=== PATIENT | female | born 2000 | race Caucasian/White ===

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

== ENCOUNTER 2023-07-11 01:42 | Emergency (ER) | payer MEDICAID, SELFPAY ==
[2023-07-11 01:46] VITALS: BP 152/112; PULSE 113; RESP 22; TEMP 36.4; O2SAT 100; BMI 49.0
--- NOTE | 2023-07-11 01:59 | EDS_ITS ---
HPI HPI - Psych History of Present Illness Chief Complaint: Mental Health Detail of Chief Complaint: Anxiety and panic attack. Informant: patient Onset/Context/Timing Onset: Today and Hours Context: Gradual Onset Timing: Continuous Current Severity: Mild Maximum Severity: Moderate Narrative Narrative: 22-year-old female past medical history of panic attacks and anxiety. States that she is currently staying in a women's correction. Tonight while cooking she started getting anxious. Started having numbness and tingling of both her upper and lower extremities and hyperventilating. She says she started to calm down now. She has had prior episodes like this before. Prior similar symptoms: Yes Recent Illness/Hospitalization: No PFSH PFSH Medical History PTSD (post-traumatic stress disorder) Depression Anxiety Home Medications ?Medication ?Instructions ?Recorded ?Last Taken ?Type albuterol sulfate 90 mcg/actuation 1 - 2 puff inhalation Q4H PRN Sob 12/04/17 Unknown History aerosol inhaler (Ventolin HFA) &/Or Wheezing albuterol sulfate 2.5 mg/3 mL 2.5 mg (3 mL) inhalation Q4H PRN 07/01/18 Unknown Rx (0.083 %) solution for nebulization #25 vials albuterol sulfate 90 mcg/actuation 6.7 gm IH Q2H PRN PRN Wheezing ##1 07/01/18 Unknown Rx aerosol inhaler prednisone 20 mg tablet 60 mg (3 x 20 mg) PO DAILY #15 tabs 12/10/18 Unknown Rx Allergy/AdvReac Type Severity Reaction Status Date / Time Penicillins (PCN) Allergy Hives Verified 07/11/23 01:46 Social History Smoking Status: Current every day smoker tobacco type: cigarettes ROS ROS ED ROS Narrative Denies recent illness. Review of Systems ROS Unobtainable: Denies due to encephalopathy Constitutional Constitutional ED: Denies chills or fever(s) Eyes Eyes: Denies blurry vision ENT ENT ED: Denies ear pain Cardiovascular Cardiovascular: Denies chest pain Respiratory/Chest Respiratory/Chest: Denies cough or dyspnea Gastrointestinal Gastrointestinal: Denies abdominal pain Genitourinary Genitourinary ED: Denies dysuria or hematuria Musculoskeletal Musculoskeletal: Denies arthralgias Integumentary Denies abscess Neurologic Neurologic: Denies headache(s) Psychiatric Psychiatric: Reports anxiety Endocrine Endocrinology: Denies polydipsia Hematologic/Lymphatic Hematologic/Lymphatic: Denies easy bleeding Allergic/Immunologic Allergic/Immunologic ED: Denies mouth swelling, tongue swelling or urticaria EXAM Physical Exam Narrative Exam Narrative: Well-appearing 22-year-old female. Vital signs stable afebrile. Initial blood pressure elevated 152/112. I suspect secondary anxiety. H EENT exam unremarkable. Pupils round reactive light. No trauma. Moist weeks membranes. Neck nontender. No lymphadenopathy. Lungs clear to auscultation bilaterally. Heart tachycardic rate of 110 no murmur. Chest wall and ribs nontender. Abdomen soft nontender. Moving all 4 extremities. 5 out of 5 commercial lines sales executive strength bilaterally. Dorsi plantarflexion intact. Nontender. No edema. Back nontender. Neurologically she is awake and alert with no focal motor deficits. Answering questions following commands. She is anxious. Const Vital Signs: 07/11/23 01:46 Temperature 97.5 F L Temperature Source Temporal Pulse Rate 113 H Respiratory Rate 22 H Blood Pressure 152/112 H Blood Pressure Mean 125 Pulse Ox 100 Oxygen Delivery Method Room Air Positive well nourished and well developed; Negative for cachectic, contractures or unkempt General Appearance ED: well developed and NAD; Negative for unkempt, cachectic, contractures or pallor Nutritional Appearance: Negative for cachectic HEENT Reports moist mucous membranes normocephalic and atraumatic; Negative for trauma or tenderness Eyes EOMs intact bilaterally Neck no lymphadenopathy, supple and no JVD General: Negative for tenderness Resp normal respiratory effort and clear to auscultation bilaterally Effort and Inspection: Negative for retractions Auscultation: Negative for rales, rhonchi, wheezes or diminished lung sounds Cardio S1 normal heart sound, S2 normal heart sound and no murmurs Rate: tachycardic; Negative for regular rate or bradycardia Rhythm: regular rhythm; Negative for abnormal rhythm GI non-tender, non-distended and no masses Inspection: Negative for abdominal distention Auscultation: normoactive bowel sounds Palpation: soft; Negative for tender, guarding, hepatomegaly, splenomegaly or mass Bladder / Kidney Exam: No other Back/Spine no CVA tenderness General Back: Negative for CVA tenderness Cervical Spine: Negative for cervical spine tenderness Thoracic Spine / Upper Back: Negative for thoracic spinal tenderness Lumbar Spine / Lower Back: Negative for lumbar spinal tenderness Coccyx: Negative for other Extremity normal to inspection General Extremety ED: Negative for edema or tenderness General Extremity: Negative for edema Neuro oriented x3 and CN's II-XII intact bilaterally Sensorium / Orientation: alert, oriented to person, oriented to place and oriented to time; Negative for orientation impaired, confused, lethargic or stuporous Motor Exam: strength 5/5 throughout Psych mental status grossly normal, thought process normal, cooperative, affect normal and speech normal Appearance: grossly normal; Negative for unkempt Attitude: engaged and No paranoid Activity / Motor Behavior: appropriate eye contact Speech: normal speech Mood & Affect: anxious Thought Process: normal thought process Thought Content: normal thought content Attention / Concentration: attention grossly intact Memory / Cognition: memory grossly intact Insight: insight good Judgement: judgement good Skin General Skin Exam: Negative for jaundice or pallor Lesions: no lesions Rashes: no rashes Trauma: Negative for abrasion Wounds: Negative for amputation MDM MDM MDM Narrative Medical decision making narrative: 22-year-old female history of PTSD anxiety. Having panic attack. She is calming down. Exam is benign. She will be given 1 dose of p.o. Ativan and reassess. I do not think she needs any labs, other workup or imaging. Repeat exam at 2:40 AM patient's anxiety is improving. She is resting comfortable. She is having mild nausea I offered her some Zofran she preferred Protonix to start she was having reflux she will be given that discharged home. Currently there is young male at bedside speaking with her. She is comfortable being discharged home. History & Record Review Discussion w/independent historian: Patient Additional record(s) reviewed:: Prior inpatient record, Prior outpatient record, Prior ED visit and Prior labs Discharge Plan Triage Chief Complaint: Mental Health ED Provider: Tree Crowe Dx/Rx/DC Orders Clinical Impression: Anxiety, Panic attack Instructions: ED Panic Attack Prescriptions: No Action albuterol sulfate [Ventolin HFA] 90 MCG HFA aerosol inhaler 1 - 2 puff inhalation Q4H MDD S PRN (Reason: Sob &/Or Wheezing) albuterol sulfate 6.7 GM HFA aerosol inhaler 6.7 gm IH Q2H PRN PRN (Reason: Wheezing) Qty: 1 1RF albuterol sulfate 2.5 MG/3 ML solution for nebulization 2.5 mg inhalation Q4H PRN Qty: 25 0RF Rx Instructions: Use q4 hours and PRN for wheezing prednisone 20 MG tablet 60 mg PO DAILY Qty: 15 0RF Rx Instructions: With food Primary Care Provider: Tiffany Montana NP Referrals: Counseling,Center [Group of Physicians] - As Needed Tiffany Montana NP, APPLICATION SYSTEMS ARCHITECT-C [Primary Care Provider] - As Needed Activity Restrictions/Additional Instructions: Follow-up with either your primary care provider or the counseling center for evaluation for anxiety. Print Language: Cameroonian Disposition Disposition: Home, Self Care
[2023-07-11] MEDS: LORazepam 1 MG Tablet PO (02:02)
[2023-07-11 02:44] VITALS: BP 135/78; PULSE 93; RESP 18; TEMP 36.6; O2SAT 100
[2023-07-11] MEDS: Pantoprazole Sodium 40 MG Tablet PO (02:48)
== END 2023-07-11 02:50 | disposition home or self-care (01) ==
PROVIDERS: Emergency Provider Emergency Medicine; PCP Nurse Practitioner Primary Care; Visit Provider Emergency Medicine
DX: F41.0 Panic disorder [episodic paroxysmal anxiety] (principal); R06.4 Hyperventilation; F32.A Depression, unspecified; F17.210 Nicotine dependence, cigarettes, uncomplicated; Z79.899 Other long term (current) drug therapy
CPT/HCPCS: 99283; 99285

== ENCOUNTER 2023-07-12 06:24 | Emergency (ER) | payer MEDICAID, SELFPAY ==
[2023-07-12 06:24] VITALS: BP 162/121; PULSE 120; RESP 15; TEMP 35.9; O2SAT 98; BMI 48.8
[2023-07-12] MEDS: chlordiazePOXIDE 25 MG Capsule PO (07:19)
--- NOTE | 2023-07-12 08:28 | EDS_ITS ---
HPI History of Present Illness Chief Complaint: Anxiety Informant: patient Narrative Narrative: Patient is a 22-year-old female with past medical history of anxiety and depression as well as PTSD. She was seen yesterday for similar complaint and at that time was given Ativan which helped improve her symptoms and she was discharged. Patient states that since returning back to the [facility] where she is staying she is had recurrence of symptoms such as a sensation that something bad is going to happen as well as acid reflux and she has had bouts of nausea and feels she is dehydrated. She is concerned about potential alcohol withdrawal as well but will not offer how much she drinks or how long it has been since her last alcohol ingestion PFSH PFS Medical History PTSD (post-traumatic stress disorder) Depression Anxiety Home Medications ?Medication ?Instructions ?Recorded ?Last Taken ?Type albuterol sulfate 90 mcg/actuation 1 - 2 puff inhalation Q4H PRN Sob 12/04/17 Unknown History aerosol inhaler (Ventolin HFA) &/Or Wheezing albuterol sulfate 2.5 mg/3 mL 2.5 mg (3 mL) inhalation Q4H PRN 07/01/18 Unknown Rx (0.083 %) solution for nebulization #25 vials albuterol sulfate 90 mcg/actuation 6.7 gm IH Q2H PRN PRN Wheezing ##1 07/01/18 Unknown Rx aerosol inhaler hydroxyzine HCl 25 mg tablet 25 mg PO 4X/DAY PRN anxiety #40 07/12/23 Unknown Rx tabs Allergy/AdvReac Type Severity Reaction Status Date / Time Penicillins (PCN) Allergy Hives Verified 07/12/23 06:24 Social History Smoking Status: Current every day smoker tobacco type: cigarettes ROS ROS ED Constitutional Constitutional ED: Denies chills or fever(s) ENT ENT ED: Reports sore throat Cardiovascular Cardiovascular: Reports racing heartbeat; Denies chest pain Respiratory/Chest Respiratory/Chest: Denies cough or dyspnea Gastrointestinal Gastrointestinal: Reports nausea; Denies abdominal pain, diarrhea or vomiting Genitourinary Genitourinary ED: Denies dysuria Musculoskeletal Musculoskeletal: Reports myalgias Integumentary Denies rash Neurologic Neurologic: Denies headache(s) Psychiatric Psychiatric: Reports anxiety and depression; Denies suicidal ideation or suicidal thoughts Hematologic/Lymphatic Hematologic/Lymphatic: Denies easy bleeding or easy bruising EXAM Physical Exam Const Vital Signs: 07/12/23 06:24 Temperature 96.7 F L Temperature Source Temporal Pulse Rate 120 H Respiratory Rate 15 Blood Pressure 162/121 H Blood Pressure Mean 134 Pulse Ox 98 Oxygen Delivery Method Room Air Positive well nourished, well developed and obese General Appearance ED: well developed; Negative for pallor Nutritional Appearance: obese HEENT Reports dry mucous membranes HEENT Narrative: Mucous membranes are dry and tacky with out tongue or lip swelling oral lesions airway edema or compromise No secondary findings in the posterior pharynx to suggest infection Mouth ED: Yes dry mucous membranes Mouth: dry mucous membranes Eyes PERRL and EOMs intact bilaterally General Eye ED: Negative for scleral icterus Neck supple Neck Narrative: No nuchal rigidity or meningeal signs noted Resp normal respiratory effort and clear to auscultation bilaterally Cardio regular rhythm Rate: tachycardic and other Other Details: Tachycardic rate with regular rhythm No murmurs rubs or gallops Radial and carotid pulses are equal and symmetric GI normal to inspection, nondistended, normoactive bowel sounds, non-tender and non-distended GI Narrative: No voluntary guarding or rigidity or pulsatile mass or fluid wave Auscultation: normoactive bowel sounds Palpation: soft Back/Spine no CVA tenderness Extremity normal to inspection Extremity Narrative: No asymmetric edema no pitting edema negative Homans' sign bilaterally Neuro oriented x3, CN's II-XII intact bilaterally and no sensory deficits noted Sensorium / Orientation: alert Motor Exam: strength 5/5 throughout Psych Psych Narrative: Patient has a nervous/anxious affect without homicidal or suicidal ideation Skin no rashes or lesions noted and skin turgor normal General Skin Exam: Negative for jaundice or pallor MDM MDM MDM Narrative Medical decision making narrative: Patient arrived to the ER hypertensive and tachycardic but was visibly anxious. She had been seen approximately 24 hours ago for similar complaint and had improvement with Ativan. However as she states the symptoms have returned and she is hypertensive and tachycardic there is possibility for acute blood loss anemia versus electrolyte abnormality or acute kidney injury as the cause of her symptoms. She has not had chest pain she does not have pleuritic chest pain and therefore I do not feel there is a need for a D-dimer she does not have any sign s of respiratory distress and her pulse ox is 90% on room air so I feel no need for chest x-ray. Oral Librium was ordered based on report of potential alcohol withdrawal and Ativan was ordered as well for her anxiety. Patient was also ordered a liter of fluid based on her history and exam. Despite multiple IV attempts 1 could not be established and therefore she was given IM Ativan to help with her anxiety status and laboratory was consulted to draw blood to check for the above changes. At this time she is not homicidal or suicidal she has a CIWA score 5 going against moderate to severe alcohol withdrawal. Her physical exam suggest just mild dehydration. Therefore if her labs do not show signs of severe electro abnormality or acute kidney injury I do not feel there is need for evaluation by psychiatry as she denies homicidal or suicidal ideation and she can be discharged home with symptomatic medications At this time the laboratory studies are still pending so the patient will be signed out to the day physician Dr. Heard Discharge Plan Triage Chief Complaint: Anxiety ED Provider: Daniel Herrera Dx/Rx/DC Orders Clinical Impression: Anxiety, Post traumatic stress disorder Instructions: ED Anxiety Reaction Prescriptions: New hydroxyzine HCl 25 mg tablet 25 mg PO 4X/DAY PRN (Reason: anxiety) Qty: 40 0RF No Action albuterol sulfate [Ventolin HFA] 90 MCG HFA aerosol inhaler 1 - 2 puff inhalation Q4H MDD S PRN (Reason: Sob &/Or Wheezing) albuterol sulfate 6.7 GM HFA aerosol inhaler 6.7 gm IH Q2H PRN PRN (Reason: Wheezing) Qty: 1 1RF albuterol sulfate 2.5 MG/3 ML solution for nebulization 2.5 mg inhalation Q4H PRN Qty: 25 0RF Rx Instructions: Use q4 hours and PRN for wheezing Primary Care Provider: Tiffany Montana NP Referrals: Tiffany Montana NP, [employer] [Primary Care Provider] - Print Language: Upper Sorbian Disposition Disposition: Home, Self Care
[2023-07-12] MEDS: LORazepam 2 MG/ML Syringe IM (08:30)
[2023-07-12 08:37] LABS: Absolute Lymphocyte Count 1.78 X10^3/uL (0.83-4.51); Basophil# 0.04 X10^3/uL; Basophil% 0.5 % (0-1); Eosinophil# 0.07 X10^3/uL; Eosinophils% 0.9 % (0-5); Hematocrit 50.7 % (37-47); Hemoglobin 16.7 g/dL (12.0-15.0); Lymphocyte # 1.78 X10^3/ul (0.83-4.51); Lymphocyte % 23.5 % (19-41); Mean Corp Hgb Conc 32.9 g/dL (32-36); Mean Corpuscular Hgb 31.3 pg (27.0-32.0); Mean Corpuscular Volume 94.9 fL (81-99); Mean Platelet Vol. 10.4 fl (6.2-12.0); Monocyte# 0.68 X10^3/uL; NRBC Flagged by Analyzer 0 % (0-5); Neutrophil # 4.97 X10^3/uL (2.7-7.7); Neutrophil % 65.8 % (47-70); Platelet Count 301 K/mm3 (150-450); RBC Distribution Width CV 13.2 % (11.6-14.6); RBC Distribution Width SD 45.8 fl (35.1-43.9); Red Blood Count 5.34 M/mm3 (4.2-5.4); White Blood Count 7.6 K/mm3 (4.4-11.0)
[2023-07-12 08:50] LABS: Internal QC Validated? YES +Cl - CLEAR BKGD; Pregnancy, Serum, hCG Quali. NEGATIVE Negative
[2023-07-12 09:00] LABS: Anion Gap 13 (5-15); BUN 3 mg/dL (7-18); BUN/Creat Ratio 5.4 RATIO (10-20); Calcium,Total 9.3 mg/dL (8.5-10.1); Chloride 105 mmol/L (98-107); Creatinine, Serum 0.56 mg/dL (0.55-1.02); EST Glomerular Filtration Rate 143 mL/min (>60); Est Glom Filt Rate - Afr Amer 173 mL/min (>60); Estimated Creatinine Clearance 186.37 ml/min; Glucose 96 mg/dL (74-106); Magnesium 1.6 mg/dL (1.6-2.6); Potassium 2.6 mmol/L (3.5-5.1); Sodium Level 138 mmol/L (136-145)
[2023-07-12] MEDS: Pantoprazole Sodium 40 MG Tablet PO (09:19)
[2023-07-12] MEDS: Potassium Chloride Oral Soln 20 MEQ/15 ML UDC 40 MEQ PO (09:38)
[2023-07-12 10:11] VITALS: BP 129/77; PULSE 87; RESP 15; TEMP 36.2; O2SAT 98
== END 2023-07-12 10:14 | disposition home or self-care (01) ==
PROVIDERS: Emergency Provider Emergency Medicine; PCP Nurse Practitioner Primary Care; Visit Provider Emergency Medicine
DX: F41.9 Anxiety disorder, unspecified (principal); F32.A Depression, unspecified; F43.10 Post-traumatic stress disorder, unspecified; E87.6 Hypokalemia; E86.0 Dehydration; R11.0 Nausea; I10 Essential (primary) hypertension; R00.0 Tachycardia, unspecified; F17.210 Nicotine dependence, cigarettes, uncomplicated
CPT/HCPCS: 36415; 80048; 80320; 83735; 84703; 85025; 96372; 99282; J7030; A4216; G0480

== ENCOUNTER 2023-07-19 00:59 | Emergency (ER) | payer MEDICAID, SELFPAY ==
[2023-07-19 01:00] VITALS: BP 149/102; PULSE 118; RESP 24; TEMP 35.8; O2SAT 100
--- NOTE | 2023-07-19 02:04 | RAD_ITS ---
EXAM: XR CHEST, 1 VIEW CLINICAL INDICATION: sob TECHNIQUE: Frontal view of the chest. COMPARISON: Previous chest radiographs of 12/10/2018. FINDINGS: LUNGS AND PLEURAL SPACES: Unremarkable. No consolidation or edema. No pneumothorax. No effusion. Lungs are not hyperinflated. HEART: Upper normal heart size with normal pulmonary vasculature. MEDIASTINUM: Central airways and mediastinal contour are unremarkable. No opaque foreign body is identified. BONES/JOINTS: Unremarkable. No acute fracture. SOFT TISSUES: Unremarkable. RAD/Chest 1 View (Portable) IMPRESSION: No significant interval change. No radiographic evidence of acute cardiopulmonary disease. Electronically Signed: Julian Torres MD at 3:29 EDT ,
--- NOTE | 2023-07-19 02:06 | EDS_ITS ---
HPI History of Present Illness Chief Complaint: Foreign Body Informant: patient and EMS Narrative Narrative: Patient states she is homeless she presents from a retirement saying she started having reflux symptoms in the back of her throat, refluxing water that she had recently drank up into her nose as well as her throat, she feels dehydrated, she states she is having a panic attack now and feeling short of breath she thinks because of that, she denies aspirating water, she swallowed without any difficulty and started having this afterwards. The last thing she ate was a pulled pork sandwich but that was like 8 hours ago. She states she is not eating a lot or drinking a lot of fluids, and she feels like I am dehydrated and the dryness in my mouth is making the reflux worse and preventing me from being able to drink any fluids. [facility] Medical History PTSD (post-traumatic stress disorder) Depression Anxiety Home Medications ?Medication ?Instructions ?Recorded ?Last Taken ?Type albuterol sulfate 90 mcg/actuation 1 - 2 puff inhalation Q4H PRN Sob 12/04/17 Unknown History aerosol inhaler (Ventolin HFA) &/Or Wheezing albuterol sulfate 2.5 mg/3 mL 2.5 mg (3 mL) inhalation Q4H PRN 07/01/18 Unknown Rx (0.083 %) solution for nebulization #25 vials albuterol sulfate 90 mcg/actuation 6.7 gm IH Q2H PRN PRN Wheezing ##1 07/01/18 Unknown Rx aerosol inhaler hydroxyzine HCl 25 mg tablet 25 mg PO 4X/DAY PRN anxiety #40 07/12/23 Unknown Rx tabs potassium chloride 10 mEq 10 meq PO DAILY #7 caps 07/12/23 Unknown Rx capsule,extended release Allergy/AdvReac Type Severity Reaction Status Date / Time Penicillins (PCN) Allergy Hives Verified 07/19/23 01:06 Social History Smoking Status: Current every day smoker tobacco type: cigarettes ROS ROS ED Constitutional Constitutional ED: Denies chills or fever(s) Eyes Eyes: Denies change in vision or diplopia ENT ENT ED: Reports rhinorrhea and sore throat Cardiovascular Cardiovascular: Denies chest pain or palpitations Respiratory/Chest Respiratory/Chest: Reports dyspnea; Denies cough Gastrointestinal Gastrointestinal: Denies abdominal pain, diarrhea, nausea or vomiting Genitourinary Genitourinary ED: Denies dysuria or hematuria Musculoskeletal Musculoskeletal: Denies back pain or neck pain Integumentary Denies abscess or rash Neurologic Neurologic: Denies headache(s), paresthesias or weakness Psychiatric Psychiatric: Reports anxiety; Denies suicidal thoughts EXAM Physical Exam Const Vital Signs: 07/19/23 01:00 07/19/23 01:05 07/19/23 03:00 Temperature 96.4 F L Temperature Source Temporal Pulse Rate 118 H 87 Respiratory Rate 24 H 16 Respiratory Effort Labored Respiratory Pattern Tachypnea Blood Pressure 149/102 H 143/98 H Blood Pressure Mean 117 113 Pulse Ox 100 95 Oxygen Delivery Method Room Air Room Air 07/19/23 04:30 Temperature 97.2 F L Temperature Source Pulse Rate 113 H Respiratory Rate 18 Respiratory Effort Respiratory Pattern Blood Pressure 143/98 H Blood Pressure Mean 113 Pulse Ox 99 Oxygen Delivery Method Positive well nourished, well developed, obese and unkempt General Appearance ED: unkempt, well developed and NAD Nutritional Appearance: obese HEENT Reports moist mucous membranes HEENT Narrative: Posterior oropharynx clear. normocephalic and atraumatic Eyes PERRL and EOMs intact bilaterally Neck full ROM and supple Resp clear to auscultation bilaterally Resp Narrative: Tachypneic. No distress. Cardio regular rate, regular rhythm and no murmurs GI non-tender and non-distended Auscultation: normoactive bowel sounds Palpation: soft Back/Spine no CVA tenderness General Back: other FROM Extremity normal to inspection General Extremety ED: Negative for edema, pulses abnormal or tenderness General Extremity: Negative for edema or pulses abnormal Neuro oriented x3, CN's II-XII intact bilaterally and no sensory deficits noted Sensorium / Orientation: awake and alert Motor Exam: strength 5/5 throughout Psych Appearance: unkempt Mood & Affect: anxious Skin no rashes or lesions noted and no wounds MDM MDM MDM Narrative Medical decision making narrative: Given the patient's dyspnea obtained a 1 view chest x-ray, it is normal in my interpretation. In the meantime I did try to make it easier on the patient by having nurses place an IV and give her some IV fluids, milligram of Ativan, and IV Zofran. She appeared much better after this, her heart rate came down to the 80s. She was able to swallow a GI cocktail which helped, and after that she was able to drink fluids without any difficulty. Patient stated that she was still very anxious although she does not appear to be so. She was adamant that we check her blood pressure again which was 143/98. She then started hyperventilating and the nurses asked her what she was doing. She said that she was trying to get her heart rate to speed up because 80s is abnormal for me. Recent prior visits were cursory reviewed, and it seems alcohol withdrawal was considered. She states she has not had any alcohol in at least a week, and none since her last visit. At this time I do not think she needs any other emergent care, and is stable for discharge back to the retirement. She is ambulatory back and forth to the bathroom without any apparent difficulty or distress. Radiography Diagnostic Testing: Clinical Impression(s) from Imaging Studies Chest X-Ray 07/19/23 02:04 IMPRESSION: No significant interval change. No radiographic evidence of acute cardiopulmonary disease. Electronically Signed: Julian Torres MD at 3:29 EDT , Discharge Plan Triage Chief Complaint: Foreign Body ED Provider: Bry Bravo Dx/Rx/DC Orders Clinical Impression: Anxiety attack, Acid reflux Instructions: ED Panic Attack Prescriptions: No Action albuterol sulfate [Ventolin HFA] 90 MCG HFA aerosol inhaler 1 - 2 puff inhalation Q4H MDD S PRN (Reason: Sob &/Or Wheezing) albuterol sulfate 6.7 GM HFA aerosol inhaler 6.7 gm IH Q2H PRN PRN (Reason: Wheezing) Qty: 1 1RF albuterol sulfate 2.5 MG/3 ML solution for nebulization 2.5 mg inhalation Q4H PRN Qty: 25 0RF Rx Instructions: Use q4 hours and PRN for wheezing hydroxyzine HCl 25 mg tablet 25 mg PO 4X/DAY PRN (Reason: anxiety) Qty: 40 0RF potassium chloride 10 mEq capsule, extended release 10 meq PO DAILY Qty: 7 0RF Primary Care Provider: Tiffany Montana NP Referrals: Tiffany Montana NP, [employer] [Primary Care Provider] - As soon as possible Print Language: Kyrgyz Disposition Disposition: Home, Self Care Discharge Date/Time: 07/19/23 05:24
[2023-07-19] MEDS: 0.9% Normal Saline (1000mL) 1,000 ML 999 ML IV (02:23)
[2023-07-19] MEDS: Ondansetron 4 MG/2 ML Vial IV (02:23)
[2023-07-19] MEDS: LORazepam 2 MG/ML Syringe 1 MG IV (02:24)
[2023-07-19] MEDS: Mag Hydrox/Al Hydrox/Simeth 30 ML UDC PO (02:24)
[2023-07-19] MEDS: Lidocaine 2% Viscous15 ML UDC 15 ML PO (02:24)
[2023-07-19 03:00] VITALS: BP 143/98; PULSE 87; RESP 16; O2SAT 95
[2023-07-19 04:30] VITALS: BP 143/98; PULSE 113; RESP 18; TEMP 36.2; O2SAT 99
== END 2023-07-19 05:24 | disposition left against medical advice (07) ==
PROVIDERS: Emergency Provider Emergency Medicine; PCP Nurse Practitioner Primary Care; Visit Provider Emergency Medicine
DX: F41.9 Anxiety disorder, unspecified (principal); K21.9 Gastro-esophageal reflux disease without esophagitis; F17.210 Nicotine dependence, cigarettes, uncomplicated; Z79.899 Other long term (current) drug therapy; Z59.01 Sheltered homelessness
CPT/HCPCS: 71045; 96361; 96374; 96375; 99282; J7030; A4216; J2405

== ENCOUNTER 2023-07-20 12:56 | Emergency (ER) | payer MEDICAID, SELFPAY ==
[2023-07-20 12:56] VITALS: BP 109/88; PULSE 131; RESP 14; O2SAT 100
[2023-07-20 12:57] VITALS: BP 111/98; PULSE 141; RESP 16; TEMP 37.2; O2SAT 99
--- NOTE | 2023-07-20 13:48 | NURSING ---
NO OLD EKGS
--- NOTE | 2023-07-20 13:53 | EX.ED.SAOD ---
HPI History of Present Illness Chief Complaint: Substance Abuse Informant: patient Narrative Narrative: 22-year-old female presenting to the emergency room wishing detox from alcohol. Patient has tried detox several times. She states the last time was about a year ago and she was doing well to her father kicked her out of the home and she was homeless for several months. She states that while on the streets she turned alcohol. States that she last had heavy use about 2 to 3 days ago. She states she drank some alcohol last evening but only a few ounces of a tall boy. She states she is having nausea and feels dehydrated. Patient is quick to blame the medical system for numerous things in the past. She states that she wants to be sober because it is not healthy for her to keep drinking. She states she is having some visual hallucinations including people and animals. PFSH [facility] Medical History PTSD (post-traumatic stress disorder) Depression Anxiety Home Medications ?Medication ?Instructions ?Recorded ?Last Taken ?Type albuterol sulfate 90 mcg/actuation 1 - 2 puff inhalation Q4H PRN Sob 12/04/17 Unknown History aerosol inhaler (Ventolin HFA) &/Or Wheezing albuterol sulfate 2.5 mg/3 mL 2.5 mg (3 mL) inhalation Q4H PRN 07/01/18 Unknown Rx (0.083 %) solution for nebulization #25 vials albuterol sulfate 90 mcg/actuation 6.7 gm IH Q2H PRN PRN Wheezing ##1 07/01/18 Unknown Rx aerosol inhaler hydroxyzine HCl 25 mg tablet 25 mg PO 4X/DAY PRN anxiety #40 07/12/23 Unknown Rx tabs potassium chloride 10 mEq 10 meq PO DAILY #7 caps 07/12/23 Unknown Rx capsule,extended release hydroxyzine pamoate 25 mg capsule 25 mg PO BID PRN anxiety #10 caps 07/20/23 Unknown Rx (Vistaril) Allergy/AdvReac Type Severity Reaction Status Date / Time Penicillins (PCN) Allergy Hives Verified 07/20/23 12:56 Social History Smoking Status: Current some day smoker tobacco type: cigarettes ROS ROS ED Constitutional Constitutional ED: Reports sweats; Denies chills or weight loss Eyes Eyes: Denies change in vision or diplopia ENT ENT ED: Denies ear pain, rhinorrhea or sore throat Cardiovascular Cardiovascular: Denies chest pain, orthopnea, palpitations or racing heartbeat Respiratory/Chest Respiratory/Chest: Denies cough, dyspnea or orthopnea Gastrointestinal Gastrointestinal: Reports nausea and vomiting; Denies abdominal pain or diarrhea Genitourinary Genitourinary ED: Denies dysuria, hematuria or urinary frequency Musculoskeletal Musculoskeletal: Denies arthralgias, back pain or myalgias Integumentary Denies abscess or rash Neurologic Neurologic: Denies headache(s) or weakness Psychiatric Psychiatric: Reports other Details: Hallucinations ; Denies anxiety, depression, suicidal ideation or suicidal thoughts Endocrine Endocrinology: Denies polydipsia, polyphagia or polyuria Allergic/Immunologic Allergic/Immunologic ED: Denies mouth swelling, tongue swelling or urticaria EXAM Physical Exam Const Vital Signs: 07/20/23 12:56 07/20/23 12:57 07/20/23 14:31 Temperature 99 F 98.9 F Temperature Source Temporal Temporal Pulse Rate 131 H 141 H 122 H Respiratory Rate 14 16 25 H Blood Pressure 109/88 H 111/98 H 127/78 H Blood Pressure Mean 95 102 94 Blood Pressure Source Monitor Pulse Ox 100 99 97 Oxygen Delivery Method Room Air Room Air Room Air 07/20/23 14:56 07/20/23 16:00 Temperature Temperature Source Pulse Rate 112 H 115 H Respiratory Rate 20 H 18 Blood Pressure 126/86 H 112/77 Blood Pressure Mean 99 88 Blood Pressure Source Pulse Ox 100 98 Oxygen Delivery Method Room Air Room Air Positive well nourished, well developed and obese General Appearance ED: well developed and NAD Nutritional Appearance: obese HEENT Reports normocephalic, head/scalp atraumatic and moist mucous membranes Eyes PERRL and EOMs intact bilaterally Neck no lymphadenopathy, supple and no JVD Resp normal respiratory effort and clear to auscultation bilaterally Cardio regular rate, regular rhythm and no murmurs Rate: tachycardic GI normal to inspection, nondistended, normoactive bowel sounds and non-tender Palpation: soft Back/Spine no CVA tenderness and normal ROM Extremity normal to inspection General Extremety ED: Negative for edema General Extremity: Negative for edema Neuro oriented x3 and CN's II-XII intact bilaterally Sensorium / Orientation: alert Motor Exam: strength 5/5 throughout Psych mental status grossly normal Psych Narrative: Patient is hyperalert pressured speech manic in mannerisms Mood & Affect: Negative for depressed or tearful Skin no rashes or lesions noted and no wounds MDM MDM MDM Narrative Medical decision making narrative: Differential diagnosis includes but not limited to alcohol withdrawal dehydration primary dysrhythmia acute psychosis vitamin deficiency White count 11 hemoglobin 16.3. BMP shows a potassium of 3.4 patient. Total bilirubin 1.6. Slight elevation of the AST. INR is normal. test is negative. Urine drug screen is pending sample. Patient received a liter of IV fluids Zofran and Ativan. Plan is admission to hospitalist. Patient requested to speak to the physician. I went and spoke with her again. She is not sure that she can tolerate not being visited by her family or having access to her phone for 3 days. She does not wish to sign the contract for admission for detox. I can refer the patient to 180 but she states that she already has the number and knows the process. She is asked for something for anxiety I will write for some Vistaril. Patient will sign out AGAINST MEDICAL ADVICE. History & Record Review Discussion w/independent historian: Patient Lab Data Attestation: I reviewed the patient's lab results. Labs: Laboratory Results - last 24 hr 07/20/23 07/20/23 07/20/23 13:30 13:30 13:30 WBC 11.0 RBC 5.15 Hgb 16.3 H Hct 49.3 H MCV 95.7 MCH 31.7 MCHC 33.1 RDW Std Deviation 47.8 H RDW Coeff of Jaden 13.4 Plt Count 296 MPV 11.8 Immature Gran % (Auto) 0.400 Neut % (Auto) 72.1 H Lymph % (Auto) 16.7 L Chester % (Auto) 9.8 Eos % (Auto) 0.7 Baso % (Auto) 0.3 Absolute Neuts (auto) 7.9 H Absolute Lymphs (auto) 1.83 Nucleated RBC % 0 PT INR Sodium Cancelled 139 Potassium Cancelled 3.4 L Chloride Cancelled Carbon Dioxide Anion Gap BUN Creatinine Estim Creat Clear Calc Est GFR (MDRD) Af Amer Est GFR (MDRD) Non-Af BUN/Creatinine Ratio Glucose Calcium Magnesium Total Bilirubin AST ALT Alkaline Phosphatase Total Protein Albumin Globulin Albumin/Globulin Ratio Serum , Qual Ethyl Alcohol 07/20/23 07/20/23 07/20/23 13:30 13:30 13:30 WBC RBC Hgb Hct MCV MCH MCHC RDW Std Deviation RDW Coeff of Jaden Plt Count MPV Immature Gran % (Auto) Neut % (Auto) Lymph % (Auto) Chester % (Auto) Eos % (Auto) Baso % (Auto) Absolute Neuts (auto) Absolute Lymphs (auto) Nucleated RBC % PT INR Sodium Potassium Chloride 107 Carbon Dioxide Cancelled 21.0 Anion Gap Cancelled 11 BUN Cancelled Creatinine Estim Creat Clear Calc Est GFR (MDRD) Af Amer Est GFR (MDRD) Non-Af BUN/Creatinine Ratio Glucose Calcium Magnesium Total Bilirubin AST ALT Alkaline Phosphatase Total Protein Albumin Globulin Albumin/Globulin Ratio Serum , Qual Ethyl Alcohol 07/20/23 07/20/23 07/20/23 13:30 13:30 13:30 WBC RBC Hgb Hct MCV MCH MCHC RDW Std Deviation RDW Coeff of Jaden Plt Count MPV Immature Gran % (Auto) Neut % (Auto) Lymph % (Auto) Chester % (Auto) Eos % (Auto) Baso % (Auto) Absolute Neuts (auto) Absolute Lymphs (auto) Nucleated RBC % PT INR Sodium Potassium Chloride Carbon Dioxide Anion Gap BUN 9 Creatinine Cancelled 0.70 Estim Creat Clear Calc Cancelled Est GFR (MDRD) Af Amer Cancelled 133 Est GFR (MDRD) Non-Af Cancelled BUN/Creatinine Ratio Glucose Calcium Magnesium Total Bilirubin AST ALT Alkaline Phosphatase Total Protein Albumin Globulin Albumin/Globulin Ratio Serum , Qual Ethyl Alcohol 07/20/23 07/20/23 07/20/23 13:30 13:30 13:30 WBC RBC Hgb Hct MCV MCH MCHC RDW Std Deviation RDW Coeff of Jaden Plt Count MPV Immature Gran % (Auto) Neut % (Auto) Lymph % (Auto) Chester % (Auto) Eos % (Auto) Baso % (Auto) Absolute Neuts (auto) Absolute Lymphs (auto) Nucleated RBC % PT INR Sodium Potassium Chloride Carbon Dioxide Anion Gap BUN Creatinine Estim Creat Clear Calc Est GFR (MDRD) Af Amer Est GFR (MDRD) Non-Af 110 BUN/Creatinine Ratio Cancelled 12.9 Glucose Cancelled 80 Calcium Cancelled Magnesium Total Bilirubin AST ALT Alkaline Phosphatase Total Protein Albumin Globulin Albumin/Globulin Ratio Serum , Qual Ethyl Alcohol 07/20/23 07/20/23 07/20/23 13:30 13:30 13:30 WBC RBC Hgb Hct MCV MCH MCHC RDW Std Deviation RDW Coeff of Jaden Plt Count MPV Immature Gran % (Auto) Neut % (Auto) Lymph % (Auto) Chester % (Auto) Eos % (Auto) Baso % (Auto) Absolute Neuts (auto) Absolute Lymphs (auto) Nucleated RBC % PT INR Sodium Potassium Chloride Carbon Dioxide Anion Gap BUN Creatinine Estim Creat Clear Calc Est GFR (MDRD) Af Amer Est GFR (MDRD) Non-Af BUN/Creatinine Ratio Glucose Calcium 9.3 Magnesium Cancelled 1.8 Total Bilirubin Cancelled 1.60 H AST Cancelled ALT Alkaline Phosphatase Total Protein Albumin Globulin Albumin/Globulin Ratio Serum , Qual Ethyl Alcohol 07/20/23 07/20/23 07/20/23 13:30 13:30 13:30 WBC RBC Hgb Hct MCV MCH MCHC RDW Std Deviation RDW Coeff of Jaden Plt Count MPV Immature Gran % (Auto) Neut % (Auto) Lymph % (Auto) Chester % (Auto) Eos % (Auto) Baso % (Auto) Absolute Neuts (auto) Absolute Lymphs (auto) Nucleated RBC % PT INR Sodium Potassium Chloride Carbon Dioxide Anion Gap BUN Creatinine Estim Creat Clear Calc Est GFR (MDRD) Af Amer Est GFR (MDRD) Non-Af BUN/Creatinine Ratio Glucose Calcium Magnesium Total Bilirubin AST 51 H ALT Cancelled 42 Alkaline Phosphatase Cancelled 86 Total Protein Cancelled Albumin Globulin Albumin/Globulin Ratio Serum , Qual Ethyl Alcohol 07/20/23 07/20/23 07/20/23 13:30 13:30 13:30 WBC RBC Hgb Hct MCV MCH MCHC RDW Std Deviation RDW Coeff of Jaden Plt Count MPV Immature Gran % (Auto) Neut % (Auto) Lymph % (Auto) Chester % (Auto) Eos % (Auto) Baso % (Auto) Absolute Neuts (auto) Absolute Lymphs (auto) Nucleated RBC % PT INR Sodium Potassium Chloride Carbon Dioxide Anion Gap BUN Creatinine Estim Creat Clear Calc Est GFR (MDRD) Af Amer Est GFR (MDRD) Non-Af BUN/Creatinine Ratio Glucose Calcium Magnesium Total Bilirubin AST ALT Alkaline Phosphatase Total Protein 7.4 Albumin Cancelled 3.3 Globulin Cancelled 4.1 Albumin/Globulin Ratio Cancelled Serum , Qual Ethyl Alcohol 07/20/23 07/20/23 07/20/23 13:30 14:19 15:22 WBC RBC Hgb Hct MCV MCH MCHC RDW Std Deviation RDW Coeff of Jaden Plt Count MPV Immature Gran % (Auto) Neut % (Auto) Lymph % (Auto) Chester % (Auto) Eos % (Auto) Baso % (Auto) Absolute Neuts (auto) Absolute Lymphs (auto) Nucleated RBC % PT Cancelled 14.7 INR Cancelled 1.1 Sodium Potassium Chloride Carbon Dioxide Anion Gap BUN Creatinine Estim Creat Clear Calc Est GFR (MDRD) Af Amer Est GFR (MDRD) Non-Af BUN/Creatinine Ratio Glucose Calcium Magnesium Total Bilirubin AST ALT Alkaline Phosphatase Total Protein Albumin Globulin Albumin/Globulin Ratio 0.8 L Serum , Qual NEGATIVE Ethyl Alcohol < 3.0 EKG Initial EKG: Attestation: I personally reviewed and interpreted this EKG as follows: Comments: Sinus tachycardia ventricular rate of 129 bpm Management Discussion w/another healthcare provider: Hospitalist (Dr. Coreas) Discharge Plan Triage Chief Complaint: Substance Abuse ED Provider: Amari Nicholas Dx/Rx/DC Orders Clinical Impression: Alcohol withdrawal, Vomiting, Dehydration, Tobacco abuse, Anxiety Instructions: ED Withdrawal Alcohol, ED Alcohol Abuse Prescriptions: New hydroxyzine pamoate [Vistaril] 25 mg capsule 25 mg PO BID PRN (Reason: anxiety) Qty: 10 0RF No Action albuterol sulfate [Ventolin HFA] 90 MCG HFA aerosol inhaler 1 - 2 puff inhalation Q4H MDD S PRN (Reason: Sob &/Or Wheezing) albuterol sulfate 6.7 GM HFA aerosol inhaler 6.7 gm IH Q2H PRN PRN (Reason: Wheezing) Qty: 1 1RF albuterol sulfate 2.5 MG/3 ML solution for nebulization 2.5 mg inhalation Q4H PRN Qty: 25 0RF Rx Instructions: Use q4 hours and PRN for wheezing hydroxyzine HCl 25 mg tablet 25 mg PO 4X/DAY PRN (Reason: anxiety) Qty: 40 0RF potassium chloride 10 mEq capsule, extended release 10 meq PO DAILY Qty: 7 0RF Primary Care Provider: Tiffany oMntana PROJECT ENGINEERING MANAGER Referrals: Tiffany Montana PROJECT ENGINEERING MANAGER, PROJECT ENGINEERING MANAGER-C [Primary Care Provider] - Print Language: Bengali Disposition Disposition: Against Medical Advice
[2023-07-20] MEDS: Ondansetron 4 MG/2 ML Vial IV (14:17)
[2023-07-20] MEDS: LORazepam 2 MG/ML Syringe 1 MG IV (14:17)
[2023-07-20] MEDS: 0.9% Normal Saline (1000mL) 1,000 ML 999 ML IV (14:17)
[2023-07-20 14:22] LABS: Absolute Lymphocyte Count 1.83 X10^3/uL (0.83-4.51); Absolute Neutrophil Count 7.9 X10^3/uL (2.0-7.7); Basophil# 0.03 X10^3/uL; Basophil% 0.3 % (0-1); Eosinophil# 0.08 X10^3/uL; Eosinophils% 0.7 % (0-5); Hematocrit 49.3 % (37-47); Hemoglobin 16.3 g/dL (12.0-15.0); Lymphocyte # 1.83 X10^3/ul (0.83-4.51); Lymphocyte % 16.7 % (19-41); Mean Corp Hgb Conc 33.1 g/dL (32-36); Mean Corpuscular Hgb 31.7 pg (27.0-32.0); Mean Corpuscular Volume 95.7 fL (81-99); Mean Platelet Vol. 11.8 fl (6.2-12.0); Monocyte# 1.08 X10^3/uL; Monocyte% 9.8 % (0-10); NRBC Flagged by Analyzer 0 % (0-5); Neutrophil # 7.91 X10^3/uL (2.7-7.7); Neutrophil % 72.1 % (47-70); Platelet Count 296 K/mm3 (150-450); RBC Distribution Width CV 13.4 % (11.6-14.6); RBC Distribution Width SD 47.8 fl (35.1-43.9); Red Blood Count 5.15 M/mm3 (4.2-5.4)
[2023-07-20 14:27] LABS: Internal QC Validated? YES +Cl - CLEAR BKGD; Pregnancy, Serum, hCG Quali. NEGATIVE Negative; Record Kit Lot#, Serum Preg. 735774
[2023-07-20 14:31] VITALS: BP 127/78; PULSE 122; RESP 25; TEMP 37.2; O2SAT 97
[2023-07-20 14:33] LABS: Alcohol, Blood (Medical)-Serum < 3.0 mg/dL
[2023-07-20 14:56] VITALS: BP 126/86; PULSE 112; RESP 20; O2SAT 100
[2023-07-20 15:21] LABS: ALB/GLOB Ratio 0.8 RATIO (0.9-2.4); AST(SGOT) 51 U/L (15-37); Alanine Aminotransfer ALT/SGPT 42 U/L (13-56); Albumin, Serum 3.3 g/dL (3.2-5.0); Alkaline Phosphatase 86 U/L (45-117); Anion Gap 11 (5-15); BUN 9 mg/dL (7-18); BUN/Creat Ratio 12.9 RATIO (10-20); Calcium,Total 9.3 mg/dL (8.5-10.1); Chloride 107 mmol/L (98-107); EST Glomerular Filtration Rate 110 mL/min (>60); Est Glom Filt Rate - Afr Amer 133 mL/min (>60); Globulin 4.1 g/dL (2.2-4.2); Glucose 80 mg/dL (74-106); Magnesium 1.8 mg/dL (1.6-2.6); Potassium 3.4 mmol/L (3.5-5.1); Protein, Total 7.4 g/dL (6.4-8.2); Sodium Level 139 mmol/L (136-145)
[2023-07-20 15:55] LABS: International Normalized Ratio 1.1; Prothrombin Time (Protime)PT. 14.7 SECONDS (11.7-14.9)
[2023-07-20 16:00] VITALS: BP 112/77; PULSE 115; RESP 18; O2SAT 98
[2023-07-20 16:32] VITALS: BP 115/78; PULSE 112; RESP 18; TEMP 36.3; O2SAT 97
== END 2023-07-20 16:33 | disposition left against medical advice (07) ==
PROVIDERS: Emergency Provider Emergency Medicine; PCP Nurse Practitioner Primary Care; Visit Provider Emergency Medicine
DX: F10.239 Alcohol dependence with withdrawal, unspecified (principal); R11.10 Vomiting, unspecified; F17.210 Nicotine dependence, cigarettes, uncomplicated; F41.9 Anxiety disorder, unspecified; E86.0 Dehydration; Z59.00 Homelessness unspecified
CPT/HCPCS: 36415; 80053; 80320; 83735; 84703; 85025; 85610; 93005; 96361; 96374; 96375; 99283; J7030; A4216; G0480; J2405

== ENCOUNTER 2023-07-22 00:19 | Emergency (ER) | payer MEDICAID, SELFPAY ==
[2023-07-22 00:20] VITALS: BP 140/86; PULSE 67; PULSE 68; RESP 16; RESP 17; TEMP 36.3; O2SAT 97; O2SAT 98; BMI 48.2
--- NOTE | 2023-07-22 00:36 | ED.RN ---
This nurse trying to triage pt. Pt stating numerous times that she was not sure if she wanted to sign the contract for the ramp program. stating she was here yesterday and could not do it. This nurse and charge nurse explaining that it is part of the program. Pt changing her story numerous time about when her last drink was, changing story about last time she went through detox and last time she slept. Pt declining to sign contract. This nurse explained that she could not be admitted to program then. Pt then stating she was leaving. Dr. Nicholas updated.
== END 2023-07-22 00:45 | disposition left against medical advice (07) ==
LOC: ED 00:48
PROVIDERS: PCP Nurse Practitioner Primary Care
DX: Z53.21 Procedure and treatment not carried out due to patient leaving prior to being seen by health care provider (principal)
CPT/HCPCS: 99282

== ENCOUNTER 2023-09-16 13:52 | Emergency (ER) | payer MEDICAID, SELFPAY ==
[2023-09-16 13:53] VITALS: BP 137/105; PULSE 99; RESP 16; TEMP 35.3; O2SAT 95; BMI 44.8
--- NOTE | 2023-09-16 15:46 | ED.RN ---
PT. NAME WAS CALLED AT 1541 WITH NO RESPONSE, PT. WAS NOT IN BATHROOM. PT. CAME BACK INSIDE 5 MINUTES LATER AFTER GOING OUTSIDE.
--- NOTE | 2023-09-16 16:52 | EDS_ITS ---
HPI History of Present Illness Chief Complaint: Rash Detail of Chief Complaint: Rash Informant: patient Narrative Narrative: Patient presents to the emergency department complaint of a rash that started 4 days ago. Rash is pruritic. Initially started off with some small patches that now seems to have spread. Patient states that she [place] and [place] couple days ago she was not sure if she came in contact with something. She denies any new soaps or detergents or other allergens. Denies any new medications. Denies recent illness. Denies sore throat. [facility] Medical History PTSD (post-traumatic stress disorder) Depression Anxiety Home Medications ?Medication ?Instructions ?Recorded ?Last Taken ?Type albuterol sulfate 90 mcg/actuation 1 - 2 puff inhalation Q4H PRN Sob 12/04/17 Unknown History aerosol inhaler (Ventolin HFA) &/Or Wheezing albuterol sulfate 2.5 mg/3 mL 2.5 mg (3 mL) inhalation Q4H PRN 07/01/18 Unknown Rx (0.083 %) solution for nebulization #25 vials albuterol sulfate 90 mcg/actuation 6.7 gm IH Q2H PRN PRN Wheezing ##1 07/01/18 Unknown Rx aerosol inhaler hydroxyzine HCl 25 mg tablet 25 mg PO 4X/DAY PRN anxiety #40 07/12/23 Unknown Rx tabs potassium chloride 10 mEq 10 meq PO DAILY #7 caps 07/12/23 Unknown Rx capsule,extended release hydroxyzine pamoate 25 mg capsule 25 mg PO BID PRN anxiety #10 caps 07/20/23 Unknown Rx (Vistaril) folic acid 1 mg tablet 1 mg PO DAILY 07/22/23 Unknown History losartan 50 mg tablet 50 mg PO DAILY 07/22/23 Unknown History metoprolol tartrate 25 mg tablet 25 mg PO BID 07/22/23 Unknown History pregabalin 100 mg capsule 100 mg PO TID 07/22/23 Unknown History hydroxyzine HCl 25 mg tablet 25 mg PO TID PRN itching #10 tabs 09/16/23 Unknown Rx prednisone 20 mg tablet 20 mg PO BID #10 tabs 09/16/23 Unknown Rx Allergy/AdvReac Type Severity Reaction Status Date / Time Penicillins (PCN) Allergy Hives Verified 09/16/23 13:53 Social History Smoking Status: Current some day smoker tobacco type: cigarettes ROS ROS ED Review of Systems ROS Unobtainable: other Constitutional Constitutional ED: Reports lethargy; Denies chills, fever(s), sweats or weight loss Eyes Eyes: Denies blurry vision, change in vision or diplopia ENT ENT ED: Denies rhinorrhea or sore throat Cardiovascular Cardiovascular: Denies chest pain, orthopnea or racing heartbeat Respiratory/Chest Respiratory/Chest: Denies cough, dyspnea, dyspnea on exertion, orthopnea or sputum Gastrointestinal Gastrointestinal: Denies abdominal pain, diarrhea, nausea or vomiting Genitourinary Genitourinary ED: Denies dysuria, hematuria or urinary frequency Musculoskeletal Musculoskeletal: Denies arthralgias, back pain, myalgias or neck pain Integumentary Reports rash; Denies abscess or Abrasions Neurologic Neurologic: Denies headache(s) or weakness Psychiatric Psychiatric: Denies anxiety, depression or suicidal thoughts Endocrine Endocrinology: Denies polydipsia, polyphagia or polyuria Hematologic/Lymphatic Hematologic/Lymphatic: Denies easy bleeding, easy bruising or lymphadenopathy Allergic/Immunologic Allergic/Immunologic ED: Denies mouth swelling, tongue swelling or urticaria EXAM Physical Exam Narrative Exam Narrative: Well-appearing and nontoxic. Const Vital Signs: 09/16/23 13:53 Temperature 95.6 F L Temperature Source Temporal Pulse Rate 99 Respiratory Rate 16 Blood Pressure 137/105 H Blood Pressure Mean 115 Pulse Ox 95 Oxygen Delivery Method Room Air Positive well nourished and well developed General Appearance ED: well developed and NAD HEENT Reports TM's clear and moist mucous membranes normocephalic and atraumatic; Negative for trauma or tenderness Tympanic Membrane ED: Yes TM's clear Eyes PERRL and EOMs intact bilaterally General Eye ED: Negative for pale conjunctiva or scleral icterus Neck no lymphadenopathy, supple and no JVD General: Negative for tenderness Chest Wall inspection of chest normal and palpation of chest normal Chest: Negative for tenderness Resp normal respiratory effort and clear to auscultation bilaterally Effort and Inspection: Negative for respiratory distress or pain with movement Auscultation: Negative for rhonchi, wheezes or diminished lung sounds Cardio regular rate, regular rhythm, S1 normal heart sound, S2 normal heart sound and no murmurs Peripheral Pulses: pulses 2+ throughout GI normal to inspection, nondistended, normoactive bowel sounds, soft to palpation, non-tender, non-distended and no masses Back/Spine no CVA tenderness and no thoracic nor lumbar tenderness Extremity normal to inspection General Extremety ED: Negative for edema General Extremity: Negative for edema Neuro oriented x3, CN's II-XII intact bilaterally, no sensory deficits noted and gait normal Sensorium / Orientation: awake, alert, oriented to person, oriented to place and oriented to time Motor Exam: strength 5/5 throughout and strength abnormal Psych mental status grossly normal Skin no wounds Skin Narrative: Patient with a fine erythematous confluent rash involving the upper and lower extremities as well as the chest and low back. Erythematous slightly raised. Pruritic. No vesicles or petechiae noted. MDM MDM MDM Narrative Medical decision making narrative: Patient presents with a diffuse itchy rash that is erythematous. Etiology uncertain. Suspect possible contact dermatitis. Will start on prednisone and Atarax for itching. Will refer to dermatology for follow-up if symptoms not resolved. Discharge Plan Triage Chief Complaint: Rash ED Provider: Nas Schilling Dx/Rx/DC Orders Clinical Impression: Rash Instructions: Nonspecific Skin Rash, ED Erythema Prescriptions: New prednisone 20 mg tablet 20 mg PO BID Qty: 10 0RF hydroxyzine HCl 25 mg tablet 25 mg PO TID PRN (Reason: itching) Qty: 10 0RF No Action albuterol sulfate [Ventolin HFA] 90 MCG HFA aerosol inhaler 1 - 2 puff inhalation Q4H MDD S PRN (Reason: Sob &/Or Wheezing) albuterol sulfate 6.7 GM HFA aerosol inhaler 6.7 gm IH Q2H PRN PRN (Reason: Wheezing) Qty: 1 1RF albuterol sulfate 2.5 MG/3 ML solution for nebulization 2.5 mg inhalation Q4H PRN Qty: 25 0RF Rx Instructions: Use q4 hours and PRN for wheezing hydroxyzine HCl 25 mg tablet 25 mg PO 4X/DAY PRN (Reason: anxiety) Qty: 40 0RF potassium chloride 10 mEq capsule, extended release 10 meq PO DAILY Qty: 7 0RF hydroxyzine pamoate [Vistaril] 25 mg capsule 25 mg PO BID PRN (Reason: anxiety) Qty: 10 0RF losartan 50 mg tablet 50 mg PO DAILY folic acid 1 mg tablet 1 mg PO DAILY metoprolol tartrate 25 mg tablet 25 mg PO BID pregabalin 100 mg capsule 100 mg PO TID Primary Care Provider: Tiffany Montana NP Referrals: Ronny Quinn MD [Med Staff - Sql Report Writer] - 5-7 Days Tiffany Montana NP, CHAIR MECHANIC-C [Primary Care Provider] - Print Language: Georgian Disposition Disposition: Home, Self Care
[2023-09-16] MEDS: predniSONE 20 MG Tablet 40 MG PO (17:08)
[2023-09-16 17:13] VITALS: BP 155/109; PULSE 88; RESP 16; TEMP 36.8; O2SAT 99
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
[2023-09-16] MEDS: hydrOXYzine 10 MG Tablet PO (17:37)
== END 2023-09-16 17:40 | disposition home or self-care (01) ==
LOC: ED 17:30
PROVIDERS: Emergency Provider Emergency Medicine; PCP Nurse Practitioner Primary Care; Visit Provider Emergency Medicine
DX: R21 Rash and other nonspecific skin eruption (principal); F17.210 Nicotine dependence, cigarettes, uncomplicated; Z79.899 Other long term (current) drug therapy
CPT/HCPCS: 99282

== ENCOUNTER 2023-11-05 02:27 | Emergency (ER) | payer MEDICAID, SELFPAY ==
[2023-11-05 02:29] VITALS: BP 151/97; PULSE 87; RESP 16; TEMP 36.9; O2SAT 94; BMI 40.7
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
--- NOTE | 2023-11-05 03:03 | ED.RN ---
I WAS INFORMED BY THE PATIENT THAT SHE IS HOMELESS AND DOES NOT HAVE A PLACE TO STAY AT TIME. PATIENT PROVIDED W/ RESOURCES IN [facility] SHEET FOUND IN [employer].
[2023-11-05 03:36] LABS: Absolute Lymphocyte Count 3.21 X10^3/uL (0.83-4.51); Absolute Neutrophil Count 2.3 X10^3/uL (2.0-7.7); Basophil# 0.06 X10^3/uL; Basophil% 0.9 % (0-1); Eosinophil# 0.21 X10^3/uL; Eosinophils% 3.2 % (0-5); Hematocrit 46.7 % (37-47); Hemoglobin 15.1 g/dL (12.0-15.0); Lymphocyte # 3.21 X10^3/ul (0.83-4.51); Lymphocyte % 49.2 % (19-41); Mean Corp Hgb Conc 32.3 g/dL (32-36); Mean Corpuscular Hgb 32.1 pg (27.0-32.0); Mean Corpuscular Volume 99.2 fL (81-99); Mean Platelet Vol. 10.3 fl (6.2-12.0); Monocyte% 10.7 % (0-10); NRBC Flagged by Analyzer 0 % (0-5); Neutrophil # 2.33 X10^3/uL (2.7-7.7); Neutrophil % 35.8 % (47-70); Platelet Count 238 K/mm3 (150-450); RBC Distribution Width CV 15.3 % (11.6-14.6); RBC Distribution Width SD 56.4 fl (35.1-43.9); Red Blood Count 4.71 M/mm3 (4.2-5.4); White Blood Count 6.5 K/mm3 (4.4-11.0)
[2023-11-05 03:50] LABS: Alcohol, Blood (Medical)-Serum < 3.0 mg/dL
[2023-11-05 03:52] LABS: Anion Gap 5 (5-15); BUN 10 mg/dL (7-18); BUN/Creat Ratio 17.7 RATIO (10-20); Calcium,Total 8.9 mg/dL (8.5-10.1); Chloride 104 mmol/L (98-107); Creatinine, Serum 0.56 mg/dL (0.55-1.02); EST Glomerular Filtration Rate 140 mL/min (>60); Est Glom Filt Rate - Afr Amer 169 mL/min (>60); Glucose 101 mg/dL (74-106); Potassium 3.2 mmol/L (3.5-5.1); Sodium Level 140 mmol/L (136-145)
[2023-11-05 04:19] LABS: Color, Urine Amber (Yellow); Glucose, Dipstick Normal (Normal); Ketone-Dipstick Negative (Negative); Leukocyte Esterase-Dipstick 500 /ul (Negative); Nitrite-Dipstick Negative (Negative); Occult Blood-Urine 150 /ul (Negative); Protein-Dipstick 30 mg/dl (Negative); Specific Gravity, Urine 1.025 (1.002-1.030); Urine Clarity Sl. Cloudy (Clear); Urine Urobilinogen 4 mg/dl (Normal)
[2023-11-05 04:29] VITALS: BP 143/60; PULSE 79; RESP 16
[2023-11-05 04:43] LABS: Internal QC Validated? YES +Cl - CLEAR BKGD; Pregnancy, Urine Negative Negative
[2023-11-05 04:44] LABS: Amphetamine Urine VISTA POSITIVE (<1000 ng/mL); Barbiturate Urine VISTA NEGATIVE (< 200 ng/mL); Benzodiazepine Urine VISTA NEGATIVE (< 200 ng/mL); Cocaine Urine VISTA NEGATIVE (< 300 ng/mL); Ecstacy Urine VISTA NEGATIVE (< 500 ng/mL); Methadone Urine VISTA NEGATIVE (< 300 ng/mL); PCP Urine VISTA NEGATIVE (< 25 ng/mL); Record Kit Lot#,Urine Preg 772476; THC Urine VISTA NEGATIVE (< 50 ng/mL); Urine Bilirubin Dipstick 1 mg/dL (Negative); Vista UDS pH Range 6; White Blood Cells 10-25 SEEN /hpf (0-5)
[2023-11-05 04:45] LABS: Bacteria 3+ /hpf (None Seen); Mucous, Urine 3+ /hpf (<or=2+); Red Blood Cells-Urine 10-25 SEEN /hpf (0-5); Squamous Epithelial Cells - UA 10-25 SEEN /hpf (5-10)
[2023-11-05] MEDS: Doxycycline 100 MG CAPSULE PO (04:58)
[2023-11-05] MEDS: metroNIDAZOLE 500 MG Tablet PO (04:58)
[2023-11-05] MEDS: Ceftriaxone 500 MG Vial IM (05:11)
[2023-11-05 05:20] VITALS: BP 145/60; PULSE 75; RESP 16; TEMP 36.6; O2SAT 98
--- NOTE | 2023-11-05 05:56 | ED.RN ---
After being discharged, pt was instructed to dress and directed to waiting room. Approximately 15 minutes later, nurses noticed lights were off in room. This nurse to room and pt sleeping in bed still in gown. This nurse instructed pt she needed to depart ED. Pt begins screaming I am fucking exhausted, I need a place to fucking sleep. Informed pt of resources given, and that she would not be permitted to sleep in ED bed as she is discharged. Privacy given for pt to dress. Pt refuses to leave. Security to bedside and escorts pt out of facility and off of property.
== END 2023-11-05 05:33 | disposition home or self-care (01) ==
PROVIDERS: Emergency Provider Emergency Medicine; PCP Family Medicine; Visit Provider Emergency Medicine
DX: N30.01 Acute cystitis with hematuria (principal); F15.10 Other stimulant abuse, uncomplicated; N76.0 Acute vaginitis; F17.210 Nicotine dependence, cigarettes, uncomplicated; F10.10 Alcohol abuse, uncomplicated; Y90.0 Blood alcohol level of less than 20 mg/100 ml; Z59.00 Homelessness unspecified
CPT/HCPCS: 80048; 80307; 81001; 81025; 82077; 85025; 87086; 87491; 87591

== ENCOUNTER 2023-11-05 15:29 | Observation (INO) | payer MEDICAID, SELFPAY ==
[2023-11-05 15:31] VITALS: BP 128/81; PULSE 97; RESP 16; TEMP 36.2; O2SAT 97; BMI 41.2
[2023-11-05 16:30] VITALS: BP 140/85; PULSE 95; RESP 18; O2SAT 98
[2023-11-05 17:00] VITALS: BP 117/67; PULSE 89; RESP 16; O2SAT 98
--- NOTE | 2023-11-05 17:05 | ED.RN ---
Per Dr Crowe no sitter needed. Patient told him that the alcohol is going to kill her. Patient to be admitted to detox unit.
--- NOTE | 2023-11-05 17:07 | EX.ED.SAOD ---
HPI History of Present Illness Chief Complaint: Substance Abuse Informant: patient and parent Onset/Context/Timing Onset: Month(s) Context: Gradual Onset Timing: Intermittent Current Severity: Mild Maximum Severity: Mild Narrative Narrative: 23-year-old female history of schizophrenia, bipolar, PTSD, homeless and polysubstance abuse including alcohol and methamphetamines. Denies any IV drug abuse. Requesting detox. Prior similar symptoms: Yes Recent Illness/Hospitalization: No PFSH [facility] Medical History Schizo affective schizophrenia Bipolar 1 disorder Alcohol abuse PTSD (post-traumatic stress disorder) Depression Anxiety Home Medications ?Medication ?Instructions ?Recorded ?Last Taken ?Type albuterol sulfate 90 mcg/actuation 1 - 2 puff inhalation Q4H PRN Sob 12/04/17 Unknown History aerosol inhaler (Ventolin HFA) &/Or Wheezing albuterol sulfate 2.5 mg/3 mL 2.5 mg (3 mL) inhalation Q4H PRN 07/01/18 Unknown Rx (0.083 %) solution for nebulization #25 vials albuterol sulfate 90 mcg/actuation 6.7 gm IH Q2H PRN PRN Wheezing ##1 07/01/18 Unknown Rx aerosol inhaler hydroxyzine HCl 25 mg tablet 25 mg PO 4X/DAY PRN anxiety #40 07/12/23 Unknown Rx tabs potassium chloride 10 mEq 10 meq PO DAILY #7 caps 07/12/23 Unknown Rx capsule,extended release hydroxyzine pamoate 25 mg capsule 25 mg PO BID PRN anxiety #10 caps 07/20/23 Unknown Rx (Vistaril) folic acid 1 mg tablet 1 mg PO DAILY 07/22/23 Unknown History losartan 50 mg tablet 50 mg PO DAILY 07/22/23 Unknown History metoprolol tartrate 25 mg tablet 25 mg PO BID 07/22/23 Unknown History pregabalin 100 mg capsule 100 mg PO TID 07/22/23 Unknown History hydroxyzine HCl 25 mg tablet 25 mg PO TID PRN itching #10 tabs 09/16/23 Unknown Rx prednisone 20 mg tablet 20 mg PO BID #10 tabs 09/16/23 Unknown Rx albuterol sulfate 90 mcg/actuation 1 - 2 puff inhalation Q4H PRN PRN 11/05/23 Unknown Rx aerosol inhaler (Ventolin HFA) Wheezing ##1 doxycycline monohydrate 100 mg 100 mg PO BID #14 CAPSULES 11/05/23 Unknown Rx capsule metronidazole 500 mg tablet 500 mg PO BID #14 tabs 11/05/23 Unknown Rx Allergy/AdvReac Type Severity Reaction Status Date / Time Penicillins (PCN) Allergy Hives Verified 11/05/23 02:38 Social History Smoking Status: Current some day smoker tobacco type: cigarettes and e-cigarettes ROS ROS ED ROS Narrative Denies recent illness. Constitutional Constitutional ED: Denies fever(s) Eyes Eyes: Denies blurry vision ENT ENT ED: Denies ear pain Cardiovascular Cardiovascular: Denies chest pain Respiratory/Chest Respiratory/Chest: Denies cough Gastrointestinal Gastrointestinal: Denies abdominal pain Genitourinary Genitourinary ED: Denies dysuria Musculoskeletal Musculoskeletal: Denies arthralgias Integumentary Denies abscess Neurologic Neurologic: Denies headache(s) Psychiatric Psychiatric: Reports anxiety Endocrine Endocrinology: Denies cold intolerance Hematologic/Lymphatic Hematologic/Lymphatic: Denies easy bleeding Allergic/Immunologic Allergic/Immunologic ED: Denies mouth swelling EXAM Physical Exam Narrative Exam Narrative: 22-year-old female no acute distress. Sitting upright in bed. Vital signs are stable afebrile. Mom at bedside. H EENT exam unremarkable atraumatic. Neck nontender. Lungs clear to auscultation. Heart regular rate and rhythm no murmur. Rate about 90. Chest wall ribs nontender. Abdomen soft nontender. Moving all 4 extremities. Nontender no edema. No track hinds or abscesses. Back nontender. She is awake and alert no focal motor deficits. Answer questions following commands. No smell of alcohol no signs of acute toxidrome. Const Vital Signs: 11/05/23 15:31 11/05/23 16:30 Temperature 97.2 F L Temperature Source Temporal Pulse Rate 97 95 Respiratory Rate 16 18 Blood Pressure 128/81 H 140/85 H Blood Pressure Mean 96 103 Pulse Ox 97 98 Oxygen Delivery Method Room Air Room Air Positive well nourished, well developed and obese; Negative for cachectic, contractures or unkempt General Appearance ED: well developed and NAD; Negative for unkempt, cachectic, contractures or pallor Nutritional Appearance: obese; Negative for cachectic HEENT Reports moist mucous membranes atraumatic; Negative for trauma or tenderness Eyes PERRL and EOMs intact bilaterally General Eye ED: Negative for pale conjunctiva or scleral icterus Neck no lymphadenopathy, supple and no JVD Thyroid: Negative for tender Lymph Lymphatic: no lymphadenopathy noted Chest Wall inspection of chest normal and palpation of chest normal Resp normal respiratory effort and clear to auscultation bilaterally Cardio regular rate, regular rhythm, S1 normal heart sound, S2 normal heart sound and no murmurs Rate: Negative for bradycardia or tachycardic Rhythm: Negative for abnormal rhythm Bruits: Negative for other GI soft to palpation, non-tender, non-distended and no masses Palpation: Negative for tender, guarding or mass Back/Spine no CVA tenderness General Back: Negative for CVA tenderness Cervical Spine: Negative for cervical spine tenderness Thoracic Spine / Upper Back: Negative for thoracic spinal tenderness Lumbar Spine / Lower Back: Negative for lumbar spinal tenderness Coccyx: Negative for swelling Extremity General Extremety ED: Negative for edema or tenderness General Extremity: Negative for edema Neuro oriented x3 and CN's II-XII intact bilaterally Sensorium / Orientation: alert, oriented to person, oriented to place and oriented to time; Negative for confused, lethargic or stuporous Speech: speech normal Motor Exam: strength 5/5 throughout Psych mental status grossly normal and thought process normal Appearance: Negative for unkempt Attitude: No belligerent, No agitated, No aggressive and No hostile Mood & Affect: Negative for depressed, anxious or tearful Skin General Skin Exam: Negative for jaundice or pallor Lesions: no lesions Rashes: no rashes Trauma: Negative for abrasion MDM MDM MDM Narrative Medical decision making narrative: 23-year-old female with underlying psychiatric illness and polysubstance abuse requesting admission for detox for alcohol abuse. Exam benign. Medically cleared. Hospitalist on page. Labs were done within the last 24 hours so I will not repeat those. History & Record Review Discussion w/independent historian: Patient and Family Additional record(s) reviewed:: Prior inpatient record, Prior outpatient record, Prior ED visit and Prior labs Lab Data Attestation: I reviewed the patient's lab results. Discharge Plan Dx/Rx/DC Orders Clinical Impression: Admitted to alcohol detoxification center, Alcohol abuse, Methamphetamine abuse, History of schizophrenia, History of bipolar disorder Disposition Disposition: Acute Care [facility]
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
[2023-11-05 18:00] VITALS: BP 134/76; PULSE 89; RESP 18; O2SAT 98
[2023-11-05 19:00] VITALS: BP 140/76; PULSE 90; RESP 16; O2SAT 99
[2023-11-05 19:28] VITALS: BMI 41.0
[2023-11-05 20:00] VITALS: BP 126/94; PULSE 92; RESP 18; TEMP 36.8; O2SAT 98
[2023-11-05] MEDS: 0.9% Normal Saline (1000mL) 1,000 ML 50 ML IV (20:47)
[2023-11-05] MEDS: Potassium Chloride Oral Tablet 20 MEQ PO (20:47)
[2023-11-05] MEDS: Doxycycline 100 MG CAPSULE PO (22:06)
[2023-11-05] MEDS: OLANZapine 2.5 MG Tablet 5 MG PO (22:06)
[2023-11-05] MEDS: Famotidine 20 MG Tablet PO (22:06)
[2023-11-05] MEDS: Ondansetron 8 MG Tablet PO (22:06)
[2023-11-05] MEDS: metroNIDAZOLE 500 MG Tablet PO (22:06)
[2023-11-06 03:44] VITALS: BP 121/86; PULSE 82; RESP 18; TEMP 37; O2SAT 97
[2023-11-06 08:01] LABS: Anion Gap 7 (5-15); BUN 5 mg/dL (7-18); BUN/Creat Ratio 13.6 RATIO (10-20); Calcium,Total 8.4 mg/dL (8.5-10.1); Chloride 108 mmol/L (98-107); Creatinine, Serum 0.37 mg/dL (0.55-1.02); EST Glomerular Filtration Rate 230 mL/min (>60); Est Glom Filt Rate - Afr Amer 278 mL/min (>60); Estimated Creatinine Clearance 251.83 ml/min; Glucose 94 mg/dL (74-106); Magnesium 1.8 mg/dL (1.6-2.6); Potassium 3.9 mmol/L (3.5-5.1); Sodium Level 138 mmol/L (136-145)
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
[2023-11-06 08:55] VITALS: BP 131/84; PULSE 90; RESP 16; TEMP 35.9; O2SAT 98
[2023-11-06 08:56] VITALS: BP 131/84; PULSE 90; RESP 16; TEMP 35.9; O2SAT 98
[2023-11-06] MEDS: Doxycycline 100 MG CAPSULE PO ×2 (09:09→21:42)
[2023-11-06] MEDS: Folic Acid 1 MG Tablet PO (09:09)
[2023-11-06] MEDS: Thiamine Hydrochloride 100 MG Tablet PO (09:09)
[2023-11-06] MEDS: Famotidine 20 MG Tablet PO ×2 (09:09→21:42)
--- NOTE | 2023-11-06 11:36 | ADDICTION ---
This show card writer met with PT to conduct ASAM, MSE, AUDIT, DUDIT assessments and to plan for d/c. PT A+Ox4 and participated actively. All assessments completed. PT plans to f/u with [facility] in [place] for follow-up in patient treatment services on Monday if approved. There may be some concerns about her MH dx. They will call to do a screen. [facility] will transport to treatment if approved.
[2023-11-06] MEDS: Ondansetron 8 MG Tablet PO (14:44)
[2023-11-06 14:56] VITALS: BP 134/103; PULSE 77; RESP 16; TEMP 36.8; O2SAT 98
[2023-11-06 16:45] VITALS: BP 141/102; PULSE 75; RESP 16; TEMP 36.8; O2SAT 99
[2023-11-06 21:39] VITALS: BP 136/102; PULSE 79; RESP 18; TEMP 36.9; O2SAT 99
[2023-11-06] MEDS: OLANZapine 2.5 MG Tablet 5 MG PO (21:42)
[2023-11-06] MEDS: traZODone 100 MG Tablet PO (21:46)
[2023-11-06] MEDS: Dicyclomine 10 MG Capsule 20 MG PO (21:46)
[2023-11-07 04:36] VITALS: BP 117/69; PULSE 89; RESP 16; TEMP 36.7; O2SAT 94
[2023-11-07] MEDS: Folic Acid 1 MG Tablet PO (08:39)
[2023-11-07] MEDS: Famotidine 20 MG Tablet PO (08:39)
[2023-11-07] MEDS: Doxycycline 100 MG CAPSULE PO (08:39)
[2023-11-07] MEDS: Thiamine Hydrochloride 100 MG Tablet PO (08:39)
--- NOTE | 2023-11-07 10:29 | CASEMGMT ---
Per manufacture specialist Gauri, patient will be going to [facility] inpatient alcohol and drug treatment today. [facility] will pick patient up today. Staff should not take patient to the main entrance for scrap picker until [facility] calls and says there are at [facility]. CHRISTY will pass this along to patient's RN. SW received a call from patient's grandma stating patient has court today at 1p. She called the courthouse and was told the hospital needs to send a letter verifying patient is in the hospital. CHRISTY let her know CHRISTY will work on this. CHRISTY went to patient's room to confirm she is okay with CHRISTY letting the courts know she is going to inpatient alcohol and drug treatment. Hallie Morales CARD STRIPPER AISHA
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
--- NOTE | 2023-11-07 11:35 | CASEMGMT ---
This CHRISTY and CHRISTY Machado met with patient. Introduced selves and role at [facility]. CHRISTY informed patient that her grandma called in and said she has court today at 1. CHRISTY needs to send a letter to court letting them know patient will not be there and why. CHRISTY asked patient if it is okay for SW to notify the courts that she will not be there for court as she is going to an inpatient alcohol and drug rehab program. Patient said as long as she doesn't get arrested. CHRISTY is not able to promise this. Patient was okay with CHRISTY notifying the courts of her plan. CHRISTY then typed a letter and sent it to [facility] ([phone]) notifying them when patient was admitted and that she is being discharged to an inpatient alcohol and drug rehab program. CHRISTY then faxed the letter. Hallie LEONARD
[2023-11-07 11:48] VITALS: BP 125/92; PULSE 84; RESP 16; TEMP 36.2; O2SAT 97
== END 2023-11-07 12:29 | DRG 775 ==
LOC: ED 18:01 → PCU 11-06 07:07
PROVIDERS: Admitting Provider Internal Medicine; Emergency Provider Emergency Medicine; PCP Family Medicine; Visit Provider Internal Medicine
DX: F10.230 Alcohol dependence with withdrawal, uncomplicated (principal); F15.10 Other stimulant abuse, uncomplicated; F31.9 Bipolar disorder, unspecified; E66.01 Morbid (severe) obesity due to excess calories; Z68.41 Body mass index [BMI] 40.0-44.9, adult; G62.1 Alcoholic polyneuropathy; I10 Essential (primary) hypertension; F17.210 Nicotine dependence, cigarettes, uncomplicated; K21.9 Gastro-esophageal reflux disease without esophagitis; E87.6 Hypokalemia; F17.290 Nicotine dependence, other tobacco product, uncomplicated; A56.8 Sexually transmitted chlamydial infection of other sites; Y90.9 Presence of alcohol in blood, level not specified; Z59.00 Homelessness unspecified; Z79.899 Other long term (current) drug therapy; N30.01 Acute cystitis with hematuria; N76.0 Acute vaginitis
CPT/HCPCS: 80048; 80307; 81001; 81025; 82077; 83735; 84443; 85025; 87086; 87088; 87491; 87591; 99221; 99282; 99285; J7030; A4216; G0378

== ENCOUNTER 2023-11-27 16:53 | Emergency (ER) | payer MEDICAID, SELFPAY ==
[2023-11-27] VITALS (8 sets, daily range): BP systolic 111–136; BP diastolic 63–79; PULSE 109–118; RESP 16–23; TEMP 37; O2SAT 96–98; BMI 43.5
--- NOTE | 2023-11-27 17:20 | EDS_ITS ---
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 Patient apparently was in peoples yards acting bizarrely. Patient was screaming and yelling at people. Brought in for psychologic evaluation. Patient refusing to answer questions and not cooperative. She does have known history of bipolar disorder and schizophrenia. [facility] Medical History Schizo affective schizophrenia Bipolar 1 disorder Alcohol abuse PTSD (post-traumatic stress disorder) Depression Anxiety Home Medications ?Medication ?Instructions ?Recorded ?Last Taken ?Type albuterol sulfate 90 mcg/actuation 1 - 2 puff inhalation Q4H PRN Sob 12/04/17 Unknown History aerosol inhaler (Ventolin HFA) &/Or Wheezing albuterol sulfate 90 mcg/actuation 6.7 gm IH Q2H PRN PRN Wheezing ##1 07/01/18 Unknown Rx aerosol inhaler folic acid 1 mg tablet 1 mg PO DAILY 07/22/23 Unknown History losartan 50 mg tablet 50 mg PO DAILY 07/22/23 Unknown History pregabalin 100 mg capsule 100 mg PO TID 07/22/23 Unknown History albuterol sulfate 90 mcg/actuation 1 - 2 puff inhalation Q4H PRN PRN 11/05/23 Unknown Rx aerosol inhaler (Ventolin HFA) Wheezing ##1 famotidine 20 mg tablet 20 mg PO BID #60 tabs 11/07/23 Unknown Rx olanzapine 2.5 mg tablet 5 mg (2 x 2.5 mg) PO QHS #30 tabs 11/07/23 Unknown Rx ondansetron HCl 8 mg tablet 8 mg PO Q8H PRN PRN Nausea #42 tabs 11/07/23 Unknown Rx hydroxyzine HCl 50 mg tablet 50 mg PO Q8H PRN PRN anxiety 11/27/23 Unknown History metoprolol succinate 25 mg 25 mg PO BID 11/27/23 Unknown History tablet,extended release 24 hr omeprazole 40 mg capsule,delayed 40 mg PO DAILY 11/27/23 Unknown History release Allergy/AdvReac Type Severity Reaction Status Date / Time Penicillins (PCN) Allergy Hives Verified 11/27/23 16:59 Social History Smoking Status: Current some day smoker tobacco type: cigarettes and e-cigarettes ROS ROS ED Review of Systems ROS Unobtainable: other Constitutional Constitutional ED: Reports lethargy; Denies chills, fever(s), sweats or weight loss Eyes Eyes: Denies blurry vision, change in vision or diplopia ENT ENT ED: Denies rhinorrhea or sore throat Cardiovascular Cardiovascular: Reports chest pain and racing heartbeat; Denies orthopnea Respiratory/Chest Respiratory/Chest: Denies cough, dyspnea, dyspnea on exertion, orthopnea or sputum Gastrointestinal Gastrointestinal: Denies abdominal pain, diarrhea, nausea or vomiting Genitourinary Genitourinary ED: Denies dysuria, hematuria or urinary frequency Musculoskeletal Musculoskeletal: Denies arthralgias, back pain, myalgias or neck pain Integumentary Denies abscess, Abrasions or rash Neurologic Neurologic: Denies headache(s) or weakness Psychiatric Psychiatric: Reports other Details: Abnormal behavior, agitation ; Denies anxiety, depression or suicidal thoughts Endocrine Endocrinology: Denies polydipsia, polyphagia or polyuria Hematologic/Lymphatic Hematologic/Lymphatic: Denies easy bleeding, easy bruising or lymphadenopathy Allergic/Immunologic Allergic/Immunologic ED: Denies mouth swelling, tongue swelling or urticaria EXAM Physical Exam Const Vital Signs: 11/27/23 16:53 11/27/23 17:16 11/27/23 17:49 Temperature 98.6 F Temperature Source Temporal Pulse Rate 109 H 110 H Respiratory Rate 18 23 H Blood Pressure Blood Pressure Mean Pulse Ox 97 Oxygen Delivery Method Room Air Room Air 11/27/23 18:00 11/27/23 18:15 11/27/23 19:00 Temperature Temperature Source Pulse Rate 112 H 112 H Respiratory Rate 20 H 18 Blood Pressure 136/79 H 111/63 112/67 Blood Pressure Mean 95 78 82 Pulse Ox 96 98 Oxygen Delivery Method Room Air Room Air 11/27/23 20:00 11/27/23 20:26 Temperature Temperature Source Pulse Rate 118 H Respiratory Rate 18 16 Blood Pressure 132/67 H Blood Pressure Mean 88 Pulse Ox 98 Oxygen Delivery Method Room Air Positive well nourished and well developed General Appearance ED: well developed, irritable and NAD HEENT Reports TM's clear and moist mucous membranes normocephalic and atraumatic; Negative for trauma or tenderness Tympanic Membrane ED: Yes TM's clear Eyes PERRL and EOMs intact bilaterally General Eye ED: Negative for pale conjunctiva or scleral icterus Neck no lymphadenopathy, supple and no JVD General: Negative for tenderness Chest Wall inspection of chest normal and palpation of chest normal Chest: Negative for tenderness Resp normal respiratory effort and clear to auscultation bilaterally Effort and Inspection: Negative for respiratory distress or pain with movement Auscultation: Negative for rhonchi, wheezes or diminished lung sounds Cardio regular rate, regular rhythm, S1 normal heart sound, S2 normal heart sound and no murmurs Peripheral Pulses: pulses 2+ throughout GI normal to inspection, nondistended, normoactive bowel sounds, soft to palpation, non-tender, non-distended and no masses Back/Spine no CVA tenderness and no thoracic nor lumbar tenderness Extremity normal to inspection General Extremety ED: Negative for edema General Extremity: Negative for edema Neuro oriented x3, CN's II-XII intact bilaterally, no sensory deficits noted and gait normal Sensorium / Orientation: awake, alert, oriented to person, oriented to place and oriented to time Motor Exam: strength 5/5 throughout and strength abnormal Psych Negative for mental status grossly normal Appearance: grossly normal Attitude: paranoid, bizarre, uncooperative and agitated Activity / Motor Behavior: psychomotor agitation Speech: pressured Mood & Affect: irritable and labile affect Thought Process: confabulating, flight of ideas, illogical, loose associations, perseverating, tangential and racing thoughts Skin no rashes or lesions noted and no wounds MDM MDM MDM Narrative Medical decision making narrative: Patient presents to the emergency department belligerent via police escort. Has history of schizophrenia and illicit drug use with amphetamines. Patient was uncooperative and had to be placed in 4 point restraints. Patient was belligerent and aggressive. She was then sedated with Haldol and Ativan. Basic labs obtained CBC with differential showed a white count of 6.9 with hemoglobin 13.3 and platelet count of 226. Chemistries unremarkable. Talk screen positive for amphetamines as well as MDMA. Alcohol was negative. Patient was evaluated by crisis and she was familiar to them. Patient will be placed to psychiatric facility for definitive care. She admitted to using amphetamines to [employer] worker and admitted to not taking her Zyprexa like she is supposed to Lab Data Attestation: I reviewed the patient's lab results. Labs: Laboratory Results - last 24 hr 11/27/23 11/27/23 18:25 19:56 WBC 6.9 RBC 4.07 L Hgb 13.3 Hct 40.4 MCV 99.3 H MCH 32.7 H MCHC 32.9 RDW Std Deviation 49.9 H RDW Coeff of Jaden 13.5 Plt Count 226 MPV 10.9 Immature Gran % (Auto) 0.400 Neut % (Auto) 60.6 Lymph % (Auto) 27.9 Edgar % (Auto) 8.6 Eos % (Auto) 2.2 Baso % (Auto) 0.3 Absolute Neuts (auto) 4.2 Absolute Lymphs (auto) 1.92 Nucleated RBC % 0 Platelet Estimate ADEQUATE RBC Morphology N CHROM Anisocytosis RARE Macrocytosis RARE Sodium 138 Potassium 2.8 L Chloride 106 Carbon Dioxide 25.0 Anion Gap 6 BUN 9 Creatinine 0.41 L Estim Creat Clear Calc 235.41 Est GFR (MDRD) Af Amer 246 Est GFR (MDRD) Non-Af 204 BUN/Creatinine Ratio 22.1 H Glucose 96 Calcium 9.3 Serum , Qual NEGATIVE Urine Opiates Screen NEGATIVE Urine Methadone Screen NEGATIVE Ur Barbiturates Screen NEGATIVE Ur Phencyclidine Scrn NEGATIVE Ur Amphetamines Screen POSITIVE H MDMA (Ecstasy) Screen POSITIVE H U Benzodiazepines Scrn NEGATIVE Urine Cocaine Screen NEGATIVE U Cannabinoids Screen NEGATIVE Ur Drug Screen Comment Ethyl Alcohol < 3.0 Discharge Plan Triage Chief Complaint: Mental Health ED Provider: Nas Schilling Dx/Rx/DC Orders Clinical Impression: Schizophrenia, Methamphetamine use Prescriptions: No Action albuterol sulfate [Ventolin HFA] 90 MCG HFA aerosol inhaler 1 - 2 puff inhalation Q4H MDD S PRN (Reason: Sob &/Or Wheezing) albuterol sulfate 6.7 GM HFA aerosol inhaler 6.7 gm IH Q2H PRN PRN (Reason: Wheezing) Qty: 1 1RF losartan 50 mg tablet 50 mg PO DAILY folic acid 1 mg tablet 1 mg PO DAILY pregabalin 100 mg capsule 100 mg PO TID famotidine 20 mg Tablet 20 mg PO BID Qty: 60 0RF olanzapine 2.5 mg Tablet 5 mg PO QHS Qty: 30 0RF ondansetron HCl 8 mg Tablet 8 mg PO Q8H PRN PRN (Reason: Nausea) Qty: 42 0RF albuterol sulfate [Ventolin HFA] 90 mcg/actuation HFA aerosol inhaler 1 - 2 puff inhalation Q4H PRN PRN (Reason: Wheezing) Qty: 1 0RF hydroxyzine HCl 50 mg tablet 50 mg PO Q8H PRN PRN (Reason: anxiety) omeprazole 40 mg capsule,delayed release(DR/EC) 40 mg PO DAILY metoprolol succinate 25 mg tablet extended release 24 hr 25 mg PO BID Primary Care Provider: Anthony Shepard Referrals: Anthony Shepard MD [Primary Care Provider] - Print Language: Slovenian Disposition Disposition: Psychiatric Hospital or Unit
[2023-11-27] MEDS: LORazepam 2 MG/ML Syringe 1 MG IM (17:26)
[2023-11-27] MEDS: Haloperidol Lactate 5 MG/ML Vial 10 MG IM (17:26)
--- NOTE | 2023-11-27 17:39 | ED.RN ---
1710: PT. WAS ENCOURAGED AND OFFERED ASSISTANCE INTO HOSPITAL GOWN BY THIS NURSE, Jaren VALDES, BUT REFUSED MULTIPLE TIMES. PT. CONTINUED TO RAMBLE AND INCREASE IN AGITATION. OFFICER MAREN AT BEDSIDE AND ED SECURITY. Jaren COLE ATTEMPTED VITAL SIGNS AGAIN W/ NO COOPERATION BY THE PATIENT. 1712: PROVIDER AT BEDSIDE TO ASSESS PT. AND SITUATION. 1715: ANOTHER ATTEMPT WAS MADE BY STAFF MEMBERS TO ASSIST PT. INTO GOWN AND OBTAIN VITAL SIGNS, BUT PATIENT REFUSED. AT THIS TIME STAFF MEMBERS LEFT THE ROOM WAITING FOR ORDERS FOR THE PROVIDER. PT. BEGAN TO REMOVE CLOTHING W/ THE DOOR OPEN. PRIVACY PROVIDED AND PT. CHANGED INTO HOSPITAL GOWN AND NON-SLIP SOCKS. 1718: CONTINUED YELLING AND AGITATION BY THE PT. REFUSED TO RETURN TO THE BED WHILE WALKING TOWARDS THE DOORWAY. AT THIS TIME SHE BEGAN TO YELL I AM LEAVING. OFFICER AND SECURITY AT BEDSIDE 1729: RESTRAINTS APPLIED FOR STAFF AND PT. SAFETY.
[2023-11-27 18:44] LABS: Absolute Lymphocyte Count 1.92 X10^3/uL (0.83-4.51); Absolute Neutrophil Count 4.2 X10^3/uL (2.0-7.7); Basophil# 0.02 X10^3/uL; Basophil% 0.3 % (0-1); Eosinophil# 0.15 X10^3/uL; Eosinophils% 2.2 % (0-5); Hematocrit 40.4 % (37-47); Hemoglobin 13.3 g/dL (12.0-15.0); Lymphocyte # 1.92 X10^3/ul (0.83-4.51); Lymphocyte % 27.9 % (19-41); Mean Corp Hgb Conc 32.9 g/dL (32-36); Mean Corpuscular Hgb 32.7 pg (27.0-32.0); Mean Corpuscular Volume 99.3 fL (81-99); Mean Platelet Vol. 10.9 fl (6.2-12.0); Monocyte# 0.59 X10^3/uL; Monocyte% 8.6 % (0-10); NRBC Flagged by Analyzer 0 % (0-5); Neutrophil # 4.17 X10^3/uL (2.7-7.7); Neutrophil % 60.6 % (47-70); POSITIVE COUNT YES; Platelet Count 226 K/mm3 (150-450); RBC Distribution Width CV 13.5 % (11.6-14.6); RBC Distribution Width SD 49.9 fl (35.1-43.9); Red Blood Count 4.07 M/mm3 (4.2-5.4); White Blood Count 6.9 K/mm3 (4.4-11.0)
[2023-11-27 18:47] LABS: Differential Indicated SCAN CRITERIA MET
[2023-11-27 18:48] LABS: Internal QC Validated? YES +Cl - CLEAR BKGD; Pregnancy, Serum, hCG Quali. NEGATIVE Negative
[2023-11-27 18:51] LABS: Alcohol, Blood (Medical)-Serum < 3.0 mg/dL
[2023-11-27 18:52] LABS: Anion Gap 6 (5-15); BUN 9 mg/dL (7-18); BUN/Creat Ratio 22.1 RATIO (10-20); Calcium,Total 9.3 mg/dL (8.5-10.1); Chloride 106 mmol/L (98-107); Creatinine, Serum 0.41 mg/dL (0.55-1.02); EST Glomerular Filtration Rate 204 mL/min (>60); Est Glom Filt Rate - Afr Amer 246 mL/min (>60); Estimated Creatinine Clearance 235.41 ml/min; Glucose 96 mg/dL (74-106); Potassium 2.8 mmol/L (3.5-5.1); Sodium Level 138 mmol/L (136-145)
[2023-11-27 19:26] LABS: Anisocytosis RARE; Platelet Estimate ADEQUATE (ADEQ); Red Cell Morphology N CHROM NORMAL (NORM C&C)
[2023-11-27 19:27] LABS: Macrocytosis RARE
[2023-11-27 20:34] LABS: Amphetamine Urine VISTA POSITIVE (<1000 ng/mL); Barbiturate Urine VISTA NEGATIVE (< 200 ng/mL); Benzodiazepine Urine VISTA NEGATIVE (< 200 ng/mL); Cocaine Urine VISTA NEGATIVE (< 300 ng/mL); Ecstacy Urine VISTA POSITIVE (< 500 ng/mL); Methadone Urine VISTA NEGATIVE (< 300 ng/mL); PCP Urine VISTA NEGATIVE (< 25 ng/mL); THC Urine VISTA NEGATIVE (< 50 ng/mL); Vista UDS pH Range 5
--- NOTE | 2023-11-27 20:55 | ED.RN ---
[facility] CALLED AND CHART FAXED
--- NOTE | 2023-11-27 22:30 | ED.RN ---
2156: Provider asked about behavioral health holding order set. Provider response Nothing seems emergent at this time. Hold off
--- NOTE | 2023-11-27 22:55 | ED.RN ---
[facility] CALL[facility] W/ UPDATE. PT. REFERRED TO [facility].
--- NOTE | 2023-11-27 23:48 | ED.RN ---
JOVITA FROM [facility] CALLED TO CHECK ON PT. STATUS FOR ACCEPTANCE. THEY ARE REQUESTING A CK LEVEL AND EKG. PROVIDER NOTIFIED
--- NOTE | 2023-11-27 23:53 | ED.RN ---
I SPOKE ARCHIE FROM [facility]. PT ACCEPTED BY DOCTOR JAYESH, UNIT 2.
[2023-11-28] MEDS: Potassium Chloride Oral Tablet 20 MEQ 60 MEQ PO (00:13)
[2023-11-28 05:44] VITALS: BP 110/64; PULSE 100; RESP 18; O2SAT 95
[2023-11-28 05:45] VITALS: BP 110/64; PULSE 100; RESP 16; TEMP 36.6; O2SAT 95
== END 2023-11-28 09:08 ==
LOC: ED 23:50
PROVIDERS: Emergency Provider Emergency Medicine; PCP Family Medicine; Visit Provider Emergency Medicine
DX: F25.0 Schizoaffective disorder, bipolar type (principal); F15.90 Other stimulant use, unspecified, uncomplicated; F17.210 Nicotine dependence, cigarettes, uncomplicated; F17.290 Nicotine dependence, other tobacco product, uncomplicated; Z79.899 Other long term (current) drug therapy
CPT/HCPCS: 82550; 36415; 80048; 80307; 82077; 84703; 85025; 93005; 96372; 99285

== ENCOUNTER 2023-12-06 00:51 | Emergency (ER) | payer MEDICAID, SELFPAY ==
[2023-12-06 00:52] VITALS: BP 164/103; PULSE 91; RESP 16; TEMP 36.6; O2SAT 100; BMI 96.5
--- NOTE | 2023-12-06 01:20 | ED.RN ---
PT TIRED OF WAITING. AMBULATES OUT OF DEPARTMENT.
--- OUTSIDE RECORDS SUMMARY | 2023-12-06 01:23 | XMS RPT_ITS | CCD ---
Author Organization [facility] Care Team Providers Care Sports Physician Name Role Phone Leobardo AZAR, Anthony Lan Primary Care Provider O[facility], [facility] [place] [facility] Primary Car e Provider MD Geovany [place] Emergency Provider [phone] Doctor, ED Emergency Provider Unavailable AA NO PCP, NO PCP Primary Care Unavailable HELLER DO~[id number], RAYO COATS J Admit ting Unavailable HELLER DO~[id number], RAYO COATS J Atten ding Unavailable JAS TAO Primary Care Unavailable POLLOCK DO~[id number], POLLOCK LATOSHA A Admitting Unavailable GONZALEZ DO~[id number], GONZALEZ MADIHA A Attendin g Unavailable HENRI TAO Primary Care Unavailable GODMAN DO~[id number], GODMAN TODD A Admitting Unavailable GODMAN DO~[id number], ROSELYN SILVERIODNEY A Attending Unavailable ADRIENNE AZAR~[id number], ADRIENNE Walters Admitting Unavailable ADRIENNE AZAR~[id number], ADRIENNE Walters Attending Unavailable AA NO PCP, NO PCP Primary Care Unavailable JAS TAO Primary Care Unavailable GODMAN DO~[id number], GODMAN TODD A Admitting Unavailable GODMAN DO~[id number], GODMAN TODD A Attending Unavailable AA NO PCP, NO PCP Primary Care Unavailable ADRIENNE AZAR~[id number], ADRIENNE Walters Admitting Unavailable ADRIENNE AZAR~[id number], ADRIENNE Walters Attending Unavailable Doctor, ED Attending Unavailable O[facility]rimary Care, [facility] [place] [facility] Primary Car e Unavailable Zachary Armenta Attending Unavailable OCPrimary Care, [facility] [place] [facility] Primary Car e Unavailable Anthony Booth Primary Care Provider [phone] LEOBARDOANTHONY ESCALANTE Primary Care Unavailabl DANNY Landry Attending Unavailable LEOBARDO, ANTHONY PIPER Primary Care Unavailabl EASTON Calles Admitting Unavailable LUKAS YOO Attending Unavailable DELILAH RAI Unavailable LEOBARDOANTHONY ESCALANTE Primary Care Unavailabl e LEOBARDO, ANTHONY PIPER Primary Care Unavailabl e CHARLY IRVING JR Attending Reagan CALDERON MD, DR MARIXA Nelson Primary Care Physician Briana CALDERON MD, DR MARIXA Nelson Primary Care Unavailable ANAMARIA AZAR, DR WEINER Attending Unavailtorito MCGEE MD, SKIP Attending Unavailable KVNG AZAR, DR MARIXA Nelson Primary Care Unavailable ANTHONY BOOTH Primary Care Unavailable ANTHONY BOOTH Attending Unavailable ANTHONY BOOTH Primary Care Unavailable ANTHONY BOOTH Attending Unavailable LEOBARDO, ANTHONY Primary Care Unavailable ANTHONY BOOTH Attending Unavailable BILLIE SPEARS Attending Unavailable LEOBARDO, ANTHONY Primary Care Unavailable Allergies Allergy Classification Reported Allergen(s) Allergy Type Date of Onset Reaction(s) Facility (16 sources) Penicillins; Translations: [PENICILLINS] Drug Allergy 3 [facility] (1 source) Penicillin Drug Allergy [facility] Repository (1 source) Penicillins Drug allergy (disorder) 4 [facility] ([place] Repository (1 source) Penicillins Propensity to adverse reactions 3 [facility] (2 sources) Penicillin; Translations: [penicillins] Drug Allergy Hives, Rash [facility] Medications Current Medications Medication Drug Class(es) Dates Sig (Normalized) Sig (Original) [id number] 200 actuat albuterol 0.09 mg/actuat metered dose inhaler (20 sources) beta2-Adrenergic Agonist Start: 08-28-2023 take 2 puff(s) by inhalation every six hours as needed for wheezing albuterol 108 (90 Base) MCG/ACT inhaler Inhale 2 puffs every 6 hours as needed for wheezing. 18 g 2 08/28/2023 Active Start: 04-25-2023 albuterol (2.5 MG/3ML) 0.083% nebulizer solution Take 3 mL (2.5 mg) by nebulization every 6 hours as needed for wheezing. 360 mL 04/25/2023 Active Start: 04-07-2023 Albuterol Acti ve 90 MCG IH As Needed April 07, 2023 12:00am Start: 03-21-2023 End: 06-19-2023 take 2 puff(s) by inhalation every six hours as needed for wheezing albuterol 108 (90 Base) MCG/ACT inhaler Inhale 2 puffs every 6 hours as needed for wheezing. 1 each 1 06/19/2023 Active Start: 01-17-2019 albuterol (PRO VENTIL) 2.5 mg /3 mL (0.083 %) nebulizer solution Indications: LRTI (lower respiratory tract infection) , Moderate persistent asthma with (acute) exacerbation Use 3 mL via nebulizer every 4 hours as needed for Wheezing/Shortness of Breath. 30 Vial 0 01/17/2019 Active Start: 12-12-2018 take 2 puff(s) by in halation every six hours as needed for wheezing PROAIR RESPICLICK 90 mcg/actuation aepb Inhale 2 Puffs as instructed every 6 hours as needed for Wheezing/Shortness of Breath. 0 12/12/2018 Active Start: 03-17-2015 albuterol Inha lation Soln 2.5 mg/0.5 mL Start Date: 03/17/15 Status: Ordered albuterol MDI (90 mcg/inh) CFC free inhalation aerosol (2 sources) Start: 03-17-2015 take 1 puff(s) by inhalation every four hours as needed for wheezing albuterol MDI (90 mcg/inh) CFC free inhalation aerosol 1 puff(s), Inhalation, q4h, PRN as needed for wheezing Start Date: 03/17/15 Status: Ordered 24 hr amphetamine aspartate 5 mg / amphetamine sulfate 5 mg / dextroamphetamine saccharate 5 mg / dextroamphetamine sulfate 5 mg extended release oral capsule (1 source) Central Nervous System Stimulant Start: 12-12-2018 take 1 capsule by mouth once daily amphetamine-dext roamphetamine XR (ADDERALL XR) 20 mg 24 hr capsule Take 1 capsule by mouth once daily. 0 12/12/2018 Active 12 hr dextromethorphan hydrobromide 30 mg / guaiFENesin 600 mg extended release oral tablet (1 source) Uncompetitive Z-gdtneo-J-aspartat e Receptor Antagonist, Sigma-1 Agonist Start: 01-17-2019 take 1 tablet by mouth twice daily dextromethorphan -guaiFENesin (MUCINEX DM) 30-600 mg per tablet Indications: LRTI (lower respiratory tract infection) Take 1 tablet by mouth twice daily. 30 tablet 0 01/17/2019 Active escitalopram 10 mg oral tablet (1 source) Serotonin Reuptake Inhibitor Start: 12-12-2018 take 1 tablet by mouth once daily escitalopram oxalate (LEXAPRO) 10 mg tablet Take 1 tablet by mouth once daily. 0 12/12/2018 Active 120 actuat fluticasone propionate 0.11 mg/actuat metered dose inhaler (1 source) Corticosteroid Start: 12-12-2018 take 2 puff(s) by inhalation twice daily fluticasone (FLOVENT) 110 mcg/actuation inhaler Inhale 2 Puffs as instructed twice daily. 0 12/12/2018 Active folic acid 1 mg oral tablet (17 sources) Start: 03-21-2023 End: 07-10-2023 take 1 tablet by mouth once daily folic acid (Folvite) 1 MG tablet Take 1 tablet (1 mg) by mouth daily. 30 tablet 2 03/21/2023 Active lactulose 667 mg/ml oral solution (1 source) Osmotic Laxative Start: 03-22-2004 LACTULOSE 10 GM/15 ML SYRUP Indications: Constipation 1 oz a day 1 month 5 03/22/2004 Active losartan potassium 50 mg oral tablet (17 sources) Angiotensin 2 Receptor Arpit Start: 08-28-2023 take 1 tablet by mouth once daily losartan (Cozaar) 50 MG tablet Take 1 tablet (50 mg) by mouth daily. 90 tablet 1 08/28/2023 Active Start: 03-21-2023 End: 07-11-2023 take 1 tablet by mouth once daily losartan (Cozaar) 50 MG tablet Take 1 tablet (50 mg) by mouth daily. 30 tablet 2 03/21/2023 Active 24 hr metoprolol succinate 25 mg extended release oral tablet (17 sources) beta-Adrenergic Arpit Start: 08-28-2023 take 1 tablet by mouth twice daily metoprolol succinate XL (Toprol-XL) 25 MG 24 hr tablet Take 1 tablet (25 mg) by mouth 2 times daily. Do not crush or chew. 180 tablet 1 08/28/2023 Active Start: 06-10-2023 End: 07-10-2023 take 1 tablet by mouth every twelve hours metoprolol tartrate, short acting, (LOPRESSOR) 25 mg tablet Take 1 tablet by mouth every 12 hours. 60 tablet 0 06/10/2023 07/10/2023 Active Start: 03-21-2023 take 1 tablet by sonia th twice daily metoprolol succinate XL (Toprol-XL) 25 MG 24 hr tablet Take 1 tablet (25 mg) by mouth 2 times daily. Do not crush or chew. 60 tablet 2 03/21/2023 Active End: 03-21-2023 take 1 tablet by mouth every twenty-four hours in the morning metoprolol succinate XL (Toprol-XL) 25 MG 24 hr tablet Take 25 mg by mouth in the morning and 25 mg in the evening. Do not crush or chew.. 0 03/21/2023 Discontinued (Reorder) midazolam 2 mg/ml oral solution (1 source) Benzodiazepine Start: 04-21-2004 VERSED 10MG/5M L SYRUP Indications: Unspecified constipation 8mg po x's one now 0 04/21/2004 Active polyethylene glycol 3350 62370 mg powder for oral solution (2 sources) Osmotic Laxative Start: 05-12-2005 take 17 g by mouth once daily MIRALAX 100 % ORAL POWDER 17 grams in fluid a day 1 month 6 05/12/2005 Active Start: 10-14-2003 MIRALAX POWDER take one capful daily 527gm bottle 3 10/14/2003 Active potassium bicarbonate 25 meq effervescent oral tablet (10 sources) Start: 04-11-2023 take 1 tablet by mouth in the morning potassium bicarbonate (K-Lyte) 25 MEQ effervescent tablet Take 25 mEq by mouth in the morning and 25 mEq in the evening. 04/11/2023 Active pregabalin 100 mg oral capsule (12 sources) Start: 08-28-2023 End: 09-27-2023 take 1 capsule by mouth three times daily pregabalin (Lyrica) 100 MG capsule Indications: Alcohol-induced polyneuropathy (HCC) , Multiple open wounds of foot Take 1 capsule (100 mg) by mouth 3 times daily. 90 capsule 08/28/2023 09/27/2023 Active Start: 04-25-2023 End: 07-19-2023 take 1 capsule by mouth three times daily pregabalin (Lyrica) 100 MG capsule Indications: Alcohol-induced polyneuropathy (HCC) , Multiple open wounds of foot Take 1 capsule (100 mg) by mouth 3 times daily. 90 capsule 0 06/19/2023 07/19/2023 Active sertraline 100 mg oral tablet (18 sources) Serotonin Reuptake Inhibitor Start: 04-25-2023 End: 06-20-2023 take 1 tablet by mouth once daily sertraline (Zoloft) 100 MG tablet Take 1 tablet (100 mg) by mouth daily. 30 tablet 2 06/20/2023 Active Start: 03-21-2023 End: 04-25-2023 take 1 tablet by mouth once daily sertraline (Zoloft) 50 MG tablet take 1 tablet by mouth once daily 30 tablet 0 04/25/2023 04/25/2023 Discontinued (Reorder) sulfamethoxazole 800 mg / trimethoprim 160 mg oral tablet (1 source) Dihydrofolate Reductase Inhibitor Antibacterial, Sulfonamide Antimicrobial Start: 08-18-2023 End: 08-25-2023 take 1 tablet by mouth twice daily Bactrim DS 800 mg-160 mg oral tablet Dose = 1 tab(s), Oral, BID, X 7 day(s), # 14 tab(s), 0 Refill(s), 111.4 Start Date: 08/18/23 Stop Date: 08/25/23 Status: Ordered thiamine 100 mg oral tablet (15 sources) Start: 06-12-2023 End: 07-12-2023 take 1 tablet by mouth three times daily thiamine (VITAMIN B1) 100 mg tablet Take 1 tablet by mouth three times a day. Patient should start on June 12, 2023. 90 tablet 0 06/12/2023 07/12/2023 Active Start: 04-07-2023 take 50 mg by mouth once daily Thiamine Mononitrate (Vit B1) Active 50 MG PO Every Day April 07, 2023 12:00am unsure of dose Start: 03-21-2023 take 1 tablet by sonia once daily thiamine (Vitamin B-1) 100 MG tablet Take 1 tablet (100 mg) by mouth daily. 30 tablet 2 03/21/2023 Active vitamin b12 0.5 mg oral tablet (11 sources) Vitamin B12 Start: 04-25-2023 End: 06-28-2023 take 2 tablets by mouth once daily cyanocobalamin (Vitamin B-12) 500 MCG tablet Take 2 tablets (1,000 mcg) by mouth daily. 60 tablet 2 06/28/2023 Active Completed/Discontinued Medications Medication Drug Class(es) Dates Sig (Normalized) Sig (Original) cefdinir 300 mg oral capsule (2 sources) Cephalosporin Antibacterial Start: 04-11-2023 End: 04-25-2023 take 1 capsule by mouth twice daily cefdinir (Omnicef) 300 MG capsule Take 300 mg by mouth 2 times daily. 0 04/11/2023 04/25/2023 doxycycline hyclate 100 mg oral capsule (2 sources) Tetracycline-class Drug Start: 04-11-2023 End: 04-25-2023 take 1 capsule by mouth twice daily doxycycline (Vibramycin) 100 MG capsule Take 100 mg by mouth 2 times daily. 0 04/11/2023 04/25/2023 gabapentin 300 mg oral capsule (8 sources) Anti-epileptic Agent Start: 04-17-2023 End: 04-25-2023 take 1 capsule by mouth three times daily gabapentin (Neurontin) 300 MG capsule Take 1 capsule (300 mg) by mouth 3 times daily. 90 capsule 0 04/17/2023 04/25/2023 Discontinued (Alternate therapy) Start: 04-07-2023 take 300 mg by mouth three times daily Gabapentin Active 300 MG PO 3 Times a Day April 07, 2023 12:00am Start: 03-21-2023 take 1 capsule by mo [facility] three times daily gabapentin (Neurontin) 300 MG capsule Take 1 capsule (300 mg) by mouth 3 times daily. 90 capsule 0 03/21/2023 Active End: 03-21-2023 take 1 capsule by mouth three times daily gabapentin (Neurontin) 100 MG capsule Take 100 mg by mouth 3 times daily. 0 03/21/2023 Discontinued (Reorder) 1 ml haloperidol 5 mg/ml prefilled syringe (2 sources) Typical Antipsychotic Start: 09-02-2023 End: 09-02-2023 5 mg, IntraMUSCular, Once PRN, agitation, Starting on 09/02/23 at 0224, For 1 dose, IM route of administration preferred. Because of the risk of TdP and QT prolongation, ECG monitoring is recommended if haloperidol is given IV 1 ml LORazepam 2 mg/ml injection (2 sources) Benzodiazepine Start: 09-02-2023 End: 09-02-2023 2 mg, IntraMUSCular, Once PRN, agitation, Starting on 09/02/23 at 0224, For 1 dose, For IV doses dilute dose with 1ml NS. microencapsulated potassium chloride 10 meq extended release oral tablet (2 sources) Start: 09-02-2023 End: 09-02-2023 40 mEq, Oral, Once, On 09/02/23 at 0430, For 1 dose, Best given with food and plenty of water to minimize gastric irritation. Do not crush or chew. Problems Active Problems Problem Classification Problem Date Documented Date Episodic/Chronic Abdominal pain (1 source) Pelvic and perineal pain; Translations: [PELVIC AND PERINEAL PAIN] Onset: 03-16-2023 Episodic Alcohol-related disorders (20 sources) Alcohol abuse; Translations: [Alcohol abuse, uncomplicated] Onset: 11-08-2022 03-21-2023 Chronic Alcohol-related disorders (1 source) Alcohol use, unspecified with intoxication, uncomplicated; Translations: [Alcoholic intoxication without complication (HCC)] Onset: 06-17-2023 Episodic Allergic reactions (1 source) Allergy status to penicillin; Translations: [ALLERGY STATUS TO PENICILLIN] Onset: 04-12-2023 Episodic Anxiety disorders (20 sources) Anxiety; Translations: [Anxiety disorder, unspecified] Onset: 04-20-2016 11-28-2021 Chronic Asthma (20 sources) Exacerbation of moderate persistent asthma; Translations: [Moderate persistent asthma with (acute) exacerbation] Onset: 01-23-2019 11-28-2021 Chronic Blindness and vision defects (1 source) Other visual disturbances; Translations: [OTHER VISUAL DISTURBANCES] Onset: 03-16-2023 Episodic Cardiac dysrhythmias (1 source) Tachycardia, unspecified; Translations: [TACHYCARDIA UNSPECIFIED] Onset: 03-16-2023 Episodic Diseases of white blood cells (1 source) Other elevated white blood cell count; Translations: [OTH ELEVATED WHITE BLOOD CELL COUNT] Onset: 03-16-2023 Chronic Disorders usually diagnosed in infancy, childhood, or adolescence (15 sources) Attention deficit hyperactivity disorder, predominantly inattentive type; Translations: [Other specified behavioral and emotional disorders with onset usually occurring in childhood and adolescence] Onset: 05-12-2015 11-28-2021 Chronic E Codes: Unspecified (1 source) Blood alcohol level of less than 20 mg/100 ml; Translations: [BLOOD ALCOHOL LEVEL < 20 MG/100 ML] Onset: 03-16-2023 Episodic Endometriosis (1 source) Endometriosis, unspecified; Translations: [ENDOMETRIOSIS UNSPECIFIED] Onset: 03-16-2023 Chronic Esophageal disorders (1 source) Gastro-esophageal reflux disease without esophagitis; Translations: [GERD WITHOUT ESOPHAGITIS] Onset: 11-08-2022 Chronic Essential hypertension (2 sources) Essential (primary) hypertension; Translations: [Hypertensive disorder] Onset: 03-16-2023 06-08-2023 Chronic Fluid and electrolyte disorders (11 sources) Hypokalemia; Translations: [Dehydration] Onset: 11-08-2022 06-08-2023 Episodic Genitourinary symptoms and ill-defined conditions (1 source) Genitourinary tract problem; Translations: [Unspecified symptoms and signs involving the genitourinary system] Onset: 08-18-2023 Episodic Hypertension with complications and secondary hypertension (1 source) Hypertensive urgency; Translations: [HYPERTENSIVE URGENCY] Onset: 03-16-2023 Chronic Mood disorders (16 sources) Bipolar disorder, unspecified; Translations: [Recurrent major depressive episodes, moderate ] Onset: 03-16-2023 04-26-2023 Chronic Nutritional deficiencies (1 source) Undernutrition; Translations: [Mild protein-calorie malnutrition] Onset: 06-09-2023 06-09-2023 Chronic Nutritional deficiencies (1 source) Nutritional deficiency, unspecified; Translations: [NUTRITIONAL DEFICIENCY UNSPECIFIED] Onset: 03-24-2023 Episodic Other aftercare (1 source) Other longterm (current) drug therapy; Translations: [OTH FCI CURRENT DRUG THERAPY] Onset: 04-12-2023 Episodic Other connective tissue disease (7 sources) Paraparesis; Translations: [Other symptoms and signs involving the musculoskeletal system] Onset: 03-21-2023 03-21-2023 Episodic Other connective tissue disease (1 source) Pain in unspecified limb; Translations: [PAIN IN UNSPECIFIED LIMB] Onset: 04-12-2023 Episodic Other diseases of veins and lymphatics (1 source) Other specified disorders of veins; Translations: [OTHER SPECIFIED DISORDERS OF VEINS] Onset: 04-12-2023 Episodic Other diseases of veins and lymphatics (1 source) Venous insufficiency (chronic) (peripheral); Translations: [VENOUS INSUFF CHRONIC PERIPHERAL] Onset: 04-12-2023 Episodic Other hematologic conditions (1 source) Other specified diseases of blood and blood-forming organs; Translations: [OTH SPEC DZ BLOOD AND BLOOD-FORM ORG] Onset: 03-16-2023 Chronic Other injuries and conditions due to external causes (2 sources) Frostbite of foot; Translations: [Superficial frostbite of right foot, initial encounter] 04-02-2023 Episodic Other liver diseases (1 source) Fatty (change of) liver, not elsewhere classified; Translations: [FATTY CHANGE LIVER NEC] Onset: 03-16-2023 Chronic Other liver diseases (4 sources) Enzyme level - finding; Translations: [Elevated transaminase level] Onset: 06-28-2023 06-28-2023 Episodic Other nervous system disorders (2 sources) Peripheral nerve disease ; Translations: [Polyneuropathy, unspecified] 04-02-2023 Chronic Other nervous system disorders (1 source) Paresthesia of skin; Translations: [PARESTHESIA OF SKIN] Onset: 04-12-2023 Episodic Other nervous system disorders (1 source) Other disturbances of skin sensation; Translations: [OTHER DISTURBANCES SKIN SENSATION] Onset: 03-16-2023 Episodic Other nutritional; endocrine; and metabolic disorders (20 sources) Body mass index 40+ - severely obese; Translations: [Morbid (severe) obesity due to excess calories] Onset: 01-23-2019 Resolved: 03-21-2023 11-28-2021 Chronic Other nutritional; endocrine; and metabolic disorders (1 source) Body mass index (BMI) 50.0-59.9, adult; Translations: [BODY MASS INDEX BMI 50.0-59.9 ADULT] Onset: 03-16-2023 Chronic Other nutritional; endocrine; and metabolic disorders (3 sources) Morbid (severe) obesity due to excess calories; Translations: [MORBID SEVERE OBES D/T EXCESS BRISEIDA] Onset: 11-28-2021 Chronic Other nutritional; endocrine; and metabolic disorders (1 source) Severe obesity; Translations: [Morbid (severe) obesity due to excess calories] Onset: 06-08-2023 06-08-2023 Chronic Other nutritional; endocrine; and metabolic disorders (1 source) Hypomagnesemia; Translations: [Hypomagnesemia] Onset: 06-08-2023 Chronic Other nutritional; endocrine; and metabolic disorders (2 sources) Body mass index (BMI) 60.0-69.9, adult; Translations: [Body mass index (BMI) 60.0-69.9, adult (HCC)] Onset: 11-28-2021 Chronic Residual codes; unclassified (1 source) Localized edema; Translations: [LOCALIZED EDEMA] Onset: 04-12-2023 Episodic Residual codes; unclassified (1 source) Pain Onset: 04-21-2023 Episodic Residual codes; unclassified (1 source) Hallucinations; Translations: [Hallucinations, unspecified] Onset: 08-18-2023 Episodic Schizophrenia and other psychotic disorders (4 sources) Paranoid disorder; Translations: [Delusional disorders] Onset: 09-02-2023 09-02-2023 Chronic Skin and subcutaneous tissue infections (2 sources) Cellulitis of right lower limb; Translations: [Cellulitis of left lower limb] Onset: 04-11-2023 Episodic Substance-related disorders (7 sources) Nicotine dependence, cigarettes, uncomplicated; Translations: [Nicotine dependence, unspecified, uncomplicated] Onset: 10-10-2022 06-08-2023 Chronic Substance-related disorders (5 sources) Misuses drugs; Translations: [Other stimulant use, unspecified, uncomplicated] Onset: 08-18-2023 Episodic Thyroid disorders (17 sources) Acquired hypothyroidism; Translations: [Hypothyroidism, unspecified] Onset: 03-21-2023 03-21-2023 Chronic Unclassified (1 source) ALCOHOL ABUSE WITHDRAWAL UNSPCIFIED; Translations: [ALCOHOL ABUSE WITHDRAWAL UNSPCIFIED] Onset: 03-16-2023 Unclassified (1 source) NONSUICIDAL SELF-HARM; Translations: [NONSUICIDAL SELF-HARM] Onset: 03-16-2023 Unclassified (1 source) ELEV LVLS LIVER TRANSAMINASE LVLS; Translations: [ELEV LVLS LIVER TRANSAMINASE LVLS] Onset: 03-16-2023 Unclassified (1 source) PT OTH NONCOMPLIANCE MED OTH REASON; Translations: [PT OTH NONCOMPLIANCE MED OTH REASON] Onset: 03-16-2023 Unclassified (1 source) Alcohol withdrawal syndrome without complication (HCC); Translations: [Alcohol withdrawal syndrome without complication (HCC)] Onset: 06-08-2023 Unclassified (1 source) Elevation of levels of liver transaminase levels; Translations: [Elevation of levels of liver transaminase levels] Onset: 06-28-2023 Urinary tract infections (1 source) Urinary tract infection, site not specified; Translations: [UTI SITE NOT SPECIFIED] Onset: 03-16-2023 Episodic Past or Other Problems Problem Classification Problem Date Documented Date Episodic/Chronic Mood disorders (13 sources) Mood disorders Onset: 03-21-2023 Resolved: 06-28-2023 03-21-2023 Open wounds of extremities (17 sources) Multiple open wounds of foot; Translations: [Unspecified open wound, unspecified foot, initial encounter] Onset: 04-25-2023 04-25-2023 Episodic Other circulatory disease (1 source) Elevated blood-pressure reading, without diagnosis of hypertension; Translations: [ELEVATED BP READING W/O DX HTN] Onset: 11-08-2022 Episodic Other connective tissue disease (1 source) Pain in left foot; Translations: [PAIN IN LEFT FOOT] Onset: 10-10-2022 Episodic Other connective tissue disease (1 source) Residual foreign body in soft tissue; Translations: [RESIDUAL FOREIGN BODY SOFT TISSUE] Onset: 10-10-2022 Episodic Other connective tissue disease (10 sources) Other symptoms and signs involving the musculoskeletal system; Translations: [Other musculoskeletal symptoms referable to limbs] Onset: 03-21-2023 03-21-2023 Episodic Other hematologic conditions (15 sources) Erythrocytosis; Translations: [Secondary polycythemia] Onset: 03-21-2023 03-21-2023 Episodic Other hematologic conditions (2 sources) Secondary polycythemia; Translations: [Secondary polycythemia] Onset: 03-21-2023 Episodic Other screening for suspected conditions (not mental disorders or infectious disease) (9 sources) Abnormal results of thyroid function studies; Translations: [Prolonged QT interval] Onset: 03-16-2023 06-08-2023 Episodic Other upper respiratory disease (1 source) Pain in throat; Translations: [PAIN IN THROAT] Onset: 11-17-2022 Episodic Residual codes; unclassified (1 source) Tobacco use; Translations: [TOBACCO USE] Onset: 11-17-2022 Episodic Residual codes; unclassified (1 source) Family history of ischemic heart disease and other diseases of the circulatory system; Translations: [FAM HX ISCHEMIC HRT DZ OTH DZ CIRC] Onset: 11-08-2022 Episodic Unclassified (1 source) Elevation of levels of liver transaminase levels; Translations: [Elevation of levels of liver transaminase levels] Onset: 06-28-2023 Results Test Name Value Interpretation Reference Range Facility 36 11-28-2023 36 No patient response. Closed [address] 11-03-2023 36 My Chart message [address] 10-24-2023 36 Tri Silva APRN - BAM 10/24/23 1:00 PM Note Rx sent for everything except the Zyprexa. This is not a medication I manage or prescribe. Needs to get this from the physician managing this for her. Left a message to return call. [place] [id number] Rx sent for everything except the Zyprexa. This is not a medication I manage or prescribe. Needs to get this from the physician managing this for her. [place] [phone] CSA Lyrica 06/28/23 Hydroxyzine and Zyprexa are not on med list. [place] [phone] Ordering provider: Anthony Booth MD Date of last office visit: 06/28/23 Date of next office visit: 10/25/23 Updated/Validated preferred pharmacy: Yes [facility] - [place], [place] - [address] [facility] [phone] Patient instructed to contact the pharmacy prior to picking up the medication: Yes (1) Medication name: pregabalin (Lyrica) Medication dosage: 100 mg (Miligrams Monthly quantity needed: 90 How many day supply requestin days Medication route: oral (PO) Medication administration time(s): 3 times a day (TID) If taking medication PRN, reason for taking medication: If this is a controlled substance do you receive this or any other controlled medication from any other doctor or facility: No Date of last refill (see medication tab): 08/28/23 (2) Medication name: metoprolol succinate XL (Toprol-XL) Medication dosage: 25 mg (Miligrams Monthly quantity needed: 180 How many day supply requestin days Medication route: oral (PO) Medication administration time(s): 2 times a day (BID) If taking medication PRN, reason for taking medication: If this is a controlled substance do you receive this or any other controlled medication from any other doctor or facility: No Date of last refill (see medication tab): 08/28/23 (3) Medication name: losartan (Cozaar) Medication dosage: 50 mg (Miligrams Monthly quantity needed: 90 How many day supply requestin days Medication route: oral (PO) Medication administration time(s): daily If taking medication PRN, reason for taking medication: If this is a controlled substance do you receive this or any other controlled medication from any other doctor or facility: No Date of last refill (see medication tab): 08/28/23 (4) Medication name: albuterol 108 (90 Base) Medication dosage: 108 (90 Base) MCG/ACT Monthly quantity needed: 18g How many day supply requestin days Medication route: inhalation (inhaler) Medication administration time(s): every 6 hours PRN If taking medication PRN, reason for taking medication: Wheezing If this is a controlled substance do you receive this or any other controlled medication from any other doctor or facility: No Date of last refill (see medication tab): 08/28/23 (5) Medication name: albuterol (2.5 MG/3ML) 0.083% nebulizer solution Medication dosage: 2.5 MG/3ML Monthly quantity needed: 360 mL How many day supply requestin days Medication route: Solution Medication administration time(s): every 6 hours PRN If taking medication PRN, reason for taking medication: wheezing If this is a controlled substance do you receive this or any other controlled medication from any other doctor or facility: No Date of last refill (see medication tab): 04/25/23 [facility] 36on 09-05-2023 Luz Puentes missed the appointment scheduled at [facility] today. This appointment will need to be rescheduled. Left a message to return call. [facility] CBC W Auto Differential pane l (Bld)on 09-02-2023 Basophils (Bld) [#/Vol] 0.0 10*3/uL 0.0 - 0.2 10*3/uL [facility] Basophils/100 WBC (Bld) 0.4 % 0.0 - 2.0 % [facility] Eosinophils (Bld) [#/Vol] 0.1 10*3/uL 0.0 - 0.5 10*3/uL [facility] Eosinophils/100 WBC (Bld) 1.4 % 0.0 - 6.0 % [facility] Erythrocyte distribution width (RBC) [Ratio] 14.2 % 11.5 - 15.0 % [facility] Hematocrit (Bld) [Volume fraction] 45.1 % 35.0 - 47.0 % [facility] Hemoglobin (Bld) [Mass/Vol] 15.4 g/dL 11.7 - 16.0 g/dL [facility] Immature granulocytes (Bld) [#/Vol] 0.0 10*3/uL NINF - 0.1 10*3/uL [facility] Immature granulocytes/100 WBC (Bld) 0.3 % 0.0 - 2.0 % [facility] Interpretation and review of laboratory results Normal [facility] Lymphocytes (Bld) [#/Vol] 2.3 10*3/uL 1.0 - 4.3 10*3/uL [facility] Lymphocytes/100 WBC (Bld) 33.0 % 15.0 - 45.0 % [facility] MCH (RBC) [Entitic mass] 31.9 pg 26. 0 - 34.[address] [facility] MCHC (RBC) [Mass/Vol] 34.1 % 30.5 - 36.0 % [facility] MCV (RBC) [Entitic vol] 93.4 fL 77.0 - 99.0 fL [facility] Monocytes (Bld) [#/Vol] 0.6 10*3/uL 0.0 - 0.9 10*3/uL [facility] Monocytes/100 WBC (Bld) 9.2 % 5.0 - 13.0 % [facility] Neutrophils (Bld) [#/Vol] 3.9 10*3/uL 1.8 - 7.5 10*3/uL [facility] Neutrophils/100 WBC (Bld) 55.7 % 38.0 - 82.0 % [facility] Nucleated RBC/100 WBC (Bld) [Ratio] 0.0 % [facility] Platelet mean volume (Bld) [Entitic vol] 10.7 fL 9.0 - 12.[address] [facility] Comment on above: MPV is a calculated measurement using platelet volume ratio Platelets (Bld) [#/Vol] 369 10*3/uL 140 - 440 10*3/uL [facility] RBC (Bld) [#/Vol] 4.83 10*6/uL 3.80 - 5.2 0 10*6/uL [facility] WBC (Bld) [#/Vol] 7.0 10*3/uL 3.6 - 10.7 10*3/uL [facility] CBC WITH AUTO DIFFERENTIALon 09-02-2023 Basophils (Bld) [#/Vol] 0.0 10*3/uL Normal 0.0-0.2 [facility] Comment on above: Performed By: #### L [id number] ####Corporate Pilot: MARIXA HOLLAND ([phone])[facility] [place] [address] [place] Basophils/100 WBC (Bld) 0.4 % Normal 0.0-2.0 [facility] Comment on above: Performed By: #### L [id number] ####Corporate Pilot: MARIXA HOLLAND ([phone])[facility] [place] [address] [place] Eosinophils (Bld) [#/Vol] 0.1 10*3/uL Normal 0.0-0.5 [facility] Comment on above: Performed By: #### L [id number] ####Corporate Pilot: MARIXA HOLLAND ([phone])[facility] [place] [address] [place] Eosinophils/100 WBC (Bld) 1.4 % Normal 0.0-6.0 [facility] Comment on above: Performed By: #### L [id number] ####Corporate Pilot: MARIXA [id number])[facility] ([facility]RL[facility])[address] [place] [address] Erythrocyte distribution width (RBC) [Ratio] 14.2 % Normal 11.5-15.0 [facility] Comment on above: Performed By: #### L [id number] ####Corporate Pilot: MARIXA HOLLAND ([phone])[facility] ([facility])[address] [place] [address] Hematocrit (Bld) [Volume fraction] 45.1 % Normal 35.0-47.0 [facility] Comment on above: Performed By: #### L [id number] ####Corporate Pilot: MARIXA HOLLAND ([phone])[facility] ([facility])[address] [place] [address] Hemoglobin (Bld) [Mass/Vol] 15.4 g/dL Normal 11.7-16.0 [facility] Comment on above: Performed By: #### L [id number] ####Corporate Pilot: MARIXA HOLLAND ([phone])[facility] ([facility])[address] [place] [address] IMMATURE GRANS % 0.3 % Normal 0.0-2.0 [facility] Comment on above: Performed By: #### L [id number] ####Corporate Pilot: MARIXA HOLLAND ([phone])[facility] ([facility])[address] [place] [address] IMMATURE GRANS ABSOLUTE 0.0 10*3/uL Normal <0.1 [facility] Comment on above: Performed By: #### L [id number] ####Corporate Pilot: MARIXA HOLLAND ([phone])[facility] ([facility])[address] [place] [address] Lymphocytes (Bld) [#/Vol] 2.3 10*3/uL Normal 1.0-4.3 [facility] Comment on above: Performed By: #### L [id number] ####Corporate Pilot: MARIXA HOLLAND ([phone])[facility] ([facility])[address] [place] [address] [place] Lymphocytes/100 WBC (Bld) 33.0 % Normal 15.0-45.0 [facility] Comment on above: Performed By: #### L [id number] ####Corporate Pilot: MARIXA HOLLAND ([phone])[facility] ([facility])[address] [place] [address] MCH (RBC) [Entitic mass] 31.9 pg Normal 26.0-34.0 [facility] Comment on above: Performed By: #### L [id number] ####Corporate Pilot: MARIXA HOLLAND ([phone])[facility] ([facility])[address] [place] [address] MCHC 34.1 % Normal 30.5-36.0 [facility] Comment on above: Performed By: #### L [id number] ####Corporate Pilot: MARIXA HOLLAND ([phone])[facility] ([facility])[address] [place] [address] [place] MCV (RBC) [Entitic vol] 93.4 fL Normal 77.0-99.0 [facility] Comment on above: Performed By: #### L [id number] ####Corporate Pilot: MARIXA HOLLAND ([phone])[facility] ([facility])[address] [place] [address] [place] Monocytes (Bld) [#/Vol] 0.6 10*3/uL Normal 0.0-0.9 [facility] Comment on above: Performed By: #### L [id number] ####Corporate Pilot: MARIXA HOLLAND ([phone])[facility] ([facility])[address] [place] [address] [place] Monocytes/100 WBC (Bld) 9.2 % Normal 5.0-13.0 [facility] Comment on above: Performed By: #### L [id number] ####Corporate Pilot: MARIXA HOLLAND ([phone])[facility] ([facility])[address] [place] [address] NEUTROPHILS ABSOLUTE 3.9 10*3/uL Normal 1.8-7.5 [facility] Comment on above: Performed By: #### L [id number] ####Corporate Pilot: MARIXA HOLLAND ([phone])[facility] ([facility])[address] [place] [address] Neutrophils/100 WBC (Bld) 55.7 % Normal 38.0-82.0 [facility] Comment on above: Performed By: #### L [id number] ####Corporate Pilot: MARIXA HOLLAND ([phone])[facility] ([facility])[address] [place] [address] NRBC 0.0 /100 WBCs Normal 0.0-2.0 [facility] Comment on above: Performed By: #### L [id number] ####Corporate Pilot: MARIXA HOLLAND ([phone])[facility] ([facility])[address] [place] [address] Platelet mean volume (Bld) [Entitic vol] 10.7 fL Normal 9.0-12.7 [facility] Comment on above: Result Comment: MPV is a calculated measurement using platelet volume ratio Performed By: #### L [id number] ####Corporate Pilot: MARIXA HOLLAND ([phone])[facility] ([facility])[address] [place] [address] Platelets (Bld) [#/Vol] 369 10*3/uL Normal 140-440 [facility] Comment on above: Performed By: #### L [id number] ####Corporate Pilot: MARIXA HOLLAND ([phone])[facility] ([facility])[address] [place] [address] RBC (Bld) [#/Vol] 4.83 10*6/uL Normal 3.80-5.20 [facility] Comment on above: Performed By: #### L [id number] ####Corporate Pilot: MARIXA HOLLAND ([phone])[facility] ([facility])[address] [place] [address] WBC (Bld) [#/Vol] 7.0 10*3/uL Normal 3.6-10.7 [facility] Comment on above: Performed By: #### L [id number] ####Corporate Pilot: MARIXA HOLLAND ([phone])[facility] ([facility])[address] [place] [address] CKon 09-02-2023 CK [Catalytic activity/Vol] 63 U/L Normal 30-170 [facility] Comment on above: Performed By: #### L AB62, LAB17, LAB46, [id number] ####Corporate Pilot: MARIXA HOLLAND ([phone])[facility] ([facility])[address] [place] [address] COMPLETE URINALYSISon 2023 BACTERIA (#/HPF) IN URINE Few Abnormal Negative [facility] Comment on above: Performed By: #### L [id number] ####Corporate Pilot: MARIXA HOLLAND ([phone])[facility] ([facility])[address] [place] [address] BILIRUBIN, TOTAL PRESENCE IN URINE Negative Normal Negative [facility] Comment on above: Performed By: #### L [id number] ####Corporate Pilot: MARIXA HOLLAND ([phone])[facility] ([facility])[address] [place] [address] Clarity (U) Turbid Abnormal Clear [facility] Comment on above: Performed By: #### L [id number] ####Corporate Pilot: MARIXA HOLLAND ([phone])[facility] ([facility])[address] [place] [address] [place] Color (U) Light Yellow Normal Lt. Yellow [facility] Comment on above: Performed By: #### L [id number] ####Corporate Pilot: MARIXA HOLLAND ([phone])[facility] ([facility])[address] [place] [address] [place] GLUCOSE (MG/DL) IN URINE Normal Normal Normal (<70 ) [facility] Comment on above: Performed By: #### L [id number] ####Corporate Pilot: MARIXA HOLLAND ([phone])[facility] ([facility])[address] HEMOGLOBIN PRESENCE IN URINE Negative Normal Negative [facility] Comment on above: Performed By: #### L [id number] ####Corporate Pilot: MARIXA HOLLAND ([phone])[facility] ([facility])[address] [place] [address] [place] Ketones Ql (U) Negative Normal Negative [facility] Comment on above: Performed By: #### L [id number] ####Corporate Pilot: MARIXA HOLLAND ([phone])[facility] ([facility])[address] [place] [address] [place] LEUKOCYTE ESTERASE PRESENCE IN URINE BY TEST STRIP 25 Lolita/uL Abnormal Negative [facility] Comment on above: Performed By: #### L [id number] ####Corporate Pilot: MARIXA HOLLAND ([phone])[facility] ([facility])[address] [place] [address] [place] MUCUS (#/LPF) IN URINE SEDIMENT Negative Normal Negative [facility] Comment on above: Performed By: #### L [id number] ####Corporate Pilot: MARIXA HOLLAND ([phone])[facility] ([facility])[address] [place] [address] [place] NITRITE PRESENCE IN URINE Negative Normal Negative [facility] Comment on above: Performed By: #### L [id number] ####Corporate Pilot: MARIXA HOLLAND ([phone])[facility] ([facility])[address] [place] [address] pH (U) 5.5 [pH] Normal 5.0-8.0 [facility] Comment on above: Performed By: #### L [id number] ####Corporate Pilot: MARIXA HOLLAND ([phone])[facility] ([facility])[address] [place] [address] Protein (U) [Mass/Vol] Negative Normal Negative [facility] Comment on above: Performed By: #### L [id number] ####Corporate Pilot: MARIXA HOLLAND ([phone])[facility] ([facility])[address] [place] [address] RBC (#/HPF) IN URINE SEDIMENT 0-2 Normal 0-2 [facility] Comment on above: Performed By: #### L [id number] ####Corporate Pilot: MARIXA HOLLAND ([phone])[facility] ([facility])[address] [place] [address] Specific gravity (U) [Rel density] 1.005 Normal 1.005-1.030 [facility] Comment on above: Performed By: #### L [id number] ####Corporate Pilot: MARIXA HOLLAND ([phone])[facility] ([facility])[address] [place] [address] Specimen volume (U) 12 mL Normal [facility] Comment on above: Performed By: #### L [id number] ####Corporate Pilot: MARIXA HOLLAND ([phone])[facility] ([facility])[address] [place] [address] SQUAMOUS EPITHELIAL CELLS (#/HPF) IN URINE SEDIMENT 6-10 Abnormal 3-5 [facility] Comment on above: Result Comment: Few Epithelial cell clumps present Performed By: #### L [id number] ####Corporate Pilot: MARIXA HOLLAND ([phone])[facility] ([facility])[address] UROBILINOGEN (MG/DL) IN URINE Normal Normal Normal (0-1) [facility] Comment on above: Performed By: #### L [id number] ####Corporate Pilot: MARIXA HOLLAND ([phone])[facility] ([facility])[address] WBC (LEUKOCYTE) (#/HPF) IN URINE SEDIMENT 3-5 Normal 0-5 [facility] Comment on above: Performed By: #### Tres [id number] ####Corporate Pilot: MARIXA HOLLAND ([phone])[facility] ([facility])[address] COMPREHENSIVE METABOLIC PANE Atul 09-02-2023 Albumin [Mass/Vol] 4.0 g/dL Normal 3.5-5.0 [facility] Comment on above: Performed By: #### L AB62, LAB17, LAB46, [id number] ####Corporate Pilot: MARIXA HOLLAND ([phone])[facility] ([facility])[address] [place] [address] [place] ALP [Catalytic activity/Vol] 97 U/L Normal 38-126 [facility] Comment on above: Performed By: #### L AB62, LAB17, LAB46, [id number] ####Corporate Pilot: MARIXA HOLLAND ([phone])[facility] ([facility])[address] ALT [Catalytic activity/Vol] 26 U/L Normal 0-34 [facility] Comment on above: Performed By: #### L AB62, LAB17, LAB46, COP329 ####Corporate Pilot: MARIXA HOLLAND ([phone])[facility] ([facility])[address] Anion gap [Moles/Vol] 10 mmol/L Normal 3-13 [facility] Comment on above: Performed By: #### L AB62, LAB17, LAB46, [id number] ####Corporate Pilot: MARIXA HOLLAND ([phone])[facility] ([facility])[address] AST [Catalytic activity/Vol] 34 U/L Normal 15-46 [facility] Comment on above: Performed By: #### Tres AB[place], LAB17, LAB46, JIU322 ####Corporate Pilot: MARIXA HOLLAND ([phone])[facility] ([facility])[address] Bilirubin [Mass/Vol] 1.7 mg/dL High 0.2-1.3 [facility] Comment on above: Performed By: #### Tres DO62, LAB17, LAB46, [id number] ####Corporate Pilot: MARIXA HOLLAND ([phone])[facility] (SWRL[facility])[address] [place] [address] [place] Calcium [Mass/Vol] 9.3 mg/dL Normal 8.4-10.4 [facility] Comment on above: Performed By: #### Tres MAY, LAB17, LAB46, IWC850 ####Corporate Pilot: MARIXA HOLLAND ([phone])[facility] ([facility])[address] [place] [address] [place] Chloride [Moles/Vol] 104 mmol/L Normal 98-107 [facility] Comment on above: Performed By: #### L AB62, LAB17, LAB46, [id number] ####Corporate Pilot: MARIXA HOLLAND ([phone])[facility] ([facility]RL[facility])[address] [place] [address] [place] CO2 [Moles/Vol] 25 mmol/L Normal 22-30 [facility] Comment on above: Performed By: #### Tres AB62, LAB17, LAB46, [id number] ####Corporate Pilot: MARIXA HOLLAND ([phone])[facility] ([facility])[address] [place] [address] [place] Creatinine [Mass/Vol] 0.52 mg/dL Normal 0.52-1.04 [facility] Comment on above: Performed By: #### L AB62, LAB17, LAB46, JEC202 ####Corporate Pilot: MARIXA HOLLAND ([phone])[facility] ([facility])[address] [place] [address] GLOMERULAR FILTRATION RATE ML/MIN/1.73 SQ M.PREDICTED >90.0 Normal >60.0 [facility] Comment on above: Result Comment: Calc ulation based on the Chronic Kidney Disease Epidemiology Collaboration (CKD-EPI) equation refit without adjustment for race Performed By: #### L AB62, LAB17, LAB46, FYQ711 ####Corporate Pilot: MARIXA HOLLAND ([phone])[facility] ([facility])[address] [place] [address] [place] Glucose [Mass/Vol] 88 mg/dL Normal 70-100 [facility] Comment on above: Performed By: #### Tres MAY, LAB17, LAB46, MBC382 ####Corporate Pilot: MARIXA HOLLAND ([phone])[facility] ([facility])[address] [place] [address] [place] Potassium [Moles/Vol] 3.0 mmol/L Low 3.5-5.1 [facility] Comment on above: Performed By: #### L AB62, LAB17, LAB46, AMG760 ####Corporate Pilot: MARIXA HOLLAND ([id number])[facility] ([facility])[address] [place] [address] [place] Protein [Mass/Vol] 7.7 g/dL Normal 6.3-8.2 [facility] Comment on above: Performed By: #### L AB62, LAB17, LAB46, LPR619 ####Corporate Pilot: MARIXA HOLLAND ([phone])[facility] ([facility])[address] Sodium [Moles/Vol] 138 mmol/L Normal 135-145 [facility] Comment on above: Performed By: #### L AB62, LAB17, LAB46, JFH281 ####Corporate Pilot: MARIXA HOLLAND ([id number])[facility] ([facility])[address] Urea nitrogen [Mass/Vol] 10 mg/dL Normal 7-17 [facility] Comment on above: Performed By: #### L AB62, LAB17, LAB46, YNO194 ####Corporate Pilot: MARIXA HOLLAND ([phone])[facility] ([facility])[address] Comprehensive metabolic 1998 panelon 09-02-2023 Albumin [Mass/Vol] 4.0 g/dL 3.5 - 5.0 g/dL [facility] ALP [Catalytic activity/Vol] 97 U/L 38 - 126 U/L [facility] ALT [Catalytic activity/Vol] 26 U/L 0 - 34 U/L [facility] Anion gap [Moles/Vol] 10 mmol/L 3 - 13 mmol/L [facility] AST [Catalytic activity/Vol] 34 U/L 15 - 46 U/L [facility] Bilirubin [Mass/Vol] 1.7 mg/dL High 0.2 - 1 .3 mg/dL [facility] Calcium [Mass/Vol] 9.3 mg/dL 8.4 - 10. 4 mg/dL [facility] Chloride [Moles/Vol] 104 mmol/L 98 - 10 7 mmol/L [facility] CO2 [Moles/Vol] 25 mmol/L 22 - 30 mmol/L [facility] Creatinine [Mass/Vol] 0.52 mg/dL 0.52 - 1.04 mg/dL [facility] GFR/1.73 sq M.predicted MDRD (S/P/Bld) [Vol rate/Area] - PINF [facility] Comment on above: Calculation based on the Chronic Kidney Disease Epidemiology Collaboration (CKD-EPI) equation refit without adjustment for race Glucose [Mass/Vol] 88 mg/dL 70 - 100 mg/dL [facility] Interpretation and review of laboratory results Abnormal [facility] Potassium [Moles/Vol] 3.0 mmol/L Low 3.5 - 5.1 mmol/L [facility] Protein [Mass/Vol] 7.7 g/dL 6.3 - 8.2 g/dL [facility] Sodium [Moles/Vol] 138 mmol/L 135 - 145 mmol/L [facility] Urea nitrogen [Mass/Vol] 10 mg/dL 7 - 17 mg/d L [facility] DRUGS OF ABUSEon 09-02-2023 AMPHETAMINE SCREEN Positive Normal [facility] Comment on above: Performed By: #### L [id number] ####Corporate Pilot: MARIXA HOLLAND ([id number])[facility] ([facility])[address] [place] [address] BARBITURATES SCREEN Negative Normal [facility] Comment on above: Performed By: #### L [id number] ####Corporate Pilot: MARIXA HOLLAND ([phone])[facility] ([facility])[address] [place] [address] BENZODIAZEPINE SCREEN Negative Normal [facility] Comment on above: Performed By: #### L [id number] ####Corporate Pilot: MARIXA HOLLAND ([phone])[facility] ([facility])[address] [place] [address] COCAINE METAB. SCREEN Negative Normal [facility] Comment on above: Performed By: #### L [id number] ####Corporate Pilot: MARIXA HOLLAND ([phone])[facility] ([facility])[address] [place] [address] METHADONE SCREEN Negative Normal [facility] Comment on above: Performed By: #### L [id number] ####Corporate Pilot: MARIXA HOLLAND ([phone])[facility] ([facility])[address] [place] [address] OPIATES SCREEN Negative Normal [facility] Comment on above: Performed By: #### L [id number] ####Corporate Pilot: MARIXA HOLLAND ([phone])[facility] (SW[facility])[address] OXYCODONE SCREEN Negative Normal [facility] Comment on above: Performed By: #### L [id number] ####Corporate Pilot: MARIXA HOLLAND ([phone])[facility]ITAL[facility]AYEST[facility] (SWRLAB)[address] PHENCYCLIDINE SCREEN Negative Normal [facility] Comment on above: Result Comment: ORDE R COMMENTS: The expected value for all of the drugs listed above is Negative. The following drugs or drug groups have been screened for by Immunoassay at the following thresholds: Amphetamine class (1000 ng/mL) Barbiturates (200 ng/mL) Benzodiazepines (200 ng/mL) Cocaine (300 ng/mL) Methadone (300 ng/mL) Opiates (300 ng/mL) Oxycodone (100 ng/mL) PCP (25 ng/mL) NOTE: These results are for medical treatment only. Analysis performed using non-forensic procedures. POSITIVE results are NOT confirmed by a more specific alternative method unless requested. If confirmation is needed, request confirmation under separate order. Performed By: #### L [id number] ####Corporate Pilot: MARIXA HOLLAND ([phone])[facility] (SWRLAB)[address] [place] [address] ED Nursing Noteon 09-02-2023 ED Nursing Note Discharge instructions, follow up care, and pain management discussed with patient. All questions answered, there are no further questions at this time. Patient provided with HOPE bag including halfway information and street cards. Patient [facility]. Adelita Perry RN 09/02/23 1034 Normal [facility] ED Nursing Note Patient to be discharged, patient provided with her cell phone to get a ride home. Adelita Perry RN 09/02/23 0859 Normal [facility] ED Nursing Note Patient awake and alert. Patient provided with snacks and orange juice. Patient requesting to call mother, RN provided patient with phone. Patient states that she does not understanding why she is being admitted, she states Im not suicidal, I'm not homicidal. I came in last night for anxiety. 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 RN asked patient is she could explain again why she came in, Patient states that she came in last night because she was anxious and there was a man that made her feel uncomfortable when she was walking around. Patient asked to speak with physician regarding plan of care because she does not understand why she is being admitted. RN spoke to , per physician, patient is able to be discharged if she has sobered up, if she has a ride, and if she is not suicidal or homicidal. RN reviewed the above discussion with patient with including direct quotes from the patient. Patient currently on the phone with her mother, then RN will update her on plan of care. Adelita Perry RN 09/02/23 0814 [facility] ED Nursing Note Pt initially uncooperative initially. Pt refusing to change in a gown or have labs drawn. Pt finally will allow this nurse to draw labs. Pts personal belongings removed from pt and pt put on a gown. Pt wanded by officer robert. Pt refuses anxiety meds ordered [facility] ED Nursing Note Pt presents to the ED w c/o anxiety. Per pt, pt has been having anxiety all day. Pt denies suicidal thoughts. Pt feels safe at home [facility] ED Provider Noteon ED Provider Note Emergency Department Encounter Location: [facility] ED Patient: Dhaval Moon : 2000 Date of evaluation: 09/02/2023 ED Provider: Glenn Guerrero MD Time received sign-out: 0700 Dhaval Moon was checked out to me by Dr. Chan. Please see his/her initial documentation for details of the patient's initial ED presentation, physical exam and completed studies. In brief, Dhaval Moon is a 22 y.o. adult that presented to the emergency department for evaluation of anxiety, paranoia. Patient states she has been slipped methamphetamines recently causing psychosis. Patient was reexamined approximately 9 AM after waking from sleeping. She is awake and fully alert and answering questions appropriately. She is not suicidal or homicidal. She states her anxiety is resolved. States she was concerned that people were after her but she feels safe going home. She appears to have clear sensorium at this time. I have reviewed and interpreted all of the currently available lab results and diagnostics from this visit: Results for orders placed or performed during the hospital encounter of 09/02/23 SARS-CoV-2 Antigen Specimen: Nasal; Swab Result Value Ref Range SARS-CoV-2 Antigen Negative Negative CBC auto differential Result Value Ref Range Auto WBC 7.0 3.6 - 10.7 10*3/uL RBC 4.83 3.80 - 5.20 10*6/uL Hemoglobin 15.4 11.7 - 16.0 g/dL Hematocrit 45.1 35.0 - 47.0 % MCV 93.4 77.0 - 99.0 fL MCH 31.9 26.0 - 34.0 pg MCHC 34.1 30.5 - 36.0 % RDW 14.2 11.5 - 15.0 % Platelets 369 140 - 440 10*3/uL MPV 10.7 9.0 - 12.7 fL nRBC 0.0 0.0 - 2.0 /100 WBCs Neutrophils Relative 55.7 38.0 - 82.0 % Lymphocytes Relative 33.0 15.0 - 45.0 % Monocytes Relative 9.2 5.0 - 13.0 % Eosinophils Relative 1.4 0.0 - 6.0 % Basophils Relative 0.4 0.0 - 2.0 % Immature Grans % 0.3 0.0 - 2.0 % Neutrophils Absolute 3.9 1.8 - 7.5 10*3/uL Lymphocytes Absolute 2.3 1.0 - 4.3 10*3/uL Monocytes Absolute 0.6 0.0 - 0.9 10*3/uL Eosinophils Absolute 0.1 0.0 - 0.5 10*3/uL Basophils Absolute 0.0 0.0 - 0.2 10*3/uL Immature Grans Absolute 0.0 <0.1 10*3/uL Comprehensive metabolic panel Result Value Ref Range SODIUM 138 135 - 145 mmol/L POTASSIUM 3.0 (L) 3.5 - 5.1 mmol/L CHLORIDE 104 98 - 107 mmol/L CARBON DIOXIDE 25 22 - 30 mmol/L ANION GAP 10 3 - 13 mmol/L UREA NITROGEN 10 7 - 17 mg/dL CREATININE 0.52 0.52 - 1.04 mg/dL GLUCOSE 88 70 - 100 mg/dL CALCIUM 9.3 8.4 - 10.4 mg/dL AST (SGOT) 34 15 - 46 U/L ALT 26 0 - 34 U/L ALKALINE PHOSPHATASE 97 38 - 126 U/L ALBUMIN 4.0 3.5 - 5.0 g/dL BILIRUBIN, TOTAL 1.7 (H) 0.2 - 1.3 mg/dL TOTAL PROTEIN 7.7 6.3 - 8.2 g/dL eGFR >90.0 >60.0 mL/min/1.73m*2 Drug screen panel, emergency Result Value Ref Range AMPHETAMINE SCREEN Positive BARBITURATES SCREEN Negative BENZODIAZEPINE SCREEN Negative COCAINE METAB. SCREEN Negative METHADONE SCREEN Negative OPIATES SCREEN Negative OXYCODONE SCREEN Negative PHENCYCLIDINE SCREEN Negative Ethanol Result Value Ref Range ETHANOL IN SER/PLAS <0.010 0.000 - 0.010 g/dL CPK Result Value Ref Range CK 63 30 - 170 U/L hCG, quantitative, Result Value Ref Range HCG QUANTITATIVE <2 Females <=5 mIU/mL Urinalysis with reflex microscopic Result Value Ref Range Color, Urine Light Yellow Lt. Yellow Clarity, Urine Turbid (A) Clear pH, Urine 5.5 5.0 - 8.0 pH Leukocytes, Urine 25 (A) Negative Lolita/uL Nitrite, Urine Negative Negative Protein, Urine Negative Negative mg/dL Glucose, Urine Normal Normal (<70) mg/dL Bilirubin, Urine Negative Negative mg/dL Ketones, Urine Negative Negative mg/dL Urobilinogen, Urine Normal Normal (0-1) mg/dL Blood, Urine Negative Negative mg/dL Volume, Urine 12 mL RBC, Urine 0-2 0 - 2 /HPF WBC, Urine 3-5 0 - 5 /HPF Squamous Epithelial, Urine 6-10 (A) 3 - 5 /HPF Bacteria, Urine Few (A) Negative /HPF Mucus, Urine Negative Negative /LPF SPECIFIC GRAVITY OF URINE (NUMERIC) 1.005 1.005 - 1.030 No orders to display Final ED Course and MDM: In brief, Dhaval Moon is a 22 y.o. whose care was signed out to me by the outgoing provider. 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 She is not suicidal homicidal and understands her situation and surroundings. I do feel she can go home and follow-up as an outpatient. Medications LORazepam (Ativan) injection 2 mg (has no administration in time range) haloperidol lactate (Haldol) injection 5 mg (has no administration in time range) potassium chloride CR (Klor-Con M10) ER tablet 40 mEq (40 mEq Oral Given 09/02/23 0510) I Glenn Guerrero MD am the associate music professor of record. Final Impression 1. Paranoia (psychosis) (HCC) 2. Hypokalemia 3. Methamphetamine-ind uced psychotic disorder (HCC) DISPOSITION (Please note that portions of this note may have been completed with a voice recognition program. Efforts were made to edit the dictations but occasionally (more content not included)... [facility] ED Provider Note EMERGENCY DEPARTMENT ENCOUNTER Pt Name: Dhaval Moon Birthdate 2000 Date of evaluation: 09/02/2023 ED Provider: Billie Spears DO CHIEF COMPLAINT Chief Complaint Patient presents with Anxiety HISTORY OF PRESENT ILLNESS (Location/Symptom, Timing/Onset, Context/Setting, Quality, Duration, Modifying Factors, Severity) Note limiting factors. I wore appropriate PPE for the entirety of this encounter. 22-year-old female presents emergency department today with paranoia that she is being followed by people from [place] and that she feels not safe here or other hospitals. Denies any suicidal ideations. Denies any recent drug use but states that 2 weeks ago she was in a methamphetamine induced psychosis stating that someone slipped methamphetamines into her marijuana. Nursing Notes were reviewed. Limitations to history: None Outside historians: None REVIEW OF SYSTEMS Review of Systems Psychiatric/Behavio ral: Negative for suicidal ideas. The patient is nervous/anxious. Pertinent positives and negatives as per HPI. PAST MEDICAL HISTORY Past Medical History: Diagnosis Date ADHD (attention deficit hyperactivity disorder) Anxiety Asthma Bipolar disorder (HCC) Depression SURGICAL HISTORY Past Surgical History: Procedure Laterality Date MYRINGOTOMY (HISTORICAL) CURRENT MEDICATIONS Previous Medications ALBUTEROL (2.5 MG/3ML) 0.083% NEBULIZER SOLUTION Take 3 mL (2.5 mg) by nebulization every 6 hours as needed for wheezing. ALBUTEROL 108 (90 BASE) MCG/ACT INHALER Inhale 2 puffs every 6 hours as needed for wheezing. CYANOCOBALAMIN (VITAMIN B-12) 500 MCG TABLET Take 2 tablets (1,000 mcg) by mouth daily. FOLIC ACID (FOLVITE) 1 MG TABLET Take 1 tablet (1 mg) by mouth daily. LOSARTAN (COZAAR) 50 MG TABLET Take 1 tablet (50 mg) by mouth daily. METOPROLOL SUCCINATE XL (TOPROL-XL) 25 MG 24 HR TABLET Take 1 tablet (25 mg) by mouth 2 times daily. Do not crush or chew. POTASSIUM BICARBONATE (K-LYTE) 25 MEQ EFFERVESCENT TABLET Take 25 mEq by mouth in the morning and 25 mEq in the evening. PREGABALIN (LYRICA) 100 MG CAPSULE Take 1 capsule (100 mg) by mouth 3 times daily. SERTRALINE (ZOLOFT) 100 MG TABLET Take 1 tablet (100 mg) by mouth daily. THIAMINE (VITAMIN B-1) 100 MG TABLET Take 1 tablet (100 mg) by mouth daily. ALLERGIES Penicillins FAMILY HISTORY Family History Problem Relation Name Age of Onset High Blood Pressure Father No Known Problems Mother SOCIAL HISTORY Social History Socioeconomic History Marital status: Life Partner Tobacco Use Smoking status: Every Day Current packs/day: 0.25 Average packs/day: 0.3 packs/day for 0.4 years (0.1 ttl pk-yrs) Types: Cigarettes Start date: 04/17/2023 Smokeless tobacco: Never Vaping Use Vaping status: Never Used Substance and Sexual Activity Alcohol use: Yes Alcohol/week: 2.0 standard drinks of alcohol Types: 2 Cans of beer per week Drug use: Yes Types: Marijuana Sexual activity: Yes Partners: Male Social Determinants of Health Financial Resource Strain: Medium Risk (05/22/2020) Received from [facility] Overall Financial Resource Strain (CARDIA) Difficulty of Paying Living Expenses: Somewhat hard Food Insecurity: Food Insecurity Present (06/09/2023) Received from [facility] Hunger Vital Sign Worried About Running Out of Food in the Last Year: Sometimes true Ran Out of Food in the Last Year: Sometimes true Transportation Needs: No Transportation Needs (06/09/2023) Received from [facility] PRAPARE - Transportation Lack of Transportation (Medical): No Lack of Transportation (Non-Medical): No Physical Activity: Inactive (01/23/2019) Received from [facility] Exercise Vital Sign Days of Exercise per Week: 0 days Minutes of Exercise per Session: 0 min Housing Stability: Unknown (06/09/2023) Received from [facility], [facility] Housing Stability Vital Sign Unable to Pay for Housing in the Last Year: No In the last 12 months, was there a time when you did not have a steady place to sleep or slept in a halfway (including now)?: No SCREENINGS PHYSICAL EXAM ED Triage Vitals Temp Pulse Resp BP -- -- -- -- SpO2 Temp src Heart Rate Source Patient Position -- -- -- -- BP Location FiO2 (%) -- -- Physical Exam Vitals and nursing note reviewed. Constitutional: Appearance: Normal appearance. HENT: Head: Normocephalic and atraumatic. Cardiovascular: Rate and Rhythm: Normal rate. Pulmonary: Effort: Pulmonary effort is normal. Skin: General: Skin is warm and dry. Neurological: Mental Status: She is alert. Psychiatric: Thought Content: Thought content is paranoid. Thought content does not include suicidal ideation. DIAGNOSTIC RESULTS Procedures/E (more content not included)... Normal [facility] ETHANOLon 09-02-2023 ETHANOL IN SER/PLAS <0.010 Normal 0.000-0.010 [facility] Comment on above: Result Comment: JEAN Juarez COMMENTS: NOTE: This result is for medical treatment only. Analysis performed using non-forensic procedures. Performed By: #### L [id number], LAB17, LAB46, [id number] ####Corporate Pilot: MARIXA HOLLAND ([phone])[facility] ([facility])[address] [place] [address] Ethanol (Bld) [Mass/Vol]on 0 09-02-2023 Ethanol [Mass/Vol] g/dL 0.000 - 0.010 g/dL [facility] HCG QUANTITATIVE BLOODon HCG QUANTITATIVE <2 Normal Females <=5 [facility] Comment on above: Result Comment: JEAN Juarez COMMENTS: Values in should double every 2 to 3 days for the first 6 weeks. Elevated concentrations of human chorionic gonadotropin (hCG) measured in the first trimester of are observed in normal , but may serve as an indication of chorionic carcinoma, hydatiform mole, or multiple . Decreasing hCG concentrations indicate threatened or missed , recent termination of , ectopic , gestosis or intrauterine . Michell- and postmenopausal females may have detectable hCG concentrations (< or = to 14 mIU/mL) due to pituitary production of hCG. Serum follicle-stimulating hormone measurement may aid in ruling-out in this population. Cutoffs of greater than 20 to 45 mIU/mL have been suggested and are method dependent. False-elevations (called phantom human chorionic gonadotropin: hCG) may occur with patients who have human antianimal or heterophilic antibodies. Some specimens may not dilute linearly due to abnormal forms of hCG. Elevated hCG concentrations not associated with are found in patients with other diseases such as tumors of the germ cells, ovaries, bladder, pancreas, stomach, lungs, and liver. This test is not intended to detect or monitor tumors or gestational trophoblastic disease. Performed By: #### L AB62, LAB17, LAB46, [id number] ####Corporate Pilot: MARIXA HOLLAND ([id number])[facility])[address] [place] [address] Laboratory - Chemistry and C hemistry - challengeon 09-02-2023 HCG.beta subunit Qn Females <=5 mIU/mL [facility] CK [Catalytic activity/Vol] 63 U/L 30 - 170 U/L [facility] Laboratory - Drug toxicology on 09-02-2023 Amphetamines Screen method >1000 ng/mL Ql (U) Positive [facility] Barbiturates Screen method >200 ng/mL Ql (U) Negative [facility] Benzodiazepines Ql (U) Negative [facility] Methadone Screen Ql (U) Negative [facility] Opiates Screen Ql (U) Negative [facility] oxyCODONE Ql (U) Negative [facility] Phencyclidine Ql (U) Negative [facility] Laboratory - Microbiology an d Antimicrobial susceptibilityOrdered By: Amari Daily on 09-02-2023 SARS-CoV-2 (COVID-19) Ag IA.rapid Ql (Resp) Negative Negative [facility] Comment on above: A negative result do es not rule out the possibility of SARS-CoV-2 infection. NAAT-based methods should be considered for symptomatic patients presenting greater than seven days after onset of symptoms. Method: Lateral flow immunoassay. Fact sheets for healthcare providers and patients can be found at the following sites: https://www.Cheggin.gov/media/933095/download https://www.Cheggin.gov/Bioscale/379225/download No Panel Informationon 09-01 COCAINE METAB. SCREEN Negative [facility] The expected value for all of the drugs listed above is Negative. The following drugs or drug groups have been screened for by Immunoassay at the following thresholds: Amphetamine class (1000 ng/mL) Barbiturates (200 ng/mL) Benzodiazepines (200 ng/mL) Cocaine (300 ng/mL) Methadone (300 ng/mL) Opiates (300 ng/mL) Oxycodone (100 ng/mL) PCP (25 ng/mL) NOTE: These results are for medical treatment only. Analysis performed using non-forensic procedures. POSITIVE results are NOT confirmed by a more specific alternative method unless requested. If confirmation is needed, request confirmation under separate order. [facility] Values in should double every 2 to 3 days for the first 6 weeks. Elevated concentrations of human chorionic gonadotropin (hCG) measured in the first trimester of are observed in normal , but may serve as an indication of chorionic carcinoma, hydatiform mole, or multiple . Decreasing hCG concentrations indicate threatened or missed , recent termination of , ectopic , gestosis or intrauterine . Michell- and postmenopausal females may have detectable hCG concentrations (< or = to 14 mIU/mL) due to pituitary production of hCG. Serum follicle-stimulatin g hormone measurement may aid in ruling-out in this population. Cutoffs of greater than 20 to 45 mIU/mL have been suggested and are method dependent. False-elevations (called phantom human chorionic gonadotropin: hCG) may occur with patients who have human antianimal or heterophilic antibodies. Some specimens may not dilute linearly due to abnormal forms of hCG. Elevated hCG concentrations not associated with are found in patients with other diseases such as tumors of the germ cells, ovaries, bladder, pancreas, stomach, lungs, and liver. This test is not intended to detect or monitor tumors or gestational trophoblastic disease. [facility] Interpretation and review of laboratory results Normal [facility] SARS-COV-2 ANTIGENon 024 SARS-COV-2 ANTIGEN SARS-COV-2 ANTIGEN -BINAX Reference Negative Negative A negative result does not rule out the possibility of SARS-CoV-2 infection. NAAT-based methods should be considered for symptomatic patients presenting greater than seven days after onset of symptoms. Method: Lateral flow immunoassay. Fact sheets for healthcare providers and patients can be found at the following sites: https://www.Cheggin.gov /media/661379/downl oad https://www.Cheggin.gov /media/198349/downl oad Normal [facility] Comment on above: Performed By: #### L [id number] #### Corporate Pilot: MARIXA HOLLAND ([id number]) [facility] ([facility] [address] [place] [address] SARS-CoV-2 (COVID-19) Ag IA. rapid Ql (Resp)Ordered By: Amari Daily on 09-02-2023 Interpretation and review of laboratory results Normal [facility] Urinalysis complete panel (U )on 09-02-2023 Bacteria LM.HPF (Urine sed) [#/Area] Few Abnormal Negative /HPF [facility] Bilirubin Ql (U) Negative Negative mg/dL [facility] Clarity (U) Turbid Abnormal Clear [facility] Color (U) Light Yellow Lt. Yellow [facility] Epithelial cells.squamous LM.HPF (Urine sed) [#/Area] 6-10 Abnormal [facility] Comment on above: Few Epithelial cell clumps present Glucose Ql (U) Normal Normal (<70) mg/dL [facility] Hemoglobin Ql (U) Negative Negative mg/dL [facility] Interpretation and review of laboratory results Abnormal [facility] Ketones (U) [Mass/Vol] Negative Negat kimberly mg/dL [facility] Leukocyte esterase Test strip Ql (U) 25 Abnormal Negative Lolita/uL [facility] Mucus LM.HPF (Urine sed) [#/Area] Negative Negative /LPF [facility] Nitrite Ql (U) Negative Negative [facility] pH (U) 5.5 [pH] 5.0 - 8.[address] [facility] Protein (U) [Mass/Vol] Negative Negat kimberly mg/dL [facility] RBC LM.HPF (Urine sed) [#/Area] 0-2 [facility] Specific gravity (U) [Rel density] 1.005 1.005 - 1.030 [facility] Urobilinogen (U) [Mass/Vol] Normal Normal (0-1) mg/dL [facility] Volume, Urine 12 [facility] LM.HPF (Urine sed) [#/Area] 3-5 [facility] 36on 08-31-2023 36 Left a message to return call to [facility] for appointment with Dr. Booth on 09/04/23. If the patient calls back during business hours, please transfer to our backline. Otherwise, Please arrive 15 minutes early with your insurance card and photo ID. Thank you! [facility] 36on 08-28-2023 36 Rx sent. OARRS report reviewed with no discrepancies. CSA signed in June 2023. Follow up as scheduled. [facility] 36 Looks like she is already scheduled for 09/04/23. [facility] 36on 08-25-2023 36 Ordering provider: Dr Booth Date of last office visit: 06/28/23 Date of next office visit: 09/04/23 Updated/Validated preferred pharmacy: Yes Patient instructed to contact the pharmacy prior to picking up the medication: Yes (1) Medication name: albuterol Medication dosage: 108 (90 Base) MCG/ACT inhaler Monthly quantity needed: 1 How many day supply requestin days Medication route: inhalation (inhaler) Medication administration time(s): Inhale 2 puffs every 6 hours as needed for wheezing. If taking medication PRN, reason for taking medication: N/A If this is a controlled substance do you receive this or any other controlled medication from any other doctor or facility: N/A Date of last refill (see medication tab): 06/19/23 (2) Medication name: pregabalin (Lyrica) Medication dosage: 100mg Monthly quantity needed: 90 How many day supply requestin days Medication route: oral (PO) Medication administration time(s): Take 1 capsule (100 mg) by mouth 3 times daily. If taking medication PRN, reason for taking medication: N/A If this is a controlled substance do you receive this or any other controlled medication from any other doctor or facility: N/A Date of last refill (see medication tab): 06/19/23 (3) Medication name: losartan (Cozaar) Medication dosage: 50mg Monthly quantity needed: 30 How many day supply requestin days Medication route: oral (PO) Medication administration time(s): daily If taking medication PRN, reason for taking medication: N/A If this is a controlled substance do you receive this or any other controlled medication from any other doctor or facility: N/A Date of last refill (see medication tab): 03/21/23 (4) Medication name: metoprolol succinate XL (Toprol-XL) Medication dosage: 25mg Monthly quantity needed: 60 How many day supply requestin days Medication route: oral Medication administration time(s): 2 times a day (BID) If taking medication PRN, reason for taking medication: N/A If this is a controlled substance do you receive this or any other controlled medication from any other doctor or facility: N/A Date of last refill (see medication tab): 03/21/23 [facility] 08-24-2023 36 LM for nursing dept at [facility] - we need to know when pt will be discharged and get her and appt with Dr Booth I did give them the back line number to call the office [facility] 08-22-2023 36 thank you, keep follow-up appointment [facility] 08-21-2023 36 Patient with illicit drug use. Lyrica prescription will need to be re-evaluated. Please make sure patient has follow up scheduled with Dr. Booth after her discharge from [place]. [facility] 08-19-2023 36 Name of caller: Dhaval Moon Contact phone number: [phone] ([place]) Relationship to Patient: patient Provider: Dr. Booth Practice: [facility] Chief Complaint/Reason for Call: Patient reports she was laced with methamphetamine which caused drug induced psychosis. She was taken to [facility] and pink slipped. There were no local facilities taking patients, so she was sent to [facility] in [place]. While there, she has been struggling with pain and hasn't been receiving her medications. She is hoping Dr. Booth might be available to review her medications with [place] or possibly help her get reevaluated so she can leave sooner rather than later. Best time of day caller can be reached: Any Patient advised that office/PCP has 24-48 business hours to return their call: Yes Normal [facility] .Urinalysis Microscopic (AO) on 08-18-2023 UA Bacteria 1+ /hpf Abnormal [facility] ([place]) Comment on above: Performed By: #### U FENTS, UOXYS ####[place] [id number]#### PREGU, UDRUG, UAMICAO, UA ####[place] [id number] [place], [place] [address] UA RBC 0-5 Abnormal None Seen [facility] ([place] Comment on above: Performed By: #### U FENTS, UOXYS ####[place] [address]#### PREGU, UDRUG, UAMICAO, UA ####[place] [address] [place], [place] [address] UA Squam Epithelial 5-10 Abnormal None Seen [facility] ([place] Comment on above: Performed By: #### U FENTS, UOXYS ####[place] [address]#### PREGU, UDRUG, UAMICAO, UA ####[place] [address] [place], [place] [address] UA WBC 5-10 Abnormal None Seen [facility] [place] Comment on above: Performed By: #### U FENTS, UOXYS ####[place] [address]#### PREGU, UDRUG, UAMICAO, UA ####[place] [address] [place], [place] [address] LABORATORYOrdered By: Lazara Ca on 08-18-2023 Amphetamines Screen Ql (U) Positive *ABN* (08/18/23 1:06 AM) Invalid Interpretation Code Negative AO ADM SS Appearance (U) Clear (08/18/23 1:06 AM) Normal Clear AO Auto Urine SS Bacteria LM.HPF (Urine sed) [#/Area] 1 /[HPF] Invalid Interpretation Code AO Auto Urine SS Barbiturates Screen Ql (U) Negative *NA* (08/18/23 1:06 AM) Invalid Interpretation Code Negative AO ADM SS Benzodiazepines Ql (U) Negative *NA* (08/18/23 1:06 AM) Invalid Interpretation Code Negative AO ADM SS Benzoylecgonine Screen Ql (U) Negative *NA* (08/18/23 1:06 AM) Invalid Interpretation Code Negative AO ADM SS Bilirubin Ql (U) Large *ABN* (08/18/23 1:06 AM) Invalid Interpretation Code Negative AO Auto Urine SS Cannabinoids Screen Ql (U) Negative *NA* (08/18/23 1:06 AM) Invalid Interpretation Code Negative AO ADM SS Color (U) Dark yellow Invalid Interpretation Code AO Auto Urine SS Glucose Test strip (U) [Mass/Vol] Negative Normal Negative AO Auto Urine SS HCG ( test) Ql Negative (08/18/23 1:06 AM) Normal AO Manual Urine SS Hemoglobin Auto test strip (U) [Mass/Vol] Large *ABN* (08/18/23 1:06 AM) Invalid Interpretation Code Negative AO Auto Urine SS Ketones Ql (U) >=160 mg/dL Invalid Interpretation Code Negative AO Auto Urine SS Methadone Screen Ql (U) Negative *NA* (08/18/23 1:06 AM) Invalid Interpretation Code Negative AO ADM SS Opiates Screen Ql (U) Negative *NA* (08/18/23 1:06 AM) Invalid Interpretation Code Negative AO ADM SS Phencyclidine Ql (U) Negative *NA* (08/18/23 1:06 AM) Invalid Interpretation Code Negative AO ADM SS test (u) int Not detected Invalid Interpretation Code AO Manual Urine SS UA Leuk Est Negative (08/18/23 1:06 AM) Normal Negative AO Auto Urine SS UA Nitrite Positive *ABN* (08/18/23 1:06 AM) Invalid Interpretation Code Negative AO Auto Urine SS UA pH 6.0 (08/18/23 1:06 AM) Normal 5.0 - 8.0 AO Auto Urine SS UA Protein 30 mg/dL Normal Negative AO Auto Urine SS UA RBC 0-5 /HPF Invalid Interpretation Code None Seen AO Auto Urine SS UA Spec Grav >=1.030 *ABN* (08/18/23 1:06 AM) Invalid Interpretation Code 1.015-1.025 AO Auto Urine SS UA Specimen Type Clean Catch (08/18/23 1:06 AM) Normal AO Auto Urine SS UA Squam Epithelial 5-10 /HPF Invalid Interpretation Code None Seen AO Auto Urine SS UA Urobilinogen 1.0 E.U./dL Normal 0.2-1.0 AO Auto Urine SS Urine Drugs screened: See Below 6 (08/18/23 1:06 AM) Normal AO Chemistry S Comment on above: Interpretive Data: T his drug screen is a presumptive screening only. No confirmation will be performed unless requested. Drugs screened include: Threshold Amphetamines/Methamphetamines 1,000 ng/mL Barbiturates 200 ng/mL Benzodiazepine metabolites 200 ng/mL Cannabinoids (THC metabolites) 50 ng/mL Cocaine 300 ng/mL Opiates 300 ng/mL Methadone 300 ng/mL Phencyclidine (PCP) 25 ng/mL Testing has been performed FOR MEDICAL PURPOSES ONLY. WBC LM.HPF (Urine sed) [#/Area] 5-10 /HPF Invalid Interpretation Code None Seen AO Auto Urine SS LABORATORYOrdered By: Asya Rosenthal on 08-18-2023 fentaNYL Screen Ql (U) Negative 2 *NA* (08/18/23 1:06 AM) Invalid Interpretation Code Negative ADM SS Comment on above: Interpretive Data: T esting has been performed FOR MEDICAL PURPOSES ONLY. oxyCODONE Ql (U) Negative 3 *NA* (08/18/23 1:06 AM) Invalid Interpretation Code Negative ADM SS Comment on above: Interpretive Data: T esting has been performed FOR MEDICAL PURPOSES ONLY. PREGUon 08-18-2023 HCG ( test) Ql (U) Negative Normal [facility] ([place] Comment on above: Performed By: #### U FENTS UOXYS ####[address] [address]#### PREGU, UDRUG, UAMICAO, UA ####[facility] [place], [place] [address] test (u) int Not detected Invalid Interpretation Code [facility] ([place]) Comment on above: Performed By: #### U FENTS, UOXYS ####[place] [address]#### PREGU, UDRUG, UAMICAO, UA ####[place] [address] [place], [place] [address] UAon 08-18-2023 Color (U) Dark yellow Normal [facility] ([place]) Comment on above: Performed By: #### U FENTS, UOXYS ####[place] [address]#### PREGU, UDRUG, UAMICAO, UA ####[place] [id number] [place] [address] Glucose (U) [Mass/Vol] Negative Normal Negative [facility] ([place]) Comment on above: Performed By: #### U FENTS, UOXYS ####[place] [address]#### PREGU, UDRUG, UAMICAO, UA ####[place] [address] [place] [address] Ketones Ql (U) >=160 Abnormal Negative [facility] [place] Comment on above: Performed By: #### U FENTS, UOXYS ####[place] [address]#### PREGU, UDRUG, UAMICAO, UA ####[place] [address] [place] [address] UA Appear Clear Normal Clear [facility] ([place]) Comment on above: Performed By: #### U FENTS, UOXYS ####[place] [address]#### PREGU, UDRUG, UAMICAO, UA ####[place] [address] [place] [address] UA Bili Large Abnormal Negative [facility] ([place]) Comment on above: Performed By: #### U FENTS, UOXYS ####[place] [address]#### PREGU, UDRUG, UAMICAO, UA ####[place] [address] [place], [place] [address] UA Blood Large Abnormal Negative [facility] [place] Comment on above: Performed By: #### U FENTS UOXYS ####[place] [address]#### PREGU, UDRUG, UAMICAO, UA ####[place] [place] [address] UA Leuk Est Negative Normal Negative [facility] ([place] Comment on above: Performed By: #### U VÍCTOR UOXYS ####[place] [address]#### PREGU, UDRUG, UAMICAO, UA ####[place] [address] [place] [address] UA Nitrite Positive Abnormal Negative [facility] [place] Comment on above: Performed By: #### U VÍCTOR UOXYS ####[place] [address]#### PREGU, UDRUG, UAMICAO, UA ####[place] [address] [place] [address] UA pH 6.0 Normal 5.0 - 8.0 [facility] ([place] Comment on above: Performed By: #### U VÍCTOR UOXYS ####[place] [address]#### PREGU, UDRUG, UAMICAO, UA ####[place] [address] [place] [address] UA Protein 30 mg/dL Normal Negative [facility] ([place] Comment on above: Performed By: #### U VÍCTOR UOXYS ####[place] [address]#### PREGU, UDRUG, UAMICAO, UA ####[place] [address] [place] [address] UA Spec Grav >=1.030 Abnormal 1.015-1.025 [facility] ([place] Comment on above: Performed By: #### U FENTS, UOXYS ####[place] [address]#### PREGU, UDRUG, UAMICAO, UA ####[place] [address] [place] [address] UA Specimen Type Clean Catch Normal [facility] [place] Comment on above: Performed By: #### U FENTS, UOXYS ####[place] [address]#### PREGU, UDRUG, UAMICAO, UA ####[place] [address] [place] [address] UA Urobilinogen 1.0 E.U./dL Normal 0.2-1.0 [facility] ([place] Comment on above: Performed By: #### U FENTS, UOXYS ####[place] [address]#### PREGU, UDRUG, UAMICAO, UA ####[place] [address] [place] [address] UDRUGon 08-18-2023 Amphetamine (u) Positive Abnormal Negative [facility] [place] Comment on above: Performed By: #### U FENTS, UOXYS ####[place] [address]#### PREGU, UDRUG, UAMICAO, UA ####[place] [address] [place] [address] Barbiturate (u) Negative Normal Negative [facility] [place] Comment on above: Performed By: #### U FENTS, UOXYS ####[place] [address]#### PREGU, UDRUG, UAMICAO, UA ####[place] [address] [place] [address] Benzodiazepine (u) Negative Normal Negative [facility] ([place] Comment on above: Performed By: #### U FENTS, UOXYS ####[place] [address]#### PREGU, UDRUG, UAMICAO, UA ####[place] [address] [place] [address] Cannabinoid (u) Negative Normal Negative [facility] ([place]) Comment on above: Performed By: #### U FENTS, UOXYS ####[place] [address]#### PREGU, UDRUG, UAMICAO, UA ####[place] [place] [address] Cocaine Ql (U) Negative Normal Negative [facility] ([place]) Comment on above: Performed By: #### U FENTS, UOXYS ####[place] [address]#### PREGU, UDRUG, UAMICAO, UA ####[place] [address] [place] [address] Methadone Ql (U) Negative Normal Negative [facility] ([place]) Comment on above: Performed By: #### U FENTS, UOXYS ####[place] [address]#### PREGU, UDRUG, UAMICAO, UA ####[place] [place] [address] Opiate (u) Negative Normal Negative [facility] ([place]) Comment on above: Performed By: #### U FENTS, UOXYS ####[place] [address]#### PREGU, UDRUG, UAMICAO, UA ####[place] [address] [place] [address] PCP (u) Negative Normal Negative [facility] ([place]) Comment on above: Performed By: #### U FENTS, UOXYS ####[place] [address]#### PREGU, UDRUG, UAMICAO, UA ####[place] [address] [place] [address] Urine Drugs screened: See Below Normal [facility] ([place]) Comment on above: Result Comment: This drug screen is a presumptive screening only. No confirmation will be performed unless requested. Drugs screened include: Threshold Amphetamines/Methamphetamines 1,000 ng/mL Barbiturates 200 ng/mL Benzodiazepine metabolites 200 ng/mL Cannabinoids (THC metabolites) 50 ng/mL Cocaine 300 ng/mL Opiates 300 ng/mL Methadone 300 ng/mL Phencyclidine (PCP) 25 ng/mL Testing has been performed FOR MEDICAL PURPOSES ONLY. Performed By: #### U KRISTOPHERS UOXYS ####[place] [address]#### PREGU, UDRUG, UAMICAO, UA ####[place] [id number] [place] [id number] UFENTSon 08-18-2023 Fentanyl (u) Negative Normal Negative [facility] ([place] Comment on above: Result Comment: Test ing has been performed FOR MEDICAL PURPOSES ONLY. Performed By: #### U KRISTOPHERS UOXYS ####[place] [address]#### PREGU, UDRUG, UAMICAO, UA ####[place] [id number] UOXYSon 08-18-2023 Oxycodone (u) Negative Normal Negative [facility] [place] Comment on above: Result Comment: Test ing has been performed FOR MEDICAL PURPOSES ONLY. Performed By: #### U KRISTOPHERS UOXYS ####[place] [address]#### PREGU, UDRUG, UAMICAO, UA ####[place] [id number] .Auto Diffon 08-17-2023 Basophil, Absolute 0.0 10 3/mcL Normal 0.0-0.2 [facility] ([place]) Comment on above: Performed By: #### G FR, TROPHS, ANEU, CMP, CBC, CK, ACETA, ALC, RYANN, ADIFF, MDW #### [place] [id number] [place], [place] [address] Basophils/100 WBC (Bld) 0.5 % Normal 0.0-2.5 A [facility] ([place] Comment on above: Performed By: #### G FR, TROPHS, ANEU, CMP, CBC, CK, ACETA, ALC, RYANN, ADIFF, YESSI #### [address] [address] Eosinophil, Absolute 0.2 10 3/mcL Normal 0.0-0.4 [facility] ([place] Comment on above: Performed By: #### G FR, TROPHS, ANEU, CMP, CBC, CK, ACETA, ALC, RYANN, ADIFF, MDRosie #### [address] [address] Eosinophils/100 WBC (Bld) 2.8 % Normal 0.0-7.0 [facility] ([place] Comment on above: Performed By: #### G FR, TROPHS, ANEU, CMP, CBC, CK, ACETA, ALC, RYANN, ADIFF, YESSI #### [address] [address] Lymphocyte, Absolute 1.7 10 3/mcL Normal 0.8-3.9 [facility] ([place] Comment on above: Performed By: #### G FR, TROPHS, ANEU, CMP, CBC, CK, ACETA, ALC, RYANN, ADIFF, YESSI #### [address] [address] Lymphocytes/100 WBC (Bld) 21.3 % Normal 10.0-50.0 [facility] ([place] Comment on above: Performed By: #### G FR, TROPHS, ANEU, CMP, CBC, CK, ACETA, ALC, RYANN, ADIFF, YESSI #### [address] [address] Monocyte, Absolute 0.8 10 3/mcL Normal 0.2-1.0 [facility] ([place] Comment on above: Performed By: #### G FR, TROPHS, ANEU, CMP, CBC, CK, ACETA, ALC, RYANN, ADIFF, YESSI #### [address] [address] Monocytes/100 WBC (Bld) 9.4 % Normal 1.7-13.0 A [facility] ([place] Comment on above: Performed By: #### G FR, TROPHS, ANEU, CMP, CBC, CK, ACETA, ALC, RYANN, ADIFF, YESSI #### [place] [address] [address] Neutrophils/100 WBC (Bld) 66.0 % Normal 37.0-80.0 [facility] ([place] Comment on above: Performed By: #### G FR, TROPHS, ANEU, CMP, CBC, CK, ACETA, ALC, RYANN, ADJOSS, YESSI #### [address] [address] .GFRon 08-17-2023 GFR 156 ml/min/1.73sqm Normal [facility] ([place] Comment on above: Result Comment: GFR Population mean for , Non- Americans Ages 20-29 = 116 mL/min/1.73 sq.m. Ages 30-39 = 107 mL/min/1.73 sq.m. Ages 40-49 = 99 mL/min/1.73 sq.m. Ages 50-59 = 93 mL/min/1.73 sq.m. Ages 60-69 = 85 mL/min/1.73 sq.m. Ages 70+ = 75 mL/min/1.73 sq.m. Chronic Kidney Disease: Less than 60 mL/min/1.73 square meters End Stage Renal Disease: Less than 15 mL/min/1.73 square meters Performed By: #### G FR, TROPHS, ANEU, CMP, CBC, CK, ACETA, ALC, RYANN, ADIFF, YESSI ####[address] [address] GFR Non- 129 ml/min/1.73sqm Normal [facility] ([place] Comment on above: Result Comment: GFR Population mean for , Non- Americans Ages 20-29 = 116 mL/min/1.73 sq.m. Ages 30-39 = 107 mL/min/1.73 sq.m. Ages 40-49 = 99 mL/min/1.73 sq.m. Ages 50-59 = 93 mL/min/1.73 sq.m. Ages 60-69 = 85 mL/min/1.73 sq.m. Ages 70+ = 75 mL/min/1.73 sq.m. Chronic Kidney Disease: Less than 60 mL/min/1.73 square meters End Stage Renal Disease: Less than 15 mL/min/1.73 square meters Performed By: #### G FR, TROPHS, ANEU, CMP, CBC, CK, ACETA, ALC, RYANN, ADIFFYESSI ####[address] [address] .MDWon 08-17-2023 Monocyte Distribution Width 19.16 Normal 0.00-20.00 [facility] ([place]) Comment on above: Result Comment: For ED adult patients suspected of sepsis, MDW<=20.0 does not rule out sepsis or risk of sepsis Performed By: #### G FR, TROPHS, ANEU, CMP, CBC, CK, ACETA, ALC, RYANN, ADYESSI COREAS #### [address] [address] .NEUABSon 08-17-2023 Neutrophil, Absolute 5.3 10 3/mcL Normal 2.9-6.2 [facility] ([place] Comment on above: Performed By: #### G FR, TROPHS, ANEU, CMP, CBC, CK, ACETA, ALC, RYANN, ADIFFYESSI #### [address] [address] ACETAon 08-17-2023 Acetaminophen [Mass/Vol] 0.0 ug/mL Low 10.0-30.0 [facility] ([place] Comment on above: Performed By: #### G FR, TROPHS, ANEU, CMP, CBC, CK, ACETA, ALC, RYANN, ADIFFYESSI ####[address] [address] Ger 08-17-2023 Ethanol Level <3 Normal 0-3 [facility] ([place] Comment on above: Performed By: #### G FR, TROPHS, ANEU, CMP, CBC, CK, ACETA, ALC, RYANN, ADIFF, YESSI #### [address] [address] CBCon 08-17-2023 Erythrocyte distribution width (RBC) [Ratio] 15.1 % High 11.5-14.5 [facility] ([place] Comment on above: Performed By: #### G FR, TROPHS, ANEU, CMP, CBC, CK, ACETA, ALC, RYANN, ADIFF, YESSI #### [place] [phone] Hematocrit (Bld) [Volume fraction] 48.9 % High 37.0-47.0 [facility] [place] Comment on above: Performed By: #### G FR, TROPHS, ANEU, CMP, CBC, CK, ACETA, ALC, RYANN, ADJOSS, YESSI #### [place] [address] Hgb 16.3 G/dL High 12.0-16.0 [facility] [place] Comment on above: Performed By: #### G FR, TROPHS, ANEU, CMP, CBC, CK, ACETA, ALC, RYANN, ADJOSS, YESSI #### [address] [address] MCH (RBC) [Entitic mass] 32.1 pg High 27.0-31.2 [facility] ([place] Comment on above: Performed By: #### G FR, TROPHS, ANEU, CMP, CBC, CK, ACETA, ALC, RYANN, ADIFF, YESSI #### [address] [address] MCHC 33.3 G/dL Normal 33.0-37.0 [facility] ([place] Comment on above: Performed By: #### G FR, TROPHS, ANEU, CMP, CBC, CK, ACETA, ALC, RYANN, ADIFF, YESSI #### [address] [address] MCV (RBC) [Entitic vol] 96.4 fL High 80.0-94.0 A [facility] [place] Comment on above: Performed By: #### G FR, TROPHS, ANEU, CMP, CBC, CK, ACETA, ALC, RYANN, ADIFF, YESSI #### [address] [address] Platelet 208 10 3/mcL Normal 130-400 [facility] ([place] Comment on above: Performed By: #### G FR, TROPHS, ANEU, CMP, CBC, CK, ACETA, ALC, RYANN, ADIFF, YESSI #### [address] [address] Platelet mean volume (Bld) [Entitic vol] 9.0 fL Normal 7.4-10.4 [facility] ([place] Comment on above: Performed By: #### G FR, TROPHS, ANEU, CMP, CBC, CK, ACETA, ALC, RYANN, ADIFF, YESSI #### [address] [address] RBC 5.07 10 6/mcL Normal 4.20-5.40 [facility] [place] Comment on above: Performed By: #### G FR, TROPHS, ANEU, CMP, CBC, CK, ACETA, ALC, RYANN, ADIFF, YESSI #### [address] [address] WBC 8.1 10 3/mcL Normal 4.6-10.8 [facility] [place] Comment on above: Performed By: #### G FR, TROPHS, ANEU, CMP, CBC, CK, ACETA, ALC, RYANN, ADIFFYESSI #### [address] [address] CKon 08-17-2023 CK [Catalytic activity/Vol] 96 U/L Normal 26-192 [facility] ([place] Comment on above: Performed By: #### G FR, TROPHS, ANEU, CMP, CBC, CK, ACETA, ALC, RYANN, ADIFF, YESSI #### [address] [address] CMPon 08-17-2023 Albumin Level 3.6 G/dL Normal 3.5-5.0 [facility] [place] Comment on above: Performed By: #### G FR, TROPHS, ANEU, CMP, CBC, CK, ACETA, ALC, RYANN, ADYESSI COREAS #### [address] [address] Albumin/Globulin [Mass ratio] 0.8 {ratio} Low 1.1-2.5 [facility] ([place] Comment on above: Performed By: #### G FR, TROPHS, ANEU, CMP, CBC, CK, ACETA, ALC, RYANN, ADIFF, YESSI #### [address] [address] ALP [Catalytic activity/Vol] 101 U/L Normal 40-135 [facility] ([place] Comment on above: Performed By: #### G FR, TROPHS, ANEU, CMP, CBC, CK, ACETA, ALC, RYANN, ADIFFYESSI #### [place] [address] ALT [Catalytic activity/Vol] 36 U/L Normal 14-59 [facility] ([place] Comment on above: Performed By: #### G FR, TROPHS, ANEU, CMP, CBC, CK, ACETA, ALC, RYANN, ADYESSI COREAS #### [address] [address] AST [Catalytic activity/Vol] 50 U/L High 10-40 [facility] [place] Comment on above: Performed By: #### G FR, TROPHS, ANEU, CMP, CBC, CK, ACETA, ALC, RYANN, ADIFFYESSI #### [address] [address] Bili Total 3.1 mg/dL High 0.2-1.0 [facility] [place] Comment on above: Result Comment: Use of this assay is not recommended for patients undergoing treatment with eltrombopag due to the potential for falsely elevated results. Performed By: #### G FR, TROPHS, ANEU, CMP, CBC, CK, ACETA, ALC, RYANN, ADIFF, YESSI #### [place] [phone] BUN/Creatinine Ratio 26 ratio Normal 7-27 [facility] [place] Comment on above: Performed By: #### G FR, TROPHS, ANEU, CMP, CBC, CK, ACETA, ALC, RYANN, ADIFF, YESSI #### [address] [address] Calcium [Mass/Vol] 9.6 mg/dL Normal 8.4-10.2 [facility] [place] Comment on above: Performed By: #### G FR, TROPHS, ANEU, CMP, CBC, CK, ACETA, ALC, RYANN, ADIFF, YESSI #### [place] [address] Chloride [Moles/Vol] 99 mmol/L Normal 98-107 [facility] [place] Comment on above: Performed By: #### G FR, TROPHS, ANEU, CMP, CBC, CK, ACETA, ALC, RYANN, ADIFF, YESSI #### [address] [address] CO2 [Moles/Vol] 20 mmol/L Low 22-29 [facility] [place] Comment on above: Performed By: #### G FR, TROPHS, ANEU, CMP, CBC, CK, ACETA, ALC, RYANN, ADIFF, YESSI #### [place] [address] Creatinine [Mass/Vol] 0.58 mg/dL Normal 0.55-1.02 [facility] [place] Comment on above: Performed By: #### G FR, TROPHS, ANEU, CMP, CBC, CK, ACETA, ALC, RYANN, ADIFF, YESSI #### [address] [address] Electrolyte Balance 18.0 mEq/L High 4.0-15.0 [facility] ([place] Comment on above: Performed By: #### G FR, TROPHS, ANEU, CMP, CBC, CK, ACETA, ALC, RYANN, ADIFF, YESSI #### [place] [address] Globulin 4.6 G/dL Normal [facility] ([place] Comment on above: Performed By: #### G FR, TROPHS, ANEU, CMP, CBC, CK, ACETA, ALC, RYANN, YESSI TOBIAS #### [address] [address] Glucose [Mass/Vol] 79 mg/dL Normal 70-105 [facility] [place] Comment on above: Performed By: #### G FR, TROPHS, ANEU, CMP, CBC, CK, ACETA, ALC, RYANN, ADJOSS, YESSI #### [address] [address] Potassium [Moles/Vol] 3.1 mmol/L Low 3.5-5.1 [facility] ([place] Comment on above: Performed By: #### G FR, TROPHS, ANEU, CMP, CBC, CK, ACETA, ALC, RYANN, ADYESSI COREAS #### [address] [address] Sodium [Moles/Vol] 137 mmol/L Normal 136-145 [facility] [place] Comment on above: Performed By: #### G FR, TROPHS, ANEU, CMP, CBC, CK, ACETA, ALC, RYANN, ADYESSI COREAS #### [address] [address] Total Protein 8.2 G/dL Normal 6.4-8.2 [facility] [place] Comment on above: Performed By: #### G FR, TROPHS, ANEU, CMP, CBC, CK, ACETA, ALC, RYANN, YESSI TOBIAS #### [address] [address] Urea nitrogen [Mass/Vol] 15 mg/dL Normal 7-18 [facility] [place] Comment on above: Performed By: #### G FR, TROPHS, ANEU, CMP, CBC, CK, ACETA, ALC, RYANN, ADJOSS, YESSI #### [address] [address] CVFLURVon 08-17-2023 FLU A PCR Negative Normal Negative [facility] [place] Comment on above: Performed By: #### C VFLURV #### [address] [address] FLU B PCR Negative Normal Negative [facility] ([place] Comment on above: Performed By: #### C VFLURV #### [address] [address] RSV PCR Negative Normal Negative [facility] [place] Comment on above: Performed By: #### C VFLURV #### [address] [address] SARS-CoV-2 (COVID-19) RNA AZALEA+probe Ql (Unsp spec) Negative Normal Negative [facility] ([place] Comment on above: Result Comment: Resu lts from the Xpert Xpress CoV-2/Flu/RSV plus test should be correlated with the clinical history, epidemiological data, and other data available to the clinical evaluating the patient. Performance of the Xpert Xpress CoV-2/Flu/RSV plus test has only been established in nasopharyngeal swab specimen. Erroneous test results might occur from improper specimen collection, failure to follow the recommended sample collection, handling and storage procedures, technical error, or sample mix-up. False negative results may occur if a virus is present at a level below the analytical limit of detection. Viral nucleic acid may persist in vivo, independent of virus viability. Detection of analyte target(s) does not imply that the corresponding virus(es) are infectious or are the causative agents for clinical symptoms. Recent patient exposure to FluMist or other live attenuated influenza vaccines may cause inaccurate positive results. Performed By: #### C VFLURV #### [address] [address] LABORATORYOrdered By: Norberto Rhoades on 08-17-2023 Acetaminophen [Mass/Vol] 0.0 ug/mL Low 10. 0 - 30.0 mcg/mL AO Chemistry S FLUAV RNA AZALEA+probe Ql (Resp) Negative (08/17/23 9:37 PM) Normal Negative AO Auto Urine SS FLUBV RNA AZALEA+probe Ql (Resp) Negative (08/17/23 9:37 PM) Normal Negative AO Auto Urine SS RSV RNA AZALEA+probe Ql (Resp) Negative (08/17/23 9:37 PM) Normal Negative AO Auto Urine SS Salicylates [Mass/Vol] mg/dL Low 2.8 - 20.0 mg/dL AO Chemistry S SARS-CoV-2 (COVID-19) RNA AZALEA+probe Ql (Resp) Negative 7 (08/17/23 9:37 PM) Normal Negative AO Auto Urine SS Comment on above: Interpretive Data: R esults from the Xpert Xpress CoV-2/Flu/RSV plus test should be correlated with the clinical history, epidemiological data, and other data available to the clinical evaluating the patient. Performance of the Xpert Xpress CoV-2/Flu/RSV plus test has only been established in nasopharyngeal swab specimen. Erroneous test results might occur from improper specimen collection, failure to follow the recommended sample collection, handling and storage procedures, technical error, or sample mix-up. False negative results may occur if a virus is present at a level below the analytical limit of detection. Viral nucleic acid may persist in vivo, independent of virus viability. Detection of analyte target(s) does not imply that the corresponding virus(es) are infectious or are the causative agents for clinical symptoms. Recent patient exposure to FluMist or other live attenuated influenza vaccines may cause inaccurate positive results. LABORATORYOrdered By: SYSTEM SYSTEM on 08-17-2023 Albumin BCP dye [Mass/Vol] 3.6 G/dL Normal 3.5 - 5.0 G/dL AO ADM SS Albumin/Globulin [Mass ratio] 0.8 {ratio} Low 1.1 - 2.5 ratio AO ADM SS ALP [Catalytic activity/Vol] 101 U/L Normal 40 - 135 U/L AO ADM SS ALT With P-5'-P [Catalytic activity/Vol] 36 U/L Normal 14 - 59 U/L AO ADM SS AST With P-5'-P [Catalytic activity/Vol] 50 U/L High 10 - 40 U/L AO ADM SS Basophil, Absolute 0.0 103/mcL Normal 0.0 - 0.2 10^3/mcL AO Workflow SS Basophils/100 WBC (Bld) 0.5 % Normal 0.0 - 2.5 % AO Workflow SS Bilirubin [Mass/Vol] 3.1 mg/dL High 0.2 - 1 .0 mg/dL AO ADM SS Comment on above: Interpretive Data: U se of this assay is not recommended for patients undergoing treatment with eltrombopag due to the potential for falsely elevated results. Calcium [Mass/Vol] 9.6 mg/dL Normal 8.4 - 10. 2 mg/dL AO ADM SS Chloride [Moles/Vol] 99 mmol/L Normal 98 - 10 7 mmol/L AO ADM SS CK [Catalytic activity/Vol] 96 U/L Normal 26 - 192 U/L AO ADM SS CO2 [Moles/Vol] 20 mmol/L Low 22 - 29 mmol/L AO ADM SS Creatinine [Mass/Vol] 0.58 mg/dL Normal 0.55 - 1.02 mg/dL AO ADM SS Electrolyte Balance 18.0 mEq/L High 4.0 - 15 .0 mEq/L AO ADM SS Eosinophil, Absolute 0.2 103/mcL Normal 0.0 - 0 .4 10^3/mcL AO Workflow SS Eosinophils/100 WBC (Bld) 2.8 % Normal 0.0 - 7.0 % AO Workflow SS Erythrocyte distribution width (RBC) [Ratio] 15.1 % High 11.5 - 14.5 % AO Workflow SS Ethanol [Mass/Vol] mg/dL Normal 0 - 3 mg/dL AO AD M SS GFR/1.73 sq M.predicted among blacks MDRD (S/P/Bld) [Vol rate/Area] 156 ml/min/1.73sqm Invalid Interpretation Code AO Chemistry S Comment on above: Interpretive Data: GFR Population mean for , Non- Americans Ages 20-29 = 116 mL/min/1.73 sq.m. Ages 30-39 = 107 mL/min/1.73 sq.m. Ages 40-49 = 99 mL/min/1.73 sq.m. Ages 50-59 = 93 mL/min/1.73 sq.m. Ages 60-69 = 85 mL/min/1.73 sq.m. Ages 70+ = 75 mL/min/1.73 sq.m. Chronic Kidney Disease: Less than 60 mL/min/1.73 square meters End Stage Renal Disease: Less than 15 mL/min/1.73 square meters GFR/1.73 sq M.predicted among non-blacks MDRD (S/P/Bld) [Vol rate/Area] 129 ml/min/1.73sqm Invalid Interpretation Code AO Chemistry S Comment on above: Interpretive Data: GFR Population mean for , Non- Americans Ages 20-29 = 116 mL/min/1.73 sq.m. Ages 30-39 = 107 mL/min/1.73 sq.m. Ages 40-49 = 99 mL/min/1.73 sq.m. Ages 50-59 = 93 mL/min/1.73 sq.m. Ages 60-69 = 85 mL/min/1.73 sq.m. Ages 70+ = 75 mL/min/1.73 sq.m. Chronic Kidney Disease: Less than 60 mL/min/1.73 square meters End Stage Renal Disease: Less than 15 mL/min/1.73 square meters Globulin 4.6 G/dL Invalid Interpretation Code AO ADM SS Glucose [Mass/Vol] 79 mg/dL Normal 70 - 105 mg/dL AO ADM SS Hematocrit (Bld) [Volume fraction] 48.9 % High 37.0 - 47.0 % AO Workflow SS Hemoglobin (Bld) [Mass/Vol] 16.3 G/dL High 12.0 - 16.0 G/dL AO Workflow SS Lymphocyte, Absolute 1.7 103/mcL Normal 0.8 - 3 .9 10^3/mcL AO Workflow SS Lymphocytes/100 WBC (Bld) 21.3 % Normal 10.0 - 50.0 % AO Workflow SS MCH (RBC) [Entitic mass] 32.1 pg High 27. 0 - 31.2 pg AO Workflow SS MCHC 33.3 G/dL Normal 33.0 - 37.0 G/dL AO Workflow SS MCV (RBC) [Entitic vol] 96.4 fL High 80.0 - 94.0 fL AO Workflow SS Monocyte distribution width Auto (Bld) [Entitic vol] 19.16 1 Normal 0.00 - 20.00 AO Workflow SS Comment on above: Result Comment: For ED adult patients suspected of sepsis, MDW<=20.0 does not rule out sepsis or risk of sepsis Monocyte, Absolute 0.8 103/mcL Normal 0.2 - 1.0 10^3/mcL AO Workflow SS Monocytes/100 WBC (Bld) 9.4 % Normal 1.7 - 13.0 % AO Workflow SS Neutrophil, Absolute 5.3 103/mcL Normal 2.9 - 6 .2 10^3/mcL AO Workflow SS Neutrophils/100 WBC (Bld) 66.0 % Normal 37.0 - 80.0 % AO Workflow SS Platelet mean volume (Bld) [Entitic vol] 9.0 fL Normal 7.4 - 10.4 fL AO Workflow SS Platelets (Bld) [#/Vol] 208 103/mcL Normal 130 - 400 10^3/mcL AO Workflow SS Potassium [Moles/Vol] 3.1 mmol/L Low 3.5 - 5.1 mmol/L AO ADM SS Protein [Mass/Vol] 8.2 G/dL Normal 6.4 - 8.2 G/dL AO ADM SS RBC (Bld) [#/Vol] 5.07 106/mcL Normal 4.20 - 5.4 0 10^6/mcL AO Workflow SS Sodium [Moles/Vol] 137 mmol/L Normal 136 - 145 mmol/L AO ADM SS Troponin I.cardiac DL <= 0.01 ng/mL [Mass/Vol] 13 ng/L Normal 0 - 51 ng/L AO ADM SS Comment on above: Interpretive Data: H igh Sensitive Troponin I Reference Ranges: Female: 0-51 ng/L Male: 0-76 ng/L Testing performed on [employer] EXL using a homogeneous sandwich chemiluminescent immunoassay based on IntuiLab technology. Urea nitrogen [Mass/Vol] 15 mg/dL Normal 7 - 18 mg/d L AO ADM SS Urea nitrogen/Creatinine [Mass ratio] 26 ratio Normal 7 - 27 ratio AO ADM SS WBC (Bld) [#/Vol] 8.1 103/mcL Normal 4.6 - 10.8 10^3/mcL AO Workflow SS SALon 08-17-2023 Salicylate Level <0.2 Low 2.8-20.0 [facility] [place]) Comment on above: Performed By: #### G FR, TROPHS, ANEU, CMP, CBC, CK, ACETA, ALC, RYANN, ADIFF, MDW ####[id number] [place], [place] [address] [facility] 08-17-2023 High Sensitivity Troponin I 13 ng/L Normal 0-51 [facility] ([place]) Comment on above: Result Comment: High Sensitive Troponin I Reference Ranges: Female: 0-51 ng/L Male: 0-76 ng/L Testing performed on PayStand EXL using a homogeneous sandwich chemiluminescent immunoassay based on IntuiLab technology. Performed By: #### G FR, TROPHS, ANEU, CMP, CBC, CK, ACETA, ALC, RYANN, MD JATINDERW #### Alhaji [address] [address] 36on 07-03-2023 36 Message released to patient as written. Patient's further questions if applicable: Blood sugar and chemistry are essentially normal, liver tests are almost back to completely normal. Cholesterol is excellent. Left a message to return call. Mailed letter to contact the office. Were all questions from office addressed or relayed to the patient from encounter: Yes [facility] 36 ----- Message from Anthony Booth MD sent at 06/29/2023 6:25 AM EDT ----- Blood sugar and chemistry are essentially normal, liver tests are almost back to completely normal. Cholesterol is excellent. Left a message to return call. Mailed letter to contact the office. Normal [facility] 36on 06-30-2023 36 Left a message to return call. Normal [facility] 36on 06-29-2023 36 LM to return call Normal [facility] 36 ----- Message from Anthony Booth MD sent at 06/29/2023 6:25 AM EDT ----- Blood sugar and chemistry are essentially normal, liver tests are almost back to completely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 Packs/day: 0.50 Years: 5.00 Additional pack years: 0.00 Total pack years: 2.50 Types: Cigarettes Smokeless tobacco: Never Vaping Use Vaping Use: Never used Substance and Sexual Activity Alcohol use: Yes Comment: relapsed, was drinking past few days Drug use: Yes Frequency: 1.0 times per week Types: Marijuana, Crack Cocaine Comment: used coke with friend yesterday Sexual activity: Not Currently ALLERGIES Allergen Reactions Penicillins Review of Systems Constitutional: Negative for chills, fatigue, fever and unexpected weight change. HENT: Negative for hearing loss, rhinorrhea and sore throat. Eyes: Negative for photophobia. Respiratory: Negative for cough, chest tightness and shortness of breath. Cardiovascular: Negative for chest pain, palpitations and leg swelling. Gastrointestinal: Negative for abdominal pain, blood in stool and vomiting. Endocrine: Negative for polydipsia and polyuria. Genitourinary: Negative for dysuria and hematuria. Musculoskeletal: Negative for joint swelling and myalgias. Skin: Negative for rash and wound. Neurological: Negative for dizziness, syncope, weakness and light-headedness. Slurring words with intoxication All other systems reviewed and are negative. Physical Exam Vitals [06/17/231922] BP Pulse Temp Temp src Resp SpO2 Weight Height 117/72 (!) 109 36.6 ?C (97.8 ?F) Oral 18 95 % 118.4 kg (261 lb) 1.549 m (5' 1 ) Physical Exam Vitals and nursing note reviewed. Constitutional: General: She is not in acute distress. Appearance: Normal appearance. HENT: Head: Normocephalic and atraumatic. Right Ear: External ear normal. Left Ear: External ear normal. Nose: Nose normal. No congestion. Mouth/Throat: Mouth: Mucous membranes are moist. Pharynx: Oropharynx is clear. No oropharyngeal exudate. Eyes: General: No scleral icterus. Extraocular Movements: Extraocular movements intact. Conjunctiva/sclera: Conjunctivae normal. Pupils: Pupils are equal, round, and reactive to light. Cardiovascular: Rate and Rhythm: Normal rate and regular rhythm. Pulses: Normal pulses. Heart sounds: Normal heart sounds. No murmur heard. No friction rub. No gallop. Pulmonary: Effort: Pulmonary effort is normal. No respiratory distress. Breath sounds: Normal breath sounds. No stridor. No wheezing, rhonchi or rales. Abdominal: General: Abdomen is flat. Bowel sounds are normal. There is no distension. Palpations: Abdomen is soft. Tenderness: There is no abdominal tenderness. There is no right CVA tenderness, left CVA tenderness, guarding or rebound. Musculoskeletal: General: Normal range of motion. Cervical back: Normal range of motion. No muscular tenderness. Right lower leg: No edema. Left lower leg: No edema. Lymphadenopathy: Cervical: No cervical adenopathy. Skin: General: Skin is warm and dry. Capillary Refill: Capillary refill takes less than 2 seconds. Findings: No lesion or rash. Neurological: General: No focal deficit present. Mental Status: She is alert and oriented to person, place, and time. Cranial Nerves: No cranial nerve deficit. Sensory: No sensory deficit. Motor: No weakness. Coordination: Coordination normal. Comments: Patient slurring words and smelling of alcohol Diagnostic Testing ED Labs Ordered and Reviewed - No data to display Procedures ED Course / Clinical Impression MDM / Disposition / Plan 32-year- (more content not included)... Normal [facility] Ethanol SerPl-mCncon 024 Ethanol [Mass/Vol] 0.249 gm/dL High <0.010 [facility] Comment on above: Order Comment: Speci men Type: BLOOD SPECIMEN Ordering Facility: [facility] Address: [address] [place] [address] Performed By: #### 3 4528-0, 81715-7 #### [facility] CLIA [id number] [address] [place] [address] [place] HCG Preg Ur Qlon 06-17-2023 HCG ( test) Ql (U) Negative Normal Negative [facility] Comment on above: Order Comment: Specshane merlos Type: BLOOD SPECIMEN Ordering Facility: [facility] Address: [address] [place] [address] Result Comment: This test is intended to aid in the early detection of . Very dilute urine samples, as indicated by a low specific gravity, may not contain international sales representative levels of hCG. This test detects intact hCG only. This test does not reliably detect hCG degradation products, including free-beta subunit and beta-core fragment. Therefore, this test may show reduced reactivity in urine after 8 weeks gestation. A number of conditions other than , including trophoblastic disease and certain non-trophoblastic neoplasms cause elevated levels of hCG. As with any assay employing mouse antibodies, the possibility exists for interference by human anti-mouse antibodies (HAMA) in the specimen. The test provides a presumptive diagnosis for . Performed By: #### 3 4528-0, 48577-6 #### [facility] CLIA [id number] [address] [place] [address] [place] SARS-CoV-2 RNA Resp Ql AZALEA+p robeon 06-17-2023 SARS-CoV-2 (COVID-19) RNA AZALEA+probe Ql (Resp) COVID 19 RESULT: Not detected The method used is RT-PCR or an equivalent NAAT method. Reference Range(the expected result in uninfected individuals): Not detected Normal [facility] Comment on above: Performed By: #### 3 4528-0, 87805-0 #### [facility] CLIA [id number] [address] [place] [address] [place] Salicylates SerPl-mCncon Salicylates [Mass/Vol] mg/dL Normal 2.8-20.0 [facility] Comment on above: Order Comment: Speci men Type: BLOOD SPECIMEN Ordering Facility: [facility] Address: [address] [place] [address] Result Comment: Refe rence ranges and high/low indicator flags are provided as general guidelines only. The treating physician must determine appropriate target levels/dosing based on the specific clinical situation. Performed By: #### 3 4528-0, 25695-1 #### [facility] CLIA [id number] [address] [place] [address] [place] TOXICOLOGY SCREEN, ROUTINE U RINEon 06-17-2023 Amphetamines Confirm (U) [Mass/Vol] Negative Normal Negative [facility] Comment on above: Order Comment: Speci men Type: BLOOD SPECIMEN Ordering Facility: [facility] Address: [address] [place] [address] Result Comment: Cuto ff threshold at 1000 ng/mL. Performed By: #### 3 4528-0, 38113-8 #### [facility] CLIA [id number] [address] [place] [address] [place] BARBITURATES, URINE Positive Abnormal Negative [facility] Comment on above: Order Comment: Speci men Type: BLOOD SPECIMEN Ordering Facility: [facility] Address: [address] [place] [address] Result Comment: Cuto ff threshold at 200 ng/mL. Performed By: #### 3 4528-0, 56276-1 #### [facility] CLIA [id number] [address] [place] [address] [place] BENZODIAZEPINES, UR Negative Normal Negative [facility] Comment on above: Order Comment: Speci men Type: BLOOD SPECIMEN Ordering Facility: [facility] Address: [address] [place] [address] Result Comment: Cuto ff threshold at 200 ng/mL. Performed By: #### 3 4528-0, 61703-2 #### [facility] CLIA [id number] [address] [place] [address] [place] Cannabinoids Screen Ql (U) Negative Normal Negative [facility] Comment on above: Order Comment: Speci men Type: BLOOD SPECIMEN Ordering Facility: [facility] Address: [address] [place] [address] Result Comment: Cuto ff threshold at 50 ng/mL. Performed By: #### 3 4528-0, 13725-1 #### [facility] CLIA [id number] [address] [place] [address] [place] Cocaine Ql (U) Negative Normal Negative [facility] Comment on above: Order Comment: Speci men Type: BLOOD SPECIMEN Ordering Facility: [facility] Address: [address] [place] [address] Result Comment: Cuto ff threshold at 300 ng/mL. Performed By: #### 3 4528-0, 58935-4 #### [facility] CLIA [id number] [address] [place] [address] [place] Opiates Screen Ql (U) Negative Normal Negative [facility] Comment on above: Order Comment: Speci men Type: BLOOD SPECIMEN Ordering Facility: [facility] Address: [address] [place] [address] Result Comment: Cuto ff threshold at 300 ng/mL. Performed By: #### 3 4528-0, 42478-5 #### [facility] CLIA [id number] [address] [place] [address] [place] Phencyclidine Ql (U) Negative Normal Negative [facility] Comment on above: Order Comment: Speci men Type: BLOOD SPECIMEN Ordering Facility: [facility] Address: [address] [place] [address] Result Comment: Cuto ff threshold at 25 ng/mL. Performed By: #### 3 4528-0, 59010-2 #### [facility] CLIA [id number] [address] [place] [address] Urinalysis complete panel (U )on 06-17-2023 Bacteria LM.HPF (Urine sed) [#/Area] None Seen Normal None Seen [facility] Comment on above: Order Comment: Speci men Type: BLOOD SPECIMEN Ordering Facility: [facility] Address: [address] [place] [address] Performed By: #### 3 4528-0, 50954-4 #### [facility] CLIA [id number] [address] [place] [address] Bilirubin Ql (U) Negative Normal Negative [facility] Comment on above: Order Comment: Speci men Type: BLOOD SPECIMEN Ordering Facility: [facility] Address: [address] [place] [address] Performed By: #### 3 4528-0, 66157-5 #### [facility] CLIA [id number] [address] [place] [address] [place] Clarity (Unsp spec) Clear Normal Clear [facility] Comment on above: Order Comment: Speci men Type: BLOOD SPECIMEN Ordering Facility: [facility] Address: [address] [place] [address] Performed By: #### 3 4528-0, 45307-6 #### [facility] CLIA [id number] [address] [place] [address] STATES [facility] Color (U) Straw Normal Yellow [facility] Comment on above: Order Comment: Speci men Type: BLOOD SPECIMEN Ordering Facility: [facility] Address: [address] [place] [address] Performed By: #### 3 4528-0, 38379-4 #### [facility] CLIA [id number] [address] [place] [address] [place] Epithelial cells LM.HPF (Urine sed) [#/Area] Few Normal [facility] Comment on above: Order Comment: Speci men Type: BLOOD SPECIMEN Ordering Facility: [facility] Address: [address] [place] [address] Performed By: #### 3 4528-0, 41587-6 #### [facility] CLIA [id number] [address] [place] [address] [place] Glucose Test strip (U) [Mass/Vol] Negative Normal Negative [facility] Comment on above: Order Comment: Speci men Type: BLOOD SPECIMEN Ordering Facility: [facility] Address: [address] [place] [address] Performed By: #### 3 4528-0, 18050-6 #### [facility] CLIA [id number] [address] [place] [address] [place] Hemoglobin Ql (U) Negative Normal Negative [facility] Comment on above: Order Comment: Speci men Type: BLOOD SPECIMEN Ordering Facility: [facility] Address: [address] [place] [address] Performed By: #### 3 4528-0, 24869-0 #### [facility] CLIA [id number] [address] [place] [address] [place] Ketones Ql (U) Negative Normal Negative [facility] Comment on above: Order Comment: Speci men Type: BLOOD SPECIMEN Ordering Facility: [facility] Address: [address] [place] [address] Performed By: #### 3 4528-0, 84314-3 #### [facility] CLIA [id number] [address] [place] [address] OF [place] Leukocyte esterase Test strip Ql (U) Negative Normal Negative [facility] Comment on above: Order Comment: Speci men Type: BLOOD SPECIMEN Ordering Facility: [facility] Address: [address] [place] [address] Performed By: #### 3 4528-0, 76735-4 #### [facility] CLIA [id number] [address] [place] [address] [place] Nitrite Ql (U) Negative Normal Negative [facility] Comment on above: Order Comment: Speci men Type: BLOOD SPECIMEN Ordering Facility: [facility] Address: [address] [place] [address] Performed By: #### 3 4528-0, 24631-0 #### [facility] CLIA [id number] [address] [place] [address] [place] pH (U) 6.0 [pH] Normal 5.0-8.0 [facility] Comment on above: Order Comment: Speci men Type: BLOOD SPECIMEN Ordering Facility: [facility] Address: [address] [place] [address] Performed By: #### 3 4528-0, 07753-7 #### [facility] CLIA [id number] [address] [place] [address] [place] Protein (U) [Mass/Vol] Negative Normal Negative [facility] Comment on above: Order Comment: Speci men Type: BLOOD SPECIMEN Ordering Facility: [facility] Address: [address] [place] [address] Performed By: #### 3 4528-0, 83290-8 #### [facility] CLIA [id number] [address] [place] [address] [place] RBC LM.HPF (Urine sed) [#/Area] 0-3 /HPF Normal 0-3 /HPF [facility] Comment on above: Order Comment: Speci men Type: BLOOD SPECIMEN Ordering Facility: [facility] Address: [address] [place] [address] Performed By: #### 3 4528-0, 10193-2 #### [facility] CLIA [id number] [address] [place] [address] [place] Specific gravity (U) [Rel density] <1.005 Low 1.005-1.030 [facility] Comment on above: Order Comment: Speci men Type: BLOOD SPECIMEN Ordering Facility: [facility] Address: [address] [place] [address] Performed By: #### 3 4528-0, 05866-8 #### [facility] CLIA [id number] [address] [place] [address] Urobilinogen Ql (U) Negative Normal Negative [facility] Comment on above: Order Comment: Speci men Type: BLOOD SPECIMEN Ordering Facility: [facility] Address: [address] [place] [address] Performed By: #### 3 4528-0, 29828-6 #### [facility] CLIA [id number] [address] [place] [address] [place] WBC LM.HPF (Urine sed) [#/Area] 0-5 /HPF Normal 0-5 /HPF [facility] Comment on above: Order Comment: Speci men Type: BLOOD SPECIMEN Ordering Facility: [facility] Address: [address] [place] [address] Performed By: #### 3 4528-0, 74202-6 #### [facility] CLIA [id number] [address] [place] [address] CBC W Auto Differential pane l (Bld)on 06-10-2023 Basophils (Bld) [#/Vol] 10*3/uL Normal <0.11 [facility] Comment on above: Order Comment: Speci men Type: BLOOD SPECIMEN Ordering Facility: [facility] Address: [address] [place] [address] Performed By: #### 5 7021-8, 4537-7 #### [facility] CLIA [id number] [address] [place] [address] [place] Basophils/100 WBC (Bld) 0.3 % Normal [facility] Comment on above: Order Comment: Speci men Type: BLOOD SPECIMEN Ordering Facility: [facility] Address: [address] [place] [address] Performed By: #### 5 7021-8, 4537-7 #### [facility] CLIA [id number] [address] [place] [address] [place] Differential cell count method Nom (Bld) Auto Normal [facility] Comment on above: Order Comment: Speci men Type: BLOOD SPECIMEN Ordering Facility: [facility] Address: [address] [place] [address] Performed By: #### 5 7021-8, 4537-7 #### [facility] CLIA [id number] [address] [place] [address] [place] Eosinophils (Bld) [#/Vol] 0.19 10*3/uL Normal <0.46 [facility] Comment on above: Order Comment: Speci men Type: BLOOD SPECIMEN Ordering Facility: [facility] Address: [address] [place] [address] Performed By: #### 5 7021-8, 4536-7 #### [facility] CLIA [id number] [address] [place] [address] [place] Eosinophils/100 WBC (Bld) 2.6 % Normal [facility] Comment on above: Order Comment: Speci men Type: BLOOD SPECIMEN Ordering Facility: [facility] Address: [address] [place] [address] Performed By: #### 5 7021-8, 4536-7 #### [facility] CLIA [id number] [address] [place] [address] [place] Erythrocyte distribution width (RBC) [Ratio] 13.1 % Normal 11.5-15.0 [facility] Comment on above: Order Comment: Speci men Type: BLOOD SPECIMEN Ordering Facility: [facility] Address: [address] [place] [address] Performed By: #### 5 7021-8, 7-7 #### [facility] CLIA [id number] [address] [place] [address] [place] Hematocrit (Bld) [Volume fraction] 46.2 % High 36.0-46.0 [facility] Comment on above: Order Comment: Speci men Type: BLOOD SPECIMEN Ordering Facility: [facility] Address: [address] [place] [address] Performed By: #### 5 7021-8, 4536-7 #### [facility] CLIA [id number] [address] [place] [address] [place] Hemoglobin (Bld) [Mass/Vol] 15.5 g/dL Normal 11.5-15.5 [facility] Comment on above: Order Comment: Speci men Type: BLOOD SPECIMEN Ordering Facility: [facility] Address: [address] [place] [address] Performed By: #### 5 7021-8, 4536-7 #### [facility] CLIA [id number] [address] [place] [address] [place] Immature granulocytes (Bld) [#/Vol] 10*3/uL Normal <0.10 [facility] Comment on above: Order Comment: Speci men Type: BLOOD SPECIMEN Ordering Facility: [facility] Address: [address] [place] [address] Performed By: #### 5 7021-8, 7 #### [facility] CLIA [id number] [address] [place] [address] [place] Immature granulocytes/100 WBC (Bld) 0.3 % Normal [facility] Comment on above: Order Comment: Speci men Type: BLOOD SPECIMEN Ordering Facility: [facility] Address: [address] [place] [address] Performed By: #### 5 7021-8, 4536-7 #### [facility] CLIA [id number] [address] [place] [address] [place] Lymphocytes (Bld) [#/Vol] 1.42 10*3/uL Normal 1.00-4.00 [facility] Comment on above: Order Comment: Speci men Type: BLOOD SPECIMEN Ordering Facility: [facility] Address: [address] [place] [address] Performed By: #### 5 7021-8, 7-7 #### [facility] CLIA [id number] [address] [place] [address] [place] Lymphocytes/100 WBC (Bld) 19.2 % Normal [facility] Comment on above: Order Comment: Speci men Type: BLOOD SPECIMEN Ordering Facility: [facility] Address: [address] [place] [address] Performed By: #### 5 7021-8, 4537-7 #### [facility] CLIA [id number] [address] [place] [address] [place] MCH (RBC) [Entitic mass] 33.3 pg Normal 26.0-34.0 [facility] Comment on above: Order Comment: Speci men Type: BLOOD SPECIMEN Ordering Facility: [facility] Address: [address] [place] [address] Performed By: #### 5 7021-8, 4537-7 #### [facility] CLIA [id number] [address] [place] [address] [place] MCHC (RBC) [Mass/Vol] 33.5 g/dL Normal 30.5-36.0 [facility] Comment on above: Order Comment: Speci men Type: BLOOD SPECIMEN Ordering Facility: [facility] Address: [address] [place] [address] Performed By: #### 5 7021-8, 4537-7 #### [facility] CLIA [id number] [address] [place] [address] [place] MCV (RBC) [Entitic vol] 99.4 fL Normal 80.0-100.[address] [facility] Comment on above: Order Comment: Speci men Type: BLOOD SPECIMEN Ordering Facility: [facility] Address: [address] [place] [address] Performed By: #### 5 7021-8, 4537-7 #### [facility] CLIA [id number] [address] [place] [address] [place] Monocytes (Bld) [#/Vol] 0.59 10*3/uL Normal <0.87 [facility] Comment on above: Order Comment: Speci men Type: BLOOD SPECIMEN Ordering Facility: [facility] Address: [address] [place] [address] Performed By: #### 5 7021-8, 7-7 #### [facility] CLIA [id number] [address] [place] [address] [place] Monocytes/100 WBC (Bld) 8.0 % Normal [facility] Comment on above: Order Comment: Speci men Type: BLOOD SPECIMEN Ordering Facility: [facility] Address: [address] [place] [address] Performed By: #### 5 7021-8, 4536-7 #### [facility] CLIA [id number] [address] [place] [address] [place] Neutrophils (Bld) [#/Vol] 5.15 10*3/uL Normal 1.45-7.50 [facility] Comment on above: Order Comment: Speci men Type: BLOOD SPECIMEN Ordering Facility: [facility] Address: [address] [place] [address] Performed By: #### 5 7021-8, 7 #### [facility] CLIA [id number] [address] [place] [address] [place] Neutrophils/100 WBC (Bld) 69.6 % Normal [facility] Comment on above: Order Comment: Speci men Type: BLOOD SPECIMEN Ordering Facility: [facility] Address: [address] [place] [address] Performed By: #### 5 7021-8, 4536-7 #### [facility] CLIA [id number] [address] [place] [address] [place] Nucleated RBC (Bld) [#/Vol] 10*3/uL Normal <0.01 [facility] Comment on above: Order Comment: Speci men Type: BLOOD SPECIMEN Ordering Facility: [facility] Address: [address] [place] [address] Performed By: #### 5 7021-8, 4537-7 #### [facility] CLIA [id number] [address] [place] [address] [place] Nucleated RBC/100 WBC (Bld) [Ratio] 0.0 /100 WBC Normal [facility] Comment on above: Order Comment: Speci men Type: BLOOD SPECIMEN Ordering Facility: [facility] Address: [address] [place] [address] Performed By: #### 5 7021-8, 4537-7 #### [facility] CLIA [id number] [address] [place] [address] [place] Platelet mean volume (Bld) [Entitic vol] 10.8 fL Normal 9.0-12.7 [facility] Comment on above: Order Comment: Speci men Type: BLOOD SPECIMEN Ordering Facility: [facility] Address: [address] [place] [address] Performed By: #### 5 7021-8, 4537-7 #### [facility] CLIA [id number] [address] [place] [address] [place] Platelets (Bld) [#/Vol] 278 10*3/uL Normal 150-400 [facility] Comment on above: Order Comment: Speci men Type: BLOOD SPECIMEN Ordering Facility: [facility] Address: [address] [place] [address] Performed By: #### 5 7021-8, 4537-7 #### [facility] CLIA [id number] [address] [place] [address] [place] RBC (Bld) [#/Vol] 4.65 10*6/uL Normal 3.90-5.20 [facility] Comment on above: Order Comment: Speci men Type: BLOOD SPECIMEN Ordering Facility: [facility] Address: [address] [place] [address] Performed By: #### 5 7021-8, 4537-7 #### [facility] CLIA [id number] [address] [place] [address] [place] WBC (Bld) [#/Vol] 7.39 10*3/uL Normal 3.70-11.00 [facility] Comment on above: Order Comment: Speci men Type: BLOOD SPECIMEN Ordering Facility: [facility] Address: [address] [place], [place] [address] [address] Performed By: #### 5 7021-8, 4537-7 #### [facility] CLIA [id number] [address] [place] [address] [address] [facility] CNDSon 06-10-2023 CNDS HNO ID: [id number] Author: LUKAS YOO MD Service: Hospital Medicine Author Type: Physician Type: Discharge Summary Filed: 06/10/2023 10:44 Note Text: DISCHARGE SUMMARY PATIENT NAME: Dhaval Moon ADMISSION DATE: 06/08/2023 DISCHARGE DATE: 06/10/2023 ATTENDING PHYSICIAN: Lukas Yoo MD Code Status: Full Code Highest Readmission Risk Score: 19 The 30 day readmissions risk score is derived from an internally validated risk model which evaluates patient level characteristics, utilization history, medication orders and lab results up until the day of discharge. Patients with a score of 40 or above are considered highest risk for readmission. Specific patient level drivers will be listed at the bottom of the summary. CONSULTING TEAMS DURING HOSPITALIZATION: Psychology Treatment Team: Attending Provider: Lukas Yoo MD Consulting: Albert Sierra, PhD Attending: MR BERNARDA HARDING Consulting: Delilah Rai MD REASON FOR HOSPITALIZATION: Alcohol use disorder DIAGNOSIS: Alcohol withdrawal HOSPITAL COURSE: 22 years old with past medical history of alcohol use disorder, alcohol induced neuropathy hypertension, liver disease, extensive psychiatric history borderline personality and bipolar who presented to the ER on 06/07 complaining of hyperventilation with heaviness in the chest spasm in hands and feet likely from alcohol use disorder. 06/08, patient was having tachycardia with elevated blood pressure and was hallucinating intermittently she was started on IV phenobarbital with doses increased as well as folic acid and thiamine was psychology consulted and patient at the time of psychology evaluation was doing fine with no hallucinations. Patient improved gradually with her heart rate trended down and the blood pressure improved after starting her on blood pressure medications. 06/09, CIWA protocol less than 4 heart rate improved blood pressure is stable. BP 137/95 Pulse 96 Temp 36.4 ?C (97.6 ?F) (Oral) Resp 18 Ht 154.9 cm (5' 1 ) Wt 119.1 kg (262 lb 8 oz) LMP 04/09/2023 SpO2 97% BMI 49.60 kg/m? . Patient wants to be discharged today as she has an appointment with a new job and she feels comfortable and she feels she is able to take care of herself and she has enough psychiatric medication at home and she is not interested in alcohol anymore and she understands the risk of continued drinking alcohol. At the time of my interview patient was doing fine no more hallucinations stable vital signs no suicidal ideation she has a full capacity and able to make her decisions and she wants to go home. She will be discharged home she advised to follow-up with closely with her primary care to review her medications. Malnutrition Diagnosis supported by Registered Dietitian:Mild Protein-Calorie Malnutrition Based on: Unintentional Weight Loss Assessment: I have reviewed the result of the malnutrition assessment and plan and agree Plan: Diet, Supplements PATIENT CONDITION AT DISCHARGE: Stable DISCHARGE DISPOSITION: Home with Self Care General: Patient is alert and oriented x3 and is in no acute respiratory distress HEENT: Normal cephalic, atraumatic, PERRLA, TM's normal, Nose clear, Mouth normal Neck: Negative hepatojugular reflux or jugular venous distention, negative carotid bruit. Lungs: Clear to auscultation, no wheezing, rales, or rhonchi. Cardiac: tachy Regular rhythm and rate, S1-S2 within normal limits, no murmurs, gallops were appreciated, no rubs. Abdomen: Soft, nontender, nondistended, no HSM detected, bowel sounds are active. Extremities: [No edema, cyanosis, or clubbing. Skin: No rashes or breakdown. Musculoskeletal: normal MS exam, moves all extremities, DTR's normal Lymphatic: Negative cervical, supra-clavicular, groin lymphadenopathy. Neurologic: Cranial nerves from II-XII intact grossly, no focal deficits. Psychiatry: Normal affect. INFORMATION PROVIDED TO PATIENT: Up with your primary care. Stop alcohol WOUND/SURGICAL SITE CARE: None DIET: Resume pre-hospital diet ACTIVITY: Resume pre-hospital activity ALLERGIES Allergen Reactions Penicillins DISCHARGE MEDICATION: Medication List START taking these medications folic acid 1 mg tablet Take 1 tablet by mouth once daily. losartan 50 mg tablet Commonly known as: COZAAR Take 1 tablet by mouth once daily. Start taking on: June 11, 2023 metoprolol tartrate (short acting) 25 mg tablet Commonly known as: LOPRESSOR Take 1 tablet by mouth every 12 hours. thiamine 100 mg tablet Commonly known as: VITAMIN B1 1 tablet by ORAL/FEEDING TUBE route three times a day. Patient should start on June 12, 2023. Start taking on: June 12, 2023 CONTINUE taking these medications Potassium Bicarb-Citric Acid 25 mEq disintegrating tablet Commonly known as: EFFER-K Take 1 tablet by mouth two times a day for 3 days. * PROAIR RESPICLICK 90 mcg/actuat (more content not included)... Normal [facility] Comprehensive metabolic 2000 panelon 06-10-2023 Albumin [Mass/Vol] 3.4 g/dL Normal 3.2-5.0 [facility] Comment on above: Order Comment: Janes merlos Type: BLOOD SPECIMEN Ordering Facility: [facility] Address: [address] [place] [address] Performed By: #### 5 7021-8, 4537-7 #### [facility] CLIA [id number] [address] [place] [address] [place] ALP [Catalytic activity/Vol] 87 U/L Normal 45-117 [facility] Comment on above: Order Comment: Janes merlos Type: BLOOD SPECIMEN Ordering Facility: [facility] Address: [address] [place] [address] Performed By: #### 5 7021-8, 4537-7 #### [facility] CLIA [id number] [address] [place] [address] [place] ALT [Catalytic activity/Vol] 24 U/L Normal 13-61 [facility] Comment on above: Order Comment: Janes merlos Type: BLOOD SPECIMEN Ordering Facility: [facility] Address: [address] [place] [address] Result Comment: Resu lts may be falsely depressed after the administration of Sulfasalazine and/or Sulfapyridine. Performed By: #### 5 7021-8, 4537-7 #### [facility] CLIA [id number] [address] [place] [address] [place] Anion gap [Moles/Vol] 4 mmol/L Low 5-16 [facility] Comment on above: Order Comment: Speci men Type: BLOOD SPECIMEN Ordering Facility: [facility] Address: [address] [place] [address] Performed By: #### 5 7021-8, 4537-7 #### [facility] CLIA [id number] [address] [place] [address] [place] AST [Catalytic activity/Vol] 31 U/L Normal 8-34 [facility] Comment on above: Order Comment: Speci men Type: BLOOD SPECIMEN Ordering Facility: [facility] Address: [address] [place] [address] Result Comment: Resu lts may be falsely depressed after the administration of Sulfasalazine and/or Sulfapyridine. Performed By: #### 5 7021-8, 4537-7 #### [facility] CLIA [id number] [address] [place] [address] [place] Bilirubin [Mass/Vol] 1.6 mg/dL High 0.2-1.0 [facility] Comment on above: Order Comment: Speci men Type: BLOOD SPECIMEN Ordering Facility: [facility] Address: [address] [place] [address] Performed By: #### 5 7021-8, 4537-7 #### [facility] CLIA [id number] [address] [place] [address] [place] Calcium [Mass/Vol] 9.9 mg/dL Normal 8.5-10.5 [facility] Comment on above: Order Comment: Speci men Type: BLOOD SPECIMEN Ordering Facility: [facility] Address: [address] [place] [address] Performed By: #### 5 7021-8, 4537-7 #### [facility] CLIA [id number] [address] [place] [address] [place] Chloride [Moles/Vol] 107 mmol/L Normal 98-107 [facility] Comment on above: Order Comment: Speci men Type: BLOOD SPECIMEN Ordering Facility: [facility] Address: [address] [place] [address] Performed By: #### 5 7021-8, 4537-7 #### [facility] CLIA [id number] [address] [place] [address] [place] CO2 [Moles/Vol] 29 mmol/L Normal 21-32 [facility] Comment on above: Order Comment: Speci men Type: BLOOD SPECIMEN Ordering Facility: [facility] Address: [address] [place] [address] Performed By: #### 5 7021-8, 4537-7 #### [facility] CLIA [id number] [address] [place] [address] [place] Creatinine [Mass/Vol] 0.42 mg/dL Low 0.51-0.95 [facility] Comment on above: Order Comment: Speci men Type: BLOOD SPECIMEN Ordering Facility: [facility] Address: [address] [place] [address] Result Comment: Jannie ents receiving either N-Acetylcysteine (NAC) or Metamizole prior to venipuncture, may have falsely depressed results. Performed By: #### 5 7021-8, 4537-7 #### [facility] CLIA [id number] [address] [place] [address] Creatinine and Glomerular filtration rate.predicted panel (S/P/Bld) 141 mL/min/1.73m??? Normal >=60 [facility] Comment on above: Order Comment: Janes merlos Type: BLOOD SPECIMEN Ordering Facility: [facility] Address: [address] [place] [address] Result Comment: Mulu mated Glomerular Filtration Rate (eGFR) is calculated using the 2020 CKD-EPI creatinine equation. This equation utilizes serum creatinine, sex, and age as parameters. The creatinine assay has traceable calibration to isotope dilution-mass spectrometry. Refer to KDIGO guidelines for clinical interpretation. In patients with unstable renal function, e.g. those with acute kidney injury, the eGFR may not accurately reflect actual GFR. Performed By: #### 5 7021-8, 4537-7 #### [facility] CLIA [id number] [address] [place] [address] [place] Glucose [Mass/Vol] 97 mg/dL Normal 70-100 [facility] Comment on above: Order Comment: Janes merlos Type: BLOOD SPECIMEN Ordering Facility: [facility] Address: [address] [place], [place] [id number] Result Comment: The [place] [employer] (ADA) provides guidance for cutoff values for fasting glucose and random glucose. The ADA defines fasting as no caloric intake for at least 8 hours. Fasting plasma glucose results between 100 to 125 mg/dL indicate increased risk for diabetes (prediabetes). Fasting plasma glucose results greater than or equal to 126 mg/dL meet the criteria for diagnosis of diabetes. In the absence of unequivocal hyperglycemia, results should be confirmed by repeat testing. In a patient with classic symptoms of hyperglycemia or hyperglycemic crisis, random plasma glucose results greater than or equal to 200 mg/dL meet the criteria for diagnosis of diabetes. Reference: Standards of Medical Care in Diabetes 2016, [place] [employer]. Diabetes Care. 2016.39(Suppl 1). Results may be falsely elevated after the administration of Sulfapyridine. Results may be falsely depressed after the administration of Sulfasalazine. Performed By: #### 5 7021-8, 4537-7 #### [facility] CLIA [id number] [address] [place] [address] [place] Potassium [Moles/Vol] 3.7 mmol/L Normal 3.5-5.1 [facility] Comment on above: Order Comment: Janes merlos Type: BLOOD SPECIMEN [facility] [facility] Address: [address] [place], [place] [id number] Performed By: #### 5 7021-8, 4537-7 #### [facility] CLIA [id number] [address] [place] [address] [place] Protein [Mass/Vol] 7.4 g/dL Normal 6.0-8.5 [facility] Comment on above: Order Comment: Janes merlos Type: BLOOD SPECIMEN Ordering Facility: [facility] Address: [address] [place], [place] [id number] Performed By: #### 5 7021-8, 4537-7 #### [facility] CLIA [id number] [address] [place] [address] [place] Sodium [Moles/Vol] 140 mmol/L Normal 136-145 [facility] Comment on above: Order Comment: Speci men Type: BLOOD SPECIMEN Ordering Facility: [facility] Address: [address] [place] [address] Performed By: #### 5 7021-8, 4537-7 #### [facility] CLIA [id number] [address] [place] [address] [place] Urea nitrogen [Mass/Vol] mg/dL Low 7- [facility] Comment on above: Order Comment: Speci men Type: BLOOD SPECIMEN Ordering Facility: [facility] Address: [address] [place] [address] Performed By: #### 5 7021-8, 4537-7 #### [facility] CLIA [id number] [address] [place] [address] [place] Magnesium SerPl-mCncon 06-09 Magnesium [Mass/Vol] 1.9 mg/dL Normal 1.6-2.6 [facility] Comment on above: Order Comment: Speci men Type: BLOOD SPECIMEN Ordering Facility: [facility] Address: [address] [place] [address] Performed By: #### 5 7021-8, 4537-7 #### [facility] CLIA [id number] [address] [place] [address] [place] Phosphate SerPl-mCncon 06-09 Phosphate [Mass/Vol] 4.5 mg/dL Normal 2.5-4.9 [facility] Comment on above: Order Comment: Speci men Type: BLOOD SPECIMEN Ordering Facility: [facility] Address: [address] [place] [address] Result Comment: Elev ated m-protein (paraprotein) levels in the serum may be exhibited in patients with monoclonal gammopathies, causing falsely elevated inorganic phosphorus results. Performed By: #### 5 7021-8, 4537-7 #### [facility] CLIA [id number] [address] [place] [address] [place] CBC panel Auto (Bld)on 06-08 Erythrocyte distribution width (RBC) [Ratio] 13.2 % Normal 11.5-15.0 [facility] Comment on above: Order Comment: Speci men Type: BLOOD SPECIMEN Ordering Facility: [facility] Address: [address] [place] [address] Performed By: #### 5 7021-8, 4537-7 #### [facility] CLIA [id number] [address] [place] [address] Hematocrit (Bld) [Volume fraction] 49.3 % High 36.0-46.0 [facility] Comment on above: Order Comment: Speci men Type: BLOOD SPECIMEN Ordering Facility: [facility] Address: [address] [place] [address] Performed By: #### 5 7021-8, 4537-7 #### [facility] CLIA [id number] [address] [place] [address] Hemoglobin (Bld) [Mass/Vol] 16.4 g/dL High 11.5-15.5 [facility] Comment on above: Order Comment: Speci men Type: BLOOD SPECIMEN Ordering Facility: [facility] Address: [address] [place] [address] Performed By: #### 5 7021-8, 4537-7 #### [facility] CLIA [id number] [address] [place] [address] [place] MCH (RBC) [Entitic mass] 33.1 pg Normal 26.0-34.0 [facility] Comment on above: Order Comment: Speci men Type: BLOOD SPECIMEN Ordering Facility: [facility] Address: [address] [place] [address] Performed By: #### 5 7021-8, 4537-7 #### [facility] CLIA [id number] [address] [place] [address] [place] MCHC (RBC) [Mass/Vol] 33.3 g/dL Normal 30.5-36.0 [facility] Comment on above: Order Comment: Speci men Type: BLOOD SPECIMEN Ordering Facility: [facility] Address: [address] [place] [address] Performed By: #### 5 7021-8, 4537-7 #### [facility] CLIA [id number] [address] [place] [address] [place] MCV (RBC) [Entitic vol] 99.4 fL Normal 80.0-100.0 [facility] Comment on above: Order Comment: Speci men Type: BLOOD SPECIMEN Ordering Facility: [facility] Address: [address] [place] [address] Performed By: #### 5 7021-8, 4537-7 #### [facility] CLIA [id number] [address] [place] [address] [place] Nucleated RBC (Bld) [#/Vol] 10*3/uL Normal <0.01 [facility] Comment on above: Order Comment: Speci men Type: BLOOD SPECIMEN Ordering Facility: [facility] Address: [address] [place], [place] [address] Performed By: #### 5 7021-8, 4537-7 #### [facility] CLIA [id number] [address] [place], [place] [address] [place] Platelet mean volume (Bld) [Entitic vol] 10.5 fL Normal 9.0-12.7 [facility] Comment on above: Order Comment: Speci men Type: BLOOD SPECIMEN Ordering Facility: [facility] Address: [address] [place] [address] Performed By: #### 5 7021-8, 4537-7 #### [facility] CLIA [id number] [address] [place] [address] [place] Platelets (Bld) [#/Vol] 279 10*3/uL Normal 150-400 [facility] Comment on above: Order Comment: Speci men Type: BLOOD SPECIMEN Ordering Facility: [facility] Address: [address] [place] [address] Performed By: #### 5 7021-8, 4537-7 #### [facility] CLIA [id number] [address] [place], [place] [address] [facility] [place] RBC (Bld) [#/Vol] 4.96 10*6/uL Normal 3.90-5.20 [facility] Comment on above: Order Comment: Speci men Type: BLOOD SPECIMEN Ordering Facility: [facility] Address: [address] [place], [place] [address] Performed By: #### 5 7021-8, 4537-7 #### [facility] CLIA [id number] [address] [place] [address] WBC (Bld) [#/Vol] 8.02 10*3/uL Normal 3.70-11.00 [facility] Comment on above: Order Comment: Speci men Type: BLOOD SPECIMEN Ordering Facility: [facility] Address: [address] [place], [place] [address] Performed By: #### 5 7021-8, 4537-7 #### [facility] CLIA [id number] [address] [place] [address] [place] Comprehensive metabolic 2000 panelon 06-09-2023 Albumin [Mass/Vol] 3.3 g/dL Normal 3.2-5.0 [facility] Comment on above: Order Comment: Speci men Type: BLOOD SPECIMEN Ordering Facility: [facility] Address: [address] [place] [address] Performed By: #### 5 7021-8, 4537-7 #### [facility] CLIA [id number] [address] [place], [place] [address] [place] ALP [Catalytic activity/Vol] 94 U/L Normal 45-117 [facility] Comment on above: Order Comment: Speci men Type: BLOOD SPECIMEN Ordering Facility: [facility] Address: [address] [place] [address] Performed By: #### 5 7021-8, 4537-7 #### [facility] CLIA [id number] [address] [place] [address] [place] ALT [Catalytic activity/Vol] 32 U/L Normal 13-61 [facility] Comment on above: Order Comment: Janes merlos Type: BLOOD SPECIMEN Ordering Facility: [facility] Address: [address] [place] [address] Result Comment: Resu lts may be falsely depressed after the administration of Sulfasalazine and/or Sulfapyridine. Performed By: #### 5 7021-8, 4537-7 #### [facility] CLIA [id number] [address] [place] [address] [place] Anion gap [Moles/Vol] 8 mmol/L Normal 5-16 [facility] Comment on above: Order Comment: Janes merlos Type: BLOOD SPECIMEN Ordering Facility: [facility] Address: [address] [place] [address] Performed By: #### 5 7021-8, 4537-7 #### [facility] CLIA [id number] [address] [place] [address] [place] AST [Catalytic activity/Vol] 34 U/L Normal 8-34 [facility] Comment on above: Order Comment: Janes merlos Type: BLOOD SPECIMEN Ordering Facility: [facility] Address: [address] [place] [address] Result Comment: Resu lts may be falsely depressed after the administration of Sulfasalazine and/or Sulfapyridine. Performed By: #### 5 7021-8, 4537-7 #### [facility] CLIA [id number] [address] [place], [place] [address] [place] Bilirubin [Mass/Vol] 1.3 mg/dL High 0.2-1.0 [facility] Comment on above: Order Comment: Janes merlos Type: BLOOD SPECIMEN Ordering Facility: [facility] Address: [address] [place] [address] Performed By: #### 5 7021-8, 4537-7 #### [facility] CLIA [id number] [address] [place], [place] [address] [place] Calcium [Mass/Vol] 9.4 mg/dL Normal 8.5-10.5 [facility] Comment on above: Order Comment: Speci men Type: BLOOD SPECIMEN Ordering Facility: [facility] Address: [address] [place] [address] Performed By: #### 5 7021-8, 4537-7 #### [facility] CLIA [id number] [address] [place] [address] [place] Chloride [Moles/Vol] 110 mmol/L High 98-107 [facility] Comment on above: Order Comment: Speci men Type: BLOOD SPECIMEN Ordering Facility: [facility] Address: [address] [place] [address] Performed By: #### 5 7021-8, 453-7 #### [facility] CLIA [id number] [address] [place] [address] [place] CO2 [Moles/Vol] 27 mmol/L Normal 21-32 [facility] Comment on above: Order Comment: Speci men Type: BLOOD SPECIMEN Ordering Facility: [facility] Address: [address] [place] [address] Performed By: #### 5 7021-8, 4536-7 #### [facility] CLIA [id number] [address] [place] [address] [place] Creatinine [Mass/Vol] 0.51 mg/dL Normal 0.51-0.95 [facility] Comment on above: Order Comment: Speci men Type: BLOOD SPECIMEN Ordering Facility: [facility] Address: [address] [place] [address] Result Comment: Jannie ents receiving either N-Acetylcysteine (NAC) or Metamizole prior to venipuncture, may have falsely depressed results. Performed By: #### 5 7021-8, 4537-7 #### [facility] CLIA [id number] [address] [place] [address] [place] Creatinine and Glomerular filtration rate.predicted panel (S/P/Bld) 135 mL/min/1.73m??? Normal >=60 [facility] Comment on above: Order Comment: Janes merlos Type: BLOOD SPECIMEN Ordering Facility: [facility] Address: [address] [place] [address] Result Comment: Mulu mated Glomerular Filtration Rate (eGFR) is calculated using the 2020 CKD-EPI creatinine equation. This equation utilizes serum creatinine, sex, and age as parameters. The creatinine assay has traceable calibration to isotope dilution-mass spectrometry. Refer to KDIGO guidelines for clinical interpretation. In patients with unstable renal function, e.g. those with acute kidney injury, the eGFR may not accurately reflect actual GFR. Performed By: #### 5 7021-8, 4537-7 #### [facility] CLIA [id number] [address] [place] [address] [place] Glucose [Mass/Vol] 95 mg/dL Normal 70-100 [facility] Comment on above: Order Comment: Janes merlos Type: BLOOD SPECIMEN Ordering Facility: [facility] Address: [address] [place] [address] Result Comment: The [place] [employer] (ADA) provides guidance for cutoff values for fasting glucose and random glucose. The ADA defines fasting as no caloric intake for at least 8 hours. Fasting plasma glucose results between 100 to 125 mg/dL indicate increased risk for diabetes (prediabetes). Fasting plasma glucose results greater than or equal to 126 mg/dL meet the criteria for diagnosis of diabetes. In the absence of unequivocal hyperglycemia, results should be confirmed by repeat testing. In a patient with classic symptoms of hyperglycemia or hyperglycemic crisis, random plasma glucose results greater than or equal to 200 mg/dL meet the criteria for diagnosis of diabetes. Reference: Standards of Medical Care in Diabetes 2016, [place] [employer]. Diabetes Care. 2016.39(Suppl 1). Results may be falsely elevated after the administration of Sulfapyridine. Results may be falsely depressed after the administration of Sulfasalazine. Performed By: #### 5 7021-8, 4537-7 #### [facility] CLIA [id number] [address] [place] [address] [place] Potassium [Moles/Vol] 3.6 mmol/L Normal 3.5-5.1 [facility] Comment on above: Order Comment: Speci men Type: BLOOD SPECIMEN Ordering Facility: [facility] Address: [address] [place] [id number] Performed By: #### 5 7021-8, 4537-7 #### [facility] CLIA [id number] [address] [place] [address] [place] Protein [Mass/Vol] 7.3 g/dL Normal 6.0-8.5 [facility] Comment on above: Order Comment: Speci men Type: BLOOD SPECIMEN Ordering Facility: [facility] Address: [address] [place] [id number] Performed By: #### 5 7021-8, 4537-7 #### [facility] CLIA [id number] [address] [place] [address] [place] Sodium [Moles/Vol] 145 mmol/L Normal 136-145 [facility] Comment on above: Order Comment: Speci men Type: BLOOD SPECIMEN Ordering Facility: [facility] Address: [address] [place] [address] Performed By: #### 5 7021-8, 4537-7 #### [facility] CLIA [id number] [address] [place] [address] [place] Urea nitrogen [Mass/Vol] 5 mg/dL Low 09-07 [facility] Comment on above: Order Comment: Speci men Type: BLOOD SPECIMEN Ordering Facility: [facility] Address: [address] [place] [address] Performed By: #### 5 7021-8, 4537-7 #### [facility] CLIA [id number] [address] [place] [address] [place] ECG COMPLETEon 06-09-2023 ECG COMPLETE Ventricular Rate : 125 BPM Atrial Rate : 125 BPM P-R Interval : 156 ms QRS Duration : 86 ms Q-T Interval : 326 ms QTC Calculation(Bazett) : 470 ms Calculated P Elk : 44 degrees Calculated R Elk : 26 degrees Calculated T Elk : 10 degrees Sinus tachycardia Nonspecific T wave abnormality Inferior and Septal leads Otherwise normal ECG When compared with ECG of 08-Jun-2023 17:54, No significant change was found Confirmed by KEYANA LENNON MD ([id number]) on 06/11/2023 7:04:02 PM NAME : DHAVAL MOON PID : [id number] : 2000 Gender : Female Race : Other ORD : [id number] Procedure Date : Jun 09 2023 06:29:25 Edit Date : Jun 11 2023 19:04:03 Diagnosis: Sinus tachycardia Nonspecific T wave abnormality Inferior and Septal leads Otherwise normal ECG When compared with ECG of 08-Jun-2023 17:54, No significant change was found Confirmed by KEYANA LENNON MD ([id number]) on 06/11/2023 7:04:02 PM Test Reason : RT Location : 19 : [address] [place] [address] Overread By : KEYANA LENNON MD Edited By : KEYANA LENNON MD Referred By : , Acquired by : JAMES HOLMAN [facility] HIGH SENSITIVITY TROPONIN Io n 06-09-2023 Tropinin I.cardiac panel High sensitivity method 3.0 pg/mL Normal 0.0-34.0 [facility] Comment on above: Order Comment: Specshane merlos Type: BLOOD SPECIMEN Ordering Facility: [facility] Address: [address] [place] [address] Result Comment: This assay uses different antibodies than our current assay, and assays, even by the same manager food beverage may recognize different regions of the antibody and cannot be used interchangeably. Expect results of this assay to run higher than the previous assay. Performed By: #### 5 7021-8, 4537-7 #### [facility] CLIA [id number] [address] [place] [address] [place] [facility] Tropinin I.cardiac panel High sensitivity method <2.5 Normal 0.0-34.0 [facility] Comment on above: Order Comment: Speci chelita Type: BLOOD SPECIMEN Ordering Facility: [facility] Address: [address] [place] [address] Result Comment: This assay uses different antibodies than our current assay, and assays, even by the same manager food beverage may recognize different regions of the antibody and cannot be used interchangeably. Expect results of this assay to run higher than the previous assay. Performed By: #### 5 7021-8, 4537-7 #### [facility] CLIA [id number] [address] [place], [place] [id number] [facility] MEDICAL EMERon 06-09-2023 MEDICAL CHRIS HNO ID: [id number] Author: SUKH CLINTON APRN.BAM Service: Hospital Medicine Author Type: Nurse Practitioner Type: Chg in Clinical Condition Filed: 06/09/2023 01:32 Note Text: Patient had reported to the nursing staff that she wishes that she was . She continues to have visual hallucinations and currently attempting to leave AMA. Capacity hold placed due to delirium and depression. Consult placed to psychiatry. [facility] Magnesium SerPl-mCncon 06-08 Magnesium [Mass/Vol] 2.2 mg/dL Normal 1.6-2.6 [facility] Comment on above: Order Comment: Speci men Type: BLOOD SPECIMEN Ordering Facility: [facility] Address: [address] [place] [address] Performed By: #### 5 7021-8, 4537-7 #### [facility] IA [id number] [address] [place], [place] [id number] [facility] NURSING PROGon 06-09-2023 NURSING PROG HNO ID: [id number] Author: ELIZABETH PRESCOTT RN Service: Nursing Author Type: Registered Nurse Type: Nursing Progress Note Filed: 06/09/2023 18:04 Note Text: Patient continues to experience auditory and visual hallucinations. Pt stated that there is a man behind her hospital curtain and in her patient bathroom. This nurse showed the patient that there was not anyone in there. Patient redirected. This nurse and patient metal machinist offered patient to turn on her TV or listen to music. Patient refused. Patient continues to listen for noises in the hallway and state that people are talking about her and that there is a Mr. Walters that is coming to see her from the hallway. Patient redirected. [facility] NUTRITIONon 06-09-2023 NUTRITION HNO ID: [id number] Author: YVETTE CHAWLA RD Service: ? Author Type: Registered Dietitian Type: Nutrition Filed: 06/09/2023 12:35 Note Text: NUTRITION THERAPY INITIAL ASSESSMENT SERVICE DATE: 06/09/2023 SERVICE TIME: 11:00AM Nutrition Assessment: Recommended Malnutrition Diagnosis: Mild Protein-Calorie Malnutrition In the context of: Social/Environmenta l Circumstance Based on: Unintentional Weight Loss Nutrition Diagnosis: Problem: Unintended weight loss Related to: Lack of ability to participate in self care (reports increased stress in life leading to decrease PO, alcohol abuse) As evidenced by: Medical condition, Patient/family self-report, Food/nutrition related history Estimated kilocalorie needs: 6263-1110 Calorie Calculation Method: Clarke-St. Jeor (with activity factor) (1.1-1.3) Estimated protein needs (grams): 120-140 Grams protein determined by: Nada body weight (2.5-3.0) Care Plan: Continue current diet Supplements: Ensure Plus High Protein (TID) Monitor and Evaluation: Meet greater than 75% of estimated needs, Monitor fluid/electrolyte balance, Monitor labs, I/Os, vital signs, weight, Monitor bowel function Discharge Recommendations: Diet Diet: Aim for 3 adequate meals a day HPI: Patient admitted for alcohol withdrawal. PMH: liver disease, HTN Intake History: Nutrition Intake Prior to Admission: Less than 50% estimated energy needs (reports eating 1 meal a day, drinking kcals instead) greater than or equal to 1 month Current Nutrition Intake: Less than 50% estimated energy needs (per pt recall) Current Intake Over time: (x1 day LOS) Diet Orders (From admission, onward) Start Ordered 06/08/232129 DIET REGULAR START NOW 06/08/232122 Anthropometrics: Height: 154.9 cm (5' 1 ) Weight: 118.9 kg (262 lb 1.6 oz) Dosing Weight: 118.9 kg (262 lb 2 oz) (CBW) Usual Weight: 135.6 kg (299 lb) 04/11/2023 Usual Weight Obtained From: Chart Review Body mass index is 49.52 kg/m?. Weight change percentage over time: 12.3% wt loss x 2mo Weight Change: Clinically signficant weight loss Physical Exam: Subcutaneous fat loss: No fat loss Muscle loss: No muscle loss Potential micronutrient deficiency: No deficiency identified Edema/Ascites: Generalized (nonpitting) GI Symptoms: None Functional Status: No Change Potential Signs of Inflammation: Chronic condition, Tachycardia alcohol abuse, liver disease, HTN MNT Billing: $ Initial Assessment: minutes SIGNATURE: Yvette Chawla RD PATIENT NAME: Dhaval Moon DATE: June 09, 2023 TIME: 11:00 AM Normal [facility] TOXICOLOGY SCREEN, ROUTINE U RINEon 06-09-2023 Amphetamines Confirm (U) [Mass/Vol] Positive Abnormal Negative [facility] Comment on above: Order Comment: Speci men Type: BLOOD SPECIMEN Ordering Facility: [facility] Address: [address] [place] [address] Result Comment: Cuto ff threshold at 1000 ng/mL. Performed By: #### 5 7021-8, 4537-7 #### [facility] CLIA [id number] [address] [place] [address] [place] BARBITURATES, URINE Positive Abnormal Negative [facility] Comment on above: Order Comment: Speci men Type: BLOOD SPECIMEN Ordering Facility: [facility] Address: [address] [place] [address] Result Comment: Cuto ff threshold at 200 ng/mL. Performed By: #### 5 7021-8, 4537-7 #### [facility] CLIA [id number] [address] [place] [address] [place] BENZODIAZEPINES, UR Negative Normal Negative [facility] Comment on above: Order Comment: Speci men Type: BLOOD SPECIMEN Ordering Facility: [facility] Address: [address] [place] [address] Result Comment: Cuto ff threshold at 200 ng/mL. Performed By: #### 5 7021-8, 4537-7 #### [facility] CLIA [id number] [address] [place] [address] [place] Cannabinoids Screen Ql (U) Negative Normal Negative [facility] Comment on above: Order Comment: Speci men Type: BLOOD SPECIMEN Ordering Facility: [facility] Address: [address] [place] [address] Result Comment: Cuto ff threshold at 50 ng/mL. Performed By: #### 5 7021-8, 4537-7 #### [facility] CLIA [id number] [address] [place] [address] [place] Cocaine Ql (U) Positive Abnormal Negative [facility] Comment on above: Order Comment: Speci men Type: BLOOD SPECIMEN Ordering Facility: [facility] Address: [address] [place] [address] Result Comment: Cuto ff threshold at 300 ng/mL. Performed By: #### 5 7021-8, 4537-7 #### [facility] CLIA [id number] [address] [place] [address] STATES OF [facility] Opiates Screen Ql (U) Negative Normal Negative [facility] Comment on above: Order Comment: Speci men Type: BLOOD SPECIMEN Ordering Facility: [facility] Address: [address] [place] [address] Result Comment: Cuto ff threshold at 300 ng/mL. Performed By: #### 5 7021-8, 4537-7 #### [facility] CLIA [id number] [address] [place] [address] [place] Phencyclidine Ql (U) Negative Normal Negative [facility] Comment on above: Order Comment: Speci men Type: BLOOD SPECIMEN Ordering Facility: [facility] Address: [address] [place] [address] Result Comment: Cuto ff threshold at 25 ng/mL. Performed By: #### 5 7021-8, 4537-7 #### [facility] CLIA [id number] [address] [place] [address] [place] Basic metabolic 2000 panelon 06-08-2023 Anion gap [Moles/Vol] 10 mmol/L Normal 5-16 [facility] Comment on above: Order Comment: Speci men Type: BLOOD SPECIMENOrdering Facility: [facility] Address: [address] [place] [address] Performed By: #### H CG, 90660-9, 5643-2 ####[facility]ATORYCLIA [id number] [place] [address] [place] Calcium [Mass/Vol] 10.2 mg/dL Normal 8.5-10.5 [facility] Comment on above: Order Comment: Speci men Type: BLOOD SPECIMENOrdering Facility: [facility] Address: [address] [place] [address] Performed By: #### Rishi ESPINOZA, 27609-7, 5643-2 ####[facility]ATORYCLIA [id number] [place] [id number] [place] Chloride [Moles/Vol] 108 mmol/L High 98-107 [facility] Comment on above: Order Comment: Speci men Type: BLOOD SPECIMENOrdering Facility: [facility] Address: [address] [place] [address] Performed By: #### Rishi ESPINOZA, 58890-2, 5643-2 ####[facility]ORYCLIA [id number] [place] [address] [place] CO2 [Moles/Vol] 25 mmol/L Normal 21-32 [facility] Comment on above: Order Comment: Speci men Type: BLOOD SPECIMENOrdering Facility: [facility] Address: [address] [place] [address] Performed By: #### Rishi ESPINOZA, 57226-4, 5643-2 ####[facility]ORYCLIA [id number] [address] [place] Creatinine [Mass/Vol] 0.50 mg/dL Low 0.51-0.95 [facility] Comment on above: Order Comment: Speci men Type: BLOOD SPECIMENOrdering Facility: [facility] Address: [address] [place] [address] Result Comment: Jannie ents receiving either N-Acetylcysteine (NAC) or Metamizole prior to venipuncture, may have falsely depressed results. Performed By: #### Rishi ESPINOZA, 68207-8, 5643-2 ####[facility]ATORYCLIA [id number] [place] [address] [place] Creatinine and Glomerular filtration rate.predicted panel (S/P/Bld) 135 mL/min/1.73m??? Normal >=60 [facility] Comment on above: Order Comment: Speci men Type: BLOOD SPECIMENOrdering Facility: [facility] Address: [address] [place] [place] [id number] Result Comment: Mulu mated Glomerular Filtration Rate (eGFR) is calculated using the 2020 CKD-EPI creatinine equation. This equation utilizes serum creatinine, sex, and age as parameters. The creatinine assay has traceable calibration to isotope dilution-mass spectrometry. Refer to KDIGO guidelines for clinical interpretation. In patients with unstable renal function, e.g. those with acute kidney injury, the eGFR may not accurately reflect actual GFR. Performed By: #### H CG, 71644-5, 5643-2 ####[facility]ATORYCLIA [id number] [place] [id number] [place] Glucose [Mass/Vol] 101 mg/dL High 70-100 [facility] Comment on above: Order Comment: Janes merlos Type: BLOOD SPECIMENOrdering Facility: [facility] Address: [address] [place] [address] Result Comment: The [place] [employer] (ADA) provides guidance for cutoff values for fasting glucose and random glucose. The ADA defines fasting as no caloric intake for at least 8 hours. Fasting plasma glucose results between 100 to 125 mg/dL indicate increased risk for diabetes (prediabetes). Fasting plasma glucose results greater than or equal to 126 mg/dL meet the criteria for diagnosis of diabetes. In the absence of unequivocal hyperglycemia, results should be confirmed by repeat testing. In a patient with classic symptoms of hyperglycemia or hyperglycemic crisis, random plasma glucose results greater than or equal to 200 mg/dL meet the criteria for diagnosis of diabetes. Reference: Standards of Medical Care in Diabetes 2016, [place] [employer]. Diabetes Care. 2016.39(Suppl 1). Results may be falsely elevated after the administration of Sulfapyridine. Results may be falsely depressed after the administration of Sulfasalazine. Performed By: #### H CG, 23830-5, 5643-2 ####[facility]ORYCLIA [id number] [place] [id number] [place] Potassium [Moles/Vol] 3.2 mmol/L Low 3.5-5.1 [facility] Comment on above: Order Comment: Janes merlos Type: BLOOD SPECIMENOrdering Facility: [facility] Address: [address] [place] [address] Performed By: #### Rishi ALEXIS, 57811-5, 5643-2 ####[facility]ORYCLIA [id number] [place] [id number] [place] Sodium [Moles/Vol] 143 mmol/L Normal 136-145 [facility] Comment on above: Order Comment: Speci men Type: BLOOD SPECIMENOrdering Facility: [facility] Address: [address] [place] [address] Performed By: #### Rishi ALEXIS, 36188-0, 5643-2 ####[facility]ORYCLIA [id number] [place] [address] [place] Urea nitrogen [Mass/Vol] mg/dL Low - [facility] Comment on above: Order Comment: Speci men Type: BLOOD SPECIMENOrdering Facility: [facility] Address: [address] [place] [address] Performed By: #### Rishi ALEXIS, 88877-0, 5643-2 ####[facility]ORYCLIA [id number] [place] [address] [place] CBC W Auto Differential pane l (Bld)on 06-08-2023 Basophils (Bld) [#/Vol] 0.04 10*3/uL Normal <0.11 [facility] Comment on above: Order Comment: Speci men Type: BLOOD SPECIMENOrdering Facility: [facility] Address: [address] [place] [address] Performed By: #### 5 7021-8 ####[facility]ORYCLIA [id number] [address] [place] Basophils/100 WBC (Bld) 0.4 % Normal [facility] Comment on above: Order Comment: Speci men Type: BLOOD SPECIMENOrdering Facility: [facility] Address: [address] [place] [address] Performed By: #### 5 7021-8 ####[facility]ATORYCLIA [id number] [address] [place] Differential cell count method Nom (Bld) Auto Normal [facility] Comment on above: Order Comment: Speci men Type: BLOOD SPECIMENOrdering Facility: [facility] Address: [address] [place] [address] Performed By: #### 5 7021-8 ####[facility]ORYCLIA [id number] [place] [address] [place] Eosinophils (Bld) [#/Vol] 0.15 10*3/uL Normal <0.46 [facility] Comment on above: Order Comment: Speci men Type: BLOOD SPECIMENOrdering Facility: [facility] Address: [address] [place] [address] Performed By: #### 5 7021-8 ####[facility]ORYCLIA [id number] [address] Eosinophils/100 WBC (Bld) 1.6 % Normal [facility] Comment on above: Order Comment: Speci men Type: BLOOD SPECIMENOrdering Facility: [facility] Address: [address] [place] [address] Performed By: #### 5 7021-8 ####[facility]ORYCLIA [id number] [address] [place] Erythrocyte distribution width (RBC) [Ratio] 13.2 % Normal 11.5-15.0 [facility] Comment on above: Order Comment: Speci men Type: BLOOD SPECIMENOrdering Facility: [facility] Address: [address] [place] [address] Performed By: #### 5 7021-8 ####[facility]ORYCLIA [id number] [address] [place] Hematocrit (Bld) [Volume fraction] 47.6 % High 36.0-46.0 [facility] Comment on above: Order Comment: Speci men Type: BLOOD SPECIMENOrdering Facility: [facility] Address: [address] [place] [address] Performed By: #### 5 7021-8 ####[facility]ORYCLIA [id number] [place] [address] [place] Hemoglobin (Bld) [Mass/Vol] 16.3 g/dL High 11.5-15.5 [facility] Comment on above: Order Comment: Speci men Type: BLOOD SPECIMENOrdering Facility: [facility] Address: [address] [place] [address] Performed By: #### 5 7021-8 ####[facility]ORYCLIA [id number] [place] [address] [place] Immature granulocytes (Bld) [#/Vol] 10*3/uL Normal <0.10 [facility] Comment on above: Order Comment: Speci men Type: BLOOD SPECIMENOrdering Facility: [facility] Address: [address] [place] [address] Performed By: #### 5 7021-8 ####[facility]ORYCLIA [id number] [place] [address] [place] Immature granulocytes/100 WBC (Bld) 0.1 % Normal [facility] Comment on above: Order Comment: Speci men Type: BLOOD SPECIMENOrdering Facility: [facility] Address: [address] [place] [address] Performed By: #### 5 7021-8 ####[facility]ORYCLIA [id number] [place] [address] [place] Lymphocytes (Bld) [#/Vol] 2.22 10*3/uL Normal 1.00-4.00 [facility] Comment on above: Order Comment: Speci men Type: BLOOD SPECIMENOrdering Facility: [facility] Address: [address] [place] [address] Performed By: #### 5 7021-8 ####[facility]ORYCLIA [id number] [place] [address] [place] Lymphocytes/100 WBC (Bld) 23.8 % Normal [facility] Comment on above: Order Comment: Speci men Type: BLOOD SPECIMENOrdering Facility: [facility] Address: [address] [place] [address] Performed By: #### 5 7021-8 ####[facility]ORYCLIA [id number] [address] [place] MCH (RBC) [Entitic mass] 32.8 pg Normal 26.0-34.0 [facility] Comment on above: Order Comment: Speci men Type: BLOOD SPECIMENOrdering Facility: [facility] Address: [address] [place] [address] Performed By: #### 5 7021-8 ####[facility]ORYCLIA [id number] [address] [place] MCHC (RBC) [Mass/Vol] 34.2 g/dL Normal 30.5-36.0 [facility] Comment on above: Order Comment: Speci men Type: BLOOD SPECIMENOrdering Facility: [facility] Address: [address] [place] [address] Performed By: #### 5 7021-8 ####[facility]ORYCLIA [id number] [address] [place] MCV (RBC) [Entitic vol] 95.8 fL Normal 80.0-100.[address] [facility] Comment on above: Order Comment: Speci men Type: BLOOD SPECIMENOrdering Facility: [facility] Address: [address] [place] [address] Performed By: #### 5 7021-8 ####[facility]ORYCLIA [id number] [address] [place] Monocytes (Bld) [#/Vol] 0.63 10*3/uL Normal <0.87 [facility] Comment on above: Order Comment: Speci men Type: BLOOD SPECIMENOrdering Facility: [facility] Address: [address] [place] [address] Performed By: #### 5 7021-8 ####[facility]ORYCLIA [id number] [address] [place] Monocytes/100 WBC (Bld) 6.7 % Normal [facility] Comment on above: Order Comment: Speci men Type: BLOOD SPECIMENOrdering Facility: [facility] Address: [address] [place] [address] Performed By: #### 5 7021-8 ####[facility]ORYCLIA [id number] [place] [address] [place] Neutrophils (Bld) [#/Vol] 6.29 10*3/uL Normal 1.45-7.50 [facility] Comment on above: Order Comment: Speci men Type: BLOOD SPECIMENOrdering Facility: [facility] Address: [address] [place] [address] Performed By: #### 5 7021-8 ####[facility]ORYCLIA [id number] [place] [address] [place] Neutrophils/100 WBC (Bld) 67.4 % Normal [facility] Comment on above: Order Comment: Speci men Type: BLOOD SPECIMENOrdering Facility: [facility] Address: [address] [place] [address] Performed By: #### 5 7021-8 ####[facility]ORYCLIA [id number] [place] [address] [place] Nucleated RBC (Bld) [#/Vol] 10*3/uL Normal <0.01 [facility] Comment on above: Order Comment: Speci men Type: BLOOD SPECIMENOrdering Facility: [facility] Address: [address] [place] [address] Performed By: #### 5 7021-8 ####[facility]ATORYCLIA [id number] [place] [id number] [place] Nucleated RBC/100 WBC (Bld) [Ratio] 0.0 /100 WBC Normal [facility] Comment on above: Order Comment: Speci men Type: BLOOD SPECIMENOrdering Facility: [facility] Address: [address] [place] [address] Performed By: #### 5 7021-8 ####[facility]ORYCLIA [id number] [address] [place] Platelet mean volume (Bld) [Entitic vol] 10.5 fL Normal 9.0-12.7 [facility] Comment on above: Order Comment: Speci men Type: BLOOD SPECIMENOrdering Facility: [facility] Address: [address] [place] [address] Performed By: #### 5 7021-8 ####[facility]ATORYCLIA [id number] [place] [address] [place] Platelets (Bld) [#/Vol] 322 10*3/uL Normal 150-400 [facility] Comment on above: Order Comment: Speci men Type: BLOOD SPECIMENOrdering Facility: [facility] Address: [address] [place] [address] Performed By: #### 5 7021-8 ####[facility]ITALIA [id number] [address] [place] RBC (Bld) [#/Vol] 4.97 10*6/uL Normal 3.90-5.20 [facility] Comment on above: Order Comment: Speci men Type: BLOOD SPECIMENOrdering Facility: [facility] Address: [address] [place] [address] Performed By: #### 5 7021-8 ####[facility]ORYCLIA [id number] [place] [id number] [place] WBC (Bld) [#/Vol] 9.34 10*3/uL Normal 3.70-11.00 [facility] Comment on above: Order Comment: Speci men Type: BLOOD SPECIMENOrdering Facility: [facility] Address: [address] [place] [address] Performed By: #### 5 7021-8 ####[facility]ATORYCLIA [id number] [place] [id number] [facility] ECG COMPLETEon 06-08-2023 ECG COMPLETE Ventricular Rate : 129 BPM Atrial Rate : 129 BPM P-R Interval : 88 ms QRS Duration : 80 ms Q-T Interval : 370 ms QTC Calculation(Bazett) : 543 ms Calculated P [place] : 50 degrees Calculated R [place] : 56 degrees Calculated T [place] : 44 degrees Sinus tachycardia with short WA Otherwise normal ECG No previous ECGs available Confirmed by JAYESH OVALLE MD ([id number]) on 06/10/2023 10:19:29 AM NAME : DHAVAL MOON PID : [id number] : 2000 Gender : Female Race : Other ORD : [id number] Procedure Date : Jun 08 2023 17:54:26 Edit Date : Jun 10 2023 10:19:30 Diagnosis: Sinus tachycardia with short WA Otherwise normal ECG No previous ECGs available Confirmed by JAYESH OVALLE MD ([id number]) on 06/10/2023 10:19:29 AM Test Reason : STAT Location : 0 : ED D Overread By : JAYESH OVALLE MD Edited By : JAYESH OVALLE MD Referred By : , Acquired by : [facility] ED NOTEon 06-08-2023 ED NOTE HNO ID: [id number] Author: EDIE DAVE RN Service: ? Author Type: Registered Nurse Type: ED Notes Filed: 06/08/2023 21:25 Note Text: Ready to go up [facility] ED PROV NOTEon 06-08-2023 ED PROV NOTE HNO ID: [id number] Author: RICO VALENTE DO Service: ? Author Type: Physician Type: ED Provider Notes Filed: 06/08/2023 20:58 Note Text: ED Provider Note Patient Name: Dhaval Moon : 2000 SERVICE DATE: 06/08/23 History Patient presents with: Anxiety: Called EMS today for chest heaviness, upon arrival pt was hyperventilating, spasms in hands and feet. Hx of anxiety, has been off medications for a few months. Denies SI/HI. States has been drinking this week, could be dehydrated. Patient is a 22-year-old female presenting to the emergency department secondary to severe anxiety issues. Patient states she started developing an overwhelming sense of anxiety today, she was becoming tremulous and therefore came into the emergency department. She has a history of very severe alcohol use, she states over the past weeks she started drinking again and has been drinking about a half bottle of liquor daily. She stopped drinking yesterday and today developed the above symptoms. Patient denies any chest pains, no fevers, no other reported complaints. Denies any prior history of seizures with alcohol withdrawal. History provided by: Patient PAST MEDICAL HISTORY Diagnosis Date Alcoholism (HCC) Liver disease History reviewed. No pertinent surgical history. History reviewed. No pertinent family history. Social History Tobacco Use Smoking status: Every Day Packs/day: 0.50 Years: 5.00 Additional pack years: 0.00 Total pack years: 2.50 Types: Cigarettes Smokeless tobacco: Never Vaping Use Vaping Use: Never used Substance and Sexual Activity Alcohol use: Yes Comment: relapsed, was drinking past few days Drug use: Yes Frequency: 1.0 times per week Types: Marijuana, Crack Cocaine Comment: used coke with friend yesterday Sexual activity: Not Currently ALLERGIES Allergen Reactions Penicillins Review of Systems All other systems reviewed and are negative. Physical Exam Vitals [06/08/23 1745] BP Pulse Temp Temp src Resp SpO2 Weight Height 161/75 (!) 133 37.1 ?C (98.7 ?F) Oral 18 100 % 120.2 kg (265 lb) 1.549 m (5' 1 ) Physical Exam Vitals and nursing note reviewed. Constitutional: General: She is not in acute distress. Appearance: She is diaphoretic. Comments: Diffuse tremulousness HENT: Mouth/Throat: Mouth: Mucous membranes are dry. Pharynx: Oropharynx is clear. Eyes: Pupils: Pupils are equal, round, and reactive to light. Cardiovascular: Rate and Rhythm: Regular rhythm. Tachycardia present. Pulses: Normal pulses. Heart sounds: Normal heart sounds. No murmur heard. Pulmonary: Effort: Pulmonary effort is normal. No respiratory distress. Breath sounds: Normal breath sounds. Abdominal: Palpations: Abdomen is soft. Tenderness: There is no abdominal tenderness. Musculoskeletal: Right lower leg: No edema. Left lower leg: No edema. Skin: General: Skin is warm. Capillary Refill: Capillary refill takes less than 2 seconds. Findings: No rash. Neurological: General: No focal deficit present. Mental Status: She is alert and oriented to person, place, and time. Cranial Nerves: No cranial nerve deficit. Diagnostic Testing ED Labs Ordered and Reviewed COMPLETE BLOOD COUNT AND DIFFERENTIAL - Abnormal; Notable for the following components: Result Value Ref Range Hemoglobin 16.3 (*) 11.5 - 15.5 g/dL Hematocrit 47.6 (*) 36.0 - 46.0 % All other components within normal limits MAGNESIUM - Abnormal; Notable for the following components: Magnesium 1.5 (*) 1.6 - 2.6 mg/dL All other components within normal limits HEPATIC FUNCTION PNL - Abnormal; Notable for the following components: Bilirubin, Total 1.1 (*) 0.2 - 1.0 mg/dL Bilirubin, Conjugated 0.5 (*) 0.0 - 0.4 mg/dL AST 41 (*) 8 - 34 U/L All other components within normal limits BASIC METABOLIC PANEL - Abnormal; Notable for the following components: Glucose 101 (*) 70 - 100 mg/dL BUN <5 (*) 7 - 26 mg/dL Creatinine 0.50 (*) 0.51 - 0.95 mg/dL Potassium 3.2 (*) 3.5 - 5.1 mmol/L Chloride 108 (*) 98 - 107 mmol/L All other components within normal limits HIGH SENSITIVITY TROPONIN I - Normal HCG QUALITATIVE - Normal LIPASE - Normal ETHANOL/ALCOHOL - Normal TOXICOLOGY SCREEN, ROUTINE URINE TOXICOLOGY SCREEN, ROUTINE URINE Procedures ED Course / Clinical Impression ED Course as of 06/08/232055 Rico Valente's Documentation Crystal Jun 08, [id number] Case discussed with Dr. Olivares from the hospitalist service, he agrees with current evaluation and treatment and will be admitting the patient to a telemetry unit. Clinical Impressions as of 06/08/232055 Alcohol withdrawal syndrome without complication (HCC) Hypomagnesemia Hypokalemia Dehydration Alcohol abuse Prolonged Q-T interval on ECG MDM / Disposition / Plan Patient is a 22-year-old female presenting to the emergency department secondary to severe anxiety iss (more content not included)... Normal [facility] ED Triage Noteon 06-08-2023 ED Triage Note HNO ID: [id number] Author: EASTON LEAL PA-C Service: Emergency Medicine Author Type: Physician Order Filler Type: ED Triage Notes Filed: 06/08/2023 18:05 Note Text: ED TRIAGE PROVIDER NOTE Patient Name: Dhaval Moon Service Date: 06/08/23 BRIEF HPI: This is a 22 year old female who presents to the ED with: Patient presents feeling chest heaviness shortness of breath fast heart rate and anxiousness with tingling in her fingertips. She is a little tremulous. History of alcohol abuse states she relapsed this week but no alcohol today. No homicidal or suicidal ideations. BRIEF EXAM: Tremulous, tachycardic, otherwise well-appearing, soft abdomen, obese INITIAL WORKUP AND DECISION MAKING: Orders Placed This Encounter CBC W/ DIFF TROPONIN PREG SERUM MAG LEVEL LIPASE LIVER PANEL BMP URINE DRUG NaCl 0.9% 1,000 mL iv bolus folic acid 1 mg in NaCl 0.9% 50 mL thiamine 100 mg in NaCl 0.9% 50 mL (VITAMIN B1) LORazepam 1 mg injection (ATIVAN) NaCl 0.9% iv flush bag SIGNATURE: Easton Leal PA-C Normal [facility] Ethanol SerPl-mCncon 024 Ethanol [Mass/Vol] mg/dL Normal <0.010 [facility] Comment on above: Order Comment: Speci men Type: BLOOD SPECIMENOrdering Facility: [facility] Address: [address] [place] [address] Performed By: #### H , 53085-7, 5643-2 ####[facility] LABORATORYCLIA [id number] [place] [address] [place] HCG QUALITATIVEon 06-08-2023 HCG, QUALITATIVE Negative Normal Negative [facility] Comment on above: Order Comment: Speci men Type: BLOOD SPECIMENOrdering Facility: [facility] Address: [address] [place] [address] Performed By: #### H , 92326-9, 5643-2 ####[facility] LABORATORYCLIA [id number] [place] [address] [place] HIGH SENSITIVITY TROPONIN Io n 06-08-2023 Tropinin I.cardiac panel High sensitivity method <2.5 Normal 0.0-34.0 [facility] Comment on above: Order Comment: Speci men Type: BLOOD SPECIMENOrdering Facility: [facility] Address: [address] [place] [address] Result Comment: This assay uses different antibodies than our current assay, and assays, even by the same manager food beverage may recognize different regions of the antibody and cannot be used interchangeably. Expect results of this assay to run higher than the previous assay. Performed By: #### H STROQuincy ####[facility] LABORATORYCLIA [id number] [place] [id number] [place] HISTORY PHYSICALon HISTORY PHYSICAL HNO ID: [id number] Author: EASTON OLIVARES DO Service: Hospital Medicine Author Type: Nurse Practitioner Type: H&P Filed: 06/08/2023 23:20 Note Text: ---- Attestation signed by Easton Olivares DO at 06/08/2023 11:20 PM Attending Note I have personally performed a face to face assessment of the patient and have reviewed the CRISTY note. I performed a substantive portion of the visit. Patient presents with alcohol withdrawal symptoms. Continue following CIWA protocol and use scheduled phenobarbital to control symptoms. Signature: Easton Olivares DO Date: 06/08/2023 Time: 11:20 PM ---- HISTORY AND PHYSICAL EXAMINATION SERVICE DATE: 06/08/2023 SERVICE TIME: 9:28 PM PRIMARY CARE PHYSICIAN: Anthony Booth MD SUBJECTIVE: CHIEF COMPLAINT: Anxiety HPI: This is a 22 year old female with past medical history significant for alcoholism, hypertension, and liver disease who presents with complaint of anxiety. Patient presented to the ER with complaints of chest heaviness, hyperventilating, and spasms in the hands and feet secondary to anxiety. Patient has history of severe alcoholism and reports that she did quit drinking for about 3 months however resumed this week due to increased stress. She is nonspecific and what type of alcohol and amount she drinks. She reports that she has been drinking about half a bottle of liquor per day. She further reports marijuana and cocaine use. She denies, chills, shortness of breath palpitations, abdominal pain, or dysuria. She denies any history of seizures secondary to alcohol withdrawal. She does report difficulty controlling her extremities, anxiety, visual and auditory hallucinations. In the ER, lab work significant for potassium 3.2, magnesium 1.5, total bilirubin 1.5 AST 41. Ethanol level negative. Troponin negative. Heart rate elevated in the 140s and systolic blood pressure into the 170s. She was given 1 mg IV folic acid, 1 mg IV Ativan x 2, 1 L IV fluid bolus, 4 g IV magnesium, 40 mEq oral potassium, and 100 mg IV thiamine. She will be admitted to the medical unit for further evaluation and treatment of alcohol withdrawal with continued IV fluid hydration, electrolyte optimization, and phenobarbital. FUNCTIONAL STATUS: Independent PAST MEDICAL HISTORY Diagnosis Date Alcoholism (HCC) HTN (hypertension) Liver disease History reviewed. No pertinent surgical history. History reviewed. No pertinent family history. Social History Tobacco Use Smoking status: Every Day Packs/day: 0.50 Years: 5.00 Additional pack years: 0.00 Total pack years: 2.50 Types: Cigarettes Smokeless tobacco: Never Vaping Use Vaping Use: Never used Substance Use Topics Alcohol use: Yes Comment: relapsed, was drinking past few days Drug use: Yes Frequency: 1.0 times per week Types: Marijuana, Crack Cocaine Comment: used coke with friend yesterday (Not in a hospital admission) ALLERGIES Allergen Reactions Penicillins Review of Systems Review of Systems Constitutional: Positive for chills. Negative for fever. HENT: Negative for congestion and sore throat. Eyes: Negative for pain. Respiratory: Positive for shortness of breath. Negative for cough. Cardiovascular: Positive for chest pain and hypertension . Negative for palpitations. Gastrointestinal: Negative for abdominal pain and nausea. Genitourinary: Negative for dysuria and frequency. Musculoskeletal: Negative for back pain and myalgias. Skin: Negative for rash and wound. Neurological: Positive for tremors. Negative for dizziness and headaches. Hematological: Negative for bleeding / clotting disorders . Does not bruise/bleed easily. Psychiatric/Behavio ral: Positive for confusion and hallucinations. The patient is nervous/anxious. OBJECTIVE: PHYSICAL EXAM: Physical Exam Performed: Physical Exam Vitals and nursing note reviewed. Constitutional: General: She is not in acute distress. HENT: Head: Normocephalic and atraumatic. Right Ear: External ear normal. Left Ear: External ear normal. Nose: Nose normal. Mouth/Throat: Mouth: Mucous membranes are dry. Pharynx: Oropharynx is clear. Eyes: General: Right eye: No discharge. Left eye: No discharge. Cardiovascular: Rate and Rhythm: Regular rhythm. Tachycardia present. Pulses: Normal pulses. Heart sounds: Normal heart sounds. Pulmonary: Effort: Pulmonary effort is normal. Breath sounds: Normal breath sounds. Abdominal: General: Bowel sounds are normal. Palpations: Abdomen is soft. Musculoskeletal: Cervical back: Normal range of motion and neck supple. Right lower leg: No edema. Left lower leg: No edema. Skin: General: Skin is warm and dry. Capillary Refill: Capillary refill takes less than 2 seconds. Neurological: Men (more content not included)... Normal [facility] Hepatic function 2000 panelo n 06-08-2023 Albumin [Mass/Vol] 3.7 g/dL Normal 3.2-5.0 [facility] Comment on above: Order Comment: Speci men Type: BLOOD SPECIMENOrdering Facility: [facility] Address: [address] [place] [address] Performed By: #### 2 4325-3, 3039-3, ####[facility] LABORATORYCLIA [id number] [place] [address] [place] ALP [Catalytic activity/Vol] 98 U/L Normal 45-117 [facility] Comment on above: Order Comment: Speci men Type: BLOOD SPECIMENOrdering Facility: [facility] Address: [address] [place] [address] Performed By: #### 2 4325-3, 3040-3, ####[facility] LABORATORYCLIA [id number] [place] [address] [place] ALT [Catalytic activity/Vol] 35 U/L Normal 13-61 [facility] Comment on above: Order Comment: Speci men Type: BLOOD SPECIMENOrdering Facility: [facility] Address: [address] [place] [address] Result Comment: Resu lts may be falsely depressed after the administration of Sulfasalazine and/or Sulfapyridine. Performed By: #### 2 4325-3, 3040-3, ####[facility] LABORATORYCLIA [id number] [place] [id number] [place] AST [Catalytic activity/Vol] 41 U/L High 8-34 [facility] Comment on above: Order Comment: Speci men Type: BLOOD SPECIMENOrdering Facility: [facility] Address: [address] [place] [address] Result Comment: Resu lts may be falsely depressed after the administration of Sulfasalazine and/or Sulfapyridine. Performed By: #### 2 4325-3, 3040-3, ####[facility] LABORATORYCLIA [id number] [place] [id number] [place] Bilirubin [Mass/Vol] 1.1 mg/dL High 0.2-1.0 [facility] Comment on above: Order Comment: Speci men Type: BLOOD SPECIMENOrdering Facility: [facility] Address: [address] [place] [address] Performed By: #### 2 4325-3, 3040-3, ####[facility]ORATORYCLIA [id number] [place] [id number] [place] Bilirubin.conjugated [Mass/Vol] 0.5 mg/dL High 0.0-0.4 [facility] Comment on above: Order Comment: Speci men Type: BLOOD SPECIMENOrdering Facility: [facility] Address: [address] [place] [address] Performed By: #### 2 4325-3, 3040-3, ####[facility] LABORATORYCLIA [id number] [place] [address] [place] Protein [Mass/Vol] 8.0 g/dL Normal 6.0-8.5 [facility] Comment on above: Order Comment: Speci men Type: BLOOD SPECIMENOrdering Facility: [facility] Address: [facility] [place] [address] Performed By: #### 2 4325-3, 3040-3, ####[facility] LABORATORYCLIA [id number] [place] [id number] [place] Lipase SerPl-cCncon 06-08-19 Lipase [Catalytic activity/Vol] 22 U/L Normal 12-60 [facility] Comment on above: Order Comment: Speci men Type: BLOOD SPECIMENOrdering Facility: [facility] Address: [facility] [place] [id number] Performed By: #### 2 4325-3, 3040-3, ####[facility] LABORATORYCLIA [id number] [place] [id number] [place] Magnesium SerPl-mCncon 06-07 Magnesium [Mass/Vol] 1.5 mg/dL Low 1.6-2.6 [facility] Comment on above: Order Comment: Speci men Type: BLOOD SPECIMENOrdering Facility: [facility] Address: [facility] [place] [id number] Performed By: #### 2 4325-3, 3040-3, ####[facility] LABORATORYCLIA [id number] [place] [id number] [place] 36on 05-05-2023 36 Called the phone number in chart---not a working number--patient had a NCNS for a BP check today. Normal [facility] Progress Noteon 04-26-2023 Progress Note We will increase her Zoloft to 100 mg daily and have her follow-up in 3 to 4 weeks. Normal [facility] 36on 04-25-2023 36 Prescription Request: Last medication check: 03/21/23(hosp follow up) Last physical exam: none Next scheduled appointment: 04/25/23 Last date of refill on this medication 03/21/23 30 day no refill Normal [facility] Office Visiton 04-25-2023 Follow-up visit [id number] Dhaval Moon 2000 F Date Provider Department Center 04/25/2023 10640-WQMEXRANTHONY BOOTH ЕКАТЕРИНА [facility] Family History Problem Relation Age of Onset High Blood Pressure Father No Known Problems Mother Family Status - Relation Status Age at Father Alive Mother Alive Level of Service:42095 [place] OFFICE/OUTPATIENT ESTABLISHED MOD MDM 30 MIN Reason for Visit and Comments: Follow-up [430448] - 4 week Anxiety [9] ER Follow-up [831] - Several times - feet cellulitis and on atb feet are scabby and drainage very painful get spasms in feet Spasms [206212] - Whole body will be shake Letter for School/Work [554363] Blood Work [969481] - Wonders if need potassium checked Weight Loss [611915] - Pt concerned about 20lb weight loss in the last month Normal [facility] Progress Noteon 04-25-2023 Progress Note Stable, refill albuterol MDI and albuterol solution. Normal [facility] Progress Note Stable, she says she has not been drinking and she also thinks that the gabapentin is not working well for the neuropathy so we will switch her to Lyrica. OARRS report done, no inconsistencies, Rx sent Normal [facility] Progress Note Patient verified by last name and date of . Normal [facility] Progress Note 04/25/2023 Dhaval Moon (: 2000) is a 22 y.o. female , Established patient, here for evaluation of the following chief complaint(s): Follow-up (4 week), Anxiety, ER Follow-up (Several times - feet cellulitis and on atb feet are scabby and drainage very painful get spasms in feet ), Spasms (Whole body will be shake ), Letter for School/Work, Blood Work (Wonders if need potassium checked ), and Weight Loss (Pt concerned about 20lb weight loss in the last month) ASSESSMENT/PLAN: 1. Alcohol-induced polyneuropathy (HCC) Assessment & Plan: Stable, she says she has not been drinking and she also thinks that the gabapentin is not working well for the neuropathy so we will switch her to Lyrica. OARRS report done, no inconsistencies, Rx sent Orders: - pregabalin (Lyrica) 100 MG capsule; Take 1 capsule (100 mg) by mouth 3 times daily., Starting Mon04/25/2023, Until Crystal 05/25/2023, Normal - [facility] 2. Moderate persistent asthma with exacerbation Assessment & Plan: Stable, refill albuterol MDI and albuterol solution. 3. Multiple open wounds of foot Assessment & Plan: Referral to wound center in [place] Orders: - pregabalin (Lyrica) 100 MG capsule; Take 1 capsule (100 mg) by mouth 3 times daily., Starting Mon04/25/2023, Until Mon05/25/2023, [facility] 4. Moderate episode of recurrent major depressive disorder (HCC) Assessment & Plan: We will increase her Zoloft to 100 mg daily and have her follow-up in 3 to 4 weeks. Follow up in about 4 weeks (around 05/23/2023). SUBJECTIVE/OBJECTIV E: HELEN Bryan comes in today for follow-up on her alcohol induced polyneuropathy or asthma and her wounds on her feet she is also having muscle spasms in her feet most likely from her neuropathy. We also discussed her depression and she felt that she could probably benefit from going up on her Zoloft. Blood pressure is elevated today we will recheck that prior to discharge Review of Systems Constitutional: Negative for chills and fever. HENT: Negative for ear pain, rhinorrhea and sinus pressure. Respiratory: Negative for shortness of breath. Cardiovascular: Negative for chest pain and palpitations. Musculoskeletal: Positive for myalgias. Psychiatric/Behavio ral: Positive for dysphoric mood and sleep disturbance. Negative for self-injury and suicidal ideas. The patient is nervous/anxious. Vitals: 04/25/23 1437 04/25/23 1510 BP: (!) 151/105 (!) 153/98 Pulse: (!) 125 (!) 125 SpO2: 91% Weight: 274 lb 9.6 oz (125 kg) Height: 5' 2 (1.575 m) Physical Exam Vitals and nursing note reviewed. Constitutional: General: She is not in acute distress. Appearance: Normal appearance. HENT: Head: Normocephalic and atraumatic. Mouth/Throat: Mouth: Mucous membranes are moist. Pharynx: Oropharynx is clear. Eyes: Extraocular Movements: Extraocular movements intact. Pupils: Pupils are equal, round, and reactive to light. Cardiovascular: Rate and Rhythm: Normal rate and regular rhythm. Heart sounds: Normal heart sounds. No murmur heard. Pulmonary: Effort: Pulmonary effort is normal. Breath sounds: Normal breath sounds. Abdominal: Comments: Morbidly obese Musculoskeletal: Cervical back: Neck supple. Lymphadenopathy: Cervical: No cervical adenopathy. Skin: Comments: Feet with scaly erythematous skin with multiple small wounds, neuropathy that is very painful Neurological: Mental Status: She is alert. Psychiatric: Mood and Affect: Mood is anxious and depressed. Affect is flat. An electronic signature was used to authenticate this note. Anthony Booth MD 04/26/2023 8:15 AM [facility] 36on 04-21-2023 36 Called to [facility] for appointment with Dr. Booth on 04/24/23. Phone is not accepting calls at this time. If the patient calls back during business hours, please transfer to our backline. Otherwise, Please arrive 15 minutes early with your insurance card and photo ID. Thank you! [facility] ED NOTEon 04-21-2023 ED NOTE HNO ID: [id number] Author: MARISOL GRIFFITH LPN Service: ? Author Type: LICENSED NURSE Type: ED Notes Filed: 04/21/2023 19:21 Note Text: Pt called x2, no answer, LWBS after triage. [facility] 3604-18-2023 36 Called and was unable to LM--phone was not accepting phone calls at this time. She missed appt for a [address] Booth today. [place] [address] 04-17-2023 36 Rx sent, needs to come in and sign a CS agreement OARRS report done, no inconsistencies [facility] 36 CSA not found. [facility] 36 Medication name: gabapentin (Neurontin) capsule Medication dosage: 300 mg (Miligrams Monthly quantity needed: 90 How many day supply requestin days Medication route: oral (PO) Medication administration time(s): 3 times a day (TID) If taking medication PRN, reason for taking medication: N/A If this is a controlled substance do you receive this or any other controlled medication from any other doctor or facility: N/A Ordering provider: Leobardo Date of last office visit: 03.21.2023 Date of next office visit: 04.18.2023 Date of last refill: (see medication tab): 03.21.2023 Updated/Validated preferred pharmacy: Yes Patient instructed to contact the pharmacy prior to picking up the medication: Yes Normal [facility] CBC W Auto Differential pane l (Bld)on 04-11-2023 Basophils (Bld) [#/Vol] 0.04 10*3/uL Normal <0.11 [facility] Comment on above: Order Comment: Janes merlos Type: BLOOD SPECIMEN Ordering Facility: [facility] Address: [address] [place] [address] Performed By: #### 5 7021-8, 4537-7 #### [facility] CLIA [id number] [address] [place] [address] [place] Basophils/100 WBC (Bld) 0.3 % Normal [facility] Comment on above: Order Comment: Janes merlos Type: BLOOD SPECIMEN Ordering Facility: [facility] Address: [address] [place] [address] Performed By: #### 5 7021-8, 4537-7 #### [facility] CLIA [id number] [address] [place] [address] [place] Differential cell count method Nom (Bld) Auto Normal [facility] Comment on above: Order Comment: Janes merlos Type: BLOOD SPECIMEN Ordering Facility: [facility] Address: [address] [place] [address] Performed By: #### 5 7021-8, 4537-7 #### [facility] CLIA [id number] [address] [place] [address] [place] Eosinophils (Bld) [#/Vol] 0.19 10*3/uL Normal <0.46 [facility] Comment on above: Order Comment: Speci men Type: BLOOD SPECIMEN Ordering Facility: [facility] Address: [address] [place] [address] Performed By: #### 5 7021-8, 4537-7 #### [facility] CLIA [id number] [address] [place] [address] [place] Eosinophils/100 WBC (Bld) 1.5 % Normal [facility] Comment on above: Order Comment: Speci men Type: BLOOD SPECIMEN Ordering Facility: [facility] Address: [address] [place] [address] Performed By: #### 5 7021-8, 4536-7 #### [facility] CLIA [id number] [address] [place] [address] [place] Erythrocyte distribution width (RBC) [Ratio] 13.1 % Normal 11.5-15.0 [facility] Comment on above: Order Comment: Speci men Type: BLOOD SPECIMEN Ordering Facility: [facility] Address: [address] [place] [address] Performed By: #### 5 7021-8, 453-7 #### [facility] CLIA [id number] [address] [place] [address] [place] Hematocrit (Bld) [Volume fraction] 43.1 % Normal 36.0-46.0 [facility] Comment on above: Order Comment: Speci men Type: BLOOD SPECIMEN Ordering Facility: [facility] Address: [address] [place] [address] Performed By: #### 5 7021-8, 4537-7 #### [facility] CLIA [id number] [address] [place] [address] [place] Hemoglobin (Bld) [Mass/Vol] 14.9 g/dL Normal 11.5-15.5 [facility] Comment on above: Order Comment: Speci men Type: BLOOD SPECIMEN Ordering Facility: [facility] Address: [address] [place] [address] Performed By: #### 5 7021-8, 4537-7 #### [facility] CLIA [id number] [address] [place] [address] [place] Immature granulocytes (Bld) [#/Vol] 0.06 10*3/uL Normal <0.10 [facility] Comment on above: Order Comment: Speci men Type: BLOOD SPECIMEN Ordering Facility: [facility] Address: [address] [place] [address] Performed By: #### 5 7021-8, 4537-7 #### [facility] CLIA [id number] [address] [place] [address] [place] Immature granulocytes/100 WBC (Bld) 0.5 % Normal [facility] Comment on above: Order Comment: Speci men Type: BLOOD SPECIMEN Ordering Facility: [facility] Address: [address] [place] [address] Performed By: #### 5 7021-8, 4537-7 #### [facility] CLIA [id number] [address] [place] [address] [place] Lymphocytes (Bld) [#/Vol] 1.66 10*3/uL Normal 1.00-4.00 [facility] Comment on above: Order Comment: Speci men Type: BLOOD SPECIMEN Ordering Facility: [facility] Address: [address] [place] [address] Performed By: #### 5 7021-8, 4537-7 #### [facility] CLIA [id number] [address] [place] [address] [place] Lymphocytes/100 WBC (Bld) 13.1 % Normal [facility] Comment on above: Order Comment: Speci men Type: BLOOD SPECIMEN Ordering Facility: [facility] Address: [address] [place] [address] Performed By: #### 5 7021-8, 4537-7 #### [facility] CLIA [id number] [address] [place] [address] [place] MCH (RBC) [Entitic mass] 34.4 pg High 26.0-34.0 [facility] Comment on above: Order Comment: Speci men Type: BLOOD SPECIMEN Ordering Facility: [facility] Address: [address] [place] [address] Performed By: #### 5 7021-8, 4537-7 #### [facility] CLIA [id number] [address] [place] [address] [place] MCHC (RBC) [Mass/Vol] 34.6 g/dL Normal 30.5-36.0 [facility] Comment on above: Order Comment: Speci men Type: BLOOD SPECIMEN Ordering Facility: [facility] Address: [address] [place] [address] Performed By: #### 5 7021-8, 453-7 #### [facility] CLIA [id number] [address] [place] [address] [place] MCV (RBC) [Entitic vol] 99.5 fL Normal 80.0-100.0 [facility] Comment on above: Order Comment: Speci men Type: BLOOD SPECIMEN Ordering Facility: [facility] Address: [address] [place] [address] Performed By: #### 5 7021-8, 4536-7 #### [facility] CLIA [id number] [address] [place] [address] [place] Monocytes (Bld) [#/Vol] 1.03 10*3/uL High <0.87 [facility] Comment on above: Order Comment: Speci men Type: BLOOD SPECIMEN Ordering Facility: [facility] Address: [address] [place] [address] Performed By: #### 5 7021-8, 4537-7 #### [facility] CLIA [id number] [address] [place] [address] [place] Monocytes/100 WBC (Bld) 8.1 % Normal [facility] Comment on above: Order Comment: Speci men Type: BLOOD SPECIMEN Ordering Facility: [facility] Address: [address] [place] [address] Performed By: #### 5 7021-8, 4537-7 #### [facility] CLIA [id number] [address] [place] [address] [place] Neutrophils (Bld) [#/Vol] 9.68 10*3/uL High 1.45-7.50 [facility] Comment on above: Order Comment: Speci men Type: BLOOD SPECIMEN Ordering Facility: [facility] Address: [address] [place] [address] Performed By: #### 5 7021-8, 4537-7 #### [facility] CLIA [id number] [address] [place] [address] [place] Neutrophils/100 WBC (Bld) 76.5 % Normal [facility] Comment on above: Order Comment: Speci men Type: BLOOD SPECIMEN Ordering Facility: [facility] Address: [address] [place] [address] Performed By: #### 5 7021-8, 4537-7 #### [facility] CLIA [id number] [address] [place] [address] [place] Nucleated RBC (Bld) [#/Vol] 10*3/uL Normal <0.01 [facility] Comment on above: Order Comment: Speci men Type: BLOOD SPECIMEN Ordering Facility: [facility] Address: [address] [place] [address] Performed By: #### 5 7021-8, 7-7 #### [facility] CLIA [id number] [address] [place] [address] [place] Nucleated RBC/100 WBC (Bld) [Ratio] 0.0 /100 WBC Normal [facility] Comment on above: Order Comment: Speci men Type: BLOOD SPECIMEN Ordering Facility: [facility] Address: [address] [place] [address] Performed By: #### 5 7021-8, 4537-7 #### [facility] CLIA [id number] [address] [place] [address] [place] Platelet mean volume (Bld) [Entitic vol] 11.4 fL Normal 9.0-12.7 [facility] Comment on above: Order Comment: Speci men Type: BLOOD SPECIMEN Ordering Facility: [facility] Address: [address] [place], [place] [address] Performed By: #### 5 7021-8, 4537-7 #### [facility] CLIA [id number] [address] [place], [place] [id number] [place] Platelets (Bld) [#/Vol] 353 10*3/uL Normal 150-400 [facility] Comment on above: Order Comment: Speci men Type: BLOOD SPECIMEN Ordering Facility: [facility] Address: [address] [place] [address] Performed By: #### 5 7021-8, 4537-7 #### [facility] CLIA [id number] [address] [place] [address] [place] RBC (Bld) [#/Vol] 4.33 10*6/uL Normal 3.90-5.20 [facility] Comment on above: Order Comment: Speci men Type: BLOOD SPECIMEN Ordering Facility: [facility] Address: [address] [place], [place] [address] Performed By: #### 5 7021-8, 4537-7 #### [facility] CLIA [id number] [address] [place] [address] [place] WBC (Bld) [#/Vol] 12.66 10*3/uL High 3.70-11.00 [facility] Comment on above: Order Comment: Speci men Type: BLOOD SPECIMEN Ordering Facility: [facility] Address: [address] [place], [place] [address] Performed By: #### 5 7021-8, 4537-7 #### [facility] CLIA [id number] [address] [place] [address] [facility] [place] CRP SerPl-mCncon 04-11-2023 CRP [Mass/Vol] 3.5 mg/dL High <1.0 [facility] Comment on above: Order Comment: Speci men Type: BLOOD SPECIMENOrdering Facility: [facility] Address: [address] [place] [address] Performed By: #### 2 4323-8, 5643-2, HCG, 1987-06 ####[facility] [id number] [place] [id number] [place] Comprehensive metabolic 2000 panelon 04-11-2023 Albumin [Mass/Vol] 3.6 g/dL Normal 3.2-5.0 [facility] Comment on above: Order Comment: Speci men Type: BLOOD SPECIMEN Ordering Facility: [facility] Address: [address] [place] [address] Performed By: #### 2 432-8, 5643-2, HCG, 1987-06 #### [facility] CLIA [id number] [address] [place], [place] [address] [place] ALP [Catalytic activity/Vol] 100 U/L Normal 45-117 [facility] Comment on above: Order Comment: Speci men Type: BLOOD SPECIMEN Ordering Facility: [facility] Address: [address] [place] [address] Performed By: #### 2 432-8, 5643-2, HCG, 1987-06 #### [facility] CLIA [id number] [address] [place], [place] [address] [place] ALT [Catalytic activity/Vol] 37 U/L Normal 13-61 [facility] Comment on above: Order Comment: Speci men Type: BLOOD SPECIMEN Ordering Facility: [facility] Address: [address] [place] [address] Result Comment: Resu lts may be falsely depressed after the administration of Sulfasalazine and/or Sulfapyridine. Performed By: #### 2 4323-8, 5643-2, HCG, 1987-06 #### [facility] CLIA [id number] [address] [place], [place] [address] [place] Anion gap [Moles/Vol] 14 mmol/L Normal 5-16 [facility] Comment on above: Order Comment: Speci men Type: BLOOD SPECIMEN Ordering Facility: [facility] Address: [address] [place] [address] Performed By: #### 2 4322-8, 5643-2, HCG, 1987-06 #### [facility] CLIA [id number] [address] [place], [place] [id number] [place] AST [Catalytic activity/Vol] 59 U/L High 8-34 [facility] Comment on above: Order Comment: Speci men Type: BLOOD SPECIMEN Ordering Facility: [facility] Address: [address] [place] [address] Result Comment: Resu lts may be falsely depressed after the administration of Sulfasalazine and/or Sulfapyridine. Performed By: #### 2 432-8, 5643-2, HCG, 1987-06 #### [facility] CLIA [id number] [address] [place], [place] [address] [place] Bilirubin [Mass/Vol] 2.2 mg/dL High 0.2-1.0 [facility] Comment on above: Order Comment: Speci men Type: BLOOD SPECIMEN Ordering Facility: [facility] Address: [address] [place] [address] Performed By: #### 2 432-8, 43-2, HCG, 1987-06 #### [facility] CLIA [id number] [address] [place] [address] [place] Calcium [Mass/Vol] 10.1 mg/dL Normal 8.5-10.5 [facility] Comment on above: Order Comment: Speci men Type: BLOOD SPECIMEN Ordering Facility: [facility] Address: [address] [place] [address] Performed By: #### 2 4322-8, 5642-2, HCG, 1987-06 #### [facility] CLIA [id number] [address] [place], [place] [address] [place] Chloride [Moles/Vol] 102 mmol/L Normal 98-107 [facility]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 [place] Specific gravity (U) [Rel density] 1.020 Normal 1.005-1.030 [facility] Comment on above: Order Comment: Speci men Type: URINE SPECIMENOrdering Facility: [facility] Address: [address] [place] [address] Performed By: #### 2 4356-8 ####[facility]ORYCLIA [id number] [address] [place] Urobilinogen Ql (U) 1+ Abnormal Negative [facility] Comment on above: Order Comment: Speci men Type: URINE SPECIMENOrdering Facility: [facility] Address: [address] [place] [address] Performed By: #### 2 4356-8 ####[facility]ATORYCLIA [id number] [place] [id number] [facility] WBC LM.HPF (Urine sed) [#/Area] 0-5 /HPF Normal 0-5 /HPF [facility] Comment on above: Order Comment: Speci men Type: URINE SPECIMENOrdering Facility: [facility] Address: [address] [place], [place] [address] Performed By: #### 2 4356-8 ####[facility]ATORYCLIA [id number] [place] [id number] [facility] XR FOOT 3V AP/LAT/OBL BILon 04-11-2023 XR FOOT 3V AP/LAT/OBL HELADIO * * *Final Report* * * DATE OF EXAM: Apr 11 2023 4:57PM RHX 5555 - XR FOOT 3V AP/LAT/OBL HELADIO / PROCEDURE REASON: Foot trauma, no prior imaging * * * * Physician Interpretation * * * * EXAM: XR FOOT 3V AP/LAT/OBL HELADIO HISTORY: Foot trauma, no prior imaging COMPARISON: None available FINDINGS: Right foot: Circumferential soft tissue swelling is present. No underlying osteolysis, fracture or dislocation. No significant degenerative change. No radiopaque foreign body. Left foot: Circumferential soft tissue swelling is present. No fracture or dislocation. No osteolysis. No radiopaque foreign body. No significant degenerative change. IMPRESSION: Bilateral foot soft tissue swelling without underlying acute osseous abnormality. Fusion Operator: PSCB Transcribe Date/Time: Apr 11 2023 5:36P Dictated by : MARY COLE MD This examination was interpreted and the report reviewed and electronically signed by: MARY COLE MD on Apr 11 2023 5:39PM EST [id number] Normal [facility] aPTT PPPon 04-11-2023 aPTT Coag (PPP) [Time] 27.9 s Normal 23.0-32.4 [facility] Comment on above: Order Comment: Speci men Type: BLOOD SPECIMEN Ordering Facility: [facility] Address: [address] [place] [address] [place] [address] Performed By: #### 3 4528-0, 24550-7 #### [facility] CLIA [id number] [address] [place] [address] [address] [facility] [place] Office Visiton 03-21-2023 Follow-up visit [id number] Dhaval Moon 2000 F Date Provider Department Center 03/21/2023 [id number]-BVYCRZANTHONY BOOTH [facility] Family History Problem Relation Age of Onset High Blood Pressure Father No Known Problems Mother Family Status - Relation Status Age at Father Alive Mother Alive Level of Service:03441 [place] OFFICE/OUTPATIENT ESTABLISHED MOD MDM 30 MIN Reason for Visit and Comments: Hospital Follow-up [832] - [facility] 04/08/22- Was told have thyroid issue but they did not treat due to medications she was on Alcohol Problem [3] - Need to get into treatment Hypertension [594053] neuropathy [Other] Anemia [636098] Anxiety [9] Depression [32] - Bipolar Normal [facility] Progress Noteon 03-21-2023 Progress Note Uncontrolled, Zoloft 50 mg daily follow-up in 3 to 4 weeks Normal [facility] Progress Note Encourage patient to go online and get the number for Alcoholics Anonymous to be put in touch with a sponsor IBRAHIMA to keep her from going back on the alcohol. Normal [facility] Progress Note Repeat CBC today Normal [facility] Progress Note Repeat lab work today for confirmation. Normal [facility] Progress Note Encourage patient to continue weight loss with diet and exercise. Normal [facility] Progress Note Stable, we will refill her albuterol inhaler Normal [facility] Progress Note Gabapentin will increase that to 300 mg 3 times a day OARRS report done, no inconsistencies, CS agreement will need to sign and also get her into some physical therapy. Normal [facility] Progress Note Will refer patient to physical therapy for strengthening and weightbearing and balance Normal [facility] Progress Note 03/21/2023 Dhaval Moon (: 2000) is a 22 y.o. female , Established patient, here for evaluation of the following chief complaint(s): Hospital Follow-up ([facility] 04/08/22-//Wa s told have thyroid issue but they did not treat due to medications she was on), Alcohol Problem (Need to get into treatment ), Hypertension, neuropathy, Anemia, Anxiety, and Depression (Bipolar ) ASSESSMENT/PLAN: 1. ETOH abuse Assessment & Plan: Encourage patient to go online and get the number for Alcoholics Anonymous to be put in touch with a sponsor IBRAHIMA to keep her from going back on the alcohol. Orders: - Comprehensive metabolic panel 2. Anxiety Assessment & Plan: Uncontrolled, Zoloft 50 mg daily follow-up in 3 to 4 weeks 3. Moderate persistent asthma with exacerbation Assessment & Plan: Stable, we will refill her albuterol inhaler 4. Alcohol-induced polyneuropathy (HCC) Assessment & Plan: Gabapentin will increase that to 300 mg 3 times a day OARRS report done, no inconsistencies, CS agreement will need to sign and also get her into some physical therapy. Orders: - [facility] 5. Weakness of both lower extremities Assessment & Plan: Will refer patient to physical therapy for strengthening and weightbearing and balance Orders: - [facility] 6. Acquired hypothyroidism Assessment & Plan: Repeat lab work today for confirmation. Orders: - TSH - T4, free - T3, free 7. Polycythemia Assessment & Plan: Repeat CBC today Orders: - CBC auto differential 8. Morbid obesity with body mass index (BMI) of 50.0 to 59.9 in adult (HCC) Assessment & Plan: Encourage patient to continue weight loss with diet and exercise. Follow up in about 4 weeks (around 04/18/2023). SUBJECTIVE/OBJECTIV E: HELEN Bryan comes in today for follow-up on a hospital admission for detox for alcohol abuse she also was noted at that time to have an elevated TSH so we need to follow-up on not she had polycythemia but she also was dehydrated so that possibly could have been contributing she had a urinary tract infection that seems to have been resolved. 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 She also would like to get into some physical therapy. We also discussed her alcohol abuse and that she needs to contact AA today and get set up to be attending meetings. Review of Systems Constitutional: Negative for chills and fever. Respiratory: Negative for shortness of breath. Cardiovascular: Negative for chest pain and palpitations. Gastrointestinal: Negative for abdominal pain, blood in stool, constipation and diarrhea. Genitourinary: Negative for dyspareunia, dysuria, frequency, hematuria and urgency. Neurological: Negative for weakness and numbness. Psychiatric/Behavio ral: Negative for dysphoric mood. The patient is not nervous/anxious. Vitals: 03/21/23 1021 03/21/23 1049 BP: (!) 132/90 (!) 132/92 Pulse: (!) 120 (!) 112 SpO2: 96% Weight: (!) 301 lb 9.6 oz (137 kg) Height: 5' 2 (1.575 m) Physical Exam Vitals and nursing note reviewed. Constitutional: General: She is not in acute distress. Appearance: Normal appearance. She is obese. HENT: Head: Normocephalic. Mouth/Throat: Mouth: Mucous membranes are moist. Pharynx: Oropharynx is clear. Eyes: Extraocular Movements: Extraocular movements intact. Pupils: Pupils are equal, round, and reactive to light. Cardiovascular: Rate and Rhythm: Normal rate and regular rhythm. Heart sounds: Normal heart sounds. No murmur heard. Pulmonary: Effort: Pulmonary effort is normal. Breath sounds: Normal breath sounds. Abdominal: Comments: Obese Musculoskeletal: General: Normal range of motion. Cervical back: Normal range of motion. Lymphadenopathy: Cervical: No cervical adenopathy. Skin: General: Skin is warm and dry. Neurological: General: No focal deficit present. Mental Status: She is alert and oriented to person, place, and time. Psychiatric: Mood and Affect: Mood normal. An electronic signature was used to authenticate this note. Anthony Booth MD 03/21/2023 11:52 AM Normal [facility] Progress Note Patient verified by last name and date of . Normal [facility] CT Brain wo contraston 03-08 CT Brain wo contrast CT HEAD: CLINICAL INDICATION: [id number]: Dizziness TECHNIQUE: Transaxial CT sequence performed through the head with 3 mm reconstruction. Sagittal and Coronal reconstruction images included. Dose reduction was employed with automated exposure control. COMPARISON: None FINDINGS: Cerebral and cerebellar parenchyma: No acute intraparenchymal hemorrhage. No midline shift. Incidental prominent perivascular space in the inferior right basal ganglia. Ventricles and Extra-axial spaces: Normal in size and morphology for the patient's age. No abnormal extracerebral collection identified. Visualized Paranasal sinuses: Normal. Mastoid air cells: Normal. Visualized Orbits: Normal Calvarium and skull base: Normal IMPRESSION: No acute intracranial abnormality. Report Dictated on Authenticated by: Yeni Riddle On: 03/08/2023 07:35 Read by: YENI RIDDLE MD, MD Date: 03/08/2023 07:35 [facility] CTA Chest w/wo contraston CTA Chest w/wo contrast CT ANGIOGRAPHY CHEST: CLINICAL INDICATION: R07.9: CHEST PAIN, UNSPECIFIED. Elevated d-dimer. TECHNIQUE: Transaxial sequence from apices through the bases during dynamic intravenous infusion of 75 mL of contrast media, injected at a high flow rate. Multiplanar and 3D MIP reconstruction was performed concurrently on an independent viewing workstation. Dose reduction was employed with automated exposure control. COMPARISON: Two-view chest from 09/28/2019 FINDINGS: Lungs: No consolidation or atelectasis. No parenchymal or pleural-based mass. Exam quality: Good contrast enhancement of the vasculature. Pulmonary Arteries: No filling defects identified throughout the main pulmonary arteries along with the lobar, segmental and visualized subsegmental branches. Aorta: Normal caliber. Heart: No abnormality . Coronary Arteries: No significant coronary artery calcification. Mediastinum/Ida: No mediastinal or hilar mass. Pleural fluid: None. Upper abdomen: Diffuse hepatic steatosis. Osseous structures: No abnormality. Soft tissues chest wall/Neck base: No abnormality identified. IMPRESSION: 1. No pulmonary embolus identified. 2. Diffuse hepatic steatosis. Report Dictated on Authenticated by: Yeni Riddle On: 03/08/2023 07:45 Read by: YENI RIDDLE MD, MD Date: 03/08/2023 07:45 [facility] Comment on above: Order Comment: For P E No Panel InformationOrdered By: Oh Vaz on 10-27-2022 P [place] 59 degrees [facility] Work Phone: WA Interval 152 ms [facility] Work Phone: QRS [place] 16 degrees [facility] Work Phone: QRSD Interval 88 ms [facility] Work Phone: QT Interval 342 ms [facility] Work Phone: QTC Interval 494 ms [facility] Work Phone: T Wave [place] -27 degrees [facility] Work Phone: [facility] Work Phone: No Panel Informationon 10-27 Sinus tachycardia Borderline prolonged QT interval Electronically Signed On 10-27-2022 3:40:42 EDT by Oh Vaz Oh Brothers MD - 10/27/2022 IMPRESSION: Sinus tachycardia Borderline prolonged QT interval Electronically Signed On 10-27-2022 3:40:42 EDT by Oh Vaz [employer] Vital signsOrdered By: Oh Vaz on 10-27-2022 Heart rate 125 /min bpm [employer] Phone: CT Abdomen/Pelvis w/ Contras ton 02-18-2021 CT Abdomen/Pelvis w/ Contrast Patient Name: DHAVAL MOON Computed Tomography ACCESSION EXAM DATE/TIME PROCEDURE ORDERING PROVIDER [id number] 02/18/2021 20:[address] Abdomen/Pelvis w/ IV [id number] DEDRA ESQUIVEL Contrast (IV Onl CPT code 24314 Q9967 Reason For Exam (CT Abdomen/Pelvis w/ IV Contrast (IV Onl) RUQ abd pain Report CT ABDOMEN AND PELVIS WITH CONTRAST CLINICAL INDICATION: RUQ abd pain TECHNIQUE: CT scan of the abdomen and pelvis, with IV contrast. Multiplanar reformations. COMPARISON: None. FINDINGS: Abdomen: Visualized lung bases grossly unremarkable. No radiopaque gallstones. Liver shows diffusely decreased attenuation without focal abnormality. Spleen without significant abnormality. Pancreas without significant abnormality. Kidneys without significant abnormality. Adrenal glands without significant abnormality. Pelvis: Bowel grossly unremarkable. Appendix within normal limits. No significant, free peritoneal fluid or apparent adenopathy. Abdominal aorta is nonaneurysmal. Axial skeleton grossly intact. IMPRESSION: 1. . Findings compatible with hepatic steatosis. Computed Tomography Report 2. No other acute findings. Report Dictated on Workstation: CODY Final Dictated: 02/18/2021 8:58 pm Dictating Physician: MD MELÉNDEZ WENDELL Signed Date and Time: 02/18/2021 9:01 pm Signed by: MD MELÉNDEZ WENDELL Transcribed Date and Time: 02/18/2021 8:58 Normal [facility] Comp Metabolic Panelon 02-18 ALT [Catalytic activity/Vol] 59 U/L High 0-34 [facility] Comment on above: Result Comment: The ALT test is performed by an updated assay method. Please note that the reference intervals have been changed and are now sex specific. Performed By: #### H EMDF, CMP3, QWAL2, LIPA4 #### [facility] [address] [place] [address] Calcium [Mass/Vol] 9.7 mg/dL Normal 8.4-10.4 [facility] Comment on above: Performed By: #### H EMDF, CMP3, QWAL2, LIPA4 #### [facility] [address] [place] [address] Glucose [Mass/Vol] 107 mg/dL High 70-100 [facility] Comment on above: Performed By: #### H EMDF, CMP3, QWAL2, LIPA4 #### [facility] [address] [place] [address] Urea nitrogen [Mass/Vol] 7 mg/dL Low 9-20 [facility] Comment on above: Performed By: #### H EMDF, CMP3, QWAL2, LIPA4 #### [facility] [address] [place] [address] ALP [Catalytic activity/Vol] 81 U/L Normal 38-126 [facility] Comment on above: Result Comment: Slig htly hemolysed, interpret with caution. Performed By: #### H EMDF, CMP3, QWAL2, LIPA4 #### [facility] [address] [place], [place] Anion gap [Moles/Vol] 9 mmol/L Normal 3-13 [facility] Comment on above: Performed By: #### H EMDF, CMP3, QWAL2, LIPA4 #### [place] [address] [address], [place] AST [Catalytic activity/Vol] 67 U/L High 15-46 [facility] Comment on above: Result Comment: Slig htly hemolysed, interpret with caution. Performed By: #### H EMDF, CMP3, QWAL2, LIPA4 #### [address] [address] [place], [place] Bilirubin [Mass/Vol] 1.0 mg/dL Normal 0.2-1.3 [facility] Comment on above: Performed By: #### H EMDF, CMP3, QWAL2, LIPA4 #### [address] [address] [place], [place] CO2 [Moles/Vol] 24 mmol/L Normal 22-30 [facility] Comment on above: Performed By: #### H EMDF, CMP3, QWAL2, LIPA4 #### [address] [place], [place] Creatinine [Mass/Vol] 0.59 mg/dL Normal 0.52-1.25 [facility] Comment on above: Performed By: #### H EMDF, CMP3, QWAL2, LIPA4 #### [address] [address] [place], [place] eGFR OTHER > 90.0 Normal >60 [facility] Comment on above: Result Comment: KDIG O guidelines provide the following GFR categories: Stage GFR(ml/min/1.73 m2) Terms G1 >=90 Normal or high G2 60-89 Mildly decreased* G3a 45-59 Mildly to moderately decreased G3b 30-44 Moderately to severely decreased G4 15-29 Severely decreased G5 <15 Kidney failure *Relative to young adult level. In the absence of evidence of kidney damage, neither GFR category G1 nor G2 fulfill the criteria for CKD. The CKD-EPI equation is validated in individuals 18 years of age and older. Currently the best equation for estimating glomerular filtration rate (GFR) from serum creatinine in children is the Bedside Enamorado equation. It is less accurate in patients with extremes of muscle mass, restriction of dietary protein, ingestion of creatine, extra-renal metabolism of creatinine, or treatment with medications that affect renal tubular creatinine secretion. Performed By: #### H EMDF, CMP3, QWAL2, LIPA4 #### [address] [id number] GFR/1.73 sq M.predicted among blacks MDRD (S/P/Bld) [Vol rate/Area] mL/min/{1.73_m2} Normal >60 [facility] Comment on above: Performed By: #### H EMDF, CMP3, QWAL2, LIPA4 #### [address] [address] [place], [place] Protein [Mass/Vol] 9.1 g/dL High 6.3-8.2 [facility] Comment on above: Performed By: #### H EMDF, CMP3, QWAL2, LIPA4 #### [address] Chloride [Moles/Vol] 102 mmol/L Normal 98-107 [facility] Comment on above: Performed By: #### H EMDF, CMP3, QWAL2, LIPA4 #### [address] Potassium [Moles/Vol] 4.8 mmol/L Normal 3.5-5.1 [facility] Comment on above: Result Comment: Slig htly hemolysed, interpret with caution. Performed By: #### H EMDF, CMP3, QWAL2, LIPA4 #### [address] Sodium [Moles/Vol] 136 mmol/L Normal 135-145 [facility] Comment on above: Performed By: #### H EMDF, CMP3, QWAL2, LIPA4 #### [address] Albumin [Mass/Vol] 4.7 g/dL Normal 3.5-5.0 [facility] Comment on above: Performed By: #### H EMDF, CMP3, QWAL2, LIPA4 #### [address] [address] [place], [place] Complete Urinalysison 2021 Appearance (U) Clear Normal Clear [facility] Comment on above: Result Comment: . Performed By: #### C UA2 #### [address] [place], [place] Bilirubin,Urine Negative Normal Negative [facility] Comment on above: Result Comment: . Performed By: #### C UA2 #### [address] [place], [place] Color (U) Light-Yellow Normal Lt. Yellow [facility] Comment on above: Result Comment: . Performed By: #### C UA2 #### [address] [place], [place] Glucose Ql (U) Normal Normal Normal (<70) [facility] Comment on above: Result Comment: . Performed By: #### C UA2 #### [address] [address] [place], [place] Ketone,Urine Negative Normal Negative [facility] Comment on above: Result Comment: . Performed By: #### C UA2 #### [address] [place], [place] Leukocytes,Urine Negative Normal Negative [facility] Comment on above: Result Comment: . Performed By: #### C UA2 #### [address] [place], [place] Nitrites,Urine Negative Normal Negative [facility] Comment on above: Result Comment: . Performed By: #### C UA2 #### [address] [place], [place] Occult Blood,Urine Negative Normal Negative [facility] Comment on above: Result Comment: . Performed By: #### C UA2 #### [address] [place], [place] pH,Urine 7.0 Normal 5.0-8.0 [facility] Comment on above: Result Comment: . Performed By: #### C UA2 #### [facility] [address] [place], [place] Specific [place],Urine 1.014 Normal 1.005 - 1.030 [facility] Comment on above: Result Comment: . Performed By: #### C UA2 #### [facility] [address] [place], [place] Total Protein,Urine Negative Normal Negative [facility] Comment on above: Result Comment: . Performed By: #### C UA2 #### [facility] [address] [place], [place] Urobilinogen,Urine Normal Normal Normal (0-1) [facility] Comment on above: Result Comment: . Performed By: #### C UA2 #### [facility] [address] [place], [place] ED Provider Noteon ED Provider Note [facility] EMERGENCY DEPARTMENT ENCOUNTER Pt Name: Dhaval Moon Birthdate 2000 Date of evaluation: 02/18/2021 Provider: BRENDA Eric CNP I have evaluated this patient on my own, per my scope of practice with attending physician available for consultation Due to concern for COVID-19 in the healthcare setting I wore protective eyewear, N95 respirator and surgical mask for the entirety of the encounter. CHIEF COMPLAINT Chief Complaint Patient presents with ? Abdominal Pain RUQ pain, with diarrhea. denies fever or chills. HISTORY OF PRESENT ILLNESS (Location/Symptom, Timing/Onset,Contex t/Setting, Quality, Duration, Modifying Factors, Severity) Note limiting factors. HPI Dhaval Moon is a 20 y.o. female who presents to the emergency department with complaints of right upper quadrant abdominal discomfort. Tells me she feels like something is going underneath her skin. Also notes diarrhea. Is loose and watery with yellow color. She denies any fevers or chills. Denies any real pain. No nausea or vomiting. No changes. Nursing Notes were reviewed. REVIEW OFSYSTEMS (2+ for level 4; 10+ level 5) Review of Systems All other systems reviewed and are negative except as noted in history of present illness PAST MEDICAL HISTORY Past Medical History: Diagnosis Date ? ADHD (attention deficit hyperactivity disorder) ? Anxiety ? Asthma ? Depression SURGICAL HISTORY Past Surgical History: Procedure Laterality Date ? MYRINGOTOMY CURRENT MEDICATIONS Previous Medications ALBUTEROL (PROVENTIL) (2.5 MG/3ML) 0.083% NEBULIZER SOLUTION Take 3 mLs by nebulization every 6 hours as needed for Wheezing or Shortness of Breath ALBUTEROL SULFATE HFA 108 (90 BASE) MCG/ACT INHALER Inhale 2 puffs into the lungs every 6 hours as needed for Wheezing or Shortness of Breath FLUTICASONE (FLOVENT HFA) 110 MCG/ACT INHALER Inhale 2 puffs into the lungs 2 times daily HYDROXYZINE (ATARAX) 50 MG TABLET take 1 tablet by mouth three times a day if needed FOR ANXIETY or SLEEP SERTRALINE (ZOLOFT) 50 MG TABLET Take 1 tablet by mouth daily ALLERGIES Penicillins FAMILY HISTORY Family History Problem Relation Age of Onset ? No Known Problems Mother ? High Blood Pressure Father SOCIAL HISTORY Social History Socioeconomic History ? Marital status: Life Partner Spouse name: None ? Number of children: None ? Years of education: None ? Highest education level: None Occupational History ? None Tobacco Use ? Smoking status: Current Some Day Smoker Packs/day: 0.25 Types: Cigarettes ? Smokeless tobacco: Never Used Vaping Use ? Vaping Use: Never used Substance and Sexual Activity ? Alcohol use: Yes ? Drug use: None ? Sexual activity: None Other Topics Concern ? None Social History Narrative ? None Social Determinants of Health Financial Resource Strain: Medium Risk ? Difficulty of Paying Living Expenses: Somewhat hard Food Insecurity: No Food Insecurity ? Worried About Running Out of Food in the Last Year: Never true ? Ran Out of Food in the Last Year: Never true Transportation Needs: No Transportation Needs ? Lack of Transportation (Medical): No ? Lack of Transportation (Non-Medical): No Physical Activity: ? Days of Exercise per Week: Not on file ? Minutes of Exercise per Session: Not on file Stress: ? Feeling of Stress : Not on file Social Connections: ? Frequency of Communication with Friends and Family: Not on file ? Frequency of Social Gatherings with Friends and Family: Not on file ? Attends Christianity Services: Not on file ? Active Member of Clubs or Organizations: Not on file ? Attends Club or Organization Meetings: Not on file ? Marital Status: Not on file Intimate Partner Violence: ? Fear of Current or Ex-Partner: Not on file ? Emotionally Abused: Not on file ? Physically Abused: Not on file ? Sexually Abused: Not on file Housing Stability: ? Unable to Pay for Housing in the Last Year: Not on file ? Number of Places Lived in the Last Year: Not on file ? Unstable Housing in the Last Year: Not on file SCREENINGS PHYSICAL EXAM (up to 7 for level 4, 8 or more for level 5) ED Triage Vitals BP Temp Temp Source Pulse Resp SpO2 Height Weight 02/18/21 1520 02/18/21 1520 02/18/21 1520 02/18/21 1520 02/18/21 1520 02/18/21 1520 02/18/21 1523 02/18/21 1523 (!) 165/109 98.3 ?F (36.8 ?C) Temporal 94 16 97 % 5' 2 (1.575 m) (!) 363 lb (164.7 kg) Physical Exam Vitals and nursing note reviewed. Constitutional: General: She is not in acute distress. Appearance: She is well-developed. She is obese. She is not toxic-appearing or diaphoretic. HENT: Head: Normocephalic and atraumatic. Eyes: General: Right eye: No discharge. Left eye: No discharge. Conjunctiva/sclera: Conjunctivae normal. Cardiovascular: Rate and Rhythm: Normal rate. Pulses: Normal pulses. Heart sounds: No (more content not included)... Normal [facility] ED Provider Note Emergency Department Encounter [facility] EMERGENCY DEPT Patient: Dhaval Moon : 2000 Date of Evaluation: 02/18/2021 ED Provider: ROMI Diamond As the [id number] , I performed a medical screening history and physical exam on this patient. HISTORY OF PRESENT ILLNESS In brief, Dhaval Moon is a 20 y.o. female that presents for right upper quadrant abdominal. Patient states her symptoms have been going on for approximately 2 months. States that they have gotten worse the last 2 to 3 days and has not been able to keep food down because of this. States that she is concerned that it may be her gallbladder PHYSICAL EXAM ED Triage Vitals Enc Vitals Group BP 02/18/21 1520 (!) 165/109 Pulse 02/18/21 1520 94 Resp 02/18/21 1520 16 Temp 02/18/21 1520 98.3 ?F (36.8 ?C) Temp Source 02/18/21 1520 Temporal SpO2 02/18/21 1520 97 % Weight 02/18/21 1523 (!) 363 lb (164.7 kg) Height 02/18/21 1523 5' 2 (1.575 m) Head Circumference -- Peak Flow -- Pain Score -- Pain Loc -- Pain Edu? -- Excl. in GC? -- On brief exam, no CVA tenderness noted. Right upper quadrant abdominal tenderness noted. No wheezes no rhonchi no rales We will initiate diagnostics/treatme nts as indicated and place in main ED as soon as available. ROMI Diamond [employer] ROMI Diamond 02/18/21 1712 Normal [facility] Hemogram w/ Autodiffon 02-18 Abs Baso Cnt 0.0 10*3/uL Normal 0.0-0.2 [facility] Comment on above: Performed By: #### H EMDF, CMP3, QWAL2, LIPA4 #### [facility] [address] [place] [address] Abs Neutrophile Cnt 8.0 10*3/uL High 1.8-7.0 [facility] Comment on above: Performed By: #### H EMDF, CMP3, QWAL2, LIPA4 #### [facility] [address] [place] [address] Basophils/100 WBC (Bld) 0.3 % Normal 0.0-2.0 [facility] Comment on above: Performed By: #### H EMDF, CMP3, QWAL2, LIPA4 #### [facility] [address] [place] [address] Eosinophils (Bld) [#/Vol] 0.2 10*3/uL Normal 0.0-0.5 [facility] Comment on above: Performed By: #### H EMDF, CMP3, QWAL2, LIPA4 #### [address] [address] [place], [place] Eosinophils/100 WBC (Bld) 1.6 % Normal 1.0-6.0 [facility] Comment on above: Performed By: #### H EMDF, CMP3, QWAL2, LIPA4 #### [address] [place], [place] Erythrocyte distribution width (RBC) [Ratio] 14.2 % Normal 11.5-14.5 [facility] Comment on above: Performed By: #### H EMDF, CMP3, QWAL2, LIPA4 #### [address] [address] [place], [place] Granulocytes/100 WBC (Bld) 72.8 % Normal 40.0-80.0 [facility] Comment on above: Performed By: #### H EMDF, CMP3, QWAL2, LIPA4 #### [address] [address] [place], [place] Hematocrit (Bld) [Volume fraction] 45.9 % Normal 35.0-47.0 [facility] Comment on above: Performed By: #### H EMDF, CMP3, QWAL2, LIPA4 #### [address] [place], [place] Hemoglobin (Bld) [Mass/Vol] 14.9 g/dL Normal 11.7-16.0 [facility] Comment on above: Performed By: #### H EMDF, CMP3, QWAL2, LIPA4 #### [address] [place], [place] Lymphocytes (Bld) [#/Vol] 1.7 10*3/uL Normal 1.0-4.3 [facility] Comment on above: Performed By: #### H EMDF, CMP3, QWAL2, LIPA4 #### [address] [address] [place], [place] Lymphocytes/100 WBC (Bld) 15.7 % Low 20.0-40.0 [facility] Comment on above: Performed By: #### H EMDF, CMP3, QWAL2, LIPA4 #### [address] [place], [place] MCH (RBC) [Entitic mass] 30.0 pg Normal 26.0-34.0 [facility] Comment on above: Performed By: #### H EMDF, CMP3, QWAL2, LIPA4 #### [address] [address] [place], [place] MCHC 32.4 % Normal 32.0-36.0 [facility] Comment on above: Performed By: #### H EMDF, CMP3, QWAL2, LIPA4 #### [address] MCV (RBC) [Entitic vol] 92.6 fL Normal 79.0-98.0 [facility] Comment on above: Performed By: #### H EMDF, CMP3, QWAL2, LIPA4 #### [address] Monocytes (Bld) [#/Vol] 1.1 10*3/uL High 0.0-0.8 [facility] Comment on above: Performed By: #### H EMDF, CMP3, QWAL2, LIPA4 #### [address] Monocytes/100 WBC (Bld) 9.6 % Normal 2.0-10.0 [facility] Comment on above: Performed By: #### H EMDF, CMP3, QWAL2, LIPA4 #### [address] [address] [place], [place] Platelet mean volume (Bld) [Entitic vol] 9.4 fL Normal 7.4-10.4 [facility] Comment on above: Performed By: #### H EMDF, CMP3, QWAL2, LIPA4 #### [address] Platelets (Bld) [#/Vol] 324 10*3/uL Normal 140-440 [facility] Comment on above: Performed By: #### H EMDF, CMP3, QWAL2, LIPA4 #### [address] [place] [address] RBC (Bld) [#/Vol] 4.96 10*6/uL Normal 3.80-5.20 [facility] Comment on above: Performed By: #### H EMDF, CMP3, QWAL2, LIPA4 #### [facility] [address] [place] [address] WBC (Bld) [#/Vol] 11.0 10*3/uL High 3.6-10.7 [facility] Comment on above: Performed By: #### H EMDF, CMP3, QWAL2, LIPA4 #### [address] [place], [place] Lipaseon 02-18-2021 Lipase [Catalytic activity/Vol] 40 U/L Normal 23-300 [facility] Comment on above: Performed By: #### H EMDF, CMP3, QWAL2, LIPA4 #### [address] [address] [place], [place] US Abdomen Limitedon 022 US Abdomen Limited Patient Name: DHAVAL MOON Ultrasound ACCESSION EXAM DATE/TIME PROCEDURE ORDERING PROVIDER [id number] 02/18/2021 16:08 EST US Abdomen Limited [id number] DEDRA ESQUIVEL CPT code 31824 Reason For Exam (US Abdomen Limited) RUQ abd pain Report RIGHT UPPER QUADRANT ULTRASOUND CLINICAL INDICATION: Right upper quadrant pain Multiple sonographic images of the gallbladder and right upper quadrant of the abdomen were obtained. COMPARISON: None FINDINGS: The gallbladder is unremarkable in appearance. No gallstones, gallbladder wall thickening, or pericholecystic fluid is identified. Sonographic Jj's sign is negative. The liver is normal in size. Parenchymal echotexture is increased. No focal hepatic lesions are seen. There is no intrahepatic biliary dilatation. The common bile duct is normal, measuring 3 mm. The pancreas is largely obscured by overlying bowel gas. Survey views of the right kidney are unremarkable. There is no hydronephrosis. IMPRESSION: Increased echogenicity of the liver parenchyma, consistent with fatty infiltration. Suboptimal visualization of the pancreas due to overlying bowel gas. Report Dictated on Final Dictated: 02/18/2021 4:21 pm Dictating Physician: MD PATEL JONATHAN R Signed Date and Time: 02/18/2021 4:25 pm Signed by: MD PATEL JONATHAN R Transcribed Date and Time: 02/18/2021 4:21 Normal [facility] hCG Qual [place]regon 02-18-2021 hCG Qual Preg Negative Normal [facility] Comment on above: Result Comment: Refe rence Range: NEGATIVE Effective 04/26/2019, the reference interval for the qualitative test has been updated. This test detects hCG at concentrations of 10 mIU/L or greater in serum. Performed By: #### H EMDF, CMP3, QWAL2, LIPA4 #### [facility] [address] [place] [id number] CNOVon 01-17-2019 CNOV Office Visit ([facility]) ---- DHAVAL MOON ([id number]) 89 F Date Time Provider Department 01/17/19 5:00 PM ROSANNE PENA) [facility] During your visit today, we recorded the following information about you: Temperature Pulse Respiration Blood pressure 98.5 degrees 100/minute 16/minute 118/86 Weight 162.8 kg Rosanne Pena PA-C 01/17/2019 7:14 PM Signed Subjective HPI HPI Dhaval Moon is a 18 year old female who presents today for CC of persistent cough- productive with yellow-green mucus x 10 days. Has been coughing up blood. Feels somewhat short of breath/wheezy - moreso than her normal asthma exacerbations This feels completely different from my normal asthma flares. Pt has tried Robitussin and daytime cold prep- with minimal relief in symptoms. States that she felt achey on her L side, and also had some lightheadedness - occasionally has with her anxiety. Has been waking up short of breath several times within the past few nights- has no hx of REX to her knowledge. This has happened intermittently previously, but not typically this many days in a row. BP 118/86 Pulse 100 Temp 36.9 ?C (98.5 ?F) (Left Tympanic) Resp 16 Wt (!) 162.8 kg (359 lb) SpO2 96% ALLERGIES Allergen Reactions - Penicillins There is no problem list on file for this patient. No family history on file. Social History Tobacco Use - Smoking status: Current Every Day Smoker - Smokeless tobacco: Never Used Substance Use Topics - Alcohol use: Not on file - Drug use: Not on file Review of Systems Constitutional: Negative for chills, fever and malaise/fatigue. HENT: Negative for congestion, ear pain, sinus pain and sore throat. Respiratory: Negative for cough, sputum production, shortness of breath and wheezing. Cardiovascular: Negative for chest pain. Neurological: Negative for headaches. Objective Physical Exam Constitutional: She is oriented to person, place, and time and well-developed, well-nourished, and in no distress. Vital signs are normal. She appears not dehydrated. Non-toxic appearance. She does not have a sickly appearance. Obese HENT: Head: Normocephalic. Right Ear: Tympanic membrane, external ear and ear canal normal. No drainage. Tympanic membrane is not perforated, not erythematous, not retracted and not bulging. No middle ear effusion. Left Ear: Ear canal normal. No drainage. Tympanic membrane is not perforated, not erythematous, not retracted and not bulging. No middle ear effusion. Nose: Mucosal edema and rhinorrhea (Mucoid drainage) present. Right sinus exhibits no maxillary sinus tenderness and no frontal sinus tenderness. Left sinus exhibits no maxillary sinus tenderness and no frontal sinus tenderness. Mouth/Throat: Uvula is midline, oropharynx is clear and moist and mucous membranes are normal. No oropharyngeal exudate, posterior oropharyngeal edema, posterior oropharyngeal erythema or tonsillar abscesses. Eyes: Conjunctivae and lids are normal. Cardiovascular: Normal rate, regular rhythm, S1 normal and S2 normal. Exam reveals no friction rub. Pulmonary/Chest: Effort normal. No accessory muscle usage. No respiratory distress. She has decreased breath sounds (Mildly diminished breath sounds bilaterally). She has no wheezes. She has no rhonchi. She has no rales. Lymphadenopathy: Head (right side): No submental, no submandibular, no tonsillar, no preauricular, no posterior auricular and no occipital adenopathy present. Head (left side): No submental, no submandibular, no tonsillar, no preauricular, no posterior auricular and no occipital adenopathy present. Right cervical: No superficial cervical and no posterior cervical adenopathy present. Left cervical: No superficial cervical and no posterior cervical adenopathy present. Neurological: She is oriented to person, place, and time. ASSESSMENT/PLAN: 1. LRTI (lower respiratory tract infection) - ICD9: 519.8, ICD10: J22 (primary diagnosis) XR negative for acute process. Will start with mucinex and scheduled dosing of albuterol inhaler or nebulized albuterol treatments; Will tx for suspected viral bronchitis and INB or breathing worsens, can fill rx for prednisone (will try not to as she was just on a course about 1 month ago for flared asthma). Discussed medication indications, proper use, and potential adverse effects. All questions and concerns addressed to patient satisfaction. - XR CHEST 2V FRONTAL/LAT 2. Hemoptysis - ICD9: 786.30, ICD10: R04.2 Likely related to inflamed bronchioles- see above - XR CHEST 2V FRONTAL/LAT 3. Moderate persistent asthma with (acute) exacerbation - ICD9: 493.92, ICD10: J45.41 Moderate persistent Asthma acute excacerbation no respiratory distress - Continue current meds - Avoidance of triggers recommended; See above - PREDNISONE 20 MG TABLET - ALBUTEROL SULFATE 2.5 MG/3 ML (0.083 %) SOLUTION FOR NEBULIZATION - CONSULT TO SLEEP MEDICINE - ADULT 4. Apnea spell - ICD9: 786.03, ICD10: R06.81 Referral to sleep medicine placed d/t apnea spells, and hx of asthma- likely needs sleep study - CONSULT TO SLEEP MEDICINE - ADULT Pt advised to see PCP if symptoms persist or progress. Reviewed red flags with patient and when to seek care sooner. The patient indicates understanding of these issues and agrees with the plan. BUBBA Fang PA-C 01/17/2019 6:34 PM Signed PROTOCOL: Primary Care - Adult Triage Recommendations (URI) SYMPTOMS: Sudden onset of congestion, cough (productive or non-productive), fever, generalized body aches and joint pain. GUIDELINE: 1. Increase liquids. Double normal fluid intake (tacho john, 7-Up, tea, broth, juice, water) 2. Tylenol - two every four hours for temperature elevation greater than 100 degrees. May use Advil if tolerated. 3. Rest. Vitamin C. Coolmist humidifier. 4. If temperature elevation persisits for three days or if not able to tolerate liquids or if short of breath - call back for further directions or appointment. 5. Sudafed OTC (okay in patients with Hypertension as long as their BPs are in control). 6. Robitussin DM prn 7. Afrin Nasal Spary OTC x three days only if no hx of hypertension. Referring Provider: SELF [[id number]] Allergies As of Date: 01/17/2019 Noted Allergy Reaction PENICILLINS 11/11/2002 Date Reviewed: 01/17/2019 Reviewed by: Marge Narayanan Ma - Fully Assessed Reason for Visit: URI [115] Cmt: x 10 days Reason For Visit History Recorded Primary Visit Diagnosis:LRTI (lower respiratory tract infection) [J22] Other Visit Diagnoses:Hemoptysi s [R04.2] Moderate persistent asthma with (acute) exacerbation [J45.41] Apnea spell [R06.81] Order(s):XR CHEST 2V FRONTAL/LAT [[id number]] Order #: [id number] #:[id number] dextromethorphan-gu aiFENesin (MUCINEX DM) 30-600 mg per tabletTake 1 tablet by mouth twice daily.Disp: 30 tabletRfl: 0 predniSONE (DELTASONE) 20 mg tabletTake 2 tablets by mouth once daily for 5 days.Disp: 10 tabletRfl: 0 albuterol (PROVENTIL) 2.5 mg /3 mL (0.083 %) nebulizer solutionUse 3 mL via nebulizer every 4 hours as needed for Wheezing/Shortness of Breath.Disp: 30 VialRfl: 0 CONSULT TO SLEEP MEDICINE - ADULT [[id number]] Order #: [id number] Prescriptions as of 01/17/2019 Sig: PROAIR RESPICLICK 90 MCG/ACTU* Inhale 2 Puffs as instructed * DEXTROAMPHETAMINE-A MPHETAMINE* Take 1 capsule by mouth once * ESCITALOPRAM 10 MG TABLET Take 1 tablet by mouth once d* FLUTICASONE PROPIONATE 110 MC* Inhale 2 Puffs as instructed * DEXTROMETHORPHAN- AIFENESIN * Take 1 tablet by mouth twice * PREDNISONE 20 MG TABLET Take 2 tablets by mouth once * ALBUTEROL SULFATE 2.5 MG/3 ML* Use 3 mL via nebulizer every * MIRALAX 17 GRAM/DOSE ORAL POW* 17 grams in fluid a day Patient not taking: VERSED 2 MG/ML ORAL SYRUP 8mg po x's one now Patient not taking: LACTULOSE 10 GRAM/15 ML ORAL * 1 oz a day Patient not taking: MIRALAX 17 GRAM/DOSE ORAL POW* take one capful daily Patient not taking: Reported on 01/17/2019 Medication notes this encounter PROAIR RESPICLICK 90 MCG/ACTUATION BREATH ACTIVATED >> Marge Narayanan Ma 01/17/2019 5:06 PM >> MARGE NARAYANAN MA Jan 17, 2019 5:06 PM PRN Problem List As Of Date: 01/17/2019 (None) Other instructions from your clinician: PROTOCOL: Primary Care - Adult Triage Recommendations (URI) SYMPTOMS: Sudden onset of congestion, cough (productive or non-productive), fever, generalized body aches and joint pain. GUIDELINE: 1. Increase liquids. Double normal fluid intake (tacho john, 7-Up, tea, broth, juice, water) 2. Tylenol - two every four hours for temperature elevation greater than 100 degrees. May use Advil if tolerated. 3. Rest. Vitamin C. Coolmist humidifier. 4. If temperature elevation persisits for three days or if not able to tolerate liquids or if short of breath - call back for further directions or appointment. 5. Sudafed OTC (okay in patients with Hypertension as long as their BPs are in control). 6. Robitussin DM prn 7. Afrin Nasal Spary OTC x three days only if no hx of hypertension. Prescriptions ordered this encounter Disp Refills Start End DEXTROMETHORPHAN- AIFENESIN 30 MG-6* 30 t* 0 01/17/2019 Route: ORAL Sig: Take 1 tablet by mouth twice daily. PREDNISONE 20 MG TABLET 10 t* 0 01/17/2019 01/22/2019 Class: Print RX Route: ORAL Sig: Take 2 tablets by mouth once daily for 5 days. ALBUTEROL SULFATE 2.5 MG/3 ML (0.083* 30 V* 0 01/17/2019 Route: NEBULIZATION Sig: Use 3 mL via nebulizer every 4 hours as needed for Wheezing/Shortness of Breath. Letter Text Encounter Status:Closed by ROSANNE PENA on 01/17/19 [facility] PROGRESSon 01-17-2019 PROGRESS HNO ID: [id number] Author: Vadim Oliva (Tech) Service: ? Author Type: Molding Machine Tender Type: Progress Notes Filed: 01/17/2019 6:05 PM Note Text: Radiology Service Progress Note PATIENT NAME: Dhaval Moon DATE OF SERVICE: January 17, 2019 TIME: 5:50 PM PATIENT IDENTITY VERIFICATION COMPLETED USING TWO (2) IDENTIFIERS: Name and Date of confirmed by patient verbally. PATIENT GENDER DATA: Female. status: : No status: NO. PATIENT RELEVANT IMPLANT DATA REVIEWED: Not Applicable RADIOLOGY DEPARTMENT: General X-ray: Exam(s) Completed: Chest X-Ray PERIPHERAL IV DATA: Not applicable SIGNED BY: Vadim Oliva January 17, 2019 5:50 PM [facility] PROGRESS HNO ID: [id number] Author: Rosanne Pena (Pa) Service: ? Author Type: Physician Order Filler Type: Progress Notes Filed: 01/17/2019 7:14 PM Note Text: Subjective HPI HPI Dhaval Moon is a 18 year old female who presents today for CC of persistent cough- productive with yellow-green mucus x 10 days. Has been coughing up blood. Feels somewhat short of breath/wheezy - moreso than her normal asthma exacerbations This feels completely different from my normal asthma flares. Pt has tried Robitussin and daytime cold prep- with minimal relief in symptoms. States that she felt achey on her L side, and also had some lightheadedness - occasionally has with her anxiety. Has been waking up short of breath several times within the past few nights- has no hx of REX to her knowledge. This has happened intermittently previously, but not typically this many days in a row. BP 118/86 Pulse 100 Temp 36.9 ?C (98.5 ?F) (Left Tympanic) Resp 16 Wt (!) 162.8 kg (359 lb) SpO2 96% ALLERGIES Allergen Reactions - Penicillins There is no problem list on file for this patient. No family history on file. Social History Tobacco Use - Smoking status: Current Every Day Smoker - Smokeless tobacco: Never Used Substance Use Topics - Alcohol use: Not on file - Drug use: Not on file Review of Systems Constitutional: Negative for chills, fever and malaise/fatigue. HENT: Negative for congestion, ear pain, sinus pain and sore throat. Respiratory: Negative for cough, sputum production, shortness of breath and wheezing. Cardiovascular: Negative for chest pain. Neurological: Negative for headaches. Objective Physical Exam Constitutional: She is oriented to person, place, and time and well-developed, well-nourished, and in no distress. Vital signs are normal. She appears not dehydrated. Non-toxic appearance. She does not have a sickly appearance. Obese HENT: Head: Normocephalic. Right Ear: Tympanic membrane, external ear and ear canal normal. No drainage. Tympanic membrane is not perforated, not erythematous, not retracted and not bulging. No middle ear effusion. Left Ear: Ear canal normal. No drainage. Tympanic membrane is not perforated, not erythematous, not retracted and not bulging. No middle ear effusion. Nose: Mucosal edema and rhinorrhea (Mucoid drainage) present. Right sinus exhibits no maxillary sinus tenderness and no frontal sinus tenderness. Left sinus exhibits no maxillary sinus tenderness and no frontal sinus tenderness. Mouth/Throat: Uvula is midline, oropharynx is clear and moist and mucous membranes are normal. No oropharyngeal exudate, posterior oropharyngeal edema, posterior oropharyngeal erythema or tonsillar abscesses. Eyes: Conjunctivae and lids are normal. Cardiovascular: Normal rate, regular rhythm, S1 normal and S2 normal. Exam reveals no friction rub. Pulmonary/Chest: Effort normal. No accessory muscle usage. No respiratory distress. She has decreased breath sounds (Mildly diminished breath sounds bilaterally). She has no wheezes. She has no rhonchi. She has no rales. Lymphadenopathy: Head (right side): No submental, no submandibular, no tonsillar, no preauricular, no posterior auricular and no occipital adenopathy present. Head (left side): No submental, no submandibular, no tonsillar, no preauricular, no posterior auricular and no occipital adenopathy present. Right cervical: No superficial cervical and no posterior cervical adenopathy present. Left cervical: No superficial cervical and no posterior cervical adenopathy present. Neurological: She is oriented to person, place, and time. ASSESSMENT/PLAN: 1. LRTI (lower respiratory tract infection) - ICD9: 519.8, ICD10: J22 (primary diagnosis) XR negative for acute process. Will start with mucinex and scheduled dosing of albuterol inhaler or nebulized albuterol treatments; Will tx for suspected viral bronchitis and INB or breathing worsens, can fill rx for prednisone (will try not to as she was just on a course about 1 month ago for flared asthma). Discussed medication indications, proper use, and potential adverse effects. All questions and concerns addressed to patient satisfaction. - XR CHEST 2V FRONTAL/LAT 2. Hemoptysis - ICD9: 786.30, ICD10: R04.2 Likely related to inflamed bronchioles- see above - XR CHEST 2V FRONTAL/LAT 3. Moderate persistent asthma with (acute) exacerbation - ICD9: 493.92, ICD10: J45.41 Moderate persistent Asthma acute excacerbation no respiratory distress - Continue current meds - Avoidance of triggers recommended; See above - PREDNISONE 20 MG TABLET - ALBUTEROL SULFATE 2.5 MG/3 ML (0.083 %) SOLUTION FOR NEBULIZATION - CONSULT TO SLEEP MEDICINE - ADULT 4. Apnea spell - ICD9: 786.03, ICD10: R06.81 Referral to sleep medicine placed d/t apnea spells, and hx of asthma- likely needs sleep study - CONSULT TO SLEEP MEDICINE - ADULT Pt advised to see PCP if symptoms persist or progress. Reviewed red flags with patient and when to seek care sooner. The patient indicates understanding of these issues and agrees with the plan. Rosanne Pena PA-C [facility] XR CHEST 2V FRONTAL/LATon XR CHEST 2V FRONTAL/LAT * * *Final Repor t* * * DATE OF EXAM: Jan 17 2019 6:06PM WOX [id number] - XR CHEST 2V FRONTAL/LAT / PROCEDURE REASON: multiple diagnoses * * * * Physician Interpretation * * * * XR CHEST 2V FRONTAL/LAT Exam Date/Time: 01/17/2019 6:06 PM Clinical History: LRTI (lower respiratory tract infection) Hemoptysis M: XC2_5 Comparison: none RESULT: LINES, TUBES, AND DEVICES: None. CARDIOMEDIASTINAL SILHOUETTE: The cardiac and mediastinal silhouettes appear unremarkable. LUNGS AND PLEURA: No consolidation. No pleural effusion. No pulmonary vascular congestion. OTHER: N/A IMPRESSION: No acute cardiopulmonary process. Fusion Operator: PSCB Transcribe Date/Time: Jan 17 2019 6:17P Dictated by : REGINE BRANTLEY MD This examination was interpreted and the report reviewed and electronically signed by: REGINE BRANTLEY MD on Jan 17 2019 6:19PM EST [id number] [facility] Vital Signs Date Time Vital Sign Value Performing Clinician Kayi carlita 09-02-2023 08:34-0400 Diastolic blood pressure 70 mm[Hg] Billie [employer] DO Work Phone: [facility] 09-02-2023 08:34-0400 Heart rate 95 /min Vestorly DO Work Phone: [facility] 09-02-2023 08:34-0400 Respiratory rate 18 /min Billie [employer] DO Work Phone: [facility] 09-02-2023 08:34-0400 SaO2% (BldA) [Mass fraction] 97 % Vestorly DO Work Phone: [facility] 09-02-2023 08:34-0400 Systolic blood pressure 107 mm[Hg] Billie [employer] DO Work Phone: [facility] 09-02-2023 02:07-0400 Body temperature 98.49 [degF] Billie [employer] DO Work Phone: [facility] 08-18-2023 09:55-0400 Diastolic Blood Pressure Non-Invasive 86 mm[Hg] DR REGINE CONRAD MD [facility] 08-18-2023 09:55-0400 Heart rate 98 /min DR REGINE CONRAD MD [facility] 08-18-2023 09:55-0400 Respiratory rate 18 /min DR REGINE CONRAD MD [facility] 08-18-2023 09:55-0400 Systolic Blood Pressure Non-Invasive 137 mm[Hg] DR REGINE CONRAD MD [facility] 08-18-2023 06:05-0400 Diastolic Blood Pressure Non-Invasive 77 mm[Hg] DR REGINE CONRAD MD [facility] 08-18-2023 06:05-0400 Heart rate 98 /min DR REGINE CONRAD MD [facility] 08-18-2023 06:05-0400 Respiratory rate 18 /min DR REGINE CONRAD MD [facility] 08-18-2023 06:05-0400 Systolic Blood Pressure Non-Invasive 129 mm[Hg] DR REGINE CONRAD MD [facility] 08-17-2023 23:01-0400 Heart rate 98 /min DR REGINE CONRAD MD [facility] 08-17-2023 23:01-0400 Respiratory rate 18 /min DR REGINE CONRAD MD [facility] 08-17-2023 20:02-0400 Body height [address] REGINE CONRAD MD [facility] 08-17-2023 20:02-0400 Body temperature 98.78 [degF] DR REGINE CONRAD MD [facility] 08-17-2023 20:02-0400 Body weight 111.[address] REGINE CONRAD MD [facility] 08-17-2023 20:02-0400 Diastolic Blood Pressure Non-Invasive 87 mm[Hg] DR REGINE CONRAD MD [facility] 08-17-2023 20:02-0400 Systolic Blood Pressure Non-Invasive 142 mm[Hg] DR REGINE CONRAD MD [facility] 06-28-2023 10:35-0400 Diastolic blood pressure 90 mm[Hg] Anthony Booth MD Work Phone: [facility] 06-28-2023 10:35-0400 Heart rate 105 /min Anthony Booth MD Work Phone: [facility] 06-28-2023 10:35-0400 Systolic blood pressure 136 mm[Hg] Anthony Booth MD Work Phone: [facility] 06-28-2023 09:49-0400 Body height 157.5 cm Antohny Booth MD Work Phone: [facility] 06-28-2023 09:49-0400 Body mass index (BMI) [Ratio] 47.55 kg/m2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 MYRINGOTOMY (HISTORICAL) CURRENT MEDICATIONS Previous Medications ALBUTEROL (2.5 MG/3ML) 0.083% NEBULIZER SOLUTION Take 3 mL (2.5 mg) by nebulization every 6 hours as needed for wheezing. ALBUTEROL 108 (90 BASE) MCG/ACT INHALER Inhale 2 puffs every 6 hours as needed for wheezing. CYANOCOBALAMIN (VITAMIN B-12) 500 MCG TABLET Take 2 tablets (1,000 mcg) by mouth daily. FOLIC ACID (FOLVITE) 1 MG TABLET Take 1 tablet (1 mg) by mouth daily. LOSARTAN (COZAAR) 50 MG TABLET Take 1 tablet (50 mg) by mouth daily. METOPROLOL SUCCINATE XL (TOPROL-XL) 25 MG 24 HR TABLET Take 1 tablet (25 mg) by mouth 2 times daily. Do not crush or chew. POTASSIUM BICARBONATE (K-LYTE) 25 MEQ EFFERVESCENT TABLET Take 25 mEq by mouth in the morning and 25 mEq in the evening. PREGABALIN (LYRICA) 100 MG CAPSULE Take 1 capsule (100 mg) by mouth 3 times daily. SERTRALINE (ZOLOFT) 100 MG TABLET Take 1 tablet (100 mg) by mouth daily. THIAMINE (VITAMIN B-1) 100 MG TABLET Take 1 tablet (100 mg) by mouth daily. ALLERGIES Penicillins FAMILY HISTORY Family History Problem Relation Name Age of Onset High Blood Pressure Father No Known Problems Mother SOCIAL HISTORY Social History Socioeconomic History Marital status: Life Partner Tobacco Use Smoking status: Every Day Current packs/day: 0.25 Average packs/day: 0.3 packs/day for 0.4 years (0.1 ttl pk-yrs) Types: Cigarettes Start date: 04/17/2023 Smokeless tobacco: Never Vaping Use Vaping status: Never Used Substance and Sexual Activity Alcohol use: Yes Alcohol/week: 2.0 standard drinks of alcohol Types: 2 Cans of beer per week Drug use: Yes Types: Marijuana Sexual activity: Yes Partners: Male Social Determinants of Health Financial Resource Strain: Medium Risk (05/22/2020) [facility] Overall Financial Resource Strain (CARDIA) Difficulty of Paying Living Expenses: Somewhat hard Food Insecurity: Food Insecurity Present (06/09/2023) Received from [facility] Hunger Vital Sign Worried About Running Out of Food in the Last Year: Sometimes true Ran Out of Food in the Last Year: Sometimes true Transportation Needs: No Transportation Needs (06/09/2023) Received from [facility] PRAPARE - Transportation Lack of Transportation (Medical): No Lack of Transportation (Non-Medical): No Physical Activity: Inactive (01/23/2019) Received from [facility] Exercise Vital Sign Days of Exercise per Week: 0 days Minutes of Exercise per Session: 0 min Housing Stability: Unknown (06/09/2023) Received from [facility] Housing Stability Vital Sign Unable to Pay for Housing in the Last Year: No In the last 12 months, was there a time when you did not have a steady place to sleep or slept in a halfway (including now)?: No SCREENINGS PHYSICAL EXAM ED Triage Vitals Temp Pulse Resp BP -- -- -- -- SpO2 Temp src Heart Rate Source Patient Position -- -- -- -- BP Location FiO2 (%) -- -- Physical Exam Vitals and nursing note reviewed. Constitutional: Appearance: Normal appearance. HENT: Head: Normocephalic and atraumatic. Cardiovascular: Rate and Rhythm: Normal rate. Pulmonary: Effort: Pulmonary effort is normal. Skin: General: Skin is warm and dry. Neurological: Mental Status: She is alert. Psychiatric: Thought Content: Thought content is paranoid. Thought content does not include suicidal ideation. DIAGNOSTIC RESULTS Procedures/EKG: RADIOLOGY (Per Emergency Physician): Interpretation per the Radiologist below, if available at the time of this note: No orders to display ED BEDSIDE ULTRASOUND: Performed by ED Physician - none LABS: Labs Reviewed COMPREHENSIVE METABOLIC PANEL - Abnormal Result Value SODIUM 138 POTASSIUM 3.0 (*) CHLORIDE 104 CARBON DIOXIDE 25 ANION GAP 10 UREA NITROGEN 10 CREATININE 0.52 GLUCOSE 88 CALCIUM 9.3 AST (SGOT) 34 ALT 26 ALKALINE PHOSPHATASE 97 ALBUMIN 4.0 BILIRUBIN, TOTAL 1.7 (*) TOTAL PROTEIN 7.7 eGFR >90.0 SARS-COV-2 ANTIGEN - Normal SARS-CoV-2 Antigen Negative CBC WITH AUTO DIFFERENTIAL - Normal Auto WBC 7.0 RBC 4.83 Hemoglobin 15.4 Hematocrit 45.1 MCV 93.4 MCH 31.9 MCHC 34.1 RDW 14.2 Platelets 369 MPV 10.7 nRBC 0.0 Neutrophils Relative 55.7 Lymphocytes Relative 33.0 Monocytes Relative 9.2 Eosinophils Relative 1.4 Basophils Relative 0.4 Immature Grans % 0.3 Neutrophils Absolute 3.9 Lymphocytes Absolute 2.3 Monocytes Absolute 0.6 Eosinophils Absolute 0.1 Basophils Absolute 0.0 Immature Grans Absolute 0.0 ETHANOL - Normal ETHANOL IN SER/PLAS <0.010 Narrative: NOTE: This result is for medical treatment only. Analysis performed using non-forensic procedures. CK - Normal CK 63 DRUGS OF ABUSE AMPHETAMINE SCREEN Positive BARBITURATES SCREEN Negative BENZODIAZEPINE SCREEN Negative COCAINE METAB. SCREEN Negative METHADONE SCREEN Negative OPIATES SCREEN Negative OXYCODONE SCREEN Negative PHENCYCLIDINE SCREEN Negative Narrative: The expected value for all of the drugs listed above is Negative. The following drugs or drug groups have been screened for by Immunoassay at the following thresholds: Amphetamine class (1000 ng/mL) Barbiturates (200 ng/mL) Benzodiazepines (200 ng/mL) Cocaine (300 ng/mL) Methadone (300 ng/mL) Opiates (300 ng/mL) Oxycodone (100 ng/mL) PCP (25 ng/mL) NOTE: These results are for medical treatment only. Analysis performed using non-forensic procedures. POSITIVE results are NOT confirmed by a more specific alternative method unless requested. If confirmation is needed, request confirmation under separate order. HCG QUANTITATIVE BLOOD HCG QUANTITATIVE <2 Narrative: Values in should double every 2 to 3 days for the first 6 weeks. Elevated concentrations of human chorionic gonadotropin (hCG) measured in the first trimester of are observed in normal , but may serve as an indication of chorionic carcinoma, hydatiform mole, or multiple . Decreasing hCG concentrations indicate threatened or missed , recent termination of , ectopic , gestosis or intrauterine . Michell- and postmenopausal females may have detectable hCG concentrations (< or = to 14 mIU/mL) due to pituitary production of hCG. Serum follicle-stimulating hormone measurement may aid in ruling-out in this population. Cutoffs of greater than 20 to 45 mIU/mL have been suggested and are method dependent. False-elevations (called phantom human chorionic gonadotropin: hCG) may occur with patients who have human antianimal or heterophilic antibodies. Some specimens may not dilute linearly due to abnormal forms of hCG. Elevated hCG concentrations not associated with are found in patients with other diseases such as tumors of the germ cells, ovaries, bladder, pancreas, stomach, lungs, and liver. This test is not intended to detect or monitor tumors or gestational trophoblastic disease. COMPLETE URINALYSIS All other labs were within normal range or not returned as of this dictation. EMERGENCY DEPARTMENT COURSE and DIFFERENTIAL DIAGNOSIS/MDM: Vitals: Vitals: 09/02/23 0207 BP: (!) 133/98 Pulse: (!) 113 Resp: 20 Temp: 36.9 C (98.5 F) SpO2: 98% ED Course as of 09/02/23 0543 Sat Sep 02, 2023 021 22-year-old female presents emergency department today with paranoia that she is being followed by people from [place] and that she feels not safe here or other hospitals. Denies any suicidal ideations. Denies any recent drug use but states that 2 weeks ago she was in a methamphetamine induced psychosis stating that someone slipped methamphetamines into her marijuana. On exam very paranoid and states this is affecting her life. She states she does not think she can go on like this. Will give her her home dose of Vistaril and obtain psychiatric screening labs will complete pink slip as patient needs further evaluation by psychiatry. [BM] 0419 CBC unremarkable, COVID-negative. [BM] 0429 Alcohol undetectable, CK, within normal meds. CMP only showing a mild hypokalemia of 3 as well as slightly elevated bilirubin of 1.7. Given oral replacement for potassium. [BM] 0452 test negative. [BM] 0525 Urine drug screen positive for amphetamines. [BM] 0542 Patient is medically cleared for admission to [facility]. [BM] ED Course User Index [BM] Billie Spears DO Diagnoses as of 09/02/23 0543 Paranoia (psychosis) (HCC) Hypokalemia Methamphetamine-induced psychotic disorder (HCC) Medications LORazepam (Ativan) injection 2 mg (has no administration in time range) haloperidol lactate (Haldol) injection 5 mg (has no administration in time range) potassium chloride CR (Klor-Con M10) ER tablet 40 mEq (40 mEq Oral Given 09/02/23 0510) REVAL: CRITICAL CARE TIME FINAL IMPRESSION 1. Paranoia (psychosis) (HCC) 2. Hypokalemia 3. Methamphetamine-induced psychotic disorder (HCC) DISPOSITION PATIENT REFERRED TO: No follow-up provider specified. DISCHARGE MEDICATIONS: New Prescriptions No medications on file (Comment: Please note this report has been produced using speech recognition software and may contain errors related to that system including errors in grammar, punctuation, and spelling, as well as words and phrases that may be inappropriate. If there are any questions or concerns please feel free to contact the dictating provider for clarification.) Billie Spears DO (electronically signed) Emergency Medicine Provider Billie Spears DO 09/02/23 0543 Emergency Department Encounter Location: [facility] ED Patient: Dhaval Moon : 2000 Date of evaluation: 09/02/2023 ED Provider: Glenn Guerrero MD Time received sign-out: 0700 Dhaval Moon was checked out to me by Dr. Chan. Please see his/her initial documentation for details of the patient's initial ED presentation, physical exam and completed studies. In brief, Dhaval Moon is a 22 y.o. adult that presented to the emergency department for evaluation of anxiety, paranoia. Patient states she has been slipped methamphetamines recently causing psychosis. Patient was reexamined approximately 9 AM after waking from sleeping. She is awake and fully alert and answering questions appropriately. She is not suicidal or homicidal. She states her anxiety is resolved. States she was concerned that people were after her but she feels safe going home. She appears to have clear sensorium at this time. I have reviewed and interpreted all of the currently available lab results and diagnostics from this visit: Results for orders placed or performed during the hospital encounter of 09/02/23 SARS-CoV-2 Antigen Specimen: Nasal; Swab Result Value Ref Range SARS-CoV-2 Antigen Negative Negative CBC auto differential Result Value Ref Range Auto WBC 7.0 3.6 - 10.7 10*3/uL RBC 4.83 3.80 - 5.20 10*6/uL Hemoglobin 15.4 11.7 - 16.0 g/dL Hematocrit 45.1 35.0 - 47.0 % MCV 93.4 77.0 - 99.0 fL MCH 31.9 26.0 - 34.0 pg MCHC 34.1 30.5 - 36.0 % RDW 14.2 11.5 - 15.0 % Platelets 369 140 - 440 10*3/uL MPV 10.7 9.0 - 12.7 fL nRBC 0.0 0.0 - 2.0 /100 WBCs Neutrophils Relative 55.7 38.0 - 82.0 % Lymphocytes Relative 33.0 15.0 - 45.0 % Monocytes Relative 9.2 5.0 - 13.0 % Eosinophils Relative 1.4 0.0 - 6.0 % Basophils Relative 0.4 0.0 - 2.0 % Immature Grans % 0.3 0.0 - 2.0 % Neutrophils Absolute 3.9 1.8 - 7.5 10*3/uL Lymphocytes Absolute 2.3 1.0 - 4.3 10*3/uL Monocytes Absolute 0.6 0.0 - 0.9 10*3/uL Eosinophils Absolute 0.1 0.0 - 0.5 10*3/uL Basophils Absolute 0.0 0.0 - 0.2 10*3/uL Immature Grans Absolute 0.0 <0.1 10*3/uL Comprehensive metabolic panel Result Value Ref Range SODIUM 138 135 - 145 mmol/L POTASSIUM 3.0 (L) 3.5 - 5.1 mmol/L CHLORIDE 104 98 - 107 mmol/L CARBON DIOXIDE 25 22 - 30 mmol/L ANION GAP 10 3 - 13 mmol/L UREA NITROGEN 10 7 - 17 mg/dL CREATININE 0.52 0.52 - 1.04 mg/dL GLUCOSE 88 70 - 100 mg/dL CALCIUM 9.3 8.4 - 10.4 mg/dL AST (SGOT) 34 15 - 46 U/L ALT 26 0 - 34 U/L ALKALINE PHOSPHATASE 97 38 - 126 U/L ALBUMIN 4.0 3.5 - 5.0 g/dL BILIRUBIN, TOTAL 1.7 (H) 0.2 - 1.3 mg/dL TOTAL PROTEIN 7.7 6.3 - 8.2 g/dL eGFR >90.0 >60.0 mL/min/1.73m*2 Drug screen panel, emergency Result Value Ref Range AMPHETAMINE SCREEN Positive BARBITURATES SCREEN Negative BENZODIAZEPINE SCREEN Negative COCAINE METAB. SCREEN Negative METHADONE SCREEN Negative OPIATES SCREEN Negative OXYCODONE SCREEN Negative PHENCYCLIDINE SCREEN Negative Ethanol Result Value Ref Range ETHANOL IN SER/PLAS <0.010 0.000 - 0.010 g/dL CPK Result Value Ref Range CK 63 30 - 170 U/L hCG, quantitative, Result Value Ref Range HCG QUANTITATIVE <2 Females <=5 mIU/mL Urinalysis with reflex microscopic Result Value Ref Range Color, Urine Light Yellow Lt. Yellow Clarity, Urine Turbid (A) Clear pH, Urine 5.5 5.0 - 8.0 pH Leukocytes, Urine 25 (A) Negative Lolita/uL Nitrite, Urine Negative Negative Protein, Urine Negative Negative mg/dL Glucose, Urine Normal Normal (<70) mg/dL Bilirubin, Urine Negative Negative mg/dL Ketones, Urine Negative Negative mg/dL Urobilinogen, Urine Normal Normal (0-1) mg/dL Blood, Urine Negative Negative mg/dL Volume, Urine 12 mL RBC, Urine 0-2 0 - 2 /HPF WBC, Urine 3-5 0 - 5 /HPF Squamous Epithelial, Urine 6-10 (A) 3 - 5 /HPF Bacteria, Urine Few (A) Negative /HPF Mucus, Urine Negative Negative /LPF SPECIFIC GRAVITY OF URINE (NUMERIC) 1.005 1.005 - 1.030 No orders to display Final ED Course and MDM: In brief, Dhaval Moon is a 22 y.o. whose care was signed out to me by the outgoing provider. 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 She is not suicidal homicidal and understands her situation and surroundings. I do feel she can go home and follow-up as an outpatient. Medications LORazepam (Ativan) injection 2 mg (has no administration in time range) haloperidol lactate (Haldol) injection 5 mg (has no administration in time range) potassium chloride CR (Klor-Con M10) ER tablet 40 mEq (40 mEq Oral Given 09/02/23 0510) I Glenn Guerrero MD am the associate music professor of record. Final Impression 1. Paranoia (psychosis) (HCC) 2. Hypokalemia 3. Methamphetamine-induced psychotic disorder (HCC) DISPOSITION (Please note that portions of this note may have been completed with a voice recognition program. Efforts were made to edit the dictations but occasionally words are mis-transcribed.) Glenn Guerrero MD [employer] Glenn Guerrero MD 09/02/23 09 Pt presents to the ED w c/o anxiety. Per pt, pt has been having anxiety all day. Pt denies suicidal thoughts. Pt feels safe at home Pt initially uncooperative initially. Pt refusing to change in a gown or have labs drawn. Pt finally will allow this nurse to draw labs. Pts personal belongings removed from pt and pt put on a gown. Pt wanded by officer robert. Pt refuses anxiety meds ordered Referral made to [facility] for transfer, ashley Gao. Facility will call back documented in this encounter [facility] 09-02-2023 Hospital Discharg e instructions Glenn Guerrero MD - 09/02/2023 9:02 AM EDT Images from the original note were not included. You have been evaluated in the Emergency Department today for a behavioral health problem. This evaluation did not result in a recommendation for hospitalization, but your symptoms may guide changer time, which is why it is important to follow-up. I recommend you contact the following mental health provider(s) to schedule an appointment as soon as possible: [] [facility]; [facility] (Psychiatry, Counseling,Addiction Services); [address], [address], [place] [address]; [] [facility]; (Psychiatry, Counseling, Addiction Services); [address], [address], [facility] [address]; [] [facility]; (Psychiatry, Counseling); [address] [place] [address]; [] [facility]; (Psychiatry, Counseling); [address], [address], [place] [address]; [] [facility]; (Psychiatry, Counseling); [address] [place] [address]; [] [facility]; (Psychiatry, Counseling); [address], [address], [place] [address]; [] [facility]; (Psychiatry, Counseling); [address], [address], [place] [address]; [] [facility] (Counseling, Group); [address] [place] [address]; [] [facility] (Psychiatry, Counseling, Case Management); [address], [address], [place] [address]; ; for initial assessments you may call or walk-in on Mondays and Tuesdays at 8:00 AM [] [facility] (Psychiatry, Counseling, Case Management); [address] [place] [address]; ; for initial assessments you may call or walk-in on at noon [] [facility] (Psychiatry, Counseling, Case Management); [address] [place] [address]; [] [facility] (Counseling, Group - has evening hours); [address] [place] [address]; [x] [facility] (Psychiatry, Counseling, Case Management, Addiction Services); [address] [place] [address]; [x] [facility] (Psychiatry, Counseling, Case Management, Addiction Services); [address], [place] [address]; [] [facility] (Psychiatry, Counseling, Case Management, Addiction Services); [address], [address], [place] [address]; [] [facility] (Counseling); [address] [place] [address]; [] [facility] (Psychiatry, Counseling, Case Management - has evening and weekend hours); [address] [place] [address]; If you or someone you know is struggling or in crisis, help is available. Call or text 198 or chat [email or web address]. -OR- Call the [facility] Crisis Hotline at 732-551-8808 -OR- Visit [facility] Services, in person, at [address] [place] [address]; You should return to the Emergency Department or call 911 immediately if your symptoms worsen, new symptoms develop, or if you can no longer keep yourself or others safe. The following attachments cannot be sent through Care Everywhere.Drug Abuse and Drug Addiction Discharge Instructions (Lithuanian)Hypokalemia Discharge Instructions (Lithuanian)documented in this encounter [facility] 09-02-2023 Emergency department Note RN contacted [facility], cancelled referral due to patient being discharged. Adelita Perry RN 09/02/[address] [facility] 09-02-2023 Note RN contacted [facility], ca ncelled referral due to patient being discharged. Adelita Perry RN 09/02/23 0901 [facility] 09-02-2023 Emergency department Note Patient to be discharged, patient provided with her cell phone to get a ride home. Adelita Perry RN 09/02/[address] [facility] 09-02-2023 Emergency department Note Patient awake and alert. Patient provided with snacks and orange juice. Patient requesting to call mother, RN provided patient with phone. Patient states that she does not understanding why she is being admitted, she states Im not suicidal, I'm not homicidal. I came in last night for anxiety. 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 RN asked patient is she could explain again why she came in, Patient states that she came in last night because she was anxious and there was a man that made her feel uncomfortable when she was walking around. Patient asked to speak with physician regarding plan of care because she does not understand why she is being admitted. RN spoke to , per physician, patient is able to be discharged if she has sobered up, if she has a ride, and if she is not suicidal or homicidal. RN reviewed the above discussion with patient with including direct quotes from the patient. Patient currently on the phone with her mother, then RN will update her on plan of care. Adelita Perry RN 09/02/[address] [facility] 09-02-2023 Note NOTE: This result is for medical treatment only. Analysis performed using non-forensic procedures. [facility] 09-02-2023 Emergency department Triage note Pt presents to the ED w c/o anxiety. Per pt, pt has been having anxiety all day. Pt denies suicidal thoughts. Pt feels safe at home [facility] 09-02-2023 Emergency department Triage note Pt initially uncooperative initially. Pt refusing to change in a gown or have labs drawn. Pt finally will allow this nurse to draw labs. Pts personal belongings removed from pt and pt put on a gown. Pt wanded by officer robert. Pt refuses anxiety meds ordered [facility] 09-02-2023 Emergency department Triage note Referral made to [facility] for transfer, spoke rosie Gao. Facility will call back [facility] 09-02-2023 Note Referral made to [facility] for transfer, spoke rosie Gao. Facility will call back [facility] 09-02-2023 Physician Emergency department Note EMERGENCY DEPARTMENT ENCOUNTER Pt Name: Dhaval Moon Birthdate 2000 Date of evaluation: 09/02/2023 ED Provider: Billie Spears DO CHIEF COMPLAINT Chief Complaint Patient presents with Anxiety HISTORY OF PRESENT ILLNESS (Location/Symptom, Timing/Onset, Context/Setting, Quality, Duration, Modifying Factors, Severity) Note limiting factors. I wore appropriate PPE for the entirety of this encounter. 22-year-old female presents emergency department today with paranoia that she is being followed by people from [place] and that she feels not safe here or other hospitals. Denies any suicidal ideations. Denies any recent drug use but states that 2 weeks ago she was in a methamphetamine induced psychosis stating that someone slipped methamphetamines into her marijuana. Nursing Notes were reviewed. Limitations to history: None Outside historians: None REVIEW OF SYSTEMS Review of Systems Psychiatric/Behavioral: Negative for suicidal ideas. The patient is nervous/anxious. Pertinent positives and negatives as per HPI. PAST MEDICAL HISTORY Past Medical History: Diagnosis Date ADHD (attention deficit hyperactivity disorder) Anxiety Asthma Bipolar disorder (HCC) Depression SURGICAL HISTORY Past Surgical History: Procedure Laterality Date MYRINGOTOMY (HISTORICAL) CURRENT MEDICATIONS Previous Medications ALBUTEROL (2.5 MG/3ML) 0.083% NEBULIZER SOLUTION Take 3 mL (2.5 mg) by nebulization every 6 hours as needed for wheezing. ALBUTEROL 108 (90 BASE) MCG/ACT INHALER Inhale 2 puffs every 6 hours as needed for wheezing. CYANOCOBALAMIN (VITAMIN B-12) 500 MCG TABLET Take 2 tablets (1,000 mcg) by mouth daily. FOLIC ACID (FOLVITE) 1 MG TABLET Take 1 tablet (1 mg) by mouth daily. LOSARTAN (COZAAR) 50 MG TABLET Take 1 tablet (50 mg) by mouth daily. METOPROLOL SUCCINATE XL (TOPROL-XL) 25 MG 24 HR TABLET Take 1 tablet (25 mg) by mouth 2 times daily. Do not crush or chew. POTASSIUM BICARBONATE (K-LYTE) 25 MEQ EFFERVESCENT TABLET Take 25 mEq by mouth in the morning and 25 mEq in the evening. PREGABALIN (LYRICA) 100 MG CAPSULE Take 1 capsule (100 mg) by mouth 3 times daily. SERTRALINE (ZOLOFT) 100 MG TABLET Take 1 tablet (100 mg) by mouth daily. THIAMINE (VITAMIN B-1) 100 MG TABLET Take 1 tablet (100 mg) by mouth daily. ALLERGIES Penicillins FAMILY HISTORY Family History Problem Relation Name Age of Onset High Blood Pressure Father No Known Problems Mother SOCIAL HISTORY Social History Socioeconomic History Marital status: Life Partner Tobacco Use Smoking status: Every Day Current packs/day: 0.25 Average packs/day: 0.3 packs/day for 0.4 years (0.1 ttl pk-yrs) Types: Cigarettes Start date: 04/17/2023 Smokeless tobacco: Never Vaping Use Vaping status: Never Used Substance and Sexual Activity Alcohol use: Yes Alcohol/week: 2.0 standard drinks of alcohol Types: 2 Cans of beer per week Drug use: Yes Types: Marijuana Sexual activity: Yes Partners: Male Social Determinants of Health Financial Resource Strain: Medium Risk (05/22/2020) Received from [facility] Overall Financial Resource Strain (CARDIA) Difficulty of Paying Living Expenses: Somewhat hard Food Insecurity: Food Insecurity Present (06/09/2023) Received from [facility] Hunger Vital Sign Worried About Running Out of Food in the Last Year: Sometimes true Ran Out of Food in the Last Year: Sometimes true Transportation Needs: No Transportation Needs (06/09/2023) Received from [facility] PRAPARE - Transportation Lack of Transportation (Medical): No Lack of Transportation (Non-Medical): No Physical Activity: Inactive (01/23/2019) Received from [facility] Exercise Vital Sign Days of Exercise per Week: 0 days Minutes of Exercise per Session: 0 min Housing Stability: Unknown (06/09/2023) Received from [facility] Housing Stability Vital Sign Unable to Pay for Housing in the Last Year: No In the last 12 months, was there a time when you did not have a steady place to sleep or slept in a halfway (including now)?: No SCREENINGS PHYSICAL EXAM ED Triage Vitals Temp Pulse Resp BP -- -- -- -- SpO2 Temp src Heart Rate Source Patient Position -- -- -- -- BP Location FiO2 (%) -- -- Physical Exam Vitals and nursing note reviewed. Constitutional: Appearance: Normal appearance. HENT: Head: Normocephalic and atraumatic. Cardiovascular: Rate and Rhythm: Normal rate. Pulmonary: Effort: Pulmonary effort is normal. Skin: General: Skin is warm and dry. Neurological: Mental Status: She is alert. Psychiatric: Thought Content: Thought content is paranoid. Thought content does not include suicidal ideation. DIAGNOSTIC RESULTS Procedures/EKG: RADIOLOGY (Per Emergency Physician): Interpretation per the Radiologist below, if available at the time of this note: No orders to display ED BEDSIDE ULTRASOUND: Performed by ED Physician - none LABS: Labs Reviewed COMPREHENSIVE METABOLIC PANEL - Abnormal Result Value SODIUM 138 POTASSIUM 3.0 (*) CHLORIDE 104 CARBON DIOXIDE 25 ANION GAP 10 UREA NITROGEN 10 CREATININE 0.52 GLUCOSE 88 CALCIUM 9.3 AST (SGOT) 34 ALT 26 ALKALINE PHOSPHATASE 97 ALBUMIN 4.0 BILIRUBIN, TOTAL 1.7 (*) TOTAL PROTEIN 7.7 eGFR >90.0 SARS-COV-2 ANTIGEN - Normal SARS-CoV-2 Antigen Negative CBC WITH AUTO DIFFERENTIAL - Normal Auto WBC 7.0 RBC 4.83 Hemoglobin 15.4 Hematocrit 45.1 MCV 93.4 MCH 31.9 MCHC 34.1 RDW 14.2 Platelets 369 MPV 10.7 nRBC 0.0 Neutrophils Relative 55.7 Lymphocytes Relative 33.0 Monocytes Relative 9.2 Eosinophils Relative 1.4 Basophils Relative 0.4 Immature Grans % 0.3 Neutrophils Absolute 3.9 Lymphocytes Absolute 2.3 Monocytes Absolute 0.6 Eosinophils Absolute 0.1 Basophils Absolute 0.0 Immature Grans Absolute 0.0 ETHANOL - Normal ETHANOL IN SER/PLAS <0.010 Narrative: NOTE: This result is for medical treatment only. Analysis performed using non-forensic procedures. CK - Normal CK 63 DRUGS OF ABUSE AMPHETAMINE SCREEN Positive BARBITURATES SCREEN Negative BENZODIAZEPINE SCREEN Negative COCAINE METAB. SCREEN Negative METHADONE SCREEN Negative OPIATES SCREEN Negative OXYCODONE SCREEN Negative PHENCYCLIDINE SCREEN Negative Narrative: The expected value for all of the drugs listed above is Negative. The following drugs or drug groups have been screened for by Immunoassay at the following thresholds: Amphetamine class (1000 ng/mL) Barbiturates (200 ng/mL) Benzodiazepines (200 ng/mL) Cocaine (300 ng/mL) Methadone (300 ng/mL) Opiates (300 ng/mL) Oxycodone (100 ng/mL) PCP (25 ng/mL) NOTE: These results are for medical treatment only. Analysis performed using non-forensic procedures. POSITIVE results are NOT confirmed by a more specific alternative method unless requested. If confirmation is needed, request confirmation under separate order. HCG QUANTITATIVE BLOOD HCG QUANTITATIVE <2 Narrative: Values in should double every 2 to 3 days for the first 6 weeks. Elevated concentrations of human chorionic gonadotropin (hCG) measured in the first trimester of are observed in normal , but may serve as an indication of chorionic carcinoma, hydatiform mole, or multiple . Decreasing hCG concentrations indicate threatened or missed , recent termination of , ectopic , gestosis or intrauterine . Michell- and postmenopausal females may have detectable hCG concentrations (< or = to 14 mIU/mL) due to pituitary production of hCG. Serum follicle-stimulating hormone measurement may aid in ruling-out in this population. Cutoffs of greater than 20 to 45 mIU/mL have been suggested and are method dependent. False-elevations (called phantom human chorionic gonadotropin: hCG) may occur with patients who have human antianimal or heterophilic antibodies. Some specimens may not dilute linearly due to abnormal forms of hCG. Elevated hCG concentrations not associated with are found in patients with other diseases such as tumors of the germ cells, ovaries, bladder, pancreas, stomach, lungs, and liver. This test is not intended to detect or monitor tumors or gestational trophoblastic disease. COMPLETE URINALYSIS All other labs were within normal range or not returned as of this dictation. EMERGENCY DEPARTMENT COURSE and DIFFERENTIAL DIAGNOSIS/MDM: Vitals: Vitals: 09/02/23 0207 BP: (!) 133/98 Pulse: (!) 113 Resp: 20 Temp: 36.9 C (98.5 F) SpO2: 98% ED Course as of 09/02/23 0543 Sat Sep 02, [id number] 22-year-old female presents emergency department today with paranoia that she is being followed by people from [place] and that she feels not safe here or other hospitals. Denies any suicidal ideations. Denies any recent drug use but states that 2 weeks ago she was in a methamphetamine induced psychosis stating that someone slipped methamphetamines into her marijuana. On exam very paranoid and states this is affecting her life. She states she does not think she can go on like this. Will give her her home dose of Vistaril and obtain psychiatric screening labs will complete pink slip as patient needs further evaluation by psychiatry. [BM] 0419 CBC unremarkable, COVID-negative. [BM] 0429 Alcohol undetectable, CK, within normal meds. CMP only showing a mild hypokalemia of 3 as well as slightly elevated bilirubin of 1.7. Given oral replacement for potassium. [BM] 0452 test negative. [BM] 0525 Urine drug screen positive for amphetamines. [BM] 0542 Patient is medically cleared for admission to [facility]. [BM] ED Course User Index [BM] Billie Spears DO Diagnoses as of 09/02/23 0543 Paranoia (psychosis) (HCC) Hypokalemia Methamphetamine-induced psychotic disorder (HCC) Medications LORazepam (Ativan) injection 2 mg (has no administration in time range) haloperidol lactate (Haldol) injection 5 mg (has no administration in time range) potassium chloride CR (Klor-Con M10) ER tablet 40 mEq (40 mEq Oral Given 09/02/23 0510) REVAL: CRITICAL CARE TIME FINAL IMPRESSION 1. Paranoia (psychosis) (HCC) 2. Hypokalemia 3. Methamphetamine-induced psychotic disorder (HCC) DISPOSITION PATIENT REFERRED TO: No follow-up provider specified. DISCHARGE MEDICATIONS: New Prescriptions No medications on file (Comment: Please note this report has been produced using speech recognition software and may contain errors related to that system including errors in grammar, punctuation, and spelling, as well as words and phrases that may be inappropriate. If there are any questions or concerns please feel free to contact the dictating provider for clarification.) Billie Spears DO (electronically signed) Emergency Medicine Provider Billie Spears DO 09/02/[address] [facility] 09-02-2023 Physician Emergency department Note Emergency Department Encounter Location: [facility] ED Patient: Dhaval Moon : 2000 Date of evaluation: 09/02/2023 ED Provider: Glenn Guerrero MD Time received sign-out: 0700 Dhaval Moon was checked out to me by Dr. Chan. Please see his/her initial documentation for details of the patient's initial ED presentation, physical exam and completed studies. In brief, Dhaval Moon is a 22 y.o. adult that presented to the emergency department for evaluation of anxiety, paranoia. Patient states she has been slipped methamphetamines recently causing psychosis. Patient was reexamined approximately 9 AM after waking from sleeping. She is awake and fully alert and answering questions appropriately. She is not suicidal or homicidal. She states her anxiety is resolved. States she was concerned that people were after her but she feels safe going home. She appears to have clear sensorium at this time. I have reviewed and interpreted all of the currently available lab results and diagnostics from this visit: Results for orders placed or performed during the hospital encounter of 09/02/23 SARS-CoV-2 Antigen Specimen: Nasal; Swab Result Value Ref Range SARS-CoV-2 Antigen Negative Negative CBC auto differential Result Value Ref Range Auto WBC 7.0 3.6 - 10.7 10*3/uL RBC 4.83 3.80 - 5.20 10*6/uL Hemoglobin 15.4 11.7 - 16.0 g/dL Hematocrit 45.1 35.0 - 47.0 % MCV 93.4 77.0 - 99.0 fL MCH 31.9 26.0 - 34.0 pg MCHC 34.1 30.5 - 36.0 % RDW 14.2 11.5 - 15.0 % Platelets 369 140 - 440 10*3/uL MPV 10.7 9.0 - 12.7 fL nRBC 0.0 0.0 - 2.0 /100 WBCs Neutrophils Relative 55.7 38.0 - 82.0 % Lymphocytes Relative 33.0 15.0 - 45.0 % Monocytes Relative 9.2 5.0 - 13.0 % Eosinophils Relative 1.4 0.0 - 6.0 % Basophils Relative 0.4 0.0 - 2.0 % Immature Grans % 0.3 0.0 - 2.0 % Neutrophils Absolute 3.9 1.8 - 7.5 10*3/uL Lymphocytes Absolute 2.3 1.0 - 4.3 10*3/uL Monocytes Absolute 0.6 0.0 - 0.9 10*3/uL Eosinophils Absolute 0.1 0.0 - 0.5 10*3/uL Basophils Absolute 0.0 0.0 - 0.2 10*3/uL Immature Grans Absolute 0.0 <0.1 10*3/uL Comprehensive metabolic panel Result Value Ref Range SODIUM 138 135 - 145 mmol/L POTASSIUM 3.0 (L) 3.5 - 5.1 mmol/L CHLORIDE 104 98 - 107 mmol/L CARBON DIOXIDE 25 22 - 30 mmol/L ANION GAP 10 3 - 13 mmol/L UREA NITROGEN 10 7 - 17 mg/dL CREATININE 0.52 0.52 - 1.04 mg/dL GLUCOSE 88 70 - 100 mg/dL CALCIUM 9.3 8.4 - 10.4 mg/dL AST (SGOT) 34 15 - 46 U/L ALT 26 0 - 34 U/L ALKALINE PHOSPHATASE 97 38 - 126 U/L ALBUMIN 4.0 3.5 - 5.0 g/dL BILIRUBIN, TOTAL 1.7 (H) 0.2 - 1.3 mg/dL TOTAL PROTEIN 7.7 6.3 - 8.2 g/dL eGFR >90.0 >60.0 mL/min/1.73m*2 Drug screen panel, emergency Result Value Ref Range AMPHETAMINE SCREEN Positive BARBITURATES SCREEN Negative BENZODIAZEPINE SCREEN Negative COCAINE METAB. SCREEN Negative METHADONE SCREEN Negative OPIATES SCREEN Negative OXYCODONE SCREEN Negative PHENCYCLIDINE SCREEN Negative Ethanol Result Value Ref Range ETHANOL IN SER/PLAS <0.010 0.000 - 0.010 g/dL CPK Result Value Ref Range CK 63 30 - 170 U/L hCG, quantitative, Result Value Ref Range HCG QUANTITATIVE <2 Females <=5 mIU/mL Urinalysis with reflex microscopic Result Value Ref Range Color, Urine Light Yellow Lt. Yellow Clarity, Urine Turbid (A) Clear pH, Urine 5.5 5.0 - 8.0 pH Leukocytes, Urine 25 (A) Negative Lolita/uL Nitrite, Urine Negative Negative Protein, Urine Negative Negative mg/dL Glucose, Urine Normal Normal (<70) mg/dL Bilirubin, Urine Negative Negative mg/dL Ketones, Urine Negative Negative mg/dL Urobilinogen, Urine Normal Normal (0-1) mg/dL Blood, Urine Negative Negative mg/dL Volume, Urine 12 mL RBC, Urine 0-2 0 - 2 /HPF WBC, Urine 3-5 0 - 5 /HPF Squamous Epithelial, Urine 6-10 (A) 3 - 5 /HPF Bacteria, Urine Few (A) Negative /HPF Mucus, Urine Negative Negative /LPF SPECIFIC GRAVITY OF URINE (NUMERIC) 1.005 1.005 - 1.030 No orders to display Final ED Course and MDM: In brief, Dhaval Moon is a 22 y.o. whose care was signed out to me by the outgoing provider. 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 She is not suicidal homicidal and understands her situation and surroundings. I do feel she can go home and follow-up as an outpatient. Medications LORazepam (Ativan) injection 2 mg (has no administration in time range) haloperidol lactate (Haldol) injection 5 mg (has no administration in time range) potassium chloride CR (Klor-Con M10) ER tablet 40 mEq (40 mEq Oral Given 09/02/23 0510) I Glenn Guerrero MD am the associate music professor of record. Final Impression 1. Paranoia (psychosis) (HCC) 2. Hypokalemia 3. Methamphetamine-induced psychotic disorder (HCC) DISPOSITION (Please note that portions of this note may have been completed with a voice recognition program. Efforts were made to edit the dictations but occasionally words are mis-transcribed.) Glenn Guerrero MD [employer] Glenn Guerrero MD 09/02/23 0903 [employer] Work Phone: 08-19-2023 Note . MICRO - Microbiology PROCEDURE: Urine Culture [*1] SOURCE: Urine, Clean Catch BODY SITE: COLLECTED DATE/TIME: 08/18/2023 05:26 EDT RECEIVED DATE/TIME: 08/18/2023 14:25 EDT START DATE/TIME: 08/18/2023 14:25 EDT FREE TEXT SOURCE: FINAL REPORTS Final Report [] Verified Date/Time/Personnel: 08/19/2023 14:52 EDT 50,000 - 100,000 cfu/ml Multiple bacterial morphotypes present. Probable Contamination. Suggest recollection if clinically indicated. Performing Locations *1: This test was performed at: [address], [facility] , [facility] 08-18-2023 Evaluation + Plan note Diagnostic Tests PendingUrine Culture 08/18/23 [facility] 08-17-2023 Note Sinus tachycardia Prolonged QT interval Electronic Signature: REGINE CONRAD MD 08/17/2023 21:35:30 [facility] 06-28-2023 Evaluation + Plan note Associated Problem(s): Moderate episode of recurrent major depressive disorder (HCC) Partial remission, continue Zoloft 100 mg daily [employer] [facility] 06-28-2023 Evaluation + Plan note Associated Problem(s): Elevated transaminase level Stable, will recheck labs today. [facility] 06-28-2023 Miscellaneous Notes Associated Problem(s): Moderate episode of recurrent major depressive disorder (HCC) Partial remission, continue Zoloft 100 mg daily Associated Problem(s): Elevated transaminase level Stable, will recheck labs today. Associated Problem(s): Anxiety Partial remission, continue Zoloft 100 mg daily Associated Problem(s): Moderate persistent asthma with exacerbation Stable, continue albuterol as needed. documented in this encounter [facility] 06-28-2023 Evaluation + Plan note Associated Problem(s): Anxiety Partial remission, continue Zoloft [address] [facility] 06-28-2023 Evaluation + Plan note Associated Problem(s): Moderate persistent asthma with exacerbation Stable, continue albuterol as needed. [facility] 06-28-2023 History of Presen t illness Narrative Patient verified by last name and date of . Images from the original note were not included. 06/28/2023 Dhaval Mendosa Moon (: 2000) is a 22 y.o. female , Established patient, here for evaluation of the following chief complaint(s): ER Follow-up ([facility] ED- 06/17/23/Intoxication/hallucinati ons), Hospital Follow-up ([facility] 06/07-06/10/23/Alcohol withdrawal syndrome), Health Maintenance (Pcv 20 vaccine- refuse/Varicella vaccine- had chicken pox /Hpv vaccine- refuse/Hep c screening- refuse/Covid vaccine- not done/Pap- not done and not ready for one), Med Refill, and Fatigue ASSESSMENT/PLAN: 1. Moderate persistent asthma with exacerbation Assessment & Plan: Stable, continue albuterol as needed. 2. Anxiety Assessment & Plan: Partial remission, continue Zoloft 100 mg daily 3. Moderate episode of recurrent major depressive disorder (HCC) Assessment & Plan: Partial remission, continue Zoloft 100 mg daily 4. Elevated transaminase level Assessment & Plan: Stable, will recheck labs today. 5. Screening for diabetes mellitus - Comprehensive metabolic panel 6. Screening for lipid disorders - Lipid panel 7. Controlled drug dependence (HCC) - [facility] [place] [facility] ([facility]) Follow up in about 3 months (around 09/28/2023). SUBJECTIVE/OBJECTIVE: HELEN Bryan comes in today for follow-up on her asthma, hypothyroidism, anxiety and depression, she has elevated transaminase levels that she needs rechecked. And she is on a controlled medication and needs a drug screen. She seems to be doing better she is living in a women halfway and she has lost another 14 pounds. Review of Systems Constitutional: Negative for chills and fever. Respiratory: Negative for shortness of breath. Cardiovascular: Negative for chest pain and palpitations. Gastrointestinal: Negative for abdominal pain, blood in stool, constipation and diarrhea. Genitourinary: Negative for dyspareunia, dysuria, frequency, hematuria and urgency. Neurological: Negative for weakness and numbness. Psychiatric/Behavioral: Negative for dysphoric mood. The patient is not nervous/anxious. Vitals: 06/28/23 0949 06/28/23 1035 BP: (!) 132/91 (!) 136/90 Pulse: 95 105 SpO2: 97% Weight: 260 lb (118 kg) Height: 5' 2 (1.575 m) Physical Exam Vitals and nursing note reviewed. Constitutional: General: She is not in acute distress. Appearance: Normal appearance. She is obese. HENT: Head: Normocephalic. Right Ear: Tympanic membrane, ear canal and external ear normal. Left Ear: Tympanic membrane, ear canal and external ear normal. Mouth/Throat: Mouth: Mucous membranes are moist. Pharynx: Oropharynx is clear. Eyes: Extraocular Movements: Extraocular movements intact. Pupils: Pupils are equal, round, and reactive to light. Cardiovascular: Rate and Rhythm: Normal rate and regular rhythm. Heart sounds: Normal heart sounds. No murmur heard. Pulmonary: Effort: Pulmonary effort is normal. Breath sounds: Normal breath sounds. Abdominal: General: Bowel sounds are normal. Palpations: Abdomen is soft. Musculoskeletal: General: Normal range of motion. Cervical back: Normal range of motion. Lymphadenopathy: Cervical: No cervical adenopathy. Skin: General: Skin is warm and dry. Neurological: General: No focal deficit present. Mental Status: She is alert and oriented to person, place, and time. Psychiatric: Mood and Affect: Mood normal. An electronic signature was used to authenticate this note. Anthony Booth MD 06/28/2023 3:24 PM documented in this encounter [facility] 06-21-2023 Telephone encounter Note Okay, thank you [facility] 06-21-2023 Miscellaneous Notes Okay, thank you Pt is scheduled to come into the office on 06/28/23 Will attempt to call this afternoon and/or tomorrow, since attempt was made this morning. We have been unable to reach your patient to schedule their testing. Test Name: Therapy 1st Attempt: 04-13-23 2nd Attempt: 06-21-23 documented in this encounter [facility] 06-21-2023 Telephone encounter Note Pt is scheduled to come into the office on 06/28/23 [facility] 06-21-2023 Telephone encounter Note Will attempt to call this afternoon and/or tomorrow, since attempt was made this morning. [facility] 06-21-2023 Telephone encounter Note We have been unable to reach your patient to schedule their testing. Test Name: Therapy 1st Attempt: 04-13-23 2nd Attempt: 06-21-23 [facility] 06-20-2023 Note Addended by: TONI GONZALES on: 06/20/2023 12:54 PM Modules accepted: Orders [facility] 06-20-2023 Note Addended by: TONI GONZALES on: 06/20/2023 12:54 PM Modules accepted: Orders [facility] 06-20-2023 Note Addended by: TONI GONZALES on: 06/20/2023 12:54 PM Modules accepted: Orders [facility] 06-20-2023 Miscellaneous Notes Addended by: TONI GONZALES on: 06/20/2023 12:54 PM Modules accepted: Orders Medication name: sertraline (Zoloft) 100 MG tablet Medication dosage: 100 mg (Miligrams Monthly quantity needed: 30 How many day supply requestin days Medication route: oral (PO) Medication administration time(s): daily If taking medication PRN, reason for taking medication: N/A If this is a controlled substance do you receive this or any other controlled medication from any other doctor or facility: N/A Ordering provider: Dr. Booth Date of last office visit: 04/25/23 Date of next office visit: 06/28/23 Date of last refill: (see medication tab): 04/1223 Updated/Validated preferred pharmacy: Yes [id number] - [address] Patient instructed to contact the pharmacy prior to picking up the medication: Yes documented in this encounter [facility] 06-20-2023 Telephone encounter Note Medication name: sertraline (Zoloft) 100 MG tablet Medication dosage: 100 mg (Miligrams Monthly quantity needed: 30 How many day supply requestin days Medication route: oral (PO) Medication administration time(s): daily If taking medication PRN, reason for taking medication: N/A If this is a controlled substance do you receive this or any other controlled medication from any other doctor or facility: N/A Ordering provider: Dr. Booth Date of last office visit: 04/25/23 Date of next office visit: 06/28/23 Date of last refill: (see medication tab): 04/1223 Updated/Validated preferred pharmacy: Yes [id number] [place] [id number] [facility] Patient instructed to contact the pharmacy prior to picking up the medication: Yes [facility] 06-20-2023 Telephone encounter Note Patient also needs to schedule a follow up visit in office. [facility] 06-20-2023 Miscellaneous Notes Patient also needs to schedule a follow up visit in office. MCM sent to patient. Awaiting response. Rx sent, OARRS report done, no inconsistencies, needs to sign a CS agreement Pended. Lyrica-NO ANKIT on file. Last filled 04/25/23 S: Patient spoke with CAC nurse regarding Medication Question (PAL Note) B: Onset of symptoms/concern now A: Patient calling re: need for refill on her Albuterol inhaler and Lyrica. Reports that her asthma is acting up and her inhaler is completely empty. Reports an occasional cough and is wheezy. She is speaking in full and complete sentences. No audible wheeze noted. Reports that she was recently released from the hospital for hallucinations and alcohol withdrawal. Reports that he Mom is going to try to get her into a rehab facility today. There is a lot of shouting in the background. Reports that she is safe but at times sounds tearful. I just don't feel good and my allergies are bad. I am around dogs and cats and that makes it worse. Reports that she wants the Lyrica refilled because her feet hurt. R: Upon review of [facility] med list she does have a refill left on the Albuterol Inhaler. This was verified for the patient. Spoke with Policyholder Information Clerk at [facility] and they will fill this for the patient now. To Pharmacy is closed between 1:30 pm and 2:00 pm for lunch. Patient advised of this and that if her breathing becomes worse or if she feels SOB and this does not resolve to go to ER. To increase fluids, try steamy shower. Re: the Lyrica refill request that will be sent to the PCP for review on Monday. Patient understands care advice. No further needs at this time. Patient instructed to call back with new or worsening symptoms. Reason for Disposition Patient has refills remaining on their prescription Protocols used: Medication Refill and Renewal [id number] documented in this encounter [facility] 06-20-2023 Telephone encounter Note MCM sent to patient. Awaiting response. [facility] 06-19-2023 Telephone encounter Note Rx sent, OARRS report done, no inconsistencies, needs to sign a CS agreement [facility] 06-19-2023 Telephone encounter Note Pended. Lyrica-NO ANKIT on file. Last filled 04/25/23 [facility] 06-18-2023 Note Formatting of this n ote is different from the original. BEHAVIORAL HEALTH BRIEF INTAKE NOTE SERVICE DATE: 06/18/2023 SERVICE TIME: 6:44 AM Dhaval Moon is a 22 year old female brought in to [facility] ED from Home by friend for an evaluation due to hallucinations and intoxication. Per the ED notes She has been observed until clinically sober. Repeat level is 0.06. I reevaluated the patient. She is not homicidal or suicidal. She is not psychotic. She is not hallucinating. She is clinically sober. I feel she can be safely discharged. We discussed resources for alcohol abuse. She states she will consider it as an outpatient. She is also encouraged to follow with her providers. Return with any new concerns. She is comfortable with this plan. FULL CASE NOT PROCESSED DUE TO: Referral canceled DISPOSITION & PLAN: Admit patient: No Discharge Disposition: Referral Cancelled, Discharge Home Disposition Date: 06/18/23 Disposition Time: 22 Pt discharged home SIGNATURE: AISHA Munoz PATIENT NAME: Dhaval Moon DATE: June 18, 2023 TIME: 6:44 AM [facility] 06-18-2023 Miscellaneous Notes BEHAVIORAL HEALTH BRIEF INTAKE NOTE SERVICE DATE: 06/18/2023 SERVICE TIME: 6:44 AM Dhaval Moon is a 22 year old female brought in to [facility] ED from Home by friend for an evaluation due to hallucinations and intoxication. Per the ED notes She has been observed until clinically sober. Repeat level is 0.06. I reevaluated the patient. She is not homicidal or suicidal. She is not psychotic. She is not hallucinating. She is clinically sober. I feel she can be safely discharged. We discussed resources for alcohol abuse. She states she will consider it as an outpatient. She is also encouraged to follow with her providers. Return with any new concerns. She is comfortable with this plan. FULL CASE NOT PROCESSED DUE TO: Referral canceled DISPOSITION & PLAN: Admit patient: No Discharge Disposition: Referral Cancelled, Discharge Home Disposition Date: 06/18/23 Disposition Time: 22 Pt discharged home SIGNATURE: AISHA Munoz PATIENT NAME: Dhaval Moon DATE: June 18, 2023 TIME: 6:44 AM documented in this encounter [facility] 06-17-2023 Telephone encounter Note S: Patient spoke with CAC nurse regarding Medication Question (PAL Note) B: Onset of symptoms/concern now A: Patient calling re: need for refill on her Albuterol inhaler and Lyrica. Reports that her asthma is acting up and her inhaler is completely empty. Reports an occasional cough and is wheezy. She is speaking in full and complete sentences. No audible wheeze noted. Reports that she was recently released from the hospital for hallucinations and alcohol withdrawal. Reports that he Mom is going to try to get her into a rehab facility today. There is a lot of shouting in the background. Reports that she is safe but at times sounds tearful. I just don't feel good and my allergies are bad. I am around dogs and cats and that makes it worse. Reports that she wants the Lyrica refilled because her feet hurt. R: Upon review of epic med list she does have a refill left on the Albuterol Inhaler. This was verified for the patient. Spoke with Policyholder Information Clerk at [facility] and they will fill this for the patient now. To Pharmacy is closed between 1:30 pm and 2:00 pm for lunch. Patient advised of this and that if her breathing becomes worse or if she feels SOB and this does not resolve to go to ER. To increase fluids, try steamy shower. Re: the Lyrica refill request that will be sent to the PCP for review on Monday. Patient understands care advice. No further needs at this time. Patient instructed to call back with new or worsening symptoms. Reason for Disposition Patient has refills remaining on their prescription Protocols used: Medication Refill and Renewal [id number] [facility] 06-09-2023 Note HNO ID: [id number] Author: MAYRA SCOTT LSW Service: Care Management Author Type: Crinkling Machine Operator Type: Care Mgt Initial Assessment Filed: 06/09/2023 13:21 Note Text: CARE MANAGEMENT: ASSESSMENT AND DISCHARGE PLAN SERVICE DATE: June 09, 2023 SERVICE TIME: 1:12 PM PCP: Anthony Booth MD Primary Contact: Extended Emergency Contact Information Primary Emergency Contact: Kassie Moon Address: [address] [place] [address] Mobile Relation: Mother Admission Status: Inpatient Insurance Provider: [facility] [employer] MEDICAID OF [place] Discharge Planning requested by: Per Department Practice Potential Transition Plans Home Advance Directives Current Living Arrangements and Support Lives with: Family members, Parent Type of Residence: Private Residence (Apartment or Condo) Does the patient have to climb stairs at home?: No Support: Family members How do you manage to accomplish the following: Independent: Ambulation;Bathe/Shower;Dress;M eals/Meal Prep;Going to the bathroom;Medication Management;Transportation to appointments/community Current Services/Equipment Current Post-Acute Service(s): None Discharge Planning Patient Goal(s): Be able to go home Chaplin of Choice Explained: Are you interested in bedside delivery of your medications? No Discharge Planning Participant(s): Patient Patient/Family Comments: Caregiver Assessment: and ALCOHOL USE/ABUSE CAGE ASSESSMENT Two or More Affirmative Responses Suggest a Client is a Problem Drinker. - Have you felt the need to cut down on your drinking? Yes - Do you feel annoyed by people complaining about your drinking? Yes - Do you ever feel guilty about your drinking? Yes - Do you ever drink an eye-silviculturist in the morning to relieve shakes? Yes Transport at Discharge: -Family/friend Needs Prior to Discharge: Post-Acute Discharge Plan: Chart reviewed. Pt admitted from home for alcohol withdrawal. She is on CIWA precautions. She was positive for cocaine and amphetamines upon admission. Dr. Garcia is seeing her for depression. He also plans on seeing her tomorrow to assess her mental status. She is hypertensive. CHRISTY met with pt, she is AANDO x4. She has a 1:1 sitter. She is calm and cooperative throughout interview. She reports that she lives with her father but it is not stable. She admits to drug and alcohol use, states that she realizes that drugs/alcohol are not good for her health and that she needs to quit. SW provided pt with packet of community resource information: [facility], homeless hotline, homeless resource guide, outpatient drug programs. She said she probably won't utilize the drug rehab programs, she feels that if she talks about her drug use she will want to use even more. CHRISTY encouraged pt to look at the packet and consider the programs to help her with her drug use. Pt reports she will return home with her father. Denies any other needs at this time. SIGNATURE: SANDRA Menendez PATIENT NAME: Dhaval Moon DATE: June 09, 2023 TIME: 1:12 PM CONTACT #: [facility] 06-09-2023 Note HNO ID: [id number] Author: ALBERT SIERRA, PhD Service: Psychology Author Type: Psychologist Type: Progress Notes Filed: 06/09/2023 12:03 Note Text: Reason for referral: Depression. I reviewed the patient's records. I was informed that the patient was experiencing hallucinations and delusions during her stay here. She tested positive to cocaine, amphetamines and barbiturates upon admission. During the meeting the patient was cooperative. She expressed herself in a coherent manner. She told me that she was seeing things in her room including a mouse which was having babies. She was feeling paranoid and felt people were after her. She said that all these psychotic manifestations had already remitted. During my meeting with the patient there were no significant signs or symptoms of psychological distress. There were no signs of psychotic disorder. She had been treated in the past with an antidepressant and antianxiety. Currently she is on Lexapro. She is also on phenobarbital as needed. We discussed the patient's circumstances in the community and she basically does not have her own place. Currently she is not employed. She said she had neuropathy and could not stand on her feet and could not get a job. However she felt improvement when put on Lyrica. I will meet with the patient tomorrow and assess her mental status. The patient was given phenobarbital earlier but was alert during the interview and participated actively in the conversation. [facility] 06-09-2023 Note HNO ID: [id number] Author: LUKAS YOO MD Service: Hospital Medicine Author Type: Physician Type: Progress Notes Filed: 06/09/2023 11:02 Note Text: INPATIENT PROGRESS NOTE SERVICE DATE: 06/09/2023 HOSPITAL COURSE: Subjective INTERVAL HPI: Seen and examined with her mother at bedside along with nurse and case discussed at bedside. Patient earlier this morning was hallucinating however now she is improving but she still tachycardic and hypertensive likely delirium tremens but giving improvement we will keep her on the floor and will continue same management giving improvement. No nausea or vomiting or abdominal pain. Current Outpatient Medications Medication Instructions albuterol (PROVENTIL) 2.5 mg, NEBULIZATION -UNSPEC, EVERY 4 HOURS NEEDED amphetamine-dextroamphetamine XR (ADDERALL XR) 20 mg 24 hr capsule 1 capsule, DAILY dextromethorphan-guaiFENesin (MUCINEX DM) 30-600 mg per tablet 1 tablet, ORAL, 2 TIMES DAILY escitalopram oxalate (LEXAPRO) 10 mg tablet 1 tablet, DAILY fluticasone (FLOVENT) 110 mcg/actuation inhaler 2 Puffs, 2 TIMES DAILY LACTULOSE 10 GM/15 ML SYRUP 1 oz a day MIRALAX 100 % ORAL POWDER 17 grams in fluid a day MIRALAX POWDER take one capful daily Potassium Bicarb-Citric Acid (EFFER-K) 25 mEq disintegrating tablet 25 mEq, ORAL, 2 TIMES DAILY PROAIR RESPICLICK 90 mcg/actuation aepb 2 Puffs, INHALATION, EVERY 6 HOURS NEEDED VERSED 10MG/5ML SYRUP 8mg po x's one now Current Facility-Administered Medications Medication Dose Route Frequency folic acid 1 mg in NaCl 0.9% 50 mL 1 mg INTRAVENOUS DAILY NaCl 0.9% iv flush bag 20 mL INTRAVENOUS PRN NaCl 0.9% iv infusion 150 mL/hr INTRAVENOUS CONTINUOUS ondansetron 4 mg tab(s) (ZOFRAN) 4 mg ORAL q 6 H PRN Or ondansetron (PF) 4 mg injection (ZOFRAN) 4 mg INTRAVENOUS q 6 H PRN aluminum-magnesium hydroxide-simethicone 200-200-20 mg/5 mL 30 mL 30 mL ORAL DAILY PRN polyethylene glycol 3350 17 g packet 17 g ORAL DAILY PRN melatonin 3 mg tab(s) 3 mg ORAL AT BEDTIME PRN hydrALAZINE 10 mg injection (APRESOLINE) 10 mg INTRAVENOUS q 6 H PRN nicotine 14 mg/24 hr 1 Patch (NICODERM) 1 Patch TRANSDERMAL DAILY And nicotine -- REMOVE patch OTHER DAILY And nicotine - verify patch OTHER q 8 H PHENobarbital 65 mg injection 65 mg INTRAVENOUS q 8 H thiamine 200 mg in NaCl 0.9% 50 mL (VITAMIN B1) 200 mg INTRAVENOUS q 8 H Followed by [START ON 06/12/2023] thiamine 100 mg tab(s) (VITAMIN B1) 100 mg ORAL/FEEDING TUBE TID PHENobarbital 65 mg injection 65 mg INTRAVENOUS BID PRN Objective PHYSICAL EXAM: General: Patient is alert and oriented x3 and is in no acute respiratory distress HEENT: Normal cephalic, atraumatic, PERRLA, TM's normal, Nose clear, Mouth normal Neck: Negative hepatojugular reflux or jugular venous distention, negative carotid bruit. Lungs: Clear to auscultation, no wheezing, rales, or rhonchi. Cardiac: tachy Regular rhythm and rate, S1-S2 within normal limits, no murmurs, gallops were appreciated, no rubs. Abdomen: Soft, nontender, nondistended, no HSM detected, bowel sounds are active. Extremities: [No edema, cyanosis, or clubbing. Skin: No rashes or breakdown. Musculoskeletal: normal MS exam, moves all extremities, DTR's normal Lymphatic: Negative cervical, supra-clavicular, groin lymphadenopathy. Neurologic: Cranial nerves from II-XII intact grossly, no focal deficits. Psychiatry: Normal affect. Glucose (mg/dL) Date Value 06/09/2023 95 Potassium (mmol/L) Date Value 06/09/2023 3.6 Sodium (mmol/L) Date Value 06/09/2023 145 Chloride (mmol/L) Date Value 06/09/2023 110 CO2 (mmol/L) Date Value 06/09/2023 27 Creatinine (mg/dL) Date Value 06/09/2023 0.51 BUN (mg/dL) Date Value 06/09/2023 5 Anion Gap (mmol/L) Date Value 06/09/2023 8 Calcium, Total (mg/dL) Date Value 06/09/2023 9.4 Estimated Creatinine Clearance: 206.4 mL/min (based on SCr of 0.51 mg/dL). CBC with diff: WBC 8.02 06/09/2023 RBC 4.96 06/09/2023 Hemoglobin 16.4 06/09/2023 Hematocrit 49.3 06/09/2023 MCV 99.4 06/09/2023 MCH 33.1 06/09/2023 MCHC 33.3 06/09/2023 RDW-CV 13.2 06/09/2023 Platelet Count 279 06/09/2023 MPV 10.5 06/09/2023 Neutrophils % 67.4 06/08/2023 Lymphocytes % 23.8 06/08/2023 Monocytes % 6.7 06/08/2023 Eosinophils % 1.6 06/08/2023 Basophils % 0.4 06/08/2023 Abs Neut 6.29 06/08/2023 Abs [place] 0.63 06/08/2023 Abs Eosin 0.15 06/08/2023 Abs Baso 0.04 06/08/2023 BP 174/108 Pulse 113 Temp (Src) 98 (Oral) Resp 16 Ht 5' 1 (1.55m) Wt 262 lb 1.6 oz (118.9kg) SpO2 97% LMP 04/09/2023 BMI 49.55 kg/(m2). O2 Therapy: Room Air DATA: Diagnostic tests reviewed for today's visit: Most recent labs and imaging results. Assessment/Plan Principal Problem: 22 years old with past medical history of alcohol use disorder, hypertension, liver disease, extensive psychiatric history borderline personality and bipolar who presented to the ER on 06/07 co (more content not included)... [facility] 04-26-2023 Evaluation + Plan note Associated Problem(s): Moderate episode of recurrent major depressive disorder (HCC) We will increase her Zoloft to 100 mg daily and have her follow-up in [address] [facility] 04-26-2023 Miscellaneous Notes Associated Problem(s): Moderate episode of recurrent major depressive disorder (HCC) We will increase her Zoloft to 100 mg daily and have her follow-up in 3 to 4 weeks. Associated Problem(s): Multiple open wounds of foot Referral to wound center in [place] Associated Problem(s): Moderate persistent asthma with exacerbation Stable, refill albuterol MDI and albuterol solution. Associated Problem(s): Alcohol-induced polyneuropathy (HCC) Stable, she says she has not been drinking and she also thinks that the gabapentin is not working well for the neuropathy so we will switch her to Lyrica. OARRS report done, no inconsistencies, Rx sent documented in this encounter [facility] 04-25-2023 Evaluation + Plan note Associated Problem(s): Multiple open wounds of foot Referral to wound center in [place] [facility] 04-25-2023 Note Referral to wound ce nter in [facility] 04-25-2023 Evaluation + Plan note Associated Problem(s): Moderate persistent asthma with exacerbation Stable, refill albuterol MDI and albuterol solution. [facility] 04-25-2023 Miscellaneous Notes Associated Problem(s): Multiple open wounds of foot Referral to wound center in [place] Associated Problem(s): Moderate persistent asthma with exacerbation Stable, refill albuterol MDI and albuterol solution. Associated Problem(s): Alcohol-induced polyneuropathy (HCC) Stable, she says she has not been drinking and she also thinks that the gabapentin is not working well for the neuropathy so we will switch her to Lyrica. OARRS report done, no inconsistencies, Rx sent documented in this encounter [facility] 04-25-2023 Evaluation + Plan note Associated Problem(s): Alcohol-induced polyneuropathy (HCC) Stable, she says she has not been drinking and she also thinks that the gabapentin is not working well for the neuropathy so we will switch her to Lyrica. OARRS report done, no inconsistencies, Rx sent [facility] 04-25-2023 History of Presen t illness Narrative Patient verified by last name and date of . Images from the original note were not included. 04/25/2023 Dhaval Moon (: 2000) is a 22 y.o. female , Established patient, here for evaluation of the following chief complaint(s): Follow-up (4 week), Anxiety, ER Follow-up (Several times - feet cellulitis and on atb feet are scabby and drainage very painful get spasms in feet ), Spasms (Whole body will be shake ), Letter for School/Work, Blood Work (Wonders if need potassium checked ), and Weight Loss (Pt concerned about 20lb weight loss in the last month) ASSESSMENT/PLAN: 1. Alcohol-induced polyneuropathy (HCC) Assessment & Plan: Stable, she says she has not been drinking and she also thinks that the gabapentin is not working well for the neuropathy so we will switch her to Lyrica. OARRS report done, no inconsistencies, Rx sent Orders: - pregabalin (Lyrica) 100 MG capsule; Take 1 capsule (100 mg) by mouth 3 times daily., Starting Mon04/25/2023, Until Crystal 05/25/2023, [facility] 2. Moderate persistent asthma with exacerbation Assessment & Plan: Stable, refill albuterol MDI and albuterol solution. 3. Multiple open wounds of foot Assessment & Plan: Referral to wound center in [place] Orders: - pregabalin (Lyrica) 100 MG capsule; Take 1 capsule (100 mg) by mouth 3 times daily., Starting Mon04/25/2023, Until Crystal 05/25/2023, [facility] Follow up in about 4 weeks (around 05/23/2023). SUBJECTIVE/OBJECTIVE: HPI -Dhaval comes in today for follow-up on her alcohol induced polyneuropathy or asthma and her wounds on her feet she is also having muscle spasms in her feet most likely from her neuropathy. We also discussed her depression and she felt that she could probably benefit from going up on her Zoloft. Blood pressure is elevated today we will recheck that prior to discharge Review of Systems Constitutional: Negative for chills and fever. HENT: Negative for ear pain, rhinorrhea and sinus pressure. Respiratory: Negative for shortness of breath. Cardiovascular: Negative for chest pain and palpitations. Musculoskeletal: Positive for myalgias. Psychiatric/Behavioral: Positive for dysphoric mood and sleep disturbance. Negative for self-injury and suicidal ideas. The patient is nervous/anxious. Vitals: 04/25/23 1437 04/25/23 1510 BP: (!) 151/105 (!) 153/98 Pulse: (!) 125 (!) 125 SpO2: 91% Weight: 274 lb 9.6 oz (125 kg) Height: 5' 2 (1.575 m) Physical Exam Vitals and nursing note reviewed. Constitutional: General: She is not in acute distress. Appearance: Normal appearance. HENT: Head: Normocephalic and atraumatic. Mouth/Throat: Mouth: Mucous membranes are moist. Pharynx: Oropharynx is clear. Eyes: Extraocular Movements: Extraocular movements intact. Pupils: Pupils are equal, round, and reactive to light. Cardiovascular: Rate and Rhythm: Normal rate and regular rhythm. Heart sounds: Normal heart sounds. No murmur heard. Pulmonary: Effort: Pulmonary effort is normal. Breath sounds: Normal breath sounds. Abdominal: Comments: Morbidly obese Musculoskeletal: Cervical back: Neck supple. Lymphadenopathy: Cervical: No cervical adenopathy. Skin: Comments: Feet with scaly erythematous skin with multiple small wounds, neuropathy that is very painful Neurological: Mental Status: She is alert. Psychiatric: Mood and Affect: Mood is anxious and depressed. Affect is flat. An electronic signature was used to authenticate this note. Anthony Booth MD 04/25/2023 3:45 PM documented in this encounter [facility] 04-25-2023 History of Presen t illness Narrative Patient verified by last name and date of . Images from the original note were not included. 04/25/2023 Dhaval Moon (: 2000) is a 22 y.o. female , Established patient, here for evaluation of the following chief complaint(s): Follow-up (4 week), Anxiety, ER Follow-up (Several times - feet cellulitis and on atb feet are scabby and drainage very painful get spasms in feet ), Spasms (Whole body will be shake ), Letter for School/Work, Blood Work (Wonders if need potassium checked ), and Weight Loss (Pt concerned about 20lb weight loss in the last month) ASSESSMENT/PLAN: 1. Alcohol-induced polyneuropathy (HCC) Assessment & Plan: Stable, she says she has not been drinking and she also thinks that the gabapentin is not working well for the neuropathy so we will switch her to Lyrica. OARRS report done, no inconsistencies, Rx sent Orders: - pregabalin (Lyrica) 100 MG capsule; Take 1 capsule (100 mg) by mouth 3 times daily., Starting Mon04/25/2023, Until Crystal 05/25/2023, Normal - [facility] 2. Moderate persistent asthma with exacerbation Assessment & Plan: Stable, refill albuterol MDI and albuterol solution. 3. Multiple open wounds of foot Assessment & Plan: Referral to wound center in [place] Orders: - pregabalin (Lyrica) 100 MG capsule; Take 1 capsule (100 mg) by mouth 3 times daily., Starting Mon04/25/2023, Until Crystal 05/25/2023, Normal - [facility] 4. Moderate episode of recurrent major depressive disorder (HCC) Assessment & Plan: We will increase her Zoloft to 100 mg daily and have her follow-up in 3 to 4 weeks. Follow up in about 4 weeks (around 05/23/2023). SUBJECTIVE/OBJECTIVE: HPI -Dhaval comes in today for follow-up on her alcohol induced polyneuropathy or asthma and her wounds on her feet she is also having muscle spasms in her feet most likely from her neuropathy. We also discussed her depression and she felt that she could probably benefit from going up on her Zoloft. Blood pressure is elevated today we will recheck that prior to discharge Review of Systems Constitutional: Negative for chills and fever. HENT: Negative for ear pain, rhinorrhea and sinus pressure. Respiratory: Negative for shortness of breath. Cardiovascular: Negative for chest pain and palpitations. Musculoskeletal: Positive for myalgias. Psychiatric/Behavioral: Positive for dysphoric mood and sleep disturbance. Negative for self-injury and suicidal ideas. The patient is nervous/anxious. Vitals: 04/25/23 1437 04/25/23 1510 BP: (!) 151/105 (!) 153/98 Pulse: (!) 125 (!) 125 SpO2: 91% Weight: 274 lb 9.6 oz (125 kg) Height: 5' 2 (1.575 m) Physical Exam Vitals and nursing note reviewed. Constitutional: General: She is not in acute distress. Appearance: Normal appearance. HENT: Head: Normocephalic and atraumatic. Mouth/Throat: Mouth: Mucous membranes are moist. Pharynx: Oropharynx is clear. Eyes: Extraocular Movements: Extraocular movements intact. Pupils: Pupils are equal, round, and reactive to light. Cardiovascular: Rate and Rhythm: Normal rate and regular rhythm. Heart sounds: Normal heart sounds. No murmur heard. Pulmonary: Effort: Pulmonary effort is normal. Breath sounds: Normal breath sounds. Abdominal: Comments: Morbidly obese Musculoskeletal: Cervical back: Neck supple. Lymphadenopathy: Cervical: No cervical adenopathy. Skin: Comments: Feet with scaly erythematous skin with multiple small wounds, neuropathy that is very painful Neurological: Mental Status: She is alert. Psychiatric: Mood and Affect: Mood is anxious and depressed. Affect is flat. An electronic signature was used to authenticate this note. Anthony Booth MD 04/26/2023 8:15 AM documented in this encounter [facility] 04-25-2023 Telephone encounter Note Prescription Request: Last medication check: 03/21/23(hosp follow up) Last physical exam: none Next scheduled appointment: 04/25/23 Last date of refill on this medication 03/21/[address] [facility] 04-25-2023 Miscellaneous Notes Prescription Request: Last medication check: 03/21/23(hosp follow up) Last physical exam: none Next scheduled appointment: 04/25/23 Last date of refill on this medication 03/21/23 30 day no refill documented in this encounter [facility] 03-21-2023 Evaluation + Plan note Associated Problem(s): Anxiety Uncontrolled, Zoloft 50 mg daily follow-up in [address] [facility] 03-21-2023 Evaluation + Plan note Associated Problem(s): ETOH abuse Encourage patient to go online and get the number for Alcoholics Anonymous to be put in touch with a sponsor IBRAHIMA to keep her from going back on the alcohol. [facility] 03-21-2023 Evaluation + Plan note Associated Problem(s): Polycythemia Repeat CBC today [facility] 03-21-2023 Miscellaneous Notes Associated Problem(s): Anxiety Uncontrolled, Zoloft 50 mg daily follow-up in 3 to 4 weeks Associated Problem(s): ETOH abuse Encourage patient to go online and get the number for Alcoholics Anonymous to be put in touch with a sponsor IBRAHIMA to keep her from going back on the alcohol. Associated Problem(s): Polycythemia Repeat CBC today Associated Problem(s): Acquired hypothyroidism Repeat lab work today for confirmation. Associated Problem(s): Morbid obesity with body mass index (BMI) of 50.0 to 59.9 in adult (HCC) Encourage patient to continue weight loss with diet and exercise. Associated Problem(s): Moderate persistent asthma with exacerbation Stable, we will refill her albuterol inhaler Associated Problem(s): Alcohol-induced polyneuropathy (HCC) Gabapentin will increase that to 300 mg 3 times a day OARRS report done, no inconsistencies, CS agreement will need to sign and also get her into some physical therapy. Associated Problem(s): Weakness of both lower extremities Will refer patient to physical therapy for strengthening and weightbearing and balance documented in this encounter [facility] 03-21-2023 Evaluation + Plan note Associated Problem(s): Acquired hypothyroidism Repeat lab work today for confirmation. [facility] 03-21-2023 Evaluation + Plan note Associated Problem(s): Morbid obesity with body mass index (BMI) of 50.0 to 59.9 in adult (HCC) Encourage patient to continue weight loss with diet and exercise. [facility] 03-21-2023 Evaluation + Plan note Associated Problem(s): Moderate persistent asthma with exacerbation Stable, we will refill her albuterol inhaler [facility] 03-21-2023 Evaluation + Plan note Associated Problem(s): Alcohol-induced polyneuropathy (HCC) Gabapentin will increase that to 300 mg 3 times a day OARRS report done, no inconsistencies, CS agreement will need to sign and also get her into some physical therapy. [facility] 03-21-2023 Evaluation + Plan note Associated Problem(s): Weakness of both lower extremities Will refer patient to physical therapy for strengthening and weightbearing and balance [facility] 03-21-2023 History of Presen t illness Narrative Patient verified by last name and date of . Images from the original note were not included. 03/21/2023 Dhaval Moon (: 2000) is a 22 y.o. female , Established patient, here for evaluation of the following chief complaint(s): Hospital Follow-up ([facility] 04/08/22-//Was told have thyroid issue but they did not treat due to medications she was on), Alcohol Problem (Need to get into treatment ), Hypertension, neuropathy, Anemia, Anxiety, and Depression (Bipolar ) ASSESSMENT/PLAN: 1. ETOH abuse Assessment & Plan: Encourage patient to go online and get the number for Alcoholics Anonymous to be put in touch with a sponsor IBRAHIMA to keep her from going back on the alcohol. Orders: - Comprehensive metabolic panel 2. Anxiety Assessment & Plan: Uncontrolled, Zoloft 50 mg daily follow-up in 3 to 4 weeks 3. Moderate persistent asthma with exacerbation Assessment & Plan: Stable, we will refill her albuterol inhaler 4. Alcohol-induced polyneuropathy (HCC) Assessment & Plan: Gabapentin will increase that to 300 mg 3 times a day OARRS report done, no inconsistencies, CS agreement will need to sign and also get her into some physical therapy. Orders: - [facility] 5. Weakness of both lower extremities Assessment & Plan: Will refer patient to physical therapy for strengthening and weightbearing and balance Orders: - [facility] 6. Acquired hypothyroidism Assessment & Plan: Repeat lab work today for confirmation. Orders: - TSH - T4, free - T3, free 7. Polycythemia Assessment & Plan: Repeat CBC today Orders: - CBC auto differential 8. Morbid obesity with body mass index (BMI) of 50.0 to 59.9 in adult (HCC) Assessment & Plan: Encourage patient to continue weight loss with diet and exercise. Follow up in about 4 weeks (around 04/18/2023). SUBJECTIVE/OBJECTIVE: HELEN Bryan comes in today for follow-up on a hospital admission for detox for alcohol abuse she also was noted at that time to have an elevated TSH so we need to follow-up on not she had polycythemia but she also was dehydrated so that possibly could have been contributing she had a urinary tract infection that seems to have been resolved. 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 She also would like to get into some physical therapy. We also discussed her alcohol abuse and that she needs to contact AA today and get set up to be attending meetings. Review of Systems Constitutional: Negative for chills and fever. Respiratory: Negative for shortness of breath. Cardiovascular: Negative for chest pain and palpitations. Gastrointestinal: Negative for abdominal pain, blood in stool, constipation and diarrhea. Genitourinary: Negative for dyspareunia, dysuria, frequency, hematuria and urgency. Neurological: Negative for weakness and numbness. Psychiatric/Behavioral: Negative for dysphoric mood. The patient is not nervous/anxious. Vitals: 03/21/23 1021 03/21/23 1049 BP: (!) 132/90 (!) 132/92 Pulse: (!) 120 (!) 112 SpO2: 96% Weight: (!) 301 lb 9.6 oz (137 kg) Height: 5' 2 (1.575 m) Physical Exam Vitals and nursing note reviewed. Constitutional: General: She is not in acute distress. Appearance: Normal appearance. She is obese. HENT: Head: Normocephalic. Mouth/Throat: Mouth: Mucous membranes are moist. Pharynx: Oropharynx is clear. Eyes: Extraocular Movements: Extraocular movements intact. Pupils: Pupils are equal, round, and reactive to light. Cardiovascular: Rate and Rhythm: Normal rate and regular rhythm. Heart sounds: Normal heart sounds. No murmur heard. Pulmonary: Effort: Pulmonary effort is normal. Breath sounds: Normal breath sounds. Abdominal: Comments: Obese Musculoskeletal: General: Normal range of motion. Cervical back: Normal range of motion. Lymphadenopathy: Cervical: No cervical adenopathy. Skin: General: Skin is warm and dry. Neurological: General: No focal deficit present. Mental Status: She is alert and oriented to person, place, and time. Psychiatric: Mood and Affect: Mood normal. An electronic signature was used to authenticate this note. 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 Multiple open wounds of foot [facility] Diagnosis Moderate persistent asthma with exacerbation- Primary Unspecified asthma, with exacerbation Anxiety Anxiety state, unspecified Moderate episode of recurrent major depressive disorder (HCC) Elevated transaminase level Screening for diabetes mellitus Screening for lipid disorders Controlled drug dependence (HCC) documented in this encounter [facility] note* Diagnosis Paranoia (psychosis) (HCC)- Primary Delusional disorder Hypokalemia Hypopotassemia Methamphetamine-induced psychotic disorder (HCC) [facility] Narrative No data available for this section [facility] Discharge instructions No data available for this section [facility] Progress note No data available for this section [facility] Reason for referral (narrative)* Consultation (Routine) - Pending Review Specialty Diagnoses / Procedures Referred By Contkarlene t Referred To Contact Wound Care Diagnoses Alcohol-induced polyneuropathy (HCC) Multiple open wounds of foot Procedures [place] OFFICE/OUTPATIENT NEW HIGH MDM 60 MINUTES Anthony Booth MD [address], [place] [address] Sb Op Wnd Ostomy [facility] [address] [place] [address] Referral ID Status Reason Start Date Expiration Date Visits Requested Visits Authorized [id number] Pending Review Specialty Services Required 04/25/2023 04/24/2024 1 1 [facility] note* RAIMUNDO Garcia: PERFORM Event Display: Patient Summary Documents Authored Date: [id number] [facility] Summary Purpose Family History No Family History Records FoundNo Family History Records FoundNo Family History Records FoundNo Family History Records FoundNo Family History Records Found No data available for this section No data available for this section No Family History Records FoundNo Family History Records Found Advance Directives No Advanced Directives Records Found Advance Directive Response Recorded Date/ Time Advance Directives Yes March 2:15am Organ Donor No April 02, 2 024 2:15am Tissue Donor No April 02 024 2:15am Advance Directive Response Recorded Date/ Time Advance Directives Yes March 2:15am Organ Donor No April 07, 2 024 4:57pm Tissue Donor No April 07, 2 024 4:57pm Date Activated Date Inactivated Comments 06/08/2023 9:23 PM 06/10/2023 5:53 PM Question Answer Comments Full Code Order Discussed With: Patient Reason for Referral Specialty Diagnoses / Procedures Referred By Contkarlene t Referred To Contact Physical Therapy Diagnoses Alcohol-induced polyneuropathy (HCC) Weakness of both lower extremities Procedures WA OFFICE/OUTPATIENT NEW HIGH MDM 60 MINUTES Anthony Booth MD [address] [place] [address], [place] [address] [facility] [address] [place] [address] Referral ID Status Reason Start Date Expiration Date Visits Requested Visits Authorized [id number] Pending Review Eval and Treat 03/21/2023 03/15/2024 99 99 Additional Source Comments INFORMATION SOURCE (unrecogn ized section and content) DATE CREATED AUTHOR 01/18/2019 [facility] DATE CREATED AUTHOR AUTHOR'S ORGANIZ ATION 03/16/2021 [facility] DATE CREATED AUTHOR AUTHOR'S ORGANIZ ATION 04/17/2023 [facility] DATE CREATED AUTHOR AUTHOR'S ORGANIZ ATION 04/22/2023 [place] ([place]) DATE CREATED AUTHOR AUTHOR'S ORGANIZ ATION 06/18/2023 [facility] DATE CREATED AUTHOR AUTHOR'S ORGANIZ ATION 09/05/2023 [facility] ([place]) DATE CREATED AUTHOR AUTHOR'S ORGANIZ ATION 11/30/2023 [facility] Care Teams (unrecognized sec tion and content) Sports Physician Relationship Specialty Start Date End Date Anthony Booth MD [address] [place] [id number] PCP - General 05/12/15 Sports Physician Relationship Specialty Start Date End Date Anthony Booth MD [address] [place] [id number] PCP - General 05/12/15 Team Status: Active Member Role Status Dates [facility] Primary Care Provi shawn Active Team Status: Inactive Member Role Status Dates [facility] Primary Care Provider Active Start: April [id number] End: April 02, 2023 Zachary Armenta MD Emergency Provider Active Sta rt: April 02, 2023 End: April 02, 2023 Team Status: Inactive Member Role Status Dates [facility] Primary Care Provider Active Start: April [id number] End: April 07, 2023 ED Doctor Emergency Provider Active Start: Yajaira coello 2023 End: April 07, 2023 Sports Physician Relationship Specialty Start Date End Date Anthony Booth MD [address] [place], [place] [id number] PCP - General 05/12/15 Sports Physician Relationship Specialty Start Date End Date Anthony Booth MD [address] [facility] [place] [address] PCP - General 05/12/15 Sports Physician Relationship Specialty Start Date End Date Anthony Booth MD [address] [facility] [place] [address] PCP - General 05/12/15 Sports Physician Relationship Specialty Start Date End Date Anthony Booth [address] [facility] [place] [address] PCP - General Family Medicine 01/17/19 Sports Physician Relationship Specialty Start Date End Date Anthony Booth MD [address] [facility] [place] [address] PCP - General 05/12/15 Sports Physician Relationship Specialty Start Date End Date Anthony Booth MD [address] [facility] [place] [address] PCP - General 05/12/15 Sports Physician Relationship Specialty Start Date End Date Anthony Booth MD [address] [facility] [place] [address] PCP - General 05/12/15 Sports Physician Relationship Specialty Start Date End Date Anthony Booth MD [address] [facility] [place] [address] PCP - General 05/12/15 Sports Physician Relationship Specialty Start Date End Date Anthony Booth MD [address] [facility] [place] [address] PCP - General 05/12/15 Reason for Visit (unrecogniz ed section and content) Reason Comments Hospital Follow-up [facility] 04/08-Was told have thyroid issue but they did not treat due to medications she was on Alcohol Problem Need to get into carly atment Hypertension neuropathy Anemia Anxiety Depression Bipolar Reason Comments Med Refill Reason Comments Follow-up 4 week Anxiety ER Follow-up Several times - feet cellulitis and on atb feet are scabby and drainage very painful get spasms in feet Spasms Whole body will be s héctor Letter for School/Work Blood Work Wonders if need pota ssium checked Weight Loss Pt concerned about 2 0lb weight loss in the last month Reason Onset Date Comments Hallucinations 06/17/2023 Reason Onset Date Comments Med Refill 06/17/2023 Reason Onset Date Comments Med Refill 06/20/2023 Reason Onset Date Comments Scheduling 06/21/2023 Reason Comments ER Follow-up [facility] ED- 06/17/23 Intoxicationhallucinations Hospital Follow-up [facility] 06/07-Alcohol withdrawal syndrome Health Maintenance Pcv 20 vaccine- refu seVaricella vaccine- had chicken pox Hpv vaccine- refuseHep c screening- refuseCovid vaccine- not donePap- not done and not ready for one Med Refill Fatigue Reason Comments Anxiety Goals (unrecognized section and content) Goals may be documented in a n alternate sectionGoals may be documented in an alternate section No data available for this section No data available for this section Source Comments (unrecognize d section and content) In the event this informatio n is protected by the Federal Confidentiality of Alcohol and Drug Abuse Patient Records regulations: The Federal rules restrict any use of the information to criminally investigate or prosecute any alcohol or drug abuse patient.[facility] Scheduled Active and Recently Administ ered Medications (unrecognized section and content) Medication Order 08/31/2023 09/01/2023 09/02/2023 potassium chloride CR (Klor-Con M10) ER tablet 40 mEq (COMPLETED) 40 mEq, Oral, Once, On 09/02/23 at 0430, For 1 dose, Best given with food and plenty of water to minimize gastric irritation. Do not crush or chew. 0510 (Given - Provid er: Natty Landeros RN) PRN Medication Order 08/31/2023 09/01/2023 09/02/2023 haloperidol lactate (Haldol) injection 5 mg 5 mg, IntraMUSCular, Once PRN, agitation, Starting on 09/02/23 at 0224, For 1 dose, IM route of administration preferred. Because of the risk of TdP and QT prolongation, ECG monitoring is recommended if haloperidol is given IV LORazepam (Ativan) injection 2 mg 2 mg, IntraMUSCular, Once PRN, agitation, Starting on 09/02/23 at 0224, For 1 dose, For IV doses dilute dose with 1ml NS. FOR RECORDS PERTAINING TO PATIENTS WHO ARE OR HAVE BEEN ENROLLED IN A CHEMICAL DEPENDENCY/SUBSTANCEABUSE PROGRAM, SOME INFORMATION MAY BE OMITTED. This clinical summary was aggregated from multiple sources. Caution should be exercised in using it in the provision of clinical care. This summary normalizes information from multiple sources, and as a consequence, information in this document may materially change the coding, format and clinical context of patient data. In addition, data may be omitted in some cases. CLINICAL DECISIONS SHOULD BE BASED ON THE PRIMARY CLINICAL RECORDS. [employer] provides no warranty or guarantee of the accuracy or completeness of information in this document.
== END 2023-12-06 01:15 | disposition left against medical advice (07) ==
LOC: ED 01:20
PROVIDERS: PCP Family Medicine
DX: Z53.21 Procedure and treatment not carried out due to patient leaving prior to being seen by health care provider (principal)
CPT/HCPCS: 99284

== ENCOUNTER 2023-12-06 01:56 | Emergency (ER) | payer MEDICAID, SELFPAY ==
[2023-12-06 01:56] VITALS: BP 173/106; PULSE 107; RESP 20; TEMP 36.3; O2SAT 100; BMI 43.4
--- NOTE | 2023-12-06 02:36 | RAD_ITS ---
INDICATION: ? Melissa-Tom tear EXAMINATION/TECHNIQUE: X-RAY - XR Neck Soft Tissue COMPARISON: None. FINDINGS: No prevertebral soft tissue thickening. No evidence of pneumomediastinum. No tracheal membranes. No subcutaneous emphysema. Lateral view is obliqued. Epiglottis is within normal limits for projection. Lung apices are clear. No acute osseous finding. RAD/Neck for Soft Tissue IMPRESSION: No evidence of pneumomediastinum.. Electronically Signed: Dylan Parish MD at 3:52 EDT ,
--- NOTE | 2023-12-06 02:36 | RAD_ITS ---
INDICATION: abd pain EXAMINATION/TECHNIQUE: X-RAY - XR Abdomen Series W/ Chest 1 View: PA chest with AP abdomen COMPARISON: Neck radiograph on same day FINDINGS: LINES/DEVICES: None. --Chest: LUNGS: No consolidation, florid edema, or effusion. No pneumothorax. MEDIASTINUM AND CARDIOVASCULAR STRUCTURES: Cardiac silhouette not enlarged. No evidence of pneumomediastinum. BONES AND SOFT TISSUES: No acute findings. --Abdomen: BOWEL GAS PATTERN: Non-obstructive. No fotcal stomach or bowel distention. FREE AIR: None visualized. ORGANOMEGALY: Not seen. CALCIFICATIONS: No concerning calcifications. BONES AND SOFT TISSUES: No acute findings. RAD/Acute Abdomen Inc Chest IMPRESSION: No evidence of acute cardiopulmonary process. Nonobstructive bowel gas pattern. Electronically Signed: Dylan Parish MD at 3:56 EDT ,
--- OUTSIDE RECORDS SUMMARY | 2023-12-06 03:04 | XMS RPT_ITS | CCD ---
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 Name Role Phone Leobardo AZAR, Anthony Lan Primary Care Provider OCPrimary Care, [facility] [place] Primary Car e Provider MD Geovany [place] Emergency Provider Doctor, ED Emergency Provider Unavailable AA NO PCP, NO PCP Primary Care Unavailable HELLER DO~[id number], RAYO COATS J Admit ting Unavailable HELLER DO~[id number], RAYO COATS J Atten ding Unavailable JAS TAO Primary Care Unavailable POLLOCK DO~[id number], POLLOCK LATOSHA A Admitting Unavailable GONZALEZ DO~[id number], GONZALEZ MADIHA A Attendin g Unavailable HENRI TAO Primary Care Unavailable GODMAN DO~[id number], GODMAN TODD A Admitting Unavailable GODMAN DO~[id number], ROSELYN SILVERIODNEY A Attending Unavailable ADRIENNE AZAR~[id number], ADRIENNE Walters Admitting Unavailable ADRIENNE AZAR~[id number], ADRIENNE Walters Attending Unavailable AA NO PCP, NO PCP Primary Care Unavailable JAS TAO Primary Care Unavailable GODMAN DO~[id number], GODMAN TODD A Admitting Unavailable GODMAN DO~[id number], GODMAN TODD A Attending Unavailable AA NO PCP, NO PCP Primary Care Unavailable ADRIENNE AZAR~[id number], ADRIENNE Walters Admitting Unavailable ADRIENNE AZAR~[id number], ADRIENNE Walters Attending Unavailable Doctor, ED Attending Unavailable OCPrimary Care, [facility] [place] Primary Car e Unavailable Zachary Armenta Attending Unavailable OCPrimary Care, [facility] [place] Primary Car e Unavailable Anthony Booth Primary Care Provider LEOBARDOANTHONY ESCALANTE Primary Care Unavailabl DANNY Landry [...] sources) Penicillins; Translations: [PENICILLINS] Drug Allergy 3 [facility] (1 source) Penicillin Drug Allergy [facility] Repository (1 source) Penicillins Drug allergy (disorder) 4 [facility] Repository (1 source) Penicillins Propensity to adverse reactions 3 [facility] (2 sources) Penicillin; Translations: [penicillins] Drug Allergy Hives, Rash [facility] Medications Current Medications Medication Drug Class(es) Dates Sig (Normalized) Sig (Original) [id number] 200 actuat albuterol 0.09 mg/actuat metered dose [...] extended release oral tablet (1 source) Uncompetitive S-aptavu-W-aspartat e Receptor Antagonist, Sigma-1 Agonist Start: 01-17-2019 [...] now 0 04/21/2004 Active polyethylene glycol 3350 19054 mg powder for oral solution (2 sources) [...] Start: 03-21-2023 take 1 capsule by mo [facility] three times daily gabapentin (Neurontin) 300 MG [...] 03-24-2023 Episodic Other aftercare (1 source) Other residential (current) drug therapy; Translations: [[facility]ISON CURRENT DRUG THERAPY] Onset: 04-12-2023 Episodic Other [...] 36 11-28-2023 36 No patient response. Closed [address] 11-03-2023 36 My Chart message [address] 10-24-2023 36 Tri Silva APRN - BAM 10/24/23 1:00 PM Note Rx sent for everything except the Zyprexa. This is not a medication I manage or prescribe. Needs to get this from the physician managing this for her. Left a message to return call. [place] [id number] Rx sent for everything except the Zyprexa. This is not a medication I manage or prescribe. Needs to get this from the physician managing this for her. [place] [id number] CSA Lyrica 06/28/23 Hydroxyzine and Zyprexa are not on med list. [place] [address] Ordering provider: Anthony Booth MD Date of last office visit: 06/28/23 Date of next office visit: 10/25/23 Updated/Validated preferred pharmacy: [facility] - [place], [place] - [address] [facility] [phone] Patient instructed to contact the pharmacy prior [...] of last refill (see medication tab): 04/25/23 [facility] 36on 09-05-2023 Luz Puentes missed the appointment scheduled at [facility] today. This appointment will need to be rescheduled. Left a message to return call. [facility] CBC W Auto Differential pane l (Bld)on 09-02-2023 Basophils (Bld) [#/Vol] 0.0 10*3/uL 0.0 - 0.2 10*3/uL [facility] Basophils/100 WBC (Bld) 0.4 % 0.0 - 2.0 % [facility] Eosinophils (Bld) [#/Vol] 0.1 10*3/uL 0.0 - 0.5 10*3/uL [facility] Eosinophils/100 WBC (Bld) 1.4 % 0.0 - 6.0 % [facility] Erythrocyte distribution width (RBC) [Ratio] 14.2 % 11.5 - 15.0 % [facility] Hematocrit (Bld) [Volume fraction] 45.1 % 35.0 - 47.0 % [facility] Hemoglobin (Bld) [Mass/Vol] 15.4 g/dL 11.7 - 16.0 g/dL [facility] Immature granulocytes (Bld) [#/Vol] 0.0 10*3/uL NINF - 0.1 10*3/uL [facility] Immature granulocytes/100 WBC (Bld) 0.3 % 0.0 - 2.0 % [facility] Interpretation and review of laboratory results Normal [facility] Lymphocytes (Bld) [#/Vol] 2.3 10*3/uL 1.0 - 4.3 10*3/uL [facility] Lymphocytes/100 WBC (Bld) 33.0 % 15.0 - 45.0 % [facility] MCH (RBC) [Entitic mass] 31.9 pg 26. 0 - 34.0 pg [facility] MCHC (RBC) [Mass/Vol] 34.1 % 30.5 - 36.0 % [facility] MCV (RBC) [Entitic vol] 93.4 fL 77.0 - 99.0 fL [facility] Monocytes (Bld) [#/Vol] 0.6 10*3/uL 0.0 - 0.9 10*3/uL [facility] Monocytes/100 WBC (Bld) 9.2 % 5.0 - 13.0 % [facility] Neutrophils (Bld) [#/Vol] 3.9 10*3/uL 1.8 - 7.5 10*3/uL [facility] Neutrophils/100 WBC (Bld) 55.7 % 38.0 - 82.0 % [facility] Nucleated RBC/100 WBC (Bld) [Ratio] 0.0 % [facility] Platelet mean volume (Bld) [Entitic vol] 10.7 fL 9.0 - 12.7 fL [facility] Comment on above: MPV is a calculated measurement using platelet volume ratio Platelets (Bld) [#/Vol] 369 10*3/uL 140 - 440 10*3/uL [facility] RBC (Bld) [#/Vol] 4.83 10*6/uL 3.80 - 5.2 0 10*6/uL [facility] WBC (Bld) [#/Vol] 7.0 10*3/uL 3.6 - 10.7 10*3/uL [facility] CBC WITH AUTO DIFFERENTIALon 09-02-2023 Basophils (Bld) [#/Vol] 0.0 10*3/uL Normal 0.0-0.2 [facility] Comment on above: Performed By: #### L [id number] ####Claims Coordinator: MARIXA HOLLAND ([phone])[facility] JE RITTMAN (SWRLAB)[address] [place] [address] [place] Basophils/100 WBC (Bld) 0.4 % Normal 0.0-2.0 [facility] Comment on above: Performed By: #### L [id number] ####Claims Coordinator: MARIXA HOLLAND ([phone])[facility] JE RITTMAN (SWRLAB)[address] [place] [address] [place] Eosinophils (Bld) [#/Vol] 0.1 10*3/uL Normal 0.0-0.5 [facility] Comment on above: Performed By: #### L [id number] ####Claims Coordinator: MARIXA HOLLAND ([phone])[facility] JE RITTMAN (SWRLAB)[address] [place] [address] [place] Eosinophils/100 WBC (Bld) 1.4 % Normal 0.0-6.0 [facility] Comment on above: Performed By: #### L [id number] ####Claims Coordinator: MARIXA [phone])MALIA WOOTEN RITTMAN (SWRLAB)[address] [place] [address] Erythrocyte distribution width (RBC) [Ratio] 14.2 % Normal 11.5-15.0 [facility] Comment on above: Performed By: #### L [id number] ####Claims Coordinator: MARIXA HOLLAND ([phone])[facility] HOSPITALFernie WOOTEN RITTMAN (SWRLAB)[address] [place] [address] Hematocrit (Bld) [Volume fraction] 45.1 % Normal 35.0-47.0 [facility] Comment on above: Performed By: #### L [id number] ####Claims Coordinator: MARIXA HOLLAND ([phone])[facility]ITALFernie WOOTEN RITTMAN (SWRLAB)[address] [place] [address] Hemoglobin (Bld) [Mass/Vol] 15.4 g/dL Normal 11.7-16.0 [facility] Comment on above: Performed By: #### L [id number] ####Claims Coordinator: MARIXA HOLLAND ([phone])[facility]ITALFernie WOOTEN RITTMAN (SWRLAB)[address] [place] [address] IMMATURE GRANS % 0.3 % Normal 0.0-2.0 [facility] Comment on above: Performed By: #### L [id number] ####Claims Coordinator: MARIXA HOLLAND ([phone])[facility]ITALFernie WOOTEN RITTMAN (SWRLAB)[address] [place] [address] IMMATURE GRANS ABSOLUTE 0.0 10*3/uL Normal <0.1 [facility] Comment on above: Performed By: #### L [id number] ####Claims Coordinator: MARIXA HOLLAND ([phone])[facility]ITALFernie WOOTEN RITTMAN (SWRLAB)[address] [place] [address] Lymphocytes (Bld) [#/Vol] 2.3 10*3/uL Normal 1.0-4.3 [facility] Comment on above: Performed By: #### L [id number] ####Claims Coordinator: MARIXA HOLLAND ([phone])MALIA WOOTEN R[place]TMAN (SWRLAB)[address] [place] [address] [place] Lymphocytes/100 WBC (Bld) 33.0 % Normal 15.0-45.0 [facility] Comment on above: Performed By: #### L [id number] ####Claims Coordinator: MARIXA HOLLAND ([phone])[facility]ITALFernie WOOTEN RITTMAN (SWRLAB)[address] [place] [address] MCH (RBC) [Entitic mass] 31.9 pg Normal 26.0-34.0 [facility] Comment on above: Performed By: #### L [id number] ####Claims Coordinator: MARIXA HOLLAND ([phone])[facility]ITALFernie WOOTEN RITTMAN (SWRLAB)[address] [place] [address] MCHC 34.1 % Normal 30.5-36.0 [facility] Comment on above: Performed By: #### L [id number] ####Claims Coordinator: MARIXA HOLLAND ([phone])MALIA WOOTEN R[place]AN (SWRLAB)[address] [place] [address] [place] MCV (RBC) [Entitic vol] 93.4 fL Normal 77.0-99.0 [facility] Comment on above: Performed By: #### L [id number] ####Claims Coordinator: MARIXA HOLLAND ([id number])[facility]ITALFernie WOOTEN RITTMAN (SWRLAB)[address] [place] [address] [place] Monocytes (Bld) [#/Vol] 0.6 10*3/uL Normal 0.0-0.9 [facility] Comment on above: Performed By: #### L [id number] ####Claims Coordinator: MARIXA HOLLAND ([phone])MALIA WOOTEN RITTMAN (SWRLAB)[address] [place] [address] [place] Monocytes/100 WBC (Bld) 9.2 % Normal 5.0-13.0 [facility] Comment on above: Performed By: #### L [id number] ####Claims Coordinator: MARIXA HOLLAND ([phone])MALIA WOOTEN RITTMAN (SWRLAB)[address] [place] [address] NEUTROPHILS ABSOLUTE 3.9 10*3/uL Normal 1.8-7.5 [facility] Comment on above: Performed By: #### L [id number] ####Claims Coordinator: MARIXA HOLLAND ([phone])[facility]ITALFernie WOOTEN RITTMAN (SWRLAB)[address] [place] [address] Neutrophils/100 WBC (Bld) 55.7 % Normal 38.0-82.0 [facility] Comment on above: Performed By: #### L [id number] ####Claims Coordinator: MARIXA HOLLAND ([phone])[facility]ITALFernie WOOTEN RITTMAN (SWRLAB)[address] [place] [address] NRBC 0.0 /100 WBCs Normal 0.0-2.0 [facility] Comment on above: Performed By: #### L [id number] ####Claims Coordinator: MARIXA HOLLAND ([phone])[facility]ITALFernie WOOTEN RITTMAN (SWRLAB)[address] [place] [address] Platelet mean volume (Bld) [Entitic vol] 10.7 fL Normal 9.0-12.7 [facility] Comment on above: Result Comment: MPV is a calculated measurement using platelet volume ratio Performed By: #### L [id number] ####Claims Coordinator: MARIXA HOLLAND ([id number])[facility]ITALFernie WOOTEN RITTMAN (SWRLAB)[address] [place] [address] Platelets (Bld) [#/Vol] 369 10*3/uL Normal 140-440 [facility] Comment on above: Performed By: #### L [id number] ####Claims Coordinator: MARIXA HOLLAND ([phone])[facility]ITALFernie WOOTEN RITTMAN (SWRLAB)[address] [place] [address] RBC (Bld) [#/Vol] 4.83 10*6/uL Normal 3.80-5.20 [facility] Comment on above: Performed By: #### L [id number] ####Claims Coordinator: MARIXA HOLLAND ([id number])[facility]ITALFernie WOOTEN RITTMAN (SWRLAB)[address] [place] [address] WBC (Bld) [#/Vol] 7.0 10*3/uL Normal 3.6-10.7 [facility] Comment on above: Performed By: #### L [id number] ####Claims Coordinator: MARIXA HOLLAND ([phone])[facility]ITALFernie WOOTEN RITTMAN (SWRLAB)[address] [place] [address] CKon 09-02-2023 CK [Catalytic activity/Vol] 63 U/L Normal 30-170 [facility] Comment on above: Performed By: #### L AB62, LAB17, LAB46, ULN013 ####Claims Coordinator: MARIXA HOLLAND ([phone])[facility]ITALFernie WOOTEN RITTMAN (SWRLAB)[address] [place] [address] COMPLETE URINALYSISon 2023 BACTERIA (#/HPF) IN URINE Few Abnormal Negative [facility] Comment on above: Performed By: #### L [id number] ####Claims Coordinator: MARIXA HOLLAND ([id number])[facility]ITALFernie WOOTEN RITTMAN (SWRLAB)[address] [place] [address] BILIRUBIN, TOTAL PRESENCE IN URINE Negative Normal Negative [facility] Comment on above: Performed By: #### L [id number] ####Claims Coordinator: MARIXA HOLLAND ([phone])[facility]ITALFernie WOOTEN RITTMAN (SWRLAB)[address] [place] [address] Clarity (U) Turbid Abnormal Clear [facility] Comment on above: Performed By: #### L [id number] ####Claims Coordinator: MARIXA HOLLAND ([phone])[facility]ITALFernie WOOTEN RITTMAN (SWRLAB)[address] [place] [address] [place] Color (U) Light Yellow Normal Lt. Yellow [facility] Comment on above: Performed By: #### L [id number] ####Claims Coordinator: MARIXA HOLLAND ([phone])[facility]ITALFernie WOOTEN R[place]TMAN (SWRLAB)[address] [place] [address] [place] GLUCOSE (MG/DL) IN URINE Normal Normal Normal (<70 ) [facility] Comment on above: Performed By: #### L [id number] ####Claims Coordinator: MARIXA HOLLAND ([phone])[facility]ITALFernie WOOTEN RITTMAN (SWRLAB)[address] HEMOGLOBIN PRESENCE IN URINE Negative Normal Negative [facility] Comment on above: Performed By: #### L [id number] ####Claims Coordinator: MARIXA HOLLAND ([id number])[facility]ITALFernie WOOTEN RITTMAN (SWRLAB)[address] [place] [address] [place] Ketones Ql (U) Negative Normal Negative [facility] Comment on above: Performed By: #### L [id number] ####Claims Coordinator: MARIXA HOLLAND ([phone])[facility]ITALFernie WOOTEN RITTMAN (SWRLAB)[address] [place] [address] [place] LEUKOCYTE ESTERASE PRESENCE IN URINE BY TEST STRIP 25 Lolita/uL Abnormal Negative [facility] Comment on above: Performed By: #### L [id number] ####Claims Coordinator: MARIXA HOLLAND ([phone])[facility]ITALFernie WOOTEN RITTMAN (SWRLAB)[address] [place] [address] [place] MUCUS (#/LPF) IN URINE SEDIMENT Negative Normal Negative [facility] Comment on above: Performed By: #### L [id number] ####Claims Coordinator: MARIXA HOLLAND ([phone])[facility]ITALFernie WOOTEN RITTMAN (SWRLAB)[address] [place] [address] [place] NITRITE PRESENCE IN URINE Negative Normal Negative [facility] Comment on above: Performed By: #### L [id number] ####Claims Coordinator: MARIXA HOLLAND ([phone])[facility]ITALFernie WOOTEN RITTMAN (SWRLAB)[address] [place] [address] pH (U) 5.5 [pH] Normal 5.0-8.0 [facility] Comment on above: Performed By: #### L [id number] ####Claims Coordinator: MARIXA HOLLAND ([id number])[facility]ITALFernie WOOTEN RITTMAN (SWRLAB)[address] [place] [address] Protein (U) [Mass/Vol] Negative Normal Negative [facility] Comment on above: Performed By: #### L [id number] ####Claims Coordinator: MARIXA HOLLAND ([id number])[facility]ITALFernie HAYESTMAN (SWRLAB)[address] [place] [address] RBC (#/HPF) IN URINE SEDIMENT 0-2 Normal 0-2 [facility] Comment on above: Performed By: #### L [id number] ####Claims Coordinator: MARIXA HOLLAND ([phone])[facility]ITALFernie WOOTEN RITTMAN (SWRLAB)[address] [place] [address] Specific gravity (U) [Rel density] 1.005 Normal 1.005-1.030 [facility] Comment on above: Performed By: #### L [id number] ####Claims Coordinator: MARIXA HOLLAND ([phone])[facility]ITALFernie WOOTEN RITTMAN (SWRLAB)[address] [place] [address] Specimen volume (U) 12 mL Normal [facility] Comment on above: Performed By: #### L [id number] ####Claims Coordinator: MARIXA HOLLAND ([id number])[facility]ITALFernie WOOTEN RITTMAN (SWRLAB)[address] [place] [address] SQUAMOUS EPITHELIAL CELLS (#/HPF) IN URINE SEDIMENT 6-10 Abnormal 3-5 [facility] Comment on above: Result Comment: Few Epithelial cell clumps present Performed By: #### L [id number] ####Claims Coordinator: MARIXA HOLLAND ([id number])[facility]ITALFernie HAYESTMAN (SWRLAB)[address] UROBILINOGEN (MG/DL) IN URINE Normal Normal Normal (0-1) [facility] Comment on above: Performed By: #### L AB347 ####Claims Coordinator: MARIXA HOLLAND ([phone])[facility]ITALFernie HAYESTMAN (SWRLAB)[address] WBC (LEUKOCYTE) (#/HPF) IN URINE SEDIMENT 3-5 Normal 0-5 [facility] Comment on above: Performed By: #### Tres AB347 ####Claims Coordinator: MARIXA HOLLAND ([phone])[facility]ITALFernie HAYESTMAN (SWRLAB)[address] COMPREHENSIVE METABOLIC PANE Atul 09-02-2023 Albumin [Mass/Vol] 4.0 g/dL Normal 3.5-5.0 [facility] Comment on above: Performed By: #### L AB62, LAB17, LAB46, OHG575 ####Claims Coordinator: MARIXA HOLLAND ([phone])[facility]ITALFernie HAYESTMAN (SWRLAB)[address] [place] [address] [place] ALP [Catalytic activity/Vol] 97 U/L Normal 38-126 [facility] Comment on above: Performed By: #### L AB62, LAB17, LAB46, STQ592 ####Claims Coordinator: MARIXA HOLLAND ([phone])[facility]ITALFernie WOOTEN RITTMAN (SWRLAB)[address] ALT [Catalytic activity/Vol] 26 U/L Normal 0-34 [facility] Comment on above: Performed By: #### L AB62, LAB17, LAB46, QPB945 ####Claims Coordinator: MARIXA HOLLAND ([phone])[facility]ITALFernie WOOTEN RITTMAN (SWRLAB)[address] Anion gap [Moles/Vol] 10 mmol/L Normal 3-13 [facility] Comment on above: Performed By: #### L AB62, LAB17, LAB46, OAI720 ####Claims Coordinator: MARIXA HOLLAND ([phone])[facility]ITALFernie WOOTEN RITTMAN (SWRLAB)[address] AST [Catalytic activity/Vol] 34 U/L Normal 15-46 [facility] Comment on above: Performed By: #### Tres ABAlbania, LAB17, LAB46, [id number] ####Claims Coordinator: MARIXA HOLLAND ([phone])[facility]ITALFernie WOOTEN RITTMAN (SWRLAB)[address] Bilirubin [Mass/Vol] 1.7 mg/dL High 0.2-1.3 [facility] Comment on above: Performed By: #### Tres DO62, LAB17, LAB46, KQS898 ####Claims Coordinator: MARIXA HOLLAND ([id number])[facility]ITALFernie SCHULZJE RITTMAN (SWRLAB)[address] [place] [address] [place] Calcium [Mass/Vol] 9.3 mg/dL Normal 8.4-10.4 [facility] Comment on above: Performed By: #### Tres MAY, LAB17, LAB46, PBW153 ####Claims Coordinator: MARIXA HOLLAND ([id number])[facility]ITALFernie WOOTEN RITTMAN (SWRLAB)[address] [place] [address] [place] Chloride [Moles/Vol] 104 mmol/L Normal 98-107 [facility] Comment on above: Performed By: #### L AB62, LAB17, LAB46, JCX756 ####Claims Coordinator: MARIXA HOLLAND ([phone])[facility]ITALFernie SCHULZJE RITTMAN (SWRLAB)[address] [place] [address] [place] CO2 [Moles/Vol] 25 mmol/L Normal 22-30 [facility] Comment on above: Performed By: #### Tres AB62, LAB17, LAB46, DBP129 ####Claims Coordinator: MARIXA HOLLAND ([phone])[facility]ITALFernie WOOTEN RITTMAN (SWRLAB)[address] [place] [address] [place] Creatinine [Mass/Vol] 0.52 mg/dL Normal 0.52-1.04 [facility] Comment on above: Performed By: #### L AB62, LAB17, LAB46, ZDC804 ####Claims Coordinator: MARIXA HOLLAND ([id number])[facility]ITALFernie WOOTEN RITTMAN (SWRLAB)[address] [place] [address] GLOMERULAR FILTRATION RATE ML/MIN/1.73 SQ M.PREDICTED >90.0 Normal >60.0 [facility] Comment on above: Result Comment: Calc ulation based on the Chronic Kidney Disease Epidemiology Collaboration (CKD-EPI) equation refit without adjustment for race Performed By: #### L AB62, LAB17, LAB46, SCB810 ####Claims Coordinator: MARIXA HOLLAND ([phone])[facility]ITALFernie WOOTEN RITTMAN (SWRLAB)[address] [place] [address] [place] Glucose [Mass/Vol] 88 mg/dL Normal 70-100 [facility] Comment on above: Performed By: #### Tres MAY, LAB17, LAB46, BZO196 ####Claims Coordinator: MARIXA HOLLAND ([phone])[facility]ITALFernie WOOTEN RITTMAN (SWRLAB)[address] [place] [address] [place] Potassium [Moles/Vol] 3.0 mmol/L Low 3.5-5.1 [facility] Comment on above: Performed By: #### L AB62, LAB17, LAB46, DVC481 ####Claims Coordinator: MARIXA HOLLAND ([id number])[facility]ITALFernie WOOTEN RITTMAN (SWRLAB)[address] [place] [address] [place] Protein [Mass/Vol] 7.7 g/dL Normal 6.3-8.2 [facility] Comment on above: Performed By: #### L AB62, LAB17, LAB46, XZA520 ####Claims Coordinator: MARIXA HOLLAND ([phone])[facility]ITALFernie WOOTEN RITTMAN (SWRLAB)[address] Sodium [Moles/Vol] 138 mmol/L Normal 135-145 [facility] Comment on above: Performed By: #### L AB62, LAB17, LAB46, XKY242 ####Claims Coordinator: MARIXA HOLLAND ([id number])[facility]ITALF[facility]ie HAYESTMAN (SWRLAB)[address] Urea nitrogen [Mass/Vol] 10 mg/dL Normal 7-17 [facility] Comment on above: Performed By: #### L AB62, LAB17, LAB46, LKX671 ####Claims Coordinator: MARIXA HOLLAND ([phone])[facility] HOSPITALeFrnie HAYESTMAN (SWRLAB)[address] Comprehensive metabolic 1998 panelon 09-02-2023 Albumin [Mass/Vol] 4.0 g/dL 3.5 - 5.0 g/dL [facility] ALP [Catalytic activity/Vol] 97 U/L 38 - 126 U/L [facility] ALT [Catalytic activity/Vol] 26 U/L 0 - 34 U/L [facility] Anion gap [Moles/Vol] 10 mmol/L 3 - 13 mmol/L [facility] AST [Catalytic activity/Vol] 34 U/L 15 - 46 U/L [facility] Bilirubin [Mass/Vol] 1.7 mg/dL High 0.2 - 1 .3 mg/dL [facility] Calcium [Mass/Vol] 9.3 mg/dL 8.4 - 10. 4 mg/dL [facility] Chloride [Moles/Vol] 104 mmol/L 98 - 10 7 mmol/L [facility] CO2 [Moles/Vol] 25 mmol/L 22 - 30 mmol/L [facility] Creatinine [Mass/Vol] 0.52 mg/dL 0.52 - 1.04 mg/dL [facility] GFR/1.73 sq M.predicted MDRD (S/P/Bld) [Vol rate/Area] - PINF [facility] Comment on above: Calculation based on the Chronic Kidney Disease Epidemiology Collaboration (CKD-EPI) equation refit without adjustment for race Glucose [Mass/Vol] 88 mg/dL 70 - 100 mg/dL [facility] Interpretation and review of laboratory results Abnormal [facility] Potassium [Moles/Vol] 3.0 mmol/L Low 3.5 - 5.1 mmol/L [facility] Protein [Mass/Vol] 7.7 g/dL 6.3 - 8.2 g/dL [facility] Sodium [Moles/Vol] 138 mmol/L 135 - 145 mmol/L [facility] Urea nitrogen [Mass/Vol] 10 mg/dL 7 - 17 mg/d L [facility] DRUGS OF ABUSEon 09-02-2023 AMPHETAMINE SCREEN Positive Normal [facility] Comment on above: Performed By: #### L [id number] ####Claims Coordinator: MARIXA HOLLAND ([phone])[facility] EJ RITTMAN (SWRLAB)[address] [place] [address] BARBITURATES SCREEN Negative Normal [facility] Comment on above: Performed By: #### L [id number] ####Claims Coordinator: MARIXA HOLLAND ([phone])[facility] JE RITTMAN (SWRLAB)[address] [place] [address] BENZODIAZEPINE SCREEN Negative Normal [facility] Comment on above: Performed By: #### L [id number] ####Claims Coordinator: MARIXA HOLLAND ([phone])[facility] JE RITTMAN (SWRLAB)[address] [place] [address] COCAINE METAB. SCREEN Negative Normal [facility] Comment on above: Performed By: #### L [id number] ####Claims Coordinator: MARIXA HOLLAND ([phone])[facility] JE RITTMAN (SWRLAB)[address] [place] [address] METHADONE SCREEN Negative Normal [facility] Comment on above: Performed By: #### L [id number] ####Claims Coordinator: MARIXA HOLLAND ([phone])[facility] JE RITTMAN (SWRLAB)[address] [place] [address] OPIATES SCREEN Negative Normal [facility] Comment on above: Performed By: #### L [id number] ####Claims Coordinator: MARIXA HOLLAND ([phone])[facility] ABIGAILTMAN (SWRLAB)[address] OXYCODONE SCREEN Negative Normal [facility] Comment on above: Performed By: #### L [id number] ####Claims Coordinator: MARIXA HOLLAND ([phone])[facility]OSPITALJEFRED HAYESTMAN (SWRLAB)[address] PHENCYCLIDINE SCREEN Negative Normal [facility] Comment on above: Result Comment: ORDE R [...] under separate order. Performed By: #### L [id number] ####Claims Coordinator: MARIXA HOLLAND ([phone])[facility]ITALFernie BURK (SWRLAB)[address] [place] [address] ED Nursing Noteon 09-02-2023 ED Nursing Note Discharge instructions, follow up care, and pain management discussed with patient. All questions answered, there are no further questions at this time. Patient provided with HOPE bag including detention information and street cards. Patient ambulated off the [facility] independently [facility] to await ride. Adelita Perry RN 09/02/23 1034 Normal [facility] ED Nursing Note Patient to be discharged, patient provided with her cell phone to get a ride home. Adelita Perry RN 09/02/23 0859 Normal [facility] ED Nursing Note Patient awake and alert. [...] plan of care. Adelita Perry RN 09/02/23 0822 [facility] ED Nursing Note Pt initially uncooperative initially. Pt refusing to change in a gown or have labs drawn. Pt finally will allow this nurse to draw labs. Pts personal belongings removed from pt and pt put on a gown. Pt wanded by officer robert. Pt refuses anxiety meds ordered [facility] ED Nursing Note Pt presents to the ED w c/o anxiety. Per pt, pt has been having anxiety all day. Pt denies suicidal thoughts. Pt feels safe at home [facility] ED Provider Noteon ED Provider Note Emergency Department Encounter Location: [facility] ED Patient: Dhaval Moon : 2000 [...] 0510) I Glenn Guerrero MD am the diagnostic imaging manager of record. Final Impression 1. Paranoia (psychosis) (HCC) 2. Hypokalemia 3. Methamphetamine-ind uced psychotic disorder (HCC) DISPOSITION (Please note that portions of this note may have been completed with a voice recognition program. Efforts were made to edit the dictations but occasionally (more content not included)... [facility] ED Provider Note EMERGENCY DEPARTMENT ENCOUNTER Pt [...] she is being followed by people from [place] and that she feels not safe here [...] Resource Strain: Medium Risk (05/22/2020) Received from [facility] Overall Financial Resource Strain (CARDIA) Difficulty of Paying Living Expenses: Somewhat hard Food Insecurity: Food Insecurity Present (06/09/2023) Received from [facility] Hunger Vital Sign Worried About Running Out of Food in the Last Year: Sometimes true Ran Out of Food in the Last Year: Sometimes true Transportation Needs: No Transportation Needs (06/09/2023) Received from [facility] PRAPARE - Transportation Lack of Transportation (Medical): No Lack of Transportation (Non-Medical): No Physical Activity: Inactive (01/23/2019) Received from [facility] Exercise Vital Sign Days of Exercise per Week: 0 days Minutes of Exercise per Session: 0 min Housing Stability: Unknown (06/09/2023) Received from [facility], [facility] Housing Stability Vital Sign Unable to Pay for Housing in the Last Year: No In the last 12 months, was there a time when you did not have a steady place to sleep or slept in a detention (including now)?: No SCREENINGS PHYSICAL EXAM ED [...] RESULTS Procedures/E (more content not included)... Normal [facility] ETHANOLon 09-02-2023 ETHANOL IN SER/PLAS <0.010 Normal 0.000-0.010 [facility] Comment on above: Result Comment: JEAN Juarez COMMENTS: NOTE: This result is for medical treatment only. Analysis performed using non-forensic procedures. Performed By: #### L AB62, LAB17, LAB46, [id number] ####Claims Coordinator: MARIXA HOLLAND ([phone])[facility] (SWRLAB)[address] [place] [address] Ethanol (Bld) [Mass/Vol]on 0 09-02-2023 Ethanol [Mass/Vol] g/dL 0.000 - 0.010 g/dL [facility] HCG QUANTITATIVE BLOODon HCG QUANTITATIVE <2 Normal Females <=5 [facility] Comment on above: Result Comment: JEAN Juarez [...] Performed By: #### L AB62, LAB17, LAB46, [id number] ####Claims Coordinator: MARIXA HOLLAND ([phone])[facility] [place] [address] Laboratory - Chemistry and C hemistry - challengeon 09-02-2023 HCG.beta subunit Qn Females <=5 mIU/mL [facility] CK [Catalytic activity/Vol] 63 U/L 30 - 170 U/L [facility] Laboratory - Drug toxicology on 09-02-2023 Amphetamines Screen method >1000 ng/mL Ql (U) Positive [facility] Barbiturates Screen method >200 ng/mL Ql (U) Negative [facility] Benzodiazepines Ql (U) Negative [facility] Methadone Screen Ql (U) Negative [facility] Opiates Screen Ql (U) Negative [facility] oxyCODONE Ql (U) Negative [facility] Phencyclidine Ql (U) Negative [facility] Laboratory - Microbiology an d Antimicrobial susceptibilityOrdered By: Amari Daily on 09-02-2023 SARS-CoV-2 (COVID-19) Ag IA.rapid Ql (Resp) Negative Negative [facility] [employer] Comment on above: A negative result do es not rule out the possibility of SARS-CoV-2 infection. NAAT-based methods should be considered for symptomatic patients presenting greater than seven days after onset of symptoms. Method: Lateral flow immunoassay. Fact sheets for healthcare providers and patients can be found at the following sites: https://www.[employer].gov/media/171716/download https://www.[employer].gov/ENT Surgical/619670/download No Panel Informationon 09-01 COCAINE METAB. SCREEN Negative [facility] [employer] The expected value for all of the [...] is needed, request confirmation under separate order. [facility] [employer] Values in should double every 2 to [...] or monitor tumors or gestational trophoblastic disease. [facility] Interpretation and review of laboratory results Normal [facility] SARS-COV-2 ANTIGENon 024 SARS-COV-2 ANTIGEN SARS-COV-2 ANTIGEN -BINAX Reference Negative Negative A negative result does not rule out the possibility of SARS-CoV-2 infection. NAAT-based methods should be considered for symptomatic patients presenting greater than seven days after onset of symptoms. Method: Lateral flow immunoassay. Fact sheets for healthcare providers and patients can be found at the following sites: https://www.[employer].gov /media/099243/downl oad https://www.[employer].gov /media/236110/downl oad Normal [facility] Comment on above: Performed By: #### L [id number] #### Claims Coordinator: MARIXA HOLLAND ([id number]) [facility] ([facility]) [address] [place] [address] SARS-CoV-2 (COVID-19) Ag IA. rapid Ql (Resp)Ordered By: Amari Daily on 09-02-2023 Interpretation and review of laboratory results Normal [facility] Urinalysis complete panel (U )on 09-02-2023 Bacteria LM.HPF (Urine sed) [#/Area] Few Abnormal Negative /HPF [facility] Bilirubin Ql (U) Negative Negative mg/dL [facility] Clarity (U) Turbid Abnormal Clear [facility] Color (U) Light Yellow Lt. Yellow [facility] Epithelial cells.squamous LM.HPF (Urine sed) [#/Area] 6-10 [facility]normal [facility] Comment on above: Few Epithelial cell clumps present Glucose Ql (U) Normal Normal (<70) mg/dL [facility] Hemoglobin Ql (U) Negative Negative mg/dL [facility] Interpretation and review of laboratory results Abnormal [facility] Ketones (U) [Mass/Vol] Negative Negat kimberly mg/dL [facility] Leukocyte esterase Test strip Ql (U) 25 Abnormal Negative Lolita/uL [facility] Mucus LM.HPF (Urine sed) [#/Area] Negative Negative /LPF [facility] Nitrite Ql (U) Negative Negative [facility] pH (U) 5.5 [pH] 5.0 - 8.0 pH [facility] Protein (U) [Mass/Vol] Negative Negat kimberly mg/dL [facility] RBC LM.HPF (Urine sed) [#/Area] 0-2 [facility] Specific gravity (U) [Rel density] 1.005 1.005 - 1.030 [facility] Urobilinogen (U) [Mass/Vol] Normal Normal (0-1) mg/dL [facility] Volume, Urine [facility] LM.HPF (Urine sed) [#/Area] 3-5 [facility] 36on 08-31-2023 36 Left a message to return call to [facility] for appointment with Dr. Booth on 09/04/23. If the patient calls back during business hours, please transfer to our backline. Otherwise, Please arrive 15 minutes early with your insurance card and photo ID. Thank you! [facility] 36on 08-28-2023 36 Rx sent. OARRS report reviewed with no discrepancies. CSA signed in June 2023. Follow up as scheduled. [facility] 36 Looks like she is already scheduled for 09/04/23. [facility] 36on 08-25-2023 36 Ordering provider: Dr Booth [...] of last refill (see medication tab): 03/21/23 [facility] 08-24-2023 36 LM for nursing dept at [facility] - we need to know when pt will be discharged and get her and appt with Dr Booth I did give them the back line number to call the office [facility] 08-22-2023 36 thank you, keep follow-up appointment [facility] 08-21-2023 36 Patient with illicit drug use. Lyrica prescription will need to be re-evaluated. Please make sure patient has follow up scheduled with Dr. Booth after her discharge from [place]. [facility] 08-19-2023 36 Name of caller: Dhaval Moon Contact phone number: [phone] ([place]) Relationship to Patient: patient Provider: Dr. 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 She was taken to [facility] and pink slipped. There were no local facilities taking patients, so she was sent to [facility] in [place]. While there, she has been struggling with pain and hasn't been receiving her medications. She is hoping Dr. Booth might be available to review her medications with [facility] or possibly help her get reevaluated so she can leave sooner rather than later. Best time of day caller can be reached: Any Patient advised that office/PCP has 24-48 business hours to return their call: Yes Normal [facility] .Urinalysis Microscopic (AO) on 08-18-2023 UA Bacteria 1+ /hpf Abnormal [facility] ([place] Comment on above: Performed By: #### U FENTS, UOXYS ####[place] [address]#### PREGU, UDRUG, UAMICAO, UA ####[address] [place], [place] [address] UA RBC 0-5 Abnormal None Seen [facility] ([place] Comment on above: Performed By: #### U FENTS, UOXYS ####[place] [address]#### PREGU, UDRUG, UAMICAO, UA ####[address] [place], [place] [address] UA Squam Epithelial 5-10 Abnormal None Seen [facility] ([place]) Comment on above: Performed By: #### U FENTS, UOXYS ####[place] [address]#### PREGU, UDRUG, UAMICAO, UA ####[address] [place], [place] [address] UA WBC 5-10 Abnormal None Seen [facility] ([place] Comment on above: Performed By: #### U FENTS, UOXYS ####[place] [address]#### PREGU, UDRUG, UAMICAO, UA ####[address] [place], [place] [address] LABORATORYOrdered By: Lazara Ca on 08-18-2023 Amphetamines [...] HCG ( test) Ql (U) Negative Normal [facility] ([place] Comment on above: Performed By: #### U FENTS UOXYS ####[address] [address]#### PREGU, UDRUG, UAMICAO, UA ####[facility] [place], [place] [address] test (u) int Not detected Invalid Interpretation Code [facility] ([place]) Comment on above: Performed By: #### U FENTS, UOXYS ####[place] [address]#### PREGU, UDRUG, UAMICAO, UA ####Al[place] [address] [place], [place] [address] UAon 08-18-2023 Color (U) Dark yellow Normal [facility] ([place]) Comment on above: Performed By: #### U FENTS, UOXYS ####[place] [address]#### PREGU, UDRUG, UAMICAO, UA ####[place] [id number] [place] [address] Glucose (U) [Mass/Vol] Negative Normal Negative [facility] ([place]) Comment on above: Performed By: #### U FENTS, UOXYS ####[place] [address]#### PREGU, UDRUG, UAMICAO, UA ####[address] [place] [address] Ketones Ql (U) >=160 Abnormal Negative [facility] ([place] Comment on above: Performed By: #### U FENTS, UOXYS ####[place] [address]#### PREGU, UDRUG, UAMICAO, UA ####[address] [place] [address] UA Appear Clear Normal Clear [facility] ([place]) Comment on above: Performed By: #### U FENTS, UOXYS ####[place] [address]#### PREGU, UDRUG, UAMICAO, UA ####[address] [place] [address] UA Bili Large Abnormal Negative [facility] ([place]) Comment on above: Performed By: #### U FENTS, UOXYS ####[place] [address]#### PREGU, UDRUG, UAMICAO, UA ####[facility] [address] [place], [place] [address] UA Blood Large Abnormal Negative [facility] ([place] Comment on above: Performed By: #### U FENTS UOXYS ####[place] [address]#### PREGU, UDRUG, UAMICAO, UA ####[place] [address] [place] [address] UA Leuk Est Negative Normal Negative [facility] ([place] Comment on above: Performed By: #### U VÍCTOR UOXYS ####[place] [address]#### PREGU, UDRUG, UAMICAO, UA ####[place]aji [address] [place] [address] UA Nitrite Positive Abnormal Negative [facility] ([place] Comment on above: Performed By: #### U VÍCTOR UOXYS ####[place] [address]#### PREGU, UDRUG, UAMICAO, UA ####Alhaji [address] [place] [address] UA pH 6.0 Normal 5.0 - 8.0 [facility] ([place] Comment on above: Performed By: #### U VÍCTOR UOXYS ####[place] [address]#### PREGU, UDRUG, UAMICAO, UA ####Alhaji [address] [place] [address] UA Protein 30 mg/dL Normal Negative [facility] ([place] Comment on above: Performed By: #### U VÍCTOR UOXYS ####[place] [address]#### PREGU, UDRUG, UAMICAO, UA ####Al[place]aji [address] [place] [address] UA Spec Grav >=1.030 Abnormal 1.015-1.025 [facility] ([place] Comment on above: Performed By: #### U FENTS, UOXYS ####[place] [address]#### PREGU, UDRUG, UAMICAO, UA ####Alhaji [address] [place] [address] UA Specimen Type Clean Catch Normal [facility] ([place] Comment on above: Performed By: #### U FENTS, UOXYS ####[place] [address]#### PREGU, UDRUG, UAMICAO, UA ####[address] [place] [address] UA Urobilinogen 1.0 E.U./dL Normal 0.2-1.0 [facility] ([place] Comment on above: Performed By: #### U FENTS, UOXYS ####[place] [address]#### PREGU, UDRUG, UAMICAO, UA ####Alhaji [address] [place] [address] UDRUGon 08-18-2023 Amphetamine (u) Positive Abnormal Negative [facility] ([place] Comment on above: Performed By: #### U FENTS, UOXYS ####[place] [address]#### PREGU, UDRUG, UAMICAO, UA ####Alhaji [address] [place] [address] Barbiturate (u) Negative Normal Negative [facility] ([place] Comment on above: Performed By: #### U FENTS, UOXYS ####[place] [address]#### PREGU, UDRUG, UAMICAO, UA ####[facility]aji [address] [place] [address] Benzodiazepine (u) Negative Normal Negative [facility] ([place] Comment on above: Performed By: #### U FENTS, UOXYS ####[place] [address]#### PREGU, UDRUG, UAMICAO, UA ####Alhaji [address] [place] [address] Cannabinoid (u) Negative Normal Negative [facility] ([place]) Comment on above: Performed By: #### U FENTS, UOXYS ####[place] [address]#### PREGU, UDRUG, UAMICAO, UA ####[place] [address] [place] [address] Cocaine Ql (U) Negative Normal Negative [facility] ([place]) Comment on above: Performed By: #### U FENTS, UOXYS ####[place] [address]#### PREGU, UDRUG, UAMICAO, UA ####Alhajichun [address] [place] [address] Methadone Ql (U) Negative Normal Negative [facility] ([place]) Comment on above: Performed By: #### U FENTS, UOXYS ####[place] [address]#### PREGU, UDRUG, UAMICAO, UA ####[place] [address] [place] [address] Opiate (u) Negative Normal Negative [facility] ([place]) Comment on above: Performed By: #### U FENTS, UOXYS ####[place] [address]#### PREGU, UDRUG, UAMICAO, UA ####Alhajichun [address] [place] [address] PCP (u) Negative Normal Negative [facility] ([place]) Comment on above: Performed By: #### U FENTS, UOXYS ####[place] [address]#### PREGU, UDRUG, UAMICAO, UA ####Alhajichun [address] [place] [address] Urine Drugs screened: See Below Normal [facility] ([place]) Comment on above: Result Comment: This [...] ONLY. Performed By: #### U KRISTOPHERS UOXYS ####[place] [address]#### PREGU, UDRUG, UAMICAO, UA ####[place] [id number] [place] [id number] UFENTSon 08-18-2023 Fentanyl (u) Negative Normal Negative [facility] ([place] Comment on above: Result Comment: Test ing has been performed FOR MEDICAL PURPOSES ONLY. Performed By: #### U KRISTOPHERS UOXYS ####[place] [address]#### PREGU, UDRUG, UAMICAO, UA ####[place] [id number] UOXYSon 08-18-2023 Oxycodone (u) Negative Normal Negative [facility] ([place] Comment on above: Result Comment: Test ing has been performed FOR MEDICAL PURPOSES ONLY. Performed By: #### U KRISTOPHERS UOXYS ####[place] [address]#### PREGU, UDRUG, UAMICAO, UA ####[place] [id number] .Auto Diffon 08-17-2023 Basophil, Absolute 0.0 10 3/mcL Normal 0.0-0.2 [facility] ([place]) Comment on above: Performed By: #### G FR, TROPHS, ANEU, CMP, CBC, CK, ACETA, ALC, RYANN, ADIFF, MDW #### [place] [address] [place], [place] [address] Basophils/100 WBC (Bld) 0.5 % Normal 0.0-2.5 [facility] ([place] Comment on above: Performed By: #### G FR, TROPHS, ANEU, CMP, CBC, CK, ACETA, ALC, RYANN, ADIFF, YESSI #### [address] [address] Eosinophil, Absolute 0.2 10 3/mcL Normal 0.0-0.4 [facility] ([place] Comment on above: Performed By: #### G FR, TROPHS, ANEU, CMP, CBC, CK, ACETA, ALC, RYANN, ADIFF, MDRosie #### [address] [address] Eosinophils/100 WBC (Bld) 2.8 % Normal 0.0-7.0 [facility] ([place] Comment on above: Performed By: #### G FR, TROPHS, ANEU, CMP, CBC, CK, ACETA, ALC, RYANN, ADIFF, YESSI #### [address] [address] Lymphocyte, Absolute 1.7 10 3/mcL Normal 0.8-3.9 [facility] ([place] Comment on above: Performed By: #### G FR, TROPHS, ANEU, CMP, CBC, CK, ACETA, ALC, RYANN, ADIFF, YESSI #### [address] [address] Lymphocytes/100 WBC (Bld) 21.3 % Normal 10.0-50.0 [facility] ([place] Comment on above: Performed By: #### G FR, TROPHS, ANEU, CMP, CBC, CK, ACETA, ALC, RYANN, ADIFF, YESSI #### [address] [address] Monocyte, Absolute 0.8 10 3/mcL Normal 0.2-1.0 [facility] ([place] Comment on above: Performed By: #### G FR, TROPHS, ANEU, CMP, CBC, CK, ACETA, ALC, RYANN, ADIFF, YESSI #### [address] [address] Monocytes/100 WBC (Bld) 9.4 % Normal 1.7-13.0 [facility] ([place] Comment on above: Performed By: #### G FR, TROPHS, ANEU, CMP, CBC, CK, ACETA, ALC, RYANN, ADIFF, YESSI #### Alh[place] [address] [address] Neutrophils/100 WBC (Bld) 66.0 % Normal 37.0-80.0 [facility] ([place] Comment on above: Performed By: #### G FR, TROPHS, ANEU, CMP, CBC, CK, ACETA, ALC, RYANN, ADJOSS, YESSI #### [address] [address] .GFRon 08-17-2023 GFR 156 ml/min/1.73sqm Normal [facility] ([place] Comment on above: Result Comment: GFR Population [...] CBC, CK, ACETA, ALC, RYANN, ADIFF, YESSI ####[address] [address] GFR Non- 129 ml/min/1.73sqm Normal [facility] ([place] Comment on above: Result Comment: GFR Population [...] CMP, CBC, CK, ACETA, ALC, RYANN, ADIFFYESSI ####[address] [address] .MDWon 08-17-2023 Monocyte Distribution Width 19.16 Normal 0.00-20.00 [facility] ([place] Comment on above: Result Comment: For ED adult patients suspected of sepsis, MDW<=20.0 does not rule out sepsis or risk of sepsis Performed By: #### G FR, TROPHS, ANEU, CMP, CBC, CK, ACETA, ALC, RYANN, ADYESSI COREAS #### [address] [address] .NEUABSon 08-17-2023 Neutrophil, Absolute 5.3 10 3/mcL Normal 2.9-6.2 [facility] ([place] Comment on above: Performed By: #### G FR, TROPHS, ANEU, CMP, CBC, CK, ACETA, ALC, RYANN, ADIFFYESSI #### [address] [address] ACETAon 08-17-2023 Acetaminophen [Mass/Vol] 0.0 ug/mL Low 10.0-30.0 [facility] ([place] Comment on above: Performed By: #### G FR, TROPHS, ANEU, CMP, CBC, CK, ACETA, ALC, RYANN, ADIFFYESSI ####[address] [address] Ger 08-17-2023 Ethanol Level <3 Normal 0-3 [facility] ([place] Comment on above: Performed By: #### G FR, TROPHS, ANEU, CMP, CBC, CK, ACETA, ALC, RYANN, ADIFF, YESSI #### [address] [address] CBCon 08-17-2023 Erythrocyte distribution width (RBC) [Ratio] 15.1 % High 11.5-14.5 [facility] ([place] Comment on above: Performed By: #### G FR, TROPHS, ANEU, CMP, CBC, CK, ACETA, ALC, RYANN, ADIFF, YESSI #### [place] [id number] Hematocrit (Bld) [Volume fraction] 48.9 % High 37.0-47.0 [facility] ([place] Comment on above: Performed By: #### G FR, TROPHS, ANEU, CMP, CBC, CK, ACETA, ALC, RYANN, ADJOSS, YESSI #### [place] [address] Hgb 16.3 G/dL High 12.0-16.0 [facility] ([place] Comment on above: Performed By: #### G FR, TROPHS, ANEU, CMP, CBC, CK, ACETA, ALC, RYANN, ADJOSS, YESSI #### [address] [address] [facility] (RBC) [Entitic mass] 32.1 pg High 27.0-31.2 [facility] ([place] Comment on above: Performed By: #### G FR, TROPHS, ANEU, CMP, CBC, CK, ACETA, ALC, RYANN, ADIFF, YESSI #### [address] [address] MCHC 33.3 G/dL Normal 33.0-37.0 [facility] ([place] Comment on above: Performed By: #### G FR, TROPHS, ANEU, CMP, CBC, CK, ACETA, ALC, RYANN, ADIFF, YESSI #### [address] [address] MCV (RBC) [Entitic vol] 96.4 fL High 80.0-94.0 [facility] ([place] Comment on above: Performed By: #### G FR, TROPHS, ANEU, CMP, CBC, CK, ACETA, ALC, RYANN, ADIFF, YESSI #### [address] [address] Platelet 208 10 3/mcL Normal 130-400 [facility] ([place] Comment on above: Performed By: #### G FR, TROPHS, ANEU, CMP, CBC, CK, ACETA, ALC, RYANN, ADIFF, YESSI #### [address] [address] Platelet mean volume (Bld) [Entitic vol] 9.0 fL Normal 7.4-10.4 [facility] ([place] Comment on above: Performed By: #### G FR, TROPHS, ANEU, CMP, CBC, CK, ACETA, ALC, RYANN, ADIFF, YESSI #### [address] [address] RBC 5.07 10 6/mcL Normal 4.20-5.40 [facility] ([place] Comment on above: Performed By: #### G FR, TROPHS, ANEU, CMP, CBC, CK, ACETA, ALC, RYANN, ADIFF, YESSI #### [address] [address] WBC 8.1 10 3/mcL Normal 4.6-10.8 [facility] ([place] Comment on above: Performed By: #### G FR, TROPHS, ANEU, CMP, CBC, CK, ACETA, ALC, RYANN, ADIFFYESSI #### [address] [address] CKon 08-17-2023 CK [Catalytic activity/Vol] 96 U/L Normal 26-192 [facility] ([place] Comment on above: Performed By: #### G FR, TROPHS, ANEU, CMP, CBC, CK, ACETA, ALC, RYANN, ADIFF, YESSI #### [address] [address] CMPon 08-17-2023 Albumin Level 3.6 G/dL Normal 3.5-5.0 [facility] ([place] Comment on above: Performed By: #### G FR, TROPHS, ANEU, CMP, CBC, CK, ACETA, ALC, RYANN, ADYESSI COREAS #### [address] [address] Albumin/Globulin [Mass ratio] 0.8 {ratio} Low 1.1-2.5 [facility] ([place] Comment on above: Performed By: #### G FR, TROPHS, ANEU, CMP, CBC, CK, ACETA, ALC, RYANN, ADIFF, YESSI #### [address] [address] ALP [Catalytic activity/Vol] 101 U/L Normal 40-135 [facility] ([place] Comment on above: Performed By: #### G FR, TROPHS, ANEU, CMP, CBC, CK, ACETA, ALC, RYANN, ADIFFYESSI #### [place] [address] ALT [Catalytic activity/Vol] 36 U/L Normal 14-59 [facility] ([place] Comment on above: Performed By: #### G FR, TROPHS, ANEU, CMP, CBC, CK, ACETA, ALC, RYANN, ADYESSI COREAS #### [address] [address] AST [Catalytic activity/Vol] 50 U/L High 10-40 [facility] ([place] Comment on above: Performed By: #### G FR, TROPHS, ANEU, CMP, CBC, CK, ACETA, ALC, RYANN, ADIFFYESSI #### [address] [address] Bili Total 3.1 mg/dL High 0.2-1.0 [facility] ([place] Comment on above: Result Comment: Use of this assay is not recommended for patients undergoing treatment with eltrombopag due to the potential for falsely elevated results. Performed By: #### G FR, TROPHS, ANEU, CMP, CBC, CK, ACETA, ALC, RYANN, ADIFF, YESSI #### [place] [id number] BUN/Creatinine Ratio 26 ratio Normal 7-27 [facility] ([place] Comment on above: Performed By: #### G FR, TROPHS, ANEU, CMP, CBC, CK, ACETA, ALC, RYANN, ADIFF, YESSI #### [address] [address] Calcium [Mass/Vol] 9.6 mg/dL Normal 8.4-10.2 [facility] ([place] Comment on above: Performed By: #### G FR, TROPHS, ANEU, CMP, CBC, CK, ACETA, ALC, RYANN, ADIFF, YESSI #### [place] [address] Chloride [Moles/Vol] 99 mmol/L Normal 98-107 [facility] ([place] Comment on above: Performed By: #### G FR, TROPHS, ANEU, CMP, CBC, CK, ACETA, ALC, RYANN, ADIFF, YESSI #### [address] [address] CO2 [Moles/Vol] 20 mmol/L Low 22-29 [facility] ([place] Comment on above: Performed By: #### G FR, TROPHS, ANEU, CMP, CBC, CK, ACETA, ALC, RYANN, ADIFF, YESSI #### [place] [address] Creatinine [Mass/Vol] 0.58 mg/dL Normal 0.55-1.02 [facility] ([place] Comment on above: Performed By: #### G FR, TROPHS, ANEU, CMP, CBC, CK, ACETA, ALC, RYANN, ADIFF, YESSI #### [address] [address] Electrolyte Balance 18.0 mEq/L High 4.0-15.0 [facility] ([place] Comment on above: Performed By: #### G FR, TROPHS, ANEU, CMP, CBC, CK, ACETA, ALC, RYANN, ADIFF, YESSI #### [place] [address] Globulin 4.6 G/dL Normal [facility] ([place] Comment on above: Performed By: #### G FR, TROPHS, ANEU, CMP, CBC, CK, ACETA, ALC, RYANN, YESSI TOBIAS #### [address] [address] Glucose [Mass/Vol] 79 mg/dL Normal 70-105 [facility] ([place] Comment on above: Performed By: #### G FR, TROPHS, ANEU, CMP, CBC, CK, ACETA, ALC, RYANN, ADJOSS, YESSI #### [address] [address] Potassium [Moles/Vol] 3.1 mmol/L Low 3.5-5.1 [facility] ([place] Comment on above: Performed By: #### G FR, TROPHS, ANEU, CMP, CBC, CK, ACETA, ALC, RYANN, ADYESSI COREAS #### [address] [address] Sodium [Moles/Vol] 137 mmol/L Normal 136-145 [facility] ([place] Comment on above: Performed By: #### G FR, TROPHS, ANEU, CMP, CBC, CK, ACETA, ALC, RYANN, ADYESSI COREAS #### [address] [address] Total Protein 8.2 G/dL Normal 6.4-8.2 [facility] ([place] Comment on above: Performed By: #### G FR, TROPHS, ANEU, CMP, CBC, CK, ACETA, ALC, RYANN, YESSI TOBIAS #### [address] [address] Urea nitrogen [Mass/Vol] 15 mg/dL Normal 7-18 [facility] ([place] Comment on above: Performed By: #### G FR, TROPHS, ANEU, CMP, CBC, CK, ACETA, ALC, RYANN, ADJOSS, YESSI #### [address] [address] CVFLURVon 08-17-2023 FLU A PCR Negative Normal Negative [facility] ([place] Comment on above: Performed By: #### C VFLURV #### [address] [address] FLU B PCR Negative Normal Negative [facility] ([place] Comment on above: Performed By: #### C VFLURV #### [address] [address] RSV PCR Negative Normal Negative [facility] ([place] Comment on above: Performed By: #### C VFLURV #### [address] [address] SARS-CoV-2 (COVID-19) RNA AZALEA+probe Ql (Unsp spec) Negative Normal Negative [facility] ([place] Comment on above: Result Comment: Resu lts [...] results. Performed By: #### C VFLURV #### [address] [address] LABORATORYOrdered By: Norberto Rhoades on 08-17-2023 Acetaminophen [...] ng/L Male: 0-76 ng/L Testing performed on Kontest EXL using a homogeneous sandwich chemiluminescent immunoassay based on Mixbook technology. Urea nitrogen [Mass/Vol] 15 mg/dL Normal 7 - 18 mg/d L AO ADM SS Urea nitrogen/Creatinine [Mass ratio] 26 ratio Normal 7 - 27 ratio AO ADM SS WBC (Bld) [#/Vol] 8.1 103/mcL Normal 4.6 - 10.8 10^3/mcL AO Workflow SS SALon 08-17-2023 Salicylate Level <0.2 Low 2.8-20.0 [facility] ([place] Comment on above: Performed By: #### G FR, TROPHS, ANEU, CMP, CBC, CK, ACETA, ALC, RYANN, ADIFF, MDW ####[address] [place], [place] [address] [facility] 08-17-2023 High Sensitivity Troponin I 13 ng/L Normal 0-51 [facility] ([place] Comment on above: Result Comment: High Sensitive Troponin I Reference Ranges: Female: 0-51 ng/L Male: 0-76 ng/L Testing performed on Kontest EXL using a homogeneous sandwich chemiluminescent immunoassay based on Mixbook technology. Performed By: #### G FR, TROPHS, ANEU, CMP, CBC, CK, ACETA, ALC, RYANN, MD JATINDERW #### [address] [address] 36on 07-03-2023 36 Message released to patient as written. Patient's further questions if applicable: Blood sugar and chemistry are essentially normal, liver tests are almost back to completely normal. Cholesterol is excellent. Left a message to return call. Mailed letter to contact the office. Were all questions from office addressed or relayed to the patient from encounter: Yes [facility] 36 ----- Message from Anthony Booth MD sent at 06/29/2023 6:25 AM EDT ----- Blood sugar and chemistry are essentially normal, liver tests are almost back to completely normal. Cholesterol is excellent. Left a message to return call. Mailed letter to contact the office. Normal [facility] 36on 06-30-2023 36 Left a message to return call. Normal [facility] 36on 06-29-2023 36 LM to return call Normal [facility] 36 ----- Message from Anthony Booth MD sent at 06/29/2023 6:25 AM EDT ----- Blood sugar and chemistry are essentially normal, liver tests are almost back to completely normal. Cholesterol is excellent. Normal [facility] Office Visiton 06-28-2023 Follow-up visit [id number] Dhaval Moon 2000 F Date Provider Department Center 06/28/2023 [id number][facility]Y [facility] Family History Problem Relation Age of Onset High Blood Pressure Father No Known Problems Mother Family Status - Relation Status Age at Father Alive Mother Alive Level of Service:14898 MA OFFICE/OUTPATIENT ESTABLISHED MOD MDM 30 MIN Reason for Visit and Comments: ER Follow-up [831] - [facility] ED- 06/17/23 Intoxication hallucinations Hospital Follow-up [832] - [facility] 06/07-06/10/23 Alcohol withdrawal syndrome Health Maintenance [872] - Pcv 20 vaccine- refuse Varicella vaccine- had chicken pox Hpv vaccine- refuse Hep c screening- refuse Covid vaccine- not done Pap- not done and not ready for one Med Refill [425052] Fatigue [46] Normal [facility] Progress Noteon 06-28-2023 Progress Note Partial remission, continue Zoloft 100 mg daily Normal [facility] Progress Note Stable, will recheck labs today. Normal [facility] Progress Note Partial remission, continue Zoloft 100 mg daily Normal [facility] Progress Note Stable, continue albuterol as needed. Normal [facility] Progress Note Patient verified by last name and date of . Normal [facility] Progress Note 06/28/2023 Dhaval Moon (: 2000) is a 22 y.o. female , Established patient, here for evaluation of the following chief complaint(s): ER Follow-up ([facility] ED- 06/17/23/Intoxication /hallucinations), Hospital Follow-up ([facility] 06/07-06/10/23/Alcoho l withdrawal syndrome), Health [...] panel 7. Controlled drug dependence (HCC) - [facility] ([facility]) Follow up in about 3 months (around 09/28/2023). SUBJECTIVE/OBJECTIV E: HELEN Bryan comes in today for follow-up on her asthma, hypothyroidism, anxiety and depression, she has elevated transaminase levels that she needs rechecked. And she is on a controlled medication and needs a drug screen. She seems to be doing better she is living in a women detention and she has lost another 14 pounds. [...] note. Anthony Booth MD 06/28/2023 3:24 PM [facility] 36on 06-27-2023 36 Left a message to return call to [facility] for appointment with Dr. Booth on 06/28/23. If the patient calls back during business hours, please transfer to our backline. Otherwise, Please arrive 15 minutes early with your insurance card and photo ID. Thank you! [facility] [id number] 06-21-2023 [id number] Pt scheduled on 06/28/23 [facility] 36on 06-21-2023 36 Okay, thank you [facility] 36 Pt is scheduled to come into the office on 06/28/23 [place] [address] Will attempt to call this afternoon and/or tomorrow, since attempt was made this morning. [place] [address] We have been unable to reach your patient to schedule their testing. Test Name: Therapy 1st Attempt: 04-13-23 2nd Attempt: 06-21-23 [facility] 36 Pt scheduled 06/28/23 [place] [address]on 06-20-2023 36 Medication name: sertraline (Zoloft) 100 [...] 04/1223 Updated/Validated preferred pharmacy: Yes [id number] Patient instructed to contact the pharmacy prior to picking up the medication: Yes [place] [address] Patient also needs to schedule a follow up visit in office. [place] [address] MCM sent to patient. Awaiting response. [facility] 36on 06-19-2023 36 Rx sent, OARRS report done, no inconsistencies, needs to sign a CS agreement [place] [address] Pended. Lyrica-NO ANKIT on file. Last filled 04/25/23 [facility] ED NOTEon 06-18-2023 ED NOTE HNO ID: [id number] Author: KATHRINE DENNEY, RN Service: Emergency Medicine Author Type: Registered Nurse Type: ED Notes Filed: 06/18/2023 06:15 Note Text: Bus pass given [facility] ED PROV NOTEon 06-18-2023 ED PROV NOTE HNO ID: [id number] Author: DANNY TRAN MD Service: ? Author [...] PAGER/CONTACT #: DANNY TRAN 06/18/23 0558 Normal [facility] Ethanol [Mass/Vol] 0.061 gm/dL High <0.010 [facility] Comment on above: Order Comment: Speci men Type: BLOOD SPECIMEN Ordering Facility: [facility] Address: [address] [place] [address] Performed By: #### 3 4528-0, 70578-3 #### [facility] CLIA [id number] [facility] [place] [address] [place] Ethanol [Mass/Vol] 0.193 gm/dL High <0.010 [facility] Comment on above: Order Comment: Speci men Type: BLOOD SPECIMEN Ordering Facility: [facility] Address: [address] [place] [address] Performed By: #### 3 4528-0, 53748-8 #### [facility] CLIA [id number] [facility] [place] [place] [address] [place] 3606-17-2023 36 S: Patient spoke with [facility] nurse regarding Medication Question (PAL Note) [...] her feet hurt. R: Upon review of [employer] med list she does have a refill left on the Albuterol Inhaler. This was verified for the patient. Spoke with Electric Motor Repairer at [facility] and they will fill this for [...] prescription Protocols used: Medication Refill and Renewal [id number] Acetaminophen [Mass/Vol] ug/mL Low 10-30 [facility] Comment on above: Order Comment: Speci men Type: BLOOD SPECIMEN Ordering Facility: [facility] Address: [address] [place] [address] Result Comment: Toxi c > 50 ug/mL 4 hours post ingestion The Kassandra Richardson nomogram can be used to estimate the probability of hepatotoxicity via the relationship of plasma acetaminophen concentration to the post ingestion interval. (Rukhsana. Pediatrics. 1975. 55:871 to 876 and Rumack et al. Arch Glass Blowing Lathe Operator Med. 1981. 141:380 to 385). Reference ranges and high/low indicator flags are provided as general guidelines only. The treating physician must determine appropriate target levels/dosing based on the specific clinical situation. Performed By: #### 3 4528-0, 79708-2 #### [facility] CLIA [id number] [address] [place] [address] [place] CBC panel Auto (Bld)on 06-16 Erythrocyte distribution width (RBC) [Ratio] 13.1 % Normal 11.5-15.0 [facility] Comment on above: Order Comment: Speci men Type: BLOOD SPECIMEN Ordering Facility: [facility] Address: [address] [place] [address] Performed By: #### 3 4528-0, 86355-3 #### [facility] CLIA [id number] [address] [place] [address] [place] Hematocrit (Bld) [Volume fraction] 52.2 % High 36.0-46.0 [facility] Comment on above: Order Comment: Speci men Type: BLOOD SPECIMEN Ordering Facility: [facility] Address: [address] [place] [address] Performed By: #### 3 4528-0, 12261-5 #### [facility] CLIA [id number] [address] [place] [address] [place] Hemoglobin (Bld) [Mass/Vol] 17.1 g/dL High 11.5-15.5 [facility] Comment on above: Order Comment: Speci men Type: BLOOD SPECIMEN Ordering Facility: [facility] Address: [address] [place] [address] Performed By: #### 3 4528-0, 75564-7 #### [facility] CLIA [id number] [address] [place] [address] [place] MCH (RBC) [Entitic mass] 32.3 pg Normal 26.0-34.0 [facility] Comment on above: Order Comment: Speci men Type: BLOOD SPECIMEN Ordering Facility: [facility] Address: [address] [place] [address] Performed By: #### 3 4528-0, 68464-1 #### [facility] CLIA [id number] [address] [place] [address] [place] MCHC (RBC) [Mass/Vol] 32.8 g/dL Normal 30.5-36.0 [facility] Comment on above: Order Comment: Speci men Type: BLOOD SPECIMEN Ordering Facility: [facility] Address: [address] [place] [address] Performed By: #### 3 4528-0, 12271-3 #### [facility] CLIA [id number] [address] [place] [address] [place] MCV (RBC) [Entitic vol] 98.5 fL Normal 80.0-100.0 [facility] Comment on above: Order Comment: Speci men Type: BLOOD SPECIMEN Ordering Facility: [facility] Address: [address] [place] [address] Performed By: #### 3 4528-0, 55279-8 #### [facility] CLIA [id number] [address] [place] [address] [place] Nucleated RBC (Bld) [#/Vol] 10*3/uL Normal <0.01 [facility] Comment on above: Order Comment: Speci men Type: BLOOD SPECIMEN Ordering Facility: [facility] Address: [address] [place] [address] Performed By: #### 3 4528-0, 99697-8 #### [facility] CLIA [id number] [address] [place] [address] [place] Platelet mean volume (Bld) [Entitic vol] 10.7 fL Normal 9.0-12.7 [facility] Comment on above: Order Comment: Speci men Type: BLOOD SPECIMEN Ordering Facility: [facility] Address: [address] [place] [address] Performed By: #### 3 4528-0, 26231-3 #### [facility] CLIA [id number] [address] [place] [address] [place] Platelets (Bld) [#/Vol] 373 10*3/uL Normal 150-400 [facility] Comment on above: Order Comment: Speci men Type: BLOOD SPECIMEN Ordering Facility: [facility] Address: [address] [place] [address] Performed By: #### 3 4528-0, 92696-0 #### [facility] CLIA [id number] [address] [place] [address] [facility] [place] RBC (Bld) [#/Vol] 5.30 10*6/uL High 3.90-5.20 [facility] Comment on above: Order Comment: Speci men Type: BLOOD SPECIMEN Ordering Facility: [facility] Address: [address] [place] [address] Performed By: #### 3 4528-0, 55718-3 #### [facility] [place] [id number] [address] [place] [address] OF [facility] WBC (Bld) [#/Vol] 7.73 10*3/uL Normal 3.70-11.00 [facility] Comment on above: Order Comment: Speci men Type: BLOOD SPECIMEN Ordering Facility: [facility] Address: [address] [place] [address] Performed By: #### 3 4528-0, 13689-1 #### [facility] [place] [id number] [address] [place] [address] [facility] Comprehensive metabolic 2000 panelon 06-17-2023 Albumin [Mass/Vol] 3.9 g/dL Normal 3.2-5.0 [facility] Comment on above: Order Comment: Speci men Type: BLOOD SPECIMEN Ordering Facility: [facility] Address: [address] [place] [address] Performed By: #### 3 4528-0, 02163-1 #### [facility] [place] [id number] [address] [place], [place] [address] [place] ALP [Catalytic activity/Vol] 123 U/L High 45-117 [facility] Comment on above: Order Comment: Speci men Type: BLOOD SPECIMEN Ordering Facility: [facility] Address: [address] [place] [address] Performed By: #### 3 4528-0, 41008-0 #### [facility] CLIA [id number] [address] [place], [place] [address] [place] ALT [Catalytic activity/Vol] 24 U/L Normal 13-61 [facility] Comment on above: Order Comment: Speci men Type: BLOOD SPECIMEN Ordering Facility: [facility] Address: [address] [place] [address] Result Comment: Resu lts may be falsely depressed after the administration of Sulfasalazine and/or Sulfapyridine. Performed By: #### 3 4528-0, 44984-3 #### [facility] CLIA [id number] [address] [place] [address] STATES OF [facility] Anion gap [Moles/Vol] 11 mmol/L Normal 5-16 [facility] Comment on above: Order Comment: Speci men Type: BLOOD SPECIMEN Ordering Facility: [facility] Address: [address] [place] [address] Performed By: #### 3 4528-0, 60823-3 #### [facility] CLIA [id number] [address] [place] [address] [place] AST [Catalytic activity/Vol] 30 U/L Normal 8-34 [facility] Comment on above: Order Comment: Speci men Type: BLOOD SPECIMEN Ordering Facility: [facility] Address: [address] [place] [address] Result Comment: Resu lts may be falsely depressed after the administration of Sulfasalazine and/or Sulfapyridine. Performed By: #### 3 4528-0, 14164-8 #### [facility] CLIA [id number] [address] [place] [address] [place] Bilirubin [Mass/Vol] 0.6 mg/dL Normal 0.2-1.0 [facility] Comment on above: Order Comment: Speci men Type: BLOOD SPECIMEN Ordering Facility: [facility] Address: [address] [place] [address] Performed By: #### 3 4528-0, 69035-7 #### [facility] CLIA [id number] [address] [place] [address] [place] Calcium [Mass/Vol] 9.8 mg/dL Normal 8.5-10.5 [facility] Comment on above: Order Comment: Speci men Type: BLOOD SPECIMEN Ordering Facility: [facility] Address: [address] [place] [address] Performed By: #### 3 4528-0, 92639-8 #### [facility] CLIA [id number] [address] [place] [address] [place] Chloride [Moles/Vol] 100 mmol/L Normal 98-107 [facility] Comment on above: Order Comment: Speci men Type: BLOOD SPECIMEN Ordering Facility: [facility] Address: [address] [place] [address] Performed By: #### 3 4528-0, 56078-0 #### [facility] CLIA [id number] [address] [place] [address] [place] CO2 [Moles/Vol] 31 mmol/L Normal 21-32 [facility] Comment on above: Order Comment: Speci men Type: BLOOD SPECIMEN Ordering Facility: [facility] Address: [address] [place] [address] Performed By: #### 3 4528-0, 25864-3 #### [facility] CLIA [id number] [address] [place] [address] [place] Creatinine [Mass/Vol] 0.44 mg/dL Low 0.51-0.95 [facility] Comment on above: Order Comment: Speci men Type: BLOOD SPECIMEN Ordering Facility: [facility] Address: [address] [place] [address] Result Comment: Jannie ents receiving either N-Acetylcysteine (NAC) or Metamizole prior to venipuncture, may have falsely depressed results. Performed By: #### 3 4528-0, 73876-4 #### [facility] CLIA [id number] [address] [place] [address] [place] Creatinine and Glomerular filtration rate.predicted panel (S/P/Bld) 140 mL/min/1.73m??? Normal >=60 [facility] Comment on above: Order Comment: Janes merlos Type: BLOOD SPECIMEN Ordering Facility: [facility] Address: [address] [place] [address] Result Comment: Mulu mated Glomerular Filtration Rate [...] actual GFR. Performed By: #### 3 4528-0, 68376-1 #### [facility] CLIA [id number] [address] [place] [address] [place] Glucose [Mass/Vol] 103 mg/dL High 70-100 [facility] Comment on above: Order Comment: Janes merlos Type: BLOOD SPECIMEN Ordering Facility: [facility] Address: [address] [place] [address] Result Comment: The [place] [employer] (ADA) provides guidance for cutoff [...] Standards of Medical Care in Diabetes 2016, [place] [employer]. Diabetes Care. 2016.39(Suppl 1). Results may be falsely elevated after the administration of Sulfapyridine. Results may be falsely depressed after the administration of Sulfasalazine. Performed By: #### 3 4528-0, 49823-3 #### [facility] CLIA [id number] [address] [place] [address] [place] Potassium [Moles/Vol] 3.3 mmol/L Low 3.5-5.1 [facility] Comment on above: Order Comment: Speci men Type: BLOOD SPECIMEN Ordering Facility: [facility] Address: [address] [place] [address] Performed By: #### 3 4528-0, 07882-2 #### [facility] CLIA [id number] [address] [place] [address] [place] Protein [Mass/Vol] 8.7 g/dL High 6.0-8.5 [facility] Comment on above: Order Comment: Speci men Type: BLOOD SPECIMEN Ordering Facility: [facility] Address: [address] [place] [address] Performed By: #### 3 4528-0, 13794-8 #### [facility] CLIA [id number] [address] [place] [address] [place] Sodium [Moles/Vol] 142 mmol/L Normal 136-145 [facility] Comment on above: Order Comment: Speci men Type: BLOOD SPECIMEN Ordering Facility: [facility] Address: [address] [place] [address] Performed By: #### 3 4528-0, 86646-9 #### [facility] CLIA [id number] [address] [place] [address] [place] Urea nitrogen [Mass/Vol] mg/dL Low 7-26 [facility] Comment on above: Order Comment: Speci men Type: BLOOD SPECIMEN Ordering Facility: [facility] Address: [address] [place] [address] Performed By: #### 3 4528-0, 80061-4 #### [facility] CLIA [id number] [address] [place] [address] [place] ECG COMPLETEon 06-17-2023 ECG COMPLETE Ventricular Rate : 99 BPM Atrial Rate : 99 BPM P-R Interval : 164 ms QRS Duration : 84 ms Q-T Interval : 366 ms QTC Calculation(Bazett) : 469 ms Calculated P [place] : 51 degrees Calculated R [place] : 10 degrees Calculated T [place] : 5 degrees Normal sinus rhythm Nonspecific T wave abnormality Abnormal ECG When compared with ECG of 09-Jun-2023 06:29, No significant change was found Confirmed by JAYESH OVALLE MD ([id number]) on 06/18/2023 11:48:58 AM NAME : DHAVAL MOON PID : [id number] : 2000 Gender : Female Race : Other ORD : [id number] Procedure Date : Jun 17 2023 20:05:39 Edit Date : Jun 18 2023 11:49:02 Diagnosis: Normal sinus rhythm Nonspecific T wave abnormality Abnormal ECG When compared with ECG of 09-Jun-2023 06:29, No significant change was found Confirmed by JAYESH OVALLE MD ([id number]) on 06/18/2023 11:48:58 AM Test Reason : STAT Location : 0 : ED 4 Overread By : JAYESH OVALLE MD Edited By : JAYESH OVALLE MD Referred By : , Acquired by : SIMÓN, [facility] ED NOTEon 06-17-2023 ED NOTE HNO ID: [id number] Author: LUIS SILVER RN Service: Emergency Medicine Author Type: Registered Nurse Type: ED Notes Filed: 06/17/2023 20:27 Note Text: Pt's last drink approx 2 hours ago. [facility] ED NOTE HNO ID: [id number] Author: HIGINIO HOUSTON Medic Service: ? Author Type: Manager [employer] Deli Manager Type: ED Notes Filed: 06/17/2023 20:00 Note Text: Room cleared out. Belongings removed from pt. Pt placed on tele leads. Pt going back and forth between emotions quickly but is remaining calm and cooperative. Sitter at bedside. [facility] ED NOTE HNO ID: [id number] Author: MARISOL GRIFFITH LPN Service: ? Author Type: LICENSED NURSE Type: ED Notes Filed: 06/17/2023 19:47 Note Text: Bed: 04-ED Expected date: Expected time: Means of arrival: Comments: [facility] ED PROV NOTEon 06-17-2023 ED PROV NOTE HNO ID: [id number] Author: KEMI LIU MD Service: Emergency Medicine [...] Plan 33-year- (more content not included)... Normal [facility] Ethanol SerPl-mCncon 024 Ethanol [Mass/Vol] 0.249 gm/dL High <0.010 [facility] Comment on above: Order Comment: Speci men Type: BLOOD SPECIMEN Ordering Facility: [facility] Address: [address] [place] [address] Performed By: #### 3 4528-0, 41699-8 #### [facility] CLIA [id number] [address] [place] [address] [place] HCG Preg Ur Qlon 06-17-2023 HCG ( test) Ql (U) Negative Normal Negative [facility] Comment on above: Order Comment: Specshane merlos Type: BLOOD SPECIMEN Ordering Facility: [facility] Address: [address] [place] [address] Result Comment: This test is intended to aid in the early detection of . Very dilute urine samples, as indicated by a low specific gravity, may not contain sales representative trainee levels of hCG. This test detects intact [...] for . Performed By: #### 3 4528-0, 90172-8 #### [facility] CLIA [id number] [address] [place] [address] [place] SARS-CoV-2 RNA Resp Ql AZALEA+p robeon 06-17-2023 SARS-CoV-2 (COVID-19) RNA AZALEA+probe Ql (Resp) COVID 19 RESULT: Not detected The method used is RT-PCR or an equivalent NAAT method. Reference Range(the expected result in uninfected individuals): Not detected Normal [facility] Comment on above: Performed By: #### 3 4528-0, 87610-1 #### [facility] CLIA [id number] [address] [place] [address] [place] Salicylates SerPl-mCncon Salicylates [Mass/Vol] mg/dL Normal 2.8-20.0 [facility] Comment on above: Order Comment: Speci men Type: BLOOD SPECIMEN Ordering Facility: [facility] Address: [address] [place] [address] Result Comment: Refe rence ranges and high/low indicator flags are provided as general guidelines only. The treating physician must determine appropriate target levels/dosing based on the specific clinical situation. Performed By: #### 3 4528-0, 91068-1 #### [facility] CLIA [id number] [address] [place] [address] [place] TOXICOLOGY SCREEN, ROUTINE U RINEon 06-17-2023 Amphetamines Confirm (U) [Mass/Vol] Negative Normal Negative [facility] Comment on above: Order Comment: Speci men Type: BLOOD SPECIMEN Ordering Facility: [facility] Address: [address] [place] [address] Result Comment: Cuto ff threshold at 1000 ng/mL. Performed By: #### 3 4528-0, 06481-5 #### [facility] CLIA [id number] [address] [place] [address] [place] BARBITURATES, URINE Positive Abnormal Negative [facility] Comment on above: Order Comment: Speci men Type: BLOOD SPECIMEN Ordering Facility: [facility] Address: [address] [place] [address] Result Comment: Cuto ff threshold at 200 ng/mL. Performed By: #### 3 4528-0, 52573-7 #### [facility] CLIA [id number] [address] [place] [address] [place] BENZODIAZEPINES, UR Negative Normal Negative [facility] Comment on above: Order Comment: Speci men Type: BLOOD SPECIMEN Ordering Facility: [facility] Address: [address] [place] [address] Result Comment: Cuto ff threshold at 200 ng/mL. Performed By: #### 3 4528-0, 20125-0 #### [facility] CLIA [id number] [address] [place] [address] [place] Cannabinoids Screen Ql (U) Negative Normal Negative [facility] Comment on above: Order Comment: Speci men Type: BLOOD SPECIMEN Ordering Facility: [facility] Address: [address] [place] [address] Result Comment: Cuto ff threshold at 50 ng/mL. Performed By: #### 3 4528-0, 99816-5 #### [facility] CLIA [id number] [address] [place] [address] [place] Cocaine Ql (U) Negative Normal Negative [facility] Comment on above: Order Comment: Speci men Type: BLOOD SPECIMEN Ordering Facility: [facility] Address: [address] [place] [address] Result Comment: Cuto ff threshold at 300 ng/mL. Performed By: #### 3 4528-0, 94444-8 #### [facility] CLIA [id number] [address] [place] [address] [place] Opiates Screen Ql (U) Negative Normal Negative [facility] Comment on above: Order Comment: Speci men Type: BLOOD SPECIMEN Ordering Facility: [facility] Address: [address] [place] [address] Result Comment: Cuto ff threshold at 300 ng/mL. Performed By: #### 3 4528-0, 68537-1 #### [facility] CLIA [id number] [address] [place] [address] [place] Phencyclidine Ql (U) Negative Normal Negative [facility] Comment on above: Order Comment: Speci men Type: BLOOD SPECIMEN Ordering Facility: [facility] Address: [address] [place] [address] Result Comment: Cuto ff threshold at 25 ng/mL. Performed By: #### 3 4528-0, 70339-8 #### [facility] CLIA [id number] [address] [place] [address] Urinalysis complete panel (U )on 06-17-2023 Bacteria LM.HPF (Urine sed) [#/Area] None Seen Normal None Seen [facility] Comment on above: Order Comment: Speci men Type: BLOOD SPECIMEN Ordering Facility: [facility] Address: [address] [place] [address] Performed By: #### 3 4528-0, 46267-0 #### [facility] CLIA [id number] [address] [place] [address] Bilirubin Ql (U) Negative Normal Negative [facility] Comment on above: Order Comment: Speci men Type: BLOOD SPECIMEN Ordering Facility: [facility] Address: [address] [place] [address] Performed By: #### 3 4528-0, 00761-9 #### [facility] CLIA [id number] [address] [place] [address] [place] Clarity (Unsp spec) Clear Normal Clear [facility] Comment on above: Order Comment: Speci men Type: BLOOD SPECIMEN Ordering Facility: [facility] Address: [address] [place] [address] Performed By: #### 3 4528-0, 32918-1 #### [facility] CLIA [id number] [address] [place] [address] [facility] Color (U) Straw Normal Yellow [facility] Comment on above: Order Comment: Speci men Type: BLOOD SPECIMEN Ordering Facility: [facility] Address: [address] [place] [address] Performed By: #### 3 4528-0, 16805-7 #### [facility] CLIA [id number] [address] [place] [address] [place] Epithelial cells LM.HPF (Urine sed) [#/Area] Few Normal [facility] Comment on above: Order Comment: Speci men Type: BLOOD SPECIMEN Ordering Facility: [facility] Address: [address] [place] [address] Performed By: #### 3 4528-0, 35251-6 #### [facility] CLIA [id number] [address] [place] [address] [place] Glucose Test strip (U) [Mass/Vol] Negative Normal Negative [facility] Comment on above: Order Comment: Speci men Type: BLOOD SPECIMEN Ordering Facility: [facility] Address: [address] [place] [address] Performed By: #### 3 4528-0, 31716-5 #### [facility] CLIA [id number] [address] [place] [address] [place] Hemoglobin Ql (U) Negative Normal Negative [facility] Comment on above: Order Comment: Speci men Type: BLOOD SPECIMEN Ordering Facility: [facility] Address: [address] [place] [address] Performed By: #### 3 4528-0, 70438-6 #### [facility] CLIA [id number] [address] [place] [address] [place] Ketones Ql (U) Negative Normal Negative [facility] Comment on above: Order Comment: Speci men Type: BLOOD SPECIMEN Ordering Facility: [facility] Address: [address] [place] [address] Performed By: #### 3 4528-0, 46084-0 #### [facility] CLIA [id number] [address] [place] [address] [place] Leukocyte esterase Test strip Ql (U) Negative Normal Negative [facility] Comment on above: Order Comment: Speci men Type: BLOOD SPECIMEN Ordering Facility: [facility] Address: [address] [place] [address] Performed By: #### 3 4528-0, 13005-5 #### [facility] CLIA [id number] [address] [place] [address] [place] Nitrite Ql (U) Negative Normal Negative [facility] Comment on above: Order Comment: Speci men Type: BLOOD SPECIMEN Ordering Facility: [facility] Address: [address] [place] [address] Performed By: #### 3 4528-0, 91911-4 #### [facility] CLIA [id number] [address] [place] [address] [place] pH (U) 6.0 [pH] Normal 5.0-8.0 [facility] Comment on above: Order Comment: Speci men Type: BLOOD SPECIMEN Ordering Facility: [facility] Address: [address] [place] [address] Performed By: #### 3 4528-0, 22913-3 #### [facility] CLIA [id number] [address] [place] [address] [place] Protein (U) [Mass/Vol] Negative Normal Negative [facility] Comment on above: Order Comment: Speci men Type: BLOOD SPECIMEN Ordering Facility: [facility] Address: [address] [place] [address] Performed By: #### 3 4528-0, 03871-3 #### [facility] CLIA [id number] [address] [place] [address] [place] RBC LM.HPF (Urine sed) [#/Area] 0-3 /HPF Normal 0-3 /HPF [facility] Comment on above: Order Comment: Speci men Type: BLOOD SPECIMEN Ordering Facility: [facility] Address: [address] [place] [address] Performed By: #### 3 4528-0, 08380-6 #### [facility] CLIA [id number] [address] [place] [address] [place] Specific gravity (U) [Rel density] <1.005 Low 1.005-1.030 [facility] Comment on above: Order Comment: Speci men Type: BLOOD SPECIMEN Ordering Facility: [facility] Address: [address] [place] [address] Performed By: #### 3 4528-0, 77301-9 #### [facility] CLIA [id number] [address] [place] [address] Urobilinogen Ql (U) Negative Normal Negative [facility] Comment on above: Order Comment: Speci men Type: BLOOD SPECIMEN Ordering Facility: [facility] Address: [address] [place] [address] Performed By: #### 3 4528-0, 57455-6 #### [facility] CLIA [id number] [address] [place] [address] OF [place] WBC LM.HPF (Urine sed) [#/Area] 0-5 /HPF Normal 0-5 /HPF [facility] Comment on above: Order Comment: Speci men Type: BLOOD SPECIMEN Ordering Facility: [facility] Address: [address] [place] [address] Performed By: #### 3 4528-0, 42514-5 #### [facility] CLIA [id number] [address] [place] [address] CBC W Auto Differential pane l (Bld)on 06-10-2023 Basophils (Bld) [#/Vol] 10*3/uL Normal <0.11 [facility] Comment on above: Order Comment: Speci men Type: BLOOD SPECIMEN Ordering Facility: [facility] Address: [address] [place] [address] Performed By: #### 5 7021-8, 4537-7 #### [facility] CLIA [id number] [address] [place] [address] [place] Basophils/100 WBC (Bld) 0.3 % Normal [facility] Comment on above: Order Comment: Speci men Type: BLOOD SPECIMEN Ordering Facility: [facility] Address: [address] [place] [address] Performed By: #### 5 7021-8, 4537-7 #### [facility] CLIA [id number] [address] [place] [address] [place] Differential cell count method Nom (Bld) Auto Normal [facility] Comment on above: Order Comment: Speci men Type: BLOOD SPECIMEN Ordering Facility: [facility] Address: [address] [place] [address] Performed By: #### 5 7021-8, 4537-7 #### [facility] CLIA [id number] [address] [place] [address] [place] Eosinophils (Bld) [#/Vol] 0.19 10*3/uL Normal <0.46 [facility] Comment on above: Order Comment: Speci men Type: BLOOD SPECIMEN Ordering Facility: [facility] Address: [address] [place] [address] Performed By: #### 5 7021-8, 4536-7 #### [facility] CLIA [id number] [address] [place] [address] [place] Eosinophils/100 WBC (Bld) 2.6 % Normal [facility] Comment on above: Order Comment: Speci men Type: BLOOD SPECIMEN Ordering Facility: [facility] Address: [address] [place] [address] Performed By: #### 5 7021-8, 4536-7 #### [facility] CLIA [id number] [address] [place] [address] [place] Erythrocyte distribution width (RBC) [Ratio] 13.1 % Normal 11.5-15.0 [facility] Comment on above: Order Comment: Speci men Type: BLOOD SPECIMEN Ordering Facility: [facility] Address: [address] [place] [address] Performed By: #### 5 7021-8, 7-7 #### [facility] CLIA [id number] [address] [place] [address] [place] Hematocrit (Bld) [Volume fraction] 46.2 % High 36.0-46.0 [facility] Comment on above: Order Comment: Speci men Type: BLOOD SPECIMEN Ordering Facility: [facility] Address: [address] [place] [address] Performed By: #### 5 7021-8, 4536-7 #### [facility] CLIA [id number] [address] [place] [address] [place] Hemoglobin (Bld) [Mass/Vol] 15.5 g/dL Normal 11.5-15.5 [facility] Comment on above: Order Comment: Speci men Type: BLOOD SPECIMEN Ordering Facility: [facility] Address: [address] [place] [address] Performed By: #### 5 7021-8, 4536-7 #### [facility] CLIA [id number] [address] [place] [address] [place] Immature granulocytes (Bld) [#/Vol] 10*3/uL Normal <0.10 [facility] Comment on above: Order Comment: Speci men Type: BLOOD SPECIMEN Ordering Facility: [facility] Address: [address] [place] [address] Performed By: #### 5 7021-8, 7 #### [facility] CLIA [id number] [address] [place] [address] [place] Immature granulocytes/100 WBC (Bld) 0.3 % Normal [facility] Comment on above: Order Comment: Speci men Type: BLOOD SPECIMEN Ordering Facility: [facility] Address: [address] [place] [address] Performed By: #### 5 7021-8, 4536-7 #### [facility] CLIA [id number] [address] [place] [address] [place] Lymphocytes (Bld) [#/Vol] 1.42 10*3/uL Normal 1.00-4.00 [facility] Comment on above: Order Comment: Speci men Type: BLOOD SPECIMEN Ordering Facility: [facility] Address: [address] [place] [address] Performed By: #### 5 7021-8, 7-7 #### [facility] CLIA [id number] [address] [place] [address] [place] Lymphocytes/100 WBC (Bld) 19.2 % Normal [facility] Comment on above: Order Comment: Speci men Type: BLOOD SPECIMEN Ordering Facility: [facility] Address: [address] [place] [address] Performed By: #### 5 7021-8, 4537-7 #### [facility] CLIA [id number] [address] [place] [address] [place] MCH (RBC) [Entitic mass] 33.3 pg Normal 26.0-34.0 [facility] Comment on above: Order Comment: Speci men Type: BLOOD SPECIMEN Ordering Facility: [facility] Address: [address] [place] [address] Performed By: #### 5 7021-8, 4537-7 #### [facility] CLIA [id number] [address] [place] [address] [place] MCHC (RBC) [Mass/Vol] 33.5 g/dL Normal 30.5-36.0 [facility] Comment on above: Order Comment: Speci men Type: BLOOD SPECIMEN Ordering Facility: [facility] Address: [address] [place] [address] Performed By: #### 5 7021-8, 4537-7 #### [facility] CLIA [id number] [address] [place] [address] [place] MCV (RBC) [Entitic vol] 99.4 fL Normal 80.0-100.[address] [facility] Comment on above: Order Comment: Speci men Type: BLOOD SPECIMEN Ordering Facility: [facility] Address: [address] [place] [address] Performed By: #### 5 7021-8, 4537-7 #### [facility] CLIA [id number] [address] [place] [address] [place] Monocytes (Bld) [#/Vol] 0.59 10*3/uL Normal <0.87 [facility] Comment on above: Order Comment: Speci men Type: BLOOD SPECIMEN Ordering Facility: [facility] Address: [address] [place] [address] Performed By: #### 5 7021-8, 7-7 #### [facility] CLIA [id number] [address] [place] [address] [place] Monocytes/100 WBC (Bld) 8.0 % Normal [facility] Comment on above: Order Comment: Speci men Type: BLOOD SPECIMEN Ordering Facility: [facility] Address: [address] [place] [address] Performed By: #### 5 7021-8, 4536-7 #### [facility] CLIA [id number] [address] [place] [address] [place] Neutrophils (Bld) [#/Vol] 5.15 10*3/uL Normal 1.45-7.50 [facility] Comment on above: Order Comment: Speci men Type: BLOOD SPECIMEN Ordering Facility: [facility] Address: [address] [place] [address] Performed By: #### 5 7021-8, 7 #### [facility] CLIA [id number] [address] [place] [address] [place] Neutrophils/100 WBC (Bld) 69.6 % Normal [facility] Comment on above: Order Comment: Speci men Type: BLOOD SPECIMEN Ordering Facility: [facility] Address: [address] [place] [address] Performed By: #### 5 7021-8, 4536-7 #### [facility] CLIA [id number] [address] [place] [address] [place] Nucleated RBC (Bld) [#/Vol] 10*3/uL Normal <0.01 [facility] Comment on above: Order Comment: Speci men Type: BLOOD SPECIMEN Ordering Facility: [facility] Address: [address] [place] [address] Performed By: #### 5 7021-8, 4537-7 #### [facility] CLIA [id number] [address] [place] [address] [place] Nucleated RBC/100 WBC (Bld) [Ratio] 0.0 /100 WBC Normal [facility] Comment on above: Order Comment: Speci men Type: BLOOD SPECIMEN Ordering Facility: [facility] Address: [address] [place] [address] Performed By: #### 5 7021-8, 4537-7 #### [facility] CLIA [id number] [address] [place] [address] [place] Platelet mean volume (Bld) [Entitic vol] 10.8 fL Normal 9.0-12.7 [facility] Comment on above: Order Comment: Speci men Type: BLOOD SPECIMEN Ordering Facility: [facility] Address: [address] [place] [address] Performed By: #### 5 7021-8, 4537-7 #### [facility] CLIA [id number] [address] [place] [address] [place] Platelets (Bld) [#/Vol] 278 10*3/uL Normal 150-400 [facility] Comment on above: Order Comment: Speci men Type: BLOOD SPECIMEN Ordering Facility: [facility] Address: [address] [place] [address] Performed By: #### 5 7021-8, 4537-7 #### [facility] CLIA [id number] [address] [place] [address] [place] RBC (Bld) [#/Vol] 4.65 10*6/uL Normal 3.90-5.20 [facility] Comment on above: Order Comment: Speci men Type: BLOOD SPECIMEN Ordering Facility: [facility] Address: [address] [place] [address] Performed By: #### 5 7021-8, 4537-7 #### [facility] CLIA [id number] [address] [place] [address] [place] WBC (Bld) [#/Vol] 7.39 10*3/uL Normal 3.70-11.00 [facility] Comment on above: Order Comment: Speci men Type: BLOOD SPECIMEN Ordering Facility: [facility] Address: [address] [place], [place] [address] [address] Performed By: #### 5 7021-8, 4537-7 #### [facility] CLIA [id number] [address] [place] [address] [facility] CNDSon 06-10-2023 CNDS HNO ID: [id number] Author: LUKAS YOO MD Service: Hospital Medicine [...] 90 mcg/actuat (more content not included)... Normal [facility] Comprehensive metabolic 2000 panelon 06-10-2023 Albumin [Mass/Vol] 3.4 g/dL Normal 3.2-5.0 [facility] Comment on above: Order Comment: Janes merlos Type: BLOOD SPECIMEN Ordering Facility: [facility] Address: [address] [place] [address] Performed By: #### 5 7021-8, 4537-7 #### [facility] CLIA [id number] [address] [place] [address] [place] ALP [Catalytic activity/Vol] 87 U/L Normal 45-117 [facility] Comment on above: Order Comment: Janes merlos Type: BLOOD SPECIMEN Ordering Facility: [facility] Address: [address] [place] [address] Performed By: #### 5 7021-8, 4537-7 #### [facility] CLIA [id number] [address] [place] [address] [place] ALT [Catalytic activity/Vol] 24 U/L Normal 13-61 [facility] Comment on above: Order Comment: Janes merlos Type: BLOOD SPECIMEN Ordering Facility: [facility] Address: [address] [place] [address] Result Comment: Resu lts may be falsely depressed after the administration of Sulfasalazine and/or Sulfapyridine. Performed By: #### 5 7021-8, 4537-7 #### [facility] CLIA [id number] [address] [place] [address] [place] Anion gap [Moles/Vol] 4 mmol/L Low 5-16 [facility] Comment on above: Order Comment: Speci men Type: BLOOD SPECIMEN Ordering Facility: [facility] Address: [address] [place] [address] Performed By: #### 5 7021-8, 4537-7 #### [facility] CLIA [id number] [address] [place] [address] [place] AST [Catalytic activity/Vol] 31 U/L Normal 8-34 [facility] Comment on above: Order Comment: Speci men Type: BLOOD SPECIMEN Ordering Facility: [facility] Address: [address] [place] [address] Result Comment: Resu lts may be falsely depressed after the administration of Sulfasalazine and/or Sulfapyridine. Performed By: #### 5 7021-8, 4537-7 #### [facility] CLIA [id number] [address] [place] [address] [place] Bilirubin [Mass/Vol] 1.6 mg/dL High 0.2-1.0 [facility] Comment on above: Order Comment: Speci men Type: BLOOD SPECIMEN Ordering Facility: [facility] Address: [address] [place] [address] Performed By: #### 5 7021-8, 4537-7 #### [facility] CLIA [id number] [address] [place] [address] [place] Calcium [Mass/Vol] 9.9 mg/dL Normal 8.5-10.5 [facility] Comment on above: Order Comment: Speci men Type: BLOOD SPECIMEN Ordering Facility: [facility] Address: [address] [place] [address] Performed By: #### 5 7021-8, 4537-7 #### [facility] CLIA [id number] [address] [place] [address] [place] Chloride [Moles/Vol] 107 mmol/L Normal 98-107 [facility] Comment on above: Order Comment: Speci men Type: BLOOD SPECIMEN Ordering Facility: [facility] Address: [address] [place] [address] Performed By: #### 5 7021-8, 4537-7 #### [facility] CLIA [id number] [address] [place] [address] [place] CO2 [Moles/Vol] 29 mmol/L Normal 21-32 [facility] Comment on above: Order Comment: Speci men Type: BLOOD SPECIMEN Ordering Facility: [facility] Address: [address] [place] [address] Performed By: #### 5 7021-8, 4537-7 #### [facility] CLIA [id number] [address] [place] [address] [place] Creatinine [Mass/Vol] 0.42 mg/dL Low 0.51-0.95 [facility] Comment on above: Order Comment: Speci men Type: BLOOD SPECIMEN Ordering Facility: [facility] Address: [address] [place] [address] Result Comment: Jannie ents receiving either N-Acetylcysteine (NAC) or Metamizole prior to venipuncture, may have falsely depressed results. Performed By: #### 5 7021-8, 4537-7 #### [facility] CLIA [id number] [address] [place] [address] Creatinine and Glomerular filtration rate.predicted panel (S/P/Bld) 141 mL/min/1.73m??? Normal >=60 [facility] Comment on above: Order Comment: Janes merlos Type: BLOOD SPECIMEN Ordering Facility: [facility] Address: [address] [place] [address] Result Comment: Mulu mated Glomerular Filtration Rate [...] Performed By: #### 5 7021-8, 4537-7 #### [facility] CLIA [id number] [address] [place] [address] [place] Glucose [Mass/Vol] 97 mg/dL Normal 70-100 [facility] Comment on above: Order Comment: Janes merlos Type: BLOOD SPECIMEN Ordering Facility: [facility] Address: [address] [place], [place] [address] Result Comment: The [place] [employer] (ADA) provides guidance for cutoff [...] Standards of Medical Care in Diabetes 2016, [place] [employer]. Diabetes Care. 2016.39(Suppl 1). Results may be falsely elevated after the administration of Sulfapyridine. Results may be falsely depressed after the administration of Sulfasalazine. Performed By: #### 5 7021-8, 4537-7 #### [facility] CLIA [id number] [address] [place] [address] [place] Potassium [Moles/Vol] 3.7 mmol/L Normal 3.5-5.1 [facility] Comment on above: Order Comment: Janes merlos Type: BLOOD SPECIMEN Ordering Facility: [facility] Address: [address] [place], [place] [address] Performed By: #### 5 7021-8, 4537-7 #### [facility] CLIA [id number] [address] [place] [address] [place] Protein [Mass/Vol] 7.4 g/dL Normal 6.0-8.5 [facility] Comment on above: Order Comment: Janes merlos Type: BLOOD SPECIMEN Ordering Facility: [facility] Address: [address] [place], [place] [address] Performed By: #### 5 7021-8, 4537-7 #### [facility] CLIA [id number] [address] [place] [address] [place] Sodium [Moles/Vol] 140 mmol/L Normal 136-145 [facility] Comment on above: Order Comment: Speci men Type: BLOOD SPECIMEN Ordering Facility: [facility] Address: [address] [place] [address] Performed By: #### 5 7021-8, 4537-7 #### [facility] CLIA [id number] [address] [place] [address] [place] Urea nitrogen [Mass/Vol] mg/dL Low 7- [facility] Comment on above: Order Comment: Speci men Type: BLOOD SPECIMEN Ordering Facility: [facility] Address: [address] [place] [address] Performed By: #### 5 7021-8, 4537-7 #### [facility] CLIA [id number] [address] [place] [address] [place] Magnesium SerPl-mCncon 06-09 Magnesium [Mass/Vol] 1.9 mg/dL Normal 1.6-2.6 [facility] Comment on above: Order Comment: Speci men Type: BLOOD SPECIMEN Ordering Facility: [facility] Address: [address] [place] [address] Performed By: #### 5 7021-8, 4537-7 #### [facility] CLIA [id number] [address] [place] [address] [place] Phosphate SerPl-mCncon 06-09 Phosphate [Mass/Vol] 4.5 mg/dL Normal 2.5-4.9 [facility] Comment on above: Order Comment: Speci men Type: BLOOD SPECIMEN Ordering Facility: [facility] Address: [address] [place] [address] Result Comment: Elev ated m-protein (paraprotein) levels in the serum may be exhibited in patients with monoclonal gammopathies, causing falsely elevated inorganic phosphorus results. Performed By: #### 5 7021-8, 4537-7 #### [facility] CLIA [id number] [address] [place] [address] [place] CBC panel Auto (Bld)on 06-08 Erythrocyte distribution width (RBC) [Ratio] 13.2 % Normal 11.5-15.0 [facility] Comment on above: Order Comment: Speci men Type: BLOOD SPECIMEN Ordering Facility: [facility] Address: [address] [place] [address] Performed By: #### 5 7021-8, 4537-7 #### [facility] CLIA [id number] [address] [place] [address] Hematocrit (Bld) [Volume fraction] 49.3 % High 36.0-46.0 [facility] Comment on above: Order Comment: Speci men Type: BLOOD SPECIMEN Ordering Facility: [facility] Address: [address] [place] [address] Performed By: #### 5 7021-8, 4537-7 #### [facility] CLIA [id number] [address] [place] [address] Hemoglobin (Bld) [Mass/Vol] 16.4 g/dL High 11.5-15.5 [facility] Comment on above: Order Comment: Speci men Type: BLOOD SPECIMEN Ordering Facility: [facility] Address: [address] [place] [address] Performed By: #### 5 7021-8, 4537-7 #### [facility] CLIA [id number] [address] [place] [address] [place] MCH (RBC) [Entitic mass] 33.1 pg Normal 26.0-34.0 [facility] Comment on above: Order Comment: Speci men Type: BLOOD SPECIMEN Ordering Facility: [facility] Address: [address] [place] [address] Performed By: #### 5 7021-8, 4537-7 #### [facility] CLIA [id number] [address] [place] [address] [place] MCHC (RBC) [Mass/Vol] 33.3 g/dL Normal 30.5-36.0 [facility] Comment on above: Order Comment: Speci men Type: BLOOD SPECIMEN Ordering Facility: [facility] Address: [address] [place] [address] Performed By: #### 5 7021-8, 4537-7 #### [facility] CLIA [id number] [address] [place] [address] [place] MCV (RBC) [Entitic vol] 99.4 fL Normal 80.0-100.0 [facility] Comment on above: Order Comment: Speci men Type: BLOOD SPECIMEN Ordering Facility: [facility] Address: [address] [place] [address] Performed By: #### 5 7021-8, 4537-7 #### [facility] CLIA [id number] [address] [place] [address] [place] Nucleated RBC (Bld) [#/Vol] 10*3/uL Normal <0.01 [facility] Comment on above: Order Comment: Speci men Type: BLOOD SPECIMEN Ordering Facility: [facility] Address: [address] [place], [place] [address] Performed By: #### 5 7021-8, 4537-7 #### [facility] CLIA [id number] [address] [place], [place] [address] [place] Platelet mean volume (Bld) [Entitic vol] 10.5 fL Normal 9.0-12.7 [facility] Comment on above: Order Comment: Speci men Type: BLOOD SPECIMEN Ordering Facility: [facility] Address: [address] [place] [address] Performed By: #### 5 7021-8, 4537-7 #### [facility] CLIA [id number] [address] [place] [address] [place] Platelets (Bld) [#/Vol] 279 10*3/uL Normal 150-400 [facility] Comment on above: Order Comment: Speci men Type: BLOOD SPECIMEN Ordering Facility: [facility] Address: [address] [place] [address] Performed By: #### 5 7021-8, 4537-7 #### [facility] CLIA [id number] [address] [place], [place] [address] [facility] [place] RBC (Bld) [#/Vol] 4.96 10*6/uL Normal 3.90-5.20 [facility] Comment on above: Order Comment: Speci men Type: BLOOD SPECIMEN Ordering Facility: [facility] Address: [address] [place], [place] [address] Performed By: #### 5 7021-8, 4537-7 #### [facility] CLIA [id number] [address] [place] [address] WBC (Bld) [#/Vol] 8.02 10*3/uL Normal 3.70-11.00 [facility] Comment on above: Order Comment: Speci men Type: BLOOD SPECIMEN Ordering Facility: [facility] Address: [address] [place], [place] [address] Performed By: #### 5 7021-8, 4537-7 #### [facility] CLIA [id number] [address] [place] [address] [place] Comprehensive metabolic 2000 panelon 06-09-2023 Albumin [Mass/Vol] 3.3 g/dL Normal 3.2-5.0 [facility] Comment on above: Order Comment: Speci men Type: BLOOD SPECIMEN Ordering Facility: [facility] Address: [address] [place] [address] Performed By: #### 5 7021-8, 4537-7 #### [facility] CLIA [id number] [address] [place], [place] [address] [place] ALP [Catalytic activity/Vol] 94 U/L Normal 45-117 [facility] Comment on above: Order Comment: Speci men Type: BLOOD SPECIMEN Ordering Facility: [facility] Address: [address] [place] [address] Performed By: #### 5 7021-8, 4537-7 #### [facility] CLIA [id number] [address] [place] [address] [place] ALT [Catalytic activity/Vol] 32 U/L Normal 13-61 [facility] Comment on above: Order Comment: Janes merlos Type: BLOOD SPECIMEN Ordering Facility: [facility] Address: [address] [place] [address] Result Comment: Resu lts may be falsely depressed after the administration of Sulfasalazine and/or Sulfapyridine. Performed By: #### 5 7021-8, 4537-7 #### [facility] CLIA [id number] [address] [place] [address] [place] Anion gap [Moles/Vol] 8 mmol/L Normal 5-16 [facility] Comment on above: Order Comment: Janes merlos Type: BLOOD SPECIMEN Ordering Facility: [facility] Address: [address] [place] [address] Performed By: #### 5 7021-8, 4537-7 #### [facility] CLIA [id number] [address] [place] [address] [place] AST [Catalytic activity/Vol] 34 U/L Normal 8-34 [facility] Comment on above: Order Comment: Janes merlos Type: BLOOD SPECIMEN Ordering Facility: [facility] Address: [address] [place] [address] Result Comment: Resu lts may be falsely depressed after the administration of Sulfasalazine and/or Sulfapyridine. Performed By: #### 5 7021-8, 4537-7 #### [facility] CLIA [id number] [address] [place], [place] [address] [place] Bilirubin [Mass/Vol] 1.3 mg/dL High 0.2-1.0 [facility] Comment on above: Order Comment: Janes merlos Type: BLOOD SPECIMEN Ordering Facility: [facility] Address: [address] [place] [address] Performed By: #### 5 7021-8, 4537-7 #### [facility] CLIA [id number] [address] [place], [place] [address] [place] Calcium [Mass/Vol] 9.4 mg/dL Normal 8.5-10.5 [facility] Comment on above: Order Comment: Speci men Type: BLOOD SPECIMEN Ordering Facility: [facility] Address: [address] [place] [address] Performed By: #### 5 7021-8, 4537-7 #### [facility] CLIA [id number] [address] [place] [address] [place] Chloride [Moles/Vol] 110 mmol/L High 98-107 [facility] Comment on above: Order Comment: Speci men Type: BLOOD SPECIMEN Ordering Facility: [facility] Address: [address] [place] [address] Performed By: #### 5 7021-8, 453-7 #### [facility] CLIA [id number] [address] [place] [address] [place] CO2 [Moles/Vol] 27 mmol/L Normal 21-32 [facility] Comment on above: Order Comment: Speci men Type: BLOOD SPECIMEN Ordering Facility: [facility] Address: [address] [place] [address] Performed By: #### 5 7021-8, 4536-7 #### [facility] CLIA [id number] [address] [place] [address] [place] Creatinine [Mass/Vol] 0.51 mg/dL Normal 0.51-0.95 [facility] Comment on above: Order Comment: Speci men Type: BLOOD SPECIMEN Ordering Facility: [facility] Address: [address] [place] [address] Result Comment: Jannie ents receiving either N-Acetylcysteine (NAC) or Metamizole prior to venipuncture, may have falsely depressed results. Performed By: #### 5 7021-8, 4537-7 #### [facility] CLIA [id number] [address] [place] [address] [place] Creatinine and Glomerular filtration rate.predicted panel (S/P/Bld) 135 mL/min/1.73m??? Normal >=60 [facility] Comment on above: Order Comment: Janes merlos Type: BLOOD SPECIMEN Ordering Facility: [facility] Address: [address] [place] [address] Result Comment: Mulu mated Glomerular Filtration Rate [...] Performed By: #### 5 7021-8, 4537-7 #### [facility] CLIA [id number] [address] [place] [address] [place] Glucose [Mass/Vol] 95 mg/dL Normal 70-100 [facility] Comment on above: Order Comment: Janes merlos Type: BLOOD SPECIMEN Ordering Facility: [facility] Address: [address] [place] [address] Result Comment: The [place] [employer] (ADA) provides guidance for cutoff [...] Standards of Medical Care in Diabetes 2016, [place] [employer]. Diabetes Care. 2016.39(Suppl 1). Results may be falsely elevated after the administration of Sulfapyridine. Results may be falsely depressed after the administration of Sulfasalazine. Performed By: #### 5 7021-8, 4537-7 #### [facility] CLIA [id number] [address] [place] [address] [place] Potassium [Moles/Vol] 3.6 mmol/L Normal 3.5-5.1 [facility] Comment on above: Order Comment: Speci men Type: BLOOD SPECIMEN Ordering Facility: [facility] Address: [address] [place] [id number] Performed By: #### 5 7021-8, 4537-7 #### [facility] CLIA [id number] [address] [place] [address] [place] Protein [Mass/Vol] 7.3 g/dL Normal 6.0-8.5 [facility] Comment on above: Order Comment: Speci men Type: BLOOD SPECIMEN Ordering Facility: [facility] Address: [address] [place] [place] [id number] Performed By: #### 5 7021-8, 4537-7 #### [facility] CLIA [id number] [address] [place] [address] [place] Sodium [Moles/Vol] 145 mmol/L Normal 136-145 [facility] Comment on above: Order Comment: Speci men Type: BLOOD SPECIMEN Ordering Facility: [facility] Address: [address] [place] [address] Performed By: #### 5 7021-8, 4537-7 #### [facility] CLIA [id number] [address] [place] [address] [place] Urea nitrogen [Mass/Vol] 5 mg/dL Low 09-07 [facility] Comment on above: Order Comment: Speci men Type: BLOOD SPECIMEN Ordering Facility: [facility] Address: [address] [place] [address] Performed By: #### 5 7021-8, 4537-7 #### [facility] CLIA [id number] [address] [place] [address] [place] ECG COMPLETEon 06-09-2023 ECG COMPLETE Ventricular Rate : 125 BPM Atrial Rate : 125 BPM P-R Interval : 156 ms QRS Duration : 86 ms Q-T Interval : 326 ms QTC Calculation(Bazett) : 470 ms Calculated P [place] : 44 degrees Calculated R [place] : 26 degrees Calculated T [place] : 10 degrees Sinus tachycardia Nonspecific T wave abnormality Inferior and Septal leads Otherwise normal ECG When compared with ECG of 08-Jun-2023 17:54, No significant change was found Confirmed by KEYANA LENNON MD ([id number]) on 06/11/2023 7:04:02 PM NAME : DHAVAL MOON PID : [id number] : 2000 Gender : Female Race : Other ORD : [id number] Procedure Date : Jun 09 2023 06:29:25 Edit Date : Jun 11 2023 19:04:03 Diagnosis: Sinus tachycardia Nonspecific T wave abnormality Inferior and Septal leads Otherwise normal ECG When compared with ECG of 08-Jun-2023 17:54, No significant change was found Confirmed by KEYANA LENNON MD ([id number]) on 06/11/2023 7:04:02 PM Test Reason : RT Location : 19 : [address] [place] [address] Overread By : KEYANA LENNON MD Edited By : KEYANA LENNON MD Referred By : , Acquired by : JAMES HOLMAN [facility] HIGH SENSITIVITY TROPONIN Io n 06-09-2023 Tropinin I.cardiac panel High sensitivity method 3.0 pg/mL Normal 0.0-34.0 [facility] Comment on above: Order Comment: Specshane merlos Type: BLOOD SPECIMEN Ordering Facility: [facility] Address: [address] [place] [address] Result Comment: This assay uses different antibodies than our current assay, and assays, even by the same recreation activities coordinator may recognize different regions of the antibody and cannot be used interchangeably. Expect results of this assay to run higher than the previous assay. Performed By: #### 5 7021-8, 4537-7 #### [facility] CLIA [id number] [address] [place] [address] [place] [facility] Tropinin I.cardiac panel High sensitivity method <2.5 Normal 0.0-34.0 [facility] Comment on above: Order Comment: Speci chelita Type: BLOOD SPECIMEN Ordering Facility: [facility] Address: [address] [place] [address] Result Comment: This assay uses different antibodies than our current assay, and assays, even by the same recreation activities coordinator may recognize different regions of the antibody and cannot be used interchangeably. Expect results of this assay to run higher than the previous assay. Performed By: #### 5 7021-8, 4537-7 #### [facility] CLIA [id number] [address] [place], [place] [id number] [facility] MEDICAL EMERon 06-09-2023 MEDICAL CHRIS HNO ID: [id number] Author: SUKH CLINTON APRN.BAM Service: Hospital Medicine Author Type: Nurse Practitioner Type: Chg in Clinical Condition Filed: 06/09/2023 01:32 Note Text: Patient had reported to the nursing staff that she wishes that she was . She continues to have visual hallucinations and currently attempting to leave AMA. Capacity hold placed due to delirium and depression. Consult placed to psychiatry. [facility] Magnesium SerPl-mCncon 06-08 Magnesium [Mass/Vol] 2.2 mg/dL Normal 1.6-2.6 [facility] Comment on above: Order Comment: Speci men Type: BLOOD SPECIMEN Ordering Facility: [facility] Address: [address] [place] [address] Performed By: #### 5 7021-8, 4537-7 #### [facility] IA [id number] [address] [place], [place] [id number] [facility] NURSING PROGon 06-09-2023 NURSING PROG HNO ID: [id number] Author: ELIZABETH PRESCOTT RN Service: Nursing Author Type: Registered Nurse Type: Nursing Progress Note Filed: 06/09/2023 18:04 Note Text: Patient continues to experience auditory and visual hallucinations. Pt stated that there is a man behind her hospital curtain and in her patient bathroom. This nurse showed the patient that there was not anyone in there. Patient redirected. This nurse and patient bark skinner offered patient to turn on her TV or listen to music. Patient refused. Patient continues to listen for noises in the hallway and state that people are talking about her and that there is a Mr. Walters that is coming to see her from the hallway. Patient redirected. [facility] NUTRITIONon 06-09-2023 NUTRITION HNO ID: [id number] Author: YVETTE CHAWLA RD Service: ? Author [...] self-report, Food/nutrition related history Estimated kilocalorie needs: 9169-1549 Calorie Calculation Method: Bell-St. Jeor (with activity factor) (1.1-1.3) Estimated protein needs (grams): 120-140 Grams protein determined by: [place] body weight (2.5-3.0) Care Plan: Continue current [...] June 09, 2023 TIME: 11:00 AM Normal [facility] TOXICOLOGY SCREEN, ROUTINE U RINEon 06-09-2023 Amphetamines Confirm (U) [Mass/Vol] Positive Abnormal Negative [facility] Comment on above: Order Comment: Speci men Type: BLOOD SPECIMEN Ordering Facility: [facility] Address: [address] [place] [address] Result Comment: Cuto ff threshold at 1000 ng/mL. Performed By: #### 5 7021-8, 4537-7 #### [facility] CLIA [id number] [address] [place] [address] [place] BARBITURATES, URINE Positive Abnormal Negative [facility] Comment on above: Order Comment: Speci men Type: BLOOD SPECIMEN Ordering Facility: [facility] Address: [address] [place] [address] Result Comment: Cuto ff threshold at 200 ng/mL. Performed By: #### 5 7021-8, 4537-7 #### [facility] CLIA [id number] [address] [place] [address] [place] BENZODIAZEPINES, UR Negative Normal Negative [facility] Comment on above: Order Comment: Speci men Type: BLOOD SPECIMEN Ordering Facility: [facility] Address: [address] [place] [address] Result Comment: Cuto ff threshold at 200 ng/mL. Performed By: #### 5 7021-8, 4537-7 #### [facility] CLIA [id number] [address] [place] [address] [place] Cannabinoids Screen Ql (U) Negative Normal Negative [facility] Comment on above: Order Comment: Speci men Type: BLOOD SPECIMEN Ordering Facility: [facility] Address: [address] [place] [address] Result Comment: Cuto ff threshold at 50 ng/mL. Performed By: #### 5 7021-8, 4537-7 #### [facility] CLIA [id number] [address] [place] [address] [place] Cocaine Ql (U) Positive Abnormal Negative [facility] Comment on above: Order Comment: Speci men Type: BLOOD SPECIMEN Ordering Facility: [facility] Address: [address] [place] [address] Result Comment: Cuto ff threshold at 300 ng/mL. Performed By: #### 5 7021-8, 4537-7 #### [facility] CLIA [id number] [address] [place] [address] [place] [facility] Opiates Screen Ql (U) Negative Normal Negative [facility] Comment on above: Order Comment: Speci men Type: BLOOD SPECIMEN Ordering Facility: [facility] Address: [address] [place] [address] Result Comment: Cuto ff threshold at 300 ng/mL. Performed By: #### 5 7021-8, 4537-7 #### [facility] CLIA [id number] [address] [place] [address] [place] Phencyclidine Ql (U) Negative Normal Negative [facility] Comment on above: Order Comment: Speci men Type: BLOOD SPECIMEN Ordering Facility: [facility] Address: [address] [place] [address] Result Comment: Cuto ff threshold at 25 ng/mL. Performed By: #### 5 7021-8, 4537-7 #### [facility] CLIA [id number] [address] [place] [address] [place] Basic metabolic 2000 panelon 06-08-2023 Anion gap [Moles/Vol] 10 mmol/L Normal 5-16 [facility] Comment on above: Order Comment: Speci men Type: BLOOD SPECIMENOrdering Facility: [facility] Address: [address] [place] [address] Performed By: #### [place], 68345-0, 5643-2 ####[facility] LABORATORYCLIA [id number] [place] [address] [place] Calcium [Mass/Vol] 10.2 mg/dL Normal 8.5-10.5 [facility] Comment on above: Order Comment: Speci men Type: BLOOD SPECIMENOrdering Facility: [facility] Address: [address] [place] [address] Performed By: #### Rishi ESPINOZA, 83062-4, 5643-2 ####[facility] LABORATORYCLIA [id number] [place] [id number] [place] Chloride [Moles/Vol] 108 mmol/L High 98-107 [facility] Comment on above: Order Comment: Speci men Type: BLOOD SPECIMENOrdering Facility: [facility] Address: [address] [place] [address] Performed By: #### Rishi ESPINOZA, 95641-8, 5643-2 ####[facility] LABORATORYCLIA [id number] [place] [address] [place] CO2 [Moles/Vol] 25 mmol/L Normal 21-32 [facility] Comment on above: Order Comment: Speci men Type: BLOOD SPECIMENOrdering Facility: [facility] Address: [address] [place] [address] Performed By: #### Rishi ESPINOZA, 75332-0, 5643-2 ####[facility] LABORATORYCLIA [id number] [address] [place] Creatinine [Mass/Vol] 0.50 mg/dL Low 0.51-0.95 [facility] Comment on above: Order Comment: Speci men Type: BLOOD SPECIMENOrdering Facility: [facility] Address: [address] [place] [address] Result Comment: Jannie ents receiving either N-Acetylcysteine (NAC) or Metamizole prior to venipuncture, may have falsely depressed results. Performed By: #### Rishi ESPINOZA, 36851-6, 5643-2 ####[facility]ATORYCLIA [id number] [place] [address] [place] Creatinine and Glomerular filtration rate.predicted panel (S/P/Bld) 135 mL/min/1.73m??? Normal >=60 [facility] Comment on above: Order Comment: Speci men Type: BLOOD SPECIMENOrdering Facility: [facility] Address: [address] [id number] Result Comment: Mulu mated Glomerular Filtration Rate [...] actual GFR. Performed By: #### H CG, 14296-3, 5643-2 ####[facility] LABORATORYCLIA [id number] [place] [id number] [place] Glucose [Mass/Vol] 101 mg/dL High 70-100 [facility] Comment on above: Order Comment: Janes merlos Type: BLOOD SPECIMENOrdering Facility: [facility] Address: [address] [place] [address] Result Comment: The [place] Diabetes Association (ADA) provides guidance for cutoff [...] Standards of Medical Care in Diabetes 2016, [place] [employer]. Diabetes Care. 2016.39(Suppl 1). Results may be falsely elevated after the administration of Sulfapyridine. Results may be falsely depressed after the administration of Sulfasalazine. Performed By: #### H CG, 19784-3, 5643-2 ####[facility] LABORATORYCLIA [id number] [place] [id number] [place] Potassium [Moles/Vol] 3.2 mmol/L Low 3.5-5.1 [facility] Comment on above: Order Comment: Janes merlos Type: BLOOD SPECIMENOrdering Facility: [facility] Address: [address] [place] [address] Performed By: #### Rishi ALEXIS, 22263-2, 5643-2 ####[facility] LABORATORYCLIA [id number] [place] [id number] [place] Sodium [Moles/Vol] 143 mmol/L Normal 136-145 [facility] Comment on above: Order Comment: Speci men Type: BLOOD SPECIMENOrdering Facility: [facility] Address: [address] [place] [address] Performed By: #### Rishi ALEXIS, 70810-2, 5643-2 ####[facility] LABORATORYCLIA [id number] [place] [address] [place] Urea nitrogen [Mass/Vol] mg/dL Low - [facility] Comment on above: Order Comment: Speci men Type: BLOOD SPECIMENOrdering Facility: [facility] Address: [address] [place] [address] Performed By: #### Rishi ALEXIS, 71933-7, 5643-2 ####[facility] LABORATORYCLIA [id number] [place] [address] [place] CBC W Auto Differential pane l (Bld)on 06-08-2023 Basophils (Bld) [#/Vol] 0.04 10*3/uL Normal <0.11 [facility] Comment on above: Order Comment: Speci men Type: BLOOD SPECIMENOrdering Facility: [facility] Address: [address] [place] [address] Performed By: #### 5 7021-8 ####[facility] LABORATORYCLIA [id number] [address] [place] Basophils/100 WBC (Bld) 0.4 % Normal [facility] Comment on above: Order Comment: Speci men Type: BLOOD SPECIMENOrdering Facility: [facility] Address: [address] [place] [address] Performed By: #### 5 7021-8 ####[facility] LABORATORYCLIA [id number] [address] [place] Differential cell count method Nom (Bld) Auto Normal [facility] Comment on above: Order Comment: Speci men Type: BLOOD SPECIMENOrdering Facility: [facility] Address: [address] [place] [address] Performed By: #### 5 7021-8 ####[facility] LABORATORYCLIA [id number] [place] [address] [place] Eosinophils (Bld) [#/Vol] 0.15 10*3/uL Normal <0.46 [facility] Comment on above: Order Comment: Speci men Type: BLOOD SPECIMENOrdering Facility: [facility] Address: [address] [place] [address] Performed By: #### 5 7021-8 ####[facility] LABORATORYCLIA [id number] [address] Eosinophils/100 WBC (Bld) 1.6 % Normal [facility] Comment on above: Order Comment: Speci men Type: BLOOD SPECIMENOrdering Facility: [facility] Address: [address] [place] [address] Performed By: #### 5 7021-8 ####[facility] LABORATORYCLIA [id number] [address] [place] Erythrocyte distribution width (RBC) [Ratio] 13.2 % Normal 11.5-15.0 [facility] Comment on above: Order Comment: Speci men Type: BLOOD SPECIMENOrdering Facility: [facility] Address: [address] [place] [address] Performed By: #### 5 7021-8 ####[facility] LABORATORYCLIA [id number] [address] [place] Hematocrit (Bld) [Volume fraction] 47.6 % High 36.0-46.0 [facility] Comment on above: Order Comment: Speci men Type: BLOOD SPECIMENOrdering Facility: [facility] Address: [address] [place] [address] Performed By: #### 5 7021-8 ####[facility] LABORATORYCLIA [id number] [place] [address] [place] Hemoglobin (Bld) [Mass/Vol] 16.3 g/dL High 11.5-15.5 [facility] Comment on above: Order Comment: Speci men Type: BLOOD SPECIMENOrdering Facility: [facility] Address: [address] [place] [address] Performed By: #### 5 7021-8 ####[facility] LABORATORYCLIA [id number] [place] [address] [place] Immature granulocytes (Bld) [#/Vol] 10*3/uL Normal <0.10 [facility] Comment on above: Order Comment: Speci men Type: BLOOD SPECIMENOrdering Facility: [facility] Address: [address] [place] [address] Performed By: #### 5 7021-8 ####[facility] LABORATORYCLIA [id number] [place] [address] [place] Immature granulocytes/100 WBC (Bld) 0.1 % Normal [facility] Comment on above: Order Comment: Speci men Type: BLOOD SPECIMENOrdering Facility: [facility] Address: [address] [place] [address] Performed By: #### 5 7021-8 ####[facility] LABORATORYCLIA [id number] [place] [address] [place] Lymphocytes (Bld) [#/Vol] 2.22 10*3/uL Normal 1.00-4.00 [facility] Comment on above: Order Comment: Speci men Type: BLOOD SPECIMENOrdering Facility: [facility] Address: [address] [place] [address] Performed By: #### 5 7021-8 ####[facility] LABORATORYCLIA [id number] [place] [address] [place] Lymphocytes/100 WBC (Bld) 23.8 % Normal [facility] Comment on above: Order Comment: Speci men Type: BLOOD SPECIMENOrdering Facility: [facility] Address: [address] [place] [address] Performed By: #### 5 7021-8 ####[facility] LABORATORYCLIA [id number] [address] [place] MCH (RBC) [Entitic mass] 32.8 pg Normal 26.0-34.0 [facility] Comment on above: Order Comment: Speci men Type: BLOOD SPECIMENOrdering Facility: [facility] Address: [address] [place] [address] Performed By: #### 5 7021-8 ####[facility] LABORATORYCLIA [id number] [address] [place] MCHC (RBC) [Mass/Vol] 34.2 g/dL Normal 30.5-36.0 [facility] Comment on above: Order Comment: Speci men Type: BLOOD SPECIMENOrdering Facility: [facility] Address: [address] [place] [address] Performed By: #### 5 7021-8 ####[facility] LABORATORYCLIA [id number] [address] [place] MCV (RBC) [Entitic vol] 95.8 fL Normal 80.0-100.[address] [facility] Comment on above: Order Comment: Speci men Type: BLOOD SPECIMENOrdering Facility: [facility] Address: [address] [place] [address] Performed By: #### 5 7021-8 ####[facility] LABORATORYCLIA [id number] [address] [place] Monocytes (Bld) [#/Vol] 0.63 10*3/uL Normal <0.87 [facility] Comment on above: Order Comment: Speci men Type: BLOOD SPECIMENOrdering Facility: [facility] Address: [address] [place] [address] Performed By: #### 5 7021-8 ####[facility] LABORATORYCLIA [id number] [address] [place] Monocytes/100 WBC (Bld) 6.7 % Normal [facility] Comment on above: Order Comment: Speci men Type: BLOOD SPECIMENOrdering Facility: [facility] Address: [address] [place] [address] Performed By: #### 5 7021-8 ####[facility] LABORATORYCLIA [id number] [place] [address] [place] Neutrophils (Bld) [#/Vol] 6.29 10*3/uL Normal 1.45-7.50 [facility] Comment on above: Order Comment: Speci men Type: BLOOD SPECIMENOrdering Facility: [facility] Address: [address] [place] [address] Performed By: #### 5 7021-8 ####[facility] LABORATORYCLIA [id number] [place] [address] [place] Neutrophils/100 WBC (Bld) 67.4 % Normal [facility] Comment on above: Order Comment: Speci men Type: BLOOD SPECIMENOrdering Facility: [facility] Address: [address] [place] [address] Performed By: #### 5 7021-8 ####[facility] LABORATORYCLIA [id number] [place] [address] [place] Nucleated RBC (Bld) [#/Vol] 10*3/uL Normal <0.01 [facility] Comment on above: Order Comment: Speci men Type: BLOOD SPECIMENOrdering Facility: [facility] Address: [address] [place] [address] Performed By: #### 5 7021-8 ####[facility] LABORATORYCLIA [id number] [place] [id number] [place] Nucleated RBC/100 WBC (Bld) [Ratio] 0.0 /100 WBC Normal [facility] Comment on above: Order Comment: Speci men Type: BLOOD SPECIMENOrdering Facility: [facility] Address: [address] [place] [address] Performed By: #### 5 7021-8 ####[facility] LABORATORYCLIA [id number] [address] [place] Platelet mean volume (Bld) [Entitic vol] 10.5 fL Normal 9.0-12.7 [facility] Comment on above: Order Comment: Speci men Type: BLOOD SPECIMENOrdering Facility: [facility] Address: [address] [place] [address] Performed By: #### 5 7021-8 ####[facility] LABORATORYCLIA [id number] [place] [address] [place] Platelets (Bld) [#/Vol] 322 10*3/uL Normal 150-400 [facility] Comment on above: Order Comment: Speci men Type: BLOOD SPECIMENOrdering Facility: [facility] Address: [address] [place] [address] Performed By: #### 5 7021-8 ####[facility] CENTERIA [id number] [address] [place] RBC (Bld) [#/Vol] 4.97 10*6/uL Normal 3.90-5.20 [facility] Comment on above: Order Comment: Speci men Type: BLOOD SPECIMENOrdering Facility: [facility] Address: [address] [place] [address] Performed By: #### 5 7021-8 ####[facility] LABORATORYCLIA [id number] [place] [id number] [place] WBC (Bld) [#/Vol] 9.34 10*3/uL Normal 3.70-11.00 [facility] Comment on above: Order Comment: Speci men Type: BLOOD SPECIMENOrdering Facility: [facility] Address: [address] [place] [address] Performed By: #### 5 7021-8 ####[facility] LABORATORYCLIA [id number] [place] [id number] [facility] ECG COMPLETEon 06-08-2023 ECG COMPLETE Ventricular Rate : 129 BPM Atrial Rate : 129 BPM P-R Interval : 88 ms QRS Duration : 80 ms Q-T Interval : 370 ms QTC Calculation(Bazett) : 543 ms Calculated P [place] : 50 degrees Calculated R [place] : 56 degrees Calculated T [place] : 44 degrees Sinus tachycardia with short MA Otherwise normal ECG No previous ECGs available Confirmed by JAYESH OVALLE MD ([id number]) on 06/10/2023 10:19:29 AM NAME : DHAVAL MOON PID : [id number] : 2000 Gender : Female Race : Other ORD : [id number] Procedure Date : Jun 08 2023 17:54:26 Edit Date : Jun 10 2023 10:19:30 Diagnosis: Sinus tachycardia with short MA Otherwise normal ECG No previous ECGs available Confirmed by JAYESH OVALLE MD ([id number]) on 06/10/2023 10:19:29 AM Test Reason : STAT Location : 0 : ED D Overread By : JAYESH OVALLE MD Edited By : JAYESH OVALLE MD Referred By : , Acquired by : [facility] ED NOTEon 06-08-2023 ED NOTE HNO ID: [id number] Author: EDIE DAVE RN Service: ? Author Type: Registered Nurse Type: ED Notes Filed: 06/08/2023 21:25 Note Text: Ready to go up [facility] ED PROV NOTEon 06-08-2023 ED PROV NOTE HNO ID: [id number] Author: RICO VALENTE DO Service: ? Author [...] anxiety iss (more content not included)... Normal [facility] ED Triage Noteon 06-08-2023 ED Triage Note HNO ID: [id number] Author: EASTON LEAL PA-C Service: Emergency Medicine Author Type: Physician Instructor Physical Type: ED Triage Notes Filed: 06/08/2023 18:05 [...] flush bag SIGNATURE: Easton Leal PA-C Normal [facility] Ethanol SerPl-mCncon 024 Ethanol [Mass/Vol] mg/dL Normal <0.010 [facility] Comment on above: Order Comment: Speci men Type: BLOOD SPECIMENOrdering Facility: [facility] Address: [address] [place] [address] Performed By: #### H , 93180-5, 5643-2 ####[facility] LABORATORYCLIA [id number] [place] [address] [place] HCG QUALITATIVEon 06-08-2023 HCG, QUALITATIVE Negative Normal Negative [facility] Comment on above: Order Comment: Speci men Type: BLOOD SPECIMENOrdering Facility: [facility] Address: [address] [place] [address] Performed By: #### H , 98715-9, 5643-2 ####[facility] LABORATORYCLIA [id number] [place] [address] [place] HIGH SENSITIVITY TROPONIN Io n 06-08-2023 Tropinin I.cardiac panel High sensitivity method <2.5 Normal 0.0-34.0 [facility] Comment on above: Order Comment: Speci men Type: BLOOD SPECIMENOrdering Facility: [facility] Address: [address] [place] [address] Result Comment: This assay uses different antibodies than our current assay, and assays, even by the same recreation activities coordinator may recognize different regions of the antibody and cannot be used interchangeably. Expect results of this assay to run higher than the previous assay. Performed By: #### H STROQuincy ####[facility] LABORATORYCLIA [id number] [place] [id number] [place] HISTORY PHYSICALon HISTORY PHYSICAL HNO ID: [id number] Author: EASTON OLIVARES DO Service: Hospital Medicine [...] Neurological: Men (more content not included)... Normal [facility] Hepatic function 2000 panelo n 06-08-2023 Albumin [Mass/Vol] 3.7 g/dL Normal 3.2-5.0 [facility] Comment on above: Order Comment: Speci men Type: BLOOD SPECIMENOrdering Facility: [facility] Address: [address] [place] [address] Performed By: #### 2 4325-3, 3039-3, ####[facility] LABORATORYCLIA [id number] [place] [address] [place] ALP [Catalytic activity/Vol] 98 U/L Normal 45-117 [facility] Comment on above: Order Comment: Speci men Type: BLOOD SPECIMENOrdering Facility: [facility] Address: [address] [place] [address] Performed By: #### 2 4325-3, 3040-3, ####[facility] LABORATORYCLIA [id number] [place] [address] [place] ALT [Catalytic activity/Vol] 35 U/L Normal 13-61 [facility] Comment on above: Order Comment: Speci men Type: BLOOD SPECIMENOrdering Facility: [facility] Address: [address] [place] [address] Result Comment: Resu lts may be falsely depressed after the administration of Sulfasalazine and/or Sulfapyridine. Performed By: #### 2 4325-3, 3040-3, ####[facility] LABORATORYCLIA [id number] [place] [id number] [place] AST [Catalytic activity/Vol] 41 U/L High 8-34 [facility] Comment on above: Order Comment: Speci men Type: BLOOD SPECIMENOrdering Facility: [facility] Address: [address] [place] [address] Result Comment: Resu lts may be falsely depressed after the administration of Sulfasalazine and/or Sulfapyridine. Performed By: #### 2 4325-3, 3040-3, ####[facility] LABORATORYCLIA [id number] [place] [id number] [place] Bilirubin [Mass/Vol] 1.1 mg/dL High 0.2-1.0 [facility] Comment on above: Order Comment: Speci men Type: BLOOD SPECIMENOrdering Facility: [facility] Address: [address] [place] [address] Performed By: #### 2 4325-3, 3040-3, ####[facility] LABORATORYCLIA [id number] [place] [id number] [place] Bilirubin.conjugated [Mass/Vol] 0.5 mg/dL High 0.0-0.4 [facility] Comment on above: Order Comment: Speci men Type: BLOOD SPECIMENOrdering Facility: [facility] Address: [address] [place] [address] Performed By: #### 2 4325-3, 3040-3, ####[facility] LABORATORYCLIA [id number] [place] [address] [place] Protein [Mass/Vol] 8.0 g/dL Normal 6.0-8.5 [facility] Comment on above: Order Comment: Speci men Type: BLOOD SPECIMENOrdering Facility: [facility] Address: [facility] [place] [address] Performed By: #### 2 4325-3, 3040-3, ####[facility] LABORATORYCLIA [id number] [place] [id number] [place] Lipase SerPl-cCncon 06-08-19 Lipase [Catalytic activity/Vol] 22 U/L Normal 12-60 [facility] Comment on above: Order Comment: Speci men Type: BLOOD SPECIMENOrdering Facility: [facility] Address: [facility] [place] [id number] Performed By: #### 2 4325-3, 3040-3, ####[facility] LABORATORYCLIA [id number] [place] [id number] [place] Magnesium SerPl-mCncon 06-07 Magnesium [Mass/Vol] 1.5 mg/dL Low 1.6-2.6 [facility] Comment on above: Order Comment: Speci men Type: BLOOD SPECIMENOrdering Facility: [facility] Address: [facility] [place] [id number] Performed By: #### 2 4325-3, 3040-3, ####[facility] LABORATORYCLIA [id number] [place] [id number] [place] 36on 05-05-2023 36 Called the phone number in chart---not a working number--patient had a NCNS for a BP check today. Normal [facility] Progress Noteon 04-26-2023 Progress Note We will increase her Zoloft to 100 mg daily and have her follow-up in 3 to 4 weeks. Normal [facility] 36on 04-25-2023 36 Prescription Request: Last medication check: 03/21/23(hosp follow up) Last physical exam: none Next scheduled appointment: 04/25/23 Last date of refill on this medication 03/21/23 30 day no refill Normal [facility] Office Visiton 04-25-2023 Follow-up visit [id number] Dhaval Moon 2000 F Date Provider Department Center 04/25/2023 03555-SVENFQANTHONY BOOTH [facility] Family History Problem Relation Age of Onset High Blood Pressure Father No Known Problems Mother Family Status - Relation Status Age at Father Alive Mother Alive Level of Service:94574 MA OFFICE/OUTPATIENT ESTABLISHED MOD MDM 30 MIN Reason for Visit and Comments: Follow-up [369370] - 4 week Anxiety [9] ER Follow-up [831] - Several times - feet cellulitis and on atb feet are scabby and drainage very painful get spasms in feet Spasms [090896] - Whole body will be shake Letter for School/Work [202381] Blood Work [724050] - Wonders if need potassium checked Weight Loss [030618] - Pt concerned about 20lb weight loss in the last month Normal [facility] Progress Noteon 04-25-2023 Progress Note Stable, refill albuterol MDI and albuterol solution. Normal [facility] Progress Note Stable, she says she has not been drinking and she also thinks that the gabapentin is not working well for the neuropathy so we will switch her to Lyrica. OARRS report done, no inconsistencies, Rx sent Normal [facility] Progress Note Patient verified by last name and date of . Normal [facility] Progress Note 04/25/2023 Dhaval Moon (: 2000) [...] & Plan: Referral to wound center in [place] Orders: - pregabalin (Lyrica) 100 MG capsule; Take 1 capsule (100 mg) by mouth 3 times daily., Starting Mon04/25/2023, Until Mon05/25/2023, [facility]. Moderate [...] note. Anthony Booth MD 04/26/2023 8:15 AM [facility] 36on 04-21-2023 36 Called to [facility] for appointment with Dr. Booth on 04/24/23. Phone is not accepting calls at this time. If the patient calls back during business hours, please transfer to our backline. Otherwise, Please arrive 15 minutes early with your insurance card and photo ID. Thank you! [facility] ED NOTEon 04-21-2023 ED NOTE HNO ID: [id number] Author: MARISOL GRIFFITH LPN Service: ? Author Type: LICENSED NURSE Type: ED Notes Filed: 04/21/2023 19:21 Note Text: Pt called x2, no answer, LWBS after triage. [facility] 3604-18-2023 36 Called and was unable to LM--phone was not accepting phone calls at this time. She missed appt for a [address] Booth today. [place] [address]on 04-17-2023 36 Rx sent, needs to come in and sign a CS agreement OARRS report done, no inconsistencies [facility] 36 CSA not found. [facility] 36 Medication name: gabapentin (Neurontin) capsule [...] to picking up the medication: Yes Normal [facility] CBC W Auto Differential pane l (Bld)on 04-11-2023 Basophils (Bld) [#/Vol] 0.04 10*3/uL Normal <0.11 [facility] Comment on above: Order Comment: Janes merlos Type: BLOOD SPECIMEN [facility] Address: [address] [place] [address] Performed By: #### 5 7021-8, 4537-7 #### [facility] CLIA [id number] [address] [place] [address] [place] Basophils/100 WBC (Bld) 0.3 % Normal [facility] Comment on above: Order Comment: Janes merlos Type: BLOOD SPECIMEN [facility] Address: [address] [place] [address] Performed By: #### 5 7021-8, 4537-7 #### [facility] CLIA [id number] [address] [place] [address] [place] Differential cell count method Nom (Bld) Auto Normal [facility] Comment on above: Order Comment: Janes merlos Type: BLOOD SPECIMEN [facility] Address: [address] [place] [address] Performed By: #### 5 7021-8, 4537-7 #### [facility] CLIA [id number] [address] [place] [address] [place] Eosinophils (Bld) [#/Vol] 0.19 10*3/uL Normal <0.46 [facility] Comment on above: Order Comment: Speci men Type: BLOOD SPECIMEN [facility] Address: [address] [place] [address] Performed By: #### 5 7021-8, 4537-7 #### [facility] CLIA [id number] [address] [place] [address] [place] Eosinophils/100 WBC (Bld) 1.5 % Normal [facility] Comment on above: Order Comment: Speci men Type: BLOOD SPECIMEN [facility] Address: [address] [place] [address] Performed By: #### 5 7021-8, 4536-7 #### [facility] CLIA [id number] [address] [place] [address] [place] Erythrocyte distribution width (RBC) [Ratio] 13.1 % Normal 11.5-15.0 [facility] Comment on above: Order Comment: Speci men Type: BLOOD SPECIMEN [facility] Address: [address] [place] [address] Performed By: #### 5 7021-8, 453-7 #### [facility] CLIA [id number] [address] [place] [address] [place] Hematocrit (Bld) [Volume fraction] 43.1 % Normal 36.0-46.0 [facility] Comment on above: Order Comment: Speci men Type: BLOOD SPECIMEN [facility] Address: [address] [place] [address] Performed By: #### 5 7021-8, 4537-7 #### [facility] CLIA [id number] [address] [place] [address] [place] Hemoglobin (Bld) [Mass/Vol] 14.9 g/dL Normal 11.5-15.5 [facility] Comment on above: Order Comment: Speci men Type: BLOOD SPECIMEN [facility] Address: [address] [place] [address] Performed By: #### 5 7021-8, 4537-7 #### [facility] CLIA [id number] [address] [place] [address] [place] Immature granulocytes (Bld) [#/Vol] 0.06 10*3/uL Normal <0.10 [facility] Comment on above: Order Comment: Speci men Type: BLOOD SPECIMEN [facility] Address: [address] [place] [address] Performed By: #### 5 7021-8, 4537-7 #### [facility] CLIA [id number] [address] [place] [address] [place] Immature granulocytes/100 WBC (Bld) 0.5 % Normal [facility] Comment on above: Order Comment: Speci men Type: BLOOD SPECIMEN [facility] Address: [address] [place] [address] Performed By: #### 5 7021-8, 4537-7 #### [facility] CLIA [id number] [address] [place] [address] [place] Lymphocytes (Bld) [#/Vol] 1.66 10*3/uL Normal 1.00-4.00 [facility] Comment on above: Order Comment: Speci men Type: BLOOD SPECIMEN [facility] Address: [address] [place] [address] Performed By: #### 5 7021-8, 4537-7 #### [facility] CLIA [id number] [address] [place] [address] [place] Lymphocytes/100 WBC (Bld) 13.1 % Normal [facility] Comment on above: Order Comment: Speci men Type: BLOOD SPECIMEN [facility] Address: [address] [place] [address] Performed By: #### 5 7021-8, 4537-7 #### [facility] CLIA [id number] [address] [place] [address] [place] MCH (RBC) [Entitic mass] 34.4 pg High 26.0-34.0 [facility] Comment on above: Order Comment: Speci men Type: BLOOD SPECIMEN [facility] Address: [address] [place] [address] Performed By: #### 5 7021-8, 4537-7 #### [facility] CLIA [id number] [address] [place] [address] [place] MCHC (RBC) [Mass/Vol] 34.6 g/dL Normal 30.5-36.0 [facility] Comment on above: Order Comment: Speci men Type: BLOOD SPECIMEN [facility]: [facility] Address: [address] [place] [address] Performed By: #### 5 7021-8, 453-7 #### [facility] CLIA [id number] [address] [place] [address] [place] MCV (RBC) [Entitic vol] 99.5 fL Normal 80.0-100.0 [facility] Comment on above: Order Comment: Speci men Type: BLOOD SPECIMEN [facility] Address: [address] [place] [address] Performed By: #### 5 7021-8, 4536-7 #### [facility] CLIA [id number] [address] [place] [address] [place] Monocytes (Bld) [#/Vol] 1.03 10*3/uL High <0.87 [facility] Comment on above: Order Comment: Speci men Type: BLOOD SPECIMEN [facility]: [facility] Address: [address] [place] [address] Performed By: #### 5 7021-8, 4537-7 #### [facility] CLIA [id number] [address] [place] [address] [place] Monocytes/100 WBC (Bld) 8.1 % Normal [facility] Comment on above: Order Comment: Speci men Type: BLOOD SPECIMEN [facility] Address: [address] [place] [address] Performed By: #### 5 7021-8, 4537-7 #### [facility] CLIA [id number] [address] [place] [address] [place] Neutrophils (Bld) [#/Vol] 9.68 10*3/uL High 1.45-7.50 [facility] Comment on above: Order Comment: Speci men Type: BLOOD SPECIMEN [facility] Facility: [facility] Address: [address] [place] [address] Performed By: #### 5 7021-8, 4537-7 #### [facility] CLIA [id number] [address] [place] [address] [place] Neutrophils/100 WBC (Bld) 76.5 % Normal [facility] Comment on above: Order Comment: Speci men Type: BLOOD SPECIMEN [facility]ing [facility]: [facility] Address: [address] [place] [address] Performed By: #### 5 7021-8, 4537-7 #### [facility] CLIA [id number] [address] [place] [address] [place] Nucleated RBC (Bld) [#/Vol] 10*3/uL Normal <0.01 [facility] Comment on above: Order Comment: Speci men Type: BLOOD SPECIMEN [facility] Facility: [facility] Address: [address] [place] [address] Performed By: #### 5 7021-8, 7-7 #### [facility] CLIA [id number] [address] [place] [address] [place] Nucleated RBC/100 WBC (Bld) [Ratio] 0.0 /100 WBC Normal [facility] Comment on above: Order Comment: Speci men Type: BLOOD SPECIMEN [facility]: [facility] Address: [address] [place] [address] Performed By: #### 5 7021-8, 4537-7 #### [facility] CLIA [id number] [address] [place] [address] [place] Platelet mean volume (Bld) [Entitic vol] 11.4 fL Normal 9.0-12.7 [facility] Comment on above: Order Comment: Speci men Type: BLOOD SPECIMEN Ordering Facility: [facility] Address: [address] [place], [place] [address] Performed By: #### 5 7021-8, 4537-7 #### [facility] CLIA [id number] [address] [place], [place] [address] [place] Platelets (Bld) [#/Vol] 353 10*3/uL Normal 150-400 [facility] Comment on above: Order Comment: Speci men Type: BLOOD SPECIMEN [facility]ing Facility: [facility] Address: [address] [place] [address] Performed By: #### 5 7021-8, 4537-7 #### [facility] CLIA [id number] [address] [place] [address] [place] RBC (Bld) [#/Vol] 4.33 10*6/uL Normal 3.90-5.20 [facility] Comment on above: Order Comment: Speci men Type: BLOOD SPECIMEN [facility] [facility] Address: [address] [place], [place] [address] Performed By: #### 5 7021-8, 4537-7 #### [facility] CLIA [id number] [address] [place] [address] [place] WBC (Bld) [#/Vol] 12.66 10*3/uL High 3.70-11.00 [facility] Comment on above: Order Comment: Speci men Type: BLOOD SPECIMEN Ordering Facility: [facility] Address: [address] [place], [place] [address] Performed By: #### 5 7021-8, 4537-7 #### [facility] CLIA [id number] [address] [place] [address] [place] [facility] [place] CRP SerPl-mCncon 04-11-2023 CRP [Mass/Vol] 3.5 mg/dL High <1.0 [facility] Comment on above: Order Comment: Speci men Type: BLOOD SPECIMENOrdering Facility: [facility] Address: [address] [place] [address] Performed By: #### 2 4323-8, 5643-2, HCG, 1987-06 ####[facility] LABORATORYCLIA [id number] [place] [id number] [place] Comprehensive metabolic 2000 panelon 04-11-2023 Albumin [Mass/Vol] 3.6 g/dL Normal 3.2-5.0 [facility] Comment on above: Order Comment: Speci men Type: BLOOD SPECIMEN Ordering Facility: [facility] Address: [address] [place] [address] Performed By: #### 2 432-8, 5643-2, HCG, 1987-06 #### [facility] CLIA [id number] [address] [place], [place] [address] [place] ALP [Catalytic activity/Vol] 100 U/L Normal 45-117 [facility] Comment on above: Order Comment: Speci men Type: BLOOD SPECIMEN Ordering Facility: [facility] Address: [address] [place] [address] Performed By: #### 2 432-8, 5643-2, HCG, 1987-06 #### [facility] CLIA [id number] [address] [place], [place] [address] [place] ALT [Catalytic activity/Vol] 37 U/L Normal 13-61 [facility] Comment on above: Order Comment: Speci men Type: BLOOD SPECIMEN Ordering Facility: [facility] Address: [address] [place] [address] Result Comment: Resu lts may be falsely depressed after the administration of Sulfasalazine and/or Sulfapyridine. Performed By: #### 2 4323-8, 5643-2, HCG, 1987-06 #### [facility] CLIA [id number] [address] [place], [place] [address] [place] Anion gap [Moles/Vol] 14 mmol/L Normal 5-16 [facility] Comment on above: Order Comment: Speci men Type: BLOOD SPECIMEN Ordering Facility: [facility] Address: [address] [place] [address] Performed By: #### 2 4322-8, 5643-2, HCG, 1987-06 #### [facility] CLIA [id number] [address] [place], [place] [address] [place] AST [Catalytic activity/Vol] 59 U/L High 8-34 [facility] Comment on above: Order Comment: Speci men Type: BLOOD SPECIMEN Ordering Facility: [facility] Address: [address] [place] [address] Result Comment: Resu lts may be falsely depressed after the administration of Sulfasalazine and/or Sulfapyridine. Performed By: #### 2 432-8, 5643-2, HCG, 1987-06 #### [facility] CLIA [id number] [address] [place], [place] [address] [place] Bilirubin [Mass/Vol] 2.2 mg/dL High 0.2-1.0 [facility] Comment on above: Order Comment: Speci men Type: BLOOD SPECIMEN Ordering Facility: [facility] Address: [address] [place] [address] Performed By: #### 2 432-8, 43-2, HCG, 1987-06 #### [facility] CLIA [id number] [address] [place] [address] [place] Calcium [Mass/Vol] 10.1 mg/dL Normal 8.5-10.5 [facility] Comment on above: Order Comment: Speci men Type: BLOOD SPECIMEN Ordering Facility: [facility] Address: [address] [place] [address] Performed By: #### 2 4322-8, 5642-2, HCG, 1987-06 #### [facility] CLIA [id number] [address] [place], [place] [address] [place] Chloride [Moles/Vol] 102 mmol/L Normal 98-107 [facility] Comment on above: Order Comment: Speci men Type: BLOOD SPECIMEN Ordering Facility: [facility] Address: [address] [place] [address] Performed By: #### 2 432-8, 43-2, HCG, 1987-06 #### [facility] CLIA [id number] [address] [place] [address] [place] CO2 [Moles/Vol] 23 mmol/L Normal 21-32 [facility] Comment on above: Order Comment: Speci men Type: BLOOD SPECIMEN Ordering Facility: [facility] Address: [address] [place] [address] Performed By: #### 2 4323-8, 5643-2, [facility] [place], 1987-06 #### [facility] CLIA [id number] [address] [place] [address] [place] Creatinine [Mass/Vol] 0.38 mg/dL Low 0.51-0.95 [facility] Comment on above: Order Comment: Speci men Type: BLOOD SPECIMEN Ordering Facility: [facility] Address: [address] [place] [address] Result Comment: Jannie ents receiving either N-Acetylcysteine (NAC) or Metamizole prior to venipuncture, may have falsely depressed results. Performed By: #### 2 4323-8, 5643-2, HCG, 1987-06 #### [facility] CLIA [id number] [address] [place] [address] [place] Creatinine and Glomerular filtration rate.predicted panel (S/P/Bld) 145 mL/min/1.73m??? Normal >=60 [facility] Comment on above: Order Comment: Speci chelita Type: BLOOD SPECIMEN Ordering Facility: [facility] Address: [address] [place] [address] Result Comment: Mulu mated Glomerular Filtration Rate [...] #### 2 4323-8, 5643-2, HCG, 1987-06 #### [facility] CLIA [id number] [address] [place] [address] [place] Glucose [Mass/Vol] 81 mg/dL Normal 70-100 [facility] Comment on above: Order Comment: Janes merlos Type: BLOOD SPECIMEN Ordering Facility: [facility] Address: [address] [place] [address] Result Comment: The [place] [employer] (ADA) provides guidance for cutoff [...] Standards of Medical Care in Diabetes 2016, [place] [employer]. Diabetes Care. 2016.39(Suppl 1). Results may be falsely elevated after the administration of Sulfapyridine. Results may be falsely depressed after the administration of Sulfasalazine. Performed By: #### 2 4323-8, 5643-2, HCG, 1987-06 #### [facility] CLIA [id number] [address] [place] [address] [place] Potassium [Moles/Vol] 3.0 mmol/L Low 3.5-5.1 [facility] Comment on above: Order Comment: Janes merlos Type: BLOOD SPECIMEN Ordering Facility: [facility] Address: [address] [place] [address] Performed By: #### 2 4323-8, 5643-2, HCG, 1987-06 #### [facility] CLIA [id number] [address] [place] [address] [place] Protein [Mass/Vol] 8.5 g/dL Normal 6.0-8.5 [facility] Comment on above: Order Comment: Janes merlos Type: BLOOD SPECIMEN Ordering Facility: [facility] Address: [address] [place] [address] Performed By: #### 2 4323-8, 5643-2, HCG, 1987-06 #### [facility] CLIA [id number] [address] [place], [place] [address] [place] Sodium [Moles/Vol] 139 mmol/L Normal 136-145 [facility] Comment on above: Order Comment: Speci men Type: BLOOD SPECIMEN Ordering Facility: [facility] Address: [address] [place] [address] Performed By: #### 2 4323-8, 5643-2, HCG, 1987-06 #### [facility] CLIA [id number] [address] [place], [place] [address] [place] Urea nitrogen [Mass/Vol] mg/dL Low 7- [facility] Comment on above: Order Comment: Speci men Type: BLOOD SPECIMEN Ordering Facility: [facility] Address: [address] [place] [address] Performed By: #### 2 4323-8, 5643-2, HCG, 1987-06 #### [facility] CLIA [id number] [address] [place], [place] [address] [place] ED NOTEon 04-11-2023 ED NOTE HNO ID: [id number] Author: MARCUS ZAYAS RN Service: ASSESSMENT Author Type: Registered Nurse Type: ED Notes Filed: 04/11/2023 19:56 Note Text: Pt understands d/c instructions, all questions answeered. Ride on the way. [facility] ED NOTE HNO ID: [id number] Author: YECENIA LUJAN RN Service: ? Author Type: Registered Nurse Type: ED Notes Filed: 04/11/2023 14:45 Note Text: Noted redness and edema of a cellultitc nature to ble [facility] ED PROV NOTEon 04-11-2023 ED PROV NOTE HNO ID: [id number] Author: CHARLY IRVING JR, MD Service: ? Author Type: Physician Type: ED Provider Notes Filed: 04/11/2023 19:42 Note Text: ED Provider Note Patient Name: Dhaval Moon : 2000 SERVICE DATE: 04/11/23 History Patient presents with: Edema: Cellulitis starting 2 weeks ago, was in [facility] 4 times for same HPI PAST [...] 9.68 (*) 1.45 - 7.50 k/uL Abs [place] 1.03 (*) <0.87 k/uL All other components [...] laboratory APTT reagent in use throughout the [facility]. 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 Multiple imaging [...] this as a (more content not included)... [facility] ED PROV NOTE HNO ID: [id number] Author: WENDY HAINES PA-C Service: ? Author Type: Physician Instructor Physical Type: ED Provider Notes Filed: 04/11/2023 19:46 Note Text: ED Provider Note Patient Name: Dhaval Moon : 2000 SERVICE DATE: 04/11/23 History Patient presents with: Edema: Cellulitis starting 2 weeks ago, was in [facility] 4 times for same 22-year-old female [...] temperature at home. Patient was seen at [facility] emergency department last week reportedly and [...] 9.68 (*) 1.45 - 7.50 k/uL Abs [place] 1.03 (*) <0.87 k/uL All other components [...] laboratory APTT reagent in use throughout the [facility]. ALCOHOL/ETHANOL BLD - Normal HCG QUAL BLD - Normal XR FOOT GENERAL 3V AP/LAT/OBL BILATERAL Final Result IMPRESSION: Bilateral foot soft tissue sw (more content not included)... Normal [facility] ED Triage Noteon 04-11-2023 ED Triage Note HNO ID: [id number] Author: JAYNE SANTO PA-C Service: ? Author Type: Physician Instructor Physical Type: ED Triage Notes Filed: 04/11/2023 15:05 [...] diagnosis found. SIGNATURE: Jayne Santo PA-C Normal [facility] ESR Westergren method (Bld) [Velocity]on 04-11-2023 ESR (Bld) [Velocity] 36 mm/h High 0-20 [facility] Comment on above: Order Comment: Speci men Type: BLOOD SPECIMEN Ordering Facility: [facility] Address: [address] [place] [address] Performed By: #### 5 7021-8, 4537-7 #### [facility] CLIA [id number] [address] [place] [address] [place] Ethanol SerPl-mCncon 024 Ethanol [Mass/Vol] mg/dL Normal <0.010 [facility] Comment on above: Order Comment: Speci men Type: BLOOD SPECIMEN Ordering Facility: [facility] Address: [address] [place] [address] Performed By: #### 2 4323-8, 5643-2, HCG, 1987-06 #### [facility] CLIA [id number] [address] [place], [place] [address] [place] HCG QUAL BLDon 04-11-2023 HCG, QUALITATIVE Negative Normal Negative [facility] Comment on above: Order Comment: Speci men Type: BLOOD SPECIMEN Ordering Facility: [facility] Address: [address] [place] [address] Performed By: #### 2 4323-8, 5643-2, HCG, 1987-06 #### [facility] CLIA [id number] [address] [place], [place] [address] [place] PT panel Coag (PPP)on 2023 INR Coag (PPP) [Relative time] 1.0 {INR} Normal 0.9-1.3 [facility] Comment on above: Order Comment: Speci men Type: BLOOD SPECIMEN Ordering Facility: [facility] Address: [address] [place] [address] Result Comment: Carline min K Antagonist (VKA) Therapeutic Range: INR 2 to 3 (Target INR of 2.5) Note: For patients treated with VKA drugs, such as warfarin, the [place] [employer] 2012 Guideline recommends [...] Chest 2012, 141:7S-47S Barry RA, et al. [facility] 2017, 70: 252-289 Performed By: #### 3 4528-0, 71663-3 #### [facility] CLIA [id number] [address] [place] [address] [place] PT Coag (PPP) [Time] 11.3 s Normal 9.7-13.0 [facility] Comment on above: Order Comment: Speci men Type: BLOOD SPECIMEN Ordering Facility: [facility] Address: [address] [place] [address] Performed By: #### 3 4528-0, 11287-8 #### [facility] CLIA [id number] [address] [place] [address] [place] US LEG VEIN DVT HELADIO VAS LABo n 04-11-2023 LEG VEIN DVT [facility] LAB Non-Invasive Vascular Laboratory [facility] Lower Extremity Venous Duplex Bilateral/Complete Date of [...] and small saphenous vein. Technologist: Darcy Eid [facility] Ordering physician: JAYNE SANTO Interpreting physician: Mary Gonzalez MD Final CC [facility] Image : [id number] goDynamicsSISUID See Link below for Image Normal [facility] Urinalysis complete panel (U )on 04-11-2023 Bacteria LM.HPF (Urine sed) [#/Area] Rare Abnormal None Seen [facility] Comment on above: Order Comment: Speci men Type: URINE SPECIMENOrdering Facility: [facility] Address: [address] [place] [address] Performed By: #### 2 4356-8 ####[facility] LABORATORYCLIA [id number] [address] [place] Bilirubin Ql (U) Negative Normal Negative [facility] Comment on above: Order Comment: Speci men Type: URINE SPECIMENOrdering Facility: [facility] Address: [address] [place] [address] Performed By: #### 2 4356-8 ####[facility] LABORATORYCLIA [id number] [address] Clarity (Unsp spec) Clear Normal Clear [facility] Comment on above: Order Comment: Speci men Type: URINE SPECIMENOrdering Facility: [facility] Address: [address] [place] [address] Performed By: #### 2 4356-8 ####[facility] LABORATORYIA [id number] [address] [place] Color (U) Yellow Normal Yellow [facility] Comment on above: Order Comment: Speci men Type: URINE SPECIMENOrdering Facility: [facility] Address: [address] [place] [address] Performed By: #### 2 4356-8 ####[facility] [id number] [address] [place] Epithelial cells LM.HPF (Urine sed) [#/Area] Few Normal [facility] Comment on above: Order Comment: Speci men Type: URINE SPECIMENOrdering Facility: [facility] Address: [address] [place] [address] Performed By: #### 2 4356-8 ####[facility] LABORATORYIA [id number] [address] [place] Glucose Test strip (U) [Mass/Vol] Negative Normal Negative [facility] Comment on above: Order Comment: Speci men Type: URINE SPECIMENOrdering Facility: [facility] Address: [address] [place] [address] Performed By: #### 2 4356-8 ####[facility] LABORATORYCLIA [id number] [address] [place] Hemoglobin Ql (U) Negative Normal Negative [facility] Comment on above: Order Comment: Speci men Type: URINE SPECIMENOrdering Facility: [facility] Address: [address] [place] [address] Performed By: #### 2 4356-8 ####[facility] LABORATORYCLIA [id number] [place] [address] [place] Hyaline casts (Urine sed) [#/Area] /[LPF] Abnormal 0 /LPF [facility] Comment on above: Order Comment: Speci men Type: URINE SPECIMENOrdering Facility: [facility] Address: [address] [place] [address] Performed By: #### 2 4356-8 ####[facility] LABORATORYCLIA [id number] [address] [place] Ketones Ql (U) 2+ Abnormal Negative [facility] Comment on above: Order Comment: Speci men Type: URINE SPECIMENOrdering Facility: [facility] Address: [address] [place] [address] Performed By: #### 2 4356-8 ####[facility] LABORATORYCLIA [id number] [address] Leukocyte esterase Test strip Ql (U) Negative Normal Negative [facility] Comment on above: Order Comment: Speci men Type: URINE SPECIMENOrdering Facility: [facility] Address: [address] [place] [address] Performed By: #### 2 4356-8 ####[facility] LABORATORYCLIA [id number] [address] [place] Nitrite Ql (U) Negative Normal Negative [facility] Comment on above: Order Comment: Speci men Type: URINE SPECIMENOrdering Facility: [facility] Address: [address] [place] [address] Performed By: #### 2 4356-8 ####[facility] LABORATORYCLIA [id number] [place] [id number] [place] pH (U) 6.0 [pH] Normal 5.0-8.0 [facility] Comment on above: Order Comment: Speci men Type: URINE SPECIMENOrdering Facility: [facility] Address: [address] [place] [address] Performed By: #### 2 4356-8 ####[facility] LABORATORYCLIA [id number] [place] [address] [place] Protein (U) [Mass/Vol] 1+ Abnormal Negative [facility] Comment on above: Order Comment: Speci men Type: URINE SPECIMENOrdering Facility: [facility] Address: [address] [place] [address] Performed By: #### 2 4356-8 ####[facility] LABORATORYCLIA [id number] [place] [address] [place] RBC LM.HPF (Urine sed) [#/Area] 0-3 /HPF Normal 0-3 /HPF [facility] Comment on above: Order Comment: Speci men Type: URINE SPECIMENOrdering Facility: [facility] Address: [address] [place] [address] Performed By: #### 2 4356-8 ####[facility] LABORATORYCLIA [id number] [place] [address] [place] Specific gravity (U) [Rel density] 1.020 Normal 1.005-1.030 [facility] Comment on above: Order Comment: Speci men Type: URINE SPECIMENOrdering Facility: [facility] Address: [address] [place] [address] Performed By: #### 2 4356-8 ####[facility] LABORATORYCLIA [id number] [address] [place] Urobilinogen Ql (U) 1+ Abnormal Negative [facility] Comment on above: Order Comment: Speci men Type: URINE SPECIMENOrdering Facility: [facility] Address: [address] [place] [address] Performed By: #### 2 4356-8 ####[facility] LABORATORYCLIA [id number] [place] [id number] [facility] WBC LM.HPF (Urine sed) [#/Area] 0-5 /HPF Normal 0-5 /HPF [facility] Comment on above: Order Comment: Speci men Type: URINE SPECIMENOrdering Facility: [facility] Address: [address] [place], [place] [address] Performed By: #### 2 4356-8 ####[facility] LABORATORYCLIA [id number] [place] [id number] [facility] XR FOOT 3V AP/LAT/OBL BILon 04-11-2023 [...] tissue swelling without underlying acute osseous abnormality. Inside Sales Consultant: PSCB Transcribe Date/Time: Apr 11 2023 5:36P Dictated by : MARY COLE MD This examination was interpreted and the report reviewed and electronically signed by: MARY COLE MD on Apr 11 2023 5:39PM EST [id number] Normal [facility] aPTT PPPon 04-11-2023 aPTT Coag (PPP) [Time] 27.9 s Normal 23.0-32.4 [facility] Comment on above: Order Comment: Speci men Type: BLOOD SPECIMEN Ordering Facility: [facility] Address: [address] [place] [address] [place] [address] Performed By: #### 3 4528-0, 56533-8 #### [facility] CLIA [id number] [address] [place] [address] [facility] [place] Office Visiton 03-21-2023 Follow-up visit [id number] Dhaval Moon 2000 F Date Provider Department Center 03/21/2023 [id number]-ABYWMDANTHONY BOOTH [facility] Family History Problem Relation Age of Onset High Blood Pressure Father No Known Problems Mother Family Status - Relation Status Age at Father Alive Mother Alive Level of Service:28567 MA OFFICE/OUTPATIENT ESTABLISHED MOD MDM 30 MIN Reason for Visit and Comments: Hospital Follow-up [832] - [facility] 04/08/22- Was told have thyroid issue but they did not treat due to medications she was on Alcohol Problem [3] - Need to get into treatment Hypertension [783564] neuropathy [Other] Anemia [952611] Anxiety [9] Depression [32] - Bipolar Normal [facility] Progress Noteon 03-21-2023 Progress Note Uncontrolled, Zoloft 50 mg daily follow-up in 3 to 4 weeks Normal [facility] Progress Note Encourage patient to go online and get the number for Alcoholics Anonymous to be put in touch with a sponsor IBRAHIMA to keep her from going back on the alcohol. Normal [facility] Center Progress Note Repeat CBC today Normal [facility] Progress Note Repeat lab work today for confirmation. Normal [facility] Progress Note Encourage patient to continue weight loss with diet and exercise. Normal [facility] Progress Note Stable, we will refill her albuterol inhaler Normal [facility] Progress Note Gabapentin will increase that to 300 mg 3 times a day OARRS report done, no inconsistencies, CS agreement will need to sign and also get her into some physical therapy. Normal [facility] Progress Note Will refer patient to physical therapy for strengthening and weightbearing and balance Normal [facility] Progress Note 03/21/2023 Dhaval Moon (: 2000) is a 22 y.o. female , Established patient, here for evaluation of the following chief complaint(s): Hospital Follow-up ([facility] 04/08/22-//Wa s told have thyroid issue [...] her into some physical therapy. Orders: - [facility] 5. Weakness of both lower extremities Assessment & Plan: Will refer patient to physical therapy for strengthening and weightbearing and balance Orders: - [facility] 6. Acquired hypothyroidism Assessment & [...] Anthony Booth MD 03/21/2023 11:52 AM Normal [facility] Progress Note Patient verified by last name and date of . Normal [facility] CT Brain wo contraston 03-08 CT Brain wo contrast CT HEAD: CLINICAL INDICATION: [id number]: Dizziness TECHNIQUE: Transaxial CT sequence performed through [...] YENI RIDDLE MD, MD Date: 03/08/2023 07:35 [facility] CTA Chest w/wo contraston CTA Chest [...] YENI RIDDLE MD, MD Date: 03/08/2023 07:45 [facility] Comment on above: Order Comment: For P E No Panel InformationOrdered By: Oh Vaz on 10-27-2022 P [place] 59 degrees [facility] Work Phone: MA Interval 152 ms [facility] Work Phone: QRS [place] 16 degrees [employer] Work Phone: QRSD Interval 88 ms [employer] Work Phone: QT Interval 342 ms [employer] Work Phone: QTC Interval 494 ms [facility] Work Phone: T Wave [place] -27 degrees [facility] Work Phone: [employer] Work Phone: No Panel Informationon 10-27 Sinus tachycardia Borderline prolonged QT interval Electronically Signed On 10-27-2022 3:40:42 EDT by Oh Vaz [employer] MD - 10/27/2022 IMPRESSION: Sinus tachycardia Borderline prolonged QT interval Electronically Signed On 10-27-2022 3:40:42 EDT by Oh Vaz [facility] Vital signsOrdered By: Oh Vaz on 10-27-2022 Heart rate 125 /min bpm Pull Phone: CT Abdomen/Pelvis w/ Contras ton 02-18-2021 CT Abdomen/Pelvis w/ Contrast Patient Name: DHAVAL MOON Computed Tomography ACCESSION EXAM DATE/TIME PROCEDURE ORDERING PROVIDER [id number] 02/18/2021 20:[address] Abdomen/Pelvis w/ IV [id number] DEDRA ESQUIVEL Contrast (IV Onl CPT code 56069 Q9967 Reason For Exam (CT Abdomen/Pelvis w/ [...] Transcribed Date and Time: 02/18/2021 8:58 Normal [facility] Comp Metabolic Panelon 02-18 ALT [Catalytic activity/Vol] 59 U/L High 0-34 [facility] Comment on above: Result Comment: The ALT test is performed by an updated assay method. Please note that the reference intervals have been changed and are now sex specific. Performed By: #### H EMDF, CMP3, QWAL2, LIPA4 #### [facility] [address] [place] [address] Calcium [Mass/Vol] 9.7 mg/dL Normal 8.4-10.4 [facility] Comment on above: Performed By: #### H EMDF, CMP3, QWAL2, LIPA4 #### [facility] [address] [place] [address] Glucose [Mass/Vol] 107 mg/dL High 70-100 [facility] Comment on above: Performed By: #### H EMDF, CMP3, QWAL2, LIPA4 #### [facility] [address] [place] [address] Urea nitrogen [Mass/Vol] 7 mg/dL Low 9-20 [facility] Comment on above: Performed By: #### H EMDF, CMP3, QWAL2, LIPA4 #### [facility] [address] [place] [address] ALP [Catalytic activity/Vol] 81 U/L Normal 38-126 [facility] Comment on above: Result Comment: Slig htly hemolysed, interpret with caution. Performed By: #### H EMDF, CMP3, QWAL2, LIPA4 #### [facility] [address], [place] Anion gap [Moles/Vol] 9 mmol/L Normal 3-13 [facility] Comment on above: Performed By: #### H EMDF, CMP3, QWAL2, LIPA4 #### [place] [address] [address], [place] AST [Catalytic activity/Vol] 67 U/L High 15-46 [facility] Comment on above: Result Comment: Slig htly hemolysed, interpret with caution. Performed By: #### H EMDF, CMP3, QWAL2, LIPA4 #### [place] [address] [address], [place] Bilirubin [Mass/Vol] 1.0 mg/dL Normal 0.2-1.3 [facility] Comment on above: Performed By: #### H EMDF, CMP3, QWAL2, LIPA4 #### [place] [address] [address] [place], [place] CO2 [Moles/Vol] 24 mmol/L Normal 22-30 [facility] Comment on above: Performed By: #### H EMDF, CMP3, QWAL2, LIPA4 #### [place] [address] [address] [place], [place] Creatinine [Mass/Vol] 0.59 mg/dL Normal 0.52-1.25 [facility] Comment on above: Performed By: #### H EMDF, CMP3, QWAL2, LIPA4 #### [place] [address] [address], [place] eGFR OTHER > 90.0 Normal >60 [facility] Comment on above: Result Comment: KDIG O [...] #### H EMDF, CMP3, QWAL2, LIPA4 #### [address] [address] GFR/1.73 sq M.predicted among blacks MDRD (S/P/Bld) [Vol rate/Area] mL/min/{1.73_m2} Normal >60 [facility] Comment on above: Performed By: #### H EMDF, CMP3, QWAL2, LIPA4 #### [place] [address] [place], [place] Protein [Mass/Vol] 9.1 g/dL High 6.3-8.2 [facility] Comment on above: Performed By: #### H EMDF, CMP3, QWAL2, LIPA4 #### [address] Chloride [Moles/Vol] 102 mmol/L Normal 98-107 [facility] Comment on above: Performed By: #### H EMDF, CMP3, QWAL2, LIPA4 #### [address] Potassium [Moles/Vol] 4.8 mmol/L Normal 3.5-5.1 [facility] Comment on above: Result Comment: Slig htly hemolysed, interpret with caution. Performed By: #### H EMDF, CMP3, QWAL2, LIPA4 #### [address] Sodium [Moles/Vol] 136 mmol/L Normal 135-145 [facility] Comment on above: Performed By: #### H EMDF, CMP3, QWAL2, LIPA4 #### [address] Albumin [Mass/Vol] 4.7 g/dL Normal 3.5-5.0 [facility] Comment on above: Performed By: #### H EMDF, CMP3, QWAL2, LIPA4 #### [place] [address] [address] [place], [place] Complete Urinalysison 2021 Appearance (U) Clear Normal Clear [facility] Comment on above: Result Comment: . Performed By: #### C UA2 #### [place] [address] [address] [place], [place] Bilirubin,Urine Negative Normal Negative [facility] Comment on above: Result Comment: . Performed By: #### C UA2 #### [place] [address] [address] [place], [place] Color (U) Light-Yellow Normal Lt. Yellow [facility] Comment on above: Result Comment: . Performed By: #### C UA2 #### [place] [address] [address] [place], [place] Glucose Ql (U) Normal Normal Normal (<70) [facility] Comment on above: Result Comment: . Performed By: #### C UA2 #### [place] [address] [address] [place], [place] Ketone,Urine Negative Normal Negative [facility] Comment on above: Result Comment: . Performed By: #### C UA2 #### [place] [address] [address] [place], [place] Leukocytes,Urine Negative Normal Negative [facility] Comment on above: Result Comment: . Performed By: #### C UA2 #### [place] [address] [address] [place], [place] Nitrites,Urine Negative Normal Negative [facility] Comment on above: Result Comment: . Performed By: #### C UA2 #### [place] [address] [address] [place], [place] Occult Blood,Urine Negative Normal Negative [facility] Comment on above: Result Comment: . Performed By: #### C UA2 #### [place] [address] [address] [place], [place] pH,Urine 7.0 Normal 5.0-8.0 [facility] Comment on above: Result Comment: . Performed By: #### C UA2 #### [facility] [address], [place] Specific [place],Urine 1.014 Normal 1.005 - 1.030 [facility] Comment on above: Result Comment: . Performed By: #### C UA2 #### [facility] [address], [place] Total Protein,Urine Negative Normal Negative [facility] Comment on above: Result Comment: . Performed By: #### C UA2 #### [facility] [address], [place] Urobilinogen,Urine Normal Normal Normal (0-1) [facility] Comment on above: Result Comment: . Performed By: #### C UA2 #### [facility] [address], [place] ED Provider Noteon ED Provider Note [...] and Family: Not on file ? Attends Worship Services: Not on file ? Active Member [...] sounds: No (more content not included)... Normal [facility] ED Provider Note Emergency Department Encounter [facility] EMERGENCY DEPT Patient: Dhaval Moon : 2000 Date of Evaluation: 02/18/2021 ED Provider: ROMI Diamond As the [id number] , I performed a medical screening history [...] [employer] ROMI Diamond 02/18/21 1712 Normal [facility] Hemogram w/ Autodiffon 02-18 Abs Baso Cnt 0.0 10*3/uL Normal 0.0-0.2 [facility] Comment on above: Performed By: #### H EMDF, CMP3, QWAL2, LIPA4 #### [facility] [address] [place] [address] Abs Neutrophile Cnt 8.0 10*3/uL High 1.8-7.0 [facility] Comment on above: Performed By: #### H EMDF, CMP3, QWAL2, LIPA4 #### [facility] [address] [place] [address] Basophils/100 WBC (Bld) 0.3 % Normal 0.0-2.0 [facility] Comment on above: Performed By: #### H EMDF, CMP3, QWAL2, LIPA4 #### [facility] [address] [place] [address] Eosinophils (Bld) [#/Vol] 0.2 10*3/uL Normal 0.0-0.5 [facility] Comment on above: Performed By: #### H EMDF, CMP3, QWAL2, LIPA4 #### [place] [address] [address] [place], [place] Eosinophils/100 WBC (Bld) 1.6 % Normal 1.0-6.0 [facility] Comment on above: Performed By: #### H EMDF, CMP3, QWAL2, LIPA4 #### [place] [address] [address] [place], [place] Erythrocyte distribution width (RBC) [Ratio] 14.2 % Normal 11.5-14.5 [facility] Comment on above: Performed By: #### H EMDF, CMP3, QWAL2, LIPA4 #### [place] [address] [place], [place] Granulocytes/100 WBC (Bld) 72.8 % Normal 40.0-80.0 [facility] Comment on above: Performed By: #### H EMDF, CMP3, QWAL2, LIPA4 #### [place] [address] [place], [place] Hematocrit (Bld) [Volume fraction] 45.9 % Normal 35.0-47.0 [facility] Comment on above: Performed By: #### H EMDF, CMP3, QWAL2, LIPA4 #### [place] [address] [address] [place], [place] Hemoglobin (Bld) [Mass/Vol] 14.9 g/dL Normal 11.7-16.0 [facility] Comment on above: Performed By: #### H EMDF, CMP3, QWAL2, LIPA4 #### [place] [address] [address] [place], [place] Lymphocytes (Bld) [#/Vol] 1.7 10*3/uL Normal 1.0-4.3 [facility] Comment on above: Performed By: #### H EMDF, CMP3, QWAL2, LIPA4 #### [place] [address] [place], [place] Lymphocytes/100 WBC (Bld) 15.7 % Low 20.0-40.0 [facility] Comment on above: Performed By: #### H EMDF, CMP3, QWAL2, LIPA4 #### [place] [address] [address] [place], [place] MCH (RBC) [Entitic mass] 30.0 pg Normal 26.0-34.0 [facility] Comment on above: Performed By: #### H EMDF, CMP3, QWAL2, LIPA4 #### [place] [address] [place], [place] MCHC 32.4 % Normal 32.0-36.0 [facility] Comment on above: Performed By: #### H EMDF, CMP3, QWAL2, LIPA4 #### [address] MCV (RBC) [Entitic vol] 92.6 fL Normal 79.0-98.0 [facility] Comment on above: Performed By: #### H EMDF, CMP3, QWAL2, LIPA4 #### [address] Monocytes (Bld) [#/Vol] 1.1 10*3/uL High 0.0-0.8 [facility] Comment on above: Performed By: #### H EMDF, CMP3, QWAL2, LIPA4 #### [address] Monocytes/100 WBC (Bld) 9.6 % Normal 2.0-10.0 [facility] Comment on above: Performed By: #### H EMDF, CMP3, QWAL2, LIPA4 #### [place] [address] [place], [place] Platelet mean volume (Bld) [Entitic vol] 9.4 fL Normal 7.4-10.4 [facility] Comment on above: Performed By: #### H EMDF, CMP3, QWAL2, LIPA4 #### [address] Platelets (Bld) [#/Vol] 324 10*3/uL Normal 140-440 [facility] Comment on above: Performed By: #### H EMDF, CMP3, QWAL2, LIPA4 #### [place] [address] [place] [address] RBC (Bld) [#/Vol] 4.96 10*6/uL Normal 3.80-5.20 [facility] Comment on above: Performed By: #### H EMDF, CMP3, QWAL2, LIPA4 #### [facility] [address] [place] [address] WBC (Bld) [#/Vol] 11.0 10*3/uL High 3.6-10.7 [facility] Comment on above: Performed By: #### H EMDF, CMP3, QWAL2, LIPA4 #### [place] [address] [address] [place], [place] Lipaseon 02-18-2021 Lipase [Catalytic activity/Vol] 40 U/L Normal 23-300 [facility] Comment on above: Performed By: #### H EMDF, CMP3, QWAL2, LIPA4 #### [place] [address] [address] [place], [place] US Abdomen Limitedon 022 US Abdomen Limited Patient Name: DHAVAL MOON Ultrasound ACCESSION EXAM DATE/TIME PROCEDURE ORDERING PROVIDER [id number] 02/18/2021 16:08 EST US Abdomen Limited [id number] DEDRA ESQUIVEL CPT code 93782 Reason For Exam (US Abdomen Limited) RUQ [...] Transcribed Date and Time: 02/18/2021 4:21 Normal [facility] hCG Qual [place] 02-18-2021 hCG Qual Preg Negative Normal [facility] Comment on above: Result Comment: Refe rence Range: NEGATIVE Effective 04/26/2019, the reference interval for the qualitative test has been updated. This test detects hCG at concentrations of 10 mIU/L or greater in serum. Performed By: #### H EMDF, CMP3, QWAL2, LIPA4 #### [facility] [address] [place] [id number] CNOVon 01-17-2019 CNOV Office Visit (UCWSTR) ---- DHAVAL MOON ([id number]) 89 F Date Time Provider Department 01/17/19 [...] Apnea spell [R06.81] Order(s):XR CHEST 2V FRONTAL/LAT [[id number]] Order #: [id number] #:[id number] dextromethorphan-gu aiFENesin (MUCINEX DM) 30-600 mg per [...] 0 CONSULT TO SLEEP MEDICINE - ADULT [[id number]] Order #: [id number]: [id number] Prescriptions as of 01/17/2019 Sig: PROAIR [...] Status:Closed by ROSANNE PENA on 01/17/19 Normal [facility] PROGRESSon 01-17-2019 PROGRESS HNO ID: [id number] Author: Vadim Oliva (Tech) Service: ? Author Type: Store Deli Manager Type: Progress Notes Filed: 01/17/2019 6:05 PM [...] Oliva January 17, 2019 5:50 PM Normal [facility] PROGRESS HNO ID: [id number] Author: Rosanne Pena (Pa) Service: ? Author Type: Physician Instructor Physical Type: Progress Notes Filed: 01/17/2019 7:14 PM [...] with the plan. Rosanne Pena PA-C Normal [facility] XR CHEST 2V FRONTAL/LATon XR CHEST 2V [...] OTHER: N/A IMPRESSION: No acute cardiopulmonary process. Inside Sales Consultant: PSCB Transcribe Date/Time: Jan 17 2019 6:17P Dictated by : REGINE BRANTLEY MD This examination was interpreted and the report reviewed and electronically signed by: REGINE BRANTLEY MD on Jan 17 2019 6:19PM EST [id number] Normal [facility] Vital Signs Date Time Vital Sign Value Performing Clinician Kayi carlita 09-02-2023 08:34-0400 Diastolic blood pressure 70 mm[Hg] Billie [employer] DO Work Phone: [facility] 09-02-2023 08:34-0400 Heart rate 95 /min [employer] DO Work Phone: [employer] 09-02-2023 08:34-0400 Respiratory rate 18 /min Billie [employer] DO Work Phone: [employer] 09-02-2023 08:34-0400 SaO2% (BldA) [Mass fraction] 97 % [employer] DO Work Phone: [facility] 09-02-2023 08:34-0400 Systolic blood pressure 107 mm[Hg] Billie [employer] DO Work Phone: [employer] [facility] 09-02-2023 02:07-0400 Body temperature 98.49 [degF] Billie [employer] DO Work Phone: [employer] 08-18-2023 09:55-0400 Diastolic Blood Pressure Non-Invasive 86 mm[Hg] DR REGINE CONRAD MD [facility] 08-18-2023 09:55-0400 Heart rate 98 /min DR REGINE CONRAD MD [facility] 08-18-2023 09:55-0400 Respiratory rate 18 /min DR REGINE CONRAD MD [facility] 08-18-2023 09:55-0400 Systolic Blood Pressure Non-Invasive 137 mm[Hg] DR REGINE CONRAD MD [facility] 08-18-2023 06:05-0400 Diastolic Blood Pressure Non-Invasive 77 mm[Hg] DR REGINE CONRAD MD [facility] 08-18-2023 06:05-0400 Heart rate 98 /min DR REGINE CONRAD MD [facility] 08-18-2023 06:05-0400 Respiratory rate 18 /min DR REGINE CONRAD MD [facility] 08-18-2023 06:05-0400 Systolic Blood Pressure Non-Invasive 129 mm[Hg] DR REGINE CONRAD MD [facility] 08-17-2023 23:01-0400 Heart rate 98 /min DR REGINE CONRAD MD [facility] 08-17-2023 23:01-0400 Respiratory rate 18 /min DR REGINE CONRAD MD [facility] 08-17-2023 20:02-0400 Body height [address] REGINE CONRAD MD [facility] 08-17-2023 20:02-0400 Body temperature 98.78 [degF] DR REGINE CONRAD MD [facility] 08-17-2023 20:02-0400 Body weight 111.[address] REGINE CONRAD MD [facility] 08-17-2023 20:02-0400 Diastolic Blood Pressure Non-Invasive 87 mm[Hg] DR REGINE CONRAD MD [facility] 08-17-2023 20:02-0400 Systolic Blood Pressure Non-Invasive 142 mm[Hg] DR REGINE CONRAD MD [facility] 06-28-2023 10:35-0400 Diastolic blood pressure 90 mm[Hg] Anthony Booth MD Work Phone: [facility] [employer] 06-28-2023 10:35-0400 Heart rate 105 /min Anthony Booth MD Work Phone: [facility] 06-28-2023 10:35-0400 Systolic blood pressure 136 mm[Hg] Anthony Booth MD Work Phone: [facility] 06-28-2023 09:49-0400 Body height 157.5 cm Anthony Booth MD Work Phone: [employer] 06-28-2023 09:49-0400 Body mass index (BMI) [Ratio] 47.55 kg/m2 Anthony Booth MD Work Phone: [facility] 06-28-2023 09:49-0400 Body weight 117.94 kg Anthony Booth MD Work Phone: [facility] 06-28-2023 09:49-0400 SaO2% (BldA) [Mass fraction] 97 % Anthony Booth MD Work Phone: [employer] 04-25-2023 15:10-0400 Diastolic blood pressure 98 mm[Hg] Anthony Booth MD Work Phone: [employer] 04-25-2023 15:10-0400 Heart rate 125 /min Anthony Booth MD Work Phone: [employer] [facility] 04-25-2023 15:10-0400 Systolic blood pressure 153 mm[Hg] Anthony Booth MD Work Phone: [facility] 04-25-2023 14:37-0400 Body height 157.5 cm Anthony Booth MD Work Phone: [facility] 04-25-2023 14:37-0400 Body mass index (BMI) [Ratio] 50.22 kg/m2 Anthoyn Booth MD Work Phone: [facility] 04-25-2023 14:37-0400 Body weight 124.56 kg Anthony Booth MD Work Phone: [facility] 04-25-2023 14:37-0400 SaO2% (BldA) [Mass fraction] 91 % Anthony Booth MD Work Phone: [facility] 04-07-2023 16:51-0500 Body height 157.48 cm [facility] Work Phone: [facility] 04-07-2023 16:51-0500 Body temperature 99.4 [degF] [facility] [place] [facility] Work Phone: [facility] 04-07-2023 16:51-0500 Body weight 135.63 kg [facility] [place] [facility] Work Phone: [facility] 04-07-2023 16:51-0500 Diastolic blood pressure 52 mm[Hg] [facility] Work Phone: [facility] 04-07-2023 16:51-0500 Heart rate 119 /min [facility] [place] [facility] Work Phone: [facility] 04-07-2023 16:51-0500 Respiratory rate 20 /min [facility] Work Phone: [facility] 04-07-2023 16:51-0500 SaO2% (BldA) [Mass fraction] 98 % [facility] Work Phone: [facility] 04-07-2023 16:51-0500 Systolic blood pressure 102 mm[Hg] [facility] Work Phone: [facility] 04-02-2023 04:34-0500 Diastolic blood pressure 97 mm[Hg] [facility] Work Phone: [facility] 04-02-2023 04:34-0500 Heart rate 120 /min [facility] Work Phone: [facility] 04-02-2023 04:34-0500 Respiratory rate 20 /min [facility] Work Phone: [facility] 04-02-2023 04:34-0500 SaO2% (BldA) [Mass fraction] 97 % [facility] Work Phone: [facility] 04-02-2023 04:34-0500 Systolic blood pressure 140 mm[Hg] [facility] Work Phone: [facility] 04-02-2023 02:15-0500 Body height 154.94 cm [facility] Work Phone: [facility] 04-02-2023 02:15-0500 Body temperature 97.9 [degF] [facility] Work Phone: [facility] 04-02-2023 02:15-0500 Body weight 136.08 kg [facility] Work Phone: [facility] 03-21-2023 10:49-0500 Diastolic blood pressure 92 mm[Hg] Anthony Booth MD Work Phone: [facility] 03-21-2023 10:49-0500 Heart rate 112 /min Anthony Booth MD Work Phone: [facility] 03-21-2023 10:49-0500 Systolic blood pressure 132 mm[Hg] Anthony Booth MD Work Phone: [facility] 03-21-2023 10:21-0500 Body height 157.5 cm nAthony Booth MD Work Phone: [facility] 03-21-2023 10:21-0500 Body mass index (BMI) [Ratio] 55.16 kg/m2 Anthony Booth MD Work Phone: [facility] 03-21-2023 10:21-0500 Body weight 136.81 kg Anthony Booth MD Work Phone: [facility] 03-21-2023 10:21-0500 SaO2% (BldA) [Mass fraction] 96 % Anthony Booth MD Work Phone: [facility] Encounters Encounter Date Encounter Type Care Provider Facility Start: 09-02-2023 End: 09-02-2023 Emergency department patient visit Billie Spears Work Phone: [facility] Comment on above: Paranoia (psychosis) (HCC) (Primary Dx); Hypokalemia; Methamphetamine-induced psychotic disorder (HCC) Start: 09-02-2023 End: 09-02-2023 Emergency department patient visit SKIP MCGEE MD [facility] Start: 08-17-2023 End: 08-18-2023 Emergency department patient visit DR REGINE CONRAD MD [facility] Start: 06-28-2023 End: 06-28-2023 ambulatory ANTHONY LEOBARDO [facility] Start: 06-28-2023 End: 06-28-2023 Office outpatient visit 25 minutes Anthony Booth MD Work Phone: [facility] Comment on above: Moderate persistent asthma with exacerbation (Primary Dx); Anxiety; Moderate episode of recurrent major depressive disorder (HCC); Elevated transaminase level; Screening for diabetes mellitus; Screening for lipid disorders; Controlled drug dependence (HCC) Start: 06-21-2023 Telephone encounter Anthony Devine MD Work Phone: [facility] Comment on above: Scheduling Start: 06-20-2023 Refill Anthony Booth MD Work Phone: [facility] Start: 06-17-2023 End: 06-18-2023 Emergency department patient visit ANTHONY BOOTH Facility:[id number] Start: 06-17-2023 Admission to establishment [facility] Work Phone: [facility] Start: 06-17-2023 ambulatory Nita Verma [facility] Work Phone: [facility] Comment on above: Hallucinations Start: 06-17-2023 Patient encounter procedure Noemí Valera RN [facility] Clinical Communication Comment on above: Alcohol-induced poly neuropathy (HCC); Multiple open wounds of foot Start: 06-08-2023 End: 06-10-2023 Evaluation and management of inpatient ANTHONY BOOTH Facility:[id number] Start: 04-25-2023 End: 04-25-2023 ambulatory ANTHONY BOOTH [facility] Start: 04-25-2023 End: 04-25-2023 Office outpatient visit 25 minutes Anthony Booth MD Work Phone: [facility] Comment on above: Alcohol-induced poly neuropathy (HCC) (Primary Dx); Moderate persistent asthma with exacerbation; Multiple open wounds of foot Alcohol-induced poly neuropathy (HCC) (Primary Dx); Moderate persistent asthma with exacerbation; Multiple open wounds of foot; Moderate episode of recurrent major depressive disorder (HCC) Start: 04-25-2023 Refill Anthony Booth MD Work Phone: [facility] Start: 04-21-2023 End: 04-21-2023 Emergency department patient visit ANTHONY BOOTH Facility:[id number] Start: 04-11-2023 End: 04-11-2023 Emergency department patient visit ANTHONY BOOTH Facility:[id number] Start: 04-08-2023 End: 04-08-2023 Emergency department patient visit ADRIENNE DELEON MD~[id number] [facility] Start: 04-07-2023 End: 04-07-2023 Emergency department patient visit ED Doctor Facility:[facility] Start: 04-07-2023 End: 04-07-2023 Emergency department patient visit [facility] [place] [facility] Work Phone: [facility]-Emergency Department Start: 04-02-2023 End: 04-02-2023 Emergency department patient visit Zachary Armenta Facility:[facility] Start: 04-02-2023 End: 04-02-2023 Emergency department patient visit [facility] Work Phone: [facility]-Emergency Department Start: 03-21-2023 End: 03-21-2023 ambulatory ANTHONY [facility] Start: 03-21-2023 End: 03-21-2023 Office outpatient visit 25 minutes Anthony Booth MD Work Phone: [facility] Comment on above: ETOH abuse (Primary Dx); Anxiety; Moderate persistent asthma with exacerbation; Alcohol-induced polyneuropathy (HCC); Weakness of both lower extremities; Acquired hypothyroidism; Polycythemia; Morbid obesity with body mass index (BMI) of 50.0 to 59.9 in adult (HCC) Start: 03-18-2023 End: 03-18-2023 Emergency department patient visit NO PCP AA NO PCP [facility] Start: 03-08-2023 End: 03-13-2023 Evaluation and management of inpatient [facility] Start: 11-02-2022 End: 11-03-2022 ambulatory NO PCP AA NO PCP [facility] Start: 10-26-2022 End: 10-27-2022 Emergency department patient visit HENRI [facility] Start: 10-26-2022 End: 10-26-2022 Subsequent hospital visit by physician Padmaja Ecg [facility] Comment on above: Arrived Start: 10-04-2022 End: 10-04-2022 Emergency department patient visit [facility] Procedures Date Procedure Procedure Detail Performing Clinician Start: 09-02-2023 Urnls dip stick/tabl et reagent auto microscopy Billiestephania Spears DO Work Phone: Start: 09-02-2023 SARS-CoV-2 (COVID-19 ) Ag [Presence] in Respiratory specimen by Rapid immunoassay Billie Spears DO Work Phone: Start: 09-02-2023 Comprehensive metabo lic panel Billiestephania Spears DO Work Phone: Start: 09-02-2023 End: 09-02-2023 Drug test def 1-7 classes [facility] Work Phone: Start: 06-28-2023 Lipid 1996 [...] or older (1 - 1-dose 60+ series) [facility] Start: 10-05-2049 Zoster Vaccines (1 of 2) Zoster Vacc cherie (1 of 2) [facility] Start: 09-30-2031 DTaP/Tdap/Td Vaccine s (7 - Td or Tdap) DTaP/Tdap/Td Vaccines (7 - Td or Tdap) [facility] Start: 09-30-2031 Urine microalbumin profile DTa P,Tdap,Td Vaccine (7 - Td or Tdap) [facility] Start: 06-27-2028 Lipid panel Lipid Panel [facility] Start: 06-27-2024 COVID-19 Vaccine ( season) COVID-19 Vaccine ( season) [facility] Comment on above: Postponed from 10/14 (Patient Refused) Start: 06-27-2024 Hepatitis C screening Hepatitis C Sc reeyelitza [facility] Comment on above: Postponed from 10/05 (Patient Refused) Start: 06-27-2024 HPV Vaccines (1 - 3- dose series) HPV Vaccines (1 - 3-dose series) [facility] Comment on above: Postponed from 10/05 (Patient Refused) Start: 06-27-2024 Pneumococcal Vaccine : Pediatrics (0 to 5 Years) and At-Risk Patients (6 to 64 Years) (1 of 2 - PCV) Pneumococcal Vaccine: Pediatrics (0 to 5 Years) and At-Risk Patients (6 to 64 Years) (1 of 2 - PCV) [facility] Comment on above: Postponed from 10/05 (Patient Refused) Start: 04-08-2024 BP Controlled (<130/80) BP Controlle d (<130/80) [facility] Start: 03-21-2024 Thyroid stimulating hormone measurement TSH Level [facility] Start: 01-24-2024 Lipid panel Lipid Panel [facility] Start: 12-29-2023 Depression Monitoring Depression [facility] Start: 10-15-2023 Influenza vaccination [facility] Start: 09-19-2023 Depression Monitoring Depression [facility] Start: 09-19-2023 Depresssion Monitoring Depresssion M onitoring [facility] Start: 09-04-2023 End: 09-04-2023 Patient encounter procedure 09/04/2023 10:00 AM EDT Office Visit [facility] [place] [address] Anthony Booth MD [address] [place] [address] [facility] Start: 06-28-2023 End: 06-27-2024 Comprehensive metabolic 1998 panel - Serum or Plasma Comprehensive metabolic panel Lab Routine Screening for diabetes mellitus Expected: 06/28/2023 (Approximate), Expires: 06/27/2024 [facility] Work Phone: Comment on above: Expected: 06/28/2023 (Approximate), Expires: 06/27/2024 Start: 06-28-2023 End: 06-27-2024 Lipid 1996 panel - Serum or Plasma Lipid panel Lab Routine Screening for lipid disorders Expected: 06/28/2023 (Approximate), Expires: 06/27/2024 [facility] Comment on above: Expected: 06/28/2023 (Approximate), Expires: 06/27/2024 Start: 06-28-2023 End: 06-27-2024 Misc STAT ([facility]) Misc STAT ([facility]) Lab Routine Controlled drug dependence (HCC) Expected: 06/28/2023 (Approximate), Expires: 06/27/2024 [facility] Comment on above: Expected: 06/28/2023 (Approximate), Expires: 06/27/2024 Start: 06-28-2023 End: 06-28-2023 Patient encounter procedure 06/28/2023 9:45 AM EDT Office Visit [address] [place] [address] Anthony Booth MD [address] [place], [place] [id number] [address] [facility] Start: 05-23-2023 End: 05-23-2023 Patient encounter procedure 05/23/2023 2:00 PM EDT Office Visit [address] [place] [address] Anthony Booth MD [address] [place], [place] [id number], [place] [address] [facility] Start: 05-05-2023 End: 05-05-2023 Clinical Support 05/05/2023 10:30 AM EDT Clinical Support [address] [place] [address] [facility] Start: 04-18-2023 End: 04-18-2023 Patient encounter procedure 04/18/2023 2:00 PM EST Office Visit [facility] [address] [place] [address] Anthony Booth MD [address] [place] [address] [facility] Start: 03-28-2023 End: 03-28-2023 Clinical Support 03/28/2023 11:00 AM EST Clinical Support [facility] [address] [place] [address] [place] [address] [facility] Start: 03-21-2023 End: 03-21-2024 CBC W Auto Differential panel - Blood CBC auto differential Lab Routine Polycythemia Expected: 03/21/2023 (Approximate), Expires: 03/21/2024 [facility] Work Phone: Comment on above: Expected: 03/21/2023 (Approximate), Expires: 03/21/2024 Start: 03-21-2023 End: 03-21-2024 Comprehensive metabolic 1998 panel - Serum or Plasma Comprehensive metabolic panel Lab Routine ETOH abuse Expected: 03/21/2023 (Approximate), Expires: 03/21/2024 [facility] Comment on above: Expected: 03/21/2023 (Approximate), Expires: 03/21/2024 Start: 03-21-2023 End: 03-21-2024 Thyrotropin [Units/volume] in Serum or Plasma TSH Lab Routine Acquired hypothyroidism Expected: 03/21/2023 (Approximate), Expires: 03/21/2024 [facility] Comment on above: Expected: 03/21/2023 (Approximate), Expires: 03/21/2024 Start: 03-21-2023 End: 03-21-2024 Thyroxine (T4) free [Mass/volume] in Serum or Plasma T4, free Lab Routine Acquired hypothyroidism Expected: 03/21/2023 (Approximate), Expires: 03/21/2024 [facility] Comment on above: Expected: 03/21/2023 (Approximate), Expires: 03/21/2024 Start: 03-21-2023 End: 03-21-2024 Triiodothyronine (T3) Free [Mass/volume] in Serum or Plasma T3, free Lab Routine Acquired hypothyroidism Expected: 03/21/2023 (Approximate), Expires: 03/21/2024 [facility] Comment on above: Expected: 03/21/2023 (Approximate), Expires: 03/21/2024 Start: 02-13-2023 Behavioral Health Screening Behavioral Health Screening [facility] Start: 10-14-2022 Covid-19 Vaccine ( season) Covid-19 Vaccine () [facility] Start: 10-14-2022 Influenza vaccination Influenza Vacc ine (#1) [facility] Start: 10-05-2020 Screening for malign ant neoplasm of cervix [facility] Start: 10-05-2018 Hepatitis A Vaccines (1 of 2 - Risk 2-dose series) Hepatitis A Vaccines (1 of 2 - Risk 2-dose series) [facility] Start: 10-05-2017 Annual PCP Team 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 Operator yolande Disease Visit Annual PCP Team Chronic Disease Visit [facility] Start: 10-05-2017 GC (Gonorrhea) Scree yelitza () GC (Gonorrhea) Screening () [facility] Start: 10-05-2017 Hepatitis C screening Hepatitis C Sc reening [facility] Start: 10-05-2017 HIV screening HIV Screening [facility] Start: 10-05-2017 Screening for Chlamy yary trachomatis Chlamydia Screening () [facility] Start: 2015 Meningococcal B Vacc ine: Consider Based On Risk (1 of 2 - Patient Seeks Protection) Meningococcal B Vaccine: Consider Based On Risk (1 of 2 - Patient Seeks Protection) [facility] Start: 10-05-2014 HPV Vaccine (1 - 3-d ose series) HPV Vaccine (1 - 3-dose series) [facility] Start: 10-05-2014 HPV Vaccines (1 - 3- dose series) HPV Vaccines (1 - 3-dose series) [facility] Start: 10-05-2013 Peds To Adult Transi tion Annual Assessment Peds To Adult Transition Annual Assessment [facility] Start: 10-05-2012 Varicella vaccination Varicell a Vaccines (1 of 2 - 13+ 2-dose series) [facility] Start: 2011 Depression Screening Depression Scre ening [facility] Start: 2011 Peds To Adult Transi tion Initial Discussion Peds To Adult Transition Initial Discussion [facility] Start: 10-05-2010 HPV Vaccines (1 - 2- dose series) HPV Vaccines (1 - 2-dose series) [facility] Start: 10-05-2005 Pneumococcal vaccination Pneum ococcal Vaccine (1 of 2 - PCV) [facility] Start: 10-05-2005 Pneumococcal Vaccine : Pediatrics (0 to 5 Years) and At-Risk Patients (6 to 64 Years) (1 - PCV) Pneumococcal Vaccine: Pediatrics (0 to 5 Years) and At-Risk Patients (6 to 64 Years) (1 - PCV) [facility] Start: 10-05-2005 Pneumococcal Vaccine : Pediatrics (0 to 5 Years) and At-Risk Patients (6 to 64 Years) (1 of 2 - PCV) Pneumococcal Vaccine: Pediatrics (0 to 5 Years) and At-Risk Patients (6 to 64 Years) (1 of 2 - PCV) [facility] Start: 11-08-2004 Varicella vaccination Varicell a Vaccines (1 of 2 - 2-dose childhood series) [facility] Start: 2003 IPV Vaccines (4 of 4 - 4-dose series) IPV Vaccines (4 of 4 - 4-dose series) [facility] Start: 04-07-2000 COVID-19 Vaccine (#1) COVID-19 Vacci ne (#1) [facility] Start: 1999 Screening for Chlamy yary trachomatis Chlamydia and Gonorrhea Screening [facility] Start: 1999 Thyroid stimulating hormone measurement TSH Level [facility] Patient Education Peripheral Marissa ropathy [facility] Work Phone: Patient referral [facility] Work Phone: Immunizations Immunization Date Immunization Notes Care Provider Shailesh garcia 09-29-2021 tetanus toxoid, redu lalito diphtheria toxoid, and acellular pertussis vaccine, adsorbed Ach Ecg [facility] 09-12-2012 tetanus toxoid, redu lalito diphtheria toxoid, and acellular pertussis vaccine, adsorbed Ach Ecg [facility] 10-11-2004 measles, mumps and r ubella virus vaccine [facility] 06-22-2001 diphtheria, tetanus toxoids and acellular pertussis vaccine, unspecified formulation Anthony Booth MD Work Phone: [facility] 01-20-2001 measles, mumps and r ubella virus vaccine [facility] 01-20-2001 pneumococcal conjuga te vaccine, 7 valent Anthony Booth MD Work Phone: [facility] 10-11-2000 hepatitis B vaccine, adult dosage [facility] 10-11-2000 zoster vaccine recombinant [facility] 07-20-2000 pneumococcal conjuga te vaccine, 7 valent Anthony Booth MD Work Phone: [facility] 07-20-2000 poliovirus vaccine, inactivated Anthony Booth MD Work Phone: [facility] 07-20-2000 poliovirus vaccine, unspecified formulation Anthony Booth MD Work Phone: [facility] 04-21-2000 diphtheria, tetanus toxoids and acellular pertussis vaccine, unspecified formulation Anthony Booth MD Work Phone: [facility] 04-21-2000 hepatitis B vaccine, adult dosage [facility] 02-25-2000 diphtheria, tetanus toxoids and acellular pertussis vaccine, unspecified formulation Anthony Booth MD Work Phone: [facility] 02-25-2000 poliovirus vaccine, inactivated Anthony Booth MD Work Phone: [facility] 1999 diphtheria, tetanus toxoids and acellular pertussis vaccine, unspecified formulation Anthony Booth MD Work Phone: [facility] 1999 poliovirus vaccine, inactivated Anthony Booth MD Work Phone: [facility] 1999 hepatitis B vaccine, adult dosage [facility] Payers Date Payer Category Payer Self-pay 2022 Medicaid [id number] 1999 Unknown [id number] [id number] 1999 Unknown [id number] 2.16.8 [id number] 1999 Unknown [id number] 2.16.8 [id number] 1999 Unknown [id number] 2.16.8 [id number] 1999 Unknown [id number] 2.16.8 [id number] 1999 Unknown [id number] 2.16.8 [id number] 1999 Unknown [id number] 2.16.8 [id number] 1999 Unknown [id number] 2.16.8 [id number] 1960 Medicaid [id number] Unknown [id number] 2.16.8 [id number] Unknown [id number] 2.16.8 [id number] Social History Date Type Detail Facility Tobacco smoking stat [facility] Occasional tobacco smoker [facility] Start: 04-17-2023 End: 11-13-2022 History of tobacco use Cigarette Smoker [facility] Start: 02-01-2022 End: 09-02-2023 Alcohol intake Current drinker of alcohol (finding) [facility] Start: 10-26-2022 End: 06-28-2023 History of Social function [facility] Start: 10-26-2022 End: 06-28-2023 Alcohol Use Disorder Identification Test - Consumption [AUDIT-C] [facility] How often to you hav e a drink containing alcohol? Monthly or less [facility] How many standard dr inks containing alcohol do you have on a typical day? 3 or 4 [facility] How often do you hav e 6 or more drinks on 1 occasion? Less than monthly [facility] Start: 1999 Sex Assigned At Female S [facility] Start: 12-02-2021 Gender identity Identifies as female gender (finding) [facility] Start: 12-02-2021 Sexual orientation Bisexual (finding ) [facility] Start: 10-16-2022 End: 10-26-2022 Exposure to SARS-CoV-2 (event) Not sure [facility] Start: 03-14-2023 Tobacco smoking stat us VTIS Ex-smoker [facility] End: 11-13-2022 History of tobacco use Current smoker [facility] Start: 03-14-2023 End: 09-02-2023 Tobacco use and exposure Smokeless tobacco non-user [facility] Start: 03-21-2023 End: 04-25-2023 Alcohol intake Ex-drinker (finding) [facility] Adolescent depressio n screening assessment 17 [facility] Start: 04-02-2023 Tobacco smoking stat us VTIS Never smoked tobacco (finding) [facility] Start: 04-02-2023 Yes [facility] Start: 04-07-2023 End: 09-02-2023 Tobacco smoking status NHIS Smokes tobacco daily (finding) [facility] (I/We) worried wheth er (my/our) food would run out before (I/we) got money to buy more. Sometimes true [facility] In the past 12 month s, was there a time when you were not able to pay the mortgage or rent on time? No [facility] Start: 06-08-2023 Alcohol Comment relapsed, was drinking past few days [facility] Start: 1999 Sex Assigned At Not on file [facility] Sex Assigned At Sex [facility] NEGATED: Highlighted row [facility] Functional Status Date Assessment Result Facility 08-18-2023 Functional Status Identified as high risk, Room located near nursing station, Room check performed, Crime Scene Technician at bedside [facility] 08-17-2023 Functional Status Independent [facility] 04-07-2023 Functional status Friend [facility] Work Phone: 04-02-2023 Functional status Appropriate [facility] Work Phone: Mental Status Date Assessment Result Facility 08-18-2023 [facility] [place] 04-02-2023 Cognitive function Patient Behavior [facility] Work Phone: Clinical Notes 03-21-2023 to 09-02-2023 Adelita Perry RN - 09/02/2023 10:33 AM Mer [...] time. Patient provided with HOPE bag including detention information and street cards. Patient [facility]. Adelita Perry RN 09/02/23 1034 [facility] 09-02-2023 Emergency department Note Discharge instructions, follow up care, and pain management discussed with patient. All questions answered, there are no further questions at this time. Patient provided with HOPE bag including detention information and street cards. Patient ambulated off [...] she is being followed by people from [place] and that she feels not safe here [...] Resource Strain: Medium Risk (05/22/2020) [facility] Overall Financial Resource Strain (CARDIA) Difficulty of Paying Living Expenses: Somewhat hard Food Insecurity: Food Insecurity Present (06/09/2023) Received from [facility] Hunger Vital Sign Worried About Running Out of Food in the Last Year: Sometimes true Ran Out of Food in the Last Year: Sometimes true Transportation Needs: No Transportation Needs (06/09/2023) Received from [facility] PRAPARE - Transportation Lack of Transportation (Medical): No Lack of Transportation (Non-Medical): No Physical Activity: Inactive (01/23/2019) Re[facility] from [facility] Exercise Vital Sign Days of Exercise per Week: 0 days Minutes of Exercise per Session: 0 min Housing Stability: Unknown (06/09/2023) Received from [facility] Housing Stability Vital Sign Unable to Pay for Housing in the Last Year: No In the last 12 months, was there a time when you did not have a steady place to sleep or slept in a detention (including now)?: No SCREENINGS PHYSICAL EXAM ED [...] she is being followed by people from [place] and that she feels not safe here [...] Patient is medically cleared for admission to [facility]. [BM] ED Course User Index [BM] Billie [...] DO 09/02/23 0543 Emergency Department Encounter Location: [facility] ED Patient: Dhaval Moon : 2000 [...] 0510) I Glenn Guerrero MD am the diagnostic imaging manager of record. Final Impression 1. Paranoia (psychosis) [...] refuses anxiety meds ordered Referral made to [facility] for transfer, ashley [facility]. Facility will call back documented in this encounter [facility] 09-02-2023 Hospital Discharg e instructions Glenn Guerrero MD - 09/02/2023 9:02 AM EDT Images from the original note were not included. You have been evaluated in the Emergency Department today for a behavioral health problem. 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 I recommend you contact the following mental health provider(s) to schedule an appointment as soon as possible: [] [facility]; [facility] (Psychiatry, Counseling,Addiction Services); [address], [address], [place] [address]; [] [facility]; (Psychiatry, Counseling, Addiction Services); [address], [facility] [address]; [] [facility]; (Psychiatry, Counseling); [address] [place] [address]; [] [facility]; (Psychiatry, Counseling); [address], [address], [place] [address]; [] [facility]; (Psychiatry, Counseling); [address] [place] [address]; [] [facility]; (Psychiatry, Counseling); [address], [address], [place] [address]; [] [facility]; (Psychiatry, Counseling); [address], [address] [address]; [] [facility] (Counseling, Group); [address] [place] [address]; [] [facility] (Psychiatry, Counseling, Case Management); [address], [address], [place] [address]; ; for initial assessments you may call or walk-in on Mondays and Tuesdays at 8:00 AM [] [facility] (Psychiatry, Counseling, Case Management); [address] [place] [address]; ; for initial assessments you may call or walk-in on at noon [] [facility] (Psychiatry, Counseling, Case Management); [address] [place] [address]; [] [facility] (Counseling, Group - has evening hours); [address] [place] [address]; [x] [facility] (Psychiatry, Counseling, Case Management, Addiction Services); [address] [place] [address]; [x] [facility] (Psychiatry, Counseling, Case Management, Addiction Services); [address] [facility], [place] [address] [address]; [] [facility] (Psychiatry, Counseling, Case Management, Addiction Services); [address] [facility] [address], [place] [address]; [] [facility] (Counseling); [address] [place] [address]; [] [facility] (Psychiatry, Counseling, Case Management - has evening and weekend hours); [address] [place] [address]; If you or someone you know is struggling or in crisis, help is available. Call or text 528 or chat [email or web address]. -OR- Call the [facility] Crisis Hotline at 253-574-2946 -OR- Visit [facility], in person, at [address] [place] [address]; You should return to the Emergency Department or call 911 immediately if your symptoms worsen, new symptoms develop, or if you can no longer keep yourself or others safe. The following attachments cannot be sent through Care Everywhere.Drug Abuse and Drug Addiction Discharge Instructions (Libyan)Hypokalemia Discharge Instructions (Libyan)documented in this encounter [facility] 09-02-2023 Emergency department Note RN contacted PES, cancelled referral due to patient being discharged. Adelita Perry RN 09/02/23 0901 [facility] 09-02-2023 Note RN contacted PES, ca ncelled referral due to patient being discharged. Adelita Perry RN 09/02/23 0901 [facility] 09-02-2023 Emergency department Note Patient to be discharged, patient provided with her cell phone to get a ride home. Adelita Perry RN 09/02/23 0859 [facility] 09-02-2023 Emergency department Note Patient awake and [...] of care. Adelita Perry RN 09/02/23 0847 [facility] 09-02-2023 Note NOTE: This result is for medical treatment only. Analysis performed using non-forensic procedures. [facility] 09-02-2023 Emergency department Triage note Pt presents to the ED w c/o anxiety. Per pt, pt has been having anxiety all day. Pt denies suicidal thoughts. Pt feels safe at home [facility] 09-02-2023 Emergency department Triage note Pt initially uncooperative initially. Pt refusing to change in a gown or have labs drawn. Pt finally will allow this nurse to draw labs. Pts personal belongings removed from pt and pt put on a gown. Pt wanded by officer robert. Pt refuses anxiety meds ordered [facility] 09-02-2023 Emergency department Triage note Referral made to [facility] for transfer, spoke rosie Gao. Facility will call back [facility] 09-02-2023 Note Referral made to [facility] for transfer, spoke rosie Gao. Facility will call back [facility] 09-02-2023 Physician Emergency department Note EMERGENCY DEPARTMENT [...] she is being followed by people from [place] and that she feels not safe here [...] Resource Strain: Medium Risk (05/22/2020) Received from [facility] Overall Financial Resource Strain (CARDIA) Difficulty of Paying Living Expenses: Somewhat hard Food Insecurity: Food Insecurity Present (06/09/2023) Received from [facility] Hunger Vital Sign Worried About Running Out of Food in the Last Year: Sometimes true Ran Out of Food in the Last Year: Sometimes true Transportation Needs: No Transportation Needs (06/09/2023) Received from [facility] PRAPARE - Transportation Lack of Transportation (Medical): No Lack of Transportation (Non-Medical): No Physical Activity: Inactive (01/23/2019) Received from [facility] Exercise Vital Sign Days of Exercise per Week: 0 days Minutes of Exercise per Session: 0 min Housing Stability: Unknown (06/09/2023) Received from [facility] Housing Stability Vital Sign Unable to Pay for Housing in the Last Year: No In the last 12 months, was there a time when you did not have a steady place to sleep or slept in a detention (including now)?: No SCREENINGS PHYSICAL EXAM ED [...] she is being followed by people from [place] and that she feels not safe here [...] Patient is medically cleared for admission to [facility]. [BM] ED Course User Index [BM] Billie [...] Medicine Provider Billie Spears DO 09/02/23 0543 [facility] 09-02-2023 Physician Emergency department Note Emergency Department Encounter Location: [facility] ED Patient: Dhaval Moon : 2000 [...] 0510) I Glenn Guerrero MD am the diagnostic imaging manager of record. Final Impression 1. Paranoia (psychosis) (HCC) 2. Hypokalemia 3. Methamphetamine-induced psychotic disorder (HCC) DISPOSITION (Please note that portions of this note may have been completed with a voice recognition program. Efforts were made to edit the dictations but occasionally words are mis-transcribed.) Glenn Guerrero MD [employer] Glenn Guerrero MD 09/02/23 0903 [facility] Work Phone: 08-19-2023 Note . MICRO - [...] Locations *1: This test was performed at: [address], [facility] ([place]) 08-18-2023 Evaluation + Plan note Diagnostic Tests PendingUrine Culture 08/18/23 [facility] 08-17-2023 Note Sinus tachycardia Prolonged QT interval Electronic Signature: REGINE CONRAD MD 08/17/2023 21:35:30 [facility] 06-28-2023 Evaluation + Plan note Associated Problem(s): Moderate episode of recurrent major depressive disorder (HCC) Partial remission, continue Zoloft 100 mg daily [facility] 06-28-2023 Evaluation + Plan note Associated Problem(s): Elevated transaminase level Stable, will recheck labs today. [facility] 06-28-2023 Miscellaneous Notes Associated Problem(s): Moderate episode of recurrent major depressive disorder (HCC) Partial remission, continue Zoloft 100 mg daily Associated Problem(s): Elevated transaminase level Stable, will recheck labs today. Associated Problem(s): Anxiety Partial remission, continue Zoloft 100 mg daily Associated Problem(s): Moderate persistent asthma with exacerbation Stable, continue albuterol as needed. documented in this encounter [facility] 06-28-2023 Evaluation + Plan note Associated Problem(s): Anxiety Partial remission, continue Zoloft 100 mg daily [facility] 06-28-2023 Evaluation + Plan note Associated Problem(s): Moderate persistent asthma with exacerbation Stable, continue albuterol as needed. [facility] 06-28-2023 History of Presen t illness Narrative Patient verified by last name and date of . Images from the original note were not included. 06/28/2023 Dhaval Mendosa Moon (: 2000) is a 22 y.o. female , Established patient, here for evaluation of the following chief complaint(s): ER Follow-up ([facility] ED- 06/17/23/Intoxication/hallucinati ons), Hospital Follow-up ([facility] 06/07-06/10/23/Alcohol withdrawal syndrome), Health Maintenance [...] panel 7. Controlled drug dependence (HCC) - [facility] ([facility]) Follow up in about 3 months (around 09/28/2023). SUBJECTIVE/OBJECTIVE: HELEN Bryan comes in today for follow-up on her asthma, hypothyroidism, anxiety and depression, she has elevated transaminase levels that she needs rechecked. And she is on a controlled medication and needs a drug screen. She seems to be doing better she is living in a women detention and she has lost another 14 pounds. [...] 06/28/2023 3:24 PM documented in this encounter [facility] 06-21-2023 Telephone encounter Note Okay, thank you [facility] 06-21-2023 Miscellaneous Notes Okay, thank you Pt is scheduled to come into the office on 06/28/23 Will attempt to call this afternoon and/or tomorrow, since attempt was made this morning. We have been unable to reach your patient to schedule their testing. Test Name: Therapy 1st Attempt: 04-13-23 2nd Attempt: 06-21-23 documented in this encounter [facility] 06-21-2023 Telephone encounter Note Pt is scheduled to come into the office on 06/28/23 [facility] 06-21-2023 Telephone encounter Note Will attempt to call this afternoon and/or tomorrow, since attempt was made this morning. [facility] 06-21-2023 Telephone encounter Note We have been unable to reach your patient to schedule their testing. Test Name: Therapy 1st Attempt: 04-13-23 2nd Attempt: 06-21-23 [facility] 06-20-2023 Note Addended by: TONI GONZALES on: 06/20/2023 12:54 PM Modules accepted: Orders [facility] 06-20-2023 Note Addended by: TONI GONZALES on: 06/20/2023 12:54 PM Modules accepted: Orders [facility] 06-20-2023 Note Addended by: TONI GONZALES on: 06/20/2023 12:54 PM Modules accepted: Orders [facility] 06-20-2023 Miscellaneous Notes Addended by: TONI GONZALES [...] 04/1223 Updated/Validated preferred pharmacy: Yes [id number] - [address] Patient instructed to contact the pharmacy prior to picking up the medication: Yes documented in this encounter [facility] 06-20-2023 Telephone encounter Note Medication name: sertraline [...] 04/1223 Updated/Validated preferred pharmacy: Yes [id number] [place] [id number] [facility] Patient instructed to contact the pharmacy prior to picking up the medication: Yes [facility] 06-20-2023 Telephone encounter Note Patient also needs to schedule a follow up visit in office. [facility] 06-20-2023 Miscellaneous Notes Patient also needs to [...] her feet hurt. R: Upon review of [employer] med list she does have a refill left on the Albuterol Inhaler. This was verified for the patient. Spoke with Electric Motor Repairer at [facility] and they will fill this for [...] prescription Protocols used: Medication Refill and Renewal [id number] documented in this encounter [facility] 06-20-2023 Telephone encounter Note MCM sent to patient. Awaiting response. [facility] 06-19-2023 Telephone encounter Note Rx sent, OARRS report done, no inconsistencies, needs to sign a CS agreement [facility] 06-19-2023 Telephone encounter Note Pended. Lyrica-NO ANKIT on file. Last filled 04/25/23 [facility] 06-18-2023 Note Formatting of this n ote is different from the original. BEHAVIORAL HEALTH BRIEF INTAKE NOTE SERVICE DATE: 06/18/2023 SERVICE TIME: 6:44 AM Dhaval Moon is a 22 year old female brought in to [facility] ED from Home by friend for an [...] DATE: June 18, 2023 TIME: 6:44 AM [facility] 06-18-2023 Miscellaneous Notes BEHAVIORAL HEALTH BRIEF INTAKE NOTE SERVICE DATE: 06/18/2023 SERVICE TIME: 6:44 AM Dhaval Moon is a 22 year old female brought in to [facility] ED from Home by friend for an [...] TIME: 6:44 AM documented in this encounter [facility] 06-17-2023 Telephone encounter Note S: [...] was verified for the patient. Spoke with Electric Motor Repairer at [facility] and they will fill this for [...] prescription Protocols used: Medication Refill and Renewal [id number] [facility] 06-09-2023 Note HNO ID: [id number] Author: MAYRA SCOTT LSW Service: Care Management Author Type: Car Detailer Type: Care Mgt Initial Assessment Filed: 06/09/2023 13:21 Note Text: CARE MANAGEMENT: ASSESSMENT AND DISCHARGE PLAN SERVICE DATE: June 09, 2023 SERVICE TIME: 1:12 PM PCP: Anthony Booth MD Primary Contact: Extended Emergency Contact Information Primary Emergency Contact: Kassie Moon Address: [address] [place] [address] Mobile Relation: Mother Admission Status: Inpatient Insurance Provider: [facility] [place]ICA[place] Discharge [...] Patient Goal(s): Be able to go home [place] Explained: Are you interested in [...] Yes - Do you ever drink an eye-short story writer in the morning to relieve shakes? Yes [...] pt with packet of community resource information: [facility], homeless hotline, homeless resource guide, outpatient drug [...] 09, 2023 TIME: 1:12 PM CONTACT #: [facility] 06-09-2023 Note HNO ID: [id number] Author: ALBERT SIERRA, PhD Service: Psychology Author [...] interview and participated actively in the conversation. [facility] 06-09-2023 Note HNO ID: [id number] Author: LUKAS YOO MD Service: Hospital Medicine [...] 0.4 06/08/2023 Abs Neut 6.29 06/08/2023 Abs [place] 0.63 06/08/2023 Abs Eosin 0.15 06/08/2023 Abs [...] on 06/07 co (more content not included)... [facility] 04-26-2023 Evaluation + Plan note Associated Problem(s): Moderate episode of recurrent major depressive disorder (HCC) We will increase her Zoloft to 100 mg daily and have her follow-up in 3 to 4 weeks. [facility] 04-26-2023 Miscellaneous Notes Associated Problem(s): Moderate episode of recurrent major depressive disorder (HCC) We will increase her Zoloft to 100 mg daily and have her follow-up in 3 to 4 weeks. Associated Problem(s): Multiple open wounds of foot Referral to wound center in [place] Associated Problem(s): Moderate persistent asthma with exacerbation Stable, refill albuterol MDI and albuterol solution. Associated Problem(s): Alcohol-induced polyneuropathy (HCC) Stable, she says she has not been drinking and she also thinks that the gabapentin is not working well for the neuropathy so we will switch her to Lyrica. OARRS report done, no inconsistencies, Rx sent documented in this encounter [facility] 04-25-2023 Evaluation + Plan note Associated Problem(s): Multiple open wounds of foot Referral to wound center in [place] [facility] 04-25-2023 Note Referral to wound ce nter in [facility] 04-25-2023 Evaluation + Plan note Associated Problem(s): Moderate persistent asthma with exacerbation Stable, refill albuterol MDI and albuterol solution. [facility] 04-25-2023 Miscellaneous Notes Associated Problem(s): Multiple open wounds of foot Referral to wound center in [place] Associated Problem(s): Moderate persistent asthma with exacerbation Stable, refill albuterol MDI and albuterol solution. Associated Problem(s): Alcohol-induced polyneuropathy (HCC) Stable, she says she has not been drinking and she also thinks that the gabapentin is not working well for the neuropathy so we will switch her to Lyrica. OARRS report done, no inconsistencies, Rx sent documented in this encounter [facility] 04-25-2023 Evaluation + Plan note Associated Problem(s): Alcohol-induced polyneuropathy (HCC) Stable, she says she has not been drinking and she also thinks that the gabapentin is not working well for the neuropathy so we will switch her to Lyrica. OARRS report done, no inconsistencies, Rx sent [facility] 04-25-2023 History of Presen t illness Narrative [...] Starting Mon04/25/2023, Until [place] 05/25/2023, [facility] 2. Moderate persistent asthma with exacerbation Assessment & Plan: Stable, refill albuterol MDI and albuterol solution. 3. Multiple open wounds of foot Assessment & Plan: Referral to wound center in [place] Orders: - pregabalin (Lyrica) 100 MG capsule; Take 1 capsule (100 mg) by mouth 3 times daily., Starting Mon04/25/2023, Until Crystal 05/25/2023, [facility] Follow up [...] 04/25/2023 3:45 PM documented in this encounter [facility] 04-25-2023 History of Presen t illness Narrative [...] Starting Mon04/25/2023, Until [place] 05/25/2023, [facility] 2. Moderate persistent asthma with exacerbation Assessment & Plan: Stable, refill albuterol MDI and albuterol solution. 3. Multiple open wounds of foot Assessment & Plan: Referral to wound center in [place] Orders: - pregabalin (Lyrica) 100 MG capsule; Take 1 capsule (100 mg) by mouth 3 times daily., Starting Mon04/25/2023, Until Crystal 05/25/2023, [facility] 4. Moderate [...] 04/26/2023 8:15 AM documented in this encounter [facility] 04-25-2023 Telephone encounter Note Prescription Request: Last medication check: 03/21/23(hosp follow up) Last physical exam: none Next scheduled appointment: 04/25/23 Last date of refill on this medication 03/21/23 30 day no refill [facility] 04-25-2023 Miscellaneous Notes Prescription Request: Last medication check: 03/21/23(hosp follow up) Last physical exam: none Next scheduled appointment: 04/25/23 Last date of refill on this medication 03/21/23 30 day no refill documented in this encounter [facility] 03-21-2023 Evaluation + Plan note Associated Problem(s): Anxiety Uncontrolled, Zoloft 50 mg daily follow-up in 3 to 4 weeks [facility] 03-21-2023 Evaluation + Plan note Associated Problem(s): ETOH abuse Encourage patient to go online and get the number for Alcoholics Anonymous to be put in touch with a sponsor IBRAHIMA to keep her from going back on the alcohol. [facility] 03-21-2023 Evaluation + Plan note Associated Problem(s): Polycythemia Repeat CBC today [facility] 03-21-2023 Miscellaneous Notes Associated Problem(s): Anxiety Uncontrolled, [...] weightbearing and balance documented in this encounter [facility] 03-21-2023 Evaluation + Plan note Associated Problem(s): Acquired hypothyroidism Repeat lab work today for confirmation. [facility] 03-21-2023 Evaluation + Plan note Associated Problem(s): Morbid obesity with body mass index (BMI) of 50.0 to 59.9 in adult (HCC) Encourage patient to continue weight loss with diet and exercise. [facility] 03-21-2023 Evaluation + Plan note Associated Problem(s): Moderate persistent asthma with exacerbation Stable, we will refill her albuterol inhaler [facility] 03-21-2023 Evaluation + Plan note Associated Problem(s): Alcohol-induced polyneuropathy (HCC) Gabapentin will increase that to 300 mg 3 times a day OARRS report done, no inconsistencies, CS agreement will need to sign and also get her into some physical therapy. [facility] 03-21-2023 Evaluation + Plan note Associated Problem(s): Weakness of both lower extremities Will refer patient to physical therapy for strengthening and weightbearing and balance [facility] 03-21-2023 History of Presen t illness Narrative Patient verified by last name and date of . Images from the original note were not included. 03/21/2023 Dhaval Moon (: 2000) is a 22 y.o. female , Established patient, here for evaluation of the following chief complaint(s): Hospital Follow-up ([facility] 04/08/22-//Was told have thyroid issue but [...] her into some physical therapy. Orders: - [facility] 5. Weakness of both lower extremities Assessment & Plan: Will refer patient to physical therapy for strengthening and weightbearing and balance Orders: - [facility] 6. 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 Moderate persistent asthma with exacerbation Unspecified asthma, with exacerbation Multiple open wounds of foot Moderate episode of recurrent major depressive disorder (HCC) [facility]* Diagnosis Alcohol abuse- Primary Alcohol abuse, unspecified [facility] Diagnosis 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 Multiple open wounds of foot [facility]* Diagnosis Moderate persistent asthma with exacerbation- Primary Unspecified asthma, with exacerbation Anxiety Anxiety state, unspecified Moderate episode of recurrent major depressive disorder (HCC) Elevated transaminase level Screening for diabetes mellitus Screening for lipid disorders Controlled drug dependence (HCC) documented in this encounter [facility] note* Diagnosis Paranoia (psychosis) (HCC)- Primary Delusional disorder Hypokalemia Hypopotassemia Methamphetamine-induced psychotic disorder (HCC) [facility] Narrative No data available for this section [facility] Discharge instructions No data available for this section [facility] Progress note No data available for this section [facility] Reason for referral (narrative)* Consultation (Routine) - Pending Review Specialty Diagnoses / Procedures Referred By Contkarlene t Referred To Contact Wound Care Diagnoses Alcohol-induced polyneuropathy (HCC) Multiple open wounds of foot Procedures MA OFFICE/OUTPATIENT NEW HIGH MDM 60 MINUTES Anthony Booth MD [address] [facility], [place] [address] Sb Op Wnd Ostomy Hbo [address] [place] [address] Referral ID Status Reason Start Date Expiration Date Visits Requested Visits Authorized [id number] Pending Review Specialty Services Required 04/25/2023 04/24/2024 1 1 [facility] note* RAIMUNDO Garcia: PERFORM Event Display: Patient Summary Documents Authored Date: [id number] [facility] Summary Purpose Family History No Family History [...] (HCC) Weakness of both lower extremities Procedures MA OFFICE/OUTPATIENT NEW HIGH MDM 60 MINUTES Anthony Booth MD [address] [place] [address], [place] [address] [facility] [address] [place] [address] Referral ID Status Reason Start Date Expiration Date Visits Requested Visits Authorized [id number] Pending Review Eval and Treat 03/21/2023 03/15/2024 99 99 Additional Source Comments INFORMATION SOURCE (unrecogn ized section and content) DATE CREATED AUTHOR 01/18/2019 [facility] DATE CREATED AUTHOR AUTHOR'S ORGANIZ ATION 03/16/2021 [facility] DATE CREATED AUTHOR AUTHOR'S ORGANIZ ATION 04/17/2023 [facility] DATE CREATED AUTHOR AUTHOR'S ORGANIZ ATION 04/22/2023 [facility] ([place]) DATE CREATED AUTHOR AUTHOR'S ORGANIZ ATION 06/18/2023 [facility] nter DATE CREATED AUTHOR AUTHOR'S ORGANIZ ATION 09/05/2023 [facility] ([place]) DATE CREATED AUTHOR AUTHOR'S ORGANIZ ATION 11/30/2023 [facility] Care Teams (unrecognized sec tion and content) Data Warehousing Architect Relationship Specialty Start Date End Date Anthony Booth MD [address] [place] [id number] PCP - General 05/12/15 [employer] Architect Relationship Specialty Start Date End Date Anthony Booth MD [address] [place] [id number] PCP - General 05/12/15 Team Status: Active Member Role Status Dates [facility] [place] [facility] Primary Care Provi shawn Active Team Status: Inactive Member Role Status Dates [facility] [place] [facility] Primary Care Provider Active Start: April [id number] End: April 02, 2023 Zachary Armenta MD Emergency Provider Active Sta rt: April 02, 2023 End: April 02, 2023 Team Status: Inactive Member Role Status Dates [facility] [place] [facility] Primary Care Provider Active Start: April [id number] End: April 07, 2023 ED Doctor Emergency Provider Active Start: Yajaira coello 2023 End: April 07, 2023 Data Warehousing Architect Relationship Specialty Start Date End Date Anthony Booth MD [address] [place], [place] [id number] PCP - General 05/12/15 Data Warehousing Architect Relationship Specialty Start Date End Date Anthony Booth MD [address] [facility] [place] [address] PCP - General 05/12/15 Data Warehousing Architect Relationship Specialty Start Date End Date Anthony Booth MD [address] [facility] [place] [address] PCP - General 05/12/15 Data Warehousing Architect Relationship Specialty Start Date End Date Anthony Booth [address] [facility] [place] [place] [address] PCP - General Family Medicine 01/17/19 Data Warehousing Architect Relationship Specialty Start Date End Date Anthony Booth MD [address] [facility] [place] [address] PCP - General 05/12/15 Data Warehousing Architect Relationship Specialty Start Date End Date Anthony Booth MD [address] [facility] [place] [address] PCP - General 05/12/15 Data Warehousing Architect Relationship Specialty Start Date End Date Anthony Booth MD [address] [facility] [place] [address] PCP - General 05/12/15 Data Warehousing Architect Relationship Specialty Start Date End Date Anthony Booth MD [address] [facility] [place] [address] PCP - General 05/12/15 Data Warehousing Architect Relationship Specialty Start Date End Date Anthony Booth MD [address] [place] [address] PCP - General 05/12/15 Reason for Visit (unrecogniz ed section and content) Reason Comments Hospital Follow-up [facility] 04/08-Was told have thyroid issue but [...] Comments Scheduling 06/21/2023 Reason Comments ER Follow-up [facility] ED- 06/17/23 Intoxicationhallucinations Hospital Follow-up [facility] 06/07-Alcohol withdrawal syndrome Health Maintenance [...] or prosecute any alcohol or drug abuse patient.[facility] Scheduled Active and Recently Administ [...] BE BASED ON THE PRIMARY CLINICAL RECORDS. [email or web address] provides no warranty or guarantee of the accuracy or completeness of information in this document.
--- NOTE | 2023-12-06 03:05 | EDS_ITS ---
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 She states she was just recently discharged from a psychiatric center yesterday. She reports that this evening she has been drinking alcohol and states after doing so she has had upper abdominal discomfort with bouts of vomiting. She states she has not been able to get a hold of any friends or family and this is contributed to her anxiety and she feels like no one loves her . She denies any homicidal or greer icidal ideation but has she had no one to be with and has had bouts of vomiting she called 911 and asked be brought to the hospital for evaluation [facility] Medical History Schizo affective schizophrenia Bipolar 1 disorder Alcohol abuse PTSD (post-traumatic stress disorder) Depression Anxiety Home Medications ?Medication ?Instructions ?Recorded ?Last Taken ?Type albuterol sulfate 90 mcg/actuation 1 - 2 puff inhalation Q4H PRN Sob 12/04/17 Unknown History aerosol inhaler (Ventolin HFA) &/Or Wheezing albuterol sulfate 90 mcg/actuation 6.7 gm IH Q2H PRN PRN Wheezing ##1 07/01/18 Unknown Rx aerosol inhaler folic acid 1 mg tablet 1 mg PO DAILY 07/22/23 Unknown History losartan 50 mg tablet 50 mg PO DAILY 07/22/23 Unknown History pregabalin 100 mg capsule 100 mg PO TID 07/22/23 Unknown History albuterol sulfate 90 mcg/actuation 1 - 2 puff inhalation Q4H PRN PRN 11/05/23 Unknown Rx aerosol inhaler (Ventolin HFA) Wheezing ##1 famotidine 20 mg tablet 20 mg PO BID #60 tabs 11/07/23 Unknown Rx olanzapine 2.5 mg tablet 5 mg (2 x 2.5 mg) PO QHS #30 tabs 11/07/23 Unknown Rx ondansetron HCl 8 mg tablet 8 mg PO Q8H PRN PRN Nausea #42 tabs 11/07/23 Unknown Rx hydroxyzine HCl 50 mg tablet 50 mg PO Q8H PRN PRN anxiety 11/27/23 Unknown History metoprolol succinate 25 mg 25 mg PO BID 11/27/23 Unknown History tablet,extended release 24 hr omeprazole 40 mg capsule,delayed 40 mg PO DAILY 11/27/23 Unknown History release Allergy/AdvReac Type Severity Reaction Status Date / Time Penicillins (PCN) Allergy Hives Verified 12/06/23 00:52 Social History Smoking Status: Current some day smoker tobacco type: cigarettes and e- cigarettes ROS ROS ED Constitutional Constitutional ED: Denies chills or fever(s) Eyes Eyes: Denies change in vision ENT ENT ED: Reports sore throat Cardiovascular Cardiovascular: Denies chest pain Respiratory/Chest Respiratory/Chest: Denies cough or dyspnea Gastrointestinal Gastrointestinal: Reports nausea and vomiting; Denies abdominal pain or diarrhea Genitourinary Genitourinary ED: Denies dysuria Integumentary Denies rash Neurologic Neurologic: Denies headache(s) Psychiatric Psychiatric: Reports anxiety and depression; Denies suicidal ideation or suicidal thoughts Hematologic/Lymphatic Hematologic/Lymphatic: Denies easy bleeding or easy bruising Allergic/Immunologic Allergic/Immunologic ED: Denies mouth swelling or tongue swelling EXAM Physical Exam Const Vital Signs: 12/06/23 01:56 Temperature 97.4 F L Temperature Source Oral Pulse Rate 107 H Respiratory Rate 20 H Blood Pressure 173/106 H Blood Pressure Mean 128 Pulse Ox 100 Positive well nourished, well developed and obese General Appearance ED: well developed; Negative for pallor Nutritional Appearance: obese HEENT Reports moist mucous membranes HEENT Narrative: No tongue or lip swelling no oral lesions no airway edema or compromise No signs of infection noted in the posterior pharynx No dried blood or active bleeding noted Eyes EOMs intact bilaterally Eyes Narrative: Pupils are dilated and sluggish to respond to light consistent with alcohol use. There is also scleral injection consistent with this. Extraocular muscles are intact. Neck supple Neck Narrative: No nuchal rigidity or meningeal signs No crepitance or free air palpated Chest Wall palpation of chest normal Resp normal respiratory effort and clear to auscultation bilaterally Resp Narrative: No nasal flaring retractions tachypnea or accessory muscle use Cardio regular rhythm Rate: tachycardic and other Other Details: Tachycardic rate with regular rhythm Radial and carotid pulses are equal and symmetric No carotid bruit noted GI non-tender, non-distended and no masses GI Narrative: Abdomen is soft nontender nondistended with hyperactive bowel sounds. No voluntary guarding or rigidity or pulsatile mass Auscultation: hyperactive bowel sounds Palpation: soft Extremity normal to inspection Neuro oriented x3, CN's II-XII intact bilaterally and no sensory deficits noted Sensorium / Orientation: alert Motor Exam: strength 5/5 throughout Psych Psych Narrative: Patient has a anxious affect but denies homicidal or suicidal ideation Skin no rashes or lesions noted and no wounds General Skin Exam: Negative for jaundice or pallor MDM MDM MDM Narrative Medical decision making narrative: Patient presented to the ER hypertensive but was also extremely anxious. She has a history of anxiety. She reported drinking alcohol followed by bouts of nausea and vomiting. In order to ensure she did not have a Melissa-Tom tear I elected to perform an x-ray of her abdomen as well as soft tissue neck. This revealed no signs of obstruction perforation or free air. However the patient did refuse certain images of the x-ray and also refused to take the prescribed medication to help with her symptoms. When confronted about this she began to state that the x-ray cardiac catheterization technician and the nurses were lying and she did not refuse any type of medication. As this is a blatant lie and the patient is refusing treatment and she is not homicidal or suicidal I do not feel there is a need to hold her in the hospital any longer. She was informed that we will no longer treat or work her up at this time based on her refusal to undergo with the care plan and that as she is not homicidal or suicidal we do not have the need to keep her in the hospital for psychiatric evaluation especially as she was just discharged from a psychiatric center yesterday. Therefore patient will be discharged and can follow-up as an outpatient. History & Record Review Discussion w/independent historian: EMS personnel and Patient Radiography Diagnostic Testing: Clinical Impression(s) from Imaging Studies Acute Abdomen Series 12/06/23 02:36 IMPRESSION: No evidence of acute cardiopulmonary process. Nonobstructive bowel gas pattern. Electronically Signed: Dylan Parish MD at 3:56 EDT , Soft Tissue Neck X-Ray 12/06/23 02:36 IMPRESSION: No evidence of pneumomediastinum.. Electronically Signed: Dylan Parish MD at 3:52 EDT , Acute abdominal series with 1 view chest as interpreted by the emergency medicine physician reveals a nonspecific nonobstructive bowel gas pattern and chest x-ray reveals no pneumothorax or infiltrate Soft tissue neck x-ray as interpreted by the emergency medicine physician reveals no free air/pneumomediastinum Discharge Plan Triage Chief Complaint: Anxiety ED Provider: Daniel Herrera Dx/Rx/DC Orders Clinical Impression: Alcohol abuse, Anxiety, Gastritis Instructions: ED Gastritis (Adult), ED Alcohol Abuse Prescriptions: No Action albuterol sulfate [Ventolin HFA] 90 MCG HFA aerosol inhaler 1 - 2 puff inhalation Q4H MDD S PRN (Reason: Sob &/Or Wheezing) albuterol sulfate 6.7 GM HFA aerosol inhaler 6.7 gm IH Q2H PRN PRN (Reason: Wheezing) Qty: 1 1RF losartan 50 mg tablet 50 mg PO DAILY folic acid 1 mg tablet 1 mg PO DAILY pregabalin 100 mg capsule 100 mg PO TID famotidine 20 mg Tablet 20 mg PO BID Qty: 60 0RF olanzapine 2.5 mg Tablet 5 mg PO QHS Qty: 30 0RF ondansetron HCl 8 mg Tablet 8 mg PO Q8H PRN PRN (Reason: Nausea) Qty: 42 0RF albuterol sulfate [Ventolin HFA] 90 mcg/actuation HFA aerosol inhaler 1 - 2 puff inhalation Q4H PRN PRN (Reason: Wheezing) Qty: 1 0RF hydroxyzine HCl 50 mg tablet 50 mg PO Q8H PRN PRN (Reason: anxiety) omeprazole 40 mg capsule,delayed release(DR/EC) 40 mg PO DAILY metoprolol succinate 25 mg tablet extended release 24 hr 25 mg PO BID Primary Care Provider: Anthony Shepard Referrals: Anthony Shepard MD [Primary Care Provider] - Print Language: Irish Disposition Disposition: Home, Self Care Discharge Date/Time: 12/06/23 03:18
--- NOTE | 2023-12-06 03:09 | ED.RN ---
PT NEEDED REDIRECTION MULTIPLE TIMES BACK TO ROOM. MULTIPLE TIMES TRIED TO EXPLAIN TO PT AND PT REFUSES TO LISTEN. PD AT BEDSIDE. PT REQUESTING WATER WITH MEDICATION, TRIED TO EXPLAIN THAT SHE CANNOT DRINK WATER WITH VISCOUS LIDOCAINE. PT REFUSES TO TAKE MEDICATION WITHOUT WATER. PT ALSO STATES SHE IS NOT NAUSEATED, REFUSED ZOFRAN.
== END 2023-12-06 03:18 | disposition home or self-care (01) ==
PROVIDERS: Emergency Provider Emergency Medicine; PCP Family Medicine; Visit Provider Emergency Medicine
DX: F41.9 Anxiety disorder, unspecified (principal); K29.70 Gastritis, unspecified, without bleeding; F10.10 Alcohol abuse, uncomplicated; F17.210 Nicotine dependence, cigarettes, uncomplicated; F17.290 Nicotine dependence, other tobacco product, uncomplicated; Y90.9 Presence of alcohol in blood, level not specified; Z79.899 Other long term (current) drug therapy
CPT/HCPCS: 70360; 74022; 99282; 99284

== ENCOUNTER 2023-12-20 16:08 | Emergency (ER) | payer MEDICAID, SELFPAY ==
[2023-12-20 16:08] VITALS: BP 148/86; PULSE 125; RESP 16; TEMP 36.8; O2SAT 100
[2023-12-20 16:14] VITALS: BMI 36.4
[2023-12-20] MEDS: Ziprasidone IM 20 MG/ML VIAL IM (16:55)
[2023-12-20 17:08] VITALS: BP 138/98; PULSE 105; RESP 18; O2SAT 99
[2023-12-20 17:27] LABS: Absolute Lymphocyte Count 2.91 X10^3/uL (0.83-4.51); Absolute Neutrophil Count 5.2 X10^3/uL (2.0-7.7); Basophil# 0.03 X10^3/uL; Basophil% 0.3 % (0-1); Eosinophil# 0.22 X10^3/uL; Eosinophils% 2.4 % (0-5); Hematocrit 40.6 % (37-47); Lymphocyte # 2.91 X10^3/ul (0.83-4.51); Lymphocyte % 32.1 % (19-41); Mean Corp Hgb Conc 34.5 g/dL (32-36); Mean Corpuscular Hgb 32.3 pg (27.0-32.0); Mean Corpuscular Volume 93.8 fL (81-99); Mean Platelet Vol. 10.8 fl (6.2-12.0); Monocyte# 0.73 X10^3/uL; NRBC Flagged by Analyzer 0 % (0-5); Neutrophil # 5.16 X10^3/uL (2.7-7.7); Platelet Count 282 K/mm3 (150-450); RBC Distribution Width CV 12.6 % (11.6-14.6); RBC Distribution Width SD 42.9 fl (35.1-43.9); Red Blood Count 4.33 M/mm3 (4.2-5.4); White Blood Count 9.1 K/mm3 (4.4-11.0)
[2023-12-20 17:32] LABS: Internal QC Validated? YES +Cl - CLEAR BKGD; Pregnancy, Serum, hCG Quali. NEGATIVE Negative
[2023-12-20 17:34] LABS: Alcohol, Blood (Medical)-Serum < 3.0 mg/dL
[2023-12-20 17:36] LABS: Anion Gap 11 (5-15); BUN 9 mg/dL (7-18); BUN/Creat Ratio 17.4 RATIO (10-20); Calcium,Total 9.8 mg/dL (8.5-10.1); Chloride 105 mmol/L (98-107); Creatinine, Serum 0.52 mg/dL (0.55-1.02); EST Glomerular Filtration Rate 154 mL/min (>60); Est Glom Filt Rate - Afr Amer 187 mL/min (>60); Glucose 100 mg/dL (74-106); Potassium 2.9 mmol/L (3.5-5.1); Sodium Level 138 mmol/L (136-145)
[2023-12-20 18:00] VITALS: BP 128/84; PULSE 94; RESP 18; O2SAT 99
[2023-12-20 22:33] VITALS: BP 109/64; PULSE 100; RESP 17; TEMP 36.7; O2SAT 98
[2023-12-21] MEDS: Potassium Chloride Oral Tablet 20 MEQ 40 MEQ PO (00:07)
[2023-12-21 06:00] VITALS: BP 110/78; PULSE 100; RESP 19; O2SAT 98
== END 2023-12-21 10:00 ==
PROVIDERS: Emergency Provider Emergency Medicine; PCP Family Medicine; Visit Provider Emergency Medicine
DX: F23 Brief psychotic disorder (principal); F25.0 Schizoaffective disorder, bipolar type; E87.6 Hypokalemia; F17.210 Nicotine dependence, cigarettes, uncomplicated; F17.290 Nicotine dependence, other tobacco product, uncomplicated; Z79.899 Other long term (current) drug therapy
CPT/HCPCS: 80048; 82077; 84703; 85025; 99283

== ENCOUNTER 2024-01-08 09:52 | Inpatient (IN) | payer MEDICAID, SELFPAY ==
[2024-01-08] VITALS (13 sets, daily range): BP systolic 104–168; BP diastolic 51–103; PULSE 67–105; RESP 14–20; TEMP 36.4–37.1; O2SAT 96–100; BMI 43.3; BMI 38.2
[2024-01-08] MEDS: DiphenhydrAMINE 50 MG/ML Syringe IM (10:12)
[2024-01-08] MEDS: Ziprasidone IM 20 MG/ML VIAL IM (10:19)
[2024-01-08] MEDS: LORazepam 2 MG/ML Syringe IM (10:21)
[2024-01-08 11:19] LABS: Absolute Lymphocyte Count 2.49 X10^3/uL (0.83-4.51); Basophil# 0.03 X10^3/uL; Basophil% 0.4 % (0-1); Eosinophil# 0.14 X10^3/uL; Hematocrit 40.3 % (37-47); Hemoglobin 13.7 g/dL (12.0-15.0); Lymphocyte # 2.49 X10^3/ul (0.83-4.51); Mean Corpuscular Hgb 32.4 pg (27.0-32.0); Mean Corpuscular Volume 95.3 fL (81-99); Mean Platelet Vol. 11.3 fl (6.2-12.0); Monocyte# 0.49 X10^3/uL; Monocyte% 6.9 % (0-10); NRBC Flagged by Analyzer 0 % (0-5); Neutrophil # 3.95 X10^3/uL (2.7-7.7); Neutrophil % 55.4 % (47-70); Platelet Count 274 K/mm3 (150-450); RBC Distribution Width CV 12.2 % (11.6-14.6); RBC Distribution Width SD 42.7 fl (35.1-43.9); Red Blood Count 4.23 M/mm3 (4.2-5.4); White Blood Count 7.1 K/mm3 (4.4-11.0)
[2024-01-08 11:32] LABS: Alcohol, Blood (Medical)-Serum < 3.0 mg/dL
[2024-01-08 11:35] LABS: Internal QC Validated? YES +Cl - CLEAR BKGD; Pregnancy, Serum, hCG Quali. NEGATIVE Negative
[2024-01-08 11:36] LABS: Record Kit Lot#, Serum Preg. 869294
[2024-01-08 12:00] LABS: Anion Gap 9 (5-15); BUN 9 mg/dL (7-18); BUN/Creat Ratio 17.6 RATIO (10-20); Calcium,Total 9.7 mg/dL (8.5-10.1); Chloride 106 mmol/L (98-107); Creatinine, Serum 0.51 mg/dL (0.55-1.02); EST Glomerular Filtration Rate 157 mL/min (>60); Est Glom Filt Rate - Afr Amer 190 mL/min (>60); Estimated Creatinine Clearance 188.71 ml/min; Glucose 90 mg/dL (74-106); Potassium 2.9 mmol/L (3.5-5.1); Sodium Level 140 mmol/L (136-145)
[2024-01-08 12:49] LABS: Amphetamine Urine VISTA POSITIVE (<1000 ng/mL); Barbiturate Urine VISTA NEGATIVE (< 200 ng/mL); Benzodiazepine Urine VISTA NEGATIVE (< 200 ng/mL); Cocaine Urine VISTA NEGATIVE (< 300 ng/mL); Ecstacy Urine VISTA POSITIVE (< 500 ng/mL); Methadone Urine VISTA NEGATIVE (< 300 ng/mL); PCP Urine VISTA NEGATIVE (< 25 ng/mL); THC Urine VISTA NEGATIVE (< 50 ng/mL); Vista UDS pH Range 4
[2024-01-08 20:10] LABS: Magnesium 1.7 mg/dL (1.6-2.6); Phosphorus 4.2 mg/dL (2.5-4.9)
[2024-01-08] MEDS: Pregabalin 50 MG Capsule 100 MG PO (22:25)
[2024-01-08] MEDS: Potassium Chloride Oral Tablet 20 MEQ 40 MEQ PO (22:25)
[2024-01-08] MEDS: OLANZapine 5 MG/TAB TAB.RAPDIS PO (22:26)
[2024-01-09] VITALS (7 sets, daily range): BP systolic 108–136; BP diastolic 57–79; PULSE 76–95; RESP 15–16; TEMP 36.7–37.2; O2SAT 96–100
[2024-01-09 07:49] LABS: Anion Gap 5 (5-15); BUN 12 mg/dL (7-18); BUN/Creat Ratio 23.1 RATIO (10-20); Calcium,Total 8.7 mg/dL (8.5-10.1); Chloride 106 mmol/L (98-107); Creatinine, Serum 0.52 mg/dL (0.55-1.02); EST Glomerular Filtration Rate 154 mL/min (>60); Est Glom Filt Rate - Afr Amer 186 mL/min (>60); Estimated Creatinine Clearance 165.33 ml/min; Glucose 102 mg/dL (74-106); Potassium 3.4 mmol/L (3.5-5.1); Sodium Level 139 mmol/L (136-145)
[2024-01-09] MEDS: Famotidine 20 MG Tablet PO (09:02)
[2024-01-09] MEDS: Pregabalin 50 MG Capsule 100 MG PO ×2 (14:13→23:50)
[2024-01-09] MEDS: OLANZapine 5 MG/TAB TAB.RAPDIS PO (23:50)
[2024-01-10] MEDS: Pregabalin 50 MG Capsule 100 MG PO ×2 (07:05→14:37)
[2024-01-10 08:04] VITALS: O2SAT 96
[2024-01-10] MEDS: Famotidine 20 MG Tablet PO (08:25)
[2024-01-10 08:27] VITALS: BP 120/82; PULSE 84; RESP 16; TEMP 36.6; O2SAT 97
[2024-01-10 08:32] VITALS: BP 120/82; PULSE 84; RESP 16; TEMP 36.6; O2SAT 97
[2024-01-10] MEDS: Azithromycin 250 MG Tablet 1000 MG PO (10:16)
[2024-01-10] MEDS: Ceftriaxone 500 MG Vial IM (10:17)
[2024-01-10 14:31] VITALS: BP 119/72; PULSE 107; RESP 18; TEMP 37.1; O2SAT 98
== END 2024-01-10 14:55 | DRG 773 ==
LOC: ED 19:14 → MS3 20:24
PROVIDERS: Admitting Provider Hospitalist; Emergency Provider Emergency Medicine; PCP Family Medicine; Visit Provider Family Medicine
DX: F11.13 Opioid abuse with withdrawal (principal); F25.0 Schizoaffective disorder, bipolar type; F10.10 Alcohol abuse, uncomplicated; F15.10 Other stimulant abuse, uncomplicated; I10 Essential (primary) hypertension; E66.9 Obesity, unspecified; E87.6 Hypokalemia; G62.9 Polyneuropathy, unspecified; F17.210 Nicotine dependence, cigarettes, uncomplicated; K21.9 Gastro-esophageal reflux disease without esophagitis; F17.290 Nicotine dependence, other tobacco product, uncomplicated; F31.10 Bipolar disorder, current episode manic without psychotic features, unspecified; N89.8 Other specified noninflammatory disorders of vagina; Z59.02 Unsheltered homelessness; Y90.0 Blood alcohol level of less than 20 mg/100 ml; Z68.38 Body mass index [BMI] 38.0-38.9, adult; Z65.8 Other specified problems related to psychosocial circumstances; Z79.899 Other long term (current) drug therapy; Z86.19 Personal history of other infectious and parasitic diseases
CPT/HCPCS: 36415; 80048; 80307; 82077; 83735; 84100; 84703; 85025; 87491; 87591; 93005; 97802; 99283; 99406; J3486

== ENCOUNTER 2024-03-23 10:31 | Emergency (ER) | payer MEDICAID, SELFPAY ==
[2024-03-23 10:32] VITALS: BP 93/51; PULSE 124; RESP 18; TEMP 35.5; O2SAT 99
--- NOTE | 2024-03-23 10:45 | ED.RN ---
room cleared. patient placed in gown, all belongings labeled and placed in secure bins outside of patients room
--- NOTE | 2024-03-23 11:13 | EX.ED.SAOD ---
HPI <ROMI Carter - Last Filed: 03/23/24 21:03> History of Present Illness Chief Complaint: Mental Health Narrative Narrative: Patient presenting today due to intoxication. She was found outside of [email or web address] acting bizarrely, she admits to alcohol and methamphetamine use. She denies IV drug use. She reports that she last used this morning but is unable to tell me how much. She denies HI, SI. She reports concerns for being given the wrong drug and states that she feels, really warm. PFSH <ROMI Carter - Last Filed: 03/23/24 21:03> [facility] Medical History Hypertension Substance abuse History of bipolar disorder History of schizophrenia Schizo affective schizophrenia Bipolar 1 disorder Alcohol abuse PTSD (post-traumatic stress disorder) Depression Anxiety Home Medications ?Medication ?Instructions ?Recorded ?Last Taken ?Type albuterol sulfate 90 mcg/actuation 1 - 2 puff inhalation Q4H PRN Sob 12/04/17 Unknown History aerosol inhaler (Ventolin HFA) &/Or Wheezing albuterol sulfate 90 mcg/actuation 6.7 gm IH Q2H PRN PRN Wheezing ##1 07/01/18 Unknown Rx aerosol inhaler folic acid 1 mg tablet 1 mg PO DAILY 07/22/23 Unknown History losartan 50 mg tablet 50 mg PO DAILY 07/22/23 Unknown History pregabalin 100 mg capsule 100 mg PO TID 07/22/23 Unknown History albuterol sulfate 90 mcg/actuation 1 - 2 puff inhalation Q4H PRN PRN 11/05/23 Unknown Rx aerosol inhaler (Ventolin HFA) Wheezing ##1 famotidine 20 mg tablet 20 mg PO BID #60 tabs 11/07/23 Unknown Rx olanzapine 2.5 mg tablet 5 mg (2 x 2.5 mg) PO QHS #30 tabs 11/07/23 Unknown Rx ondansetron HCl 8 mg tablet 8 mg PO Q8H PRN PRN Nausea #42 tabs 11/07/23 Unknown Rx hydroxyzine HCl 50 mg tablet 50 mg PO Q8H PRN PRN anxiety 11/27/23 Unknown History metoprolol succinate 25 mg 25 mg PO BID 11/27/23 Unknown History tablet,extended release 24 hr omeprazole 40 mg capsule,delayed 40 mg PO DAILY 11/27/23 Unknown History release Allergy/AdvReac Type Severity Reaction Status Date / Time Penicillins (PCN) Allergy Hives Verified 03/23/24 10:31 pine nut Allergy Hives Verified 03/23/24 10:31 Social History Smoking Status: Current some day smoker tobacco type: cigarettes and e-cigarettes substance use type: methamphetamine ROS <ROMI Carter - Last Filed: 03/23/24 21:03> ROS ED Constitutional Constitutional ED: Denies chills or fever(s) Cardiovascular Cardiovascular: Denies chest pain Respiratory/Chest Respiratory/Chest: Denies dyspnea Gastrointestinal Gastrointestinal: Denies abdominal pain, nausea or vomiting Musculoskeletal Musculoskeletal: Denies arthralgias or myalgias Integumentary Denies rash Neurologic Neurologic: Denies weakness Psychiatric Psychiatric: Denies anxiety, depression, suicidal ideation or suicidal thoughts EXAM <ROMI Carter - Last Filed: 03/23/24 21:03> Physical Exam Const Vital Signs: 03/23/24 10:32 03/23/24 12:15 03/23/24 16:50 Temperature 96 F L Temperature Source Temporal Pulse Rate 124 H 85 75 Respiratory Rate 18 16 18 Blood Pressure 93/51 L 142/74 H Blood Pressure Mean 65 96 Pulse Ox 99 99 98 Oxygen Delivery Method Room Air Room Air Room Air 03/23/24 18:34 Temperature Temperature Source Pulse Rate Respiratory Rate Blood Pressure 135/89 H Blood Pressure Mean 104 Pulse Ox Oxygen Delivery Method Positive well nourished, well developed and no apparent distress General Appearance ED: well developed HEENT Reports normocephalic and head/scalp atraumatic Mouth ED: Yes moist mucous membranes normal Eyes PERRL and EOMs intact bilaterally Neck full ROM and supple Chest Wall inspection of chest normal Resp normal respiratory effort and clear to auscultation bilaterally Cardio regular rate and regular rhythm GI soft to palpation, non-tender, non-distended and no masses Back/Spine normal ROM and normal to inspection Extremity normal to inspection and full ROM Neuro oriented x3, CN's II-XII intact bilaterally, moves all extremities, no focal motor deficits and no sensory deficits noted Sensorium / Orientation: awake and alert Psych Psych Narrative: Patient is intoxicated, belligerent, denying HI and SI, Skin no rashes or lesions noted and no wounds <Rickie Rayo MD - Last Filed: 03/23/24 21:06> Physical Exam Const Vital Signs: 03/23/24 10:32 03/23/24 12:15 03/23/24 16:50 Temperature 96 F L Temperature Source Temporal Pulse Rate 124 H 85 75 Respiratory Rate 18 16 18 Blood Pressure 93/51 L 142/74 H Blood Pressure Mean 65 96 Pulse Ox 99 99 98 Oxygen Delivery Method Room Air Room Air Room Air 03/23/24 18:34 Temperature Temperature Source Pulse Rate Respiratory Rate Blood Pressure 135/89 H Blood Pressure Mean 104 Pulse Ox Oxygen Delivery Method MDM <ROMI Carter - Last Filed: 03/23/24 21:03> [facility] Narrative Medical decision making narrative: Patient presenting today after being found wandering around in [facility] with concern for intoxication. She was behaving bizarrely. She does admit to methamphetamine and alcohol use. She has been seen here in the past for drug abuse. She is intoxicated during my exam, she was able to tell me that she did meth this morning. She otherwise has no acute complaints, she denies HI and SI. She initially was cooperative but did quickly become uncooperative with the nurse when trying to get a urine sample and started yelling. She was not easily redirectable and had to be given Geodon to help calm her down. She then was given Ativan after still feeling anxious and being uncooperative. Labs were obtained, she has a slight leukocytosis at 15, a potassium of 3, urine drug screen is positive for amphetamines, MDMA, cocaine, and THC. Alcohol is 0. Serum is 0. Patient given p.o. potassium. She was evaluate by the criminal justice social worker who recommends placement in psychiatric facility to help stabilize her as she has been out of her medication she takes for her schizoaffective disorder. She has been self-medicating with illicit substances. Patient is agreeable with this plan. She was pink slipped. Placement is pending. She has been medically cleared. Lab Data Attestation: I reviewed the patient's lab results. Labs: Laboratory Results - last 24 hr 03/23/24 03/23/24 11:32 15:56 WBC 15.1 H RBC 4.53 Hgb 14.2 Hct 42.1 MCV 92.9 MCH 31.3 MCHC 33.7 RDW Std Deviation 43.1 RDW Coeff of Jaden 12.6 Plt Count 322 MPV 10.0 Immature Gran % (Auto) 0.300 Neut % (Auto) 86.5 H Lymph % (Auto) 7.3 L [place] % (Auto) 5.6 Eos % (Auto) 0.0 Baso % (Auto) 0.3 Absolute Neuts (auto) 13.1 H Absolute Lymphs (auto) 1.11 Nucleated RBC % 0 Sodium 138 Potassium 3.0 L Chloride 104 Carbon Dioxide 21.0 Anion Gap 13 BUN 8 Creatinine 0.82 Est GFR (MDRD) Af Amer 110 Est GFR (MDRD) Non-Af 91 BUN/Creatinine Ratio 9.8 L Glucose 106 Calcium 9.6 Serum , Qual NEGATIVE Urine Opiates Screen NEGATIVE Urine Methadone Screen NEGATIVE Ur Barbiturates Screen NEGATIVE Ur Phencyclidine Scrn NEGATIVE Ur Amphetamines Screen POSITIVE H MDMA (Ecstasy) Screen POSITIVE H U Benzodiazepines Scrn NEGATIVE Urine Cocaine Screen POSITIVE H U Cannabinoids Screen POSITIVE H Ur Drug Screen Comment Ethyl Alcohol < 3.0 <Rickie Rayo MD - Last Filed: 03/23/24 21:06> [facility] Lab Data Labs: Laboratory Results - last 24 hr 03/23/24 03/23/24 11:32 15:56 WBC 15.1 H RBC 4.53 Hgb 14.2 Hct 42.1 MCV 92.9 MCH 31.3 MCHC 33.7 RDW Std Deviation 43.1 RDW Coeff of Jaden 12.6 Plt Count 322 MPV 10.0 Immature Gran % (Auto) 0.300 Neut % (Auto) 86.5 H Lymph % (Auto) 7.3 L Bethel % (Auto) 5.6 Eos % (Auto) 0.0 Baso % (Auto) 0.3 Absolute Neuts (auto) 13.1 H Absolute Lymphs (auto) 1.11 Nucleated RBC % 0 Sodium 138 Potassium 3.0 L Chloride 104 Carbon Dioxide 21.0 Anion Gap 13 BUN 8 Creatinine 0.82 Est GFR (MDRD) Af Amer 110 Est GFR (MDRD) Non-Af 91 BUN/Creatinine Ratio 9.8 L Glucose 106 Calcium 9.6 Serum , Qual NEGATIVE Urine Opiates Screen NEGATIVE Urine Methadone Screen NEGATIVE Ur Barbiturates Screen NEGATIVE Ur Phencyclidine Scrn NEGATIVE Ur Amphetamines Screen POSITIVE H MDMA (Ecstasy) Screen POSITIVE H U Benzodiazepines Scrn NEGATIVE Urine Cocaine Screen POSITIVE H U Cannabinoids Screen POSITIVE H Ur Drug Screen Comment Ethyl Alcohol < 3.0 Management Discussion w/another healthcare provider: Behavioral health Treatment and Re-Evaluation Narrative: Dr. Rayo: I have personally performed a face to face assessment of the patient and have reviewed the CRISTY Note. I performed a substantive portion of the visit including all aspects of the following. My bustos findings include: History is psychosis. History of schizoaffective disorder. History of drug use. Exam is afebrile. Vital signs noted. Positive agitation, ambulatory in ED. For safety of patient and staff, intramuscular injection of Geodon. Medical Decision Making: Medical clearance labs. Check urine for drugs of abuse. Medically cleared for evaluation by crisis. They recommend placement because of the psychosis and her not being on medications for her schizoaffective disorder. Patient currently awaiting placement. She will be signed out to the overnight physician. Disposition is transferred pending placement in a psychiatric facility. Other additions or changes: [None] Discharge Plan Triage Chief Complaint: Mental Health ED Midlevel Provider: Patti Antunez ED Provider: Rickie Rayo Dx/Rx/DC Orders Clinical Impression: Polysubstance abuse, Schizoaffective disorder, Hypokalemia Prescriptions: No Action albuterol sulfate [Ventolin HFA] 90 MCG HFA aerosol inhaler 1 - 2 puff inhalation Q4H MDD S PRN (Reason: Sob &/Or Wheezing) albuterol sulfate 6.7 GM HFA aerosol inhaler 6.7 gm IH Q2H PRN PRN (Reason: Wheezing) Qty: 1 1RF losartan 50 mg tablet 50 mg PO DAILY folic acid 1 mg tablet 1 mg PO DAILY pregabalin 100 mg capsule 100 mg PO TID famotidine 20 mg Tablet 20 mg PO BID Qty: 60 0RF olanzapine 2.5 mg Tablet 5 mg PO QHS Qty: 30 0RF ondansetron HCl 8 mg Tablet 8 mg PO Q8H PRN PRN (Reason: Nausea) Qty: 42 0RF albuterol sulfate [Ventolin HFA] 90 mcg/actuation HFA aerosol inhaler 1 - 2 puff inhalation Q4H PRN PRN (Reason: Wheezing) Qty: 1 0RF hydroxyzine HCl 50 mg tablet 50 mg PO Q8H PRN PRN (Reason: anxiety) omeprazole 40 mg capsule,delayed release(DR/EC) 40 mg PO DAILY metoprolol succinate 25 mg tablet extended release 24 hr 25 mg PO BID Primary Care Provider: Anthony Shepard Referrals: Anthony Shepard MD [Primary Care Provider] - Print Language: Turkish
[2024-03-23 11:47] LABS: Absolute Lymphocyte Count 1.11 X10^3/uL (0.83-4.51); Absolute Neutrophil Count 13.1 X10^3/uL (2.0-7.7); Basophil# 0.04 X10^3/uL; Basophil% 0.3 % (0-1); Hematocrit 42.1 % (37-47); Hemoglobin 14.2 g/dL (12.0-15.0); Lymphocyte # 1.11 X10^3/ul (0.83-4.51); Lymphocyte % 7.3 % (19-41); Mean Corp Hgb Conc 33.7 g/dL (32-36); Mean Corpuscular Hgb 31.3 pg (27.0-32.0); Mean Corpuscular Volume 92.9 fL (81-99); Monocyte# 0.84 X10^3/uL; Monocyte% 5.6 % (0-10); NRBC Flagged by Analyzer 0 % (0-5); Neutrophil # 13.09 X10^3/uL (2.7-7.7); Neutrophil % 86.5 % (47-70); Platelet Count 322 K/mm3 (150-450); RBC Distribution Width CV 12.6 % (11.6-14.6); RBC Distribution Width SD 43.1 fl (35.1-43.9); Red Blood Count 4.53 M/mm3 (4.2-5.4); White Blood Count 15.1 K/mm3 (4.4-11.0)
[2024-03-23 12:08] LABS: Alcohol, Blood (Medical)-Serum < 3.0 mg/dL
[2024-03-23 12:15] VITALS: BP 142/74; PULSE 85; RESP 16; O2SAT 99
[2024-03-23 12:24] LABS: Anion Gap 13 (5-15); BUN 8 mg/dL (7-18); BUN/Creat Ratio 9.8 RATIO (10-20); Calcium,Total 9.6 mg/dL (8.5-10.1); Chloride 104 mmol/L (98-107); Creatinine, Serum 0.82 mg/dL (0.55-1.02); EST Glomerular Filtration Rate 91 mL/min (>60); Est Glom Filt Rate - Afr Amer 110 mL/min (>60); Glucose 106 mg/dL (74-106); Sodium Level 138 mmol/L (136-145)
[2024-03-23 12:26] LABS: Internal QC Validated? YES +Cl - CLEAR BKGD; Pregnancy, Serum, hCG Quali. NEGATIVE Negative
[2024-03-23] MEDS: Ziprasidone IM 20 MG/ML VIAL IM (13:58)
[2024-03-23] MEDS: LORazepam 2 MG/ML Syringe 1 MG IM ×2 (14:36→22:32)
[2024-03-23 16:25] LABS: Amphetamine Urine POSITIVE (<1000 ng/mL); Barbiturate Urine VISTA NEGATIVE (< 200 ng/mL); Benzodiazepine Urine VISTA NEGATIVE (< 200 ng/mL); Cocaine Urine VISTA POSITIVE (< 300 ng/mL); Ecstacy Urine VISTA POSITIVE (< 500 ng/mL); Methadone Urine VISTA NEGATIVE (< 300 ng/mL); Opiates Urine NEGATIVE (< 300 ng/mL); PCP Urine NEGATIVE (< 25 ng/mL); THC Urine VISTA POSITIVE (< 50 ng/mL); Vista UDS pH Range 5
[2024-03-23 16:50] VITALS: PULSE 75; RESP 18; O2SAT 98
[2024-03-23 18:34] VITALS: BP 135/89
[2024-03-23] MEDS: Potassium Chloride Oral Tablet 20 MEQ 40 MEQ PO (22:07)
[2024-03-23 22:59] VITALS: BP 143/96; PULSE 83; RESP 22; TEMP 36.6; O2SAT 99
== END 2024-03-23 23:03 ==
PROVIDERS: Physician Assistant; Emergency Provider Emergency Medicine; PCP Family Medicine; Visit Provider Emergency Medicine
DX: F15.129 Other stimulant abuse with intoxication, unspecified (principal); F25.0 Schizoaffective disorder, bipolar type; F14.10 Cocaine abuse, uncomplicated; F16.10 Hallucinogen abuse, uncomplicated; F12.10 Cannabis abuse, uncomplicated; F17.210 Nicotine dependence, cigarettes, uncomplicated; F17.290 Nicotine dependence, other tobacco product, uncomplicated; E87.6 Hypokalemia; I10 Essential (primary) hypertension; Z79.899 Other long term (current) drug therapy
CPT/HCPCS: 51701; 80048; 80307; 82077; 84703; 85025; 96372; 99285; P9612; J3486

== ENCOUNTER 2024-04-25 14:11 | Emergency (ER) | payer MEDICAID, SELFPAY ==
[2024-04-25 14:12] VITALS: BP 169/94; PULSE 134; RESP 22; TEMP 36.4; O2SAT 100; BMI 47.8
[2024-04-25] MEDS: Lorazepam 2 MG/ML WCH Syringe IV (14:41)
--- NOTE | 2024-04-25 15:00 | EX.ED.DYSGE1 ---
HPI History of Present Illness Chief Complaint: Anxiety Detail of Chief Complaint: Patient feels anxious after doing a bad batch of methamphetamine . Informant: patient Onset/Context/Timing Onset: Hours Context: Sudden Onset Timing: Continuous Quality: Anxious, palpitations, dyspnea Location: Generalized Current Severity: Moderate Maximum Severity: Severe Worsened by: The more she thinks about it Relieved by: Nothing Associated Symptoms Associated Symptoms: No other symptoms Narrative Narrative: Patient is a 23-year-old woman. She states she smoked methamphetamine 1 to 2 hours prior to presentation. She feels anxious, palpitations, nausea, sweaty and believes she got a bad batch of methamphetamine . She states this happened a while ago. Denies headache, visual, ocular auditory symptoms. Denies ringing ears decreased hearing. Denies trouble speech or swallowing. Does report [place]. She denies chest pressure or tightness. She denies abdominal pain, vomit or diarrhea. She does report mild nausea. She denies dysuria, frequency, urgency or hematuria. She denies any skin lesions. Prior similar symptoms: Yes Recent Illness/Hospitalization: No [facility] Medical History Hypertension Substance abuse History of bipolar disorder History of schizophrenia Schizo affective schizophrenia Bipolar 1 disorder Alcohol abuse PTSD (post-traumatic stress disorder) Depression Anxiety Home Medications ?Medication ?Instructions ?Recorded ?Last Taken ?Type albuterol sulfate 90 mcg/actuation 1 - 2 puff inhalation Q4H PRN Sob 12/04/17 Unknown History aerosol inhaler (Ventolin HFA) &/Or Wheezing albuterol sulfate 90 mcg/actuation 6.7 gm IH Q2H PRN PRN Wheezing ##1 07/01/18 Unknown Rx aerosol inhaler folic acid 1 mg tablet 1 mg PO DAILY 07/22/23 Unknown History losartan 50 mg tablet 50 mg PO DAILY 07/22/23 Unknown History pregabalin 100 mg capsule 100 mg PO TID 07/22/23 Unknown History albuterol sulfate 90 mcg/actuation 1 - 2 puff inhalation Q4H PRN PRN 11/05/23 Unknown Rx aerosol inhaler (Ventolin HFA) Wheezing ##1 famotidine 20 mg tablet 20 mg PO BID #60 tabs 11/07/23 Unknown Rx olanzapine 2.5 mg tablet 5 mg (2 x 2.5 mg) PO QHS #30 tabs 11/07/23 Unknown Rx ondansetron HCl 8 mg tablet 8 mg PO Q8H PRN PRN Nausea #42 tabs 11/07/23 Unknown Rx hydroxyzine HCl 50 mg tablet 50 mg PO Q8H PRN PRN anxiety 11/27/23 Unknown History metoprolol succinate 25 mg 25 mg PO BID 11/27/23 Unknown History tablet,extended release 24 hr omeprazole 40 mg capsule,delayed 40 mg PO DAILY 11/27/23 Unknown History release Allergy/AdvReac Type Severity Reaction Status Date / Time Penicillins (PCN) Allergy Hives Verified 04/25/24 14:15 pine nut Allergy Hives Verified 04/25/24 14:15 Family History no significant family his Social History Smoking Status: Current some day smoker tobacco type: cigarettes and e-cigarettes substance use type: methamphetamine ROS ROS ED Constitutional Constitutional ED: Reports sweats; Denies chills, fever(s), subjective or weight loss Eyes Eyes: Denies blurry vision or change in vision ENT ENT ED: Denies ear pain, rhinorrhea or sore throat Cardiovascular Cardiovascular: Reports palpitations and racing heartbeat; Denies chest pain or orthopnea Respiratory/Chest Respiratory/Chest: Reports dyspnea; Denies cough, dyspnea on exertion or orthopnea Gastrointestinal Gastrointestinal: Reports nausea; Denies abdominal pain, constipation, diarrhea or vomiting Musculoskeletal Musculoskeletal: Denies arthralgias, back pain, myalgias or neck pain Integumentary Denies rash Neurologic Neurologic: Reports paresthesias; Denies headache(s) Psychiatric Psychiatric: Reports anxiety Endocrine Endocrinology: Denies cold intolerance or heat intolerance Hematologic/Lymphatic Hematologic/Lymphatic: Reports systems reviewed and no addt'l complaints, except as documented EXAM Physical Exam Const Vital Signs: 04/25/24 14:12 Temperature 97.6 F L Temperature Source Temporal Pulse Rate 134 H Respiratory Rate 22 H Blood Pressure 169/94 H Blood Pressure Mean 119 Pulse Ox 100 Oxygen Delivery Method Room Air Positive well nourished and well developed Constitutional Narrative: Patient appears anxious. She is jittery. She is slightly diaphoretic. General Appearance ED: well developed and diaphoretic; Negative for cyanotic, NAD or pallor HEENT Reports dry mucous membranes HEENT Narrative: Head is atraumatic normocephalic. Ears normal. Nares patent. Posterior pharynx is normal. Mouth ED: Yes dry mucous membranes Mouth: dry mucous membranes Eyes PERRL and EOMs intact bilaterally General Eye ED: Negative for pale conjunctiva or scleral icterus Neck no lymphadenopathy, supple and no JVD Chest Wall inspection of chest normal and palpation of chest normal Resp normal respiratory effort and clear to auscultation bilaterally Cardio regular rhythm, S1 normal heart sound, S2 normal heart sound and no murmurs Rate: tachycardic GI normal to inspection, nondistended, normoactive bowel sounds, non-tender, non-distended and no masses; Negative for hepatosplenomegaly Extremity normal to inspection General Extremety ED: Negative for edema or tenderness General Extremity: Negative for edema Neuro oriented x3, CN's II-XII intact bilaterally and no sensory deficits noted Sensorium / Orientation: alert Motor Exam: strength 5/5 throughout Psych mental status grossly normal Attitude: agitated Mood & Affect: anxious Skin no rashes or lesions noted, no wounds and skin turgor normal General Skin Exam: elasticity normal; Negative for jaundice or pallor MDM MDM MDM Narrative Medical decision making narrative: Patient's constellation consistent with the methamphetamine use. Patient was placed on a monitor to assess for any active the PE. She was treated with IV Ativan since we do not have IV Valium. Will observe and monitor pressure, heart rate. Treatment and Re-Evaluation :: Patient was reassessed at 1528. Patient now complaining of heartburn/reflux. Will treat with GI cocktail. She states her anxiety palpitations have improved. Discharge Plan Triage Chief Complaint: Anxiety ED Provider: Filippo Fuentes Dx/Rx/DC Orders Clinical Impression: Methamphetamine abuse, Elevated blood-pressure reading without diagnosis of hypertension, Sinus tachycardia seen on purchasing administrator, Anxiety reaction, Heartburn Instructions: Meth Abuse Addiction, ED Hypertension, To Be Confirmed Prescriptions: No Action albuterol sulfate [Ventolin HFA] 90 MCG HFA aerosol inhaler 1 - 2 puff inhalation Q4H MDD S PRN (Reason: Sob &/Or Wheezing) albuterol sulfate 6.7 GM HFA aerosol inhaler 6.7 gm IH Q2H PRN PRN (Reason: Wheezing) Qty: 1 1RF losartan 50 mg tablet 50 mg PO DAILY folic acid 1 mg tablet 1 mg PO DAILY pregabalin 100 mg capsule 100 mg PO TID famotidine 20 mg Tablet 20 mg PO BID Qty: 60 0RF olanzapine 2.5 mg Tablet 5 mg PO QHS Qty: 30 0RF ondansetron HCl 8 mg Tablet 8 mg PO Q8H PRN PRN (Reason: Nausea) Qty: 42 0RF albuterol sulfate [Ventolin HFA] 90 mcg/actuation HFA aerosol inhaler 1 - 2 puff inhalation Q4H PRN PRN (Reason: Wheezing) Qty: 1 0RF hydroxyzine HCl 50 mg tablet 50 mg PO Q8H PRN PRN (Reason: anxiety) omeprazole 40 mg capsule,delayed release(DR/EC) 40 mg PO DAILY metoprolol succinate 25 mg tablet extended release 24 hr 25 mg PO BID Primary Care Provider: Anthony Shepard Referrals: Anthony Shepard MD [Primary Care Provider] - 1-2 Weeks Activity Restrictions/Additional Instructions: Your blood pressure is elevated. You should have this reassessed in 1 to 2 weeks by your doctor, Dr. Anthony Shepard Print Language: Occitan Disposition Disposition: Home, Self Care
[2024-04-25] MEDS: Lidocaine 2% Viscous15 ML UDC 15 ML PO (15:40)
[2024-04-25] MEDS: Mag Hydrox/Al Hydrox/Simeth 30 ML UDC PO (15:40)
== END 2024-04-25 15:42 | disposition home or self-care (01) ==
PROVIDERS: Emergency Provider Emergency Medicine; PCP Family Medicine; Visit Provider Emergency Medicine
DX: F41.1 Generalized anxiety disorder (principal); F15.10 Other stimulant abuse, uncomplicated; R03.0 Elevated blood-pressure reading, without diagnosis of hypertension; R12 Heartburn; F17.210 Nicotine dependence, cigarettes, uncomplicated; F17.290 Nicotine dependence, other tobacco product, uncomplicated
CPT/HCPCS: 96374; 99284

== ENCOUNTER 2024-04-28 02:46 | Emergency (ER) | payer MEDICAID, SELFPAY ==
[2024-04-28 02:49] VITALS: BP 164/98; PULSE 127; RESP 18; TEMP 37.2; O2SAT 98; BMI 46.9
[2024-04-28 02:53] VITALS: O2SAT 98
--- NOTE | 2024-04-28 02:57 | ED.RN ---
This RN unable to complete medication list at this time. Patient is poor historian and reports I have not taken my medications because they are at someone else's house and I don't have them
--- NOTE | 2024-04-28 02:59 | EX.ED.DYSGE1 ---
HPI History of Present Illness Chief Complaint: Anxiety Informant: patient and EMS Narrative Narrative: 23-year-old female presenting to the emergency room chief complaint of anxiety and sore throat. Patient states that about 1 to 2 hours prior to arrival she smoked methamphetamines. This is caused irritation to her throat and she states she does not feel like she is getting enough oxygen to breathe. She was just seen here not even 72 hours ago for anxiety after ingestions of amphetamines. She states that she is not taking any of her prescription medications. [facility] Medical History Hypertension Substance abuse History of bipolar disorder History of schizophrenia Schizo affective schizophrenia Bipolar 1 disorder Alcohol abuse PTSD (post-traumatic stress disorder) Depression Anxiety Home Medications ?Medication ?Instructions ?Recorded ?Last Taken ?Type albuterol sulfate 90 mcg/actuation 1 - 2 puff inhalation Q4H PRN Sob 12/04/17 Unknown History aerosol inhaler (Ventolin HFA) &/Or Wheezing albuterol sulfate 90 mcg/actuation 6.7 gm IH Q2H PRN PRN Wheezing ##1 07/01/18 Unknown Rx aerosol inhaler folic acid 1 mg tablet 1 mg PO DAILY 07/22/23 Unknown History losartan 50 mg tablet 50 mg PO DAILY 07/22/23 Unknown History pregabalin 100 mg capsule 100 mg PO TID 07/22/23 Unknown History albuterol sulfate 90 mcg/actuation 1 - 2 puff inhalation Q4H PRN PRN 11/05/23 Unknown Rx aerosol inhaler (Ventolin HFA) Wheezing ##1 famotidine 20 mg tablet 20 mg PO BID #60 tabs 11/07/23 Unknown Rx olanzapine 2.5 mg tablet 5 mg (2 x 2.5 mg) PO QHS #30 tabs 11/07/23 Unknown Rx ondansetron HCl 8 mg tablet 8 mg PO Q8H PRN PRN Nausea #42 tabs 11/07/23 Unknown Rx hydroxyzine HCl 50 mg tablet 50 mg PO Q8H PRN PRN anxiety 11/27/23 Unknown History metoprolol succinate 25 mg 25 mg PO BID 11/27/23 Unknown History tablet,extended release 24 hr omeprazole 40 mg capsule,delayed 40 mg PO DAILY 11/27/23 Unknown History release Allergy/AdvReac Type Severity Reaction Status Date / Time Penicillins (PCN) Allergy Hives Verified 04/28/24 02:48 pine nut Allergy Hives Verified 04/28/24 02:48 Social History Smoking Status: Current every day smoker tobacco type: cigarettes and e-cigarettes substance use type: methamphetamine ROS ROS ED Constitutional Constitutional ED: Denies chills, fever(s) or weight loss Eyes Eyes: Denies change in vision or diplopia ENT ENT ED: Reports other Details: Choking on phlegm ; Denies ear pain, rhinorrhea or sore throat Cardiovascular Cardiovascular: Denies chest pain, orthopnea, palpitations or racing heartbeat Respiratory/Chest Respiratory/Chest: Reports dyspnea; Denies cough or orthopnea Gastrointestinal Gastrointestinal: Denies abdominal pain, diarrhea, nausea or vomiting Genitourinary Genitourinary ED: Denies dysuria, hematuria or urinary frequency Musculoskeletal Musculoskeletal: Denies arthralgias or myalgias Integumentary Denies abscess or rash Neurologic Neurologic: Denies headache(s) or weakness Psychiatric Psychiatric: Reports anxiety; Denies depression, suicidal ideation or suicidal thoughts Endocrine Endocrinology: Denies polydipsia, polyphagia or polyuria Allergic/Immunologic Allergic/Immunologic ED: Denies mouth swelling, tongue swelling or urticaria EXAM Physical Exam Narrative Exam Narrative: Patient yelling throughout the department whenever she is left alone that she is going to . She is in no acute distress. Const Vital Signs: 04/28/24 02:49 04/28/24 02:53 04/28/24 03:47 Temperature 99.0 F Temperature Source Oral Pulse Rate 127 H 125 H Respiratory Rate 18 18 Respiratory Depth Shallow Respiratory Pattern Normal Blood Pressure 164/98 H 160/99 H Blood Pressure Mean 120 119 Pulse Ox 98 100 Oxygen Delivery Method Room Air Room Air Room Air 04/28/24 05:00 Temperature Temperature Source Pulse Rate 120 H Respiratory Rate 18 Respiratory Depth Respiratory Pattern Blood Pressure 164/92 H Blood Pressure Mean 116 Pulse Ox 100 Oxygen Delivery Method Room Air Positive well nourished and well developed General Appearance ED: well developed and NAD HEENT Reports normocephalic, head/scalp atraumatic and moist mucous membranes HEENT Narrative: I do not appreciate any stridor or oropharyngeal erythema or obvious tonsillar peritonsillar retropharyngeal abscess. She is handling her secretions. She is constantly clearing her throat but no phlegm is coming up. Eyes PERRL and EOMs intact bilaterally Neck no lymphadenopathy, supple and no JVD Resp normal respiratory effort and clear to auscultation bilaterally Resp Narrative: She is speaking in full sentences Cardio regular rate, regular rhythm and no murmurs Rate: tachycardic GI normal to inspection, nondistended, normoactive bowel sounds and non-tender Palpation: soft Back/Spine no CVA tenderness and normal ROM Extremity normal to inspection General Extremety ED: Negative for edema General Extremity: Negative for edema Neuro oriented x3 and CN's II-XII intact bilaterally Sensorium / Orientation: alert Motor Exam: strength 5/5 throughout Psych Mood & Affect: anxious; Negative for depressed or tearful Skin no rashes or lesions noted and no wounds MDM MDM MDM Narrative Medical decision making narrative: Differential diagnosis includes but not limited to anxiety reaction methamphetamine abuse chemical irritation of the pharynx retropharyngeal peritonsillar or tonsillar abscess GERD pneumothorax Patient has clear and equal breath sounds bilaterally. test is negative. Because of the methamphetamine ingestion Ativan was given. I strongly redirected her away from the belief that something was stuck in her throat and the patient started to calm down. She states now she believes that it is her GERD. She received a Protonix as she did not want anything thick. She also received a dose of Maalox. She states that the thick medicine that she was given last time (GI cocktail) did not set well with her. Patient states that she needs something more for anxiety but is not like to be strong. A dose of IV Benadryl was given. Patient is satting normally on the monitor. I do not believe that she has a pneumothorax. I see no evidence of infection. I believe this is all related to her smoking methamphetamines tonight and her underlying mental health. Patient will be for to 180. History & Record Review Discussion w/independent historian: Patient Lab Data Attestation: I reviewed the patient's lab results. Labs: Laboratory Results - last 24 hr 04/28/24 03:08 Serum , Qual NEGATIVE Discharge Plan Triage Chief Complaint: Anxiety ED Provider: Amari Nicholas Dx/Rx/DC Orders Clinical Impression: Methamphetamine abuse, Anxiety reaction, Pharyngeal irritation Instructions: Meth Abuse Addiction, ED Anxiety Reaction Prescriptions: No Action albuterol sulfate [Ventolin HFA] 90 MCG HFA aerosol inhaler 1 - 2 puff inhalation Q4H MDD S PRN (Reason: Sob &/Or Wheezing) albuterol sulfate 6.7 GM HFA aerosol inhaler 6.7 gm IH Q2H PRN PRN (Reason: Wheezing) Qty: 1 1RF losartan 50 mg tablet 50 mg PO DAILY folic acid 1 mg tablet 1 mg PO DAILY pregabalin 100 mg capsule 100 mg PO TID famotidine 20 mg Tablet 20 mg PO BID Qty: 60 0RF olanzapine 2.5 mg Tablet 5 mg PO QHS Qty: 30 0RF ondansetron HCl 8 mg Tablet 8 mg PO Q8H PRN PRN (Reason: Nausea) Qty: 42 0RF albuterol sulfate [Ventolin HFA] 90 mcg/actuation HFA aerosol inhaler 1 - 2 puff inhalation Q4H PRN PRN (Reason: Wheezing) Qty: 1 0RF hydroxyzine HCl 50 mg tablet 50 mg PO Q8H PRN PRN (Reason: anxiety) omeprazole 40 mg capsule,delayed release(DR/EC) 40 mg PO DAILY metoprolol succinate 25 mg tablet extended release 24 hr 25 mg PO BID Primary Care Provider: Anthony Shepard Referrals: Anthony Shepard MD [Primary Care Provider] - As Needed [facility] [Non-Staff] - As soon as possible (for drug abuse treatment) Print Language: Welsh Disposition Disposition: Home, Self Care
[2024-04-28] MEDS: Lorazepam 2 MG/ML WCH Syringe 1 MG IV (03:10)
[2024-04-28 03:27] LABS: Internal QC Validated? YES +Cl - CLEAR BKGD; Pregnancy, Serum, hCG Quali. NEGATIVE Negative
[2024-04-28 03:47] VITALS: BP 160/99; PULSE 125; RESP 18; O2SAT 100
--- NOTE | 2024-04-28 04:30 | ED.RN ---
At this time, the patient is yelling and screaming that she needs help and that she cannot breathe. Patient states my airway is closing. The patient has been reassessed by this RN and the physician multiple times to reassure the patient that her vital signs are WNL and that her airway was patent. The patient continues to yell out for help and leaving her room in order to yell for help and tell us that she cannot breathe. The patient is able to walk and talk clearly.
[2024-04-28 05:00] VITALS: BP 164/92; PULSE 120; RESP 18; O2SAT 100
--- NOTE | 2024-04-28 05:00 | ED.RN ---
This RN was called to the bedside d/t the patient yelling for help. This RN assessed the patient. The patient explained to this RN that my GERD is really acting up and I just feel like there is so much acid in my throat and my stomach and that is why I am so anxious and why I cannot breathe. This RN educated the patient and notified the MD.
[2024-04-28] MEDS: Pantoprazole Sodium 40 MG Tablet PO (05:22)
[2024-04-28] MEDS: Magnesium Hydroxide 30 ML UDC PO (05:22)
[2024-04-28] MEDS: DiphenhydrAMINE 50 MG/ML Syringe IV (05:42)
[2024-04-28 05:47] VITALS: BP 150/92; PULSE 98; RESP 18; TEMP 36.7; O2SAT 99
== END 2024-04-28 05:55 | disposition home or self-care (01) ==
PROVIDERS: Emergency Provider Emergency Medicine; PCP Family Medicine; Visit Provider Emergency Medicine
DX: F15.180 Other stimulant abuse with stimulant-induced anxiety disorder (principal); F15.188 Other stimulant abuse with other stimulant-induced disorder; I10 Essential (primary) hypertension; F17.290 Nicotine dependence, other tobacco product, uncomplicated; F17.210 Nicotine dependence, cigarettes, uncomplicated; K21.9 Gastro-esophageal reflux disease without esophagitis
CPT/HCPCS: 84703; 96374; 96375; 99285; A4216

== ENCOUNTER 2024-05-05 01:05 | Emergency (ER) | payer MEDICAID, SELFPAY ==
[2024-05-05 01:06] VITALS: PULSE 126; RESP 20; TEMP 36.8; O2SAT 99; BMI 43.0
--- NOTE | 2024-05-05 01:20 | EX.ED.DYSGE1 ---
HPI History of Present Illness Chief Complaint: Mental Health Informant: patient and EMS Narrative Narrative: Patient is a 23-year-old female with past medical history of anxiety bipolar disorder schizophrenia and methamphetamine abuse. She states that she last used methamphetamine 1 to 2 days ago. She reports she has been seeing bugs underneath her skin. She reports that if she squeezes the skin near her nails there will be a black dot that appears which she believes is a bug. She also states that if she squeezes her lips or tongue there will be white discoloration which she feels is an insect as well. She states that because she feels they are constant presents this is increasing her anxiety and with potential for treatment to resolve her infestation she called EMS to be brought in for evaluation [facility] Medical History Hypertension Substance abuse History of bipolar disorder History of schizophrenia Schizo affective schizophrenia Bipolar 1 disorder Alcohol abuse PTSD (post-traumatic stress disorder) Depression Anxiety Home Medications ?Medication ?Instructions ?Recorded ?Last Taken ?Type albuterol sulfate 90 mcg/actuation 1 - 2 puff inhalation Q4H PRN Sob 12/04/17 Unknown History aerosol inhaler (Ventolin HFA) &/Or Wheezing albuterol sulfate 90 mcg/actuation 6.7 gm IH Q2H PRN PRN Wheezing ##1 07/01/18 Unknown Rx aerosol inhaler folic acid 1 mg tablet 1 mg PO DAILY 07/22/23 Unknown History losartan 50 mg tablet 50 mg PO DAILY 07/22/23 Unknown History pregabalin 100 mg capsule 100 mg PO TID 07/22/23 Unknown History albuterol sulfate 90 mcg/actuation 1 - 2 puff inhalation Q4H PRN PRN 11/05/23 Unknown Rx aerosol inhaler (Ventolin HFA) Wheezing ##1 famotidine 20 mg tablet 20 mg PO BID #60 tabs 11/07/23 Unknown Rx olanzapine 2.5 mg tablet 5 mg (2 x 2.5 mg) PO QHS #30 tabs 11/07/23 Unknown Rx ondansetron HCl 8 mg tablet 8 mg PO Q8H PRN PRN Nausea #42 tabs 11/07/23 Unknown Rx hydroxyzine HCl 50 mg tablet 50 mg PO Q8H PRN PRN anxiety 11/27/23 Unknown History metoprolol succinate 25 mg 25 mg PO BID 11/27/23 Unknown History tablet,extended release 24 hr omeprazole 40 mg capsule,delayed 40 mg PO DAILY 11/27/23 Unknown History release permethrin 5 % topical cream 1 applic topical Q14D 2 doses #60 05/05/24 Unknown Rx (Elimite) grams Allergy/AdvReac Type Severity Reaction Status Date / Time Penicillins (PCN) Allergy Hives Verified 04/28/24 02:48 pine nut Allergy Hives Verified 04/28/24 02:48 Social History Smoking Status: Current every day smoker tobacco type: cigarettes and e-cigarettes substance use type: methamphetamine ROS ROS ED Constitutional Constitutional ED: Denies chills or fever(s) Eyes Eyes: Denies change in vision ENT ENT ED: Denies sore throat Cardiovascular Cardiovascular: Reports racing heartbeat; Denies chest pain Respiratory/Chest Respiratory/Chest: Denies cough or dyspnea Gastrointestinal Gastrointestinal: Denies abdominal pain, diarrhea, nausea or vomiting Genitourinary Genitourinary ED: Denies dysuria Musculoskeletal Musculoskeletal: Denies myalgias Integumentary Reports rash Neurologic Neurologic: Denies headache(s) Psychiatric Psychiatric: Reports anxiety; Denies suicidal ideation or suicidal thoughts Hematologic/Lymphatic Hematologic/Lymphatic: Denies easy bleeding or easy bruising Allergic/Immunologic Allergic/Immunologic ED: Denies mouth swelling or tongue swelling EXAM Physical Exam Const Vital Signs: 05/05/24 01:06 Temperature 98.3 F Temperature Source Oral Pulse Rate 126 H Respiratory Rate 20 H Pulse Ox 99 Positive well nourished, well developed and obese General Appearance ED: well developed Nutritional Appearance: obese HEENT Reports TM's clear HEENT Narrative: Patient has dry lips with skin breakdown diffusely but no lip swelling. No secondary findings to suggest infection such as abscess or cellulitis. No foreign object or insect is noted Mucous membranes are also dry and tacky. No tongue swelling. No internal/oral lesions. No findings of infestation Tympanic Membrane ED: Yes TM's clear bilateral Eyes PERRL and EOMs intact bilaterally Neck supple Neck Narrative: No nuchal rigidity or meningeal signs Resp normal respiratory effort and clear to auscultation bilaterally Resp Narrative: No nasal flaring retractions or accessory muscle use Cardio regular rhythm Rate: tachycardic and other Other Details: Tachycardic rate with regular rhythm Radial and carotid pulses are equal and symmetric Extremity normal to inspection Extremity Narrative: No asymmetric edema no pitting edema negative Homans' sign bilaterally Neuro oriented x3 and CN's II-XII intact bilaterally Sensorium / Orientation: alert Psych Psych Narrative: Patient has an agitated and anxious affect. However she denies any homicidal or suicidal ideation Attitude: agitated Mood & Affect: anxious Skin no rashes or lesions noted Skin Narrative: There are no obvious rashes or lesions noted across the patient's arms legs chest abdomen or back. No obvious marisol lesions in the web spacing of the hands or feet to suggest scabies. No lesions across the palms or soles. No insects such as bedbugs noted. MDM MDM MDM Narrative Medical decision making narrative: Patient presented to the ER tachycardic but otherwise with stable vitals. She did admit to recent methamphetamine use. She is anxious and agitated over her apparent perception of skin bug/insect but she denies any homicidal or suicidal ideation. On my physical exam I do not notice infestation such as bedbugs or obvious scabies or lice. She does not have reported homicidal or suicidal ideation and therefore there is no need for emergent psychiatric evaluation. The patient appears to have these delusions based on her methamphetamine use. However she does report that she believes they are small black dots underneath her skin which in theory could be findings of scabies. Therefore at this time as she is not homicidal or suicidal and there is no need for psychiatric evaluation I do not feel the need for a pink slip for blood work. She does not have signs of airway compromise or secondary infection such as cellulitis or abscess and therefore there is no need for laboratory studies either. I do not appreciate any infestation and this is most likely secondary to her methamphetamine abuse but as she reports small black dots this could be scabies so I will provide her with permethrin cream. However there is no need for further observation or testing in the ER and she is otherwise safe for discharge History & Record Review Discussion w/independent historian: EMS personnel and Patient Discharge Plan Triage Chief Complaint: Mental Health ED Provider: Daniel Herrera Dx/Rx/DC Orders Clinical Impression: Skin abnormality, Methamphetamine abuse, Anxiety reaction, Bipolar disorder, Schizophrenia Instructions: Meth Abuse Addiction, ED Scabies Prescriptions: New permethrin [Elimite] 5 % cream 1 applic topical Q14D Qty: 60 0RF Rx Instructions: Apply topically from head to feet. Leave on for 8 to 12 hours then wash off. If symptoms persist after 14 days repeat the application. No Action albuterol sulfate [Ventolin HFA] 90 MCG HFA aerosol inhaler 1 - 2 puff inhalation Q4H MDD S PRN (Reason: Sob &/Or Wheezing) albuterol sulfate 6.7 GM HFA aerosol inhaler 6.7 gm IH Q2H PRN PRN (Reason: Wheezing) Qty: 1 1RF losartan 50 mg tablet 50 mg PO DAILY folic acid 1 mg tablet 1 mg PO DAILY pregabalin 100 mg capsule 100 mg PO TID famotidine 20 mg Tablet 20 mg PO BID Qty: 60 0RF olanzapine 2.5 mg Tablet 5 mg PO QHS Qty: 30 0RF ondansetron HCl 8 mg Tablet 8 mg PO Q8H PRN PRN (Reason: Nausea) Qty: 42 0RF albuterol sulfate [Ventolin HFA] 90 mcg/actuation HFA aerosol inhaler 1 - 2 puff inhalation Q4H PRN PRN (Reason: Wheezing) Qty: 1 0RF hydroxyzine HCl 50 mg tablet 50 mg PO Q8H PRN PRN (Reason: anxiety) omeprazole 40 mg capsule,delayed release(DR/EC) 40 mg PO DAILY metoprolol succinate 25 mg tablet extended release 24 hr 25 mg PO BID Primary Care Provider: Anthony Shepard Referrals: Anthony Shepard MD [Primary Care Provider] - Activity Restrictions/Additional Instructions: In order to have further skin testing performed you will need to have your family doctor refer you to a annual giving officer. Please refrain from methamphetamine use as this can make your symptoms worse. Print Language: Bulgarian Disposition Disposition: Home, Self Care Discharge Date/Time: 05/05/24 01:36
--- NOTE | 2024-05-05 01:30 | ED.RN ---
Discharge papers given to patient. Pt tearful. Informed she has been discharged and if she did not leave willingly [place] [employer] would be called.
== END 2024-05-05 01:36 | disposition home or self-care (01) ==
LOC: ED 01:31
PROVIDERS: Emergency Provider Emergency Medicine; PCP Family Medicine; Visit Provider Emergency Medicine
DX: F15.10 Other stimulant abuse, uncomplicated (principal); F20.9 Schizophrenia, unspecified; F31.9 Bipolar disorder, unspecified; F17.210 Nicotine dependence, cigarettes, uncomplicated; F41.1 Generalized anxiety disorder; F17.290 Nicotine dependence, other tobacco product, uncomplicated
CPT/HCPCS: 99284

== ENCOUNTER 2024-05-30 21:40 | Emergency (ER) | payer MEDICAID, SELFPAY ==
[2024-05-30 21:40] VITALS: BP 116/103; PULSE 135; RESP 22; TEMP 36.5; O2SAT 100; BMI 43.6
--- NOTE | 2024-05-30 21:47 | ED.RN ---
PT TOLD THIS RN THAT SHE DOES NOT TRUST ANYONE AT THIS HOSPITAL AND DOES NOT WANT ANYONE CARING FOR HER UNLESS THERE IS A CAMERA IN THE ROOM. RN TOLD PT THAT THERE ARE NO CAMERAS IN THE ROOMS FOR PATIENT PRIVACY. PT STATED SHE DID NOT CARE AND WANTED A CAMERA IN THE ROOM WITH HER.
--- NOTE | 2024-05-30 22:08 | ED.RN ---
pt to be escorted to room to see ED doc. pt states she needed to go outside to smoke. informed pt that she is no allowed to smoke on the hospital property and if pt left department she would be deemed LWBS. Pt stated, whatever. and left department.
== END 2024-05-30 22:09 | disposition left against medical advice (07) ==
LOC: ED 22:10
PROVIDERS: PCP Family Medicine
DX: Z53.21 Procedure and treatment not carried out due to patient leaving prior to being seen by health care provider (principal)

== ENCOUNTER 2024-06-02 12:57 | Emergency (ER) | payer MEDICAID, SELFPAY ==
[2024-06-02 12:58] VITALS: BP 148/108; PULSE 125; RESP 16; TEMP 36.9; O2SAT 99; BMI 42.0
--- NOTE | 2024-06-02 13:13 | EX.ED.DYSGE1 ---
HPI History of Present Illness Chief Complaint: General Illness Detail of Chief Complaint: Patient with unusual symptoms. Patient was seen May 05 for mental health Informant: patient Onset/Context/Timing Onset: Today Context: - (Unable to determine) Timing: Intermittent Quality: Formication Location: Upper extremities Current Severity: Mild Maximum Severity: Severe Worsened by: Per patient parasites crawling under her skin Relieved by: Nothing Associated Symptoms Associated Symptoms: Nothing that patient admits to Narrative Narrative: Patient is a 23-year-old woman. She was seen on May 05, 2024 for mental health evaluation. She has history of anxiety disorder, bipolar affective disorder, schizophrenia and methamphetamine abuse. When asked if she smokes she acknowledged yes. When asked if she consumed alcoholic products she stated yes. And asked if she uses drugs her response was I am a recovering addict . When asked when was the last time she used she responded last night, but not much . Patient does not use any form of control. She is sexually active. She has no signs or symptoms of . Her biggest concern is that something is wrong inside her. She had complaints of seeing parasites in the past. She does have history of scabies. Patient denies headache, visual, ocular auditory symptoms. Patient denies cardiac or respiratory symptoms. Patient denies nausea, vomiting or diarrhea. Patient denies dysuria, frequency, urgency or hematuria. She does not recall when her last menses was. Prior similar symptoms: Yes Recent Illness/Hospitalization: Yes [facility] Medical History Hypertension Substance abuse History of bipolar disorder History of schizophrenia Schizo affective schizophrenia Bipolar 1 disorder Alcohol abuse PTSD (post-traumatic stress disorder) Depression Anxiety Home Medications ?Medication ?Instructions ?Recorded ?Last Taken ?Type albuterol sulfate 90 mcg/actuation 1 - 2 puff inhalation Q4H PRN Sob 12/04/17 Unknown History aerosol inhaler (Ventolin HFA) &/Or Wheezing albuterol sulfate 90 mcg/actuation 6.7 gm IH Q2H PRN PRN Wheezing ##1 07/01/18 Unknown Rx aerosol inhaler folic acid 1 mg tablet 1 mg PO DAILY 07/22/23 Unknown History losartan 50 mg tablet 50 mg PO DAILY 07/22/23 Unknown History pregabalin 100 mg capsule 100 mg PO TID 07/22/23 Unknown History albuterol sulfate 90 mcg/actuation 1 - 2 puff inhalation Q4H PRN PRN 11/05/23 Unknown Rx aerosol inhaler (Ventolin HFA) Wheezing ##1 famotidine 20 mg tablet 20 mg PO BID #60 tabs 11/07/23 Unknown Rx olanzapine 2.5 mg tablet 5 mg (2 x 2.5 mg) PO QHS #30 tabs 11/07/23 Unknown Rx ondansetron HCl 8 mg tablet 8 mg PO Q8H PRN PRN Nausea #42 tabs 11/07/23 Unknown Rx hydroxyzine HCl 50 mg tablet 50 mg PO Q8H PRN PRN anxiety 11/27/23 Unknown History metoprolol succinate 25 mg 25 mg PO BID 11/27/23 Unknown History tablet,extended release 24 hr omeprazole 40 mg capsule,delayed 40 mg PO DAILY 11/27/23 Unknown History release permethrin 5 % topical cream 1 applic topical Q14D 2 doses #60 05/05/24 Unknown Rx (Elimite) grams Allergy/AdvReac Type Severity Reaction Status Date / Time Penicillins (PCN) Allergy Hives Verified 06/02/24 12:58 pine nut Allergy Hives Verified 06/02/24 12:58 Social History Smoking Status: Current every day smoker tobacco type: cigarettes and e-cigarettes substance use type: methamphetamine ROS ROS ED Constitutional Constitutional ED: Denies chills, fever(s), subjective or sweats Eyes Eyes: Denies blurry vision or change in vision ENT ENT ED: Denies ear pain, rhinorrhea or sore throat Cardiovascular Cardiovascular: Denies chest pain, orthopnea, palpitations or paroxysmal nocturnal dyspnea Respiratory/Chest Respiratory/Chest: Denies cough, dyspnea, dyspnea on exertion, orthopnea or paroxysmal nocturnal dyspnea Gastrointestinal Gastrointestinal: Denies abdominal pain, diarrhea, nausea or vomiting Genitourinary Genitourinary ED: Denies dysuria, hematuria or urinary frequency Musculoskeletal Musculoskeletal: Denies arthralgias or myalgias Integumentary Denies rash Neurologic Neurologic: Denies paresthesias Psychiatric Psychiatric: Reports anxiety; Denies suicidal ideation Hematologic/Lymphatic Hematologic/Lymphatic: Reports systems reviewed and no addt'l complaints, except as documented EXAM Physical Exam Const Vital Signs: 06/02/24 12:58 06/02/24 13:31 Temperature 98.4 F Temperature Source Oral Pulse Rate 125 H Respiratory Rate 16 Respiratory Effort Normal Respiratory Pattern Normal Blood Pressure 148/108 H Blood Pressure Mean 121 Pulse Ox 99 Oxygen Delivery Method Room Air Positive well nourished Constitutional Narrative: Blood pressure is elevated 148/108. Heart rate is elevated 125. Patient is somewhat fidgety. BMI is 42. General Appearance ED: Negative for pallor HEENT Reports moist mucous membranes HEENT Narrative: Head is atraumatic normocephalic. There is no evidence of head lice. Ears are normal. Nares patent. Posterior pharynx is normal. Eyes PERRL and EOMs intact bilaterally General Eye ED: Negative for pale conjunctiva or scleral icterus Neck no lymphadenopathy, supple and no JVD Chest Wall inspection of chest normal and palpation of chest normal Resp normal respiratory effort and clear to auscultation bilaterally Cardio regular rhythm, S1 normal heart sound, S2 normal heart sound and no murmurs Rate: tachycardic GI normal to inspection, nondistended, normoactive bowel sounds, non-tender, non-distended and no masses; Negative for hepatosplenomegaly Back/Spine no CVA tenderness Back/Spine Narrative: Inspection of her back is normal. Extremity normal to inspection General Extremety ED: Negative for edema or tenderness General Extremity: Negative for edema Neuro oriented x3 and CN's II-XII intact bilaterally Sensorium / Orientation: alert Psych Psych Narrative: Patient reporting bugs crawling under her skin. Patient had very little eye contact. Speech is not pressured. She has no suicidal homicidal thoughts. Patient is concerned there is something seriously wrong inside of her. Skin no rashes or lesions noted, no wounds and skin turgor normal General Skin Exam: Negative for jaundice or pallor MDM MDM MDM Narrative Medical decision making narrative: This may represent exacerbation of her bipolar disorder and or schizophrenia. Also need to consider reaction to the methamphetamine which she has history of using and admits to using drugs last evening. Appropriate workup was undertaken to assess for metabolic or infectious causes of her symptoms. History & Record Review Additional record(s) reviewed:: Prior ED visit (Patient was seen in the ER on May 05. She was here for mental health reasons. She was discharged home to follow-up with her primary care physician Dr. Darrel Shepard.) and Prior labs Lab Data Attestation: I reviewed the patient's lab results. Lab results narrative: CBC is unremarkable. Urinalysis is unremarkable. Tox screen is presumptively positive for amphetamines and cannabis. Labs: Laboratory Results - last 24 hr 06/02/24 06/02/24 13:29 14:27 WBC 9.4 RBC 4.95 Hgb 15.8 H Hct 47.4 H MCV 95.8 MCH 31.9 MCHC 33.3 RDW Std Deviation 47.1 H RDW Coeff of Jaden 13.5 Plt Count 319 MPV 9.5 Immature Gran % (Auto) 0.100 Neut % (Auto) 63.0 Lymph % (Auto) 29.6 Bent % (Auto) 6.9 Eos % (Auto) 0.1 Baso % (Auto) 0.3 Absolute Neuts (auto) 5.9 Absolute Lymphs (auto) 2.78 Nucleated RBC % 0 Sodium Cancelled Potassium Cancelled Chloride Cancelled Carbon Dioxide Cancelled Anion Gap Cancelled BUN Cancelled Creatinine Cancelled Estim Creat Clear Calc Cancelled Est GFR (MDRD) Non-Af Cancelled BUN/Creatinine Ratio Cancelled Glucose Cancelled Calcium Cancelled Total Bilirubin Cancelled AST Cancelled ALT Cancelled Alkaline Phosphatase Cancelled Total Protein Cancelled Albumin Cancelled Globulin Cancelled Albumin/Globulin Ratio Cancelled Urine Color Yellow Urine Clarity Clear Urine pH 6.5 Ur Specific [place] 1.020 Urine Protein 30 H Urine Glucose (UA) Normal Urine Ketones 15 H Urine Occult Blood Negative Urine Nitrite Negative Urine Bilirubin 1 H Urine Urobilinogen 1 H Ur Leukocyte Esterase 25 H Urine RBC 0 SEEN Urine WBC 0-5 SEEN Ur Squamous Epith Cells 0-5 SEEN Urine Bacteria 0 SEEN Urine Mucus 1+ Urine Test Negative Urine Opiates Screen NEGATIVE U Buprenorphine Qual NEGATIVE Ur Oxycodone Screen NEGATIVE Urine Methadone Screen NEGATIVE Urine Fentanyl Screen NEGATIVE Ur Barbiturates Screen NEGATIVE Ur Phencyclidine Scrn NEGATIVE Ur Amphetamines Screen PRESUMPTIVE POSITIVE U Benzodiazepines Scrn NEGATIVE Urine Cocaine Screen NEGATIVE U Cannabinoids Screen PRESUMPTIVE POSITIVE Treatment and Re-Evaluation :: Suspect patient's increased activity, sense of formication and paranoia is due to the amphetamine use. Discharge Plan Triage Chief Complaint: General Illness ED Provider: Filippo Fuentes Dx/Rx/DC Orders Clinical Impression: Hallucinations of tactile sensation, Sinus tachycardia seen on court recording monitor, Cannabis use disorder, Amphetamine use, Drug-induced paranoia or hallucinations, Elevated blood-pressure reading without diagnosis of hypertension Instructions: Meth Abuse Addiction, ED Formication Prescriptions: No Action albuterol sulfate [Ventolin HFA] 90 MCG HFA aerosol inhaler 1 - 2 puff inhalation Q4H MDD S PRN (Reason: Sob &/Or Wheezing) albuterol sulfate 6.7 GM HFA aerosol inhaler 6.7 gm IH Q2H PRN PRN (Reason: Wheezing) Qty: 1 1RF losartan 50 mg tablet 50 mg PO DAILY folic acid 1 mg tablet 1 mg PO DAILY pregabalin 100 mg capsule 100 mg PO TID famotidine 20 mg Tablet 20 mg PO BID Qty: 60 0RF olanzapine 2.5 mg Tablet 5 mg PO QHS Qty: 30 0RF ondansetron HCl 8 mg Tablet 8 mg PO Q8H PRN PRN (Reason: Nausea) Qty: 42 0RF albuterol sulfate [Ventolin HFA] 90 mcg/actuation HFA aerosol inhaler 1 - 2 puff inhalation Q4H PRN PRN (Reason: Wheezing) Qty: 1 0RF hydroxyzine HCl 50 mg tablet 50 mg PO Q8H PRN PRN (Reason: anxiety) omeprazole 40 mg capsule,delayed release(DR/EC) 40 mg PO DAILY metoprolol succinate 25 mg tablet extended release 24 hr 25 mg PO BID permethrin [Elimite] 5 % cream 1 applic topical Q14D Qty: 60 0RF Rx Instructions: Apply topically from head to feet. Leave on for 8 to 12 hours then wash off. If symptoms persist after 14 days repeat the application. Primary Care Provider: Anthony Shepard Referrals: Anthony Shepard MD [Primary Care Provider] - As Needed [facility] [Non-Staff] - As soon as possible Print Language: Albanian Disposition Disposition: Home, Self Care
[2024-06-02 13:36] LABS: Absolute Lymphocyte Count 2.78 X10^3/uL (0.83-4.51); Absolute Neutrophil Count 5.9 X10^3/uL (2.0-7.7); Basophil# 0.03 X10^3/uL; Basophil% 0.3 % (0-1); Eosinophil# 0.01 X10^3/uL; Eosinophils% 0.1 % (0-5); Hematocrit 47.4 % (37-47); Hemoglobin 15.8 g/dL (12.0-15.0); Lymphocyte # 2.78 X10^3/ul (0.83-4.51); Lymphocyte % 29.6 % (19-41); Mean Corp Hgb Conc 33.3 g/dL (32-36); Mean Corpuscular Hgb 31.9 pg (27.0-32.0); Mean Corpuscular Volume 95.8 fL (81-99); Mean Platelet Vol. 9.5 fl (6.2-12.0); Monocyte# 0.65 X10^3/uL; Monocyte% 6.9 % (0-10); NRBC Flagged by Analyzer 0 % (0-5); Neutrophil # 5.92 X10^3/uL (2.7-7.7); Platelet Count 319 K/mm3 (150-450); RBC Distribution Width CV 13.5 % (11.6-14.6); RBC Distribution Width SD 47.1 fl (35.1-43.9); Red Blood Count 4.95 M/mm3 (4.2-5.4); White Blood Count 9.4 K/mm3 (4.4-11.0)
[2024-06-02 14:37] LABS: Bacteria 0 SEEN /hpf (None Seen); Red Blood Cells-Urine 0 SEEN /hpf (0-5)
[2024-06-02 14:40] LABS: Color, Urine Yellow (Yellow); Glucose, Dipstick Normal (Normal); Ketone-Dipstick 15 mg/dl (Negative); Leukocyte Esterase-Dipstick 25 /ul (Negative); Nitrite-Dipstick Negative (Negative); Occult Blood-Urine Negative /ul (Negative); Protein-Dipstick 30 mg/dl (Negative); Urine Clarity Clear (Clear); Urine Urobilinogen 1 mg/dl (Normal); Urine pH 6.5 (5.0 - 8.0)
[2024-06-02 14:43] LABS: Urine Bilirubin Dipstick 1 mg/dL (Negative)
[2024-06-02 14:46] LABS: Internal QC Validated? YES +Cl - CLEAR BKGD; Mucous, Urine 1+ /hpf (<or=2+); Pregnancy, Urine Negative Negative; Squamous Epithelial Cells - UA 0-5 SEEN /hpf (5-10); White Blood Cells 0-5 SEEN /hpf (0-5)
[2024-06-02 15:07] LABS: Amphetamine Urine PRESUMPTIVE POSITIVE (<1000 ng/mL); Barbiturate Urine NEGATIVE (< 200 ng/mL); Benzodiazepine Urine NEGATIVE (< 200 ng/mL); Buprenorphine Urine NEGATIVE (< 200 ng/mL); Cocaine Urine NEGATIVE (< 300 ng/mL); Fentanyl, Urine NEGATIVE; Methadone Urine NEGATIVE (< 300 ng/mL); Opiates Urine NEGATIVE (< 300 ng/mL); Oxycodone, Urine NEGATIVE (< 100 ng/mL); PCP Urine NEGATIVE (< 25 ng/mL); THC Urine PRESUMPTIVE POSITIVE (< 50 ng/mL)
== END 2024-06-02 15:30 | disposition home or self-care (01) ==
PROVIDERS: Emergency Provider Emergency Medicine; PCP Family Medicine; Visit Provider Emergency Medicine
DX: F22 Delusional disorders (principal); F25.9 Schizoaffective disorder, unspecified; F15.99 Other stimulant use, unspecified with unspecified stimulant-induced disorder; F31.9 Bipolar disorder, unspecified; F41.9 Anxiety disorder, unspecified; F17.210 Nicotine dependence, cigarettes, uncomplicated; I10 Essential (primary) hypertension; Z79.899 Other long term (current) drug therapy; F17.290 Nicotine dependence, other tobacco product, uncomplicated; R00.0 Tachycardia, unspecified; F12.99 Cannabis use, unspecified with unspecified cannabis-induced disorder; R03.0 Elevated blood-pressure reading, without diagnosis of hypertension
CPT/HCPCS: 84703; 80307; 81001; 81025; 85025; 99282

== ENCOUNTER 2024-06-13 04:57 | Emergency (ER) | payer MEDICAID, SELFPAY ==
[2024-06-13 04:58] VITALS: BP 146/89; PULSE 103; RESP 18; TEMP 36.8; O2SAT 98; BMI 42.0
--- NOTE | 2024-06-13 05:24 | ED.RN ---
Physician in room, repeatedly asking questions and patient is not cooperating. Patient refusing to answer questions appropriately, states it doesn't matter what I drink or how much just admit me. Pt uncooperative with RN Britnay attempting IV and completing assessment. This nurse heard conversations through door and went in to room to assist after pt states to Dr. Herrera that he is not a real medical doctor. This nurse to room and informs pt that she needs to be cooperative with assessment and answer his questions appropriately or she would need to leave. Patient refuses to cooperate. Patient states she is going to wait and refuse to leave until day shift doctor arrives. Informed patient that was not an option. Security and HRO to bedside and removed patient from hospital property.
--- NOTE | 2024-06-13 05:25 | EX.ED.DYSGE1 ---
HPI History of Present Illness Chief Complaint: Substance Abuse Informant: patient Narrative Narrative: Patient is a 23-year-old female with past medical history of bipolar disorder as well as methamphetamine abuse. She was seen on June 02 for similar complaint and at that time worked up and discharged home. she presents today discussing potential admission for detox from methamphetamines. However despite her report of methamphetamine and alcohol abuse she refuses to answer questions regarding last use or how much of the alcohol or illicit drugs she does daily PFSH PFSH Medical History Hypertension Substance abuse History of bipolar disorder History of schizophrenia Schizo affective schizophrenia Bipolar 1 disorder Alcohol abuse PTSD (post-traumatic stress disorder) Depression Anxiety Home Medications ?Medication ?Instructions ?Recorded ?Last Taken ?Type albuterol sulfate 90 mcg/actuation 1 - 2 puff inhalation Q4H PRN Sob 12/04/17 Unknown History aerosol inhaler (Ventolin HFA) &/Or Wheezing albuterol sulfate 90 mcg/actuation 6.7 gm IH Q2H PRN PRN Wheezing ##1 07/01/18 Unknown Rx aerosol inhaler folic acid 1 mg tablet 1 mg PO DAILY 07/22/23 Unknown History losartan 50 mg tablet 50 mg PO DAILY 07/22/23 Unknown History pregabalin 100 mg capsule 100 mg PO TID 07/22/23 Unknown History albuterol sulfate 90 mcg/actuation 1 - 2 puff inhalation Q4H PRN PRN 11/05/23 Unknown Rx aerosol inhaler (Ventolin HFA) Wheezing ##1 famotidine 20 mg tablet 20 mg PO BID #60 tabs 11/07/23 Unknown Rx olanzapine 2.5 mg tablet 5 mg (2 x 2.5 mg) PO QHS #30 tabs 11/07/23 Unknown Rx ondansetron HCl 8 mg tablet 8 mg PO Q8H PRN PRN Nausea #42 tabs 11/07/23 Unknown Rx hydroxyzine HCl 50 mg tablet 50 mg PO Q8H PRN PRN anxiety 11/27/23 Unknown History metoprolol succinate 25 mg 25 mg PO BID 11/27/23 Unknown History tablet,extended release 24 hr omeprazole 40 mg capsule,delayed 40 mg PO DAILY 11/27/23 Unknown History release permethrin 5 % topical cream 1 applic topical Q14D 2 doses #60 05/05/24 Unknown Rx (Elimite) grams Allergy/AdvReac Type Severity Reaction Status Date / Time Penicillins (PCN) Allergy Hives Verified 06/02/24 12:58 pine nut Allergy Hives Verified 06/02/24 12:58 Social History Smoking Status: Current every day smoker tobacco type: cigarettes and e-cigarettes substance use type: methamphetamine ROS ROS ED Constitutional Constitutional ED: Denies chills or fever(s) Eyes Eyes: Denies change in vision ENT ENT ED: Denies sore throat Cardiovascular Cardiovascular: Denies chest pain Respiratory/Chest Respiratory/Chest: Denies cough or dyspnea Gastrointestinal Gastrointestinal: Denies abdominal pain, diarrhea, nausea or vomiting Genitourinary Genitourinary ED: Denies dysuria Musculoskeletal Musculoskeletal: Denies myalgias Integumentary Denies rash Neurologic Neurologic: Denies headache(s) Psychiatric Psychiatric: Denies suicidal ideation or suicidal thoughts Hematologic/Lymphatic Hematologic/Lymphatic: Denies easy bleeding or easy bruising EXAM Physical Exam Const Vital Signs: 06/13/24 04:58 Temperature 98.3 F Temperature Source Oral Pulse Rate 103 H Respiratory Rate 18 Blood Pressure 146/89 H Blood Pressure Mean 108 Pulse Ox 98 Oxygen Delivery Method Room Air Positive well nourished, well developed and obese General Appearance ED: well developed; Negative for pallor Nutritional Appearance: obese HEENT HEENT Narrative: Normocephalic atraumatic Eyes PERRL and EOMs intact bilaterally General Eye ED: Negative for scleral icterus Neck supple Resp normal respiratory effort and clear to auscultation bilaterally Cardio regular rhythm Rate: tachycardic and other Other Details: Slightly tachycardic rate with regular rhythm Extremity normal to inspection Neuro oriented x3, CN's II-XII intact bilaterally and no sensory deficits noted Sensorium / Orientation: alert Motor Exam: strength 5/5 throughout Psych Psych Narrative: No homicidal or suicidal ideation Skin no rashes or lesions noted General Skin Exam: Negative for jaundice or pallor MDM MDM MDM Narrative Medical decision making narrative: Patient arrived to the ER mildly hypertensive but overall stable vitals. She was requesting detox from methamphetamines. When she was informed that we do not detox from methamphetamines she states that she also uses alcohol. I began asking questions regarding her last alcohol use as well as how much alcohol she drinks on a daily basis. The patient is refusing to answer these questions. She states that why does not matter when I last drank or how much I drink. I informed her that I am trying to assess her risks for withdrawal symptoms and progression to delirium tremens which can be a life-threatening side effect of alcohol withdrawal. The patient continued to refuse to answer my questions and was constantly trying to change the narrative of the conversation. I also informed her that in order to fully assess her risk for alcohol withdrawal and life-threatening symptoms that blood work needs to be obtained. She did consent to blood work but 2 IV attempts failed and she would not allow any further blood work to be obtained. I informed the patient that without her answering my questions regarding last alcohol use and how much she drinks on a daily basis and the fact that she is now refusing further workup that she does not qualify for admission as we cannot treat her appropriately if we cannot assess her intake or confirm this with laboratory studies. The patient states that she does not want the inspector publications to take care of her. We informed her that she cannot stay in the ER simply waiting for shift change and as she is not able to answer my questions regarding her alcohol use/intake and we know from previous evaluations that she prefers methamphetamine that I feel she is malingering. The patient was informed that we will have no choice but to discharge her from the hospital if she cannot comply with questions and workup. She refused to continue to answer and therefore as patient is demonstrating malingering behavior and unwilling to comply with questioning or exam she will be discharged Discharge Plan Triage Chief Complaint: Substance Abuse ED Provider: Daniel Herrera Dx/Rx/DC Orders Clinical Impression: Methamphetamine abuse, Malingering, Bipolar disorder Instructions: Meth Abuse Addiction Prescriptions: No Action albuterol sulfate [Ventolin HFA] 90 MCG HFA aerosol inhaler 1 - 2 puff inhalation Q4H MDD S PRN (Reason: Sob &/Or Wheezing) albuterol sulfate 6.7 GM HFA aerosol inhaler 6.7 gm IH Q2H PRN PRN (Reason: Wheezing) Qty: 1 1RF losartan 50 mg tablet 50 mg PO DAILY folic acid 1 mg tablet 1 mg PO DAILY pregabalin 100 mg capsule 100 mg PO TID famotidine 20 mg Tablet 20 mg PO BID Qty: 60 0RF olanzapine 2.5 mg Tablet 5 mg PO QHS Qty: 30 0RF ondansetron HCl 8 mg Tablet 8 mg PO Q8H PRN PRN (Reason: Nausea) Qty: 42 0RF albuterol sulfate [Ventolin HFA] 90 mcg/actuation HFA aerosol inhaler 1 - 2 puff inhalation Q4H PRN PRN (Reason: Wheezing) Qty: 1 0RF hydroxyzine HCl 50 mg tablet 50 mg PO Q8H PRN PRN (Reason: anxiety) omeprazole 40 mg capsule,delayed release(DR/EC) 40 mg PO DAILY metoprolol succinate 25 mg tablet extended release 24 hr 25 mg PO BID permethrin [Elimite] 5 % cream 1 applic topical Q14D Qty: 60 0RF Rx Instructions: Apply topically from head to feet. Leave on for 8 to 12 hours then wash off. If symptoms persist after 14 days repeat the application. Primary Care Provider: Anthony Shepard Referrals: Anthony Shepard MD [Primary Care Provider] - Print Language: Lithuanian Disposition Disposition: Home, Self Care Discharge Date/Time: 06/13/24 05:34
--- NOTE | 2024-06-13 05:25 | NURSING ---
pt very evasive with questions,will not cooperate or answer this nurse or the doctor. When asking how much she drinks,pt was very evasive and then said she hasn't drank in two days. Pt states she hasn't been taken her meds,but I ought to. Pt argutive about which ones she should be taken and won't clarify. Pt states she doesn't want to go anywhere, but here for detox. Pt states she is abusing speed and then next sentence it is methanphetamines. Pt keeps moving when attempting to start IV.
--- NOTE | 2024-06-13 05:27 | ED.RN ---
Pt yelling at nurse and doctor in room. Security called by bilingual secretary. This nurse went and got HRO from desk. Pt not being cooperative with doctor or answering questions. Pt stating to doctor You do not even have a medical degree to be asking me these questions. Pt arguing with charge nurse, security and doctor. Complaing about answering questions and getting blood work. Pt refusing all care. Escorted out of department by security.
== END 2024-06-13 05:34 | disposition home or self-care (01) ==
LOC: ED 05:25
PROVIDERS: Emergency Provider Emergency Medicine; PCP Family Medicine; Visit Provider Emergency Medicine
DX: F15.10 Other stimulant abuse, uncomplicated (principal); F25.0 Schizoaffective disorder, bipolar type; Z68.41 Body mass index [BMI] 40.0-44.9, adult; F12.10 Cannabis abuse, uncomplicated; F17.210 Nicotine dependence, cigarettes, uncomplicated; F17.290 Nicotine dependence, other tobacco product, uncomplicated; F10.10 Alcohol abuse, uncomplicated; I10 Essential (primary) hypertension; Y90.0 Blood alcohol level of less than 20 mg/100 ml; E66.9 Obesity, unspecified; Z76.5 Malingerer [conscious simulation]; Z79.899 Other long term (current) drug therapy
CPT/HCPCS: A4216

== ENCOUNTER 2024-06-13 09:12 | Emergency (ER) | payer MEDICAID, SELFPAY ==
[2024-06-13 09:13] VITALS: BP 143/97; PULSE 105; RESP 16; TEMP 37; O2SAT 99; BMI 40.7
--- NOTE | 2024-06-13 09:28 | EX.ED.SAOD ---
HPI History of Present Illness Chief Complaint: Substance Abuse Detail of Chief Complaint: Requesting detox for alcohol abuse. Informant: patient Onset/Context/Timing Onset: Weeks Current Severity: Moderate Maximum Severity: Moderate Narrative Narrative: 23-year-old female history of alcohol abuse states she drinks excessively when she drinks she has not drank for a day and a half. Also does methamphetamines and smokes marijuana. Denies any IV drug abuse. Denies any recent hospitalization. She also has a history of bipolar, schizophrenia, PTSD depression and anxiety. She denies any recent illness. Prior similar symptoms: Yes Recent Illness/Hospitalization: No PFSH PFS Medical History Hypertension Substance abuse History of bipolar disorder History of schizophrenia Schizo affective schizophrenia Bipolar 1 disorder Alcohol abuse PTSD (post-traumatic stress disorder) Depression Anxiety Home Medications ?Medication ?Instructions ?Recorded ?Last Taken ?Type NK 06/13/24 Unknown History Allergy/AdvReac Type Severity Reaction Status Date / Time Penicillins (PCN) Allergy Hives Verified 06/02/24 12:58 pine nut Allergy Hives Verified 06/02/24 12:58 Social History Smoking Status: Current every day smoker tobacco type: cigarettes and e-cigarettes substance use type: methamphetamine ROS ROS ED ROS Narrative Recent diarrhea. Otherwise no vomiting or fever. Constitutional Constitutional ED: Denies chills or fever(s) Eyes Eyes: Denies blurry vision ENT ENT ED: Denies ear pain Cardiovascular Cardiovascular: Denies chest pain Respiratory/Chest Respiratory/Chest: Denies cough or dyspnea Gastrointestinal Gastrointestinal: Reports diarrhea; Denies abdominal pain, constipation, melena, nausea or vomiting Genitourinary Genitourinary ED: Denies dysuria Musculoskeletal Musculoskeletal: Denies arthralgias or back pain Integumentary Denies abscess Neurologic Neurologic: Denies headache(s) Psychiatric Psychiatric: Denies anxiety or depression Endocrine Endocrinology: Denies cold intolerance Hematologic/Lymphatic Hematologic/Lymphatic: Denies easy bleeding, easy bruising or lymphadenopathy Allergic/Immunologic Allergic/Immunologic ED: Denies mouth swelling, tongue swelling or urticaria EXAM Physical Exam Narrative Exam Narrative: 23-year-old female no acute distress. Sitting upright in bed. Vital signs are stable afebrile. No family with her. H EENT exam pupils round reactive light. Moist mucous membranes. Neck nontender no lymphadenopathy. Lungs clear to auscultation bilaterally. Heart regular rhythm no murmur. Rate about 100. Chest wall ribs nontender. Abdomen soft nontender. Moving all 4 extremities. Nontender no edema. Back nontender. Neurologically she is awake alert. Answering questions following commands. Const Vital Signs: 06/13/24 09:13 06/13/24 10:36 06/13/24 11:00 Temperature 98.6 F Temperature Source Oral Pulse Rate 105 H 81 85 Respiratory Rate 16 16 16 Blood Pressure 143/97 H 162/118 H 134/112 H Blood Pressure Mean 112 132 119 Pulse Ox 99 100 100 Oxygen Delivery Method Room Air Room Air Room Air Positive well nourished and well developed; Negative for cachectic, contractures or unkempt General Appearance ED: well developed and NAD; Negative for unkempt, cachectic, contractures or pallor Nutritional Appearance: Negative for cachectic HEENT Reports moist mucous membranes atraumatic; Negative for trauma or tenderness Eyes PERRL and EOMs intact bilaterally Neck no lymphadenopathy, supple and no JVD Lymph Lymphatic: no lymphadenopathy noted and lymphadenopathy Chest Wall inspection of chest normal and palpation of chest normal Resp normal respiratory effort and clear to auscultation bilaterally Effort and Inspection: Negative for retractions Auscultation: Negative for rales, rhonchi, wheezes or diminished lung sounds Cardio regular rate, regular rhythm, S1 normal heart sound, S2 normal heart sound and no murmurs GI soft to palpation, non-tender, non-distended and no masses Inspection: Negative for abdominal distention Palpation: Negative for tender or guarding Back/Spine no CVA tenderness General Back: Negative for CVA tenderness Cervical Spine: Negative for cervical spine tenderness Thoracic Spine / Upper Back: Negative for thoracic spinal tenderness Lumbar Spine / Lower Back: Negative for lumbar spinal tenderness Extremity General Extremety ED: Negative for edema or tenderness General Extremity: Negative for edema Neuro oriented x3 and CN's II-XII intact bilaterally Sensorium / Orientation: alert, oriented to person, oriented to place and oriented to time Motor Exam: strength 5/5 throughout Psych mental status grossly normal and thought process normal Appearance: Negative for unkempt Attitude: No belligerent, No agitated, No aggressive and No hostile Mood & Affect: Negative for depressed, anxious or tearful Skin General Skin Exam: Negative for jaundice or pallor Lesions: no lesions Rashes: no rashes Trauma: Negative for abrasion or laceration MDM MDM MDM Narrative Medical decision making narrative: 23-year-old female history of polysubstance abuse and mental health concerns. Wants to be admitted for detox. Exam is benign. Screening labs for detox. Once labs return I will speak to the hospitalist about admission. She has a benign exam. Patient's labs returned were unremarkable I was going into talk to her and she decided she did not want to stay for detox. And left without being discharged. Her labs are unremarkable. History & Record Review Discussion w/independent historian: Patient Additional record(s) reviewed:: Prior inpatient record, Prior outpatient record, Prior ED visit and Prior labs Lab Data Attestation: I reviewed the patient's lab results. Lab results narrative: CBC unremarkable. White count of 7. H&H 15 and 47. Platelets 312. Chemistry shows sodium 138. Gap 11. BUN 10 and creatinine 0.6. Glucose 103 Liver enzymes normal. Serum test negative. Alcohol negative. Labs: Laboratory Results - last 24 hr 06/13/24 09:50 WBC 7.4 RBC 4.90 Hgb 15.7 H Hct 47.4 H MCV 96.7 MCH 32.0 MCHC 33.1 RDW Std Deviation 47.9 H RDW Coeff of Jaden 13.5 Plt Count 312 MPV 10.6 Immature Gran % (Auto) 0.300 Neut % (Auto) 51.4 Lymph % (Auto) 38.9 Pettis % (Auto) 6.9 Eos % (Auto) 2.0 Baso % (Auto) 0.5 Absolute Neuts (auto) 3.8 Absolute Lymphs (auto) 2.86 Nucleated RBC % 0 Sodium 138 Potassium 4.7 Chloride 105 Carbon Dioxide 21.2 Anion Gap 11 BUN 10 Creatinine 0.62 L Estim Creat Clear Calc 149.75 Est GFR (MDRD) Non-Af 128 BUN/Creatinine Ratio 16.4 Glucose 103 H Calcium 9.0 Total Bilirubin 0.77 AST 22 ALT 9 Alkaline Phosphatase 92 Total Protein 7.6 Albumin 3.9 Globulin 3.7 Albumin/Globulin Ratio 1.0 Serum , Qual NEGATIVE Ethyl Alcohol < 10.1 Discharge Plan Triage Chief Complaint: Substance Abuse ED Provider: Tree Crowe Dx/Rx/DC Orders Prescriptions: No Action NK Primary Care Provider: Anthony Shepard Referrals: Anthony Shepard MD [Primary Care Provider] - Print Language: Belarusian
[2024-06-13 09:59] LABS: Absolute Lymphocyte Count 2.86 X10^3/uL (0.83-4.51); Absolute Neutrophil Count 3.8 X10^3/uL (2.0-7.7); Basophil# 0.04 X10^3/uL; Basophil% 0.5 % (0-1); Eosinophil# 0.15 X10^3/uL; Hematocrit 47.4 % (37-47); Hemoglobin 15.7 g/dL (12.0-15.0); Lymphocyte # 2.86 X10^3/ul (0.83-4.51); Lymphocyte % 38.9 % (19-41); Mean Corp Hgb Conc 33.1 g/dL (32-36); Mean Corpuscular Volume 96.7 fL (81-99); Mean Platelet Vol. 10.6 fl (6.2-12.0); Monocyte# 0.51 X10^3/uL; Monocyte% 6.9 % (0-10); NRBC Flagged by Analyzer 0 % (0-5); Neutrophil # 3.78 X10^3/uL (2.7-7.7); Neutrophil % 51.4 % (47-70); Platelet Count 312 K/mm3 (150-450); RBC Distribution Width CV 13.5 % (11.6-14.6); RBC Distribution Width SD 47.9 fl (35.1-43.9); White Blood Count 7.4 K/mm3 (4.4-11.0)
[2024-06-13 10:29] LABS: AST(SGOT) 22 U/L (<=31); Alanine Aminotransfer ALT/SGPT 9 U/L (<=34); Albumin, Serum 3.9 g/dL (3.5-5.0); Alcohol, Blood (Medical)-Serum < 10.1 mg/dL (<=10.0); Alkaline Phosphatase 92 U/L (35-104); Anion Gap 11 (5-15); BUN 10 mg/dL (4-19); BUN/Creat Ratio 16.4 RATIO (10-20); Carbon Dioxide 21.2 mmol/L (21.0-32.0); Chloride 105 mmol/L (98-108); Creatinine, Serum 0.62 mg/dL (0.70-1.20); EST Glomerular Filtration Rate 128 (>60); Estimated Creatinine Clearance 149.75 ml/min (50-250); Globulin 3.7 g/dL (2.2-4.2); Glucose 103 mg/dL (70-99); Potassium 4.7 mmol/L (3.3-5.1); Protein, Total 7.6 g/dL (5.9-8.4); Sodium Level 138 mmol/L (133-145); Total Bilirubin 0.77 mg/dL (0.00-1.30)
[2024-06-13 10:36] VITALS: BP 162/118; PULSE 81; RESP 16; O2SAT 100
[2024-06-13 10:39] LABS: Internal QC Validated? YES +Cl - CLEAR BKGD; Pregnancy, Serum, hCG Quali. NEGATIVE Negative
[2024-06-13 11:00] VITALS: BP 134/112; PULSE 85; RESP 16; O2SAT 100
--- NOTE | 2024-06-13 12:19 | CM.ED ---
Social work SW advised by rural mail contractor Pepper upon start of SW shift that patient had arrived back in [facility] ED after being discharged earlier in the morning. SW entered patient's room, introducing self and role at [facility]. Patient accepted SW visit and patient stated patient was struggling with repetitive thoughts. When SW tried to gather more information on these thoughts, patient began to giggle and laugh loudly. Patient stated being overstimulated and needing some space. Patient stated coming back to the [facility] ED later in the morning (patient had also presented about 0500 today and been discharged home) due to still requesting detox. Patient stated patient's apartment was locked and patient decided to come to [facility] ED instead, reporting alcohol use. Patient stated living with friends, though patient declined sharing the names with this SW. Patient was observed with tangential thinking and paranoia. Patient was still waiting for results of labwork, so SW left patient's room to gather resources for patient. While SW was gathering resources, patient reportedly eloped from [facility] ED. Due to mental health concerns but inability to complete full assessment yet, SW called Crisis (ph: [phone]) and spoke with Jay Jay. SW expressed concern for patient due to patient's initial desire for detox and some mental health concerns due to patient's statements of not taking medication for the last 2 months, racing thoughts, paranoia observed, etc. Jay Jay stated being grateful for the call and ability to pass this on to the rest of the Crisis team. CHRISTY also provided update to SW circuit breaker supervisor, ARNAUD Arrington. Yeni Lara, EQUIPMENT PLANNER, [employer]
== END 2024-06-13 11:41 | disposition left against medical advice (07) ==
PROVIDERS: Emergency Provider Emergency Medicine; PCP Family Medicine; Visit Provider Emergency Medicine
DX: F15.10 Other stimulant abuse, uncomplicated (principal); F25.0 Schizoaffective disorder, bipolar type; Z68.41 Body mass index [BMI] 40.0-44.9, adult; F12.10 Cannabis abuse, uncomplicated; F17.210 Nicotine dependence, cigarettes, uncomplicated; F17.290 Nicotine dependence, other tobacco product, uncomplicated; F10.10 Alcohol abuse, uncomplicated; I10 Essential (primary) hypertension; E66.9 Obesity, unspecified; Y90.0 Blood alcohol level of less than 20 mg/100 ml; Z76.5 Malingerer [conscious simulation]; Z79.899 Other long term (current) drug therapy
CPT/HCPCS: 80307; 80053; 82077; 84703; 85025; 99282; A4216

== ENCOUNTER 2024-07-14 02:02 | Emergency (ER) | payer MEDICAID, SELFPAY ==
[2024-07-14 02:02] VITALS: BP 139/91; PULSE 94; RESP 18; TEMP 37.2; O2SAT 95; BMI 43.8
[2024-07-14 04:02] VITALS: BP 137/80; PULSE 88; RESP 22; O2SAT 97
[2024-07-14 04:10] LABS: Absolute Lymphocyte Count 2.64 X10^3/uL (0.83-4.51); Absolute Neutrophil Count 7.4 X10^3/uL (2.0-7.7); Basophil# 0.04 X10^3/uL; Basophil% 0.4 % (0-1); Eosinophil# 0.31 X10^3/uL; Eosinophils% 2.8 % (0-5); Hematocrit 40.2 % (37-47); Hemoglobin 13.5 g/dL (12.0-15.0); Lymphocyte # 2.64 X10^3/ul (0.83-4.51); Mean Corp Hgb Conc 33.6 g/dL (32-36); Mean Corpuscular Hgb 31.8 pg (27.0-32.0); Mean Corpuscular Volume 94.6 fL (81-99); Monocyte# 0.65 X10^3/uL; Monocyte% 5.9 % (0-10); NRBC Flagged by Analyzer 0 % (0-5); Neutrophil # 7.35 X10^3/uL (2.7-7.7); Neutrophil % 66.7 % (47-70); Platelet Count 266 K/mm3 (150-450); RBC Distribution Width CV 13.3 % (11.6-14.6); RBC Distribution Width SD 46.4 fl (35.1-43.9); Red Blood Count 4.25 M/mm3 (4.2-5.4)
--- NOTE | 2024-07-14 04:15 | RAD_ITS ---
PROCEDURE: CHEST PA AND LATERAL 07/14/2024 REASON FOR EXAM: COUGH TECHNIQUE: Frontal and lateral views of the chest. COMPARISON: 12/06/2023, 07/19/2023 and 12/10/2018 FINDINGS: The lungs are clear. No pleural effusion. The cardiac and mediastinal contours appear unchanged. The visualized osseous structures appear within limits. RAD/Chest PA and Lateral IMPRESSION: No evidence of acute disease. Reading Location: [id number]
[2024-07-14 04:30] LABS: Internal QC Validated? YES +Cl - CLEAR BKGD; Pregnancy, Serum, hCG Quali. NEGATIVE Negative
[2024-07-14 04:41] LABS: Anion Gap 13 (5-15); BUN 11 mg/dL (4-19); BUN/Creat Ratio 17.9 RATIO (10-20); Calcium,Total 9.3 mg/dL (7.6-11.0); Carbon Dioxide 23.1 mmol/L (21.0-32.0); Chloride 108 mmol/L (98-108); Creatinine, Serum 0.59 mg/dL (0.70-1.20); EST Glomerular Filtration Rate 129 (>60); Estimated Creatinine Clearance 164.24 ml/min (50-250); Glucose 84 mg/dL (70-99); Potassium 3.8 mmol/L (3.3-5.1); Sodium Level 144 mmol/L (133-145)
[2024-07-14 05:34] LABS: Alcohol, Blood (Medical)-Serum 21.7 mg/dL (<=10.0)
[2024-07-14 06:27] LABS: Bacteria 0 SEEN /hpf (None Seen); Mucous, Urine 0 SEEN /hpf (<or=2+)
[2024-07-14 06:52] LABS: Color, Urine Yellow (Yellow); Glucose, Dipstick Normal (Normal); Ketone-Dipstick Negative (Negative); Leukocyte Esterase-Dipstick Negative /ul (Negative); Nitrite-Dipstick Negative (Negative); Occult Blood-Urine 150 /ul (Negative); Protein-Dipstick 30 mg/dl (Negative); Urine Bilirubin Dipstick Negative (Negative); Urine Clarity Clear (Clear); Urine Urobilinogen Normal (Normal)
[2024-07-14 07:04] LABS: Amphetamine Urine PRESUMPTIVE POSITIVE (<1000 ng/mL); Barbiturate Urine NEGATIVE (< 200 ng/mL); Benzodiazepine Urine NEGATIVE (< 200 ng/mL); Buprenorphine Urine NEGATIVE (< 200 ng/mL); Cocaine Urine NEGATIVE (< 300 ng/mL); Fentanyl, Urine NEGATIVE; Methadone Urine NEGATIVE (< 300 ng/mL); Opiates Urine NEGATIVE (< 300 ng/mL); Oxycodone, Urine NEGATIVE (< 100 ng/mL); PCP Urine NEGATIVE (< 25 ng/mL); THC Urine PRESUMPTIVE POSITIVE (< 50 ng/mL)
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
[2024-07-14 07:37] LABS: Red Blood Cells-Urine 25-50 SEEN /hpf (0-5); Squamous Epithelial Cells - UA 0-5 SEEN /hpf (5-10); White Blood Cells 0-5 SEEN /hpf (0-5)
== END 2024-07-14 08:21 | disposition left against medical advice (07) ==
PROVIDERS: Emergency Provider Emergency Medicine; Visit Provider Emergency Medicine
DX: F10.10 Alcohol abuse, uncomplicated (principal); F15.10 Other stimulant abuse, uncomplicated; F31.9 Bipolar disorder, unspecified; Z68.41 Body mass index [BMI] 40.0-44.9, adult; I10 Essential (primary) hypertension; Y90.1 Blood alcohol level of 20-39 mg/100 ml; J06.9 Acute upper respiratory infection, unspecified; E66.9 Obesity, unspecified; Z79.899 Other long term (current) drug therapy; Z87.891 Personal history of nicotine dependence
CPT/HCPCS: 71046; 80048; 80307; 81001; 82077; 84703; 85025; 99282; 99284

== ENCOUNTER 2024-07-14 22:58 | Emergency (ER) | payer MEDICAID, SELFPAY ==
[2024-07-14 23:00] VITALS: BP 140/103; PULSE 117; RESP 20; TEMP 36.8; O2SAT 97; BMI 43.9
--- NOTE | 2024-07-14 23:27 | EX.ED.DYSGE1 ---
HPI History of Present Illness Chief Complaint: Shortness of Breath Informant: patient Narrative Narrative: Patient is a 23-year-old female with past medical history of methamphetamine abuse and tobacco use. She was seen this morning secondary to multiple days of nasal congestion cough and shortness of breath feeling. At that time a chest x-ray was obtained which revealed no acute infiltrate or lung pathology. The patient states that her cough and congestion have persisted and she is unsure of how to treat it and secondary to this presents for evaluation [facility] Medical History Hypertension Substance abuse History of bipolar disorder History of schizophrenia Schizo affective schizophrenia Bipolar 1 disorder Alcohol abuse PTSD (post-traumatic stress disorder) Depression Anxiety Home Medications ?Medication ?Instructions ?Recorded ?Last Taken ?Type albuterol sulfate 90 mcg/actuation 2 puff inhalation Q6H PRN PRN 07/14/24 Unknown History aerosol inhaler wheezing cyclobenzaprine 5 mg tablet 5 mg PO Q8H 07/14/24 Unknown History famotidine 40 mg tablet 40 mg PO DAILY 07/14/24 Unknown History fluticasone propionate 45 2 inh inhalation Q12H 07/14/24 Unknown History mcg-salmeterol 21 mcg/actuation HFA inhaler (Advair HFA) folic acid 1 mg tablet 1 mg PO DAILY 07/14/24 Unknown History hydroxyzine pamoate 25 mg capsule 50 mg PO Q8H PRN PRN anxiety 07/14/24 Unknown History losartan 50 mg tablet 50 mg PO DAILY 07/14/24 Unknown History magnesium citrate 296 ml PO X1 07/14/24 Unknown History methocarbamol 750 mg tablet 750 mg PO Q6H PRN 07/14/24 Unknown History metoprolol succinate 25 mg 25 mg PO BID 07/14/24 Unknown History tablet,extended release 24 hr multivitamin 1 tab PO DAILY 07/14/24 Unknown History nicotine 7 mg/24 hr daily 1 patch transdermal DAILY 07/14/24 Unknown History transdermal patch olanzapine 5 mg tablet 5 mg PO QHS 07/14/24 Unknown History omeprazole 20 mg capsule,delayed 20 mg PO DAILY 07/14/24 Unknown History release thiamine HCl (vitamin B1) 100 mg 100 mg PO DAILY 07/14/24 Unknown History tablet (Vitamin B-1) vitamin B complex-folic acid 0.4 1 tab PO DAILY 07/14/24 Unknown History mg tablet (B Complex 1 (with folic acid)) Allergy/AdvReac Type Severity Reaction Status Date / Time Penicillins (PCN) Allergy Hives Verified 07/14/24 23:03 pine nut Allergy Hives Verified 07/14/24 23:03 Social History Smoking Status: Former smoker substance use type: methamphetamine ROS ROS ED Constitutional Constitutional ED: Denies chills or fever(s) ENT ENT ED: Reports rhinorrhea and sore throat Cardiovascular Cardiovascular: Denies chest pain Respiratory/Chest Respiratory/Chest: Reports cough and dyspnea Gastrointestinal Gastrointestinal: Denies abdominal pain, diarrhea, nausea or vomiting Genitourinary Genitourinary ED: Denies dysuria Musculoskeletal Musculoskeletal: Reports myalgias Integumentary Denies rash Neurologic Neurologic: Denies headache(s) Hematologic/Lymphatic Hematologic/Lymphatic: Denies easy bleeding or easy bruising Allergic/Immunologic Allergic/Immunologic ED: Denies mouth swelling or tongue swelling EXAM Physical Exam Const Vital Signs: 07/14/24 23:00 07/14/24 23:09 07/14/24 23:36 Temperature 98.2 F 97.8 F Temperature Source Oral Pulse Rate 117 H 96 Respiratory Rate 20 H 16 Respiratory Effort Normal Blood Pressure 140/103 H 128/76 H Blood Pressure Mean 115 93 Pulse Ox 97 99 Oxygen Delivery Method Room Air Positive well nourished, well developed and obese General Appearance ED: well developed; Negative for pallor Nutritional Appearance: obese HEENT HEENT Narrative: Bilateral TMs are retracted but show no secondary findings to suggest infection Nasal mucosa is hyperemic and boggy with enlarged inferior nasal turbinate There is cobblestoning in the posterior pharynx consistent with sinus drainage without airway edema or compromise No secondary findings in the posterior pharynx to suggest infection Eyes PERRL and EOMs intact bilaterally General Eye ED: Negative for scleral icterus Neck supple and no JVD Resp normal respiratory effort Resp Narrative: Breath sounds are diminished throughout with faint diffuse expiratory wheeze No nasal flaring retractions tachypnea or accessory muscle use No dyspnea with speech Cardio regular rate and regular rhythm Extremity normal to inspection Extremity Narrative: No asymmetric edema no pitting edema negative Homans' sign bilaterally Neuro oriented x3, CN's II-XII intact bilaterally and no sensory deficits noted Sensorium / Orientation: alert Motor Exam: strength 5/5 throughout Psych mental status grossly normal Skin no rashes or lesions noted and no wounds General Skin Exam: Negative for jaundice or pallor MDM MDM MDM Narrative Medical decision making narrative: Patient arrived to the ER in no acute respiratory distress. She was seen earlier this morning and had a chest x-ray which revealed no acute lung pathology. Her history and exam is consistent with a viral upper respiratory tract infection. This could be secondary to COVID influenza or RSV. However as she is not hypoxic or in respiratory distress the specific virus causing infection would not change therapy so I do not feel the need to check a viral swab. Also without respiratory distress or hypoxia or derangement to vital such as high fever concern for missed pneumonia from earlier this morning is low and I do not feel the need for repeat x-ray. Therefore patient will be given symptomatic medications and is otherwise safe for discharge Of note the patient does have an outstanding warrant and therefore the police were notified and they did come to the hospital and will take her to care home History & Record Review Discussion w/independent historian: Patient Discharge Plan Triage Chief Complaint: Shortness of Breath ED Provider: Daniel Herrera Dx/Rx/DC Orders Clinical Impression: Viral upper respiratory tract infection with cough, Methamphetamine abuse, Bipolar disorder Instructions: ED URI, Viral W/ Wheezing (Adult) Prescriptions: No Action losartan 50 mg tablet 50 mg PO DAILY famotidine 40 mg tablet 40 mg PO DAILY methocarbamol 750 mg tablet 750 mg PO Q6H PRN metoprolol succinate 25 mg tablet extended release 24 hr 25 mg PO BID albuterol sulfate 90 mcg/actuation HFA aerosol inhaler 2 puff inhalation Q6H PRN PRN (Reason: wheezing) cyclobenzaprine 5 mg tablet 5 mg PO Q8H fluticasone propion-salmeterol [Advair HFA] 45-21 mcg/actuation HFA aerosol inhaler 2 inh inhalation Q12H multivitamin Tablet 1 tab PO DAILY olanzapine 5 mg tablet 5 mg PO QHS omeprazole 20 mg capsule,delayed release(DR/EC) 20 mg PO DAILY magnesium citrate Solution 296 ml PO X1 folic acid 1 mg tablet 1 mg PO DAILY nicotine 7 mg/24 hr patch 24 hour 1 patch transdermal DAILY hydroxyzine pamoate 25 mg capsule 50 mg PO Q8H PRN PRN (Reason: anxiety) thiamine HCl (vitamin B1) [Vitamin B-1] 100 mg tablet 100 mg PO DAILY vitamin B complex-folic acid [B Complex 1 (with folic acid)] 0.4 mg tablet 1 tab PO DAILY Primary Care Provider: Care Physician,No Primary Referrals: Care Physician,No Primary [Primary Care Provider] - Activity Restrictions/Additional Instructions: Your x-ray from earlier today confirmed you do not have pneumonia. Your exam and symptoms are consistent with a viral upper respiratory tract infection which will take on average 18 to 21 days to resolve. Use your inhaler to help with shortness of breath/wheeze. Use medications such as Delsym or Robitussin to help with cough and Sudafed for decongestion. Return to the ER should you have any further concerns Patient however is not in respiratory distress or requiring oxygen or showing signs of sepsis and is medically cleared for placement in police custody/care home Print Language: Mohawk Disposition Disposition: Home, Self Care Discharge Date/Time: 07/14/24 23:37
[2024-07-14] MEDS: guaiFENesin/Codeine 5 ML UDC 10 ML PO (23:33)
[2024-07-14] MEDS: Albuterol Sulfate 8 gm Inhaler (60 puffs) 2 PUFF INHALATION (23:33)
[2024-07-14] MEDS: dexAMETHasone 10 MG/ML Vial PO.IVFORM (23:33)
[2024-07-14 23:36] VITALS: BP 128/76; PULSE 96; RESP 16; TEMP 36.6; O2SAT 99
== END 2024-07-14 23:37 ==
PROVIDERS: Emergency Provider Emergency Medicine; Visit Provider Emergency Medicine
DX: J06.9 Acute upper respiratory infection, unspecified (principal); F15.10 Other stimulant abuse, uncomplicated; F31.9 Bipolar disorder, unspecified; Z68.41 Body mass index [BMI] 40.0-44.9, adult; E66.9 Obesity, unspecified; Z87.891 Personal history of nicotine dependence

== ENCOUNTER 2024-08-03 19:35 | Emergency (ER) | payer MEDICAID, SELFPAY ==
[2024-08-03 19:36] VITALS: BP 138/94; PULSE 104; RESP 18; TEMP 36.9; O2SAT 100; BMI 42.9
--- NOTE | 2024-08-03 20:56 | EKG12_ITS ---
Test Reason : Blood Pressure : */* mmHG Vent. Rate : 80 BPM Atrial Rate : 80 BPM P-R Int : 150 ms QRS Dur : 84 ms QT Int : 372 ms P-R-T Axes : -6 25 9 degrees QTcB Int : 429 ms Normal sinus rhythm Normal ECG Confirmed by Christian Tucker ([id number]), sound editor DEB CAMPOS ([id number]) on 08/06/2024 11:37:08 AM Referred By: Confirmed By: Christian Tucker
--- OUTSIDE RECORDS SUMMARY | 2024-08-03 21:14 | XMS RPT_ITS | CCD ---
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, [facility] Primary Car e Provider MD Geovany Stanton Emergency Provider [phone] Doctor, ED Emergency Provider Unavailable AA NO PCP, NO PCP Primary Care Unavailable HELLER DO~[id number], RAYO Walters Admit ting Unavailable HELLER DO~[id number], RAYO Walters Atten ding Unavailable JAS MONTANA Primary Care Unavailable POLLOCK DO~[id number], POLLOCK LATOSHA A Admitting Unavailable GONZALEZ DO~[id number], GONZALEZ MADIHA A Attendin g Unavailable TIFFANY MONTANA Primary Care Unavailable GODMAN DO~[id number], GODMAN TODD A Admitting Unavailable GODMAN DO~[id number], GODMAN TODD A Attending Unavailable ADRIENNE AZAR~[id number], ADRIENNE Walters Admitting Unavailable ADRIENNE AZAR~[id number], ADRIENNE Walters Attending Unavailable AA NO PCP, NO PCP Primary Care Unavailable JAS MONTANA Primary Care Unavailable GODMAN DO~[id number], GODMAN TODD A Admitting Unavailable GODMAN DO~[id number], GODMAN TODD A Attending Unavailable AA NO PCP, NO PCP Primary Care Unavailable ADRIENNE AZAR~[id number], ADRIENNE Walters Admitting Unavailable ADRIENNE AZAR~[id number], ADRIENNE Walters Attending Unavailable Doctor, ED Attending Unavailable [facility] Primary Car e Unavailable Zachary Armenta Attending Unavailable [facility], [facility] Primary Car e Unavailable Anthony Booth Primary Care Provider LEOBARDOANTHONYOY Primary Care Unavailabl e DANNY TRAN Attending Unavailable LEOBARDO, ANTHONY LAN Primary Care Unavailabl EASTON Calles Admitting Unavailable LUKAS YOO Attending Unavailable DELILAH RAI Consulting Unavailable LEOBARDO, ANTHONY LAN Primary Care Unavailabl e LEOBARDO, ANTHONYRAULITO LAN Primary Care Unavailabl e SONNY SCHULER, CHRALY BREEN Attending Reagan CALDERON MD, DR MARIXA Nelson Primary Care Physician Briana CALDERON MD, DR MARIXA Nelson Primary Care Unavailable ANAMARIA AZAR, DR WEINER Attending Unavailtorito MCGEE MD, SKIP Attending Unavailable KVNG AZAR, DR MARIXA Nelson Primary Care Unavailable Leobardo AZAR, Dr. Cruz Primary Care Provider Dr. Maxx Lopez DO Emergency Provider Chris MARCUM, Dr. Roy Admit Provider Dr. Kirill Perez DO Other Provider Dr. Easton Pugh MD Attending Provider Dr. Easton Pugh MD Other Provider Rickie Rayo MD Attending Provider Rickie Rayo MD Emergency Provider Dr. Filippo Fuentes MD Emergency Provider Dr. Amari Nicholas DO Emergency Provider Dr. Daniel Herrera DO Emergency Provider Dr. Anthony Booth MD Primary Care Provider Dr. Filippo Fuentes MD Attending Provider Dr. Amari Nicholas DO Attending Provider Dr. Daniel Herrera DO Attending Provider Provider, Ed Physician Emergency Provider Nancie carrington Provider, Ed Physician Attending Provider Nancie Crowe MD, Dr. Leavitt Attending Provider Sebastien AZAR, Dr. Leavitt Emergency Provider Dr. Bharat Pinedo DO Emergency Provider [phone] Care Physician, No Primary Primary Care Provider Unavailable LUIS KATHLEEN Attending Unavailable LEOBARDO, ANTHONY Primary Care Unavailable BILLIE SPEARS Attending Unavailable LEOBARDO, ANTHONY Primary Care Unavailable Leobardo, Anthony Primary Care Unavailable Rickie Rayo Attending Unavailable MostKirill andrews Admitting Unavailable Easton Pugh Attending Unavailable Mosteller, Kirill Consulting Unavailable Leobardo, Anthony Primary Care Unavailable Care Physician, No Primary Primary Care Unava ilable Bharat Pinedo Attending Unavailable Leobardo, Anthony Primary Care Unavailable Amari Nicholas Attending Unavailable Leobardo, Anthony Primary Care Unavailable Daphnie Aparicio Consulting Unavailable Daphnie Aparicio Admitting Unavailable Drea Verma Attending Unavailable [place] ENGINE MANAGER, Tiffany Primary Care Unavailable Ungur, Remus Attending Unavailable Deep Villatoro Attending Unavailable Leobardo, Anthony Primary Care Unavailable Leobardo, Anthony Primary Care Unavailable Ungur, Remus Attending Unavailable Care Physician, No Primary Primary Care Unava ilable Daniel Herrera Attending Unavailable Leobardo, Anthony Primary Care Unavailable Provider, Ed Physician Attending Unavailab le Provider, Ed Physician Attending Unavailab le Leobardo, Anthony Primary Care Unavailable Provider, Ed Physician Attending Unavailab jackson [place] ENGINE MANAGER, Tiffany Primary Care Unavailable Leobardo, Anthony Primary Care Unavailable Tree Crowe Attending Unavailable Leobardo, Anthony Primary Care Unavailable Bry Bravo Attending Unavailable Leobardo, Anthony Primary Care Unavailable Filippo Fuentes Attending Unavailable Mostdarryl Kirill Consulting Unavailable Easton Pugh Attending Unavailable Mostdarryl, Kirill Admitting Unavailable Leobardo, Anthony Primary Care Unavailable Bess Pughs F Consulting Unavailable Daphnie Aparicio Attending Unavailable Leobardo, Anthony Primary Care Unavailable Leobardo, Anthony Primary Care Unavailable Daniel Herrera Attending Unavailable Leobardo, Anthony Primary Care Unavailable Daniel Herrera Attending Unavailable Leobardo, Anthony Primary Care Unavailable Miek Fuenteso Attending Unavailable Aparicio, Daphnie Consulting Unavailable Aparicio, Daphnie Admitting Unavailable Drea Verma Attending Unavailable Drea Verma Consulting Unavailable Kirill Perez Attending Unavailable Anthony Booth Primary Care Unavailable Daniel Herrera Attending Unavailable Allergies Allergy Classification Reported Allergen(s) Allergy Type Date of Onset Reaction(s) Facility (20 sources) Penicillins; Translations: [PENICILLINS] Drug Allergy 3 [facility] (1 source) Penicillin Drug Allergy [facility] Repository (2 sources) Penicillins Drug allergy (disorder) 4 [facility] ([place]) Repository (1 source) Penicillins Propensity to adverse reactions 3 [facility] (2 sources) Penicillin; Translations: [penicillins] Drug Allergy [facility] (7 sources) Penicillins Allergy to substance 5 [facility] (7 sources) Lugoff nut Allergy to substance 5 [facility] (2 sources) Penicillin G Drug Allergy 4 [facility] (2 sources) pine bark extract Drug Allergy 4 [facility] Work Phone: (1 source) Lugoff nut Drug allergy (disorder) 5 [facility] Repository Medications Current Medications Medication Drug Class(es) Dates Sig (Normalized) Sig (Original) [id number] 200 actuat albuterol 0.09 mg/actuat metered dose inhaler (20 sources) beta2-Adrenergic Agonist Start: 07-14-2024 Albuterol Sulfate 90 mcg/actuation HFA aerosol inhaler Active 2 NMA INHALATION EVERY 6 HOURS NEEDED as needed for wheezing July 14, 2024 12:00am Start: 11-05-2023 End: 06-13-2024 Albuterol Sulfate (Ventolin Hfa) 90 mcg/actuation HFA aerosol inhaler Discontinued 1 - 2 NMA INHALATION EVERY 4 HOURS NEEDED as needed for Wheezing November 05, 2023 12:00am June 13, 2024 10:07am Start: 10-24-2023 End: 12-12-2023 albuterol (2.5 MG/3ML) 0.083 % nebulizer solution Take 3 mL (2.5 mg) by nebulization every 6 hours as needed for wheezing. 120 mL 12/13/2023 Active Start: 10-24-2023 End: 07-09-2024 take 2 puff(s) by inhalation every six hours as needed for wheezing albuterol 108 (90 Base) MCG/ACT inhaler Inhale 2 puffs every 6 hours as needed for wheezing. 18 g 12/13/2023 07/09/2024 Discontinued (Reorder) Start: 08-28-2023 take 2 puff(s) by in halation every [...] Wheezing/Shortness of Breath. 0 12/12/2018 Active Start: 07-01-2018 End: 06-13-2024 Albuterol Sulfate 6.7 GM HFA aerosol inhaler Discontinued 6.7 g IH EVERY 2 HOURS NEEDED as needed for Wheezing July 01, 2018 11:39pm June 13, 2024 10:07am Start: 07-01-2018 Albuterol Sulf ate 6.7 GM HFA aerosol inhaler Active 6.7 g IH EVERY 2 HOURS NEEDED as needed for Wheezing July 01, 2018 11:39pm Start: 12-04-2017 End: 06-13-2024 Albuterol Sulfate (Ventolin Hfa) 90 MCG HFA aerosol inhaler Discontinued 1 - 2 NMA INHALATION Q4H as needed for Sob &/Or Wheezing December 04, 2017 12:00am June 13, 2024 10:07am Start: 12-04-2017 Albuterol Sulf ate (Ventolin Hfa) 90 MCG HFA aerosol inhaler Active 1 - 2 NMA INHALATION Q4H as needed for Sob &/Or Wheezing December 04, 2017 12:00am Start: 03-17-2015 albuterol Inha lation Soln 2.5 [...] take 1 capsule by mouth once daily amphetamine-dextro amphetamine XR (ADDERALL XR) 20 mg 24 hr capsule Take 1 capsule by mouth once daily. 0 12/12/2018 Active cyclobenzaprine hydrochloride 5 mg oral tablet (2 sources) Muscle Relaxant Start: 07-14-2024 take 1 tablet by mouth every eight hours Cyclobenzaprine 5 mg tablet Active 5 mg PO Q8H July 14, 2024 12:00am 12 hr dextromethorphan hydrobromide 30 mg / guaiFENesin 600 mg extended release oral tablet (1 source) Uncompetitive T-uxgwxk-S-aspartat e Receptor Antagonist, Sigma-1 Agonist Start: 01-17-2019 take 1 tablet by mouth twice daily dextromethorphan-g uaiFENesin (MUCINEX DM) 30-600 mg per tablet Indications: LRTI (lower respiratory tract infection) Take 1 tablet by mouth twice daily. 30 tablet 0 01/17/2019 Active dicyclomine hydrochloride 20 mg oral tablet (1 source) Anticholinergic Start: 06-15-2024 dicyclomine (Bentyl) 20 MG tablet 06/15/2024 Active docusate sodium 100 mg oral capsule (1 source) Start: 06-22-2024 docusate sodium (Colace) 100 MG capsule 06/22/2024 Active escitalopram 10 mg oral tablet (1 source) Serotonin Reuptake Inhibitor Start: 12-12-2018 take 1 tablet by mouth once daily escitalopram oxalate (LEXAPRO) 10 mg tablet Take 1 tablet by mouth once daily. 0 12/12/2018 Active famotidine 40 mg oral tablet (13 sources) Histamine-2 Receptor Antagonist Start: 07-14-2024 take 1 tablet by mouth once daily Famotidine 40 mg tablet Active 40 mg PO DAILY July 14, 2024 12:00am Start: 06-22-2024 famotidine (Pe pcid) 40 MG tablet 06/22/2024 Active Start: 11-07-2023 End: 06-13-2024 take 1 tablet by mouth twice daily Famotidine 20 mg Tablet Discontinued 20 mg PO TWICE A DAY 60 November 07, 2023 12:00am June 13, 2024 10:08am fexofenadine hydrochloride 180 mg oral tablet (1 source) Histamine-1 Receptor Antagonist Start: 07-09-2024 End: 07-09-2025 take 1 tablet by mouth once daily as needed fexofenadine (Ann-Marie) 180 MG tablet Indications: Seasonal allergies Take 1 tablet (180 mg) by mouth Daily as needed (allergies). 30 tablet 5 07/09/2024 07/09/2025 Active 120 actuat fluticasone propionate 0.11 mg/actuat metered dose inhaler (1 source) Corticosteroid Start: 12-12-2018 take 2 puff(s) by inhalation twice daily fluticasone (FLOVENT) 110 mcg/actuation inhaler Inhale 2 Puffs as instructed twice daily. 0 12/12/2018 Active Fluticasone Propion-Salmeterol (3 sources) Corticosteroid, beta2-Adrenergic Agonist Start: 07-14-2024 Fluticasone Propion-Salmetero l (Advair Hfa) 45-21 mcg/actuation HFA aerosol inhaler Active 2 NMA INHALATION Q12H July 14, 2024 12:00am Start: 06-22-2024 Advair HFA 45- 21 MCG/ACT inhaler 06/22/2024 Active folic acid 1 mg oral tablet (20 sources) Start: 07-14-2024 take 1 tablet by mouth once daily Folic Acid 1 mg tablet Active 1 mg PO DAILY July 14, 2024 12:00am Start: 07-22-2023 End: 06-13-2024 take 1 tablet by mouth once daily Folic Acid 1 mg tablet Discontinued 1 mg PO DAILY July 22, 2023 12:00am June 13, 2024 10:08am Start: 03-21-2023 End: 07-10-2023 take 1 tablet by mouth once daily folic acid (Folvite) 1 MG tablet Take 1 tablet (1 mg) by mouth daily. 30 tablet 2 03/21/2023 Active hydrOXYzine pamoate 25 mg oral capsule (20 sources) Antihistamine Start: 07-14-2024 Hydroxyzine Pa moate 25 mg capsule Active 50 mg PO EVERY 8 HOURS NEEDED as needed for anxiety July 14, 2024 12:00am Start: 07-09-2024 take 2 capsules by m outh every eight hours as needed for anxiety and anxiety and anxiety hydrOXYzine pamoate (Vistaril) 25 MG capsule Indications: Anxiety Take 2 capsules (50 mg) by mouth every 8 hours as needed for anxiety. 90 capsule 07/09/2024 Active Start: 06-26-2024 End: 07-09-2024 hydrOXYzine pamoate (Vistari l) 25 MG capsule 06/26/2024 07/09/2024 Discontinued (Reorder) Start: 10-24-2023 End: 07-09-2024 take 1 tablet by mouth every eight hours as needed for anxiety Hydroxyzine Hcl 50 mg tablet Discontinued 50 mg PO EVERY 8 HOURS NEEDED as needed for anxiety November 27, 2023 12:00am June 13, 2024 10:08am Start: 09-16-2023 End: 11-05-2023 take 1 tablet by mouth three times daily as needed Hydroxyzine Hcl 25 mg tablet Discontinued 25 mg PO THREE TIMES A DAY as needed for itching September 16, 2023 12:00am November 05, 2023 5:59pm Start: 07-20-2023 End: 11-05-2023 take 1 capsule by mouth twice daily as needed for anxiety Hydroxyzine Pamoate (Vistaril) 25 mg capsule Discontinued 25 mg PO TWICE A DAY as needed for anxiety July 20, 2023 12:00am November 05, 2023 5:59pm lactulose 667 mg/ml oral solution (1 source) Osmotic Laxative Start: 03-22-2004 LACTULOSE 10 GM/15 ML SYRUP Indications: Constipation 1 oz a day 1 month 5 03/22/2004 Active losartan potassium 50 mg oral tablet (20 sources) Angiotensin 2 Receptor Arpit Start: 07-14-2024 take 1 tablet by mouth once daily Losartan 50 mg tablet Active 50 mg PO DAILY July 14, 2024 12:00am Start: 07-22-2023 End: 07-09-2024 take 1 tablet by mouth once daily Losartan 50 mg tablet Discontinued 50 mg PO DAILY July 22, 2023 12:00am June 13, 2024 10:08am Start: 03-21-2023 End: 07-11-2023 take 1 tablet by mouth once daily losartan (Cozaar) 50 MG tablet Take 1 tablet (50 mg) by mouth daily. 30 tablet 2 03/21/2023 Active magnesium citrate 58.2 mg/ml oral solution (3 sources) Start: 07-14-2024 take 1 mL by mouth once Magnesium Citrate solution Active 296 mL PO ONE TIME July 14, 2024 12:00am Start: 06-29-2024 GoodSense Magn esium Citrate oral solution 06/29/2024 Active melatonin 10 mg oral capsule (1 source) Start: 01-30-2024 Melatonin 10 M G capsule 01/30/2024 Active methocarbamol 750 mg oral tablet (3 sources) Muscle Relaxant Start: 07-14-2024 take 1 tablet by mouth every six hours as needed Methocarbamol 750 mg tablet Active 750 mg PO EVERY 6 HOURS NEEDED July 14, 2024 12:00am Start: 04-17-2024 End: 07-09-2024 methocarbamol (Robaxin) 750 MG tablet 04/17/2024 07/09/2024 Discontinued 24 hr metoprolol succinate 25 mg extended release oral tablet (20 sources) beta-Adrenergic Arpit Start: 07-14-2024 take 1 tablet by mouth twice daily Metoprolol Succinate 25 mg tablet extended release 24 hr Active 25 mg PO TWICE A DAY July 14, 2024 12:00am Start: 10-24-2023 End: 06-13-2024 take 1 tablet by mouth twice daily Metoprolol Succinate 25 mg tablet extended release 24 hr Discontinued 25 mg PO TWICE A DAY November 27, 2023 12:00am June 13, 2024 10:08am Start: 08-28-2023 take 1 tablet by sonia th twice [...] po x's one now 0 04/21/2004 Active Multiple Vitamin (Multivitamin) tablet (1 source) Start: 06-22-2024 Multiple Vitam in (Multivitamin) tablet 06/22/2024 Active Multivitamin tablet (2 sources) Start: 07-14-2024 Multivitamin t ablet Active 1 {tbl} PO DAILY July 14, 2024 12:00am 24 hr nicotine 0.292 mg/hr transdermal system (3 sources) Cholinergic Nicotinic Agonist Start: 07-14-2024 Nicotine 7 mg/24 hr patch 24 hour Active 1 NMA TD DAILY July 14, 2024 12:00am Start: 06-22-2024 End: 07-09-2024 nicotine (Nicoderm, Step 3) 7 MG/24HR patch 06/22/2024 07/09/2024 Discontinued OLANZapine 5 mg oral tablet (12 sources) Atypical Antipsychotic Start: 07-14-2024 take 1 tablet by mouth at bedtime Olanzapine 5 mg tablet Active 5 mg PO AT BEDTIME July 14, 2024 12:00am Start: 02-02-2024 take 1 tablet by sonia th once daily at bedtime OLANZapine (ZyPREXA) 20 MG tablet TAKE 1 TABLET BY MOUTH ONCE DAILY AT NIGHT AT BEDTIME 02/02/2024 Active Start: 11-07-2023 End: 06-13-2024 take 2 tablets by mouth at bedtime Olanzapine 2.5 mg Tablet Discontinued 5 mg PO AT BEDTIME November 07, 2023 12:00am June 13, 2024 10:08am omeprazole 20 mg delayed release oral capsule (10 sources) Proton Pump Inhibitor Start: 07-14-2024 take 1 capsule by mouth once daily Omeprazole 20 mg capsule,delayed release(DR/EC) Active 20 mg PO DAILY July 14, 2024 12:00am Start: 06-15-2024 omeprazole (Pr iLOSEC) [address] capsule 06/15/2024 Active Start: 11-27-2023 End: 06-13-2024 take 1 capsule by mouth once daily Omeprazole 40 mg capsule,delayed release(DR/EC) Discontinued 40 mg PO DAILY November 27, 2023 12:00am June 13, 2024 10:08am ondansetron 4 mg oral tablet (9 sources) Serotonin-3 Receptor Antagonist Start: 06-24-2024 End: 07-09-2024 take 1 tablet by mouth every eight hours as needed for nausea ondansetron (Zofran) 4 MG tablet Indications: Nausea and vomiting, unspecified vomiting type Take 1 tablet (4 mg) by mouth every 8 hours as needed for nausea or vomiting. 20 tablet 07/09/2024 Active Start: 11-07-2023 End: 06-13-2024 take 1 tablet by mouth every eight hours as needed for nausea Ondansetron Hcl 8 mg Tablet Discontinued 8 mg PO EVERY 8 HOURS NEEDED as needed for Nausea 42 November 07, 2023 12:00am June 13, 2024 10:08am polyethylene glycol [id number] [id number] mg powder for oral solution (2 sources) Osmotic Laxative Start: 05-12-2005 take 17 g by mouth once daily MIRALAX 100 % ORAL POWDER 17 grams in fluid a day 1 month 6 05/12/2005 Active Start: 10-14-2003 MIRALAX POWDER take one capful daily 527gm bottle 3 10/14/2003 Active potassium bicarbonate 25 meq effervescent oral tablet (15 sources) Start: 04-11-2023 take 1 tablet by mouth in the morning potassium bicarbonate (K-Lyte) 25 MEQ effervescent tablet Take 25 mEq by mouth in the morning and 25 mEq in the evening. 04/11/2023 Active sertraline 100 mg oral tablet (20 sources) Serotonin Reuptake Inhibitor Start: 04-25-2023 End: [...] Status: Ordered thiamine 100 mg oral tablet (20 sources) Start: 06-12-2023 End: 07-12-2023 take 1 [...] 03-21-2023 take 1 tablet by sonia th once daily thiamine (Vitamin B-1) 100 MG tablet Take 1 tablet (100 mg) by mouth daily. 30 tablet 2 03/21/2023 Active Thiamine Hcl (Vitamin B1) (Thiamine Hcl (Vitamin B1) 100 Mg Tablet) 100 mg tablet (2 sources) Start: 07-14-2024 take 1 tablet by mouth once daily Thiamine Hcl (Vitamin B1) (Thiamine Hcl (Vitamin B1) 100 Mg Tablet) 100 mg tablet Active 100 mg PO DAILY July 14, 2024 12:00am traZODone hydrochloride 50 mg oral tablet (1 source) Serotonin Reuptake Inhibitor Start: 06-20-2024 traZODone (Desyrel) 50 MG tablet 06/20/2024 Active Vitamin B Complex-Folic Acid (Vitamin B Complex-Folic Acid 0.4 Mg Tablet) 0.4 mg tablet (2 sources) Start: 07-14-2024 Vitamin B Complex-Folic Acid (Vitamin B Complex-Folic Acid 0.4 Mg Tablet) 0.4 mg tablet Active 1 {tbl} PO DAILY July 14, 2024 12:00am vitamin b12 0.5 mg oral tablet (16 sources) Vitamin B12 Start: 04-25-2023 End: 06-28-2023 take 2 tablets by mouth once daily cyanocobalamin (Vitamin B-12) 500 MCG tablet Take 2 tablets (1,000 mcg) by mouth daily. 60 tablet 2 06/28/2023 Active Vitamins-Lipotropics (B Complex Formula 1, Lipotrop,) tablet (1 source) Start: 06-22-2024 Vitamins-Lipotropics (B Complex Formula 1, Lipotrop,) tablet 06/22/2024 Active Completed/Discontinued Medications Medication Drug Class(es) Dates Sig (Normalized) Sig (Original) cefdinir 300 mg oral capsule (2 sources) Cephalosporin Antibacterial Start: 04-11-2023 End: 04-25-2023 take 1 capsule by mouth twice daily cefdinir (Omnicef) 300 MG capsule Take 300 mg by mouth 2 times daily. 0 04/11/2023 04/25/2023 cetirizine hydrochloride 10 mg oral tablet (1 source) Histamine-1 Receptor Antagonist Start: 06-15-2024 End: 07-09-2024 cetirizine (ZyrTEC) 10 MG tablet 06/15/2024 07/09/2024 Discontinued doxycycline monohydrate 100 mg oral capsule (16 sources) Tetracycline-class Drug Start: 11-05-2023 End: 11-27-2023 take 1 capsule by mouth twice daily Doxycycline Monohydrate 100 mg Capsule Discontinued 100 mg PO TWICE A DAY November 07, 2023 12:00am November 27, 2023 6:30pm Start: 04-11-2023 End: 04-25-2023 take 1 capsule by mouth twice daily doxycycline (Vibramycin) 100 MG capsule Take 100 mg by mouth 2 times daily. 0 04/11/2023 04/25/2023 gabapentin 400 mg oral capsule (9 sources) Anti-epileptic Agent Start: 03-29-2024 End: 07-09-2024 gabapentin (Neurontin) 400 MG capsule 03/29/2024 07/09/2024 Discontinued Start: 04-17-2023 End: 04-25-2023 take 1 capsule [...] 12:00am Start: 03-21-2023 take 1 capsule by [facility] three times daily gabapentin (Neurontin) 300 MG [...] is recommended if haloperidol is given IV ibuprofen 800 mg oral tablet (1 source) Nonsteroidal Anti-inflammatory Drug Start: 06-26-2024 End: 07-09-2024 ibuprofen 800 MG tablet 06/26/2024 07/09/2024 Discontinued 1 ml LORazepam 2 mg/ml injection (2 sources) Benzodiazepine Start: 09-02-2023 End: 09-02-2023 2 mg, IntraMUSCular, Once PRN, agitation, Starting on 09/02/23 at 0224, For 1 dose, For IV doses dilute dose with 1ml NS. metroNIDAZOLE 500 mg oral tablet (7 sources) Nitroimidazole Antimicrobial Start: 11-05-2023 End: 11-05-2023 take 1 tablet by mouth twice daily Metronidazole 500 mg tablet Discontinued 500 mg PO TWICE A DAY November 05, 2023 12:00am November 05, 2023 6:36pm permethrin 50 mg/ml topical cream (5 sources) Pyrethroid Start: 05-05-2024 End: 06-13-2024 Permethrin (Elimite) 5 % cream Discontinued 1 NMA TOPICAL Q14D 60 May 05, 2024 12:00am June 13, 2024 10:08am Apply topically from head to feet. Leave on for 8 to 12 hours then wash off. If symptoms persist after 14 days repeat the application. microencapsulated potassium chloride 10 meq extended release oral tablet (9 sources) Start: 09-02-2023 End: 09-02-2023 40 mEq, Oral, Once, On 09/02/23 at 0430, For 1 dose, Best given with food and plenty of water to minimize gastric irritation. Do not crush or chew. Start: 07-12-2023 End: 11-27-2023 take 1 capsule by mouth once daily Potassium Chloride 10 mEq capsule, extended release Discontinued 10 meq PO DAILY July 12, 2023 12:00am November 27, 2023 6:30pm predniSONE 20 mg oral tablet (20 sources) Start: 09-16-2023 End: 11-05-2023 take 1 tablet by mouth twice daily Prednisone 20 mg tablet Discontinued 20 mg PO TWICE A DAY September 16, 2023 12:00am November 05, 2023 6:36pm Start: 12-10-2018 End: 07-12-2023 take 3 tablets by mouth once daily at mealtime Prednisone 20 MG tablet Discontinued 60 mg PO DAILY December 10, 2018 12:00am July 12, 2023 6:30am With food Start: 07-01-2018 End: 07-08-2018 take 2 tablets by mouth once daily at mealtime Prednisone 20 MG tablet Discontinued 40 mg PO DAILY July 01, 2018 12:00am July 07, 2018 12:00am July 08, 2018 12:07am With food pregabalin 100 mg oral capsule (20 sources) Start: 07-22-2023 End: 07-09-2024 take 1 capsule by mouth three times daily Pregabalin 100 mg capsule Discontinued 100 mg PO THREE TIMES A DAY July 22, 2023 12:00am June 13, 2024 10:08am Start: 04-25-2023 End: 07-19-2023 take 1 capsule by mouth three times daily pregabalin (Lyrica) 100 MG capsule Indications: Alcohol-induced polyneuropathy (HCC) , Multiple open wounds of foot Take 1 capsule (100 mg) by mouth 3 times daily. 90 capsule 0 06/19/2023 07/19/2023 Active sennosides, fci 8.6 mg oral capsule (7 sources) Start: 11-07-2023 End: 11-27-2023 take 1 capsule by mouth twice daily Sennosides (Senna) 8.6 mg capsule Discontinued 8.6 mg PO TWICE A DAY November 07, 2023 12:00am November 27, 2023 6:30pm Problems Active Problems Problem Classification Problem Date Documented Da te Episodic/Chronic Abdominal pain (1 source) Pelvic and perineal pain; Translations: [PELVIC AND PERINEAL PAIN] Onset: 03-16-2023 Episodic Administrative/social admission (2 sources) Feigning of symptoms; Translations: [Malingerer [conscious simulation]] 06-21-2024 Episodic Alcohol-related disorders (20 sources) Alcohol abuse; [...] VISUAL DISTURBANCES] Onset: 03-16-2023 Episodic Cardiac dysrhythmias (11 sources) Tachycardia, unspecified; Translations: [ECG: sinus tachycardia] Onset: 03-16-2023 04-25-2024 Episodic Diseases of white blood cells (1 source) Other elevated white blood cell count; Translations: [OTH ELEVATED WHITE BLOOD CELL COUNT] Onset: 03-16-2023 Chronic Disorders usually diagnosed in infancy, childhood, or adolescence (20 sources) Attention deficit hyperactivity disorder, predominantly inattentive [...] [ENDOMETRIOSIS UNSPECIFIED] Onset: 03-16-2023 Chronic Esophageal disorders (8 sources) Gastro-esophageal reflux disease without esophagitis; Translations: [Gastroesophageal reflux disease] Onset: 11-08-2022 07-27-2023 Chronic Essential hypertension (7 sources) Essential (primary) hypertension; Translations: [Hypertensive disorder] Onset: 03-16-2023 06-08-2023 Chronic Gastritis and duodenitis (7 sources) Gastritis; Translations: [Gastritis, unspecified, without bleeding] 12-14-2023 Episodic Genitourinary symptoms and ill-defined conditions (1 source) Genitourinary tract problem; Translations: [Unspecified symptoms and signs involving the genitourinary system] Onset: 08-18-2023 Episodic Hypertension with complications and secondary hypertension (1 source) Hypertensive urgency; Translations: [HYPERTENSIVE URGENCY] Onset: 03-16-2023 Chronic Inflammatory diseases of female pelvic organs (7 sources) Bacterial vaginosis; Translations: [Acute vaginitis] 11-13-2023 Episodic Menstrual disorders (3 sources) Missed period; Translations: [Irregular menstruation, unspecified] Onset: 07-09-2024 07-09-2024 Chronic Mood disorders (20 sources) Bipolar disorder, unspecified; Translations: [Recurrent major depressive episodes, moderate ] Onset: 03-16-2023 04-26-2023 Chronic Nausea and vomiting (12 sources) Vomiting; Translations: [Vomiting, unspecified] Onset: 07-09-2024 07-28-2023 Episodic Nutritional deficiencies (1 source) Undernutrition; Translations: [Mild protein-calorie malnutrition] Onset: 06-09-2023 06-09-2023 Chronic Nutritional deficiencies (1 source) Nutritional deficiency, unspecified; Translations: [NUTRITIONAL DEFICIENCY UNSPECIFIED] Onset: 03-24-2023 Episodic Other aftercare (1 source) Other correction (current) drug therapy; Translations: [OTH ASSISTANT PROFESSOR OF THEATER CURRENT DRUG THERAPY] Onset: 04-12-2023 Episodic Other circulatory disease (10 sources) Elevated blood-pressure reading without diagnosis of hypertension; Translations: [Elevated blood-pressure reading, without diagnosis of hypertension] 04-25-2024 Episodic Other connective tissue disease (7 sources) [...] INSUFF CHRONIC PERIPHERAL] Onset: 04-12-2023 Episodic Other gastrointestinal disorders (7 sources) Heartburn; Translations: [Heartburn] 04-25-2024 Episodic Other hematologic conditions (1 source) Other [...] CHANGE LIVER NEC] Onset: 03-16-2023 Chronic Other lower respiratory disease (1 source) Shortness of breath; Translations: [Shortness of breath] Onset: 07-18-2024 Episodic Other nervous system disorders (2 sources) [...] nutritional; endocrine; and metabolic disorders (1 source) Morbid (severe) obesity due to excess calories; Translations: [MORBID SEVERE OBES D/T EXCESS BRISEIDA] Onset: 03-16-2023 Chronic Other nutritional; endocrine; and metabolic disorders (1 source) Severe obesity; Translations: [Morbid (severe) obesity due to excess calories] Onset: 06-08-2023 06-08-2023 Chronic Other nutritional; endocrine; and metabolic disorders (1 source) Hypomagnesemia; Translations: [Hypomagnesemia] Onset: 06-08-2023 Chronic Other screening for suspected conditions (not mental disorders or infectious disease) (5 sources) Abnormal results of thyroid function studies; Translations: [Prolonged QT interval] Onset: 03-16-2023 06-08-2023 Episodic Other skin disorders (7 sources) Eruption; Translations: [Rash and other nonspecific skin eruption] 09-24-2023 Episodic Other skin disorders (5 sources) Disorder of skin; Translations: [Disorder of the skin and subcutaneous tissue, unspecified] 05-05-2024 Episodic Other upper respiratory disease (3 sources) Seasonal allergy; Translations: [Other seasonal allergic rhinitis] Onset: 07-09-2024 07-09-2024 Chronic Other upper respiratory disease (2 sources) Other seasonal allergic rhinitis; Translations: [Other seasonal allergic rhinitis] Onset: 07-09-2024 Chronic Other upper respiratory disease (6 sources) Throat irritation; Translations: [Other diseases of pharynx] 04-28-2024 Episodic Other upper respiratory infections (1 source) Viral upper respiratory tract infection; Translations: [Acute upper respiratory infection, unspecified] 07-14-2024 Episodic Residual codes; unclassified (1 source) Restlessness and agitation; Translations: [Restlessness and agitation] Onset: 12-20-2023 Chronic Residual codes; unclassified (1 source) Localized edema; Translations: [LOCALIZED EDEMA] Onset: 04-12-2023 Episodic Residual codes; unclassified (1 source) Pain Onset: 04-21-2023 Episodic Residual codes; unclassified (1 source) Hallucinations; Translations: [Hallucinations, unspecified] Onset: 08-18-2023 Episodic Residual codes; unclassified (7 sources) Tobacco user; Translations: [Tobacco use] 07-28-2023 Episodic Residual codes; unclassified (3 sources) Tactile hallucinations; Translations: [Other hallucinations] 06-02-2024 Episodic Residual codes; unclassified (2 sources) Patient encounter status; Translations: [Procedure and treatment not carried out due to patient leaving prior to being seen by health care provider] 06-21-2024 Episodic Residual codes; unclassified (1 source) Procedure and treatment not carried out due to patient leaving prior to being seen by health care provider; Translations: [Procedure and treatment not carried out due to patient leaving prior to being seen by health care provider] Onset: 06-04-2024 Episodic Schizophrenia and other psychotic disorders (20 sources) Paranoid disorder; Translations: [Delusional disorders] Onset: 09-02-2023 09-02-2023 Chronic Schizophrenia and other psychotic disorders (7 sources) Brief psychotic disorder; Translations: [Acute psychosis] 12-29-2023 Episodic Screening and history of mental health and substance abuse codes (14 sources) H/O: manic depressive disorder; Translations: [Personal history of other mental and behavioral disorders] 11-13-2023 Episodic Skin and subcutaneous tissue infections (2 sources) Cellulitis of right lower limb; Translations: [Cellulitis of left lower limb] Onset: 04-11-2023 Episodic Substance-related disorders (20 sources) Nicotine dependence, cigarettes, uncomplicated; Translations: [Nicotine dependence, unspecified, uncomplicated] Onset: 10-10-2022 Resolved: 06-05-2024 06-08-2023 Chronic Thyroid disorders (20 sources) Acquired hypothyroidism; Translations: [Hypothyroidism, unspecified] Onset: [...] syndrome without complication (HCC)] Onset: 06-08-2023 Unclassified (6 sources) for drug abuse treatment Unclassified (1 source) Opioid abuse with withdrawal; Translations: [Opioid abuse with withdrawal] Onset: 01-17-2024 Urinary tract infections (8 sources) Urinary tract infection, site not specified; Translations: [Acute cystitis] Onset: 03-16-2023 11-13-2023 Episodic Past or Other Problems Problem Classification Problem Date Documented Date Episodic/Chronic Attention-deficit, conduct, and disruptive behavior disorders (1 source) Strange and inexplicable behavior; Translations: [Strange and inexplicable behavior] Onset: 04-09-2024 Episodic Bacterial infection; unspecified site (8 sources) Chlamydial infection; Translations: [Chlamydial infection, unspecified] Onset: 11-07-2023 11-06-2023 Episodic Fluid and electrolyte disorders (20 sources) Hypokalemia; Translations: [Dehydration] Onset: 11-08-2022 06-08-2023 Episodic Mood disorders (18 sources) Mood disorders Onset: 03-21-2023 Resolved: 06-28-2023 03-21-2023 Open wounds of extremities (20 sources) Multiple open wounds of foot; Translations: [Unspecified open wound, unspecified foot, initial encounter] Onset: 04-25-2023 Resolved: 06-05-2024 04-25-2023 Episodic Other circulatory disease (1 source) [...] Onset: 10-10-2022 Episodic Other connective tissue disease (13 sources) Other symptoms and signs involving the musculoskeletal system; Translations: [Other musculoskeletal symptoms referable to limbs] Onset: 03-21-2023 Resolved: 06-05-2024 03-21-2023 Episodic Other hematologic conditions (20 sources) Erythrocytosis; Translations: [Secondary polycythemia] Onset: 03-21-2023 Resolved: 06-05-2024 03-21-2023 Episodic Other liver diseases (9 sources) Enzyme level - finding; Translations: [Elevated transaminase level] Onset: 06-28-2023 06-28-2023 Episodic Other skin disorders (1 source) Rash and other nonspecific skin eruption; Translations: [Rash and other nonspecific skin eruption] Onset: 10-04-2023 Episodic Other upper respiratory disease (1 source) Pain in throat; Translations: [PAIN IN THROAT] Onset: 11-17-2022 Episodic Residual codes; unclassified (1 source) Tobacco use; Translations: [TOBACCO USE] Onset: 11-17-2022 Episodic Residual codes; unclassified (1 source) Family history of ischemic heart disease and other diseases of the circulatory system; Translations: [FAM HX ISCHEMIC HRT DZ OTH DZ CIRC] Onset: 11-08-2022 Episodic Substance-related disorders (20 sources) Misuses drugs; Translations: [Other stimulant use, unspecified, uncomplicated] Onset: 08-18-2023 Episodic Unclassified (7 sources) Admitted to alcohol detoxification center 11-13-2023 Results Test Name Value Interpretation Reference Range Facility 36on 07-18-2024 36 Also sent her a MUBI message---has not read or answer her phone. If patient calls back please make sure she is aware she needs to call to schedule with Psych. MUBI message sent to patient: Farideh wanted me want to reach out to let you know that she would like you to follow up with the psychiatric provider that you had seen that last filled your prescription of olanzapine. His name is Gary Hernandez. Please call there office to get scheduled at your earliest convenience. I attached there offices information below. [facility] [employer] [address] [id number] [facility] Absolute lymphocyte countOrd ered By: Bharat Pinedo on 07-14-2024 Lymphocytes Auto (Unsp spec) [#/Vol] 2.64 10*3/uL 0.83-4.51 [facility] Absolute neutrophil countOrd ered By: Bharat Pinedo on 07-14-2024 Neutrophils (Bld) [#/Vol] 7.4 10*3/uL 2.0-7.7 [facility] Alcohol, Blood (Medical)-Ser umon 07-14-2024 SERUM ETOH 21.7 mg/dL High <=10.0 [facility] Comment on above: Result Comment: This test is for medical purposes only. The legaldefinition of intoxication varies according to local law. Performed By: #### L 700.6800, L505.5000, L501.9100, L500.2500, L100.0100 ####[facility] [address] [place], [address] Amphetamine detection with 1 000 ng/mL as cutoffOrdered By: Bharat Pinedo on 07-14-2024 Amphetamines Screen method >1000 ng/mL Ql (U) Positive <1000 ng/mL [facility] Comment on above: If confirmation test ing is needed, a separate order will be required to send out testing to the reference laboratory. Amphetamines Screen method >1000 ng/mL Ql (U) Negative < 200 ng/mL [facility] Anion gap in Serum or Plasma Ordered By: Bharat Pinedo on 07-14-2024 Anion gap [Moles/Vol] 13 mmol/L 5-15 [facility] Automated lymphocyte count a s percentage of total leukocytesOrdered By: Bharat Pinedo on 07-14-2024 Lymphocytes/100 WBC Auto (Unsp spec) 24.0 % [facility] BUN/creatinine ratioOrdered By: Bharat Pinedo on 07-14-2024 Urea nitrogen/Creatinine [Mass ratio] 17.9 mg/mg - [facility] Basic Metabolic Profile (BMP )on 07-14-2024 BUN/CRE 17.9 RATIO Normal - [facility] Comment on above: Performed By: #### L 700.6800, L505.5000, L501.9100, L500.2500, L100.0100 ####[facility] [address] [place], [address] Calcium [Mass/Vol] 9.3 mg/dL Normal 7.6-11.0 [facility] Comment on above: Performed By: #### L 700.6800, L505.5000, L501.9100, L500.2500, L100.0100 ####[facility] [address] [place], [address] Chloride [Moles/Vol] 108 mmol/L Normal 98-108 [facility] Comment on above: Performed By: #### L 700.6800, L505.5000, L501.9100, L500.2500, L100.0100 ####[facility] [address] [place], [address] CO2 [Moles/Vol] 23.1 mmol/L Normal 21.0-32.0 [facility] Comment on above: Performed By: #### L 700.6800, L505.5000, L501.9100, L500.2500, L100.0100 ####[facility] [address] [place], [address] Creatinine [Mass/Vol] 0.59 mg/dL Low 0.70-1.20 [facility] Comment on above: Performed By: #### L 700.6800, L505.5000, L501.9100, L500.2500, L100.0100 ####[facility] [address] [place], [address] ECRCL 164.24 ml/min Normal 50-250 [facility] Comment on above: Performed By: #### L 700.6800, L505.5000, L501.9100, L500.2500, L100.0100 ####[facility] [address] [place], [address] GAP 13 Normal 5-15 [facility] Comment on above: Performed By: #### L 700.6800, L505.5000, L501.9100, L500.2500, L100.0100 ####[facility] [address] [place], [address] GFR/1.73 sq M.predicted among non-blacks MDRD (S/P/Bld) [Vol rate/Area] 129 mL/min/{1.73_m2} Normal >60 [facility] Comment on above: Result Comment: mL/m in/1.73m2 CKD-EPI Creatinine Equation (2020) Performed By: #### L 700.6800, L505.5000, L501.9100, L500.2500, L100.0100 ####[facility] [address] [place], [address] Glucose [Mass/Vol] 84 mg/dL Normal 70-99 [facility] Comment on above: Performed By: #### L 700.6800, L505.5000, L501.9100, L500.2500, L100.0100 ####[facility] [address] [place], [address] Potassium [Moles/Vol] 3.8 mmol/L Normal 3.3-5.1 [facility] Comment on above: Performed By: #### L 700.6800, L505.5000, L501.9100, L500.2500, L100.0100 ####[facility] [address] [place], [address] Sodium [Moles/Vol] 144 mmol/L Normal 133-145 [facility] Comment on above: Performed By: #### L 700.6800, L505.5000, L501.9100, L500.2500, L100.0100 ####[facility] [address] [place], [address] Urea nitrogen [Mass/Vol] 11 mg/dL Normal 4-19 [facility] Comment on above: Performed By: #### L 700.6800, L505.5000, L501.9100, L500.2500, L100.0100 ####[facility] [address] [place], [address] Basophil percentageOrdered B y: Bharat Pinedo on 07-14-2024 Basophils/100 WBC (Bld) 0.4 % 0-1 [facility] Bilirubin Test strip Ql (U)O rdered By: Bharat Pinedo on 07-14-2024 Bilirubin Ql (U) Negative Negative [facility] CBC W/Diff, Automatedon - Absolute Lymph 2.64 X10 3/uL Normal 0.83-4.51 [facility] Comment on above: Performed By: #### L 700.6800, L505.5000, L501.9100, L500.2500, L100.0100 ####[facility] [address] [place], [address] Absolute Neut 7.4 X10 3/uL Normal 2.0-7.7 [facility] Comment on above: Performed By: #### L 700.6800, L505.5000, L501.9100, L500.2500, L100.0100 ####[facility] [address] [place], [address] Basophils/100 WBC (Bld) 0.4 % Normal 0-1 [facility] Comment on above: Performed By: #### L 700.6800, L505.5000, L501.9100, L500.2500, L100.0100 ####[facility] [address] [place], [address] Eosinophils/100 WBC (Bld) 2.8 % Normal 0-5 [facility] Comment on above: Performed By: #### L 700.6800, L505.5000, L501.9100, L500.2500, L100.0100 ####[facility] [address] [place], [address] Erythrocyte distribution width (RBC) [Ratio] 13.3 % Normal 11.6-14.6 [facility] Comment on above: Performed By: #### L 700.6800, L505.5000, L501.9100, L500.2500, L100.0100 ####[facility] [address] [place], [address] Hematocrit (Bld) [Volume fraction] 40.2 % Normal 37-47 [facility] Comment on above: Performed By: #### L 700.6800, L505.5000, L501.9100, L500.2500, L100.0100 ####[facility] [address] [place], [address] Hemoglobin (Bld) [Mass/Vol] 13.5 g/dL Normal 12.0-15. 0 [facility] Comment on above: Performed By: #### L 700.6800, L505.5000, L501.9100, L500.2500, L100.0100 ####[facility] [address] [place], [address] IG% 0.200 Normal 0.0-0.9 [facility] Comment on above: Result Comment: IG% - Immature Granulocytes (promyelocytes, myelocytes andmetamyelocytes) > 1% indicates that a LEFT SHIFT is Present. Performed By: #### L 700.6800, L505.5000, L501.9100, L500.2500, L100.0100 ####[facility] [address] [place], [address] Lymphocytes/100 WBC (Bld) 24.0 % Normal 19-41 [facility] Comment on above: Performed By: #### L 700.6800, L505.5000, L501.9100, L500.2500, L100.0100 ####[facility] [address] [place], [address] MCH (RBC) [Entitic mass] 31.8 pg Normal 27.0-32.0 [facility] Comment on above: Performed By: #### L 700.6800, L505.5000, L501.9100, L500.2500, L100.0100 ####[facility] [address] [place], [address] MCHC (RBC) [Mass/Vol] 33.6 g/dL Normal 32-36 [facility] Comment on above: Performed By: #### L 700.6800, L505.5000, L501.9100, L500.2500, L100.0100 ####[facility] [address] [place], [address] MCV (RBC) [Entitic vol] 94.6 fL Normal 81-99 [facility] Comment on above: Performed By: #### L 700.6800, L505.5000, L501.9100, L500.2500, L100.0100 ####[facility] [address] [place], [address] Monocytes/100 WBC (Bld) 5.9 % Normal 0-10 [facility] Comment on above: Performed By: #### L 700.6800, L505.5000, L501.9100, L500.2500, L100.0100 ####[facility] [address] [place], [address] Neutrophils/100 WBC (Bld) 66.7 % Normal 47-70 [facility] Comment on above: Performed By: #### L 700.6800, L505.5000, L501.9100, L500.2500, L100.0100 ####[facility] [address] [place], [address] Nucleated RBC (Bld) [#/Vol] 0 10*3/uL Normal 0-5 [facility] Comment on above: Performed By: #### L 700.6800, L505.5000, L501.9100, L500.2500, L100.0100 ####[facility] [address] [place], [address] Platelet mean volume (Bld) [Entitic vol] 10.0 fL Normal 6.2-12.0 [facility] Comment on above: Performed By: #### L 700.6800, L505.5000, L501.9100, L500.2500, L100.0100 ####[facility] [address] [place], [address] Platelets (Bld) [#/Vol] 266 10*3/uL Normal 150-450 [facility] Comment on above: Performed By: #### L 700.6800, L505.5000, L501.9100, L500.2500, L100.0100 ####[facility] [address] [place], [address] RBC (Bld) [#/Vol] 4.25 10*6/uL Normal 4.2-5.4 [facility] Comment on above: Performed By: #### L 700.6800, L505.5000, L501.9100, L500.2500, L100.0100 ####[facility] [address] [place], [address] RDW SD 46.4 fl High 35.1-43.9 [facility] Comment on above: Performed By: #### L 700.6800, L505.5000, L501.9100, L500.2500, L100.0100 ####[facility] [address] [place], [address] WBC (Bld) [#/Vol] 11.0 10*3/uL Normal 4.4-11.0 [facility] Comment on above: Performed By: #### L 700.6800, L505.5000, L501.9100, L500.2500, L100.0100 ####[facility] [address] [place], [address] Carbon dioxide, total [Moles /volume] in Central venous bloodOrdered By: Bharat Pinedo on 07-14-2024 CO2 [Moles/Vol] 23.1 mmol/L 21.0-32.0 [facility] Chest PA and Lateralon 07-14 Chest PA and Lateral Normal [facility] Chloride assayOrdered By: Francisco Pinedo on 07-14-2024 Chloride [Moles/Vol] 108 mmol/L 98-108 [facility] Emergency Department Summary on 07-14-2024 Emergency Department Summary Normal [facility] Emergency Department Summary Normal [facility] Eosinophil percentageOrdered By: Bharat Pinedo on 07-14-2024 Eosinophils/100 WBC (Bld) 2.8 % 0-5 [facility] Erythrocyte distribution wid th ratioOrdered By: Bharat Pinedo on 07-14-2024 Erythrocyte distribution width (RBC) [Ratio] 13.3 % 11.6-14.6 [facility] Erythrocyte distribution wid th standard deviationOrdered By: Bharat Pinedo on 07-14-2024 Erythrocyte distribution width (RBC) [Ratio] 46.4 fl High 35.1-43.9 [facility] Glomerular filtration rate ( GFR) estimation/1.73 sq m using serum, plasma, or whole bOrdered By: Bharat Pinedo on 07-14-2024 GFR/1.73 sq M.predicted among non-blacks MDRD (S/P/Bld) [Vol rate/Area] 129 mL/min/{1.73_m2} >60 [facility] Comment on above: mL/min/1.73m2 CKD-EP I Creatinine Equation (2020) Hematocrit Auto (Bld) [Volum e fraction]Ordered By: Bharat Pinedo on 07-14-2024 Hematocrit (Bld) [Volume fraction] 40.2 % 37-47 [facility] Hemoglobin measurementOrdere d By: Bharat Pinedo on 07-14-2024 Hemoglobin (Bld) [Mass/Vol] 13.5 g/dL 12.0-15. 0 [facility] Immature granulocytes/100 WB C Auto (Bld)Ordered By: Bharat Pinedo on 07-14-2024 Immature granulocytes/100 WBC (Bld) 0.200 % 0.0-0.9 [facility] Comment on above: IG% - Immature Granu locytes (promyelocytes, myelocytes and metamyelocytes) > 1% indicates that a LEFT SHIFT is Present. Ketones Test strip Ql (U)Ord ered By: Bharat Pinedo on 07-14-2024 Ketones Ql (U) Negative Negative [facility] MCV (mean corpuscular volume ) determinationOrdered By: Bharat Pinedo on 07-14-2024 MCV (RBC) [Entitic vol] 94.6 fL 81-99 [facility] Mean corpuscular hemoglobin (MCH) determinationOrdered By: Bharat Pinedo on 07-14-2024 MCH (RBC) [Entitic mass] 31.8 pg 27.0-32.0 [facility] Mean corpuscular hemoglobin concentration (MCHC) determinationOrdered By: Bharat Pinedo on 07-14-2024 MCHC (RBC) [Mass/Vol] 33.6 g/dL 32-36 [facility] Mean platelet volume determi nationOrdered By: Bharat Pinedo on 07-14-2024 Platelet mean volume (Bld) [Entitic vol] 10.0 fL 6.2-12.0 [facility] Microscopic analysis of urin e for red blood cells (RBC)Ordered By: Bharat Pinedo on 07-14-2024 Microscopic analysis of urine for red blood cells (RBC) 25-50 SEEN /hpf 0-5 [facility] Monocyte percentageOrdered B y: Bharat Pinedo on 07-14-2024 Monocytes/100 WBC (Bld) 5.9 % 0-10 [facility] Mucus LM Ql (Urine sed)Order ed By: Bharat Pinedo on 07-14-2024 Mucus Ql (Urine sed) 0 SEEN /hpf [facility] Neutrophil percentageOrdered By: Bharat Pinedo on 07-14-2024 Neutrophils/100 WBC (Bld) 66.7 % 47-70 [facility] Nitrite Test strip Ql (U)Ord ered By: Bharat Pinedo on 07-14-2024 Nitrite Ql (U) Negative Negative [facility] No Panel InformationOrdered By: Bharat Pinedo on 07-14-2024 Urine Buprenorphine Qualitative Negative < 200 ng/mL [facility] Urine Oxycodone Screen Negative < 100 ng/mL [facility] Nucleated red blood cell per centageOrdered By: Bharat Pinedo on 07-14-2024 Nucleated RBC/100 WBC (Bld) [Ratio] 0 % 0-5 [facility] Hospital Platelet countOrdered By: Francisco Pinedo on 07-14-2024 Platelets (Bld) [#/Vol] 266 10*3/uL 150-450 [facility] Potassium measurement (mass/ volume)Ordered By: Bharat Pinedo on 07-14-2024 Potassium (Unsp spec) [Mass/Vol] 3.8 mmol/L 3.3-5.1 [facility] ,Serum,hCG Quali.on 07-14-2024 HCG, SERUM QUAL Negative Normal [facility] Comment on above: Performed By: #### L 700.6800, L505.5000, L501.9100, L500.2500, L100.0100 ####[facility] [address] [place], [address] Protein Test strip Ql (U)Ord ered By: Bharat Pinedo on 07-14-2024 Protein Ql (U) 30 mg/dl High Negative [facility] Quantitative urine opiates m easurementOrdered By: Bharat Pinedo on 07-14-2024 Opiates Ql (U) Negative < 300 ng/mL [facility] RBC Auto (Bld) [#/Vol]Ordere d By: Bharat Pinedo on 07-14-2024 RBC (Bld) [#/Vol] 4.25 10*6/uL 4.2-5.4 [facility] Screening urine fentanyl suzette surementOrdered By: Bharat Pinedo on 07-14-2024 fentaNYL Screen Ql (U) Negative [facility] Serum beta-hCG test, qualita tiveOrdered By: Bharat Pinedo on 07-14-2024 Beta HCG ( test) Ql Negative [facility] Serum creatinine measurement (mass/volume)Ordered By: Bharat Pinedo on 07-14-2024 Creatinine [Mass/Vol] 0.59 mg/dL Low 0.70-1.20 [facility] Serum glucose measurement (m ass/volume)Ordered By: Bharat Pinedo on 07-14-2024 Glucose [Mass/Vol] 84 mg/dL 70-99 [facility] Serum or plasma calcium riddhi urement (mass/volume)Ordered By: Bharat Pinedo on 07-14-2024 Calcium [Mass/Vol] 9.3 mg/dL 7.6-11.0 [facility] Serum or plasma ethanol riddhi urement (mass/volume)Ordered By: Bharat Pinedo on 07-14-2024 Ethanol [Mass/Vol] 21.7 mg/dL High <10.1 [facility] Comment on above: This test is for med ical purposes only. The legal definition of intoxication varies according to local law. Serum or plasma urea nitroge n measurement (mass/volume)Ordered By: Bharat Pinedo on 07-14-2024 Urea nitrogen [Mass/Vol] 11 mg/dL 4-19 [facility] Sodium levelOrdered By: Sameer Pinedo on 07-14-2024 Sodium [Moles/Vol] 144 mmol/L 133-145 [facility] Squamous epithelial cells de tection in urine sediment by light microscopyOrdered By: Bharat Pinedo on 07-14-2024 Epithelial cells.squamous LM Ql (Urine sed) 0-5 SEEN /hpf 5-10 [facility] Urinalysis, Completeon 07-14 EPI,SQUAMOUS 0-5 SEEN Normal 5-10 [facility] Comment on above: Order Comment: ON @A NALYZER BATCH AT 0707/14/24 KCCLEAN CATCH Performed By: #### L 400.0001 ####[facility] [address] [place], [address] RBC 25-50 SEEN Normal 0-5 [facility] Comment on above: Order Comment: [place] @[place] [address]/14/24 KCCLEAN CATCH Performed By: #### L 400.0001 ####[facility] [address] [place], [address] WBC 0-5 SEEN Normal 0-5 [facility] Comment on above: Order Comment: [place] @[place] [address]/14/24 KCCLEAN CATCH Performed By: #### L 400.0001 ####[facility] [address] [place], [address] BACTERIA 0 SEEN Normal None Seen [facility] Comment on above: Order Comment: [place] @[place] [address]/14/24 KCCLEAN CATCH Performed By: #### L 400.0001 ####[facility] [address] [place], [address] Mucus Ql (Urine sed) 0 SEEN Normal [facility] Comment on above: Order Comment: [place] [address]/14/24 KCCLEAN CATCH Performed By: #### L 400.0001 ####[facility] [address] [place], [address] Urine Drug Screen (VISTA)on 07-14-2024 AMPHETAMINES Positive Normal <1000 ng/mL [facility] Comment on above: Result Comment: If c onfirmation testing is needed, a separate order will berequired to send out testing to the reference laboratory. Performed By: #### L 700.6800, L505.5000, L501.9100, L500.2500, L100.0100 ####[facility] [address] [place], [address] BARBITIURATES Negative Normal < 200 ng/mL [facility] Comment on above: Performed By: #### L 700.6800, L505.5000, L501.9100, L500.2500, L100.0100 ####[facility] [address] [place] [address] BENZODIAZIPINE Negative Normal < 200 ng/mL [facility] Comment on above: Performed By: #### L 700.6800, L505.5000, L501.9100, L500.2500, L100.0100 ####[facility] [address] [place], [place], [phone] BUP Ur Drug Scr Negative Normal < 200 ng/mL [facility] Comment on above: Performed By: #### L 700.6800, L505.5000, L501.9100, L500.2500, L100.0100 ####[facility] [address] [place], [place], [phone] COCAINE Negative Normal < 300 ng/mL [facility] Comment on above: Performed By: #### L 700.6800, L505.5000, L501.9100, L500.2500, L100.0100 ####[facility] [address] [place], [address] Fentanyl Negative Normal [facility] Comment on above: Performed By: #### L 700.6800, L505.5000, L501.9100, L500.2500, L100.0100 ####[facility] [address] [place] [address] METHADONE Negative Normal < 300 ng/mL [facility] Comment on above: Performed By: #### L 700.6800, L505.5000, L501.9100, L500.2500, L100.0100 ####[facility] [address] [place], [address] OPIATES Negative Normal < 300 ng/mL [facility] Comment on above: Performed By: #### L 700.6800, L505.5000, L501.9100, L500.2500, L100.0100 ####[facility] [address] [place], [address] OXYCODONE Negative Normal < 100 ng/mL [facility] Comment on above: Performed By: #### L 700.6800, L505.5000, L501.9100, L500.2500, L100.0100 ####[facility] [address] [place], [address] PCP Negative Normal < 25 ng/mL [facility] Comment on above: Performed By: #### L 700.6800, L505.5000, L501.9100, L500.2500, L100.0100 ####[facility] [address] [place], [address] THC Positive Normal < 50 ng/mL [facility] Comment on above: Result Comment: If c onfirmation testing is needed, a separate order will berequired to send out testing to the reference laboratory. Performed By: #### L 700.6800, L505.5000, L501.9100, L500.2500, L100.0100 ####[facility] [address] [place], [address] Urine benzodiazepine levelOr dered By: Bharat Pinedo on 07-14-2024 Benzodiazepines Ql (U) Negative < 200 ng/mL [facility] Urine clarityOrdered By: Juan Carlos Pinedo on 07-14-2024 Clarity (U) Clear Clear [facility] Urine cocaine levelOrdered B y: Bharat Pinedo on 07-14-2024 Cocaine Ql (U) Negative < 300 ng/mL [facility] Urine color determinationOrd ered By: Bharat Pinedo on 07-14-2024 Color (U) Yellow Yellow [facility] Urine acpif-4-givcmwupdjyunk abinol (THC) measurementOrdered By: Bharat Pinedo on 07-14-2024 Cannabinoids Screen Ql (U) Positive < 50 ng/m L [facility] Comment on above: If confirmation test ing is needed, a separate order will be required to send out testing to the reference laboratory. Urine glucose detectionOrder ed By: Bharat Pinedo on 07-14-2024 Glucose Ql (U) Normal mg/dl Normal [facility] Urine leukocyte esterase det ection by dipstickOrdered By: Bharat Pinedo on 07-14-2024 Leukocyte esterase Test strip Ql (U) Negative Negative [facility] Urine pHOrdered By: Bharat bell on 07-14-2024 pH (U) 7.0 [pH] 5.0 - 8.0 [facility] Urine phencyclidine (PCP) de tectionOrdered By: Bharat Pinedo on 07-14-2024 Phencyclidine Ql (U) Negative < 25 ng/mL [facility] Urine sediment bacteria coun t by microscopy (number/high power field)Ordered By: Bharat Pinedo on 07-14-2024 Bacteria LM.HPF (Urine sed) [#/Area] 0 /[HPF] None Seen [facility] Urine specific gravity measu rementOrdered By: Bharat Pinedo on 07-14-2024 Specific gravity (U) [Rel density] 1.010 1.002-1.03 0 [facility] Urine urobilinogen measureme ntOrdered By: Bharat Pinedo on 07-14-2024 Urobilinogen Ql (U) Normal mg/dl Normal [facility] White blood cell (WBC) count Ordered By: Bharat Pinedo on 07-14-2024 WBC (Bld) [#/Vol] 11.0 10*3/uL 4.4-11.0 [facility] White blood cell countOrdere d By: Bharat Pinedo on 07-14-2024 White blood cell count 0-5 SEEN /hpf 0-5 [facility] 07-12-2024 36 Left a message to return call. [facility] 3607-11-2024 36 I sent her allergy medication, blood pressure medications to the pharmacy yesterday. I did refill hydroxyzine which she can use for anxiety as needed. I am not going to be filling the antipsychotic medication which she really needs to get from a psychiatric provider. Please see other encounter-it looks like a provider from the [facility] last prescribed it. I did not prescribe an antibiotic- there is no indication that she needs one. [facility] 36 Name of caller: Malka meier Contact phone number: [phone] Relationship to Patient: Patient Provider: Dr. Booth Practice: [facility] Chief Complaint/Reason for Call: Pt states that her pharmacy did not receive rx for antibiotics and a mental health medication that she spoke with Luis at her last OV 07/09/24. Pharmacy confirmed: [facility] [address] [place], [place] - [facility] [address] Best time of day caller can be reached: Any Patient advised that office/PCP has 24-48 business hours to return their call: No [facility] 36 Please advise patien t that it looks like Gary Hernandez, psychiatric provider was the last provider to prescribe the olanzapine. I recommend that she reach out to them to get scheduled for follow up. I believe that he is at the [facility]. [facility] [address] [place] [address] [facility] 36 Fax received placed on your desk. [facility] 07-10-2024 36 Called and spoke wit h pharmacist at [facility] in [place]-advised to please send over medication list with past refills and providers. Fax number given. [facility] 07-09-2024 36 Please reach out to patient's pharmacy in [place] and see if they have a list of prescriptions most recently prescribed for psychiatric medications along with most recent prescriber [facility] 36 Patient was seen in office today by Farideh [facility] HCG ( test) Ql (U)o n 07-09-2024 Beta HCG ( test) Ql [place] [id number] [facility] Comment on above: [id number] Interpretation and review of laboratory results Normal [facility] NEGATIVE QC Pass [facility] POSITIVE QC Pass [facility] Preg Test, Ur Negative Negative [facility] Office Visiton 07-09-2024 Follow-up visit [id number] Dhaval Moon 2000 F Date Provider Department Center 07/09/2024 LUIS DOYLE [facility] Family History Problem Relation Age of Onset High Blood Pressure Father No Known Problems Mother Family Status - Relation Status Age at Father Alive Mother Alive Level of Service:34602 DE OFFICE/OUTPATIENT ESTABLISHED MOD MDM 30 MIN Reason for Visit and Comments: Follow-up [681559] Possible [906681] Medication Check [7379978318] Med Refill [232635] Normal [facility] Progress Noteon 07-09-2024 Progress Note Denies any suicidal or homicidal ideation. Reports currently being without psychiatric provider. Will reach out to her pharmacy to see what most recent prescriptions are for her psychiatric medications which she is not sure of the dosing on. Normal [facility] Progress Note Stable, continue current inhalers Normal [facility] Progress Note Partial remission. Current psychiatric medications unknown. Will reach out to pharmacy to see what most recent prescriptions are. Patient denies having current psychiatric provider [facility] Progress Note Continue Zofran as needed. Currently asymptomatic Normal [facility] Progress Note Controlled. Blood pressure 117/81. Continue current medications losartan 50 mg daily, metoprolol XL 25 mg twice daily Normal [facility] Progress Note Patient was identifi ed by name and Date of . Patient identified by name and date of . Urine specimen cup labeled with patient name and date of . Urine cup given to patient, urine collected from patient. POCT HCG Urine ordered and signed by provider. POCT HCG urine results entered and were sent to provider. Charged Results Entered [facility] Progress Note 07/09/2024 Dhaval Moon (: 2000) is a 23 y.o. female , Established patient, here for evaluation of the following chief complaint(s): Follow-up, Possible , Medication Check, and Med Refill ASSESSMENT/PLAN: 1. Moderate persistent asthma without complication Assessment & Plan: Stable, continue current inhalers Orders: - albuterol 108 (90 Base) MCG/ACT inhaler; Inhale 2 puffs every 6 hours as needed for wheezing., Starting Mon07/09/2024, Normal 2. Anxiety Assessment & Plan: Partial remission. Current psychiatric medications unknown. Will reach out to pharmacy to see what most recent prescriptions are. Patient denies having current psychiatric provider Orders: - hydrOXYzine pamoate (Vistaril) 25 MG capsule; Take 2 capsules (50 mg) by mouth every 8 hours as needed for anxiety., Starting Mon07/09/2024, Normal 3. Seasonal allergies - fexofenadine (Ann-Marie) 180 MG tablet; Take 1 tablet (180 mg) by mouth Daily as needed (allergies)., Starting Mon07/09/2024, Until Mon07/09/2025 at 2359, Normal 4. Nausea and vomiting, unspecified vomiting type Assessment & Plan: Continue Zofran as needed. Currently asymptomatic Orders: - ondansetron (Zofran) 4 MG tablet; Take 1 tablet (4 mg) by mouth every 8 hours as needed for nausea or vomiting., Starting Mon07/09/2024, Normal 5. Primary hypertension Assessment & Plan: Controlled. Blood pressure 117/81. Continue current medications losartan 50 mg daily, metoprolol XL 25 mg twice daily Orders: - losartan (Cozaar) 50 MG tablet; Take 1 tablet (50 mg) by mouth daily., Starting Mon07/09/2024, Normal 6. Missed period - POCT , urine manually resulted 7. Moderate episode of recurrent major depressive disorder (HCC) Assessment & Plan: Denies any suicidal or homicidal ideation. Reports currently being without psychiatric provider. Will reach out to her pharmacy to see what most recent prescriptions are for her psychiatric medications which she is not sure of the dosing on. Follow up for 3 month [facility]. SUBJECTIVE/OBJECTIVE: HELEN Moon (: 2000) is a 23 y.o. female , Established patient, here for the evaluation of the following chief complaint(s): Follow-up, Possible , Medication Check, and Med Refill Patient presents for follow-up and med check. She reports that she was briefly in and out of rehab for street drug use and most recently left [facility] after 2.5 weeks in a treatment center. History of using EtOH and meth, last had meth about 1 month ago. States having some alcohol within the past couple of days. Denies any suicidal or homicidal ideation. Reports that she has had some hallucinations but these are not new. She was on an antipsychotic but does not have a current prescription for 1. She states she is not currently established with a psychiatric provider but reports that she has been seen by 180 in the past. States she thinks she might be but is unable to tell me when her last menstrual was. She is currently living with a friend in [place] and reports that she has limited contact with her immediate family. She does see her grandma quite often and reports a good relationship with her. Asthma-reports good symptom control does need a refill of her albuterol Hypertension-reports that she still is taking her blood pressure medications Reports they did blood work when she was in the rehab center but she does not know the results. Review of Systems Constitutional: Negative. HENT: Some nasal congestion with seasonal allergies Respiratory: Negative. Gastrointestinal: Positive for nausea and vomiting. Negative for abdominal pain, blood in stool, constipation and rectal pain. Genitourinary: Negative. Neurological: Negative. Psychiatric/Behavioral : Positive for agitation, decreased concentration and hallucinations. Negative for dysphoric mood, self-injury, sleep disturbance and suicidal ideas. The patient is nervous/anxious. Vitals: 07/09/24 1420 BP: 117/81 Pulse: 73 Resp: 20 Temp: 36.8 ?C (98.3 ?F) TempSrc: Infrared SpO2: 95% Weight: 236 lb 12.8 oz (107 kg) Physical Exam Constitutional: General: He is not in acute distress. Appearance: Normal appearance. He is obese. He is not ill-appearing. HENT: Head: Normocephalic and atraumatic. Right Ear: Tympanic membrane, ear canal and external ear normal. There is no impacted cerumen. Left Ear: Tympanic membrane, ear canal and external ear normal. There is no impacted cerumen. Nose: Nose normal. No congestion or rhinorrhea. Mouth/Throat: Mouth: Mucous membranes are moist. Pharynx: Oropharynx is clear. Uvula midline. No oropharyngeal exudate or posterior oropharyngeal erythema. Eyes: Conjunctiva/sclera: Conjunctivae normal. Pupils: Pupils are equal, round, and reactive to light. Neck: Vascular: No carotid bruit. Cardiovascular: Rate and Rhythm: Normal rate and regular rhythm. Pu (more content not included)... Normal [facility] 36on 07-05-2024 36 Left a message to return call. Luis Kathleen, BRENDA - BAM to Me (Selected Message) 07/03/24 4:29 PM Note This is a psychiatric medication that should be prescribed by a psychiatrist or psychiatric provider. Recommend that she reach out to her last psychiatric provider to get reestablished. Normal [facility] 36on 07-03-2024 36 This is a psychiatri c medication that should be prescribed by a psychiatrist or psychiatric provider. Recommend that she reach out to her last psychiatric provider to get reestablished. Normal [facility] 36 S: Patient spoke [facility] nurse regarding medication refill B: Onset of symptoms/concern 07/03/24 A: States they need refill of Olanzapine. States they are also having an increase in racing thoughts and is out of medication since leaving rehab. Feels depression. States they left rehab 2 days ago AMA. States they have concerns they may be and would like blood test to confirm or deny. Denies thoughts of harming others, denies abdominal pain, denies vaginal bleeding. R: Appt 07/09/24 @ 1420 with Ford Kathleen. Negative responses to COVID screening. Advised patient should arrive 15 minutes early, bring photo ID, ins cards, and medications. Patient understands care advice of community resources such as 98. Patient advised medications are ordered at provider discretion and provider may require office visit before prescribing. Allergies and pharmacy verified. No further needs at this time. Patient instructed to call back with new or worsening symptoms. Medication name: Olanzapine Medication dosage: 20 mg (Miligrams Monthly quantity needed: 30 How many day supply requestin days Medication route: oral (PO) Medication administration time(s): bedtime (HS) If taking medication PRN, reason for taking medication: N/A If this is a controlled substance do you receive this or any other controlled medication from any other doctor or facility: N/A Ordering provider: Historical provider Date of last office visit: 03/21/23 Date of next office visit: 07/09/24 Date of last refill: (see medication tab): unknown Updated/Validated preferred pharmacy: Yes Patient instructed to contact the pharmacy prior to picking up the medication: Yes Reason for Disposition Prescription refill request for ESSENTIAL medicine (i.e., likelihood of harm to patient if not taken) and triager unable to refill per department policy Protocols used: Medication Refill and [facility]al [facility] Absolute lymphocyte countOrd ered By: Tree Crowe on 06-13-2024 Lymphocytes Auto (Unsp spec) [#/Vol] 2.86 10*3/uL 0.83-4.51 [facility] Absolute neutrophil countOrd ered By: Tree Crowe on 06-13-2024 Neutrophils (Bld) [#/Vol] 3.8 10*3/uL 2.0-7.7 [facility] Alcohol, Blood (Medical)-Ser umon 06-13-2024 SERUM ETOH < 10.1 Normal <=10.0 [facility] Comment on above: Result Comment: Hemo lysis Present, Results may be affected.This test is for medical purposes only. The legaldefinition of intoxication varies according to local law. Performed By: #### L 700.6800, L500.4050, L501.9100, L100.0100, L505.5000 ####[facility] [address] [place], [address] Anion gap in Serum or Plasma Ordered By: Tree Crowe on 06-13-2024 Anion gap [Moles/Vol] 11 mmol/L 5-15 [facility] Automated lymphocyte count a s percentage of total leukocytesOrdered By: Tree Crowe on 06-13-2024 Lymphocytes/100 WBC Auto (Unsp spec) 38.9 % -41 [facility] BUN/creatinine ratioOrdered By: Tree Crowe on 06-13-2024 Urea nitrogen/Creatinine [Mass ratio] 16.4 mg/mg 10-20 [facility] Basophil percentageOrdered B y: Tree Crowe on 06-13-2024 Basophils/100 WBC (Bld) 0.5 % 0-1 [facility] Bilirubin, totalOrdered By: Tree Crowe on 06-13-2024 Bilirubin [Mass/Vol] 0.77 mg/dL 0.00-1.30 [facility] CBC W/Diff, Automatedon 05-0 Absolute Lymph 2.86 X10 3/uL Normal 0.83-4.51 [facility] Comment on above: Performed By: #### L 700.6800, L500.4050, L501.9100, L100.0100, L505.5000 ####[facility] [address] [place], [address] Absolute Neut 3.8 X10 3/uL Normal 2.0-7.7 [facility] Comment on above: Performed By: #### L 700.6800, L500.4050, L501.9100, L100.0100, L505.5000 ####[facility] [address] [place], [address] Basophils/100 WBC (Bld) 0.5 % Normal 0-1 [facility] Comment on above: Performed By: #### L 700.6800, L500.4050, L501.9100, L100.0100, L505.5000 ####[facility] [address] [place], [address] Eosinophils/100 WBC (Bld) 2.0 % Normal 0-5 [facility] Comment on above: Performed By: #### L 700.6800, L500.4050, L501.9100, L100.0100, L505.5000 ####[facility] [address] [place], [address] Erythrocyte distribution width (RBC) [Ratio] 13.5 % Normal 11.6-14.6 [facility] Comment on above: Performed By: #### L 700.6800, L500.4050, L501.9100, L100.0100, L505.5000 ####[facility] [address] [place], [address] Hematocrit (Bld) [Volume fraction] 47.4 % High 37-47 [facility] Comment on above: Performed By: #### L 700.6800, L500.4050, L501.9100, L100.0100, L505.5000 ####[facility] [address] [place], [address] Hemoglobin (Bld) [Mass/Vol] 15.7 g/dL High 12.0-15. 0 [facility] Comment on above: Performed By: #### L 700.6800, L500.4050, L501.9100, L100.0100, L505.5000 ####[facility] [address] [place], [address] IG% 0.300 Normal 0.0-0.9 [facility] Comment on above: Result Comment: IG% - Immature Granulocytes (promyelocytes, myelocytes andmetamyelocytes) > 1% indicates that a LEFT SHIFT is Present. Performed By: #### L 700.6800, L500.4050, L501.9100, L100.0100, L505.5000 ####[facility] [address] [place], [address] Lymphocytes/100 WBC (Bld) 38.9 % Normal 19-41 [facility] Comment on above: Performed By: #### L 700.6800, L500.4050, L501.9100, L100.0100, L505.5000 ####[facility] [address] [place], [address] MCH (RBC) [Entitic mass] 32.0 pg Normal 27.0-32.0 [facility] Comment on above: Performed By: #### L 700.6800, L500.4050, L501.9100, L100.0100, L505.5000 ####[facility] [address] [place], [address] MCHC (RBC) [Mass/Vol] 33.1 g/dL Normal 32-36 [facility] Comment on above: Performed By: #### L 700.6800, L500.4050, L501.9100, L100.0100, L505.5000 ####[facility] [address] [place], [address] MCV (RBC) [Entitic vol] 96.7 fL Normal 81-99 [facility] Comment on above: Performed By: #### L 700.6800, L500.4050, L501.9100, L100.0100, L505.5000 ####[facility] [address] [place], [address] Monocytes/100 WBC (Bld) 6.9 % Normal 0-10 [facility] Comment on above: Performed By: #### L 700.6800, L500.4050, L501.9100, L100.0100, L505.5000 ####[facility] [address] [place], [address] Neutrophils/100 WBC (Bld) 51.4 % Normal 47-70 [facility] Comment on above: Performed By: #### L 700.6800, L500.4050, L501.9100, L100.0100, L505.5000 ####[facility] [address] [place], [address] Nucleated RBC (Bld) [#/Vol] 0 10*3/uL Normal 0-5 [facility] Comment on above: Performed By: #### L 700.6800, L500.4050, L501.9100, L100.0100, L505.5000 ####[facility] [address] [place], [address] Platelet mean volume (Bld) [Entitic vol] 10.6 fL Normal 6.2-12.0 [facility] Comment on above: Performed By: #### L 700.6800, L500.4050, L501.9100, L100.0100, L505.5000 ####[facility] [address] [place], [address] Platelets (Bld) [#/Vol] 312 10*3/uL Normal 150-450 [facility] Comment on above: Performed By: #### L 700.6800, L500.4050, L501.9100, L100.0100, L505.5000 ####[facility] [address] [place], [address] RBC (Bld) [#/Vol] 4.90 10*6/uL Normal 4.2-5.4 [facility] Comment on above: Performed By: #### L 700.6800, L500.4050, L501.9100, L100.0100, L505.5000 ####[facility] [address] [place], [address] RDW SD 47.9 fl High 35.1-43.9 [facility] Comment on above: Performed By: #### L 700.6800, L500.4050, L501.9100, L100.0100, L505.5000 ####[facility] [address] [place], [address] WBC (Bld) [#/Vol] 7.4 10*3/uL Normal 4.4-11.0 [facility] Comment on above: Performed By: #### L 700.6800, L500.4050, L501.9100, L100.0100, L505.5000 ####[facility] [address] [place], [address] Carbon dioxide, total [Moles /volume] in Central venous bloodOrdered By: Tree Crowe on 06-13-2024 CO2 [Moles/Vol] 21.2 mmol/L 21.0-32.0 [facility] Chloride assayOrdered By: Perez Crowe on 06-13-2024 Chloride [Moles/Vol] 105 mmol/L 98-108 [facility] Comprehensive Metabolic Prof ilon 06-13-2024 Albumin [Mass/Vol] 3.9 g/dL Normal 3.5-5.0 [facility] Comment on above: Performed By: #### L 700.6800, L500.4050, L501.9100, L100.0100, L505.5000 ####[facility] [address] [place], [address] Albumin/Globulin [Mass ratio] 1.0 {ratio} Normal 0.9-2.4 [facility] Comment on above: Performed By: #### L 700.6800, L500.4050, L501.9100, L100.0100, L505.5000 ####[facility] [address] [place], [address] ALK PHOS 92 U/L Normal 35-104 [facility] Comment on above: Performed By: #### L 700.6800, L500.4050, L501.9100, L100.0100, L505.5000 ####[facility] [address] [place], [address] ALT [Catalytic activity/Vol] 9 U/L Normal <=34 [facility] Comment on above: Performed By: #### L 700.6800, L500.4050, L501.9100, L100.0100, L505.5000 ####[facility] [address] [place], [address] AST [Catalytic activity/Vol] 22 U/L Normal <=31 [facility] Comment on above: Result Comment: Hemo lysis present, Results??could be affected.?? Performed By: #### L 700.6800, L500.4050, L501.9100, L100.0100, L505.5000 ####[facility] [address] [place], [address] Bilirubin [Mass/Vol] 0.77 mg/dL Normal 0.00-1.30 [facility] Comment on above: Performed By: #### L 700.6800, L500.4050, L501.9100, L100.0100, L505.5000 ####[facility] [address] [place], [address] BUN/CRE 16.4 RATIO Normal 10-20 [facility] Comment on above: Performed By: #### L 700.6800, L500.4050, L501.9100, L100.0100, L505.5000 ####[facility] [address] [place], [address] Calcium [Mass/Vol] 9.0 mg/dL Normal 7.6-11.0 [facility] Comment on above: Performed By: #### L 700.6800, L500.4050, L501.9100, L100.0100, L505.5000 ####[facility] [address] [place], [address] Chloride [Moles/Vol] 105 mmol/L Normal 98-108 [facility] Comment on above: Performed By: #### L 700.6800, L500.4050, L501.9100, L100.0100, L505.5000 ####[facility] [address] [place], [address] CO2 [Moles/Vol] 21.2 mmol/L Normal 21.0-32.0 [facility] Comment on above: Performed By: #### L 700.6800, L500.4050, L501.9100, L100.0100, L505.5000 ####[facility] [address] [place], [address] Creatinine [Mass/Vol] 0.62 mg/dL Low 0.70-1.20 [facility] Comment on above: Performed By: #### L 700.6800, L500.4050, L501.9100, L100.0100, L505.5000 ####[facility] [address] [place], [address] ECRCL 149.75 ml/min Normal 50-250 [facility] Comment on above: Performed By: #### L 700.6800, L500.4050, L501.9100, L100.0100, L505.5000 ####[facility] [address] [place], [address] GAP 11 Normal 5-15 [facility] Comment on above: Performed By: #### L 700.6800, L500.4050, L501.9100, L100.0100, L505.5000 ####[facility] [address] [place], [address] GFR/1.73 sq M.predicted among non-blacks MDRD (S/P/Bld) [Vol rate/Area] 128 mL/min/{1.73_m2} Normal >60 [facility] Comment on above: Result Comment: mL/m in/1.73m2 CKD-EPI Creatinine Equation (2020) Performed By: #### L 700.6800, L500.4050, L501.9100, L100.0100, L505.5000 ####[facility] [address] [place], [address] Globulin (S) [Mass/Vol] 3.7 g/dL Normal 2.2-4.2 [facility] Comment on above: Performed By: #### L 700.6800, L500.4050, L501.9100, L100.0100, L505.5000 ####[facility] [address] [place], [address] Glucose [Mass/Vol] 103 mg/dL High 70-99 [facility] Comment on above: Performed By: #### L 700.6800, L500.4050, L501.9100, L100.0100, L505.5000 ####[facility] [address] [place], [address] Potassium [Moles/Vol] 4.7 mmol/L Normal 3.3-5.1 [facility] Comment on above: Result Comment: Hemo lysis present, Results??could be affected.?? Performed By: #### L 700.6800, L500.4050, L501.9100, L100.0100, L505.5000 ####[facility] [address] [place], [address] Sodium [Moles/Vol] 138 mmol/L Normal 133-145 [facility] Comment on above: Performed By: #### L 700.6800, L500.4050, L501.9100, L100.0100, L505.5000 ####[facility] [address] [place], [address] T PROT 7.6 g/dL Normal 5.9-8.4 [facility] Comment on above: Performed By: #### L 700.6800, L500.4050, L501.9100, L100.0100, L505.5000 ####[facility] [address] [place], [address] Urea nitrogen [Mass/Vol] 10 mg/dL Normal 4-19 [facility] Comment on above: Performed By: #### L 700.6800, L500.4050, L501.9100, L100.0100, L505.5000 ####[facility] [address] [place], [address] Emergency Department Summary on 06-13-2024 Emergency Department Summary Normal [facility] Emergency Department Summary Normal [facility] Eosinophil percentageOrdered By: Tree Crowe on 06-13-2024 Eosinophils/100 WBC (Bld) 2.0 % 0-5 [facility] Erythrocyte distribution wid th ratioOrdered By: Tree Crowe on 06-13-2024 Erythrocyte distribution width (RBC) [Ratio] 13.5 % 11.6-14.6 [facility] Erythrocyte distribution wid th standard deviationOrdered By: Tree Crowe on 06-13-2024 Erythrocyte distribution width (RBC) [Ratio] 47.9 fl High 35.1-43.9 [facility] Glomerular filtration rate ( GFR) estimation/1.73 sq m using serum, plasma, or whole bOrdered By: Tree Crowe on 06-13-2024 GFR/1.73 sq M.predicted among non-blacks MDRD (S/P/Bld) [Vol rate/Area] 128 mL/min/{1.73_m2} >60 [facility] Comment on above: mL/min/1.73m2 CKD-EP I Creatinine Equation (2020) Hematocrit Auto (Bld) [Volum e fraction]Ordered By: Tree Crowe on 06-13-2024 Hematocrit (Bld) [Volume fraction] 47.4 % High 37-47 [facility] Hemoglobin measurementOrdere d By: Tree Crowe on 06-13-2024 Hemoglobin (Bld) [Mass/Vol] 15.7 g/dL High 12.0-15. 0 [facility] Immature granulocytes/100 WB C Auto (Bld)Ordered By: Tree Crowe on 06-13-2024 Immature granulocytes/100 WBC (Bld) 0.300 % 0.0-0.9 [facility] Comment on above: IG% - Immature Granu locytes (promyelocytes, myelocytes and metamyelocytes) > 1% indicates that a LEFT SHIFT is Present. Laboratory - Chemistry and C hemistry - challengeOrdered By: Tree Crowe on 06-13-2024 AST [Catalytic activity/Vol] 22 U/L <32 [facility] Comment on above: Hemolysis present, R esults could be affected. MCV (mean corpuscular volume ) determinationOrdered By: Tree Crowe on 06-13-2024 MCV (RBC) [Entitic vol] 96.7 fL 81-99 [facility] Mean corpuscular hemoglobin (MCH) determinationOrdered By: Tree Crowe on 06-13-2024 MCH (RBC) [Entitic mass] 32.0 pg 27.0-32.0 [facility] Mean corpuscular hemoglobin concentration (MCHC) determinationOrdered By: Tree Crowe on 06-13-2024 MCHC (RBC) [Mass/Vol] 33.1 g/dL 32-36 [facility] Mean platelet volume determi nationOrdered By: Tree Crowe on 06-13-2024 Platelet mean volume (Bld) [Entitic vol] 10.6 fL 6.2-12.0 [facility] Monocyte percentageOrdered B y: Tree Crowe on 06-13-2024 Monocytes/100 WBC (Bld) 6.9 % 0-10 [facility] Neutrophil percentageOrdered By: Tree Crowe on 06-13-2024 Neutrophils/100 WBC (Bld) 51.4 % 47-70 [facility] Nucleated red blood cell per centageOrdered By: Tree Crowe on 06-13-2024 Nucleated RBC/100 WBC (Bld) [Ratio] 0 % 0-5 [facility] Platelet countOrdered By: Perez Crowe on 06-13-2024 Platelets (Bld) [#/Vol] 312 10*3/uL 150-450 [facility] Potassium measurement (mass/ volume)Ordered By: Tree Crowe on 06-13-2024 Potassium (Unsp spec) [Mass/Vol] 4.7 mmol/L 3.3-5.1 [facility] Comment on above: Hemolysis present, R esults could be affected. ,Serum,hCG Quali.on 06-13-2024 HCG, SERUM QUAL Negative Normal [facility] Comment on above: Performed By: #### L 700.6800, L500.4050, L501.9100, L100.0100, L505.5000 ####[facility] [address] [place], [address] RBC Auto (Bld) [#/Vol]Ordere d By: Tree Crowe on 06-13-2024 RBC (Bld) [#/Vol] 4.90 10*6/uL 4.2-5.4 [facility] Serum beta-hCG test, qualita tiveOrdered By: Tree Crowe on 06-13-2024 Beta HCG ( test) Ql Negative [facility] Serum creatinine measurement (mass/volume)Ordered By: Tree Crowe on 06-13-2024 Creatinine [Mass/Vol] 0.62 mg/dL Low 0.70-1.20 [facility] Serum globulin measurementOr dered By: Tree Crowe on 06-13-2024 Globulin (S) [Mass/Vol] 3.7 g/dL 2.2-4.2 [facility] Serum glucose measurement (m ass/volume)Ordered By: Tree Crowe on 06-13-2024 Glucose [Mass/Vol] 103 mg/dL High 70-99 [facility] Serum or plasma alanine sheffield otransferase (ALT) measurementOrdered By: Tree Crowe on 06-13-2024 ALT [Catalytic activity/Vol] 9 U/L <35 [facility] Serum or plasma albumin riddhi urement (mass/volume)Ordered By: Tree Crowe on 06-13-2024 Albumin [Mass/Vol] 3.9 g/dL 3.5-5.0 [facility] Serum or plasma albumin/glob ulin mass ratioOrdered By: Tree Crowe on 06-13-2024 Albumin/Globulin [Mass ratio] 1.0 {ratio} 0.9-2.4 [facility] Serum or plasma alkaline sandra sphatase measurementOrdered By: Tree Crowe on 06-13-2024 ALP [Catalytic activity/Vol] 92 U/L 35-104 [facility] Serum or plasma calcium riddhi urement (mass/volume)Ordered By: Tree Crowe on 06-13-2024 Calcium [Mass/Vol] 9.0 mg/dL 7.6-11.0 [facility] Serum or plasma ethanol riddhi urement (mass/volume)Ordered By: Tree Crowe on 06-13-2024 Ethanol [Mass/Vol] mg/dL <10.1 [facility] Comment on above: Hemolysis Present, R esults may be affected.This test is for medical purposes only. The legal definition of intoxication varies according to local law. Serum or plasma urea nitroge n measurement (mass/volume)Ordered By: Tree Crowe on 06-13-2024 Urea nitrogen [Mass/Vol] 10 mg/dL 4-19 [facility] Sodium levelOrdered By: Tree Crowe on 06-13-2024 Sodium [Moles/Vol] 138 mmol/L 133-145 [facility] Total proteinOrdered By: Jason toledo Crowe on 06-13-2024 Protein [Mass/Vol] 7.6 g/dL 5.9-8.4 [facility] Urine Drug Screen (VISTA)on 06-13-2024 AMPHETAMINES Normal <1000 ng/mL [facility] Comment on above: Result Comment: [facility] DEPARTED [facility]. Performed By: #### L 700.6800, L500.4050, L501.9100, L100.0100, L505.5000 ####[facility] [address] [facility] [address] BARBITIURATES Normal < 200 ng/mL [facility] Comment on above: Result Comment: [facility] DEPARTED ER. Performed By: #### L 700.6800, L500.4050, L501.9100, L100.0100, L505.5000 ####[facility] [address] [place] [address] BENZODIAZIPINE Normal < 200 ng/mL [facility] Comment on above: Result Comment: [facility] DEPARTED ER. Performed By: #### L 700.6800, L500.4050, L501.9100, L100.0100, L505.5000 ####[facility] [address] [place] [address] BUP Ur Drug Scr Normal < 200 ng/mL [facility] Comment on above: Result Comment: [facility] DEPARTED ER. Performed By: #### L 700.6800, L500.4050, L501.9100, L100.0100, L505.5000 ####[facility] [address] [place] [address] COCAINE Normal < 300 ng/mL [facility] Comment on above: Result Comment: [facility] DEPARTED ER. Performed By: #### L 700.6800, L500.4050, L501.9100, L100.0100, L505.5000 ####[facility] [address] [place] [address] Fentanyl Normal [facility] Comment on above: Result Comment: [facility] DEPARTED ER. Performed By: #### L 700.6800, L500.4050, L501.9100, L100.0100, L505.5000 ####[facility] [address] [place], [address] METHADONE Normal < 300 ng/mL [facility] Comment on above: Result Comment: [facility] DEPARTED ER. Performed By: #### L 700.6800, L500.4050, L501.9100, L100.0100, L505.5000 ####[facility] [address] [place], [place], [phone] OPIATES Normal < 300 ng/mL [facility] Comment on above: Result Comment: OSAVLDO ENT DEPARTED ER. Performed By: #### L 700.6800, L500.4050, L501.9100, L100.0100, L505.5000 ####[facility] [address] [place] [address] OXYCODONE Normal < 100 ng/mL [facility] Comment on above: Result Comment: [facility] DEPARTED ER. Performed By: #### L 700.6800, L500.4050, L501.9100, L100.0100, L505.5000 ####[facility] [address] [place] [address] PCP Normal < 25 ng/mL [facility] Comment on above: Result Comment: [facility] DEPARTED ER. Performed By: #### L 700.6800, L500.4050, L501.9100, L100.0100, L505.5000 ####[facility] [address] [place], [address] THC Normal < 50 ng/mL [facility] Comment on above: Result Comment: [facility] DEPARTED ER. Performed By: #### L 700.6800, L500.4050, L501.9100, L100.0100, L505.5000 ####[facility] [address] [place], [address] White blood cell (WBC) count Ordered By: Tree Crowe on 06-13-2024 WBC (Bld) [#/Vol] 7.4 10*3/uL 4.4-11.0 [facility] Absolute lymphocyte countOrd ered By: Filippo Fuentes on 06-02-2024 Lymphocytes Auto (Unsp spec) [#/Vol] 2.78 10*3/uL 0.83-4.51 [facility] Absolute neutrophil countOrd ered By: Filippo Fuentes on 06-02-2024 Neutrophils (Bld) [#/Vol] 5.9 10*3/uL 2.0-7.7 [facility] Amphetamine detection with 1 000 ng/mL as cutoffOrdered By: Filippo Fuentes on 06-02-2024 Amphetamines Screen method >1000 ng/mL Ql (U) Positive <1000 ng/mL [facility] Comment on above: If confirmation test ing is needed, a separate order will be required to send out testing to the reference laboratory. Amphetamines Screen method >1000 ng/mL Ql (U) Negative < 200 ng/mL [facility] Amphetamines Screen method > 1000 ng/mL Ql (U)Ordered By: Filippo Fuentes on 06-02-2024 Amphetamines Ql (U) Positive <1000 ng/mL [facility] Comment on above: If confirmation test ing is needed, a separate order will be required to send out testing to the reference laboratory. Urine Barbiturates Screen Negative < 200 ng/mL [facility] Automated lymphocyte count a s percentage of total leukocytesOrdered By: Filippo Fuentes on 06-02-2024 Lymphocytes/100 WBC Auto (Unsp spec) 29.6 % 19-41 [facility] Basophil percentageOrdered B y: Filippo Fuentes on 06-02-2024 Basophils/100 WBC (Bld) 0.3 % 0-1 [facility] Bilirubin Test strip Ql (U)O rdered By: Filippo Fuentes on 06-02-2024 Bilirubin Ql (U) 1 mg/dL High Negative [facility] Comment on above: COLOR OF URINE MAY A FFECT DIPSTICK RESULTS. CBC W/Diff, Automatedon 04-2 0-2024 Absolute Lymph 2.78 X10 3/uL Normal 0.83-4.51 [facility] Comment on above: Performed By: #### L 500.4050, L700.6800, L505.5000, L100.0100 ####[facility] [address] [place], [address] Absolute Neut 5.9 X10 3/uL Normal 2.0-7.7 [facility] Comment on above: Performed By: #### L 500.4050, L700.6800, L505.5000, L100.0100 ####[facility] [address] [place], [address] Basophils/100 WBC (Bld) 0.3 % Normal 0-1 [facility] Comment on above: Performed By: #### L 500.4050, L700.6800, L505.5000, L100.0100 ####[facility] [address] [place], [address] Eosinophils/100 WBC (Bld) 0.1 % Normal 0-5 [facility] Comment on above: Performed By: #### L 500.4050, L700.6800, L505.5000, L100.0100 ####[facility] [address] [place], [address] Erythrocyte distribution width (RBC) [Ratio] 13.5 % Normal 11.6-14.6 [facility] Comment on above: Performed By: #### L 500.4050, L700.6800, L505.5000, L100.0100 ####[facility] [address] [place], [address] Hematocrit (Bld) [Volume fraction] 47.4 % High 37-47 [facility] Comment on above: Performed By: #### L 500.4050, L700.6800, L505.5000, L100.0100 ####[facility] [address] [place], [address] Hemoglobin (Bld) [Mass/Vol] 15.8 g/dL High 12.0-15. 0 [facility] Comment on above: Performed By: #### L 500.4050, L700.6800, L505.5000, L100.0100 ####[facility] [address] [place], [address] IG% 0.100 Normal 0.0-0.9 [facility] Comment on above: Result Comment: IG% - Immature Granulocytes (promyelocytes, myelocytes andmetamyelocytes) > 1% indicates that a LEFT SHIFT is Present. Performed By: #### L 500.4050, L700.6800, L505.5000, L100.0100 ####[facility] [address] [place], [address] Lymphocytes/100 WBC (Bld) 29.6 % Normal 19-41 [facility] Comment on above: Performed By: #### L 500.4050, L700.6800, L505.5000, L100.0100 ####[facility] [address] [place], [address] MCH (RBC) [Entitic mass] 31.9 pg Normal 27.0-32.0 [facility] Comment on above: Performed By: #### L 500.4050, L700.6800, L505.5000, L100.0100 ####[facility] [address] [place], [address] MCHC (RBC) [Mass/Vol] 33.3 g/dL Normal 32-36 [facility] Comment on above: Performed By: #### L 500.4050, L700.6800, L505.5000, L100.0100 ####[facility] [address] [place], [address] MCV (RBC) [Entitic vol] 95.8 fL Normal 81-99 [facility] Comment on above: Performed By: #### L 500.4050, L700.6800, L505.5000, L100.0100 ####[facility] [address] [place], [address] Monocytes/100 WBC (Bld) 6.9 % Normal 0-10 [facility] Comment on above: Performed By: #### L 500.4050, L700.6800, L505.5000, L100.0100 ####[facility] [address] [place], [address] Neutrophils/100 WBC (Bld) 63.0 % Normal 47-70 [facility] Comment on above: Performed By: #### L 500.4050, L700.6800, L505.5000, L100.0100 ####[facility] [address] [place], [address] Nucleated RBC (Bld) [#/Vol] 0 10*3/uL Normal 0-5 [facility] Comment on above: Performed By: #### L 500.4050, L700.6800, L505.5000, L100.0100 ####[facility] [address] [place], [address] Platelet mean volume (Bld) [Entitic vol] 9.5 fL Normal 6.2-12.0 [facility] Comment on above: Performed By: #### L 500.4050, L700.6800, L505.5000, L100.0100 ####[facility] [address] [place], [address] Platelets (Bld) [#/Vol] 319 10*3/uL Normal 150-450 [facility] Comment on above: Performed By: #### L 500.4050, L700.6800, L505.5000, L100.0100 ####[facility] [address] [place], [address] RBC (Bld) [#/Vol] 4.95 10*6/uL Normal 4.2-5.4 [facility] Comment on above: Performed By: #### L 500.4050, L700.6800, L505.5000, L100.0100 ####[facility] [address] [place], [address] RDW SD 47.1 fl High 35.1-43.9 [facility] Comment on above: Performed By: #### L 500.4050, L700.6800, L505.5000, L100.0100 ####[facility] [address] [place], [address] WBC (Bld) [#/Vol] 9.4 10*3/uL Normal 4.4-11.0 [facility] Comment on above: Performed By: #### L 500.4050, L700.6800, L505.5000, L100.0100 ####[facility] [address] [place], [address] Comprehensive Metabolic Prof ilon 06-02-2024 ALB Normal 3.5-5.0 [facility] Comment on above: Result Comment: This specimen has been REJECTED due to Laboratory criteria:Hemolyzed.ED STAFF has been notified of need of recollection.06/02/24 1447 Mary Reagan Performed By: #### L 500.4050, L700.6800, L505.5000, L100.0100 ####[facility] [address] [place], [address] ALK PHOS Normal 35-104 [facility] Comment on above: Result Comment: This specimen has been REJECTED due to Laboratory criteria:Hemolyzed.ED STAFF has been notified of need of recollection.06/02/241446 Mary R Stoner Performed By: #### L 500.4050, L700.6800, L505.5000, L100.0100 ####[facility] [address] [place], [address] ALT Normal <=34 [facility] Comment on above: Result Comment: This specimen has been REJECTED due to Laboratory criteria:Hemolyzed.ED STAFF has been notified of need of recollection.06/02/241446 Mary R Stoner Performed By: #### L 500.4050, L700.6800, L505.5000, L100.0100 ####[facility] [address] [place], [address] AST Normal <=31 [facility] Comment on above: Result Comment: This specimen has been REJECTED due to Laboratory criteria:Hemolyzed.ED STAFF has been notified of need of recollection.06/02/241446 Mary R Stoner Performed By: #### L 500.4050, L700.6800, L505.5000, L100.0100 ####[facility] [address] [place], [address] BUN Normal 4-19 [facility] Comment on above: Result Comment: This specimen has been REJECTED due to Laboratory criteria:Hemolyzed.ED STAFF has been notified of need of recollection.06/02/241446 Mary R Stoner Performed By: #### L 500.4050, L700.6800, L505.5000, L100.0100 ####[facility] [address] [place], [address] BUN/CRE Normal 10-20 [facility] Comment on above: Result Comment: This specimen has been REJECTED due to Laboratory criteria:Hemolyzed.ED STAFF has been notified of need of recollection.06/02/241446 Mary R Stoner Performed By: #### L 500.4050, L700.6800, L505.5000, L100.0100 ####[facility] [address] [place], [address] Calcium Normal 7.6-11.0 [facility] Comment on above: Result Comment: This specimen has been REJECTED due to Laboratory criteria:Hemolyzed.ED STAFF has been notified of need of recollection.06/02/241446 Mary R Stoner Performed By: #### L 500.4050, L700.6800, L505.5000, L100.0100 ####[facility] [address] [place], [address] CL Normal 98-108 [facility] Comment on above: Result Comment: This specimen has been REJECTED due to Laboratory criteria:Hemolyzed.ED STAFF has been notified of need of recollection.06/02/241446 Mary R Stoner Performed By: #### L 500.4050, L700.6800, L505.5000, L100.0100 ####[facility] [address] [place], [address] CO2 Normal 21.0-32.0 [facility] Comment on above: Result Comment: This specimen has been REJECTED due to Laboratory criteria:Hemolyzed.ED STAFF has been notified of need of recollection.06/02/241446 Mary R Stoner Performed By: #### L 500.4050, L700.6800, L505.5000, L100.0100 ####[facility] [address] [place], [address] CREAT,SERUM Normal 0.70-1.20 [facility] Comment on above: Result Comment: This specimen has been REJECTED due to Laboratory criteria:Hemolyzed.ED STAFF has been notified of need of recollection.06/02/241446 Mary R Stoner Performed By: #### L 500.4050, L700.6800, L505.5000, L100.0100 ####[facility] [address] [place], [address] eGFR Normal >60 [facility] Comment on above: Result Comment: This specimen has been REJECTED due to Laboratory criteria:Hemolyzed.ED STAFF has been notified of need of recollection.06/02/247 Mary R Stoner Performed By: #### L 500.4050, L700.6800, L505.5000, L100.0100 ####[facility] [address] [place], [address] GAP Normal 5-15 [facility] Comment on above: Result Comment: This specimen has been REJECTED due to Laboratory criteria:Hemolyzed.ED STAFF has been notified of need of recollection.06/02/241446 Mary R Stoner Performed By: #### L 500.4050, L700.6800, L505.5000, L100.0100 ####[facility] [address] [place], [address] GLU Normal 70-99 [facility] Comment on above: Result Comment: This specimen has been REJECTED due to Laboratory criteria:Hemolyzed.ED STAFF has been notified of need of recollection.06/02/241446 Mary R Stoner Performed By: #### L 500.4050, L700.6800, L505.5000, L100.0100 ####[facility] [address] [place], [address] Potassium Normal 3.3-5.1 [facility] Comment on above: Result Comment: This specimen has been REJECTED due to Laboratory criteria:Hemolyzed.ED STAFF has been notified of need of recollection.06/02/241446 Mary R Stoner Performed By: #### L 500.4050, L700.6800, L505.5000, L100.0100 ####[facility] [address] [place], [address] T BILI Normal 0.00-1.30 [facility] Comment on above: Result Comment: This specimen has been REJECTED due to Laboratory criteria:Hemolyzed.ED STAFF has been notified of need of recollection.06/02/241446 Mary R Stoner Performed By: #### L 500.4050, L700.6800, L505.5000, L100.0100 ####[facility] [address] [place], [address] T PROT Normal 5.9-8.4 [facility] Comment on above: Result Comment: This specimen has been REJECTED due to Laboratory criteria:Hemolyzed.ED STAFF has been notified of need of recollection.06/02/241446 Mary R Stoner Performed By: #### L 500.4050, L700.6800, L505.5000, L100.0100 ####[facility] [address] [place], [address] Comprehensive Metabolic Profil Normal 133-145 [facility] Comment on above: Result Comment: This specimen has been REJECTED due to Laboratory criteria:Hemolyzed.ED STAFF has been notified of need of recollection.06/02/241446 Mary R Stoner Performed By: #### L 500.4050, L700.6800, L505.5000, L100.0100 ####[facility] [address] [place], [address] ALB Normal 3.5-5.0 [facility] Comment on above: Order Comment: REDRA W. PREVIOUS SPECIMEN REJECTED DUE TOSPECIMEN BEING HEMOLYZED. 06/02/24 1448 Mary Metzr. Result Comment: [facility] E[facility] DEPARTED ER. Performed By: #### L 500.4050 ####[facility] [address] [place], [address] ALK PHOS Normal 35-104 [facility] Comment on above: Order Comment: REDRA W. PREVIOUS SPECIMEN REJECTED DUE TOSPECIMEN BEING HEMOLYZED. 06/02/241447 Mary R Stoner. Result Comment: OSVALDO ENT DEPARTED ER. Performed By: #### L 500.4050 ####[facility] [address] [place], [address] ALT Normal <=34 [facility] Comment on above: Order Comment: REDRA W. PREVIOUS SPECIMEN REJECTED DUE TOSPECIMEN BEING HEMOLYZED. 06/02/24 1448 Mary R Stoner. Result Comment: OSVALDO ENT DEPARTED ER. Performed By: #### L 500.4050 ####[facility] [address] [place], [address] AST Normal <=31 [facility] Comment on above: Order Comment: REDRA W. PREVIOUS SPECIMEN REJECTED DUE TOSPECIMEN BEING HEMOLYZED. 06/02/24 1448 Mary R Stoner. Result Comment: OSVALDO ENT DEPARTED ER. Performed By: #### L 500.4050 ####[facility] [address] [place], [address] BUN Normal 4-19 [facility] Comment on above: Order Comment: REDRA W. PREVIOUS SPECIMEN REJECTED DUE TOSPECIMEN BEING HEMOLYZED. 06/02/24 1448 Mary R Stoner. Result Comment: OSVALDO ENT DEPARTED ER. Performed By: #### L 500.4050 ####[facility] [address] [place], [address] BUN/CRE Normal 10-20 [facility] Comment on above: Order Comment: REDRA W. PREVIOUS SPECIMEN REJECTED DUE TOSPECIMEN BEING HEMOLYZED. 06/02/24 1448 Mary R Stoner. Result Comment: OSVALDO ENT DEPARTED ER. Performed By: #### L 500.4050 ####[facility] [address] [place], [address] Calcium Normal 7.6-11.0 [facility] Comment on above: Order Comment: REDRA W. PREVIOUS SPECIMEN REJECTED DUE TOSPECIMEN BEING HEMOLYZED. 06/02/24 1448 Mary R Stoner. Result Comment: OSVALDO ENT DEPARTED ER. Performed By: #### L 500.4050 ####[facility] [address] [place], [address] CL Normal 98-108 [facility] Comment on above: Order Comment: REDRA W. PREVIOUS SPECIMEN REJECTED DUE TOSPECIMEN BEING HEMOLYZED. 06/02/24 1448 Mary Metzr. Result Comment: OSVALDO ENT DEPARTED ER. Performed By: #### L 500.4050 ####[facility] [address] [place], [address] CO2 Normal 21.0-32.0 [facility] Comment on above: Order Comment: REDRA W. PREVIOUS SPECIMEN REJECTED DUE TOSPECIMEN BEING HEMOLYZED. 06/02/24 1448 Mary Metzr. Result Comment: OSVALDO ENT DEPARTED ER. Performed By: #### L 500.4050 ####[facility] [address] [place], [address] CREAT,SERUM Normal 0.70-1.20 [facility] Comment on above: Order Comment: REDRA W. PREVIOUS SPECIMEN REJECTED DUE TOSPECIMEN BEING HEMOLYZED. 06/02/24 1448 Mary Metzr. Result Comment: OSVALDO ENT DEPARTED ER. Performed By: #### L 500.4050 ####[facility] [address] [place], [address] eGFR Normal >60 [facility] Comment on above: Order Comment: REDRA W. PREVIOUS SPECIMEN REJECTED DUE TOSPECIMEN BEING HEMOLYZED. 06/02/24 1448 Mary Metzr. Result Comment: OSVALDO ENT DEPARTED ER. Performed By: #### L 500.4050 ####[facility] [address] [place], [address] GAP Normal 5-15 [facility] Comment on above: Order Comment: REDRA W. PREVIOUS SPECIMEN REJECTED DUE TOSPECIMEN BEING HEMOLYZED. 06/02/24 1448 Mary Metzr. Result Comment: OSVALDO ENT DEPARTED ER. Performed By: #### L 500.4050 ####[facility] [address] [place], [address] GLU Normal 70-99 [facility] Comment on above: Order Comment: REDRA W. PREVIOUS SPECIMEN REJECTED DUE TOSPECIMEN BEING HEMOLYZED. 06/02/24 1448 Mary Metzr. Result Comment: OSVALDO ENT DEPARTED ER. Performed By: #### L 500.4050 ####[facility] [address] [place], [address] Potassium Normal 3.3-5.1 [facility] Comment on above: Order Comment: REDRA W. PREVIOUS SPECIMEN REJECTED DUE TOSPECIMEN BEING HEMOLYZED. 06/02/24 1448 Mary Metzr. Result Comment: OSVALDO ENT DEPARTED ER. Performed By: #### L 500.4050 ####[facility] [address] [place], [address] T BILI Normal 0.00-1.30 [facility] Comment on above: Order Comment: REDRA W. PREVIOUS SPECIMEN REJECTED DUE TOSPECIMEN BEING HEMOLYZED. 06/02/24 1448 Mary Metzr. Result Comment: OSVALDO ENT DEPARTED ER. Performed By: #### L 500.4050 ####[facility] [address] [place], [address] T PROT Normal 5.9-8.4 [facility] Comment on above: Order Comment: REDRA W. PREVIOUS SPECIMEN REJECTED DUE TOSPECIMEN BEING HEMOLYZED. 06/02/24 1448 Mary Metzr. Result Comment: OSVALDO ENT DEPARTED ER. Performed By: #### L 500.4050 ####[facility] [address] [place], [address] Comprehensive Metabolic Profil Normal 133-145 [facility] Comment on above: Order Comment: REDRA W. PREVIOUS SPECIMEN REJECTED DUE TOSPECIMEN BEING HEMOLYZED. 06/02/24 1448 Mary Metzr. Result Comment: OSVALDO ENT DEPARTED ER. Performed By: #### L 500.4050 ####[facility] [address] [place], [address] Emergency Department Summary on 06-02-2024 Emergency Department Summary Normal [facility] Eosinophil percentageOrdered By: Filippobelinda Fuentes on 06-02-2024 Eosinophils/100 WBC (Bld) 0.1 % 0-5 [facility] Epithelial cells.squamous LM Ql (Urine sed)Ordered By: Filippo Fuentes on 06-02-2024 Epithelial cells.squamous LM.HPF (Urine sed) [#/Area] 0 /[HPF] 5-10 [facility] Erythrocyte distribution wid th (RBC) [Ratio]Ordered By: Filippobelinda Fuentes on 06-02-2024 Erythrocyte distribution width (RBC) [Entitic vol] 47.1 fL High 35.1-43.9 [facility] Erythrocyte distribution wid th ratioOrdered By: Filippobelinda Fuentes on 06-02-2024 Erythrocyte distribution width (RBC) [Ratio] 13.5 % 11.6-14.6 [facility] Erythrocyte distribution wid th standard deviationOrdered By: Filippobelinda Fuentes on 06-02-2024 Erythrocyte distribution width (RBC) [Ratio] 47.1 fl High 35.1-43.9 [facility] Glucose Ql (U)Ordered By: Mike Fuentes on 06-02-2024 Urine Glucose (UA) Normal mg/dl Normal [facility] Hematocrit Auto (Bld) [Volum e fraction]Ordered By: Filippobelinda Fuentes on 06-02-2024 Hematocrit (Bld) [Volume fraction] 47.4 % High 37-47 [facility] Hemoglobin measurementOrdere d By: Filippo Fuentes on 06-02-2024 Hemoglobin (Bld) [Mass/Vol] 15.8 g/dL High 12.0-15. 0 [facility] Immature granulocytes/100 WB C Auto (Bld)Ordered By: Filippobelinda Fuentes on 06-02-2024 Immature granulocytes/100 WBC (Bld) 0.100 % 0.0-0.9 [facility] Comment on above: IG% - Immature Granu locytes (promyelocytes, myelocytes and metamyelocytes) > 1% indicates that a LEFT SHIFT is Present. Ketones Test strip Ql (U)Ord ered By: Filippo Fuentes on 06-02-2024 Ketones Ql (U) 15 mg/dl High Negative [facility] Lymphocytes Auto (Unsp spec) [#/Vol]Ordered By: Filippo Fuentes on 06-02-2024 Lymphocytes (Bld) [#/Vol] 2.78 10*3/uL 0.83-4.5 1 [facility] Lymphocytes/100 WBC Auto (Un sp spec)Ordered By: Filippo Fuentes on 06-02-2024 Lymphocytes/100 WBC (Bld) 29.6 % 19-41 [facility] MCV (mean corpuscular volume ) determinationOrdered By: Filippo Fuentes on 06-02-2024 MCV (RBC) [Entitic vol] 95.8 fL 81-99 [facility] Mean corpuscular hemoglobin (MCH) determinationOrdered By: Filippobelinda Fuentes on 06-02-2024 MCH (RBC) [Entitic mass] 31.9 pg 27.0-32.0 [facility] Mean corpuscular hemoglobin concentration (MCHC) determinationOrdered By: Filippo Fuentes on 06-02-2024 MCHC (RBC) [Mass/Vol] 33.3 g/dL 32-36 [facility] Mean platelet volume determi nationOrdered By: Filippo Fuentes on 06-02-2024 Platelet mean volume (Bld) [Entitic vol] 9.5 fL 6.2-12.0 [facility] Methadone, urineOrdered By: Filippo Fuentes on 06-02-2024 Urine Methadone Screen Negative < 300 ng/mL [facility] Microscopic analysis of urin e for red blood cells (RBC)Ordered By: Filippo Fuentes on 06-02-2024 Microscopic analysis of urine for red blood cells (RBC) 0 SEEN /hpf 0-5 [facility] Urine RBC 0 SEEN /hpf 0-5 [facility] Monocyte percentageOrdered B y: Filippo Fuentes on 06-02-2024 Monocytes/100 WBC (Bld) 6.9 % 0-10 [facility] Mucus LM Ql (Urine sed)Order ed By: Filippo Fuentes on 06-02-2024 Mucus Ql (Urine sed) 1+ /hpf [facility] Neutrophil percentageOrdered By: Filippo Fuentes on 06-02-2024 Neutrophils/100 WBC (Bld) 63.0 % 47-70 [facility] Nitrite Test strip Ql (U)Ord ered By: Filippo Fuentes on 06-02-2024 Nitrite Ql (U) Negative Negative [facility] No Panel InformationOrdered By: Filippo Fuentes on 06-02-2024 Urine Buprenorphine Qualitative Negative < 200 ng/mL [facility] Urine Oxycodone Screen Negative < 100 ng/mL [facility] Nucleated red blood cell per centageOrdered By: Filippo Fuentes on 06-02-2024 Nucleated RBC/100 WBC (Bld) [Ratio] 0 % 0-5 [facility] Platelet countOrdered By: Mike Fuentes on 06-02-2024 Platelets (Bld) [#/Vol] 319 10*3/uL 150-450 [facility] ,Serum,hCG Quali.on 06-02-2024 HCG, SERUM QUAL Normal [facility] Comment on above: Result Comment: OSVALDO ENT DEPARTED ER. Performed By: #### L 500.4050, L700.6800, L505.5000, L100.0100 ####[facility] [address] [place], [place], [id number] INTERNAL QC OK? Normal [facility] Comment on above: Result Comment: OSVALDO ENT DEPARTED ER. Performed By: #### L 500.4050, L700.6800, L505.5000, L100.0100 ####[facility] [address] [place], [address] RECORD KIT LOT# [facility] Comment on above: Result Comment: OSVALDO ENT DEPARTED ER. Performed By: #### L 500.4050, L700.6800, L505.5000, L100.0100 ####[facility] [address] [place], [place], [id number] ,Urineon 06-02-2024 Beta HCG ( test) Ql (U) Negative Normal [facility] Comment on above: Result Comment: Very dilute urine specimens, as indicated by a low specificgravity, may not contain customer success representative levels of hCG.If is still suspected, a first morning urinespecimen should be collected 48 hours later and tested. Performed By: #### L 400.0001, L400.7600 ####[facility] [address] [place], [address] Protein Test strip Ql (U)Ord ered By: Filippo Fuentes on 06-02-2024 Protein Ql (U) 30 mg/dl High Negative [facility] Quantitative urine opiates m easurementOrdered By: Filippo Fuentes on 06-02-2024 Opiates Ql (U) Negative < 300 ng/mL [facility] RBC Auto (Bld) [#/Vol]Ordere d By: Filippo Fuentes on 06-02-2024 RBC (Bld) [#/Vol] 4.95 10*6/uL 4.2-5.4 [facility] Screening urine fentanyl suzette surementOrdered By: Filippo Fuentes on 06-02-2024 fentaNYL Screen Ql (U) Negative [facility] Squamous epithelial cells de tection in urine sediment by light microscopyOrdered By: Filippo Fuentes on 06-02-2024 Epithelial cells.squamous LM Ql (Urine sed) 0-5 SEEN /hpf 5-10 [facility] Urinalysis, Completeon 06-02 EPI,SQUAMOUS 0-5 SEEN Normal 5-10 [facility] Comment on above: Order Comment: CLEAN CATCH Performed By: #### L 400.0001, L400.7600 ####[facility] [address] [place], [address] Mucus Ql (Urine sed) 1+ /hpf Normal [facility] Comment on above: Order Comment: CLEAN CATCH Performed By: #### L 400.0001, L400.7600 ####[facility] [address] [place], [address] WBC 0-5 SEEN Normal 0-5 [facility] Comment on above: Order Comment: CLEAN CATCH Performed By: #### L 400.0001, L400.7600 ####[facility] [address] [place], [address] BACTERIA 0 SEEN Normal None Seen [facility] Comment on above: Order Comment: CLEAN CATCH Performed By: #### L 400.0001, L400.7600 ####[facility] [address] [place], [address] RBC 0 SEEN Normal 0-5 [facility] Comment on above: Order Comment: CLEAN CATCH Performed By: #### L 400.0001, L400.7600 ####[facility] [address] [place], [address] Urine Drug Screen (VISTA)on 06-02-2024 AMPHETAMINES Positive Normal <1000 ng/mL [facility] Comment on above: Order Comment: UNK Result Comment: If c onfirmation testing is needed, a separate order will berequired to send out testing to the reference laboratory. Performed By: #### L 500.4050, L700.6800, L505.5000, L100.0100 ####[facility] [address] [place], [address] BARBITIURATES Negative Normal < 200 ng/mL [facility] Comment on above: Order Comment: UNK Performed By: #### L 500.4050, L700.6800, L505.5000, L100.0100 ####[facility] [address] [place], [address] BENZODIAZIPINE Negative Normal < 200 ng/mL [facility] Comment on above: Order Comment: UNK Performed By: #### L 500.4050, L700.6800, L505.5000, L100.0100 ####[facility] [address] [place], [address] BUP Ur Drug Scr Negative Normal < 200 ng/mL [facility] Comment on above: Order Comment: UNK Performed By: #### L 500.4050, L700.6800, L505.5000, L100.0100 ####[facility] [address] [place], [address] COCAINE Negative Normal < 300 ng/mL [facility] Comment on above: Order Comment: UNK Performed By: #### L 500.4050, L700.6800, L505.5000, L100.0100 ####[facility] [address] [place], [address] Fentanyl Negative Normal [facility] Comment on above: Order Comment: UNK Performed By: #### L 500.4050, L700.6800, L505.5000, L100.0100 ####[facility] [address] [place], [address] METHADONE Negative Normal < 300 ng/mL [facility] Comment on above: Order Comment: UNK Performed By: #### L 500.4050, L700.6800, L505.5000, L100.0100 ####[facility] [address] [place], [address] OPIATES Negative Normal < 300 ng/mL [facility] Comment on above: Order Comment: UNK Performed By: #### L 500.4050, L700.6800, L505.5000, L100.0100 ####[facility] [address] [place], [address] OXYCODONE Negative Normal < 100 ng/mL [facility] Comment on above: Order Comment: UNK Performed By: #### L 500.4050, L700.6800, L505.5000, L100.0100 ####[facility] [address] [place], [address] PCP Negative Normal < 25 ng/mL [facility] Comment on above: Order Comment: UNK Performed By: #### L 500.4050, L700.6800, L505.5000, L100.0100 ####[facility] [address] [place], [address] THC Positive Normal < 50 ng/mL [facility] Comment on above: Order Comment: UNK Result Comment: If c onfirmation testing is needed, a separate order will berequired to send out testing to the reference laboratory. Performed By: #### L 500.4050, L700.6800, L505.5000, L100.0100 ####[facility] [address] [place], [address] Urine benzodiazepine levelOr dered By: Filippo Fuentes on 06-02-2024 Benzodiazepines Ql (U) Negative < 200 ng/mL [facility] Urine blood detectionOrdered By: Filippo Fuentes on 06-02-2024 Urine Occult Blood Negative Negative [facility] Urine clarityOrdered By: Filippo Fuentes on 06-02-2024 Clarity (U) Clear Clear [facility] Urine cocaine levelOrdered B y: Filippo Fuentes on 06-02-2024 Cocaine Ql (U) Negative < 300 ng/mL [facility] Urine color determinationOrd ered By: Filippo Fuentes on 06-02-2024 Color (U) Yellow Yellow [facility] Urine nonja-8-gowyiepewkaywg abinol (THC) measurementOrdered By: Filippo Fuentes on 06-02-2024 Cannabinoids Screen Ql (U) Positive < 50 ng/m L [facility] Comment on above: If confirmation test ing is needed, a separate order will be required to send out testing to the reference laboratory. Urine glucose detectionOrder ed By: Filippo Fuentes on 06-02-2024 Glucose Ql (U) Normal mg/dl Normal [facility] Urine leukocyte esterase det ection by dipstickOrdered By: Filippo Fuentes on 06-02-2024 Leukocyte esterase Test strip Ql (U) 25 /ul High Negative [facility] Urine pHOrdered By: Filippo trevino on 06-02-2024 pH (U) 6.5 [pH] 5.0 - 8.0 [facility] Urine phencyclidine (PCP) de tectionOrdered By: Filippo Fuentes on 06-02-2024 Phencyclidine Ql (U) Negative < 25 ng/mL [facility] Urine testOrdered By: Filippo Fuentes on 06-02-2024 HCG ( test) Ql (U) Negative [facility] Comment on above: Very dilute urine sp ecimens, as indicated by a low specificgravity, may not contain customer success representative levels of hCG. If is still suspected, a first morning urinespecimen should be collected 48 hours later and tested. Urine sediment bacteria coun t by microscopy (number/high power field)Ordered By: Filippo Fuentes on 06-02-2024 Bacteria LM.HPF (Urine sed) [#/Area] 0 /[HPF] None Seen [facility] Urine specific gravity measu rementOrdered By: Filippo Fuentes on 06-02-2024 Specific gravity (U) [Rel density] 1.020 1.002-1.03 0 [facility] Urine urobilinogen measureme ntOrdered By: Filippo Fuentes on 06-02-2024 Urobilinogen Ql (U) 1 mg/dl High Normal [facility] Urobilinogen Ql (U)Ordered B y: Filippo Fuentes on 06-02-2024 Urobilinogen (U) [Mass/Vol] 1 mg/dL High Normal [facility] White blood cell (WBC) count Ordered By: Filippo Fuentes on 06-02-2024 WBC (Bld) [#/Vol] 9.4 10*3/uL 4.4-11.0 [facility] White blood cell countOrdere d By: Filippo Fuentes on 06-02-2024 Urine WBC 0-5 SEEN /hpf 0-5 [facility] White blood cell count 0-5 SEEN /hpf 0-5 [facility] fentaNYL Screen Ql (U)Ordere d By: Filippo Fuentes on 06-02-2024 Urine Fentanyl Screen Negative [facility] Emergency Department Summary on 05-05-2024 Emergency Department Summary Normal [facility] Beta HCG ( test) Ql Ordered By: Amari Nicholas on 04-28-2024 Serum Test, Qualitative Negative [facility] Emergency Department Summary on 04-28-2024 Emergency Department Summary Normal [facility] ,Serum,hCG Quali.on 04-28-2024 HCG, SERUM QUAL Negative Normal [facility] Comment on above: Performed By: #### L 700.6800 ####[facility] [address] [place], [address] Serum beta-hCG test, qualita tiveOrdered By: Amari Nicohlas on 04-28-2024 Beta HCG ( test) Ql Negative [facility] Emergency Department Summary on 04-25-2024 Emergency Department Summary Normal [facility] Absolute lymphocyte countOrd ered By: Patti Antunez on 03-23-2024 Lymphocytes Auto (Unsp spec) [#/Vol] 1.11 10*3/uL 0.83-4.51 [facility] Absolute neutrophil countOrd ered By: Patti Antunez on 03-23-2024 Neutrophils (Bld) [#/Vol] 13.1 10*3/uL High 2.0-7.7 [facility] Alcohol, Blood (Medical)-Ser umon 03-23-2024 SERUM ETOH < 3.0 Normal [facility] Comment on above: Result Comment: The serum:whole blood ethanol ratio is approximately 1.14and varies slightly with hematocrit.Medical Alcohol reference interval and critical value innon-tolerant individuals; 50 - 100 Impairment 100 Intoxication 100 - 250 Severe Poisoning 250 - 400 Deep/possible fatal coma Performed By: #### L 700.6800, L100.0100, L500.2500, L501.9100, L505.5000 ####[facility] [address] [place], [place], [id number] Automated lymphocyte count a s percentage of total leukocytesOrdered By: Patti Antunez on 03-23-2024 Lymphocytes/100 WBC Auto (Unsp spec) 7.3 % Low 19-41 [facility] Basic Metabolic Profile (BMP )on 03-23-2024 BUN/CRE 9.8 RATIO Low 10-20 [facility] Comment on above: Performed By: #### L 700.6800, L100.0100, L500.2500, L501.9100, L505.5000 ####[facility] [address] [place], [address] CA,Total 9.6 mg/dL Normal 8.5-10.1 [facility] Comment on above: Performed By: #### L 700.6800, L100.0100, L500.2500, L501.9100, L505.5000 ####[facility] [address] [place], [address] Chloride [Moles/Vol] 104 mmol/L Normal 98-107 [facility] Comment on above: Performed By: #### L 700.6800, L100.0100, L500.2500, L501.9100, L505.5000 ####[facility] [address] [place], [address] CO2 [Moles/Vol] 21.0 mmol/L Normal 21.0-32.0 [facility] Comment on above: Performed By: #### L 700.6800, L100.0100, L500.2500, L501.9100, L505.5000 ####[facility] [address] [place], [address] Creatinine [Mass/Vol] 0.82 mg/dL Normal 0.55-1.02 [facility] Comment on above: Result Comment: The validity of the calculated GFR GFRAA in patients over70 years has not been determined. Clinical correlation isessential. Performed By: #### L 700.6800, L100.0100, L500.2500, L501.9100, L505.5000 ####[facility] [address] [place], [address] EST GFR - AA 110 mL/min Normal >60 [facility] Comment on above: Result Comment: Afri can Finnish GFR Calc Performed By: #### L 700.6800, L100.0100, L500.2500, L501.9100, L505.5000 ####[facility] [address] [place], [address] GAP 13 Normal 5-15 [facility] Comment on above: Performed By: #### L 700.6800, L100.0100, L500.2500, L501.9100, L505.5000 ####[facility] [address] [place], [address] GFR/1.73 sq M.predicted among non-blacks MDRD (S/P/Bld) [Vol rate/Area] 91 mL/min/{1.73_m2} Normal >60 [facility] Comment on above: Result Comment: Non- GFR Calc Performed By: #### L 700.6800, L100.0100, L500.2500, L501.9100, L505.5000 ####[facility] [address] [place], [address] Glucose [Mass/Vol] 106 mg/dL Normal 74-106 [facility] Comment on above: Result Comment: Fast ing Glucose result from 100 to 125 mg/dLsuggests IMPAIRED HOMEOSTASIS per A.D.A. criteria. Performed By: #### L 700.6800, L100.0100, L500.2500, L501.9100, L505.5000 ####[facility] [address] [place], [address] Potassium [Moles/Vol] 3.0 mmol/L Low 3.5-5.1 [facility] Comment on above: Performed By: #### L 700.6800, L100.0100, L500.2500, L501.9100, L505.5000 ####[facility] [address] [place], [address] Sodium [Moles/Vol] 138 mmol/L Normal 136-145 [facility] Comment on above: Performed By: #### L 700.6800, L100.0100, L500.2500, L501.9100, L505.5000 ####[facility] [address] [place], [address] Urea nitrogen [Mass/Vol] 8 mg/dL Normal 7-18 [facility] Comment on above: Performed By: #### L 700.6800, L100.0100, L500.2500, L501.9100, L505.5000 ####[facility] [address] [place], [address] Basophil percentageOrdered B y: Patti Antunez on 03-23-2024 Basophils/100 WBC (Bld) 0.3 % 0-1 [facility] Beta HCG ( test) Ql Ordered By: Patti Antunez on 03-23-2024 Serum Test, Qualitative Negative [facility] Blood urea nitrogen (BUN)/cr eatinine ratioOrdered By: Patti Antunez on 03-23-2024 Urea nitrogen/Creatinine [Mass ratio] 9.8 mg/mg Low 10-20 [facility] CBC W/Diff, Automatedon Absolute Lymph 1.11 X10 3/uL Normal 0.83-4.51 [facility] Comment on above: Performed By: #### L 700.6800, L100.0100, L500.2500, L501.9100, L505.5000 ####[facility] [address] [place], [address] Absolute Neut 13.1 X10 3/uL High 2.0-7.7 [facility] Comment on above: Performed By: #### L 700.6800, L100.0100, L500.2500, L501.9100, L505.5000 ####[facility] [address] [place], [address] Basophils/100 WBC (Bld) 0.3 % Normal 0-1 [facility] Comment on above: Performed By: #### L 700.6800, L100.0100, L500.2500, L501.9100, L505.5000 ####[facility] [address] [place], [address] Eosinophils/100 WBC (Bld) 0.0 % Normal 0-5 [facility] Comment on above: Performed By: #### L 700.6800, L100.0100, L500.2500, L501.9100, L505.5000 ####[facility] [address] [place], [address] Erythrocyte distribution width (RBC) [Ratio] 12.6 % Normal 11.6-14.6 [facility] Comment on above: Performed By: #### L 700.6800, L100.0100, L500.2500, L501.9100, L505.5000 ####[facility] [address] [place], [address] Hematocrit (Bld) [Volume fraction] 42.1 % Normal 37-47 [facility] Comment on above: Performed By: #### L 700.6800, L100.0100, L500.2500, L501.9100, L505.5000 ####[facility] [address] [place], [address] Hemoglobin (Bld) [Mass/Vol] 14.2 g/dL Normal 12.0-15. 0 [facility] Comment on above: Performed By: #### L 700.6800, L100.0100, L500.2500, L501.9100, L505.5000 ####[facility] [address] [place], [address] IG% 0.300 Normal 0.0-0.9 [facility] Comment on above: Result Comment: IG% - Immature Granulocytes (promyelocytes, myelocytes andmetamyelocytes) > 1% indicates that a LEFT SHIFT is Present. Performed By: #### L 700.6800, L100.0100, L500.2500, L501.9100, L505.5000 ####[facility] [address] [place], [address] Lymphocytes/100 WBC (Bld) 7.3 % Low 19-41 [facility] Comment on above: Performed By: #### L 700.6800, L100.0100, L500.2500, L501.9100, L505.5000 ####[facility] [address] [place], [address] MCH (RBC) [Entitic mass] 31.3 pg Normal 27.0-32.0 [facility] Comment on above: Performed By: #### L 700.6800, L100.0100, L500.2500, L501.9100, L505.5000 ####[facility] [address] [place], [address] MCHC (RBC) [Mass/Vol] 33.7 g/dL Normal 32-36 [facility] Comment on above: Performed By: #### L 700.6800, L100.0100, L500.2500, L501.9100, L505.5000 ####[facility] [address] [place], [address] MCV (RBC) [Entitic vol] 92.9 fL Normal 81-99 [facility] Comment on above: Performed By: #### L 700.6800, L100.0100, L500.2500, L501.9100, L505.5000 ####[facility] [address] [place], [address] Monocytes/100 WBC (Bld) 5.6 % Normal 0-10 [facility] Comment on above: Performed By: #### L 700.6800, L100.0100, L500.2500, L501.9100, L505.5000 ####[facility] [address] [place], [address] Neutrophils/100 WBC (Bld) 86.5 % High 47-70 [facility] Comment on above: Performed By: #### L 700.6800, L100.0100, L500.2500, L501.9100, L505.5000 ####[facility] [address] [place], [address] Nucleated RBC (Bld) [#/Vol] 0 10*3/uL Normal 0-5 [facility] Comment on above: Performed By: #### L 700.6800, L100.0100, L500.2500, L501.9100, L505.5000 ####[facility] [address] [place], [address] Platelet mean volume (Bld) [Entitic vol] 10.0 fL Normal 6.2-12.0 [facility] Comment on above: Performed By: #### L 700.6800, L100.0100, L500.2500, L501.9100, L505.5000 ####[facility] [address] [place], [address] Platelets (Bld) [#/Vol] 322 10*3/uL Normal 150-450 [facility] Comment on above: Performed By: #### L 700.6800, L100.0100, L500.2500, L501.9100, L505.5000 ####[facility] [address] [place], [address] RBC (Bld) [#/Vol] 4.53 10*6/uL Normal 4.2-5.4 [facility] Comment on above: Performed By: #### L 700.6800, L100.0100, L500.2500, L501.9100, L505.5000 ####[facility] [address] [place], [address] RDW SD 43.1 fl Normal 35.1-43.9 [facility] Comment on above: Performed By: #### L 700.6800, L100.0100, L500.2500, L501.9100, L505.5000 ####[facility] [address] [place], [place], [address] WBC (Bld) [#/Vol] 15.1 10*3/uL High 4.4-11.0 [facility] Comment on above: Performed By: #### L 700.6800, L100.0100, L500.2500, L501.9100, L505.5000 ####[facility] [address] [place], [address] Carbon dioxide measurementOr dered By: Patti Antunez on 03-23-2024 CO2 [Moles/Vol] 21.0 mmol/L 21.0-32.0 [facility] Chloride measurementOrdered By: Patti Antunez on 03-23-2024 Chloride [Moles/Vol] 104 mmol/L 98-107 [facility] Emergency Department Summary on 03-23-2024 Emergency Department Summary Normal [facility] Eosinophil percentageOrdered By: Patti Antunez on 03-23-2024 Eosinophils/100 WBC (Bld) 0.0 % 0-5 [facility] Erythrocyte distribution wid th ratioOrdered By: Patti Antunez on 03-23-2024 Erythrocyte distribution width (RBC) [Ratio] 12.6 % 11.6-14.6 [facility] Erythrocyte distribution wid th standard deviationOrdered By: Patti Antunez on 03-23-2024 Erythrocyte distribution width (RBC) [Entitic vol] 43.1 fL 35.1-43.9 [facility] Erythrocyte distribution width (RBC) [Ratio] 43.1 fl 35.1-43.9 [facility] Estimated glomerular filtrat ion rate (GFR) AmericanOrdered By: Patti Antunez on 03-23-2024 Estimated GFR (MDRD) Amer 110 mL/min >60 [facility] Comment on above: GFR Calc Glomerular filtration rate ( GFR) estimationOrdered By: Patti Antunez on 03-23-2024 Estimated GFR (MDRD) Non-Af Amer 91 mL/min >60 [facility] Comment on above: Non- GFR Calc GFR/1.73 sq M.predicted among non-blacks MDRD (S/P/Bld) [Vol rate/Area] 91 mL/min/{1.73_m2} >60 [facility] Comment on above: Non- GFR Calc Glucose measurementOrdered B y: Patti Antunez on 03-23-2024 Glucose [Mass/Vol] 106 mg/dL 74-106 [facility] Comment on above: Fasting Glucose resu lt from 100 to 125 mg/dL suggests IMPAIRED HOMEOSTASIS per A.D.A. criteria. Hematocrit Auto (Bld) [Volum e fraction]Ordered By: Patti Antunez on 03-23-2024 Hematocrit (Bld) [Volume fraction] 42.1 % 37-47 [facility] Hemoglobin measurementOrdere d By: Patti Antunez on 03-23-2024 Hemoglobin (Bld) [Mass/Vol] 14.2 g/dL 12.0-15. 0 [facility] Immature granulocytes/100 WB C Auto (Bld)Ordered By: Patti Antunez on 03-23-2024 Immature granulocytes/100 WBC (Bld) 0.300 % 0.0-0.9 [facility] Comment on above: IG% - Immature Granu locytes (promyelocytes, myelocytes and metamyelocytes) > 1% indicates that a LEFT SHIFT is Present. Lymphocytes Auto (Unsp spec) [#/Vol]Ordered By: Patti Antunez on 03-23-2024 Lymphocytes (Bld) [#/Vol] 1.11 10*3/uL 0.83-4.5 1 [facility] Lymphocytes/100 WBC Auto (Un sp spec)Ordered By: Patti Antunez on 03-23-2024 Lymphocytes/100 WBC (Bld) 7.3 % Low 19-41 [facility] MCV (mean corpuscular volume ) determinationOrdered By: Patti Antunez on 03-23-2024 MCV (RBC) [Entitic vol] 92.9 fL 81-99 [facility] Mean corpuscular hemoglobin (MCH) determinationOrdered By: Patti Antunez on 03-23-2024 MCH (RBC) [Entitic mass] 31.3 pg 27.0-32.0 [facility] Mean corpuscular hemoglobin concentration (MCHC) determinationOrdered By: Patti Antunez on 03-23-2024 MCHC (RBC) [Mass/Vol] 33.7 g/dL 32-36 [facility] Mean platelet volume determi nationOrdered By: Patti Antunez on 03-23-2024 Platelet mean volume (Bld) [Entitic vol] 10.0 fL 6.2-12.0 [facility] Methadone, urineOrdered By: Patti Antunez on 03-23-2024 Urine Methadone Screen Negative < 300 ng/mL [facility] Monocyte percentageOrdered B y: Patti Antunez on 03-23-2024 Monocytes/100 WBC (Bld) 5.6 % 0-10 [facility] Neutrophil percentageOrdered By: Patti Antunez on 03-23-2024 Neutrophils/100 WBC (Bld) 86.5 % High 47-70 [facility] No Panel InformationOrdered By: Patti Antunez on 03-23-2024 Urine Drug Screen Comment [facility] Comment on above: CONFIRMATORY TESTING FOR ALL POSITIVE URINE DRUG SCREENRESULTS WILL ONLY BE SENT OUT UPON PHYSICIAN ORDER. VISTA Urine Drug Screen methods provide only preliminaryanalytical test results. A more specific alternate chemicalmethod must be used in order to obtain a confirmedanalytical result. Gas chromatography/mass spectrometery(GC/MS) is the preferred confirmatory method. Clinicalconsideration and professional judgement should be appliedto any drug of abuse test result, particularly whenpreliminary positive results are used. URINE TCA TESTING MUST BE ORDERED SEPARATELY. USE TESTMNEMONIC: [facility] Nucleated red blood cell per centageOrdered By: Patti Antuenz on 03-23-2024 Nucleated RBC/100 WBC (Bld) [Ratio] 0 % 0-5 [facility] Platelet countOrdered By: Jenelle Antunez on 03-23-2024 Platelets (Bld) [#/Vol] 322 10*3/uL 150-450 [facility] Potassium measurementOrdered By: Patti Antunez on 03-23-2024 Potassium [Moles/Vol] 3.0 mmol/L Low 3.5-5.1 [facility] ,Serum,hCG Quali.on 03-23-2024 HCG, SERUM QUAL Negative Normal [facility] Comment on above: Performed By: #### L 700.6800, L100.0100, L500.2500, L501.9100, L505.5000 ####[facility] [address] [place], [address] Quantitative urine opiates m easurementOrdered By: Patti Antunez on 03-23-2024 Opiates Ql (U) Negative < 300 ng/mL [facility] RBC Auto (Bld) [#/Vol]Ordere d By: Patti Antunez on 03-23-2024 RBC (Bld) [#/Vol] 4.53 10*6/uL 4.2-5.4 [facility] Serum anion gap measurementO rdered By: Patti Antunez on 03-23-2024 Anion gap [Moles/Vol] 13 mmol/L 5-15 [facility] Serum beta-hCG test, qualita tiveOrdered By: Patti Antunez on 03-23-2024 Beta HCG ( test) Ql Negative [facility] Serum ethanol measurementOrd ered By: Patti Antunez on 03-23-2024 Ethyl Alcohol Level < 3.0 mg/dL [facility] Comment on above: The serum:whole bloo d ethanol ratio is approximately 1.14and varies slightly with hematocrit. Medical Alcohol reference interval and critical value innon-tolerant individuals; 50 - 100 Impairment 100 Intoxication 100 - 250 Severe Poisoning 250 - 400 Deep/possible fatal coma Serum or plasma calcium riddhi urement (mass/volume)Ordered By: Patti Antunez on 03-23-2024 Calcium [Mass/Vol] 9.6 mg/dL 8.5-10.1 [facility] Serum or plasma creatinine m easurement (mass/volume)Ordered By: Patti Antunez on 03-23-2024 Creatinine [Mass/Vol] 0.82 mg/dL 0.55-1.02 [facility] Comment on above: The validity of the calculated GFR & GFRAA in patients over 70 years has not been determined. Clinical correlation is essential. Serum or plasma urea nitroge n measurement (mass/volume)Ordered By: Patti Antunez on 03-23-2024 Urea nitrogen [Mass/Vol] 8 mg/dL 7-18 [facility] Sodium levelOrdered By: Salvatore north Antunez on 03-23-2024 Sodium [Moles/Vol] 138 mmol/L 136-145 [facility] Urine Drug Screen (VISTA)on 03-23-2024 AMPHETAMINES Positive Abnormal <1000 ng/mL [facility] Comment on above: Performed By: #### L 700.6800, L100.0100, L500.2500, L501.9100, L505.5000 ####[facility] [address] [place] [address] BARBITIURATES Negative Normal < 200 ng/mL [facility] Comment on above: Performed By: #### L 700.6800, L100.0100, L500.2500, L501.9100, L505.5000 ####[facility] [address] [place] [address] BENZODIAZIPINE Negative Normal < 200 ng/mL [facility] Comment on above: Performed By: #### L 700.6800, L100.0100, L500.2500, L501.9100, L505.5000 ####[facility] [address] [place], [place], [phone] COCAINE Positive Abnormal < 300 ng/mL [facility] Comment on above: Performed By: #### L 700.6800, L100.0100, L500.2500, L501.9100, L505.5000 ####[facility] [address] [place] [address] ECSTACY Positive Abnormal < 500 ng/mL [facility] Comment on above: Performed By: #### L 700.6800, L100.0100, L500.2500, L501.9100, L505.5000 ####[facility] [address] [facility] [address] METHADONE Negative Normal < 300 ng/mL [facility] Comment on above: Performed By: #### L 700.6800, L100.0100, L500.2500, L501.9100, L505.5000 ####[facility] [address] [place], [address] OPIATES Negative Normal < 300 ng/mL [facility] Comment on above: Performed By: #### L 700.6800, L100.0100, L500.2500, L501.9100, L505.5000 ####[facility] [address] [place], [place], [phone] PCP Negative Normal < 25 ng/mL [facility] Comment on above: Performed By: #### L 700.6800, L100.0100, L500.2500, L501.9100, L505.5000 ####[facility] [address] [place], [address] THC Positive Abnormal < 50 ng/mL [facility] Comment on above: Performed By: #### L 700.6800, L100.0100, L500.2500, L501.9100, L505.5000 ####[facility] [address] [place], [address] VISTA UDS PH 5 Normal [facility] Comment on above: Performed By: #### L 700.6800, L100.0100, L500.2500, L501.9100, L505.5000 ####[facility] [address] [place], [id number] Urine amphetamine measuremen tOrdered By: Patti Antunez on 03-23-2024 Amphetamines Ql (U) Positive High <1000 ng/mL [facility] Urine barbiturates measureme ntOrdered By: Patti Antunez on 03-23-2024 Urine Barbiturates Screen Negative < 200 ng/mL [facility] Urine benzodiazepine levelOr dered By: Patti Antunez on 03-23-2024 Benzodiazepines Ql (U) Negative < 200 ng/mL [facility] Urine cocaine levelOrdered B y: Patti Antunez on 03-23-2024 Cocaine Ql (U) Positive High < 300 ng/mL [facility] Urine ufqow-7-zdcgkyumkyyynq abinol (THC) measurementOrdered By: Patti Antunez on 03-23-2024 Cannabinoids Screen Ql (U) Positive High < 50 ng/m L [facility] Urine methylenedioxymethamph etamine (MDMA) measurementOrdered By: Patti Antunez on 03-23-2024 MDMA (Ecstasy) Screen Positive High < 500 ng/mL [facility] Urine phencyclidine (PCP) de tectionOrdered By: Patti Antunez on 03-23-2024 Phencyclidine Ql (U) Negative < 25 ng/mL [facility] White blood cell (WBC) count Ordered By: Patti Antunez on 03-23-2024 WBC (Bld) [#/Vol] 15.1 10*3/uL High 4.4-11.0 [facility] 36on 02-27-2024 36 All medications were refused, this patient has to have an appointment before I will prescribe any medications, she has been off of her Lyrica since January and we have never prescribed Zyprexa. She has not been seen since June and has been scheduled multiple times and has either no showed or canceled [place] [address]on 02-26-20[address] Elliot juarez review and see if he would be okay with prescribing the Zyprexa. Lyrica has also not been filled since November and it was only a [address] supply[address] 06/28/[address] Booth on 06/28/23, do you want to leave this for him tomorrow since we have never prescribed the Olazapine? [place] [address] Ordering provider: Leobardo Date of last office visit: 06/27/24 Date of next office visit: none Updated/Validated preferred pharmacy: Yes Patient instructed to contact the pharmacy prior to picking up the medication: Yes (1) Medication name: famotidine (Pepcid) 20 mg in sodium chloride (PF) 0.9 % 10 mL injection Medication dosage: 20 mg (Miligrams Monthly quantity needed: 30 How many day supply requestin days Medication route: oral (PO) Medication administration time(s): daily If taking medication PRN, reason for taking medication: N/A If this is a controlled substance do you receive this or any other controlled medication from any other doctor or facility: N/A Date of last refill (see medication tab): 10/26/22 (2) Medication name: pregabalin (Lyrica) 100 MG capsule [[id number]] Medication dosage: 100 mg (Miligrams Monthly quantity [...] Date of last refill (see medication tab): 12/13/23 Patient states an she also need a refill of medication Olanzapine 20 mg. Patient is I aware that doctor never prescribed she received it through [facility] patient was advised you may not fill because you didn't prescribe. Please send all refills to pharmacy [id number] [address] [place], [place] - [address] [facility] L3800.4300on 01-16-2024 Fentanyl Urine Negative Normal CUTOFF:2.0 [facility] Comment on above: Order Comment: Speci men Comment: ToxAssure, ToxAssure FLEX or MAT [id number] Comment: -Technical component - Data analysisperformed atSpecimen Comment: [facility] [place], [address], JAYLEN KelloggSpecimen Comment: [phone]. [phone] Lab DirectorMike Corey MD. Result Comment: Perf ormed at: [employer] [facility] [employer] [address] [place] [address] [id number] Director: Cheryl Patiño [facility], Phone: [phone] Performed By: #### L 0136.8488 ####[facility] [address] [place], [place], [address] Discharge Instructionon 12-15 Discharge Instruction Normal [facility] M8200.2203on 01-10-2024 M8200.2203 Pending Chlamydia Trachomatis PCR NEGATIVE for Chlamydia trachomatis N. gonorrhoeae PCR Negative for N. gonorrhoeae Normal [facility] Comment on above: Performed By: #### M 8200.2203 ####[facility] [address] [place], [address] Basic Metabolic Profile (BMP )on 01-09-2024 BUN/CRE 23.1 RATIO High 10-20 [facility] Comment on above: Performed By: #### L 500.2500 ####[facility] [address] [place], [address] CA,Total 8.7 mg/dL Normal 8.5-10.1 [facility] Comment on above: Performed By: #### L 500.2500 ####[facility] [address] [place], [address] Chloride [Moles/Vol] 106 mmol/L Normal 98-107 [facility] Comment on above: Performed By: #### L 500.2500 ####[facility] [address] [place], [address] CO2 [Moles/Vol] 28.0 mmol/L Normal 21.0-32.0 [facility] Comment on above: Performed By: #### L 500.2500 ####[facility] [address] [place], [address] Creatinine [Mass/Vol] 0.52 mg/dL Low 0.55-1.02 [facility] Comment on above: Result Comment: The validity of the calculated GFR GFRAA in patients over70 years has not been determined. Clinical correlation isessential. Performed By: #### L 500.2500 ####[facility] [address] [place], [address] ECRCL 165.33 ml/min Normal [facility] Comment on above: Performed By: #### L 500.2500 ####[facility] [address] [place], [address] EST GFR - AA 186 mL/min Normal >60 [facility] Comment on above: Result Comment: Afri can Finnish GFR Calc Performed By: #### L 500.2500 ####[facility] [address] [place], [address] GAP 5 Normal 5-15 [facility] Comment on above: Performed By: #### L 500.2500 ####[facility] [address] [place], [address] GFR/1.73 sq M.predicted among non-blacks MDRD (S/P/Bld) [Vol rate/Area] 154 mL/min/{1.73_m2} Normal >60 [facility] Comment on above: Result Comment: Non- GFR Calc Performed By: #### L 500.2500 ####[facility] [address] [place], [address] Glucose [Mass/Vol] 102 mg/dL Normal 74-106 [facility] Comment on above: Result Comment: Fast ing Glucose result from 100 to 125 mg/dLsuggests IMPAIRED HOMEOSTASIS per A.D.A. criteria. Performed By: #### L 500.2500 ####[facility] [address] [place], [address] Potassium [Moles/Vol] 3.4 mmol/L Low 3.5-5.1 [facility] Comment on above: Performed By: #### L 500.2500 ####[facility] [address] [place], [address] Sodium [Moles/Vol] 139 mmol/L Normal 136-145 [facility] Comment on above: Performed By: #### L 500.2500 ####[facility] [address] [place], [address] Urea nitrogen [Mass/Vol] 12 mg/dL Normal 7-18 [facility] Comment on above: Performed By: #### L 500.9401 ####[facility] [address] [place], [address] Blood urea nitrogen (BUN)/cr eatinine ratioOrdered By: Kirill Perez on 01-09-2024 Urea nitrogen/Creatinine [Mass ratio] 23.1 mg/mg High 10-20 [facility] Carbon dioxide measurementOr dered By: Kirill Perez on 01-09-2024 CO2 [Moles/Vol] 28.0 mmol/L 21.0-32.0 [facility] Chlamydia and Neisseria gono rrhoeae detection by PCROrdered By: Easton Pugh on 01-09-2024 Chlamydia/Neisseria (PCR) [facility] Chloride measurementOrdered By: Kirill Perez on 01-09-2024 Chloride [Moles/Vol] 106 mmol/L 98-107 [facility] Estimated glomerular filtrat ion rate (GFR) AmericanOrdered By: Kirill Perez on 01-09-2024 Estimated GFR (MDRD) Amer 186 mL/min >60 [facility] Comment on above: GFR Calc Estimation of creatinine riley aranceOrdered By: Kirill Perez on 01-09-2024 Estimated Creatinine Clearance Calc 165.33 ml/min [facility] Glomerular filtration rate ( GFR) estimationOrdered By: Kirill Perez on 01-09-2024 Estimated GFR (MDRD) Non-Af Amer 154 mL/min >60 [facility] Comment on above: Non- GFR Calc Glucose measurementOrdered B y: Kirill Perez on 01-09-2024 Glucose [Mass/Vol] 102 mg/dL 74-106 [facility] Comment on above: Fasting Glucose resu lt from 100 to 125 mg/dL suggests IMPAIRED HOMEOSTASIS per A.D.A. criteria. Potassium measurementOrdered By: Kirill Perez on 01-09-2024 Potassium [Moles/Vol] 3.4 mmol/L Low 3.5-5.1 [facility] Serum anion gap measurementO rdered By: Kirill Perez on 01-09-2024 Anion gap [Moles/Vol] 5 mmol/L 5-15 [facility] Serum or plasma calcium riddhi urement (mass/volume)Ordered By: Kirill Perez on 01-09-2024 Calcium [Mass/Vol] 8.7 mg/dL 8.5-10.1 [facility] Serum or plasma creatinine m easurement (mass/volume)Ordered By: Kirill Perez on 01-09-2024 Creatinine [Mass/Vol] 0.52 mg/dL Low 0.55-1.02 [facility] Comment on above: The validity of the calculated GFR & GFRAA in patients over 70 years has not been determined. Clinical correlation is essential. Serum or plasma urea nitroge n measurement (mass/volume)Ordered By: Kirill Perez on 01-09-2024 Urea nitrogen [Mass/Vol] 12 mg/dL - [facility] Sodium levelOrdered By: Rickie Perez on 01-09-2024 Sodium [Moles/Vol] 139 mmol/L 136-145 [facility] fentaNYL Screen Ql (U)Ordere d By: Kirill Perez on 01-09-2024 Urine Fentanyl Screen Negative CUTOFF:2.0 [facility] Comment on above: Performed at: [employer] [address] [id number] Director: Cheryl Patiño [facility], Phone: [phone] Lead EKGon 01-08-2024 12 Lead EKG Normal [facility] Absolute neutrophil countOrd ered By: Maxx Lopez on 01-08-2024 Neutrophils (Bld) [#/Vol] 4.0 10*3/uL 2.0-7.7 [facility] Alcohol, Blood (Medical)-Ser umon 01-08-2024 SERUM ETOH < 3.0 Normal [facility] Comment on above: Result Comment: The serum:whole blood ethanol ratio is approximately 1.14and varies slightly with hematocrit.Medical Alcohol reference interval and critical value innon-tolerant individuals; 50 - 100 Impairment 100 Intoxication 100 - 250 Severe Poisoning 250 - 400 Deep/possible fatal coma Performed By: #### L 505.5000, L700.6800, L501.9100, L100.0100, L500.2500 ####[facility] [address] [place], [address] Basic Metabolic Profile (BMP )on 01-08-2024 BUN/CRE 17.6 RATIO Normal 10-20 [facility] Comment on above: Performed By: #### L 505.5000, L700.6800, L501.9100, L100.0100, L500.2500 ####[facility] [address] [place], [address] CA,Total 9.7 mg/dL Normal 8.5-10.1 [facility] Comment on above: Performed By: #### L 505.5000, L700.6800, L501.9100, L100.0100, L500.2500 ####[facility] [address] [place], [address] Chloride [Moles/Vol] 106 mmol/L Normal 98-107 [facility] Comment on above: Performed By: #### L 505.5000, L700.6800, L501.9100, L100.0100, L500.2500 ####[facility] [address] [place], [address] CO2 [Moles/Vol] 26.0 mmol/L Normal 21.0-32.0 [facility] Comment on above: Performed By: #### L 505.5000, L700.6800, L501.9100, L100.0100, L500.2500 ####[facility] [address] [place], [address] Creatinine [Mass/Vol] 0.51 mg/dL Low 0.55-1.02 [facility] Comment on above: Result Comment: The validity of the calculated GFR GFRAA in patients over70 years has not been determined. Clinical correlation isessential. Performed By: #### L 505.5000, L700.6800, L501.9100, L100.0100, L500.2500 ####[facility] [address] [place], [address] ECRCL 188.71 ml/min Normal [facility] Comment on above: Performed By: #### L 505.5000, L700.6800, L501.9100, L100.0100, L500.2500 ####[facility] [address] [place], [address] EST GFR - AA 190 mL/min Normal >60 [facility] Comment on above: Result Comment: Afri can Finnish GFR Calc Performed By: #### L 505.5000, L700.6800, L501.9100, L100.0100, L500.2500 ####[facility] [address] [place], [address] GAP 9 Normal 5-15 [facility] Comment on above: Performed By: #### L 505.5000, L700.6800, L501.9100, L100.0100, L500.2500 ####[facility] [address] [place], [address] GFR/1.73 sq M.predicted among non-blacks MDRD (S/P/Bld) [Vol rate/Area] 157 mL/min/{1.73_m2} Normal >60 [facility] Comment on above: Result Comment: Non- GFR Calc Performed By: #### L 505.5000, L700.6800, L501.9100, L100.0100, L500.2500 ####[facility] [address] [place], [address] Glucose [Mass/Vol] 90 mg/dL Normal 74-106 [facility] Comment on above: Performed By: #### L 505.5000, L700.6800, L501.9100, L100.0100, L500.2500 ####[facility] [address] [place], [address] Potassium [Moles/Vol] 2.9 mmol/L Low 3.5-5.1 [facility] Comment on above: Performed By: #### L 505.5000, L700.6800, L501.9100, L100.0100, L500.2500 ####[facility] [address] [place], [address] Sodium [Moles/Vol] 140 mmol/L Normal 136-145 [facility] Comment on above: Performed By: #### L 505.5000, L700.6800, L501.9100, L100.0100, L500.2500 ####[facility] [address] [place], [address] Urea nitrogen [Mass/Vol] 9 mg/dL Normal 7-18 [facility] Comment on above: Performed By: #### L 505.5000, L700.6800, L501.9100, L100.0100, L500.2500 ####[facility] [address] [place], [address] Basophil percentageOrdered B y: Maxx Lopez on 01-08-2024 Basophils/100 WBC (Bld) 0.4 % 0-1 [facility] Beta HCG ( test) Ql Ordered By: Maxx Lopez on 01-08-2024 Serum Test, Qualitative Negative [facility] CBC W/Diff, Automatedon 12-15 Absolute Lymph 2.49 X10 3/uL Normal 0.83-4.51 [facility] Comment on above: Performed By: #### L 505.5000, L700.6800, L501.9100, L100.0100, L500.2500 ####[facility] [address] [place], [address] Absolute Neut 4.0 X10 3/uL Normal 2.0-7.7 [facility] Comment on above: Performed By: #### L 505.5000, L700.6800, L501.9100, L100.0100, L500.2500 ####[facility] [address] [place], [address] Basophils/100 WBC (Bld) 0.4 % Normal 0-1 [facility] Comment on above: Performed By: #### L 505.5000, L700.6800, L501.9100, L100.0100, L500.2500 ####[facility] [address] [place], [address] Eosinophils/100 WBC (Bld) 2.0 % Normal 0-5 [facility] Comment on above: Performed By: #### L 505.5000, L700.6800, L501.9100, L100.0100, L500.2500 ####[facility] [address] [place], [address] Erythrocyte distribution width (RBC) [Ratio] 12.2 % Normal 11.6-14.6 [facility] Comment on above: Performed By: #### L 505.5000, L700.6800, L501.9100, L100.0100, L500.2500 ####[facility] [address] [place], [address] Hematocrit (Bld) [Volume fraction] 40.3 % Normal 37-47 [facility] Comment on above: Performed By: #### L 505.5000, L700.6800, L501.9100, L100.0100, L500.2500 ####[facility] [address] [place], [address] Hemoglobin (Bld) [Mass/Vol] 13.7 g/dL Normal 12.0-15. 0 [facility] Comment on above: Performed By: #### L 505.5000, L700.6800, L501.9100, L100.0100, L500.2500 ####[facility] [address] [place], [address] IG% 0.300 Normal 0.0-0.9 [facility] Comment on above: Result Comment: IG% - Immature Granulocytes (promyelocytes, myelocytes andmetamyelocytes) > 1% indicates that a LEFT SHIFT is Present. Performed By: #### L 505.5000, L700.6800, L501.9100, L100.0100, L500.2500 ####[facility] [address] [place], [address] Lymphocytes/100 WBC (Bld) 35.0 % Normal 19-41 [facility] Comment on above: Performed By: #### L 505.5000, L700.6800, L501.9100, L100.0100, L500.2500 ####[facility] [address] [place], [address] MCH (RBC) [Entitic mass] 32.4 pg High 27.0-32.0 [facility] Comment on above: Performed By: #### L 505.5000, L700.6800, L501.9100, L100.0100, L500.2500 ####[facility] [address] [place], [address] MCHC (RBC) [Mass/Vol] 34.0 g/dL Normal 32-36 [facility] Comment on above: Performed By: #### L 505.5000, L700.6800, L501.9100, L100.0100, L500.2500 ####[facility] [address] [place], [address] MCV (RBC) [Entitic vol] 95.3 fL Normal 81-99 [facility] Comment on above: Performed By: #### L 505.5000, L700.6800, L501.9100, L100.0100, L500.2500 ####[facility] [address] [place], [address] Monocytes/100 WBC (Bld) 6.9 % Normal 0-10 [facility] Comment on above: Performed By: #### L 505.5000, L700.6800, L501.9100, L100.0100, L500.2500 ####[facility] [address] [place], [address] Neutrophils/100 WBC (Bld) 55.4 % Normal 47-70 [facility] Comment on above: Performed By: #### L 505.5000, L700.6800, L501.9100, L100.0100, L500.2500 ####[facility] [address] [place], [address] Nucleated RBC (Bld) [#/Vol] 0 10*3/uL Normal 0-5 [facility] Comment on above: Performed By: #### L 505.5000, L700.6800, L501.9100, L100.0100, L500.2500 ####[facility] [address] [place], [address] Platelet mean volume (Bld) [Entitic vol] 11.3 fL Normal 6.2-12.0 [facility] Comment on above: Performed By: #### L 505.5000, L700.6800, L501.9100, L100.0100, L500.2500 ####[facility] [address] [place], [address] Platelets (Bld) [#/Vol] 274 10*3/uL Normal 150-450 [facility] Comment on above: Performed By: #### L 505.5000, L700.6800, L501.9100, L100.0100, L500.2500 ####[facility] [address] [place], [address] RBC (Bld) [#/Vol] 4.23 10*6/uL Normal 4.2-5.4 [facility] Comment on above: Performed By: #### L 505.5000, L700.6800, L501.9100, L100.0100, L500.2500 ####[facility] [address] [place], [place], [address] RDW SD 42.7 fl Normal 35.1-43.9 [facility] Comment on above: Performed By: #### L 505.5000, L700.6800, L501.9100, L100.0100, L500.2500 ####[facility] [address] [place], [place], [address] WBC (Bld) [#/Vol] 7.1 10*3/uL Normal 4.4-11.0 [facility] Comment on above: Performed By: #### L 505.5000, L700.6800, L501.9100, L100.0100, L500.2500 ####[facility] [address] [place], [place], [address] Emergency Department Summary on 01-08-2024 Emergency Department Summary Normal [facility] Eosinophil percentageOrdered By: Maxx Lopez on 01-08-2024 Eosinophils/100 WBC (Bld) 2.0 % 0-5 [facility] Erythrocyte distribution wid th ratioOrdered By: Maxx Lopez on 01-08-2024 Erythrocyte distribution width (RBC) [Ratio] 12.2 % 11.6-14.6 [facility] Erythrocyte distribution wid th standard deviationOrdered By: Maxx Lopez on 01-08-2024 Erythrocyte distribution width (RBC) [Entitic vol] 42.7 fL 35.1-43.9 [facility] H AND P Exam - Hospital[facility] 01-08-2024 H&P Exam - Hospitalist Normal [facility] Hematocrit Auto (Bld) [Volum e fraction]Ordered By: Maxx Lopez on 01-08-2024 Hematocrit (Bld) [Volume fraction] 40.3 % 37-47 [facility] Hemoglobin measurementOrdere d By: Maxx Lopez on 01-08-2024 Hemoglobin (Bld) [Mass/Vol] 13.7 g/dL 12.0-15. 0 [facility] Immature granulocytes/100 WB C Auto (Bld)Ordered By: Maxx Lopez on 01-08-2024 Immature granulocytes/100 WBC (Bld) 0.300 % 0.0-0.9 [facility] Comment on above: IG% - Immature Granu locytes (promyelocytes, myelocytes and metamyelocytes) > 1% indicates that a LEFT SHIFT is Present. L3800.4200on 01-08-2024 Mec Fentanyl Sc Normal [facility] Comment on above: Result Comment: OSVALDO ENT DISCHARGED, URINE SCREEN SENT OUT TO REF LAB Performed By: #### L 3800.4200 ####[facility] [address], [address] Lymphocytes Auto (Unsp spec) [#/Vol]Ordered By: Maxx Lopez on 01-08-2024 Lymphocytes (Bld) [#/Vol] 2.49 10*3/uL 0.83-4.5 1 [facility] Lymphocytes/100 WBC Auto (Un sp spec)Ordered By: Maxx Lopez on 01-08-2024 Lymphocytes/100 WBC (Bld) 35.0 % 19-41 [facility] MCV (mean corpuscular volume ) determinationOrdered By: Maxx Lopez on 01-08-2024 MCV (RBC) [Entitic vol] 95.3 fL 81-99 [facility] Magnesiumon 01-08-2024 Magnesium [Mass/Vol] 1.7 mg/dL Normal 1.6-2.6 [facility] Comment on above: Performed By: #### L 501.5200, L501.2300 ####[facility] [address] [place], [address] Magnesium measurementOrdered By: Kirill Perez on 01-08-2024 Magnesium [Mass/Vol] 1.7 mg/dL 1.6-2.6 [facility] Mean corpuscular hemoglobin (MCH) determinationOrdered By: Maxx Lopez on 01-08-2024 MCH (RBC) [Entitic mass] 32.4 pg High 27.0-32.0 [facility] Mean corpuscular hemoglobin concentration (MCHC) determinationOrdered By: Maxx Lopez on 01-08-2024 MCHC (RBC) [Mass/Vol] 34.0 g/dL 32-36 [facility] Mean platelet volume determi nationOrdered By: Maxx Lopez on 01-08-2024 Platelet mean volume (Bld) [Entitic vol] 11.3 fL 6.2-12.0 [facility] Methadone, urineOrdered By: Maxx Lopez on 01-08-2024 Urine Methadone Screen Negative < 300 ng/mL [facility] Monocyte percentageOrdered B y: Maxx Lopez on 01-08-2024 Monocytes/100 WBC (Bld) 6.9 % 0-10 [facility] Neutrophil percentageOrdered By: Maxx Lopez on 01-08-2024 Neutrophils/100 WBC (Bld) 55.4 % 47-70 [facility] No Panel InformationOrdered By: Maxx Lopez on 01-08-2024 Urine Drug Screen Comment [facility] Comment on above: CONFIRMATORY TESTING FOR ALL POSITIVE URINE DRUG SCREENRESULTS WILL ONLY BE SENT OUT UPON PHYSICIAN ORDER. VISTA Urine Drug Screen methods provide only preliminaryanalytical test results. A more specific alternate chemicalmethod must be used in order to obtain a confirmedanalytical result. Gas chromatography/mass spectrometery(GC/MS) is the preferred confirmatory method. Clinicalconsideration and professional judgement should be appliedto any drug of abuse test result, particularly whenpreliminary positive results are used. URINE TCA TESTING MUST BE ORDERED SEPARATELY. USE TESTMNEMONIC: UTCA Nucleated red blood cell per centageOrdered By: Maxx Lopez on 01-08-2024 Nucleated RBC/100 WBC (Bld) [Ratio] 0 % 0-5 [facility] Phosphoruson 01-08-2024 Phosphate [Mass/Vol] 4.2 mg/dL Normal 2.5-4.9 [facility] Comment on above: Performed By: #### L 501.5200, L501.2300 ####[facility] [address] [place], [address] Phosphorus measurementOrdere d By: Kirill Perez on 01-08-2024 Phosphorus Level 4.2 mg/dL 2.5-4.9 [facility] Platelet countOrdered By: Carla Lopez on 01-08-2024 Platelets (Bld) [#/Vol] 274 10*3/uL 150-450 [facility] ,Serum,hCG Quali.on 01-08-2024 HCG, SERUM QUAL Negative Normal [facility] Comment on above: Performed By: #### L 505.5000, L700.6800, L501.9100, L100.0100, L500.2500 ####[facility] [address] [place], [address] Quantitative urine opiates m easurementOrdered By: Maxx Lopez on 01-08-2024 Opiates Ql (U) Negative < 300 ng/mL [facility] RBC Auto (Bld) [#/Vol]Ordere d By: Maxx Lopez on 01-08-2024 RBC (Bld) [#/Vol] 4.23 10*6/uL 4.2-5.4 [facility] Serum ethanol measurementOrd ered By: Maxx Lopez on 01-08-2024 Ethyl Alcohol Level < 3.0 mg/dL [facility] Comment on above: The serum:whole bloo d ethanol ratio is approximately 1.14and varies slightly with hematocrit. Medical Alcohol reference interval and critical value innon-tolerant individuals; 50 - 100 Impairment 100 Intoxication 100 - 250 Severe Poisoning 250 - 400 Deep/possible fatal coma Urine Drug Screen (VISTA)on 01-08-2024 AMPHETAMINES Positive Abnormal <1000 ng/mL [facility] Comment on above: Performed By: #### L 505.5000, L700.6800, L501.9100, L100.0100, L500.2500 ####[facility] [address] [place], [place], [id number] BARBITIURATES Negative Normal < 200 ng/mL [facility] Comment on above: Performed By: #### L 505.5000, L700.6800, L501.9100, L100.0100, L500.2500 ####[facility] [address] [place], [place], [phone] BENZODIAZIPINE Negative Normal < 200 ng/mL [facility] Comment on above: Performed By: #### L 505.5000, L700.6800, L501.9100, L100.0100, L500.2500 ####[facility] [address] [place] [address] COCAINE Negative Normal < 300 ng/mL [facility] Comment on above: Performed By: #### L 505.5000, L700.6800, L501.9100, L100.0100, L500.2500 ####[facility] [address] [place], [phone] ECSTACY Positive Abnormal < 500 ng/mL [facility] Comment on above: Performed By: #### L 505.5000, L700.6800, L501.9100, L100.0100, L500.2500 ####[facility] [address] [place], [phone] METHADONE Negative Normal < 300 ng/mL [facility] Comment on above: Performed By: #### L 505.5000, L700.6800, L501.9100, L100.0100, L500.2500 ####[facility] [address] [place], [phone] OPIATES Negative Normal < 300 ng/mL [facility] Comment on above: Performed By: #### L 505.5000, L700.6800, L501.9100, L100.0100, L500.2500 ####[facility] [address] [place], [phone] PCP Negative Normal < 25 ng/mL [facility] Comment on above: Performed By: #### L 505.5000, L700.6800, L501.9100, L100.0100, L500.2500 ####[facility] [address] [place], [address] THC Negative Normal < 50 ng/mL [facility] Comment on above: Performed By: #### L 505.5000, L700.6800, L501.9100, L100.0100, L500.2500 ####[facility] [address] [place], [address] VISTA UDS PH 4 Normal [facility] Comment on above: Performed By: #### L 505.5000, L700.6800, L501.9100, L100.0100, L500.2500 ####[facility] [address] [place], [address] Urine amphetamine measuremen tOrdered By: Maxx Lopez on 01-08-2024 Amphetamines Ql (U) Positive High <1000 ng/mL [facility] Urine barbiturates measureme ntOrdered By: Maxx Lopez on 01-08-2024 Urine Barbiturates Screen Negative < 200 ng/mL [facility] Urine benzodiazepine levelOr dered By: Maxx Lopez on 01-08-2024 Benzodiazepines Ql (U) Negative < 200 ng/mL [facility] Urine cocaine levelOrdered B y: Maxx Lopez on 01-08-2024 Cocaine Ql (U) Negative < 300 ng/mL [facility] Urine uteii-5-gnwhzurnnerjmz abinol (THC) measurementOrdered By: Maxx Lopez on 01-08-2024 Cannabinoids Screen Ql (U) Negative < 50 ng/m L [facility] Urine methylenedioxymethamph etamine (MDMA) measurementOrdered By: Maxx Lopez on 01-08-2024 MDMA (Ecstasy) Screen Positive High < 500 ng/mL [facility] Urine phencyclidine (PCP) de tectionOrdered By: Maxx Lopez on 01-08-2024 Phencyclidine Ql (U) Negative < 25 ng/mL [facility] White blood cell (WBC) count Ordered By: Maxx Lopez on 01-08-2024 WBC (Bld) [#/Vol] 7.1 10*3/uL 4.4-11.0 [facility] 36on 12-26-2023 36 Mailed letter to contact the office. Normal [facility] 36on 12-20-2023 36 Anthony Booth MD 12/13/23 6:51 AM Note Rx sent, OARRS report done, no inconsistencies, only partial prescriptions were sent and she needs an appointment IBRAHIMA to continue to get these medicines through our office Left a message to return call. Normal [facility] Alcohol, Blood (Medical)-Ser umon 12-20-2023 SERUM ETOH < 3.0 Normal [facility] Comment on above: Result Comment: The serum:whole blood ethanol ratio is approximately 1.14and varies slightly with hematocrit.Medical Alcohol reference interval and critical value innon-tolerant individuals; 50 - 100 Impairment 100 Intoxication 100 - 250 Severe Poisoning 250 - 400 Deep/possible fatal coma Performed By: #### L 501.9100, L500.2500, L505.5000, L700.6800, L100.0100 ####[facility] [address] [place], [address] Basic Metabolic Profile (BMP )on 12-20-2023 BUN/CRE 17.4 RATIO Normal 10-20 [facility] Comment on above: Performed By: #### L 501.9100, L500.2500, L505.5000, L700.6800, L100.0100 ####[facility] [address] [place], [address] CA,Total 9.8 mg/dL Normal 8.5-10.1 [facility] Comment on above: Performed By: #### L 501.9100, L500.2500, L505.5000, L700.6800, L100.0100 ####[facility] [address] [place], [address] Chloride [Moles/Vol] 105 mmol/L Normal 98-107 [facility] Comment on above: Performed By: #### L 501.9100, L500.2500, L505.5000, L700.6800, L100.0100 ####[facility] [address] [place], [address] CO2 [Moles/Vol] 23.0 mmol/L Normal 21.0-32.0 [facility] Comment on above: Performed By: #### L 501.9100, L500.2500, L505.5000, L700.6800, L100.0100 ####[facility] [address] [place], [address] Creatinine [Mass/Vol] 0.52 mg/dL Low 0.55-1.02 [facility] Comment on above: Result Comment: The validity of the calculated GFR GFRAA in patients over70 years has not been determined. Clinical correlation isessential. Performed By: #### L 501.9100, L500.2500, L505.5000, L700.6800, L100.0100 ####[facility] [address] [place], [address] EST GFR - AA 187 mL/min Normal >60 [facility] Comment on above: Result Comment: Afri can Finnish GFR Calc Performed By: #### L 501.9100, L500.2500, L505.5000, L700.6800, L100.0100 ####[facility] [address] [place], [address] GAP 11 Normal 5-15 [facility] Comment on above: Performed By: #### L 501.9100, L500.2500, L505.5000, L700.6800, L100.0100 ####[facility] [address] [place], [address] GFR/1.73 sq M.predicted among non-blacks MDRD (S/P/Bld) [Vol rate/Area] 154 mL/min/{1.73_m2} Normal >60 [facility] Comment on above: Result Comment: Non- GFR Calc Performed By: #### L 501.9100, L500.2500, L505.5000, L700.6800, L100.0100 ####[facility] [address] [place], [address] Glucose [Mass/Vol] 100 mg/dL Normal 74-106 [facility] Comment on above: Result Comment: Fast ing Glucose result from 100 to 125 mg/dLsuggests IMPAIRED HOMEOSTASIS per A.D.A. criteria. Performed By: #### L 501.9100, L500.2500, L505.5000, L700.6800, L100.0100 ####[facility] [address] [place], [address] Potassium [Moles/Vol] 2.9 mmol/L Low 3.5-5.1 [facility] Comment on above: Performed By: #### L 501.9100, L500.2500, L505.5000, L700.6800, L100.0100 ####[facility] [address] [place], [address] Sodium [Moles/Vol] 138 mmol/L Normal 136-145 [facility] Comment on above: Performed By: #### L 501.9100, L500.2500, L505.5000, L700.6800, L100.0100 ####[facility] [address] [place], [address] Urea nitrogen [Mass/Vol] 9 mg/dL Normal 7-18 [facility] Comment on above: Performed By: #### L 501.9100, L500.2500, L505.5000, L700.6800, L100.0100 ####[facility] [address] [place], [address] CBC W/Diff, Automatedon 11-0 6-4 Absolute Lymph 2.91 X10 3/uL Normal 0.83-4.51 [facility] Comment on above: Performed By: #### L 501.9100, L500.2500, L505.5000, L700.6800, L100.0100 ####[facility] [address] [place], [address] Absolute Neut 5.2 X10 3/uL Normal 2.0-7.7 [facility] Comment on above: Performed By: #### L 501.9100, L500.2500, L505.5000, L700.6800, L100.0100 ####[facility] [address] [place], [address] Basophils/100 WBC (Bld) 0.3 % Normal 0-1 [facility] Comment on above: Performed By: #### L 501.9100, L500.2500, L505.5000, L700.6800, L100.0100 ####[facility] [address] [place], [address] Eosinophils/100 WBC (Bld) 2.4 % Normal 0-5 [facility] Comment on above: Performed By: #### L 501.9100, L500.2500, L505.5000, L700.6800, L100.0100 ####[facility] [address] [place], [address] Erythrocyte distribution width (RBC) [Ratio] 12.6 % Normal 11.6-14.6 [facility] Comment on above: Performed By: #### L 501.9100, L500.2500, L505.5000, L700.6800, L100.0100 ####[facility] [address] [place], [address] Hematocrit (Bld) [Volume fraction] 40.6 % Normal 37-47 [facility] Comment on above: Performed By: #### L 501.9100, L500.2500, L505.5000, L700.6800, L100.0100 ####[facility] [address] [place], [address] Hemoglobin (Bld) [Mass/Vol] 14.0 g/dL Normal 12.0-15. 0 [facility] Comment on above: Performed By: #### L 501.9100, L500.2500, L505.5000, L700.6800, L100.0100 ####[facility] [address] [place], [address] IG% 0.200 Normal 0.0-0.9 [facility] Comment on above: Result Comment: IG% - Immature Granulocytes (promyelocytes, myelocytes andmetamyelocytes) > 1% indicates that a LEFT SHIFT is Present. Performed By: #### L 501.9100, L500.2500, L505.5000, L700.6800, L100.0100 ####[facility] [address] [place], [address] Lymphocytes/100 WBC (Bld) 32.1 % Normal 19-41 [facility] Comment on above: Performed By: #### L 501.9100, L500.2500, L505.5000, L700.6800, L100.0100 ####[facility] [address] [place], [address] MCH (RBC) [Entitic mass] 32.3 pg High 27.0-32.0 [facility] Comment on above: Performed By: #### L 501.9100, L500.2500, L505.5000, L700.6800, L100.0100 ####[facility] [address] [place], [address] MCHC (RBC) [Mass/Vol] 34.5 g/dL Normal 32-36 [facility] Comment on above: Performed By: #### L 501.9100, L500.2500, L505.5000, L700.6800, L100.0100 ####[facility] [address] [place], [address] MCV (RBC) [Entitic vol] 93.8 fL Normal 81-99 [facility] Comment on above: Performed By: #### L 501.9100, L500.2500, L505.5000, L700.6800, L100.0100 ####[facility] [address] [place], [address] Monocytes/100 WBC (Bld) 8.0 % Normal 0-10 [facility] Comment on above: Performed By: #### L 501.9100, L500.2500, L505.5000, L700.6800, L100.0100 ####[facility] [address] [place], [address] Neutrophils/100 WBC (Bld) 57.0 % Normal 47-70 [facility] Comment on above: Performed By: #### L 501.9100, L500.2500, L505.5000, L700.6800, L100.0100 ####[facility] [address] [place], [address] Nucleated RBC (Bld) [#/Vol] 0 10*3/uL Normal 0-5 [facility] Comment on above: Performed By: #### L 501.9100, L500.2500, L505.5000, L700.6800, L100.0100 ####[facility] [address] [place], [address] Platelet mean volume (Bld) [Entitic vol] 10.8 fL Normal 6.2-12.0 [facility] Comment on above: Performed By: #### L 501.9100, L500.2500, L505.5000, L700.6800, L100.0100 ####[facility] [address] [place], [address] Platelets (Bld) [#/Vol] 282 10*3/uL Normal 150-450 [facility] Comment on above: Performed By: #### L 501.9100, L500.2500, L505.5000, L700.6800, L100.0100 ####[facility] [address] [place], [address] RBC (Bld) [#/Vol] 4.33 10*6/uL Normal 4.2-5.4 [facility] Comment on above: Performed By: #### L 501.9100, L500.2500, L505.5000, L700.6800, L100.0100 ####[facility] [address] [place], [address] RDW SD 42.9 fl Normal 35.1-43.9 [facility] Comment on above: Performed By: #### L 501.9100, L500.2500, L505.5000, L700.6800, L100.0100 ####[facility] [address] [place], [address] WBC (Bld) [#/Vol] 9.1 10*3/uL Normal 4.4-11.0 [facility] Comment on above: Performed By: #### L 501.9100, L500.2500, L505.5000, L700.6800, L100.0100 ####[facility] [address] [place], [address] Emergency Department Summary on 12-20-2023 Emergency Department Summary Normal [facility] ,Serum,hCG Quali.on 12-20-2023 HCG, SERUM QUAL Negative Normal [facility] Comment on above: Performed By: #### L 501.9100, L500.2500, L505.5000, L700.6800, L100.0100 ####[facility] [address] [place], [address] Urinalysis, Completeon 12-19 BACTERIA Normal None Seen [facility] Comment on above: Order Comment: CLEAN CATCH Result Comment: OSVALDO ENT BEING TRANSFERED Performed By: #### L 400.0001 ####[facility] [address] [place], [address] BILIRUBIN URINE Normal Negative [facility] Comment on above: Order Comment: CLEAN CATCH Result Comment: OSVALDO ENT BEING TRANSFERED Performed By: #### L 400.0001 ####[facility] [address] [place], [address] Clarity (U) Normal Clear [facility] Comment on above: Order Comment: CLEAN CATCH Result Comment: OSVALDO ENT BEING TRANSFERED Performed By: #### L 400.0001 ####[facility] [address] [place], [address] Color (U) Normal Yellow [facility] Comment on above: Order Comment: CLEAN CATCH Result Comment: OSVALDO ENT BEING TRANSFERED Performed By: #### L 400.0001 ####[facility] [address] [place], [address] EPI,SQUAMOUS Normal 5-10 [facility] Comment on above: Order Comment: CLEAN CATCH Result Comment: OSVALDO ENT BEING TRANSFERED Performed By: #### L 400.0001 ####[facility] [address] [place], [address] GLUCOSE, UR Normal Normal [facility] Comment on above: Order Comment: CLEAN CATCH Result Comment: OSVALDO ENT BEING TRANSFERED Performed By: #### L 400.0001 ####[facility] [address] [place], [address] KETONE UR Normal Negative [facility] Comment on above: Order Comment: CLEAN CATCH Result Comment: OSVALDO ENT BEING TRANSFERED Performed By: #### L 400.0001 ####[facility] [address] [place], [address] LEUK ESTERASE Normal Negative [facility] Comment on above: Order Comment: CLEAN CATCH Result Comment: OSVALDO ENT BEING TRANSFERED Performed By: #### L 400.0001 ####[facility] [address] [place], [address] Mucus Ql (Urine sed) Normal [facility] Comment on above: Order Comment: CLEAN CATCH Result Comment: OSVALDO ENT BEING TRANSFERED Performed By: #### L 400.0001 ####[facility] [address] [place], [address] Nitrite Ql (U) Normal Negative [facility] Comment on above: Order Comment: CLEAN CATCH Result Comment: OSVALDO ENT BEING TRANSFERED Performed By: #### L 400.0001 ####[facility] [address] [place], [address] OCCULT BLOOD-UR Normal Negative [facility] Comment on above: Order Comment: CLEAN CATCH Result Comment: OSVALDO ENT BEING TRANSFERED Performed By: #### L 400.0001 ####[facility] [address] [place], [address] pH UR Normal 5.0 - 8.0 [facility] Comment on above: Order Comment: CLEAN CATCH Result Comment: OSVALDO ENT BEING TRANSFERED Performed By: #### L 400.0001 ####[facility] [address] [place], [address] PROT DIPSTX Normal Negative [facility] Comment on above: Order Comment: CLEAN CATCH Result Comment: OSVALDO ENT BEING TRANSFERED Performed By: #### L 400.0001 ####[facility] [address] [place], [address] RBC Normal 0-5 [facility] Comment on above: Order Comment: CLEAN CATCH Result Comment: OSVALDO ENT BEING TRANSFERED Performed By: #### L 400.0001 ####[facility] [address] [place], [address] SP.GR. DIPSTX Normal 1.002-1.03 0 [facility] Comment on above: Order Comment: CLEAN CATCH Result Comment: OSVALDO ENT BEING TRANSFERED Performed By: #### L 400.0001 ####[facility] [address] [place], [address] UR Preservative Normal [facility] Comment on above: Order Comment: CLEAN CATCH Result Comment: OSVALDO ENT BEING TRANSFERED Performed By: #### L 400.0001 ####[facility] [address] [place] [address] UROBILI Normal Normal [facility] Comment on above: Order Comment: CLEAN CATCH Result Comment: OSVALDO ENT BEING TRANSFERED Performed By: #### L 400.0001 ####[facility] [address] [place] [address] WBC Normal 0-5 [facility] Comment on above: Order Comment: CLEAN CATCH Result Comment: OSVALDO ENT BEING TRANSFERED Performed By: #### L 400.0001 ####[facility] [address] [place] [address] Urine Drug Screen (VISTA)on 12-20-2023 AMPHETAMINES Normal <1000 ng/mL [facility] Comment on above: Result Comment: OSVALDO ENT BEING TRANSFERED Performed By: #### L 501.9100, L500.2500, L505.5000, L700.6800, L100.0100 ####[facility] [address] [place] [address] BARBITIURATES Normal < 200 ng/mL [facility] Comment on above: Result Comment: OSVALDO ENT BEING TRANSFERED Performed By: #### L 501.9100, L500.2500, L505.5000, L700.6800, L100.0100 ####[facility] [address] [place] [id number] BENZODIAZIPINE Normal < 200 ng/mL [facility] Comment on above: Result Comment: OSVALDO ENT BEING TRANSFERED Performed By: #### L 501.9100, L500.2500, L505.5000, L700.6800, L100.0100 ####[facility] [address] [place], [address] COCAINE Normal < 300 ng/mL [facility] Comment on above: Result Comment: OSVALDO ENT BEING TRANSFERED Performed By: #### L 501.9100, L500.2500, L505.5000, L700.6800, L100.0100 ####[facility] [address] [place], [address] DRUG CONFIRM Normal [facility] Comment on above: Result Comment: OSVALDO ENT BEING TRANSFERED Performed By: #### L 501.9100, L500.2500, L505.5000, L700.6800, L100.0100 ####[facility] [address] [place], [address] ECSTACY Normal < 500 ng/mL [facility] Comment on above: Result Comment: OSVALDO ENT BEING TRANSFERED Performed By: #### L 501.9100, L500.2500, L505.5000, L700.6800, L100.0100 ####[facility] [address] [place], [place], [phone] METHADONE Normal < 300 ng/mL [facility] Comment on above: Result Comment: OSVALDO ENT BEING TRANSFERED Performed By: #### L 501.9100, L500.2500, L505.5000, L700.6800, L100.0100 ####[facility] [address] [place], [address] OPIATES Normal < 300 ng/mL [facility] Comment on above: Result Comment: OSVALDO ENT BEING TRANSFERED Performed By: #### L 501.9100, L500.2500, L505.5000, L700.6800, L100.0100 ####[facility] [address] [place], [address] PCP Normal < 25 ng/mL [facility] Comment on above: Result Comment: OSVALDO ENT BEING TRANSFERED Performed By: #### L 501.9100, L500.2500, L505.5000, L700.6800, L100.0100 ####[facility] [address] [place], [address] THC Normal < 50 ng/mL [facility] Comment on above: Result Comment: OSVALDO ENT BEING TRANSFERED Performed By: #### L 501.9100, L500.2500, L505.5000, L700.6800, L100.0100 ####[facility] [address] [place], [place], [address] VISTA UDS PH Normal [facility] Comment on above: Result Comment: OSVALDO ENT BEING TRANSFERED Performed By: #### L 501.9100, L500.2500, L505.5000, L700.6800, L100.0100 ####[facility] [address] [place], [address] [facility] 12-18-2023 36 Called pt, no answer and no vm. [address] 12-15-2023 36 Referrals closed [facility] [place] [id number] Yes, okay to close [address] 12-14-2023 36 Anthony Booth MD 12/13/23 6:51 AM Note Rx sent, OARRS report done, no inconsistencies, only partial prescriptions were sent and she needs an appointment IBRAHIMA to continue to get these medicines through our office Left a message to return call. [address] 12-13-2023 36 Anthony Booth MD 12/13/23 6:51 AM Note Rx sent, OARRS report done, no inconsistencies, only partial prescriptions were sent and she needs an appointment IBRAHIMA to continue to get these medicines through our office Left a message to return call. [place] [address] Rx sent, OARRS repor t done, no inconsistencies, only partial prescriptions were sent and she needs an appointment IBRAHIMA to continue to get these medicines through our office [address] 12-12-2023 36 CSA 06/27/23-Viviana [facility] 36 Ordering provider: Dhaval Moon Date of last office visit: 06/28/23 Date of next office visit: n/a Updated/Validated preferred pharmacy: Yes Patient instructed to contact the pharmacy prior to picking up the medication: Yes (1) Medication name: gabapentin (Neurontin) 100 MG capsule Medication dosage: 100 mg capsule Monthly quantity needed: 30 How many day supply requestin days Medication route: oral (PO) Medication administration time(s): daily If taking medication PRN, reason for taking medication: N/A If this is a controlled substance do you receive this or any other controlled medication from any other doctor or facility: No Date of last refill (see medication tab): n/a (2) Medication name: albuterol (2.5 MG/3ML) 0.083% nebulizer solution Medication dosage: (2.5 MG/3ML) 0.083% nebulizer solution Monthly quantity needed: 30 How many day supply requestin days Medication route: nebulizer solution Medication administration time(s): daily If taking medication PRN, reason for taking medication: N/A If this is a controlled substance do you receive this or any other controlled medication from any other doctor or facility: No Date of last refill (see medication tab): 10/24/23 (3) Medication name: albuterol 108 (90 Base) MCG/ACT inhaler Medication dosage: 108 (90 Base) MCG/ACT inhaler Monthly quantity needed: 30 How many day supply requestin days Medication route: inhalation (inhaler) Medication administration time(s): daily If taking medication PRN, reason for taking medication: N/A If this is a controlled substance do you receive this or any other controlled medication from any other doctor or facility: No Date of last refill (see medication tab): 10/24/23 [facility] Acute [facility]domen [facility] Chest Normal [facility] Emergency Department Summary on 12-06-2023 Emergency Department Summary Normal [facility] Neck for Soft Tissueon 12-05 Neck for Soft Tissue Normal [facility] 36on 11-28-2023 36 No patient response. Closed Normal [facility] Alcohol, Blood (Medical)-Ser umon 11-27-2023 SERUM ETOH < 3.0 Normal [facility] Comment on above: Result Comment: The serum:whole blood ethanol ratio is approximately 1.14and varies slightly with hematocrit.Medical Alcohol reference interval and critical value innon-tolerant individuals; 50 - 100 Impairment 100 Intoxication 100 - 250 Severe Poisoning 250 - 400 Deep/possible fatal coma Performed By: #### L 100.0100, L700.6800, L501.9100, L505.5000, L500.2500 ####[facility] [address] [place], [address] Basic Metabolic Profile (BMP )on 11-27-2023 BUN/CRE 22.1 RATIO High 12-02 [facility] Comment on above: Performed By: #### L 100.0100, L700.6800, L501.9100, L505.5000, L500.2500 ####[facility] [address] [place], [address] CA,Total 9.3 mg/dL Normal 8.5-10.1 [facility] Comment on above: Performed By: #### L 100.0100, L700.6800, L501.9100, L505.5000, L500.2500 ####[facility] [address] [place], [address] Chloride [Moles/Vol] 106 mmol/L Normal 98-107 [facility] Comment on above: Performed By: #### L 100.0100, L700.6800, L501.9100, L505.5000, L500.2500 ####[facility] [address] [place], [address] CO2 [Moles/Vol] 25.0 mmol/L Normal 21.0-32.0 [facility] Comment on above: Performed By: #### L 100.0100, L700.6800, L501.9100, L505.5000, L500.2500 ####[facility] [address] [place], [address] Creatinine [Mass/Vol] 0.41 mg/dL Low 0.55-1.02 [facility] Comment on above: Result Comment: The validity of the calculated GFR GFRAA in patients over70 years has not been determined. Clinical correlation isessential. Performed By: #### L 100.0100, L700.6800, L501.9100, L505.5000, L500.2500 ####[facility] [address] [place], [address] ECRCL 235.41 ml/min Normal [facility] Comment on above: Performed By: #### L 100.0100, L700.6800, L501.9100, L505.5000, L500.2500 ####[facility] [address] [place], [address] EST GFR - AA 246 mL/min Normal >60 [facility] Comment on above: Result Comment: Afri can Finnish GFR Calc Performed By: #### L 100.0100, L700.6800, L501.9100, L505.5000, L500.2500 ####[facility] [address] [place], [address] GAP 6 Normal 5-15 [facility] Comment on above: Performed By: #### L 100.0100, L700.6800, L501.9100, L505.5000, L500.2500 ####[facility] [address] [place], [address] GFR/1.73 sq M.predicted among non-blacks MDRD (S/P/Bld) [Vol rate/Area] 204 mL/min/{1.73_m2} Normal >60 [facility] Comment on above: Result Comment: Non- GFR Calc Performed By: #### L 100.0100, L700.6800, L501.9100, L505.5000, L500.2500 ####[facility] [address] [place], [address] Glucose [Mass/Vol] 96 mg/dL Normal 74-106 [facility] Comment on above: Performed By: #### L 100.0100, L700.6800, L501.9100, L505.5000, L500.2500 ####[facility] [address] [place], [address] Potassium [Moles/Vol] 2.8 mmol/L Low 3.5-5.1 [facility] Comment on above: Performed By: #### L 100.0100, L700.6800, L501.9100, L505.5000, L500.2500 ####[facility] [address] [place], [address] Sodium [Moles/Vol] 138 mmol/L Normal 136-145 [facility] Comment on above: Performed By: #### L 100.0100, L700.6800, L501.9100, L505.5000, L500.2500 ####[facility] [address] [place], [address] Urea nitrogen [Mass/Vol] 9 mg/dL Normal 7-18 [facility] Comment on above: Performed By: #### L 100.0100, L700.6800, L501.9100, L505.5000, L500.2500 ####[facility] [address] [place], [address] CBC W/Diff, Automatedon 10- MACROCYTOSIS RARE Normal [facility] Comment on above: Performed By: #### L 100.0100, L700.6800, L501.9100, L505.5000, L500.2500 ####[facility] [address] [place], [address] Anisocytosis Ql (Bld) RARE Normal [facility] Comment on above: Performed By: #### L 100.0100, L700.6800, L501.9100, L505.5000, L500.2500 ####[facility] [address] [place], [address] PLT EST ADEQUATE Normal ADEQ [facility] Comment on above: Performed By: #### L 100.0100, L700.6800, L501.9100, L505.5000, L500.2500 ####[facility] [address] [place], [address] RED CELL MORPH N CHROM Normal NORM C C [facility] Comment on above: Performed By: #### L 100.0100, L700.6800, L501.9100, L505.5000, L500.2500 ####[facility] [address] [place], [address] Emergency Department Summary on 11-27-2023 Emergency Department Summary Normal [facility] ,Serum,hCG Quali.on 11-27-2023 HCG, SERUM QUAL Negative Normal [facility] Comment on above: Performed By: #### L 100.0100, L700.6800, L501.9100, L505.5000, L500.2500 ####[facility] [address] [place], [address] Urine Drug Screen (VISTA)on 11-27-2023 AMPHETAMINES Positive Abnormal <1000 ng/mL [facility] Comment on above: Performed By: #### L 100.0100, L700.6800, L501.9100, L505.5000, L500.2500 ####[facility] [address] [place], [address] BARBITIURATES Negative Normal < 200 ng/mL [facility] Comment on above: Performed By: #### L 100.0100, L700.6800, L501.9100, L505.5000, L500.2500 ####[facility] [address] [place], [address] BENZODIAZIPINE Negative Normal < 200 ng/mL [facility] Comment on above: Performed By: #### L 100.0100, L700.6800, L501.9100, L505.5000, L500.2500 ####[facility] [address] [place], [place], [phone] COCAINE Negative Normal < 300 ng/mL [facility] Comment on above: Performed By: #### L 100.0100, L700.6800, L501.9100, L505.5000, L500.2500 ####[facility] [address] [place], [phone] ECSTACY Positive Abnormal < 500 ng/mL [facility] Comment on above: Performed By: #### L 100.0100, L700.6800, L501.9100, L505.5000, L500.2500 ####[facility] [address] [place], [phone] METHADONE Negative Normal < 300 ng/mL [facility] Comment on above: Performed By: #### L 100.0100, L700.6800, L501.9100, L505.5000, L500.2500 ####[facility] [address] [place], [phone] OPIATES Negative Normal < 300 ng/mL [facility] Comment on above: Performed By: #### L 100.0100, L700.6800, L501.9100, L505.5000, L500.2500 ####[facility] [address] [place], [place], [phone] PCP Negative Normal < 25 ng/mL [facility] Comment on above: Performed By: #### L 100.0100, L700.6800, L501.9100, L505.5000, L500.2500 ####[facility] [address] [place], [address] THC Negative Normal < 50 ng/mL [facility] Comment on above: Performed By: #### L 100.0100, L700.6800, L501.9100, L505.5000, L500.2500 ####[facility] [address] [place], [address] VISTA UDS PH 5 Normal [facility] Comment on above: Performed By: #### L 100.0100, L700.6800, L501.9100, L505.5000, L500.2500 ####[facility] [address] [place], [address] Urine Cultureon 11-07-2023 URC Mixed Gram Positive Organisms [place] Count 80,000-100,000 MIXC Mixed contaminants. Submit a new specimen if indicated. Normal [facility] Comment on above: Performed By: #### M 100.2200 ####[facility] [address] [place], [address] Basic Metabolic Profile (BMP )on 11-06-2023 BUN/CRE 13.6 RATIO Normal 10-20 [facility] Comment on above: Performed By: #### L 500.2500, L501.9520, L501.5200 ####[facility] [address] [place], [address] CA,Total 8.4 mg/dL Low 8.5-10.1 [facility] Comment on above: Performed By: #### L 500.2500, L501.9520, L501.5200 ####[facility] [address] [place], [address] Chloride [Moles/Vol] 108 mmol/L High 98-107 [facility] Comment on above: Performed By: #### L 500.2500, L501.9520, L501.5200 ####[facility] [address] [place], [address] CO2 [Moles/Vol] 23.0 mmol/L Normal 21.0-32.0 [facility] Comment on above: Performed By: #### L 500.2500, L501.9520, L501.5200 ####[facility] [address] [place], [address] Creatinine [Mass/Vol] 0.37 mg/dL Low 0.55-1.02 [facility] Comment on above: Result Comment: The validity of the calculated GFR GFRAA in patients over70 years has not been determined. Clinical correlation isessential. Performed By: #### L 500.2500, L501.9520, L501.5200 ####[facility] [address] [place], [address] ECRCL 251.83 ml/min Normal [facility] Comment on above: Performed By: #### L 500.2500, L501.9520, L501.5200 ####[facility] [address] [place], [address] EST GFR - AA 278 mL/min Normal >60 [facility] Comment on above: Result Comment: Afri can Finnish GFR Calc Performed By: #### L 500.2500, L501.9520, L501.5200 ####[facility] [address] [place], [address] GAP 7 Normal 5-15 [facility] Comment on above: Performed By: #### L 500.2500, L501.9520, L501.5200 ####[facility] [address] [place], [address] GFR/1.73 sq M.predicted among non-blacks MDRD (S/P/Bld) [Vol rate/Area] 230 mL/min/{1.73_m2} Normal >60 [facility] Comment on above: Result Comment: Non- GFR Calc Performed By: #### L 500.2500, L501.9520, L501.5200 ####[facility] [address] [place], [address] Glucose [Mass/Vol] 94 mg/dL Normal 74-106 [facility] Comment on above: Performed By: #### L 500.2500, L501.9520, L501.5200 ####[facility] [address] [place], [address] Potassium [Moles/Vol] 3.9 mmol/L Normal 3.5-5.1 [facility] Comment on above: Performed By: #### L 500.2500, L501.9520, L501.5200 ####[facility] [address] [place], [address] Sodium [Moles/Vol] 138 mmol/L Normal 136-145 [facility] Comment on above: Performed By: #### L 500.2500, L501.9520, L501.5200 ####[facility] [address] [place], [address] Urea nitrogen [Mass/Vol] 5 mg/dL Low 7-18 [facility] Comment on above: Performed By: #### L 500.2500, L501.9520, L501.5200 ####[facility] [address] [place], [address] Magnesiumon 11-06-2023 Magnesium [Mass/Vol] 1.8 mg/dL Normal 1.6-2.6 [facility] Comment on above: Performed By: #### L 500.2500, L501.9520, L501.5200 ####[facility] [address] [place], [address] Thyroid Stim Hormone (TSH)on 11-06-2023 TSH 2.290 uIU/mL Normal 0.358-3.74 0 [facility] Comment on above: Performed By: #### L 500.2500, L501.9520, L501.5200 ####[facility] [address] [place], [address] Alcohol, Blood (Medical)-Ser umon 11-05-2023 SERUM ETOH < 3.0 Normal [facility] Comment on above: Result Comment: The serum:whole blood ethanol ratio is approximately 1.14and varies slightly with hematocrit.Medical Alcohol reference interval and critical value innon-tolerant individuals; 50 - 100 Impairment 100 Intoxication 100 - 250 Severe Poisoning 250 - 400 Deep/possible fatal coma Performed By: #### L 505.5000, L501.9100 ####[facility] [address] [place], [address] Basic Metabolic Profile (BMP )on 11-05-2023 BUN/CRE 17.7 RATIO Normal 10-20 [facility] Comment on above: Performed By: #### L 100.0100, L500.2500 ####[facility] [address] [place], [address] CA,Total 8.9 mg/dL Normal 8.5-10.1 [facility] Comment on above: Performed By: #### L 100.0100, L500.2500 ####[facility] [address] [place], [address] Chloride [Moles/Vol] 104 mmol/L Normal 98-107 [facility] Comment on above: Performed By: #### L 100.0100, L500.2500 ####[facility] [address] [place], [address] CO2 [Moles/Vol] 31.0 mmol/L Normal 21.0-32.0 [facility] Comment on above: Performed By: #### L 100.0100, L500.2500 ####[facility] [address] [place], [address] Creatinine [Mass/Vol] 0.56 mg/dL Normal 0.55-1.02 [facility] Comment on above: Result Comment: The validity of the calculated GFR GFRAA in patients over70 years has not been determined. Clinical correlation isessential. Performed By: #### L 100.0100, L500.2500 ####[facility] [address] [place], [address] ECRCL 165.80 ml/min Normal [facility] Comment on above: Performed By: #### L 100.0100, L500.2500 ####[facility] [address] [place], [address] EST GFR - AA 169 mL/min Normal >60 [facility] Comment on above: Result Comment: Afri can Finnish GFR Calc Performed By: #### L 100.0100, L500.2500 ####[facility] [address] [place], [address] GAP 5 Normal 5-15 [facility] Comment on above: Performed By: #### L 100.0100, L500.2500 ####[facility] [address] [place], [address] GFR/1.73 sq M.predicted among non-blacks MDRD (S/P/Bld) [Vol rate/Area] 140 mL/min/{1.73_m2} Normal >60 [facility] Comment on above: Result Comment: Non- GFR Calc Performed By: #### L 100.0100, L500.2500 ####[facility] [address] [place], [address] Glucose [Mass/Vol] 101 mg/dL Normal 74-106 [facility] Comment on above: Result Comment: Fast ing Glucose result from 100 to 125 mg/dLsuggests IMPAIRED HOMEOSTASIS per A.D.A. criteria. Performed By: #### L 100.0100, L500.2500 ####[facility] [address] [place], [address] Potassium [Moles/Vol] 3.2 mmol/L Low 3.5-5.1 [facility] Comment on above: Performed By: #### L 100.0100, L500.2500 ####[facility] [address] [place], [address] Sodium [Moles/Vol] 140 mmol/L Normal 136-145 [facility] Comment on above: Performed By: #### L 100.0100, L500.2500 ####[facility] [address] [place], [address] Urea nitrogen [Mass/Vol] 10 mg/dL Normal 7-18 [facility] Comment on above: Performed By: #### L 100.0100, L500.2500 ####[facility] [address] [place], [address] CBC W/Diff, Automatedon 10-15 Absolute Neut Normal 2.0-7.7 [facility] Comment on above: Result Comment: Canc elled via OM: MD Ordered Performed By: #### L 505.5000, L100.0100, L700.6800, L500.4050 ####[facility] [address] [place], [address] HCT Normal 37-47 [facility] Comment on above: Result Comment: Canc elled via OM: MD Ordered Performed By: #### L 505.5000, L100.0100, L700.6800, L500.4050 ####[facility] [address] [place], [address] HGB Normal 12.0-15.0 [facility] Comment on above: Result Comment: Canc elled via OM: MD Ordered Performed By: #### L 505.5000, L100.0100, L700.6800, L500.4050 ####[facility] [address] [place], [address] MCH Normal 27.0-32.0 [facility] Comment on above: Result Comment: Canc elled via OM: MD Ordered Performed By: #### L 505.5000, L100.0100, L700.6800, L500.4050 ####[facility] [address] [place], [address] MCHC Normal 32-36 [facility] Comment on above: Result Comment: Canc elled via OM: MD Ordered Performed By: #### L 505.5000, L100.0100, L700.6800, L500.4050 ####[facility] [address] [place], [address] MCV Normal 81-99 [facility] Comment on above: Result Comment: Canc elled via OM: MD Ordered Performed By: #### L 505.5000, L100.0100, L700.6800, L500.4050 ####[facility] [address] [place], [address] NEUT% Normal 47-70 [facility] Comment on above: Result Comment: Canc elled via OM: MD Ordered Performed By: #### L 505.5000, L100.0100, L700.6800, L500.4050 ####[facility] [address] [place], [address] PLT Normal 150-450 [facility] Comment on above: Result Comment: Canc elled via OM: MD Ordered Performed By: #### L 505.5000, L100.0100, L700.6800, L500.4050 ####[facility] [address] [place], [address] RBC Normal 4.2-5.4 [facility] Comment on above: Result Comment: Canc elled via OM: MD Ordered Performed By: #### L 505.5000, L100.0100, L700.6800, L500.4050 ####[facility] [address] [place], [address] RDW CV Normal 11.6-14.6 [facility] Comment on above: Result Comment: Canc elled via OM: MD Ordered Performed By: #### L 505.5000, L100.0100, L700.6800, L500.4050 ####[facility] [address] [place], [address] RDW SD Normal 35.1-43.9 [facility] Comment on above: Result Comment: Canc elled via OM: MD Ordered Performed By: #### L 505.5000, L100.0100, L700.6800, L500.4050 ####[facility] [address] [place], [address] WBC Normal 4.4-11.0 [facility] Comment on above: Result Comment: Canc elled via OM: MD Ordered Performed By: #### L 505.5000, L100.0100, L700.6800, L500.4050 ####[facility] [address] [place], [address] Absolute Lymph 3.21 X10 3/uL Normal 0.83-4.51 [facility] Comment on above: Performed By: #### L 100.0100, L500.2500 ####[facility] [address] [place], [address] Absolute Neut 2.3 X10 3/uL Normal 2.0-7.7 [facility] Comment on above: Performed By: #### L 100.0100, L500.2500 ####[facility] [address] [place], [address] Basophils/100 WBC (Bld) 0.9 % Normal 0-1 [facility] Comment on above: Performed By: #### L 100.0100, L500.2500 ####[facility] [address] [place], [address] Eosinophils/100 WBC (Bld) 3.2 % Normal 0-5 [facility] Comment on above: Performed By: #### L 100.0100, L500.2500 ####[facility] [address] [place], [address] Erythrocyte distribution width (RBC) [Ratio] 15.3 % High 11.6-14.6 [facility] Comment on above: Performed By: #### L 100.0100, L500.2500 ####[facility] [address] [place], [address] Hematocrit (Bld) [Volume fraction] 46.7 % Normal 37-47 [facility] Comment on above: Performed By: #### L 100.0100, L500.2500 ####[facility] [address] [place], [address] Hemoglobin (Bld) [Mass/Vol] 15.1 g/dL High 12.0-15. 0 [facility] Comment on above: Performed By: #### L 100.0100, L500.2500 ####[facility] [address] [place] [place], [address] IG% 0.200 Normal 0.0-0.9 [facility] Comment on above: Result Comment: IG% - Immature Granulocytes (promyelocytes, myelocytes andmetamyelocytes) > 1% indicates that a LEFT SHIFT is Present. Performed By: #### L 100.0100, L500.2500 ####[facility] [address] [place], [address] Lymphocytes/100 WBC (Bld) 49.2 % High 19-41 [facility] Comment on above: Performed By: #### L 100.0100, L500.2500 ####[facility] [address] [place], [address] MCH (RBC) [Entitic mass] 32.1 pg High 27.0-32.0 [facility] Comment on above: Performed By: #### L 100.0100, L500.2500 ####[facility] [address] [place], [address] MCHC (RBC) [Mass/Vol] 32.3 g/dL Normal 32-36 [facility] Comment on above: Performed By: #### L 100.0100, L500.2500 ####[facility] [address] [place], [address] MCV (RBC) [Entitic vol] 99.2 fL High 81-99 [facility] Comment on above: Performed By: #### L 100.0100, L500.2500 ####[facility] [address] [place], [address] Monocytes/100 WBC (Bld) 10.7 % High 0-10 [facility] Comment on above: Performed By: #### L 100.0100, L500.2500 ####[facility] [address] [place], [address] Neutrophils/100 WBC (Bld) 35.8 % Low 47-70 [facility] Comment on above: Performed By: #### L 100.0100, L500.2500 ####[facility] [address] [place], [address] Nucleated RBC (Bld) [#/Vol] 0 10*3/uL Normal 0-5 [facility] Comment on above: Performed By: #### L 100.0100, L500.2500 ####[facility] [address] [place], [address] Platelet mean volume (Bld) [Entitic vol] 10.3 fL Normal 6.2-12.0 [facility] Comment on above: Performed By: #### L 100.0100, L500.2500 ####[facility] [address] [place], [address] Platelets (Bld) [#/Vol] 238 10*3/uL Normal 150-450 [facility] Comment on above: Performed By: #### L 100.0100, L500.2500 ####[facility] [address] [place], [address] RBC (Bld) [#/Vol] 4.71 10*6/uL Normal 4.2-5.4 [facility] Comment on above: Performed By: #### L 100.0100, L500.2500 ####[facility] [address] [place], [address] RDW SD 56.4 fl High 35.1-43.9 [facility] Comment on above: Performed By: #### L 100.0100, L500.2500 ####[facility] [address] [place], [address] WBC (Bld) [#/Vol] 6.5 10*3/uL Normal 4.4-11.0 [facility] Comment on above: Performed By: #### L 100.0100, L500.2500 ####[facility] [address] [place], [address] Comprehensive Metabolic Prof ilon 11-05-2023 ALB Normal 3.2-5.0 [facility] Comment on above: Result Comment: Canc elled via OM: MD Ordered Performed By: #### L 505.5000, L100.0100, L700.6800, L500.4050 ####[facility] [address] [place], [address] ALK P Normal 45-117 [facility] Comment on above: Result Comment: Canc elled via OM: MD Ordered Performed By: #### L 505.5000, L100.0100, L700.6800, L500.4050 ####[facility] [address] [place], [address] ALT Normal 13-56 [facility] Comment on above: Result Comment: Canc elled via OM: MD Ordered Performed By: #### L 505.5000, L100.0100, L700.6800, L500.4050 ####[facility] [address] [place], [address] AST Normal 15-37 [facility] Comment on above: Result Comment: Canc elled via OM: MD Ordered Performed By: #### L 505.5000, L100.0100, L700.6800, L500.4050 ####[facility] [address] [place], [address] BUN Normal 7-18 [facility] Comment on above: Result Comment: Canc elled via OM: MD Ordered Performed By: #### L 505.5000, L100.0100, L700.6800, L500.4050 ####[facility] [address] [place], [address] BUN/CRE Normal 10-20 [facility] Comment on above: Result Comment: Canc elled via OM: MD Ordered Performed By: #### L 505.5000, L100.0100, L700.6800, L500.4050 ####[facility] [address] [place], [address] CA,Total Normal 8.5-10.1 [facility] Comment on above: Result Comment: Canc elled via OM: MD Ordered Performed By: #### L 505.5000, L100.0100, L700.6800, L500.4050 ####[facility] [address] [place], [address] CL Normal 98-107 [facility] Comment on above: Result Comment: Canc elled via OM: MD Ordered Performed By: #### L 505.5000, L100.0100, L700.6800, L500.4050 ####[facility] [address] [place], [address] CO2 Normal 21.0-32.0 [facility] Comment on above: Result Comment: Canc elled via OM: MD Ordered Performed By: #### L 505.5000, L100.0100, L700.6800, L500.4050 ####[facility] [address] [place], [address] CREAT,SERUM Normal 0.55-1.02 [facility] Comment on above: Result Comment: Canc elled via OM: MD Ordered Performed By: #### L 505.5000, L100.0100, L700.6800, L500.4050 ####[facility] [address] [place], [address] EST GFR Normal >60 [facility] Comment on above: Result Comment: Canc elled via OM: MD Ordered Performed By: #### L 505.5000, L100.0100, L700.6800, L500.4050 ####[facility] [address] [place], [address] EST GFR - AA Normal >60 [facility] Comment on above: Result Comment: Canc elled via OM: MD Ordered Performed By: #### L 505.5000, L100.0100, L700.6800, L500.4050 ####[facility] [address] [place], [address] GAP Normal 5-15 [facility] Comment on above: Result Comment: Canc elled via OM: MD Ordered Performed By: #### L 505.5000, L100.0100, L700.6800, L500.4050 ####[facility] [address] [place], [address] GLU Normal 74-106 [facility] Comment on above: Result Comment: Canc elled via OM: MD Ordered Performed By: #### L 505.5000, L100.0100, L700.6800, L500.4050 ####[facility] [address] [place], [address] Potassium Normal 3.5-5.1 [facility] Comment on above: Result Comment: Canc elled via OM: MD Ordered Performed By: #### L 505.5000, L100.0100, L700.6800, L500.4050 ####[facility] [address] [place], [address] T BILI Normal 0.20-1.00 [facility] Comment on above: Result Comment: Canc elled via OM: MD Ordered Performed By: #### L 505.5000, L100.0100, L700.6800, L500.4050 ####[facility] [address] [place], [address] T PROT Normal 6.4-8.2 [facility] Comment on above: Result Comment: Canc elled via OM: MD Ordered Performed By: #### L 505.5000, L100.0100, L700.6800, L500.4050 ####[facility] [address] [place], [address] Comprehensive Metabolic Profil Normal 136-145 [facility] Comment on above: Result Comment: Canc elled via OM: MD Ordered Performed By: #### L 505.5000, L100.0100, L700.6800, L500.4050 ####[facility] [address] [place], [address] Emergency Department Summary on 11-05-2023 Emergency Department Summary Normal [facility] Emergency Department Summary Normal [facility] H AND P Exam - Hospitaliston 11-05-2023 H&P Exam - Hospitalist Normal [facility] [id number] 11-05-2023 [id number] Normal [facility] Comment on above: Performed By: #### M 8200.2203 ####[facility] [address] [place], [address] ,Serum,hCG Quali.on 11-05-2023 HCG, SERUM QUAL Normal [facility] Comment on above: Result Comment: Canc elled via OM: MD Ordered Performed By: #### L 505.5000, L100.0100, L700.6800, L500.4050 ####[facility] [address] [place], [address] INTERNAL QC OK? Normal [facility] Comment on above: Result Comment: Canc elled via OM: MD Ordered Performed By: #### L 505.5000, L100.0100, L700.6800, L500.4050 ####[facility] [address] [place], [address] RECORD KIT LOT# Normal [facility] Comment on above: Result Comment: Canc elled via OM: MD Ordered Performed By: #### L 505.5000, L100.0100, L700.6800, L500.4050 ####[facility] [address] [place], [address] ,Urineon 11-05-2023 Beta HCG ( test) Ql (U) Negative [facility] Comment on above: Order Comment: COLOR OF URINE MAY AFFECT DIPSTICK RESULTS.HEMATOLOGIST TO SPECIFY Result Comment: Very dilute urine specimens, as indicated by a low specificgravity, may not contain customer success representative levels of hCG.If is still suspected, a first morning urinespecimen should be collected 48 hours later and tested. Performed By: #### L 400.7600, L400.0001 ####[facility] [address] [place], [address] Urinalysis, Completeon 11-04 BACTERIA 3+ /hpf Normal None Seen [facility] Comment on above: Order Comment: COLOR OF URINE MAY AFFECT DIPSTICK RESULTS.HEMATOLOGIST TO SPECIFY Performed By: #### L 400.7600, L400.0001 ####[facility] [address] [place], [address] EPI,SQUAMOUS 10-25 SEEN Normal 5-10 [facility] Comment on above: Order Comment: COLOR OF URINE MAY AFFECT DIPSTICK RESULTS.HEMATOLOGIST TO SPECIFY Performed By: #### L 400.7600, L400.0001 ####[facility] [address] [place], [address] Mucus Ql (Urine sed) 3+ /hpf Normal [facility] Comment on above: Order Comment: COLOR OF URINE MAY AFFECT DIPSTICK RESULTS.HEMATOLOGIST TO SPECIFY Performed By: #### L 400.7600, L400.0001 ####[facility] [address] [place], [address] RBC 10-25 SEEN Normal 0-5 [facility] Comment on above: Order Comment: COLOR OF URINE MAY AFFECT DIPSTICK RESULTS.HEMATOLOGIST TO SPECIFY Performed By: #### L 400.7600, L400.0001 ####[facility] [address] [place], [address] WBC 10-25 SEEN Normal 0-5 [facility] Comment on above: Order Comment: COLOR OF URINE MAY AFFECT DIPSTICK RESULTS.HEMATOLOGIST TO SPECIFY Performed By: #### L 400.7600, L400.0001 ####[facility] [address] [place], [address] Urine Drug Screen (VISTA)on 11-05-2023 AMPHETAMINES Normal <1000 ng/mL [facility] Comment on above: Result Comment: Rajat piña via POLINA: Ordered Performed By: #### L 505.5000, L100.0100, L700.6800, L500.4050 ####[facility] [address] [place], [address] BARBITIURATES Normal < 200 ng/mL [facility] Comment on above: Result Comment: Canc elled via OM: MD Ordered Performed By: #### L 505.5000, L100.0100, L700.6800, L500.4050 ####[facility] [address] [place], [address] BENZODIAZIPINE Normal < 200 ng/mL [facility] Comment on above: Result Comment: Canc elled via OM: MD Ordered Performed By: #### L 505.5000, L100.0100, L700.6800, L500.4050 ####[facility] [address] [place], [address] COCAINE Normal < 300 ng/mL [facility] Comment on above: Result Comment: Canc elled via OM: MD Ordered Performed By: #### L 505.5000, L100.0100, L700.6800, L500.4050 ####[facility] [address] [place], [address] DRUG CONFIRM Normal [facility] Comment on above: Result Comment: Canc elled via OM: MD Ordered Performed By: #### L 505.5000, L100.0100, L700.6800, L500.4050 ####[facility] [address] [place], [address] ECSTACY Normal < 500 ng/mL [facility] Comment on above: Result Comment: Canc elled via OM: MD Ordered Performed By: #### L 505.5000, L100.0100, L700.6800, L500.4050 ####[facility] [address] [place], [address] METHADONE Normal < 300 ng/mL [facility] Comment on above: Result Comment: Canc elled via OM: MD Ordered Performed By: #### L 505.5000, L100.0100, L700.6800, L500.4050 ####[facility] [address] [place], [address] OPIATES Normal < 300 ng/mL [facility] Comment on above: Result Comment: Canc elled via OM: MD Ordered Performed By: #### L 505.5000, L100.0100, L700.6800, L500.4050 ####[facility] [address] [place], [address] PCP Normal < 25 ng/mL [facility] Comment on above: Result Comment: Canc elled via OM: MD Ordered Performed By: #### L 505.5000, L100.0100, L700.6800, L500.4050 ####[facility] [address] [place], [address] THC Normal < 50 ng/mL [facility] Comment on above: Result Comment: Canc elled via OM: MD Ordered Performed By: #### L 505.5000, L100.0100, L700.6800, L500.4050 ####[facility] [address] [place], [address] VISTA UDS PH Normal [facility] Comment on above: Result Comment: Canfelicitas elled via OM: MD Ordered Performed By: #### L 505.5000, L100.0100, L700.6800, L500.4050 ####[facility] [address] [place], [address] AMPHETAMINES Positive Abnormal <1000 ng/mL [facility] Comment on above: Performed By: #### L 505.5000, L501.9100 ####[facility] [address] [place], [address] BARBITIURATES Negative Normal < 200 ng/mL [facility] Comment on above: Performed By: #### L 505.5000, L501.9100 ####[facility] [address] [place], [address] BENZODIAZIPINE Negative Normal < 200 ng/mL [facility] Comment on above: Performed By: #### L 505.5000, L501.9100 ####[facility] [address] [place], [address] COCAINE Negative Normal < 300 ng/mL [facility] Comment on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 09-02-2023 Ethanol [Mass/Vol] g/dL 0.000 - 0.010 g/dL [facility] HCG QUANTITATIVE BLOODon HCG QUANTITATIVE <2 Normal Females <=5 [facility] Comment on above: Result Comment: JEAN [...] gestational trophoblastic disease. Performed By: #### L AB17, LAB46, LAB62, [id number] ####Male Impersonator: MARIXA HOLLAND ([phone])[facility] (SW[facility])[address] [place] [address] Laboratory - Chemistry and C hemistry - challengeon 09-02-2023 HCG.beta subunit Qn Females <=5 mIU/mL [facility] CK [Catalytic activity/Vol] 63 U/L 30 - 170 U/L [facility] - Drug toxicology on 09-02-2023 Amphetamines Screen method >1000 ng/mL Ql (U) Positive [facility] Barbiturates Screen method >200 ng/mL Ql (U) Negative [facility] Benzodiazepines Ql (U) Negative [facility] Methadone Screen Ql (U) Negative S [facility] Opiates Screen Ql (U) Negative [facility] oxyCODONE Ql (U) Negative [facility] Phencyclidine Ql (U) Negative [facility] Laboratory - Microbiology an d Antimicrobial susceptibilityOrdered By: Amari Daily on 09-02-2023 SARS-CoV-2 (COVID-19) Ag IA.rapid Ql (Resp) Negative Negative [facility] Comment on above: A negative result do es not rule out the possibility of SARS-CoV-2 infection. NAAT-based methods should be considered for symptomatic patients presenting greater than seven days after onset of symptoms. Method: Lateral flow immunoassay. Fact sheets for healthcare providers and patients can be found at the following sites: https://www.fda.gov/media/360803/download https://www.fda.gov/media/928574/download No Panel Informationon 09-01 COCAINE METAB. SCREEN Negative [facility] The expected value f or all of the drugs listed above is [...] is needed, request confirmation under separate order. [facility] Values in should double every 2 to [...] or monitor tumors or gestational trophoblastic disease. [facility] Interpretation and review of laboratory results Normal [facility] SARS-COV-2 ANTIGENon 024 SARS-COV-2 ANTIGEN SARS-COV-2 ANTIGEN -BINAX Reference Negative Negative A negative result does not rule out the possibility of SARS-CoV-2 infection. NAAT-based methods should be considered for symptomatic patients presenting greater than seven days after onset of symptoms. Method: Lateral flow immunoassay. Fact sheets for healthcare providers and patients can be found at the following sites: https://www.[facility].gov/wa yary/455636/download https://www.[facility].gov/wa yary/857626/download Normal [facility] Comment on above: Performed By: #### L [id number] #### Male Impersonator: MARIXA HOLLAND ([phone]) [facility] (SWRLAB) [address] [place] [address] SARS-CoV-2 (COVID-19) Ag IA. rapid Ql (Resp)Ordered By: Amari Daily on 09-02-2023 Interpretation and review of laboratory results Normal [facility] Urinalysis complete panel (U )on 09-02-2023 Bacteria LM.HPF (Urine sed) [#/Area] Few Abnormal Negative /HPF [facility] Bilirubin Ql (U) Negative Negative mg/dL [facility] Clarity (U) Turbid Abnormal Clear [facility] Color (U) Light Yellow Lt. Yellow [facility] Epithelial cells.squamous LM.HPF (Urine sed) [#/Area] 6-[address] [facility] Comment on above: Few Epithelial cell clumps present Glucose Ql (U) Normal Normal (<70) mg/dL [facility] Hemoglobin Ql (U) Negative Negative mg/dL [facility] Interpretation and review of laboratory results Abnormal [facility] Ketones (U) [Mass/Vol] Negative Negat kimberly mg/dL [facility] Leukocyte esterase Test strip Ql (U) 25 Abnormal Negative Lolita/uL [facility] Mucus LM.HPF (Urine sed) [#/Area] Negative Negative /LPF [facility] Nitrite Ql (U) Negative Negative [facility] pH (U) 5.5 [pH] 5.0 - 8.0 pH [facility] Protein (U) [Mass/Vol] Negative Negat kimberly mg/dL [facility] RBC LM.HPF (Urine sed) [#/Area] 0-2 [facility] Specific gravity (U) [Rel density] 1.005 1.005 - 1.030 [facility] Urobilinogen (U) [Mass/Vol] Normal Normal (0-1) mg/dL [facility] Volume, Urine 12 mL [facility] WBC LM.HPF (Urine sed) [#/Area] 3-5 [facility] 36on 08-31-2023 36 Left a message to return call to [facility] for appointment with Dr. Booth on 09/04/23. If the patient calls back during business hours, please transfer to our backline. Otherwise, Please arrive 15 minutes early with your insurance card and photo ID. Thank you! [facility] 36on 08-28-2023 36 Rx sent. [place]AR[place] repor t reviewed with no discrepancies. CSA signed in June 2023. Follow up as scheduled. Normal [facility] 36 Looks like she is already scheduled for 09/04/23. 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 Lyrica prescription will need to be re-evaluated. Please make sure patient has follow up scheduled with Dr. Booth after her discharge from [facility]. [facility] 08-19-2023 36 Name of caller: Malka Moon Contact phone number: [phone] ([facility]) Relationship to Patient: patient Provider: Dr. 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 She was taken to an [facility] and pink slipped. There were no local facilities taking patients, so she was sent to [facility] in [place]. While there, she has been struggling with pain and hasn't been receiving her medications. She is hoping Dr. Booth might be available to review her medications with [facility] or possibly help her get reevaluated so she can leave sooner rather than later. Best time of day caller can be reached: Any Patient advised that office/PCP has 24-48 business hours to return their call: Yes [facility] .Urinalysis Microscopic (AO) on 07-05-2024 UA Bacteria 1+ /hpf Abnormal [facility] ([place]) Comment on above: Performed By: #### U FENTS, UOXYS ####[place] [address]#### PREGU, UDRUG, UAMICAO, UA ####[place] [address] [place], [place] [address] UA RBC 0-5 Abnormal None Seen [facility] ([place]) Comment on above: Performed By: #### U FENTS, UOXYS ####[place] [address]#### PREGU, UDRUG, UAMICAO, UA ####[place] [address] [place] [address] UA Squam Epithelial 5-10 Abnormal None Seen [facility] ([place]) Comment on above: Performed By: #### U FENTS, UOXYS ####[place] [address]#### PREGU, UDRUG, UAMICAO, UA ####[place] [address] [place], [place] [address] UA WBC 5-10 Abnormal None Seen [facility] ([place]) Comment on above: Performed By: #### U FENTS, UOXYS ####[place] [address]#### PREGU, UDRUG, UAMICAO, UA ####[place] [address] [place], [place] [address] LABORATORYOrdered By: Lazara Ca on 08-18-2023 Amphetamines [...] *ABN* (08/18/23 1:06 AM) Invalid Interpretation Code 1.015-1.02 5 AO Auto Urine SS UA Specimen Type [...] Seen AO Auto Urine SS LABORATORYOrdered By: Aysa Rosenthal on 08-18-2023 fentaNYL Screen Ql (U) Negative 2 *NA* (08/18/23 1:06 AM) Invalid Interpretation Code Negative AH ADM SS Comment on above: Interpretive Data: T esting has been performed FOR MEDICAL PURPOSES ONLY. oxyCODONE Ql (U) Negative 3 *NA* (08/18/23 1:06 AM) Invalid Interpretation Code Negative AH ADM SS Comment on above: Interpretive Data: T esting has been performed FOR MEDICAL PURPOSES ONLY. PREGUon 08-18-2023 HCG ( test) Ql (U) Negative Normal [facility] ([place]) Comment on above: Performed By: #### U Shauna RENEEOXYS ####[place] [address]#### PREGU, UDRUG, UAMICAO, UA ####[place] [address] [place] [address] test (u) int Not detected Invalid Interpretation Code [facility] ([place]) Comment on above: Performed By: #### U VÍCTOR UOXYS ####[place] [address]#### PREGU, UDRUG, UAMICAO, UA ####[address] [place], [place] [address] UAon 08-18-2023 Color (U) Dark yellow Normal [facility] ([place]) Comment on above: Performed By: #### U VÍCTOR UOXYS ####[place] [address]#### PREGU, UDRUG, UAMICAO, UA ####[facility] [place] [address] Glucose (U) [Mass/Vol] Negative Normal Negative [facility] ([place]) Comment on above: Performed By: #### U FENTS, UOXYS ####[place] [address]#### PREGU, UDRUG, UAMICAO, UA ####[facility] [place] [address] Ketones Ql (U) >=160 Abnormal Negative [facility] ([place]) Comment on above: Performed By: #### U FENTS, UOXYS ####[place] [address]#### PREGU, UDRUG, UAMICAO, UA ####[address] [place] [address] UA Appear Clear Normal Clear [facility] ([place]) Comment on above: Performed By: #### U FENTS, UOXYS ####[place] [address]#### PREGU, UDRUG, UAMICAO, UA ####[place] [address] [place] [address] UA Bili Large Abnormal Negative [facility] ([place]) Comment on above: Performed By: #### U FENTS, UOXYS ####[place] [address]#### PREGU, UDRUG, UAMICAO, UA ####[place] [address] [place] [address] UA Blood Large Abnormal Negative [facility] ([place]) Comment on above: Performed By: #### U FENTS, UOXYS ####[place] [address]#### PREGU, UDRUG, UAMICAO, UA ####[place] [address] [place] [id number] UA Leuk Est Negative Normal Negative [facility] ([place]) Comment on above: Performed By: #### U KRISTOPHERS UOXYS ####[place] [address]#### PREGU, UDRUG, UAMICAO, UA ####[place] [address] [place], [place] [address] UA Nitrite Positive Abnormal Negative [facility] ([place]) Comment on above: Performed By: #### U FENTS, UOXYS ####[place] [address]#### PREGU, UDRUG, UAMICAO, UA ####[place] [address] [place] [address] UA pH 6.0 Normal 5.0 - 8.0 [facility] ([place]) Comment on above: Performed By: #### U VÍCTOR UOXYS ####[place] [address]#### PREGU, UDRUG, UAMICAO, UA ####[place] [address] UA Protein 30 mg/dL Normal Negative [facility] ([place]) Comment on above: Performed By: #### Shauna RENEE UOXYS ####[place] [address]#### PREGU, UDRUG, UAMICAO, UA ####[place] [address] [address] UA Spec Grav >=1.030 Abnormal 1.015-1.02 5 [facility] ([place]) Comment on above: Performed By: #### U KRISTOPHERS UOXYS ####[place] [address]#### PREGU, UDRUG, UAMICAO, UA ####[place] [address] [place], [place] [address] UA Specimen Type Clean Catch Normal [facility] ([place]) Comment on above: Performed By: #### U VÍCTOR UOXYS ####[place] [address]#### PREGU, UDRUG, UAMICAO, UA ####[place] [address] [place] [address] UA Urobilinogen 1.0 E.U./dL Normal 0.2-1.0 [facility] ([place]) Comment on above: Performed By: #### U FENTS, UOXYS ####[place] [address]#### PREGU, UDRUG, UAMICAO, UA ####[place] [address] [place] [address] UDRUGon 08-18-2023 Amphetamine (u) Positive Abnormal Negative [facility] ([place]) Comment on above: Performed By: #### U FENTS, UOXYS ####[place] [address]#### PREGU, UDRUG, UAMICAO, UA ####[place] [address] [place] [address] Barbiturate (u) Negative Normal Negative [facility] ([place]) Comment on above: Performed By: #### U FENTS, UOXYS ####[place] [address]#### PREGU, UDRUG, UAMICAO, UA ####[place] [address] [place] [address] Benzodiazepine (u) Negative Normal Negative [facility] ([place]) Comment on above: Performed By: #### U FENTS, UOXYS ####[place] [address]#### PREGU, UDRUG, UAMICAO, UA ####[place] [address] [place] [address] Cannabinoid (u) Negative Normal Negative [facility] ([place]) Comment on above: Performed By: #### U FENTS, UOXYS ####[place] [address]#### PREGU, UDRUG, UAMICAO, UA ####[place] [address] [place] [address] Cocaine Ql (U) Negative Normal Negative [facility] ([place]) Comment on above: Performed By: #### U FENTS UOXYS ####[place] [address]#### PREGU, UDRUG, UAMICAO, UA ####[place] [address] [place] [address] Methadone Ql (U) Negative Normal Negative [facility] ([place]) Comment on above: Performed By: #### U FENTS UOXYS ####[place] [address]#### PREGU, UDRUG, UAMICAO, UA ####[place] [address] [place] [address] Opiate (u) Negative Normal Negative [facility] ([place]) Comment on above: Performed By: #### U KRISTOPHERS UOXYS ####[place] [address]#### PREGU, UDRUG, UAMICAO, UA ####[facility] [place] [address] PCP (u) Negative Normal Negative [facility] ([place]) Comment on above: Performed By: #### U KRISTOPHERS UOXYS ####[place] [address]#### PREGU, UDRUG, UAMICAO, UA ####[facility] [place] [address] Urine Drugs screened: See Below Normal [facility] ([place]) Comment on above: Result Comment: This drug [...] MEDICAL PURPOSES ONLY. Performed By: #### U FENTS, UOXYS ####[place] [address]#### PREGU, UDRUG, UAMICAO, UA ####[place] [address] [place] [phone] UFENTSon 08-18-2023 Fentanyl (u) Negative Normal Negative [facility] ([place]) Comment on above: Result Comment: Test ing has been performed FOR MEDICAL PURPOSES ONLY. Performed By: #### U FENTS UOXYS ####[place] [address]#### PREGU, UDRUG, UAMICAO, UA ####[place] [address] [place] [phone] UOXYSon 08-18-2023 Oxycodone (u) Negative Normal Negative [facility] ([place]) Comment on above: Result Comment: Test ing has been performed FOR MEDICAL PURPOSES ONLY. Performed By: #### U VÍCTOR UOXYS ####[place] [address]#### PREGU, UDRUG, UAMICAO, UA ####[place] [address] .Auto Diffon 08-17-2023 Basophil, Absolute 0.0 10 3/mcL Normal 0.0-0.2 [facility] ([place]) Comment on above: Performed By: #### G FR, TROPHS, ANEU, CMP, CBC, CK, ACETA, ALC, RYANN, YESSI TOBIAS #### [address] [address] Basophils/100 WBC (Bld) 0.5 % Normal 0.0-2.5 A [facility] ([place]) Comment on above: Performed By: #### G FR, TROPHS, ANEU, CMP, CBC, CK, ACETA, ALC, RYANN, ADMD JOSSW #### [address] [address] Eosinophil, Absolute 0.2 10 3/mcL Normal 0.0-0.4 [facility] ([place]) Comment on above: Performed By: #### G FR, TROPHS, ANEU, CMP, CBC, CK, ACETA, ALC, RYANN, ADIFF, MDW #### [address] [address] Eosinophils/100 WBC (Bld) 2.8 % Normal 0.0-7.0 [facility] ([place]) Comment on above: Performed By: #### G FR, TROPHS, ANEU, CMP, CBC, CK, ACETA, ALC, RYANN, ADIFF, MDW #### [address] [address] Lymphocyte, Absolute 1.7 10 3/mcL Normal 0.8-3.9 [facility] ([place]) Comment on above: Performed By: #### G FR, TROPHS, ANEU, CMP, CBC, CK, ACETA, ALC, RYANN, ADIFF, MDW #### [address] [address] Lymphocytes/100 WBC (Bld) 21.3 % Normal 10.0-50.0 [facility] ([place]) Comment on above: Performed By: #### G FR, TROPHS, ANEU, CMP, CBC, CK, ACETA, ALC, RYANN, ADIFF, MDRosie #### [address] [address] Monocyte, Absolute 0.8 10 3/mcL Normal 0.2-1.0 [facility] ([place]) Comment on above: Performed By: #### G FR, TROPHS, ANEU, CMP, CBC, CK, ACETA, ALC, RYANN, ADIFF, MDRosie #### [address] [address] Monocytes/100 WBC (Bld) 9.4 % Normal 1.7-13.0 [facility] ([place]) Comment on above: Performed By: #### G FR, TROPHS, ANEU, CMP, CBC, CK, ACETA, ALC, RYANN, ADIFF, MDW #### [address] [address] Neutrophils/100 WBC (Bld) 66.0 % Normal 37.0-80.0 [facility] ([place]) Comment on above: Performed By: #### G FR, TROPHS, ANEU, CMP, CBC, CK, ACETA, ALC, RYANN, ADIFFYESSI #### [place] [address] [place], [place] [address] .GFRon 08-17-2023 GFR 156 ml/min/1.73sqm Normal [facility] ([place]) Comment on above: Result Comment: GFR Population [...] CBC, CK, ACETA, ALC, RYANN, ADIFF, YESSI ####[address] [address] GFR Non- 129 ml/min/1.73sqm Normal [facility] ([place]) Comment on above: Result Comment: GFR Population [...] CMP, CBC, CK, ACETA, ALC, RYANN, ADIFF, W ####[address] [address] .MDWon 08-17-2023 Monocyte Distribution Width 19.16 Normal 0.00-20. 00 [facility] ([place]) Comment on above: Result Comment: For ED adult patients suspected of sepsis, MDW<=20.0 does not rule out sepsis or risk of sepsis Performed By: #### G FR, TROPHS, ANEU, CMP, CBC, CK, ACETA, ALC, RYANN, ADIFFYESSI #### [place] [address] .NEUABSon 08-17-2023 Neutrophil, Absolute 5.3 10 3/mcL Normal 2.9-6.2 [facility] ([place]) Comment on above: Performed By: #### G FR, TROPHS, ANEU, CMP, CBC, CK, ACETA, ALC, RYANN, ADYESSI COREAS #### [place] [address] ACETAon 08-17-2023 Acetaminophen [Mass/Vol] 0.0 ug/mL Low 10.0-30.0 [facility] ([place]) Comment on above: Performed By: #### G FR, TROPHS, ANEU, CMP, CBC, CK, ACETA, ALC, RYANN, ADYESSI COREAS ####[place] [address] Ger 08-17-2023 Ethanol Level <3 Normal 0-3 [facility] ([place]) Comment on above: Performed By: #### G FR, TROPHS, ANEU, CMP, CBC, CK, ACETA, ALC, RYANN, ADYESSI COREAS #### [place] [address] CBCon 08-17-2023 Erythrocyte distribution width (RBC) [Ratio] 15.1 % High 11.5-14.5 [facility] ([place]) Comment on above: Performed By: #### G FR, TROPHS, ANEU, CMP, CBC, CK, ACETA, ALC, RYANN, ADYESSI COREAS #### [place] [id number] Hematocrit (Bld) [Volume fraction] 48.9 % High 37.0-47.0 [facility] ([place]) Comment on above: Performed By: #### G FR, TROPHS, ANEU, CMP, CBC, CK, ACETA, ALC, RYANN, ADIFF, MDRosie #### [address] [address] Hgb 16.3 G/dL High 12.0-16.0 [facility] ([place]) Comment on above: Performed By: #### G FR, TROPHS, ANEU, CMP, CBC, CK, ACETA, ALC, RYANN, ADIFF, MDW #### [address] [address] MCH (RBC) [Entitic mass] 32.1 pg High 27.0-31.2 [facility] ([place]) Comment on above: Performed By: #### G FR, TROPHS, ANEU, CMP, CBC, CK, ACETA, ALC, RYANN, ADIFF, MDRosie #### [address] [address] MCHC 33.3 G/dL Normal 33.0-37.0 [facility] ([place]) Comment on above: Performed By: #### G FR, TROPHS, ANEU, CMP, CBC, CK, ACETA, ALC, RYANN, ADIFF, MDRosie #### [address] [address] MCV (RBC) [Entitic vol] 96.4 fL High 80.0-94.0 A [facility] ([place]) Comment on above: Performed By: #### G FR, TROPHS, ANEU, CMP, CBC, CK, ACETA, ALC, RYANN, ADIFF, MDRosie #### [address] [address] Platelet 208 10 3/mcL Normal 130-400 [facility] ([place]) Comment on above: Performed By: #### G FR, TROPHS, ANEU, CMP, CBC, CK, ACETA, ALC, RYANN, ADIFF, MDW #### [address] [place] [address] Platelet mean volume (Bld) [Entitic vol] 9.0 fL Normal 7.4-10.4 [facility] ([place]) Comment on above: Performed By: #### G FR, TROPHS, ANEU, CMP, CBC, CK, ACETA, ALC, RYANN, ADIFF, YESSI #### [place] [address] RBC 5.07 10 6/mcL Normal 4.20-5.40 [facility] ([place]) Comment on above: Performed By: #### G FR, TROPHS, ANEU, CMP, CBC, CK, ACETA, ALC, RYANN, ADIFF, YESSI #### [place] [address] WBC 8.1 10 3/mcL Normal 4.6-10.8 [facility] ([place]) Comment on above: Performed By: #### G FR, TROPHS, ANEU, CMP, CBC, CK, ACETA, ALC, RYANN, ADIFFYESSI #### [address] [address] CKon 08-17-2023 CK [Catalytic activity/Vol] 96 U/L Normal 26-192 [facility] ([place]) Comment on above: Performed By: #### G FR, TROPHS, ANEU, CMP, CBC, CK, ACETA, ALC, RYANN, ADIFF, YESSI #### [address] [address] CMPon 08-17-2023 Albumin Level 3.6 G/dL Normal 3.5-5.0 [facility] ([place]) Comment on above: Performed By: #### G FR, TROPHS, ANEU, CMP, CBC, CK, ACETA, ALC, RYANN, ADIFFYESSI #### [address] [address] Albumin/Globulin [Mass ratio] 0.8 {ratio} Low 1.1-2.5 [facility] ([place]) Comment on above: Performed By: #### G FR, TROPHS, ANEU, CMP, CBC, CK, ACETA, ALC, RYANN, ADIFF, YESSI #### [address] [address] ALP [Catalytic activity/Vol] 101 U/L Normal 40-135 [facility] ([place]) Comment on above: Performed By: #### G FR, TROPHS, ANEU, CMP, CBC, CK, ACETA, ALC, RYANN, ADIFF, YESSI #### [address] [address] ALT [Catalytic activity/Vol] 36 U/L Normal 14-59 [facility] ([place]) Comment on above: Performed By: #### G FR, TROPHS, ANEU, CMP, CBC, CK, ACETA, ALC, RYANN, ADIFF, YESSI #### [place] [address] AST [Catalytic activity/Vol] 50 U/L High 10-40 [facility] ([place]) Comment on above: Performed By: #### G FR, TROPHS, ANEU, CMP, CBC, CK, ACETA, ALC, RYANN, ADIFF, YESSI #### [address] [address] Bili Total 3.1 mg/dL High 0.2-1.0 [facility] ([place]) Comment on above: Result Comment: Use of this assay is not recommended for patients undergoing treatment with eltrombopag due to the potential for falsely elevated results. Performed By: #### G FR, TROPHS, ANEU, CMP, CBC, CK, ACETA, ALC, RYANN, ADIFF, YESSI #### [address] [address] BUN/Creatinine Ratio 26 ratio Normal 7-27 [facility] ([place]) Comment on above: Performed By: #### G FR, TROPHS, ANEU, CMP, CBC, CK, ACETA, ALC, RYANN, ADIFF, YESSI #### [address] [address] Calcium [Mass/Vol] 9.6 mg/dL Normal 8.4-10.2 [facility] ([place]) Comment on above: Performed By: #### G FR, TROPHS, ANEU, CMP, CBC, CK, ACETA, ALC, RYANN, ADJOSS, YESSI #### [address] [address] Chloride [Moles/Vol] 99 mmol/L Normal 98-107 [facility] ([place]) Comment on above: Performed By: #### G FR, TROPHS, ANEU, CMP, CBC, CK, ACETA, ALC, RYANN, ADIFF, YESSI #### [place] [address] CO2 [Moles/Vol] 20 mmol/L Low 22-29 [facility] ([place]) Comment on above: Performed By: #### G FR, TROPHS, ANEU, CMP, CBC, CK, ACETA, ALC, RYANN, ADIFF, YESSI #### [place] [address] Creatinine [Mass/Vol] 0.58 mg/dL Normal 0.55-1.02 [facility] ([place]) Comment on above: Performed By: #### G FR, TROPHS, ANEU, CMP, CBC, CK, ACETA, ALC, RYANN, ADIFF, YESSI #### [address] [address] Electrolyte Balance 18.0 mEq/L High 4.0-15.0 [facility] ([place]) Comment on above: Performed By: #### G FR, TROPHS, ANEU, CMP, CBC, CK, ACETA, ALC, RYANN, ADIFFYESSI #### [address] [address] Globulin 4.6 G/dL Normal [facility] ([place]) Comment on above: Performed By: #### G FR, TROPHS, ANEU, CMP, CBC, CK, ACETA, ALC, RYANN, ADIFF, YESSI #### [address] [address] Glucose [Mass/Vol] 79 mg/dL Normal 70-105 [facility] ([place]) Comment on above: Performed By: #### G FR, TROPHS, ANEU, CMP, CBC, CK, ACETA, ALC, RYANN, ADIFF, YESSI #### [address] [address] Potassium [Moles/Vol] 3.1 mmol/L Low 3.5-5.1 [facility] ([place]) Comment on above: Performed By: #### G FR, TROPHS, ANEU, CMP, CBC, CK, ACETA, ALC, RYANN, ADIFF, YESSI #### [place] [address] Sodium [Moles/Vol] 137 mmol/L Normal 136-145 [facility] ([place]) Comment on above: Performed By: #### G FR, TROPHS, ANEU, CMP, CBC, CK, ACETA, ALC, RYANN, ADIFF, YESSI #### [place] [address] Total Protein 8.2 G/dL Normal 6.4-8.2 [facility] ([place]) Comment on above: Performed By: #### G FR, TROPHS, ANEU, CMP, CBC, CK, ACETA, ALC, RYANN, ADIFF, YESSI #### [place] [address] Urea nitrogen [Mass/Vol] 15 mg/dL Normal 7-18 [facility] ([place]) Comment on above: Performed By: #### G FR, TROPHS, ANEU, CMP, CBC, CK, ACETA, ALC, RYANN, ADJOSS, YESSI #### [place] [address] CVFLURVon 08-17-2023 FLU A PCR Negative Normal Negative [facility] ([place]) Comment on above: Performed By: #### C VFLURV #### [place] [address] FLU B PCR Negative Normal Negative [facility] ([place]) Comment on above: Performed By: #### C VFLURV #### [place] [address] RSV PCR Negative Normal Negative [facility] ([place]) Comment on above: Performed By: #### C VFLURV #### [address] [address] SARS-CoV-2 (COVID-19) RNA AZALEA+probe Ql (Unsp spec) Negative Normal Negative [facility] ([place]) Comment on above: Result Comment: Resu lts [...] results. Performed By: #### C VFLURV #### [address] [address] LABORATORYOrdered By: Norberto Rhoades on 08-17-2023 Acetaminophen [...] Albumin BCP dye [Mass/Vol] 3.6 G/dL Normal 3 .5 - 5.0 G/dL AO ADM SS Albumin/Globulin [...] SS Eosinophils/100 WBC (Bld) 2.8 % Normal 0. 0 - 7.0 % AO Workflow SS Erythrocyte distribution width (RBC) [Ratio] 15.1 % High 11.5 - 14.5 % AO Workflow SS Ethanol [Mass/Vol] mg/dL Normal 0 - 3 mg/dL AO ADM SS GFR/1.73 sq M.predicted among blacks MDRD [...] SS Lymphocytes/100 WBC (Bld) 21.3 % Normal 10 .0 - 50.0 % AO Workflow SS MCH [...] SS Neutrophils/100 WBC (Bld) 66.0 % Normal 37 .0 - 80.0 % AO Workflow SS Platelet [...] (Bld) [#/Vol] 5.07 106/mcL Normal 4.20 - 5.40 10^6/mcL AO Workflow SS Sodium [Moles/Vol] 137 mmol/L Normal 136 - 145 mmol/L AO ADM SS Troponin I.cardiac DL <= 0.01 ng/mL [Mass/Vol] 13 ng/L Normal 0 - 51 ng/L AO ADM SS Comment on above: Interpretive Data: H igh Sensitive Troponin I Reference Ranges: Female: 0-51 ng/L Male: 0-76 ng/L Testing performed on Dimension EXL using a homogeneous sandwich chemiluminescent immunoassay based on [employer] technology. Urea nitrogen [Mass/Vol] 15 mg/dL Normal 7 - 18 mg/dL AO ADM SS Urea nitrogen/Creatinine [Mass ratio] 26 ratio Normal 7 - 27 ratio AO ADM SS WBC (Bld) [#/Vol] 8.1 103/mcL Normal 4.6 - 10.8 10^3/mcL AO Workflow SS SALon 08-17-2023 Salicylate Level <0.2 Low 2.8-20.0 [facility] ([place]) Comment on above: Performed By: #### G FR, TROPHS, ANEU, CMP, CBC, CK, ACETA, ALC, RYANN, YESSI TOBIAS ####[address] [place], [place] [address] [facility] High Sensitivity Troponin I 13 ng/L Normal 0-51 [facility] ([place]) Comment on above: Result Comment: High Sensitive Troponin I Reference Ranges: Female: 0-51 ng/L Male: 0-76 ng/L Testing performed on [employer] using a homogeneous sandwich chemiluminescent immunoassay based on [employer] technology. Performed By: #### G FR, TROPHS, ANEU, CMP, CBC, CK, ACETA, ALC, RYANN, YESSI TOBIAS #### [address] [place], [place] [address] ED NOTEon 06-18-2023 ED NOTE HNO ID: [id number] Author: KATHRINE DENNEY RN Service: Emergency Medicine Author Type: Registered Nurse Type: ED Notes Filed: 06/18/2023 06:15 Note Text: Bus pass given Normal [facility] ED PROV NOTEon 06-18-2023 ED PROV NOTE HNO ID: [id number] Author: DANNY TRAN MD Service: ? Author [...] PAGER/CONTACT #: DANNY TRAN 06/18/23 0558 Normal [facility] [facility] Ethanol SerPl-mCncon 024 Ethanol [Mass/Vol] 0.061 gm/dL High <0.010 [facility] Comment on above: Order Comment: Speci men Type: BLOOD SPECIMEN Ordering Facility: [facility] [place] Address: [address] [place] [address] Performed By: #### 3 4528-0, 73494-5 #### [facility] CLIA [id number] [address] [place] [address] [place] [facility] Ethanol [Mass/Vol] 0.193 gm/dL High <0.010 [facility] Comment on above: Order Comment: Speci men Type: BLOOD SPECIMEN Ordering Facility: [facility] [place] Address: [address] [place] [address] Performed By: #### 3 4528-0, 06237-3 #### [facility] CLIA [id number] [address] [place] [address] [place] APAP SerPl-mCncon 06-17-2023 Acetaminophen [Mass/Vol] ug/mL Low 10-30 [facility] Comment on above: Order Comment: Janes merlos Type: BLOOD SPECIMEN Ordering Facility: [facility] [place] Address[facility] [address] [facility] [place] [address] Result Comment: Toxi c > 50 ug/mL 4 hours post ingestion The Kassandra Richardson nomogram can be used to estimate the probability of hepatotoxicity via the relationship of plasma acetaminophen concentration to the post ingestion interval. (Rukhsana. Pediatrics. 1975. 55:871 to 876 and Kassandra et al. Arch Web Application Tester Med. 1981. 141:380 to 385). Reference ranges and high/low indicator flags are provided as general guidelines only. The treating physician must determine appropriate target levels/dosing based on the specific clinical situation. Performed By: #### 3 4528-0, 97614-9 #### [facility] CLIA [id number] [address] [place] [address] [place] CBC panel Auto (Bld)on 06-16 Erythrocyte distribution width (RBC) [Ratio] 13.1 % Normal 11.5-15.0 [facility] Comment on above: Order Comment: Janes merlos Type: BLOOD SPECIMEN Ordering Facility: [facility] [place] Address: [address] [place] [address] Performed By: #### 3 4528-0, 61923-0 #### [facility] CLIA [id number] [address] [place] [address] [place] Hematocrit (Bld) [Volume fraction] 52.2 % High 36.0-46.0 [facility] Comment on above: Order Comment: Janes merlos Type: BLOOD SPECIMEN Ordering Facility: [facility] [place] Address: [address] [place] [address] Performed By: #### 3 4528-0, 47991-3 #### [facility] CLIA [id number] [address] [place], [place] [address] [place] Hemoglobin (Bld) [Mass/Vol] 17.1 g/dL High 11.5-15. 5 [facility] Comment on above: Order Comment: Speci men Type: BLOOD SPECIMEN Ordering Facility: [facility] [place] Address: [address] [place] [address] Performed By: #### 3 4528-0, 61322-8 #### [facility] CLIA [id number] [address] [place] [address] OF [facility] MCH (RBC) [Entitic mass] 32.3 pg Normal 26.0-34.0 [facility] Comment on above: Order Comment: Speci men Type: BLOOD SPECIMEN Ordering Facility: [facility] [place] Address: [address] [place] [address] Performed By: #### 3 4528-0, 73121-4 #### [facility] CLIA [id number] [address] [place] [address] [place] MCHC (RBC) [Mass/Vol] 32.8 g/dL Normal 30.5-36.0 [facility] Comment on above: Order Comment: Speci men Type: BLOOD SPECIMEN Ordering Facility: [facility] [place] Address: [address] [place] [address] Performed By: #### 3 4528-0, 57312-9 #### [facility] CLIA [id number] [address] [place] [address] [place] MCV (RBC) [Entitic vol] 98.5 fL Normal 80.0-100.0 [facility] Comment on above: Order Comment: Speci men Type: BLOOD SPECIMEN Ordering Facility: [facility] [place] Address: [address] [place] [address] Performed By: #### 3 4528-0, 86263-7 #### [facility] CLIA [id number] [address] [place] [address] [place] Nucleated RBC (Bld) [#/Vol] 10*3/uL Normal <0.01 [facility] Comment on above: Order Comment: Speci men Type: BLOOD SPECIMEN Ordering Facility: [facility] [place] Address: [address] [place] [address] Performed By: #### 3 4528-0, 24113-6 #### [facility] CLIA [id number] [address] [place] [address] [place] Platelet mean volume (Bld) [Entitic vol] 10.7 fL Normal 9.0-12.7 [facility] Comment on above: Order Comment: Speci men Type: BLOOD SPECIMEN Ordering Facility: [facility] [place] Address: [address] [place] [address] Performed By: #### 3 4528-0, 61895-7 #### [facility] CLIA [id number] [address] [place], [place] [address] [place] Platelets (Bld) [#/Vol] 373 10*3/uL Normal 150-400 [facility] Comment on above: Order Comment: Speci men Type: BLOOD SPECIMEN Ordering Facility: [facility] [place] Address: [address] [place] [address] Performed By: #### 3 4528-0, 27076-6 #### [facility] CLIA [id number] [address] [place] [address] [place] RBC (Bld) [#/Vol] 5.30 10*6/uL High 3.90-5.20 [facility] Comment on above: Order Comment: Speci men Type: BLOOD SPECIMEN Ordering Facility: [facility] [place] Address: [address] [place] [address] Performed By: #### 3 4528-0, 12413-9 #### [facility] CLIA [id number] [address] [place], [place] [address] [place] WBC (Bld) [#/Vol] 7.73 10*3/uL Normal 3.70-11.00 [facility] Comment on above: Order Comment: Speci men Type: BLOOD SPECIMEN Ordering Facility: [facility] [place] Address: [address] [place] [address] Performed By: #### 3 4528-0, 69681-7 #### [facility] CLIA [id number] [address] [place], [place] [address] [facility] [place] Comprehensive metabolic 2000 panelon 06-17-2023 Albumin [Mass/Vol] 3.9 g/dL Normal 3.2-5.0 [facility] Comment on above: Order Comment: Speci men Type: BLOOD SPECIMEN Ordering Facility: [facility] [place] Address: [address] [place] [address] Performed By: #### 3 4528-0, 89674-7 #### [facility] CLIA [id number] [address] [place] [address] [place] ALP [Catalytic activity/Vol] 123 U/L High 45-117 [facility] Comment on above: Order Comment: Speci men Type: BLOOD SPECIMEN Ordering Facility: [facility] [place] Address: [address] [place] [address] Performed By: #### 3 4528-0, 88092-5 #### [facility] CLIA [id number] [address] [place] [address] ALT [Catalytic activity/Vol] 24 U/L Normal 13-61 [facility] Comment on above: Order Comment: Speci men Type: BLOOD SPECIMEN Ordering Facility: [facility] [place] Address: [address] [place] [address] Result Comment: Resu lts may be falsely depressed after the administration of Sulfasalazine and/or Sulfapyridine. Performed By: #### 3 4528-0, 22074-9 #### [facility] CLIA [id number] [address] [place] [address] [place] Anion gap [Moles/Vol] 11 mmol/L Normal 5-16 [facility] Comment on above: Order Comment: Speci men Type: BLOOD SPECIMEN Ordering Facility: [facility] [place] Address: [address] [place] [address] Performed By: #### 3 4528-0, 87615-6 #### [facility] CLIA [id number] [address] [place], [place] [address] [place] AST [Catalytic activity/Vol] 30 U/L Normal 8-34 [facility] Comment on above: Order Comment: Speci men Type: BLOOD SPECIMEN Ordering Facility: [facility] [place] Address: [address] [place] [address] Result Comment: Resu lts may be falsely depressed after the administration of Sulfasalazine and/or Sulfapyridine. Performed By: #### 3 4528-0, 67659-1 #### [facility] CLIA [id number] [address] [place] [address] [place] Bilirubin [Mass/Vol] 0.6 mg/dL Normal 0.2-1.0 [facility] Comment on above: Order Comment: Speci men Type: BLOOD SPECIMEN Ordering Facility: [facility] [place] Address: [address] [place] [address] Performed By: #### 3 4528-0, 34731-8 #### [facility] CLIA [id number] [address] [place] [address] [place] Calcium [Mass/Vol] 9.8 mg/dL Normal 8.5-10.5 [facility] Comment on above: Order Comment: Speci men Type: BLOOD SPECIMEN Ordering Facility: [facility] [place] Address: [address] [place] [address] Performed By: #### 3 4528-0, 51187-5 #### [facility] CLIA [id number] [address] [place] [address] [place] Chloride [Moles/Vol] 100 mmol/L Normal 98-107 [facility] Comment on above: Order Comment: Speci men Type: BLOOD SPECIMEN Ordering Facility: [facility] [place] Address: [address] [place] [address] Performed By: #### 3 4528-0, 01122-9 #### [facility] CLIA [id number] [address] [place] [address] [place] CO2 [Moles/Vol] 31 mmol/L Normal 21-32 [facility] Comment on above: Order Comment: Speci men Type: BLOOD SPECIMEN Ordering Facility: [facility] [place] Address: [address] [place] [address] Performed By: #### 3 4528-0, 32808-3 #### [facility] CLIA [id number] [address] [place] [address] [place] Creatinine [Mass/Vol] 0.44 mg/dL Low 0.51-0.95 [facility] Comment on above: Order Comment: Janes merlos Type: BLOOD SPECIMEN Ordering Facility: [facility] [place] Address: [address] [place] [address] Result Comment: Osvaldo ents receiving either N-Acetylcysteine (NAC) or Metamizole prior to venipuncture, may have falsely depressed results. Performed By: #### 3 4528-0, 56035-8 #### [facility] CLIA [id number] [address] [place] [address] [place] Creatinine and Glomerular filtration rate.predicted panel (S/P/Bld) 140 mL/min/1.73m??? Normal >=60 [facility] Comment on above: Order Comment: Janes merlos Type: BLOOD SPECIMEN Ordering Facility: [facility] [place] Address: [address] [place] [address] Result Comment: Mulu mated Glomerular Filtration Rate [...] actual GFR. Performed By: #### 3 4528-0, 79110-4 #### [facility] CLIA [id number] [address] [place] [address] [place] Glucose [Mass/Vol] 103 mg/dL High 70-100 [facility] Comment on above: Order Comment: Janes merlos Type: BLOOD SPECIMEN Ordering Facility: [facility] [place] Address: [address] [place] [address] Result Comment: The [place] Diabetes Association (ADA) provides guidance for cutoff [...] Standards of Medical Care in Diabetes 2016, [place] Diabetes Association. Diabetes Care. 2016.39(Suppl 1). Results may be falsely elevated after the administration of Sulfapyridine. Results may be falsely depressed after the administration of Sulfasalazine. Performed By: #### 3 4528-0, 24709-8 #### [facility] CLIA [id number] [address] [place] [address] [place] Potassium [Moles/Vol] 3.3 mmol/L Low 3.5-5.1 [facility] Comment on above: Order Comment: Janes merlos Type: BLOOD SPECIMEN Ordering Facility: [facility] [place] Address: [address] [place] [address] Performed By: #### 3 4528-0, 32782-9 #### [facility] CLIA [id number] [address] [place] [address] [place] Protein [Mass/Vol] 8.7 g/dL High 6.0-8.5 [facility] Comment on above: Order Comment: Janes merlos Type: BLOOD SPECIMEN Ordering Facility: [facility] [place] Address: [address] [place] [address] Performed By: #### 3 4528-0, 40314-4 #### [facility] CLIA [id number] [address] [place] [address] [place] Sodium [Moles/Vol] 142 mmol/L Normal 136-145 [facility] Comment on above: Order Comment: Janes merlos Type: BLOOD SPECIMEN Ordering Facility: [facility] [place] Address: [address] [place] [address] Performed By: #### 3 4528-0, 61903-3 #### [facility] CLIA [id number] [address] [place] [address] [place] Urea nitrogen [Mass/Vol] mg/dL Low 7- [facility] Comment on above: Order Comment: Speci men Type: BLOOD SPECIMEN Ordering Facility: [facility] [place] Address: [facility] [place] [id number] Performed By: #### 3 4528-0, 28954-7 #### [facility] CLIA [id number] [address] [place] ECG COMPLETEon 06-17-2023 ECG COMPLETE Ventricular Rate : 9 9 BPM Atrial Rate : 99 BPM P-R Interval : 164 ms QRS Duration : 84 ms Q-T Interval : 366 ms QTC Calculation(Bazett) : 469 ms Calculated P [place] : 51 degrees Calculated R [place] : 10 degrees Calculated T [place] : 5 degrees Normal sinus rhythm Nonspecific T wave abnormality Abnormal ECG When compared with ECG of 09-Jun-2023 06:29, No significant change was found Confirmed by JAYESH OVALLE MD ([id number]) on 06/18/2023 11:48:58 AM NAME : DHAVAL MOON PID : [id number] : 2000 Gender : Female Race : Other ORD : [id number] Procedure Date : Jun 17 2023 20:05:39 Edit Date : Jun 18 2023 11:49:02 Diagnosis: Normal sinus rhythm Nonspecific T wave abnormality Abnormal ECG When compared with ECG of 09-Jun-2023 06:29, No significant change was found Confirmed by JAYESH OVALLE MD ([id number]) on 06/18/2023 11:48:58 AM Test Reason : STAT Location : 0 : ED 4 Overread By : JAYESH OVALLE MD Edited By : JAYESH OVALEL MD Referred By : , Acquired by : SIMÓN, [facility] ED NOTEon 06-17-2023 ED NOTE HNO ID: [id number] Author: LUIS SILVER, MCKAYLA Service: Emergency Medicine Author Type: Registered Nurse Type: ED Notes Filed: 06/17/2023 20:27 Note Text: Pt's last drink approx 2 hours ago. [facility] ED NOTE HNO ID: [id number] Author: HIGINIO HOUSTON, Medic Service: ? Author Type: Marble Ceiling Installer and Senior Tax Specialist Type: ED Notes Filed: 06/17/2023 20:00 Note Text: Room cleared out. Belongings removed from pt. Pt placed on tele leads. Pt going back and forth between emotions quickly but is remaining calm and cooperative. Sitter at bedside. [facility] ED NOTE HNO ID: [id number] Author: MARISOL GRIFFITH LPN Service: ? Author Type: LICENSED NURSE Type: ED Notes Filed: 06/17/2023 19:47 Note Text: Bed: 04-ED Expected date: Expected time: Means of arrival: Comments: PIT [facility] ED PROV NOTEon 06-17-2023 ED PROV NOTE HNO ID: [id number] Author: BHARAT LIU MD Service: Emergency Medicine Author Type: [...] 118.4 kg (261 lb) 1.549 m (5' 1) Physical Exam Vitals and nursing note reviewed. [...] Plan 33-year- (more content not included)... Normal [facility] Ethanol SerPl-ncon 024 Ethanol [Mass/Vol] 0.249 gm/dL High <0.010 [facility] Comment on above: Order Comment: Janes merlos Type: BLOOD SPECIMEN Ordering Facility: [facility] [place] Address: [address] [place] [address] Performed By: #### 3 4528-0, 83035-0 #### [facility] CLIA [id number] [facility] [place] [address] [place] HCG Preg Ur Qlon 06-17-2023 HCG ( test) Ql (U) Negative Normal Negative [facility] Comment on above: Order Comment: Janes merlos Type: BLOOD SPECIMEN Ordering Facility: [facility] [place] Address: [address] [place] [address] Result Comment: This test is intended to aid in the early detection of . Very dilute urine samples, as indicated by a low specific gravity, may not contain customer success representative levels of hCG. This test detects [...] for . Performed By: #### 3 4528-0, 01175-2 #### [facility] CLIA [id number] [address] [place] [address] [place] SARS-CoV-2 RNA Resp Ql AZALEA+p robeon 06-17-2023 SARS-CoV-2 (COVID-19) RNA AZALEA+probe Ql (Resp) COVID 19 RESULT: Not detected The method used is RT-PCR or an equivalent NAAT method. Reference Range(the expected result in uninfected individuals): Not detected Normal [facility] Comment on above: Performed By: #### 3 4528-0, 65367-4 #### [facility] CLIA [id number] [address] [place] [address] [place] Salicylates SerPl-mCncon Salicylates [Mass/Vol] mg/dL Normal 2.8-20.0 [facility] Comment on above: Order Comment: Speci men Type: BLOOD SPECIMEN Ordering Facility: [facility] [place] Address: [address] [place] [address] Result Comment: Refe rence ranges and high/low indicator flags are provided as general guidelines only. The treating physician must determine appropriate target levels/dosing based on the specific clinical situation. Performed By: #### 3 4528-0, 43336-3 #### [facility] CLIA [id number] [address] [place] [address] [place] TOXICOLOGY SCREEN, ROUTINE U RINEon 06-17-2023 Amphetamines Confirm (U) [Mass/Vol] Negative Normal Negative [facility] Comment on above: Order Comment: Speci men Type: BLOOD SPECIMEN Ordering Facility: [facility] [place] Address: [address] [place] [address] Result Comment: Cuto ff threshold at 1000 ng/mL. Performed By: #### 3 4528-0, 70385-5 #### [facility] CLIA [id number] [address] [place] [address] [facility] [place] BARBITURATES, URINE Positive Abnormal Negative [facility] Comment on above: Order Comment: Speci men Type: BLOOD SPECIMEN Ordering Facility: [facility] [place] Address: [address] [place] [address] Result Comment: Cuto ff threshold at 200 ng/mL. Performed By: #### 3 4528-0, 74142-0 #### [facility] CLIA [id number] [address] [place] [address] [place] BENZODIAZEPINES, UR Negative Normal Negative [facility] Comment on above: Order Comment: Speci men Type: BLOOD SPECIMEN Ordering Facility: [facility] [place] Address: [address] [place] [address] Result Comment: Cuto ff threshold at 200 ng/mL. Performed By: #### 3 4528-0, 11352-5 #### [facility] CLIA [id number] [address] [place] [address] [place] Cannabinoids Screen Ql (U) Negative Normal Negative [facility] Comment on above: Order Comment: Speci men Type: BLOOD SPECIMEN Ordering Facility: [facility] [place] Address: [address] [place] [address] Result Comment: Cuto ff threshold at 50 ng/mL. Performed By: #### 3 4528-0, 38084-8 #### [facility] CLIA [id number] [address] [place] [address] [place] Cocaine Ql (U) Negative Normal Negative [facility] Comment on above: Order Comment: Speci men Type: BLOOD SPECIMEN Ordering Facility: [facility] [place] Address: [address] [place] [address] Result Comment: Cuto ff threshold at 300 ng/mL. Performed By: #### 3 4528-0, 24662-7 #### [facility] CLIA [id number] [address] [place] [address] [place] Opiates Screen Ql (U) Negative Normal Negative [facility] Comment on above: Order Comment: Speci men Type: BLOOD SPECIMEN Ordering Facility: [facility] [place] Address: [address] [place] [address] Result Comment: Cuto ff threshold at 300 ng/mL. Performed By: #### 3 4528-0, 34047-9 #### [facility] CLIA [id number] [address] [place] [address] STATES [facility] Phencyclidine Ql (U) Negative Normal Negative [facility] Comment on above: Order Comment: Speci men Type: BLOOD SPECIMEN Ordering Facility: [facility] [place] Address: [address] [place] [address] Result Comment: Cuto ff threshold at 25 ng/mL. Performed By: #### 3 4528-0, 74990-9 #### [facility] CLIA [id number] [address] [place] [address] [place] Urinalysis complete panel (U )on 06-17-2023 Bacteria LM.HPF (Urine sed) [#/Area] None Seen Normal None Seen [facility] Comment on above: Order Comment: Speci men Type: BLOOD SPECIMEN Ordering Facility: [facility] [place] Address: [address] [place] [address] Performed By: #### 3 4528-0, 34002-3 #### [facility] CLIA [id number] [address] [place] [address] [place] Bilirubin Ql (U) Negative Normal Negative [facility] Comment on above: Order Comment: Speci men Type: BLOOD SPECIMEN Ordering Facility: [facility] [place] Address: [address] [place] [address] Performed By: #### 3 4528-0, 75588-0 #### [facility] CLIA [id number] [address] [place] [address] [place] Clarity (Unsp spec) Clear Normal Clear [facility] Comment on above: Order Comment: Speci men Type: BLOOD SPECIMEN Ordering Facility: [facility] [place] Address: [address] [place] [address] Performed By: #### 3 4528-0, 24722-0 #### [facility] CLIA [id number] [address] [place] [address] [place] Color (U) Straw Normal Yellow [facility] Comment on above: Order Comment: Speci men Type: BLOOD SPECIMEN Ordering Facility: [facility] [place] Address: [address] [place] [address] Performed By: #### 3 4528-0, 25074-2 #### [facility] CLIA [id number] [address] [place] [address] [place] Epithelial cells LM.HPF (Urine sed) [#/Area] Few Normal [facility] Comment on above: Order Comment: Speci men Type: BLOOD SPECIMEN Ordering Facility: [facility] [place] Address: [address] [place] [address] Performed By: #### 3 4528-0, 09850-7 #### [facility] CLIA [id number] [address] [place] [address] [place] Glucose Test strip (U) [Mass/Vol] Negative Normal Negative [facility] Comment on above: Order Comment: Speci men Type: BLOOD SPECIMEN Ordering Facility: [facility] [place] Address: [address] [place] [address] Performed By: #### 3 4528-0, 94924-6 #### [facility] CLIA [id number] [address] [place] [address] [place] Hemoglobin Ql (U) Negative Normal Negative [facility] Comment on above: Order Comment: Speci men Type: BLOOD SPECIMEN Ordering Facility: [facility] [place] Address: [address] [place] [address] Performed By: #### 3 4528-0, 08478-0 #### [facility] CLIA [id number] [address] [place] [address] [place] Ketones Ql (U) Negative Normal Negative [facility] Comment on above: Order Comment: Speci men Type: BLOOD SPECIMEN Ordering Facility: [facility] [place] Address: [address] [place] [address] Performed By: #### 3 4528-0, 44217-9 #### [facility] CLIA [id number] [address] [place] [address] Leukocyte esterase Test strip Ql (U) Negative Normal Negative [facility] Comment on above: Order Comment: Speci men Type: BLOOD SPECIMEN Ordering Facility: [facility] [place] Address: [address] [place] [address] Performed By: #### 3 4528-0, 51511-3 #### [facility] CLIA [id number] [address] [place] [address] [place] Nitrite Ql (U) Negative Normal Negative [facility] Comment on above: Order Comment: Speci men Type: BLOOD SPECIMEN Ordering Facility: [facility] [place] Address: [address] [place] [address] Performed By: #### 3 4528-0, 86192-1 #### [facility] CLIA [id number] [address] [place] [address] [place] pH (U) 6.0 [pH] Normal 5.0-8.0 [facility] Comment on above: Order Comment: Speci men Type: BLOOD SPECIMEN Ordering Facility: [facility] [place] Address: [address] [place] [address] Performed By: #### 3 4528-0, 62002-4 #### [facility] CLIA [id number] [address] [place] [address] [place] Protein (U) [Mass/Vol] Negative Normal Negative [facility] Comment on above: Order Comment: Speci men Type: BLOOD SPECIMEN Ordering Facility: [facility] [place] Address: [address] [place] [address] Performed By: #### 3 4528-0, 97451-7 #### [facility] CLIA [id number] [address] [place] [address] [place] RBC LM.HPF (Urine sed) [#/Area] 0-3 /HPF Normal 0-3 /HPF [facility] Comment on above: Order Comment: Speci men Type: BLOOD SPECIMEN Ordering Facility: [facility] [place] Address: [address] [place], [place] [address] Performed By: #### 3 4528-0, 15616-9 #### [facility] CLIA [id number] [address] [place] [address] Specific gravity (U) [Rel density] <1.005 Low 1.005-1.03 0 [facility] Comment on above: Order Comment: Speci men Type: BLOOD SPECIMEN Ordering Facility: [facility] [place] Address: [address] [place] [address] Performed By: #### 3 4528-0, 49845-8 #### [facility] CLIA [id number] [address] [place] [address] Urobilinogen Ql (U) Negative Normal Negative [facility] Comment on above: Order Comment: Speci men Type: BLOOD SPECIMEN Ordering Facility: [facility] [place] Address: [address] [place] [address] Performed By: #### 3 4528-0, 12632-4 #### [facility] CLIA [id number] [address] [place] [address] OF [facility] WBC LM.HPF (Urine sed) [#/Area] 0-5 /HPF Normal 0-5 /HPF [facility] Comment on above: Order Comment: Speci men Type: BLOOD SPECIMEN Ordering Facility: [facility] [place] Address: [address] [place] [address] Performed By: #### 3 4528-0, 71722-9 #### [facility] CLIA [id number] [address] [place] [address] CBC W Auto Differential pane l (Bld)on 06-10-2023 Basophils (Bld) [#/Vol] 10*3/uL Normal <0.11 [facility] Comment on above: Order Comment: Speci men Type: BLOOD SPECIMEN Ordering Facility: [facility] [place] Address: [address] [place] [address] Performed By: #### 5 7021-8, 4537-7 #### [facility] CLIA [id number] [address] [place] [address] [place] Basophils/100 WBC (Bld) 0.3 % Normal [facility] Comment on above: Order Comment: Speci men Type: BLOOD SPECIMEN Ordering Facility: [facility] [place] Address: [address] [place] [address] Performed By: #### 5 7021-8, 4537-7 #### [facility] CLIA [id number] [address] [place] [address] [place] Differential cell count method Nom (Bld) Auto Normal [facility] Comment on above: Order Comment: Speci men Type: BLOOD SPECIMEN Ordering Facility: [facility] [place] Address: [address] [place] [address] Performed By: #### 5 7021-8, 4537-7 #### [facility] CLIA [id number] [address] [place] [address] [place] Eosinophils (Bld) [#/Vol] 0.19 10*3/uL Normal <0.46 [facility] Comment on above: Order Comment: Speci men Type: BLOOD SPECIMEN Ordering Facility: [facility] [place] Address: [address] [place] [address] Performed By: #### 5 7021-8, 4537-7 #### [facility] CLIA [id number] [address] [place] [address] [place] Eosinophils/100 WBC (Bld) 2.6 % Normal [facility] Comment on above: Order Comment: Speci men Type: BLOOD SPECIMEN Ordering Facility: [facility] [place] Address: [address] [place] [address] Performed By: #### 5 7021-8, 4537-7 #### [facility] CLIA [id number] [address] [place] [address] [place] Erythrocyte distribution width (RBC) [Ratio] 13.1 % Normal 11.5-15.0 [facility] Comment on above: Order Comment: Speci men Type: BLOOD SPECIMEN Ordering Facility: [facility] [place] Address: [address] [place] [address] Performed By: #### 5 7021-8, 4537-7 #### [facility] CLIA [id number] [address] [place] [address] [place] Hematocrit (Bld) [Volume fraction] 46.2 % High 36.0-46.0 [facility] Comment on above: Order Comment: Speci men Type: BLOOD SPECIMEN Ordering Facility: [facility] [place] Address: [address] [place] [address] Performed By: #### 5 7021-8, 4537-7 #### [facility] CLIA [id number] [address] [place] [address] [place] Hemoglobin (Bld) [Mass/Vol] 15.5 g/dL Normal 11.5-15. 5 [facility] Comment on above: Order Comment: Speci men Type: BLOOD SPECIMEN Ordering Facility: [facility] [place] Address: [address] [place] [address] Performed By: #### 5 7021-8, 4536-7 #### [facility] CLIA [id number] [address] [place] [address] [place] Immature granulocytes (Bld) [#/Vol] 10*3/uL Normal <0.10 [facility] Comment on above: Order Comment: Speci men Type: BLOOD SPECIMEN Ordering Facility: [facility] [place] Address: [address] [place] [address] Performed By: #### 5 7021-8, 7-7 #### [facility] CLIA [id number] [address] [place] [address] [place] Immature granulocytes/100 WBC (Bld) 0.3 % Normal [facility] Comment on above: Order Comment: Speci men Type: BLOOD SPECIMEN Ordering Facility: [facility] [place] Address: [address] [place] [address] Performed By: #### 5 7021-8, 4537-7 #### [facility] CLIA [id number] [address] [place] [address] [place] Lymphocytes (Bld) [#/Vol] 1.42 10*3/uL Normal 1.00-4.0 0 [facility] Comment on above: Order Comment: Speci men Type: BLOOD SPECIMEN Ordering Facility: [facility] [place] Address: [address] [place] [address] Performed By: #### 5 7021-8, 453-7 #### [facility] CLIA [id number] [address] [place] [address] [place] Lymphocytes/100 WBC (Bld) 19.2 % Normal [facility] Comment on above: Order Comment: Speci men Type: BLOOD SPECIMEN Ordering Facility: [facility] [place] Address: [address] [place] [address] Performed By: #### 5 7021-8, 453-7 #### [facility] CLIA [id number] [address] [place] [address] [place] MCH (RBC) [Entitic mass] 33.3 pg Normal 26.0-34.0 [facility] Comment on above: Order Comment: Speci men Type: BLOOD SPECIMEN Ordering Facility: [facility] [place] Address: [address] [place] [address] Performed By: #### 5 7021-8, 7 #### [facility] CLIA [id number] [address] [place] [address] [place] MCHC (RBC) [Mass/Vol] 33.5 g/dL Normal 30.5-36.0 [facility] Comment on above: Order Comment: Speci men Type: BLOOD SPECIMEN Ordering Facility: [facility] [place] Address: [address] [place] [address] Performed By: #### 5 7021-8, 453-7 #### [facility] CLIA [id number] [address] [place] [address] [place] MCV (RBC) [Entitic vol] 99.4 fL Normal 80.0-100.0 [facility] Comment on above: Order Comment: Speci men Type: BLOOD SPECIMEN Ordering Facility: [facility] [place] Address: [address] [place] [address] Performed By: #### 5 7021-8, 7-7 #### [facility] CLIA [id number] [address] [place], [place] [address] [place] Monocytes (Bld) [#/Vol] 0.59 10*3/uL Normal <0.87 [facility] Comment on above: Order Comment: Speci men Type: BLOOD SPECIMEN Ordering Facility: [facility] [place] Address: [address] [place] [address] Performed By: #### 5 7021-8, 453-7 #### [facility] CLIA [id number] [address] [place] [address] [place] Monocytes/100 WBC (Bld) 8.0 % Normal [facility] Comment on above: Order Comment: Speci men Type: BLOOD SPECIMEN Ordering Facility: [facility] [place] Address: [address] [place] [address] Performed By: #### 5 7021-8, 7 #### [facility] CLIA [id number] [address] [place] [address] [place] Neutrophils (Bld) [#/Vol] 5.15 10*3/uL Normal 1.45-7.5 0 [facility] Comment on above: Order Comment: Speci men Type: BLOOD SPECIMEN Ordering Facility: [facility] [place] Address: [address] [place] [address] Performed By: #### 5 7021-8, 7 #### [facility] CLIA [id number] [address] [place] [address] [place] Neutrophils/100 WBC (Bld) 69.6 % Normal [facility] Comment on above: Order Comment: Speci men Type: BLOOD SPECIMEN Ordering Facility: [facility] [place] Address: [address] [place] [address] Performed By: #### 5 7021-8, 4537-7 #### [facility] CLIA [id number] [address] [place] [address] [place] Nucleated RBC (Bld) [#/Vol] 10*3/uL Normal <0.01 [facility] Comment on above: Order Comment: Speci men Type: BLOOD SPECIMEN Ordering Facility: [facility] [place] Address: [address] [place] [address] Performed By: #### 5 7021-8, 4536-7 #### [facility] CLIA [id number] [address] [place], [place] [address] [place] Nucleated RBC/100 WBC (Bld) [Ratio] 0.0 /100 WBC Normal [facility] Comment on above: Order Comment: Speci men Type: BLOOD SPECIMEN Ordering Facility: [facility] [place] Address: [address] [place] [address] Performed By: #### 5 7021-8, 4536-7 #### [facility] CLIA [id number] [address] [place] [address] [place] Platelet mean volume (Bld) [Entitic vol] 10.8 fL Normal 9.0-12.7 [facility] Comment on above: Order Comment: Speci men Type: BLOOD SPECIMEN Ordering Facility: [facility] [place] Address: [address] [place] [address] Performed By: #### 5 7021-8, 7 #### [facility] CLIA [id number] [address] [place] [address] [place] Platelets (Bld) [#/Vol] 278 10*3/uL Normal 150-400 [facility] Comment on above: Order Comment: Speci men Type: BLOOD SPECIMEN Ordering Facility: [facility] [place] Address: [address] [place] [address] Performed By: #### 5 7021-8, 4536-7 #### [facility] CLIA [id number] [address] [place] [address] [place] RBC (Bld) [#/Vol] 4.65 10*6/uL Normal 3.90-5.20 [facility] Comment on above: Order Comment: Speci men Type: BLOOD SPECIMEN Ordering Facility: [facility] [place] Address: [address] [place], [place] [address] [place] [address] Performed By: #### 5 7021-8, 4537-7 #### [facility] CLIA [id number] [address] [place], [place] [address] [facility] WBC (Bld) [#/Vol] 7.39 10*3/uL Normal 3.70-11.00 [facility] Comment on above: Order Comment: Speci men Type: BLOOD SPECIMEN Ordering Facility: [facility] [place] [facility] [address] [facility] [place] [address] Performed By: #### 5 7021-8, 4537-7 #### [facility] CLIA [id number] [address] [place], [place] [address] [facility] CNDSon 06-10-2023 CNDS HNO ID: [id number] Author: LUKAS YOO MD Service: Hospital Medicine [...] starting her on blood pressure medications. 06/09, [facility] protocol less than 4 heart rate improved blood pressure is stable. BP 137/95 Pulse 96 Temp 36.4 ?C (97.6 ?F) (Oral) Resp 18 Ht 154.9 cm (5' 1) Wt 119.1 kg (262 lb 8 oz) [...] 90 mcg/actuat (more content not included)... Normal [facility] Comprehensive metabolic 2000 panelon 06-10-2023 Albumin [Mass/Vol] 3.4 g/dL Normal 3.2-5.0 [facility] Comment on above: Order Comment: Janes merlos Type: BLOOD SPECIMEN Ordering Facility: [facility] [place] Address: [address] [place], [place] [address] Performed By: #### 5 7021-8, 4537-7 #### [facility] CLIA [id number] [address] [place] [address] [place] ALP [Catalytic activity/Vol] 87 U/L Normal 45-117 [facility] Comment on above: Order Comment: Janes merlos Type: BLOOD SPECIMEN Ordering Facility: [facility] [place] Address: [address] [place] [address] Performed By: #### 5 7021-8, 4537-7 #### [facility] CLIA [id number] [address] [place] [address] [place] ALT [Catalytic activity/Vol] 24 U/L Normal 13-61 [facility] Comment on above: Order Comment: Janes merlos Type: BLOOD SPECIMEN Ordering Facility: [facility] [place] Address: [address] [place] [address] Result Comment: Resu lts may be falsely depressed after the administration of Sulfasalazine and/or Sulfapyridine. Performed By: #### 5 7021-8, 4537-7 #### [facility] CLIA [id number] [address] [place] [address] [place] Anion gap [Moles/Vol] 4 mmol/L Low 5-16 [facility] Comment on above: Order Comment: Janes merlos Type: BLOOD SPECIMEN Ordering Facility: [facility] [place] Address: [address] [place] [address] Performed By: #### 5 7021-8, 4537-7 #### [facility] CLIA [id number] [address] [place] [address] [place] AST [Catalytic activity/Vol] 31 U/L Normal 8-34 [facility] Comment on above: Order Comment: Janes merlos Type: BLOOD SPECIMEN Ordering Facility: [facility] [place] Address: [address] [place] [address] Result Comment: Resu lts may be falsely depressed after the administration of Sulfasalazine and/or Sulfapyridine. Performed By: #### 5 7021-8, 4537-7 #### [facility] CLIA [id number] [address] [place] [address] [place] Bilirubin [Mass/Vol] 1.6 mg/dL High 0.2-1.0 [facility] Comment on above: Order Comment: Janes merlos Type: BLOOD SPECIMEN Ordering Facility: [facility] [place] Address: [address] [place] [address] Performed By: #### 5 7021-8, 4537-7 #### [facility] CLIA [id number] [address] [place] [address] [place] Calcium [Mass/Vol] 9.9 mg/dL Normal 8.5-10.5 [facility] Comment on above: Order Comment: Janes merlos Type: BLOOD SPECIMEN Ordering Facility: [facility] [place] Address: [address] [place] [address] Performed By: #### 5 7021-8, 4537-7 #### [facility] CLIA [id number] [address] [place] [address] [place] Chloride [Moles/Vol] 107 mmol/L Normal 98-107 [facility] Comment on above: Order Comment: Speci men Type: BLOOD SPECIMEN Ordering Facility: [facility] [place] Address: [address] [place] [address] Performed By: #### 5 7021-8, 4537-7 #### [facility] CLIA [id number] [address] [place] [address] [place] CO2 [Moles/Vol] 29 mmol/L Normal 21-32 [facility] Comment on above: Order Comment: Speci men Type: BLOOD SPECIMEN Ordering Facility: [facility] [place] Address: [address] [place] [address] Performed By: #### 5 7021-8, 4537-7 #### [facility] CLIA [id number] [address] [place] [address] [place] Creatinine [Mass/Vol] 0.42 mg/dL Low 0.51-0.95 [facility] Comment on above: Order Comment: Speci men Type: BLOOD SPECIMEN Ordering Facility: [facility] [place] Address: [address] [place] [address] Result Comment: Osvaldo ents receiving either N-Acetylcysteine (NAC) or Metamizole prior to venipuncture, may have falsely depressed results. Performed By: #### 5 7021-8, 4537-7 #### [facility] CLIA [id number] [address] [place] [address] [place] Creatinine and Glomerular filtration rate.predicted panel (S/P/Bld) 141 mL/min/1.73m??? Normal >=60 [facility] Comment on above: Order Comment: Speci men Type: BLOOD SPECIMEN Ordering Facility: [facility] [place] Address: [address] [place] [address] Result Comment: Mulu mated Glomerular Filtration Rate [...] Performed By: #### 5 7021-8, 4537-7 #### [facility] CLIA [id number] [address] [place] [address] [place] Glucose [Mass/Vol] 97 mg/dL Normal 70-100 [facility] Comment on above: Order Comment: Janes merlos Type: BLOOD SPECIMEN Ordering Facility: [facility] [place] Address: [facility] [place] [address] Result Comment: The [place] [employer] (ADA) provides guidance for cutoff [...] Standards of Medical Care in Diabetes 2016, [place] [employer]. Diabetes Care. 2016.39(Suppl 1). Results may be falsely elevated after the administration of Sulfapyridine. Results may be falsely depressed after the administration of Sulfasalazine. Performed By: #### 5 7021-8, 4537-7 #### [facility] CLIA [id number] [address] [place], [place] [address] [place] Potassium [Moles/Vol] 3.7 mmol/L Normal 3.5-5.1 [facility] Comment on above: Order Comment: Janes merlos Type: BLOOD SPECIMEN Ordering Facility: [facility] [place] Address: [address] [place] [address] Performed By: #### 5 7021-8, 4537-7 #### [facility] CLIA [id number] [address] [place] [address] [place] Protein [Mass/Vol] 7.4 g/dL Normal 6.0-8.5 [facility] Comment on above: Order Comment: Speci men Type: BLOOD SPECIMEN Ordering Facility: [facility] [place] Address: [address] [place] [address] Performed By: #### 5 7021-8, 4537-7 #### [facility] CLIA [id number] [address] [place] [address] [place] Sodium [Moles/Vol] 140 mmol/L Normal 136-145 [facility] Comment on above: Order Comment: Speci men Type: BLOOD SPECIMEN Ordering Facility: [facility] [place] Address: [address] [place] [address] Performed By: #### 5 7021-8, 4537-7 #### [facility] CLIA [id number] [address] [place] [address] [place] Urea nitrogen [Mass/Vol] mg/dL Low 7-26 [facility] Comment on above: Order Comment: Speci men Type: BLOOD SPECIMEN Ordering Facility: [facility] [place] Address: [address] [place] [address] Performed By: #### 5 7021-8, 4537-7 #### [facility] CLIA [id number] [address] [place] [address] [place] Magnesium SerPl-mCncon 06-09 Magnesium [Mass/Vol] 1.9 mg/dL Normal 1.6-2.6 [facility] Comment on above: Order Comment: Speci men Type: BLOOD SPECIMEN [facility] [facility] [place] Address: [address] [place] [address] Performed By: #### 5 7021-8, 4537-7 #### [facility] CLIA [id number] [address] [place] [address] [place] Phosphate SerPl-mCncon 06-09 Phosphate [Mass/Vol] 4.5 mg/dL Normal 2.5-4.9 [facility] Comment on above: Order Comment: Janes merlos Type: BLOOD SPECIMEN Ordering Facility: [facility] [place] Address: [address] [place] [address] Result Comment: Elev ated m-protein (paraprotein) levels in the serum may be exhibited in patients with monoclonal gammopathies, causing falsely elevated inorganic phosphorus results. Performed By: #### 5 7021-8, 4537-7 #### [facility] CLIA [id number] [address] [place] [address] [place] CBC panel Auto (Bld)on 06-08 Erythrocyte distribution width (RBC) [Ratio] 13.2 % Normal 11.5-15.0 [facility] Comment on above: Order Comment: Janes merlos Type: BLOOD SPECIMEN Ordering Facility: [facility] [place] Address: [address] [place] [address] Performed By: #### 5 7021-8, 4537-7 #### [facility] CLIA [id number] [address] [place] [address] [place] Hematocrit (Bld) [Volume fraction] 49.3 % High 36.0-46.0 [facility] Comment on above: Order Comment: Janes merlos Type: BLOOD SPECIMEN Ordering Facility: [facility] [place] Address: [address] [place] [address] Performed By: #### 5 7021-8, 4537-7 #### [facility] CLIA [id number] [address] [place] [address] [place] Hemoglobin (Bld) [Mass/Vol] 16.4 g/dL High 11.5-15. 5 [facility] Comment on above: Order Comment: Janes merlos Type: BLOOD SPECIMEN Ordering Facility: [facility] [place] Address: [address] [place] [address] Performed By: #### 5 7021-8, 4537-7 #### [facility] CLIA [id number] [address] [place] [address] [place] MCH (RBC) [Entitic mass] 33.1 pg Normal 26.0-34.0 [facility] Comment on above: Order Comment: Speci men Type: BLOOD SPECIMEN Ordering Facility: [facility] [place] Address: [address] [place] [address] Performed By: #### 5 7021-8, 4537-7 #### [facility] CLIA [id number] [address] [place] [address] [place] MCHC (RBC) [Mass/Vol] 33.3 g/dL Normal 30.5-36.0 [facility] Comment on above: Order Comment: Speci men Type: BLOOD SPECIMEN Ordering Facility: [facility] [place] Address: [address] [place] [address] Performed By: #### 5 7021-8, 4537-7 #### [facility] CLIA [id number] [address] [place] [address] [place] MCV (RBC) [Entitic vol] 99.4 fL Normal 80.0-100.0 [facility] Comment on above: Order Comment: Speci men Type: BLOOD SPECIMEN Ordering Facility: [facility] [place] Address: [address] [place] [address] Performed By: #### 5 7021-8, 4537-7 #### [facility] CLIA [id number] [address] [place] [address] [place] Nucleated RBC (Bld) [#/Vol] 10*3/uL Normal <0.01 [facility] Comment on above: Order Comment: Speci men Type: BLOOD SPECIMEN Ordering Facility: [facility] [place] Address: [address] [place] [address] Performed By: #### 5 7021-8, 4537-7 #### [facility] CLIA [id number] [address] [place] [address] [place] Platelet mean volume (Bld) [Entitic vol] 10.5 fL Normal 9.0-12.7 [facility] Comment on above: Order Comment: Speci men Type: BLOOD SPECIMEN Ordering Facility: [facility] [place] Address: [address] [place] [address] Performed By: #### 5 7021-8, 4537-7 #### [facility] CLIA [id number] [address] [place], [place] [address] [facility] [place] Platelets (Bld) [#/Vol] 279 10*3/uL Normal 150-400 [facility] Comment on above: Order Comment: Speci men Type: BLOOD SPECIMEN Ordering Facility: [facility] [place] Address: [address] [place] [address] Performed By: #### 5 7021-8, 4537-7 #### [facility] CLIA [id number] [address] [place], [place] [address] [place] RBC (Bld) [#/Vol] 4.96 10*6/uL Normal 3.90-5.20 [facility] Comment on above: Order Comment: Speci men Type: BLOOD SPECIMEN Ordering Facility: [facility] [place] Address: [address] [place] [address] Performed By: #### 5 7021-8, 4537-7 #### [facility] CLIA [id number] [address] [place] [address] [place] WBC (Bld) [#/Vol] 8.02 10*3/uL Normal 3.70-11.00 [facility] Comment on above: Order Comment: Speci men Type: BLOOD SPECIMEN Ordering Facility: [facility] [place] Address: [address] [place] [address] Performed By: #### 5 7021-8, 4537-7 #### [facility] CLIA [id number] [address] [place], [place] [address] [facility] [place] Comprehensive metabolic 2000 panelon 06-09-2023 Albumin [Mass/Vol] 3.3 g/dL Normal 3.2-5.0 [facility] Comment on above: Order Comment: Speci men Type: BLOOD SPECIMEN Ordering Facility: [facility] [place] Address: [address] [place] [address] Performed By: #### 5 7021-8, 4537-7 #### [facility] CLIA [id number] [address] [place] [address] [place] ALP [Catalytic activity/Vol] 94 U/L Normal 45-117 [facility] Comment on above: Order Comment: Speci men Type: BLOOD SPECIMEN Ordering Facility: [facility] [place] Address: [address] [place] [address] Performed By: #### 5 7021-8, 4537-7 #### [facility] CLIA [id number] [address] [place] [address] [place] ALT [Catalytic activity/Vol] 32 U/L Normal 13-61 [facility] Comment on above: Order Comment: Speci men Type: BLOOD SPECIMEN Ordering Facility: [facility] [place] Address: [address] [place] [address] Result Comment: Resu lts may be falsely depressed after the administration of Sulfasalazine and/or Sulfapyridine. Performed By: #### 5 7021-8, 4537-7 #### [facility] CLIA [id number] [address] [place] [address] [place] Anion gap [Moles/Vol] 8 mmol/L Normal 5-16 [facility] Comment on above: Order Comment: Speci men Type: BLOOD SPECIMEN Ordering Facility: [facility] [place] Address: [address] [place] [address] Performed By: #### 5 7021-8, 4537-7 #### [facility] CLIA [id number] [address] [place] [address] [place] AST [Catalytic activity/Vol] 34 U/L Normal 8-34 [facility] Comment on above: Order Comment: Speci men Type: BLOOD SPECIMEN Ordering Facility: [facility] [place] Address: [address] [place] [address] Result Comment: Resu lts may be falsely depressed after the administration of Sulfasalazine and/or Sulfapyridine. Performed By: #### 5 7021-8, 4537-7 #### [facility] CLIA [id number] [address] [place] [address] [place] Bilirubin [Mass/Vol] 1.3 mg/dL High 0.2-1.0 [facility] Comment on above: Order Comment: Speci men Type: BLOOD SPECIMEN Ordering Facility: [facility] [place] Address: [facility] [place] [address] Performed By: #### 5 7021-8, 4537-7 #### [facility] CLIA [id number] [address] [place] [address] [place] Calcium [Mass/Vol] 9.4 mg/dL Normal 8.5-10.5 [facility] Comment on above: Order Comment: Speci men Type: BLOOD SPECIMEN Ordering Facility: [facility] [place] Address: [address] [place] [address] Performed By: #### 5 7021-8, 4536-7 #### [facility] CLIA [id number] [address] [place] [address] [place] Chloride [Moles/Vol] 110 mmol/L High 98-107 [facility] Comment on above: Order Comment: Speci men Type: BLOOD SPECIMEN Ordering Facility: [facility] [place] Address: [address] [place] [address] Performed By: #### 5 7021-8, 4536-7 #### [facility] CLIA [id number] [address] [place] [address] [place] CO2 [Moles/Vol] 27 mmol/L Normal 21-32 [facility] Comment on above: Order Comment: Speci men Type: BLOOD SPECIMEN Ordering Facility: [facility] [place] Address: [address] [place] [address] Performed By: #### 5 7021-8, 7-7 #### [facility] CLIA [id number] [address] [place] [address] [place] Creatinine [Mass/Vol] 0.51 mg/dL Normal 0.51-0.95 [facility] Comment on above: Order Comment: Speci men Type: BLOOD SPECIMEN Ordering Facility: [facility] [place] Address: [address] [place] [address] Result Comment: Osvaldo ents receiving either N-Acetylcysteine (NAC) or Metamizole prior to venipuncture, may have falsely depressed results. Performed By: #### 5 7021-8, 4537-7 #### [facility] CLIA [id number] [address] [place] [address] [place] Creatinine and Glomerular filtration rate.predicted panel (S/P/Bld) 135 mL/min/1.73m??? Normal >=60 [facility] Comment on above: Order Comment: Janes merlos Type: BLOOD SPECIMEN Ordering Facility: [facility] [place] Address: [address] [place] [address] Result Comment: Mulu mated Glomerular Filtration Rate [...] Performed By: #### 5 7021-8, 4537-7 #### [facility] CLIA [id number] [address] [place] [address] [place] Glucose [Mass/Vol] 95 mg/dL Normal 70-100 [facility] Comment on above: Order Comment: Janes merlos Type: BLOOD SPECIMEN Ordering Facility: [facility] [place] Address: [address] [place] [address] Result Comment: The [place] Diabetes Association (ADA) provides guidance for cutoff [...] Standards of Medical Care in Diabetes 2016, [place] Diabetes Association. Diabetes Care. 2016.39(Suppl 1). Results may be falsely elevated after the administration of Sulfapyridine. Results may be falsely depressed after the administration of Sulfasalazine. Performed By: #### 5 7021-8, 4537-7 #### [facility] CLIA [id number] [address] [place] [address] [place] Potassium [Moles/Vol] 3.6 mmol/L Normal 3.5-5.1 [facility] Comment on above: Order Comment: Speci men Type: BLOOD SPECIMEN Ordering Facility: [facility] [place] Address: [address] [place] [address] Performed By: #### 5 7021-8, 4536-7 #### [facility] CLIA [id number] [address] [place] [address] [place] Protein [Mass/Vol] 7.3 g/dL Normal 6.0-8.5 [facility] Comment on above: Order Comment: Speci men Type: BLOOD SPECIMEN Ordering Facility: [facility] [place] Address: [address] [place] [address] Performed By: #### 5 7021-8, 4536-7 #### [facility] CLIA [id number] [address] [place] [address] [place] Sodium [Moles/Vol] 145 mmol/L Normal 136-145 [facility] Comment on above: Order Comment: Speci men Type: BLOOD SPECIMEN Ordering Facility: [facility] [place] Address: [address] [place] [address] Performed By: #### 5 7021-8, 7-7 #### [facility] CLIA [id number] [address] [place] [address] [place] Urea nitrogen [Mass/Vol] 5 mg/dL Low 7-26 [facility] Comment on above: Order Comment: Speci men Type: BLOOD SPECIMEN Ordering Facility: [facility] [place] Address: [address] [place] [address] Performed By: #### 5 7021-8, 4537-7 #### [facility] CLIA [id number] [address] [place] [address] [place] ECG COMPLETEon 06-09-2023 ECG COMPLETE Ventricular Rate : 1 25 BPM Atrial Rate : 125 BPM P-R Interval : 156 ms QRS Duration : 86 ms Q-T Interval : 326 ms QTC Calculation(Bazett) : 470 ms Calculated P [place] : 44 degrees Calculated R [place] : 26 degrees Calculated T [place] : 10 degrees Sinus tachycardia Nonspecific T wave abnormality Inferior and Septal leads Otherwise normal ECG When compared with ECG of 08-Jun-2023 17:54, No significant change was found Confirmed by KEYANA LENNON MD ([id number]) on 06/11/2023 7:04:02 PM NAME : DHAVAL MOON PID : [id number] : 2000 Gender : Female Race : Other ORD : [id number] Procedure Date : Jun 09 2023 06:29:25 Edit Date : Jun 11 2023 19:04:03 Diagnosis: Sinus tachycardia Nonspecific T wave abnormality Inferior and Septal leads Otherwise normal ECG When compared with ECG of 08-Jun-2023 17:54, No significant change was found Confirmed by KEYANA LENNON MD ([id number]) on 06/11/2023 7:04:02 PM Test Reason : RT Location : [address] [place] [place] [address] Overread By : KEYANA LENNON MD Edited By : KEYANA LENNON MD Referred By : , Acquired by : JAMES HOLMAN Normal [facility] HIGH SENSITIVITY TROPONIN Io n 06-09-2023 Tropinin I.cardiac panel High sensitivity method 3.0 pg/mL Normal 0.0-34.0 [facility] Comment on above: Order Comment: Speci men Type: BLOOD SPECIMEN Ordering Facility: [facility] [place] Address: [address] [place] [address] Result Comment: This assay uses different antibodies than our current assay, and assays, even by the same drywall contractor may recognize different regions of the antibody and cannot be used interchangeably. Expect results of this assay to run higher than the previous assay. Performed By: #### 5 7021-8, 4537-7 #### [facility] CLIA [id number] [address] [place] [id number] [place] Tropinin I.cardiac panel High sensitivity method <2.5 Normal 0.0-34.0 [facility] Comment on above: Order Comment: Speci men Type: BLOOD SPECIMEN Ordering Facility: [facility] [place] Address: [address] [place] [address] Result Comment: This assay uses different antibodies than our current assay, and assays, even by the same drywall contractor may recognize different regions of the antibody and cannot be used interchangeably. Expect results of this assay to run higher than the previous assay. Performed By: #### 5 7021-8, 4537-7 #### [facility] CLIA [id number] [address] [place] [address] MEDICAL EMERon 06-09-2023 MEDICAL CHRIS HNO ID: [id number] Author: SUKH CLINTON APRN.CNP Service: Hospital Medicine Author Type: Nurse Practitioner Type: Chg in Clinical Condition Filed: 06/09/2023 01:32 Note Text: Patient had reported to the nursing staff that she wishes that she was . She continues to have visual hallucinations and currently attempting to leave A. Capacity hold placed due to delirium and depression. Consult placed to psychiatry. Normal [facility] Magnesium SerPl-mCncon 06-08 Magnesium [Mass/Vol] 2.2 mg/dL Normal 1.6-2.6 [facility] Comment on above: Order Comment: Janes merlos Type: BLOOD SPECIMEN Ordering Facility: [facility] [place] Address: [address] [place] [address] Performed By: #### 5 7021-8, 4537-7 #### [facility] CLIA [id number] [address] [place] [address] [place] NURSING PROGon 06-09-2023 NURSING PROG HNO ID: [id number] Author: ELIZABETH PRESCOTT RN Service: Nursing Author Type: Registered Nurse Type: Nursing Progress Note Filed: 06/09/2023 18:04 Note Text: Patient continues to experience auditory and visual hallucinations. Pt stated that there is a man behind her hospital curtain and in her patient bathroom. This nurse showed the patient that there was not anyone in there. Patient redirected. This nurse and patient hse manager offered patient to turn on her TV or listen to music. Patient refused. Patient continues to listen for noises in the hallway and state that people are talking about her and that there is a MrRiley Walters that is coming to see her from the hallway. Patient redirected. [facility] NUTRITIONon 06-09-2023 NUTRITION HNO ID: [id number] Author: YVETTE CHAWLA RD Service: ? Author Type: Registered Dietitian Type: Nutrition Filed: 06/09/2023 12:35 Note Text: NUTRITION THERAPY INITIAL ASSESSMENT SERVICE DATE: 06/09/2023 SERVICE TIME: 11:00AM Nutrition Assessment: Recommended Malnutrition Diagnosis: Mild Protein-Calorie Malnutrition In the context of: Social/Environmental Circumstance Based on: Unintentional Weight Loss Nutrition Diagnosis: Problem: Unintended weight loss Related to: Lack of ability to participate in self care (reports increased stress in life leading to decrease PO, alcohol abuse) As evidenced by: Medical condition, Patient/family self-report, Food/nutrition related history Estimated kilocalorie needs: 3943-6239 Calorie Calculation Method: Petroleum-St. Jeor (with activity factor) (1.1-1.3) Estimated protein needs (grams): 120-140 Grams protein determined by: [place] body weight (2.5-3.0) Care Plan: Continue current [...] NOW 06/08/232122 Anthropometrics: Height: 154.9 cm (5' 1) Weight: 118.9 kg (262 lb 1.6 oz) [...] disease, HTN MNT Billing: $ Initial Assessment: 16-30 minutes SIGNATURE: Yvette Chawla RD PATIENT NAME: Dhaval Moon DATE: June 09, 2023 TIME: 11:00 AM Normal [facility] TOXICOLOGY SCREEN, ROUTINE U RINEon 06-09-2023 Amphetamines Confirm (U) [Mass/Vol] Positive Abnormal Negative [facility] Comment on above: Order Comment: Speci men Type: BLOOD SPECIMEN Ordering Facility: [facility] [place] Address: [address] [place] [address] Result Comment: Cuto ff threshold at 1000 ng/mL. Performed By: #### 5 7021-8, 4537-7 #### [facility] CLIA [id number] [address] [place] [address] [place] BARBITURATES, URINE Positive Abnormal Negative [facility] Comment on above: Order Comment: Speci men Type: BLOOD SPECIMEN Ordering Facility: [facility] [place] Address: [address] [place] [address] Result Comment: Cuto ff threshold at 200 ng/mL. Performed By: #### 5 7021-8, 4537-7 #### [facility] CLIA [id number] [address] [place] [address] [place] BENZODIAZEPINES, UR Negative Normal Negative [facility] Comment on above: Order Comment: Speci men Type: BLOOD SPECIMEN Ordering Facility: [facility] [place] Address: [address] [place] [address] Result Comment: Cuto ff threshold at 200 ng/mL. Performed By: #### 5 7021-8, 4537-7 #### [facility] CLIA [id number] [address] [place] [address] [place] Cannabinoids Screen Ql (U) Negative Normal Negative [facility] Comment on above: Order Comment: Speci men Type: BLOOD SPECIMEN Ordering Facility: [facility] [place] Address: [address] [place] [address] Result Comment: Cuto ff threshold at 50 ng/mL. Performed By: #### 5 7021-8, 4537-7 #### [facility] CLIA [id number] [address] [place] [address] [place] Cocaine Ql (U) Positive Abnormal Negative [facility] Comment on above: Order Comment: Speci men Type: BLOOD SPECIMEN Ordering Facility: [facility] [place] Address: [address] [place] [address] Result Comment: Cuto ff threshold at 300 ng/mL. Performed By: #### 5 7021-8, 4537-7 #### [facility] CLIA [id number] [address] [place] [address] [place] Opiates Screen Ql (U) Negative Normal Negative [facility] Comment on above: Order Comment: Speci men Type: BLOOD SPECIMEN Ordering Facility: [facility] [place] Address: [address] [place] [address] Result Comment: Cuto ff threshold at 300 ng/mL. Performed By: #### 5 7021-8, 4537-7 #### [facility] CLIA [id number] [address] [place] [address] [place] Phencyclidine Ql (U) Negative Normal Negative [facility] Comment on above: Order Comment: Speci men Type: BLOOD SPECIMEN Ordering Facility: [facility] [place] Address: [address] [place] [address] Result Comment: Cuto ff threshold at 25 ng/mL. Performed By: #### 5 7021-8, 4537-7 #### [facility] CLIA [id number] [address] [place] [address] [place] Basic metabolic 2000 panelon 06-08-2023 Anion gap [Moles/Vol] 10 mmol/L Normal 5-16 [facility] Comment on above: Order Comment: Speci men Type: BLOOD SPECIMENOrdering Facility: [facility] [place] Address: [address] [place] [address] Performed By: #### Rishi ESPINOZA, 99934-9, 5643-2 ####[facility] [id number] [place] [id number] [place] Calcium [Mass/Vol] 10.2 mg/dL Normal 8.5-10.5 [facility] Comment on above: Order Comment: Speci men Type: BLOOD SPECIMENOrdering Facility: [facility] [place] Address: [address] [place] [address] Performed By: #### Rishi ESPINOZA, 05353-7, 5643-2 ####[facility] [id number] [place] [id number] [place] Chloride [Moles/Vol] 108 mmol/L High 98-107 [facility] Comment on above: Order Comment: Speci men Type: BLOOD SPECIMENOrdering Facility: [facility] [place] Address: [address] [place] [address] Performed By: #### Rishi ESPINOZA, 96617-7, 5643-2 ####[facility] [id number] [place] [address] [place] CO2 [Moles/Vol] 25 mmol/L Normal 21-32 [facility] Comment on above: Order Comment: Speci men Type: BLOOD SPECIMENOrdering Facility: [facility] [place] Address: [address] [place] [address] Performed By: #### Rishi ESPINOZA, 53233-3, 5643-2 ####[facility] [id number] [place] [id number] [place] Creatinine [Mass/Vol] 0.50 mg/dL Low 0.51-0.95 [facility] Comment on above: Order Comment: Speci men Type: BLOOD SPECIMENOrdering Facility: [facility] [place] Address: [address] [place] [address] Result Comment: Osvaldo ents receiving either N-Acetylcysteine (NAC) or Metamizole prior to venipuncture, may have falsely depressed results. Performed By: #### H CG, 52088-7, 5643-2 ####[facility] LABORATORYCLIA [id number] [place] [id number] [place] Creatinine and Glomerular filtration rate.predicted panel (S/P/Bld) 135 mL/min/1.73m??? Normal >=60 [facility] Comment on above: Order Comment: Janes merlos Type: BLOOD SPECIMENOrdering Facility: [facility] [place] Address: [address] [place] [address] Result Comment: Mulu mated Glomerular Filtration Rate [...] reflect actual GFR. Performed By: #### H , 03595-1, 5643-2 ####[facility] LABORATORYCLIA [id number] [place] [id number] [place] Glucose [Mass/Vol] 101 mg/dL High 70-100 [facility] Comment on above: Order Comment: Janes merlos Type: BLOOD SPECIMENOrdering Facility: [facility] [place] Address: [address] [place] [address] Result Comment: The [place] Diabetes Association (ADA) provides guidance for cutoff [...] Standards of Medical Care in Diabetes 2016, [place] [employer]. Diabetes Care. 2016.39(Suppl 1). Results may be falsely elevated after the administration of Sulfapyridine. Results may be falsely depressed after the administration of Sulfasalazine. Performed By: #### Rishi ALEXIS, 34796-3, 5643-2 ####[facility] LABORATORYCLIA [id number] [place] [address] [place] Potassium [Moles/Vol] 3.2 mmol/L Low 3.5-5.1 [facility] Comment on above: Order Comment: Speci men Type: BLOOD SPECIMENOrdering Facility: [facility] [place] Address: [address] [place] [address] Performed By: #### Rishi ALEXIS, 59579-4, 5643-2 ####[facility] LABORATORYCLIA [id number] [address] [place] Sodium [Moles/Vol] 143 mmol/L Normal 136-145 [facility] Comment on above: Order Comment: Speci men Type: BLOOD SPECIMENOrdering Facility: [facility] [place] Address: [address] [place] [address] Performed By: #### Rishi ALEXIS, 50875-3, 5643-2 ####[facility] LABORATORYCLIA [id number] [address] [place] Urea nitrogen [Mass/Vol] mg/dL Low 7-26 [facility] Comment on above: Order Comment: Speci men Type: BLOOD SPECIMENOrdering Facility: [facility] [place] Address: [address] [place] [address] Performed By: #### Rishi ALEXIS, 69236-5, 5643-2 ####[facility] LABORATORYCLIA [id number] [address] [place] CBC W Auto Differential pane l (Bld)on 06-08-2023 Basophils (Bld) [#/Vol] 0.04 10*3/uL Normal <0.11 [facility] Comment on above: Order Comment: Speci men Type: BLOOD SPECIMENOrdering Facility: [facility] [place] Address: [address] [place] [address] Performed By: #### 5 7021-8 ####[facility] LABORATORYCLIA [id number] [place] Basophils/100 WBC (Bld) 0.4 % Normal [facility] Comment on above: Order Comment: Speci men Type: BLOOD SPECIMENOrdering Facility: [facility] [place] Address: [address] [place] [address] Performed By: #### 5 7021-8 ####[facility] LABORATORYCLIA [id number] [place] [address] [facility] [place] Differential cell count method Nom (Bld) Auto Normal [facility] Comment on above: Order Comment: Speci men Type: BLOOD SPECIMENOrdering Facility: [facility] [place] Address: [address] [place] [address] Performed By: #### 5 7021-8 ####[facility] LABORATORYCLIA [id number] [address] [place] Eosinophils (Bld) [#/Vol] 0.15 10*3/uL Normal <0.46 [facility] Comment on above: Order Comment: Speci men Type: BLOOD SPECIMENOrdering Facility: [facility] [place] Address: [address] [place] [address] Performed By: #### 5 7021-8 ####[facility] LABORATORYCLIA [id number] [address] Eosinophils/100 WBC (Bld) 1.6 % Normal [facility] Comment on above: Order Comment: Speci men Type: BLOOD SPECIMENOrdering Facility: [facility] [place] Address: [address] [place] [address] Performed By: #### 5 7021-8 ####[facility] LABORATORYCLIA [id number] [address] [place] Erythrocyte distribution width (RBC) [Ratio] 13.2 % Normal 11.5-15.0 [facility] Comment on above: Order Comment: Speci men Type: BLOOD SPECIMENOrdering Facility: [facility] [place] Address: [address] [place] [address] Performed By: #### 5 7021-8 ####[facility] LABORATORYCLIA [id number] [place] [address] [place] Hematocrit (Bld) [Volume fraction] 47.6 % High 36.0-46.0 [facility] Comment on above: Order Comment: Speci men Type: BLOOD SPECIMENOrdering Facility: [facility] [place] Address: [address] [place] [address] Performed By: #### 5 7021-8 ####[facility] LABORATORYCLIA [id number] [place] [address] [place] Hemoglobin (Bld) [Mass/Vol] 16.3 g/dL High 11.5-15. 5 [facility] Comment on above: Order Comment: Speci men Type: BLOOD SPECIMENOrdering Facility: [facility] [place] Address: [address] [place] [address] Performed By: #### 5 7021-8 ####[facility] LABORATORYCLIA [id number] [place] [address] [place] Immature granulocytes (Bld) [#/Vol] 10*3/uL Normal <0.10 [facility] Comment on above: Order Comment: Speci men Type: BLOOD SPECIMENOrdering Facility: [facility] [place] Address: [address] [place] [address] Performed By: #### 5 7021-8 ####[facility] LABORATORYCLIA [id number] [place] [address] [place] Immature granulocytes/100 WBC (Bld) 0.1 % Normal [facility] Comment on above: Order Comment: Speci men Type: BLOOD SPECIMENOrdering Facility: [facility] [place] Address: [address] [place] [address] Performed By: #### 5 7021-8 ####[facility] LABORATORYCLIA [id number] [place] [address] [place] Lymphocytes (Bld) [#/Vol] 2.22 10*3/uL Normal 1.00-4.0 0 [facility] Comment on above: Order Comment: Speci men Type: BLOOD SPECIMENOrdering Facility: [facility] [place] Address: [address] [place] [address] Performed By: #### 5 7021-8 ####[facility] LABORATORYCLIA [id number] [address] [place] Lymphocytes/100 WBC (Bld) 23.8 % Normal [facility] Comment on above: Order Comment: Speci men Type: BLOOD SPECIMENOrdering Facility: [facility] [place] Address: [address] [place] [address] Performed By: #### 5 7021-8 ####[facility] LABORATORYCLIA [id number] [address] [place] MCH (RBC) [Entitic mass] 32.8 pg Normal 26.0-34.0 [facility] Comment on above: Order Comment: Speci men Type: BLOOD SPECIMENOrdering Facility: [facility] [place] Address: [address] [place] [address] Performed By: #### 5 7021-8 ####[facility] LABORATORYCLIA [id number] [address] [place] MCHC (RBC) [Mass/Vol] 34.2 g/dL Normal 30.5-36.0 [facility] Comment on above: Order Comment: Speci men Type: BLOOD SPECIMENOrdering Facility: [facility] [place] Address: [address] [place] [address] Performed By: #### 5 7021-8 ####[facility] LABORATORYCLIA [id number] [address] [place] MCV (RBC) [Entitic vol] 95.8 fL Normal 80.0-100.0 [facility] Comment on above: Order Comment: Speci men Type: BLOOD SPECIMENOrdering Facility: [facility] [place] Address: [address] [place] [address] Performed By: #### 5 7021-8 ####[facility] LABORATORYCLIA [id number] [address] [place] Monocytes (Bld) [#/Vol] 0.63 10*3/uL Normal <0.87 [facility] Comment on above: Order Comment: Speci men Type: BLOOD SPECIMENOrdering Facility: [facility] [place] Address: [address] [place] [address] Performed By: #### 5 7021-8 ####[facility] LABORATORYCLIA [id number] [place] [address] [place] Monocytes/100 WBC (Bld) 6.7 % Normal [facility] Comment on above: Order Comment: Speci men Type: BLOOD SPECIMENOrdering Facility: [facility] [place] Address: [address] [place] [address] Performed By: #### 5 7021-8 ####[facility] LABORATORYCLIA [id number] [place] [address] [place] Neutrophils (Bld) [#/Vol] 6.29 10*3/uL Normal 1.45-7.5 0 [facility] Comment on above: Order Comment: Speci men Type: BLOOD SPECIMENOrdering Facility: [facility] [place] Address: [address] [place] [address] Performed By: #### 5 7021-8 ####[facility] LABORATORYCLIA [id number] [address] [place] Neutrophils/100 WBC (Bld) 67.4 % Normal [facility] Comment on above: Order Comment: Speci men Type: BLOOD SPECIMENOrdering Facility: [facility] [place] Address: [address] [place] [address] Performed By: #### 5 7021-8 ####[facility] LABORATORYCLIA [id number] [place] [address] [place] Nucleated RBC (Bld) [#/Vol] 10*3/uL Normal <0.01 [facility] Comment on above: Order Comment: Speci men Type: BLOOD SPECIMENOrdering Facility: [facility] [place] Address: [address] [place] [address] Performed By: #### 5 7021-8 ####[facility] LABORATORYCLIA [id number] [place] [address] [place] Nucleated RBC/100 WBC (Bld) [Ratio] 0.0 /100 WBC Normal [facility] Comment on above: Order Comment: Speci men Type: BLOOD SPECIMENOrdering Facility: [facility] [place] Address: [address] [place] [address] Performed By: #### 5 7021-8 ####[facility] LABORATORYCLIA [id number] [place] [address] [place] Platelet mean volume (Bld) [Entitic vol] 10.5 fL Normal 9.0-12.7 [facility] Comment on above: Order Comment: Speci men Type: BLOOD SPECIMENOrdering Facility: [facility] [place] Address: [address] [place] [address] Performed By: #### 5 7021-8 ####[facility] LABORATORYCLIA [id number] [place] [id number] [place] Platelets (Bld) [#/Vol] 322 10*3/uL Normal 150-400 [facility] Comment on above: Order Comment: Speci men Type: BLOOD SPECIMENOrdering Facility: [facility] [place] Address: [address] [place] [address] Performed By: #### 5 7021-8 ####[facility] LABORATORYCLIA [id number] [place] [address] [place] RBC (Bld) [#/Vol] 4.97 10*6/uL Normal 3.90-5.20 [facility] Comment on above: Order Comment: Speci men Type: BLOOD SPECIMENOrdering Facility: [facility] [place] Address: [address] [place] [address] Performed By: #### 5 7021-8 ####[facility] LABORATORYCLIA [id number] [place] [id number] [place] WBC (Bld) [#/Vol] 9.34 10*3/uL Normal 3.70-11.00 [facility] Comment on above: Order Comment: Speci men Type: BLOOD SPECIMENOrdering Facility: [facility] [place] Address: [address] [place] [address] Performed By: #### 5 7021-8 ####[facility] LABORATORYCLIA [id number] [place] [address] [place] ECG COMPLETEon 06-08-2023 ECG COMPLETE Ventricular Rate : 1 29 BPM Atrial Rate : 129 BPM P-R Interval : 88 ms QRS Duration : 80 ms Q-T Interval : 370 ms QTC Calculation(Bazett) : 543 ms Calculated P [place] : 50 degrees Calculated R [place] : 56 degrees Calculated T [place] : 44 degrees Sinus tachycardia with short DE Otherwise normal ECG No previous ECGs available Confirmed by JAYESH OVALLE MD ([id number]) on 06/10/2023 10:19:29 AM NAME : DHAVAL MOON PID : [id number] : 2000 Gender : Female Race : Other ORD : [id number] Procedure Date : Jun 08 2023 17:54:26 Edit Date : Jun 10 2023 10:19:30 Diagnosis: Sinus tachycardia with short DE Otherwise normal ECG No previous ECGs available Confirmed by JAYESH OVALLE MD ([id number]) on 06/10/2023 10:19:29 AM Test Reason : STAT Location : 0 : ED D Overread By : JAYESH OVALLE MD Edited By : JAYESH OVALLE MD Referred By : , Acquired by : [facility] ED NOTEon 06-08-2023 ED NOTE HNO ID: [id number] Author: EDIE DAVE RN Service: ? Author Type: Registered Nurse Type: ED Notes Filed: 06/08/2023 21:25 Note Text: Ready to go up [facility] ED PROV NOTEon 06-08-2023 ED PROV NOTE HNO ID: [id number] Author: RICO VALENTE DO Service: ? Author [...] 120.2 kg (265 lb) 1.549 m (5' 1) Physical Exam Vitals and nursing note reviewed. [...] anxiety iss (more content not included)... Normal [facility] ED Triage Noteon 06-08-2023 ED Triage Note HNO ID: [id number] Author: EASTON LEAL PA-C Service: Emergency Medicine Author Type: Physician Timber Sprinkler Type: ED Triage Notes Filed: 06/08/2023 18:05 [...] flush bag SIGNATURE: Easton Leal PA-C Normal [facility] Ethanol SerPl-mCncon 024 Ethanol [Mass/Vol] mg/dL Normal <0.010 [facility] Comment on above: Order Comment: Speci men Type: BLOOD SPECIMENOrdering Facility: [facility] [place] Address: [address] [place] [address] Performed By: #### Rishi ESPINOZA, 23714-2, 5643-2 ####[facility] LABORATORYCLIA [id number] [place] [address] [place] HCG QUALITATIVEon 06-08-2023 HCG, QUALITATIVE Negative Normal Negative [facility] Comment on above: Order Comment: Speci men Type: BLOOD SPECIMENOrdering Facility: [facility] [place] Address: [address] [place] [address] Performed By: #### H ALEXIS, 65060-1, 5643-2 ####[facility] LABORATORYCLIA [id number] [place] [address] [place] HIGH SENSITIVITY TROPONIN Io n 06-08-2023 Tropinin I.cardiac panel High sensitivity method <2.5 Normal 0.0-34.0 [facility] Comment on above: Order Comment: Speci men Type: BLOOD SPECIMENOrdering Facility: [facility] [place] Address: [address] [place] [address] Result Comment: This assay uses different antibodies than our current assay, and assays, even by the same drywall contractor may recognize different regions of the antibody and cannot be used interchangeably. Expect results of this assay to run higher than the previous assay. Performed By: #### H STROP ####[facility] LABORATORYCLIA [id number] [place] [address] [facility] HISTORY PHYSICALon HISTORY PHYSICAL HNO ID: [id number] Author: EASTON OLIVARES DO Service: Hospital Medicine Author Type: Nurse Practitioner Type: H&P Filed: 06/08/2023 23:20 Note Text: Attestation signed by Easton Olivares DO at [...] Olivares DO Date: 06/08/2023 Time: 11:20 PM HISTORY AND PHYSICAL EXAMINATION SERVICE DATE: 06/08/2023 [...] clotting disorders . Does not bruise/bleed easily. Psychiatric/Behavioral : Positive for confusion and hallucinations. The patient [...] Neurological: Men (more content not included)... Normal [facility] Hepatic function 2000 panelo n 06-08-2023 Albumin [Mass/Vol] 3.7 g/dL Normal 3.2-5.0 [facility] Comment on above: Order Comment: Speci men Type: BLOOD SPECIMENOrdering Facility: [facility] [place] Address: [address] [place] [address] Performed By: #### 2 4325-3, 3040-3, 18992-8 ####[facility] LABORATORYCLIA [id number] [place] [address] [place] ALP [Catalytic activity/Vol] 98 U/L Normal 45-117 [facility] Comment on above: Order Comment: Speci men Type: BLOOD SPECIMENOrdering Facility: [facility] [place] Address: [address] [place] [address] Performed By: #### 2 4325-3, 3040-3, ####[facility] LABORATORYCLIA [id number] [place] [id number] [place] ALT [Catalytic activity/Vol] 35 U/L Normal 13-61 [facility] Comment on above: Order Comment: Speci men Type: BLOOD SPECIMENOrdering Facility: [facility] [place] Address: [address] [place] [address] Result Comment: Resu lts may be falsely depressed after the administration of Sulfasalazine and/or Sulfapyridine. Performed By: #### 2 4325-3, 3040-3, ####[facility] LABORATORYCLIA [id number] [place] [id number] [place] AST [Catalytic activity/Vol] 41 U/L High 8-34 [facility] Comment on above: Order Comment: Speci men Type: BLOOD SPECIMENOrdering Facility: [facility] [place] Address: [address] [place] [address] Result Comment: Resu lts may be falsely depressed after the administration of Sulfasalazine and/or Sulfapyridine. Performed By: #### 2 4325-3, 3039-3, ####[facility] LABORATORYCLIA [id number] [place] [id number] [place] Bilirubin [Mass/Vol] 1.1 mg/dL High 0.2-1.0 [facility] Comment on above: Order Comment: Speci men Type: BLOOD SPECIMENOrdering Facility: [facility] [place] Address: [address] [place] [address] Performed By: #### 2 4325-3, 3040-3, ####[facility] LABORATORYCLIA [id number] [place] [id number] [place] Bilirubin.conjugated [Mass/Vol] 0.5 mg/dL High 0.0-0.4 [facility] Comment on above: Order Comment: Speci men Type: BLOOD SPECIMENOrdering Facility: [facility] [place] Address: [address] [place] [address] Performed By: #### 2 4325-3, 3040-3, 43753-3 ####[facility] LABORATORYCLIA [id number] [place] [id number] [place] Protein [Mass/Vol] 8.0 g/dL Normal 6.0-8.5 [facility] Comment on above: Order Comment: Speci men Type: BLOOD SPECIMENOrdering Facility: [facility] [place] Address: [address] [place], [place] [address] Performed By: #### 2 4325-3, 3040-3, ####[facility] LABORATORYCLIA [id number] [place] [id number] [facility] [place] Lipase SerPl-cCncon 06-08-19 24 Lipase [Catalytic activity/Vol] 22 U/L Normal 12-60 [facility] Comment on above: Order Comment: Speci men Type: BLOOD SPECIMENOrdering Facility: [facility] [place] Address: [address] [place], [place] [address] Performed By: #### 2 4325-3, 3040-3, ####[facility] LABORATORYCLIA [id number] [place] [id number] [place] Magnesium SerPl-mCncon 06-07 Magnesium [Mass/Vol] 1.5 mg/dL Low 1.6-2.6 [facility] Comment on above: Order Comment: Speci men Type: BLOOD SPECIMENOrdering Facility: [facility] [place] Address: [address] [place], [place] [address] Performed By: #### 2 4325-3, 3040-3, 85281-0 ####[facility] LABORATORYCLIA [id number] [place] [id number] [place] ED NOTEon 04-21-2023 ED NOTE HNO ID: [id number] Author: MARISOL GRIFFITH LPN Service: ? Author Type: LICENSED NURSE Type: ED Notes Filed: 04/21/2023 19:21 Note Text: Pt called x2, no answer, LWBS after triage. Normal [facility] CBC W Auto Differential pane l (Bld)on 04-11-2023 Basophils (Bld) [#/Vol] 0.04 10*3/uL Normal <0.11 [facility] Comment on above: Order Comment: Speci men Type: BLOOD SPECIMEN Ordering Facility: [facility] [place] Address: [address] [place] [address] Performed By: #### 5 7021-8, 4537-7 #### [facility] CLIA [id number] [address] [place] [address] [place] Basophils/100 WBC (Bld) 0.3 % [facility] Comment on above: Order Comment: Speci men Type: BLOOD SPECIMEN Ordering Facility: [facility] [place] Address: [address] [place] [address] Performed By: #### 5 7021-8, 4536-7 #### [facility] CLIA [id number] [address] [place] [address] [place] Differential cell count method Nom (Bld) Auto [facility] Comment on above: Order Comment: Speci men Type: BLOOD SPECIMEN Ordering Facility: [facility] [place] Address: [address] [place] [address] Performed By: #### 5 7021-8, 7-7 #### [facility] CLIA [id number] [address] [place] [address] [place] Eosinophils (Bld) [#/Vol] 0.19 10*3/uL Normal <0.46 [facility] Comment on above: Order Comment: Speci men Type: BLOOD SPECIMEN Ordering Facility: [facility] [place] Address: [address] [place] [address] Performed By: #### 5 7021-8, 4537-7 #### [facility] CLIA [id number] [address] [place] [address] [place] Eosinophils/100 WBC (Bld) 1.5 % [facility] Comment on above: Order Comment: Speci men Type: BLOOD SPECIMEN Ordering Facility: [facility] [place] Address: [address] [place] [address] Performed By: #### 5 7021-8, 4537-7 #### [facility] CLIA [id number] [address] [place] [address] [place] Erythrocyte distribution width (RBC) [Ratio] 13.1 % Normal 11.5-15.0 [facility] Comment on above: Order Comment: Speci men Type: BLOOD SPECIMEN Ordering Facility: [facility] [place] Address: [address] [place] [address] Performed By: #### 5 7021-8, 453-7 #### [facility] CLIA [id number] [address] [place] [address] [place] Hematocrit (Bld) [Volume fraction] 43.1 % Normal 36.0-46.0 [facility] Comment on above: Order Comment: Speci men Type: BLOOD SPECIMEN Ordering Facility: [facility] [place] Address: [address] [place] [address] Performed By: #### 5 7021-8, 453-7 #### [facility] CLIA [id number] [address] [place] [address] [place] Hemoglobin (Bld) [Mass/Vol] 14.9 g/dL Normal 11.5-15. 5 [facility] Comment on above: Order Comment: Speci men Type: BLOOD SPECIMEN Ordering Facility: [facility] [place] Address: [address] [place] [address] Performed By: #### 5 7021-8, 7-7 #### [facility] CLIA [id number] [address] [place] [address] [place] Immature granulocytes (Bld) [#/Vol] 0.06 10*3/uL Normal <0.10 [facility] Comment on above: Order Comment: Speci men Type: BLOOD SPECIMEN Ordering Facility: [facility] [place] Address: [address] [place] [address] Performed By: #### 5 7021-8, 4537-7 #### [facility] CLIA [id number] [address] [place] [address] [place] Immature granulocytes/100 WBC (Bld) 0.5 % Normal [facility] Comment on above: Order Comment: Speci men Type: BLOOD SPECIMEN Ordering Facility: [facility] [place] Address: [address] [place] [address] Performed By: #### 5 7021-8, 4537-7 #### [facility] CLIA [id number] [address] [place] [address] [place] Lymphocytes (Bld) [#/Vol] 1.66 10*3/uL Normal 1.00-4.0 0 [facility] Comment on above: Order Comment: Speci men Type: BLOOD SPECIMEN Ordering Facility: [facility] [place] Address: [address] [place] [address] Performed By: #### 5 7021-8, 4536-7 #### [facility] CLIA [id number] [address] [place] [address] [place] Lymphocytes/100 WBC (Bld) 13.1 % Normal [facility] Comment on above: Order Comment: Speci men Type: BLOOD SPECIMEN Ordering Facility: [facility] [place] Address: [address] [place] [address] Performed By: #### 5 7021-8, 7 #### [facility] CLIA [id number] [address] [place] [address] [place] MCH (RBC) [Entitic mass] 34.4 pg High 26.0-34.0 [facility] Comment on above: Order Comment: Speci men Type: BLOOD SPECIMEN Ordering Facility: [facility] [place] Address: [address] [place] [address] Performed By: #### 5 7021-8, 4536-7 #### [facility] CLIA [id number] [address] [place] [address] [place] MCHC (RBC) [Mass/Vol] 34.6 g/dL Normal 30.5-36.0 [facility] Comment on above: Order Comment: Speci men Type: BLOOD SPECIMEN Ordering Facility: [facility] [place] Address: [address] [place] [address] Performed By: #### 5 7021-8, 453-7 #### [facility] CLIA [id number] [address] [place] [address] [place] MCV (RBC) [Entitic vol] 99.5 fL Normal 80.0-100.0 [facility] Comment on above: Order Comment: Speci men Type: BLOOD SPECIMEN Ordering Facility: [facility] [place] Address: [address] [place] [address] Performed By: #### 5 7021-8, 7 #### [facility] CLIA [id number] [address] [place] [address] [place] Monocytes (Bld) [#/Vol] 1.03 10*3/uL High <0.87 [facility] Comment on above: Order Comment: Speci men Type: BLOOD SPECIMEN Ordering Facility: [facility] [place] Address: [address] [place] [address] Performed By: #### 5 7021-8, 4536-7 #### [facility] CLIA [id number] [address] [place] [address] [place] Monocytes/100 WBC (Bld) 8.1 % Normal [facility] Comment on above: Order Comment: Speci men Type: BLOOD SPECIMEN Ordering Facility: [facility] [place] Address: [address] [place] [address] Performed By: #### 5 7021-8, 4536-7 #### [facility] CLIA [id number] [address] [place] [address] [place] Neutrophils (Bld) [#/Vol] 9.68 10*3/uL High 1.45-7.5 0 [facility] Comment on above: Order Comment: Speci men Type: BLOOD SPECIMEN Ordering Facility: [facility] [place] Address: [address] [place] [address] Performed By: #### 5 7021-8, 7 #### [facility] CLIA [id number] [address] [place], [place] [address] [place] Neutrophils/100 WBC (Bld) 76.5 % Normal [facility] Comment on above: Order Comment: Speci men Type: BLOOD SPECIMEN Ordering Facility: [facility] [place] Address: [address] [place] [address] Performed By: #### 5 7021-8, 4536-7 #### [facility] CLIA [id number] [address] [place] [address] [place] Nucleated RBC (Bld) [#/Vol] 10*3/uL Normal <0.01 [facility] Comment on above: Order Comment: Speci men Type: BLOOD SPECIMEN Ordering Facility: [facility] [place] Address: [address] [place] [address] Performed By: #### 5 7021-8, 4536-7 #### [facility] CLIA [id number] [address] [place] [address] [place] Nucleated RBC/100 WBC (Bld) [Ratio] 0.0 /100 WBC Normal [facility] Comment on above: Order Comment: Speci men Type: BLOOD SPECIMEN Ordering Facility: [facility] [place] Address: [address] [place] [address] Performed By: #### 5 7021-8, 7 #### [facility] CLIA [id number] [address] [place] [address] [place] Platelet mean volume (Bld) [Entitic vol] 11.4 fL Normal 9.0-12.7 [facility] Comment on above: Order Comment: Speci men Type: BLOOD SPECIMEN Ordering Facility: [facility] [place] Address: [address] [place] [address] Performed By: #### 5 7021-8, 4536-7 #### [facility] CLIA [id number] [address] [place] [address] [place] Platelets (Bld) [#/Vol] 353 10*3/uL Normal 150-400 [facility] Comment on above: Order Comment: Speci men Type: BLOOD SPECIMEN Ordering Facility: [facility] [place] Address: [address] [place] [address] Performed By: #### 5 7021-8, 4537-7 #### [facility] CLIA [id number] [address] [place] [address] [place] RBC (Bld) [#/Vol] 4.33 10*6/uL Normal 3.90-5.20 [facility] Comment on above: Order Comment: Speci men Type: BLOOD SPECIMEN Ordering Facility: [facility] [place] Address: [address] [place] [address] Performed By: #### 5 7021-8, 4537-7 #### [facility] CLIA [id number] [address] [place] [address] [place] WBC (Bld) [#/Vol] 12.66 10*3/uL High 3.70-11.00 [facility] Comment on above: Order Comment: Speci men Type: BLOOD SPECIMEN Ordering Facility: [facility] [place] Address: [address] [place] [address] Performed By: #### 5 7021-8, 4537-7 #### [facility] CLIA [id number] [address] [place] [address] [place] CRP SerPl-mCncon 04-11-2023 CRP [Mass/Vol] 3.5 mg/dL High <1.0 [facility] Comment on above: Order Comment: Speci men Type: BLOOD SPECIMENOrdering Facility: [facility] [place] Address: [address] [place] [address] Performed By: #### 2 4323-8, 5643-2, HCG, 1987- ####[facility] [id number] [address] [place] Comprehensive metabolic 2000 panelon 04-11-2023 Albumin [Mass/Vol] 3.6 g/dL Normal 3.2-5.0 [facility] Comment on above: Order Comment: Speci men Type: BLOOD SPECIMEN Ordering Facility: [facility] [place] Address: [address] [place] [address] Performed By: #### 2 4323-8, 5643-2, HCG, 1987-06 #### [facility] CLIA [id number] [address] [place] [address] [place] ALP [Catalytic activity/Vol] 100 U/L Normal 45-117 [facility] Comment on above: Order Comment: Speci men Type: BLOOD SPECIMEN Ordering Facility: [facility] [place] Address: [address] [place] [address] Performed By: #### 2 4323-8, 5643-2, HCG, 1987-06 #### [facility] CLIA [id number] [address] [place] [address] [place] ALT [Catalytic activity/Vol] 37 U/L Normal 13-61 [facility] Comment on above: Order Comment: Speci men Type: BLOOD SPECIMEN Ordering Facility: [facility] [place] Address: [address] [place] [address] Result Comment: Resu lts may be falsely depressed after the administration of Sulfasalazine and/or Sulfapyridine. Performed By: #### 2 4323-8, 5643-2, HCG, 1987-06 #### [facility] CLIA [id number] [address] [place] [address] [place] Anion gap [Moles/Vol] 14 mmol/L Normal 5-16 [facility] Comment on above: Order Comment: Speci men Type: BLOOD SPECIMEN Ordering Facility: [facility] [place] Address: [address] [place] [address] Performed By: #### 2 4323-8, 5643-2, HCG, 1987-06 #### [facility] CLIA [id number] [address] [place] [address] [place] AST [Catalytic activity/Vol] 59 U/L High 8-34 [facility] Comment on above: Order Comment: Speci men Type: BLOOD SPECIMEN Ordering Facility: [facility] [place] Address: [address], [place] [address] Result Comment: Resu lts may be falsely depressed after the administration of Sulfasalazine and/or Sulfapyridine. Performed By: #### 2 432-8, 5643-2, HCG, 1987-06 #### [facility] CLIA [id number] [address] [place], [place] [address] [place] Bilirubin [Mass/Vol] 2.2 mg/dL High 0.2-1.0 [facility] Comment on above: Order Comment: Speci men Type: BLOOD SPECIMEN Ordering Facility: [facility] [place] Address: [address] [place] [address] Performed By: #### 2 4322-8, 5643-2, HCG, 1987-06 #### [facility] CLIA [id number] [address] [place] [address] [place] Calcium [Mass/Vol] 10.1 mg/dL Normal 8.5-10.5 [facility] Comment on above: Order Comment: Speci men Type: BLOOD SPECIMEN Ordering Facility: [facility] [place] Address: [address] [place] [address] Performed By: #### 2 8, 5642-2, HCG, 1987-06 #### [facility] CLIA [id number] [address] [place] [address] [place] Chloride [Moles/Vol] 102 mmol/L Normal 98-107 [facility] Comment on above: Order Comment: Speci men Type: BLOOD SPECIMEN Ordering Facility: [facility] [place] Address: [address] [place] [address] Performed By: #### 2 4322-8, 43-2, HCG, 1987-06 #### [facility] CLIA [id number] [address] [place] [address] [place] CO2 [Moles/Vol] 23 mmol/L Normal 21-32 [facility] Comment on above: Order Comment: Speci men Type: BLOOD SPECIMEN Ordering Facility: [facility] [place] Address: [address] [place] [address] Performed By: #### 2 432-8, 5643-2, HCG, 1987-06 #### [facility] CLIA [id number] [address] [place] [address] [place] Creatinine [Mass/Vol] 0.38 mg/dL Low 0.51-0.95 [facility] Comment on above: Order Comment: Janes merlos Type: BLOOD SPECIMEN Ordering Facility: [facility] [place] Address: [address] [place] [address] Result Comment: Osvaldo ents receiving either N-Acetylcysteine (NAC) or Metamizole prior to venipuncture, may have falsely depressed results. Performed By: #### 2 4323-8, 5643-2, [facility], 1987-06 #### [facility] CLIA [id number] [address] [place] [address] Creatinine and Glomerular filtration rate.predicted panel (S/P/Bld) 145 mL/min/1.73m??? Normal >=60 [facility] Comment on above: Order Comment: Janes merlos Type: BLOOD SPECIMEN Ordering Facility: [facility] [place] Address: [address] [place] [address] Result Comment: Mulu mated Glomerular Filtration Rate [...] GFR. Performed By: #### 2 4323-8, 5643-2, [facility], 1987-06 #### [facility] CLIA [id number] [address] [place], [place] [address] [place] Glucose [Mass/Vol] 81 mg/dL Normal 70-100 [facility] Comment on above: Order Comment: Janes merlos Type: BLOOD SPECIMEN Ordering Facility: [facility] [place] Address: [address] [place] [address] Result Comment: The [place] [employer] (ADA) provides guidance for cutoff [...] Standards of Medical Care in Diabetes 2016, [place] [employer]. Diabetes Care. 2016.39(Suppl 1). Results may be falsely elevated after the administration of Sulfapyridine. Results may be falsely depressed after the administration of Sulfasalazine. Performed By: #### 2 4323-8, 5643-2, HCG, 1987-06 #### [facility] CLIA [id number] [address] [place] [address] [place] Potassium [Moles/Vol] 3.0 mmol/L Low 3.5-5.1 [facility] Comment on above: Order Comment: Speci men Type: BLOOD SPECIMEN Ordering Facility: [facility] [place] Address: [address] [place] [address] Performed By: #### 2 4323-8, 5643-2, HCG, 1987-06 #### [facility] CLIA [id number] [address] [place] [address] [place] Protein [Mass/Vol] 8.5 g/dL Normal 6.0-8.5 [facility] Comment on above: Order Comment: Speci men Type: BLOOD SPECIMEN Ordering Facility: [facility] [place] Address: [address] [place] [address] Performed By: #### 2 432-8, 5643-2, HCG, 1987-06 #### [facility] CLIA [id number] [address] [place] [address] [place] Sodium [Moles/Vol] 139 mmol/L Normal 136-145 [facility] Comment on above: Order Comment: Speci men Type: BLOOD SPECIMEN Ordering Facility: [facility] [place] Address: [address] [place] [address] Performed By: #### 2 4323-8, 5643-2, HCG, 1987-06 #### [facility] CLIA [id number] [address] [place], [place] [address] [place] Urea nitrogen [Mass/Vol] mg/dL Low 09-07 [facility] Comment on above: Order Comment: Speci men Type: BLOOD SPECIMEN Ordering Facility: [facility] [place] Address: [address] [place] [address] Performed By: #### 2 4323-8, 5643-2, HCG, 1987-06 #### [facility] CLIA [id number] [address] [place] [address] [facility] ED NOTEon 04-11-2023 ED NOTE HNO ID: [id number] Author: MARCUS ZAYAS, MCKAYLA Service: ASSESSMENT Author Type: Registered Nurse Type: ED Notes Filed: 04/11/2023 19:56 Note Text: Pt understands d/c instructions, all questions answeered. Ride on the way. [facility] ED NOTE HNO ID: [id number] Author: YECENIA LUJAN, MCKAYLA Service: ? Author Type: Registered Nurse Type: ED Notes Filed: 04/11/2023 14:45 Note Text: Noted redness and edema of a cellultitc nature to ble [facility] ED PROV NOTEon 04-11-2023 ED PROV NOTE HNO ID: [id number] Author: CHARLY IRVING JR, MD Service: ? Author Type: Physician Type: ED Provider Notes Filed: 04/11/2023 19:42 Note Text: ED Provider Note Patient Name: Dhaval Moon : 2000 SERVICE DATE: 04/11/23 History Patient presents with: Edema: Cellulitis starting 2 weeks ago, was in [facility] [place] 4 times for same HPI PAST MEDICAL [...] 135.6 kg (299 lb) 1.575 m (5' 2) Physical Exam Diagnostic Testing ED Labs Ordered [...] 9.68 (*) 1.45 - 7.50 k/uL Abs [place] 1.03 (*) <0.87 k/uL All other components [...] laboratory APTT reagent in use throughout the [facility]. 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 Multiple imaging studies at that time including CT scan of the brain and chest had been obtained. Was not discharged with any antibiotics for the erythema of her lower extremities. Admission considered: Yes Escalation of care including admission/observation considered. Reason(s) for deciding against admission/observation: Patient has slight tachycardia and leukocytosis. She states that she feels well. She would like to try to manage this as a (more content not included)... Normal [facility] ED PROV NOTE HNO ID: [id number] Author: WENDY HAINES PA-C Service: ? Author Type: Physician Timber Sprinkler Type: ED Provider Notes Filed: 04/11/2023 19:46 Note Text: ED Provider Note Patient Name: Dhaval Moon : 2000 SERVICE DATE: 04/11/23 History Patient presents with: Edema: Cellulitis starting 2 weeks ago, was in [facility] 4 times for same 22-year-old female with [...] temperature at home. Patient was seen at [facility] emergency department last week reportedly and was [...] 135.6 kg (299 lb) 1.575 m (5' 2) Physical Exam Vitals and nursing note reviewed. [...] 9.68 (*) 1.45 - 7.50 k/uL Abs [place] 1.03 (*) <0.87 k/uL All other components [...] laboratory APTT reagent in use throughout the [facility]. ALCOHOL/ETHANOL BLD - Normal HCG QUAL BLD - Normal XR FOOT GENERAL 3V AP/LAT/OBL BILATERAL Final Result IMPRESSION: Bilateral foot soft tissue sw (more content not included)... [facility] ED Triage Noteon 04-11-2023 ED Triage Note HNO ID: [id number] Author: JAYNE SANTO PA-C Service: ? Author Type: Physician Timber Sprinkler Type: ED Triage Notes Filed: 04/11/2023 15:05 [...] No diagnosis found. SIGNATURE: Jayne Santo PA-C [facility] ESR Westergren method (Bld) [Velocity]on 04-11-2023 ESR (Bld) [Velocity] 36 mm/h High 0-20 [facility] Comment on above: Order Comment: Speci men Type: BLOOD SPECIMEN Ordering Facility: [facility] [place] Address: [address] [place] [id number] Performed By: #### 5 7021-8, 4537-7 #### [facility] CLIA [id number] [address] [place], [place] [address] [place] Ethanol SerPl-mCncon 024 Ethanol [Mass/Vol] mg/dL Normal <0.010 [facility] Comment on above: Order Comment: Janes merlos Type: BLOOD SPECIMEN Ordering Facility: [facility] [place] Address: [address] [place] [address] Performed By: #### 2 4323-8, 5643-2, HCG, 1987-06 #### [facility] CLIA [id number] [address] [place], [place] [address] [place] HCG QUAL BLDon 04-11-2023 HCG, QUALITATIVE Negative Normal Negative [facility] Comment on above: Order Comment: Janes merlos Type: BLOOD SPECIMEN Ordering Facility: [facility] [place] Address: [address] [place] [address] Performed By: #### 2 4323-8, 5643-2, HCG, 1987-06 #### [facility] CLIA [id number] [address] [place], [place] [address] [place] PT panel Coag (PPP)on 2023 INR Coag (PPP) [Relative time] 1.0 {INR} Normal 0.9-1.3 [facility] Comment on above: Order Comment: Janes merlos Type: BLOOD SPECIMEN Ordering Facility: [facility] [place] Address: [address] [place] [address] Result Comment: Carline min K Antagonist (VKA) Therapeutic Range: INR 2 to 3 (Target INR of 2.5) Note: For patients treated with VKA drugs, such as warfarin, the [place] [employer] 2012 Guideline recommends [...] to 3.5 (target INR of 3). Brenda PAGE, et al. Chest 2012, 141:7S-47S Barry DE LA TORRE et al. [facility] 2017, 70: 252-289 Performed By: #### 3 4528-0, 36111-2 #### [facility] CLIA [id number] [address] [place] [address] [place] PT Coag (PPP) [Time] 11.3 s Normal 9.7-13.0 [facility] Comment on above: Order Comment: Speci men Type: BLOOD SPECIMEN Ordering Facility: [facility] [place] Address: [address] [place] [address] Performed By: #### 3 4528-0, 13524-3 #### [facility] CLIA [id number] [address] [place], [place] [address] [place] US LEG VEIN DVT [facility] n 04-11-2023 LEG VEIN DVT [facility] Non-Invasive Vascular Laboratory [facility] Lower Extremity Venous Duplex Bilateral/Complete [...] and small saphenous vein. Technologist: Darcy Eid T Ordering physician: JAYNE SANTO Interpreting physician: Mary Gonzalez MD Final [facility] [employer] Image : [id number] See Link below for Image Normal [facility] Urinalysis complete panel (U )on 04-11-2023 Bacteria LM.HPF (Urine sed) [#/Area] Rare Abnormal None Seen [facility] Comment on above: Order Comment: Speci men Type: URINE SPECIMENOrdering Facility: [facility] [place] Address: [address] [place] [address] Performed By: #### 2 4356-8 ####[facility] [id number] [place] [address] [place] Bilirubin Ql (U) Negative Normal Negative [facility] Comment on above: Order Comment: Speci men Type: URINE SPECIMENOrdering Facility: [facility] [place] Address: [address] [place] [address] Performed By: #### 2 4356-8 ####[facility] [id number] [address] [place] Clarity (Unsp spec) Clear Normal Clear [facility] Comment on above: Order Comment: Speci men Type: URINE SPECIMENOrdering Facility: [facility] [place] Address: [address] [place] [address] Performed By: #### 2 4356-8 ####[facility]IA [id number] [place] [address] [place] Color (U) Yellow Normal Yellow [facility] Comment on above: Order Comment: Speci men Type: URINE SPECIMENOrdering Facility: [facility] [place] Address: [address] [place] [address] Performed By: #### 2 4356-8 ####[facility] LABORATORYCLIA [id number] [address] [place] Epithelial cells LM.HPF (Urine sed) [#/Area] Few Normal [facility] Comment on above: Order Comment: Speci men Type: URINE SPECIMENOrdering Facility: [facility] [place] Address: [facility] [place] [address] Performed By: #### 2 4356-8 ####[facility] LABORATORYCLIA [id number] [address] [place] Glucose Test strip (U) [Mass/Vol] Negative Normal Negative [facility] Comment on above: Order Comment: Speci men Type: URINE SPECIMENOrdering Facility: [facility] [place] Address: [address] [place] [address] Performed By: #### 2 4356-8 ####[facility] LABORATORYCLIA [id number] [address] [place] Hemoglobin Ql (U) Negative Normal Negative [facility] Comment on above: Order Comment: Speci men Type: URINE SPECIMENOrdering Facility: [facility] [place] Address: [address] [place] [address] Performed By: #### 2 4356-8 ####[facility] LABORATORYCLIA [id number] [place] [address] [place] Hyaline casts (Urine sed) [#/Area] /[LPF] Abnormal 0 /LPF [facility] Comment on above: Order Comment: Speci men Type: URINE SPECIMENOrdering Facility: [facility] [place] Address: [address] [place] [address] Performed By: #### 2 4356-8 ####[facility] LABORATORYCLIA [id number] [address] [place] Ketones Ql (U) 2+ Abnormal Negative [facility] Comment on above: Order Comment: Speci men Type: URINE SPECIMENOrdering Facility: [facility] [place] Address: [address] [place] [address] Performed By: #### 2 4356-8 ####[facility] LABORATORYCLIA [id number] [address] [place] Leukocyte esterase Test strip Ql (U) Negative Normal Negative [facility] Comment on above: Order Comment: Speci men Type: URINE SPECIMENOrdering Facility: [facility] [place] Address: [address] [place] [address] Performed By: #### 2 4356-8 ####[facility] LABORATORYCLIA [id number] [address] [place] Nitrite Ql (U) Negative Normal Negative [facility] Comment on above: Order Comment: Speci men Type: URINE SPECIMENOrdering Facility: [facility] [place] Address: [address] [place] [address] Performed By: #### 2 4356-8 ####[facility] LABORATORYCLIA [id number] [address] [place] pH (U) 6.0 [pH] Normal 5.0-8.0 [facility] Comment on above: Order Comment: Speci men Type: URINE SPECIMENOrdering Facility: [facility] [place] Address: [address] [place] [address] Performed By: #### 2 4356-8 ####[facility] LABORATORYCLIA [id number] [place] [address] [place] Protein (U) [Mass/Vol] 1+ Abnormal Negative Me [facility] Comment on above: Order Comment: Speci men Type: URINE SPECIMENOrdering Facility: [facility] [place] Address: [address] [place] [address] Performed By: #### 2 4356-8 ####[facility] LABORATORYCLIA [id number] [place] [address] [place] RBC LM.HPF (Urine sed) [#/Area] 0-3 /HPF Normal 0-3 /HPF [facility] Comment on above: Order Comment: Speci men Type: URINE SPECIMENOrdering Facility: [facility] [place] Address: [address] [place] [address] Performed By: #### 2 4356-8 ####[facility] LABORATORYCLIA [id number] [address] [place] Specific gravity (U) [Rel density] 1.020 Normal 1.005-1.03 0 [facility] Comment on above: Order Comment: Speci men Type: URINE SPECIMENOrdering Facility: [facility] [place] Address: [address] [place] [address] Performed By: #### 2 4356-8 ####[facility] LABORATORYCLIA [id number] [address] [place] Urobilinogen Ql (U) 1+ Abnormal Negative [facility] Comment on above: Order Comment: Speci men Type: URINE SPECIMENOrdering Facility: [facility] [place] Address: [address] [place] [address] Performed By: #### 2 4356-8 ####[facility] LABORATORYCLIA [id number] [place] [address] [place] WBC LM.HPF (Urine sed) [#/Area] 0-5 /HPF Normal 0-5 /HPF [facility] Comment on above: Order Comment: Speci men Type: URINE SPECIMENOrdering Facility: [facility] [place] Address: [address] [place] [id number] Performed By: #### 2 4356-8 ####[facility] LABORATORYCLIA [id number] [place] [id number] [facility] XR FOOT 3V AP/LAT/OBL BILon 04-11-2023 XR FOOT 3V AP/LAT/OBL HELADIO * * *Final Rep ort* * * DATE OF EXAM: Apr 11 [...] tissue swelling without underlying acute osseous abnormality. Artist And Repertoire Manager: [facility] Transcribe Date/Time: Apr 11 2023 5:36P Dictated by : MARY COLE MD This examination was interpreted and the report reviewed and electronically signed by: MARY COLE MD on Apr 11 2023 5:39PM EST [id number] Normal [facility] aPTT PPPon 04-11-2023 aPTT Coag (PPP) [Time] 27.9 s Normal 23.0-32.4 [facility] Comment on above: Order Comment: Speci men Type: BLOOD SPECIMEN Ordering Facility: [facility] [place] Address: [place] [id number] Performed By: #### 3 4528-0, 97682-1 #### [facility] CLIA [id number] [address] [place] [address] CT Brain wo contraston 03-08 CT Brain wo contrast CT HEAD: CLINICAL INDICATION: [id number]: Dizziness TECHNIQUE: Transaxial CT sequence performed through [...] YENI RIDDLE MD, MD Date: 03/08/2023 07:35 [facility] CTA Chest w/wo contraston CTA Chest w/wo contrast CT ANGIOGRAPHY C HEST: CLINICAL INDICATION: R07.9: CHEST PAIN, UNSPECIFIED. Elevated [...] YENI RIDDLE MD, MD Date: 03/08/2023 07:45 [facility] Comment on above: Order Comment: For P E No Panel InformationOrdered By: Oh Vaz on 10-27-2022 P [place] 59 degrees Workspace Phone: DE Interval 152 ms Workspace Phone: QRS [place] 16 degrees Workspace Phone: QRSD Interval 88 ms Workspace Phone: [phone] QT Interval 342 ms Workspace Phone: QTC Interval 494 ms Workspace Phone: [phone] Wave [place] -27 degrees Workspace Phone: Workspace Phone: No Panel Informationon 10-27 Sinus tachycardia Borderline prolonged QT interval Electronically Signed On 10-27-2022 3:40:42 EDT by Oh Vaz Oh Brothers MD - 10/27/2022 IMPRESSION: Sinus tachycardia Borderline prolonged QT interval Electronically Signed On 10-27-2022 3:40:42 EDT by Oh Vaz [employer] Vital signsOrdered By: Oh Vaz on 10-27-2022 Heart rate 125 /min bpm Workspace Phone: CT Abdomen/Pelvis w/ Contras ton 02-18-2021 CT Abdomen/Pelvis w/ Contrast Patient Name: DHAVAL MOON Computed Tomography ACCESSION EXAM DATE/TIME PROCEDURE ORDERING PROVIDER [id number] 02/18/2021 20:[address] Abdomen/Pelvis w/ IV [id number] DEDRA ESQUIVEL Contrast (IV Onl CPT code 38897 Q9967 Reason For Exam (CT Abdomen/Pelvis w/ [...] Transcribed Date and Time: 02/18/2021 8:58 Normal [facility] Comp Metabolic Panelon 02-18 ALT [Catalytic activity/Vol] 59 U/L High 0-34 [facility] Comment on above: Result Comment: The ALT test is performed by an updated assay method. Please note that the reference intervals have been changed and are now sex specific. Performed By: #### H EMDF, CMP3, QWAL2, LIPA4 #### [place] [address] [place] [address] Calcium [Mass/Vol] 9.7 mg/dL Normal 8.4-10.4 [facility] Comment on above: Performed By: #### H EMDF, CMP3, QWAL2, LIPA4 #### [facility] [address] [place] [address] Glucose [Mass/Vol] 107 mg/dL High 70-100 [facility] Comment on above: Performed By: #### H EMDF, CMP3, QWAL2, LIPA4 #### [facility] [address] [place] [address] Urea nitrogen [Mass/Vol] 7 mg/dL Low 9-20 [facility] Comment on above: Performed By: #### H EMDF, CMP3, QWAL2, LIPA4 #### [facility] [address] [place] [address] ALP [Catalytic activity/Vol] 81 U/L Normal 38-126 [facility] Comment on above: Result Comment: Slig htly hemolysed, interpret with caution. Performed By: #### H EMDF, CMP3, QWAL2, LIPA4 #### [facility] [address] [place], [place] Anion gap [Moles/Vol] 9 mmol/L Normal 3-13 [facility] Comment on above: Performed By: #### H EMDF, CMP3, QWAL2, LIPA4 #### [facility] [address] [place], [place] AST [Catalytic activity/Vol] 67 U/L High 15-46 [facility] Comment on above: Result Comment: Slig htly hemolysed, interpret with caution. Performed By: #### H EMDF, CMP3, QWAL2, LIPA4 #### [facility] [address] [place], [place] Bilirubin [Mass/Vol] 1.0 mg/dL Normal 0.2-1.[address] [facility] Comment on above: Performed By: #### H EMDF, CMP3, QWAL2, LIPA4 #### [address] [address] [place], [place] CO2 [Moles/Vol] 24 mmol/L Normal 22-30 [facility] Comment on above: Performed By: #### H EMDF, CMP3, QWAL2, LIPA4 #### [place] [address] [address] [place], [place] Creatinine [Mass/Vol] 0.59 mg/dL Normal 0.52-1.25 [facility] Comment on above: Performed By: #### H EMDF, CMP3, QWAL2, LIPA4 #### [address] [address] [place], [place] eGFR OTHER > 90.0 Normal >60 [facility] Comment on above: Result Comment: KDIG [...] #### H EMDF, CMP3, QWAL2, LIPA4 #### [facility] [address] [place] [address] GFR/1.73 sq M.predicted among blacks MDRD (S/P/Bld) [Vol rate/Area] mL/min/{1.73_m2} Normal >60 [facility] Comment on above: Performed By: #### H EMDF, CMP3, QWAL2, LIPA4 #### [address] [address] [place], [place] Protein [Mass/Vol] 9.1 g/dL High 6.3-8.2 [facility] Comment on above: Performed By: #### H EMDF, CMP3, QWAL2, LIPA4 #### [address] [address] [place], [place] Chloride [Moles/Vol] 102 mmol/L Normal 98-[address] [facility] Comment on above: Performed By: #### H EMDF, CMP3, QWAL2, LIPA4 #### [address] [address] [place], [place] Potassium [Moles/Vol] 4.8 mmol/L Normal 3.5-5.1 [facility] Comment on above: Result Comment: Slig htly hemolysed, interpret with caution. Performed By: #### H EMDF, CMP3, QWAL2, LIPA4 #### [facility] [address] [place] [address] Sodium [Moles/Vol] 136 mmol/L Normal 135-145 [facility] Comment on above: Performed By: #### H EMDF, CMP3, QWAL2, LIPA4 #### [address] [address] [place] [address] Albumin [Mass/Vol] 4.7 g/dL Normal 3.5-5.0 [facility] Comment on above: Performed By: #### H EMDF, CMP3, QWAL2, LIPA4 #### [facility] [address] [place], [place] Complete Urinalysison 2021 Appearance (U) Clear Normal Clear [facility] Comment on above: Result Comment: . Performed By: #### C UA2 #### [address] [address] [place], [place] Bilirubin,Urine Negative Normal Negative [facility] Comment on above: Result Comment: . Performed By: #### C UA2 #### [address] [address] [place], [place] Color (U) Light-Yellow Normal Lt. Yellow [facility] Comment on above: Result Comment: . Performed By: #### C UA2 #### [address] [address] [place], [place] Glucose Ql (U) Normal Normal Normal (<70) [facility] Comment on above: Result Comment: . Performed By: #### C UA2 #### [address] [address] [place], [place] Ketone,Urine Negative Normal Negative [facility] Comment on above: Result Comment: . Performed By: #### C UA2 #### [address] [address] [place], [place] Leukocytes,Urine Negative Normal Negative [facility] Comment on above: Result Comment: . Performed By: #### C UA2 #### [address] [address] [place], [place] Nitrites,Urine Negative Normal Negative [facility] Comment on above: Result Comment: . Performed By: #### C UA2 #### [address] [address] [place], [place] Occult Blood,Urine Negative Normal Negative [facility] Comment on above: Result Comment: . Performed By: #### C UA2 #### [place] [address] [place], [place] pH,Urine 7.0 Normal 5.0-8.0 [facility] Comment on above: Result Comment: . Performed By: #### C UA2 #### [employer] [address] [place] [address] Specific Pearl,Urine 1.014 Normal 1.005 - 1.030 [facility] [employer] Comment on above: Result Comment: . Performed By: #### C UA2 #### [employer] [facility] [address] [place] [address] Total Protein,Urine Negative Normal Negative [facility] [employer] Comment on above: Result Comment: . Performed By: #### C UA2 #### [employer] [facility] [address] [place] [address] Urobilinogen,Urine Normal Normal Normal (0-1) [facility] [employer] Comment on above: Result Comment: . Performed By: #### C UA2 #### [facility] [employer] [facility] [address] [place] [address] ED Provider Noteon ED Provider Note ACH [...] or chills. HISTORY OF PRESENT ILLNESS (Location/Symptom, Timing/Onset,Context/S etting, Quality, Duration, Modifying Factors, Severity) Note limiting [...] and Family: Not on file ? Attends Sabianism Services: Not on file ? Active Member [...] sounds: No (more content not included)... Normal [facility] ED Provider Note Emergency Department Encounter [facility] Patient: Dhaval Moon : 2000 Date of Evaluation: 02/18/2021 ED Provider: ROMI Diamond As the [id number], I performed a medical screening history and [...] no rhonchi no rales We will initiate diagnostics/treatments as indicated and place in main ED as soon as available. ROMI Diamond [employer] ROMI Diamond 02/18/21 1712 Normal [facility] Hemogram w/ Autodiffon 02-18 Abs Baso Cnt 0.0 10*3/uL Normal 0.0-0.2 [facility] Comment on above: Performed By: #### H EMDF, CMP3, QWAL2, LIPA4 #### [address] Abs Neutrophile Cnt 8.0 10*3/uL High 1.8-7.[address] [facility] Comment on above: Performed By: #### H EMDF, CMP3, QWAL2, LIPA4 #### [address] [address] [place] [address] Basophils/100 WBC (Bld) 0.3 % Normal 0.0-2.0 [facility] Comment on above: Performed By: #### H EMDF, CMP3, QWAL2, LIPA4 #### [address] [address] Eosinophils (Bld) [#/Vol] 0.2 10*3/uL Normal 0.0-0.5 [facility] Comment on above: Performed By: #### H EMDF, CMP3, QWAL2, LIPA4 #### [address] Eosinophils/100 WBC (Bld) 1.6 % Normal 1.0-6.0 [facility] Comment on above: Performed By: #### H EMDF, CMP3, QWAL2, LIPA4 #### [address] [address] [place], [place] Erythrocyte distribution width (RBC) [Ratio] 14.2 % Normal 11.5-14.5 [facility] Comment on above: Performed By: #### H EMDF, CMP3, QWAL2, LIPA4 #### [address] [place], [place] Granulocytes/100 WBC (Bld) 72.8 % Normal 40.0-80.0 [facility] Comment on above: Performed By: #### H EMDF, CMP3, QWAL2, LIPA4 #### [address] [address] [place], [place] Hematocrit (Bld) [Volume fraction] 45.9 % Normal 35.0-47.0 [facility] Comment on above: Performed By: #### H EMDF, CMP3, QWAL2, LIPA4 #### [address] [address] [place], [place] Hemoglobin (Bld) [Mass/Vol] 14.9 g/dL Normal 11.7-16. 0 [facility] Comment on above: Performed By: #### H EMDF, CMP3, QWAL2, LIPA4 #### [address] [address] [place], [place] Lymphocytes (Bld) [#/Vol] 1.7 10*3/uL Normal 1.0-4.3 [facility] Comment on above: Performed By: #### H EMDF, CMP3, QWAL2, LIPA4 #### [address] Lymphocytes/100 WBC (Bld) 15.7 % Low 20.0-40.0 [facility] Comment on above: Performed By: #### H EMDF, CMP3, QWAL2, LIPA4 #### [address] [address] [place], [place] MCH (RBC) [Entitic mass] 30.0 pg Normal 26.0-34.0 [facility] Comment on above: Performed By: #### H EMDF, CMP3, QWAL2, LIPA4 #### [address] MCHC 32.4 % Normal 32.0-36.0 [facility] Comment on above: Performed By: #### H EMDF, CMP3, QWAL2, LIPA4 #### [address] MCV (RBC) [Entitic vol] 92.6 fL Normal 79.0-98.0 [facility] Comment on above: Performed By: #### H EMDF, CMP3, QWAL2, LIPA4 #### [address] Monocytes (Bld) [#/Vol] 1.1 10*3/uL High 0.0-0.8 [facility] Comment on above: Performed By: #### H EMDF, CMP3, QWAL2, LIPA4 #### [address] Monocytes/100 WBC (Bld) 9.6 % Normal 2.0-10.0 [facility] Comment on above: Performed By: #### H EMDF, CMP3, QWAL2, LIPA4 #### [address] Platelet mean volume (Bld) [Entitic vol] 9.4 fL Normal 7.4-10.4 [facility] Comment on above: Performed By: #### H EMDF, CMP3, QWAL2, LIPA4 #### [address] Platelets (Bld) [#/Vol] 324 10*3/uL Normal 140-440 [facility] Comment on above: Performed By: #### H EMDF, CMP3, QWAL2, LIPA4 #### [address] RBC (Bld) [#/Vol] 4.96 10*6/uL Normal 3.80-5.20 [facility] Comment on above: Performed By: #### H EMDF, CMP3, QWAL2, LIPA4 #### [facility] [address] [place], [place] WBC (Bld) [#/Vol] 11.0 10*3/uL High 3.6-10.7 [facility] Comment on above: Performed By: #### H EMDF, CMP3, QWAL2, LIPA4 #### [facility] [address] [place], [place] Lipaseon 02-18-2021 Lipase [Catalytic activity/Vol] 40 U/L Normal 23-300 [facility] Comment on above: Performed By: #### H EMDF, CMP3, QWAL2, LIPA4 #### [facility] [address] [place], [place] US Abdomen Limitedon 022 US Abdomen Limited Patient Name: DHAVAL BARKLEY Ultrasound ACCESSION EXAM DATE/TIME PROCEDURE ORDERING PROVIDER [id number] 02/18/2021 16:08 EST US Abdomen Limited [id number] DEDRA ESQUIVEL CPT code 68135 Reason For Exam (US Abdomen Limited) RUQ [...] Dictated: 02/18/2021 4:21 pm Dictating Physician: MD AMANDA, KVNG Juarez Signed Date and Time: 02/18/2021 4:25 pm Signed by: MD PATEL JONATHAN R Transcribed Date and Time: 02/18/2021 4:21 Normal [facility] hCG Qual [place] 02-18-2021 hCG Qual Preg Negative Normal [facility] Comment on above: Result Comment: Refe rence Range: NEGATIVE Effective 04/26/2019, the reference interval for the qualitative test has been updated. This test detects hCG at concentrations of 10 mIU/L or greater in serum. Performed By: #### H EMDF, CMP3, QWAL2, LIPA4 #### [address] [address] CNOVon 01-17-2019 CNOV Office Visit ([facility] ) DHAVAL MOON ([id number]) 89 F Date Time Provider Department 01/17/19 5:00 PM ROSANNE PENA) [facility] During your visit today, we recorded the [...] (lower respiratory tract infection) [J22] Other Visit Diagnoses:Hemoptysis [R04.2] Moderate persistent asthma with (acute) exacerbation [J45.41] Apnea spell [R06.81] Order(s):XR CHEST 2V FRONTAL/LAT [[id number]] Order #: [id number]. #:[id number] dextromethorphan-guaiF ENesin (MUCINEX DM) 30-600 mg per tabletTake 1 [...] 0 CONSULT TO SLEEP MEDICINE - ADULT [[id number]] Order #: [id number]: [id number] Prescriptions as of 01/17/2019 Sig: PROAIR RESPICLICK 90 MCG/ACTU* Inhale 2 Puffs as instructed * DEXTROAMPHETAMINE-AMPH ETAMINE* Take 1 capsule by mouth once * ESCITALOPRAM 10 MG TABLET Take 1 tablet by mouth once d* FLUTICASONE PROPIONATE 110 MC* Inhale 2 Puffs as instructed * DEXTROMETHORPHAN-GUAIF ENESIN * Take 1 tablet by mouth twice [...] ordered this encounter Disp Refills Start End DEXTROMETHORPHAN-GUAIF ENESIN 30 MG-6* 30 t* 0 01/17/2019 Route: [...] Encounter Status:Closed by ROSANNE PENA on 01/17/19 [facility] PROGRESSon 01-17-2019 PROGRESS HNO ID: [id number] Author: Vadim Oliva (Tech) Service: ? Author Type: Senior Tax Specialist Type: Progress Notes Filed: 01/17/2019 6:05 PM [...] Vadim Oliva January 17, 2019 5:50 PM [facility] PROGRESS HNO ID: [id number] Author: Rosanne Pena (Pa) Service: ? Author Type: Physician Timber Sprinkler Type: Progress Notes Filed: 01/17/2019 7:14 PM [...] agrees with the plan. Rosanne Pena PA-C [facility] XR CHEST 2V FRONTAL/LATon XR CHEST 2V [...] OTHER: N/A IMPRESSION: No acute cardiopulmonary process. Artist And Repertoire Manager: [employer] Transcribe Date/Time: Jan 17 2019 6:17P Dictated by : REGINE BRANTLEY MD This examination was interpreted and the report reviewed and electronically signed by: REGINE BRANTLEY MD on Jan 17 2019 6:19PM EST [id number] Normal [facility] Vital Signs Date Time Vital Sign Value Performing Clinician Facility 07-14-2024 23:36-0400 Body temperature 97.8 [degF] Dr. Anthony Booth MD Work Phone: [facility] 07-14-2024 23:36-0400 Diastolic blood pressure 76 mm[Hg] Dr. Anthony Booth MD Work Phone: [facility] 07-14-2024 23:36-0400 Heart rate 96 /min Dr. Anthony Booth MD Work Phone: [facility] 07-14-2024 23:36-0400 Respiratory rate 16 /min Dr. Anthony Booth MD Work Phone: [facility] 07-14-2024 23:36-0400 SaO2% (BldA) [Mass fraction] 99 % Dr. Anthony Booth MD Work Phone: [facility] 07-14-2024 23:36-0400 Systolic blood pressure 128 mm[Hg] Dr. Anthony Booth MD Work Phone: [facility] 07-14-2024 23:00-0400 Body mass index (BMI) [Ratio] 43.9 kg/m2 Dr. Anthony Booth MD Work Phone: [facility] 07-14-2024 23:00-0400 Body weight 105.[address] Anthony Booth MD Work Phone: [facility] 07-14-2024 04:02-0400 Diastolic blood pressure 80 mm[Hg] Dr. Anthony Booth MD Work Phone: [facility] 07-14-2024 04:02-0400 Heart rate 88 /min Dr. Anthony Booth MD Work Phone: [facility] 07-14-2024 04:02-0400 Respiratory rate 22 /min Dr. Anthony Booth MD Work Phone: [facility] 07-14-2024 04:02-0400 SaO2% (BldA) [Mass fraction] 97 % Dr. Anthony Booth MD Work Phone: [facility] 07-14-2024 04:02-0400 Systolic blood pressure 137 mm[Hg] Dr. Anthony Booth MD Work Phone: [facility] 07-14-2024 02:02-0400 Body height 154.[address] Anthony Booth MD Work Phone: [facility] 07-14-2024 02:02-0400 Body mass index (BMI) [Ratio] 43.8 kg/m2 Dr. Anthony Booth MD Work Phone: [facility] 07-14-2024 02:02-0400 Body temperature 98.9 [degF] Dr. Anthony Booth MD Work Phone: [facility] 07-14-2024 02:02-0400 Body weight 105.[address] Anthony Booth MD Work Phone: [facility] 07-09-2024 14:20-0400 Body mass index (BMI) [Ratio] 43.31 kg/m2 Luis Kathleen APRN - PROJECT ANALYST Work Phone: [facility] 07-09-2024 14:20-0400 Body temperature 98.29 [degF] Luis Bridenthal MOTOR BIKE MECHANIC - PROJECT ANALYST Work Phone: [facility] 07-09-2024 14:20-0400 Body weight 107.41 kg Luis Bridenthal [employer]OR BIKE MECHANIC - PROJECT ANALYST Work Phone: [facility] 07-09-2024 14:20-0400 Diastolic blood pressure 81 mm[Hg] Luis Bridenthal MOTOR BIKE MECHANIC - PROJECT ANALYST Work Phone: [facility] 07-09-2024 14:20-0400 Heart rate 73 /min Luis Bridenthal MOTOR BIKE MECHANIC - PROJECT ANALYST Work Phone: [facility] 07-09-2024 14:20-0400 Respiratory rate 20 /min Luis Bridenthal MOTOR BIKE MECHANIC - PROJECT ANALYST Work Phone: [facility] 07-09-2024 14:20-0400 SaO2% (BldA) [Mass fraction] 95 % Luis Bridenthal [employer]OR BIKE MECHANIC - PROJECT ANALYST Work Phone: [facility] 07-09-2024 14:20-0400 Systolic blood pressure 117 mm[Hg] Luis Bridenthal MOTOR BIKE MECHANIC - PROJECT ANALYST Work Phone: [facility] 06-13-2024 11:00-0400 Diastolic blood pressure 112 mm[Hg] Dr. Anthony Booth MD Work Phone: [facility] 06-13-2024 11:00-0400 Heart rate 85 /min Dr. Anthony Booth MD Work Phone: [facility] 06-13-2024 11:00-0400 Respiratory rate 16 /min Dr. Anthony Booth MD Work Phone: [facility] 06-13-2024 11:00-0400 SaO2% (BldA) [Mass fraction] 100 % Dr. Anthony Booth MD Work Phone: [facility] 06-13-2024 11:00-0400 Systolic blood pressure 134 mm[Hg] Dr. Anthony Booth MD Work Phone: 6(547)901-186463 [place] [address] 06-13-2024 09:13-0400 Body mass index (BMI) [Ratio] 40.7 kg/m2 Dr. Anthony Booth MD Work Phone: 2(577)630-281163 [place] [address] 06-13-2024 09:13-0400 Body temperature 98.6 [degF] Dr. Anthony Booth MD Work Phone: 9(389)358-447163 [place] [address] 06-13-2024 09:13-0400 Body weight 97.[address] Anthony Booth MD Work Phone: 4(893)295-561863 [place] [address] 06-13-2024 04:58-0400 Body mass index (BMI) [Ratio] 42 kg/m2 Dr. Anthony Booth MD Work Phone: 2(790)817-644463 [place] [address] 06-13-2024 04:58-0400 Body temperature 98.3 [degF] Dr. Anthony Booth MD Work Phone: 4(930)054-891863 [place] [address] 06-13-2024 04:58-0400 Body weight 100.[address] Anthony Booth MD Work Phone: 7(167)594-256563 [place] [address] 06-13-2024 04:58-0400 Diastolic blood pressure 89 mm[Hg] Dr. Anthony Booth MD Work Phone: 1(352)130-520763 [place] [address] 06-13-2024 04:58-0400 Heart rate 103 /min Dr. Anthony Booth MD Work Phone: 3(886)989-798263 [place] [address] 06-13-2024 04:58-0400 Respiratory rate 18 /min Dr. Anthony Booth MD Work Phone: 9(558)420-622863 [place] [address] 06-13-2024 04:58-0400 SaO2% (BldA) [Mass fraction] 98 % Dr. Anthony Booth MD Work Phone: 8(155)659-990163 [place] [address] 06-13-2024 04:58-0400 Systolic blood pressure 146 mm[Hg] Dr. Anthony Booth MD Work Phone: 7(762)311-551863 [place] [address] 06-02-2024 12:58-0400 Body height 152.[address] Anthony Booth MD Work Phone: [facility] 06-02-2024 12:58-0400 Body mass index (BMI) [Ratio] 42 kg/m2 Dr. Anthony Booth MD Work Phone: [facility] 06-02-2024 12:58-0400 Body temperature 98.4 [degF] Dr. Anthony Booth MD Work Phone: 1(831)785-332963 [place] [address] 06-02-2024 12:58-0400 Body weight 97.[address] Anthony Booth MD Work Phone: 6(982)437-398163 [place] [address] 06-02-2024 12:58-0400 Diastolic blood pressure 108 mm[Hg] Dr. Anthony Booth MD Work Phone: 2(817)520-236563 [place] [address] 06-02-2024 12:58-0400 Heart rate 125 /min Dr. Anthony Booth MD Work Phone: 5(672)386-039363 [place] [address] 06-02-2024 12:58-0400 Respiratory rate 16 /min Dr. Anthony Booth MD Work Phone: 3(324)880-883463 [place] [address] 06-02-2024 12:58-0400 SaO2% (BldA) [Mass fraction] 99 % Dr. Anthony Booth MD Work Phone: [facility] 06-02-2024 12:58-0400 Systolic blood pressure 148 mm[Hg] Dr. Anthony Booth MD Work Phone: [facility] 05-30-2024 21:40-0400 Body height 152.[address] Anthony Booth MD Work Phone: [facility] 05-30-2024 21:40-0400 Body mass index (BMI) [Ratio] 43.6 kg/m2 Dr. Anthony Booth MD Work Phone: [facility] 05-30-2024 21:40-0400 Body temperature 97.7 [degF] Dr. Anthony Booth MD Work Phone: [facility] 05-30-2024 21:40-0400 Body weight 101.[address] Anthony Booth MD Work Phone: [facility] 05-30-2024 21:40-0400 Diastolic blood pressure 103 mm[Hg] Dr. Anthony Booth MD Work Phone: 3(175)526-310963 [place] [address] 05-30-2024 21:40-0400 Heart rate 135 /min Dr. Anthony Booth MD Work Phone: 4(387)400-527963 [place] [address] 05-30-2024 21:40-0400 Respiratory rate 22 /min Dr. Anthony Booth MD Work Phone: 3(363)351-348363 [place] [address] 05-30-2024 21:40-0400 SaO2% (BldA) [Mass fraction] 100 % Dr. Anthony Booth MD Work Phone: 6(029)983-985963 [place] [address] 05-30-2024 21:40-0400 Systolic blood pressure 116 mm[Hg] Dr. Anthony Booth MD Work Phone: 2(734)500-514863 [place] [address] 05-05-2024 01:06-0400 Body height 152.[address] Anthony Booth MD Work Phone: 9(242)437-786863 [place] [address] 05-05-2024 01:06-0400 Body mass index (BMI) [Ratio] 43 kg/m2 Dr. Anthony Booth MD Work Phone: [facility] 05-05-2024 01:06-0400 Body temperature 98.3 [degF] Dr. Anthony Booth MD Work Phone: [facility] 05-05-2024 01:06-0400 Body weight [address] Anthony Booth MD Work Phone: 0(670)889-908363 [place] [address] 05-05-2024 01:06-0400 Heart rate 126 /min Dr. Anthony Booth MD Work Phone: 4(848)969-610963 [place] [address] 05-05-2024 01:06-0400 Respiratory rate 20 /min Dr. Anthony Booth MD Work Phone: [facility] 05-05-2024 01:06-0400 SaO2% (BldA) [Mass fraction] 99 % Dr. Anthony Booth MD Work Phone: [facility] 04-28-2024 05:47-0400 Body temperature 98 [degF] Dr. Anthony Booth MD Work Phone: [facility] 04-28-2024 05:47-0400 Diastolic blood pressure 92 mm[Hg] Dr. Anthony Booth MD Work Phone: [facility] 04-28-2024 05:47-0400 Heart rate 98 /min Dr. Anthony Booth MD Work Phone: [facility] 04-28-2024 05:47-0400 Respiratory rate 18 /min Dr. Anthony Booth MD Work Phone: [facility] 04-28-2024 05:47-0400 SaO2% (BldA) [Mass fraction] 99 % Dr. Anthony Booth MD Work Phone: [facility] 04-28-2024 05:47-0400 Systolic blood pressure 150 mm[Hg] Dr. Anthony Booth MD Work Phone: [facility] 04-28-2024 02:49-0400 Body height 152.[address] Anthony Booth MD Work Phone: [facility] 04-28-2024 02:49-0400 Body mass index (BMI) [Ratio] 46.9 kg/m2 Dr. Anthony Booth MD Work Phone: [facility] 04-28-2024 02:49-0400 Body weight [address] Anthony Booth MD Work Phone: [facility] 04-25-2024 14:12-0400 Body height 152.[address] Anthony Booth MD Work Phone: [facility] 04-25-2024 14:12-0400 Body mass index (BMI) [Ratio] 47.8 kg/m2 Dr. Anthony Booth MD Work Phone: 9(186)017-691463 [place] [address] 04-25-2024 14:12-0400 Body temperature 97.6 [degF] Dr. Anthony Booth MD Work Phone: 5(424)287-135223 [place] [address] 04-25-2024 14:12-0400 Body weight 111.[address] Anthony Booth MD Work Phone: 2(807)168-334423 [place] [address] 04-25-2024 14:12-0400 Diastolic blood pressure 94 mm[Hg] Dr. Anthony Booth MD Work Phone: 7(819)459-698223 [place] [address] 04-25-2024 14:12-0400 Heart rate 134 /min Dr. Anthony Booth MD Work Phone: 6(832)188-655123 [place] [address] 04-25-2024 14:12-0400 Respiratory rate 22 /min Dr. Anthony Booth MD Work Phone: 1(970)974-177723 [place] [address] 04-25-2024 14:12-0400 SaO2% (BldA) [Mass fraction] 100 % Dr. Anthony Booth MD Work Phone: 9(707)005-698363 [place] [address] 04-25-2024 14:12-0400 Systolic blood pressure 169 mm[Hg] Dr. Anthony Booth MD Work Phone: 6(286)317-841323 [place] [address] 03-23-2024 22:59-0500 Body temperature 97.8 [degF] Dr. Anthony Booth MD Work Phone: 7(121)039-001963 [place] [address] 03-23-2024 22:59-0500 Diastolic blood pressure 96 mm[Hg] Dr. Anthony Booth MD Work Phone: 0(301)605-111963 [place] [address] 03-23-2024 22:59-0500 Heart rate 83 /min Dr. Anthony Booth MD Work Phone: [facility] 03-23-2024 22:59-0500 Respiratory rate 22 /min Dr. Anthony Booth MD Work Phone: [facility] 03-23-2024 22:59-0500 SaO2% (BldA) [Mass fraction] 99 % Dr. Anthony Booth MD Work Phone: [facility] 03-23-2024 22:59-0500 Systolic blood pressure 143 mm[Hg] Dr. Anthony Booth MD Work Phone: 9(633)220-462263 [place] [address] 01-10-2024 14:31-0500 Body temperature 98.7 [degF] Dr. Anthony Booth MD Work Phone: [facility] 01-10-2024 14:31-0500 Diastolic blood pressure 72 mm[Hg] Dr. Anthony Booth MD Work Phone: [facility] 01-10-2024 14:31-0500 Heart rate 107 /min Dr. Anthony Booth MD Work Phone: 2(382)420-004763 [place] [address] 01-10-2024 14:31-0500 Respiratory rate 18 /min Dr. Anthony Booth MD Work Phone: [facility] 01-10-2024 14:31-0500 SaO2% (BldA) [Mass fraction] 98 % Dr. Anthony Booth MD Work Phone: [facility] 01-10-2024 14:31-0500 Systolic blood pressure 119 mm[Hg] Dr. Anthony Booth MD Work Phone: [facility] 01-09-2024 10:47-0500 Body weight 88.[address] Anthony Booth MD Work Phone: [facility] 01-08-2024 20:20-0500 Body mass index (BMI) [Ratio] 38.2 kg/m2 Dr. Anthony Booth MD Work Phone: [facility] 09-02-2023 08:34-0400 Diastolic blood pressure 70 mm[Hg] Billie Spears DO Work Phone: [facility] 09-02-2023 08:34-0400 Heart rate 95 /min Billie Tory DO Work Phone: [employer] 09-02-2023 08:34-0400 Respiratory rate 18 /min Billie Tory DO Work Phone: [employer] 09-02-2023 08:34-0400 SaO2% (BldA) [Mass fraction] 97 % Billie Tory DO [facility] 09-02-2023 08:34-0400 Systolic blood pressure 107 mm[Hg] Billie Spears DO Work Phone: [facility] [employer] 09-02-2023 02:07-0400 Body temperature 98.49 [degF] Billie Aguileraoch DO Work Phone: [facility] [employer] 08-18-2023 09:55-0400 Diastolic Blood Pressure Non-Invasive 86 mm[Hg] DR REGINE CONRAD MD [facility] 08-18-2023 09:55-0400 Heart rate 98 /min DR REGINE CONRAD MD [facility] 08-18-2023 09:55-0400 Respiratory rate 18 /min DR REGINE CONRAD MD [facility] 08-18-2023 09:55-0400 Systolic Blood Pressure Non-Invasive 137 mm[Hg] DR REGINE CONRAD MD [facility] 08-18-2023 06:05-0400 Diastolic Blood Pressure Non-Invasive 77 mm[Hg] DR REGINE CONRAD MD [facility] 08-18-2023 06:05-0400 Heart rate 98 /min DR REGINE CONRAD MD [facility] 08-18-2023 06:05-0400 Respiratory rate 18 /min DR REGINE CONRAD MD [facility] 08-18-2023 06:05-0400 Systolic Blood Pressure Non-Invasive 129 mm[Hg] DR REGINE CONRAD MD [facility] 08-17-2023 23:01-0400 Heart rate 98 /min DR REGINE CONRAD MD [facility] 08-17-2023 23:01-0400 Respiratory rate 18 /min DR REGINE CONRAD MD [facility] 08-17-2023 20:02-0400 Body height [address] REGINE CONRAD MD [facility] 08-17-2023 20:02-0400 Body temperature 98.78 [degF] DR REGINE CONRAD MD [facility] 08-17-2023 20:02-0400 Body weight 111.[address] REGINE CONRAD MD [facility] 08-17-2023 20:02-0400 Diastolic Blood Pressure Non-Invasive 87 mm[Hg] DR REGINE CONRAD MD [facility] 08-17-2023 20:02-0400 Systolic Blood Pressure Non-Invasive 142 mm[Hg] DR REGINE CONRAD MD [facility] 06-28-2023 10:35-0400 Diastolic blood pressure 90 mm[Hg] Anthony Booth MD Work Phone: [facility] [employer] 06-28-2023 10:35-0400 Heart rate 105 /min Anthony Booth MD Work Phone: [facility] [employer] 06-28-2023 10:35-0400 Systolic blood pressure 136 mm[Hg] Anthony Booth MD Work Phone: [facility] [employer] 06-28-2023 09:49-0400 Body height 157.5 cm Anthony Booth MD Work Phone: [facility] [employer] 06-28-2023 09:49-0400 Body mass index (BMI) [Ratio] 47.55 kg/m2 Anthony Booth MD Work Phone: [facility] [employer] 06-28-2023 09:49-0400 Body weight 117.94 kg Anthony Booth MD Work Phone: [facility] 06-28-2023 09:49-0400 SaO2% (BldA) [Mass fraction] 97 % Anthony Booth MD Work Phone: [facility] [employer] 04-25-2023 15:10-0400 Diastolic blood pressure 98 mm[Hg] Anthony Booth MD Work Phone: [facility] [employer] 04-25-2023 15:10-0400 Heart rate 125 /min Anthony Booth MD Work Phone: [facility] [employer] 04-25-2023 15:10-0400 Systolic blood pressure 153 mm[Hg] Anthony Booth MD Work Phone: [facility] [employer] 04-25-2023 14:37-0400 Body height 157.5 cm Anthony Booth MD Work Phone: [facility] [employer] 04-25-2023 14:37-0400 Body mass index (BMI) [Ratio] 50.22 kg/m2 Anthony Booth MD Work Phone: [facility] [employer] 04-25-2023 14:37-0400 Body weight 124.56 kg Anthony Booth MD Work Phone: [facility] [employer] 04-25-2023 14:37-0400 SaO2% (BldA) [Mass fraction] 91 % Anthony Booth MD Work Phone: [facility] [employer] 04-07-2023 16:51-0500 Body height 157.48 cm [facility] Work Phone: [facility] 04-07-2023 16:51-0500 Body temperature 99.4 [degF] [facility] Work Phone: [facility] 04-07-2023 16:51-0500 Body weight 135.63 kg [facility] Work Phone: [facility] 04-07-2023 16:51-0500 Diastolic blood pressure 52 mm[Hg] [facility] Work Phone: [facility] 04-07-2023 16:51-0500 Heart rate 119 /min [facility] Work Phone: [facility] 04-07-2023 16:51-0500 Respiratory rate 20 /min [facility] Work Phone: [facility] 04-07-2023 16:51-0500 SaO2% (BldA) [Mass fraction] 98 % [facility] Work Phone: [facility] 04-07-2023 16:51-0500 Systolic blood pressure 102 mm[Hg] [facility] Work Phone: [facility] 04-02-2023 04:34-0500 Diastolic blood pressure 97 mm[Hg] [facility] Work Phone: [facility] 04-02-2023 04:34-0500 Heart rate 120 /min [facility] Work Phone: [facility] 04-02-2023 04:34-0500 Respiratory rate 20 /min [facility] Work Phone: [facility] 04-02-2023 04:34-0500 SaO2% (BldA) [Mass fraction] 97 % [facility] Work Phone: [facility] 04-02-2023 04:34-0500 Systolic blood pressure 140 mm[Hg] [facility] Work Phone: [facility] 04-02-2023 02:15-0500 [facility] Work Phone: [facility] 04-02-2023 02:15-0500 Body temperature 97.9 [degF] [facility] Work Phone: [facility] 04-02-2023 02:15-0500 Body weight 136.08 kg [facility] Work Phone: [facility] 03-21-2023 10:49-0500 Diastolic blood pressure 92 mm[Hg] Anthony Booth MD Work Phone: [facility] 03-21-2023 10:49-0500 Heart rate 112 /min Anthony Booth MD Work Phone: [facility] [employer] 03-21-2023 10:49-0500 Systolic blood pressure 132 mm[Hg] Anthony Booth MD Work Phone: [facility] [employer] 03-21-2023 10:21-0500 Body height 157.5 cm Anthony Booth MD Work Phone: [facility] [employer] 03-21-2023 10:21-0500 Body mass index (BMI) [Ratio] 55.16 kg/m2 Anthony Booth MD Work Phone: [facility] 03-21-2023 10:21-0500 Body weight 136.81 kg Anthony Booth MD Work Phone: [facility] 03-21-2023 10:21-0500 SaO2% (BldA) [Mass fraction] 96 % Anthony Booth MD Work Phone: [facility] [employer] Encounters Encounter Date Encounter Type Care Provider Facility Start: 07-14-2024 End: 07-14-2024 Emergency department patient visit Dr. Anthony Booth MD Work Phone: -Emergency Department Work Phone: Start: 07-14-2024 End: 07-14-2024 Emergency department patient visit Dr. 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 Work Phone: [facility] Comment on above: Moderate persistent asthma without complication (Primary Dx); Anxiety; Seasonal allergies; Nausea and vomiting, unspecified vomiting type; Primary hypertension; Missed period; Moderate episode of recurrent major depressive disorder (HCC) Start: 07-09-2024 End: 07-09-2024 ambulatory LUIS KATHLEEN [facility] Start: 07-03-2024 End: 07-09-2024 [facility] Start: 07-03-2024 End: 07-09-2024 Patient encounter [facility] Start: 06-13-2024 End: 06-13-2024 Emergency department patient visit Dr. Tree Crowe MD -Emergency Department Work Phone: Start: 06-13-2024 End: 06-13-2024 Emergency department patient visit Daniel Herrera DO -Emergency Department Work Phone: Start: 06-02-2024 End: 06-02-2024 Emergency department patient visit Dr. Anthony Booth MD Work Phone: -Emergency Department Work Phone: Start: 05-30-2024 End: 05-30-2024 Emergency department patient visit Dr. Anthony Booth MD Work Phone: -Emergency Department Work Phone: Start: 05-05-2024 End: 05-05-2024 Emergency department patient visit Dr. Anthony Booth MD Work Phone: -Emergency Department Work Phone: Start: 04-28-2024 End: 04-28-2024 Emergency department patient visit Dr. Anthony Booth MD Work Phone: -Emergency Department Work Phone: Start: 04-25-2024 End: 04-25-2024 Emergency department patient visit Dr. Anthony Booth MD Work Phone: -Emergency Department Work Phone: Start: 03-23-2024 End: 03-23-2024 Emergency department patient visit Dr. Rickie Rayo MD -Emergency Department Work Phone: Start: 02-26-2024 End: 03-20-2024 Refill Anthony Booth MD Work Phone: [facility] Comment on above: Alcohol-induced poly neuropathy (HCC); Multiple open wounds of foot Start: 01-10-2024 Non-patient / Non-visit Dr. Jenelle Pugh MD -[facility] Work Phone: Start: 01-09-2024 Non-patient / Non-visit Dr. Jenelle Pugh MD -[facility] Work Phone: Start: 01-08-2024 ambulatory Kirill Perez Fac ility:[facility] Start: 01-08-2024 End: 01-10-2024 Evaluation and management of inpatient Dr. Easton Pugh MD -[facility] 3 Work Phone: Start: 12-20-2023 End: 12-21-2023 Emergency department patient visit Deep Villatoro Facility:[facility] Start: 12-06-2023 End: 12-06-2023 Emergency department patient visit Anthony oBoth Facility:[facility] Start: 12-06-2023 End: 12-06-2023 Emergency department patient visit Ed Physician Provider Facility:[facility] Start: 11-27-2023 End: 11-28-2023 Emergency department patient visit Anthony Booth Facility:[facility] Start: 11-05-2023 End: 11-07-2023 ambulatory Anthony Booth Facility:[facility] Start: 11-05-2023 End: 11-05-2023 Emergency department patient visit Anthony Booth Facility:[facility] Start: 11-03-2023 End: 11-28-2023 Telephone encounter Anthony Booth MD Work Phone: [facility] Comment on above: Referral (Wound Care and Physical Therapy) Start: 09-16-2023 End: 09-16-2023 Emergency department patient visit Tiffany Montana NP Facility:[facility] Start: 09-02-2023 End: 09-02-2023 Emergency department patient visit Billie Spears DO Work Phone: [facility] Comment on above: Paranoia (psychosis) (HCC) (Primary Dx); Hypokalemia; Methamphetamine-induced psychotic disorder (HCC) Start: 09-02-2023 End: 09-02-2023 Emergency department patient visit SKIP MCGEE MD [facility] Start: 08-17-2023 End: 08-18-2023 Emergency department patient visit DR REGINE CONRAD MD [facility] Start: 07-22-2023 End: 07-22-2023 Emergency department patient visit Ed Physician Provider Facility:[facility] Start: 06-28-2023 End: 06-28-2023 Office outpatient visit 25 minutes Anthony Booth MD Work Phone: [facility] Comment on above: Moderate persistent asthma with exacerbation (Primary Dx); Anxiety; Moderate episode of recurrent major depressive disorder (HCC); Elevated transaminase level; Screening for diabetes mellitus; Screening for lipid disorders; Controlled drug dependence (HCC) Start: 06-21-2023 Telephone encounter Anthony Devine MD Work Phone: [facility] Comment on above: Scheduling Start: 06-20-2023 Refill Anthony Booth MD Work Phone: [facility] Start: 06-17-2023 End: 06-18-2023 Emergency department patient visit ANTHONY BOOTH Facility:[id number] Start: 06-17-2023 Admission to establishment [facility] Work Phone: [facility] Start: 06-17-2023 ambulatory Nita Verma [facility] Work Phone: [facility] Comment on above: Hallucinations Start: 06-17-2023 Patient encounter procedure Noemí Valera RN [facility] Clinical Communication Comment on above: Alcohol-induced poly neuropathy (HCC); Multiple open wounds of foot Start: 06-08-2023 End: 06-10-2023 Evaluation and management of inpatient ANTHONY BOOTH Facility:[id number] Start: 04-25-2023 End: 04-25-2023 Office outpatient visit 25 minutes Anthony Booth MD Work Phone: [facility] Comment on above: Alcohol-induced poly neuropathy (HCC) (Primary Dx); Moderate persistent asthma with exacerbation; Multiple open wounds of foot Alcohol-induced poly neuropathy (HCC) (Primary Dx); Moderate persistent asthma with exacerbation; Multiple open wounds of foot; Moderate episode of recurrent major depressive disorder (HCC) Start: 04-25-2023 Refill Anthony Booth MD Work Phone: [facility] Start: 04-21-2023 End: 04-21-2023 Emergency department patient visit ANTHONY BOOTH Facility:[id number] Start: 04-11-2023 End: 04-11-2023 Emergency department patient visit ANTHONY BOOTH Facility:[id number] Start: 04-08-2023 End: 04-08-2023 Emergency department patient visit ADRIENNE DELEON MD~[id number] [facility] Start: 04-07-2023 End: 04-07-2023 Emergency department patient visit ED Doctor Facility:[facility] Start: 04-07-2023 End: 04-07-2023 Emergency department patient visit [facility] Start: 04-02-2023 End: 04-02-2023 Emergency department patient visit Zachary Armenta Facility:[facility] Start: 04-02-2023 End: 04-02-2023 Emergency department patient visit [facility] Work Phone: [facility] Start: 03-21-2023 End: 03-21-2023 Office outpatient visit 25 minutes Anthony Booth MD Work Phone: [facility] Comment on above: ETOH abuse (Primary Dx); Anxiety; Moderate persistent asthma with exacerbation; Alcohol-induced polyneuropathy (HCC); Weakness of both lower extremities; Acquired hypothyroidism; Polycythemia; Morbid obesity with body mass index (BMI) of 50.0 to 59.9 in adult (HCC) Start: 03-18-2023 End: 03-18-2023 Emergency department patient visit NO PCP AA NO PCP [facility] Start: 03-08-2023 End: 03-13-2023 Evaluation and management of inpatient [facility] Start: 11-02-2022 End: 11-03-2022 ambulatory NO PCP AA NO PCP [facility] Start: 10-26-2022 End: 10-27-2022 Emergency department patient visit [facility] Start: 10-26-2022 End: 10-26-2022 Subsequent hospital visit by physician Ach [facility] Comment on above: Arrived Start: 10-04-2022 End: 10-04-2022 Emergency department patient visit [facility] Procedures Date Procedure Procedure Detail Performing Clinician Start: 07-14-2024 Methadone measuremen t, urine Dr. Anthony Booth MD Work Phone: Start: 07-14-2024 Urnls dip stick/tabl et reagent auto microscopy Dr. Anthony Booth MD Work Phone: Start: 07-14-2024 X-ray of chest, PA a nd lateral views Dr. Anthony Booth MD Work Phone: Start: 07-14-[address] Anthony Booth MD Work Phone: Start: 07-09-2024 Urine test visual color cmprsn meths Luis Bridenthal [employer] - PROJECT ANALYST Work Phone: Start: 06-13-[address] Anthony Booth MD Work Phone: Start: 06-02-2024 Methadone measuremen t, urine Dr. Anthony Booth MD Work Phone: Start: 06-02-2024 Urnls dip stick/tabl et reagent auto microscopy Dr. Anthony Booth MD Work Phone: Start: 03-23-2024 Measurement of 3,4-methylenedioxymethamphe tamine in urine Dr. Anthony Booth MD Work Phone: Start: 03-23-2024 Methadone measuremen t, urine Dr. Anthony Booth MD Work Phone: Start: 03-23-[address] Anthony Booth MD Work Phone: Start: 03-23-2024 Measurement of renal function Dr. Anthony Booth MD Work Phone: Comment on above: GFR Calc Start: 03-23-[address] Anthony Booth MD Work Phone: Comment on above: The serum:whole bloo d ethanol ratio is approximately 1.14and varies slightly with hematocrit. Medical Alcohol reference interval and critical value innon-tolerant individuals; 50 - 100 Impairment 100 Intoxication 100 - 250 Severe Poisoning 250 - 400 Deep/possible fatal coma Start: 01-09-2024 Polymerase chain colin ction analysis Dr. Anthony Booth MD Work Phone: Start: 09-02-2023 Urnls dip stick/tabl et reagent auto microscopy Billie Spears [employer] Work Phone: Start: 09-02-2023 SARS-CoV-2 (COVID-19 ) Ag [Presence] in Respiratory specimen by Rapid immunoassay Billie Spears DO Work Phone: Start: 09-02-2023 Comprehensive metabo lic panel Billie Spears DO Work Phone: Start: 09-02-2023 End: 09-02-2023 Drug test def 1-7 classes Billie Shaw ch DO Work Phone: Start: 06-28-2023 Lipid 1996 panel - S pamela or Plasma Billie Spears DO Work Phone: Start: 03-21-2023 Thyrotropin [Units/v [...] Treatment Date Care Activity Detail Author Start: 10-05-2074 RSV Immunization for Adults (1 - 1-dose 75+ series) RSV Immunization for Adults (1 - 1-dose 75+ series) [facility] Start: 2059 RSV Immunization age d 60 or older (1 - 1-dose 60+ series) RSV Immunization aged 60 or older (1 - 1-dose 60+ series) [facility] Start: 10-05-2049 Zoster Vaccines (1 of 2) Zoster Vacc cherie (1 of 2) [facility] Start: 09-30-2031 DTaP/Tdap/Td Vaccine s (7 - Td or Tdap) DTaP/Tdap/Td Vaccines (7 - Td or Tdap) [facility] Start: 09-30-2031 Urine microalbumin profile DTa P,Tdap,Td Vaccine (7 - Td or Tdap) [facility] Start: 06-27-2028 Lipid panel Lipid Panel [facility] Start: 01-09-2025 Depression Monitoring Depression Mon itoring [facility] Start: 10-14-2024 Influenza vaccination Influenz a Vaccine (Season Ended) [facility] Start: 09-24-2024 End: 09-24-2024 Patient encounter procedure 09/24/2024 2:20 PM EDT Office Visit [address] [address] Luis Kathleen, [employer]CH[employer]IC - PROJECT ANALYST [address] [facility] [place] [address] [facility] Start: 07-14-2024 [facility] Start: 07-14-2024 [facility] Start: 07-14-2024 Consultation [facility] Start: 06-27-2024 COVID-19 Vaccine ( season) COVID-19 Vaccine ( season) [facility] Comment on above: Postponed from 10/14 (Patient Refused) Start: 06-27-2024 Hepatitis C screening Hepatitis C Sc reening [facility] Comment on above: Postponed from 10/05 (Patient Refused) Start: 06-27-2024 HPV Vaccines (1 - 3- dose series) HPV Vaccines (1 - 3-dose series) [facility] Comment on above: Postponed from 10/05 (Patient Refused) Start: 06-27-2024 Pneumococcal Vaccine : Pediatrics (0 to 5 Years) and At-Risk Patients (6 to 49 Years) (1 of 2 - PCV) Pneumococcal Vaccine: Pediatrics (0 to 5 Years) and At-Risk Patients (6 to 49 Years) (1 of 2 - PCV) [facility] Comment on above: Postponed from 10/05 (Patient Refused) Start: 06-27-2024 Pneumococcal Vaccine : Pediatrics (0 to 5 Years) and At-Risk Patients (6 to 64 Years) (1 of 2 - PCV) Pneumococcal Vaccine: Pediatrics (0 to 5 Years) and At-Risk Patients (6 to 64 Years) (1 of 2 - PCV) [facility] Comment on above: Postponed from 10/05 (Patient Refused) Start: 06-13-2024 Drug tst prsmv instr mnt chem analyzers pr date DRUG TEST PRSMV CHEM ANLYZR [facility] Start: 06-13-2024 [facility] Start: 06-13-2024 [facility] Start: 06-13-2024 [facility] Start: 06-02-2024 [facility] Start: 06-02-2024 Gonadotropin chorion ic qualitative CHORIONIC GONADOTROPIN ASSAY [facility] Start: 05-05-2024 [facility] Start: 04-28-2024 [facility] Start: 04-25-2024 End: 04-25-2024 [facility] Start: 04-08-2024 BP Controlled (<130/80) BP Controlle d (<130/80) [facility] Start: 03-23-2024 [facility] Start: 03-23-2024 Insj non-ndwellg jelly dder catheter INSERT BLADDER CATHETER [facility] Start: 03-23-2024 [facility] Start: 03-23-2024 Consultation [facility] Start: 03-21-2024 Thyroid stimulating hormone measurement TSH Level [facility] Start: 01-24-2024 Lipid panel Lipid Panel [facility] Start: 01-10-2024 Patient discharge [facility] Start: 01-08-2024 Ambulation without limitation [facility] Start: 01-08-2024 Assessment of risk o f venous thromboembolism [facility] Start: 01-08-2024 Insertion of cathete r into peripheral vein [facility] Start: 01-08-2024 Oxygen therapy [facility] Start: 01-08-2024 Providing care accor ding to standard [facility] Start: 01-08-2024 Referral to service [facility] Start: 01-08-2024 [facility] Start: 01-08-2024 Admission procedure [facility] Start: 01-08-2024 Consultation [facility] Start: 01-08-2024 Patient referral to dietitian [facility] Start: 12-29-2023 Depression Monitoring Depression [facility] Start: 10-15-2023 COVID-19 Vaccine ( season) COVID-19 Vaccine ( season) [facility] Start: 10-15-2023 Influenza vaccination [facility] Start: 09-19-2023 Depression Monitoring Depression [facility] Start: 09-19-2023 Depresssion Monitoring Depresssion M onitoring [facility] Start: 09-04-2023 End: 09-04-2023 Patient encounter procedure 09/04/2023 10:00 AM EDT Office Visit [facility] [address] [place] [address] Anthony Booth MD [address] [place] [address] [place] [address] [facility] Start: 06-28-2023 End: 06-27-2024 Comprehensive metabolic 1998 panel - Serum or Plasma Comprehensive metabolic panel Lab Routine Screening for diabetes mellitus Expected: 06/28/2023 (Approximate), Expires: 06/27/2024 [facility] Work Phone: Comment on above: Expected: 06/28/2023 (Approximate), Expires: 06/27/2024 Start: 06-28-2023 End: 06-27-2024 Lipid 1996 panel - Serum or Plasma Lipid panel Lab Routine Screening for lipid disorders Expected: 06/28/2023 (Approximate), Expires: 06/27/2024 [facility] Comment on above: Expected: 06/28/2023 (Approximate), Expires: 06/27/2024 Start: 06-28-2023 End: 06-27-2024 Misc STAT ([facility]) Misc STAT ([facility]) Lab Routine Controlled drug dependence (HCC) Expected: 06/28/2023 (Approximate), Expires: 06/27/2024 [facility] Comment on above: Expected: 06/28/2023 (Approximate), Expires: 06/27/2024 Start: 06-28-2023 End: 06-28-2023 Patient encounter procedure 06/28/2023 9:45 AM EDT Office Visit [facility] [address] [place] [address] Anthony Booth MD [address] [place] [address] [place] [address] [facility] Start: 05-23-2023 End: 05-23-2023 Patient encounter procedure 05/23/2023 2:00 PM EDT Office Visit [facility] [address] [facility] [place] [address] [place] [address] Anthony Booth MD [address] [facility] [place] [address] [facility] Start: 05-05-2023 End: 05-05-2023 Clinical Support 05/05/2023 10:30 AM EDT Clinical Support [facility] [address] [facility] [place] [address] [facility] Start: 04-18-2023 End: 04-18-2023 Patient encounter procedure 04/18/2023 2:00 PM EST Office Visit [facility] [address] [facility] [place] [address] [place] [address] Anthony Booth MD [address] [facility] [place] [address] [facility] Start: 03-28-2023 End: 03-28-2023 Clinical Support 03/28/2023 11:00 AM EST Clinical Support [facility] [address] [facility] [place] [address] [facility] Start: 03-21-2023 End: 03-21-2024 CBC W Auto Differential panel - Blood CBC auto differential Lab Routine Polycythemia Expected: 03/21/2023 (Approximate), Expires: 03/21/2024 [facility] Work Phone: Comment on above: Expected: 03/21/2023 (Approximate), Expires: 03/21/2024 Start: 03-21-2023 End: 03-21-2024 Comprehensive metabolic 1998 panel - Serum or Plasma Comprehensive metabolic panel Lab Routine ETOH abuse Expected: 03/21/2023 (Approximate), Expires: 03/21/2024 [facility] Comment on above: Expected: 03/21/2023 (Approximate), Expires: 03/21/2024 Start: 03-21-2023 End: 03-21-2024 Thyrotropin [Units/volume] in Serum or Plasma TSH Lab Routine Acquired hypothyroidism Expected: 03/21/2023 (Approximate), Expires: 03/21/2024 [facility] Comment on above: Expected: 03/21/2023 (Approximate), Expires: 03/21/2024 Start: 03-21-2023 End: 03-21-2024 Thyroxine (T4) free [Mass/volume] in Serum or Plasma T4, free Lab Routine Acquired hypothyroidism Expected: 03/21/2023 (Approximate), Expires: 03/21/2024 [facility] Comment on above: Expected: 03/21/2023 (Approximate), Expires: 03/21/2024 Start: 03-21-2023 End: 03-21-2024 Triiodothyronine (T3) Free [Mass/volume] in Serum or Plasma T3, free Lab Routine Acquired hypothyroidism Expected: 03/21/2023 (Approximate), Expires: 03/21/2024 [facility] Comment on above: Expected: 03/21/2023 (Approximate), Expires: 03/21/2024 Start: 02-13-2023 Behavioral Health Screening Behavioral Health Screening [facility] Start: 10-14-2022 Covid-19 Vaccine ( season) Covid-19 Vaccine ( season) [facility] Start: 10-14-2022 Influenza vaccination Influenza Vacc ine (#1) [facility] Start: 10-05-2020 Screening for malign ant neoplasm of cervix [facility] Start: 10-05-2018 Hepatitis A Vaccines (1 of 2 - Risk 2-dose series) Hepatitis A Vaccines (1 of 2 - Risk 2-dose series) [facility] Start: 10-05-2018 Pneumococcal Vaccine : Pediatrics (0 to 5 Years) and At-Risk Patients (6 to 49 Years) (1 of 2 - PCV) Pneumococcal Vaccine: Pediatrics (0 to 5 Years) and At-Risk Patients (6 to 49 Years) (1 of 2 - PCV) [facility] Start: 10-05-2017 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 Disease Visit Annual PCP Team Chronic Disease Visit [facility] Start: 10-05-2017 SILVERIO (Gonorrhea) Scree yelitza () GC (Gonorrhea) Screening () [facility] Start: 10-05-2017 Hepatitis C screening Hepatitis C Sc reening [facility] Start: 10-05-2017 HIV screening HIV Screening [facility] Start: 10-05-2017 Screening for Chlamy yary trachomatis Chlamydia Screening () [facility] Start: 2015 Meningococcal B Vacc ine: Consider Based On Risk (1 of 2 - Patient Seeks Protection) Meningococcal B Vaccine: Consider Based On Risk (1 of 2 - Patient Seeks Protection) [facility] Start: 10-05-2014 HPV Vaccine (1 - 3-d ose series) HPV Vaccine (1 - 3-dose series) [facility] Start: 10-05-2014 HPV Vaccines (1 - 3- dose series) HPV Vaccines (1 - 3-dose series) [facility] Start: 10-05-2013 Peds To Adult Transi tion Annual Assessment Peds To Adult Transition Annual Assessment [facility] Start: 10-05-2012 Varicella vaccination Varicell a Vaccines (1 of 2 - 13+ 2-dose series) [facility] Start: 2011 Depression Screening Depression Scre ening [facility] Start: 2011 Peds To Adult Transi tion Initial Discussion Peds To Adult Transition Initial Discussion [facility] Start: 10-05-2010 HPV Vaccines (1 - 2- dose series) HPV Vaccines (1 - 2-dose series) [facility] Start: 10-05-2005 Pneumococcal vaccination Pneum ococcal Vaccine (1 of 2 - PCV) [facility] Start: 10-05-2005 Pneumococcal Vaccine : Pediatrics (0 to 5 Years) and At-Risk Patients (6 to 64 Years) (1 - PCV) Pneumococcal Vaccine: Pediatrics (0 to 5 Years) and At-Risk Patients (6 to 64 Years) (1 - PCV) [facility] Start: 10-05-2005 Pneumococcal Vaccine : Pediatrics (0 to 5 Years) and At-Risk Patients (6 to 64 Years) (1 of 2 - PCV) Pneumococcal Vaccine: Pediatrics (0 to 5 Years) and At-Risk Patients (6 to 64 Years) (1 of 2 - PCV) [facility] Start: 11-08-2004 Varicella vaccination Varicell a Vaccines (1 of 2 - 2-dose childhood series) [facility] Start: 2003 IPV Vaccines (4 of 4 - 4-dose series) IPV Vaccines (4 of 4 - 4-dose series) [facility] Start: 04-07-2000 COVID-19 Vaccine (#1) COVID-19 Vacci ne (#1) [facility] Start: 1999 Screening for Chlamy yary trachomatis Chlamydia and Gonorrhea Screening [facility] Start: 1999 Thyroid stimulating hormone measurement TSH Level [facility] Alanine aminotransfe rase [Enzymatic activity/volume] in Serum or Plasma [facility] Albumin [Mass/volume ] in Serum or Plasma [facility] Alkaline phosphatase [Enzymatic activity/volume] in Serum or Plasma [facility] Anion gap in Serum o Plasma [facility] Bilirubin, total measurement [facility] BUN/Creatinine ratio [facility] Calcium [Mass/volume ] in Serum or Plasma [facility] Carbon dioxide, tota l [Moles/volume] in Central venous blood [facility] Choriogonadotropin.b eta subunit ( test) [Presence] in Serum or Plasma [facility] Creatinine [Mass/vol ume] in Serum or Plasma [facility] Glucose [Mass/volume ] in Serum or Plasma [facility] Measurement of renal function [facility] Patient Education [facility] Work Phone: Patient referral [facility] Work Phone: Potassium measurement [facility] Serum chloride measurement [facility] Sodium measurement [facility] Total protein measurement [facility] Urea nitrogen [Mass/volume] in Serum or Plasma [facility] Immunizations Immunization Date Immunization Notes Care Provider Shailesh garcia 09-29-2021 tetanus toxoid, redu lalito diphtheria toxoid, and acellular pertussis vaccine, adsorbed [facility] 09-12-2012 tetanus toxoid, redu lalito diphtheria toxoid, and acellular pertussis vaccine, adsorbed [facility] 10-11-2004 measles, mumps and r ubella virus vaccine [facility] 06-22-2001 diphtheria, tetanus toxoids and acellular pertussis vaccine, unspecified formulation Anthony Booth MD Work Phone: [facility] 01-20-2001 measles, mumps and r ubella virus vaccine [facility] 01-20-2001 pneumococcal conjuga te vaccine, 7 valent Anthony Booth MD Work Phone: [facility] 10-11-2000 hepatitis B vaccine, adult dosage [facility] 10-11-2000 zoster vaccine recombinant [facility] 07-20-2000 pneumococcal conjuga te vaccine, 7 valent Anthony Booth MD Work Phone: [facility] 07-20-2000 poliovirus vaccine, inactivated Anthony Booth MD Work Phone: [facility] 07-20-2000 poliovirus vaccine, unspecified formulation Anthony Booth MD Work Phone: [facility] 04-21-2000 diphtheria, tetanus toxoids and acellular pertussis vaccine, unspecified formulation Anthony Booth MD Work Phone: [facility] 04-21-2000 hepatitis B vaccine, adult dosage [facility] 02-25-2000 diphtheria, tetanus toxoids and acellular pertussis vaccine, unspecified formulation Anthony Booth MD Work Phone: [facility] 02-25-2000 poliovirus vaccine, inactivated Anthony Booth MD Work Phone: [facility] 1999 diphtheria, tetanus toxoids and acellular pertussis vaccine, unspecified formulation Anthony Booth MD Work Phone: [facility] 1999 poliovirus vaccine, inactivated Anthony Booth MD Work Phone: [facility] 1999 hepatitis B vaccine, adult dosage [facility] Payers Date Payer Category Payer Self-pay 2022 Medicaid [id number] 2022 Medicaid O [facility] MEDICAID ODM [id number] 1999 Unknown [id number] [id number]8 1999 Unknown [id number] 2.16.840.1.655497.3.579.2.598 1999 Unknown [id number] 2.16.840.1.942384.3.579.2.598 1999 Unknown [id number] 2.16.840.1.405016.3.579.2.598 1999 Unknown [id number] 2.16.840.1.433349.3.579.2.598 1999 Unknown [id number] 2.16.840.1.639179.3.579.2.598 1999 Unknown [id number] 2.16.840.1.181422.3.579.2.627 1999 Unknown [id number] 2.16.840.1.517683.3.579.2.627 1959 Medicaid [id number] Unknown [id number] 2.16.840.1.663891.3.579.2.921 Unknown [id number] 2.16.840.1.468570.3.579.2.921 Unknown [id number] 2.16.840.1.638313.3.579.2.462 Unknown [id number] 2.16.840.1.389576.3.579.2.462 Unknown [id number] 2.16.840.1.082739.3.579.2.462 Unknown [id number] 2.840.1.677972.3.579.2.462 Unknown [id number] 2.840.1.749756.3.579.2.462 Unknown [id number] 2.840.1.401853.3.579.2.462 Unknown [id number] 2.840.1.869153.3.579.2.462 Unknown [id number] 2.840.1.843406.3.579.2.462 Unknown [id number] 2.840.1.939180.3.579.2.462 Unknown [id number] 2.840.1.677011.3.579.2.462 Unknown [id number] 2.840.1.240451.3.579.2.462 Unknown [id number] 2.840.1.347802.3.579.2.462 Unknown [id number] .840.1.124673.3.579.2.462 Unknown [id number] .840.1.536214.3.579.2.462 Unknown [id number] .840.1.245098.3.579.2.462 Unknown [id number] 840.1.099582.3.579.2.462 Unknown [id number] .840.1.685080.3.579.2.462 Unknown [id number] .840.1.079317.3.579.2.462 Unknown [id number] 2.840.1.836675.3.579.2.462 Unknown [id number] 2.840.1.288265.3.579.2.462 Unknown [id number] 2.840.1.881151.3.579.2.462 Unknown [id number] 2.840.1.827869.3.579.2.462 Unknown [id number] 2.16.840.1.628849.3.579.2.462 Unknown [id number] 2.16.840.1.395053.3.579.2.462 Unknown [id number] 2.16.840.1.454477.3.579.2.462 Social History Date Type Detail Facility Start: 04[facility]24 [facility] tobacco smoker [facility] Start: 04-17-2023 End: 11-13-2022 History of tobacco use Cigarette Smoker [facility] Start: 02-01-2022 End: 07-09-2024 Alcohol intake Current drinker of alcohol (finding) [facility] Start: 10-26-2022 End: 06-28-2023 History of Social function [facility] Start: 10-26-2022 End: 06-28-2023 Alcohol Use Disorder Identification Test - Consumption [AUDIT-C] [facility] How often to you hav e a drink containing alcohol? Monthly or less [facility] How many standard dr inks containing alcohol do you have on a typical day? 3 or 4 [facility] How often do you hav e 6 or more drinks on 1 occasion? Less than monthly [facility] Start: 1999 Sex [facility] Start: 12-02-2021 Gender identity Identifies as female gender (finding) [facility] Start: 12-02-2021 Sexual orientation Bisexual (finding ) [facility] Start: 10-16-2022 End: 10-26-2022 Exposure to SARS-CoV-2 (event) Not sure [facility] Start: 03-14-2023 End: 07-14-2024 Tobacco smoking status UTIS Ex-smoker [facility] [place]: 11-13-2022 History of tobacco use Current smoker [facility] Start: 03-14-2023 End: 09-02-2023 Tobacco use and exposure Smokeless tobacco non-user [facility] Start: 03-21-2023 End: 04-25-2023 Alcohol intake Ex-drinker (finding) [facility] Adolescent depressio n screening assessment 17 [facility] Start: 04-02-2023 Tobacco smoking stat us NHIS Never smoked tobacco (finding) [facility] Start: 04-02-2023 Yes [facility] Start: 04-07-2023 End: 09-02-2023 Tobacco smoking status NHIS Smokes tobacco daily (finding) [facility] (I/We) worried wheth er (my/our) food would run out before (I/we) got money to buy more. Sometimes true [facility] In the past 12 month s, was there a time when you were not able to pay the mortgage or rent on time? No [facility] Start: 06-08-2023 Alcohol Comment relapsed, was drinking past few days [facility] Start: 2000 Sex Assigned At Not on file [facility] Sex Assigned At Sex [facility] Start: 09-13-2021 End: 06-02-2024 Sex Female (finding) [facility] NEGATED: Highlighted row [facility] NEGATED: Highlighted row Not [facility] Goals Date Patient Goal Desired Activity /State Functional Status Date Assessment Result Facility 07-09-2024 Patient Health Questionnaire 2 item (PHQ-2) [Reported] [facility] 01-10-2024 Functional status Ambulates;Up ad shena [facility] Work Phone: 08-18-2023 Functional Status Identified as high risk, Room located near nursing station, Room check performed, 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 [facility] 08-17-2023 Functional Status Independent [facility] 04-07-2023 Functional status Friend [facility] Work Phone: 04-02-2023 Functional status Appropriate [facility] Work Phone: Mental Status Date Assessment Result Facility 07-14-2024 Cognitive function Level Of Cons ciousness Awake;Alert;Appropriate [facility] Work Phone: 06-02-2024 Cognitive function Level Of Cons ciousness Awake;Alert;Appropriate;Follow s Commands [facility] Work Phone: 01-10-2024 Cognitive function Voice/Name [facility] Work Phone: 08-18-2023 Mental Status Oriented x 4 [facility] francine Davis 04-02-2023 Cognitive function Patient Behavior [facility] Work Phone: Clinical Notes 03-21-2023 to 07-14-2024 Assessment & Plan Note - Luis Kathleen APRN - BAM - 07/09/2024 7:39 PM EDTAssessment & Plan Note - LuisBRENDA Arteaga CNP - 07/09/2024 7:39 PM EDT Note Date & Type Note Facility 07-14-2024 Hospital Discharg e instructions Additional Instructions Your x-ray from earlier today confirmed you do not have pneumonia. Your exam and symptoms are consistent with a viral upper respiratory tract infection which will take on average 18 to 21 days to resolve. Use your inhaler to help with shortness of breath/wheeze. Use medications such as Delsym or Robitussin to help with cough and Sudafed for decongestion. Return to the ER should you have any further concerns Patient however is not in respiratory distress or requiring oxygen or showing signs of sepsis and is medically cleared for placement in police custody/longterm [facility] Work Phone: 07-14-2024 Discharge summary [facility] 07-14-2024 Radiology Diagnostic study note [facility] Imaging Services [address] [place] [address] Chest PA and Lateral MR#: [id number] Acct: [id number] Name: DHAVAL MOON Rep #: [id number] : 2000 F 23 From: Adam Hernandes MD PCP: Care Physician,No Primary Status: REG ER Study:Chest PA and Lateral Date of Exam: 07/14/24 Exam# [id number] Ordering Dr: Christine Pinedo DO PROCEDURE: CHEST PA AND LATERAL 07/14/2024 REASON FOR EXAM: COUGH TECHNIQUE: Frontal and lateral views of the chest. COMPARISON: 12/06/2023, 07/19/2023 and 12/10/2018 FINDINGS: The lungs are clear. No pleural effusion. The cardiac and mediastinal contoursappear unchanged. The visualized osseous structures appear within limits. RAD/Chest PA and Lateral IMPRESSION: No evidence of acute disease. Reading Location: [id number] CC: Dr. 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 Reports currently being without psychiatric provider. Will reach out to her pharmacy to see what most recent prescriptions are for her psychiatric medications which she is not sure of the dosing on. [facility] 07-09-2024 Miscellaneous Notes Associated Problem(s): Moderate episode of recurrent major depressive disorder (HCC) Denies any suicidal or homicidal ideation. Reports currently being without psychiatric provider. Will reach out to her pharmacy to see what most recent prescriptions are for her psychiatric medications which she is not sure of the dosing on. Associated Problem(s): Moderate persistent asthma with exacerbation Stable, continue current inhalers Associated Problem(s): Anxiety Partial remission. Current psychiatric medications unknown. Will reach out to pharmacy to see what most recent prescriptions are. Patient denies having current psychiatric provider Associated Problem(s): Nausea and vomiting Continue Zofran as needed. Currently asymptomatic Associated Problem(s): Primary hypertension Controlled. Blood pressure 117/81. Continue current medications losartan 50 mg daily, metoprolol XL 25 mg twice daily documented in this encounter [facility] 07-09-2024 Evaluation + Plan note Associated Problem(s): Moderate persistent asthma with exacerbation Stable, continue current inhalers [facility] 07-09-2024 Evaluation + Plan note Associated Problem(s): Anxiety Partial remission. Current psychiatric medications unknown. Will reach out to pharmacy to see what most recent prescriptions are. Patient denies having current psychiatric provider [facility] 07-09-2024 Evaluation + Plan note Associated Problem(s): Nausea and vomiting Continue Zofran as needed. Currently asymptomatic [facility] 07-09-2024 Evaluation + Plan note Associated Problem(s): Primary hypertension Controlled. Blood pressure 117/81. Continue current medications losartan 50 mg daily, metoprolol XL 25 mg twice daily [facility] 07-09-2024 Telephone encounter Note Patient was seen in office today by Farideh [facility] 07-09-2024 Miscellaneous Notes Patient was seen in office today by Farideh Images from the original note were not included. Left a message to return call. BRENDA Foster CNP to Me (Selected Message) 07/03/24 4:29 PM Note This is a psychiatric medication that should be prescribed by a psychiatrist or psychiatric provider. Recommend that she reach out to her last psychiatric provider to get reestablished. This is a psychiatric medication that should be prescribed by a psychiatrist or psychiatric provider. Recommend that she reach out to her last psychiatric provider to get reestablished. S: Patient spoke with [facility] nurse regarding medication refill B: Onset of symptoms/concern 07/03/24 A: States they need refill of Olanzapine. States they are also having an increase in racing thoughts and is out of medication since leaving rehab. Feels depression. States they left rehab 2 days ago AMA. States they have concerns they may be and would like blood test to confirm or deny. Denies thoughts of harming others, denies abdominal pain, denies vaginal bleeding. R: Appt 07/09/24 @ 1420 with Ford Kathleen. Negative responses to COVID screening. Advised patient should arrive 15 minutes early, bring photo ID, ins cards, and medications. Patient understands care advice of community resources such as [phone]. Patient advised medications are ordered at provider discretion and provider may require office visit before prescribing. Allergies and pharmacy verified. No further needs at this time. Patient instructed to call back with new or worsening symptoms. Medication name: Olanzapine Medication dosage: 20 mg (Miligrams Monthly quantity needed: 30 How many day supply requestin days Medication route: oral (PO) Medication administration time(s): bedtime (HS) If taking medication PRN, reason for taking medication: N/A If this is a controlled substance do you receive this or any other controlled medication from any other doctor or facility: N/A Ordering provider: Historical provider Date of last office visit: 03/21/23 Date of next office visit: 07/09/24 Date of last refill: (see medication tab): unknown Updated/Validated preferred pharmacy: Yes Patient instructed to contact the pharmacy prior to picking up the medication: Yes Reason for Disposition Prescription refill request for ESSENTIAL medicine (i.e., likelihood of harm to patient if not taken) and triager unable to refill per department policy Protocols used: Medication Refill and Renewal [id number] documented in this encounter [facility] 07-09-2024 History of Present illness Narrative Patient was identified by name and Date of . Patient identified by name and date of . Urine specimen cup labeled with patient name and date of . Urine cup given to patient, urine collected from patient. POCT HCG Urine ordered and signed by provider. POCT HCG urine results entered and were sent to provider. Charged Results Entered Images from the original note were not included. 07/09/2024 Dhaval Moon (: 2000) is a 23 y.o. female , Established patient, here for evaluation of the following chief complaint(s): Follow-up, Possible , Medication Check, and Med Refill ASSESSMENT/PLAN: 1. Moderate persistent asthma without complication Assessment & Plan: Stable, continue current inhalers Orders: - albuterol 108 (90 Base) MCG/ACT inhaler; Inhale 2 puffs every 6 hours as needed for wheezing., Starting Mon07/09/2024, Normal 2. Anxiety Assessment & Plan: Partial remission. Current psychiatric medications unknown. Will reach out to pharmacy to see what most recent prescriptions are. Patient denies having current psychiatric provider Orders: - hydrOXYzine pamoate (Vistaril) 25 MG capsule; Take 2 capsules (50 mg) by mouth every 8 hours as needed for anxiety., Starting Mon07/09/2024, Normal 3. Seasonal allergies - fexofenadine (Ann-Marie) 180 MG tablet; Take 1 tablet (180 mg) by mouth Daily as needed (allergies)., Starting Mon07/09/2024, Until Mon07/09/2025 at 2359, Normal 4. Nausea and vomiting, unspecified vomiting type Assessment & Plan: Continue Zofran as needed. Currently asymptomatic Orders: - ondansetron (Zofran) 4 MG tablet; Take 1 tablet (4 mg) by mouth every 8 hours as needed for nausea or vomiting., Starting Mon07/09/2024, Normal 5. Primary hypertension Assessment & Plan: Controlled. Blood pressure 117/81. Continue current medications losartan 50 mg daily, metoprolol XL 25 mg twice daily Orders: - losartan (Cozaar) 50 MG tablet; Take 1 tablet (50 mg) by mouth daily., Starting Mon07/09/2024, Normal 6. Missed period - POCT , urine manually resulted 7. Moderate episode of recurrent major depressive disorder (HCC) Assessment & Plan: Denies any suicidal or homicidal ideation. Reports currently being without psychiatric provider. Will reach out to her pharmacy to see what most recent prescriptions are for her psychiatric medications which she is not sure of the dosing on. Follow up for 3 month medwillis. SUBJECTIVE/OBJECTIVE: [facility] - Dhaval Moon (: 2000) is a 23 y.o. female , Established patient, here for the evaluation of the following chief complaint(s): Follow-up, Possible , Medication Check, and Med Refill Patient presents for follow-up and med check. She reports that she was briefly in and out of rehab for street drug use and most recently left [facility] after 2.5 weeks in a treatment center. History of using EtOH and meth, last had meth about 1 month ago. States having some alcohol within the past couple of days. Denies any suicidal or homicidal ideation. Reports that she has had some hallucinations but these are not new. She was on an antipsychotic but does not have a current prescription for 1. She states she is not currently established with a psychiatric provider but reports that she has been seen by 180 in the past. States she thinks she might be but is unable to tell me when her last menstrual was. She is currently living with a friend in [place] and reports that she has limited contact with her immediate family. She does see her grandma quite often and reports a good relationship with her. Asthma-reports good symptom control does need a refill of her albuterol Hypertension-reports that she still is taking her blood pressure medications Reports they did blood work when she was in the rehab center but she does not know the results. Review of Systems Constitutional: Negative. HENT: Some nasal congestion with seasonal allergies Respiratory: Negative. Gastrointestinal: Positive for nausea and vomiting. Negative for abdominal pain, blood in stool, constipation and rectal pain. Genitourinary: Negative. Neurological: Negative. Psychiatric/Behavioral: Positive for agitation, decreased concentration and hallucinations. Negative for dysphoric mood, self-injury, sleep disturbance and suicidal ideas. The patient is nervous/anxious. Vitals: 07/09/24 1420 BP: 117/81 Pulse: 73 Resp: 20 Temp: 36.8 C (98.3 F) TempSrc: Infrared SpO2: 95% Weight: 236 lb 12.8 oz (107 kg) Physical Exam Constitutional: General: He is not in acute distress. Appearance: Normal appearance. He is obese. He is not ill-appearing. HENT: Head: Normocephalic and atraumatic. Right Ear: Tympanic membrane, ear canal and external ear normal. There is no impacted cerumen. Left Ear: Tympanic membrane, ear canal and external ear normal. There is no impacted cerumen. Nose: Nose normal. No congestion or rhinorrhea. Mouth/Throat: Mouth: Mucous membranes are moist. Pharynx: Oropharynx is clear. Uvula midline. No oropharyngeal exudate or posterior oropharyngeal erythema. Eyes: Conjunctiva/sclera: Conjunctivae normal. Pupils: Pupils are equal, round, and reactive to light. Neck: Vascular: No carotid bruit. Cardiovascular: Rate and Rhythm: Normal rate and regular rhythm. Pulses: Normal pulses. Heart sounds: Normal heart sounds. Pulmonary: Effort: Pulmonary effort is normal. No respiratory distress. Breath sounds: Normal breath sounds. Abdominal: General: Abdomen is flat. Bowel sounds are normal. Palpations: Abdomen is soft. Tenderness: There is no abdominal tenderness. There is no right CVA tenderness or left CVA tenderness. Musculoskeletal: General: Normal range of motion. Cervical back: Normal range of motion and neck supple. No rigidity or tenderness. Lymphadenopathy: Cervical: No cervical adenopathy. Skin: General: Skin is warm and dry. Findings: No erythema or rash. Neurological: General: No focal deficit present. Mental Status: He is alert and oriented to person, place, and time. Psychiatric: Attention and Perception: Attention normal. He perceives visual (Reports having some visual hallucinations occasionally) hallucinations. He does not perceive auditory hallucinations. Mood and Affect: Mood and affect normal. Speech: Speech normal. Behavior: Behavior normal. Thought Content: Thought content is paranoid. Cognition and Memory: Cognition is impaired. An electronic signature was used to authenticate this note. BRENDA Anthony CNP 07/09/2024 7:43 PM documented in this encounter [facility] 07-05-2024 Telephone encounter Note Images from the original note were not included. Left a message to return call. BRENDA Foster CNP to Me (Selected Message) 07/03/24 4:29 PM Note This is a psychiatric medication that should be prescribed by a psychiatrist or psychiatric provider. Recommend that she reach out to her last psychiatric provider to get reestablished. [facility] 07-03-2024 Telephone encounter Note This is a psychiatric medication that should be prescribed by a psychiatrist or psychiatric provider. Recommend that she reach out to her last psychiatric provider to get reestablished. [facility] 07-03-2024 Telephone encounter Note S: Patient spoke with [facility] nurse regarding medication refill B: Onset of symptoms/concern 07/03/24 A: States they need refill of Olanzapine. States they are also having an increase in racing thoughts and is out of medication since leaving rehab. Feels depression. States they left rehab 2 days ago AMA. States they have concerns they may be and would like blood test to confirm or deny. Denies thoughts of harming others, denies abdominal pain, denies vaginal bleeding. R: Appt 07/09/24 @ 4440 with Ford Kathleen. Negative responses to COVID screening. Advised patient should arrive 15 minutes early, bring photo ID, ins cards, and medications. Patient understands care advice of [facility] resources such as [phone]. Patient advised medications are ordered at provider discretion and provider may require office visit before prescribing. Allergies and pharmacy verified. No further needs at this time. Patient instructed to call back with new or worsening symptoms. Medication name: Olanzapine Medication dosage: 20 mg (Miligrams Monthly quantity needed: 30 How many day supply requestin days Medication route: oral (PO) Medication administration time(s): bedtime (HS) If taking medication PRN, reason for taking medication: N/A If this is a controlled substance do you receive this or any other controlled medication from any other doctor or facility: N/A Ordering provider: Historical provider Date of last office visit: 03/21/23 Date of next office visit: 07/09/24 Date of last refill: (see medication tab): unknown Updated/Validated preferred pharmacy: Yes Patient instructed to contact the pharmacy prior to picking up the medication: Yes Reason for Disposition Prescription refill request for ESSENTIAL medicine (i.e., likelihood of harm to patient if not taken) and triager unable to refill per department policy Protocols used: Medication Refill and Renewal [id number] [facility] 06-02-2024 Discharge summary [facility] 06-02-2024 Discharge summary Note Date/Time June 02, 2024 3:13pm [facility] Medical Records Department [address] [place] [address] Emergency Department Summary 06/02/24 MR#: [id number] Acct: [id number] Name: DHAVAL MOON Rep #:[id number] : 2000 23 From: Filippo Fuentes MD PCP: Dr. Anthony Booth MD Status:REG ER Location: ED HPI History of Present Illness Chief Complaint: General Illness Detail of Chief Complaint: Patient with unusual symptoms. Patient was seen May 05 for mental health Informant: patient Onset/Context/Timing Onset: Today Context: - (Unable to determine) Timing: Intermittent Quality: Formication Location: Upper extremities Current Severity: Mild Maximum Severity: Severe Worsened by: Per patient parasites crawling under her skin Relieved by: Nothing Associated Symptoms Associated Symptoms: Nothing that patient admits to Narrative Narrative: Patient is a 23-year-old woman. She was seen on May 05, 2024 for mental health evaluation. She has history of anxiety disorder, bipolar affective disorder, schizophrenia and methamphetamine abuse. When asked if she smokes sheacknowledged yes. When asked if she consumed alcoholic products she stated yes. And asked if she uses drugs her response was I am a recovering addict . Whenasked when was the last time she used she responded last night, but not much . Patient does not use any form of control. She is sexually active. She has no signs or symptoms of . Her biggest concern is that something is wrong inside her. She had complaints of seeing parasites in the past. She does have history of scabies. Patient denies headache, visual, ocular auditory symptoms. Patient denies cardiac or respiratory symptoms. Patient denies nausea, vomiting or diarrhea. Patient denies dysuria, frequency, urgency or hematuria. She does not recall when her last menses was. Prior similar symptoms: Yes Recent Illness/Hospitalization: Yes [facility] Medical History Hypertension Substance abuse History of bipolar disorder History of schizophrenia Schizo affective schizophrenia Bipolar 1 disorder Alcohol abuse PTSD (post-traumatic stress disorder) Depression Anxiety Home Medications ?Medication ?Instructions ?Recorded ?Last Taken ?Type albuterol sulfate 90 mcg/actuation 1 - 2 puff inhalati on Q4H PRN Sob 12/04/17 Unknown History aerosol inhaler (Ventolin HFA) &/Or Wheezing albuterol sulfate 90 mcg/actuation 6.7 gm IH Q2H PRN P RN Wheezing ##1 07/01/18 Unknown Rx aerosol inhaler folic acid 1 mg tablet 1 mg PO DAILY 07/22/23 Unkno wn History losartan 50 mg tablet 50 mg PO DAILY 07/22/23 Unkn own History pregabalin 100 mg capsule 100 mg PO TID 07/22/23 Unkno wn History albuterol sulfate 90 mcg/actuation 1 - 2 puff inhalati on Q4H PRN PRN 11/05/23 Unknown Rx aerosol inhaler (Ventolin HFA) Wheezing ##1 famotidine 20 mg tablet 20 mg PO BID #60 tabs Unknown Rx olanzapine 2.5 mg tablet 5 mg (2 x 2.5 mg) PO QHS #30 tabs 11/07/23 Unknown Rx ondansetron HCl 8 mg tablet 8 mg PO Q8H PRN PRN Nausea #42 tabs 11/07/23 Unknown Rx hydroxyzine HCl 50 mg tablet 50 mg PO Q8H PRN PRN anxi ety 11/27/23 Unknown History metoprolol succinate 25 mg 25 mg PO BID 11/27/23 Unkno wn History tablet,extended release 24 hr omeprazole 40 mg capsule,delayed 40 mg PO DAILY Unknown History release permethrin 5 % topical cream 1 applic topical Q14D 2 d oses #60 05/05/24 Unknown Rx (Elimite) grams Allergy/AdvReac Type Severity Reaction Status Date / Time Penicillins (PCN) Allergy Hives Verified 06/02/24 12:58 pine nut Allergy Hives Verified 06/02/24 12:58 Social History Smoking Status: Current every day smoker tobacco type: cigarettes and e-cigarettes substance use type: methamphetamine ROS ROS ED Constitutional Constitutional ED: Denies chills, fever(s), subjective or sweats Eyes Eyes: Denies blurry vision or change in vision ENT ENT ED: Denies ear pain, rhinorrhea or sore throat Cardiovascular Cardiovascular: Denies chest pain, orthopnea, palpitations or paroxysmal nocturnal dyspnea Respiratory/Chest Respiratory/Chest: Denies cough, dyspnea, dyspnea on exertion, orthopnea or paroxysmal nocturnal dyspnea Gastrointestinal Gastrointestinal: Denies abdominal pain, diarrhea, nausea or vomiting Genitourinary Genitourinary ED: Denies dysuria, hematuria or urinary frequency Musculoskeletal Musculoskeletal: Denies arthralgias or myalgias Integumentary Denies rash Neurologic Neurologic: Denies paresthesias Psychiatric Psychiatric: Reports anxiety; Denies suicidal ideation Hematologic/Lymphatic Hematologic/Lymphatic: Reports systems reviewed and no addt'l complaints, exceptas documented EXAM Physical Exam Const Vital Signs: 06/02/24 12:58 06/02/24 13:31 Temperature 98.4 F Temperature Source Oral Pulse Rate 125 H Respiratory Rate 16 Respiratory Effort Normal Respiratory Pattern Normal Blood Pressure 148/108 H Blood Pressure Mean 121 Pulse Ox 99 Oxygen Delivery Method Room Air Positive well nourished Constitutional Narrative: Blood pressure is elevated 148/108. Heart rate is elevated 125. Patient is somewhat fidgety. BMI is 42. General Appearance ED: Negative for pallor HEENT Reports moist mucous membranes HEENT Narrative: Head is atraumatic normocephalic. There is no evidence of head lice. Ears are normal. Nares patent. Posterior pharynx is normal. Eyes PERRL and EOMs intact bilaterally General Eye ED: Negative for pale conjunctiva or scleral icterus Neck no lymphadenopathy, supple and no JVD Chest Wall inspection of chest normal and palpation of chest normal Resp normal respiratory effort and clear to auscultation bilaterally Cardio regular rhythm, S1 normal heart sound, S2 normal heart sound and no murmurs Rate: tachycardic GI normal to inspection, nondistended, normoactive bowel sounds, non-tender, non-distended and no masses; Negative for hepatosplenomegaly Back/Spine no CVA tenderness Back/Spine Narrative: Inspection of her back is normal. Extremity normal to inspection General Extremety ED: Negative for edema or tenderness General Extremity: Negative for edema Neuro oriented x3 and CN's II-XII intact bilaterally Sensorium / Orientation: alert Psych Psych Narrative: Patient reporting bugs crawling under her skin. Patient had very little eye contact. Speech is not pressured. She has no suicidal homicidal thoughts. Patient is concerned there is something seriously wrong inside of her. Skin no rashes or lesions noted, no wounds and skin turgor normal General Skin Exam: Negative for jaundice or pallor MDM MDM MDM Narrative Medical decision making narrative: This may represent exacerbation of her bipolar disorder and or schizophrenia. Also need to consider reaction to the methamphetamine which she has history of using and admits to using drugs last evening. Appropriate workup was undertakento assess for metabolic or infectious causes of her symptoms. History & Record Review Additional record(s) reviewed:: Prior ED visit (Patient was seen in the ER on May 05. She was here for mental health reasons. She was discharged home to follow-up with her primary care physician Dr. Darrel Booth.) and Prior labs Lab Data Attestation: I reviewed the patient's lab results. Lab results narrative: CBC is unremarkable. Urinalysis is unremarkable. Tox screen is presumptively positive for amphetamines and cannabis. Labs: Laboratory Results - last 24 hr 06/02/24 06/02/24 13:29 14:27 WBC 9.4 RBC 4.95 Hgb 15.8 H Hct 47.4 H MCV 95.8 MCH 31.9 MCHC 33.3 RDW Std Deviation 47.1 H RDW Coeff of Jaden 13.5 Plt Count 319 MPV 9.5 Immature Gran % (Auto) 0.100 Neut % (Auto) 63.0 Lymph % (Auto) 29.6 [place] % (Auto) 6.9 Eos % (Auto) 0.1 Baso % (Auto) 0.3 Absolute Neuts (auto) 5.9 Absolute Lymphs (auto) 2.78 Nucleated RBC % 0 Sodium Cancelled Potassium Cancelled Chloride Cancelled Carbon Dioxide Cancelled Anion Gap Cancelled BUN Cancelled Creatinine Cancelled Estim Creat Clear Calc Cancelled Est GFR (MDRD) Non-Af Cancelled BUN/Creatinine Ratio Cancelled Glucose Cancelled Calcium Cancelled Total Bilirubin Cancelled AST Cancelled ALT Cancelled Alkaline Phosphatase Cancelled Total Protein Cancelled Albumin Cancelled Globulin Cancelled Albumin/Globulin Ratio Cancelled Urine Color Yellow Urine Clarity Clear Urine pH 6.5 Ur Specific Pearl 1.020 Urine Protein 30 H Urine Glucose (UA) Normal Urine Ketones 15 H Urine Occult Blood Negative Urine Nitrite Negative Urine Bilirubin 1 H Urine Urobilinogen 1 H Ur Leukocyte Esterase 25 H Urine RBC 0 SEEN Urine WBC 0-5 SEEN Ur Squamous Epith Cells 0-5 SEEN Urine Bacteria 0 SEEN Urine Mucus 1+ Urine Test Negative Urine Opiates Screen NEGATIVE U Buprenorphine Qual NEGATIVE Ur Oxycodone Screen NEGATIVE Urine Methadone Screen NEGATIVE Urine Fentanyl Screen NEGATIVE Ur Barbiturates Screen NEGATIVE Ur Phencyclidine Scrn NEGATIVE Ur Amphetamines Screen PRESUMPTIVE POSITIVE U Benzodiazepines Scrn NEGATIVE Urine Cocaine Screen NEGATIVE U Cannabinoids Screen PRESUMPTIVE POSITIVE Treatment and Re-Evaluation :: Suspect patient's increased activity, sense of formication and paranoia is due to the amphetamine use. Discharge Plan Triage Chief Complaint: General Illness ED Provider: Filippo Fuentes Dx/Rx/DC Orders Clinical Impression: Hallucinations of tactile sensation, Sinus tachycardia seen on alarm security or surveillance monitor,Cannabis use disorder, Amphetamine use, Drug-induced paranoia or hallucinations,Elevated blood-pressure reading without diagnosis of hypertension Instructions: Meth Abuse Addiction, ED Formication Prescriptions: No Action albuterol sulfate [Ventolin HFA] 90 MCG HFA aerosol inhaler 1 - 2 puff inhalation Q4H MDD S PRN (Reason: Sob &/Or Wheezing) albuterol sulfate 6.7 GM HFA aerosol inhaler 6.7 gm IH Q2H PRN PRN (Reason: Wheezing) Qty: 1 1RF losartan 50 mg tablet 50 mg PO DAILY folic acid 1 mg tablet 1 mg PO DAILY pregabalin 100 mg capsule 100 mg PO TID famotidine 20 mg Tablet 20 mg PO BID Qty: 60 0RF olanzapine 2.5 mg Tablet 5 mg PO QHS Qty: 30 0RF ondansetron HCl 8 mg Tablet 8 mg PO Q8H PRN PRN (Reason: Nausea) Qty: 42 0RF albuterol sulfate [Ventolin HFA] 90 mcg/actuation HFA aerosol inhaler 1 - 2 puff inhalation Q4H PRN PRN (Reason: Wheezing) Qty: 1 0RF hydroxyzine HCl 50 mg tablet 50 mg PO Q8H PRN PRN (Reason: anxiety) omeprazole 40 mg capsule,delayed release(DR/EC) 40 mg PO DAILY metoprolol succinate 25 mg tablet extended release 24 hr 25 mg PO BID permethrin [Elimite] 5 % cream 1 applic topical Q14D Qty: 60 0RF Rx Instructions: Apply topically from head to feet. Leave on for 8 to 12 hours then wash off. If symptoms persist after 14 days repeat the application. Primary Care Provider: Anthony Booth Referrals: Anthony Booth MD [Primary Care Provider] - As Needed [facility] [Non-Staff] - As soon as possible Print Language: Bahamian Disposition Disposition: Home, Self Care What to do if you have Problems For any increased pain, shortness of breath, bleeding, nausea or vomiting, chestpain, or any unexpected problems, contact your Primary Care Provider. Call [facility] ([phone]) or report to the closest Emergency Room. Call 911 if necessary. 06/02/24 1513 <Electronically signed by Filippo Fuentes MD> Cosigner Signature (if applicable): CC: Dr. Anthony Booth MD ~ Signed [facility] Work Phone: [phone] Discharge summary [facility] Medical Records Department [address] [place] [id number] Emergency Department Summary 04/25/24 MR#: [id number] Acct: [id number] Name: DHAVAL MOON Rep #:[id number] : 2000 23 From: Filippo Fuentes MD PCP: Dr. Anthony Booth MD Status:REG ER Location: ED HPI History of Present Illness Chief Complaint: Anxiety Detail of Chief Complaint: Patient feels anxious after doing a bad batch of methamphetamine . Informant: patient Onset/Context/Timing Onset: Hours Context: Sudden Onset Timing: Continuous Quality: Anxious, palpitations, dyspnea Location: Generalized Current Severity: Moderate Maximum Severity: Severe Worsened by: The more she thinks about it Relieved by: Nothing Associated Symptoms Associated Symptoms: No other symptoms Narrative Narrative: Patient is a 23-year-old woman. She states she smoked methamphetamine 1 to 2 hours prior to presentation. She feels anxious, palpitations, nausea, sweaty and believes she got a bad batch of methamphetamine . She states this happened a while ago. Denies headache, visual, ocular auditory symptoms. Denies ringing ears decreased hearing. Denies trouble speech or swallowing. Does report [place]. She denies chest pressure or tightness. She denies abdominal pain, vomit or diarrhea. She does report mild nausea. She denies dysuria, frequency, urgency or hematuria. She denies any skin lesions. Prior similar symptoms: Yes Recent Illness/Hospitalization: No PFSH PFSH Medical History Hypertension Substance abuse History of bipolar disorder History of schizophrenia Schizo affective schizophrenia Bipolar 1 disorder Alcohol abuse PTSD (post-traumatic stress disorder) Depression Anxiety Home Medications ?Medication ?Instructions ?Recorded ?Last Taken ?Type albuterol sulfate 90 mcg/actuation 1 - 2 puff inhalati on Q4H PRN Sob 12/04/17 Unknown History aerosol inhaler (Ventolin HFA) &/Or Wheezing albuterol sulfate 90 mcg/actuation 6.7 gm IH Q2H PRN P RN Wheezing ##1 07/01/18 Unknown Rx aerosol inhaler folic acid 1 mg tablet 1 mg PO DAILY 07/22/23 Unkno wn History losartan 50 mg tablet 50 mg PO DAILY 07/22/23 Unkn own History pregabalin 100 mg capsule 100 mg PO TID 07/22/23 Unkno wn History albuterol sulfate 90 mcg/actuation 1 - 2 puff inhalati on Q4H PRN PRN 11/05/23 Unknown Rx aerosol inhaler (Ventolin HFA) Wheezing ##1 famotidine 20 mg tablet 20 mg PO BID #60 tabs Unknown Rx olanzapine 2.5 mg tablet 5 mg (2 x 2.5 mg) PO QHS #30 tabs 11/07/23 Unknown Rx ondansetron HCl 8 mg tablet 8 mg PO Q8H PRN PRN Nausea #42 tabs 11/07/23 Unknown Rx hydroxyzine HCl 50 mg tablet 50 mg PO Q8H PRN PRN anxi ety 11/27/23 Unknown History metoprolol succinate 25 mg 25 mg PO BID 11/27/23 Unkno wn History tablet,extended release 24 hr omeprazole 40 mg capsule,delayed 40 mg PO DAILY Unknown History release Allergy/AdvReac Type Severity Reaction Status Date / Time Penicillins (PCN) Allergy Hives Verified 04/25/24 14:15 pine nut Allergy Hives Verified 04/25/24 14:15 Family History no significant family his Social History Smoking Status: Current some day smoker tobacco type: cigarettes and e-cigarettes substance use type: methamphetamine ROS ROS ED Constitutional Constitutional ED: Reports sweats; Denies chills, fever(s), subjective or weightloss Eyes Eyes: Denies blurry vision or change in vision ENT ENT ED: Denies ear pain, rhinorrhea or sore throat Cardiovascular Cardiovascular: Reports palpitations and racing heartbeat; Denies chest pain or orthopnea Respiratory/Chest Respiratory/Chest: Reports dyspnea; Denies cough, dyspnea on exertion or orthopnea Gastrointestinal Gastrointestinal: Reports nausea; Denies abdominal pain, constipation, diarrhea or vomiting Musculoskeletal Musculoskeletal: Denies arthralgias, back pain, myalgias or neck pain Integumentary Denies rash Neurologic Neurologic: Reports paresthesias; Denies headache(s) Psychiatric Psychiatric: Reports anxiety Endocrine Endocrinology: Denies cold intolerance or heat intolerance Hematologic/Lymphatic Hematologic/Lymphatic: Reports systems reviewed and no addt'l complaints, exceptas documented EXAM Physical Exam Const Vital Signs: 04/25/24 14:12 Temperature 97.6 F L Temperature Source Temporal Pulse Rate 134 H Respiratory Rate 22 H Blood Pressure 169/94 H Blood Pressure Mean 119 Pulse Ox 100 Oxygen Delivery Method Room Air Positive well nourished and well developed Constitutional Narrative: Patient appears anxious. She is jittery. She is slightly diaphoretic. General Appearance ED: well developed and diaphoretic; Negative for cyanotic, NAD or pallor HEENT Reports dry mucous membranes HEENT Narrative: Head is atraumatic normocephalic. Ears normal. Nares patent. Posterior pharynx is normal. Mouth ED: Yes dry mucous membranes Mouth: dry mucous membranes Eyes PERRL and EOMs intact bilaterally General Eye ED: Negative for pale conjunctiva or scleral icterus Neck no lymphadenopathy, supple and no JVD Chest Wall inspection of chest normal and palpation of chest normal Resp normal respiratory effort and clear to auscultation bilaterally Cardio regular rhythm, S1 normal heart sound, S2 normal heart sound and no murmurs Rate: tachycardic GI normal to inspection, nondistended, normoactive bowel sounds, non-tender, non- distended and no masses; Negative for hepatosplenomegaly Extremity normal to inspection General Extremety ED: Negative for edema or tenderness General Extremity: Negative for edema Neuro oriented x3, CN's II-XII intact bilaterally and no sensory deficits noted Sensorium / Orientation: alert Motor Exam: strength 5/5 throughout Psych mental status grossly normal Attitude: agitated Mood & Affect: anxious Skin no rashes or lesions noted, no wounds and skin turgor normal General Skin Exam: elasticity normal; Negative for jaundice or pallor MDM MDM MDM Narrative Medical decision making narrative: Patient's constellation consistent with the methamphetamine use. Patient was placed on a monitor toassess for any active the PE. She was treated with IV Ativan since we do not have IV Valium. Will observe and monitor pressure, heartrate. Treatment and Re-Evaluation :: Patient was reassessed at 1528. Patient now complaining of heartburn/reflux. Will treat with GI cocktail. She states her anxiety palpitations have improved. Discharge Plan Triage Chief Complaint: Anxiety ED Provider: Filippo Fuentes Dx/Rx/DC Orders Clinical Impression: Methamphetamine abuse, Elevated blood-pressure reading without diagnosis of hypertension, Sinus tachycardia seen on alarm security or surveillance monitor, Anxiety reaction, Heartburn Instructions: Meth Abuse Addiction, ED Hypertension, To Be Confirmed Prescriptions: No Action albuterol sulfate [Ventolin HFA] 90 MCG HFA aerosol inhaler 1 - 2 puff inhalation Q4H MDD S PRN (Reason: Sob &/Or Wheezing) albuterol sulfate 6.7 GM HFA aerosol inhaler 6.7 gm IH Q2H PRN PRN (Reason: Wheezing) Qty: 1 1RF losartan 50 mg tablet 50 mg PO DAILY folic acid 1 mg tablet 1 mg PO DAILY pregabalin 100 mg capsule 100 mg PO TID famotidine 20 mg Tablet 20 mg PO BID Qty: 60 0RF olanzapine 2.5 mg Tablet 5 mg PO QHS Qty: 30 0RF ondansetron HCl 8 mg Tablet 8 mg PO Q8H PRN PRN (Reason: Nausea) Qty: 42 0RF albuterol sulfate [Ventolin HFA] 90 mcg/actuation HFA aerosol inhaler 1 - 2 puff inhalation Q4H PRN PRN (Reason: Wheezing) Qty: 1 0RF hydroxyzine HCl 50 mg tablet 50 mg PO Q8H PRN PRN (Reason: anxiety) omeprazole 40 mg capsule,delayed release(DR/EC) 40 mg PO DAILY metoprolol succinate 25 mg tablet extended release 24 hr 25 mg PO BID Primary Care Provider: Anthony Booth Referrals: Anthony Booth MD [Primary Care Provider] - 1-2 Weeks Activity Restrictions/Additional Instructions: Your blood pressure is elevated. You should have this reassessed in 1 to 2 weeks by your doctor, Dr. Anthony Booth Print Language: Bahamian Disposition Disposition: Home, Self Care What to do if you have Problems For any increased pain, shortness of breath, bleeding, nausea or vomiting, chestpain, or any unexpected problems, contact your Primary Care Provider. Call [facility] ([phone]) or report tothe closest Emergency Room. Call 911 if necessary. 04/25/24 1532 Cosigner Signature (if applicable): CC: Dr. Anthony Booth MD ~ Signed [facility]03-13-2025 Discharge summary Author Filippo Fuentes [facility] Note Date/Time April 25, 2024 3:3 2pm [facility] Medical Records Department [address] [place] [address] Emergency Department Summary 04/25/24 MR#: [id number] Acct: [id number] Name: DHAVAL MOON Rep #:[id number] : 2000 23 From: Filippo Fuentes MD PCP: Dr. Anthony Booth MD Status:REG ER Location: ED HPI History of Present Illness Chief Complaint: Anxiety Detail of Chief Complaint: Patient feels anxious after doing a bad batch of methamphetamine . Informant: patient Onset/Context/Timing Onset: Hours Context: Sudden Onset Timing: Continuous Quality: Anxious, palpitations, dyspnea Location: Generalized Current Severity: Moderate Maximum Severity: Severe Worsened by: The more she thinks about it Relieved by: Nothing Associated Symptoms Associated Symptoms: No other symptoms Narrative Narrative: Patient is a 23-year-old woman. She states she smoked methamphetamine 1 to 2 hours prior to presentation. She feels anxious, palpitations, nausea, sweaty and believes she got a bad batch of methamphetamine . She states this happened a while ago. Denies headache, visual, ocular auditory symptoms. Denies ringing ears decreased hearing. Denies trouble speech or swallowing. Does report [place]. She denies chest pressure or tightness. She denies abdominal pain, vomit or diarrhea. She does report mild nausea. She denies dysuria, frequency, urgency or hematuria. She denies any skin lesions. Prior similar symptoms: Yes Recent Illness/Hospitalization: No PFSH PFS Medical History Hypertension Substance abuse History of bipolar disorder History of schizophrenia Schizo affective schizophrenia Bipolar 1 disorder Alcohol abuse PTSD (post-traumatic stress disorder) Depression Anxiety Home Medications ?Medication ?Instructions ?Recorded ?Last Taken ?Type albuterol sulfate 90 mcg/actuation 1 - 2 puff inhalati on Q4H PRN Sob 12/04/17 Unknown History aerosol inhaler (Ventolin HFA) &/Or Wheezing albuterol sulfate 90 mcg/actuation 6.7 gm IH Q2H PRN P RN Wheezing ##1 07/01/18 Unknown Rx aerosol inhaler folic acid 1 mg tablet 1 mg PO DAILY 07/22/23 Unkno wn History losartan 50 mg tablet 50 mg PO DAILY 07/22/23 Unkn own History pregabalin 100 mg capsule 100 mg PO TID 07/22/23 Unkno wn History albuterol sulfate 90 mcg/actuation 1 - 2 puff inhalati on Q4H PRN PRN 11/05/23 Unknown Rx aerosol inhaler (Ventolin HFA) Wheezing ##1 famotidine 20 mg tablet 20 mg PO BID #60 tabs Unknown Rx olanzapine 2.5 mg tablet 5 mg (2 x 2.5 mg) PO QHS #30 tabs 11/07/23 Unknown Rx ondansetron HCl 8 mg tablet 8 mg PO Q8H PRN PRN Nausea #42 tabs 11/07/23 Unknown Rx hydroxyzine HCl 50 mg tablet 50 mg PO Q8H PRN PRN anxi ety 11/27/23 Unknown History metoprolol succinate 25 mg 25 mg PO BID 11/27/23 Unkno wn History tablet,extended release 24 hr omeprazole 40 mg capsule,delayed 40 mg PO DAILY Unknown History release Allergy/AdvReac Type Severity Reaction Status Date / Time Penicillins (PCN) Allergy Hives Verified 04/25/24 14:15 pine nut Allergy Hives Verified 04/25/24 14:15 Family History no significant family his Social History Smoking Status: Current some day smoker tobacco type: cigarettes and e- cigarettes substance use type: methamphetamine ROS ROS ED Constitutional Constitutional ED: Reports sweats; Denies chills, fever(s), subjective or weightloss Eyes Eyes: Denies blurry vision or change in vision ENT ENT ED: Denies ear pain, rhinorrhea or sore throat Cardiovascular Cardiovascular: Reports palpitations and racing heartbeat; Denies chest pain or orthopnea Respiratory/Chest Respiratory/Chest: Reports dyspnea; Denies cough, dyspnea on exertion or orthopnea Gastrointestinal Gastrointestinal: Reports nausea; Denies abdominal pain, constipation, diarrhea or vomiting Musculoskeletal Musculoskeletal: Denies arthralgias, back pain, myalgias or neck pain Integumentary Denies rash Neurologic Neurologic: Reports paresthesias; Denies headache(s) Psychiatric Psychiatric: Reports anxiety Endocrine Endocrinology: Denies cold intolerance or heat intolerance Hematologic/Lymphatic Hematologic/Lymphatic: Reports systems reviewed and no addt'l complaints, exceptas documented EXAM Physical Exam Const Vital Signs: 04/25/24 14:12 Temperature 97.6 F L Temperature Source Temporal Pulse Rate 134 H Respiratory Rate 22 H Blood Pressure 169/94 H Blood Pressure Mean 119 Pulse Ox 100 Oxygen Delivery Method Room Air Positive well nourished and well developed Constitutional Narrative: Patient appears anxious. She is jittery. She is slightly diaphoretic. General Appearance ED: well developed and diaphoretic; Negative for cyanotic, NAD or pallor HEENT Reports dry mucous membranes HEENT Narrative: Head is atraumatic normocephalic. Ears normal. Nares patent. Posterior pharynx is normal. Mouth ED: Yes dry mucous membranes Mouth: dry mucous membranes Eyes PERRL and EOMs intact bilaterally General Eye ED: Negative for pale conjunctiva or scleral icterus Neck no lymphadenopathy, supple and no JVD Chest Wall inspection of chest normal and palpation of chest normal Resp normal respiratory effort and clear to auscultation bilaterally Cardio regular rhythm, S1 normal heart sound, S2 normal heart sound and no murmurs Rate: tachycardic GI normal to inspection, nondistended, normoactive bowel sounds, non-tender, non-distended and no masses; Negative for hepatosplenomegaly Extremity normal to inspection General Extremety ED: Negative for edema or tenderness General Extremity: Negative for edema Neuro oriented x3, CN's II-XII intact bilaterally and no sensory deficits noted Sensorium / Orientation: alert Motor Exam: strength 5/5 throughout Psych mental status grossly normal Attitude: agitated Mood & Affect: anxious Skin no rashes or lesions noted, no wounds and skin turgor normal General Skin Exam: elasticity normal; Negative for jaundice or pallor MDM MDM MDM Narrative Medical decision making narrative: Patient's constellation consistent with the methamphetamine use. Patient was placed on a monitor to assess for any active the PE. She was treated with IV Ativan since we do not have IV Valium. Will observe and monitor pressure, heartrate. Treatment and Re-Evaluation :: Patient was reassessed at 1528. Patient now complaining of heartburn/reflux. Will treat with GI cocktail. She states her anxiety palpitations have improved. Discharge Plan Triage Chief Complaint: Anxiety ED Provider: Filippo Fuentes Dx/Rx/DC Orders Clinical Impression: Methamphetamine abuse, Elevated blood-pressure reading without diagnosis of hypertension, Sinus tachycardia seen on alarm security or surveillance monitor, Anxiety reaction, Heartburn Instructions: Meth Abuse Addiction, ED Hypertension, To Be Confirmed Prescriptions: No Action albuterol sulfate [Ventolin HFA] 90 MCG HFA aerosol inhaler 1 - 2 puff inhalation Q4H MDD S PRN (Reason: Sob &/Or Wheezing) albuterol sulfate 6.7 GM HFA aerosol inhaler 6.7 gm IH Q2H PRN PRN (Reason: Wheezing) Qty: 1 1RF losartan 50 mg tablet 50 mg PO DAILY folic acid 1 mg tablet 1 mg PO DAILY pregabalin 100 mg capsule 100 mg PO TID famotidine 20 mg Tablet 20 mg PO BID Qty: 60 0RF olanzapine 2.5 mg Tablet 5 mg PO QHS Qty: 30 0RF ondansetron HCl 8 mg Tablet 8 mg PO Q8H PRN PRN (Reason: Nausea) Qty: 42 0RF albuterol sulfate [Ventolin HFA] 90 mcg/actuation HFA aerosol inhaler 1 - 2 puff inhalation Q4H PRN PRN (Reason: Wheezing) Qty: 1 0RF hydroxyzine HCl 50 mg tablet 50 mg PO Q8H PRN PRN (Reason: anxiety) omeprazole 40 mg capsule,delayed release(DR/EC) 40 mg PO DAILY metoprolol succinate 25 mg tablet extended release 24 hr 25 mg PO BID Primary Care Provider: Anthony Booth Referrals: Anthony Booth MD [Primary Care Provider] - 1-2 Weeks Activity Restrictions/Additional Instructions: Your blood pressure is elevated. You should have this reassessed in 1 to 2 weeks by your doctor, Dr. Anthony Booth Print Language: Bahamian Disposition Disposition: Home, Self Care What to do if you have Problems For any increased pain, shortness of breath, bleeding, nausea or vomiting, chestpain, or any unexpected problems, contact your Primary Care Provider. Call [facility] ([phone]) or report to the closest Emergency Room. Call 911 if necessary. 04/25/24 1532 <Electronically signed by Filippo Fuentes MD> Cosigner Signature (if applicable): CC: Dr. Anthony Booth MD ~ Signed [facility] Work Phone: [phone] Telephone encounter Note* Telephone Encounter - Anthony Booth MD - 02/27/2024 5:58 AM EST All medications were refused, this patient has to have an appointment before I will prescribe any medications, she has been off of her Lyrica since January and we have never prescribed Zyprexa. She has not been seen since June and has been scheduled multiple times and has either no showed or canceled [id number] Miscellaneous Notes* Telephone Encounter - Anthony Booth MD - 02/27/2024 5:58 AM EST All medications were refused, this patient has to have an appointment before I will prescribe any medications, she has been off of her Lyrica since January and we have never prescribed Zyprexa. She has not been seen since June and has been scheduled multiple times and has either no showed or canceled * Telephone Encounter - BRENDA Ragland CNP - 02/26/2024 3:51 PM EST I will let Dr. Booth review and see if he would be okay with prescribing the Zyprexa. Lyrica has also not been filled since November and it was only a 10 day supply. * Telephone Encounter - Mago Hammond MA - 02/26/2024 2:58 PM EST [facility] 06/28/[address] Booth on 06/28/23, do you want to leave this for him tomorrow since we have never prescribed the Olazapine? * Telephone Encounter - Siri Monson - 02/26/2024 2:41 PM EST Ordering provider: Leobardo Date of last office visit: 06/27/24 Date of next office visit: none Updated/Validated preferred pharmacy: Yes Patient instructed to contact the pharmacy prior to picking up the medication: Yes (1) Medication name: famotidine (Pepcid) 20 mg in sodium chloride (PF) 0.9 % 10 mL injection Medication dosage: 20 mg (Miligrams Monthly quantity needed: 30 How many day supply requestin days Medication route: oral (PO) Medication administration time(s): daily If taking medication PRN, reason for taking medication: N/A If this is a controlled substance do you receive this or any other controlled medication from any other doctor or facility: N/A Date of last refill (see medication tab): 10/26/22 (2) Medication name: pregabalin (Lyrica) 100 MG capsule [[id number]] Medication dosage: 100 mg (Miligrams Monthly quantity [...] Date of last refill (see medication tab): 12/13/23 Patient states an she also need a refill of medication Olanzapine 20 mg. Patient is I aware that doctor never prescribed she received it through patient was advised you may not fill because you didn't prescribe. Please send all refills to pharmacy [id number] - [facility] [place], [place] - [address] [facility] documented in this [facility] - [id number] Telephone encounter Note* Telephone Encounter - BRENDA Ragland CNP - 02/26/2024 3:51 PM EST I will let Dr. Booth review and see if he would be okay with prescribing the Zyprexa. Lyrica has also not been filled since November and it was only a 10 day supply. [facility] [id number] Telephone encounter Note* Telephone Encounter - Mago Hammond MA - 02/26/2024 2:58 PM EST CSA 06/28/[address] Booth on 06/28/23, do you want to leave this for him tomorrow since we have never prescribed the Olazapine? [facility] Mashed [id number] Telephone encounter Note* Telephone Encounter - Siri Monson - 02/26/2024 2:41 PM EST Ordering provider: Leobardo Date of last office visit: 06/27/24 Date of next office visit: none Updated/Validated preferred pharmacy: Yes Patient instructed to contact the pharmacy prior to picking up the medication: Yes (1) Medication name: famotidine (Pepcid) 20 mg in sodium chloride (PF) 0.9 % 10 mL injection Medication dosage: 20 mg (Miligrams Monthly quantity needed: 30 How many day supply requestin days Medication route: oral (PO) Medication administration time(s): daily If taking medication PRN, reason for taking medication: N/A If this is a controlled substance do you receive this or any other controlled medication from any other doctor or facility: N/A Date of last refill (see medication tab): 10/26/22 (2) Medication name: pregabalin (Lyrica) 100 MG capsule [[id number]] Medication dosage: 100 mg (Miligrams Monthly quantity [...] Date of last refill (see medication tab): 12/13/23 Patient states an she also need a refill of medication Olanzapine 20 mg. Patient is I aware that doctor never prescribed she received it through [facility] patient was advised you may not fill because you didn't prescribe. Please send all refills to pharmacy [id number] - [place], [place] - [address] [facility] Mashed [id number] [facility]11-25-2024 Evaluation note * Diagnosis Onset Date Resolution Status Admit Date Methamphetamine abuse acute Nov ember 2023 7:13pm Opiate withdrawal resolved Novembe r 2023 7:13pm [facility] Work Phone: 1(334) 249-623511-01-2024 Telephone encounter Note* Telephone Encounter - Luis Murillo - 12/15/2023 12:13 PM EDT Referrals closed [facility] [id number] Miscellaneous Notes* Telephone Encounter - Luis Murillo - 12/15/2023 12:13 PM EDT Referrals closed * Telephone Encounter - Anthony Booth MD - 12/15/2023 12:01 PM EDT Yes, okay to close * Telephone Encounter - Luis Murillo - 12/15/2023 10:53 AM EDT Pt given referral for [facility] on 03/21/23 and referral fo [facility] on 04/25/23 No response from pt to schedule appt Documentation in referrals. Okay to close referrals? * Telephone Encounter - Cheryl Casillas MA - 11/28/2023 8:45 AM EDT No patient response. Closed * Telephone Encounter - Cheryl Casillas MA - 11/03/2023 12:39 PM EDT My Chart message documented in this encounterSSelect Medical Special[facility] Hospital - ColumbusHjtbzm81-22-5209 Telephone encounter Note* Telephone Encounter - Anthony Booth MD - 12/15/2023 12:01 PM EDT Yes, okay to close [facility] [id number] NotePt given referral for [facility] on 03/21/23 and referral fo [facility] on 04/25/23 No response from pt to schedule appt Documentation in referrals. Okay to close referrals?[facility] 12-15-2023 Telephone encounter Note* Telephone Encounter - Luis Murillo - 12/15/2023 10:53 AM EDT Pt given referral for [facility] on 03/21/23 and referral fo [facility] on 04/25/23 No response from pt to schedule appt Documentation in referrals. Okay to close referrals? [facility] OhioVwnewp84-12-8715 Telephone encounter Note* Telephone Encounter - Cheryl Casillas MA - 11/28/2023 8:45 AM EDT No patient response. Closed [facility] [id number] [facility]09-20-2024 Telephone encounter Note* Telephone Encounter - Cheryl Casillas MA - 11/03/2023 12:39 PM EDT My Chart message [facility] [id number] Emergency department Note* Adelita Perry RN - 09/02/2023 10:33 AM EDT Discharge instructions, follow up care, and pain management discussed with patient. All questions answered, there are no further questions at this time. Patient provided with HOPE bag including care home information and street cards. Patient ambulated off the unit independently to the lobby to await ride. Adelita Perry RN 09/02/23 1034 [facility] OhioSmhwmd30-07-0960 Emergency department Note* Adelita Perry RN - 09/02/2023 10:33 AM EDT Discharge instructions, follow up care, and pain management discussed with patient. All questions answered, there are no further questions at this time. Patient provided with HOPE bag including care home information and street cards. Patient ambulated off the [facility] independently to the [facility] to [facility]. Adelita Perry RN 09/02/23 1034 * Adelita Perry RN - 09/02/2023 9:01 AM EDT RN contacted [facility], cancelled referral due to patient being discharged. Adelita Perry RN 09/02/23 0901 * Adelita Perry RN - 09/02/2023 8:59 AM EDT Patient to be discharged, patient provided with her cell phone to get a ride home. Adelita Perry RN 09/02/23 0859 * Adelita Perry RN - 09/02/2023 8:36 AM EDT Patient awake and alert. Patient provided with [...] Patient states that she came in last nightbecause she was anxious and there was a man that made her feel uncomfortable when she was walking around. Patient asked to speak with physician regarding plan of care because she does not understandwhy she is being admitted. RN spoke to , per physician, patient is able to be discharged if she has sobered up, ifshe has a ride, and if she is not suicidal or homicidal. RN reviewed the above discussion with patient with including direct quotes from the patient. Patient currently on the phone with her mother, then RN will update her on plan of care. Adelita Perry RN 09/02/23 0847 * Billie Spears DO - 09/02/2023 1:54 AM EDT EMERGENCY DEPARTMENT ENCOUNTER Pt Name: Dhaval Moon [...] she is being followed by people from [place] and that she feels not safe here [...] Resource Strain: Medium Risk (05/22/2020) [facility] from [facility] Overall Financial Resource Strain (CARDIA) Difficulty of Paying Living Expenses: Somewhat hard Food Insecurity: Food Insecurity Present (06/09/2023) [facility] from [facility], [facility] Hunger Vital Sign Worried About Running Out of Food in the Last Year: Sometimes true Ran Out of Food in the Last Year: Sometimes true Transportation Needs: No Transportation Needs (06/09/2023) Received from [facility] PR[facility] - Transportation Lack of Transportation (Medical): No Lack of Transportation (Non-Medical): No Physical Activity: Inactive (01/23/2019) Re[facility] from [facility] Exercise Vital Sign Days of Exercise per Week: 0 days Minutes of Exercise per Session: 0 min Housing Stability: Unknown (06/09/2023) Received from [facility] Housing Stability Vital Sign Unable to Pay for Housing in the Last Year: No In the last 12 months, was there a time when you did not have a steady place to sleep or slept in ashelter (including now)?: No SCREENINGS PHYSICAL EXAM ED [...] for medical treatment only. Analysis performed using non- forensic procedures. CK - Normal CK 63 DRUGS [...] If confirmation is needed, request confirmation under separateorder. HCG QUANTITATIVE BLOOD HCG QUANTITATIVE <2 Narrative: Values in should double every 2 to 3 days for the first 6 weeks. Elevated concentrations of human chorionic gonadotropin (hCG) measured in the first trimester of are observed in normal , but may serve as an indication of chorionic carcinoma, hydatiform mole, or multiplepregnancy. Decreasing hCG concentrations indicate threatened or missed , recent terminationof , ectopic , gestosis or intrauterine . Michell- and postmenopausal females may have detectable hCG concentrations (< or = to 14 mIU/mL) due to pituitary production of hCG. Serum follicle-stimulating hormone measurement may aid in ruling-out in this population. Cutoffs of greater than 20 to 45 mIU/mL have been suggested and are method dependent. False-elevations(called phantom human chorionic gonadotropin: hCG) may occur with patients who have human antianimal or heterophilic antibodies. Some specimens may not dilute linearly due to abnormal forms of hCG. Elevated hCG concentrations not associated with are found in patients with other diseases such as tumors of the germ cells, ovaries, bladder, pancreas, stomach, lungs, and liver. This test isnot intended to detect or monitor tumors or gestational trophoblastic disease. COMPLETE URINALYSIS All other labs were within normal range or not returned as of this dictation. EMERGENCY DEPARTMENT COURSE and DIFFERENTIAL DIAGNOSIS/MDM: Vitals: Vitals: 09/02/23 0207 BP: (!) 133/98 Pulse: (!) 113 Resp: 20 Temp: 36.9 C (98.5 F) SpO2: 98% ED Course as of 09/02/23 0543 Sat Sep 02, 2023 0218 22-year-old female presents emergency department today with paranoia that she is being followed by people from [place] and that she feels not safe here [...] showing a mild hypokalemia of 3 as wellas slightly elevated bilirubin of 1.7. Given oral replacement for potassium. [BM] 0452 test negative. [BM] 0525 Urine drug screen positive for amphetamines. [BM] 0542 Patient is medically cleared for admission to [facility]. [BM] ED Course User Index [BM] Billie [...] are any questions or concerns please feel freeto contact the dictating provider for clarification.) Billie Spears DO (electronically signed) Emergency Medicine Provider Billie Spears DO 09/02/23 0543 * Glenn Guerrero MD - 09/02/2023 1:54 AM EDT Emergency Department Encounter Location: [facility] ED Patient: Dhaval Moon : 2000 Date of evaluation: 09/02/2023 ED Provider: Glenn Guerrero MD Time received sign-out: 07 Dhaval Moon was checked out to me [...] 0510) I Glenn Guerrero MD am the billing clinician of record. Final Impression 1. Paranoia (psychosis) (HCC) 2. Hypokalemia 3. Methamphetamine-induced psychotic disorder (HCC) DISPOSITION (Please note that portions of this note may have been completed with a voice recognition program. Efforts were made to edit the dictations but occasionally words are mis-transcribed.) Glenn Guerrero MD [employer] Glenn Guerrero MD 09/02/23 0903 * Elinor Morin RN - 09/02/2023 1:54 AM EDT Pt presents to the ED w c/o anxiety. Per pt, pt has been having anxiety all day. Pt denies suicidal thoughts. Pt feels safe at home * Elinor Morin RN - 09/02/2023 1:54 AM EDT Pt initially uncooperative initially. Pt refusing to change in a gown or have labs drawn. Pt finally will allow this nurse to draw labs. Pts personal belongings removed from pt and pt put on a gown. Pt wanded by officer robert. Pt refuses anxiety meds ordered * Elinor Morin RN - 09/02/2023 1:54 AM EDT Referral made to [facility] facility for transfer, spoke rosie Gao. Facility will callback documented in this [facility]07-20-2024 Hospital Discharge instructions* Discharge Instructions* Glenn Guerrero MD - 09/02/2023 9:02 AM EDT Images from the original note were not included. You have been evaluated in the Emergency Department today for a behavioral health problem. This evaluation did not result in a recommendation for hospitalization, but your symptoms may change release manager time, which is why it is important to follow-up. I recommend you contact the following mental health provider(s) to schedule an appointment as soon as possible: [] [facility]; [facility] (Psychiatry, Counseling,Addiction Services); [address], [address], [place] [address]; [] [facility]; (Psychiatry, Counseling, Addiction Services); [address], [address], [facility] [address]; [] [facility]; (Psychiatry, Counseling); [address] [place] [address]; [] [facility]; (Psychiatry, Counseling); [address], [address], [place] [address]; [] [facility]; (Psychiatry, Counseling); [address] [place] [address]; [] [facility]; (Psychiatry, Counseling); [address], [place] [address]; [] [facility]; (Psychiatry, Counseling); [address], [address], [place] [address]; [] [facility] (Counseling, Group); [address] [place] [address]; [] [facility] (Psychiatry, Counseling, Case Management); [address], [address], [place] [address]; ; for initial assessments you may call or walk-in on Mondays and Tuesdays at 8:00 AM [] [facility] (Psychiatry, Counseling, Case Management); [address] [place] [address]; ; for initial assessments you may call or walk-in on at noon [] [facility] (Psychiatry, Counseling, Case Management); [address] [place] [address]; [] [facility] (Counseling, Group - has evening hours); [address] [place] [address]; [x] [facility] (Psychiatry, Counseling, Case Management, Addiction Services); [address] [place] [address]; [x] [facility] (Psychiatry, Counseling, Case Management, Addiction Services); [address], [place] [address]; [] [facility] (Psychiatry, Counseling, Case Management, Addiction Services); [address], [address], [place] [address]; [] [facility] (Counseling); [address] [place] [address]; [] [facility] (Psychiatry, Counseling, Case Management - has evening and weekend hours); [address] [place] [address]; If you or someone you know is struggling or in crisis, help is available. Call or text 588 or chat [employer]. -OR- Call the [facility] Crisis Hotline at 529-012-9194 -OR- Visit [facility]'s Psychiatric Emergency Services, in person, at [address] [place] [address]; You should return to the Emergency Department or call 911 immediately if your symptoms worsen, new symptoms develop, or if you can no longer keep yourself or others safe. * Attachments The following attachments cannot be sent through Care Everywhere. * Drug Abuse and Drug Addiction Discharge Instructions (Bahamian) * Hypokalemia Discharge Instructions (Bahamian) documented in this [facility]07-20-2024 Emergency department Note* Adelita Perry RN - 09/02/2023 9:01 AM EDT RN contacted [facility], cancelled referral due to patient being discharged. Adelita Perry RN 09/02/23 09 [facility] [id number] NoteRN contacted [facility], cancelled referral due to patient being discharged. Adelita Perry RN 09/02/23 0901[facility]07-20-2024 Emergency department Note* Adelita Perry RN - 09/02/2023 8:59 AM EDT Patient to be discharged, patient provided with her cell phone to get a ride home. Adelita Perry RN 09/02/23 0859 [facility] [id number] Emergency department Note* Adelita Perry RN - 09/02/2023 8:36 AM EDT Patient awake and alert. Patient provided with [...] Patient states that she came in last nightbecause she was anxious and there was a man that made her feel uncomfortable when she was walking around. Patient asked to speak with physician regarding plan of care because she does not understandwhy she is being admitted. RN spoke to , per physician, patient is able to be discharged if she has sobered up, ifshe has a ride, and if she is not suicidal or homicidal. RN reviewed the above discussion with patient with including direct quotes from the patient. Patient currently on the phone with her mother, then RN will update her on plan of care. Adelita Perry RN 09/02/23 0847 [facility] [id number] NoteNOTE: This result is for medical treatment only. Analysis performed using non-forensic procedures. [facility] [id number] Emergency department Triage note* Elinor Morin RN - 09/02/2023 1:54 AM EDT Pt presents to the ED w c/o anxiety. Per pt, pt has been having anxiety all day. Pt denies suicidal thoughts. Pt feels safe at home [id number] Emergency department Triage note* Elinor Morin RN - 09/02/2023 1:54 AM EDT Pt initially uncooperative initially. Pt refusing to change in a gown or have labs drawn. Pt finally will allow this nurse to draw labs. Pts personal belongings removed from pt and pt put on a gown. Pt wanded by officer robert. Pt refuses anxiety meds ordered [id number] Emergency department Triage note* Elinor Morin RN - 09/02/2023 1:54 AM EDT Referral made to [facility] for transfer, spoke rosie Gao. Facility will callback [facility] OhioIsetns90-97-1018 NoteReferral made to [facility] for transfer, spoke rosie Gao. Facility will call [facility]07-20-2024 Physician Emergency department Note* Billie Spears DO - 09/02/2023 1:54 AM EDT EMERGENCY DEPARTMENT ENCOUNTER Pt Name: Dhaval Moon [...] she is being followed by people from [place] and that she feels not safe here [...] Resource Strain: Medium Risk (05/22/2020) Received from [facility] Overall Financial Resource Strain (CARDIA) Difficulty of Paying Living Expenses: Somewhat hard Food Insecurity: Food Insecurity Present (06/09/2023) Received from [facility] Hunger Vital Sign Worried About Running Out of Food in the Last Year: Sometimes true Ran Out of Food in the Last Year: Sometimes true Transportation Needs: No Transportation Needs (06/09/2023) Received from [facility] PRAPARE - Transportation Lack of Transportation (Medical): No Lack of Transportation (Non-Medical): No Physical Activity: Inactive (01/23/2019) Received from [facility] Exercise Vital Sign Days of Exercise per Week: 0 days Minutes of Exercise per Session: 0 min Housing Stability: Unknown (06/09/2023) Received from [facility] Housing Stability Vital Sign Unable to Pay for Housing in the Last Year: No In the last 12 months, was there a time when you did not have a steady place to sleep or slept in [facility] (including now)?: No SCREENINGS PHYSICAL EXAM ED [...] for medical treatment only. Analysis performed using non- forensic procedures. CK - Normal CK 63 DRUGS [...] If confirmation is needed, request confirmation under separateorder. HCG QUANTITATIVE BLOOD HCG QUANTITATIVE <2 Narrative: Values in should double every 2 to 3 days for the first 6 weeks. Elevated concentrations of human chorionic gonadotropin (hCG) measured in the first trimester of are observed in normal , but may serve as an indication of chorionic carcinoma, hydatiform mole, or multiplepregnancy. Decreasing hCG concentrations indicate threatened or missed , recent terminationof , ectopic , gestosis or intrauterine . Michell- and postmenopausal females may have detectable hCG concentrations (< or = to 14 mIU/mL) due to pituitary production of hCG. Serum follicle-stimulating hormone measurement may aid in ruling-out in this population. Cutoffs of greater than 20 to 45 mIU/mL have been suggested and are method dependent. False-elevations(called phantom human chorionic gonadotropin: hCG) may occur with patients who have human antianimal or heterophilic antibodies. Some specimens may not dilute linearly due to abnormal forms of hCG. Elevated hCG concentrations not associated with are found in patients with other diseases such as tumors of the germ cells, ovaries, bladder, pancreas, stomach, lungs, and liver. This test isnot intended to detect or monitor tumors or gestational trophoblastic disease. COMPLETE URINALYSIS All other labs were within normal range or not returned as of this dictation. EMERGENCY DEPARTMENT COURSE and DIFFERENTIAL DIAGNOSIS/MDM: Vitals: Vitals: 09/02/23 0207 BP: (!) 133/98 Pulse: (!) 113 Resp: 20 Temp: 36.9 C (98.5 F) SpO2: 98% ED Course as of 09/02/23 0543 Sat Sep 02, 2023 0218 22-year-old female presents emergency department today with paranoia that she is being followed by people from [place] and that she feels not safe here [...] showing a mild hypokalemia of 3 as wellas slightly elevated bilirubin of 1.7. Given oral replacement for potassium. [BM] 0452 test negative. [BM] 0525 Urine drug screen positive for amphetamines. [BM] 0542 Patient is medically cleared for admission to [facility]. [BM] ED Course User Index [BM] Billie [...] are any questions or concerns please feel freeto contact the dictating provider for clarification.) Billie Spears DO (electronically signed) Emergency Medicine Provider Billie Spears DO 09/02/23542 [facility] [id number] Physician Emergency department Note* Glenn Guerrero MD - 09/02/2023 1:54 AM EDT Emergency Department Encounter Location: [facility] ED Patient: Dhaval Moon : 2000 [...] 0510) I Glenn Guerrero MD am the billing clinician of record. Final Impression 1. Paranoia (psychosis) (HCC) 2. Hypokalemia 3. Methamphetamine-induced psychotic disorder (HCC) DISPOSITION (Please note that portions of this note may have been completed with a voice recognition program. Efforts were made to edit the dictations but occasionally words are mis-transcribed.) Glenn Guerrero MD [employer] Glenn Guerrero MD 09/02/23 0903 [facility] [employer] Work Phone: 1(847) 270-714807-06-2024 Note. MICRO - Microbiology PROCEDURE: Urine Culture [*1] [...] Locations *1: This test was performed at: [facility], [address] [place] [address], [address]- , [facility] ([place])08-18-2023 Evaluation + Plan note Diagnostic Tests Pending * Urine Culture 08/18/23 [facility] [facility] 07-04-2024 NoteSinus tachycardia Prolonged QT interval Electronic Signature: REGINE CONRAD MD 08/17/2023 21:35:30[facility] 05-15-2024 Evaluation + Plan note* Assessment & Plan Note - Anthony Booth MD - 06/28/2023 3:24 PM EDTAssociated Problem(s): Moderate episode of recurrent major depressive disorder (HCC) Partial remission, continue Zoloft 100 mg daily [facility] [id number] Evaluation + Plan note* Assessment & Plan Note - Anthony Booth MD - 06/28/2023 3:24 PM EDTAssociated Problem(s): Elevated transaminase level Stable, will recheck labs today. [facility] OhioYhjnlj36-20-7447 Miscellaneous Notes* Assessment & Plan Note - Anthony Booth MD - 06/28/2023 3:24 PM EDTAssociated Problem(s): Moderate episode of recurrent major depressive disorder (HCC) Partial remission, continue Zoloft 100 mg daily * Assessment & Plan Note - Anthony Booth MD - 06/28/2023 3:24 PM EDT Associated Problem(s): Elevated transaminase level Stable, will recheck labs today. * Assessment & Plan Note - Anthony Booth MD - 06/28/2023 3:23 PM EDT Associated Problem(s): Anxiety Partial remission, continue Zoloft 100 mg daily * Assessment & Plan Note - Anthony Booth MD - 06/28/2023 3:22 PM EDT Associated Problem(s): Moderate persistent asthma with exacerbation Stable, continue albuterol as needed. documented in this [facility]05-15-2024 Evaluation + Plan note* Assessment & Plan Note - Anthony Booth MD - 06/28/2023 3:23 PM EDT Associated Problem(s): Anxiety Partial remission, continue Zoloft 100 mg daily [facility] [id number] Evaluation + Plan note* Assessment & Plan Note - Anthony Booth MD - 06/28/2023 3:22 PM EDTAssociated Problem(s): Moderate persistent asthma with exacerbation Stable, continue albuterol as needed. [facility] [id number] History of Present illness Narrative* Princess Saravia MA - 06/28/2023 9:45 AM EDT Patient verified by last name and date of . * Anthony Booth MD - 06/28/2023 9:45 AM EDT Images from the original note were not included. 06/28/2023 Dhaval Moon (: 2000) is a 22 y.o. female , Established patient, here for evaluation ofthe following chief complaint(s): ER Follow-up ([facility]- 06/17/23/Intoxication/hallucinations), Hospital Follow-up ([facility] 06/07-06/10/23/Alcohol withdrawal syndrome), Health Maintenance [...] panel 7. Controlled drug dependence (HCC) - [facility] ([facility]) Follow up in about 3 months (around 09/28/2023). SUBJECTIVE/OBJECTIVE: HELEN Bryan comes in today for follow-up on her asthma, hypothyroidism, anxiety and depression, shehas elevated transaminase levels that she needs rechecked. And she is on a controlled medication and needs a drug screen. She seems to be doing better she is living in a women care home and she has lost another 14 pounds. [...] MD 06/28/2023 3:24 PM documented in this encounterS[facility] ColumbusUjbnod43-59-6328 Telephone encounter Note* Telephone Encounter - Anthony Booth MD - 06/21/2023 12:56 PM EDT Okay, thank you [facility] OhioQhiolg05-52-1207 Miscellaneous Notes* Telephone Encounter - Anthony Booth MD - 06/21/2023 12:56 PM EDT Okay, thank you * Telephone Encounter - Toni Gonzales - 06/21/2023 11:41 AM EDT Pt is scheduled to come into the office on 06/28/23 * Telephone Encounter - Autumn Martinez MA - 06/21/2023 9:33 AM EDT Will attempt to call this afternoon and/or tomorrow, since attempt was made this morning. * Telephone Encounter - Sharri Willis - 06/21/2023 9:27 AM EDT We have been unable to reach your patient to schedule their testing. Test Name: Therapy 1st Attempt: 04-13-23 2nd Attempt: 06-21-23 documented in this encounterSSelect [facility] ColumbusKlymrk73-43-8491 Telephone encounter Note* Telephone Encounter - Toni Gonzales - 06/21/2023 11:41 AM EDT Pt is scheduled to come into the office on 06/28/23 [facility] OhioZkeypt23-20-5924 Telephone encounter Note* Telephone Encounter - Autumn Martinez MA - 06/21/2023 9:33 AM EDT Will attempt to call this afternoon and/or tomorrow, since attempt was made this morning. [facility] OhioHmwqkn05-14-8751 Telephone encounter Note* Telephone Encounter - Sharri Willis - 06/21/2023 9:27 AM EDT We have been unable to reach your patient to schedule their testing. Test Name: Therapy 1st Attempt: 04-13-23 2nd Attempt: 06-21-23 [facility] OhioKfpksz40-29-2626 Note* Addendum Note - Toni Gonzales - 06/20/2023 12:54 PM EDTAddended by: TONI GONZALES on: 06/20/2023 12:54 PM Modules accepted: Orders [facility] [id number] Note* Addendum Note - Toni Gonzales - 06/20/2023 12:54 PM EDTAddended by: TONI GONZALES on: 06/20/2023 12:54 PM Modules accepted: Orders [facility] [id number] Miscellaneous Notes* Addendum Note - Toni Gonzales - 06/20/2023 12:54 PM EDTAddended by: TONI GONZALES on: 06/20/2023 12:54 PM Modules accepted: Orders * Telephone Encounter - Shira Mcnair - 06/20/2023 12:33 PM EDT Medication name: sertraline (Zoloft) 100 MG tablet [...] 04/1223 Updated/Validated preferred pharmacy: Yes [id number] Patient instructed to contact the pharmacy prior to picking up the medication: Yes documented in this encounterSSelect [facility] ColumbusWrpcfy69-15-7199 Telephone encounter Note* Telephone Encounter - Shira Mcnair - 06/20/2023 12:33 PM EDT Medication name: sertraline (Zoloft) 100 MG tablet [...] 04/1223 Updated/Validated preferred pharmacy: [id number] Patient instructed to contact the pharmacy prior to picking up the medication: Yes [facility] OhioFyrnrj84-92-2305 Telephone encounter Note* Telephone Encounter - Toni Gonzales - 06/20/2023 11:21 AM EDT Patient also needs to schedule a follow up visit in office. [facility] [id number] Miscellaneous Notes* Telephone Encounter - Toni Gonzales - 06/20/2023 11:21 AM EDT Patient also needs to schedule a follow up visit in office. * Telephone Encounter - Toni Gonzales - 06/20/2023 7:57 AM EDT MCM sent to patient. Awaiting response. * Telephone Encounter - Anthony Booth MD - 06/19/2023 3:35 PM EDT Rx sent, OARRS report done, no inconsistencies, needs to sign a CS agreement * Telephone Encounter - Toni Gonzales - 06/19/2023 7:21 AM EDT Pended. Lyrica-NO ANKIT on file. Last filled 04/25/23 * Telephone Encounter - Noemí Valera RN - 06/17/2023 12:24 PM EDT S: Patient spoke with [facility] nurse regarding Medication Question (PAL Note) B: Onset of symptoms/concern now A: Patient calling re: need for refill on her Albuterol inhaler and Lyrica. Reports that her asthmais acting up and her inhaler is completely empty. Reports an occasional cough and is wheezy. She isspeaking in full and complete sentences. No audible [...] her feet hurt. R: Upon review of 99tests med list she does have a refill left on the Albuterol Inhaler. This was verified for the patient. Spoke with Independent Marketing Consultant at [facility] and they will fill this for thepatient now. To Pharmacy is closed between 1:30 pm and 2:00 pm for lunch. Patient advised of this and that if her breathing becomes worse or if she feels SOB and this does not resolve to go to ER. Toincrease fluids, try steamy shower. Re: the Lyrica refill request that will be sent to the PCP for review on Monday. Patient understands care advice. No further needs at this time. Patient instructedto call back with new or worsening symptoms. Reason for Disposition Patient has refills remaining on their prescription Protocols used: Medication Refill and Renewal [id number] documented in this [facility]05-07-2024 Telephone encounter Note* Telephone Encounter - Toni Gonzales - 06/20/2023 7:57 AM EDT MCM sent to patient. Awaiting response. [facility] [id number] Telephone encounter Note* Telephone Encounter - Anthony Booth MD - 06/19/2023 3:35 PM EDT Rx sent, OARRS report done, no inconsistencies, needs to sign a CS agreement [facility] [id number] Telephone encounter Note* Telephone Encounter - Toni Gonzales - 06/19/2023 7:21 AM EDT Pended. Lyrica-NO ANKIT on file. Last filled 04/25/23 [facility] OhioYbdqeg16-77-0426 Note* Behavorial Health Intake - Hailey Donaldson LISW - 06/18/2023 6:44 AM EDT BEHAVIORAL HEALTH BRIEF INTAKE NOTE SERVICE DATE: 06/18/2023 SERVICE TIME: 6:44 AM Dhaval Moon is a 22 year old female brought in to [facility] ED from Home by friend for an evaluationdue to hallucinations and intoxication. Per the ED notes She has been observed until clinically sober. Repeat level is 0.06. I reevaluated the patient. She is not homicidal or suicidal. She is not psychotic. She is not hallucinating. She is clinically sober. I feel she can be safely discharged. Wediscussed resources for alcohol abuse. She states she will consider it as an outpatient. She is also encouraged to follow with her providers. Return with any new concerns. She is comfortable with this plan. FULL CASE NOT PROCESSED DUE TO: Referral canceled DISPOSITION & PLAN: Admit patient: No Discharge Disposition: Referral Cancelled, Discharge Home Disposition Date: 06/18/23 Disposition Time: 621 Pt discharged home SIGNATURE: AISHA Munoz PATIENT NAME: Dhaval Moon DATE: June 18, 2023 TIME: 6:44 AM [facility]05-05-2024 Miscellaneous Notes* Behavorial Health Intake - Hailey Donaldson LISW - 06/18/2023 6:44 AM EDT BEHAVIORAL HEALTH BRIEF INTAKE NOTE SERVICE DATE: 06/18/2023 SERVICE TIME: 6:44 AM Dhaval Moon is a 22 year old female brought in to [facility] ED from Home by friend for an evaluationdue to hallucinations and intoxication. Per the ED notes She has been observed until clinically sober. Repeat level is 0.06. I reevaluated the patient. She is not homicidal or suicidal. She is not psychotic. She is not hallucinating. She is clinically sober. I feel she can be safely discharged. Wediscussed resources for alcohol abuse. She states she will consider it as an outpatient. She is also encouraged to follow with her providers. Return with any new concerns. She is comfortable with this plan. FULL CASE NOT PROCESSED DUE TO: Referral canceled DISPOSITION & PLAN: Admit patient: No Discharge Disposition: Referral Cancelled, Discharge Home Disposition Date: 06/18/23 Disposition Time: 06 Pt discharged home SIGNATURE: AISHA Munoz PATIENT NAME: Dhaval Moon DATE: June 18, 2023 TIME: 6:44 AM [facility] Telephone encounter Note * Telephone Encounter - Noemí Valera RN - 06/17/2023 12:24 PM EDT S: Patient spoke with [facility] nurse regarding Medication Question (PAL Note) B: Onset of symptoms/concern now A: Patient calling re: need for refill on her Albuterol inhaler and Lyrica. Reports that her asthmais acting up and her inhaler is completely empty. Reports an occasional cough and is wheezy. She isspeaking in full and complete sentences. No audible [...] her feet hurt. R: Upon review of 99tests med list she does have a refill left on the Albuterol Inhaler. This was verified for the patient. Spoke with Independent Marketing Consultant at [facility] in [place] and they will fill this for thepatient now. To Pharmacy is closed between 1:30 pm and 2:00 pm for lunch. Patient advised of this and that if her breathing becomes worse or if she feels SOB and this does not resolve to go to ER. Toincrease fluids, try steamy shower. Re: the Lyrica refill request that will be sent to the PCP for review on Monday. Patient understands care advice. No further needs at this time. Patient instructedto call back with new or worsening symptoms. Reason for Disposition Patient has refills remaining on their prescription Protocols used: Medication Refill and Renewal [id number] [facility] [id number] NoteHNO ID: [id number] Author: MAYRA SCOTT LSW Service: Care Management Author Type: Thickener Operator Type: Care Mgt Initial Assessment Filed: 06/09/2023 13:21 Note Text: CARE MANAGEMENT: ASSESSMENT AND DISCHARGE PLAN SERVICE DATE: June 09, 2023 SERVICE TIME: 1:12 PM PCP: Anthony Booth MD Primary Contact: Extended Emergency Contact Information Primary Emergency Contact: Kassie Moon Address: [address] [place] [address] Mobile Relation: Mother Admission Status: Inpatient Insurance Provider: [facility] [employer] MEDICAID [facility] Discharge Planning requested by: Per Department Practice Potential Transition Plans Home Advance Directives Current Living Arrangements and Support Lives with: Family members, Parent Type of Residence: Private Residence (Apartment or Condo) Does the patient have to climb stairs at home?: No Support: Family members How do you manage to accomplish the following: Independent: Ambulation;Bathe/Shower;Dress;Meals/Meal Prep;Going to the bathroom;Medication Management;Transportation to appointments/community Current Services/Equipment Current Post-Acute Service(s): None Discharge Planning Patient Goal(s): Be able to go home [place] of Choice Explained: Are you interested in [...] Yes - Do you ever drink an eye-multimedia specialist in the morning to relieve shakes? Yes Transport at Discharge: -Family/friend Needs Prior to Discharge: Post-Acute Discharge Plan: Chart reviewed. Pt admitted from home for alcohol withdrawal. She is on CIWA precautions. She was positive for cocaine and amphetamines upon admission. Dr. Garcia is seeing her for depression. He also plans on seeing her tomorrow to assess her mental status. She is hypertensive. SW met with pt, she is AANDO x4. [...] pt with packet of community resource information: [facility] [place], homeless hotline, homeless resource guide, outpatient drug programs. She said she probably won't utilize the drug rehab programs, she feels that if she talks about her drug use she will want to use even more. SW encouraged pt to look at the packet and consider the programs to help her with her drug use. Pt reports she will return home with her father. Denies any other needs at this time. SIGNATURE: SANDRA Menendez PATIENT NAME: Dhaval Moon DATE: June 09, 2023 TIME: 1:12 PM CONTACT #:[facility]04-26-2024 NoteHNO ID: [id number] Author: ALBERT SIERRA, PhD Service: Psychology Author [...] the interview and participated actively in the conversation.[facility]04-26-2024 NoteHNO ID: [id number] Author: LUKAS YOO MD Service: Hospital Medicine [...] 0.4 06/08/2023 Abs Neut 6.29 06/08/2023 Abs [place] 0.63 06/08/2023 Abs Eosin 0.15 06/08/2023 Abs [...] ER on 06/07 co (more content not included)...[facility]03-13-2024 Evaluation + Plan note* Assessment & Plan Note - Anthony Booth MD - 04/26/2023 8:14 AM EDTAssociated Problem(s): Moderate episode of recurrent major depressive disorder (HCC) We will increase her Zoloft to 100 mg daily and have her follow-up in 3 to 4 weeks. [facility] [id number] Miscellaneous Notes* Assessment & Plan Note - Anthony Booth MD - 04/26/2023 8:14 AM EDTAssociated Problem(s): Moderate episode of recurrent major depressive disorder (HCC) We will increase her Zoloft to 100 mg daily and have her follow-up in 3 to 4 weeks. * Assessment & Plan Note - Anthony Booth MD - 04/25/2023 3:44 PM EDT Associated Problem(s): Multiple open wounds of foot Referral to wound center in [place] * Assessment & Plan Note - Anthony Booth MD - 04/25/2023 3:44 PM EDT Associated Problem(s): Moderate persistent asthma with exacerbation Stable, refill albuterol MDI and albuterol solution. * Assessment & Plan Note - Anthony Booth MD - 04/25/2023 3:43 PM EDT Associated Problem(s): Alcohol-induced polyneuropathy (HCC) Stable, she says she has not been drinking and she also thinks that the gabapentin is not working well for the neuropathy so we will switch her to Lyrica. OARRS report done, no inconsistencies, Rx sent documented in this [facility]03-12-2024 Evaluation + Plan note* Assessment & Plan Note - Anthony Booth MD - 04/25/2023 3:44 PM EDT Associated Problem(s): Multiple open wounds of foot Referral to wound center in [place] [facility] [id number] Evaluation + Plan note* Assessment & Plan Note - Anthony Booth MD - 04/25/2023 3:44 PM EDTAssociated Problem(s): Moderate persistent asthma with exacerbation Stable, refill albuterol MDI and albuterol solution. [facility] [id number] Miscellaneous Notes* Assessment & Plan Note - Anthony Booth MD - 04/25/2023 3:44 PM EDTAssociated Problem(s): Multiple open wounds of foot Referral to wound center in [place] * Assessment & Plan Note - Anthony Booth MD - 04/25/2023 3:44 PM EDT Associated Problem(s): Moderate persistent asthma with exacerbation Stable, refill albuterol MDI and albuterol solution. * Assessment & Plan Note - Anthony Booth MD - 04/25/2023 3:43 PM EDT Associated Problem(s): Alcohol-induced polyneuropathy (HCC) Stable, she says she has not been drinking and she also thinks that the gabapentin is not working well for the neuropathy so we will switch her to Lyrica. OARRS report done, no inconsistencies, Rx sent documented in this [facility]03-12-2024 Evaluation + Plan note* Assessment & Plan Note - Anthony Booth MD - 04/25/2023 3:43 PM EDT Associated Problem(s): Alcohol-induced polyneuropathy (HCC) Stable, she says she has not been drinking and she also thinks that the gabapentin is not working well for the neuropathy so we will switch her to Lyrica. OARRS report done, no inconsistencies, Rx sent [facility] [id number] History of Present illness Narrative* Princess Saravia MA - 04/25/2023 2:00 PM EDT Patient verified by last name and date of . * Anthony Booth MD - 04/25/2023 2:00 PM EDT Images from the original note were not included. 04/25/2023 Dhaval Moon (: 2000) is a 22 y.o. female , Established patient, here for evaluation ofthe following chief complaint(s): Follow-up (4 week), Anxiety, ER Follow-up (Several times - feet cellulitis and on atb feet are scabby and drainage very painful get spasms in feet ), Spasms (Whole body will be shake ), Letter for School/Work, Blood Work (Wonders if need potassium checked ), and Weight Loss (Pt concerned about 20lbweight loss in the last month) ASSESSMENT/PLAN: 1. [...] & Plan: Referral to wound center in [place] Orders: - pregabalin (Lyrica) 100 MG capsule; Take 1 capsule (100 mg) by mouth 3 times daily., Starting Mon04/25/2023, Until Crystal 05/25/2023, Normal - [facility] Follow up in about 4 weeks (around 05/23/2023). SUBJECTIVE/OBJECTIVE: HELEN -[place] comes in today for follow-up on her [...] dysphoric mood and sleep disturbance. Negative for self-injuryand suicidal ideas. The patient is nervous/anxious. Vitals: [...] MD 04/25/2023 3:45 PM documented in this [facility]03-12-2024 History of Present illness Narrative* Princess Saravia MA - 04/25/2023 2:00 PM EDT Patient verified by last name and date of . * Anthony Booth MD - 04/25/2023 2:00 PM EDT Images from the original note were not included. 04/25/2023 Dhaval Moon (: 2000) is a 22 y.o. female , Established patient, here for evaluation ofthe following chief complaint(s): Follow-up (4 week), Anxiety, ER Follow-up (Several times - feet cellulitis and on atb feet are scabby and drainage very painful get spasms in feet ), Spasms (Whole body will be shake ), Letter for School/Work, Blood Work (Wonders if need potassium checked ), and Weight Loss (Pt concerned about 20lbweight loss in the last month) ASSESSMENT/PLAN: 1. [...] daily., Starting Mon04/25/2023, Until Mon05/25/2023, Normal - [facility] 2. Moderate persistent asthma with exacerbation Assessment & Plan: Stable, refill albuterol MDI and albuterol solution. 3. Multiple open wounds of foot Assessment & Plan: Referral to wound center in [place] Orders: - pregabalin (Lyrica) 100 MG capsule; Take 1 capsule (100 mg) by mouth 3 times daily., Starting Mon04/25/2023, Until Crystal 05/25/2023, Normal - [facility] 4. Moderate episode of recurrent major depressive disorder (HCC) Assessment & Plan: We will increase her Zoloft to 100 mg daily and have her follow-up in 3 to 4 weeks. Follow up in about 4 weeks (around 05/23/2023). SUBJECTIVE/OBJECTIVE: HELEN Bryan comes in today for [...] dysphoric mood and sleep disturbance. Negative for self-injuryand suicidal ideas. The patient is nervous/anxious. Vitals: [...] MD 04/26/2023 8:15 AM documented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 2024 5:02am Do you have a Healthcare Power of Disability Insurance Hearing Officer? No July 14, 2024 2:02am Living Will No March 23 11:49am Do you have a Healthcare Power of Disability Insurance Hearing Officer? No March 23, 2024 11:49am Living Will No April 28, 2024 2:53am Do you have a Healthcare Power of Disability Insurance Hearing Officer? No April 28, 2024 2:53am Living Will No May 05, 2024 1:06am Do you have a Healthcare Power of Disability Insurance Hearing Officer? No May 05, 2024 1:06am Living Will No June 02, 2024 1:31pm Do you have a Healthcare Power of Disability Insurance Hearing Officer? No June 02, 2024 1:31pm Do you have a Healthcare Power of Disability Insurance Hearing Officer? No June 13, 2024 10:33am Do you have a Healthcare Power of Disability Insurance Hearing Officer? No July 14, 2024 11:08pm Reason for Referral Specialty Diagnoses / Procedures Referred By Contac t Referred To Contact Physical Therapy Diagnoses Alcohol-induced polyneuropathy (HCC) Weakness of both lower extremities Procedures DE OFFICE/OUTPATIENT [facility] 60 MINUTES Anthony Booth MD [address], [place] [address] [facility] [address] [place] [address] Referral ID Status Reason Start Date Expiration Date Visits Requested Visits Authorized [id number] Pending Review Eval and Treat 03/21/2023 03/15/2024 99 99 Chief Complaint and Reason for Visit Chief Complaint Admit Date OPIATE DETOX January 08, 2024 7:13pm OPIATE DETOX January 09, 2024 10:45am OPIATE DETOX January 10, 2024 10:05am mental health March 23, 2024 1 0:31am ANXIETY April 25, 2024 2:1 1pm Reason for Visit Admit Date Methamphetamine abuse January 07 7:13pm Opiate withdrawal January 08, 2024 7:13pm Chief Complaint Admit Date OPIATE DETOX January 08, 2024 7:13pm OPIATE DETOX January 09, 2024 10:45am OPIATE DETOX January 10, 2024 10:05am mental health March 23, 2024 1 0:31am ANXIETY April 25, 2024 2:1 1pm anxiety April 28, 2024 2:4 6am Chief Complaint Admit Date OPIATE DETOX January 08, 2024 7:13pm OPIATE DETOX January 09, 2024 10:45am OPIATE DETOX January 10, 2024 10:05am mental health March 23, 2024 1 0:31am ANXIETY April 25, 2024 2:1 1pm anxiety April 28, 2024 2:4 6am mental health May 05, 2024 1:0 5am Chief Complaint Admit Date mental health March 23, 2024 1 0:31am ANXIETY April 25, 2024 2:1 1pm anxiety April 28, 2024 2:4 6am mental health May 05, 2024 1:0 5am MENTAL HEALTH May 30, 2024 9:4 0pm Chief Complaint Admit Date mental health March 23, 2024 1 0:31am ANXIETY April 25, 2024 2:1 1pm anxiety April 28, 2024 2:4 6am mental health May 05, 2024 1:0 5am MENTAL HEALTH May 30, 2024 9:4 0pm GENERAL June 02, 2024 12: 57pm Chief Complaint Admit Date mental health March 23, 2024 1 0:31am ANXIETY April 25, 2024 2:1 1pm anxiety April 28, 2024 2:4 6am mental health May 05, 2024 1:0 5am MENTAL HEALTH May 30, 2024 9:4 0pm GENERAL June 02, 2024 12: 57pm detox June 13, 2024 4:57am etoh detox June 13, 2024 9:12am general illness July 14, 2024 2:02a m Chief Complaint Admit Date mental health March 23, 2024 1 0:31am ANXIETY April 25, 2024 2:1 1pm anxiety April 28, 2024 2:4 6am mental health May 05, 2024 1:0 5am MENTAL HEALTH May 30, 2024 9:4 0pm GENERAL June 02, 2024 12: 57pm detox June 13, 2024 4:57am etoh detox June 13, 2024 9:12am general illness July 14, 2024 2:02a m SOB July 14, 2024 10:58 pm Additional Source Comments INFORMATION SOURCE (unrecogn ized section and content) DATE CREATED AUTHOR 01/18/2019 [facility] DATE CREATED AUTHOR AUTHOR'S ORGANIZ ATION 03/16/2021 [facility] DATE CREATED AUTHOR AUTHOR'S ORGANIZ ATION 04/17/2023 [facility] DATE CREATED AUTHOR AUTHOR'S ORGANIZ ATION 04/22/2023 [facility] ([place] DATE CREATED AUTHOR AUTHOR'S ORGANIZ ATION 06/18/2023 [facility] DATE CREATED AUTHOR AUTHOR'S ORGANIZ ATION 09/05/2023 [facility] ([place]) DATE CREATED AUTHOR AUTHOR'S ORGANIZ ATION 07/19/2024 [facility] DATE CREATED AUTHOR AUTHOR'S ORGANIZ ATION 07/19/2024 [facility] Care Teams (unrecognized sec tion and content) [employer] Relationship Specialty Start Date End Date Anthony Booth MD [address] [facility] [place] [address] PCP - General 05/12/15 [employer] Relationship Specialty Start Date End Date Anthony Booth MD [facility] [place] [address] PCP - General 05/12/15 Team Status: Active Member Role Status Dates [facility] Primary Care Provi shawn Active Team Status: Inactive Member Role Status Dates [facility] Primary Care Provider Active Start: April 022023 End: April 02, 2023 Zachary Armenta MD Emergency Provider Active Sta rt: April 02, 2023 End: April 02, 2023 Team Status: Inactive Member Role Status Dates [facility] Primary Care Provider Active Start: April [id number] End: April 07, 2023 ED Doctor Emergency Provider Active Start: [facility] 2023 End: April 07, 2023 [employer] Relationship Specialty Start Date End Date Anthony Booth MD [facility] [place] [address] PCP - General 05/12/15 [employer] Relationship Specialty Start Date End Date Anthony Booth MD [facility] [place] [address] PCP - General 05/12/15 [employer] Relationship Specialty Start Date End Date Anthony Booth MD [address] [facility] [place] [address] PCP - General 05/12/15 [employer] Relationship Specialty Start Date End Date Anthony Booth [address] [facility] [place] [address] PCP - General Family Medicine 01/17/19 [employer] Relationship Specialty Start Date End Date Anthony Booth MD [address] [facility] [place] [address] PCP - General 05/12/15 [employer] Relationship Specialty Start Date End Date Anthony Booth MD [address] [place] [address] PCP - General 05/12/15 [employer] Relationship Specialty Start Date End Date Anthony Booth MD [address] [facility] [place] [address] PCP - General 05/12/15 [employer] Relationship Specialty Start Date End Date Anthony Booth MD [address] [facility] [place] [address] PCP - General 05/12/15 [employer] Relationship Specialty Start Date End Date Anthony Booth MD [address] [facility] [place] [address] PCP - General 05/12/15 [employer] Relationship Specialty Start Date End Date Anthony Booth MD [address] [place] [address] [place] [address] PCP - General 05/12/15 [employer] Relationship Specialty Start Date End Date Anthony Booth MD [address] [place] [address] [facility] [place] [address] PCP - General 05/12/15 Team Status: Active Member Role Status Dates Dr. Anthony Booth MD Primary Care Provider Active Team Status: Inactive Member Role Status Dates Dr. Anthony Booth MD Primary Care Provider Active Start: January 08, 2024 End: January 10, 2024 Dr. Maxx Lopez DO Emergency Provider Active Start: January 08, 2024 End: January 10, 2024 Dr. Kirill Perez DO Admit Provider Active Start: January 08, 2024 End: January 10, 2024 Dr. Kirill Perez DO Other Provider Active Start: January 08, 2024 End: January 10, 2024 Dr. Easton Pugh MD Attending Provider Active Start: January 08, 2024 End: January 10, 2024 Team Status: Active Member Role Status Dates Dr. Anthony Booth MD Primary Care Provider Active Start: January 09, 2024 Dr. Maxx Lopez DO Emergency Provider Active Start: January 09, 2024 Dr. Kirill Perez DO Admit Provider Active Start: January 09, 2024 Dr. Kirill Perez DO Other Provider Active Start: January 09, 2024 Dr. Easton Pugh MD Attending Provider Active Start: January 09, 2024 Dr. Easton Pugh MD Other Provider Active Start: January 09, 2024 Team Status: Active Member Role Status Dates Dr. Anthony Booth MD Primary Care Provider Active Start: January 10, 2024 Dr. Maxx Lopez DO Emergency Provider Active Start: January 10, 2024 Dr. Kirill Perez DO Admit Provider Active Start: January 10, 2024 Dr. Kirill Perez DO Other Provider Active Start: January 10, 2024 Dr. Easton Pugh MD Attending Provider Active Start: January 10, 2024 Dr. Easton Pugh MD Other Provider Active Start: January 10, 2024 Team Status: Inactive Member Role Status Dates Dr. Anthony Booth MD Primary Care Provider Active Start: March 23, 2024 End: March 23, 2024 Rickie Rayo MD Attending Provider Active Star t: March 23, 2024 End: March 23, 2024 Rickie Rayo MD Emergency Provider Active Star t: March 23, 2024 End: March 23, 2024 Team Status: Inactive Member Role Status Dates Dr. Anthony Booth MD Primary Care Provider Active Start: April 25, 2024 End: April 25, 2024 Dr. Filippo Fuentes MD Emergency Provider Active Sta rt: April 25, 2024 End: April 25, 2024 Team Status: Inactive Member Role Status Dates Dr. Anthony Booth MD Primary Care Provider Active Start: April 28, 2024 End: April 28, 2024 Dr. Amari Nicholas DO Emergency Provider Active Start: April 28, 2024 End: April 28, 2024 Team Status: Inactive Member Role Status Dates Dr. Anthony Booth MD Primary Care Provider Active Start: May 05, 2024 End: May 05, 2024 Dr. Daniel Herrera DO Emergency Provider Active Start: May 05, 2024 End: May 05, 2024 Team Status: Inactive Member Role Status Dates Dr. Anthony Booth MD Primary Care Provider Active Start: April 25, 2024 End: April 25, 2024 Dr. Filippo Fuentes MD Attending Provider Active Sta rt: April 25, 2024 End: April 25, 2024 Dr. Filippo Fuentes MD Emergency Provider Active Sta rt: April 25, 2024 End: April 25, 2024 Team Status: Inactive Member Role Status Dates Dr. Anthony Booth MD Primary Care Provider Active Start: April 28, 2024 End: April 28, 2024 Dr. Amari Nicholas DO Attending Provider Active Start: April 28, 2024 End: April 28, 2024 Dr. Amari Nicholas DO Emergency Provider Active Start: April 28, 2024 End: April 28, 2024 Team Status: Inactive Member Role Status Dates Dr. Anthony Booth MD Primary Care Provider Active Start: May 05, 2024 End: May 05, 2024 Dr. Daniel Herrera DO Attending Provider Active Start: May 05, 2024 End: May 05, 2024 Dr. Daniel Herrera DO Emergency Provider Active Start: May 05, 2024 End: May 05, 2024 Team Status: Inactive Member Role Status Dates Dr. Anthony Booth MD Primary Care Provider Active Start: May 30, 2024 End: May 30, 2024 Ed Physician Provider Emergency Provider Active Start: May 30, 2024 End: May 30, 2024 Team Status: Inactive Member Role Status Dates Dr. Anthony Booth MD Primary Care Provider Active Start: June 02, 2024 End: June 02, 2024 Dr. Filippo Fuentes MD Emergency Provider Active Sta rt: June 02, 2024 End: June 02, 2024 [employer] Relationship Specialty Start Date End Date Anthony Booth MD [address] [place] [id number] PCP - General 05/12/15 [employer] Relationship Specialty Start Date End Date Anthony Booth MD [address] [place] [address] PCP - General 05/12/15 Team Status: Active Member Role Status Dates No Primary Care Physician Primary Care Provider Active Team Status: Inactive Member Role Status Dates Dr. Anthony Booth MD Primary Care Provider Active Start: May 30, 2024 End: May 30, 2024 Ed Physician Provider Attending Provider Active Start: May 30, 2024 End: May 30, 2024 Ed Physician Provider Emergency Provider Active Start: May 30, 2024 End: May 30, 2024 Team Status: Inactive Member Role Status Dates Dr. Anthony Booth MD Primary Care Provider Active Start: June 02, 2024 End: June 02, 2024 Dr. Filippo Fuentes MD Attending Provider Active Sta rt: June 02, 2024 End: June 02, 2024 Dr. Filippo Fuentes MD Emergency Provider Active Sta rt: June 02, 2024 End: June 02, 2024 Team Status: Inactive Member Role Status Dates Dr. Anthony Booth MD Primary Care Provider Active Start: June 13, 2024 End: June 13, 2024 Dr. Daniel Herrera DO Attending Provider Active Start: June 13, 2024 End: June 13, 2024 Dr. Daniel Herrera DO Emergency Provider Active Start: June 13, 2024 End: June 13, 2024 Team Status: Inactive Member Role Status Dates Dr. Anthony Booth MD Primary Care Provider Active Start: June 13, 2024 End: June 13, 2024 Dr. Tree Crowe MD Attending Provider Active S tart: June 13, 2024 End: June 13, 2024 Dr. Tree Crowe MD Emergency Provider Active S tart: June 13, 2024 End: June 13, 2024 Team Status: Inactive Member Role Status Dates Dr. Bharat Pinedo DO Emergency Provider Active Start: July 14, 2024 End: July 14, 2024 No Primary Care Physician Primary Care Provider Active Start: July 14, 2024 End: July 14, 2024 Team Status: Inactive Member Role Status Dates No Primary Care Physician Primary Care Provider Active Start: July 14, 2024 End: July 14, 2024 Dr. Daniel Herrera DO Emergency Provider Active Start: July 14, 2024 End: July 14, 2024 Reason for Visit (unrecogniz ed section and content) Reason Comments Hospital Follow-up [facility] 04/08-Was told have thyroid issue but [...] Comments Scheduling 06/21/2023 Reason Comments ER Follow-up [facility]- 06/17/23 Intoxicationhallucinations Hospital Follow-up [facility] 06/07-Alcohol withdrawal syndrome Health Maintenance Pcv 20 vaccine- refu seVaricella vaccine- had chicken pox Hpv vaccine- refuseHep c screening- refuseCovid vaccine- not donePap- not done and not ready for one Med Refill Fatigue Reason Comments Anxiety Reason Onset Date Comments Referral 11/03/2023 Wound Care and P hysical Therapy Reason Onset Date Comments Med Refill 02/26/2024 Reason Onset Date Comments Medication Problem 07/03/2024 Reason Comments Follow-up Possible Medication Check Med Refill Goals (unrecognized section and content) Goals may be documented in a n alternate sectionGoals may be documented in an alternate section No data available for this section No data available for this sectionGoals may be documented in an alternate sectionGoals may be documented in an alternate sectionGoals may be documented in an alternate sectionGoals may be documented in an alternate section Source Comments (unrecognize d section and content) In the event this informatio n is protected by the Federal Confidentiality of Alcohol and Drug Abuse Patient Records regulations: The Federal rules restrict any use of the information to criminally investigate or prosecute any alcohol or drug abuse patient.[facility] Scheduled Active and Recently Administ ered Medications [...] BE BASED ON THE PRIMARY CLINICAL RECORDS. [facility]. provides no warranty or guarantee of the accuracy or completeness of information in this document.
--- NOTE | 2024-08-03 21:35 | RAD_ITS ---
PROCEDURE: CHEST 1 VIEW (PORTABLE) 08/03/2024 REASON FOR EXAM: COUGH AND DYSPNEA TECHNIQUE: Frontal view of the chest. COMPARISON: Chest radiograph 07/14/2024. FINDINGS: Hardware: None. Heart: Cardiac and mediastinal contours are stable. Lungs: No focal consolidation, pleural effusion or pneumothorax. Bones: The bones are unremarkable. RAD/Chest 1 View (Portable) IMPRESSION: Negative Chest. Reading Location: [id number]
[2024-08-03 21:39] VITALS: BP 144/82; PULSE 95; RESP 16; TEMP 36.7; O2SAT 100
[2024-08-03 21:52] LABS: Red Blood Cells-Urine 0 SEEN /hpf (0-5)
[2024-08-03 21:59] LABS: Absolute Lymphocyte Count 2.96 X10^3/uL (0.83-4.51); Absolute Neutrophil Count 5.4 X10^3/uL (2.0-7.7); Basophil# 0.04 X10^3/uL; Basophil% 0.4 % (0-1); Eosinophil# 0.16 X10^3/uL; Eosinophils% 1.7 % (0-5); Hematocrit 40.1 % (37-47); Hemoglobin 13.6 g/dL (12.0-15.0); Lymphocyte # 2.96 X10^3/ul (0.83-4.51); Lymphocyte % 31.8 % (19-41); Mean Corp Hgb Conc 33.9 g/dL (32-36); Mean Corpuscular Hgb 32.1 pg (27.0-32.0); Mean Corpuscular Volume 94.6 fL (81-99); Mean Platelet Vol. 10.9 fl (6.2-12.0); Monocyte# 0.73 X10^3/uL; Monocyte% 7.8 % (0-10); NRBC Flagged by Analyzer 0 % (0-5); Neutrophil # 5.41 X10^3/uL (2.7-7.7); Neutrophil % 58.1 % (47-70); Platelet Count 306 K/mm3 (150-450); RBC Distribution Width SD 48.3 fl (35.1-43.9); Red Blood Count 4.24 M/mm3 (4.2-5.4); White Blood Count 9.3 K/mm3 (4.4-11.0)
[2024-08-03 22:10] LABS: Color, Urine Yellow (Yellow); Glucose, Dipstick Normal (Normal); Ketone-Dipstick 50 mg/dl (Negative); Leukocyte Esterase-Dipstick Negative /ul (Negative); Nitrite-Dipstick Negative (Negative); Occult Blood-Urine Negative /ul (Negative); Protein-Dipstick 15 mg/dl (Negative); Specific Gravity, Urine 1.015 (1.002-1.030); Urine Bilirubin Dipstick Negative (Negative); Urine Clarity Clear (Clear); Urine Urobilinogen Normal (Normal); Urine pH 6.5 (5.0 - 8.0)
[2024-08-03 22:25] LABS: Internal QC Validated? YES +Cl - CLEAR BKGD; Pregnancy, Serum, hCG Quali. NEGATIVE Negative
[2024-08-03 22:27] LABS: Amphetamine Urine PRESUMPTIVE POSITIVE (<1000 ng/mL); Barbiturate Urine NEGATIVE (< 200 ng/mL); Benzodiazepine Urine NEGATIVE (< 200 ng/mL); Buprenorphine Urine NEGATIVE (< 200 ng/mL); Cocaine Urine NEGATIVE (< 300 ng/mL); Fentanyl, Urine NEGATIVE; Methadone Urine NEGATIVE (< 300 ng/mL); Opiates Urine NEGATIVE (< 300 ng/mL); Oxycodone, Urine NEGATIVE (< 100 ng/mL); PCP Urine NEGATIVE (< 25 ng/mL); THC Urine NEGATIVE (< 50 ng/mL)
[2024-08-03 22:33] LABS: Amorphous Sediment 1+; Bacteria 3+ /hpf (None Seen); Mucous, Urine 1+ /hpf (<or=2+); Squamous Epithelial Cells - UA 0-5 SEEN /hpf (5-10); White Blood Cells 0-5 SEEN /hpf (0-5)
[2024-08-03 22:45] LABS: Prothrombin Time (Protime)PT. 13.7 SECONDS (11.7-14.9)
[2024-08-03 22:46] LABS: Partial Thromboplast Time 31.1 Seconds (24.1-36.2)
[2024-08-03 23:00] VITALS: BP 135/91; PULSE 84; RESP 14; O2SAT 100
[2024-08-03 23:17] LABS: Alcohol, Blood (Medical)-Serum < 10.1 mg/dL (<=10.0)
[2024-08-03 23:24] LABS: AST(SGOT) 15 U/L (<=31); Alanine Aminotransfer ALT/SGPT 6 U/L (<=34); Albumin, Serum 3.5 g/dL (3.5-5.0); Alkaline Phosphatase 78 U/L (35-104); Anion Gap 12 (5-15); BUN 6 mg/dL (4-19); BUN/Creat Ratio 12.2 RATIO (10-20); Bilirubin, Direct 0.55 mg/dL (0.00-0.30); Carbon Dioxide 20.1 mmol/L (21.0-32.0); Chloride 104 mmol/L (98-108); Creatinine, Serum 0.47 mg/dL (0.70-1.20); EST Glomerular Filtration Rate 137 (>60); Estimated Creatinine Clearance 203.57 ml/min (50-250); Globulin 3.3 g/dL (2.2-4.2); Glucose 81 mg/dL (70-99); Magnesium 1.8 mg/dL (1.5-2.2); Potassium 3.4 mmol/L (3.3-5.1); Protein, Total 6.8 g/dL (5.9-8.4); Sodium Level 137 mmol/L (133-145)
--- NOTE | 2024-08-04 00:27 | EX.ED.DYSGE1 ---
HPI History of Present Illness Chief Complaint: Shortness of Breath Informant: patient and EMS Narrative Narrative: 23-year-old female history of methamphetamine abuse, bipolar disorder borderline personality disorder alcohol abuse presenting to the emergency room stating that she needs help with her life. Patient states that she is trying to stay free from methamphetamines and is worried about her drinking. She states she does not drink every day but has been drinking more so than normal. She states that she saw her primary care physician a couple weeks ago but did not see the actual physician but another practitioner in the group. She states they would not refill her psychiatric medicines but only the hydroxyzine. States that she wanted them to prescribe her Zyprexa. She states that she is not currently seeing a psychiatrist. Patient states that her life is in turmoil and she does not know if she can cope with it on her own. She is unsure if she wants alcohol detox. She called EMS because this morning she states that she was breathing fast and had paresthesias in her hands. There is a report from EMS that she had overdosed in the park but the details surrounding that are not clear and the patient does not recall that. [facility] Medical History Hypertension Substance abuse History of bipolar disorder History of schizophrenia Schizo affective schizophrenia Bipolar 1 disorder Alcohol abuse PTSD (post-traumatic stress disorder) Depression Anxiety Home Medications ?Medication ?Instructions ?Recorded ?Last Taken ?Type albuterol sulfate 90 mcg/actuation 2 puff inhalation Q6H PRN PRN 07/14/24 Unknown History aerosol inhaler wheezing fluticasone propionate 45 2 inh inhalation Q12H 07/14/24 Unknown History mcg-salmeterol 21 mcg/actuation HFA inhaler (Advair HFA) folic acid 1 mg tablet 1 mg PO DAILY 07/14/24 Unknown History hydroxyzine pamoate 25 mg capsule 50 mg PO Q8H PRN PRN anxiety 07/14/24 Unknown History losartan 50 mg tablet 50 mg PO DAILY 07/14/24 Unknown History metoprolol succinate 25 mg 25 mg PO BID 07/14/24 Unknown History tablet,extended release 24 hr multivitamin 1 tab PO DAILY 07/14/24 Unknown History olanzapine 5 mg tablet 5 mg PO QHS 07/14/24 Unknown History omeprazole 20 mg capsule,delayed 20 mg PO DAILY 07/14/24 Unknown History release vitamin B complex-folic acid 0.4 1 tab PO DAILY 07/14/24 Unknown History mg tablet (B Complex 1 (with folic acid)) Allergy/AdvReac Type Severity Reaction Status Date / Time Penicillins (PCN) Allergy Hives Verified 08/03/24 19:36 pine nut Allergy Hives Verified 08/03/24 19:36 Social History Smoking Status: Current some day smoker tobacco type: cigarettes and e-cigarettes substance use type: methamphetamine ROS ROS ED Constitutional Constitutional ED: Denies chills, fever(s) or weight loss Eyes Eyes: Denies change in vision or diplopia ENT ENT ED: Denies ear pain, rhinorrhea or sore throat Cardiovascular Cardiovascular: Denies chest pain, orthopnea, palpitations or racing heartbeat Respiratory/Chest Respiratory/Chest: Reports cough and dyspnea; Denies orthopnea Gastrointestinal Gastrointestinal: Denies abdominal pain, diarrhea, nausea or vomiting Genitourinary Genitourinary ED: Denies dysuria, hematuria or urinary frequency Musculoskeletal Musculoskeletal: Denies arthralgias or myalgias Integumentary Denies abscess or rash Neurologic Neurologic: Reports paresthesias RUE and LUE; Denies headache(s) or weakness Psychiatric Psychiatric: Reports anxiety and depression; Denies suicidal ideation or suicidal thoughts Endocrine Endocrinology: Denies polydipsia, polyphagia or polyuria Allergic/Immunologic Allergic/Immunologic ED: Denies mouth swelling, tongue swelling or urticaria EXAM Physical Exam Const Vital Signs: 08/03/24 19:36 08/03/24 19:54 08/03/24 21:39 Temperature 98.5 F 98.1 F Temperature Source Oral Oral Pulse Rate 104 H 95 Respiratory Rate 18 16 Respiratory Effort Normal Respiratory Depth Normal Respiratory Pattern Normal Blood Pressure 138/94 H 144/82 H Blood Pressure Mean 108 102 Pulse Ox 100 100 Oxygen Delivery Method Room Air Room Air Room Air 08/03/24 23:00 Temperature Temperature Source Pulse Rate 84 Respiratory Rate 14 Respiratory Effort Respiratory Depth Respiratory Pattern Blood Pressure 135/91 H Blood Pressure Mean 105 Pulse Ox 100 Oxygen Delivery Method Room Air Positive well nourished and well developed General Appearance ED: well developed and NAD HEENT Reports normocephalic, head/scalp atraumatic and moist mucous membranes Eyes PERRL and EOMs intact bilaterally Neck no lymphadenopathy, supple and no JVD Resp normal respiratory effort and clear to auscultation bilaterally Cardio regular rate, regular rhythm and no murmurs GI normal to inspection, nondistended, normoactive bowel sounds and non-tender Palpation: soft Back/Spine no CVA tenderness and normal ROM Extremity normal to inspection General Extremety ED: Negative for edema General Extremity: Negative for edema Neuro oriented x3 and CN's II-XII intact bilaterally Sensorium / Orientation: alert Motor Exam: strength 5/5 throughout Psych Psych Narrative: Patient is demonstrating pressured speech. She does not have tangential thinking and rapidly moves from subject to subject. She is however redirectable. She denies active suicidal plan or homicidal thoughts. She denies hallucinations. She endorses anxiety. I have seen this patient in the past and many times she is very fidgety and cannot sit still. However today she is able to sit comfortably in the bed. She occasionally will make eye contact with me. Mood & Affect: Negative for depressed or tearful Skin no rashes or lesions noted and no wounds MDM MDM MDM Narrative Medical decision making narrative: Differential diagnosis includes but not limited to suicidal ideation polysubstance abuse medication noncompliance intoxication Basic blood work is obtained rather unremarkable. Toxicology is positive for presumptive amphetamines. Alcohol is negative. TSH is normal. test is negative. EKG is a sinus rhythm at a rate of 80 bpm. My independent interpretation of the chest x-ray is no acute process. Electrolytes are within normal limits. No evidence of FLOYD. I visited with the patient and he also visited with our psychiatric social worker supervisor as well as spoke with crisis. Crisis is going to come and evaluate the patient. Disposition will be made after conferring with them. Care of the patient's will be turned over to the oncoming night physician. History & Record Review Discussion w/independent historian: EMS personnel and Patient Additional record(s) reviewed:: Prior ED visit and Prior labs Lab Data Attestation: I reviewed the patient's lab results. Labs: Laboratory Results - last 24 hr 08/03/24 08/03/24 08/03/24 21:36 21:45 21:46 WBC 9.3 RBC 4.24 Hgb 13.6 Hct 40.1 MCV 94.6 MCH 32.1 H MCHC 33.9 RDW Std Deviation 48.3 H RDW Coeff of Jaden 14.0 Plt Count 306 MPV 10.9 Immature Gran % (Auto) 0.200 Neut % (Auto) 58.1 Lymph % (Auto) 31.8 [place] % (Auto) 7.8 Eos % (Auto) 1.7 Baso % (Auto) 0.4 Absolute Neuts (auto) 5.4 Absolute Lymphs (auto) 2.96 Nucleated RBC % 0 PT Cancelled INR Cancelled APTT Cancelled Sodium Cancelled Potassium Cancelled Chloride Cancelled Carbon Dioxide Cancelled Anion Gap Cancelled BUN Cancelled Creatinine Cancelled Estim Creat Clear Calc Cancelled Est GFR (MDRD) Non-Af Cancelled BUN/Creatinine Ratio Cancelled Glucose Cancelled Calcium Cancelled Magnesium Cancelled Total Bilirubin Cancelled Direct Bilirubin Cancelled AST Cancelled ALT Cancelled Alkaline Phosphatase Cancelled Total Protein Cancelled Albumin Cancelled Globulin Cancelled TSH Cancelled Serum , Qual NEGATIVE Urine Color Yellow Urine Clarity Clear Urine pH 6.5 Ur Specific [place] 1.015 Urine Protein 15 H Urine Glucose (UA) Normal Urine Ketones 50 H Urine Occult Blood Negative Urine Nitrite Negative Urine Bilirubin Negative Urine Urobilinogen Normal Ur Leukocyte Esterase Negative Urine RBC 0 SEEN Urine WBC 0-5 SEEN Ur Squamous Epith Cells 0-5 SEEN Amorphous Sediment 1+ Urine Bacteria 3+ Urine Mucus 1+ Urine Opiates Screen NEGATIVE U Buprenorphine Qual NEGATIVE Ur Oxycodone Screen NEGATIVE Urine Methadone Screen NEGATIVE Urine Fentanyl Screen NEGATIVE Ur Barbiturates Screen NEGATIVE Ur Phencyclidine Scrn NEGATIVE Ur Amphetamines Screen PRESUMPTIVE POSITIVE U Benzodiazepines Scrn NEGATIVE Urine Cocaine Screen NEGATIVE U Cannabinoids Screen NEGATIVE Ethyl Alcohol Cancelled 08/03/24 08/03/24 22:20 22:35 WBC RBC Hgb Hct MCV MCH MCHC RDW Std Deviation RDW Coeff of Jaden Plt Count MPV Immature Gran % (Auto) Neut % (Auto) Lymph % (Auto) [place] % (Auto) Eos % (Auto) Baso % (Auto) Absolute Neuts (auto) Absolute Lymphs (auto) Nucleated RBC % PT 13.7 INR 1.0 APTT 31.1 Sodium 137 Potassium 3.4 Chloride 104 Carbon Dioxide 20.1 L Anion Gap 12 BUN 6 Creatinine 0.47 L Estim Creat Clear Calc 203.57 Est GFR (MDRD) Non-Af 137 BUN/Creatinine Ratio 12.2 Glucose 81 Calcium 9.0 Magnesium 1.8 Total Bilirubin 1.30 Direct Bilirubin 0.55 H AST 15 ALT 6 Alkaline Phosphatase 78 Total Protein 6.8 Albumin 3.5 Globulin 3.3 TSH 1.690 Serum , Qual Urine Color Urine Clarity Urine pH Ur Specific [place] Urine Protein Urine Glucose (UA) Urine Ketones Urine Occult Blood Urine Nitrite Urine Bilirubin Urine Urobilinogen Ur Leukocyte Esterase Urine RBC Urine WBC Ur Squamous Epith Cells Amorphous Sediment Urine Bacteria Urine Mucus Urine Opiates Screen U Buprenorphine Qual Ur Oxycodone Screen Urine Methadone Screen Urine Fentanyl Screen Ur Barbiturates Screen Ur Phencyclidine Scrn Ur Amphetamines Screen U Benzodiazepines Scrn Urine Cocaine Screen U Cannabinoids Screen Ethyl Alcohol < 10.1 Radiography Diagnostic Testing: Clinical Impression(s) from Imaging Studies Chest X-Ray 08/03/24 21:35 IMPRESSION: Negative Chest. Reading Location: [id number] Management Discussion w/another healthcare provider: ecclesiastical worker/Case management and Behavioral health Discharge Plan Triage Chief Complaint: Shortness of Breath Other Complaint: Anxiety ED Provider: Amari Nicholas Dx/Rx/DC Orders Prescriptions: No Action losartan 50 mg tablet 50 mg PO DAILY metoprolol succinate 25 mg tablet extended release 24 hr 25 mg PO BID albuterol sulfate 90 mcg/actuation HFA aerosol inhaler 2 puff inhalation Q6H PRN PRN (Reason: wheezing) fluticasone propion-salmeterol [Advair HFA] 45-21 mcg/actuation HFA aerosol inhaler 2 inh inhalation Q12H multivitamin Tablet 1 tab PO DAILY olanzapine 5 mg tablet 5 mg PO QHS omeprazole 20 mg capsule,delayed release(DR/EC) 20 mg PO DAILY folic acid 1 mg tablet 1 mg PO DAILY hydroxyzine pamoate 25 mg capsule 50 mg PO Q8H PRN PRN (Reason: anxiety) vitamin B complex-folic acid [B Complex 1 (with folic acid)] 0.4 mg tablet 1 tab PO DAILY Primary Care Provider: Anthony Shepard Referrals: Anthony Shepard MD [Primary Care Provider] - Print Language: Frisian
[2024-08-04 01:00] VITALS: BP 122/76; PULSE 76; RESP 16; O2SAT 96
--- NOTE | 2024-08-04 02:04 | ED.RN ---
Patient comes to Physicians office requesting IV be taken out. Rn and Dr. Rayo informed patient she is pink slipped and needs to return to her room. Patient states I am not staying. I have not said anything that would get me pink slipped. Rn explains to patient the doctor and counselor agreed it would be best to send you to a facility for stabilization. Patient states she just wants her 3 day detox from alcohol. Patient refuses to return to room. IV still in place. security Calvin notified.
--- NOTE | 2024-08-04 02:07 | NURSING ---
Pt talked with crisis. When crisis left she came out to doctors station and verbalized that she is not staying and is NOT pink slipped. Dr Notified her that she was pink slipped. . She appeared to return to her room in 10. However she slipped out the back hallway. IV in place. Security and PD notified. Unable to find at this time.
[2024-08-04] MEDS: Lorazepam 2 MG/ML WCH Syringe IM (02:54)
[2024-08-04 03:00] VITALS: BP 133/96; PULSE 85; RESP 16; TEMP 36.7; O2SAT 98
--- NOTE | 2024-08-04 03:00 | NURSING ---
PT returned to ed. IV intact. Pt upset but able to be de-escilated. Pt copporative at this time.
[2024-08-04 04:58] VITALS: BP 145/77; PULSE 88; RESP 16; TEMP 36.6; O2SAT 99
--- NOTE | 2024-08-04 07:02 | NURSING ---
REPORT GIVEN TO [facility]. IV REMOVED. PT NOTIFIED OF TRANSPORT BEING HERE. VERBALIZED UNDERSTANDING AND IS AGREEABLE AT THIS TIME.
== END 2024-08-04 07:03 ==
PROVIDERS: Emergency Provider Emergency Medicine; PCP Family Medicine; Visit Provider Emergency Medicine
DX: F31.5 Bipolar disorder, current episode depressed, severe, with psychotic features (principal); F15.10 Other stimulant abuse, uncomplicated; F60.3 Borderline personality disorder; I10 Essential (primary) hypertension; F17.210 Nicotine dependence, cigarettes, uncomplicated; F17.290 Nicotine dependence, other tobacco product, uncomplicated; F10.10 Alcohol abuse, uncomplicated; Y90.9 Presence of alcohol in blood, level not specified; R06.02 Shortness of breath; Z79.899 Other long term (current) drug therapy
CPT/HCPCS: 71045; 80048; 80076; 80307; 81001; 82077; 83735; 84443; 84703; 85025; 85610; 85730; 93005; 96372; 99285; A4216

== ENCOUNTER 2024-11-11 03:17 | Emergency (ER) | payer MEDICAID, SELFPAY ==
--- OUTSIDE RECORDS SUMMARY | 2024-10-30 16:02 | XMS RPT_ITS ---
Author Name [employer] Support Name Relationship Address Phone OLGA PECK Next of Kin Unknown Unavailable MOON, DHAVAL Next of Kin Unknown Unavailable SHOOK, KHUSHBOO Next of Kin Unknown Unavailable SHOOK, KHUSHBOO Next of Kin Unknown Unavailable HUGHS, OLGA Next of Kin Unknown Unavailable SHOOK, KHUSHBOO Next of Kin Unknown Unavailable SHOOK, KHUSHBOO Next of Kin Unknown Unavailable HUGHS, OLGA Next of Kin Unknown Unavailable SHOOK, KHUSHBOO Next of Kin Unknown Unavailable SHOOK, KHUSHBOO Next of Kin Unknown Unavailable HUGHS, OLGA Next of Kin Unknown Unavailable SHOOK, KHUSHBOO Next of Kin Unknown Unavailable SHOOK, KHUSHBOO Next of Kin Unknown Unavailable HUGHS, OLGA Next of Kin Unknown Unavailable SHOOK, KHUSHBOO Next of Kin Unknown Unavailable SHOOK, KHUSHBOO Next of Kin Unknown Unavailable PECK, OLGA Next of Kin Unknown Unavailable MOON, DHAVAL Next of Kin Unknown Unavailable SHOOK, KHUSHBOO Next of Kin Unknown Unavailable SHOOK, KHUSHBOO Next of Kin Unknown Unavailable PECK, OLGA Next of Kin Unknown Unavailable MOON, DHAVAL Next of Kin Unknown Unavailable SHOOK, KHUSHBOO Next of Kin Unknown Unavailable SHOOK, KHUSHBOO Next of Kin Unknown Unavailable PECK, OLGA Next of Kin Unknown + Care Team Providers Care Telephone Surveyor Name Role Phone LUIS KATHLEEN Attending Unavailable ANTHONY BOOTH Primary Care Unavailable ANTHONY BOOTH Primary Care UnavailAMANDA Cruz Attending Unavailable ANTHONY BOOTH Primary Care UnavailEROS Rangel Attending Unavailable CSELUPE, DENICE REGINE Attending Unavailable LEOBARDO, ANTHONY PIPER Primary Care Unavailabl e CHACHA DEMARCO Attending Unavailable LEOBARDO, ANTHONY PIPER Primary Care Unavailabl e LEOBARDO, ANTHONY PIPER Primary Care Unavailabl e DELILAH MARIE II Attending Unavailabl e DANNY BRADLEY Primary Care Unavailable KEYANA KIRK Attending Unavailable [facility] Consulting TIGIST Riley Admitting Unavailable DANNY BRADLEY Primary Care Unavailable PABLO CUMMINGS Attending Unavailable ROBERTO GUTIERREZ Consulting Unavaila ble LEOBARDO, ANTHONY Primary Care Unavailable LEOBARDO, ANTHONY Primary Care Unavailable MAYRA HUGO Attending Unavailable LEOBARDO, ANTHONY Primary Care Unavailable SAVANANH GARCIA Attending Unavailable PHYSICIAN, NO PCP Primary Care Unavailable KEVON DUARTE Attending Unavailable PHYSICIAN, NO PCP Primary Care Unavailable PROBLEMS DATE TYPE CONDITION / CODE ATTENDING STATUS [facility] 10/30/2024 Admitting diagnosis Alcohol use, unspecified, uncomplicated / F10.90(ICD-10) NA Active [facility] 10/30/2024 Admitting diagnosis Urinary tract infection, site not specified / N39.0(ICD-10) [facility] 10/30/2024 Admitting diagnosis Hematuria, unspecified / R31.9(ICD-10) [facility] 10/29/2024 Unknown Upper abdominal pain, unspecified / R10.10(ICD-10) EROS WELLER [facility] 06/08/2023 Active Drug abuse (HCC) / F19.10(ICD-10) [facility] 10/12/2024 Active Alcohol abuse / F10.10(ICD-10) [facility] 10/05/2024 Unknown Urinary tract infection, site not specified / N39.0(ICD-10) AMANDA COREY [facility] 10/05/2024 Unknown Acute vaginitis / N76.0(ICD-10) AMANDA COREY [facility] 10/05/2024 Unknown Other specified bacterial agents as the cause of diseases classified elsewhere / B96.89(ICD-10) AMANDA COREY Active [facility] 10/04/2024 Admitting diagnosis Alcohol use, unspecified with intoxication, unspecified / F10.929(ICD-10) DELILAH MARIE II [facility] 10/03/2024 Working Diagnosis Encounter for screening, unspecified / Z13.9(ICD-10) BEVERLYMATEUSZSAVANNAH ORTA Active [facility] 10/01/2024 Admitting diagnosis Other stimulant use, unspecified, uncomplicated / F15.90(ICD-10) CSELUPE [facility] 10/01/2024 Admitting diagnosis Sedative, hypnotic, or anxiolytic use, unspecified, uncomplicated / F13.90(ICD-10) CSEPE, [facility] 10/01/2024 Admitting diagnosis Cocaine use, unspecified, uncomplicated / F14.90(ICD-10) CSELUPE [facility] 09/28/2024 Working Diagnosis Alcohol abuse, uncomplicated / F10.10(ICD-10) KEVON DUARTE [facility] 09/27/2024 Admitting diagnosis Sprain of unspecified ligament of left ankle, initial encounter / S93.402A(ICD-10) KEYANA KIRK [facility] 09/24/2024 Admitting diagnosis Alcohol use, unspecified with withdrawal, unspecified / F10.939(ICD-10) PABLO CUMMINGS [facility] 08/23/2024 Admitting diagnosis N/V / UNK(Unknown) NA Active [facility] 08/12/2024 Admitting diagnosis Generalized abdominal pain / R10.84(ICD-10) MAYRA HUGO Active [facility] 08/12/2024 Admitting diagnosis Chest pain, unspecified / R07.9(ICD-10) MAYRA HUGO Active [facility] 11/28/2021 Admitting Diagnosis Moderate persistent asthma with (acute) exacerbation / J45.41(ICD-10) LUIS KATHLEEN Active [facility] 11/28/2021 Admitting Diagnosis Anxiety disorder, unspecified / F41.9(ICD-10) [facility] 07/09/2024 Admitting Diagnosis Irregular menstruation, unspecified / N92.6(ICD-10) [facility] 07/09/2024 Admitting Diagnosis Other seasonal allergic rhinitis / J30.2(ICD-10) [facility] 07/09/2024 Admitting Diagnosis Essential (primary) hypertension / I10(ICD-10) [facility] 07/09/2024 Admitting Diagnosis Nausea with vomiting, unspecified / R11.2(ICD-10) [facility] PROCEDURES No Procedure Records Found RESULTS SYPHILIS AB W/REFLEX RPR Collected: 4:32 PM Status: F Source: [facility] TYPE CODE TESTS RESULT OUT OF RANGE REFERENCE UNITS LAB [id number] Syphilis IgG/IGM Total Non Reactive Non Reactive Performed By: #### SYPHT ### # [facility] (DEFAULT) [address] [address] HIV 1 AND 2 ANTIBODIES/P24 ANTIGEN Collected: 10/30/2024 4:32 PM Status: F Source: [facility] TYPE CODE TESTS RESULT OUT OF RANGE REFERENCE UNITS LAB [id number] HIV-1/HIV-2 Ab With p24 Antigen Non Reactive Non Reactive Performed By: #### [id number] #### [facility] (DEFAULT) [address] [address] BETA HCG, QUAL, BLOOD Collected: 10/30/2024 4:32 PM Status: F Source: [facility] TYPE CODE TESTS RESULT OUT OF RANGE REFERENCE UNITS LAB [id number] HCG (Qual) Serum Negative Negative Performed By: #### BHCG #### [facility] (DEFAULT) [address] [address] CHLAMYDIA & GONORRHEA AMPLIF IED PROBE Collected: 10/30/2024 4:22 PM Status: F Source: [facility] Order Comment: This test was performed using Coffee Machine Technician Mediated Amplification for the detection of Chlamydia trachomatis and/or Neisseria gonorrhoeae nucleic acid. This assay is not intended for the evaluation of suspected sexual abuse or other medico-legal indications. TYPE CODE TESTS RESULT OUT OF RANGE REFERENCE UNITS LAB [id number] Chlamydia trachomatis Amplified Probe Not Detected Not Detected Result Comment: A negative t est result for Chlamydia trachomatis does not preclude the possibility of infection. Results should be considered in conjunction with other clinical and laboratory findings. LAB [id number] Neisseria gonorrhea Amplified Probe Not Detected Not Detected Result Comment: A negative t est result for Neisseria gonorrhoeae does not preclude the possibility of infection. Results should be considered in conjunction with other clinical and laboratory findings. Performed By: #### GCSCRN ## ## [facility] (DEFAULT) [address] [address] URINE DIPSTICK; REFLEX MICROSCOPY; REFLEX CULTURE PERFORMABLE Collected: 10/30/2024 4:22 PM Status: F Source: [facility] TYPE CODE TESTS RESULT OUT OF RANGE REFERENCE UNITS LAB [id number] Color Yellow Yellow LAB [id number] Appearance Urine Cloudy Abnormal Clear LAB [id number] Glucose Urine Negative Negative LAB [id number] Ketones Urine Negative Negative LAB [id number] Specific [place] Urine 1.018 1.001-1.035 LAB [id number] Blood Urine Trace Abnormal Negative LAB [id number] pH Urine 6.5 5.0-7.0 LAB [id number] Protein Urine Negative Negative LAB [id number] Urobilinogen Urine 1.0 E.U./dL 0.2 E.U/dL, 1.0 E.U/dL LAB [id number] Nitrites Urine Positive Abnormal Negative LAB [id number] Leukocyte Esterase Large Abnormal Negative Performed By: #### [id number] , [id number] #### [facility] (DEFAULT) [address] [place] [address] URINE MICROSCOPIC WITH REFLE X TO CULTURE Collected: 10/30/2024 4:22 PM Status: F Source: [facility] TYPE CODE TESTS RESULT OUT OF RANGE REFERENCE UNITS LAB [id number] RBC Urine 3-5 Abnormal 0-2 /HPF LAB [id number] WBC Urine > 20 Abnormal 0 - 5 /HPF LAB [id number] Squamous/Epi thelial Cells, Urine 0-2/hpf 0-2/hpf, 3-5/hpf = 1+ LAB [id number] Bacteria PRESENT Abnormal ABSENT Performed By: #### [id number] , [id number] #### [facility] (DEFAULT) [address] [address] AFFIRM TEST (VAGINITIS DNA PROBE) ED ONLY Collected: 10/30/2024 4:22 PM Status: F Source: O [facility] TYPE CODE TESTS RESULT OUT OF RANGE REFERENCE UNITS LAB [id number] DNA Probe Sara Species Positive Abnormal Negative LAB [id number] DNA Probe Gardnerella Negative Negative LAB [id number] DNA Probe Trichomonas Negative Negative Performed By: #### TGCED ### # [facility] (DEFAULT) [address] [address] URINE CULTURE Collected: 10/30/2024 4:22 PM Status: F Source: [facility] Order Comment: For indwellin g catheters, specimen collection is acceptable on catheter day 1 and 2 only. Patel top vacutainer. Urine must be to the fill line to process (4mls). If minimum volume, send urine in a yellow top vacutainer tube. Routine cultures are evaluated for significant uropathogens >=100,000 CFU/mL. TYPE CODE TESTS RESULT OUT OF RANGE REFERENCE UNITS LAB 09554-5 Amikacin [Susceptibility] 2 Unknown ug/mL LAB 63999-3 Ampicillin [Susceptibility] >=32 Resistant ug/mL LAB 99169-3 Ampicillin+Sulba ctam [Susceptibility] 16 Increased ug/mL LAB 38009-9 ceFAZolin [Susceptibility] >= Resistant ug/mL Result Comment: Cefazolin greer sceptibility results can be inferred to the following oral cephalosporins: cephalexin, cefuroxime, and cefdinir. LAB 15302-2 Cefepime [Susceptibility] <= Unknown ug/mL LAB 73003-3 cefTRIAXone [Susceptibility] 4 Resistant ug/mL LAB 81862-6 Ciprofloxacin [Susceptibility] <= Unknown ug/mL LAB 24933-6 Ertapenem [Susceptibility] <= Unknown ug/mL LAB 07348-1 Gentamicin [Susceptibility] <= Unknown ug/mL LAB 19874-4 Nitrofurantoin [Susceptibility] 32 Unknown ug/mL LAB 41935-6 Piperacillin+Garret obactam [Susceptibility] <= Unknown ug/mL LAB 25737-2 Trimethoprim+Sul famethoxazole [Susceptibility] <= Unknown ug/mL LAB 68886-2 levoFLOXacin [Susceptibility] <= Unknown ug/mL Performed By: #### UR #### [facility] (DEFAULT) [address] [place] [address] ABDOMEN PELVIS W IV CONTRAST Observed: 10/29/2024 2:50 PM Status: F Source: [facility] EXAMINATION: CT OF THE ABDOMEN AND PELVIS WITH CONTRAST 10/29/2024 12:51 pm TECHNIQUE: CT of the abdomen and pelvis was performed with the administration of intravenous contrast. Multiplanar reformatted images are provided for review. Automated exposure control, iterative reconstruction, and/or weight based adjustment of the mA/kV was utilized to reduce the radiation dose to as low as reasonably achievable. COMPARISON: None. HISTORY: ORDERING SYSTEM PROVIDED HISTORY: upper pain TECHNOLOGIST PROVIDED HISTORY: upper pain Decision Support Exception - unselect if not a suspected or confirmed emergency medical condition->Emergency Medical Condition (MA) Reason for Exam: upper pain Additional signs and symptoms: Pt c/o abd pain, concerned about her liver due to "drinks a lot" FINDINGS: Lower Chest: Lung bases clear. No free air. Heart enlarged. Organs: Normal appearing liver, gallbladder, spleen, pancreas adrenals and kidneys. No evidence of nephrolithiasis or hydronephrosis. Normal appearing ureters. GI/Bowel: Normal appearing appendix. Moderate stool at nondistended colon. Normal appearing stomach and small bowel. Pelvis: Normal appearing bladder and distal ureters. Probable nabothian cyst at the uterine cervix a 1 cm. No adnexal mass. No other bowel findings. Peritoneum/Retroperitoneum: No adenopathy evident. No aneurysm. Bones/Soft Tissues: No evidence of osseous abnormality. Small fat containing umbilical hernia. IMPRESSION: Small fat containing umbilical hernia. Cardiomegaly. Interpreted by: Eligio Elaine MD Signed by: Eligio Elaine MD 10/29/24 Final result VAGINITIS DNA PROBE Collected: 10/30/19 12:20 PM Status: F Source: [facility] TYPE CODE TESTS RESULT OUT OF RANGE REFERENCE UNITS LAB SPVAG(LOINC) Source .VAGINAL SWAB LAB TRVAG(LOINC) Trichomonas NEGATIVE NEG Result Comment: for Trichomo michael Vaginalis LAB GARSP(LOINC) Gardnerella NEGATIVE NEG Result Comment: for Gardnere lla vaginalis LAB CANSP(LOINC) Sara NEGATIVE NEG Result Comment: for Sara sp. Method of testing is a DNA probe intended for detection and identification of Sara species, Gardnerella vaginalis, and Trichomonas vaginalis nucleic acid in vaginal fluid specimens from patients with symptoms of vaginitis/vaginosis. Performed By: #### VAGP #### [facility] [address] [place] [address] Procurement Officer: Wilfrid Ortez DO URINALYSIS, ROUTINE Collected: 10/30/19 25 12:10 PM Status: F Source: [facility] TYPE CODE TESTS RESULT OUT OF RANGE REFERENCE UNITS LAB UCO(LOINC) Color Yellow YEL LAB UTU(LOINC) Clarity, Urine Clear CLEAR LAB UGL(LOINC) Glucose,Semi- qnt,Ur NEGATIVE NEG mg/dL LAB UBI(LOINC) Bilirubin, SemiQt,Ur NEGATIVE NEG LAB UKE(LOINC) Ketones, Urine NEGATIVE NEG mg/dL LAB USG(LOINC) Spec. [place],Ur 1.022 1.000-1.030 LAB UHB(LOINC) Blood, Urine NEGATIVE NEG LAB UPH(LOINC) PH,Ur 6.5 5.0-8.0 LAB UPR(LOINC) Protein, Semi-qnt,Ur NEGATIVE NEG mg/dL LAB UUR(LOINC) Urobilinogen, Ur Normal 0.0-1.0 EU/dL LAB UNI(LOINC) Nitrite,Ur NEGATIVE NEG LAB ULE(LOINC) Leukocyte Esterase TRACE Abnormal NEG Performed By: #### UHCG, UA, UMICAO #### [facility] [address] [place] [address] Procurement Officer: Wilfrid Ortez DO HCG, ,URINE Collected: 025 12:10 PM Status: F Source: [facility] TYPE CODE TESTS RESULT OUT OF RANGE REFERENCE UNITS LAB UHCG(LOINC) HCG, ,Ur ine NEGATIVE NEG Result Comment: Specimens wi th hCG levels near the threshold of the test (25 mIU/mL) may give a negative or indeterminate result. In such cases, another test should be performed with a new specimen in 48-72 hours. If early is suspected clinically in this setting, correlation with quantitative serum b-hCG level is suggested. Performed By: #### BREANNA RIOS, RIZWAN #### [facility] [address] [place] [address] Procurement Officer: Wilfrid Ortez DO URINALYSIS,MICRO Collected: 12:10 PM Status: F Source: [facility] TYPE CODE TESTS RESULT OUT OF RANGE REFERENCE UNITS LAB UWBC(LOINC) Urine WBC's 6 TO 9 Abnormal R05 /HPF LAB URBC(LOINC) Urine RBC's 0 TO 2 R02 /HPF LAB CAST(LOINC) Casts 0 TO 2 Abnormal NONE /LPF LAB EPITH(LOINC) Epithelial cells 3 to 5 /HPF LAB BACT(LOINC) Bacteria FEW Abnormal NONE Performed By: #### GABRIEL, BREANNA, RIZWAN #### [facility] [address] [place] [address] Procurement Officer: Wilfrid Ortez DO CBC WITH DIFF Collected: 10/29/2024 12:07 PM Status: F Source: [facility] TYPE CODE TESTS RESULT OUT OF RANGE REFERENCE UNITS LAB WBC(LOINC) WBC Count 8.4 3.5-11.0 k/uL LAB RBC(LOINC) RBC Count 4.44 3.95-5.11 m/uL LAB HGB(LOINC) Hemoglobin 13.3 12.0-16.0 g/dL LAB HCT(LOINC) Hematocrit 40.9 36.0-46.0 % LAB MCV(LOINC) MCV 92.1 80.0-100.0 fL LAB MCH(LOINC) MCH 30.0 26.0-34.0 pg LAB MCHC(LOINC) MCHC 32.5 31.0-37.0 g/dL LAB RDW(LOINC) RDW 12.6 11.5-14.9 % LAB PLT(LOINC) Platelet Count 333 150-450 k/uL LAB MPVX(LOINC) MPV 9.9 8.0-13.5 fL LAB NRBCS(LOINC) NRBC Automated 0.0 0 per 100 WBC LAB SEG(LOINC) Neutrophil (Seg) 50 36-66 % LAB LYM(LOINC) Lymphocyte 35 24-44 % LAB MON(LOINC) Monocyte 9 3-12 % LAB EO(LOINC) Eosinophil 5 High 0-4 % LAB BASO(LOINC) Basophil 1 0-2 % LAB IGRAN(LOINC) Immature Granulocyte 0 0 % LAB ASEG(LOINC) Abs.Neutrophil (Seg) 4.25 1.50-8.10 k/uL LAB ALYM(LOINC) Abs. Lymph 2.93 1.10-3.70 k/uL LAB AMONO(LOINC) Abs. Monocyte 0.75 0.10-1.20 k/u L LAB AEO(LOINC) Abs. Eosinophil 0.39 0.00-0.44 k/u L LAB ABASO(LOINC) Abs. Basophil 0.05 0.00-0.20 k/u L LAB AIGRAN(LOINC) Abs.Imm.Granulo cyte <0.03 0.00-0.30 k/uL Performed By: #### LIP, CDP, MG, CP #### [facility] [address] [place] [address] Procurement Officer: Wilfrid Ortez DO COMP METABOLIC PROF Collected: 10/30/19 25 12:07 PM Status: F Source: [facility] TYPE CODE TESTS RESULT OUT OF RANGE REFERENCE UNITS LAB NA(LOINC) NA (Sodium) 142 136-145 mmol/L LAB K(LOINC) K (Potassium) 3.8 3.7-5.3 mmol/L LAB CL(LOINC) Chloride 106 98-107 mmol/L LAB HCO(LOINC) CO2 23 20-31 mmol/L LAB GAP(LOINC) Anion Gap 13 9-16 mmol/L LAB GLU(LOINC) Glucose 97 74-99 mg/dL LAB BUN(LOINC) BUN (Urea N) 7 6-20 mg/dL LAB CRE(LOINC) Creatinine 0.6 Low 0.7-1.2 mg/dL LAB EGFR(LOINC) eGFR >90 >60 mL/min/1. 73m2 Result Comment: These results are not intended for use in patients <18 years of age. eGFR results are calculated without a race factor using the 2020 CKD-EPI equation. Careful clinical correlation is recommended, particularly when comparing to results calculated using previous equations. The CKD-EPI equation is less accurate in patients with extremes of muscle mass, extra-renal metabolism of creatine, excessive creatine ingestion, or following therapy that affects renal tubular secretion. LAB CA(LOINC) Calcium 9.4 8.6-10.4 mg/dL LAB TP(LOINC) Protein, Total 7.8 6.6-8.7 g/dL LAB ALB(LOINC) Albumin 4.2 3.5-5.2 g/dL LAB TBIL(LOINC) Bilirubin, Total 0.6 0.0-1.2 mg/dL LAB ALP(LOINC) Alkaline Phos 74 35-104 U/L LAB ALT(LOINC) ALT 12 10-35 U/L LAB AST(LOINC) AST 24 10-35 U/L Performed By: #### LIP, CDP, MG, CP #### [facility] [address] [place] [address] Procurement Officer: Wilfrid Ortez DO LIPASE Collected: 5 12:07 PM Status: F Source: [facility] TYPE CODE TESTS RESULT OUT OF RANGE REFERENCE UNITS LAB LIP(LOINC) Lipase 22 13-60 U/L Performed By: #### LIP, CDP, MG, CP #### [facility] [address] [place] [address] Procurement Officer: Wilfrid Ortez DO MAGNESIUM Collected: 5 12:07 PM Status: F Source: [facility] TYPE CODE TESTS RESULT OUT OF RANGE REFERENCE UNITS LAB MG(LOINC) Magnesium 1.7 1.6-2.6 mg/dL Performed By: #### LIP, CDP, MG, CP #### [facility] [address] [place] [address] Procurement Officer: Wilfrid Ortez DO ED NOTE Observed: 10/12/2024 4:36 PM Status: COMPLETED Source: [facility] HNO ID: [id number] Author: RADHA SKELTON RN Service: ? Author Type: Registered Nurse Type: ED Notes Filed: 10/12/2024 16:37 Note Text: DC instructions reviewed with Pt, acknowledged verbally. No further c/o voiced at this time. Discharged alert and ambulatory. ED PROV NOTE Observed: 10/12/2024 3:44 PM Status: COMPLETED Source: [facility] HNO ID: [id number] Author: CHACHA DEMARCO MD Service: ? Author Type: Physician Type: ED Provider Notes Filed: 10/12/2024 15:59 Note Text: ED Provider Note Patient Name: Dhaval Moon : 2000 SERVICE DATE: 10/12/24 History Patient presents with: High Blood Sugar This is a 24-year-old female with a past medical history of methamphetamine use, alcohol use, hypertension presenting from [facility]. She states that they are not giving her her Keflex for her UTI nor her Protonix for her GERD. She states that she wants to go through alcohol detox but does not want to stay at that facility. She has been there a week. The patient states that she is originally from [place]. She was up in [place] with her boyfriend. He is currently in intermediate for shoplifting. She was acutely intoxicated and taken to a hospital in [place]. She was transferred from there to [facility]. The patient currently has no complaints at this time other than she would like to be transferred to a different facility. PAST MEDICAL HISTORY Diagnosis Date Alcoholism (HCC) HTN (hypertension) Liver disease No past surgical history on file. No family history on file. Social History[1] ALLERGIES Allergen Reactions Penicillins Hives Other reaction(s): Hives Review of Systems All other systems reviewed and are negative. Physical Exam Vitals [10/12/24 1341] BP Pulse Temp Temp src Resp SpO2 Weight Height 126/77 86 36.8 ?C (98.2 ?F) Oral 18 98 % 111.1 kg (245 lb) 1.549 m (5' 1") Physical Exam Vitals and nursing note reviewed. Constitutional: Appearance: Normal appearance. She is well-developed. HENT: Head: Normocephalic and atraumatic. Eyes: Extraocular Movements: Extraocular movements intact. Pupils: Pupils are equal, round, and reactive to light. Cardiovascular: Rate and Rhythm: Normal rate and regular rhythm. Heart sounds: Normal heart sounds. Pulmonary: Effort: Pulmonary effort is normal. Breath sounds: Normal breath sounds. Abdominal: General: Bowel sounds are normal. Palpations: Abdomen is soft. Tenderness: There is no abdominal tenderness. Musculoskeletal: General: No swelling or tenderness. Normal range of motion. Cervical back: Normal range of motion and neck supple. Skin: General: Skin is warm and dry. Neurological: General: No focal deficit present. Mental Status: She is alert and oriented to person, place, and time. Psychiatric: Mood and Affect: Mood normal. Behavior: Behavior normal. Thought Content: Thought content normal. Judgment: Judgment normal. Diagnostic Testing ED Labs Ordered and Reviewed GLUCOSE, BLOOD (POC) Procedures ED Course / Clinical Impression Clinical Impressions as of 10/12/24 2673 Alcohol abuse Drug abuse (HCC) MDM / Disposition / Plan This is a 24-year-old female [facility]. She states she has been there about a week for alcohol rehab. She originally is from [place] and was up in [place] with her boyfriend who was put in intermediate for shoplifting. At that time she was taken to a hospital in [place] and then transferred to [facility]. She has no complaints other than they are not caring for her at the facility. She states they are not giving her her Keflex for her UTI or her Protonix for her gastroesophageal reflux. She wants to be transferred to another facility. I spoke with Tahira from [facility] who states that she will look into transferring her to either [facility] or another facility. The patient is accepted at [facility]. She is discharged from the emergency department. Differential Diagnoses - Alcohol abuse is more likely for the following reason(s): suggested by HANDP - Methamphetamine abuse is more likely for the following reason(s): suggested by HANDP Disposition The patient was discharged. See MDM narrative Counseled patient regarding suspected diagnosis. SIGNATURE: Chacha Demarco MD - [1] Social History Tobacco Use Smoking status: Every Day Current packs/day: 0.50 Average packs/day: 0.5 packs/day for 5.0 years (2.5 ttl pk-yrs) Types: Cigarettes Smokeless tobacco: Never Vaping Use Vaping status: Never Used Substance and Sexual Activity Alcohol use: Yes Comment: relapsed, was drinking past few days Drug use: Yes Frequency: 1.0 times per week Types: Marijuana, Crack Cocaine Comment: used coke with friend yesterday Sexual activity: Not Currently CHACHA DEMARCO 10/12/24 1559 ED NOTE Observed: 10/12/2024 2:04 PM Status: COMPLETED Source: [facility] ID: [id number] Author: RADHA SKELTON, RN Service: ? Author Type: Registered Nurse Type: ED Notes Filed: 10/12/2024 14:06 Note Text: Pt states that [facility] has taken her "phone and belongings, won't give them back and won't give me my medications". Pt endorses that she feels "like I'm a hostage". ED NOTE Observed: 10/12/2024 1:50 PM Status: COMPLETED Source: [facility] ID: [id number] Author: RADHA SKELTON RN Service: ? Author Type: Registered Nurse Type: ED Notes Filed: 10/12/2024 13:50 Note Text: Pt has hives on bilat arms and legs. ED NOTE Observed: 10/12/2024 1:49 PM Status: COMPLETED Source: [facility] ID: [id number] Author: BARRY LAL RN Service: ? Author Type: Registered Nurse Type: ED Notes Filed: 10/12/2024 13:49 Note Text: Bed: ED-09 Expected date: Expected time: Means of arrival: [facility]/EMS Comments: Euc (dizziness/high blood sugar) ED NOTE Observed: 10/12/2024 1:46 PM Status: COMPLETED Source: [facility] ID: [id number] Author: RADHA SKELTON RN Service: ? Author Type: Registered Nurse Type: ED Notes Filed: 10/12/2024 13:49 Note Text: Pt presents to ED via EMS for c/o hyperglycemia per [facility] ("BGL IN 400's"). Pt denies having diabetes, EMS BGL was 129. Pt endorses "facility has not been giving her her medications". CHLAMYDIA/GC,DNA AMP Collected: 025 7:02 PM Status: F Source: [facility] TYPE CODE TESTS RESULT OUT OF RANGE REFERENCE UNITS LAB SWCT(LOINC) Chlamydia Probe NEGATIVE NEG Result Comment: CHLAMYDIA TR ACHOMATIS DNA not detected by nucleic acid amplification. This test is intended for medical purposes only and is not valid for the evaluation of suspected sexual abuse or for other forensic purposes. In certain contexts, culture may be required to meet applicable laws and regulations for diagnosis of C. trachomatis and N. gonorrhoeae infections. Per 2014 CDC recommendations, this test does not include confirmation of positive results by an alternative nucleic acid target. LAB SWNG(LOINC) Gonorrhea Probe NEGATIVE NEG Result Comment: NEISSERIA GO NORRHOEAE DNA not detected by nucleic acid amplification. This test is intended for medical purposes only and is not valid for the evaluation of suspected sexual abuse or for other forensic purposes. In certain contexts, culture may be required to meet applicable laws and regulations for diagnosis of C. trachomatis and N. gonorrhoeae infections. Per 2014 CDC recommendations, this test does not include confirmation of positive results by an alternative nucleic acid target. Performed By: #### SWCGP ### # [address] [address] Procurement Officer: Jeffrey Parra MD VAGINITIS DNA PROBE Collected: 10/06/19 25 7:02 PM Status: F Source: [facility] TYPE CODE TESTS RESULT OUT OF RANGE REFERENCE UNITS LAB SPVAG(LOINC) Source .VAGINAL SWAB LAB TRVAG(LOINC) Trichomonas NEGATIVE NEG Result Comment: for Trichomo michael Vaginalis LAB GARSP(LOINC) Gardnerella POSITIVE Abnormal NEG Result Comment: for Gardnere lla vaginalis LAB CANSP(LOINC) Sara NEGATIVE NEG Result Comment: for Sara sp. Method of testing is a DNA probe intended for detection and identification of Sara species, Gardnerella vaginalis, and Trichomonas vaginalis nucleic acid in vaginal fluid specimens from patients with symptoms of vaginitis/vaginosis. Performed By: #### VAGP #### [facility] [address] [place] [address] Procurement Officer: Wilfrid Ortez DO CBC WITH DIFF Collected: 10/05/2024 6:50 PM Status: F Source: [facility] TYPE CODE TESTS RESULT OUT OF RANGE REFERENCE UNITS LAB WBC(LOINC) WBC Count 6.2 3.5-11.0 k/uL LAB RBC(LOINC) RBC Count 3.88 Low 3.95-5.11 m/uL LAB HGB(LOINC) Hemoglobin 11.8 Low 12.0-16.0 g/dL LAB HCT(LOINC) Hematocrit 36.4 36.0-46.0 % LAB MCV(LOINC) MCV 93.8 80.0-100.0 fL LAB MCH(LOINC) MCH 30.4 26.0-34.0 pg LAB MCHC(LOINC) MCHC 32.4 31.0-37.0 g/dL LAB RDW(LOINC) RDW 13.0 11.5-14.9 % LAB PLT(LOINC) Platelet Count 276 150-450 k/uL LAB MPVX(LOINC) MPV 10.0 8.0-13.5 fL LAB NRBCS(LOINC) NRBC Automated 0.0 0 per 100 WBC LAB SEG(LOINC) Neutrophil (Seg) 45 36-66 % LAB LYM(LOINC) Lymphocyte 44 24-44 % LAB MON(LOINC) Monocyte 9 3-12 % LAB EO(LOINC) Eosinophil 2 0-4 % LAB BASO(LOINC) Basophil 0 0-2 % LAB IGRAN(LOINC) Immature Granulocyte 0 0 % LAB ASEG(LOINC) Abs.Neutrophil (Seg) 2.80 1.50-8.10 k/uL LAB ALYM(LOINC) Abs. Lymph 2.75 1.10-3.70 k/uL LAB AMONO(LOINC) Abs. Monocyte 0.53 0.10-1.20 k/u L LAB AEO(LOINC) Abs. Eosinophil 0.11 0.00-0.44 k/u L LAB ABASO(LOINC) Abs. Basophil <0.03 0.00-0.20 k/u L LAB AIGRAN(LOINC) Abs.Imm.Granulo cyte <0.03 0.00-0.30 k/uL Performed By: #### CDP, HCG, ALCB, CP, LIP #### [facility] [address] [facility] [place] [address] Procurement Officer: Wilfrid Ortez DO HCG SCREEN, BLOOD Collected: 6:50 PM Status: F Source: [facility] TYPE CODE TESTS RESULT OUT OF RANGE REFERENCE UNITS LAB HCG(LOINC) HCG Screen, Blood NEGATIVE NEG Result Comment: Specimens wi th hCG levels near the threshold of the test (25 mIU/mL) may give a negative or indeterminate result. In such cases, another test should be performed with a new specimen in 48-72 hours. If early is suspected clinically in this setting, correlation with quantitative serum b-hCG level is suggested. Performed By: #### CDP, HCG, ALCB, CP, LIP #### [facility] [address] [facility] [place] [address] Procurement Officer: Wilfrid Ortez DO ETHANOL ALCOHOL Collected: 10/05/2024 6:50 PM Status : F Source: [facility] TYPE CODE TESTS RESULT OUT OF RANGE REFERENCE UNITS LAB ALC(LOINC) Ethanol 140 High <10 mg/dL LAB ETP(LOINC) Ethanol percent 0.140 High <0.010 % Performed By: #### CDP, HCG, ALCB, CP, LIP #### [facility] [address] [facility] [place] [address] Procurement Officer: Wilfrid Ortez DO COMP METABOLIC PROF Collected: 10/06/19 6:50 PM Status: F Source: [facility] TYPE CODE TESTS RESULT OUT OF RANGE REFERENCE UNITS LAB NA(LOINC) NA (Sodium) 143 136-145 mmol/L LAB K(LOINC) K (Potassium) 3.6 Low 3.7-5.3 mmol/L LAB CL(LOINC) Chloride 107 98-107 mmol/L LAB HCO(LOINC) CO2 23 20-31 mmol/L LAB GAP(LOINC) Anion Gap 13 9-16 mmol/L LAB GLU(LOINC) Glucose 95 74-99 mg/dL LAB BUN(LOINC) BUN (Urea N) 7 6-20 mg/dL LAB CRE(LOINC) Creatinine 0.6 Low 0.7-1.2 mg/dL LAB EGFR(LOINC) eGFR >90 >60 mL/min/1. 73m2 Result Comment: These results are not intended for use in patients <18 years of age. eGFR results are calculated without a race factor using the 2020 CKD-EPI equation. Careful clinical correlation is recommended, particularly when comparing to results calculated using previous equations. The CKD-EPI equation is less accurate in patients with extremes of muscle mass, extra-renal metabolism of creatine, excessive creatine ingestion, or following therapy that affects renal tubular secretion. LAB CA(LOINC) Calcium 8.5 Low 8.6-10.4 mg/dL LAB TP(LOINC) Protein, Total 6.9 6.6-8.7 g/dL LAB ALB(LOINC) Albumin 3.7 3.5-5.2 g/dL LAB TBIL(LOINC) Bilirubin, Total 0.5 0.0-1.2 mg/dL LAB ALP(LOINC) Alkaline Phos 90 35-104 U/L LAB ALT(LOINC) ALT 9 Low 10-35 U/L LAB AST(LOINC) AST 18 10-35 U/L Performed By: #### CDP, HCG, ALCB, CP, LIP #### [facility] [address] [facility] [place] [address] Procurement Officer: Wilfrid Ortez DO LIPASE Collected: 6:50 PM Status: F Source: [facility] TYPE CODE TESTS RESULT OUT OF RANGE REFERENCE UNITS LAB LIP(LOINC) Lipase 18 13-60 U/L Performed By: #### CDP, HCG, ALCB, CP, LIP #### [facility] [address] [facility] [place] [address] Procurement Officer: Wilfrid Ortez DO UA W/REFLEX CULTURE Collected: 10/05/2024 6:[address] atus: F Source: [facility] TYPE CODE TESTS RESULT OUT OF RANGE REFERENCE UNITS LAB UCO(LOINC) Color Yellow YEL LAB UTU(LOINC) Clarity, Urine Clear CLEAR LAB UGL(LOINC) Glucose,Semi-q nt,Ur NEGATIVE NEG mg/dL LAB UBI(LOINC) Bilirubin, SemiQt,Ur NEGATIVE NEG LAB UKE(LOINC) Ketones, Urine TRACE Abnormal NEG mg/dL LAB USG(LOINC) Spec. [place],Ur 1.021 1.000-1.030 LAB UHB(LOINC) Blood, Urine LARGE Abnormal NEG LAB UPH(LOINC) PH,Ur 6.5 5.0-8.0 LAB UPR(LOINC) Protein, Semi-qnt,Ur 1+ Abnormal NEG mg/dL LAB UUR(LOINC) Urobilinogen,U r ELEVATED 0.0-1.0 EU/dL LAB UNI(LOINC) Nitrite,Ur NEGATIVE NEG LAB ULE(LOINC) Leukocyte Esterase SMALL Abnormal NEG Performed By: #### CARL CHEUNG AO, UAX #### [facility] [address] [facility] [place] [address] Procurement Officer: Wilfrid Ortez DO URINALYSIS,MICRO Collected: 6:40 PM Status: F Source: [facility] TYPE CODE TESTS RESULT OUT OF RANGE REFERENCE UNITS LAB UWBC(LOINC) Urine WBC's 10 TO 20 Abnormal R05 /HPF LAB URBC(LOINC) Urine RBC's 51 TO 100 Abnormal R02 /HPF LAB CAST(LOINC) Casts 0 TO 2 Abnormal NONE /LPF LAB EPITH(LOINC) Epithelial cells 3 to 5 /HPF LAB BACT(LOINC) Bacteria FEW Abnormal NONE Performed By: #### JONATAN, CARL AO, UAX #### [facility] [facility] [place] [address] Procurement Officer: Wilfrid Ortez DO DRUG SCR, ABUSE, UR Collected: 10/05/2024 6:[address] atus: F Source: [facility] TYPE CODE TESTS RESULT OUT OF RANGE REFERENCE UNITS LAB AMPH(LOINC) Amphetamine(s),U r NEGATIVE NEG Result Comment: Cutoff: 1000 ng/mL LAB RODRI(LOINC) Barbiturate(s),U r POSITIVE Abnormal NEG Result Comment: Cutoff: 200 ng/ml LAB LEX(LOINC) Benzodiazepine(s ) POSITIVE Abnormal NEG Result Comment: Cutoff: 200 ng/ml LAB BE(LOINC) Cocaine Metabolite NEGATIVE NEG Result Comment: Cutoff: 300 ng/ml LAB METH(LOINC) Methadone NEGATIVE NEG Result Comment: Cutoff: 300 ng/ml LAB OPIA(LOINC) Opiate(s), Ur NEGATIVE NEG Result Comment: Cutoff: 300 ng/ml LAB PCP(LOINC) Phencyclidine, Ur NEGATIVE NEG Result Comment: Cutoff: 25 n g/ml LAB THC(LOINC) Cannabinoid(s),U r POSITIVE Abnormal NEG Result Comment: Cutoff: 50 n g/ml LAB UOXY(LOINC) Oxycodone, Urine NEGATIVE NEG Result Comment: Cutoff: 100 ng/ml LAB UFENT(LOINC) Fentanyl, Urine NEGATIVE NEG Result Comment: Cutoff: 5 ng /ml LAB DAUII(LOINC) Interpretive Info This method is a screening test to detect only these drug classes as part of a Result Comment: medical work up. Confirmatory testing by another method should be ordered if clinically indicated. Performed By: #### JONATAN, UMIC AO, UAX #### [facility] [address] [facility] [place], [place] [id number] Procurement Officer: Wilfrid Ortez DO CULT,URINE Observed: 10/05/2024 6:40 PM Status: F Source: [facility] Specimen Description .CLEAN CATCH URINE Culture PROTEUS MIRABILIS 10 to 50,000 CFU/ML Report Status FINAL 10/08/2024 SUSCEPTIBILITY Organism PROTEUS MIRABILIS Method SAVITA Ampicillin <=2 SUSCEPTIBLE Cefazolin (Non-Urine) 4 INTERMEDIATE Cefazolin (Urine) 4 SUSCEPTIBLE Urine specific interpretations are for uncomplicated UTIs only. Ceftriaxone <=0.25 SUSCEPTIBLE Gentamicin <=1 SUSCEPTIBLE Levofloxacin <=0.12 SUSCEPTIBLE Nitrofurantoin 128 RESISTANT Piperacillin/Tazobactam <=4 SUSCEPTIBLE Trimethoprim/Sulfa <=20 SUSCEPTIBLE Performed By: #### URC #### [facility] [address] [facility] [place] [address] Procurement Officer: Wilfrid Ortez DO Repair Report [employer] [address] [place] [id number] Procurement Officer: Jeffrey Parra MD ED PROV NOTE Observed: 10/04/2024 5:40 AM Status: COMPLETED Source: [facility] PCP - Anthony Booth MD Language assistance: N/A - [place] Romansh speaker Chief Complaint Patient presents with Resources HPI, MDM, & ED COURSE The patient is a 23-year-old female who comes to the emergency department requesting placement in a detox facility. Patient states that she is drinking on a daily basis and has not been satisfied with the previous place that she has been referred to for detox. She denies any particular physical discomfort. She reports that her last drink was about an hour before coming into the emergency arm. I do note documentation that she has been had several last few days with similar complaints. I am told by staff that the patient is insistent that she be allowed to go to a detox facility along with her significant other who is present here today. The patient has a strong odor of alcohol on her and her behaviors are generally consistent with alcohol intoxication. Her alcohol level is just over 170, and her GGT is mildly elevated. The patient on a medical hold and will have the [facility] team evaluate her in the morning. The patient has been instructed regarding symptoms that would require a return visit to the emergency department, otherwise they are encouraged to seek follow-up either with a primary care doctor or with an appropriate specialist. The patient has also been advised to see their primary care doctor for follow up on any non-critical lab results, abnormal vital signs (including blood pressure), or other concerns not requiring emergent evaluation. SHARED DECISION MAKING: Throughout the ED visit, decisions regarding diagnostic testing, treatment options, and disposition were discussed with the patient and/or family. As much as reasonably possible, they were given opportunities to ask questions, express any concerns, and collaborate on decisions about their care. Radiology studies: Unless expressly stated otherwise above, all radiology results are based on the report provided by the radiologist. IMPRESSION 1. Acute alcoholic intoxication with complication (HCC) NURSING NOTE, MEDICATIONS, ALLERGIES AND VITAL SIGNS REVIEWED Past Medical History Past Medical History: Diagnosis Date Asthma Hypertension Past Surgical History History reviewed. No pertinent surgical history. Social History Social History[1] Physical Exam Initial Vital Signs BP (!) 140/100 (BP Location: Right arm, Patient Position: Lying) Pulse 92 Resp 16 Ht 5' 1" Wt 111.1 kg (245 lb) LMP 09/09/2024 (Approximate) SpO2 96% BMI 46.29 kg/m Vital Signs During ED Visit (as charted by nursing) Patient Vitals for the past 24 hrs: BP Pulse Resp SpO2 Height Weight 10/04/24 0317 (!) 140/100 92 16 96 % 5' 1" 111.1 kg (245 lb) Physical Exam Vitals reviewed. Constitutional: General: She is not in acute distress. Appearance: She is well-developed. She is morbidly obese. She is not ill-appearing. HENT: Head: Normocephalic and atraumatic. Eyes: Conjunctiva/sclera: Conjunctivae normal. Pupils: Pupils are equal, round, and reactive to light. Musculoskeletal: General: Normal range of motion. Pulmonary: Effort: Pulmonary effort is normal. No respiratory distress. Neurological: Mental Status: She is alert. Coordination: Coordination abnormal. Psychiatric: Speech: Speech is slurred. Behavior: Behavior is uncooperative and agitated. Judgment: Judgment is inappropriate. Labs Reviewed GGT - Abnormal; Notable for the following components: Result Value GGT 41 (*) All other components within normal limits ALCOHOL, MEDICAL - Abnormal; Notable for the following components: Alcohol (Medical) 171.0 (*) All other components within normal limits HCG, SERUM, QUALITATIVE - Normal Narrative: Negative: The result is less than or equal to 5 mIU/mL of HCG. DRUGS OF ABUSE SCREEN, URINE Radiographic Imaging (if any) During ED Visit No orders to display Medications Ordered/Given During ED Visit Medications LORazepam (ATIVAN) tablet 1 mg (has no administration in time range) diphenhydrAMINE (BENADRYL) injection 50 mg (has no administration in time range) acetaminophen (TYLENOL) tablet 650 mg (has no administration in time range) LORazepam (ATIVAN) injection 2 mg (has no administration in time range) ziprasidone (GEODON) injection 10 mg (has no administration in time range) Procedures (Please note that portions of this note may have been completed with a voice recognition software.) [1] Social History Tobacco Use Smoking status: Every Day Types: Cigarettes Vaping Use Vaping status: Never Used Substance Use Topics Alcohol use: Yes Drug use: Not Currently Delilah Marie II, MD 10/04/24 0543 AUTHENTICATED BY DELILAH MARIE II, ON 10/04/2024 05:43:12 HCG, SERUM, QUALITATIVE Collected: 10/04/2024 4:43 AM Status: F Source: [facility] Order Comment: Negative: The result is less than or equal to 5 mIU/mL of HCG. TYPE CODE TESTS RESULT OUT OF RANGE REFERENCE UNITS LAB BHCG BETA-HCG QUAL BLOOD Negative Negative Performed By: #### [id number] ### # [facility] [address], [place] [address] Sarath Lloyd M.D. [id number] ALCOHOL, MEDICAL Collected: 10/04/2024 4:43 AM Statu s: F Source: [facility] TYPE CODE TESTS RESULT OUT OF RANGE REFERENCE UNITS LAB ALC RAW ALCOHOL MEDICAL 171.0 High <10.0 mg/dL Performed By: #### [id number] ### # [facility] [address] [place] [address] Sarath Lloyd M.D. [id number] GGT Collected: 4:43 AM Status: F Source: [facility] TYPE CODE TESTS RESULT OUT OF RANGE REFERENCE UNITS LAB GGT GGT 41 High 7-33 U/L Performed By: #### [id number] ### # [facility] [address] [address] Sarath Lloyd M.D. [id number] MAGNESIUM SERPL-MCNC Collected: 025 6:59 AM Status: F Source: [facility] Order Comment: Ref erence Ranges Negative = < 5 mIU/ml Positive = > OR EQUAL TO 5 mIU/ml The concentration of HCG rises rapidly during early . A maximum level of 5,000 to 200,000 mIU/ML is reached at 6-8 weeks. This is followed by a slow decline to levels of 1,000 to 50,000 mIU/ML during the third trimester. This test should be used only for the diagnosis and monitoring of . It should not be used for monitoring of neoplastic conditions including gestational trophoblastic disease (partial mole, complete hydatidiform mole, choriocarcinoma) or other tumors. For monitoring of neoplastic disease a Beta subunit HCG test should be ordered. Results obtained using different immunoassay methods are not interchangeable. Patient results should not be "trended" using values obtained with a different immunoassay method. TYPE CODE TESTS RESULT OUT OF RANGE REFERENCE UNITS LAB [id number] hCG Quant <1 mIU/mL Performed By: #### [id number] # ### [facility] [address] [place] [address] CBC W DIFF PNL,UNSPECIFIED BLD Collected: 10/03/2024 6:59 AM Status: F Source: [facility] TYPE CODE TESTS RESULT OUT OF RANGE REFERENCE UNITS LAB [id number] WBC 8.5 4.6-10.2 K/mcL LAB [id number] RBC 4.16 3.74-5.34 M/mcL LAB [id number] Hemoglobin 12.9 12.0-16.0 g/dL LAB [id number] Hematocrit 39.1 34.3-47.9 % LAB [id number] MCV 94.0 80.0-97.0 FL LAB [id number] MCH 31.0 27.0-34.0 pcg LAB 1886013 MCHC 33.0 30.8-35.3 g/dL LAB 3123972 RDW 13.2 11.0-14.8 % LAB [id number] Platelets 281 142-424 K/mcL LAB [id number] MPV 10.4 6.2-12.1 FL LAB [id number] Neutrophils Relative 65.3 38.1-75.5 % LAB 4449812 Lymphocytes Relative 25.6 17.9-49.6 % LAB [id number] Monocytes Relative 6.5 0.0-12.0 % LAB [id number] Eosinophils Relative 2.2 0.0-7.0 % LAB [id number] Basophils Relative 0.2 0.0-2.0 % LAB [id number] Immature Granulocytes Relative 0.2 0.0-1.2 % LAB 1047580 Neutrophils Absolute 5.54 1.80-7.70 K/mcL LAB [id number] Lymphocytes Absolute 2.17 1.00-4.80 K/mcL LAB [id number] Monocytes Absolute 0.55 0.00-0.90 K/mcL LAB [id number] Eosinophils Absolute 0.19 0.00-0.70 K/mcL LAB 1593388 Basophils Absolute 0.02 0.00-0.20 K/mcL LAB [id number] Immature Granulocytes Absolute 0.02 0.00-0.10 K/mcL Performed By: #### [id number] # ### [facility] [address] [place] [address] ED PROV NOTE Observed: 10/01/2024 9:16 PM Status: COMPLETED Source: [facility] PCP - Anthony Booth MD Chief Complaint Patient presents with Anxiety Shortness of Breath HPI/ Medical Decision Making This is a 23-year-old female who presents today for drug use. The patient has a past medical history including hypertension, asthma, alcohol withdrawal, and methamphetamine use. The patient reports to me that she is here because she would like to detox from crack, meth, and alcohol. Patient states last time she is crack and meth was yesterday. Patient states her last drink alcohol was today at noon. Patient states this morning she drank approximately 2 pints of liquor. Patient states she is gone through alcohol withdrawal before involving seizures and hallucinations. Patient is also concerned that she is . Patient states her last menstrual period was approximately 3 weeks ago. She also has some concerns that her significant other started new medication. See below for patient's vitals. BP (!) 163/104 Pulse (!) 101 Temp 98.5 degrees F (36.9 degrees C) (Oral) Resp (!) 22 Ht 5' 6" Wt 127 kg (280 lb) LMP 09/09/2024 (Approximate) SpO2 95% BMI 45.19 kg/m MDM Data Differential Dx: Differential diagnose includes but is not limited to alcohol withdrawal, polysubstance abuse, need for resources, Work up ordered: Workup ordered includes urinalysis, CBC, UDS, alcohol level, LFT, qualitative, BMP, chest x-ray, EKG ED Course/Update: I saw and evaluated the patient. I reviewed the chief complaint, triage note, past medical/surgical, family and social history.This is a 23-year-old female who presents as above. Their vital signs are unremarkable. On exam she appears in no acute distress. Nontoxic sitting up in the cot. Heart regular rate and rhythm. Lungs are clear to auscultation bilaterally. Abdomen is soft nontender. Active bowel sounds. No rigidity. Patient is afebrile. Patient is normotensive. Patient is oxygenating 95% on room air. MDM: The patient was placed on a CIWA scale and was administered proper medication. The patient's alcohol level is unremarkable. The patient's lab work is unremarkable other than being positive for amphetamines, barbiturates, benzodiazepines, and cocaine. The patient is requesting some IV fluid as well as albuterol to take home as she feels like it helps her anxiety. I did place an order both these things. I did speak to the social security benefits interviewer who is here in the emergency department and she is setting up transportation as well as for the patient to be evaluated at [facility]. The patient will be sent from here to [facility]. MDM Data: Shared decision making utilized and Social Determinants of Health Impacted Treatment/Disposition Barriers to Care: No barriers to care noted. Labs: Patient CBC unremarkable. Patient's BMP unremarkable. Patient's alcohol level negative. Patient's LFT unremarkable. Patient's qualitative negative. Patient's UDS has positive amphetamines, positive pitchers, positive benzodiazepines, positive cocaine, urinalysis unremarkable. Imaging: XR Chest 1 View Final Result No acute pulmonary process. Workstation ID: [id number] . Impressions: 1. Amphetamine use 2. Alcohol use 3. Barbiturate use 4. Cocaine use Patient seen in conjunction with Dr. Estrella. I discussed this patient, history, physical exam, laboratory findings and imaging with my attending physician, who is in agreement with the above assessment and plan. Previous Records Reviewed . Labs Reviewed BASIC METABOLIC PANEL - Abnormal; Notable for the following components: Result Value BUN/Creatinine Ratio 21.2 (*) All other components within normal limits Narrative: [facility] has implemented the eGFR calculation approach that does not have a coefficient for race that conforms to the NKF-ASN Task Force Recommendations. HEPATIC FUNCTION PANEL - Abnormal; Notable for the following components: Total Protein 8.1 (*) All other components within normal limits DRUGS OF ABUSE SCREEN, URINE - Abnormal; Notable for the following components: Amphetamine Screen, Urine Presumptive Positive (*) Barbiturate Screen, Urine Presumptive Positive (*) Benzodiazepine Screen, Urine Presumptive Positive (*) Cocaine, Screen Urine Presumptive Positive (*) All other components within normal limits Narrative: Screen results should be used for treatment purposes only. Specimen will be kept for 2 weeks, if the sample is adequate. Confirmation testing can be initiated by calling the lab within 2 weeks. URINALYSIS - Abnormal; Notable for the following components: Specific [place] 1.028 (*) Ketones, Urine Trace (*) Bacteria, Urine Rare (*) All other components within normal limits Narrative: Microscopic examination is performed on all urinalysis samples and only positive findings are reported. The test for blood on the chemical analytic portion of urinalysis may also be positive due to hemoglobinuria and myoglobinuria and if red blood cells are present they are quantified by microscopic examination. CBC WITH AUTO DIFFERENTIAL - Abnormal; Notable for the following components: RBC 3.86 (*) Hemoglobin 11.8 (*) Hematocrit 35.7 (*) All other components within normal limits HCG, SERUM, QUALITATIVE - Normal Narrative: Negative: The result is less than or equal to 5 mIU/mL of HCG. ALCOHOL, MEDICAL - Normal CBC AND DIFFERENTIAL Narrative: The following orders were created for panel order CBC w/ Diff. Procedure Abnormality Status --------- ------ CBC Auto Differential[[id number]] Abnormal Final result Please view results for these tests on the individual orders. Medications Ordered/Given During ED Visit Medications ondansetron (ZOFRAN) injection 4 mg (has no administration in time range) diazePAM (VALIUM) tablet 5-15 mg (10 mg Oral Given 10/01/242131) Or LORazepam (ATIVAN) injection 4 mg ( Intravenous See Alternative 10/01/242131) Or LORazepam (ATIVAN) tablet 4 mg ( Oral See Alternative 10/01/242131) Or LORazepam (ATIVAN) injection 4 mg ( Intramuscular See Alternative 10/01/242131) sodium chloride 0.9% (NS) bolus 1,000 mL (has no administration in time range) albuterol inhaler 2 puff (has no administration in time range) LORazepam (ATIVAN) tablet 1 mg (1 mg Oral Given 10/01/242132) I saw and evaluated the patient. I have reviewed the chief complaint, triage note, past medical/surgical, family, and social history. END OF MEDICAL DECISION MAKING Physical Exam Initial Vital Signs BP (!) 163/104 Pulse (!) 101 Temp 98.5 degrees F (36.9 degrees C) (Oral) Resp (!) 22 Ht 5' 6" Wt 127 kg (280 lb) LMP 09/09/2024 (Approximate) SpO2 95% BMI 45.19 kg/m Vital Signs During ED Visit (as charted by nursing) Patient Vitals for the past 24 hrs: BP Temp Temp src Pulse Resp SpO2 Height Weight 10/01/242114 (!) 163/104 -- -- (!) 101 -- -- -- -- 10/01/242110 (!) 154/101 98.5 degrees F (36.9 degrees C) Oral (!) 107 (!) 22 95 % -- -- 10/01/242009 (!) 147/89 97.7 degrees F (36.5 degrees C) Oral (!) 105 18 96 % 5' 6" 127 kg (280 lb) Physical Exam Vitals and nursing note reviewed. Constitutional: General: She is not in acute distress. Appearance: She is well-developed and normal weight. Cardiovascular: Rate and Rhythm: Regular rhythm. Tachycardia present. Musculoskeletal: General: Normal range of motion. Pulmonary: Effort: Pulmonary effort is normal. Breath sounds: No decreased breath sounds. Abdominal: General: Abdomen is flat. Palpations: Abdomen is soft. Skin: General: Skin is warm and dry. Neurological: General: No focal deficit present. Mental Status: She is alert and oriented to person, place, and time. Psychiatric: Mood and Affect: Mood normal. Behavior: Behavior normal. Procedures Review of Systems As described above or not pertinent to present emergent encounter. All other systems reviewed and negative. Past Medical History Past Medical History: Diagnosis Date Asthma Hypertension Past Surgical History No past surgical history on file. Family History No family history on file. Social History Social History [1] Allergies Allergies[2] Medications Active Home Medications Medication Sig Take Last Dose On Take Morning of Surgery Comment(s) albuterol (PROVENTIL) 2.5 mg /3 mL (0.083 %) nebulizer solution Take 3 mL (2.5 mg total) by nebulization every 4 (four) hours as needed for wheezing or shortness of breath (cough/wheezing/shortness of breath) . albuterol 90 mcg/actuation inhaler Inhale 1 (one) puff to 2 (two) puffs every 4 to 6 hours as needed for wheezing, shortness of breath or cough . busPIRone (BUSPAR) 10 MG tablet Take 1 (one) tablet (10 mg total) by mouth 3 (three) times a day . famotidine (PEPCID) 40 MG tablet Take 1 (one) tablet (40 mg total) by mouth 2 (two) times a day . fluticasone propion-salmeteroL (ADVAIR HFA) 115-21 mcg/actuation inhaler Inhale 2 (two) puffs 2 (two) times a day Rinse mouth after each use . guaiFENesin (HUMIBID 3) 400 mg Tab Take 1 (one) tablet (400 mg total) by mouth every 6 (six) hours as needed . guanFACINE 2 mg Tb24 Take 1 (one) tablet (2 mg total) by mouth daily . hydrOXYzine (ATARAX) 50 MG tablet Take 1 (one) tablet (50 mg total) by mouth 4 (four) times a day . loratadine (CLARITIN) 10 mg tablet Take 1 (one) tablet (10 mg total) by mouth daily . losartan (COZAAR) 50 MG tablet Take 1 (one) tablet (50 mg total) by mouth daily . magnesium citrate solution Take 296 mL by mouth daily as needed For 3 days . metoprolol tartrate (LOPRESSOR) 25 MG tablet Take 1 (one) tablet (25 mg total) by mouth 2 (two) times a day . OLANZapine (ZYPREXA) 10 MG tablet Take 1 (one) tablet (10 mg total) by mouth every night at bedtime . ondansetron (ZOFRAN-ODT) 4 MG disintegrating tablet Dissolve 1 (one) tablet (4 mg total) on top of tongue every 6 (six) hours as needed . pantoprazole (PROTONIX) 20 MG tablet Take 1 (one) tablet (20 mg total) by mouth daily Take 1 tablet (20 mg) by oral route once daily on empty stomach 30 minutes before first meal of day. . QUEtiapine (SEROQUEL) 50 MG tablet Take 1 (one) tablet (50 mg total) by mouth nightly . senna-docusate (SENNA-S) 8.6-50 mg Take 1 (one) tablet by mouth 2 (two) times a day . Narx Check Score and Data was review on this visit Note: To expedite correspondence this note was generated by [employer] voice recognition software. This note was partially created using voice recognition software and is inherently subject to errors including those of syntax and "sound-alike" substitutions which may escape proofreading. In such instances, original meaning may be extrapolated by contextual derivation. [1] Social History Socioeconomic History Marital status: Single Tobacco Use Smoking status: Every Day Types: Cigarettes Vaping Use Vaping status: Never Used Substance and Sexual Activity Alcohol use: Yes Drug use: Not Currently Social Drivers of Health Financial Resource Strain: Medium Risk (05/22/2020) Received from [facility] Overall Financial Resource Strain (CARDIA) Difficulty of Paying Living Expenses: Somewhat hard Food Insecurity: Food Insecurity Present (09/25/2024) Hunger Vital Sign Worried About Running Out of Food in the Last Year: Sometimes true Ran Out of Food in the Last Year: Often true Transportation Needs: Unmet Transportation Needs (09/25/2024) PRAPARE - Transportation Lack of Transportation (Medical): Yes Lack of Transportation (Non-Medical): Yes Physical Activity: Inactive (01/23/2019) Received from [facility] Exercise Vital Sign Days of Exercise per Week: 0 days Minutes of Exercise per Session: 0 min Housing Stability: High Risk (09/25/2024) Housing Stability Vital Sign Unable to Pay for Housing in the Last Year: Yes Number of Times Moved in the Last Year: 2 Homeless in the Last Year: No [2] Allergies Allergen Reactions Penicillin G Unknown When pt was younger Steve Ireland, BAM 10/01/24 2258 AUTHENTICATED BY STEVE IRELAND, ON 10/01/2024 22:58:21 CBC WITH AUTO DIFFERENTIAL Collected: 10/01/2024 8:46 PM Status: F Source: [facility] TYPE CODE TESTS RESULT OUT OF RANGE REFERENCE UNITS LAB WBC WHITE BLOOD CELL COUNT 7.47 4.50-11.00 K/mcL LAB RBC RED BLOOD CELL COUNT 3.86 Low 4.00-5.20 M/mcL LAB HGB HEMOGLOBIN 11.8 Low 12.0-16.0 g/dL LAB HCT HEMATOCRIT 35.7 Low 36.0-46.0 % LAB MCV MEAN CORPUSCULAR VOLUME 92.5 80.0-100.0 fL LAB MCH MEAN CORPUSCULAR HEMOGLOBIN 30.6 26.0-34.0 pg LAB MCHC MEAN CORPUSCULAR HEMOGLOBIN CONC 33.1 31.0-37.0 g/dL LAB PLT PLATELET COUNT 285 150-400 K/mcL LAB RDW RED CELL DISTRIBUTION WIDTH 12.8 11.6-14.8 % LAB MPV MEAN PLATELET VOLUME 10.0 9.4-12.4 fL LAB NEUTS% NEUTROPHILS RELATIVE PERCENT 51.8 % LAB LYMPHS% LYMPHOCYTES RELATIVE PERCENT 36.5 % LAB MONOS% MONOCYTES RELATIVE PERCENT 10.2 % LAB EOSIN% EOSINOPHILS RELATIVE PERCENT 1.1 % LAB BASO% BASOPHILS RELATIVE PERCENT 0.3 % LAB [id number] IG PERCENT 0.10 % Result Comment: The IG haley eter is the percentage of metamyelocytes, myelocytes and promyelocytes. An immature granulocyte count (IG) of 1% or more suggests the possibility of infection, an IG count of 3% is very likely related to an infection. LAB NEUTSABS NEUTROPHILS ABSOLUTE COUNT 3.87 1.70-7.00 K/mcL LAB LYMPHSABS LYMPHOCYTES ABSOLUTE COUNT 2.73 0.90-4.00 K/mcL LAB MONOSABS MONOCYTES ABSOLUTE COUNT 0.76 0.30-0.90 K/mcL LAB EOSABS EOSINOPHILS ABSOLUTE COUNT 0.08 0.00-0.50 K/mcL LAB BASOABS BASOPHILS ABSOLUTE COUNT 0.02 0.00-0.30 K/mcL LAB 14356 IG ABSOLUTE 0.01 0.00-0.30 K/mcL LAB NRBC AUTO NRBC 0.0 % LAB NRBCAB AUTO NRBC ABS COUNT 0.00 0.00-0.00 K/mcL Performed By: #### [id number] # ### [facility] [address] [place] [address] Easton Petty M.D. [id number] HCG, SERUM, QUALITATIVE Collected: 09/13 8:46 PM Status: F Source: [facility] Order Comment: Negative: The result is less than or equal to 5 mIU/mL of HCG. TYPE CODE TESTS RESULT OUT OF RANGE REFERENCE UNITS LAB BHCG BETA-HCG QUAL BLOOD Negative Negative Performed By: #### [id number] ### # [facility] [address] [place] [address] Easton Petty M.D. [id number] HEPATIC FUNCTION PANEL Collected: 10/01/2024 8:46 PM Status: F Source: [facility] TYPE CODE TESTS RESULT OUT OF RANGE REFERENCE UNITS LAB TP TOTAL PROTEIN 8.1 High 6.0-8.0 g/dL LAB ALB ALBUMIN 4.2 3.2-5.2 g/dL LAB TBIL BILIRUBIN TOTAL 0.4 0.0-1.3 mg/dL LAB DBIL BILIRUBIN, DIRECT 0.2 0.0-0.4 mg/dL LAB ALP ALKALINE PHOSPHATASE 101 40-140 U/L LAB AST AST (SGOT) 26 0-35 U/L U/L LAB ALT ALT 13 0-35 U/L U/L Performed By: #### [id number] ### # [facility] [address] [place] [address] Easton Petty M.D. [id number] ALCOHOL, MEDICAL Collected: 10/01/2024 8:46 PM Statu s: F Source: [facility] TYPE CODE TESTS RESULT OUT OF RANGE REFERENCE UNITS LAB ALC RAW ALCOHOL MEDICAL < <10.0 mg/dL Result Comment: Alcohol cuto ff: <10.00 mg/dL = None Detected Performed By: #### [id number] ### # [facility] [address] [place] [address] Easton Petty M.D. [id number] BASIC METABOLIC PANEL Collected: 10/01/2024 8:46 PM Status: F Source: [facility] Order Comment: [facility] has implemented the eGFR calculation approach that does not have a coefficient for race that conforms to the NKF-ASN Task Force Recommendations. TYPE CODE TESTS RESULT OUT OF RANGE REFERENCE UNITS LAB [id number] SODIUM 138 135-145 mmol/L LAB [id number] POTASSIUM 3.8 3.5-5.1 mmol/L LAB [id number] CHLORIDE 101 98-108 mmol/L LAB BICARB BICARBONATE 23 21-32 mmol/L LAB AG ANION GAP 18 10-20 mmol/L LAB [id number] GLUCOSE 91 65-99 mg/dL LAB BUN BUN 11 8-25 mg/dL LAB CREAT CREATININE 0.52 0.40-1.10 mg/dL LAB GFR EGFR 133 >=60 mL/min/1. 73 m2 Result Comment: Estimated GF R was calculated using the 2020 CKD-EPI creatinine equation. LAB BUNCREAT BUN / CREAT RATIO 21.2 High 10.0-20.0 LAB CA CALCIUM 9.0 8.4-10.2 mg/dL Performed By: #### [id number] ### # [facility] [address] [place] [address] Easton Petty M.D. [id number] URINALYSIS Collected: 5 8:33 PM Status: F Source: [facility] Order Comment: Microscopic e xamination is performed on all urinalysis samples and only positive findings are reported. The test for blood on the chemical analytic portion of urinalysis may also be positive due to hemoglobinuria and myoglobinuria and if red blood cells are present they are quantified by microscopic examination. TYPE CODE TESTS RESULT OUT OF RANGE REFERENCE UNITS LAB URCOLOR COLOR, URINE Yellow Colorle ss, Yellow LAB CLA CLARITY, URINE Clear Clear LAB SG SPECIFIC GRAVITY 1.028 High 1.005-1.025 LAB URPH PH, URINE 6.5 5.0-7.0 LAB URPRO PROTEIN, URINE Negative Negative mg/dL LAB URGLU GLUCOSE, URINE Negative Negative mg/dL LAB KET KETONES, URINE Trace Abnormal Negative mg/dL LAB HELADIO BILIRUBIN, URINE Negative Negative LAB URO UROBILINOGEN, URINE <2.0 <2.0 mg/dL LAB URBLD BLOOD, URINE Negative Negative LAB NIT NITRITE, URINE Negative Negative LAB JUAN LEUKOCYTE ESTERASE, URINE Negative Negative LAB URWBC WBC, URINE 1 0-5 /hpf LAB URRBC RBC, URINE 1 0-3 /hpf LAB BACT BACTERIA, URINE Rare Abnormal None Seen /hpf LAB SQEP SQUAMOUS EPITHELIAL 4 0-4 /hpf LAB MUCS MUCUS, URINE Rare None Se en, Rare /lpf Performed By: #### [id number] ### # [facility] [address] [place], [place] [address] Easton Petty M.D. [id number] DRUGS OF ABUSE SCREEN, URINE Collected: 10/01/2024 8:33 PM Status: F Source: [facility] Order Comment: Screen result s should be used for treatment purposes only. Specimen will be kept for 2 weeks, if the sample is adequate. Confirmation testing can be initiated by calling the lab within 2 weeks. TYPE CODE TESTS RESULT OUT OF RANGE REFERENCE UNITS LAB URAMPH AMPHETAMINE SCREEN, URINE Presumptive Positive Abnormal None Detected Result Comment: Urine Amphet amine Cutoff: < 1000 ng/mL = None Detected LAB URBARB BARBITURATE SCREEN URINE Presumptive Positive Abnormal None Detected Result Comment: Urine Barbit urates Cutoff: < 200 ng/mL = None Detected LAB URBDZ BENZODIAZEPINE SCREEN, URINE Presumptive Positive Abnormal None Detected Result Comment: Urine Benzod iazepine Cutoff: < 200 ng/mL = None Detected LAB URTHC CANNABINOID SCREEN URINE None Detected None Detected Result Comment: Urine Cannab inoids Cutoff: < 50 ng/mL = None Detected LAB URCOC COCAINE, SCREEN URINE Presumptive Positive Abnormal None Detected Result Comment: Urine Cocain e Cutoff: < 300 ng/mL = None Detected LAB URMETH METHADONE SCREEN, URINE None Detected None Detected Result Comment: Urine Methad one Cutoff: < 300 ng/mL = None Detected LAB UROPIATES OPIATE SCREEN URINE None Detected None Detected Result Comment: Urine Opiate s Cutoff: < 300 ng/mL = None Detected LAB UROXY OXYCODONE SCREEN, URINE None Detected None Detected Result Comment: Urine Oxycod one Cutoff: < 100 ng/mL = None Detected LAB URBUP BUPRENORPHINE, URINE None Detected None Detected Result Comment: Urine Bupren orphine Cutoff: < 5 ng/mL = None Detected LAB [address], URINE None Detected None Detected Result Comment: Urine Fentan yl Cutoff: < 1 ng/mL = None Detected Performed By: #### [id number] ### # [facility] [place], [place] [address] Easton Petty M.D. [id number] XR CHEST PA/AP Observed: 10/01/2024 8:15 PM Status: F Source: [facility] Order Comment: Injury/Trauma or Illness?:Illness/Other How long have you had these symptoms (acute/chronic)?:Acute Reason for exam?:sob History of cancer?:. Surgeries, chemotherapy, or radiation?:. Type of Exam?:Initial Additional signs and symptoms?:. EXAMINATION: XR CHEST PA/AP HISTORY: ORDERING SYSTEM PROVIDED HISTORY: sob, TECHNOLOGIST PROVIDED HISTORY: Illness/Other Reason for exam: sob Cancer History: . Surgery, RadiationHistory: . Encounter Type: Initial Additional signs and symptoms: . ORDERING SYSTEM PROVIDED DIAGNOSIS CODES: COMPARISON: None FINDINGS: There are no focal areas of collapse or consolidation. There is no pulmonary edema. The cardiac and mediastinal silhouettes are normal size and contour. There is no pneumothorax or pleural effusion. IMPRESSION: No acute pulmonary process. Workstation ID: [id number] Dictated by: KEYANA SPEAR on MonOct 01, 2024 9:49:45 PM EDT Transcribed by: KEYANA SPEAR on MonOct 01, 2024 9:49:45 PM EDT Finalized by: KEYANA SPEAR on MonOct 01, 2024 9:49:45 PM EDT ED PROCEDURE Observed: 09/28/2024 6:08 AM Status: COMPLETED Source: [facility] Procedure: Splint I personally supervised and inspected the stirrup to the left ankle. Splint placed by RN. The extremity is appropriately immobilized. Patient neurovascularly intact before and after splint application. AUTHENTICATED BY KEYANA KIRK, ON 10/16/2024 15:34:53 ED PROV NOTE Observed: 09/28/2024 5:04 AM Status: COMPLETED Source: [facility] Senior Resident Attestation: I have discussed the case and ED management with the resident/CRISTY. In addition, I have personally introduced myself to the patient, and have taken her history and performed an examination. I agree with the physical findings, management, clinical impression and disposition. BP (!) 106/54 Pulse (!) 111 Temp 98.7 degrees F (37.1 degrees C) (Oral) Resp 18 Ht 5' 1" Wt 115.2 kg (254 lb) LMP 09/09/2024 (Approximate) SpO2 98% BMI 47.99 kg/m Medications diazePAM (VALIUM) tablet 5-15 mg (5 mg Oral Given 09/28/24108) Or LORazepam (ATIVAN) injection 4 mg ( Intravenous See Alternative 09/28/24108) Or LORazepam (ATIVAN) tablet 4 mg ( Oral See Alternative 09/28/24108) Or LORazepam (ATIVAN) injection 4 mg ( Intramuscular See Alternative 09/28/24108) thiamine tablet 200 mg (200 mg Oral Given 09/28/24105) multivitamin (THERAGRAN) per tablet 1 tablet (has no administration in time range) folic acid (FOLVITE) tablet 1 mg (1 mg Oral Given 09/28/24105) ondansetron (ZOFRAN) injection 4 mg (4 mg Intravenous Given 09/27/242054) ketorolac (TORADOL) injection 15 mg (15 mg Intravenous Given 09/27/242054) PHENobarbital injection 143 mg (143 mg Intramuscular Given 09/27/242054) potassium chloride SA (K-DUR,KLOR-CON) CR tablet 20 mEq (20 mEq Oral Given 09/27/242254) sodium chloride 0.9% (NS) bolus 1,000 mL (1,000 mL Intravenous New Bag 09/28/24221) Labs Reviewed ALCOHOL, MEDICAL - Abnormal; Notable for the following components: Result Value Alcohol (Medical) 245.3 (*) All other components within normal limits BASIC METABOLIC PANEL - Abnormal; Notable for the following components: Potassium 3.1 (*) Bicarbonate 20 (*) Calcium 8.2 (*) All other components within normal limits Narrative: [facility] has implemented the eGFR calculation approach that does not have a coefficient for race that conforms to the NKF-ASN Task Force Recommendations. URINALYSIS - Abnormal; Notable for the following components: Bacteria, Urine Rare (*) All other components within normal limits Narrative: Microscopic examination is performed on all urinalysis samples and only positive findings are reported. The test for blood on the chemical analytic portion of urinalysis may also be positive due to hemoglobinuria and myoglobinuria and if red blood cells are present they are quantified by microscopic examination. CBC WITH AUTO DIFFERENTIAL - Abnormal; Notable for the following components: WBC 11.09 (*) RBC 3.54 (*) Hemoglobin 11.0 (*) Hematocrit 33.9 (*) All other components within normal limits HCG, BLOOD, QUANTITATIVE - Normal Narrative: Males and non females: <5 mIU/mL Females during : 3-4 weeks 9-130 mIU/mL 4-5 weeks 75-2600 mIU/mL 5-6 weeks 850-20,800 mIU/mL 6-7 weeks 4000-100,200 mIU/mL 7-12 weeks 11,500-289,000 mIU/mL 12-16 weeks 18,300-137,000 mIU/mL 16-29 weeks 1,400-53,000 mIU/mL 29-41 weeks 940-60,000 mIU/mL HEPATIC FUNCTION PANEL - Normal CBC AND DIFFERENTIAL Narrative: The following orders were created for panel order CBC w/ Diff. Procedure Abnormality Status --------- ------ CBC Auto Differential[[id number]] Abnormal Final result Please view results for these tests on the individual orders. XR Foot Left 3+ Views (Standard) Final Result No acute fracture or dislocation. Workstation ID: [id number] XR Ankle Left 3+ Views (Standard) Final Result No acute fracture or dislocation. Workstation ID: [id number] ED Course as of 09/28/24 0504 MonSep 27, 2024 2305 Evaluated patient. She is resting comfortably. Angle increased on the bed as she was slightly hypoxic at 88%. Saturation proved to 97% after angle increased. Discussed plan of placing stirrup on ankle with her fianc . He responded that he is no longer willing to take her home while she is intoxicated. He is requesting to have her sober here. [AP] ED Course User Index [AP] Ivy Patel DO In brief, patient is a 23-year-old female with past medical history above who presents the emergency department initially for alcohol intoxication and pain to the left foot and ankle. Patient was diagnosed with an ankle sprain and discharged was pending clinical sobriety. On my evaluation, patient was clinically sober go home with her fianc . Patient given return precautions and encouraged to follow-up with primary care provider and pursue alcohol cessation. All questions were answered and the patient agrees to treatment plan. Patient is stable for discharge at this time. Cris Mehta DO (Please note that portions of this note may have been completed with a voice recognition program. Efforts were made to edit the dictations but occasionally words are mis-transcribed.) Cris Mehta DO Resident 09/28/24 0504 AUTHENTICATED BY CRIS MEHTA ON 09/28/2024 05:06:21 URINALYSIS Collected: 8:31 PM Status: F Source: [facility] Order Comment: Microscopic e xamination is performed on all urinalysis samples and only positive findings are reported. The test for blood on the chemical analytic portion of urinalysis may also be positive due to hemoglobinuria and myoglobinuria and if red blood cells are present they are quantified by microscopic examination. TYPE CODE TESTS RESULT OUT OF RANGE REFERENCE UNITS LAB URCOLOR COLOR, URINE Colorless Colorle ss, Yellow LAB CLA CLARITY, URINE Clear Clear LAB SG SPECIFIC GRAVITY 1.008 1.005-1.025 LAB URPH PH, URINE 6.0 5.0-7.0 LAB URPRO PROTEIN, URINE Negative Negative mg/dL LAB URGLU GLUCOSE, URINE Negative Negative mg/dL LAB KET KETONES, URINE Negative Negative mg/dL LAB HELADIO BILIRUBIN, URINE Negative Negative LAB URO UROBILINOGEN, URINE <2.0 <2.0 mg/dL LAB URBLD BLOOD, URINE Negative Negative LAB NIT NITRITE, URINE Negative Negative LAB JUAN LEUKOCYTE ESTERASE, URINE Negative Negative LAB URWBC WBC, URINE 1 0-5 /hpf LAB BACT BACTERIA, URINE Rare Abnormal None Seen /hpf LAB SQEP SQUAMOUS EPITHELIAL 3 0-4 /hpf Performed By: #### [id number] ### # LAB [address] [address] Clarice Adam M.D. [id number] XR FOOT LEFT 3+ VIEWS (STANDARD) Observed: 09/27/2024 8:30 PM Status: F Source: [facility] Order Comment: Injury/Trauma or Illness?:Injury/Trauma How long have you had these symptoms (acute/chronic)?:Acute Reason for exam?:concern for ankle fracture History of cancer?:. Surgeries, chemotherapy, or radiation?:. Type of Exam?:Initial Mechanism of injury?:fall Additional signs and symptoms?:concern for ankle fracture EXAMINATION: XR ANKLE LEFT 3+ VIEWS (STANDARD); XR FOOT LEFT 3+ VIEWS (STANDARD) HISTORY: concern for ankle fracture Injury/Trauma or Illness?:Illness/Other How long have you had these symptoms (acute/chronic)?:Acute Reason for exam?:concern for ankle fracture History of cancer?:. Surgeries, chemotherapy, or radiation?:. ; concern for fracture Injury/Trauma or Illness?:Injury/Trauma How long have you had these symptoms (acute/chronic)?:Acute Reason for exam?:concern for ankle fracture History of cancer?:. Surgeries, chemotherapy, or radiation?:. concern for ankle fracture COMPARISON: Comparison TECHNIQUE: XR ANKLE LEFT 3+ VIEWS (STANDARD); XR FOOT LEFT 3+ VIEWS (STANDARD) FINDINGS: 3 radiographs of the left foot and 3 radiographs of the left ankle were obtained. No acute fracture or dislocation. Joint spaces are well maintained. Ankle mortise is symmetric. Talar dome is normal. Soft tissue swelling around the ankle and dorsal midfoot. No ankle joint effusion. IMPRESSION: No acute fracture or dislocation. Workstation ID: [id number] Dictated by: RICO SIFUENTES on MonSep 27, 2024 9:13:54 PM EDT Transcribed by: RICO SIFUENTES on MonSep 27, 2024 9:13:54 PM EDT Finalized by: RICO SIFUENTES on MonSep 27, 2024 9:13:54 PM EDT XR ANKLE LEFT 3+ VIEWS (STANDARD) Observed: 09/27/2024 8:20 PM Status: F Source: [facility] Order Comment: Injury/Trauma or Illness?:Illness/Other How long have you had these symptoms (acute/chronic)?:Acute Reason for exam?:concern for ankle fracture History of cancer?:. Surgeries, chemotherapy, or radiation?:. Type of Exam?:Initial Additional signs and symptoms?:concern for ankle fracture EXAMINATION: XR ANKLE LEFT 3+ VIEWS (STANDARD); XR FOOT LEFT 3+ VIEWS (STANDARD) HISTORY: concern for ankle fracture Injury/Trauma or Illness?:Illness/Other How long have you had these symptoms (acute/chronic)?:Acute Reason for exam?:concern for ankle fracture History of cancer?:. Surgeries, chemotherapy, or radiation?:. ; concern for fracture Injury/Trauma or Illness?:Injury/Trauma How long have you had these symptoms (acute/chronic)?:Acute Reason for exam?:concern for ankle fracture History of cancer?:. Surgeries, chemotherapy, or radiation?:. concern for ankle fracture COMPARISON: Comparison TECHNIQUE: XR ANKLE LEFT 3+ VIEWS (STANDARD); XR FOOT LEFT 3+ VIEWS (STANDARD) FINDINGS: 3 radiographs of the left foot and 3 radiographs of the left ankle were obtained. No acute fracture or dislocation. Joint spaces are well maintained. Ankle mortise is symmetric. Talar dome is normal. Soft tissue swelling around the ankle and dorsal midfoot. No ankle joint effusion. IMPRESSION: No acute fracture or dislocation. Workstation ID: [id number] Dictated by: RICO SIFUENTES on MonSep 27, 2024 9:13:54 PM EDT Transcribed by: RICO SIFUENTES on MonSep 27, 2024 9:13:54 PM EDT Finalized by: RICO SIFUENTES on MonSep 27, 2024 9:13:54 PM EDT HCG, BLOOD, QUANTITATIVE Collected: 09/27/2024 8:14 P M Status: F Source: [facility] Order Comment: Males and non females: <5 mIU/mL Females during : 3-4 weeks 9-130 mIU/mL 4-5 weeks 75-2600 mIU/mL 5-6 weeks 850-20,800 mIU/mL 6-7 weeks 4000-100,200 mIU/mL 7-12 weeks 11,500-289,000 mIU/mL 12-16 weeks 18,300-137,000 mIU/mL 16-29 weeks 1,400-53,000 mIU/mL 29-41 weeks 940-60,000 mIU/mL TYPE CODE TESTS RESULT OUT OF RANGE REFERENCE UNITS LAB HCGQUAN HCG, QUANTITATIVE < 0-5 mIU/mL Performed By: #### [id number] ### # DH LAB [facility] [place] [address] Clarice Adam M.D. [id number] BASIC METABOLIC PANEL Collected: 09/27/2024 8:14 PM Status: F Source: [facility] Order Comment: [facility] has implemented the eGFR calculation approach that does not have a coefficient for race that conforms to the NKF-ASN Task Force Recommendations. TYPE CODE TESTS RESULT OUT OF RANGE REFERENCE UNITS LAB [id number] SODIUM 141 135-145 mmol/L LAB [id number] POTASSIUM 3.1 Low 3.5-5.1 mmol/L LAB 1837148 CHLORIDE 104 98-108 mmol/L LAB BICARB BICARBONATE 20 Low 21-32 mmol/L LAB AG ANION GAP 20 10-20 mmol/L LAB [id number] GLUCOSE 80 65-99 mg/dL LAB BUN BUN 11 8-25 mg/dL LAB CREAT CREATININE 0.59 0.40-1.10 mg/dL LAB GFR EGFR 129 >=60 mL/min/1. 73 m2 Result Comment: Estimated GF R was calculated using the 2020 CKD-EPI creatinine equation. LAB BUNCREAT BUN / CREAT RATIO 18.6 10.0-20.0 LAB CA CALCIUM 8.2 Low 8.4-10.2 mg/dL Performed By: #### [id number] ### # DH LAB [address] [place] [address] Clarice Adam M.D. [id number] ALCOHOL, MEDICAL Collected: 09/27/2024 8:14 PM Statu s: F Source: [facility] TYPE CODE TESTS RESULT OUT OF RANGE REFERENCE UNITS LAB ALC RAW ALCOHOL MEDICAL 245.3 High <10.0 mg/dL Performed By: #### [id number] ### # LAB [address] [place] [address] Clarice Adam M.D. [id number] CBC WITH AUTO DIFFERENTIAL Collected: 09/27/2024 8:14 PM Status: F Source: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 taper, received 3 doses so far - drowsy on exam and unable to stay awake to engage in conversation - no tremor or diaphoresis, not attending to stimuli, does not appear anxious, HR 98, BP 138/78 - recommend discontinue remaining doses of phenobarbital taper, or at least reduce doses, to prevent complications from oversedation - keep PRN dose available in case symptoms occur - for future admissions consider use of benzodiazepines with CIWA or benzodiazepine taper for first line treatment of alcohol withdrawal - educated patient on kindling effect, risk of severe symptoms increases with each subsequent withdrawal episode - seizure precautions Patient is making an informed decision. Internal and external medical records reviewed. Discussed in detail about the disease process and its management. Discussed risks and benefits of various treatment options and plan of care. Answered patient's questions. Disposition: Substance Use Navigator (SUN) team following and working on discharge plans as appropriate - please refer to their note for further disposition plan Reason for Consult: Medical management of alcohol use disorder. History of Present Illness: Dhaval Moon is a 23 y.o. female who presented to the hospital 09/24 for alcohol intoxication and requesting help to detox. Patient examined at bedside, reports feeling really tired. Unable to keep eyes open and falls asleep during conversation. Does arouse to voice but needs prompted multiple times. Patient gave permission to discuss care with her significant other who is at bedside. He reports patient has been drinking a lot of vodka almost every day. Does some times take 1-2 day breaks and states he does not think she experiences withdrawal in between. Patient is able to report that use has been for about 3 years and she also used to use methamphetamine but was able to stop on her own without issue and no use in over 2 months. She states she does want to discuss treatment when she is able to stay awake. She has no questions or concerns. Substance Use History: Problem Alcohol Withdrawal, Uncomplicated (Hcc) Hx of withdrawal per care everywhere; hallucinations, tremor, anxiety. No hx of seizures or DTs Alcohol Use Disorder Unable to provide detailed history due to drowsiness. Reports significant alcohol use for 3 years, most recently near daily use in large amounts. Methamphetamine Use (Hcc) Cannabis Use, Uncomplicated Social History [1] Past Medical History: Diagnosis Date Asthma Hypertension History reviewed. No pertinent surgical history. History reviewed. No pertinent family history. Allergies reviewed: Penicillin g Home Medications: Outpatient Medications as of 09/25/2024 Medication Sig busPIRone (BUSPAR) 10 MG tablet Take 1 (one) tablet (10 mg total) by mouth 3 (three) times a day . famotidine (PEPCID) 40 MG tablet Take 1 (one) tablet (40 mg total) by mouth 2 (two) times a day . hydrOXYzine (ATARAX) 50 MG tablet Take 1 (one) tablet (50 mg total) by mouth 4 (four) times a day . losartan (COZAAR) 50 MG tablet Take 1 (one) tablet (50 mg total) by mouth daily . metoprolol tartrate (LOPRESSOR) 25 MG tablet Take 1 (one) tablet (25 mg total) by mouth 2 (two) times a day . OLANZapine (ZYPREXA) 10 MG tablet Take 1 (one) tablet (10 mg total) by mouth every night at bedtime . albuterol (PROVENTIL) 2.5 mg /3 mL (0.083 %) nebulizer solution Take 3 mL (2.5 mg total) by nebulization every 4 (four) hours as needed for wheezing or shortness of breath (cough/wheezing/shortness of breath) . albuterol 90 mcg/actuation inhaler Inhale 1 (one) puff to 2 (two) puffs every 4 to 6 hours as needed for wheezing, shortness of breath or cough . fluticasone propion-salmeteroL (ADVAIR HFA) 115-21 mcg/actuation inhaler Inhale 2 (two) puffs 2 (two) times a day Rinse mouth after each use . guaiFENesin (HUMIBID 3) 400 mg Tab Take 1 (one) tablet (400 mg total) by mouth every 6 (six) hours as needed (congestion/mucus relief) . guanFACINE 2 mg Tb24 Take 1 (one) tablet (2 mg total) by mouth nightly . loratadine (CLARITIN) 10 mg tablet Take 1 (one) tablet (10 mg total) by mouth daily . magnesium citrate solution Take 296 mL by mouth See Admin Instructions Take 296 ml oral once as needed as directed for 3 days. . ondansetron (ZOFRAN-ODT) 4 MG disintegrating tablet Dissolve 1 (one) tablet (4 mg total) on top of tongue every 6 (six) hours as needed for nausea . pantoprazole (PROTONIX) 20 MG tablet Take 1 (one) tablet (20 mg total) by mouth daily Take 1 tablet (20 mg) by oral route once daily on empty stomach 30 minutes before first meal of day. . QUEtiapine (SEROQUEL) 50 MG tablet Take 1 (one) tablet (50 mg total) by mouth nightly . senna-docusate (SENNA-S) 8.6-50 mg Take 1 (one) tablet by mouth 2 (two) times a day . traZODone (DESYREL) 50 MG tablet Take 1 (one) tablet (50 mg total) by mouth nightly as needed for sleep . Review of Systems: All systems have been reviewed and are negative except as noted in HPI or above Objective: Vital Signs: BP 138/78 (BP Location: Right arm, Patient Position: Lying) Pulse 98 Temp 98 degrees F (36.7 degrees C) (Oral) Resp 16 Ht 5' 1" Wt 111.4 kg (245 lb 9.5 oz) LMP 09/09/2024 (Approximate) SpO2 95% BMI 46.40 kg/m Physical Exam Vitals reviewed. Constitutional: General: She is not in acute distress. Appearance: She is not diaphoretic. Eyes: General: No scleral icterus. Extraocular Movements: Right eye: No nystagmus. Left eye: No nystagmus. Pulmonary: Effort: Pulmonary effort is normal. Skin: Coloration: Skin is not jaundiced. Neurological: Mental Status: She is oriented to person, place, and time. Motor: No tremor or seizure activity. Coordination: Tvbfio-Royj-Kbqxzy Test normal. Comments: drowsy Psychiatric: Attention and Perception: She does not perceive auditory or visual hallucinations. Mood and Affect: Mood is not anxious. Speech: Speech normal. Behavior: Behavior is cooperative. Laboratory and Additional Data Reviewed: Laboratory 09/25/24 10:32 AM Microbiology 09/25/24 10:32 AM Pathology 09/25/24 10:32 AM Radiology 09/25/24 10:32 AM Cardiology 09/25/24 10:32 AM Medications 09/25/24 10:32 AM Transcriptions 09/25/24 10:32 AM Lab Results Component Value Date BUN 14 09/25/2024 CREATININE <0.20 (L) 09/25/2024 EGFR 09/25/2024 Comment: Estimated GFR was calculated using the 2020 CKD-EPI creatinine equation. ALBUMIN 3.7 09/25/2024 PROT 6.3 09/25/2024 AST 27 09/25/2024 ALT 6 09/25/2024 ALKPHOS 71 09/25/2024 BILITOT 1.0 09/25/2024 Lab Results Component Value Date PROTIME 13.6 09/25/2024 INR 1.0 09/25/2024 PLT 275 09/25/2024 No results found for: "BETAHCGUR" No results found for: "QTC" No results found for: "HEPCAB", "HCVRNA", "HEPBSAB", "HEPBSAG", "HIV1X2", "RPR" No results found for: "AMPHUR", "BARBUR", "BENZUR", "THCUR", "COCAINESUR", "URMETH", "OPIATEUR", "UROXYCODONE", "FENTANYLUR", "BUPUR" Elizabeth Rowland CNP Thank you for allowing us to participate in the care of this patient. Please call [phone] or secure chat me for any questions or concerns related to the problems being addressed by the addiction consult team. Note was not shared with patient: 42 CFR Part 2 Regulations [1] Social History Socioeconomic History Marital status: Single Tobacco Use Smoking status: Every Day Types: Cigarettes Vaping Use Vaping status: Never Used Substance and Sexual Activity Alcohol use: Yes Drug use: Not Currently Social Drivers of Health Financial Resource Strain: Medium Risk (05/22/2020) Received from [facility] Overall Financial Resource Strain (CARDIA) Difficulty of Paying Living Expenses: Somewhat hard Food Insecurity: Food Insecurity Present (09/25/2024) Hunger Vital Sign Worried About Running Out of Food in the Last Year: Sometimes true Ran Out of Food in the Last Year: Often true Transportation Needs: Unmet Transportation Needs (09/25/2024) PRAPARE - Transportation Lack of Transportation (Medical): Yes Lack of Transportation (Non-Medical): Yes Physical Activity: Inactive (01/23/2019) Received from [facility] Exercise Vital Sign Days of Exercise per Week: 0 days Minutes of Exercise per Session: 0 min Housing Stability: High Risk (09/25/2024) Housing Stability Vital Sign Unable to Pay for Housing in the Last Year: Yes Number of Times Moved in the Last Year: 2 Homeless in the Last Year: No AUTHENTICATED BY ELIZABETH ROWLAND, ON 09/25/2024 10:32:12 HEMOGLOBIN A1C Collected: 09/25/2024 5:46 AM Status: F Source: [facility] Order Comment: Normal: 4.2% - 5.6% Increased risk for diabetes: 5.7% - 6.4% Diabetes: >= 6.5% Pediatrics: No established reference range Estimated average glucose: 74-114 mg/dL TYPE CODE TESTS RESULT OUT OF RANGE REFERENCE UNITS LAB GLYHB HEMOGLOBIN A1C 6.1 High 4.2-5.6 % LAB EAG ESTIMATED AVERAGE GLUCOSE 128 High 74-114 mg/dL Performed By: #### [id number] ### # [facility] [place] [address] Clarice Adam M.D. [id number] COMPREHENSIVE METABOLIC PANEL Collected: 09/25/2024 5 :46 AM Status: F Source: [facility] Order Comment: [facility] has implemented the eGFR calculation approach that does not have a coefficient for race that conforms to the NKF-ASN Task Force Recommendations. TYPE CODE TESTS RESULT OUT OF RANGE REFERENCE UNITS LAB [id number] SODIUM 139 135-145 mmol/L LAB [id number] POTASSIUM 3.7 3.5-5.1 mmol/L LAB [id number] CHLORIDE 104 98-108 mmol/L LAB BICARB BICARBONATE 24 21-32 mmol/L LAB AG ANION GAP 15 10-20 mmol/L LAB [id number] GLUCOSE 81 65-99 mg/dL LAB BUN BUN 14 8-25 mg/dL LAB CREAT CREATININE < Low 0.40-1.10 mg/dL LAB GFR EGFR Result Comment: Estimated GF R was calculated using the 2020 CKD-EPI creatinine equation. LAB BUNCREAT BUN / CREAT RATIO Result Comment: Unable to ca lculate; a result component is outside measurable limits. LAB TP TOTAL PROTEIN 6.3 6.0-8.0 g/dL LAB ALB ALBUMIN 3.7 3.2-5.2 g/dL LAB CA CALCIUM 8.8 8.4-10.2 mg/dL LAB ALP ALKALINE PHOSPHATASE 71 40-140 U/L LAB AST AST (SGOT) 27 0-35 U/L U/L LAB ALT ALT 6 0-35 U/L U/L LAB TBIL BILIRUBIN TOTAL 1.0 0.0-1.3 mg/dL Performed By: #### [id number] ### # [facility] [place], [place] [address] Clarice Adam M.D. [id number] MAGNESIUM LEVEL Collected: 5:46 AM Status: F Source: [facility] TYPE CODE TESTS RESULT OUT OF RANGE REFERENCE UNITS LAB MG MAGNESIUM 1.7 1.6-2.4 mg/dL Performed By: #### [id number] ### # [facility] [address] [place] [address] Clarice Adam M.D. [id number] CBC WITH AUTO DIFFERENTIAL Collected: 09/25/2024 5:46 AM Status: F Source: [facility] TYPE CODE TESTS RESULT OUT OF RANGE REFERENCE UNITS LAB WBC WHITE BLOOD CELL COUNT 9.65 4.50-11.00 K/mcL LAB RBC RED BLOOD CELL COUNT 3.74 Low 4.00-5.20 M/mcL LAB HGB HEMOGLOBIN 11.6 Low 12.0-16.0 g/dL LAB HCT HEMATOCRIT 35.5 Low 36.0-46.0 % LAB MCV MEAN CORPUSCULAR VOLUME 94.9 80.0-100.0 fL LAB MCH MEAN CORPUSCULAR HEMOGLOBIN 31.0 26.0-34.0 pg LAB MCHC MEAN CORPUSCULAR HEMOGLOBIN CONC 32.7 31.0-37.0 g/dL LAB PLT PLATELET COUNT 275 150-400 K/mcL LAB RDW RED CELL DISTRIBUTION WIDTH 12.9 11.6-14.8 % LAB MPV MEAN PLATELET VOLUME 9.8 9.4-12.4 fL LAB NEUTS% NEUTROPHILS RELATIVE PERCENT 51.3 % LAB LYMPHS% LYMPHOCYTES RELATIVE PERCENT 38.0 % LAB MONOS% MONOCYTES RELATIVE PERCENT 7.8 % LAB EOSIN% EOSINOPHILS RELATIVE PERCENT 2.3 % LAB BASO% BASOPHILS RELATIVE PERCENT 0.3 % LAB [address]1072 IG PERCENT 0.30 % Result Comment: The IG haley eter is the percentage of metamyelocytes, myelocytes and promyelocytes. An immature granulocyte count (IG) of 1% or more suggests the possibility of infection, an IG count of 3% is very likely related to an infection. LAB NEUTSABS NEUTROPHILS ABSOLUTE COUNT 4.95 1.70-7.00 K/mcL LAB LYMPHSABS LYMPHOCYTES ABSOLUTE COUNT 3.67 0.90-4.00 K/mcL LAB MONOSABS MONOCYTES ABSOLUTE COUNT 0.75 0.30-0.90 K/mcL LAB EOSABS EOSINOPHILS ABSOLUTE COUNT 0.22 0.00-0.50 K/mcL LAB BASOABS BASOPHILS ABSOLUTE COUNT 0.03 0.00-0.30 K/mcL LAB 24481 IG ABSOLUTE 0.03 0.00-0.30 K/mcL LAB NRBC AUTO NRBC 0.0 % LAB NRBCAB AUTO NRBC ABS COUNT 0.00 0.00-0.00 K/mcL Performed By: #### [id number] # ### [facility] [address] [place] [address] Clarice Adam M.D. [id number] TSH WITH REFLEX FREE T4 Collected: 09/13 5:46 AM Status: F Source: [facility] TYPE CODE TESTS RESULT OUT OF RANGE REFERENCE UNITS LAB TSHR TSHR 3.11 0.27-4.20 mcIU/mL Performed By: #### [id number] ### # [facility] [address] [place] [address] Clarice Adam M.D. [id number] PT/INR Collected: 5:46 AM Status: F Source: [facility] Order Comment: During the in duction phase of oral anticoagulation, the INR may not reflect the anticoagulation status of the patient. Therapeutic ranges for INR's are: Most clinical situations: INR 2.0-3.0 Mechanical Prosthetic Valve: INR 2.5-3.5 Critical: INR >5.0 TYPE CODE TESTS RESULT OUT OF RANGE REFERENCE UNITS LAB PT PROTIME (PT) 13.6 11.8-14.3 seconds LAB INR INR 1.0 0.8-1.1 Performed By: #### [id number] ### # [facility] [address] [place] [address] Clarice Adam M.D. [id number] PHOSPHORUS Collected: 5:46 AM Status: F Source: [facility] TYPE CODE TESTS RESULT OUT OF RANGE REFERENCE UNITS LAB PHOS PHOSPHORUS 4.2 2.7-4.5 mg/dL Performed By: #### [id number] ### # LAB [address] [place] [address] Clarice Adam M.D. [id number] H AND P Observed: 09/25/2024 4:45 AM Status: COMPLETED Source: [facility] HISTORY AND PHYSICAL -- [facility] Patient Name: Dhaval Moon : 2000 MR #: [id number] Admit Date: 09/24/2024 Physicians: No, Physician (Family); No ref. provider found (Referring) Dhaval Moon is a 23 y.o. female with history of alcoholism, hypertension, mood disorder presented to [facility] on 09/24/2024 with tremors of anxiety. Alcohol withdrawal: Tremors, anxiety, nausea. In setting of daily alcohol consumption, but no alcohol intake since yesterday morning. Alcohol level at 17 on presentation. Patient was started on phenobarbital taper in ED; we will continue. Addiction medicine team consulted. Thiamine, folate and multivitamins ordered. Hypertension: Mildly hypertensive on admission (SBP in the 160s). Restart home regimen. Mood disorder: Restart home regimen. Asthma No signs of acute exacerbation. Restart home regimen. Breathing treatments as needed. Residence prior to admission: house or apartment Was patient transferred from outlying hospital or ED no Quality Measures DVT Prophylaxis: SCDs Mason Catheter: absent Medication Reconciliation: Verified Admitted with these risk variables:None. Please see assessment and plan for further details. Estimated Date of Discharge greater than 2 midnights Code Status Full Code; code status verified on 09/25/2024 with patient (capacity intact) Chief Complaint tremors, anxiety History of Present Illness Daily alcohol consumption. No alcohol intake since yesterday morning. Patient developed anxiety, tremors, sweating, nausea this evening. Concern for alcohol withdrawal so she decided to come to emergency department for evaluation. Denies any recent episode of fevers, chills, cough, shortness of breath, chest pain. Past Medical History Past Medical History: Diagnosis Date Asthma Hypertension Past Surgical History History reviewed. No pertinent surgical history. Family History History reviewed. No pertinent family history. Social History Tobacco Use History[1] Social History Substance and Sexual Activity Alcohol Use Yes Social History Substance and Sexual Activity Drug Use Not on file Allergy Information I have reviewed the patient's allergies. Penicillin g Home Medications Home medications were reviewed. Review Of Systems All relevant systems have been reviewed and are negative except as noted in HPI or below Eyes: Denies vision changes ENT: Denies hearing loss, nasal congestion, sore throat CV: Denies chest pain, palpitations, peripheral edema Respiratory: Denies shortness of breath, cough, wheezing : Denies dysuria, frequent urination MSK: Denies joint pain or swelling, restricted motion Integumentary: Denies skin changes, pruritis Endocrine: Denies heat or cold intolerance, excessive thirst Hematological: Denies abnormal bleeding or bruising Allergy/Immunological: Denies hives, swelling of lips or tongue Physical Examination BP 160/96 Pulse 95 Temp 98.6 degrees F (37 degrees C) (Oral) Resp 16 Ht 5' 1" Wt 111.1 kg (245 lb) LMP 09/09/2024 (Approximate) SpO2 92% BMI 46.29 kg/m General Appearance: alert; in no acute distress HEENT: Head- normocephalic; Eyes- EOMI, sclera anicteric; Throat- mucous membranes moist Cardiovascular: regular rate and rhythm; normal S1, S2; no murmurs, rubs, clicks or gallops Respiratory: no wheezes, rales or rhonchi; on room air Abdomen: soft, non-tender, non-distended Neurological: oriented x 3; normal speech; no focal findings or movement disorder noted Musculoskeletal: no significant deformity Skin: normal coloration Psych: anxious [1] Social History Tobacco Use Smoking Status Every Day Types: Cigarettes Smokeless Tobacco Not on file AUTHENTICATED BY TIGIST SHANNON ON 09/25/2024 05:02:02 ED PROCEDURE Observed: 09/25/2024 1:05 AM Status: COMPLETED Source: [facility] EKG 12-lead Date/Time: 09/25/2024 1:05 AM Performed by: Mary Rose DO Authorized by: Oralia Mike PA-C BPM: 108 Comments: CT 162. QRS 80. QTc 466. Normal axis. Sinus tachycardia. Some artifact appreciated. Nonspecific EKG. AUTHENTICATED BY MARY ROSE, ON 09/25/2024 01:06:18 ED PROV NOTE Observed: 09/24/2024 11:20 PM Status: COMPLETED Source: [facility] Chief Complaint: Alcohol Pro blem HPI: This is a 23-year-old female with past medical history of alcohol use disorder presenting to the ED for "possible withdrawal". Patient states she drank "1 L of vodka today". She endorses that she has had withdrawals in the past and this feels similar. She denies any chest pain or shortness of breath. Denies any nausea, vomiting or diarrhea. The patient denies any visual or auditory hallucinations. The patient denies any other symptoms or injuries at this time. Alcohol Problem Past Medical History: PMHx: History reviewed. No pertinent past medical history. PMSx: History reviewed. No pertinent surgical history. FAM. Hx: History reviewed. No pertinent family history. SOC. Hx: Social History [1] MEDs: No current outpatient medications on file prior to encounter. ALL: Allergies[2] Review of Systems: ROS: Review of Systems Unable to perform ROS: Other (Patient intoxicated) Positives and pertinent negatives as per HPI. All other systems were reviewed and are negative. Physical Exam: Patient Vitals for the past 24 hrs: BP Temp Temp src Pulse Resp SpO2 Height Weight 09/25/24 0211 -- -- -- (!) 104 -- 92 % -- -- 09/25/24 0044 (!) 155/83 -- -- (!) 113 -- 97 % -- -- 09/25/24 0015 -- -- -- (!) 113 -- 97 % -- -- 09/24/24 2352 -- -- -- (!) 110 -- 100 % -- -- 09/24/24 2330 (!) 145/81 -- -- (!) 103 -- 98 % -- -- 09/24/24 2319 (!) 143/89 -- -- (!) 110 17 97 % -- -- 09/24/24 2228 132/86 98.6 degrees F (37 degrees C) Oral (!) 118 18 97 % 5' 1" 111.1 kg (245 lb) Physical Exam Vitals and nursing note reviewed. Constitutional: General: She is not in acute distress. Appearance: She is well-developed and normal weight. HENT: Head: Normocephalic and atraumatic. Mouth/Throat: Mouth: Mucous membranes are moist. Pharynx: Oropharynx is clear. Eyes: Extraocular Movements: Extraocular movements intact. Cardiovascular: Rate and Rhythm: Regular rhythm. Tachycardia present. Pulmonary: Effort: Pulmonary effort is normal. Breath sounds: Normal breath sounds. Abdominal: Palpations: Abdomen is soft. Tenderness: There is no abdominal tenderness. Comments: Soft and nontender. No rebound tenderness or guarding. Negative Jj sign, negative McBurney's point tenderness. No CVA tenderness. Musculoskeletal: General: Normal range of motion. Cervical back: Normal range of motion and neck supple. Skin: General: Skin is warm and dry. Neurological: General: No focal deficit present. Psychiatric: Mood and Affect: Mood normal. Behavior: Behavior normal. Laboratory & Radiological Imaging: Labs Reviewed ALCOHOL, MEDICAL - Abnormal; Notable for the following components: Result Value Alcohol (Medical) 17.4 (*) All other components within normal limits CBC WITH AUTO DIFFERENTIAL - Abnormal; Notable for the following components: WBC 11.12 (*) RBC 3.80 (*) Hemoglobin 11.8 (*) Lymphocytes Abs 4.69 (*) All other components within normal limits BASIC METABOLIC PANEL - Normal Narrative: [facility] has implemented the eGFR calculation approach that does not have a coefficient for race that conforms to the NKF-ASN Task Force Recommendations. HCG, BLOOD, QUANTITATIVE - Normal Narrative: Males and non females: <5 mIU/mL Females during : 3-4 weeks 9-130 mIU/mL 4-5 weeks 75-2600 mIU/mL 5-6 weeks 850-20,800 mIU/mL 6-7 weeks 4000-100,200 mIU/mL 7-12 weeks 11,500-289,000 mIU/mL 12-16 weeks 18,300-137,000 mIU/mL 16-29 weeks 1,400-53,000 mIU/mL 29-41 weeks 940-60,000 mIU/mL HEPATIC FUNCTION PANEL - Normal CBC AND DIFFERENTIAL Narrative: The following orders were created for panel order CBC w/ Diff. Procedure Abnormality Status --------- ------ CBC Auto Differential[[id number]] Abnormal Final result Please view results for these tests on the individual orders. DRUGS OF ABUSE SCREEN, URINE No orders to display Procedures: Procedures MDM: MDM Number of Diagnoses or Management Options Alcohol withdrawal (HCC) Diagnosis management comments: This is a 23-year-old female with history of alcohol use disorder presenting to the ED for "alcohol withdrawal". Patient presents with signs symptoms consistent with alcohol withdrawal, including tachycardia, tremors, diaphoresis, anxiety. She denies any hallucinations, seizures or history of delirium tremens. CIWA score is elevated, warranting inpatient management to prevent progression of withdrawal symptoms. CBC is unremarkable, BMP is unremarkable. LFTs are normal. Alcohol level is 17.4. UDS is pending. At this time, differential diagnosis includes: Alcohol withdrawal, anxiety, thyrotoxicosis, and other metabolic or infectious etiologies. Clinical presentation most consistent with alcohol withdrawal. Plan for hospitalization with monitored detoxification and symptom triggered control. Patient was given thiamine and folate supplementation, IV fluids and a phenobarb taper was initiated. Case was discussed with my attending, Dr. Mazariegos who evaluated this patient at bedside and agrees with plan for hospitalization. Historian: patient External Record Review: None Social Determinants Impacting Care: Social Drivers of Health Tobacco Use: High Risk (09/24/2024) Patient History Smoking Tobacco Use: Every Day Smokeless Tobacco Use: Unknown Passive Exposure: Not on file Alcohol Use: Not on file Financial Resource Strain: Medium Risk (05/22/2020) Received from [facility] Overall Financial Resource Strain (CARDIA) Difficulty of Paying Living Expenses: Somewhat hard Food Insecurity: Food Insecurity Present (06/09/2023) Received from [facility] Hunger Vital Sign Worried About Running Out of Food in the Last Year: Sometimes true Ran Out of Food in the Last Year: Sometimes true Transportation Needs: No Transportation Needs (06/09/2023) Received from [facility] PRAPARE - Transportation Lack of Transportation (Medical): No Lack of Transportation (Non-Medical): No Physical Activity: Inactive (01/23/2019) Received from [facility] Exercise Vital Sign Days of Exercise per Week: 0 days Minutes of Exercise per Session: 0 min Stress: Not on file Social Connections: Not on file Intimate Partner Violence: Not on file Depression: At risk (05/28/2020) Received from [facility] PHQ-2 PHQ-9 Total Score: 19 Housing Stability: Unknown (06/09/2023) Received from [facility] Housing Stability Vital Sign Unable to Pay for Housing in the Last Year: No Number of Places Lived in the Last Year: Not on file Unstable Housing in the Last Year: No Utilities: Not on file Chronic Conditions Impacting Care: Active Ambulatory Problems Diagnosis Date Noted No Active Ambulatory Problems Resolved Ambulatory Problems Diagnosis Date Noted No Resolved Ambulatory Problems No Additional Past Medical History Abnormal Vital Signs: Vitals: 09/24/24 2228 09/24/24 2319 09/24/24 2330 09/25/24 0044 BP: 132/86 (!) 143/89 (!) 145/81 (!) 155/83 Diagnostic Studies Considered but Not Performed: None Impact of Diagnostic Studies on Patient Care: None Diagnostic Studies Interpreted by Me: None Discussions with Other Healthcare Providers: Yes Discussions with Radiology: N/A Hospitalization Considered: Yes Medication Route: Medications sodium chloride (PF) (NS) flush 5 mL (has no administration in time range) And sodium chloride 0.9% (NS) (has no administration in time range) thiamine (B-1) injection 200 mg (200 mg Intravenous Given 09/24/242301) PHENobarbital injection 65 mg (has no administration in time range) PHENobarbital injection 195 mg (195 mg Intramuscular Given 09/25/2442) Followed by PHENobarbital injection 143 mg (has no administration in time range) Followed by PHENobarbitaL tablet 64.8 mg (has no administration in time range) Followed by PHENobarbitaL tablet 32.4 mg (has no administration in time range) Followed by PHENobarbitaL tablet 32.4 mg (has no administration in time range) folic acid (FOLVITE) tablet 1 mg (1 mg Oral Given 09/24/242252) sodium chloride 0.9% (NS) bolus 1,000 mL (0 mL Intravenous Stopped 09/25/24 0004) ondansetron (ZOFRAN) injection 4 mg (4 mg Intravenous Given 09/24/242302) lidocaine viscous 2% 10 mL and maalox plus 30 mL (GI COCKTAIL) 40 mL solution (40 mL Oral Given 09/24/242316) LORazepam (ATIVAN) tablet 0.5 mg (0.5 mg Oral Given 09/24/24 3870) Medication Reassessment: JCMEDEFFECTS: N/A Medications Considered but Not Given: None Prescription Medications Considered but Not Given: None Clinical Impression: 1. Alcohol withdrawal (HCC) Disposition: Hospitalize (Please note that portions of this note may have been completed with a voice recognition program. Efforts were made to edit the dictations but occasionally words are mis-transcribed.) Oralia Mike PA-C ED Advanced Practice Provider [facility] EMER[facility]PART[facility] [1] Social History Socioeconomic History Marital status: Single Tobacco Use Smoking status: Every Day Types: Cigarettes Substance and Sexual Activity Alcohol use: Yes Social Drivers of Health Financial Resource Strain: Medium Risk (05/22/2020) Received from [facility] Overall Financial Resource Strain (CARDIA) Difficulty of Paying Living Expenses: Somewhat hard Food Insecurity: Food Insecurity Present (06/09/2023) Received from [facility] Hunger Vital Sign Worried About Running Out of Food in the Last Year: Sometimes true Ran Out of Food in the Last Year: Sometimes true Transportation Needs: No Transportation Needs (06/09/2023) Received from [facility] PRAPARE - Transportation Lack of Transportation (Medical): No Lack of Transportation (Non-Medical): No Physical Activity: Inactive (01/23/2019) Received from [facility] Exercise Vital Sign Days of Exercise per Week: 0 days Minutes of Exercise per Session: 0 min Housing Stability: Unknown (06/09/2023) Received from [facility] Housing Stability Vital Sign Unable to Pay for Housing in the Last Year: No Unstable Housing in the Last Year: No [2] Allergies Allergen Reactions Penicillin G Unknown When pt was younger Oralia Mike PA-C 09/25/24 0226 AUTHENTICATED BY ORALIA MIKE, ON 09/25/2024 02:26:58 HEPATIC FUNCTION PANEL Collected: 09/24/2024 10:52 PM Status: F Source: [facility] TYPE CODE TESTS RESULT OUT OF RANGE REFERENCE UNITS LAB TP TOTAL PROTEIN 7.4 6.0-8.0 g/dL LAB ALB ALBUMIN 4.2 3.2-5.2 g/dL LAB TBIL BILIRUBIN TOTAL 0.4 0.0-1.3 mg/dL LAB DBIL BILIRUBIN, DIRECT 0.2 0.0-0.4 mg/dL LAB ALP ALKALINE PHOSPHATASE 75 40-140 U/L LAB AST AST (SGOT) 18 0-35 U/L U/L LAB ALT ALT 10 0-35 U/L U/L Performed By: #### [id number] ### # DH LAB [facility] [place], [place] [address] Clarice Adam M.D. [id number] ALCOHOL, MEDICAL Collected: 10:52 PM Status: F Source: [facility] TYPE CODE TESTS RESULT OUT OF RANGE REFERENCE UNITS LAB ALC RAW ALCOHOL MEDICAL 17.4 High <10.0 mg/dL Performed By: #### [id number] ### # DH LAB [address] [place] [address] Clarice Adam M.D. [id number] CBC WITH AUTO DIFFERENTIAL Collected: 09/24/2024 10:5 2 PM Status: F Source: [facility] TYPE CODE TESTS RESULT OUT OF RANGE REFERENCE UNITS LAB WBC WHITE BLOOD CELL COUNT 11.12 High 4.50-11.00 K/mcL LAB RBC RED BLOOD CELL COUNT 3.80 Low 4.00-5.20 M/mcL LAB HGB HEMOGLOBIN 11.8 Low 12.0-16.0 g/dL LAB HCT HEMATOCRIT 36.3 36.0-46.0 % LAB MCV MEAN CORPUSCULAR VOLUME 95.5 80.0-100.0 fL LAB MCH MEAN CORPUSCULAR HEMOGLOBIN 31.1 26.0-34.0 pg LAB MCHC MEAN CORPUSCULAR HEMOGLOBIN CONC 32.5 31.0-37.0 g/dL LAB PLT PLATELET COUNT 315 150-400 K/mcL LAB RDW RED CELL DISTRIBUTION WIDTH 12.7 11.6-14.8 % LAB MPV MEAN PLATELET VOLUME 10.0 9.4-12.4 fL LAB NEUTS% NEUTROPHILS RELATIVE PERCENT 48.6 % LAB LYMPHS% LYMPHOCYTES RELATIVE PERCENT 42.2 % LAB MONOS% MONOCYTES RELATIVE PERCENT 6.5 % LAB EOSIN% EOSINOPHILS RELATIVE PERCENT 1.9 % LAB BASO% BASOPHILS RELATIVE PERCENT 0.4 % LAB [address] IG PERCENT 0.40 % Result Comment: The IG haley eter is the percentage of metamyelocytes, myelocytes and promyelocytes. An immature granulocyte count (IG) of 1% or more suggests the possibility of infection, an IG count of 3% is very likely related to an infection. LAB NEUTSABS NEUTROPHILS ABSOLUTE COUNT 5.41 1.70-7.00 K/mcL LAB LYMPHSABS LYMPHOCYTES ABSOLUTE COUNT 4.69 High 0.90-4.00 K/mcL LAB MONOSABS MONOCYTES ABSOLUTE COUNT 0.72 0.30-0.90 K/mcL LAB EOSABS EOSINOPHILS ABSOLUTE COUNT 0.21 0.00-0.50 K/mcL LAB BASOABS BASOPHILS ABSOLUTE COUNT 0.05 0.00-0.30 K/mcL LAB 80628 IG ABSOLUTE 0.04 0.00-0.30 K/mcL LAB NRBC AUTO NRBC 0.0 % LAB NRBCAB AUTO NRBC ABS COUNT 0.00 0.00-0.00 K/mcL Performed By: #### [id number] # ### LAB [address] [place], [place] [address] Clarice Adam M.D. [id number] HCG, BLOOD, QUANTITATIVE Collected: 09/24/2024 10:52 PM Status: F Source: [facility] Order Comment: Males and non females: <5 mIU/mL Females during : 3-4 weeks 9-130 mIU/mL 4-5 weeks 75-2600 mIU/mL 5-6 weeks 850-20,800 mIU/mL 6-7 weeks 4000-100,200 mIU/mL 7-12 weeks 11,500-289,000 mIU/mL 12-16 weeks 18,300-137,000 mIU/mL 16-29 weeks 1,400-53,000 mIU/mL 29-41 weeks 940-60,000 mIU/mL TYPE CODE TESTS RESULT OUT OF RANGE REFERENCE UNITS LAB HCGQUAN HCG, QUANTITATIVE < 0-5 mIU/mL Performed By: #### [id number] ### # LAB [facility] [place], [place] [address] Clarice Adam M.D. [id number] BASIC METABOLIC PANEL Collected: 2024 10:52 PM Status: F Source: [facility] Order Comment: [facility] has implemented the eGFR calculation approach that does not have a coefficient for race that conforms to the NKF-ASN Task Force Recommendations. TYPE CODE TESTS RESULT OUT OF RANGE REFERENCE UNITS LAB [id number] SODIUM 143 135-145 mmol/L LAB 4364086 POTASSIUM 3.9 3.5-5.1 mmol/L LAB 2133039 CHLORIDE 106 98-108 mmol/L LAB BICARB BICARBONATE 24 21-32 mmol/L LAB AG ANION GAP 17 10-20 mmol/L LAB 4558186 GLUCOSE 94 65-99 mg/dL LAB BUN BUN 12 8-25 mg/dL LAB CREAT CREATININE 0.63 0.40-1.10 mg/dL LAB GFR EGFR 127 >=60 mL/min/1. 73 m2 Result Comment: Estimated GF R was calculated using the 2020 CKD-EPI creatinine equation. LAB BUNCREAT BUN / CREAT RATIO 19.0 10.0-20.0 LAB CA CALCIUM 8.9 8.4-10.2 mg/dL Performed By: #### [id number] ### # DH LAB [address] [place] [address] Clarice Adam M.D. [id number] CBC AND ELECTRONIC DIFF Collected: 08/23/2024 1:19 PM Status: F Source: [facility] TYPE CODE TESTS RESULT OUT OF RANGE REFERENCE UNITS LAB [id number] WBC Count 9.35 3.99-11.19 K/uL LAB [id number] RBC Count 4.26 3.91-5.04 M/uL LAB [id number] Hemoglobin 13.2 11.4-15.2 g/dL LAB [id number] Hematocrit 40.7 34.9-44.3 % LAB [id number] Mean Cell Volume 95.5 79.6-97.7 fL LAB [id number] Mean Cell Hgb 31.0 25.9-33.9 pg LAB [id number] Mean Cell Hgb Conc 32.4 31.4-35.9 g/dL LAB [id number] RBC Distribution 12.8 10.8-14.9 % LAB [id number] Platelet Count 337 150-393 K/uL LAB [id number] Mean Platelet Volume 10.6 8.5-12.2 fL LAB [id number] DIFF STATUS Electronic Differential LAB [id number] Segs + Bands Auto 57.3 % LAB [id number] Immature Grans % 0.2 % LAB [id number] Lymphocyte % Auto 30.7 % LAB [id number] Monocyte % Auto 7.0 % LAB [id number] Eosinophil % Auto 4.4 % LAB [id number] Basophil % Auto 0.4 % LAB [id number] Nucleated RBC 0.0 <=0.2 /100 WB C LAB [id number] Segs + Bands,Absolute Auto 5.36 1.64-7.28 K/uL LAB [id number] Immature Grans Absolute < <=0.08 K/uL LAB [id number] Abs Lymph Auto 2.87 1.16-3.51 K/uL LAB [id number] Abs [place] Auto 0.65 0.22-0.87 K/uL LAB [id number] Abs Eos Auto 0.41 0.00-0.42 K/uL LAB [id number] Abs Baso Auto 0.04 0.00-0.15 K/uL Performed By: #### [id number] ## ## [facility] (DEFAULT) [address] [place] [address] MAGNESIUM Collected: 1:19 PM Status: F Source: [facility] TYPE CODE TESTS RESULT OUT OF RANGE REFERENCE UNITS LAB [id number] Magnesium 1.8 1.6-2.6 mg/dL Performed By: #### MGO, CHM7 , IPB #### [facility] (DEFAULT) [address] [place] [address] CHEM 7 (LYTES,BUN,CREA,GLUC) Collected: 08/23/2024 1:19 PM Status: F Source: [facility] TYPE CODE TESTS RESULT OUT OF RANGE REFERENCE UNITS LAB [id number] Sodium 137 135-145 mmol/L LAB [id number] Potassium 4.1 3.5-5.0 mmol/L LAB [id number] Chloride 105 98-108 mmol/L LAB [id number] CO2 23 21-31 mmol/L LAB [id number] Glucose 94 Nonfastin -179 mg/dL; Fastin-99 mg/dL LAB [id number] BUN 14 7-25 mg/dL LAB [id number] Creatinine 0.59 0.50-1.20 mg/dL LAB [id number] Bun/Crea Ratio 24 LAB [id number] Osmolality (Calculated) 287 278-305 mOsm/kg LAB [id number] Anion Gap 13 7-17 mmol/L LAB [id number] eGFR, CKD-EPI, Female > >=60 mL/min/ 1.73m2 Result Comment: Reported eGF R is based on the CKD-EPI 2020 equation using creatinine, age, and sex. Performed By: #### JERE LEW , DIANEB #### [facility] (DEFAULT) [address] [address] PHOSPHATE, INORGANIC Collected: 1:19 PM Status: F Source: [facility] TYPE CODE TESTS RESULT OUT OF RANGE REFERENCE UNITS LAB [id number] Phosphorous 4.2 2.2-4.6 mg/dL Performed By: #### JERE LEW , IPB #### [facility] (DEFAULT) [address] [address] BETA HCG, QUAL, BLOOD Collected: 08/23/2024 1:19 PM Status: F Source: [facility] TYPE CODE TESTS RESULT OUT OF RANGE REFERENCE UNITS LAB [id number] HCG (Qual) Serum Negative Negative Performed By: #### BHCG #### [facility] (DEFAULT) [address] [address] URINALYSIS REFLEX TO CULTURE PERFORMABLE Collected: 08/12/2024 7:56 PM Status: F Source: [facility] Order Comment: For indwellin g catheters, specimen collection is acceptable on catheter day 1 and 2 only. ? TYPE CODE TESTS RESULT OUT OF RANGE REFERENCE UNITS LAB [id number] Color Yellow Yellow LAB [id number] Appearance Urine Clear Clear LAB [id number] Glucose Urine Negative Negative LAB [id number] Ketones Urine Negative Negative LAB [id number] Specific [place] Urine 1.013 1.001-1.035 LAB [id number] Blood Urine Large Abnormal Negative LAB [id number] pH Urine 5.5 5.0-7.0 LAB [id number] Protein Urine Trace Abnormal Negative LAB [id number] Urobilinogen Urine 0.2 E.U./dL 0.2 E.U/dL, 1.0 E.U/dL LAB [id number] Nitrites Urine Negative Negative LAB [id number] Leukocyte Esterase Negative Negative LAB [id number] RBC Urine >25 Abnormal 0-2 /HPF LAB [id number] WBC Urine 0 - 5 0 - 5 /HPF LAB [id number] Squamous/Epithe lial Cells, Urine 6-10/hpf = 2+ Abnormal 0-2/hpf, 3-5/hpf = 1+ LAB [id number] Bacteria TRACE Abnormal ABSENT Performed By: #### [id number] #### [facility] (DEFAULT) [address] [address] XR CHEST PA AND LATERAL 2 VIEWS Observed: 08/12/2024 6:03 PM Status: F Source: [facility] EXAM: XR CHEST PA AND LATERA L 2 VIEWS, 08/12/2024 17:19 PM COMPARISON: No prior studies available for comparison. CLINICAL INDICATIONS: chest pain, sob RELEVANT CLINICAL HISTORY: FINDINGS: (Adequate technique) Implanted Devices: None Lungs: Clear, without mass, interstitial disease, or consolidation. Pleural Spaces: No pleural effusion. No pneumothorax. Mediastinum and Ida: Normal Cardiac silhouette and great vessels: Normal heart size. Unremarkable aorta. Chest Wall: Normal IMPRESSION: No acute cardiopulmonary disease HCG, QUAL, BLOOD Collected: 08/12/2024 5:03 PM Status: F Source: [facility] TYPE CODE TESTS RESULT OUT OF RANGE REFERENCE UNITS LAB [id number] HCG (Qual) Serum Negative Negative Performed By: #### HEP1B CG #### [facility] (DEFAULT) [address] [address] HEPATITIS BATTERY, ACUTE Collected: 08/12/2024 5:03 P M Status: F Source: [facility] TYPE CODE TESTS RESULT OUT OF RANGE REFERENCE UNITS LAB [id number] Hepatitis B Surface Ag Negative Negative LAB [id number] Hep B Core Ab,Total (IgG+IgM) Negative Negative LAB [id number] Hep B Core IgM Ab Negative Negative LAB [id number] Hepatitis A IgM Ab Negative Negative LAB [id number] Hepatitis C Antibody Negative Negative Performed By: #### HEP1B, CG #### [facility] (DEFAULT) [address] [address] LIPASE Collected: 5:03 PM Status: F Source: [facility] TYPE CODE TESTS RESULT OUT OF RANGE REFERENCE UNITS LAB [id number] Lipase 8 Low 11-82 U/L Performed By: #### C7ED, LIP A, FT4, TSH, ALCOSU, HFP, MGO #### [facility] (DEFAULT) [address] [place] [address] MAGNESIUM Collected: 5:03 PM Status: F Source: [facility] TYPE CODE TESTS RESULT OUT OF RANGE REFERENCE UNITS LAB [id number] Magnesium 1.9 1.6-2.6 mg/dL Performed By: #### C7ED, LIP A, FT4, TSH, ALCOSU, HFP, MGO #### [facility] (DEFAULT) [address] [place] [id number] CHM 7 - ED Collected: 08/12/2024 5:03 PM Status: F Source: [facility] TYPE CODE TESTS RESULT OUT OF RANGE REFERENCE UNITS LAB [id number] Sodium 137 135-145 mmol/L LAB [id number] Potassium 4.3 3.5-5.0 mmol/L LAB [id number] Chloride 106 98-108 mmol/L LAB [id number] CO2 25 21-31 mmol/L LAB [id number] Glucose 88 Nonfastin -179 mg/dL; Fastin-99 mg/dL LAB [id number] BUN 6 Low 7-25 mg/dL LAB [id number] Creatinine 0.54 0.50-1.20 mg/dL LAB [id number] Bun/Crea Ratio 11 LAB [id number] Osmolality (Calculated) 285 278-305 mOsm/kg LAB [id number] Anion Gap 10 7-17 mmol/L LAB [id number] eGFR, CKD-EPI, Female > >=60 mL/min/1 .73m2 Result Comment: Reported eGF R is based on the CKD-EPI 2020 equation using creatinine, age, and sex. Performed By: #### C7ED, LIP A, FT4, TSH, ALCOSU, HFP, MGO #### [facility] (DEFAULT) [address] [place] [id number] HEPATIC FUNCTION PANEL Collected: 08/12/2024 5:03 PM Status: F Source: [facility] TYPE CODE TESTS RESULT OUT OF RANGE REFERENCE UNITS LAB [id number] Albumin 4.0 3.5-5.0 g/dL LAB [id number] Bilirubin Direct 0.1 <0.3 mg/dL Result Comment: Specimen hem olyzed. Direct bilirubin results may be falsely decreased. Interpret within the clinical context. LAB [id number] Bilirubin Total 0.8 <1.5 mg/dL LAB [id number] ALP 59 32-126 U/L LAB [id number] ALT 8 Low 9-48 U/L LAB [id number] AST 17 10-39 U/L LAB [id number] Total Protein 7.3 6.4-8.3 g/dL Performed By: #### C7ED, LIP A, FT4, TSH, ALCOSU, HFP, MGO #### [facility] (DEFAULT) [address] [address] ALCOHOL (ETHANOL),BLOOD Collected: 07/16 5:03 PM Status: F Source: [facility] TYPE CODE TESTS RESULT OUT OF RANGE REFERENCE UNITS LAB [id number] Alcohol, Serum <10 <10 mg/dL Performed By: #### C7ED, LIP A, FT4, TSH, ALCOSU, HFP, MGO #### [facility] (DEFAULT) [address] [address] T4 FREE Collected: 5:03 PM Status: F Source: [facility] TYPE CODE TESTS RESULT OUT OF RANGE REFERENCE UNITS LAB [id number] Free T4 1.04 0.89-1.76 ng/dL Performed By: #### C7ED, LIP A, FT4, TSH, ALCOSU, HFP, MGO #### [facility] (DEFAULT) [address] [address] TSH Collected: 5:03 PM Status: F Source: [facility] TYPE CODE TESTS RESULT OUT OF RANGE REFERENCE UNITS LAB [id number] TSH 1.069 0.550-4.780 uIU/mL Performed By: #### C7ED, LIP A, FT4, TSH, ALCOSU, HFP, MGO #### [facility] (DEFAULT) [address] [address] PROTIME-INR Collected: 5:03 PM Status: F Source: [facility] TYPE CODE TESTS RESULT OUT OF RANGE REFERENCE UNITS LAB [id number] PT 13.7 11.9-14.2 sec LAB [id number] INR 1.0 0.9-1.1 Performed By: #### PTI, PTT #### [facility] (DEFAULT) [address] [address] PTT Collected: 5:03 PM Status: F Source: [facility] TYPE CODE TESTS RESULT OUT OF RANGE REFERENCE UNITS LAB [id number] PTT 27.1 24.0-34.3 sec Performed By: #### PTI, PTT #### [facility] (DEFAULT) [address] [place] [address] CBC AND ELECTRONIC DIFF Collected: 07/16 5:03 PM Status: F Source: [facility] TYPE CODE TESTS RESULT OUT OF RANGE REFERENCE UNITS LAB [id number] WBC Count 7.84 3.99-11.19 K/uL LAB [id number] RBC Count 4.19 3.91-5.04 M/uL LAB [id number] Hemoglobin 13.1 11.4-15.2 g/dL LAB [id number] Hematocrit 40.3 34.9-44.3 % LAB [id number] Mean Cell Volume 96.2 79.6-97.7 fL LAB [id number] Mean Cell Hgb 31.3 25.9-33.9 pg LAB [id number] Mean Cell Hgb Conc 32.5 31.4-35.9 g/dL LAB [id number] RBC Distribution 12.9 10.8-14.9 % LAB [id number] Platelet Count 292 150-393 K/uL Result Comment: This is an a ppended report. These results have been appended to a previously preliminary verified report. LAB [id number] Mean Platelet Volume Result Comment: Not measured LAB [id number] DIFF STATUS Electronic Differential LAB [id number] Segs + Bands Auto 48.8 % LAB [id number] Immature Grans % 0.3 % LAB [id number] Lymphocyte % Auto 39.9 % LAB [id number] Monocyte % Auto 7.9 % LAB [id number] Eosinophil % Auto 2.8 % LAB [id number] Basophil % Auto 0.3 % LAB [id number] Nucleated RBC 0.0 <=0.2 /100 WB C LAB [id number] Segs + Bands,Absolute Auto 3.83 1.64-7.28 K/uL LAB [id number] Immature Grans Absolute < <=0.08 K/uL LAB [id number] Abs Lymph Auto 3.13 1.16-3.51 K/uL LAB [id number] Abs [place] Auto 0.62 0.22-0.87 K/uL LAB [id number] Abs Eos Auto 0.22 0.00-0.42 K/uL LAB [id number] Abs Baso Auto < 0.00-0.15 K/uL Performed By: #### [id number] ## ## [facility] (DEFAULT) [address] [place], [place] [id number] Observed: 07/18/2024 7:16 AM Status: COMPLETED Source: [employer] [facility] Also sent her a [employer] mess age---has not read or answer her phone. If patient calls back please make sure she is aware she needs to call to schedule with Psych. [employer] message sent to patient: Farideh wanted me want to reach out to let you know that she would like you to follow up with the psychiatric provider that you had seen that last filled your prescription of olanzapine. His name is Gary Hernandez. Please call there office to get scheduled at your earliest convenience. I attached there offices information below. [facility] [address] [address] 36 Observed: 07/12/2024 11:38 AM Status: COMPLETED Source: [employer] [facility] Left a message to return nikki l. 36 Observed: 07/11/2024 11:03 AM Status: COMPLETED Source: [employer] [facility] I sent her allergy medicatio n, blood pressure medications to the pharmacy yesterday. I did refill hydroxyzine which she can use for anxiety as needed. I am not going to be filling the antipsychotic medication which she really needs to get from a psychiatric provider. Please see other encounter-it looks like a provider from the [facility] last prescribed it. I did not prescribe an antibiotic- there is no indication that she needs one. 36 Observed: 07/11/2024 9:49 AM Status: COMPLETED Source: [employer] Name of caller: Dhaval Contact phone number: [phone] Relationship to Patient: Patient Provider: Dr. Booth Practice: [facility] Chief Complaint/Reason for Call: Pt states that her pharmacy did not receive rx for antibiotics and a mental health medication that she spoke with Luis at her last OV 07/09/24. Pharmacy confirmed: [facility] - [place], [place] - [address] Best time of day caller can be reached: Any Patient advised that office/PCP has 24-48 business hours to return their call: No 36 Observed: 07/11/2024 8:49 AM Status: COMPLETED Source: [facility] Please advise patient that i t looks like Gary Hernandez, psychiatric provider was the last provider to prescribe the olanzapine. I recommend that she reach out to them to get scheduled for follow up. I believe that he is at the [facility]. [facility] [address] [place] [address] 36 Observed: 07/11/2024 7:28 AM Status: COMPLETED Source: [employer] Fax received placed on your desk. 36 Observed: 07/10/2024 9:24 AM Status: COMPLETED Source: [employer] [facility] Called and spoke with svetlana shetty at [facility] in [place]-advised to please send over medication list with past refills and providers. Fax number given. 36 Observed: 07/09/2024 7:44 PM Status: COMPLETED Source: [employer] Please reach out to patient' s pharmacy in [place] and see if they have a list of prescriptions most recently prescribed for psychiatric medications along with most recent prescriber PROGRESS NOTE Observed: 07/09/2024 7:39 PM Status: COMPLETED Source: [employer] [facility] Denies any suicidal or homic idal ideation. Reports currently being without psychiatric provider. Will reach out to her pharmacy to see what most recent prescriptions are for her psychiatric medications which she is not sure of the dosing on. PROGRESS NOTE Observed: 07/09/2024 7:38 PM Status: COMPLETED Source: [facility] Stable, continue current inh baljeet PROGRESS NOTE Observed: 07/09/2024 7:38 PM Status: COMPLETED Source: [facility] Partial remission. Current p sychiatric medications unknown. Will reach out to pharmacy to see what most recent prescriptions are. Patient denies having current psychiatric provider PROGRESS NOTE Observed: 07/09/2024 7:37 PM Status: COMPLETED Source: [facility] Continue Zofran as needed. C urrently asymptomatic PROGRESS NOTE Observed: 07/09/2024 7:37 PM Status: COMPLETED Source: [facility] Controlled. Blood pressure 1 . Continue current medications losartan 50 mg daily, metoprolol XL 25 mg twice daily 36 Observed: 07/09/2024 2:45 PM Status: COMPLETED Source: [facility] Patient was seen in office t nano by Farideh PROGRESS NOTE Observed: 07/09/2024 2:20 PM Status: COMPLETED Source: [facility] 07/09/2024 Dhaval Moon (: 2000) is a [...] dosing on. Follow up for 3 month [facility]. SUBJECTIVE/OBJECTIVE: HELEN Claude Moon (: 2000) is a 23 y.o. female , Established patient, here for the evaluation of the following chief complaint(s): Follow-up, Possible , Medication Check, and Med Refill Patient presents for follow-up and med check. She reports that she was briefly in and out of rehab for street drug use and most recently left [place] [facility] after 2.5 weeks in a treatment center. [...] is currently living with a friend in [place] and reports that she has limited contact [...] note. BRENDA Anthony CNP 07/09/2024 7:43 PM OFFICE VISIT Observed: 07/09/2024 2:20 PM Status: COMPLETED Source: [facility] Write.my [facility] [id number] Dhaval Moon F Date Provider Department Center 07/09/2024 [id number]-GOSZNYLFKYLUIS KATHLEEN [facility] Family History Problem Relation Age of Onset High Blood Pressure Father No Known Problems Mother Family Status - Relation Status Age at Father Alive Mother Alive Level of Service:59394 CT OFFICE/OUTPATIENT ESTABLISHED MOD MDM 30 MIN Reason for Visit and Comments: Follow-up [039076] Possible [805445] Medication Check [[id number]] Med Refill [[id number]] PROGRESS NOTE Observed: 07/09/2024 2:20 PM Status: COMPLETED Source: [facility] Patient was identified by na mo and Date of . Patient identified by name and date of . Urine specimen cup labeled with patient name and date of . Urine cup given to patient, urine collected from patient. POCT HCG Urine ordered and signed by provider. POCT HCG urine results entered and were sent to provider. Charged Results Entered 36 Observed: 07/05/2024 10:22 AM Status: COMPLETED Source: [facility] Write.my [facility] Left a message to return nikki edward BRENDA Foster CNP to Ca (Selected Message) 07/03/24 4:29 PM Note This is a psychiatric medication that should be prescribed by a psychiatrist or psychiatric provider. Recommend that she reach out to her last psychiatric provider to get reestablished. 36 Observed: 07/03/2024 4:29 PM Status: COMPLETED Source: [facility] This is a psychiatric medica tion that should be prescribed by a psychiatrist or psychiatric provider. Recommend that she reach out to her last psychiatric provider to get reestablished. 36 Observed: 07/03/2024 1:05 PM Status: COMPLETED Source: [facility] S: Patient spoke with MARINE chavarria regarding medication refill B: Onset of symptoms/concern [...] denies vaginal bleeding. R: Appt 07/09/24 @ 2200 with Ford Kathleen. Negative responses to COVID screening. Advised patient should arrive 15 minutes early, bring photo ID, ins cards, and medications. Patient understands care advice of community resources such as [facility]. Patient advised medications are ordered at provider [...] policy Protocols used: Medication Refill and Renewal [id number] 36 Observed: 02/27/2024 5:58 AM Status: COMPLETED Source: [facility] All medications were refused , this patient has to have an appointment before I will prescribe any medications, she has been off of her Lyrica since January and we have never prescribed Zyprexa. She has not been seen since June and has been scheduled multiple times and has either no showed or canceled 36 Observed: 02/26/2024 3:51 PM Status: COMPLETED Source: [facility] I will let Dr. Booth review and see if he would be okay with prescribing the Zyprexa. Lyrica has also not been filled since November and it was only a 10 day supply. 36 Observed: 02/26/2024 2:58 PM Status: COMPLETED Source: [facility] CSA 06/28/[address] Booth on 06/28/23, do you want to leave this for him tomorrow since we have never prescribed the Olazapine? 36 Observed: 02/26/2024 2:41 PM Status: COMPLETED Source: [facility] Ordering provider: Leobardo Date of last office [...] Medication name: pregabalin (Lyrica) 100 MG capsule [[id number]] Medication dosage: 100 mg (Miligrams Monthly quantity [...] prescribe. Please send all refills to pharmacy [id number] - [place], [place] - [address] [facility] 36 Observed: 12/26/2023 3:51 PM Status: COMPLETED Source: [facility] Mailed letter to contact the office. 36 Observed: 12/20/2023 3:46 PM Status: COMPLETED Source: [facility] Anthony Booth MD 12/13/23 6:51 AM Note Rx sent, OARRS report done, no inconsistencies, only partial prescriptions were sent and she needs an appointment IBRAHIMA to continue to get these medicines through our office Left a message to return call. 36 Observed: 12/18/2023 1:43 PM Status: COMPLETED Source: [facility] Called pt, no answer and no vm. 36 Observed: 12/15/2023 12:13 PM Status: COMPLETED Source: [facility] Referrals closed 36 Observed: 12/15/2023 12:01 PM Status: COMPLETED Source: [facility] Yes, okay to close 36 Observed: 12/15/2023 10:53 AM Status: COMPLETED Source: [facility] Pt given referral for [facility] on 03/21/23 and referral fo [facility] on 04/25/23 No response from pt to schedule appt Documentation in referrals. Okay to close referrals? 36 Observed: 12/14/2023 11:29 AM Status: COMPLETED Source: [facility] Anthony Booth MD 12/13/23 6:51 AM Note Rx sent, OARRS report done, no inconsistencies, only partial prescriptions were sent and she needs an appointment IBRAHIMA to continue to get these medicines through our office Left a message to return call. 36 Observed: 12/13/2023 10:28 AM Status: COMPLETED Source: [facility] Anthony Booth MD 12/13/23 6:51 AM Note Rx sent, OARRS report done, no inconsistencies, only partial prescriptions were sent and she needs an appointment IBRAHIMA to continue to get these medicines through our office Left a message to return call. 36 Observed: 12/13/2023 6:51 AM Status: COMPLETED Source: [facility] Rx sent, OARRS report done, no inconsistencies, only partial prescriptions were sent and she needs an appointment IBRAHIMA to continue to get these medicines through our office 36 Observed: 12/12/2023 4:51 PM Status: COMPLETED Source: [facility] CSA 06/27/23-Lizbethkori 36 Observed: 12/12/2023 3:52 PM Status: COMPLETED Source: [facility] Ordering provider: Dhaval Moon Date of last [...] Date of last refill (see medication tab): 10/24/23(3) Medication name: albuterol 108 (90 Base) MCG/ACT [...] of last refill (see medication tab): 10/24/23 36 Observed: 11/28/2023 8:45 AM Status: COMPLETED Source: [facility] Write.my [facility] No patient response. Closed 36 Observed: 11/03/2023 12:39 PM Status: COMPLETED Source: [facility] My Chart message ALLERGIES DATE TYPE / CODE NAME / CODE REACTION SEVERITY SOURCE 09/28/2024 Drug Class/777590950(SNO MED CT) PENICILLINS 2 - Hives Medium [facility] 09/24/2024 DRUG INGREDI/[id number](S NOMED CT) PENICILLIN G Unknown [facility] 11/11/2002 Drug Class/662073547(SNO MED CT) PENICILLINS HIVES [facility] ENCOUNTERS ADMIT/DISCHARGE ACCOUNT NUMBER ADMITTING ENCOUNTER CLASS LOCATION SOURCE 10/30/2024/10/31/19 25 [id number] [facility] g:EEMRoom: EPITBed: EPIT [facility] 10/29/2024/10/30/19 25 [id number] Emergency Building:CE DRoom: 11Bed: 11 [facility] 10/12/2024/10/13/19 25 [id number] [facility] EDBed: 09 [facility] 10/05/2024/10/06/19 25 [id number] Emergency Building:CE DRoom: 12Bed: 12 [facility] 10/04/2024/10/05/19 25 [id number] Ambulatory Building:ED MGRoom: B27Bed: [address] [place] [address] 10/03/2024/10/04/19 25 [id number] Emergency Building: CEEDRoom: [facility]36Bed: [facility]36 [facility] 10/01/2024/10/03/19 25 [id number] Emergency Building:ED MRRoom: G91Bed: 91 [facility] 09/28/2024/09/29/19 25 [id number] Emergency Building: CEEDRoom: [facility]36Bed: BP36 [facility] 09/27/2024/09/29/19 25 [id number] Emergency Building:ED BDRoom: G34Bed: 34 [facility] 09/24/2024/09/27/19 25 [id number] TIGIST SHANNON [facility]: 01 [facility] 08/23/2024 [id number] [facility] Albert g:EEM [facility] 08/12/2024/08/13/19 [id number] [facility] Albert g:EEMRoom: EEOTFBed: EEOTF [facility] 07/09/2024/07/10/19 [id number] Ambulatory Buildin [id number] [facility] PAYERS ENCOUNTER GUARANTOR PAYER SUBSCRIBER SOURCE 10/30/2024 DHAVAL JULIANOB: [id number] [place] [address]Ybp: ~(23 4 (HP) Primary Insurance:[employer] MEDICAID COMMUNITY PLANPolicy Number: [id number] Date:3913-77-29Dyjm Name:ARCHANA DHAVAL JULIANOB: [id number] [place], [place] [address]Lym: (HP) [facility] 10/29/2024 DHAVAL JULIANOB: [id number] [place] [address]Zqi: (HP) Primary Insurance:[facility] PLPolicy Number: [id number] Date:7299-18-01RZ[address] [address]MF: DHAVAL JULIANOB: [id number] [place] [address]Ftj: (HP) [facility] 10/12/2024 Primary Insuranc e:[facility] COMMUNITY PLAN MEDICAID [facility]Policy Number: [id number] Date:6937-30-77Otlt Name:Jason DHAVAL JULIANOB: [id number] [place] [address] [facility] 10/05/2024 DHAVAL JULIANOB: [id number] [place] [address]Kew: (HP) Primary Insurance:[facility] PLPolicy Number: [id number] Date:4741-33-81PI [address] [address]OK: DHAVAL Mendosa PITTMANDOB: [id number] [place] [address]Hlt: (HP) [facility] 10/04/2024 DHAVAL PITTMANDOB: [place] [address]Uxp: (HP) Primary Insurance:[facility] MEDICAIDPolicy Number: [id number] Date:3132-57-53DY [address] [address]US: DHAVAL PITTMANDOB: [id number] [place] [address] [facility] 10/04/2024 Secondary Insurance:[facility] MANAGED MEDICAIDPolicy Number: [id number] Date:7668-36-46YY [place] [address]WP: DHAVAL PITTMANDOB: [id number] [place] [address] [facility] 10/03/2024 DHAVAL PITTMANDOB: [place] [address]Hoe: (HP) Primary Insurance:[facility] MEDICAIDPolicy Number: [id number] Date:2024-02-14 DHAVAL PITTMANDOB: [id number] [place] [address] [facility] 10/01/2024 DHAVAL PITTMANDOB: [place] [address]Gwp: (HP) Primary Insurance:[facility] MANAGED MEDICAIDPolicy Number: [id number] Date:9852-96-18IM [address] [address]YJ: DHAVAL PITTMANDOB: [id number] [place] [address] [facility] 10/01/2024 Secondary Insurance:[facility] MANAGED MEDICAIDPolicy Number: [id number] Date:3812-05-14PN[address] [address]DX: DHAVAL PITTMANDOB: [id number] [place] [address] [facility] 09/28/2024 DHAVAL PITTMANDOB: [place] [address]Tav: (HP) Primary Insurance:[facility] MEDICAIDPolicy Number: [id number] Date:2024-02-14 DHAVAL PITTMANDOB: [id number] [place] [address] [facility] 09/27/2024 DHAVAL PITTMANDOB: [place] [address]Jhf: (HP) Primary Insurance:[facility] MANAGED MEDICAIDPolicy Number: [id number] Date:3820-21-05DY[address] [address]FE: DHAVAL ALMANZARANDOB: [id number] [place] [address] [facility] 09/27/2024 Secondary Insurance:[facility] MANAGED MEDICAIDPolicy Number: [id number] Date:0541-78-52GE[address] [address]YT: DHAVAL RODRIGUEZTMANDOB: [id number] [place] [address] [facility] 09/24/2024 DHAVAL PITTMANDOB: [place] [address]Ugp: (HP) Primary Insurance:[facility] MANAGED MEDICAIDPolicy Number: [id number] Date:8608-43-96JD[address] [address]OB: DHAVAL RODRIGUEZTMANDOB: [id number] [place] [address] [facility] 09/24/2024 Secondary Insurance:[facility] MANAGED MEDICAIDPolicy Number: [id number] Date:7046-59-18AU [address] [address]DR: DHAVAL JULIANOB: [id number] [place] [address] [facility] 08/23/2024 DHAVAL ALMANZARANDOB: [id number] [place], [place] [address]Qgw: (HP) Primary Insurance:[facility] MEDICAID COMMUNITY PLANPolicy Number: [id number] Date:2889-98-58Azyq Name:ARCHANA JULIANOB: [id number] [place], [place] [address]Zoc: (HP) [facility] 08/12/2024 DHAVAL JULIANOB: [id number] [place] [address]Myq: (HP) Primary Insurance:[facility] MEDICAID COMMUNITY PLANPolicy Number: [id number] Date:9304-63-80Mwhy Name:ARCHANA JULIANOB: [id number] [place], [place] [address]Bps: (HP) [facility] 07/09/2024 Primary Insurance:[facility] MEDICAIDPolicy Number: [id number] Date:5552-86-32Meoc Name:Medicaid HMO DHAVAL ALMANZARANDOB: [id number] [place] [address] [facility]
[2024-11-11 03:18] VITALS: BP 166/122; PULSE 124; RESP 18; TEMP 36.5; O2SAT 100; BMI 44.6
--- NOTE | 2024-11-11 03:59 | EKG12_ITS ---
Test Reason : ANXIETY Blood Pressure : */* mmHG Vent. Rate : 116 BPM Atrial Rate : 116 BPM P-R Int : 154 ms QRS Dur : 82 ms QT Int : 334 ms P-R-T Axes : 0 40 45 degrees QTcB Int : 464 ms Sinus tachycardia Nonspecific T wave abnormality Abnormal ECG Confirmed by DANIELITO AZAR, MARK ([id number]), legal editor LUIS ALBERTO GILBERT ([id number]) on 11/12/2024 8:02:28 AM Referred By: Confirmed By: MARK ESTEVES MD
--- NOTE | 2024-11-11 04:04 | EX.ED.DYSGE1 ---
HPI History of Present Illness Chief Complaint: Anxiety Narrative Narrative: Patient is a 24-year-old female with past medical history of substance abuse, bipolar disorder, hypertension, PTSD, anxiety, depression who presented to the emergency department with a chief complaint of feeling anxious and feeling like her heart is racing in the chest. States that she smoked weed earlier and notes that the symptoms started afterwards. She also complains of some nausea and vomiting denies any recent sick contacts. [facility] Medical History Hypertension Substance abuse History of bipolar disorder History of schizophrenia Schizo affective schizophrenia Bipolar 1 disorder Alcohol abuse PTSD (post-traumatic stress disorder) Depression Anxiety Home Medications Medication Instructions Recorded Last Taken Type albuterol sulfate 90 mcg/actuation 2 puff inhalation Q6H PRN PRN 07/14/24 Unknown History aerosol inhaler wheezing fluticasone propionate 45 2 inh inhalation Q12H 07/14/24 Unknown History mcg-salmeterol 21 mcg/actuation HFA inhaler (Advair HFA) folic acid 1 mg tablet 1 mg PO DAILY 07/14/24 Unknown History hydroxyzine pamoate 25 mg capsule 50 mg PO Q8H PRN PRN anxiety 07/14/24 Unknown History losartan 50 mg tablet 50 mg PO DAILY 07/14/24 Unknown History metoprolol succinate 25 mg 25 mg PO BID 07/14/24 Unknown History tablet,extended release 24 hr multivitamin 1 tab PO DAILY 07/14/24 Unknown History olanzapine 5 mg tablet 5 mg PO QHS 07/14/24 Unknown History omeprazole 20 mg capsule,delayed 20 mg PO DAILY 07/14/24 Unknown History release vitamin B complex-folic acid 0.4 1 tab PO DAILY 07/14/24 Unknown History mg tablet (B Complex 1 (with folic acid)) Allergy/AdvReac Type Severity Reaction Status Date / Time Penicillins (PCN) Allergy Hives Verified 11/11/24 03:18 pine nut Allergy Hives Verified 11/11/24 03:18 Social History Smoking Status: Current some day smoker tobacco type: cigarettes and e-cigarettes substance use type: methamphetamine ROS ROS ED ROS Narrative Constitutional: Denies any fevers, chills, headaches, lightheadedness, dizziness Eyes: Denies double vision blurry vision Cardiovascular: Complains of palpitations denies chest pain Respiratory: Denies coughing wheezing shortness of breath Abdomen: Denies abdominal pain diarrhea complains of nausea and vomiting : Denies any urinary symptoms Neurological: Denies any numbness, weeks, tingling Musculoskeletal: Denies back pain Skin: Denies any rashes or lesions EXAM Physical Exam Narrative Exam Narrative: General: Patient lying in bed rest comfortably did not appear to be in acute distress Head: Atraumatic, normocephalic Eyes: PERRL bilaterally, EOMI bilaterally, no conjunctival injection noted Neck: Soft, supple, trachea midline Cardiovascular: Patient tachycardic with a regular rhythm Respiratory: Clear to auscultation bilaterally Abdomen: Soft, nondistended, no tenderness to palpation Extremities: +5/5 strength noted in the bilateral upper and lower extremities Neurological: Patient follow commands that she was at [facility] years 2024 Skin: Warm, dry, intact no rashes or lesions noted Const Vital Signs: 11/11/24 03:18 Temperature 97.7 F L Temperature Source Oral Pulse Rate 124 H Respiratory Rate 18 Blood Pressure 166/122 H Blood Pressure Mean 136 Pulse Ox 100 Oxygen Delivery Method Room Air MDM MDM MDM Narrative Medical decision making narrative: Patient is a 24-year-old female who presents to the emergency department the chief complaint of palpitations, nausea vomiting after smoking marijuana. On the differential diagnose includes but limited to , viral gastroenteritis, cyclical vomiting syndrome from cannabis use. Once workup is obtained reviewed she will be reevaluated. Patient was given Zofran and Haldol. Patient chest x-ray reviewed by myself by radiology and showed no acute processes. Patient was EKG reviewed which showed sinus tachycardia the rate of 116 bpm. test negative On reevaluation the patient she is feeling much better she would like to go home at this point in time. She advised to follow-up with doctor outpatient and return with worsening symptoms or concerns. All question concerns answered she is discharged home in stable condition. Lab Data Labs: Laboratory Results - last 24 hr 11/11/24 04:17 Urine Test Negative Radiography Diagnostic Testing: Clinical Impression(s) from Imaging Studies Chest X-Ray 11/11/24 04:10 IMPRESSION: No acute process is identified in the chest. Reading Location: [facility] Discharge Plan Triage Chief Complaint: Anxiety ED Provider: Bharat Pinedo Dx/Rx/DC Orders Clinical Impression: Anxiety, Palpitations Prescriptions: No Action losartan 50 mg tablet 50 mg PO DAILY metoprolol succinate 25 mg tablet extended release 24 hr 25 mg PO BID albuterol sulfate 90 mcg/actuation HFA aerosol inhaler 2 puff inhalation Q6H PRN PRN (Reason: wheezing) fluticasone propion-salmeterol [Advair HFA] 45-21 mcg/actuation HFA aerosol inhaler 2 inh inhalation Q12H multivitamin Tablet 1 tab PO DAILY olanzapine 5 mg tablet 5 mg PO QHS omeprazole 20 mg capsule,delayed release(DR/EC) 20 mg PO DAILY folic acid 1 mg tablet 1 mg PO DAILY hydroxyzine pamoate 25 mg capsule 50 mg PO Q8H PRN PRN (Reason: anxiety) vitamin B complex-folic acid [B Complex 1 (with folic acid)] 0.4 mg tablet 1 tab PO DAILY Primary Care Provider: Anthony Shepard Referrals: Anthony Shepard MD [Primary Care Provider, Family Practice] Activity Restrictions/Additional Instructions: Follow-up your doctor in the outpatient setting. Your EKG and your chest x-ray did not show any acute findings today. Return with worsening symptoms or any other concerns Print Language: Khmer Disposition Disposition: Home, Self Care
--- NOTE | 2024-11-11 04:10 | RAD_ITS ---
PROCEDURE: CHEST 1 VIEW (PORTABLE) 11/11/2024 REASON FOR EXAM: PALPITATIONS TECHNIQUE: Frontal view of the chest. COMPARISON: August 03, 2024 FINDINGS: Heart size is upper normal. Central vascularity appears normal. There is no focal infiltrate or consolidation. There is no pneumothorax or effusion. There is no acute bony abnormality. There is no visible atherosclerosis. RAD/Chest 1 View (Portable) IMPRESSION: No acute process is identified in the chest. Reading Location: [facility]
[2024-11-11 04:27] LABS: Internal QC Validated? YES +Cl - CLEAR BKGD; Pregnancy, Urine Negative Negative; Record Kit Lot#,Urine Preg 0000964736
[2024-11-11 06:23] VITALS: BP 118/74; PULSE 81; RESP 16; TEMP 36.6; O2SAT 99
== END 2024-11-11 06:23 | disposition home or self-care (01) ==
PROVIDERS: Emergency Provider Emergency Medicine; PCP Family Medicine; Visit Provider Emergency Medicine
DX: F41.9 Anxiety disorder, unspecified (principal); R00.2 Palpitations; I10 Essential (primary) hypertension; F17.210 Nicotine dependence, cigarettes, uncomplicated; F17.290 Nicotine dependence, other tobacco product, uncomplicated; Z79.899 Other long term (current) drug therapy
CPT/HCPCS: 71045; 81025; 93005; 96372; 99284

== ENCOUNTER 2024-11-13 07:08 | Emergency (ER) | payer MEDICAID, SELFPAY ==
[2024-11-13 07:09] VITALS: BP 123/84; PULSE 100; RESP 16; TEMP 36.5; O2SAT 97; BMI 43.3
--- NOTE | 2024-11-13 07:25 | ED.VIS.LOWEX ---
HPI History of Present Illness Chief Complaint: Lower Extremity Injury Detail of Chief Complaint: Left ankle injury Informant: patient Narrative Narrative: Patient presents to the emergency department after sustaining a left ankle injury this morning. Patient states that she was having an asthma attack and was walking to get her inhaler from her friend's house when she stepped on a walnut and rolled her ankle. Patient able to bear some weight afterwards. Denies any other injuries. She called EMS who brought her in for evaluation. Denies recent illness [facility] Medical History Hypertension Substance abuse History of bipolar disorder History of schizophrenia Schizo affective schizophrenia Bipolar 1 disorder Alcohol abuse PTSD (post-traumatic stress disorder) Depression Anxiety Home Medications ?Medication ?Instructions ?Recorded ?Last Taken ?Type albuterol sulfate 90 mcg/actuation 2 puff inhalation Q6H PRN PRN 07/14/24 Unknown History aerosol inhaler wheezing fluticasone propionate 45 2 inh inhalation Q12H 07/14/24 Unknown History mcg-salmeterol 21 mcg/actuation HFA inhaler (Advair HFA) folic acid 1 mg tablet 1 mg PO DAILY 07/14/24 Unknown History hydroxyzine pamoate 25 mg capsule 50 mg PO Q8H PRN PRN anxiety 07/14/24 Unknown History losartan 50 mg tablet 50 mg PO DAILY 07/14/24 Unknown History metoprolol succinate 25 mg 25 mg PO BID 07/14/24 Unknown History tablet,extended release 24 hr multivitamin 1 tab PO DAILY 07/14/24 Unknown History olanzapine 5 mg tablet 5 mg PO QHS 07/14/24 Unknown History omeprazole 20 mg capsule,delayed 20 mg PO DAILY 07/14/24 Unknown History release vitamin B complex-folic acid 0.4 1 tab PO DAILY 07/14/24 Unknown History mg tablet (B Complex 1 (with folic acid)) Allergy/AdvReac Type Severity Reaction Status Date / Time Penicillins (PCN) Allergy Hives Verified 11/13/24 07:11 pine nut Allergy Hives Verified 11/13/24 07:11 Social History Smoking Status: Current some day smoker tobacco type: cigarettes and e-cigarettes substance use type: methamphetamine ROS ROS ED Review of Systems ROS Unobtainable: other Constitutional Constitutional ED: Reports lethargy; Denies chills, fever(s), sweats or weight loss Eyes Eyes: Denies blurry vision, change in vision or diplopia ENT ENT ED: Denies rhinorrhea or sore throat Cardiovascular Cardiovascular: Denies chest pain, orthopnea or racing heartbeat Respiratory/Chest Respiratory/Chest: Reports dyspnea; Denies cough, dyspnea on exertion, orthopnea or sputum Gastrointestinal Gastrointestinal: Denies abdominal pain, diarrhea, nausea or vomiting Genitourinary Genitourinary ED: Denies dysuria, hematuria or urinary frequency Musculoskeletal Musculoskeletal: Reports other Details: Left ankle injury/pain ; Denies arthralgias, back pain, myalgias or neck pain Integumentary Denies abscess, Abrasions or rash Neurologic Neurologic: Denies headache(s) or weakness Psychiatric Psychiatric: Denies anxiety, depression or suicidal thoughts Endocrine Endocrinology: Denies polydipsia, polyphagia or polyuria Hematologic/Lymphatic Hematologic/Lymphatic: Denies easy bleeding, easy bruising or lymphadenopathy Allergic/Immunologic Allergic/Immunologic ED: Denies mouth swelling, tongue swelling or urticaria EXAM Physical Exam Const Vital Signs: 11/13/24 07:09 11/13/24 07:35 Temperature 97.7 F L Temperature Source Oral Pulse Rate 100 95 Respiratory Rate 16 16 Blood Pressure 123/84 H Blood Pressure Mean 97 Pulse Ox 97 Oxygen Delivery Method Room Air Positive well nourished and well developed General Appearance ED: well developed and NAD HEENT Reports TM's clear and moist mucous membranes normocephalic and atraumatic; Negative for trauma or tenderness Tympanic Membrane ED: Yes TM's clear Eyes PERRL and EOMs intact bilaterally General Eye ED: Negative for pale conjunctiva or scleral icterus Neck no lymphadenopathy, supple and no JVD General: Negative for tenderness Chest Wall inspection of chest normal and palpation of chest normal Chest: Negative for tenderness Resp normal respiratory effort and clear to auscultation bilaterally Resp Narrative: No significant tachypnea or conversational dyspnea. She has some faint expiratory wheezes bilaterally. Effort and Inspection: Negative for respiratory distress or pain with movement Auscultation: wheezes; Negative for rhonchi or diminished lung sounds Cardio regular rate, regular rhythm, S1 normal heart sound, S2 normal heart sound and no murmurs Peripheral Pulses: pulses 2+ throughout GI normal to inspection, nondistended, normoactive bowel sounds, soft to palpation, non-tender, non-distended and no masses Back/Spine no CVA tenderness and no thoracic nor lumbar tenderness Extremity Extremity Narrative: Left ankle-patient has soft tissue swelling over the lateral malleolus with tenderness to palpation. She has no pain at the proximal fibular head. No pain at the base of the fifth metatarsal. She is neurovascular intact distally. General Extremety ED: Negative for edema General Extremity: Negative for edema Neuro oriented x3, CN's II-XII intact bilaterally, no sensory deficits noted and gait normal Sensorium / Orientation: awake, alert, oriented to person, oriented to place and oriented to time Motor Exam: strength 5/5 throughout and strength abnormal Psych mental status grossly normal Skin no rashes or lesions noted and no wounds MDM MDM MDM Narrative Medical decision making narrative: Patient presents to the emergency department with complaint of injury to her left ankle. No other injuries noted. Also has history of asthma and was complaining of some mild dyspnea. I did give her a DuoNeb aerosol. X-rays of the left ankle were obtained which showed no fractures. I went back into speak with the patient and do exit interview however she had eloped from the department with her significant other. Radiography Diagnostic Testing: Clinical Impression(s) from Imaging Studies Ankle X-Ray 11/13/24 07:50 IMPRESSION: On lateral imaging, normal contour of the Achilles tendon is seen. There is probably a small ankle joint effusion. Soft tissue swelling is seen over the lateral malleolus. Satisfactory osseous alignment is noted. The ankle mortise appears intact. No fracture or dislocation is seen. If clinical concern persists, short-term follow-up imaging may be obtained to rule out a currently occult fracture. Reading Location: [address] Three-view x-rays of the left ankle obtained interpreted by myself as no evidence of fracture or dislocation or acute process. Radiology in agreement. Discharge Plan Triage Chief Complaint: Lower Extremity Injury ED Provider: Nas Schilling Dx/Rx/DC Orders Clinical Impression: Left ankle sprain, Asthma Prescriptions: No Action losartan 50 mg tablet 50 mg PO DAILY metoprolol succinate 25 mg tablet extended release 24 hr 25 mg PO BID albuterol sulfate 90 mcg/actuation HFA aerosol inhaler 2 puff inhalation Q6H PRN PRN (Reason: wheezing) fluticasone propion-salmeterol [Advair HFA] 45-21 mcg/actuation HFA aerosol inhaler 2 inh inhalation Q12H multivitamin Tablet 1 tab PO DAILY olanzapine 5 mg tablet 5 mg PO QHS omeprazole 20 mg capsule,delayed release(DR/EC) 20 mg PO DAILY folic acid 1 mg tablet 1 mg PO DAILY hydroxyzine pamoate 25 mg capsule 50 mg PO Q8H PRN PRN (Reason: anxiety) vitamin B complex-folic acid [B Complex 1 (with folic acid)] 0.4 mg tablet 1 tab PO DAILY Primary Care Provider: Anthony Shepard Referrals: Anthony Shepard MD [Primary Care Provider, Family Practice] Print Language: Macedonian Disposition Disposition: Elopement
[2024-11-13 07:35] VITALS: PULSE 95; RESP 16
--- NOTE | 2024-11-13 07:50 | RAD_ITS ---
PROCEDURE: ANKLE MIN 3 VIEWS N/A REASON FOR EXAM: INJURY TECHNIQUE: Procedure Code: RADANK Modality: DX Procedure: ANKLE MIN 3 VIEWS Laterality: Left COMPARISON: None. RAD/Ankle min 3 Views IMPRESSION: On lateral imaging, normal contour of the Achilles tendon is seen. There is probably a small ankle joint effusion. Soft tissue swelling is seen over the lateral malleolus. Satisfactory osseous alignment is noted. The ankle mortise appears intact. No fracture or dislocation is seen. If clinical concern persists, short-term follow-up imaging may be obtained to r ule out a currently occult fracture. Reading Location: [id number]
== END 2024-11-13 08:40 | disposition left against medical advice (07) ==
PROVIDERS: Emergency Provider Emergency Medicine; PCP Family Medicine; Visit Provider Emergency Medicine
DX: S93.402A Sprain of unspecified ligament of left ankle, initial encounter (principal); F20.9 Schizophrenia, unspecified; F15.20 Other stimulant dependence, uncomplicated; F14.10 Cocaine abuse, uncomplicated; F31.9 Bipolar disorder, unspecified; J45.909 Unspecified asthma, uncomplicated; F17.210 Nicotine dependence, cigarettes, uncomplicated; F17.290 Nicotine dependence, other tobacco product, uncomplicated; F10.129 Alcohol abuse with intoxication, unspecified; R45.851 Suicidal ideations; I10 Essential (primary) hypertension; X58.XXXA Exposure to other specified factors, initial encounter
CPT/HCPCS: 73610; 80053; 80307; 82077; 84703; 85025; 94640; 96361; 96374; 96375; 99283; 99285; A4216; J2405

== ENCOUNTER 2024-11-13 19:54 | Emergency (ER) | payer MEDICAID, SELFPAY ==
[2024-11-13 19:56] VITALS: BP 116/80; PULSE 101; RESP 18; TEMP 36.8; O2SAT 97
[2024-11-13] MEDS: 0.9% Normal Saline (1000mL) 1,000 ML 1000 ML IV (20:45)
--- NOTE | 2024-11-13 20:57 | EX.ED.DYSGE1 ---
HPI History of Present Illness Chief Complaint: Suicidal Narrative Narrative: Chief complaint and HPI: 24-year-old female with past medical history of substance abuse including methamphetamine and cocaine, schizophrenia, bipolar disorder, PTSD, depression, anxiety, alcohol abuse presents as a pink slip from the police department for suicidal ideation and alcohol intoxication. Patient was seen earlier in our emergency department secondary to left ankle pain after an injury. She left before results were reported to her. She had an x-ray that was negative for fracture. Diagnosed with a left ankle sprain. Patient states she was sober for 5 months but started drinking alcohol again. States she became overwhelmed this evening stating that she does not want to live. She does not have a plan. No homicidal ideation. No visual or auditory hallucinations. States she would like detox. Review of systems: See HPI Medications: As listed on the chart Allergies: As listed on the chart PFSH: Per chart Vital signs: As listed on the chart. Reviewed. Physical exam: Gen: A&O x3 but intoxicated, tearful Head: Normocephalic, atraumatic Eyes: No sclera icterus, conjunctiva clear, PERRL ENT: Moist mucous membranes Neck: Trachea midline CV: RRR, no murmurs Resp: Lungs CTA BL, no w/r/c GI: Abd soft, non-distended, non-tender, no r/r/g Musc: Normal ambulation, full ROM, no deformity, mild swelling to the left ankle compared to the right from ankle sprain, DP/PT pulses +2 bilaterally Skin: Warm, dry Neuro: Alert, oriented, grossly intact, sensation intact Psych: Cooperative, appropriate mood and affect [facility] Medical History Hypertension Substance abuse History of bipolar disorder History of schizophrenia Schizo affective schizophrenia Bipolar 1 disorder Alcohol abuse PTSD (post-traumatic stress disorder) Depression Anxiety Home Medications ?Medication ?Instructions ?Recorded ?Last Taken ?Type albuterol sulfate 90 mcg/actuation 2 puff inhalation Q6H PRN PRN 07/14/24 Unknown History aerosol inhaler wheezing fluticasone propionate 45 2 inh inhalation Q12H 07/14/24 Unknown History mcg-salmeterol 21 mcg/actuation HFA inhaler (Advair HFA) folic acid 1 mg tablet 1 mg PO DAILY 07/14/24 Unknown History hydroxyzine pamoate 25 mg capsule 50 mg PO Q8H PRN PRN anxiety 07/14/24 Unknown History losartan 50 mg tablet 50 mg PO DAILY 07/14/24 Unknown History metoprolol succinate 25 mg 25 mg PO BID 07/14/24 Unknown History tablet,extended release 24 hr multivitamin 1 tab PO DAILY 07/14/24 Unknown History olanzapine 5 mg tablet 5 mg PO QHS 07/14/24 Unknown History omeprazole 20 mg capsule,delayed 20 mg PO DAILY 07/14/24 Unknown History release vitamin B complex-folic acid 0.4 1 tab PO DAILY 07/14/24 Unknown History mg tablet (B Complex 1 (with folic acid)) Allergy/AdvReac Type Severity Reaction Status Date / Time Penicillins (PCN) Allergy Hives Verified 11/13/24 20:00 pine nut Allergy Hives Verified 11/13/24 20:00 Social History Smoking Status: Current some day smoker tobacco type: cigarettes and e-cigarettes substance use type: methamphetamine EXAM Physical Exam Const Vital Signs: 11/13/24 19:56 11/13/24 21:00 11/13/24 22:00 Temperature 98.2 F Temperature Source Oral Pulse Rate 101 H 85 98 Respiratory Rate 18 16 16 Blood Pressure 116/80 107/63 118/58 L Blood Pressure Mean 92 77 78 Blood Pressure Source Blood Pressure Position Blood Pressure Location Pulse Ox 97 100 98 Oxygen Delivery Method Room Air Room Air Room Air 11/13/24 22:00 11/13/24 23:00 11/14/24 00:00 Temperature 98.2 F 98.3 F Temperature Source Oral Oral Pulse Rate 98 98 107 H Respiratory Rate 16 18 18 Blood Pressure 118/58 L 149/79 H 132/84 H Blood Pressure Mean 78 102 100 Blood Pressure Source Monitor Blood Pressure Position Left Lateral Blood Pressure Location Right Arm Pulse Ox 98 98 93 Oxygen Delivery Method Room Air Room Air Room Air MDM MDM MDM Narrative Medical decision making narrative: 24-year-old female with past medical history of substance abuse including methamphetamine and cocaine, schizophrenia, bipolar disorder, PTSD, depression, anxiety, alcohol abuse presents as a pink slip from the police department for suicidal ideation and alcohol intoxication. Patient was seen earlier in our emergency department secondary to left ankle pain after an injury. She left before results were reported to her. She had an x-ray that was negative for fracture. Diagnosed with a left ankle sprain. Patient states she was sober for 5 months but started drinking alcohol again. States she became overwhelmed this evening stating that she does not want to live. She does not have a plan. No homicidal ideation. No visual or auditory hallucinations. States she would like detox. Given that patient endorses suicidal ideation will continue pink slip. Patient requesting being placed for detox. NS bolus ordered. Differential diagnosis includes but is not limited to alcohol intoxication, substance abuse, depression, anxiety, suicidal ideation, electrolyte abnormality. Social work consulted. CBC without leukocytosis or anemia. CMP unremarkable. Serum negative. Urine drug screen positive for amphetamines. Alcohol level 205. Patient is anxious and requesting Ativan. This was ordered. Placed on CIWA. Social work spoke with the patient. Given patient intoxicated, will need to be cleared from a suicidal ideation standpoint before being admitted to detox center. Will repeat alcohol level and once below 100. Patient will need to be evaluated by crisis. Impression: 1. Alcohol intoxication 2. Requesting alcohol detox 3. Suicidal ideation Lab Data Labs: Laboratory Results - last 24 hr 11/13/24 11/13/24 20:15 20:50 WBC 8.4 RBC 4.26 Hgb 13.4 Hct 39.9 MCV 93.7 MCH 31.5 MCHC 33.6 RDW Std Deviation 45.2 H RDW Coeff of Jaden 13.2 Plt Count 294 MPV 10.2 Immature Gran % (Auto) 0.100 Neut % (Auto) 38.2 L Lymph % (Auto) 49.[address] [place] % (Auto) 4.9 Eos % (Auto) 6.6 H Baso % (Auto) 0.7 Absolute Neuts (auto) 3.2 Absolute Lymphs (auto) 4.14 Nucleated RBC % 0 Sodium 143 Potassium 3.6 Chloride 105 Carbon Dioxide 24.2 Anion Gap 14 BUN 7 Creatinine 0.62 L Est GFR (MDRD) Non-Af 127 BUN/Creatinine Ratio 11.6 Glucose 81 Calcium 9.0 Total Bilirubin 0.43 AST 20 ALT 13 Alkaline Phosphatase 91 Total Protein 7.5 Albumin 4.1 Globulin 3.4 Albumin/Globulin Ratio 1.2 Serum , Qual NEGATIVE Urine Opiates Screen NEGATIVE U Buprenorphine Qual NEGATIVE Ur Oxycodone Screen NEGATIVE Urine Methadone Screen NEGATIVE Urine Fentanyl Screen NEGATIVE Ur Barbiturates Screen NEGATIVE Ur Phencyclidine Scrn NEGATIVE Ur Amphetamines Screen PRESUMPTIVE POSITIVE U Benzodiazepines Scrn NEGATIVE Urine Cocaine Screen NEGATIVE U Cannabinoids Screen NEGATIVE Ethyl Alcohol 205.0 H Discharge Plan Triage Chief Complaint: Suicidal ED Provider: Paul Lewis Dx/Rx/DC Orders Prescriptions: No Action losartan 50 mg tablet 50 mg PO DAILY metoprolol succinate 25 mg tablet extended release 24 hr 25 mg PO BID albuterol sulfate 90 mcg/actuation HFA aerosol inhaler 2 puff inhalation Q6H PRN PRN (Reason: wheezing) fluticasone propion-salmeterol [Advair HFA] 45-21 mcg/actuation HFA aerosol inhaler 2 inh inhalation Q12H multivitamin Tablet 1 tab PO DAILY olanzapine 5 mg tablet 5 mg PO QHS omeprazole 20 mg capsule,delayed release(DR/EC) 20 mg PO DAILY folic acid 1 mg tablet 1 mg PO DAILY hydroxyzine pamoate 25 mg capsule 50 mg PO Q8H PRN PRN (Reason: anxiety) vitamin B complex-folic acid [B Complex 1 (with folic acid)] 0.4 mg tablet 1 tab PO DAILY Primary Care Provider: Anthony Shepard Referrals: Anthony Shepard MD [Primary Care Provider, Family Practice] Print Language: British
[2024-11-13 21:00] VITALS: BP 107/63; PULSE 85; RESP 16; O2SAT 100
[2024-11-13 21:09] LABS: Hematocrit 39.9 % (37-47); Hemoglobin 13.4 g/dL (12.0-15.0); Immature Granulocytes Count 0.010 X10^3/uL (0.0-0.0); Mean Corp Hgb Conc 33.6 g/dL (32-36); Mean Corpuscular Volume 93.7 fL (81-99); Mean Platelet Vol. 10.2 fl (6.2-12.0); NRBC Flagged by Analyzer 0 % (0-5); Platelet Count 294 K/mm3 (150-450); RBC Distribution Width CV 13.2 % (11.6-14.6); RBC Distribution Width SD 45.2 fl (35.1-43.9); Red Blood Count 4.26 M/mm3 (4.2-5.4); White Blood Count 8.4 K/mm3 (4.4-11.0)
[2024-11-13 21:32] LABS: Alcohol, Blood (Medical)-Serum 205.0 mg/dL (<=10.0)
[2024-11-13 21:35] LABS: Barbiturate Urine NEGATIVE (< 200 ng/mL); Benzodiazepine Urine NEGATIVE (< 200 ng/mL); PCP Urine NEGATIVE (< 25 ng/mL); THC Urine NEGATIVE (< 50 ng/mL)
[2024-11-13 21:35] LABS: AST(SGOT) 20 U/L (<=31); Alanine Aminotransfer ALT/SGPT 13 U/L (<=34); Albumin, Serum 4.1 g/dL (3.5-5.0); Alkaline Phosphatase 91 U/L (35-104); Anion Gap 14 (5-15); BUN 7 mg/dL (4-19); BUN/Creat Ratio 11.6 RATIO (10-20); Calcium,Total 9.0 mg/dL (7.6-11.0); Carbon Dioxide 24.2 mmol/L (21.0-32.0); Chloride 105 mmol/L (98-108); Globulin 3.4 g/dL (2.2-4.2); Glucose 81 mg/dL (70-99); Potassium 3.6 mmol/L (3.3-5.1)
[2024-11-13 21:49] LABS: Internal QC Validated? YES +Cl - CLEAR BKGD; Pregnancy, Serum, hCG Quali. NEGATIVE Negative; Record Kit Lot#, Serum Preg. 980607
[2024-11-13 22:00] VITALS: BP 118/58; PULSE 98; RESP 16; TEMP 36.8; O2SAT 98
[2024-11-13 23:00] VITALS: BP 149/79; PULSE 98; RESP 18; O2SAT 98
[2024-11-14] VITALS: BP 132/84; PULSE 107; RESP 18; TEMP 36.8; O2SAT 93
[2024-11-14 01:00] VITALS: BP 139/72; PULSE 108; RESP 18; O2SAT 95
[2024-11-14 01:39] LABS: Alcohol, Blood (Medical)-Serum 112.0 mg/dL (<=10.0)
[2024-11-14 02:00] VITALS: BP 146/68; PULSE 97; RESP 18; TEMP 36.8; O2SAT 98
[2024-11-14] MEDS: Albuterol Sulfate 8 gm Inhaler (60 puffs) 2 PUFF INHALATION (02:30)
--- NOTE | 2024-11-14 02:43 | ED.RN ---
This RN redirected the patient multiple times to stay in the room. This RN witnessed the patient walking towards the back hallway and this RN followed the patient asking where the patient was going, the patient informed this RN that she was going to get water. This RN asked the patient to return to the patient's room and this RN offered to get the patient water for her. The patient states, well no, I am allowed to get water and I am going to get my own water because I am sick of asking for things. This RN informed the patient that I am able to help and willing to get the patient what she needs. The patient states, well I don't want your help, I am going to walk these halls and I am going to get my own water. You aren't going to prevent me from getting water. This RN educated the patient on staying in the room for the sake of her privacy and other patient's privacy. The patient continues to ask to leave the department, despite being told that the patient cannot leave d/t being pink slipped. This RN educated the patient on what a pink slip means, how the patient cannot leave, what we are waiting on, and why crisis cannot come currently because the patient's ETOH level is still too high after the redraw. This RN informed the patient that we would be doing a redraw at 0400 according to MD orders. The patient responded well I am sober so that should just make the pink slip go away. You cannot pink slip someone who is drunk. This RN educated the patient and the patient states well I am sober so I should be allowed to leave. This RN informed the patient that according to her blood test, she is not legally sober and therefore she cannot be evaluated by crisis, and this RN explained that she cannot leave d/t the pink slip and the PD will bring the patient back if she leaves the department. The patient states, well they would have to find me first, no one is stopping me, if I want to leave then I'm going to leave. The patient came up to the nurses' station and asked if we could call PD in order to get them to take back the pink slip because the patient believes she cannot be pink slipped if she is drunk. This RN educated the patient on how a pink slip works and how the patient needs to be seen by crisis, which means we are waiting for her alcohol level to decrease.
--- NOTE | 2024-11-14 04:06 | ED.RN ---
This RN went into the patient's room to redraw the patient's serum ETOH level. The patient requested her IV be taken out so that the patient could leave. This RN informed the patient that the patient is pink slipped and therefore cannot leave. This RN educated the patient on waiting for the blood results to come back in order for crisis to come see the patient. The patient states, well I don't want to see crisis. I don't even know why I have to see them, I was just drunk you cannot hold me against my will when I am drunk when really nothing I say when I am drunk can be held against me. This RN educated the patient on why the PD pink slipped the patient and how serious it is to have suicidal ideations and how everyone has the patient's best interest in mind. The patient restated, I am going to leave so you better take this IV out. This RN explained to the patient that it was difficult to establish IV access on the patient and if we were to give her any medications or draw more blood from the patient, then it is important that we have IV access. This RN was returning from the tube station when the patient yelled, it's kind of rude that you're gonna make me walk home with no shoes. This RN explained that the patient is not allowed to leave and therefore, we are not making her walk anywhere without shoes.
[2024-11-14 05:05] LABS: Alcohol, Blood (Medical)-Serum < 10.1 mg/dL (<=10.0)
[2024-11-14] MEDS: Lidocaine 2% Viscous15 ML UDC 15 ML PO (05:34)
[2024-11-14 06:00] VITALS: BP 136/72; PULSE 98; RESP 18; TEMP 36.8; O2SAT 99
[2024-11-14 06:31] VITALS: BP 136/72; PULSE 98; RESP 18; TEMP 36.8; O2SAT 99
== END 2024-11-14 06:33 | disposition home or self-care (01) ==
PROVIDERS: Emergency Medicine; Emergency Provider Surgery; PCP Family Medicine; Visit Provider Surgery
DX: F10.129 Alcohol abuse with intoxication, unspecified (principal); F20.9 Schizophrenia, unspecified; F15.20 Other stimulant dependence, uncomplicated; F14.10 Cocaine abuse, uncomplicated; F31.9 Bipolar disorder, unspecified; R45.851 Suicidal ideations; S93.402A Sprain of unspecified ligament of left ankle, initial encounter; I10 Essential (primary) hypertension; F17.290 Nicotine dependence, other tobacco product, uncomplicated; F17.210 Nicotine dependence, cigarettes, uncomplicated; X58.XXXA Exposure to other specified factors, initial encounter
CPT/HCPCS: 80053; 80307; 82077; 84703; 85025; J2405

== ENCOUNTER 2024-11-16 04:17 | Emergency (ER) | payer MEDICAID, SELFPAY ==
[2024-11-16 04:17] VITALS: BP 141/71; PULSE 107; RESP 18; TEMP 36.7; O2SAT 100; BMI 43.3
--- OUTSIDE RECORDS SUMMARY | 2024-11-16 04:29 | XMS RPT_ITS | CCD ---
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 Name Role Phone Vanessa Booth MD Primary Care Provider OCPrimary Care, [facility] [place] Primary Car e Provider MD Zachary Armenta Emergency Provider Doctor, ED Emergency Provider Unavailable AA NO PCP, NO PCP Primary Care Unavailable HELLER DO~[id number], RAYO GOVEAOPHCECELIA J Admitting Unavailable HELLER DO~[id number], RAYO Walters Attending Unavailable JAS MONTANA Primary Care Unavailable POLLOCK DO~[id number], POLLOCK LATOSHA A Admitting Unavailable GONZALEZ DO~[id number], GONZALEZ MADIHA A Attendin g Unavailable TIFFANY MONTANA Primary Care Unavailable GODMAN DO~[id number], GODMAN TODD A Admitting Unavailable GODMAN DO~[id number], GODMAN TODD A Attending Unavailable ADRIENNE AZAR~[id number], ADRIENNE Walters Admitting Unavailable ADRIENNE AZAR~[id number], ADRIENNE Walters Attending Unavailable AA NO PCP, NO PCP Primary Care Unavailable JAS MONTANA Primary Care Unavailable GODMAN DO~[id number], GODMAN TODD A Admitting Unavailable GODMAN DO~[id number], GODMAN TODD A Attending Unavailable AA NO PCP, NO PCP Primary Care Unavailable ADRIENNE AZAR~[id number], ADRIENNE Walters Admitting Unavailable ADRIENNE AZAR~[id number], ADRIENNE Walters Attending Unavailable Doctor, ED Attending Unavailable OCPrimary Care, [facility] [place] Primary Car e Unavailable Zachary Armenta Attending Unavailable OCPrimary Care, [facility] [place] Primary Car e Unavailable Vanessa Booth Primary Care Provider [phone] VANESSA BOOTH Primary Care Unavailabl e DANNY TRAN Attending Unavailable DEVYN, VANESSA LAN Primary Care Unavailabl e EASTON OLIVARES Admitting Unavailable LUKAS YOO Attending Unavailable JAY JAY RAI Unavailable DEVYN, VANESSA LAN Primary Care Unavailabl e DEVYN, VANESSA LAN Primary Care Unavailabl e SONNY SCHULER, CHARLY BREEN Attending Reagan CALDERON MD, DR MARIAX Nelson Primary Care Physician Briana CALDERON MD, DR MARIXA Nelson Primary Care Unavailable ANAMARIA AZAR, DR WEINER Attending Unavailabl yusra MCGEE MD, SKIP Attending Unavailable KVNG AZAR, DR MARIXA Nelson Primary Care Unavailable Devyn AZAR, Dr. Cruz Primary Care Provider Dr. Maxx Lopez DO Emergency Provider Chris MARCUM, Dr. Roy Admit Provider Chris MARCUM, Dr. Roy Other Provider Lexy AZAR, Dr. Easton Bonilla Attending Provider Lexy AZAR, Dr. Easton Bonilla Other Provider Rickie Rayo MD Attending Provider Rickie Rayo MD Emergency Provider Dr. Filippo Fuentes MD Emergency Provider Dr. Amari Nicholas DO Emergency Provider Dr. Daniel Herrera DO Emergency Provider Dr. Vanessa Booth MD Primary Care Provider Dr. Filippo Fuentes MD Attending Provider Dr. Amari Nicholas DO Attending Provider Dr. Daniel Herrera DO Attending Provider Provider, Ed Physician Emergency Provider Nancie carrington Provider, Ed Physician Attending Provider Nancie Crowe MD, Dr. Leavitt Attending Provider [phone] Tree Crowe MD Emergency Provider Dr. Bharat Pinedo DO Emergency Provider [phone] Care Physician, No Primary Primary Care Provider Unavailable JUMANA KATHLEEN Attending Unavailable DEVYN, VANESSA Primary Care Unavailable BILLIE SPEARS Attending Unavailable DEVYN, VANESSA Primary Care Unavailable Devyn AZAR, Dr. Cruz Primary Care Provider [phone] Dr. Bharat Pinedo DO Attending Provider [phone] Deep Villatoro Attending Unavailable Devyn, Vanessa Primary Care Unavailable Mosteller, Kirill Admitting Unavailable Easton Pugh F Attending Unavailable Devyn, Vanessa Primary Care Unavailable MostKirill andrews Consulting Unavailable Care Physician, No Primary Primary Care Unava ilable Bharat Pinedo Attending Unavailable Devyn, Vanessa Primary Care Unavailable Amari Nicholas Attending Unavailable Devyn, Vanessa Primary Care Unavailable Aparicio, Daphnie Consulting Unavailable Aparicio, Daphnie Admitting Unavailable Drea Verma Attending Unavailable Devyn, Vanessa Primary Care Unavailable Fuetnes, Filippo Attending Unavailable Devyn, Vanessa Primary Care Unavailable Amari Nicholas Attending Unavailable Devyn, Vanessa Primary Care Unavailable Ungur, Remus Attending Unavailable Care Physician, No Primary Primary Care Unava ilable Daniel Herrera Attending Unavailable Devyn, Vanessa Primary Care Unavailable Provider, Ed Physician Attending Unavailab le Provider, Ed Physician Attending Unavailab le Devyn, Vanessa Primary Care Unavailable Rickie Rayo Attending Unavailable Devyn, Vanessa Primary Care Unavailable Devyn, Vanessa Primary Care Unavailable Tree Crowe Attending Unavailable Rubén MANAGER FLOOR, [facility] Primary Care Unavailable Shakir, Doraus Attending Unavailable Devyn, Vanessa Primary Care Unavailable Bry Bravo Attending Unavailable Mosteller, Kirill Consulting Unavailable Fermin Pugholas F Attending Unavailable Mosteller, Kirill Admitting Unavailable Devyn, Vanessa Primary Care Unavailable Koivethonis, Easton F Consulting Unavailable Aparicio, Daphnie Attending Unavailable Devyn, Vanessa Primary Care Unavailable Devyn, Vanessa Primary Care Unavailable Daniel Herrera Attending Unavailable Devyn, Vanessa Primary Care Unavailable AndGreg navain Attending Unavailable Devyn, Vanessa Primary Care Unavailable Fuentes, Filippo Attending Unavailable Aparicio, Daphnie Consulting Unavailable Aparicio, Daphnie Admitting Unavailable Drea Verma Attending Unavailable Awilda Veramhryn Consulting Unavailable MostKirill andrews Attending Unavailable Devyn, Vanessa Primary Care Unavailable Andes, Daniel Attending Unavailable Vanessa Booth MD Primary Care Provider [phone] Mary Kay Bradley Primary Care Provider Physician, No Pcp Primary Care Provider Unavaila ble PHYSICIAN, NO PCP Primary Care Unavailable SAVANNAH GARCIA Attending Unavailable PHYSICIAN, NO PCP Primary Care Unavailable RAYMOND DUARTE Attending Unavailable Devyn AZAR, Vanessa Lan Primary Care Provider DENICE VICKERS Attending Unavailable DEVYN, VANESSA PIPER Primary Care Unavailabl e JAY JAY MARIE II Attending Unavailabl e DEVYN, VANESSA PIPER Primary Care Unavailabl e GEOVANNY DEMARCO Attending Unavailable DEVYN, VANESSA PIPER Primary Care Unavailabl e MARY KAY BRADLEY Primary Care Unavailable KEYANA KIRK Attending Unavailable SHUBHAM CURRIE Admitting Unavailable MARY KAY BRADLEY Primary Care Unavailable PABLO CUMMINGS Attending Unavailable [facility] Consulting LAISHA Lopez Consulting Unavaila EROS Gallegos Attending Unavailable VANESSA BOOTH PIPER Primary Care Unavailabl e DEVYN, VANESSA PIPER Primary Care Unavailabl AMANDA Fuentes Attending Unavailable JUANITA HUGO Attending Unavailable DEVYN, VANESSA Primary Care Unavailable DEVYN, VANESSA Primary Care Unavailable DEVYN, VANESSA Primary Care Unavailable Dr. Amari Nicholas DO Attending Physician Dr. Amari Nicholas DO Emergency Department Physi kacey Dr. Vanessa Booth MD Primary Care Physician Dr. Bharat Pinedo DO Emergency Department Physic addie Dr. Nas Schilling DO Emergency Department Physici an Dr. Paul Lewis DO Emergency Departmen t Physician Allergies Allergy Classification Reported Allergen(s) Allergy Type Date of Onset Reaction(s) Facility (20 sources) Penicillins; Translations: [PENICILLINS] Drug Allergy 3 [facility] (1 source) Penicillin Drug Allergy [facility] Repository (2 sources) Penicillins Drug allergy (disorder) 4 [facility] ([place]) Repository (3 sources) Penicillins Propensity to adverse reactions 3 [facility] (2 sources) Penicillin; Translations: [penicillins] Drug Allergy Hives, Rash [facility] (11 sources) Penicillins Allergy to substance 5 [facility] (11 sources) Victoria nut Allergy to substance 5 [facility] (7 sources) Penicillin G; Translations: [PENICILLIN G] Drug Allergy 4 [facility], [facility] (3 sources) pine bark extract Drug Allergy 4 [facility] Work Phone: Glucose Test strip (U) [Mass/Vol] Negative NEGATIVE mg/dL [facility] Hemoglobin Auto test strip Ql (U) Negative NEGATIVE [facility] Interpretation and review of laboratory results Abnormal [facility] Ketones (U) [Mass/Vol] Negative NEGAT KIMBERLY mg/dL [facility] Leukocyte esterase Test strip Ql (U) TRACE Abnormal NEGATIVE [facility] Nitrite Ql (U) Negative NEGATIVE [facility] pH (U) 6.5 [pH] 5.0 - 8.0 [facility] Protein (U) [Mass/Vol] Negative NEGAT KIMBERLY mg/dL [facility] Specific gravity (U) [Rel density] 1.022 1.000 - 1.030 [facility] Urobilinogen Qn (U) Normal 0.0 - 1. 0 EU/dL [facility] Urinalysis, Routineon 2024 Bilirubin, SemiQt,Ur Negative Normal NEG [facility] Comment on above: Performed By: #### U HCG, UA, UMICAO #### [facility] [address] [place] [address] Seed Technician: Jas Ortez DO Blood, Urine Negative Normal NEG [facility] Comment on above: Performed By: #### U HCG, UA, UMICAO #### [facility] [address] [facility] [place] [place] [address] Seed Technician: Jas Ortez DO Clarity (U) Clear Normal CLEAR [facility] Comment on above: Performed By: #### U HCG, UA, UMICAO #### [facility] [address] [facility] [place] [place] [address] Seed Technician: Jas Ortez DO Color (U) Yellow Normal YEL [facility] Comment on above: Performed By: #### U HCG, UA, UMICAO #### [facility] [place] [address] Seed Technician: Jas Ortez DO Glucose Ql (U) Negative Normal NEG [facility] Comment on above: Performed By: #### U HCG, UA, UMICAO #### [facility] [place] [place] [address] Seed Technician: Jas Ortez DO Ketones Ql (U) Negative Normal NEG [facility] Comment on above: Performed By: #### U HCG, UA, UMICAO #### [facility] [place] [address] Seed Technician: Jas Ortez DO Leukocyte esterase Test strip Ql (U) TRACE Abnormal NEG [facility] Comment on above: Performed By: #### U HCG, UA, UMICAO #### [facility] [place] [address] Seed Technician: Jas Ortez DO Nitrite,Ur Negative Normal NEG [facility] Comment on above: Performed By: #### U HCG, UA, UMICAO #### [facility] [address] [place] [address] Seed Technician: Jas Ortez DO PH,Ur 6.5 Normal 5.0-8.0 [facility] Comment on above: Performed By: #### U HCG, UA, UMICAO #### [facility] [address] [place] [address] Seed Technician: Jas Ortez DO Protein Ql (U) Negative Normal NEG [facility] Comment on above: Performed By: #### U HCG, UA, UMICAO #### [facility] [address] [place] [address] Seed Technician: Jas Ortez DO Spec. [place],Ur 1.022 Normal 1.000-1.03 0 [facility] Comment on above: Performed By: #### U HCG, UA, UMICAO #### [facility] [address] [place] [address] Seed Technician: Jas Ortez DO Urobilinogen,Ur Normal Normal 0.0-1.0 [facility] Comment on above: Performed By: #### U HCG, UA, UMICAO #### [facility] [address] [place] [address] Seed Technician: Jas Ortez DO Urinalysis,Microon 5 Bacteria FEW Abnormal NONE [facility] Comment on above: Performed By: #### U HCG, UA, UMICAO #### [facility] [address] [place] [address] Seed Technician: Jas Ortez DO Casts 0 TO 2 Abnormal NONE [facility] Comment on above: Performed By: #### U HCG, UA, UMICAO #### [facility] [address] [place] [phone] Seed Technician: Jas Ortez DO Epithelial cells LM Ql (Urine sed) 3 to 5 Normal [facility] Comment on above: Performed By: #### U HCG, UA, UMICAO #### [facility] [address] [place] [address] Seed Technician: Jas Ortez DO Urine RBC's 0 TO 2 Normal 2 [facility] Comment on above: Performed By: #### U HCG, UA, UMICAO #### [facility] [address] [place] [address] Seed Technician: Jas Ortez DO Urine WBC's 6 TO [address] Comment on above: Performed By: #### U HCG, UA, UMICAO #### [facility] [address] [facility] [place] [address] Seed Technician: Jas Ortez DO Urine Preg (Lab)on HCG ( test) Ql (U) Negative NEGATIVE [facility] Comment on above: Specimens with hCG l evels near the threshold of the test (25 mIU/mL) may give a negative or indeterminate result. In such cases, another test should be performed with a new specimen in 48-72 hours. If early is suspected clinically in this setting, correlation with quantitative serum b-hCG level is suggested. [facility] Vaginitis DNA Probeon 2024 Tani species Negative NEGATIVE [facility] Comment on above: for Tani sp. Method of testing is a DNA probe intended for detection and identification of Tani species, Gardnerella vaginalis, and Trichomonas vaginalis nucleic acid in vaginal fluid specimens from patients with symptoms of vaginitis/vaginosis. GARDNERELLA VAGINALIS Negative NEGATIVE [facility] Comment on above: for Gardnerella vagi nalis Source .VAGINAL SWAB [facility] Trichomonas Negative NEGATIVE [facility] Comment on above: for Trichomonas Vagi nalis [facility] Tani Negative Normal NEG [facility] Comment on above: Result Comment: for Tani sp. Method of testing is a DNA probe intended for detection and identification of Tani species, Gardnerella vaginalis, and Trichomonas vaginalis nucleic acid in vaginal fluid specimens from patients with symptoms of vaginitis/vaginosis. Performed By: #### D YESY, UMICAO, UAX #### [facility] [address] [place] [address] Seed Technician: Jas Ortez DO Gardnerella Negative Normal NEG [facility] Comment on above: Result Comment: for Gardnerella vaginalis Performed By: #### D YESY, UMICAO, UAX #### [facility] [address] [place] [address] Seed Technician: Jas Ortez DO Trichomonas Negative Normal NEG [facility] Comment on above: Result Comment: for Trichomonas Vaginalis Performed By: #### D AU, UMICAO, UAX #### [facility] [address] [place] [address] Seed Technician: Jas Ortez DO Source .VAGINAL SWAB Normal [facility] Comment on above: Performed By: #### D YESY, UMICAO, UAX #### [facility] [address] [place] [address] Seed Technician: Jas Ortez DO ED NOTEon 10-12-2024 ED NOTE HNO ID: [id number] Author: RADHA SKELTON RN Service: ? Author Type: Registered Nurse Type: ED Notes Filed: 10/12/2024 16:37 Note Text: DC instructions reviewed with Pt, acknowledged verbally. No further c/o voiced at this time. Discharged alert and ambulatory. [facility] ED NOTE HNO ID: [id number] Author: RADHA SKELTON RN Service: ? Author Type: Registered Nurse Type: ED Notes Filed: 10/12/2024 14:06 Note Text: Pt states that [facility] has taken her phone and belongings, won't give them back and won't give me my medications. Pt endorses that she feels like I'm a hostage. [facility] ED NOTE HNO ID: [id number] Author: RADHA SKELTON RN Service: ? Author Type: Registered Nurse Type: ED Notes Filed: 10/12/2024 13:50 Note Text: Pt has hives on bilat arms and legs. Normal [facility] ED NOTE HNO ID: [id number] Author: BARRY LAL RN Service: ? Author Type: Registered Nurse Type: ED Notes Filed: 10/12/2024 13:49 Note Text: Bed: ED-09 Expected date: Expected time: Means of arrival: [place] [facility]EMS Comments: Euc (dizziness/high blood sugar) Normal [facility] ED NOTE HNO ID: [id number] Author: RADHA SKELTON RN Service: ? Author Type: Registered Nurse Type: ED Notes Filed: 10/12/2024 13:49 Note Text: Pt presents to ED via EMS for c/o hyperglycemia per [facility] (BGL IN 400's). Pt denies having diabetes, EMS BGL was 129. Pt endorses facility has not been giving her her medications. Normal [facility] ED PROV NOTEon 10-12-2024 ED PROV NOTE HNO ID: [id number] Author: GEOVANNY DEMARCO MD Service: ? Author Type: Physician Type: ED Provider Notes Filed: 10/12/2024 15:59 Note Text: ED Provider Note Patient Name: Dhaval Moon : 2000 SERVICE DATE: 10/12/24 History Patient presents with: High Blood Sugar This is a 24-year-old female with a past medical history of methamphetamine use, alcohol use, hypertension presenting from [facility]. She states that they are not giving her her Keflex for her UTI nor her Protonix for her GERD. She states that she wants to go through alcohol detox but does not want to stay at that facility. She has been there a week. The patient states that she is originally from [place]. She was up in [place] with her boyfriend. He is currently in shelter for shoplifting. She was acutely intoxicated and taken to a hospital in [place]. She was transferred from there to [facility]. The patient currently has no complaints at [...] 111.1 kg (245 lb) 1.549 m (5' 1) Physical Exam [...] Clinical Impression Clinical Impressions as of 10/12/24 1559 Alcohol abuse Drug abuse (HCC) MDM / Disposition / Plan This is a 24-year-old female who presents from [facility] rehab for evaluation. She states she has been there about a week for alcohol rehab. She originally is from [place] and was up in [place] with her boyfriend who was put in shelter for shoplifting. At that time she was taken to a hospital in [place] and then transferred to [facility]. She has no complaints other than they are not caring for her at the facility. She states they are not giving her her Keflex for her UTI or her Protonix for her gastroesophageal reflux. She wants to be transferred to another facility. I spoke with Tahira from [facility] who states that she will look into transferring her to either [facility] or another facility. The patient is accepted at [facility]. She is discharged from the emergency department. Differential Diagnoses - Alcohol abuse is more likely for the following reason(s): suggested by HANDP - Methamphetamine abuse is more likely for the following reason(s): suggested by HANDP Disposition The patient was discharged. See MDM narrative Counseled patient regarding suspected diagnosis. SIGNATURE: Geovanny Demarco MD - [1] Social History Tobacco [...] with friend yesterday Sexual activity: Not Currently GEOVANNY DEMARCO 10/12/24 1559 Normal [facility] Cult,Urineon 10-08-2024 Cult,Urine Specimen Description .CLEAN CATCH URINE Culture PROTEUS MIRABILIS 10 to 50,000 CFU/ML Report Status FINAL 10/08/2024 SUSCEPTIBILITY Organism PROTEUS MIRABILIS Method SAVITA Ampicillin <=2 SUSCEPTIBLE Cefazolin (Non-Urine) 4 INTERMEDIATE Cefazolin (Urine) 4 SUSCEPTIBLE Urine specific interpretations are for uncomplicated UTIs only. Ceftriaxone <=0.25 SUSCEPTIBLE Gentamicin <=1 SUSCEPTIBLE Levofloxacin <=0.12 SUSCEPTIBLE Nitrofurantoin 128 RESISTANT Piperacillin/Tazobacta m <=4 SUSCEPTIBLE Trimethoprim/Sulfa <=20 SUSCEPTIBLE Susceptible [facility] Comment on above: Performed By: #### D RIZWAN HAYWARD UAJason #### [facility] [address] [place] [address] Seed Technician: Jas Ortez DO Chlamydia/GC,DNA Ampon 10-07 Chlamydia Probe Negative Normal NEG [facility] Comment on above: Result Comment: CHLA MYDIA TRACHOMATIS DNA not detected by nucleic acid amplification. [...] alternative nucleic acid target. Performed By: #### S WCGP #### [facility] [place] [address] Seed Technician: Jeffrey Parra MD Gonorrhea Probe Negative Normal NEG [facility] Comment on above: Result Comment: NEIS SERIA GONORRHOEAE DNA not detected by nucleic acid amplification. [...] alternative nucleic acid target. Performed By: #### S WCGP #### [facility] [address] [place] [address] Seed Technician: Jeffrey Parra MD CBC with Auto Differentialon 10-05-2024 Basophils (Bld) [#/Vol] B on [facility] Basophils/100 WBC (Bld) 0 % 0 - 2 % B on [facility] Eosinophils (Bld) [#/Vol] 0.11 10*3/uL [facility] Eosinophils/100 WBC (Bld) 2 % 0 - 4 % [facility] Erythrocyte distribution width (RBC) [Ratio] 13.0 % 11.5 - 14.9 % [facility] Hematocrit (Bld) [Volume fraction] 36.4 % 36.0 - 46.0 % [facility] Hemoglobin (Bld) [Mass/Vol] 11.8 g/dL Low 12.0 - 16.0 g/dL [facility] Immature granulocytes (Bld) [#/Vol] [facility] Immature granulocytes/100 WBC (Bld) 0 % 0 [facility] Interpretation and review of laboratory results Abnormal [facility] Lymphocytes/100 WBC (Bld) 44 % 24 - 44 % [facility] Lymphocytes/100 WBC (Bld) 2.75 % [facility] MCH (RBC) [Entitic mass] 30.4 pg 26. 0 - 34.0 pg [facility] MCHC (RBC) [Mass/Vol] 32.4 g/dL 31.0 - 37.0 g/dL [facility] MCV (RBC) [Entitic vol] 93.8 fL 80.0 - 100.0 fL [facility] Monocytes/100 WBC (Bld) 9 % 3 - 12 % B on [facility] Monocytes/100 WBC (Bld) 0.53 % B on [facility] Neutrophils/100 WBC (Bld) 45 % 36 - 66 % [facility] Nucleated RBC/100 WBC (Bld) [Ratio] 0.0 % 0 per 100 WBC [facility] Platelet mean volume (Bld) [Entitic vol] 10.0 fL 8.0 - 13.5 fL [facility] Platelets (Bld) [#/Vol] 276 10*3/uL [facility] RBC (Bld) [#/Vol] 3.88 10*6/uL Low 3.95 - 5.11 m/uL [facility] Segmented neutrophils/100 WBC (Bld) 2.80 % [facility] WBC other (Bld) [#/Vol] 6.2 B on [facility] CBC with Diffon 10-05-2024 Abs. Basophil <0.03 Normal 0.00-0.20 [facility] Comment on above: Performed By: #### C DP, HCG, ALCB, CP, LIP #### [facility] [address] [place] [address] Seed Technician: Jas Ortez DO Abs.Imm.Granulocyte <0.03 Normal 0.00-0.30 [facility] Comment on above: Performed By: #### C DP, HCG, ALCB, CP, LIP #### [facility] [address] [place] [address] Seed Technician: Fanelly, Jas, DO Abs.Neutrophil (Seg) 2.80 k/uL Normal 1.50-8.10 [facility] Comment on above: Performed By: #### C DP, HCG, ALCB, CP, LIP #### [facility] [address] [place] [address] Seed Technician: Jas Ortez DO Basophils/100 WBC (Bld) 0 % Normal 0-2 M [facility] Comment on above: Performed By: #### C DP, HCG, ALCB, CP, LIP #### [facility] [address] [place] [address] Seed Technician: Jas Ortez DO Eosinophils (Bld) [#/Vol] 0.11 10*3/uL Normal 0.00-0.4 4 [facility] Comment on above: Performed By: #### C DP, HCG, ALCB, CP, LIP #### [facility] [place] [address] Seed Technician: Jas Ortez DO Eosinophils/100 WBC (Bld) 2 % Normal 0-4 [facility] Comment on above: Performed By: #### C DP, HCG, ALCB, CP, LIP #### [facility] [address] [place] [address] Seed Technician: Jas Ortez DO Erythrocyte distribution width (RBC) [Ratio] 13.0 % Normal 11.5-14.9 [facility] Comment on above: Performed By: #### C DP, HCG, ALCB, CP, LIP #### [facility] [place] [address] Seed Technician: Jas Ortez DO Hematocrit (Bld) [Volume fraction] 36.4 % Normal 36.0-46.0 [facility] Comment on above: Performed By: #### C DP, HCG, ALCB, CP, LIP #### [facility] [address] [place] [address] Seed Technician: Jas Ortez DO Hemoglobin (Bld) [Mass/Vol] 11.8 g/dL Low 12.0-16.0 [facility] Comment on above: Performed By: #### C DP, HCG, ALCB, CP, LIP #### [facility] [place] [address] Seed Technician: Jas Ortez DO Immature granulocytes/100 WBC (Bld) 0 % Normal 0 [facility] Comment on above: Performed By: #### C DP, HCG, ALCB, CP, LIP #### [facility] [place] [address] Seed Technician: Jas Ortez DO Lymphocytes (Bld) [#/Vol] 2.75 10*3/uL Normal 1.10-3.7 0 [facility] Comment on above: Performed By: #### C DP, HCG, ALCB, CP, LIP #### [facility] [place] [address] Seed Technician: Jas Ortez DO Lymphocytes/100 WBC (Bld) 44 % Normal 24-44 [facility] Comment on above: Performed By: #### C DP, HCG, ALCB, CP, LIP #### [facility] [place] [address] Seed Technician: Jas Ortez DO MCH (RBC) [Entitic mass] 30.4 pg Normal 26.0-34.0 [facility] Comment on above: Performed By: #### C DP, HCG, ALCB, CP, LIP #### [facility] [place] [address] Seed Technician: Jas Ortez DO MCHC (RBC) [Mass/Vol] 32.4 g/dL Normal 31.0-37.0 [facility] Comment on above: Performed By: #### C DP, HCG, ALCB, CP, LIP #### [facility] [address] [place] [address] Seed Technician: Jas Ortez DO MCV (RBC) [Entitic vol] 93.8 fL Normal 80.0-100.0 M [facility] Comment on above: Performed By: #### C DP, HCG, ALCB, CP, LIP #### [facility] [address] [place] [address] Seed Technician: Jas Ortez DO Monocytes (Bld) [#/Vol] 0.53 10*3/uL Normal 0.10-1.20 [facility] Comment on above: Performed By: #### C DP, HCG, ALCB, CP, LIP #### [facility] [address] [facility] [place] [address] Seed Technician: Jas Ortez DO Monocytes/100 WBC (Bld) 9 % Normal 3-12 [facility] Comment on above: Performed By: #### C DP, HCG, ALCB, CP, LIP #### [facility] [place] [address] Seed Technician: Jas Ortez DO Neutrophil (Seg) 45 % Normal 36-66 [facility] Comment on above: Performed By: #### C DP, HCG, ALCB, CP, LIP #### [facility] [place] [address] Seed Technician: Jas Ortez DO NRBC Automated 0.0 per 100 WBC Normal 0 [facility] Comment on above: Performed By: #### C DP, HCG, ALCB, CP, LIP #### [facility] [address] [facility] [place] [address] Seed Technician: Jas Ortez DO Platelet mean volume (Bld) [Entitic vol] 10.0 fL Normal 8.0-13.5 [facility] Comment on above: Performed By: #### C DP, HCG, ALCB, CP, LIP #### [facility] [address] [place] [address] Seed Technician: Jas Ortez DO Platelets (Bld) [#/Vol] 276 10*3/uL Normal 150-450 [facility] Comment on above: Performed By: #### C DP, HCG, ALCB, CP, LIP #### [facility] [address] [place] [address] Seed Technician: Jas Ortez DO RBC (Bld) [#/Vol] 3.88 10*6/uL Low 3.95-5.11 [facility] Comment on above: Performed By: #### C DP, HCG, ALCB, CP, LIP #### [facility] [address] [place] [address] Seed Technician: Jas Ortez DO WBC (Bld) [#/Vol] 6.2 10*3/uL Normal 3.5-11.0 [facility] Comment on above: Performed By: #### C DP, HCG, ALCB, CP, LIP #### [facility] [address] [facility] [place] [address] Seed Technician: Jas Ortez DO Comp Metabolic Profon 2024 Albumin [Mass/Vol] 3.7 g/dL Normal 3.5-5.2 [facility] Comment on above: Performed By: #### D AU, UMICAO, UAX #### [facility] [address] [place] [address] Seed Technician: Jas Ortez DO Alkaline Phos 90 U/L Normal 35-104 [facility] Comment on above: Performed By: #### RIZWAN CAR UAX #### [facility] [address] [place] [address] Seed Technician: Jas Ortez DO ALT [Catalytic activity/Vol] 9 U/L Low 10-35 [facility] Comment on above: Performed By: #### RIZWAN CAR UAX #### [facility] [address] [place] [address] Seed Technician: Jas Oretz DO Anion gap [Moles/Vol] 13 mmol/L Normal 9-16 [facility] Comment on above: Performed By: #### RIZWAN CAR UAX #### [facility] [address] [facility] [place] [place] [address] Seed Technician: Jas Ortez DO AST [Catalytic activity/Vol] 18 U/L Normal 10-35 [facility] Comment on above: Performed By: #### RIZWAN CAR UAX #### [facility] [address] [facility] [place] [address] Seed Technician: Jas Ortez DO Bilirubin [Mass/Vol] 0.5 mg/dL Normal 0.0-1.2 [facility] Comment on above: Performed By: #### RIZWAN CAR UAX #### [facility] [address] [facility] [place] [address] Seed Technician: Jas Ortez DO Calcium [Mass/Vol] 8.5 mg/dL Low 8.6-10.4 [facility] Comment on above: Performed By: #### RIZWAN CAR UAX #### [facility] [address] [facility] [place] [address] Seed Technician: Jas Ortez DO Chloride [Moles/Vol] 107 mmol/L Normal 98-107 [facility] Comment on above: Performed By: #### RIZWAN CAR UAX #### [facility] [address] [facility] [place] [address] Seed Technician: Jas rOtez DO CO2 [Moles/Vol] 23 mmol/L Normal 20-31 [facility] Comment on above: Performed By: #### RIZWAN CAR UAX #### [facility] [address] [facility] [place] [address] Seed Technician: Jas Ortez DO Creatinine [Mass/Vol] 0.6 mg/dL Low 0.7-1.2 [facility] Comment on above: Performed By: #### RIZWAN CAR UAX #### [facility] [address] [place] [address]. [place] [address] Seed Technician: Jas Ortez DO GFR/1.73 sq M.predicted among non-blacks MDRD (S/P/Bld) [Vol rate/Area] mL/min/{1.73_m2} Normal >60 [facility] Comment on above: Result Comment: These results are not intended [...] following therapy that affects renal tubular secretion. Performed By: #### RIZWAN CAR UAX #### [facility] [place] [address] Seed Technician: Jas Ortez DO Glucose [Mass/Vol] 95 mg/dL Normal 74-99 [facility] Comment on above: Performed By: #### RIZWAN CAR UAX #### [facility] [address] [facility] [place] [address] Seed Technician: Jas Ortez DO Potassium [Moles/Vol] 3.6 mmol/L Low 3.7-5.3 [facility] Comment on above: Performed By: #### RIZWAN CAR UAX #### [facility] [address] [place] [address] Seed Technician: Jas Ortez DO Protein [Mass/Vol] 6.9 g/dL Normal 6.6-8.7 [facility] Comment on above: Performed By: #### RIZWAN CAR UAX #### [facility] [place] [address] Seed Technician: Jas Ortez DO Sodium [Moles/Vol] 143 mmol/L Normal 136-145 [facility] Comment on above: Performed By: #### RIZWAN CAR UAX #### [facility] [place] [address] Seed Technician: Jas Ortez DO Urea nitrogen [Mass/Vol] 7 mg/dL Normal 6-20 [facility] Comment on above: Performed By: #### RIZWAN CAR UAX #### [facility] [place] [address] Seed Technician: Jas Ortez DO Comprehensive Metabolic Pane atul 10-05-2024 Albumin [Mass/Vol] 3.7 g/dL 3.5 - 5.2 g/dL [facility] ALP [Catalytic activity/Vol] 90 U/L 35 - 104 U/L [facility] ALT [Catalytic activity/Vol] 9 U/L Low 10 - 35 U/L [facility] Anion gap [Moles/Vol] 13 mmol/L 9 - 16 mmol/L [facility] AST [Catalytic activity/Vol] 18 U/L 10 - 35 U/L [facility] Bilirubin [Mass/Vol] 0.5 mg/dL 0.0 - 1 .2 mg/dL [facility] Calcium [Mass/Vol] 8.5 mg/dL Low 8.6 - 10. 4 mg/dL [facility] Chloride [Moles/Vol] 107 mmol/L 98 - 10 7 mmol/L [facility] CO2 [Moles/Vol] 23 mmol/L 20 - 31 mmol/L [facility] Creatinine [Mass/Vol] 0.6 mg/dL Low 0.7 - 1.2 mg/dL [facility] Est, [place] Gall[place]ot Rate - PINF [facility] Comment on above: These results are not intended for use [...] following therapy that affects renal tubular secretion. Glucose [Mass/Vol] 95 mg/dL 74 - 99 mg/dL [facility] Potassium [Moles/Vol] 3.6 mmol/L Low 3.7 - 5.3 mmol/L [facility] Protein [Mass/Vol] 6.9 g/dL 6.6 - 8.7 g/dL [facility] Sodium [Moles/Vol] 143 mmol/L 136 - 145 mmol/L [facility] Urea nitrogen [Mass/Vol] 7 mg/dL 6 - 20 mg/dL [facility] Drug Scr, Abuse, Uron 2024 Amphetamine(s),Ur Negative Normal NEG [facility] Comment on above: Result Comment: Cuto ff: 1000 ng/mL Performed By: #### D RIZWAN HAYWARD UAX #### [facility] [address] [place] [address] Seed Technician: Jas Ortez DO Barbiturate(s),Ur Positive Abnormal NEG [facility] Comment on above: Result Comment: Cuto ff: 200 ng/ml Performed By: #### Amarjit HAYWARD, UMICAO, UAX #### [facility] [address] [place] [address]. [place] [address] Seed Technician: Jas Ortez DO Benzodiazepine(s) Positive Abnormal NEG [facility] Comment on above: Result Comment: Cuto ff: 200 ng/ml Performed By: #### RIZWAN CAR, UAX #### [facility] [address] [place] [address]. [place] [address] Seed Technician: Jas Ortez DO Cannabinoid(s),Ur Positive Abnormal NEG [facility] Comment on above: Result Comment: Cuto ff: 50 ng/ml Performed By: #### Amarjit HAYWARD UMICAO, UAX #### [facility] [address] [place] [address]. [place] [address] Seed Technician: Jas Ortez DO Cocaine Metabolite Negative Normal NEG [facility] Comment on above: Result Comment: Cuto ff: 300 ng/ml Performed By: #### RIZWAN CAR, UAX #### [facility] [address] [place] [address]. [place] [address] Seed Technician: Jas Ortez DO Fentanyl, Urine Negative Normal NEG [facility] Comment on above: Result Comment: Cuto ff: 5 ng/ml Performed By: #### RIZWAN CAR, UAX #### [facility] [address] [place] [address] Seed Technician: Jas Ortez DO Methadone Ql (U) Negative Normal NEG [facility] Comment on above: Result Comment: Cuto ff: 300 ng/ml Performed By: #### Amarjit HAYWARD, UMICAO, UAX #### [facility] [address] [place] [address]. [place] [address] Seed Technician: Jas Ortez DO Opiate(s), Ur Negative Normal NEG [facility] Comment on above: Result Comment: Cuto ff: 300 ng/ml Performed By: #### RIZWAN CAR, UAX #### [facility] [address] [facility] [place] [address] Seed Technician: Jas Ortez DO Oxycodone, Urine Negative Normal NEG [facility] Comment on above: Result Comment: Cuto ff: 100 ng/ml Performed By: #### Amarjit HAYWARD UMICAO, UAX #### [facility] [address] [facility] [place] [address] Seed Technician: Jas Ortez DO Phencyclidine, Ur Negative Normal NEG [facility] Comment on above: Result Comment: Cuto ff: 25 ng/ml Performed By: #### RIZWAN CAR, UAX #### [facility] [address] [place] [address]. [place] [address] Seed Technician: Jas Ortez DO Interpretive Info This method is a screening test to detect only these drug classes as part of a Normal [facility] Comment on above: Result Comment: medi nikki workup. Confirmatory testing by another method should be ordered if clinically indicated. Performed By: #### RIZWAN CAR, UAX #### [facility] [place] [address] Seed Technician: Jas Ortez DO Ethanolon 10-05-2024 Ethanol percent 0.140 % High NINF - 0.010 % [facility] Ethanolamine [Mass/Vol] 140 mg/dL High NINF - 10 mg/dL [facility] Ethanol Alcoholon 10-05-2024 Ethanol [Mass/Vol] 140 mg/dL High <10 [facility] Comment on above: Performed By: #### Amarjit HAYWARD, UMGRADYO, UAX #### [facility] [place] [address] Seed Technician: Jas Ortez DO Ethanol percent 0.140 % High <0.010 [facility] Comment on above: Performed By: #### D RIZWAN HAYWARD UAX #### [facility] [address] [place] [address] Seed Technician: Jas Ortez DO HCG Qualitative, Serumon HCG ( test) Ql Negative NEGATIVE B on [facility] Comment on above: Specimens with hCG l evels near the threshold of the test (25 mIU/mL) may give a negative or indeterminate result. In such cases, another test should be performed with a new specimen in 48-72 hours. If early is suspected clinically in this setting, correlation with quantitative serum b-hCG level is suggested. [facility] HCG Screen, Bloodon 10-06-19 25 HCG Screen, Blood Negative Normal NEG [facility] Comment on above: Result Comment: Spec imens with hCG levels near the threshold of the test (25 mIU/mL) may give a negative or indeterminate result. In such cases, another test should be performed with a new specimen in 48-72 hours. If early is suspected clinically in this setting, correlation with quantitative serum b-hCG level is suggested. Performed By: #### C DP, HCG, ALCB, CP, LIP #### [facility] [address] [facility] [place] [address] Seed Technician: Jas Ortez DO Lipaseon 10-05-2024 Lipase [Catalytic activity/Vol] 18 U/L 13 - 60 U/L [facility] Lipase [Catalytic activity/Vol] 18 U/L Normal 13-60 [facility] Comment on above: Performed By: #### RIZWAN CAR UAX #### [facility] [address] [facility] [place] [address] Seed Technician: Jas Ortez DO Microscopic Urinalysison Bacteria LM Ql (Urine sed) FEW Abnormal None [facility] Casts LM.LPF (Urine sed) [#/Area] 0 TO 2 Abnormal None /LPF [facility] Epithelial cells LM.HPF (Urine sed) [#/Area] 3 to 5 /HPF [facility] Interpretation and review of laboratory results Abnormal [facility] RBC LM.HPF (Urine sed) [#/Area] 51 TO 100 Abnormal 0 TO 2 /HPF [facility] WBC LM.HPF (Urine sed) [#/Area] 10 TO 20 Abnormal 0 TO 5 /HPF [facility] No Panel Informationon 10-05 Interpretation and review of laboratory results Abnormal [facility] UA w/Reflex Cultureon 2024 Bilirubin, SemiQt,Ur Negative Normal NEG [facility] Comment on above: Performed By: #### RIZWAN CAR UAX #### [facility] [address] [place] [address] Seed Technician: Jas Ortez DO Blood, Urine LARGE Abnormal NEG [facility] Comment on above: Performed By: #### RIZWAN CAR UAX #### [facility] [address] [place] [address] Seed Technician: Jas Ortez DO Clarity (U) Clear Normal CLEAR [facility] Comment on above: Performed By: #### RIZWAN CAR UAX #### [facility] [address] [place] [address] Seed Technician: Jas Ortez DO Color (U) Yellow Normal YEL [facility] Comment on above: Performed By: #### RIZWAN CAR UAX #### [facility] [address] [place] [address] Seed Technician: Jas Ortez DO Glucose Ql (U) Negative Normal NEG [facility] Comment on above: Performed By: #### RIZWAN CAR UAX #### [facility] [address] [facility] [place] [address] Seed Technician: Jas Ortez DO Ketones Ql (U) TRACE Abnormal NEG [facility] Comment on above: Performed By: #### RIZWAN CAR UAX #### [facility] [address] [facility] [place] [address] Seed Technician: Jas Ortez DO Leukocyte esterase Test strip Ql (U) SMALL Abnormal NEG [facility] Comment on above: Performed By: #### RIZWAN CAR UAX #### [facility] [place] [address] Seed Technician: Jas Ortez DO Nitrite,Ur Negative Normal NEG [facility] Comment on above: Performed By: #### RIZWAN CAR UAX #### [facility] [place] [address] Seed Technician: Jas Ortez DO PH,Ur 6.5 Normal 5.0-8.0 [facility] Comment on above: Performed By: #### RIZWAN CAR UAX #### [facility] [place] [address] Seed Technician: Jas Ortez DO Protein Ql (U) 1+ mg/dL Abnormal NEG [facility] Comment on above: Performed By: #### RIZWAN CAR UAX #### [facility] [place] [address] Seed Technician: Jas Ortez DO Spec. [place],Ur 1.021 Normal 1.000-1.03 0 [facility] Comment on above: Performed By: #### RIZWAN CAR UAX #### [facility] [place] [address] Seed Technician: Jas Ortez DO Urobilinogen,Ur ELEVATED Normal 0.0-1.0 [facility] Comment on above: Performed By: #### RIZWAN CAR UAX #### [facility] [address] [facility] [place] [address] Seed Technician: Jas Ortez DO Urinalysis with Reflex to Cu ltureon 10-05-2024 Bilirubin Ql (U) Negative NEGATIVE [facility] [place] [facility] Clarity (U) Clear Clear [facility] Color (U) Yellow Yellow [facility] Glucose Test strip (U) [Mass/Vol] Negative NEGATIVE mg/dL [facility] Hemoglobin Auto test strip Ql (U) LARGE Abnormal NEGATIVE [facility] Interpretation and review of laboratory results Abnormal [facility] Ketones (U) [Mass/Vol] TRACE Abnormal NEGAT KIMBERLY mg/dL [facility] Leukocyte esterase Test strip Ql (U) SMALL Abnormal NEGATIVE [facility] Nitrite Ql (U) Negative NEGATIVE [facility] pH (U) 6.5 [pH] 5.0 - 8.0 [facility] Protein (U) [Mass/Vol] 1+ Abnormal NEGAT KIMBERLY mg/dL [facility] Specific gravity (U) [Rel density] 1.021 1.000 - 1.030 [facility] Urobilinogen Qn (U) ELEVATED 0.0 - 1. 0 EU/dL [facility] Urinalysis,Microon 5 Bacteria FEW Abnormal [facility] [facility] Comment on above: Performed By: #### RIZWAN CAR UAX #### [facility] [address] [facility] [place] [address] Seed Technician: Jas Ortez DO Casts 0 TO 2 Abnormal NONE [facility] Comment on above: Performed By: #### RIZWAN CAR UAX #### [facility] [address] [facility] [place] [address] Seed Technician: Jas Ortez DO Epithelial cells LM Ql (Urine sed) 3 to 5 Normal [facility] Comment on above: Performed By: #### RIZWAN CAR, UAX #### [facility] [address] [facility] [place] [address] Seed Technician: Jas Ortez DO Urine RBC's 51 TO [address] Comment on above: Performed By: #### RIZWAN CAR UAX #### [facility] [address] [place] [address]. [place] [address] Seed Technician: Jas Ortez DO Urine WBC's 10 TO [address] Comment on above: Performed By: #### RIZWAN CAR UAX #### [facility] [address] [place] [address]. [place] [address] Seed Technician: Jas Ortez DO Urine Drug Screenon 10-06-19 25 Amphetamines Ql (U) Negative NEGATIVE [facility] Comment on above: Cutoff: 1000 ng/mL Barbiturates Screen Ql (U) Positive Abnormal NEGATIVE [facility] Comment on above: Cutoff: 200 ng/ml Benzodiazepines Ql (U) Positive Abnormal NEGATIVE [facility] Comment on above: Cutoff: 200 ng/ml Cannabinoids Screen Ql (U) Positive Abnormal NEGATIVE [facility] Comment on above: Cutoff: 50 ng/ml Cocaine Ql (U) Negative NEGATIVE [facility] Comment on above: Cutoff: 300 ng/ml fentaNYL Ql (U) Negative NEGATIVE [facility] Comment on above: Cutoff: 5 ng/ml Interpretation and review of laboratory results Abnormal [facility] Methadone Ql (U) Negative NEGATIVE [facility] Comment on above: Cutoff: 300 ng/ml Opiates Screen Ql (U) Negative NEGATIVE [facility] Comment on above: Cutoff: 300 ng/ml oxyCODONE Ql (U) Negative NEGATIVE [facility] Comment on above: Cutoff: 100 ng/ml Phencyclidine Ql (U) Negative NEGATIVE [facility] Comment on above: Cutoff: 25 ng/ml Test Information This method is a screening test to detect only these drug classes as part of a medical workup. Confirmatory testing by another method should be ordered if clinically indicated. [facility] Vaginitis DNA Probeon 2024 Tani species Negative NEGATIVE [facility] Comment on above: for Tani sp. Method of testing is a DNA probe intended for detection and identification of Tani species, Gardnerella vaginalis, and Trichomonas vaginalis nucleic acid in vaginal fluid specimens from patients with symptoms of vaginitis/vaginosis. GARDNERELLA VAGINALIS Positive Abnormal NEGATIVE [facility] Comment on above: for Gardnerella vagi nalis Interpretation and review of laboratory results Abnormal [facility] Source .VAGINAL SWAB [facility] Trichomonas Negative NEGATIVE [facility] Comment on above: for Trichomonas Vagi nalis [facility] Tani Negative Normal NEG [facility] Comment on above: Result Comment: for Tani sp. Method of testing is a DNA probe intended for detection and identification of Tani species, Gardnerella vaginalis, and Trichomonas vaginalis nucleic acid in vaginal fluid specimens from patients with symptoms of vaginitis/vaginosis. Performed By: #### D RIZWAN HAYWARD, UAX #### [facility] [address] [facility] [place] [place] [address] Seed Technician: Jas Ortez DO Gardnerella Positive Abnormal NEG [facility] Comment on above: Result Comment: for Gardnerella vaginalis Performed By: #### D RIZWAN HAYWARD, UAX #### [facility] [address] [facility] [place] [place] [address] Seed Technician: Jas Ortez DO Trichomonas Negative Normal NEG [facility] Comment on above: Result Comment: for Trichomonas Vaginalis Performed By: #### D RIZWAN HAYWARD, UAX #### [facility] [address] [facility] [place] [address] Seed Technician: Jas Ortez DO Source .VAGINAL SWAB Normal [facility] Comment on above: Performed By: #### D AURIZWAN, UAX #### [facility] [address] [place] [address] Seed Technician: Jas Ortez DO ALCOHOL, MEDICALon ALCOHOL MEDICAL 171.0 mg/dL High <10.0 [facility] Comment on above: Performed By: #### 4 5033 #### [facility] [address], [place] [address] Sarath Lloyd M.D. [id number] ED Prov Noteon 10-04-2024 ED Prov Note PCP - Maciej Booth MD Language assistance: N/A - chefornak Romanian speaker Chief Complaint Patient presents with Resources [...] Lying) Pulse 92 Resp 16 Ht 5' 1 Wt 111.1 kg (245 lb) LMP 09/09/2024 (Approximate) SpO2 96% BMI 46.29 kg/m Vital Signs During ED Visit (as charted by nursing) Patient Vitals for the past 24 hrs: BP Pulse Resp SpO2 Height Weight 10/04/24 0317 (!) 140/100 92 16 96 % 5' 1 111.1 kg (245 lb) Physical Exam Vitals [...] Alcohol use: Yes Drug use: Not Currently Jay Jay Marie II, MD 10/04/24 0543 AUTHENTICATED BY JAY JAY MARIE II, ON 10/04/2024 05:43:12 Normal [facility] GGTon 10-04-2024 Gamma glutamyl transferase [Catalytic activity/Vol] 41 U/L High 7-33 [facility] Comment on above: Performed By: #### 4 [id number] #### [facility] [address], [place] [address] Sarath Lloyd M.D. [id number] HCG, SERUM, QUALITATIVEon BETA-HCG QUAL BLOOD Negative Normal Negative [facility] Comment on above: Order Comment: Negat kimberly: The result is less than or equal to 5 mIU/mL of HCG. Performed By: #### 4 5826 #### [facility] [address], [place] [address] Sarath Lloyd M.D. [id number] CBC W Differential panel, in thod unspecified (Bld)on 10-03-2024 Basophils (Bld) [#/Vol] 0.02 10*3/uL [facility] Basophils/100 WBC (Bld) 0.2 % 0.0 - 2.0 % [facility] Eosinophils (Bld) [#/Vol] 0.19 10*3/uL [facility] Eosinophils/100 WBC (Bld) 2.2 % 0. 0 - 7.0 % [facility] Erythrocyte distribution width (RBC) [Ratio] 13.2 % 11.0 - 14.8 % [facility] Hematocrit (Bld) [Volume fraction] 39.1 % 34.3 - 47.9 % [facility] Hemoglobin (Bld) [Mass/Vol] 12.9 g/dL 12.0 - 16.0 g/dL [facility] Immature granulocytes (Bld) [#/Vol] 0.02 10*3/uL [facility] Immature granulocytes/100 WBC (Bld) 0.2 % 0.0 - 1.2 % [facility] Interpretation and review of laboratory results Normal [facility] Lymphocytes (Bld) [#/Vol] 2.17 10*3/uL [facility] Lymphocytes/100 WBC (Bld) 25.6 % 17 .9 - 49.6 % [facility] MCH (RBC) [Entitic mass] 31 pg [facility] MCHC (RBC) [Mass/Vol] 33 g/dL 30.8 - 35.3 g/dL [facility] MCV (RBC) [Entitic vol] 94 fL [facility] Monocytes (Bld) [#/Vol] 0.55 10*3/uL [facility] Monocytes/100 WBC (Bld) 6.5 % 0.0 - 12.0 % [facility] Neutrophils (Bld) [#/Vol] 5.54 10*3/uL [facility] Neutrophils/100 WBC (Bld) 65.3 % 38 .1 - 75.5 % [facility] Platelet mean volume (Bld) [Entitic vol] 10.4 fL [facility] Platelets (Bld) [#/Vol] 281 10*3/uL [facility] RBC (Bld) [#/Vol] 4.16 10*6/uL [facility] WBC (Bld) [#/Vol] 8.5 10*3/uL [facility] Basophils (Bld) [#/Vol] 0.02 10*3/uL Normal 0.00-0.20 [facility] Comment on above: Performed By: #### 6 9742-5 #### [facility] [address] [place] [address] Basophils/100 WBC (Bld) 0.2 % Normal 0.0-2.0 M [facility] Comment on above: Performed By: #### 6 9742-5 #### [facility] [place] [address] Eosinophils (Bld) [#/Vol] 0.19 10*3/uL Normal 0.00-0.7 0 [facility] Comment on above: Performed By: #### 6 9742-5 #### [facility] [address] [place] [address] Eosinophils/100 WBC (Bld) 2.2 % Normal 0.0-7.0 [facility] Comment on above: Performed By: #### 6 9742-5 #### [facility] [address] [place] [address] Erythrocyte distribution width (RBC) [Ratio] 13.2 % Normal 11.0-14.8 [facility] Comment on above: Performed By: #### 6 9742-5 #### [facility] [address] [place] [address] Hematocrit (Bld) [Volume fraction] 39.1 % Normal 34.3-47.9 [facility] Comment on above: Performed By: #### 6 9742-5 #### [facility] [address] [place] [address] Hemoglobin (Bld) [Mass/Vol] 12.9 g/dL Normal 12.0-16.0 [facility] Comment on above: Performed By: #### 6 9742-5 #### [facility] [address] [place] [address] Immature granulocytes (Bld) [#/Vol] 0.02 10*3/uL Normal 0.00-0.10 [facility] Comment on above: Performed By: #### 6 9742-5 #### [facility] [address] [place] [address] Immature granulocytes/100 WBC (Bld) 0.2 % Normal 0.0-1.2 [facility] Comment on above: Performed By: #### 6 9742-5 #### [facility] [address] [place] [address] Lymphocytes (Bld) [#/Vol] 2.17 10*3/uL Normal 1.00-4.8 0 [facility] Comment on above: Performed By: #### 6 9742-5 #### [facility] [address] [place] [address] Lymphocytes/100 WBC (Bld) 25.6 % Normal 17.9-49.6 [facility] Comment on above: Performed By: #### 6 9742-5 #### [facility] [address] [place] [address] MCH 31.0 pcg Normal 27.0-34.0 [facility] Comment on above: Performed By: #### 6 9742-5 #### [facility] [address] [place] [address] MCHC (RBC) [Mass/Vol] 33.0 g/dL Normal 30.8-35.3 [facility] Comment on above: Performed By: #### 6 9742-5 #### [facility] [address] [place] [address] MCV (RBC) [Entitic vol] 94.0 fL Normal 80.0-97.0 M [facility] Comment on above: Performed By: #### 6 9742-5 #### [facility] [address] [place] [address] Monocytes (Bld) [#/Vol] 0.55 10*3/uL Normal 0.00-0.90 [facility] Comment on above: Performed By: #### 6 9742-5 #### [facility] [address] [place] [address] Monocytes/100 WBC (Bld) 6.5 % Normal 0.0-12.0 M [facility] Comment on above: Performed By: #### 6 9742-5 #### [facility] [address] [place] [address] Neutrophils Absolute 5.54 K/mcL Normal 1.80-7.70 [facility] Comment on above: Performed By: #### 6 9742-5 #### [facility] [address] [place] [address] Neutrophils/100 WBC (Bld) 65.3 % Normal 38.1-75.5 [facility] Comment on above: Performed By: #### 6 9742-5 #### [facility] [address] [place] [address] Platelet mean volume (Bld) [Entitic vol] 10.4 fL Normal 6.2-12.1 [facility] Comment on above: Performed By: #### 6 9742-5 #### [facility] [address] [place] [address] Platelets (Bld) [#/Vol] 281 10*3/uL Normal 142-424 [facility] Comment on above: Performed By: #### 6 9742-5 #### [facility] [address] [place] [address] RBC (Bld) [#/Vol] 4.16 10*6/uL Normal 3.74-5.34 [facility] Comment on above: Performed By: #### 6 9742-5 #### [facility] [address] [place] [address] WBC (Bld) [#/Vol] 8.5 10*3/uL Normal 4.6-10.2 [facility] Comment on above: Performed By: #### 6 9742-5 #### [facility] [address] [place] [address] Comprehensive metabolic 2000 panelon 10-03-2024 Albumin [Mass/Vol] 4.3 g/dL 3.5 - 4.8 g/dL [facility] ALP [Catalytic activity/Vol] 90 U/L [facility] ALT [Catalytic activity/Vol] 13 U/L [facility] Anion gap [Moles/Vol] 7 mmol/L 6 - 18 [facility] AST [Catalytic activity/Vol] 23 U/L [facility] Bilirubin [Mass/Vol] 0.5 mg/dL 0.3 - 1 .2 mg/dL [facility] Calcium [Mass/Vol] 9.2 mg/dL 8.9 - 10. 3 mg/dL [facility] Chloride [Moles/Vol] 105 mmol/L 98 - 10 7 mmol/L [facility] CO2 [Moles/Vol] 28 mmol/L 22 - 32 mmol/L [facility] Creatinine [Mass/Vol] 0.69 mg/dL 0.60 - 1.30 mg/dL [facility] GFR/1.73 sq M.predicted among non-blacks MDRD (S/P/Bld) [Vol rate/Area] 124 mL/min/{1.73_m2} - PINF T [facility] Comment on above: Calculation based on the Chronic Kidney Disease Epidemiology Collaboration (CKD-EPI) equation refit without adjustment for race. Glucose [Mass/Vol] 90 mg/dL 70 - 99 mg/dL [facility] Interpretation and review of laboratory results Abnormal [facility] Potassium [Moles/Vol] 4.3 mmol/L 3.6 - 5.1 mmol/L [facility] Protein [Mass/Vol] 8 g/dL High 6.1 - 7.9 g/dL [facility] Sodium [Moles/Vol] 140 mmol/L 136 - 145 mmol/L [facility] Urea nitrogen [Mass/Vol] 14 mg/dL 8 - 20 mg/dL [facility] Urea nitrogen/Creatinine [Mass ratio] 20.3 mg/mg High 12.0 - 20.0 [facility] Ethanol (Bld) [Moles/Vol]on 10-03-2024 Ethanol [Mass/Vol] mg/dL NINF - 10 mg/dL [facility] HCG.beta subunit Qnon 2024 HCG Qn mIU/mL [facility] Reference Ranges Negative = < 5 mIU/ml Positive [...] not interchangeable. Patient results should not be trended using values obtained with a different immunoassay method. [facility] [place] Lipaseon 10-03-2024 Lipase [Catalytic activity/Vol] 14 U/L [facility] Magnesiumon 10-03-2024 Magnesium [Mass/Vol] 1.9 mg/dL 1.8 - 2 .5 mg/dL [facility] Magnesium [Mass/Vol]on 10-03 hCG Quant <1 Normal [facility] Comment on above: Order Comment: Pregn carlos Reference Ranges Negative = < 5 mIU/ml Positive [...] not interchangeable. Patient results should not be trended using values obtained with a different immunoassay method. Performed By: #### 1 9123-9 #### [facility] [address] [place] [id number] No Panel Informationon 10-03 Interpretation and review of laboratory results Normal [facility] ALCOHOL, MEDICALon ALCOHOL MEDICAL < Normal <10.0 [facility] Comment on above: Result Comment: Alco hol cutoff: <10.00 mg/dL = None Detected Performed By: #### 4 5033 #### [facility] [address] [place] [address] Easton Petty M.D. [id number] BASIC METABOLIC PANELon 09-13 Anion gap [Moles/Vol] 18 mmol/L Normal 10-20 [facility] Comment on above: Order Comment: [facility] has implemented the eGFR calculation approach that does not have a coefficient for race that conforms to the NKF-ASN Task Force Recommendations. Performed By: #### 4 6124 #### [facility] [address] [place] [address] Easton Petty M.D. [id number] Calcium [Mass/Vol] 9.0 mg/dL Normal 8.4-10.2 [facility] Comment on above: Order Comment: [facility] has implemented the eGFR calculation approach that does not have a coefficient for race that conforms to the NKF-ASN Task Force Recommendations. Performed By: #### 4 6124 #### [facility] [address] [place] [address] Easton Petty M.D. [id number] Chloride [Moles/Vol] 101 mmol/L Normal 98-108 [facility] Comment on above: Order Comment: [facility] has implemented the eGFR calculation approach that does not have a coefficient for race that conforms to the NKF-ASN Task Force Recommendations. Performed By: #### 4 6124 #### [facility] [address] [place] [address] Easton Petty M.D. [id number] Creatinine [Mass/Vol] 0.52 mg/dL Normal 0.40-1.10 [facility] Comment on above: Order Comment: [facility] has implemented the eGFR calculation approach that does not have a coefficient for race that conforms to the NKF-ASN Task Force Recommendations. Performed By: #### 4 6124 #### [facility] [address] [place] [address] Easton Petty M.D. [id number] EGFR 133 mL/min/1.73 m2 Normal >=60 [facility] Comment on above: Order Comment: [facility] has implemented the eGFR calculation approach that does not have a coefficient for race that conforms to the NKF-ASN Task Force Recommendations. Result Comment: Mulu mated GFR was calculated using the 2020 CKD-EPI creatinine equation. Performed By: #### 4 6124 #### [facility] [address] [place] [address] Easton Petty M.D. [id number] Glucose [Mass/Vol] 91 mg/dL Normal 65-99 [facility] Comment on above: Order Comment: [facility] has implemented the eGFR calculation approach that does not have a coefficient for race that conforms to the NKF-ASN Task Force Recommendations. Performed By: #### 4 6124 #### [facility] [address] [place] [address] Easton Petty M.D. [id number] HCO3 (Bld) [Moles/Vol] 23 mmol/L Normal 21-32 [facility] Comment on above: Order Comment: [facility] has implemented the eGFR calculation approach that does not have a coefficient for race that conforms to the NKF-ASN Task Force Recommendations. Performed By: #### 4 6124 #### [facility] [address] [place] [address] Easton Petty M.D. [id number] Potassium [Moles/Vol] 3.8 mmol/L Normal 3.5-5.1 [facility] Comment on above: Order Comment: [facility] has implemented the eGFR calculation approach that does not have a coefficient for race that conforms to the NKF-ASN Task Force Recommendations. Performed By: #### 4 6124 #### [facility] [address] [place] [address] Easton Petty M.D. [id number] Sodium [Moles/Vol] 138 mmol/L Normal 135-145 [facility] Comment on above: Order Comment: [facility] has implemented the eGFR calculation approach that does not have a coefficient for race that conforms to the NKF-ASN Task Force Recommendations. Performed By: #### 4 6124 #### [facility] [address] [place], [place] [address] Easton Petty M.D. [id number] Urea nitrogen [Mass/Vol] 11 mg/dL Normal 8-25 [facility] Comment on above: Order Comment: [facility] has implemented the eGFR calculation approach that does not have a coefficient for race that conforms to the NKF-ASN Task Force Recommendations. Performed By: #### 4 6124 #### [facility] [address] [place], [place] [address] Easton Petty M.D. [id number] Urea nitrogen/Creatinine [Mass ratio] 21.2 mg/mg High 10.0-20.0 [facility] Comment on above: Order Comment: [facility] has implemented the eGFR calculation approach that does not have a coefficient for race that conforms to the NKF-ASN Task Force Recommendations. Performed By: #### 4 6124 #### [facility] [address] [place], [place] [address] Easton Petty M.D. [id number] CBC WITH AUTO DIFFERENTIALon 10-01-2024 AUTO NRBC 0.0 % Normal [facility] Comment on above: Performed By: #### L [id number] #### [facility] [address] [place] [address] Easton Petty M.D. [id number] AUTO NRBC ABS COUNT 0.00 K/mcL Normal 0.00-0.00 [facility] Comment on above: Performed By: #### L [id number] #### [facility] [address] [place], [place] [address] Easton Petty M.D. [id number] BASOPHILS ABSOLUTE COUNT 0.02 K/mcL Normal 0.00-0.30 [facility] Comment on above: Performed By: #### Tres [id number] #### [facility] [address] [place] [address] Easton Petty M.D. [id number] Basophils/100 WBC (Bld) 0.3 % Normal [facility] Comment on above: Performed By: #### Tres [id number] #### [facility] [address] [place] [address] Easton Petty M.D. [id number] Eosinophils (Bld) [#/Vol] 0.08 10*3/uL Normal 0.00-0.5 0 [facility] Comment on above: Performed By: #### Tres [id number] #### [facility] [address] [place] [address] Easton Petty M.D. [id number] Eosinophils/100 WBC (Bld) 1.1 % Normal [facility] Comment on above: Performed By: #### Tres [id number] #### [facility] [address] [place], [place] [address]Alessandro Petty M.D. [id number] Erythrocyte distribution width (RBC) [Ratio] 12.8 % Normal 11.6-14.8 [facility] Comment on above: Performed By: #### Tres [id number] #### [facility] [address] [place], [place] [address] Easton Petty M.D. [id number] Hematocrit (Bld) [Volume fraction] 35.7 % Low 36.0-46.0 [facility] Comment on above: Performed By: #### Tres [id number] #### [facility] [address] [place], [place] [address]Alessandro Petty M.D. [id number] Hemoglobin (Bld) [Mass/Vol] 11.8 g/dL Low 12.0-16.0 [facility] Comment on above: Performed By: #### L [id number] #### [facility] [address] [place], [place] [address] Easton Petty M.D. [id number] IG ABSOLUTE 0.01 K/mcL Normal 0.00-0.30 [facility] Comment on above: Performed By: #### L [id number] #### [facility] [address] [place] [address] Easton Petty M.D. [id number] IG PERCENT 0.10 % Normal [facility] Comment on above: Result Comment: The IG parameter is the percentage of metamyelocytes, myelocytes and promyelocytes. An immature granulocyte count (IG) of 1% or more suggests the possibility of infection, an IG count of 3% is very likely related to an infection. Performed By: #### L [id number] #### [facility] [address] [place] [address] Easton Petty M.D. [id number] Lymphocytes (Bld) [#/Vol] 2.73 10*3/uL Normal 0.90-4.0 0 [facility] Comment on above: Performed By: #### L [id number] #### [facility] [address] [place], [place] [address] Easton Petty M.D. [id number] Lymphocytes/100 WBC (Bld) 36.5 % Normal [facility] Comment on above: Performed By: #### L [id number] #### [facility] [address] [place], [place] [address] Easton Petty M.D. [id number] MCH (RBC) [Entitic mass] 30.6 pg Normal 26.0-34.0 [facility] Comment on above: Performed By: #### L [id number] #### [facility] [address] [place] [address] Easton Petty M.D. [id number] MCV (RBC) [Entitic vol] 92.5 fL Normal 80.0-100.0 [facility] Comment on above: Performed By: #### L [id number] #### [facility] [address] [place] [address] Easton Petty M.D. [id number] MEAN CORPUSCULAR HEMOGLOBIN CONC 33.1 g/dL Normal 31.0-37.0 [facility] Comment on above: Performed By: #### Tres [id number] #### [facility] [address] [place] [address] Easton Petty M.D. [id number] Monocytes (Bld) [#/Vol] 0.76 10*3/uL Normal 0.30-0.90 [facility] Comment on above: Performed By: #### L [id number] #### [facility] [address] [place], [place] [address] Easton Petty M.D. [id number] Monocytes/100 WBC (Bld) 10.2 % Normal [facility] Comment on above: Performed By: #### L [id number] #### [facility] [address] [place], [place] [address] Easton Petty M.D. [id number] NEUTROPHILS ABSOLUTE COUNT 3.87 K/mcL Normal 1.70-7.00 [facility] Comment on above: Performed By: #### L [id number] #### [facility] [address] [place], [place] [address] Easton Petty M.D. [id number] Neutrophils/100 WBC (Bld) 51.8 % Normal [facility] Comment on above: Performed By: #### L [id number] #### [facility] [address] [place], [place] [address] Easton Petty M.D. [id number] Platelet mean volume (Bld) [Entitic vol] 10.0 fL Normal 9.4-12.4 [facility] Comment on above: Performed By: #### L [id number] #### [facility] [address] [place], [place] [address] Easton Petty M.D. [id number] Platelets (Bld) [#/Vol] 285 10*3/uL Normal 150-400 [facility] Comment on above: Performed By: #### L [id number] #### [facility] [address] [place], [place] [address]Alessandro Petty M.D. [id number] RBC (Bld) [#/Vol] 3.86 10*6/uL Low 4.00-5.20 [facility] Comment on above: Performed By: #### L [id number] #### [facility] [address] [place], [place] [address] Easton Petty M.D. [id number] WBC (Bld) [#/Vol] 7.47 10*3/uL Normal 4.50-11.00 [facility] Comment on above: Performed By: #### L [id number] #### [facility] [address] [place], [place] [address] Easton Petty M.D. [id number] DRUGS OF ABUSE SCREEN, URINE on 10-01-2024 AMPHETAMINE SCREEN, URINE Positive Abnormal No ne Detected [facility] Comment on above: Order Comment: Scree n results should be used for treatment purposes only. Specimen will be kept for 2 weeks, if the sample is adequate. Confirmation testing can be initiated by calling the lab within 2 weeks. Result Comment: Urin e Amphetamine Cutoff: < 1000 ng/mL = None Detected Performed By: #### 4 [id number] #### [facility] [address] [place], [place] [address] Easton Petty M.D. [id number] BARBITURATE SCREEN URINE Positive Abnormal Non e Detected [facility] Comment on above: Order Comment: Scree n results should be used for treatment purposes only. Specimen will be kept for 2 weeks, if the sample is adequate. Confirmation testing can be initiated by calling the lab within 2 weeks. Result Comment: Urin e Barbiturates Cutoff: < 200 ng/mL = None Detected Performed By: #### 4 [id number] #### [facility] [address] [place] [address] Easton Petty M.D. [id number] BENZODIAZEPINE SCREEN, URINE Positive Abnormal None Detected [facility] Comment on above: Order Comment: Scree n results should be used for treatment purposes only. Specimen will be kept for 2 weeks, if the sample is adequate. Confirmation testing can be initiated by calling the lab within 2 weeks. Result Comment: Urin e Benzodiazepine Cutoff: < 200 ng/mL = None Detected Performed By: #### 4 [id number] #### [facility] [address] [place] [address] Easton Petty M.D. [id number] BUPRENORPHINE, URINE Not detected Normal None Detected [facility] Comment on above: Order Comment: Scree n results should be used for treatment purposes only. Specimen will be kept for 2 weeks, if the sample is adequate. Confirmation testing can be initiated by calling the lab within 2 weeks. Result Comment: Urin e Buprenorphine Cutoff: < 5 ng/mL = None Detected Performed By: #### 4 [id number] #### [facility] [address] [place] [address] Easton Petty M.D. [id number] CANNABINOID SCREEN URINE Not detected Normal Non e Detected [facility] Comment on above: Order Comment: Scree n results should be used for treatment purposes only. Specimen will be kept for 2 weeks, if the sample is adequate. Confirmation testing can be initiated by calling the lab within 2 weeks. Result Comment: Urin e Cannabinoids Cutoff: < 50 ng/mL = None Detected Performed By: #### 4 [id number] #### [facility] [address] [place] [address] Easton Petty M.D. [id number] COCAINE, SCREEN URINE Positive Abnormal None Detected [facility] Comment on above: Order Comment: Scree n results should be used for treatment purposes only. Specimen will be kept for 2 weeks, if the sample is adequate. Confirmation testing can be initiated by calling the lab within 2 weeks. Result Comment: Urin e Cocaine Cutoff: < 300 ng/mL = None Detected Performed By: #### 4 [id number] #### [facility] [address] [place] [address] Easton Petty M.D. [id number] FENTANYL, URINE Not detected Normal None Detected [facility] Comment on above: Order Comment: Scree n results should be used for treatment purposes only. Specimen will be kept for 2 weeks, if the sample is adequate. Confirmation testing can be initiated by calling the lab within 2 weeks. Result Comment: Urin e Fentanyl Cutoff: < 1 ng/mL = None Detected Performed By: #### 4 [id number] #### [facility] [address] [place] [address] Easton Petty M.D. [id number] METHADONE SCREEN, URINE Not detected Normal None Detected [facility] Comment on above: Order Comment: Scree n results should be used for treatment purposes only. Specimen will be kept for 2 weeks, if the sample is adequate. Confirmation testing can be initiated by calling the lab within 2 weeks. Result Comment: Urin e Methadone Cutoff: < 300 ng/mL = None Detected Performed By: #### 4 [id number] #### [facility] [address] [place] [address] Easton Petty M.D. [id number] OPIATE SCREEN URINE Not detected Normal None Detected [facility] Comment on above: Order Comment: Scree n results should be used for treatment purposes only. Specimen will be kept for 2 weeks, if the sample is adequate. Confirmation testing can be initiated by calling the lab within 2 weeks. Result Comment: Urin e Opiates Cutoff: < 300 ng/mL = None Detected Performed By: #### 4 [id number] #### [facility] [address] [place], [place] [address] Easton Petty M.D. [id number] OXYCODONE SCREEN, URINE Not detected Normal None Detected [facility] Comment on above: Order Comment: Scree n results should be used for treatment purposes only. Specimen will be kept for 2 weeks, if the sample is adequate. Confirmation testing can be initiated by calling the lab within 2 weeks. Result Comment: Urin e Oxycodone Cutoff: < 100 ng/mL = None Detected Performed By: #### 4 [id number] #### [facility] [address] [place], [place] [address] Easton Petty M.D. [id number] ED Prov Noteon 10-01-2024 ED Prov Note PCP - Maciej Booth MD Chief Complaint Patient presents with [...] C) (Oral) Resp (!) 22 Ht 5' 6 Wt 127 kg (280 lb) LMP 09/09/2024 [...] things. I did speak to the social worker assistant who is here in the emergency department and she is setting up transportation as well as for the patient to be evaluated at [facility] The patient will be sent from here to [facility]. [facility] Data: Shared decision making utilized and Social [...] use Patient seen in conjunction with Dr. Vickers. I discussed this patient, history, physical exam, laboratory findings and imaging with my attending physician, who is in agreement with the above assessment and plan. Previous Records Reviewed . Labs Reviewed BASIC METABOLIC PANEL - Abnormal; Notable for the following components: Result Value BUN/Creatinine Ratio 21.2 (*) All other components within normal limits Narrative: [facility] has implemented the eGFR [...] Abnormal; Notable for the following components: Specific [place] 1.028 (*) Ketones, Urine Trace (*) Bacteria, Urine Rare (*) All other components within normal limits Narrative: Microscopic examination is performed on all urinalysis samples and only positive findings are reported. The test for blood on the [employer] porti (more content not included)... Normal [facility] HCG, SERUM, QUALITATIVEon BETA-HCG QUAL BLOOD Negative Normal Negative [facility] Comment on above: Order Comment: Negat kimberly: The result is less than or equal to 5 mIU/mL of HCG. Performed By: #### 4 5826 #### [facility] [address] [place] [address] Easton Petty M.D. [id number] HEPATIC FUNCTION PANELon Albumin [Mass/Vol] 4.2 g/dL Normal 3.2-5.2 [facility] Comment on above: Performed By: #### 4 [id number] #### [facility] [address] [place] [address] Easton Petty M.D. [id number] ALP [Catalytic activity/Vol] 101 U/L Normal 40-140 [facility] Comment on above: Performed By: #### 4 5831 #### [facility] [address] [place], [place] [address] Easton Petty M.D. [id number] ALT [Catalytic activity/Vol] 13 U/L Normal 0-35 U/L [facility] Comment on above: Performed By: #### 4 5866 #### [facility] [address] [place], [place] [address] Easton Petty M.D. [id number] AST [Catalytic activity/Vol] 26 U/L Normal 0-35 U/L [facility] Comment on above: Performed By: #### 4 [id number] #### [facility] [address] [place] [address] Easton Petty M.D. [id number] Bilirubin [Mass/Vol] 0.4 mg/dL Normal 0.0-1.3 [facility] Comment on above: Performed By: #### 4 5866 #### [facility] [address] [place] [address] Easton Petty M.D. [id number] Bilirubin.indirect [Mass/Vol] 0.2 mg/dL Normal 0.0-0.4 [facility] Comment on above: Performed By: #### 4 [id number] #### [facility] [address] [place], [place] [address] Easton Petty M.D. [id number] Protein [Mass/Vol] 8.1 g/dL High 6.0-8.0 [facility] Comment on above: Performed By: #### 4 [id number] #### [facility] [address] [place], [place] [address] Easton Petty M.D. [id number] URINALYSISon 10-01-2024 BACTERIA, URINE Rare Abnormal None Seen [facility] Comment on above: Order Comment: Micro scopic examination is performed on all urinalysis samples and only positive findings are reported. The test for blood on the chemical analytic portion of urinalysis may also be positive due to hemoglobinuria and myoglobinuria and if red blood cells are present they are quantified by microscopic examination. Performed By: #### 4 [id number] #### [facility] [address] [place], [place] [address] Easton Petty M.D. [id number] BILIRUBIN, URINE Negative Normal Negative [facility] Comment on above: Order Comment: Micro scopic examination is performed on all urinalysis samples and only positive findings are reported. The test for blood on the chemical analytic portion of urinalysis may also be positive due to hemoglobinuria and myoglobinuria and if red blood cells are present they are quantified by microscopic examination. Performed By: #### 4 [id number] #### [facility] [address] [place] [address] Easton Petty M.D. [id number] BLOOD, URINE Negative Normal Negative [facility] Comment on above: Order Comment: Micro scopic examination is performed on all urinalysis samples and only positive findings are reported. The test for blood on the chemical analytic portion of urinalysis may also be positive due to hemoglobinuria and myoglobinuria and if red blood cells are present they are quantified by microscopic examination. Performed By: #### 4 [id number] #### [facility] [address] [place] [address] Easton Petty M.D. [id number] Clarity (U) Clear Normal Clear [facility] Comment on above: Order Comment: Micro scopic examination is performed on all urinalysis samples and only positive findings are reported. The test for blood on the chemical analytic portion of urinalysis may also be positive due to hemoglobinuria and myoglobinuria and if red blood cells are present they are quantified by microscopic examination. Performed By: #### 4 [id number] #### [facility] [address] [place] [address] Easton Petty M.D. [id number] Color (U) Yellow Normal Colorless, Yellow [facility] Comment on above: Order Comment: Micro scopic examination is performed on all urinalysis samples and only positive findings are reported. The test for blood on the chemical analytic portion of urinalysis may also be positive due to hemoglobinuria and myoglobinuria and if red blood cells are present they are quantified by microscopic examination. Performed By: #### 4 [id number] #### [facility] [address] [place], [place] [address] Easton Petty M.D. [id number] Glucose Ql (U) Negative Normal Negative [facility] Comment on above: Order Comment: Micro scopic examination is performed on all urinalysis samples and only positive findings are reported. The test for blood on the chemical analytic portion of urinalysis may also be positive due to hemoglobinuria and myoglobinuria and if red blood cells are present they are quantified by microscopic examination. Performed By: #### 4 [id number] #### [facility] [address] [place] [address] Easton Petty M.D. [id number] Ketones Ql (U) Trace Abnormal Negative [facility] Comment on above: Order Comment: Micro scopic examination is performed on all urinalysis samples and only positive findings are reported. The test for blood on the chemical analytic portion of urinalysis may also be positive due to hemoglobinuria and myoglobinuria and if red blood cells are present they are quantified by microscopic examination. Performed By: #### 4 [id number] #### [facility] [address] [place], [place] [address] Easton Petty M.D. [id number] Leukocyte esterase Test strip Ql (U) Negative Normal Negative [facility] Comment on above: Order Comment: Micro scopic examination is performed on all urinalysis samples and only positive findings are reported. The test for blood on the chemical analytic portion of urinalysis may also be positive due to hemoglobinuria and myoglobinuria and if red blood cells are present they are quantified by microscopic examination. Performed By: #### 4 [id number] #### [facility] [address] [place] [address] Easton Petty M.D. [id number] MUCUS, URINE Rare Normal None Seen, Rare [facility] Comment on above: Order Comment: Micro scopic examination is performed on all urinalysis samples and only positive findings are reported. The test for blood on the chemical analytic portion of urinalysis may also be positive due to hemoglobinuria and myoglobinuria and if red blood cells are present they are quantified by microscopic examination. Performed By: #### 4 [id number] #### [facility] [address] [place] [address] Easton Petty M.D. [id number] NITRITE, URINE Negative Normal Negative [facility] Comment on above: Order Comment: Micro scopic examination is performed on all urinalysis samples and only positive findings are reported. The test for blood on the chemical analytic portion of urinalysis may also be positive due to hemoglobinuria and myoglobinuria and if red blood cells are present they are quantified by microscopic examination. Performed By: #### 4 6625 #### [facility] [address] [place] [address] Easton Petty M.D. [id number] pH (U) 6.5 [pH] Normal 5.0-7.0 [facility] Comment on above: Order Comment: Micro scopic examination is performed on all urinalysis samples and only positive findings are reported. The test for blood on the chemical analytic portion of urinalysis may also be positive due to hemoglobinuria and myoglobinuria and if red blood cells are present they are quantified by microscopic examination. Performed By: #### 4 [id number] #### [facility] [address] [place] [address] Easton Petty M.D. [id number] PROTEIN, URINE Negative Normal Negative [facility] Comment on above: Order Comment: Micro scopic examination is performed on all urinalysis samples and only positive findings are reported. The test for blood on the chemical analytic portion of urinalysis may also be positive due to hemoglobinuria and myoglobinuria and if red blood cells are present they are quantified by microscopic examination. Performed By: #### 4 [id number] #### [facility] [address] [place] [address] Easton Petty M.D. [id number] RBC LM.HPF (Urine sed) [#/Area] 1 /[HPF] Normal 0-3 [facility] Comment on above: Order Comment: Micro scopic examination is performed on all urinalysis samples and only positive findings are reported. The test for blood on the chemical analytic portion of urinalysis may also be positive due to hemoglobinuria and myoglobinuria and if red blood cells are present they are quantified by microscopic examination. Performed By: #### 4 [id number] #### [facility] [address] [place], [place] [address] Easton Petty M.D. [id number] Specific gravity (U) [Rel density] 1.028 High 1.005-1.02 5 [facility] Comment on above: Order Comment: Micro scopic examination is performed on all urinalysis samples and only positive findings are reported. The test for blood on the chemical analytic portion of urinalysis may also be positive due to hemoglobinuria and myoglobinuria and if red blood cells are present they are quantified by microscopic examination. Performed By: #### 4 6625 #### [facility] [address] [place], [place] [address] Easton Petty M.D. [id number] SQUAMOUS EPITHELIAL 4 /hpf Normal 0-4 [facility] Comment on above: Order Comment: Micro scopic examination is performed on all urinalysis samples and only positive findings are reported. The test for blood on the chemical analytic portion of urinalysis may also be positive due to hemoglobinuria and myoglobinuria and if red blood cells are present they are quantified by microscopic examination. Performed By: #### 4 6625 #### [facility] [address] [place], [place] [address] Easton Petty M.D. [id number] UROBILINOGEN, URINE <2.0 Normal <2.0 [facility] Comment on above: Order Comment: Micro scopic examination is performed on all urinalysis samples and only positive findings are reported. The test for blood on the chemical analytic portion of urinalysis may also be positive due to hemoglobinuria and myoglobinuria and if red blood cells are present they are quantified by microscopic examination. Performed By: #### 4 6625 #### [facility] [address] [place] [address] Easton Petty M.D. [id number] WBC LM.HPF (Urine sed) [#/Area] 1 /[HPF] Normal 0-5 [facility] Comment on above: Order Comment: Micro scopic examination is performed on all urinalysis samples and only positive findings are reported. The test for blood on the chemical analytic portion of urinalysis may also be positive due to hemoglobinuria and myoglobinuria and if red blood cells are present they are quantified by microscopic examination. Performed By: #### 4 6625 #### [facility] [address] [place] [address] Easton Petty M.D. [id number] XR CHEST PA/APon 10-01-2024 XR CHEST PA/AP EXAMINATION: XR CHEST PA/AP HISTORY: ORDERING SYSTEM [...] on MonOct 01, 2024 9:49:45 PM EDT Normal [facility] Comment on above: Order Comment: Injur y/Trauma or Illness?:Illness/Other How long have you had these symptoms (acute/chronic)?:Acute Reason for exam?:sob History of cancer?:. Surgeries, chemotherapy, or radiation?:. Type of Exam?:Initial Additional signs and symptoms?:. ED Prov Noteon 09-28-2024 ED Prov Note Senior Resident Attestation: I have discussed the case and ED management with the resident/CRISTY. In addition, I have personally introduced myself to the patient, and have taken her history and performed an examination. I agree with the physical findings, management, clinical impression and disposition. BP (!) 106/54 Pulse (!) 111 Temp 98.7 degrees F (37.1 degrees C) (Oral) Resp 18 Ht 5' 1 Wt 115.2 kg (254 lb) LMP 09/09/2024 [...] All other components within normal limits Narrative: [facility] has implemented the eGFR [...] Procedure Abnormality Status --------- ------ CBC Auto Differential[[id number] ] Abnormal Final result Please view results for these tests on the individual orders. XR Foot Left 3+ Views (Standard) Final Result No acute fracture or dislocation. Workstation ID: [id number] XR Ankle Left 3+ Views (Standard) Final Result No acute fracture or dislocation. Workstation ID: [id number] ED Course as of 09/28/24 0504 MonSep 27, [id number] Evaluated patient. She is resting comfortably. Angle [...] here. [AP] ED Course User Index [AP] Flaquito Blake DO In brief, patient is a 23-year-old [...] are mis-transcribed.) Cris Mehta DO Resident 09/28/24 0506 AUTHENTICATED BY STACY BARKLEY 09/28/2024 05:06:21 Normal [facility] ALCOHOL, MEDICALon ALCOHOL MEDICAL 245.3 mg/dL High <10.0 [facility] Comment on above: Performed By: #### 4 5033 #### [facility] [address] [place], [place] [address] Clarice Adam M.D. [id number] BASIC METABOLIC PANELon 09-13 Anion gap [Moles/Vol] 20 mmol/L Normal 10-20 [facility] Comment on above: Order Comment: Males and non females: <5 mIU/mL Females during : 3-4 weeks 9-130 mIU/mL 4-5 weeks 75-2600 mIU/mL 5-6 weeks 850-20,800 mIU/mL 6-7 weeks 4000-100,200 mIU/mL 7-12 weeks 11,500-289,000 mIU/mL 12-16 weeks 18,300-137,000 mIU/mL 16-29 weeks 1,400-53,000 mIU/mL 29-41 weeks 940-60,000 mIU/mL Performed By: #### 4 5844 #### [facility] [address] [place], [place] [address] Clarice Adam M.D. [id number] Calcium [Mass/Vol] 8.2 mg/dL Low 8.4-10.2 [facility] Comment on above: Order Comment: Males and non females: <5 mIU/mL Females during : 3-4 weeks 9-130 mIU/mL 4-5 weeks 75-2600 mIU/mL 5-6 weeks 850-20,800 mIU/mL 6-7 weeks 4000-100,200 mIU/mL 7-12 weeks 11,500-289,000 mIU/mL 12-16 weeks 18,300-137,000 mIU/mL 16-29 weeks 1,400-53,000 mIU/mL 29-41 weeks 940-60,000 mIU/mL Performed By: #### 4 5827 #### [facility] [place], [place] [address] Clarice Adam M.D. [id number] Chloride [Moles/Vol] 104 mmol/L Normal 98-108 [facility] Comment on above: Order Comment: Males and non females: <5 mIU/mL Females during : 3-4 weeks 9-130 mIU/mL 4-5 weeks 75-2600 mIU/mL 5-6 weeks 850-20,800 mIU/mL 6-7 weeks 4000-100,200 mIU/mL 7-12 weeks 11,500-289,000 mIU/mL 12-16 weeks 18,300-137,000 mIU/mL 16-29 weeks 1,400-53,000 mIU/mL 29-41 weeks 940-60,000 mIU/mL Performed By: #### 4 5827 #### [facility] [address] [place] [address] Clarice Adam M.D. [id number] Creatinine [Mass/Vol] 0.59 mg/dL Normal 0.40-1.10 [facility] Comment on above: Order Comment: Males and non females: <5 mIU/mL Females during : 3-4 weeks 9-130 mIU/mL 4-5 weeks 75-2600 mIU/mL 5-6 weeks 850-20,800 mIU/mL 6-7 weeks 4000-100,200 mIU/mL 7-12 weeks 11,500-289,000 mIU/mL 12-16 weeks 18,300-137,000 mIU/mL 16-29 weeks 1,400-53,000 mIU/mL 29-41 weeks 940-60,000 mIU/mL Performed By: #### 4 5827 #### [facility] [address] [place], [place] [address] Clarice Adam M.D. [id number] EGFR 129 mL/min/1.73 m2 Normal >=60 [facility] Comment on above: Order Comment: Males and non females: <5 mIU/mL Females during : 3-4 weeks 9-130 mIU/mL 4-5 weeks 75-2600 mIU/mL 5-6 weeks 850-20,800 mIU/mL 6-7 weeks 4000-100,200 mIU/mL 7-12 weeks 11,500-289,000 mIU/mL 12-16 weeks 18,300-137,000 mIU/mL 16-29 weeks 1,400-53,000 mIU/mL 29-41 weeks 940-60,000 mIU/mL Result Comment: Mulu mated GFR was calculated using the 2020 CKD-EPI creatinine equation. Performed By: #### 4 5827 #### [facility] [address] [place] [address] Clarice Adam M.D. [id number] Glucose [Mass/Vol] 80 mg/dL Normal 65-99 [facility] Comment on above: Order Comment: Males and non females: <5 mIU/mL Females during : 3-4 weeks 9-130 mIU/mL 4-5 weeks 75-2600 mIU/mL 5-6 weeks 850-20,800 mIU/mL 6-7 weeks 4000-100,200 mIU/mL 7-12 weeks 11,500-289,000 mIU/mL 12-16 weeks 18,300-137,000 mIU/mL 16-29 weeks 1,400-53,000 mIU/mL 29-41 weeks 940-60,000 mIU/mL Performed By: #### 4 5827 #### [facility] [address] [place], [place] [address] Clarice Adam M.D. [id number] HCO3 (Bld) [Moles/Vol] 20 mmol/L Low 21-32 [facility] Comment on above: Order Comment: Males and non females: <5 mIU/mL Females during : 3-4 weeks 9-130 mIU/mL 4-5 weeks 75-2600 mIU/mL 5-6 weeks 850-20,800 mIU/mL 6-7 weeks 4000-100,200 mIU/mL 7-12 weeks 11,500-289,000 mIU/mL 12-16 weeks 18,300-137,000 mIU/mL 16-29 weeks 1,400-53,000 mIU/mL 29-41 weeks 940-60,000 mIU/mL Performed By: #### 4 5827 #### LAB [facility] [place], [place] [address] Clarice Adam M.D. [id number] Potassium [Moles/Vol] 3.1 mmol/L Low 3.5-5.1 [facility] Comment on above: Order Comment: Males and non females: <5 mIU/mL Females during : 3-4 weeks 9-130 mIU/mL 4-5 weeks 75-2600 mIU/mL 5-6 weeks 850-20,800 mIU/mL 6-7 weeks 4000-100,200 mIU/mL 7-12 weeks 11,500-289,000 mIU/mL 12-16 weeks 18,300-137,000 mIU/mL 16-29 weeks 1,400-53,000 mIU/mL 29-41 weeks 940-60,000 mIU/mL Performed By: #### 4 5827 #### [facility] [address] [place] [address] Clarice Adam M.D. [id number] Sodium [Moles/Vol] 141 mmol/L Normal 135-145 [facility] Comment on above: Order Comment: Males and non females: <5 mIU/mL Females during : 3-4 weeks 9-130 mIU/mL 4-5 weeks 75-2600 mIU/mL 5-6 weeks 850-20,800 mIU/mL 6-7 weeks 4000-100,200 mIU/mL 7-12 weeks 11,500-289,000 mIU/mL 12-16 weeks 18,300-137,000 mIU/mL 16-29 weeks 1,400-53,000 mIU/mL 29-41 weeks 940-60,000 mIU/mL Performed By: #### 4 5827 #### [facility] [address] [place] [address] Clarice Adam M.D. [id number] Urea nitrogen [Mass/Vol] 11 mg/dL Normal 8-25 [facility] Comment on above: Order Comment: Males and non females: <5 mIU/mL Females during : 3-4 weeks 9-130 mIU/mL 4-5 weeks 75-2600 mIU/mL 5-6 weeks 850-20,800 mIU/mL 6-7 weeks 4000-100,200 mIU/mL 7-12 weeks 11,500-289,000 mIU/mL 12-16 weeks 18,300-137,000 mIU/mL 16-29 weeks 1,400-53,000 mIU/mL 29-41 weeks 940-60,000 mIU/mL Performed By: #### 4 5827 #### [facility] [address] [place] [address] Clarice Adam M.D. [id number] Urea nitrogen/Creatinine [Mass ratio] 18.6 mg/mg Normal 10.0-20.0 [facility] Comment on above: Order Comment: Males and non females: <5 mIU/mL Females during : 3-4 weeks 9-130 mIU/mL 4-5 weeks 75-2600 mIU/mL 5-6 weeks 850-20,800 mIU/mL 6-7 weeks 4000-100,200 mIU/mL 7-12 weeks 11,500-289,000 mIU/mL 12-16 weeks 18,300-137,000 mIU/mL 16-29 weeks 1,400-53,000 mIU/mL 29-41 weeks 940-60,000 mIU/mL Performed By: #### 4 5827 #### [facility] [address] [place], [place] [address] Clarice Adam M.D. [id number] CBC WITH AUTO DIFFERENTIALon 09-27-2024 AUTO NRBC 0.0 % Normal [facility] Comment on above: Performed By: #### L [id number] #### LAB [address] [place] [address] Clarice Adam M.D. [id number] AUTO NRBC ABS COUNT 0.00 K/mcL Normal 0.00-0.00 [facility] Comment on above: Performed By: #### L [id number] #### LAB [address] [place] [address] Clarice Adam M.D. [id number] BASOPHILS ABSOLUTE COUNT 0.04 K/mcL Normal 0.00-0.30 [facility] Comment on above: Performed By: #### L [id number] #### LAB [address] [place] [address] Clarice Adam M.D. [id number] Basophils/100 WBC (Bld) 0.4 % Normal [facility] Comment on above: Performed By: #### L [id number] #### LAB [address] [place] [address] Clarice Adam M.D. [id number] Eosinophils (Bld) [#/Vol] 0.12 10*3/uL Normal 0.00-0.5 0 [facility] Comment on above: Performed By: #### L [id number] #### LAB [address] [place] [address] Clarice Adam M.D. [id number] Eosinophils/100 WBC (Bld) 1.1 % Normal [facility] Comment on above: Performed By: #### L [id number] #### LAB [address] [place] [address] Clarice Adam M.D. [id number] Erythrocyte distribution width (RBC) [Ratio] 12.6 % Normal 11.6-14.8 [facility] Comment on above: Performed By: #### L [id number] #### LAB [address] [place] [address] Clarice Adam M.D. [id number] Hematocrit (Bld) [Volume fraction] 33.9 % Low 36.0-46.0 [facility] Comment on above: Performed By: #### L [id number] #### LAB [address] [place] [address] Clarice Adam M.D. [id number] Hemoglobin (Bld) [Mass/Vol] 11.0 g/dL Low 12.0-16.0 [facility] Comment on above: Performed By: #### L [id number] #### LAB [address] [place] [address] Clarice Adam M.D. [id number] IG ABSOLUTE 0.04 K/mcL Normal 0.00-0.30 [facility] Comment on above: Performed By: #### L [id number] #### LAB [address] [place] [address] Clarice Adam M.D. [id number] IG PERCENT 0.40 % Normal [facility] Comment on above: Result Comment: The IG parameter is the percentage of metamyelocytes, myelocytes and promyelocytes. An immature granulocyte count (IG) of 1% or more suggests the possibility of infection, an IG count of 3% is very likely related to an infection. Performed By: #### L [id number] #### LAB [address] [place] [address] Clarice Adam M.D. [id number] Lymphocytes (Bld) [#/Vol] 3.77 10*3/uL Normal 0.90-4.0 0 [facility] Comment on above: Performed By: #### L [id number] #### LAB [address] [place] [address] Clarice Adam M.D. [id number] Lymphocytes/100 WBC (Bld) 34.0 % Normal [facility] Comment on above: Performed By: #### L [id number] #### LAB [address] [place] [address] Clarice Adam M.D. [id number] MCH (RBC) [Entitic mass] 31.1 pg Normal 26.0-34.0 [facility] Comment on above: Performed By: #### L [id number] #### LAB [address] [place] [address] Clarice Adam M.D. [id number] MCV (RBC) [Entitic vol] 95.8 fL Normal 80.0-100.0 [facility] Comment on above: Performed By: #### L [id number] #### LAB [address] [place] [address] Clarice Adam M.D. [id number] MEAN CORPUSCULAR HEMOGLOBIN CONC 32.4 g/dL Normal 31.0-37.0 [facility] Comment on above: Performed By: #### L [id number] #### LAB [address] [place] [address] Clarice Adam M.D. [id number] Monocytes (Bld) [#/Vol] 0.74 10*3/uL Normal 0.30-0.90 [facility] Comment on above: Performed By: #### L [id number] #### LAB [address] [place] [address] Clarice Adam M.D. [id number] Monocytes/100 WBC (Bld) 6.7 % Normal [facility] Comment on above: Performed By: #### L [id number] #### LAB [address] [place] [address] Clarice Adam M.D. [id number] NEUTROPHILS ABSOLUTE COUNT 6.38 K/mcL Normal 1.70-7.00 [facility] Comment on above: Performed By: #### L [id number] #### LAB [address] [place] [address] Clarice Adam M.D. [id number] Neutrophils/100 WBC (Bld) 57.4 % Normal [facility] Comment on above: Performed By: #### L [id number] #### LAB [address] [place] [address] Clarice Adam M.D. [id number] Platelet mean volume (Bld) [Entitic vol] 10.3 fL Normal 9.4-12.4 [facility] Comment on above: Performed By: #### L [id number] #### LAB [address] [place] [address] Clarice Adam M.D. [id number] Platelets (Bld) [#/Vol] 276 10*3/uL Normal 150-400 [facility] Comment on above: Performed By: #### L [id number] #### LAB [address] [place] [address] Clarice Adam M.D. [id number] RBC (Bld) [#/Vol] 3.54 10*6/uL Low 4.00-5.20 [facility] Comment on above: Performed By: #### L [id number] #### [facility] [address] [place], [place] [address] Clarice Clemencia Adam [id number] WBC (Bld) [#/Vol] 11.09 10*3/uL High 4.50-11.00 [facility] Comment on above: Performed By: #### L [id number] #### [facility] [address] [place], [place] [address] Clarice Adam M.D. [id number] ED Prov Noteon 09-27-2024 ED [facility] EMERGENCY DEPARTMENT RESIDENT NOTE: NAME: Dhaval Moon CSN: [id number] 23 y.o. PCP: Mary Kay Bradley History/MDM: Chief Complaint: Alcohol Intoxication and [...] that this time it is different because she is sick of hurting people. I discussed the process of placing a [...] and they expressed interest in returning home. Shelter through the workup. Rc no longer was willing to take the patient home into his custody and asked that she be allowed to sober here in the department. Due to the patient's reported history of intense withdrawal symptoms such as seizures within a few hours of not drinking, 3 mg/kg of phenobarbital was administered in anticipation of the patient being discharged into the custody of her figolden . However, after the rc changed his mind and said that she needed to sober here at the hospital protocol was changed to [facility]. Reasoning behind this was to monitor for [...] of placing stirrup on ankle with her figolden . He responded that he is no longer willing to take her home while she is intoxicated. He is requesting to have her sober here. [AP] ED Course User Index [AP] Flaquito Blake DO Historian: patient and spouse External Record Review: Recent Encounters Social Determinants Impacting Care: Social Drivers of Health Tobacco Use: High Risk (09/27/2024) Patient History - Smoking Tobacco Use: Every Day - Smokeless Tobacco Use: Unknown - Passive Exposure: Not on file Alcohol Use: Not on file Financial Resource Strain: Medium Risk (05/22/2020) Re[facility] Overall Financial Resource Strain (CARDIA) - [...] Yes Physical Activity: Inactive (01/23/2019) [facility] Exercise Vital Sign - Days of [...] Sexually Abused: No Depression: At risk (05/28/2020) (more content not included)... Normal [facility] HCG, BLOOD, QUANTITATIVEon 0 09-27-2024 HCG, QUANTITATIVE < Normal 0-5 [facility] Comment on above: Order Comment: Males and non females: <5 mIU/mL Females during : 3-4 weeks 9-130 mIU/mL 4-5 weeks 75-2600 mIU/mL 5-6 weeks 850-20,800 mIU/mL 6-7 weeks 4000-100,200 mIU/mL 7-12 weeks 11,500-289,000 mIU/mL 12-16 weeks 18,300-137,000 mIU/mL 16-29 weeks 1,400-53,000 mIU/mL 29-41 weeks 940-60,000 mIU/mL Performed By: #### 4 5827 #### [facility] [place], [place] [address] Clarice Adam M.D. [id number] HEPATIC FUNCTION PANELon Albumin [Mass/Vol] 3.9 g/dL Normal 3.2-5.2 [facility] Comment on above: Performed By: #### 4 5866 #### LAB [address] [place] [address] Clarice Adam M.D. [id number] ALP [Catalytic activity/Vol] 84 U/L Normal 40-140 [facility] Comment on above: Performed By: #### 4 5866 #### LAB [address] [place] [address] Clarice Adam M.D. [id number] ALT [Catalytic activity/Vol] 10 U/L Normal 0-35 U/L [facility] Comment on above: Performed By: #### 4 5866 #### LAB [address] [place] [address] Clarice Adam M.D. [id number] AST [Catalytic activity/Vol] 21 U/L Normal 0-35 U/L [facility] Comment on above: Performed By: #### 4 5866 #### LAB [address] [place] [address] Clarice Adam M.D. [id number] Bilirubin [Mass/Vol] 0.3 mg/dL Normal 0.0-1.3 [facility] Comment on above: Performed By: #### 4 5866 #### LAB [address] [place] [address] Clarice Adam M.D. [id number] BILIRUBIN, DIRECT < Normal 0.0-0.4 [facility] Comment on above: Performed By: #### 4 5866 #### LAB [address] [place] [address] Clraice Adam M.D. [id number] Protein [Mass/Vol] 7.1 g/dL Normal 6.0-8.0 [facility] Comment on above: Performed By: #### 4 5866 #### LAB [address] [place] [address] Clarice Adam M.D. [id number] URINALYSISon 09-27-2024 BACTERIA, URINE Rare Abnormal None Seen [facility] Comment on above: Order Comment: Micro scopic examination is performed on all urinalysis samples and only positive findings are reported. The test for blood on the chemical analytic portion of urinalysis may also be positive due to hemoglobinuria and myoglobinuria and if red blood cells are present they are quantified by microscopic examination. Performed By: #### 4 6625 #### LAB [address] [place] [address] Clarice Adam M.D. [id number] BILIRUBIN, URINE Negative Normal Negative [facility] Comment on above: Order Comment: Micro scopic examination is performed on all urinalysis samples and only positive findings are reported. The test for blood on the chemical analytic portion of urinalysis may also be positive due to hemoglobinuria and myoglobinuria and if red blood cells are present they are quantified by microscopic examination. Performed By: #### 4 6625 #### LAB [address] [place] [address] Clarice Adam M.D. [id number] BLOOD, URINE Negative Normal Negative [facility] Comment on above: Order Comment: Micro scopic examination is performed on all urinalysis samples and only positive findings are reported. The test for blood on the chemical analytic portion of urinalysis may also be positive due to hemoglobinuria and myoglobinuria and if red blood cells are present they are quantified by microscopic examination. Performed By: #### 4 6625 #### LAB [address] [place] [address] Clarice Adam M.D. [id number] Clarity (U) Clear Normal Clear [facility] Comment on above: Order Comment: Micro scopic examination is performed on all urinalysis samples and only positive findings are reported. The test for blood on the chemical analytic portion of urinalysis may also be positive due to hemoglobinuria and myoglobinuria and if red blood cells are present they are quantified by microscopic examination. Performed By: #### 4 6625 #### LAB [address] [place] [address] Clarice Adam M.D. [id number] Color (U) Colorless Normal Colorless, Yellow [facility] Comment on above: Order Comment: Micro scopic examination is performed on all urinalysis samples and only positive findings are reported. The test for blood on the chemical analytic portion of urinalysis may also be positive due to hemoglobinuria and myoglobinuria and if red blood cells are present they are quantified by microscopic examination. Performed By: #### 4 6625 #### LAB [address] [place] [address] Clarice Adam M.D. [id number] Glucose Ql (U) Negative Normal Negative [facility] Comment on above: Order Comment: Micro scopic examination is performed on all urinalysis samples and only positive findings are reported. The test for blood on the chemical analytic portion of urinalysis may also be positive due to hemoglobinuria and myoglobinuria and if red blood cells are present they are quantified by microscopic examination. Performed By: #### 4 6625 #### LAB [address] [place] [address] Clarice Adam M.D. [id number] Ketones Ql (U) Negative Normal Negative [facility] Comment on above: Order Comment: Micro scopic examination is performed on all urinalysis samples and only positive findings are reported. The test for blood on the chemical analytic portion of urinalysis may also be positive due to hemoglobinuria and myoglobinuria and if red blood cells are present they are quantified by microscopic examination. Performed By: #### 4 6625 #### LAB [address] [place] [address] Clarice Adam M.D. [id number] Leukocyte esterase Test strip Ql (U) Negative Normal [facility] Comment on above: Order Comment: Micro scopic examination is performed on all urinalysis samples and only positive findings are reported. The test for blood on the chemical analytic portion of urinalysis may also be positive due to hemoglobinuria and myoglobinuria and if red blood cells are present they are quantified by microscopic examination. Performed By: #### 4 6625 #### LAB [address] [place] [address] Clarice Adam M.D. [id number] NITRITE, URINE Negative Normal Negative [facility] Comment on above: Order Comment: Micro scopic examination is performed on all urinalysis samples and only positive findings are reported. The test for blood on the chemical analytic portion of urinalysis may also be positive due to hemoglobinuria and myoglobinuria and if red blood cells are present they are quantified by microscopic examination. Performed By: #### 4 6625 #### LAB [address] [place] [address] Clarice Adam M.D. [id number] pH (U) 6.0 [pH] Normal 5.0-7.0 [facility] Comment on above: Order Comment: Micro scopic examination is performed on all urinalysis samples and only positive findings are reported. The test for blood on the chemical analytic portion of urinalysis may also be positive due to hemoglobinuria and myoglobinuria and if red blood cells are present they are quantified by microscopic examination. Performed By: #### 4 6625 #### LAB [address] [place] [address] Clarice Adam M.D. [id number] PROTEIN, URINE Negative Normal Negative [facility] Comment on above: Order Comment: Micro scopic examination is performed on all urinalysis samples and only positive findings are reported. The test for blood on the chemical analytic portion of urinalysis may also be positive due to hemoglobinuria and myoglobinuria and if red blood cells are present they are quantified by microscopic examination. Performed By: #### 4 6625 #### LAB [address] [place] [address] Clarice Adam M.D. [id number] Specific gravity (U) [Rel density] 1.008 Normal 1.005-1.02 5 [facility] Comment on above: Order Comment: Micro scopic examination is performed on all urinalysis samples and only positive findings are reported. The test for blood on the chemical analytic portion of urinalysis may also be positive due to hemoglobinuria and myoglobinuria and if red blood cells are present they are quantified by microscopic examination. Performed By: #### 4 6625 #### LAB [address] [place] [address] Clarice Adam M.D. [id number] SQUAMOUS EPITHELIAL 3 /hpf Normal 0-4 [facility] Comment on above: Order Comment: Micro scopic examination is performed on all urinalysis samples and only positive findings are reported. The test for blood on the chemical analytic portion of urinalysis may also be positive due to hemoglobinuria and myoglobinuria and if red blood cells are present they are quantified by microscopic examination. Performed By: #### 4 6625 #### LAB [address] [place], [place] [id number] Clarice Adam M.D. [id number] UROBILINOGEN, URINE <2.0 Normal <2.0 [facility] Comment on above: Order Comment: Micro scopic examination is performed on all urinalysis samples and only positive findings are reported. The test for blood on the chemical analytic portion of urinalysis may also be positive due to hemoglobinuria and myoglobinuria and if red blood cells are present they are quantified by microscopic examination. Performed By: #### 4 6625 #### LAB [address] [place] [address] Clarice Adam M.D. [id number] WBC LM.HPF (Urine sed) [#/Area] 1 /[HPF] Normal 0-5 [facility] Comment on above: Order Comment: Micro scopic examination is performed on all urinalysis samples and only positive findings are reported. The test for blood on the chemical analytic portion of urinalysis may also be positive due to hemoglobinuria and myoglobinuria and if red blood cells are present they are quantified by microscopic examination. Performed By: #### 4 6625 #### [facility] [address] [place] [address] Clarice Adam M.D. [id number] XR ANKLE LEFT 3+ VIEWS (LORI CORADO)on 09-27-2024 XR ANKLE LEFT 3+ VIEWS (STANDARD) EXAMINATION: XR ANKLE LEFT 3+ VIEWS (STANDARD); [...] on MonSep 27, 2024 9:13:54 PM EDT [facility] Comment on above: Order Comment: [facility] has implemented the eGFR calculation approach that does not have a coefficient for race that conforms to the NKF-ASN Task Force Recommendations. XR FOOT LEFT 3+ VIEWS (STAND ALAINA)on 09-27-2024 XR FOOT LEFT 3+ VIEWS (STANDARD) EXAMINATION: XR ANKLE LEFT 3+ VIEWS (STANDARD); [...] on MonSep 27, 2024 9:13:54 PM EDT [facility] Comment on above: Order Comment: Males and non females: <5 mIU/mL Females during : 3-4 weeks 9-130 mIU/mL 4-5 weeks 75-2600 mIU/mL 5-6 weeks 850-20,800 mIU/mL 6-7 weeks 4000-100,200 mIU/mL 7-12 weeks 11,500-289,000 mIU/mL 12-16 weeks 18,300-137,000 mIU/mL 16-29 weeks 1,400-53,000 mIU/mL 29-41 weeks 940-60,000 mIU/mL EKGon 09-26-2024 [facility] URINALYSISon 09-26-2024 BACTERIA, URINE None Seen Normal None Seen [facility] Comment on above: Order Comment: Males and non females: <5 mIU/mL Females during : 3-4 weeks 9-130 mIU/mL 4-5 weeks 75-2600 mIU/mL 5-6 weeks 850-20,800 mIU/mL 6-7 weeks 4000-100,200 mIU/mL 7-12 weeks 11,500-289,000 mIU/mL 12-16 weeks 18,300-137,000 mIU/mL 16-29 weeks 1,400-53,000 mIU/mL 29-41 weeks 940-60,000 mIU/mL Performed By: #### 4 5827 #### LAB [address] [place] [address] Clarice Adam M.D. [id number] BILIRUBIN, URINE Negative Normal Negative [facility] Comment on above: Order Comment: Males and non females: <5 mIU/mL Females during : 3-4 weeks 9-130 mIU/mL 4-5 weeks 75-2600 mIU/mL 5-6 weeks 850-20,800 mIU/mL 6-7 weeks 4000-100,200 mIU/mL 7-12 weeks 11,500-289,000 mIU/mL 12-16 weeks 18,300-137,000 mIU/mL 16-29 weeks 1,400-53,000 mIU/mL 29-41 weeks 940-60,000 mIU/mL Performed By: #### 4 5827 #### LAB [address] [place] [address] Clarice Adam M.D. [id number] BLOOD, URINE Negative Normal Negative [facility] Comment on above: Order Comment: Males and non females: <5 mIU/mL Females during : 3-4 weeks 9-130 mIU/mL 4-5 weeks 75-2600 mIU/mL 5-6 weeks 850-20,800 mIU/mL 6-7 weeks 4000-100,200 mIU/mL 7-12 weeks 11,500-289,000 mIU/mL 12-16 weeks 18,300-137,000 mIU/mL 16-29 weeks 1,400-53,000 mIU/mL 29-41 weeks 940-60,000 mIU/mL Performed By: #### 4 5827 #### LAB [address] [place] [address] Clarice Adam M.D. [id number] Clarity (U) Clear Normal Clear [facility] Comment on above: Order Comment: Males and non females: <5 mIU/mL Females during : 3-4 weeks 9-130 mIU/mL 4-5 weeks 75-2600 mIU/mL 5-6 weeks 850-20,800 mIU/mL 6-7 weeks 4000-100,200 mIU/mL 7-12 weeks 11,500-289,000 mIU/mL 12-16 weeks 18,300-137,000 mIU/mL 16-29 weeks 1,400-53,000 mIU/mL 29-41 weeks 940-60,000 mIU/mL Performed By: #### 4 5827 #### LAB [address] [place], [place] [address] Clarice Adam M.D. [id number] Color (U) Yellow Normal Colorless, Yellow [facility] Comment on above: Order Comment: Males and non females: <5 mIU/mL Females during : 3-4 weeks 9-130 mIU/mL 4-5 weeks 75-2600 mIU/mL 5-6 weeks 850-20,800 mIU/mL 6-7 weeks 4000-100,200 mIU/mL 7-12 weeks 11,500-289,000 mIU/mL 12-16 weeks 18,300-137,000 mIU/mL 16-29 weeks 1,400-53,000 mIU/mL 29-41 weeks 940-60,000 mIU/mL Performed By: #### 4 5827 #### LAB [facility] [place] [address] Clarice Adam M.D. [id number] Glucose Ql (U) Negative Normal Negative [facility] Comment on above: Order Comment: Males and non females: <5 mIU/mL Females during : 3-4 weeks 9-130 mIU/mL 4-5 weeks 75-2600 mIU/mL 5-6 weeks 850-20,800 mIU/mL 6-7 weeks 4000-100,200 mIU/mL 7-12 weeks 11,500-289,000 mIU/mL 12-16 weeks 18,300-137,000 mIU/mL 16-29 weeks 1,400-53,000 mIU/mL 29-41 weeks 940-60,000 mIU/mL Performed By: #### 4 5827 #### [facility] [address] [place] [address] Clarice Adam M.D. [id number] Ketones Ql (U) Negative Normal Negative [facility] Comment on above: Order Comment: Males and non females: <5 mIU/mL Females during : 3-4 weeks 9-130 mIU/mL 4-5 weeks 75-2600 mIU/mL 5-6 weeks 850-20,800 mIU/mL 6-7 weeks 4000-100,200 mIU/mL 7-12 weeks 11,500-289,000 mIU/mL 12-16 weeks 18,300-137,000 mIU/mL 16-29 weeks 1,400-53,000 mIU/mL 29-41 weeks 940-60,000 mIU/mL Performed By: #### 4 5827 #### [facility] [address] [place] [address] Clarice Adam M.D. [id number] Leukocyte esterase Test strip Ql (U) Negative Normal Negative [facility] Comment on above: Order Comment: Males and non females: <5 mIU/mL Females during : 3-4 weeks 9-130 mIU/mL 4-5 weeks 75-2600 mIU/mL 5-6 weeks 850-20,800 mIU/mL 6-7 weeks 4000-100,200 mIU/mL 7-12 weeks 11,500-289,000 mIU/mL 12-16 weeks 18,300-137,000 mIU/mL 16-29 weeks 1,400-53,000 mIU/mL 29-41 weeks 940-60,000 mIU/mL Performed By: #### 4 5827 #### LAB [address] [place], [place] [address] Clarice Adam M.D. [id number] NITRITE, URINE Negative Normal Negative [facility] Comment on above: Order Comment: Males and non females: <5 mIU/mL Females during : 3-4 weeks 9-130 mIU/mL 4-5 weeks 75-2600 mIU/mL 5-6 weeks 850-20,800 mIU/mL 6-7 weeks 4000-100,200 mIU/mL 7-12 weeks 11,500-289,000 mIU/mL 12-16 weeks 18,300-137,000 mIU/mL 16-29 weeks 1,400-53,000 mIU/mL 29-41 weeks 940-60,000 mIU/mL Performed By: #### 4 5827 #### [facility] [address] [place], [place] [address] Clarice Adam M.D. [id number] pH (U) 6.5 [pH] Normal 5.0-7.0 [facility] Comment on above: Order Comment: Males and non females: <5 mIU/mL Females during : 3-4 weeks 9-130 mIU/mL 4-5 weeks 75-2600 mIU/mL 5-6 weeks 850-20,800 mIU/mL 6-7 weeks 4000-100,200 mIU/mL 7-12 weeks 11,500-289,000 mIU/mL 12-16 weeks 18,300-137,000 mIU/mL 16-29 weeks 1,400-53,000 mIU/mL 29-41 weeks 940-60,000 mIU/mL Performed By: #### 4 5827 #### [facility] [address] [place], [place] [address] Clarice Adam M.D. [id number] PROTEIN, URINE Negative Normal Negative [facility] Comment on above: Order Comment: Males and non females: <5 mIU/mL Females during : 3-4 weeks 9-130 mIU/mL 4-5 weeks 75-2600 mIU/mL 5-6 weeks 850-20,800 mIU/mL 6-7 weeks 4000-100,200 mIU/mL 7-12 weeks 11,500-289,000 mIU/mL 12-16 weeks 18,300-137,000 mIU/mL 16-29 weeks 1,400-53,000 mIU/mL 29-41 weeks 940-60,000 mIU/mL Performed By: #### 4 5827 #### LAB [address] [place], [place] [address] Clarice Adam M.D. [id number] Specific gravity (U) [Rel density] 1.021 Normal 1.005-1.[address] [place] [address] Comment on above: Order Comment: Males and non females: <5 mIU/mL Females during : 3-4 weeks 9-130 mIU/mL 4-5 weeks 75-2600 mIU/mL 5-6 weeks 850-20,800 mIU/mL 6-7 weeks 4000-100,200 mIU/mL 7-12 weeks 11,500-289,000 mIU/mL 12-16 weeks 18,300-137,000 mIU/mL 16-29 weeks 1,400-53,000 mIU/mL 29-41 weeks 940-60,000 mIU/mL Performed By: #### 4 5827 #### [facility] [place], [place] [address] Clarice Adam M.D. [id number] UROBILINOGEN, URINE <2.0 Normal <2.0 [facility] Comment on above: Order Comment: Males and non females: <5 mIU/mL Females during : 3-4 weeks 9-130 mIU/mL 4-5 weeks 75-2600 mIU/mL 5-6 weeks 850-20,800 mIU/mL 6-7 weeks 4000-100,200 mIU/mL 7-12 weeks 11,500-289,000 mIU/mL 12-16 weeks 18,300-137,000 mIU/mL 16-29 weeks 1,400-53,000 mIU/mL 29-41 weeks 940-60,000 mIU/mL Performed By: #### 4 5827 #### LAB [address] [place], [place] [address] Clarice Adam M.D. [id number] WBC CLUMPS, URINE Rare Abnormal None Seen [facility] Comment on above: Order Comment: Males and non females: <5 mIU/mL Females during : 3-4 weeks 9-130 mIU/mL 4-5 weeks 75-2600 mIU/mL 5-6 weeks 850-20,800 mIU/mL 6-7 weeks 4000-100,200 mIU/mL 7-12 weeks 11,500-289,000 mIU/mL 12-16 weeks 18,300-137,000 mIU/mL 16-29 weeks 1,400-53,000 mIU/mL 29-41 weeks 940-60,000 mIU/mL Performed By: #### 4 5827 #### [facility] [place], [place] [address] Clarice Adam M.D. [id number] WBC LM.HPF (Urine sed) [#/Area] 1 /[HPF] Normal 0-5 [facility] Comment on above: Order Comment: Males and non females: <5 mIU/mL Females during : 3-4 weeks 9-130 mIU/mL 4-5 weeks 75-2600 mIU/mL 5-6 weeks 850-20,800 mIU/mL 6-7 weeks 4000-100,200 mIU/mL 7-12 weeks 11,500-289,000 mIU/mL 12-16 weeks 18,300-137,000 mIU/mL 16-29 weeks 1,400-53,000 mIU/mL 29-41 weeks 940-60,000 mIU/mL Performed By: #### 4 5827 #### [facility] [place], [place] [address] Clarice Adam M.D. [id number] UrinalysisOrdered By: Cassy Silverio on 09-26-2024 Bacteria Auto Ql (U) None Seen None Se en [facility] Bilirubin Ql (U) Negative Negative [facility] th Clarity Refractometry automated (U) Clear Clear [facility] Color (U) Yellow Colorless, Yellow [facility] Glucose Auto test strip (U) [Mass/Vol] Negative Negative mg/dL [facility] Hemoglobin Auto test strip Ql (U) Negative Negative [facility] Interpretation and review of laboratory results Abnormal [facility] Ketones (U) [Mass/Vol] Negative Negat kimberly mg/dL [facility] Leukocyte clumps Auto (Urine sed) [#/Area] Rare Abnormal None Seen /hpf [facility] Leukocyte esterase Auto test strip Ql (U) Negative Negative [facility] Nitrite Auto test strip Ql (U) Negative Negative [facility] pH (U) 6.5 [pH] 5.0 - 7.0 [facility] Protein (U) [Mass/Vol] Negative Negat kimberly mg/dL [facility] Specific gravity (U) [Rel density] 1.021 1.005 - 1.025 [facility] Urobilinogen (U) [Mass/Vol] mg/dL NINF - 2.0 mg/dL [facility] WBC Auto (Urine sed) [#/Area] 1 [facility] Microscopic examination is performed on all urinalysis samples and only positive findings are reported. The test for blood on the chemical analytic portion of urinalysis may also be positive due to hemoglobinuria and myoglobinuria and if red blood cells are present they are quantified by microscopic examination. [facility] CBC Auto Differentialon 09-13 Basophils (Bld) [#/Vol] 0.03 10*3/uL [facility] Basophils/100 WBC (Bld) 0.3 % [facility] Eosinophils (Bld) [#/Vol] 0.22 10*3/uL [facility] Eosinophils/100 WBC (Bld) 2.3 % [facility] Erythrocyte distribution width (RBC) [Entitic vol] 12.9 % 11.6 - 14.8 % [facility] Hematocrit (Bld) [Volume fraction] 35.5 % Low 36.0 - 46.0 % [facility] Hemoglobin (Bld) [Mass/Vol] 11.6 g/dL Low 12.0 - 16.0 g/dL [facility] Immature granulocytes (Bld) [#/Vol] 0.03 10*3/uL [facility] Immature granulocytes/100 WBC (Bld) 0.3 % [facility] Comment on above: The IG parameter is the percentage of metamyelocytes, myelocytes and promyelocytes. An immature granulocyte count (IG) of 1% or more suggests the possibility of infection, an IG count of 3% is very likely related to an infection. Interpretation and review of laboratory results Abnormal [facility] Lymphocytes (Bld) [#/Vol] 3.67 10*3/uL [facility] Lymphocytes/100 WBC (Bld) 38 % [facility] MCH (RBC) [Entitic mass] 31 pg 26. 0 - 34.0 pg [facility] MCHC (RBC) [Mass/Vol] 32.7 g/dL 31.0 - 37.0 g/dL [facility] MCV (RBC) [Entitic vol] 94.9 fL 80.0 - 100.0 fL [facility] Monocytes (Bld) [#/Vol] 0.75 10*3/uL [facility] Monocytes/100 WBC (Bld) 7.8 % [facility] Neutrophils (Bld) [#/Vol] 4.95 10*3/uL [facility] Neutrophils/100 WBC (Bld) 51.3 % [facility] Nucleated RBC (Bld) [#/Vol] 0 10*3/uL [facility] Nucleated RBC/100 WBC (Bld) [Ratio] 0 % [facility] Platelet mean volume (Bld) [Entitic vol] 9.8 fL 9.4 - 12.4 fL [facility] Platelets (Bld) [#/Vol] 275 10*3/uL [facility] RBC (Bld) [#/Vol] 3.74 10*6/uL Low [facility] WBC (Bld) [#/Vol] 9.65 10*3/uL [facility] CBC WITH AUTO DIFFERENTIALon 09-25-2024 AUTO NRBC 0.0 % Normal [facility] Comment on above: Performed By: #### 4 9212 #### LAB [address] [place], [place] [address] Clarice Adam M.D. [id number] AUTO NRBC ABS COUNT 0.00 K/mcL Normal 0.00-0.00 [facility] Comment on above: Performed By: #### 5 7960 #### LAB [address] [place], [place] [address] Clarice Adam M.D. [id number] BASOPHILS ABSOLUTE COUNT 0.03 K/mcL Normal 0.00-0.30 [facility] Comment on above: Performed By: #### 4 1417 #### LAB [address] [place] [address] Clarice Adam M.D. [id number] Basophils/100 WBC (Bld) 0.3 % Normal [facility] Comment on above: Performed By: #### 4 6124 #### LAB [address] [place] [address] Clarice Adam M.D. [id number] Eosinophils (Bld) [#/Vol] 0.22 10*3/uL Normal 0.00-0.5 0 [facility] Comment on above: Performed By: #### 4 6124 #### LAB [address] [place] [address] Clarice Adam M.D. [id number] Eosinophils/100 WBC (Bld) 2.3 % Normal [facility] Comment on above: Performed By: #### 4 6124 #### LAB [address] [place] [address] Clarice Adam M.D. [id number] Erythrocyte distribution width (RBC) [Ratio] 12.9 % Normal 11.6-14.8 [facility] Comment on above: Performed By: #### 4 6124 #### LAB [address] [place] [address] Clarice Adam M.D. [id number] Hematocrit (Bld) [Volume fraction] 35.5 % Low 36.0-46.0 [facility] Comment on above: Performed By: #### 4 6124 #### LAB [address] [place] [address] Clarice Adam M.D. [id number] Hemoglobin (Bld) [Mass/Vol] 11.6 g/dL Low 12.0-16.0 [facility] Comment on above: Performed By: #### 4 6124 #### LAB [address] [place] [address] Clarice Adam M.D. [id number] IG ABSOLUTE 0.03 K/mcL Normal 0.00-0.30 [facility] Comment on above: Performed By: #### 4 6182 #### LAB [address] [place] [address] Clarice Adam M.D. [id number] IG PERCENT 0.30 % Normal [facility] Comment on above: Result Comment: The IG parameter is the percentage of metamyelocytes, myelocytes and promyelocytes. An immature granulocyte count (IG) of 1% or more suggests the possibility of infection, an IG count of 3% is very likely related to an infection. Performed By: #### 4 6124 #### LAB [address] [place] [address] Clarice Adam M.D. [id number] Lymphocytes (Bld) [#/Vol] 3.67 10*3/uL Normal 0.90-4.0 0 [facility] Comment on above: Performed By: #### 4 6124 #### LAB [address] [place] [address] Clarice Adam M.D. [id number] Lymphocytes/100 WBC (Bld) 38.0 % Normal [facility] Comment on above: Performed By: #### 4 6124 #### LAB [address] [place] [address] Clarice Adam M.D. [id number] MCH (RBC) [Entitic mass] 31.0 pg Normal 26.0-34.0 [facility] Comment on above: Performed By: #### 4 6124 #### LAB [address] [place] [address] Clarice Adam M.D. [id number] MCV (RBC) [Entitic vol] 94.9 fL Normal 80.0-100.0 D [facility] Comment on above: Performed By: #### 4 6124 #### LAB [address] [place] [address] Clarice Adam M.D. [id number] MEAN CORPUSCULAR HEMOGLOBIN CONC 32.7 g/dL Normal 31.0-37.0 [facility] Comment on above: Performed By: #### 4 6122 #### LAB [address] [place] [address] Clarice Adam M.D. [id number] Monocytes (Bld) [#/Vol] 0.75 10*3/uL Normal 0.30-0.90 [facility] Comment on above: Performed By: #### 4 6182 #### LAB [address] [place] [address] Clarice Adam M.D. [id number] Monocytes/100 WBC (Bld) 7.8 % Normal [facility] Comment on above: Performed By: #### 4 6124 #### LAB [address] [place] [address] Clarice Adam M.D. [id number] NEUTROPHILS ABSOLUTE COUNT 4.95 K/mcL Normal 1.70-7.00 [facility] Comment on above: Performed By: #### 4 6124 #### LAB [address] [place] [address] Clarice Adam M.D. [id number] Neutrophils/100 WBC (Bld) 51.3 % Normal [facility] Comment on above: Performed By: #### 4 6124 #### LAB [address] [place] [address] Clarice Adam M.D. [id number] Platelet mean volume (Bld) [Entitic vol] 9.8 fL Normal 9.4-12.4 [facility] Comment on above: Performed By: #### 4 6124 #### LAB [address] [place] [address] Clarice Adam M.D. [id number] Platelets (Bld) [#/Vol] 275 10*3/uL Normal 150-400 [facility] Comment on above: Performed By: #### 4 6124 #### LAB [address] [place] [address] Clarice Adam M.D. [id number] RBC (Bld) [#/Vol] 3.74 10*6/uL Low 4.00-5.20 [facility] Comment on above: Performed By: #### 4 6124 #### LAB [address] [place] [address] Clarice Adam M.D. [id number] WBC (Bld) [#/Vol] 9.65 10*3/uL Normal 4.50-11.00 [facility] Comment on above: Performed By: #### 4 6124 #### LAB [address] [place] [address] Clarice Adam M.D. [id number] [facility] METABOLIC [facility] 09-25-2024 Albumin [Mass/Vol] 3.7 g/dL Normal 3.2-5.2 [facility] Comment on above: Order Comment: Males and non females: <5 mIU/mL Females during : 3-4 weeks 9-130 mIU/mL 4-5 weeks 75-2600 mIU/mL 5-6 weeks 850-20,800 mIU/mL 6-7 weeks 4000-100,200 mIU/mL 7-12 weeks 11,500-289,000 mIU/mL 12-16 weeks 18,300-137,000 mIU/mL 16-29 weeks 1,400-53,000 mIU/mL 29-41 weeks 940-60,000 mIU/mL Performed By: #### 4 5827 #### LAB [address] [place], [place] [address] Clarice Adam M.D. [id number] ALP [Catalytic activity/Vol] 71 U/L Normal 40-140 [facility] Comment on above: Order Comment: Males and non females: <5 mIU/mL Females during : 3-4 weeks 9-130 mIU/mL 4-5 weeks 75-2600 mIU/mL 5-6 weeks 850-20,800 mIU/mL 6-7 weeks 4000-100,200 mIU/mL 7-12 weeks 11,500-289,000 mIU/mL 12-16 weeks 18,300-137,000 mIU/mL 16-29 weeks 1,400-53,000 mIU/mL 29-41 weeks 940-60,000 mIU/mL Performed By: #### 4 5827 #### LAB [address] [place], [place] [address] Clarice Adam M.D. [id number] ALT [Catalytic activity/Vol] 6 U/L Normal 0-35 U/L [facility] Comment on above: Order Comment: Males and non females: <5 mIU/mL Females during : 3-4 weeks 9-130 mIU/mL 4-5 weeks 75-2600 mIU/mL 5-6 weeks 850-20,800 mIU/mL 6-7 weeks 4000-100,200 mIU/mL 7-12 weeks 11,500-289,000 mIU/mL 12-16 weeks 18,300-137,000 mIU/mL 16-29 weeks 1,400-53,000 mIU/mL 29-41 weeks 940-60,000 mIU/mL Performed By: #### 4 5827 #### LAB [address] [place], [place] [address] Clarice Adam M.D. [id number] Anion gap [Moles/Vol] 15 mmol/L Normal 10-20 [facility] Comment on above: Order Comment: Males and non females: <5 mIU/mL Females during : 3-4 weeks 9-130 mIU/mL 4-5 weeks 75-2600 mIU/mL 5-6 weeks 850-20,800 mIU/mL 6-7 weeks 4000-100,200 mIU/mL 7-12 weeks 11,500-289,000 mIU/mL 12-16 weeks 18,300-137,000 mIU/mL 16-29 weeks 1,400-53,000 mIU/mL 29-41 weeks 940-60,000 mIU/mL Performed By: #### 4 5827 #### [facility] [address] [place] [address] Clarice Adam M.D. [id number] AST [Catalytic activity/Vol] 27 U/L Normal 0-35 U/L [facility] Comment on above: Order Comment: Males and non females: <5 mIU/mL Females during : 3-4 weeks 9-130 mIU/mL 4-5 weeks 75-2600 mIU/mL 5-6 weeks 850-20,800 mIU/mL 6-7 weeks 4000-100,200 mIU/mL 7-12 weeks 11,500-289,000 mIU/mL 12-16 weeks 18,300-137,000 mIU/mL 16-29 weeks 1,400-53,000 mIU/mL 29-41 weeks 940-60,000 mIU/mL Performed By: #### 4 5827 #### [facility] [address] [place], [place] [address] Clarice Adam M.D. [id number] Bilirubin [Mass/Vol] 1.0 mg/dL Normal 0.0-1.3 [facility] Comment on above: Order Comment: Males and non females: <5 mIU/mL Females during : 3-4 weeks 9-130 mIU/mL 4-5 weeks 75-2600 mIU/mL 5-6 weeks 850-20,800 mIU/mL 6-7 weeks 4000-100,200 mIU/mL 7-12 weeks 11,500-289,000 mIU/mL 12-16 weeks 18,300-137,000 mIU/mL 16-29 weeks 1,400-53,000 mIU/mL 29-41 weeks 940-60,000 mIU/mL Performed By: #### 4 5827 #### [facility] [address] [place], [place] [address] Clarice Adam M.D. [id number] BUN / CREAT RATIO [facility] Comment on above: Order Comment: Males and non females: <5 mIU/mL Females during : 3-4 weeks 9-130 mIU/mL 4-5 weeks 75-2600 mIU/mL 5-6 weeks 850-20,800 mIU/mL 6-7 weeks 4000-100,200 mIU/mL 7-12 weeks 11,500-289,000 mIU/mL 12-16 weeks 18,300-137,000 mIU/mL 16-29 weeks 1,400-53,000 mIU/mL 29-41 weeks 940-60,000 mIU/mL Result Comment: Unab le to calculate; a result component is outside measurable limits. Performed By: #### 4 5827 #### [facility] [address] [place], [place] [address] Clarice Adam M.D. [id number] Calcium [Mass/Vol] 8.8 mg/dL Normal 8.4-10.2 [facility] Comment on above: Order Comment: Males and non females: <5 mIU/mL Females during : 3-4 weeks 9-130 mIU/mL 4-5 weeks 75-2600 mIU/mL 5-6 weeks 850-20,800 mIU/mL 6-7 weeks 4000-100,200 mIU/mL 7-12 weeks 11,500-289,000 mIU/mL 12-16 weeks 18,300-137,000 mIU/mL 16-29 weeks 1,400-53,000 mIU/mL 29-41 weeks 940-60,000 mIU/mL Performed By: #### 4 5827 #### [facility] [place], [place] [address] Clarice Adam M.D. [id number] Chloride [Moles/Vol] 104 mmol/L Normal 98-108 [facility] Comment on above: Order Comment: Males and non females: <5 mIU/mL Females during : 3-4 weeks 9-130 mIU/mL 4-5 weeks 75-2600 mIU/mL 5-6 weeks 850-20,800 mIU/mL 6-7 weeks 4000-100,200 mIU/mL 7-12 weeks 11,500-289,000 mIU/mL 12-16 weeks 18,300-137,000 mIU/mL 16-29 weeks 1,400-53,000 mIU/mL 29-41 weeks 940-60,000 mIU/mL Performed By: #### 4 5827 #### [facility] [address] [place] [address] Clarice Adam M.D. [id number] CREATININE < Low 0.40-1.10 [facility] Comment on above: Order Comment: Males and non females: <5 mIU/mL Females during : 3-4 weeks 9-130 mIU/mL 4-5 weeks 75-2600 mIU/mL 5-6 weeks 850-20,800 mIU/mL 6-7 weeks 4000-100,200 mIU/mL 7-12 weeks 11,500-289,000 mIU/mL 12-16 weeks 18,300-137,000 mIU/mL 16-29 weeks 1,400-53,000 mIU/mL 29-41 weeks 940-60,000 mIU/mL Performed By: #### 4 5827 #### [facility] [place], [place] [address] Clarice Adam M.D. [id number] EGFR Normal [facility] Comment on above: Order Comment: Males and non females: <5 mIU/mL Females during : 3-4 weeks 9-130 mIU/mL 4-5 weeks 75-2600 mIU/mL 5-6 weeks 850-20,800 mIU/mL 6-7 weeks 4000-100,200 mIU/mL 7-12 weeks 11,500-289,000 mIU/mL 12-16 weeks 18,300-137,000 mIU/mL 16-29 weeks 1,400-53,000 mIU/mL 29-41 weeks 940-60,000 mIU/mL Result Comment: Mulu mated GFR was calculated using the 2020 CKD-EPI creatinine equation. Performed By: #### 4 5827 #### LAB [facility] [place], [place] [address] Clarice Adam M.D. [id number] Glucose [Mass/Vol] 81 mg/dL Normal 65-99 [facility] Comment on above: Order Comment: Males and non females: <5 mIU/mL Females during : 3-4 weeks 9-130 mIU/mL 4-5 weeks 75-2600 mIU/mL 5-6 weeks 850-20,800 mIU/mL 6-7 weeks 4000-100,200 mIU/mL 7-12 weeks 11,500-289,000 mIU/mL 12-16 weeks 18,300-137,000 mIU/mL 16-29 weeks 1,400-53,000 mIU/mL 29-41 weeks 940-60,000 mIU/mL Performed By: #### 4 5827 #### LAB [facility] [place], [place] [address] Clarice Adam M.D. [id number] HCO3 (Bld) [Moles/Vol] 24 mmol/L Normal 21-32 [facility] Comment on above: Order Comment: Males and non females: <5 mIU/mL Females during : 3-4 weeks 9-130 mIU/mL 4-5 weeks 75-2600 mIU/mL 5-6 weeks 850-20,800 mIU/mL 6-7 weeks 4000-100,200 mIU/mL 7-12 weeks 11,500-289,000 mIU/mL 12-16 weeks 18,300-137,000 mIU/mL 16-29 weeks 1,400-53,000 mIU/mL 29-41 weeks 940-60,000 mIU/mL Performed By: #### 4 5827 #### LAB [address] [place], [place] [address] Clarice Adam M.D. [id number] Potassium [Moles/Vol] 3.7 mmol/L Normal 3.5-5.1 [facility] Comment on above: Order Comment: Males and non females: <5 mIU/mL Females during : 3-4 weeks 9-130 mIU/mL 4-5 weeks 75-2600 mIU/mL 5-6 weeks 850-20,800 mIU/mL 6-7 weeks 4000-100,200 mIU/mL 7-12 weeks 11,500-289,000 mIU/mL 12-16 weeks 18,300-137,000 mIU/mL 16-29 weeks 1,400-53,000 mIU/mL 29-41 weeks 940-60,000 mIU/mL Performed By: #### 4 5827 #### [facility] [place], [place] [address] Clarice Adam M.D. [id number] Protein [Mass/Vol] 6.3 g/dL Normal 6.0-8.0 [facility] Comment on above: Order Comment: Males and non females: <5 mIU/mL Females during : 3-4 weeks 9-130 mIU/mL 4-5 weeks 75-2600 mIU/mL 5-6 weeks 850-20,800 mIU/mL 6-7 weeks 4000-100,200 mIU/mL 7-12 weeks 11,500-289,000 mIU/mL 12-16 weeks 18,300-137,000 mIU/mL 16-29 weeks 1,400-53,000 mIU/mL 29-41 weeks 940-60,000 mIU/mL Performed By: #### 4 5827 #### [facility] [place], [place] [address] Clarice Adam M.D. [id number] Sodium [Moles/Vol] 139 mmol/L Normal 135-145 [facility] Comment on above: Order Comment: Males and non females: <5 mIU/mL Females during : 3-4 weeks 9-130 mIU/mL 4-5 weeks 75-2600 mIU/mL 5-6 weeks 850-20,800 mIU/mL 6-7 weeks 4000-100,200 mIU/mL 7-12 weeks 11,500-289,000 mIU/mL 12-16 weeks 18,300-137,000 mIU/mL 16-29 weeks 1,400-53,000 mIU/mL 29-41 weeks 940-60,000 mIU/mL Performed By: #### 4 5827 #### LAB [facility] [place], [place] [address] Clarice Adam M.D. [id number] Urea nitrogen [Mass/Vol] 14 mg/dL Normal 8-25 [facility] Comment on above: Order Comment: Males and non females: <5 mIU/mL Females during : 3-4 weeks 9-130 mIU/mL 4-5 weeks 75-2600 mIU/mL 5-6 weeks 850-20,800 mIU/mL 6-7 weeks 4000-100,200 mIU/mL 7-12 weeks 11,500-289,000 mIU/mL 12-16 weeks 18,300-137,000 mIU/mL 16-29 weeks 1,400-53,000 mIU/mL 29-41 weeks 940-60,000 mIU/mL Performed By: #### 4 5827 #### LAB [facility] [place], [place] [address] Clarice Adam M.D. [id number] CONSULTon 09-25-2024 CONSULT -- Attestation signed by Laisha Garcia DO at 09/25/2024 1:28 PM I have reviewed the documentation by Elizabeth Castaneda CNP including any history, physical exam, diagnosis, [...] Dhaval Moon Admit Date: [id number] MR #: [id number] : 2000 Physicians: Mary Kay Bradley (Family) No ref. provider found (referring) [...] family history. Allergies reviewed: Penicillin g Home Medication (more content not included)... [facility] Comprehensive metabolic 2000 panelOrdered By: Vincent Munoz on 09-25-2024 Albumin [Mass/Vol] 3.7 g/dL 3.2 - 5.2 g/dL [facility] ALP [Catalytic activity/Vol] 71 U/L 40 - 140 U/L [facility] ALT [Catalytic activity/Vol] 6 U/L 0 - 35 U/L [facility] Anion gap [Moles/Vol] 15 mmol/L 10 - 2 0 mmol/L [facility] AST [Catalytic activity/Vol] 27 U/L 0 - 35 U/L [facility] Bilirubin [Mass/Vol] 1 mg/dL 0.0 - 1 .3 mg/dL [facility] Calcium [Mass/Vol] 8.8 mg/dL 8.4 - 10. 2 mg/dL [facility] Chloride [Moles/Vol] 104 mmol/L 98 - 10 8 mmol/L [facility] Creatinine [Mass/Vol] mg/dL Low 0.40 - 1.10 mg/dL [facility] GFR/1.73 sq M.predicted CKD-EPI (S/P/Bld) [Vol rate/Area] [facility] Comment on above: Estimated GFR was ca lculated using the 2020 CKD-EPI creatinine equation. Glucose [Mass/Vol] 81 mg/dL 65 - 99 mg/dL [facility] HCO3 [Moles/Vol] 24 mmol/L 21 - 32 mmol/L [facility] Interpretation and review of laboratory results Abnormal [facility] Potassium [Moles/Vol] 3.7 mmol/L 3.5 - 5.1 mmol/L [facility] Protein [Mass/Vol] 6.3 g/dL 6.0 - 8.0 g/dL [facility] Sodium [Moles/Vol] 139 mmol/L 135 - 145 mmol/L [facility] Urea nitrogen [Mass/Vol] 14 mg/dL 8 - 25 mg/dL [facility] Urea nitrogen/Creatinine [Mass ratio] [facility] Comment on above: Unable to calculate; a result component is outside measurable limits. [facility] has implemented the eGFR calculation approach that does not have a coefficient for race that conforms to the NKF-ASN Task Force Recommendations. [facility] ED Procedureon 09-25-2024 ED Procedure EKG 12-lead Date/Time: 09/25/2024 1:05 AM Performed by: Kvng Rose DO Authorized by: Oralia Mike PA-C BPM: 108 Comments: VT 162. QRS 80. QTc 466. Normal axis. Sinus tachycardia. Some artifact appreciated. Nonspecific EKG. AUTHENTICATED BY KVNG ROSE, ON 09/25/2024 01:06:18 [facility] EKG 12-leadon 09-25-2024 Atrial Rate 108 BPM [facility] P [place] 47 degrees [facility] P-R Interval 162 ms [facility] Q-T Interval 348 ms [facility] QRS Duration 80 ms [facility] QTC Calculation (Bezet) 466 ms [facility] R [place] 33 degrees [facility] T [place] 6 degrees [facility] Ventricular Rate 108 BPM [facility] Sinus tachycardia Nonspecific T wave abnormality Abnormal ECG Confirmed by MOR Khanna AREF ([id number]) on 09/25/2024 7:32:07 PM [facility] HEMOGLOBIN A1Con 09-25-2024 Glucose [Mass/Vol] 128 mg/dL High 74-114 [facility] Comment on above: Order Comment: Males and non females: <5 mIU/mL Females during : 3-4 weeks 9-130 mIU/mL 4-5 weeks 75-2600 mIU/mL 5-6 weeks 850-20,800 mIU/mL 6-7 weeks 4000-100,200 mIU/mL 7-12 weeks 11,500-289,000 mIU/mL 12-16 weeks 18,300-137,000 mIU/mL 16-29 weeks 1,400-53,000 mIU/mL 29-41 weeks 940-60,000 mIU/mL Performed By: #### 4 [id number] #### [facility] [address] [place] [address] Clarice Adam M.D. [id number] HbA1c (Bld) [Mass fraction] 6.1 % High 4.2-5.6 [facility] Comment on above: Order Comment: Males and non females: <5 mIU/mL Females during : 3-4 weeks 9-130 mIU/mL 4-5 weeks 75-2600 mIU/mL 5-6 weeks 850-20,800 mIU/mL 6-7 weeks 4000-100,200 mIU/mL 7-12 weeks 11,500-289,000 mIU/mL 12-16 weeks 18,300-137,000 mIU/mL 16-29 weeks 1,400-53,000 mIU/mL 29-41 weeks 940-60,000 mIU/mL Performed By: #### 4 [id number] #### [facility] [place], [place] [address] Clarice Adam M.D. [id number] HbA1c (Bld) [Mass fraction]o n 09-25-2024 Average glucose Estimated from glycated hemoglobin (Bld) [Mass/Vol] 128 mg/dL High 74 - 114 mg/dL [facility] Interpretation and review of laboratory results Abnormal [facility] Normal: 4.2% - 5.6% Increased risk for diabetes: 5.7% - 6.4% Diabetes: >= 6.5% Pediatrics: No established reference range Estimated average glucose: 74-114 mg/dL [facility] Hemoglobin A1con 09-25-2024 HbA1c (Bld) [Mass fraction] 6.1 % High 4.2 - 5.6 % [facility] INR Coag (PPP) [Relative randi e]on 09-25-2024 Interpretation and review of laboratory results Normal [facility] PT Coag (PPP) [Time] 13.6 s [facility] During the induction phase of oral anticoagulation, the INR may not reflect the anticoagulation status of the patient. Therapeutic ranges for INR's are: Most clinical situations: INR 2.0-3.0 Mechanical Prosthetic Valve: INR 2.5-3.5 Critical: INR >5.0 [facility] MAGNESIUM LEVELon 09-25-2024 Magnesium [Mass/Vol] 1.7 mg/dL Normal 1.6-2.4 [facility] Comment on above: Performed By: #### 4 [id number] #### LAB [address] [place], [place] [address] Clarice Adam M.D. [id number] Magnesiumon 09-25-2024 Magnesium [Mass/Vol] 1.7 mg/dL 1.6 - 2 .4 mg/dL [facility] No Panel Informationon 09-25 Interpretation and review of laboratory results Normal [facility] PHOSPHORUSon 09-25-2024 Phosphate [Mass/Vol] 4.2 mg/dL Normal 2.7-4.5 [facility] Comment on above: Performed By: #### 4 6299 #### LAB [address] [place] [address] Clarice Adam M.D. [id number] PT/INRon 09-25-2024 INR Coag (PPP) [Relative time] 1 {INR} 0.8 - 1.1 [facility] INR Coag (PPP) [Relative time] 1.0 {INR} Normal 0.8-1.1 [facility] Comment on above: Order Comment: Armond doan the induction phase of oral anticoagulation, the INR may not reflect the anticoagulation status of the patient. Therapeutic ranges for INR's are: Most clinical situations: INR 2.0-3.0 Mechanical Prosthetic Valve: INR 2.5-3.5 Critical: INR >5.0 Performed By: #### 4 6391 #### LAB [address] [place], [place] [address] Clarice Adam M.D. [id number] PT Coag (PPP) [Time] 13.6 s Normal 11.8-14.3 [facility] Comment on above: Order Comment: Armond doan the induction phase of oral anticoagulation, the INR may not reflect the anticoagulation status of the patient. Therapeutic ranges for INR's are: Most clinical situations: INR 2.0-3.0 Mechanical Prosthetic Valve: INR 2.5-3.5 Critical: INR >5.0 Performed By: #### 4 6391 #### [facility] [address] [place] [address] Clarice Adam M.D. [id number] Phosphoruson 09-25-2024 Phosphate [Mass/Vol] 4.2 mg/dL 2.7 - 4 .5 mg/dL [facility] TSH DL <= 0.005 mIU/L Qnon 0 09-25-2024 Interpretation and review of laboratory results Normal [facility] TSH Qn 3.11 m[IU]/L [facility] TSH WITH REFLEX FREE T4on TSH Qn 3.11 m[IU]/L Normal 0.27-4.20 [facility] Comment on above: Performed By: #### 4 6612 #### [facility] [address] [place], [place] [address] Clarice Adam M.D. [id number] ALCOHOL, MEDICALon 5 ALCOHOL MEDICAL 17.4 mg/dL High <10.0 [facility] Comment on above: Performed By: #### 4 [id number] #### [facility] [address] [place], [place] [address] Clarice Adam M.D. [id number] Alcohol, Medicalon Ethanol [Mass/Vol] 17.4 mg/dL High NINF - 10.0 mg/dL [facility] BASIC METABOLIC PANELon 09-13 Anion gap [Moles/Vol] 17 mmol/L Normal 10-20 [facility] Comment on above: Order Comment: [facility] has implemented the eGFR calculation approach that does not have a coefficient for race that conforms to the NKF-ASN Task Force Recommendations. Performed By: #### 4 6124 #### LAB [address] [place] [address] Clarice Adam M.D. [id number] Calcium [Mass/Vol] 8.9 mg/dL Normal 8.4-10.2 [facility] Comment on above: Order Comment: [facility] has implemented the eGFR calculation approach that does not have a coefficient for race that conforms to the NKF-ASN Task Force Recommendations. Performed By: #### 4 6124 #### LAB [address] [place], [place] [address] Clarice Adam M.D. [id number] Chloride [Moles/Vol] 106 mmol/L Normal 98-108 [facility] Comment on above: Order Comment: [facility] has implemented the eGFR calculation approach that does not have a coefficient for race that conforms to the NKF-ASN Task Force Recommendations. Performed By: #### 4 6124 #### LAB [address] [place] [address] Clarice Adam M.D. [id number] Creatinine [Mass/Vol] 0.63 mg/dL Normal 0.40-1.10 [facility] Comment on above: Order Comment: [facility] has implemented the eGFR calculation approach that does not have a coefficient for race that conforms to the NKF-ASN Task Force Recommendations. Performed By: #### 4 6124 #### LAB [address] [place] [address] Clarice Adam M.D. [id number] EGFR 127 mL/min/1.73 m2 Normal >=60 [facility] Comment on above: Order Comment: [facility] has implemented the eGFR calculation approach that does not have a coefficient for race that conforms to the NKF-ASN Task Force Recommendations. Result Comment: Mulu mated GFR was calculated using the 2020 CKD-EPI creatinine equation. Performed By: #### 4 6124 #### LAB [address] [place] [address] Clarice Adam M.D. [id number] Glucose [Mass/Vol] 94 mg/dL Normal 65-99 [facility] Comment on above: Order Comment: [facility] has implemented the eGFR calculation approach that does not have a coefficient for race that conforms to the NKF-ASN Task Force Recommendations. Performed By: #### 4 6124 #### LAB [address] [place] [address] Clarice Adam M.D. [id number] HCO3 (Bld) [Moles/Vol] 24 mmol/L Normal 21-32 [facility] Comment on above: Order Comment: [facility] has implemented the eGFR calculation approach that does not have a coefficient for race that conforms to the NKF-ASN Task Force Recommendations. Performed By: #### 4 6124 #### LAB [address] [place] [address] Clarice Adam M.D. [id number] Potassium [Moles/Vol] 3.9 mmol/L Normal 3.5-5.1 [facility] Comment on above: Order Comment: [facility] has implemented the eGFR calculation approach that does not have a coefficient for race that conforms to the NKF-ASN Task Force Recommendations. Performed By: #### 4 6124 #### LAB [address] [place] [address] Clarice Adam M.D. [id number] Sodium [Moles/Vol] 143 mmol/L Normal 135-145 [facility] Comment on above: Order Comment: [facility] has implemented the eGFR calculation approach that does not have a coefficient for race that conforms to the NKF-ASN Task Force Recommendations. Performed By: #### 4 6124 #### LAB [address] [place] [address] Clarice Adam M.D. [id number] Urea nitrogen [Mass/Vol] 12 mg/dL Normal 8-25 [facility] Comment on above: Order Comment: [facility] has implemented the eGFR calculation approach that does not have a coefficient for race that conforms to the NKF-ASN Task Force Recommendations. Performed By: #### 4 6124 #### LAB [address] [place] [address] Clarice Adam M.D. [id number] Urea nitrogen/Creatinine [Mass ratio] 19.0 mg/mg Normal 10.0-20.0 [facility] Comment on above: Order Comment: [facility] has implemented the eGFR calculation approach that does not have a coefficient for race that conforms to the NKF-ASN Task Force Recommendations. Performed By: #### 4 6124 #### LAB [address] [place] [address] Clarice Adam M.D. [id number] Basic metabolic 2000 panelon 09-24-2024 Anion gap [Moles/Vol] 17 mmol/L 10 - 2 0 mmol/L [facility] Calcium [Mass/Vol] 8.9 mg/dL 8.4 - 10. 2 mg/dL [facility] Chloride [Moles/Vol] 106 mmol/L 98 - 10 8 mmol/L [facility] Creatinine [Mass/Vol] 0.63 mg/dL 0.40 - 1.10 mg/dL [facility] GFR/1.73 sq M.predicted CKD-EPI (S/P/Bld) [Vol rate/Area] 127 - PINF [facility] Comment on above: Estimated GFR was ca lculated using the 2020 CKD-EPI creatinine equation. Glucose [Mass/Vol] 94 mg/dL 65 - 99 mg/dL [facility] HCO3 [Moles/Vol] 24 mmol/L 21 - 32 mmol/L [facility] Potassium [Moles/Vol] 3.9 mmol/L 3.5 - 5.1 mmol/L [facility] Sodium [Moles/Vol] 143 mmol/L 135 - 145 mmol/L [facility] Urea nitrogen [Mass/Vol] 12 mg/dL 8 - 25 mg/dL [facility] Urea nitrogen/Creatinine [Mass ratio] 19 mg/mg 10.0 - 20.0 [facility] has implemented the eGFR calculation approach that does not have a coefficient for race that conforms to the NKF-ASN Task Force Recommendations. [facility] CBC Auto Differentialon 09-13 Basophils (Bld) [#/Vol] 0.05 10*3/uL [facility] Basophils/100 WBC (Bld) 0.4 % [facility] Eosinophils (Bld) [#/Vol] 0.21 10*3/uL [facility] Eosinophils/100 WBC (Bld) 1.9 % [facility] Erythrocyte distribution width (RBC) [Entitic vol] 12.7 % 11.6 - 14.8 % [facility] Hematocrit (Bld) [Volume fraction] 36.3 % 36.0 - 46.0 % [facility] Hemoglobin (Bld) [Mass/Vol] 11.8 g/dL Low 12.0 - 16.0 g/dL [facility] Immature granulocytes (Bld) [#/Vol] 0.04 10*3/uL [facility] Immature granulocytes/100 WBC (Bld) 0.4 % [facility] Comment on above: The IG parameter is the percentage of metamyelocytes, myelocytes and promyelocytes. An immature granulocyte count (IG) of 1% or more suggests the possibility of infection, an IG count of 3% is very likely related to an infection. Interpretation and review of laboratory results Abnormal [facility] Lymphocytes (Bld) [#/Vol] 4.69 10*3/uL High [facility] Lymphocytes/100 WBC (Bld) 42.2 % [facility] MCH (RBC) [Entitic mass] 31.1 pg 26. 0 - 34.0 pg [facility] MCHC (RBC) [Mass/Vol] 32.5 g/dL 31.0 - 37.0 g/dL [facility] MCV (RBC) [Entitic vol] 95.5 fL 80.0 - 100.0 fL [facility] Monocytes (Bld) [#/Vol] 0.72 10*3/uL [facility] Monocytes/100 WBC (Bld) 6.5 % [facility] Neutrophils (Bld) [#/Vol] 5.41 10*3/uL [facility] Neutrophils/100 WBC (Bld) 48.6 % [facility] Nucleated RBC (Bld) [#/Vol] 0 10*3/uL [facility] Nucleated RBC/100 WBC (Bld) [Ratio] 0 % [facility] Platelet mean volume (Bld) [Entitic vol] 10 fL 9.4 - 12.4 fL [facility] Platelets (Bld) [#/Vol] 315 10*3/uL [facility] RBC (Bld) [#/Vol] 3.8 10*6/uL [facility] WBC (Bld) [#/Vol] 11.12 10*3/uL [facility] CBC WITH AUTO DIFFERENTIALon 09-24-2024 AUTO NRBC 0.0 % Normal [facility] Comment on above: Performed By: #### 4 [id number] #### LAB [address] [place] [address] Clarice Adam M.D. [id number] AUTO NRBC ABS COUNT 0.00 K/mcL Normal 0.00-0.00 [facility] Comment on above: Performed By: #### 4 [id number] #### LAB [address] [place] [address] Clarice Adam M.D. [id number] BASOPHILS ABSOLUTE COUNT 0.05 K/mcL Normal 0.00-0.30 [facility] Comment on above: Performed By: #### 4 5827 #### LAB [address] [place] [address] Clarice Adam M.D. [id number] Basophils/100 WBC (Bld) 0.4 % Normal [facility] Comment on above: Performed By: #### 4 5827 #### LAB [address] [place] [address] Clarice Adam M.D. [id number] Eosinophils (Bld) [#/Vol] 0.21 10*3/uL Normal 0.00-0.5 0 [facility] Comment on above: Performed By: #### 4 [id number] #### LAB [address] [place] [address] Clarice Adam M.D. [id number] Eosinophils/100 WBC (Bld) 1.9 % Normal [facility] Comment on above: Performed By: #### 4 5827 #### LAB [address] [place] [address] Clarice Adam M.D. [id number] Erythrocyte distribution width (RBC) [Ratio] 12.7 % Normal 11.6-14.8 [facility] Comment on above: Performed By: #### 4 5827 #### LAB [address] [place] [address] Clarice Adam M.D. [id number] Hematocrit (Bld) [Volume fraction] 36.3 % Normal 36.0-46.0 [facility] Comment on above: Performed By: #### 4 5827 #### LAB [address] [place] [address] Clarice Adam M.D. [id number] Hemoglobin (Bld) [Mass/Vol] 11.8 g/dL Low 12.0-16.0 [facility] Comment on above: Performed By: #### 4 5827 #### LAB [address] [place] [address] Clarice Adam M.D. [id number] IG ABSOLUTE 0.04 K/mcL Normal 0.00-0.30 [facility] Comment on above: Performed By: #### 4 5827 #### LAB [address] [place] [address] Clarice Adam M.D. [id number] IG PERCENT 0.40 % Normal [facility] Comment on above: Result Comment: The IG parameter is the percentage of metamyelocytes, myelocytes and promyelocytes. An immature granulocyte count (IG) of 1% or more suggests the possibility of infection, an IG count of 3% is very likely related to an infection. Performed By: #### 4 [id number] #### LAB [address] [place] [address] Clarice Adam M.D. [id number] Lymphocytes (Bld) [#/Vol] 4.69 10*3/uL High 0.90-4.0 0 [facility] Comment on above: Performed By: #### 4 5827 #### LAB [address] [place] [address] Clarice Adam M.D. [id number] Lymphocytes/100 WBC (Bld) 42.2 % Normal [facility] Comment on above: Performed By: #### 4 5827 #### LAB [address] [place] [address] Clarice Adam M.D. [id number] MCH (RBC) [Entitic mass] 31.1 pg Normal 26.0-34.0 [facility] Comment on above: Performed By: #### 4 5827 #### LAB [address] [place] [address] Clarice Adam M.D. [id number] MCV (RBC) [Entitic vol] 95.5 fL Normal 80.0-100.0 [facility] Comment on above: Performed By: #### 4 5827 #### LAB [address] [place] [address] Clarice Adam M.D. [id number] MEAN CORPUSCULAR HEMOGLOBIN CONC 32.5 g/dL Normal 31.0-37.0 [facility] Comment on above: Performed By: #### 4 5827 #### LAB [address] [place] [address] Clarice Adam M.D. [id number] Monocytes (Bld) [#/Vol] 0.72 10*3/uL Normal 0.30-0.90 [facility] Comment on above: Performed By: #### 4 5827 #### LAB [address] [place] [address] Clarice Adam M.D. [id number] Monocytes/100 WBC (Bld) 6.5 % Normal [facility] Comment on above: Performed By: #### 4 5827 #### LAB [address] [place] [address] Clarice Adam M.D. [id number] NEUTROPHILS ABSOLUTE COUNT 5.41 K/mcL Normal 1.70-7.00 [facility] Comment on above: Performed By: #### 4 5827 #### LAB [address] [place] [address] Clarice Adam M.D. [id number] Neutrophils/100 WBC (Bld) 48.6 % Normal [facility] Comment on above: Performed By: #### 4 5827 #### LAB [address] [place] [address] Clarice Adam M.D. [id number] Platelet mean volume (Bld) [Entitic vol] 10.0 fL Normal 9.4-12.4 [facility] Comment on above: Performed By: #### 4 5827 #### LAB [address] [place], [place] [address] Clarice Adma M.D. [id number] Platelets (Bld) [#/Vol] 315 10*3/uL Normal 150-400 [facility] Comment on above: Performed By: #### 4 5827 #### LAB [address] [place], [place] [address] Clarice Adam M.D. [id number] RBC (Bld) [#/Vol] 3.80 10*6/uL Low 4.00-5.20 [facility] Comment on above: Performed By: #### 4 5827 #### LAB [address] [place], [place] [address] Clarice Adam M.D. [id number] WBC (Bld) [#/Vol] 11.12 10*3/uL High 4.50-11.00 [facility] Comment on above: Performed By: #### 4 5827 #### LAB [address] [place] [address] Clarice Adam M.D. [id number] ED Prov Noteon 09-24-2024 ED Prov Note Chief Complaint: Alcohol Problem HPI: This is a 23-year-old female with past medical history of alcohol use disorder presenting to the ED for possible withdrawal. Patient states she drank 1 L of vodka today. She endorses that she has had withdrawals [...] Oral (!) 118 18 97 % 5' 1 111.1 kg (245 lb) Physical Exam Vitals [...] limits BASIC METABOLIC PANEL - Normal Narrative: [facility] has implemented the eGFR [...] Procedure Abnormality Status --------- ------ CBC Auto Differential[[id number] ] Abnormal Final result Please view results for these tests on the individual orders. DRUGS OF ABUSE SCREEN, URINE No orders to display Procedures: Procedures MDM: MDM Number of Diagnoses or Management Options Alcohol withdrawal (HCC) Diagnosis management comments: This is a 23-year-old female with history of alcohol use disorder presenting to the ED for alcohol withdrawal. Patient presents with signs symptoms consistent with [...] triggered control. Patient was given thiamine and f (more content not included)... Normal [facility] Ethanol [Mass/Vol]on 025 Interpretation and review of laboratory results Abnormal [facility] HCG Qnon 09-24-2024 Beta HCG ( test) Ql (U) Males and non females: <5 mIU/mL Females during : 3-4 weeks 9-130 mIU/mL 4-5 weeks 75-2600 mIU/mL 5-6 weeks 850-20,800 mIU/mL 6-7 weeks 4000-100,200 mIU/mL 7-12 weeks 11,500-289,000 mIU/mL 12-16 weeks 18,300-137,000 mIU/mL 16-29 weeks 1,400-53,000 mIU/mL 29-41 weeks 940-60,000 mIU/mL [facility] HCG, BLOOD, QUANTITATIVEon 0 09-24-2024 HCG, QUANTITATIVE < Normal 0-5 [facility] Comment on above: Order Comment: Males and non females: <5 mIU/mL Females during : 3-4 weeks 9-130 mIU/mL 4-5 weeks 75-2600 mIU/mL 5-6 weeks 850-20,800 mIU/mL 6-7 weeks 4000-100,200 mIU/mL 7-12 weeks 11,500-289,000 mIU/mL 12-16 weeks 18,300-137,000 mIU/mL 16-29 weeks 1,400-53,000 mIU/mL 29-41 weeks 940-60,000 mIU/mL Performed By: #### 4 5827 #### LAB [address] [place], [place] [id number] Clarice Adam M.D. [id number] HEPATIC FUNCTION PANELon Albumin [Mass/Vol] 4.2 g/dL Normal 3.2-5.2 [facility] Comment on above: Performed By: #### 4 5827 #### [facility] [address] [place], [place] [id number] Clarice Adam M.D. [id number] ALP [Catalytic activity/Vol] 75 U/L Normal 40-140 [facility] Comment on above: Performed By: #### 4 5827 #### [facility] [address] [place] [address] Clarice Adam M.D. [id number] ALT [Catalytic activity/Vol] 10 U/L Normal 0-35 U/L [facility] Comment on above: Performed By: #### 4 5827 #### LAB [address] [place] [address] Clarice Adam M.D. [id number] AST [Catalytic activity/Vol] 18 U/L Normal 0-35 U/L [facility] Comment on above: Performed By: #### 4 5827 #### LAB [address] [place], [place] [address] Clarice Adam M.D. [id number] Bilirubin [Mass/Vol] 0.4 mg/dL Normal 0.0-1.3 [facility] Comment on above: Performed By: #### 4 5827 #### LAB [address] [place] [address] Clarice Adam M.D. [id number] Bilirubin.indirect [Mass/Vol] 0.2 mg/dL Normal 0.0-0.4 [facility] Comment on above: Performed By: #### 4 5827 #### LAB [address] [place] [address] Clarice Adam M.D. [id number] Protein [Mass/Vol] 7.4 g/dL Normal 6.0-8.0 [facility] Comment on above: Performed By: #### 4 5827 #### LAB [address] [place] [address] Clarice Adam M.D. [id number] Hepatic function 2000 panelo n 09-24-2024 Albumin [Mass/Vol] 4.2 g/dL 3.2 - 5.2 g/dL [facility] ALP [Catalytic activity/Vol] 75 U/L 40 - 140 U/L [facility] ALT [Catalytic activity/Vol] 10 U/L 0 - 35 U/L [facility] AST [Catalytic activity/Vol] 18 U/L 0 - 35 U/L [facility] Bilirubin [Mass/Vol] 0.4 mg/dL 0.0 - 1 .3 mg/dL [facility] Bilirubin.conjugated [Mass/Vol] 0.2 mg/dL 0.0 - 0.4 mg/dL [facility] Protein [Mass/Vol] 7.4 g/dL 6.0 - 8.0 g/dL [facility] No Panel Informationon 09-24 Interpretation and review of laboratory results Normal [facility] hCG, Blood, QUANTITATIVEon 0 09-24-2024 HCG Qn [facility] BETA HCG, QUAL, BLOODon 08-13 HCG (Qual) Serum Negative Normal Negative [facility] Comment on above: Performed By: #### L [id number] #### [facility] (DEFAULT) [address] [place] [address] 24450 CBC AND ELECTRONIC DIFFon Basophils (Bld) [#/Vol] 0.04 10*3/uL Normal 0.00-0.15 [facility] Comment on above: Performed By: #### L [id number] #### [facility] (DEFAULT) [address] [place] [address] 84105 Basophils/100 WBC (Bld) 0.4 % Normal O [facility] Comment on above: Performed By: #### L [id number] #### [facility] (DEFAULT) [address] [place] [address] 43605 DIFF STATUS Electronic Differential Normal [facility] Comment on above: Performed By: #### L [id number] #### [facility] (DEFAULT) [address] [place] [address] 13953 Eosinophils (Bld) [#/Vol] 0.41 10*3/uL Normal 0.00-0.4 2 [facility] Comment on above: Performed By: #### L [id number] #### [facility] (DEFAULT) [address] [place] [address] 34198 Eosinophils/100 WBC (Bld) 4.4 % Normal [facility] Comment on above: Performed By: #### L [id number] #### [facility] (DEFAULT) [address] [place] [address] 22000 Hematocrit (Bld) [Volume fraction] 40.7 % Normal 34.9-44.3 [facility] Comment on above: Performed By: #### L [id number] #### [facility] (DEFAULT) [address] [place] [address] 44196 Hemoglobin (Bld) [Mass/Vol] 13.2 g/dL Normal 11.4-15.2 [facility] Comment on above: Performed By: #### L [id number] #### [facility] (DEFAULT) [address] [place] [address] 23324 Immature Grans % 0.2 % Normal [facility] Comment on above: Performed By: #### L [id number] #### [facility] (DEFAULT) [address] [place] [address] 06803 Immature Grans Absolute < Normal <=0.08 O [facility] Comment on above: Performed By: #### L [id number] #### [facility] (DEFAULT) [address] [place] [address] 51812 Lymphocytes (Bld) [#/Vol] 2.87 10*3/uL Normal 1.16-3.5 1 [facility] Comment on above: Performed By: #### L [id number] #### [facility] (DEFAULT) [address] [place] [address] 28072 Lymphocytes/100 WBC (Bld) 30.7 % Normal [facility] Comment on above: Performed By: #### L [id number] #### [facility] (DEFAULT) [address] [place] [address] 78436 MCV (RBC) [Entitic vol] 95.5 fL Normal 79.6-97.7 O [facility] Comment on above: Performed By: #### L [id number] #### [facility] (DEFAULT) [address] [place] [address] 44012 Mean Cell Hgb 31.0 pg Normal 25.9-33.9 [facility] Comment on above: Performed By: #### L [id number] #### [facility] (DEFAULT) [address] [place] [address] 03617 Mean Cell Hgb Conc 32.4 g/dL Normal 31.4-35.9 [facility] Comment on above: Performed By: #### L [id number] #### [facility] (DEFAULT) [address] [place] [address] 21307 Monocytes (Bld) [#/Vol] 0.65 10*3/uL Normal 0.22-0.87 [facility] Comment on above: Performed By: #### L [id number] #### [facility] (DEFAULT) [address] [address] Monocytes/100 WBC (Bld) 7.0 % Normal O [facility] Comment on above: Performed By: #### L [id number] #### [facility] (DEFAULT) [address] [place] [address] 71159 Nucleated RBC 0.0 /100 WBC Normal <=0.2 [facility] Comment on above: Performed By: #### L [id number] #### [facility] (DEFAULT) [address] [address] Platelet mean volume (Bld) [Entitic vol] 10.6 fL Normal 8.5-12.2 [facility] Comment on above: Performed By: #### L [id number] #### [facility] (DEFAULT) [address] [place] [address] 88904 Platelets (Bld) [#/Vol] 337 10*3/uL Normal 150-393 [facility] Comment on above: Performed By: #### L [id number] #### [facility] (DEFAULT) [address] [address] RBC (Bld) [#/Vol] 4.26 10*6/uL Normal 3.91-5.04 [facility] Comment on above: Performed By: #### L [id number] #### [facility] (DEFAULT) [address] [address] RBC Distribution 12.8 % Normal 10.8-14.9 [facility] Comment on above: Performed By: #### L [id number] #### [facility] (DEFAULT) [address] [address] Segs + Bands Auto 57.3 % Normal [facility] Comment on above: Performed By: #### L [id number] #### [facility] (DEFAULT) [address] [place] [address] 03856 Segs + Bands,Absolute Auto 5.36 K/uL Normal 1.64-7.28 [facility] Comment on above: Performed By: #### L [id number] #### [facility] (DEFAULT) [address] [place] [address] 53912 WBC (Bld) [#/Vol] 9.35 10*3/uL Normal 3.99-11.19 [facility] Comment on above: Performed By: #### L [id number] #### [facility] (DEFAULT) [address] [place] [address] 63075 CHEM 7 (LYTES,BUN,CREA,GLUC) on 08-23-2024 Anion gap [Moles/Vol] 13 mmol/L Normal 7-17 [facility] Comment on above: Performed By: #### L [id number] #### [facility] (DEFAULT) [address] [place] [address] 97840 Chloride [Moles/Vol] 105 mmol/L Normal 98-108 [facility] Comment on above: Performed By: #### L [id number] #### [facility] (DEFAULT) [address] [address] CO2 [Moles/Vol] 23 mmol/L Normal 21-31 [facility] Comment on above: Performed By: #### L [id number] #### [facility] (DEFAULT) [address] [place] [address] 72832 Creatinine [Mass/Vol] 0.59 mg/dL Normal 0.50-1.20 [facility] Comment on above: Performed By: #### L [id number] #### [facility] (DEFAULT) [address] [address] eGFR, CKD-EPI, Female > Normal >=60 [facility] Comment on above: Result Comment: Repo rted eGFR is based on the CKD-EPI 2020 equation using creatinine, age, and sex. Performed By: #### L [id number] #### [facility] (DEFAULT) [address] [place] [address] 05454 Glucose [Mass/Vol] 94 mg/dL Normal Nonfastin g : 70-179 mg/dL; Fastin-99 [facility] Comment on above: Performed By: #### L [id number] #### [facility] (DEFAULT) [address] [place] [address] 92265 Osmolality [Osmolality] 287 mosm/kg Normal 278-305 [facility] Comment on above: Performed By: #### L [id number] #### [facility] (DEFAULT) [address] [place] [address] 38196 Potassium [Moles/Vol] 4.1 mmol/L Normal 3.5-5.0 [facility] Comment on above: Performed By: #### L [id number] #### [facility] (DEFAULT) [address] [place] [address] 13169 Sodium [Moles/Vol] 137 mmol/L Normal 135-145 [facility] Comment on above: Performed By: #### L [id number] #### [facility] (DEFAULT) [address] [place] [address] 55462 Urea nitrogen [Mass/Vol] 14 mg/dL Normal 7-25 [facility] Comment on above: Performed By: #### L [id number] #### [facility] (DEFAULT) [address] [place] [address] 66554 Urea nitrogen/Creatinine [Mass ratio] 24 mg/mg Normal [facility] Comment on above: Performed By: #### L [id number] #### [facility] (DEFAULT) [address] [place] [address] 76509 MAGNESIUMon 08-23-2024 Magnesium [Mass/Vol] 1.8 mg/dL Normal 1.6-2.6 [facility] Comment on above: Performed By: #### L [id number] #### [facility] (DEFAULT) [address] [place] [address] 31319 PHOSPHATE, INORGANICon 08-23 Phosphorous 4.2 mg/dL Normal 2.2-4.6 [facility] Comment on above: Performed By: #### L [id number] #### [facility] (DEFAULT) [address] [place] [address] EXTRA MICROon 08-13-2024 [facility] ALCOHOL (ETHANOL),BLOODOrder ed By: Denys Irving on 08-12-2024 Ethanol Ql (Bld) mg/dL NINF - 10 mg/dL [facility] Interpretation and review of laboratory results Normal [facility] ALCOHOL (ETHANOL),BLOODon Alcohol, Serum <10 Normal <10 [facility] Comment on above: Performed By: #### L [id number] #### [facility] (DEFAULT) [address] [place] [address] Acute hepatitis 2000 panel ( S)Ordered By: Abbey Harden on 08-12-2024 HAV IgM IA Ql Negative Negative [facility] HBV core IgG+IgM Ql (S) Negative Negative [facility] HBV core IgM Ql (S) Negative Negative [facility] HBV surface Ag Ql (S) Negative Negative [facility] HCV Ab Ql (S) Negative Negative [facility] Interpretation and review of laboratory results Normal [facility] BETA HCG, QUAL, BLOODon 07-16 HCG (Qual) Serum Negative Normal Negative [facility] Comment on above: Performed By: #### H EP1B, BHCG #### [facility] (DEFAULT) [address] [place] [address] CBC AND ELECTRONIC DIFFon Basophils (Bld) [#/Vol] K/uL 0.00 - 0.15 K/uL [facility] Basophils/100 WBC (Bld) 0.3 % [facility] Differential cell count method Nom (Bld) Electronic Differential [facility] Eosinophils (Bld) [#/Vol] 0.22 10*3/uL 0. 00 - 0.42 K/uL [facility] Eosinophils/100 WBC (Bld) 2.8 % [facility] Erythrocyte distribution width (RBC) [Ratio] 12.9 % 10.8 - 14.9 % [facility] Hematocrit (Bld) [Volume fraction] 40.3 % 34.9 - 44.3 % [facility] Hemoglobin (Bld) [Mass/Vol] 13.1 g/dL 11.4 - 15.2 g/dL [facility] Immature granulocytes (Bld) [#/Vol] K/uL NINF - 0.08 K/uL [facility] Immature granulocytes/100 WBC (Bld) 0.3 % [facility] Lymphocytes (Bld) [#/Vol] 3.13 10*3/uL 1. 16 - 3.51 K/uL [facility] Lymphocytes/100 WBC (Bld) 39.9 % [facility] MCH (RBC) [Entitic mass] 31.3 pg 25. 9 - 33.9 pg [facility] MCHC (RBC) [Mass/Vol] 32.5 g/dL 31.4 - 35.9 g/dL [facility] MCV (RBC) [Entitic vol] 96.2 fL 79.6 - 97.7 fL [facility] Monocytes (Bld) [#/Vol] 0.62 10*3/uL 0.22 - 0.87 K/uL [facility] Monocytes/100 WBC (Bld) 7.9 % [facility] Neutrophils (Bld) [#/Vol] 3.83 10*3/uL 1. 64 - 7.28 K/uL [facility] Nucleated RBC/100 WBC (Bld) [Ratio] 0 % [facility] Platelet mean volume (Bld) [Entitic vol] [facility] Comment on above: Not measured Platelets (Bld) [#/Vol] 292 10*3/uL 150 - 393 K/uL [facility] Comment on above: This is an appended report. These results have been appended to a previously preliminary verified report. RBC (Bld) [#/Vol] 4.19 10*6/uL [facility] Segmented neutrophils/100 WBC (Bld) 48.8 % [facility] WBC (Bld) [#/Vol] 7.84 10*3/uL 3.99 - 11.19 K/uL [facility] Abs Baso Auto < Normal 0.00-0.15 [facility] Comment on above: Performed By: #### L [id number] #### [facility] (DEFAULT) [address] [address] Basophils/100 WBC (Bld) 0.3 % Normal O [facility] Comment on above: Performed By: #### L [id number] #### [facility] (DEFAULT) [address] [address] DIFF STATUS Electronic Differential Normal [facility] Comment on above: Performed By: #### L [id number] #### [facility] (DEFAULT) [address] [address] Eosinophils (Bld) [#/Vol] 0.22 10*3/uL Normal 0.00-0.4 2 [facility] Comment on above: Performed By: #### L [id number] #### [facility] (DEFAULT) [address] [address] Eosinophils/100 WBC (Bld) 2.8 % Normal [facility] Comment on above: Performed By: #### L [id number] #### [facility] (DEFAULT) [address] [address] Hematocrit (Bld) [Volume fraction] 40.3 % Normal 34.9-44.3 [facility] Comment on above: Performed By: #### L [id number] #### [facility] (DEFAULT) [address] [address] Hemoglobin (Bld) [Mass/Vol] 13.1 g/dL Normal 11.4-15.2 [facility] Comment on above: Performed By: #### L [id number] #### [facility] (DEFAULT) [address] [address] Immature Grans % 0.3 % Normal [facility] Comment on above: Performed By: #### L [id number] #### [facility] (DEFAULT) [address] [address] Immature Grans Absolute < Normal <=0.08 O [facility] Comment on above: Performed By: #### L [id number] #### [facility] (DEFAULT) [address] [address] Lymphocytes (Bld) [#/Vol] 3.13 10*3/uL Normal 1.16-3.5 1 [facility] Comment on above: Performed By: #### L [id number] #### [facility] (DEFAULT) [address] [address] Lymphocytes/100 WBC (Bld) 39.9 % Normal [facility] Comment on above: Performed By: #### L [id number] #### [facility] (DEFAULT) [address] [address] MCV (RBC) [Entitic vol] 96.2 fL Normal 79.6-97.7 O [facility] Comment on above: Performed By: #### L [id number] #### [facility] (DEFAULT) [address] [address] Mean Cell Hgb 31.3 pg Normal 25.9-33.9 [facility] Comment on above: Performed By: #### L [id number] #### [facility] (DEFAULT) [address] [address] Mean Cell Hgb Conc 32.5 g/dL Normal 31.4-35.9 [facility] Comment on above: Performed By: #### L [id number] #### [facility] (DEFAULT) [address] [address] Mean Platelet Volume Normal [facility] Comment on above: Result Comment: Not measured Performed By: #### L [id number] #### [facility] (DEFAULT) [address] [address] Monocytes (Bld) [#/Vol] 0.62 10*3/uL Normal 0.22-0.87 [facility] Comment on above: Performed By: #### L [id number] #### [facility] (DEFAULT) [address] [address] Monocytes/100 WBC (Bld) 7.9 % Normal O [facility] Comment on above: Performed By: #### L [id number] #### [facility] (DEFAULT) [address] [address] Nucleated RBC 0.0 /100 WBC Normal <=0.2 [facility] Comment on above: Performed By: #### L [id number] #### [facility] (DEFAULT) [address] [address] Platelets (Bld) [#/Vol] 292 10*3/uL Normal 150-393 [facility] Comment on above: Result Comment: This is an appended report. These results have been appended to a previously preliminary verified report. Performed By: #### L [id number] #### [facility] (DEFAULT) [address] [address] RBC (Bld) [#/Vol] 4.19 10*6/uL Normal 3.91-5.04 [facility] Comment on above: Performed By: #### L [id number] #### [facility] (DEFAULT) [address] [address] RBC Distribution 12.9 % Normal 10.8-14.9 [facility] Comment on above: Performed By: #### L [id number] #### [facility] (DEFAULT) [address] [address] Segs + Bands Auto 48.8 % Normal [facility] Comment on above: Performed By: #### L [id number] #### [facility] (DEFAULT) [address] [place] [address] Segs + Bands,Absolute Auto 3.83 K/uL Normal 1.64-7.28 [facility] Comment on above: Performed By: #### L [id number] #### [facility] (DEFAULT) [address] [place] [address] WBC (Bld) [#/Vol] 7.84 10*3/uL Normal 3.99-11.19 [facility] Comment on above: Performed By: #### L [id number] #### [facility] (DEFAULT) [address] [place] [address] 48307 CHM 7 - EDon 08-12-2024 Anion gap [Moles/Vol] 10 mmol/L 7 - 17 mmol/L [facility] Chloride [Moles/Vol] 106 mmol/L 98 - 10 8 mmol/L [facility] CO2 [Moles/Vol] 25 mmol/L 21 - 31 mmol/L [facility] Creatinine [Mass/Vol] 0.54 mg/dL 0.50 - 1.20 mg/dL [facility] eGFR, CKD-EPI, Female - PINF [facility] Comment on above: Reported eGFR is bas ed on the CKD-EPI 2020 equation using creatinine, age, and sex. Glucose [Mass/Vol] 88 mg/dL 70 - 179 mg/dL [facility] Osmolality Calc [Osmolality] 285 [facility] Potassium [Moles/Vol] 4.3 mmol/L 3.5 - 5.0 mmol/L [facility] Sodium [Moles/Vol] 137 mmol/L 135 - 145 mmol/L [facility] Urea nitrogen [Mass/Vol] 6 mg/dL Low 7 - 25 mg/dL [facility] Urea nitrogen/Creatinine [Mass ratio] 11 mg/mg [facility] Anion gap [Moles/Vol] 10 mmol/L Normal 7-17 [facility] Comment on above: Performed By: #### L [id number] #### [facility] (DEFAULT) [address] [place] [address] 22162 Chloride [Moles/Vol] 106 mmol/L Normal 98-108 [facility] Comment on above: Performed By: #### L [id number] #### [facility] (DEFAULT) [address] [place] [address] 24880 CO2 [Moles/Vol] 25 mmol/L Normal 21-31 [facility] Comment on above: Performed By: #### L [id number] #### [facility] (DEFAULT) [address] [place] [address] 64449 Creatinine [Mass/Vol] 0.54 mg/dL Normal 0.50-1.20 [facility] Comment on above: Performed By: #### L [id number] #### [facility] (DEFAULT) [address] [place] [address] 18121 eGFR, CKD-EPI, Female > Normal >=60 [facility] Comment on above: Result Comment: Repo rted eGFR is based on the CKD-EPI 2020 equation using creatinine, age, and sex. Performed By: #### L [id number] #### [facility] (DEFAULT) [address] [place] [address] 32965 Glucose [Mass/Vol] 88 mg/dL Normal Nonfastin g : 70-179 mg/dL; Fastin-99 [facility] Comment on above: Performed By: #### L [id number] #### [facility] (DEFAULT) [address] [place] [address] 97994 Osmolality [Osmolality] 285 mosm/kg Normal 278-305 [facility] Comment on above: Performed By: #### L [id number] #### [facility] (DEFAULT) [address] [place] [address] 09047 Potassium [Moles/Vol] 4.3 mmol/L Normal 3.5-5.0 [facility] Comment on above: Performed By: #### L [id number] #### [facility] (DEFAULT) [address] [place] [address] Sodium [Moles/Vol] 137 mmol/L Normal 135-145 [facility] Comment on above: Performed By: #### L [id number] #### [facility] (DEFAULT) [address] [place] [address] Urea nitrogen [Mass/Vol] 6 mg/dL Low 7-25 [facility] Comment on above: Performed By: #### L [id number] #### [facility] (DEFAULT) [address] [place] [address] Urea nitrogen/Creatinine [Mass ratio] 11 mg/mg Normal [facility] Comment on above: Performed By: #### L [id number] #### [facility] (DEFAULT) [address] [place] [address] GOLD TOP TUBEon 08-12-2024 [facility] HCG ( test) QlOrder ed By: Wyatt Lopez on 08-12-2024 Beta HCG ( test) Ql Negative Negative [facility] Interpretation and review of laboratory results Normal [facility] HEPATIC FUNCTION PANELon Albumin [Mass/Vol] 4 g/dL 3.5 - 5.0 g/dL [facility] ALP [Catalytic activity/Vol] 59 U/L 32 - 126 U/L [facility] ALT [Catalytic activity/Vol] 8 U/L Low 9 - 48 U/L [facility] AST [Catalytic activity/Vol] 17 U/L 10 - 39 U/L [facility] Bilirubin [Mass/Vol] 0.8 mg/dL NINF - 1.5 mg/dL [facility] Bilirubin.direct [Mass/Vol] 0.1 mg/dL [facility] mg/dL [facility] Comment on above: Specimen hemolyzed. Direct bilirubin results may be falsely decreased. Interpret within the clinical context. Protein [Mass/Vol] 7.3 g/dL 6.4 - 8.3 g/dL [facility] Albumin [Mass/Vol] 4.0 g/dL Normal 3.5-5.0 [facility] Comment on above: Performed By: #### L [id number] #### [facility] (DEFAULT) [address] [address] ALP [Catalytic activity/Vol] 59 U/L Normal 32-126 [facility] Comment on above: Performed By: #### L [id number] #### [facility] (DEFAULT) [address] [address] ALT [Catalytic activity/Vol] 8 U/L Low 9-48 [facility] Comment on above: Performed By: #### L [id number] #### [facility] (DEFAULT) [address] [address] AST [Catalytic activity/Vol] 17 U/L Normal 10-39 [facility] Comment on above: Performed By: #### L [id number] #### [facility] (DEFAULT) [address] [address] Bilirubin [Mass/Vol] 0.8 mg/dL Normal <1.5 [facility] Comment on above: Performed By: #### L [id number] #### [facility] (DEFAULT) [address] [address] Bilirubin.indirect [Mass/Vol] 0.1 mg/dL Normal <0.3 [facility] Comment on above: Result Comment: Spec imen hemolyzed. Direct bilirubin results may be falsely decreased. Interpret within the clinical context. Performed By: #### L [id number] #### [facility] (DEFAULT) [address] [address] Protein [Mass/Vol] 7.3 g/dL Normal 6.4-8.3 [facility] Comment on above: Performed By: #### L [id number] #### [facility] (DEFAULT) [address] [address] HEPATITIS BATTERY, ACUTEon 0 08-12-2024 Hep B Core Ab,Total (IgG+IgM) Negative Normal Negative [facility] Comment on above: Performed By: #### Rishi EPNENITA Geller #### [facility] (DEFAULT) [address] [place] [address] 31708 Hep B Core IgM Ab Negative Normal Negative [facility] Comment on above: Performed By: #### Rishi EPLORY GellerG #### [facility] (DEFAULT) [address] [place] [address] Hepatitis A IgM Ab Negative Normal Negative [facility] Comment on above: Performed By: #### Rishi [id number] #### [facility] (DEFAULT) [address] [place] [address] Hepatitis B Surface Ag Negative Normal Negative [facility] Comment on above: Performed By: #### Rishi EPDuyen, LORYG #### [facility] (DEFAULT) [address] [place] [address]121 Hepatitis C Antibody Negative Normal Negative [facility] Comment on above: Performed By: #### Rishi EPLORY GellerG #### [facility] (DEFAULT) [address] [place] [address] LIPASEon 08-12-2024 Lipase [Catalytic activity/Vol] 8 U/L Low 11 - 82 U/L [facility] Lipase [Catalytic activity/Vol] 8 U/L Low 11-82 [facility] Comment on above: Performed By: #### L [id number] #### [facility] (DEFAULT) [address] [place] [address] MAGNESIUMon 08-12-2024 Interpretation and review of laboratory results Normal [facility] Magnesium [Mass/Vol] 1.9 mg/dL 1.6 - 2 .6 mg/dL [facility] Magnesium [Mass/Vol] 1.9 mg/dL Normal 1.6-2.6 [facility] Comment on above: Performed By: #### L [id number] #### [facility] (DEFAULT) [address] [place] [address] No Panel Informationon 08-12 [facility] Interpretation and review of laboratory results Abnormal [facility] Interpretation and review of laboratory results Normal [facility] POCT RAPID ANTIBODY TEST (OR AQUICK) HIV-1/2on 08-12-2024 HIV 1/2 Ab, manual enter Non-Reactive [facility] Interpretation and review of laboratory results Normal [facility] PROTIME-INRon 08-12-2024 INR Coag (Bld) [Relative time] 1 {INR} 0.9 - 1.1 [facility] PT Coag (PPP) [Time] 13.7 s [facility] INR Coag (PPP) [Relative time] 1.0 {INR} Normal 0.9-1.1 [facility] Comment on above: Performed By: #### L [id number] #### [facility] (DEFAULT) [address] [place] [address] PT Coag (PPP) [Time] 13.7 s Normal 11.9-14.2 [facility] Comment on above: Performed By: #### L [id number] #### [facility] (DEFAULT) [address] [place] [address] PTTon 08-12-2024 aPTT Coag (PPP) [Time] 27.1 s [facility] aPTT Coag (Bld) [Time] 27.1 s Normal 24.0-34.3 [facility] Comment on above: Performed By: #### L [id number] #### [facility] (DEFAULT) [address] [place] [address] T4 FREEon 08-12-2024 Free T4 [Mass/Vol] 1.04 ng/dL 0.89 - 1.76 ng/dL [facility] Interpretation and review of laboratory results Normal [facility] Free T4 [Mass/Vol] 1.04 ng/dL Normal 0.89-1.76 [facility] Comment on above: Performed By: #### L [id number] #### [facility] (DEFAULT) [address] [place] [address] TSHon 08-12-2024 Interpretation and review of laboratory results Normal [facility] TSH Qn 1.069 m[IU]/L [facility] TSH 1.069 uIU/mL Normal 0.550-4.78 0 [facility] Comment on above: Performed By: #### L [id number] #### [facility] (DEFAULT) [address] [place], [place] [id number] URINALYSIS REFLEX TO CULTURE PERFORMABLEon 08-12-2024 Appearance (U) Clear Clear [facility] Bacteria LM Ql (Urine sed) TRACE Abnormal ABSENT [facility] Color (U) Yellow Yellow [facility] Epithelial cells.squamous LM Ql (Urine sed) 6-10/hpf = 2+ Abnormal 0-2/hpf, 3-5/hpf = 1+ [facility] Glucose Test strip (U) [Mass/Vol] Negative Negative [facility] Interpretation and review of laboratory results Abnormal [facility] Ketones (U) [Mass/Vol] Negative Negative [facility] Leukocyte esterase Test strip Ql (U) Negative Negative [facility] Nitrite Ql (U) Negative Negative [facility] pH (U) 5.5 [pH] 5.0 - 7.0 [facility] Protein (U) [Mass/Vol] Trace Abnormal Negative [facility] RBC (U) [#/Vol] Large Abnormal Negative [facility] RBC LM.HPF (Urine sed) [#/Area] /[HPF] Abnormal [facility] Specific gravity (U) [Rel density] 1.013 1.001 - 1.035 [facility] Urobilinogen (U) [Mass/Vol] 0.2 E.U./dL 0.2 E.U/dL, 1.0 E.U/dL [facility] WBC LM.HPF (Urine sed) [#/Area] 0 - 5 [facility] Appearance (U) Clear Normal Clear [facility] Comment on above: Order Comment: For i ndwelling catheters, specimen collection is acceptable on catheter day 1 and 2 only. ? Performed By: #### L [id number] #### [facility] (DEFAULT) [address] [place] [address] Bacteria TRACE Abnormal ABSENT [facility] Comment on above: Order Comment: For i ndwelling catheters, specimen collection is acceptable on catheter day 1 and 2 only. ? Performed By: #### L [id number] #### [facility] (DEFAULT) [address] [place] [address] Blood Urine Large Abnormal Negative [facility] Comment on above: Order Comment: For i ndwelling catheters, specimen collection is acceptable on catheter day 1 and 2 only. ? Performed By: #### L [id number] #### [facility] (DEFAULT) [address] [place] [address] Color (U) Yellow Normal Yellow [facility] Comment on above: Order Comment: For i ndwelling catheters, specimen collection is acceptable on catheter day 1 and 2 only. ? Performed By: #### L [id number] #### [facility] (DEFAULT) [address] [place] [address] Glucose Ql (U) Negative Normal Negative [facility] Comment on above: Order Comment: For i ndwelling catheters, specimen collection is acceptable on catheter day 1 and 2 only. ? Performed By: #### L [id number] #### [facility] (DEFAULT) [address] [place] [address] Ketones Ql (U) Negative Normal Negative [facility] Comment on above: Order Comment: For i ndwelling catheters, specimen collection is acceptable on catheter day 1 and 2 only. ? Performed By: #### L [id number] #### [facility] (DEFAULT) [address] [place] [address] Leukocyte esterase Test strip Ql (U) Negative Normal Negative [facility] Comment on above: Order Comment: For i ndwelling catheters, specimen collection is acceptable on catheter day 1 and 2 only. ? Performed By: #### L [id number] #### [facility] (DEFAULT) [address] [place] [address] 6[address] Nitrites Urine Negative Normal Negative [facility] Comment on above: Order Comment: For i ndwelling catheters, specimen collection is acceptable on catheter day 1 and 2 only. ? Performed By: #### L [id number] #### [facility] (DEFAULT) [address] [place] [address] pH (U) 5.5 [pH] Normal 5.0-7.0 [facility] Comment on above: Order Comment: For i ndwelling catheters, specimen collection is acceptable on catheter day 1 and 2 only. ? Performed By: #### L [id number] #### [facility] (DEFAULT) [address] [place] [address] Protein Urine Trace Abnormal Negative [facility] Comment on above: Order Comment: For i ndwelling catheters, specimen collection is acceptable on catheter day 1 and 2 only. ? Performed By: #### L [id number] #### [facility] (DEFAULT) [address] [place] [address] RBC LM.HPF (Urine sed) [#/Area] /[HPF] Abnormal 0-2 [facility] Comment on above: Order Comment: For i ndwelling catheters, specimen collection is acceptable on catheter day 1 and 2 only. ? Performed By: #### L [id number] #### [facility] (DEFAULT) [address] [address] Specific [place] Urine 1.013 Normal 1.001 -1.03 5 [facility] Comment on above: Order Comment: For i ndwelling catheters, specimen collection is acceptable on catheter day 1 and 2 only. ? Performed By: #### L [id number] #### [facility] (DEFAULT) [address] [place] [address] Squamous/Epithelial Cells, Urine 6-10/hpf = 2+ Abnormal 0-2/hpf, 3-5/hpf = 1+ [facility] Comment on above: Order Comment: For i ndwelling catheters, specimen collection is acceptable on catheter day 1 and 2 only. ? Performed By: #### L [id number] #### [facility] (DEFAULT) [address] [place] [address] Urobilinogen Urine 0.2 E.U./dL Normal 0.2 E.U/dL, 1.0 E.U/dL [facility] Comment on above: Order Comment: For i ndwelling catheters, specimen collection is acceptable on catheter day 1 and 2 only. ? Performed By: #### L [id number] #### [facility] (DEFAULT) [address] [place] [address] WBC Urine 0 - 5 Normal 0 - 5 [facility] Comment on above: Order Comment: For i ndwelling catheters, specimen collection is acceptable on catheter day 1 and 2 only. ? Performed By: #### L [id number] #### [facility] (DEFAULT) [address] [place] [address] XR CHEST PA AND LATERAL 2 EWSon 08-12-2024 XR CHEST PA AND LATERAL 2 VIEWS EXAM: XR CHEST PA AND LATERAL 2 VIEWS, 08/12/2024 17:19 PM COMPARISON: No prior studies available for comparison. CLINICAL INDICATIONS: chest pain, sob RELEVANT CLINICAL HISTORY: FINDINGS: (Adequate technique) Implanted Devices: None Lungs: Clear, without mass, interstitial disease, or consolidation. Pleural Spaces: No pleural effusion. No pneumothorax. Mediastinum and Ida: Normal Cardiac silhouette and great vessels: Normal heart size. Unremarkable aorta. Chest Wall: Normal IMPRESSION: No acute cardiopulmonary disease Normal [facility] XR Chest PA and Lateralon IMPRESSION: No acute cardiopulmonary disease OLOGY EXAM: XR CHEST PA AN D LATERAL 2 VIEWS, 08/12/2024 17:19 PM COMPARISON: No prior studies available for comparison. CLINICAL INDICATIONS: chest pain, sob RELEVANT CLINICAL HISTORY: FINDINGS: (Adequate technique) Implanted Devices: None Lungs: Clear, without mass, interstitial disease, or consolidation. Pleural Spaces: No pleural effusion. No pneumothorax. Mediastinum and Ida: Normal Cardiac silhouette and great vessels: Normal heart size. Unremarkable aorta. Chest Wall: Normal RADIOLOGY Rajendra Sim MD - 08/12/2024 EXAM: XR CHEST PA AND LATERAL 2 VIEWS, 08/12/2024 17:19 PM COMPARISON: No prior studies available for comparison. CLINICAL INDICATIONS: chest pain, sob RELEVANT CLINICAL HISTORY: FINDINGS: (Adequate technique) Implanted Devices: None Lungs: Clear, without mass, interstitial disease, or consolidation. Pleural Spaces: No pleural effusion. No pneumothorax. Mediastinum and Ida: Normal Cardiac silhouette and great vessels: Normal heart size. Unremarkable aorta. Chest Wall: Normal IMPRESSION IMPRESSION: No acute cardiopulmonary disease [facility] Radiology Study observation (narrative) [facility] XR Chest PA and LateralOrder ed By: Rajendra Sim on 08-12-2024 [facility] Emergency Department Summary on 08-04-2024 Emergency Department Summary Normal [facility] 12 Lead EKGon 08-03-2024 12 Lead EKG Normal [facility] Absolute lymphocyte countOrd ered By: Amari Nicholas on 08-03-2024 Lymphocytes Auto (Unsp spec) [#/Vol] 2.96 10*3/uL 0.83-4.51 [facility] Absolute neutrophil countOrd ered By: Amari Nicholas on 08-03-2024 Neutrophils (Bld) [#/Vol] 5.4 10*3/uL 2.0-7.7 [facility] Activated partial thrombopla stin time (aPTT) in platelet poor plasma by coagulation aOrdered By: Amari Nicholas on 08-03-2024 aPTT Coag (PPP) [Time] 31.1 s 24.1-36.2 [facility] Alcohol, Blood (Medical)-Ser umon 08-03-2024 SERUM ETOH < 10.1 Normal <=10.0 [facility] Comment on above: Order Comment: REDRA W. PREVIOUS SPECIMEN REJECTED DUE TOHEMOLYSIS. 08/03/242226 Result Comment: This test is for medical purposes only. The legaldefinition of intoxication varies according to local law. Performed By: #### L 500.3400, L500.2500, L501.9520, L501.9100, L501.5200 ####[facility] [address] [place], [address] Amorphous sediment detection in urine sediment by light microscopyOrdered By: Amari Nicholas on 08-03-2024 Amorphous sediment LM Ql (Urine sed) 1+ [facility] Amphetamine detection with 1 000 ng/mL as cutoffOrdered By: Amari Nicholas on 08-03-2024 Amphetamines Screen method >1000 ng/mL Ql (U) Positive <1000 ng/mL [facility] Comment on above: If confirmation test ing is needed, a separate order will be required to send out testing to the reference laboratory. Amphetamines Screen method >1000 ng/mL Ql (U) Negative < 200 ng/mL [facility] Anion gap in Serum or Plasma Ordered By: Amari Nicholas on 08-03-2024 Anion gap [Moles/Vol] 12 mmol/L 06-27 [facility] Automated lymphocyte count a s percentage of total leukocytesOrdered By: Amari Nicholas on 08-03-2024 Lymphocytes/100 WBC Auto (Unsp spec) 31.8 % [facility] BUN/creatinine ratioOrdered By: Amari Nicholas on 08-03-2024 Urea nitrogen/Creatinine [Mass ratio] 12.2 mg/mg 12-02 [facility] Basic Metabolic Profile (BMP )on 08-03-2024 BUN/CRE 12.2 RATIO Normal 12-02 [facility] Comment on above: Order Comment: REDRA W. PREVIOUS SPECIMEN REJECTED DUE TOHEMOLYSIS. 08/03/242225. Performed By: #### L 500.3400, L500.2500, L501.9520, L501.9100, L501.5200 ####[facility] [address] [place], [address] Calcium [Mass/Vol] 9.0 mg/dL Normal 7.6-11.0 [facility] Comment on above: Order Comment: REDRA W. PREVIOUS SPECIMEN REJECTED DUE TOHEMOLYSIS. 08/03/242225. Performed By: #### L 500.3400, L500.2500, L501.9520, L501.9100, L501.5200 ####[facility] [address] [place], [address] Chloride [Moles/Vol] 104 mmol/L Normal 98-108 [facility] Comment on above: Order Comment: REDRA W. PREVIOUS SPECIMEN REJECTED DUE TOHEMOLYSIS. 08/03/242225. Performed By: #### L 500.3400, L500.2500, L501.9520, L501.9100, L501.5200 ####[facility] [address] [place], [address] CO2 [Moles/Vol] 20.1 mmol/L Low 21.0-32.0 [facility] Comment on above: Order Comment: REDRA W. PREVIOUS SPECIMEN REJECTED DUE TOHEMOLYSIS. 08/03/242225. Performed By: #### L 500.3400, L500.2500, L501.9520, L501.9100, L501.5200 ####[facility] [address] [place], [address] Creatinine [Mass/Vol] 0.47 mg/dL Low 0.70-1.20 [facility] Comment on above: Order Comment: REDRA W. PREVIOUS SPECIMEN REJECTED DUE TOHEMOLYSIS. 08/03/242225. Performed By: #### L 500.3400, L500.2500, L501.9520, L501.9100, L501.5200 ####[facility] [address] [place], [address] ECRCL 203.57 ml/min Normal 50-250 [facility] Comment on above: Order Comment: REDRA W. PREVIOUS SPECIMEN REJECTED DUE TOHEMOLYSIS. 08/03/242225. Performed By: #### L 500.3400, L500.2500, L501.9520, L501.9100, L501.5200 ####[facility] [address] [place], [address] GAP 12 Normal 5-15 [facility] Comment on above: Order Comment: REDRA W. PREVIOUS SPECIMEN REJECTED DUE TOHEMOLYSIS. 08/03/242225. Performed By: #### L 500.3400, L500.2500, L501.9520, L501.9100, L501.5200 ####[facility] [address] [place], [address] GFR/1.73 sq M.predicted among non-blacks MDRD (S/P/Bld) [Vol rate/Area] 137 mL/min/{1.73_m2} Normal >60 [facility] Comment on above: Order Comment: REDRA W. PREVIOUS SPECIMEN REJECTED DUE TOHEMOLYSIS. 08/03/242225. Result Comment: mL/m in/1.73m2 CKD-EPI Creatinine Equation (2020) Performed By: #### L 500.3400, L500.2500, L501.9520, L501.9100, L501.5200 ####[facility] [address] [place], [address] Glucose [Mass/Vol] 81 mg/dL Normal 70-99 [facility] Comment on above: Order Comment: REDRA W. PREVIOUS SPECIMEN REJECTED DUE TOHEMOLYSIS. 08/03/242225. Performed By: #### L 500.3400, L500.2500, L501.9520, L501.9100, L501.5200 ####[facility] [address] [place], [address] Potassium [Moles/Vol] 3.4 mmol/L Normal 3.3-5.1 [facility] Comment on above: Order Comment: REDRA W. PREVIOUS SPECIMEN REJECTED DUE TOHEMOLYSIS. 08/03/242225. Performed By: #### L 500.3400, L500.2500, L501.9520, L501.9100, L501.5200 ####[facility] [address] [place], [address] Sodium [Moles/Vol] 137 mmol/L Normal 133-145 [facility] Comment on above: Order Comment: REDRA W. PREVIOUS SPECIMEN REJECTED DUE TOHEMOLYSIS. 08/03/242225. Performed By: #### L 500.3400, L500.2500, L501.9520, L501.9100, L501.5200 ####[facility] [address] [place], [address] Urea nitrogen [Mass/Vol] 6 mg/dL Normal 4-19 [facility] Comment on above: Order Comment: REDRA W. PREVIOUS SPECIMEN REJECTED DUE TOHEMOLYSIS. 08/03/242225. Performed By: #### L 500.3400, L500.2500, L501.9520, L501.9100, L501.5200 ####[facility] [address] [place], [address] BUN Normal 4-19 [facility] Comment on above: Result Comment: This specimen has been REJECTED due to Laboratory criteria:Hemolyzed.ED has been notified of need of recollection.08/03/242223 Performed By: #### L 500.2500, L300.3900, L100.0100, L500.3400, L501.5200, L505.5000, L501.9520, L700.6800 ####[facility] [address] [place], [address] BUN/CRE Normal 10-20 [facility] Comment on above: Result Comment: This specimen has been REJECTED due to Laboratory criteria:Hemolyzed.ED has been notified of need of recollection.08/03/242223 Performed By: #### L 500.2500, L300.3900, L100.0100, L500.3400, L501.5200, L505.5000, L501.9520, L700.6800 ####[facility] [address] [place], [address] Calcium Normal 7.6-11.0 [facility] Comment on above: Result Comment: This specimen has been REJECTED due to Laboratory criteria:Hemolyzed.ED has been notified of need of recollection.08/03/242223 Performed By: #### L 500.2500, L300.3900, L100.0100, L500.3400, L501.5200, L505.5000, L501.9520, L700.6800 ####[facility] [address] [place], [place], [phone] CL Normal 98-108 [facility] Comment on above: Result Comment: This specimen has been REJECTED due to Laboratory criteria:Hemolyzed.ED has been notified of need of recollection.08/03/242223 Performed By: #### L 500.2500, L300.3900, L100.0100, L500.3400, L501.5200, L505.5000, L501.9520, L700.6800 ####[facility] [address] [place], [address] CO2 Normal 21.0-32.0 [facility] Comment on above: Result Comment: This specimen has been REJECTED due to Laboratory criteria:Hemolyzed.ED has been notified of need of recollection.08/03/242223 Performed By: #### L 500.2500, L300.3900, L100.0100, L500.3400, L501.5200, L505.5000, L501.9520, L700.6800 ####[facility] [address] [place], [address] CREAT,SERUM Normal 0.70-1.20 [facility] Comment on above: Result Comment: This specimen has been REJECTED due to Laboratory criteria:Hemolyzed.ED has been notified of need of recollection.08/03/242223 Performed By: #### L 500.2500, L300.3900, L100.0100, L500.3400, L501.5200, L505.5000, L501.9520, L700.6800 ####[facility] [address] [place], [address] eGFR Normal >60 [facility] Comment on above: Result Comment: This specimen has been REJECTED due to Laboratory criteria:Hemolyzed.ED has been notified of need of recollection.08/03/242223 Performed By: #### L 500.2500, L300.3900, L100.0100, L500.3400, L501.5200, L505.5000, L501.9520, L700.6800 ####[facility] [address] [place], [address] GAP Normal 5-15 [facility] Comment on above: Result Comment: This specimen has been REJECTED due to Laboratory criteria:Hemolyzed.ED has been notified of need of recollection.08/03/242223 Performed By: #### L 500.2500, L300.3900, L100.0100, L500.3400, L501.5200, L505.5000, L501.9520, L700.6800 ####[facility] [address] [place], [address] GLU Normal 70-99 [facility] Comment on above: Result Comment: This specimen has been REJECTED due to Laboratory criteria:Hemolyzed.ED has been notified of need of recollection.08/03/242223 Performed By: #### L 500.2500, L300.3900, L100.0100, L500.3400, L501.5200, L505.5000, L501.9520, L700.6800 ####[facility] [address] [place], [address] Potassium Normal 3.3-5.1 [facility] Comment on above: Result Comment: This specimen has been REJECTED due to Laboratory criteria:Hemolyzed.ED has been notified of need of recollection.08/03/242223 Performed By: #### L 500.2500, L300.3900, L100.0100, L500.3400, L501.5200, L505.5000, L501.9520, L700.6800 ####[facility] [address] [place], [address] Basic Metabolic Profile (BMP) Normal 133-145 [facility] Comment on above: Result Comment: This specimen has been REJECTED due to Laboratory criteria:Hemolyzed.ED has been notified of need of recollection.08/03/242223 Performed By: #### L 500.2500, L300.3900, L100.0100, L500.3400, L501.5200, L505.5000, L501.9520, L700.6800 ####[facility] [address] [place], [address] Basophil percentageOrdered B y: Amari Nicholas on 08-03-2024 Basophils/100 WBC (Bld) 0.4 % 0-1 [facility] Bilirubin Test strip Ql (U)O rdered By: Amari Nicholas on 08-03-2024 Bilirubin Ql (U) Negative Negative [facility] Bilirubin directOrdered By: Amari Nicholas on 08-03-2024 Bilirubin.direct [Mass/Vol] 0.55 mg/dL High 0.00-0.30 [facility] Bilirubin, totalOrdered By: Amari Nicholas on 08-03-2024 Bilirubin [Mass/Vol] 1.30 mg/dL 0.00-1.30 [facility] CBC W/Diff, Automatedon 07-15 Absolute Lymph 2.96 X10 3/uL Normal 0.83-4.51 [facility] Comment on above: Performed By: #### L 500.2500, L300.3900, L100.0100, L500.3400, L501.5200, L505.5000, L501.9520, L700.6800 ####[facility] [address] [place], [address] Absolute Neut 5.4 X10 3/uL Normal 2.0-7.7 [facility] Comment on above: Performed By: #### L 500.2500, L300.3900, L100.0100, L500.3400, L501.5200, L505.5000, L501.9520, L700.6800 ####[facility] [address] [place], [address] Basophils/100 WBC (Bld) 0.4 % Normal 0-1 [facility] Comment on above: Performed By: #### L 500.2500, L300.3900, L100.0100, L500.3400, L501.5200, L505.5000, L501.9520, L700.6800 ####[facility] [address] [place], [address] Eosinophils/100 WBC (Bld) 1.7 % Normal 0-5 [facility] Comment on above: Performed By: #### L 500.2500, L300.3900, L100.0100, L500.3400, L501.5200, L505.5000, L501.9520, L700.6800 ####[facility] [address] [place], [address] Erythrocyte distribution width (RBC) [Ratio] 14.0 % Normal 11.6-14.6 [facility] Comment on above: Performed By: #### L 500.2500, L300.3900, L100.0100, L500.3400, L501.5200, L505.5000, L501.9520, L700.6800 ####[facility] [address] [place], [address] Hematocrit (Bld) [Volume fraction] 40.1 % Normal 37-47 [facility] Comment on above: Performed By: #### L 500.2500, L300.3900, L100.0100, L500.3400, L501.5200, L505.5000, L501.9520, L700.6800 ####[facility] [address] [place], [address] Hemoglobin (Bld) [Mass/Vol] 13.6 g/dL Normal 12.0-15.0 [facility] Comment on above: Performed By: #### L 500.2500, L300.3900, L100.0100, L500.3400, L501.5200, L505.5000, L501.9520, L700.6800 ####[facility] [address] [place], [address] IG% 0.200 Normal 0.0-0.9 [facility] Comment on above: Result Comment: IG% - Immature Granulocytes (promyelocytes, myelocytes andmetamyelocytes) > 1% indicates that a LEFT SHIFT is Present. Performed By: #### L 500.2500, L300.3900, L100.0100, L500.3400, L501.5200, L505.5000, L501.9520, L700.6800 ####[facility] [address] [place], [address] Lymphocytes/100 WBC (Bld) 31.8 % Normal 19-41 [facility] Comment on above: Performed By: #### L 500.2500, L300.3900, L100.0100, L500.3400, L501.5200, L505.5000, L501.9520, L700.6800 ####[facility] [address] [place], [address] MCH (RBC) [Entitic mass] 32.1 pg High 27.0-32.0 [facility] Comment on above: Performed By: #### L 500.2500, L300.3900, L100.0100, L500.3400, L501.5200, L505.5000, L501.9520, L700.6800 ####[facility] [address] [place], [address] MCHC (RBC) [Mass/Vol] 33.9 g/dL Normal 32-36 [facility] Comment on above: Performed By: #### L 500.2500, L300.3900, L100.0100, L500.3400, L501.5200, L505.5000, L501.9520, L700.6800 ####[facility] [address] [place], [address] MCV (RBC) [Entitic vol] 94.6 fL Normal 81-[address] [facility] Comment on above: Performed By: #### L 500.2500, L300.3900, L100.0100, L500.3400, L501.5200, L505.5000, L501.9520, L700.6800 ####[facility] [address] [place], [address] Monocytes/100 WBC (Bld) 7.8 % Normal 0-[address] [facility] Comment on above: Performed By: #### L 500.2500, L300.3900, L100.0100, L500.3400, L501.5200, L505.5000, L501.9520, L700.6800 ####[facility] [address] [place], [address] Neutrophils/100 WBC (Bld) 58.1 % Normal 47-70 [facility] Comment on above: Performed By: #### L 500.2500, L300.3900, L100.0100, L500.3400, L501.5200, L505.5000, L501.9520, L700.6800 ####[facility] [address] [place], [address] Nucleated RBC (Bld) [#/Vol] 0 10*3/uL Normal 0-5 [facility] Comment on above: Performed By: #### L 500.2500, L300.3900, L100.0100, L500.3400, L501.5200, L505.5000, L501.9520, L700.6800 ####[facility] [address] [place], [address] Platelet mean volume (Bld) [Entitic vol] 10.9 fL Normal 6.2-12.0 [facility] Comment on above: Performed By: #### L 500.2500, L300.3900, L100.0100, L500.3400, L501.5200, L505.5000, L501.9520, L700.6800 ####[facility] [address] [place], [address] Platelets (Bld) [#/Vol] 306 10*3/uL Normal 150-450 [facility] Comment on above: Performed By: #### L 500.2500, L300.3900, L100.0100, L500.3400, L501.5200, L505.5000, L501.9520, L700.6800 ####[facility] [address] [place], [address] RBC (Bld) [#/Vol] 4.24 10*6/uL Normal 4.2-5.4 [facility] Comment on above: Performed By: #### L 500.2500, L300.3900, L100.0100, L500.3400, L501.5200, L505.5000, L501.9520, L700.6800 ####[facility] [address] [place], [place], [id number] RDW SD 48.3 fl High 35.1-43.9 [facility] Comment on above: Performed By: #### L 500.2500, L300.3900, L100.0100, L500.3400, L501.5200, L505.5000, L501.9520, L700.6800 ####[facility] [address] [place], [address] WBC (Bld) [#/Vol] 9.3 10*3/uL Normal 4.4-11.0 [facility] Comment on above: Performed By: #### L 500.2500, L300.3900, L100.0100, L500.3400, L501.5200, L505.5000, L501.9520, L700.6800 ####[facility] [address] [place], [place], [phone] Carbon dioxide, total [Moles /volume] in Central venous bloodOrdered By: Amari Nicholas on 08-03-2024 CO2 [Moles/Vol] 20.1 mmol/L Low 21.0-32.0 [facility] Chest 1 View (Portable)on Chest 1 View (Portable) Normal [facility] Chloride assayOrdered By: Trevor Nicholas on 08-03-2024 Chloride [Moles/Vol] 104 mmol/L 98-108 [facility] Eosinophil percentageOrdered By: Amari Nicholas on 08-03-2024 Eosinophils/100 WBC (Bld) 1.7 % 0-5 [facility] Erythrocyte distribution wid th ratioOrdered By: Amari Nicholas on 08-03-2024 Erythrocyte distribution width (RBC) [Ratio] 14.0 % 11.6-14.6 [facility] Erythrocyte distribution wid th standard deviationOrdered By: Amari Nicholas on 08-03-2024 Erythrocyte distribution width (RBC) [Ratio] 48.3 fl High 35.1-43.9 [facility] Glomerular filtration rate ( GFR) estimation/1.73 sq m using serum, plasma, or whole bOrdered By: Amari Nicholas on 08-03-2024 GFR/1.73 sq M.predicted among non-blacks MDRD (S/P/Bld) [Vol rate/Area] 137 mL/min/{1.73_m2} >60 [facility] Comment on above: mL/min/1.73m2 CKD-EP I Creatinine Equation (2020) Hematocrit Auto (Bld) [Volum e fraction]Ordered By: Amari Nicholas on 08-03-2024 Hematocrit (Bld) [Volume fraction] 40.1 % 37-47 [facility] Hemoglobin measurementOrdere d By: Amari Nicholas on 08-03-2024 Hemoglobin (Bld) [Mass/Vol] 13.6 g/dL 12.0-15.0 [facility] Immature granulocytes/100 WB C Auto (Bld)Ordered By: Amari Nicholas on 08-03-2024 Immature granulocytes/100 WBC (Bld) 0.200 % 0.0-0.9 [facility] Comment on above: IG% - Immature Granu locytes (promyelocytes, myelocytes and metamyelocytes) > 1% indicates that a LEFT SHIFT is Present. International normalized rat io (INR) calculationOrdered By: Amari Nicholas on 08-03-2024 INR Coag (Bld) [Relative time] 1.0 {INR} [facility] Ketones Test strip Ql (U)Ord ered By: Amari Nicholas on 08-03-2024 Ketones Ql (U) 50 mg/dl High Negative [facility] Laboratory - Chemistry and C hemistry - challengeOrdered By: Amari Nicholas on 08-03-2024 AST [Catalytic activity/Vol] 15 U/L <32 [facility] Liver Profileon 08-03-2024 Albumin [Mass/Vol] 3.5 g/dL Normal 3.5-5.0 [facility] Comment on above: Order Comment: ÁLVARO Peace PREVIOUS SPECIMEN REJECTED DUE TOHEMOLYSIS. 08/03/242225. Performed By: #### L 500.3400, L500.2500, L501.9520, L501.9100, L501.5200 ####[facility] [address] [place], [address] ALK PHOS 78 U/L Normal 35-104 [facility] Comment on above: Order Comment: REDRA W. PREVIOUS SPECIMEN REJECTED DUE TOHEMOLYSIS. 08/03/242225. Performed By: #### L 500.3400, L500.2500, L501.9520, L501.9100, L501.5200 ####[facility] [address] [place], [address] ALT [Catalytic activity/Vol] 6 U/L Normal <=34 [facility] Comment on above: Order Comment: REDRA W. PREVIOUS SPECIMEN REJECTED DUE TOHEMOLYSIS. 08/03/242225. Performed By: #### L 500.3400, L500.2500, L501.9520, L501.9100, L501.5200 ####[facility] [address] [place], [address] AST [Catalytic activity/Vol] 15 U/L Normal <=31 [facility] Comment on above: Order Comment: REDRA W. PREVIOUS SPECIMEN REJECTED DUE TOHEMOLYSIS. 08/03/242225. Performed By: #### L 500.3400, L500.2500, L501.9520, L501.9100, L501.5200 ####[facility] [address] [place], [address] Bilirubin [Mass/Vol] 1.30 mg/dL Normal 0.00-1.30 [facility] Comment on above: Order Comment: REDRA W. PREVIOUS SPECIMEN REJECTED DUE TOHEMOLYSIS. 08/03/242225. Performed By: #### L 500.3400, L500.2500, L501.9520, L501.9100, L501.5200 ####[facility] [address] [place], [address] Bilirubin.direct [Mass/Vol] 0.55 mg/dL High 0.00-0.30 [facility] Comment on above: Order Comment: REDRA W. PREVIOUS SPECIMEN REJECTED DUE TOHEMOLYSIS. 08/03/242225. Performed By: #### L 500.3400, L500.2500, L501.9520, L501.9100, L501.5200 ####[facility] [address] [place], [address] Globulin (S) [Mass/Vol] 3.3 g/dL Normal 2.2-4.[address] [facility] Comment on above: Order Comment: REDRA W. PREVIOUS SPECIMEN REJECTED DUE TOHEMOLYSIS. 08/03/242225. Performed By: #### L 500.3400, L500.2500, L501.9520, L501.9100, L501.5200 ####[facility] [address] [place], [address] T PROT 6.8 g/dL Normal 5.9-8.4 [facility] Comment on above: Order Comment: REDRA W. PREVIOUS SPECIMEN REJECTED DUE TOHEMOLYSIS. 08/03/242225. Performed By: #### L 500.3400, L500.2500, L501.9520, L501.9100, L501.5200 ####[facility] [address] [place], [address] ALB Normal 3.5-5.0 [facility] Comment on above: Result Comment: This specimen has been REJECTED due to Laboratory criteria:Hemolyzed.ED has been notified of need of recollection.08/03/242223 Performed By: #### L 500.2500, L300.3900, L100.0100, L500.3400, L501.5200, L505.5000, L501.9520, L700.6800 ####[facility] [address] [place], [address] ALK PHOS Normal 35-104 [facility] Comment on above: Result Comment: This specimen has been REJECTED due to Laboratory criteria:Hemolyzed.ED has been notified of need of recollection.08/03/242223 Performed By: #### L 500.2500, L300.3900, L100.0100, L500.3400, L501.5200, L505.5000, L501.9520, L700.6800 ####[facility] [address] [place], [place], [id number] ALT Normal <=34 [facility] Comment on above: Result Comment: This specimen has been REJECTED due to Laboratory criteria:Hemolyzed.ED has been notified of need of recollection.08/03/242223 Performed By: #### L 500.2500, L300.3900, L100.0100, L500.3400, L501.5200, L505.5000, L501.9520, L700.6800 ####[facility] [address] [place], [place], [phone]) AST Normal <=31 [facility] Comment on above: Result Comment: This specimen has been REJECTED due to Laboratory criteria:Hemolyzed.ED has been notified of need of recollection.08/03/242223 Performed By: #### L 500.2500, L300.3900, L100.0100, L500.3400, L501.5200, L505.5000, L501.9520, L700.6800 ####[facility] [address] [place], [address] D BILI Normal 0.00-0.30 [facility] Comment on above: Result Comment: This specimen has been REJECTED due to Laboratory criteria:Hemolyzed.ED has been notified of need of recollection.08/03/242223 Performed By: #### L 500.2500, L300.3900, L100.0100, L500.3400, L501.5200, L505.5000, L501.9520, L700.6800 ####[facility] [address] [place], [address] T BILI Normal 0.00-1.30 [facility] Comment on above: Result Comment: This specimen has been REJECTED due to Laboratory criteria:Hemolyzed.ED has been notified of need of recollection.08/03/242223 Performed By: #### L 500.2500, L300.3900, L100.0100, L500.3400, L501.5200, L505.5000, L501.9520, L700.6800 ####[facility] [address] [place], [address] T PROT Normal 5.9-8.4 [facility] Comment on above: Result Comment: This specimen has been REJECTED due to Laboratory criteria:Hemolyzed.ED has been notified of need of recollection.08/03/242223 Performed By: #### L 500.2500, L300.3900, L100.0100, L500.3400, L501.5200, L505.5000, L501.9520, L700.6800 ####[facility] [address] [place], [address] MCV (mean corpuscular volume ) determinationOrdered By: Amari Nicholas on 08-03-2024 MCV (RBC) [Entitic vol] 94.6 fL 81-99 [facility] Magnesiumon 08-03-2024 Magnesium [Mass/Vol] 1.8 mg/dL Normal 1.5-2.2 [facility] Comment on above: Order Comment: RED W. PREVIOUS SPECIMEN REJECTED DUE TOHEMOLYSIS. 08/03/242225. Performed By: #### L 500.3400, L500.2500, L501.9520, L501.9100, L501.5200 ####[facility] [address] [place], [address] Magnesium [Mass/Vol] 2.1 mg/dL Normal 1.5-2.2 [facility] Comment on above: Order Comment: This specimen has been REJECTED due to Laboratory criteria:Hemolyzed.ED has been notified of need of recollection.08/03/242223 Result Comment: This specimen has been REJECTED due to Laboratory criteria:Hemolyzed.ED has been notified of need of recollection.08/03/242223 Performed By: #### L 500.2500, L300.3900, L100.0100, L500.3400, L501.5200, L505.5000, L501.9520, L700.6800 ####[facility] [address] [place], [address] Magnesium measurement (mass/ volume)Ordered By: Amari Nicholas on 08-03-2024 Magnesium (Unsp spec) [Mass/Vol] 1.8 mg/dL 1.5-2.2 [facility] Mean corpuscular hemoglobin (MCH) determinationOrdered By: Amari Nicholas on 08-03-2024 MCH (RBC) [Entitic mass] 32.1 pg High 27.0-32.0 [facility] Mean corpuscular hemoglobin concentration (MCHC) determinationOrdered By: Amari Nicholas on 08-03-2024 MCHC (RBC) [Mass/Vol] 33.9 g/dL 32-36 [facility] Mean platelet volume determi nationOrdered By: Amari Nicholas on 08-03-2024 Platelet mean volume (Bld) [Entitic vol] 10.9 fL 6.2-12.0 [facility] Microscopic analysis of urin e for red blood cells (RBC)Ordered By: Amari Nicholas on 08-03-2024 Microscopic analysis of urine for red blood cells (RBC) 0 SEEN /hpf 0-5 [facility] Monocyte percentageOrdered B y: Amari Nicholas on 08-03-2024 Monocytes/100 WBC (Bld) 7.8 % 0-10 [facility] Mucus LM Ql (Urine sed)Order ed By: Amari Nicholas on 08-03-2024 Mucus Ql (Urine sed) 1+ /hpf [facility] Neutrophil percentageOrdered By: Amari Nicholas on 08-03-2024 Neutrophils/100 WBC (Bld) 58.1 % 47-70 [facility] Nitrite Test strip Ql (U)Ord ered By: Amari Nicholas on 08-03-2024 Nitrite Ql (U) Negative Negative [facility] No Panel InformationOrdered By: Amari Nicholas on 08-03-2024 Urine Buprenorphine Qualitative Negative < 200 ng/mL [facility] Urine Oxycodone Screen Negative < 100 ng/mL [facility] Nucleated red blood cell per centageOrdered By: Amari Nicholas on 08-03-2024 Nucleated RBC/100 WBC (Bld) [Ratio] 0 % 0-5 [facility] Partial Thromboplast Timeon 08-03-2024 aPTT Coag (Bld) [Time] 31.1 s Normal 24.1-36.2 [facility] Comment on above: Performed By: #### L 300.4310, L300.3900 ####[facility] [address] [place], [place], [phone] Platelet countOrdered By: Trevor Nicholas on 08-03-2024 Platelets (Bld) [#/Vol] 306 10*3/uL 150-450 [facility] Potassium measurement (mass/ volume)Ordered By: Amari Nicholas on 08-03-2024 Potassium (Unsp spec) [Mass/Vol] 3.4 mmol/L 3.3-5.1 [facility] ,Serum,hCG Quali.on 08-03-2024 HCG, SERUM QUAL Negative Normal [facility] Comment on above: Performed By: #### L 500.2500, L300.3900, L100.0100, L500.3400, L501.5200, L505.5000, L501.9520, L700.6800 ####[facility] [address] [place], [place], [phone] Protein Test strip Ql (U)Ord ered By: Amari Nicholas on 08-03-2024 Protein Ql (U) 15 mg/dl High Negative [facility] Prothrombin Time w/INRon INR Coag (PPP) [Relative time] 1.0 {INR} Normal [facility] Comment on above: Performed By: #### L 300.4310, L300.3900 ####[facility] [address] [place], [address] PT Coag (PPP) [Time] 13.7 s Normal 11.7-14.9 [facility] Comment on above: Performed By: #### L 300.4310, L300.3900 ####[facility] [address] [place], [address] INR Normal [facility] Comment on above: Result Comment: This specimen has been REJECTED due to Laboratory criteria:Hemolyzed.LEONILA CANDELARIA has been notified of need of recollection.08/03/242156 Phyllis Sánchez Performed By: #### L 500.2500, L300.3900, L100.0100, L500.3400, L501.5200, L505.5000, L501.9520, L700.6800 ####[facility] [address] [place], [address] PROTIME Normal 11.7-14.9 [facility] Comment on above: Result Comment: This specimen has been REJECTED due to Laboratory criteria:Hemolyzed.LEONILA CANDELARIA has been notified of need of recollection.08/03/242156 Phyllis Sánchez Performed By: #### L 500.2500, L300.3900, L100.0100, L500.3400, L501.5200, L505.5000, L501.9520, L700.6800 ####[facility] [address] [place], [address] Prothrombin timeOrdered By: Amari Nicholas on 08-03-2024 PT Coag (PPP) [Time] 13.7 s 11.7-14.9 [facility] Quantitative urine opiates m easurementOrdered By: Amari Nicholas on 08-03-2024 Opiates Ql (U) Negative < 300 ng/mL [facility] RBC Auto (Bld) [#/Vol]Ordere d By: Amari Nicholas on 08-03-2024 RBC (Bld) [#/Vol] 4.24 10*6/uL 4.2-5.4 [facility] Screening urine fentanyl suzette surementOrdered By: Amari Nicholas on 08-03-2024 fentaNYL Screen Ql (U) Negative [facility] Serum beta-hCG test, qualita tiveOrdered By: Amari Nicholas on 08-03-2024 Beta HCG ( test) Ql Negative [facility] Serum creatinine measurement (mass/volume)Ordered By: Amari Nicholas on 08-03-2024 Creatinine [Mass/Vol] 0.47 mg/dL Low 0.70-1.20 [facility] Serum globulin measurementOr dered By: Amari Nicholas on 08-03-2024 Globulin (S) [Mass/Vol] 3.3 g/dL 2.2-4.2 [facility] Serum glucose measurement (m ass/volume)Ordered By: Amari Nicholas on 08-03-2024 Glucose [Mass/Vol] 81 mg/dL 70-99 [facility] Serum or plasma alanine sheffield otransferase (ALT) measurementOrdered By: Amari Nicholas on 08-03-2024 ALT [Catalytic activity/Vol] 6 U/L <35 [facility] Serum or plasma albumin riddhi urement (mass/volume)Ordered By: Amari Nicholas on 08-03-2024 Albumin [Mass/Vol] 3.5 g/dL 3.5-5.0 [facility] Serum or plasma alkaline sandra sphatase measurementOrdered By: Amari Nicholas on 08-03-2024 ALP [Catalytic activity/Vol] 78 U/L 35-104 [facility] Serum or plasma calcium riddhi urement (mass/volume)Ordered By: Amari Nicholas on 08-03-2024 Calcium [Mass/Vol] 9.0 mg/dL 7.6-11.0 [facility] Serum or plasma ethanol riddhi urement (mass/volume)Ordered By: Amari Nicholas on 08-03-2024 Ethanol [Mass/Vol] mg/dL <10.1 [facility] Comment on above: This test is for med ical purposes only. The legal definition of intoxication varies according to local law. Serum or plasma urea nitroge n measurement (mass/volume)Ordered By: Amari Nicholas on 08-03-2024 Urea nitrogen [Mass/Vol] 6 mg/dL 4-19 [facility] Sodium levelOrdered By: Bret Nicholas on 08-03-2024 Sodium [Moles/Vol] 137 mmol/L 133-145 [facility] Squamous epithelial cells de tection in urine sediment by light microscopyOrdered By: Amari Nicholas on 08-03-2024 Epithelial cells.squamous LM Ql (Urine sed) 0-5 SEEN /hpf 5-10 [facility] TSH DL <= 0.005 mIU/L QnOrde red By: Amari Nicholas on 08-03-2024 TSH Qn 1.690 uIU/mL 0.300-4.20 0 [facility] Thyroid Stim Hormone (TSH)on 08-03-2024 TSH 1.690 uIU/mL Normal 0.300-4.20 0 [facility] Comment on above: Order Comment: REDRA W. PREVIOUS SPECIMEN REJECTED DUE TOHEMOLYSIS. 08/03/242225. Performed By: #### L 500.3400, L500.2500, L501.9520, L501.9100, L501.5200 ####[facility] [address] [place], [address] TSH 1.380 uIU/mL Normal 0.300-4.20 0 [facility] Comment on above: Order Comment: This specimen has been REJECTED due to Laboratory criteria:Hemolyzed.ED has been notified of need of recollection.08/03/242223 Result Comment: This specimen has been REJECTED due to Laboratory criteria:Hemolyzed.ED has been notified of need of recollection.08/03/242223 Performed By: #### L 500.2500, L300.3900, L100.0100, L500.3400, L501.5200, L505.5000, L501.9520, L700.6800 ####[facility] [address] [place], [address] Total proteinOrdered By: Nito phippstres Rodriguez Hevia on 08-03-2024 Protein [Mass/Vol] 6.8 g/dL 5.9-8.4 [facility] Urinalysis, Completeon 08-03 AMORPHOUS 1+ Normal [facility] Comment on above: Order Comment: CLEAN CATCH Performed By: #### L 400.0001 ####[facility] [address] [place], [address] BACTERIA 3+ /hpf Normal None Seen [facility] Comment on above: Order Comment: CLEAN CATCH Performed By: #### L 400.0001 ####[facility] [address] [place], [address] EPI,SQUAMOUS 0-5 SEEN Normal 5-10 [facility] Comment on above: Order Comment: CLEAN CATCH Performed By: #### L 400.0001 ####[facility] [address] [place], [address] Mucus Ql (Urine sed) 1+ /hpf Normal [facility] Comment on above: Order Comment: CLEAN CATCH Performed By: #### L 400.0001 ####[facility] [address] [place], [address] WBC 0-5 SEEN Normal 0-5 [facility] Comment on above: Order Comment: CLEAN CATCH Performed By: #### L 400.0001 ####[facility] [address] [place], [address] RBC 0 SEEN Normal 0-5 [facility] Comment on above: Order Comment: CLEAN CATCH Performed By: #### L 400.0001 ####[facility] [address] [place], [address] Urine Drug Screen (VISTA)on 08-03-2024 AMPHETAMINES Positive Normal <1000 ng/mL [facility] Comment on above: Result Comment: If c onfirmation testing is needed, a separate order will berequired to send out testing to the reference laboratory. Performed By: #### L 500.2500, L300.3900, L100.0100, L500.3400, L501.5200, L505.5000, L501.9520, L700.6800 ####[facility] [address] [place], [address] BARBITIURATES Negative Normal < 200 ng/mL [facility] Comment on above: Performed By: #### L 500.2500, L300.3900, L100.0100, L500.3400, L501.5200, L505.5000, L501.9520, L700.6800 ####[facility] [address] [place], [phone] BENZODIAZIPINE Negative Normal < 200 ng/mL [facility] Comment on above: Performed By: #### L 500.2500, L300.3900, L100.0100, L500.3400, L501.5200, L505.5000, L501.9520, L700.6800 ####[facility] [address] [place], [phone] BUP Ur Drug Scr Negative Normal < 200 ng/mL [facility] Comment on above: Performed By: #### L 500.2500, L300.3900, L100.0100, L500.3400, L501.5200, L505.5000, L501.9520, L700.6800 ####[facility] [address] [place], [address] COCAINE Negative Normal < 300 ng/mL [facility] Comment on above: Performed By: #### L 500.2500, L300.3900, L100.0100, L500.3400, L501.5200, L505.5000, L501.9520, L700.6800 ####[facility] [address] [place], [phone] Fentanyl Negative Normal [facility] Comment on above: Performed By: #### L 500.2500, L300.3900, L100.0100, L500.3400, L501.5200, L505.5000, L501.9520, L700.6800 ####[facility] [address] [place], [address] METHADONE Negative Normal < 300 ng/mL [facility] Comment on above: Performed By: #### L 500.2500, L300.3900, L100.0100, L500.3400, L501.5200, L505.5000, L501.9520, L700.6800 ####[facility] [address] [place], [phone] OPIATES Negative Normal < 300 ng/mL [facility] Comment on above: Performed By: #### L 500.2500, L300.3900, L100.0100, L500.3400, L501.5200, L505.5000, L501.9520, L700.6800 ####[facility] [address] [place] [address] OXYCODONE Negative Normal < 100 ng/mL [facility] Comment on above: Performed By: #### L 500.2500, L300.3900, L100.0100, L500.3400, L501.5200, L505.5000, L501.9520, L700.6800 ####[facility] [address] [place], [phone] PCP Negative Normal < 25 ng/mL [facility] Comment on above: Performed By: #### L 500.2500, L300.3900, L100.0100, L500.3400, L501.5200, L505.5000, L501.9520, L700.6800 ####[facility] [address] [place] [address] THC Negative Normal < 50 ng/mL [facility] Comment on above: Performed By: #### L 500.2500, L300.3900, L100.0100, L500.3400, L501.5200, L505.5000, L501.9520, L700.6800 ####[facility] [address] [place], [address] Urine benzodiazepine levelOr dered By: Amari Nicholas on 08-03-2024 Benzodiazepines Ql (U) Negative < 200 ng/mL [facility] Urine clarityOrdered By: Nito Nicholas on 08-03-2024 Clarity (U) Clear Clear [facility] Urine cocaine levelOrdered B y: Amari Nicholas on 08-03-2024 Cocaine Ql (U) Negative < 300 ng/mL [facility] Urine color determinationOrd ered By: Amari Nicholas on 08-03-2024 Color (U) Yellow Yellow [facility] Urine dggwv-2-vydvevnbkugbal abinol (THC) measurementOrdered By: Amari Nicholas on 08-03-2024 Cannabinoids Screen Ql (U) Negative < 50 ng/mL [facility] Urine glucose detectionOrder ed By: Amari Nicholas on 08-03-2024 Glucose Ql (U) Normal mg/dl Normal [facility] Urine leukocyte esterase det ection by dipstickOrdered By: Amari Nicholas on 08-03-2024 Leukocyte esterase Test strip Ql (U) Negative Negative [facility] Urine pHOrdered By: Amari luong on 08-03-2024 pH (U) 6.5 [pH] 5.0 - 8.0 [facility] Urine phencyclidine (PCP) de tectionOrdered By: Amari Nicholas on 08-03-2024 Phencyclidine Ql (U) Negative < 25 ng/mL [facility] Urine sediment bacteria coun t by microscopy (number/high power field)Ordered By: Amari Nicholas on 08-03-2024 Bacteria LM.HPF (Urine sed) [#/Area] 3 /[HPF] None Seen [facility] Urine specific gravity measu rementOrdered By: Amari Davisehne on 08-03-2024 Specific gravity (U) [Rel density] 1.015 1.002-1.03 0 [facility] Urine urobilinogen measureme ntOrdered By: Amari Yu on 08-03-2024 Urobilinogen Ql (U) Normal mg/dl Normal [facility] White blood cell (WBC) count Ordered By: Amari Yu on 08-03-2024 WBC (Bld) [#/Vol] 9.3 10*3/uL 4.4-11.0 [facility] White blood cell countOrdere d By: Amari Nicholas on 08-03-2024 White blood cell count 0-5 SEEN /hpf 0-5 [facility] aPTTon 08-03-2024 aPTT [facility] 36on 07-18-2024 36 Also sent her a [facility] message---has not read or answer her phone. If patient calls back please make sure she is aware she needs to call to schedule with Psych. [facility] message sent to patient: Farideh wanted me want to reach out to let you know that she would like you to follow up with the psychiatric provider that you had seen that last filled your prescription of olanzapine. His name is Gary Hernandez. Please call there office to get scheduled at your earliest convenience. I attached there offices information below. [facility] [address] [address] Normal [facility] Absolute lymphocyte countOrd ered By: Bharat Pinedo on 07-14-2024 Lymphocytes Auto (Unsp spec) [#/Vol] 2.64 10*3/uL 0.83-4.51 [facility] Absolute neutrophil countOrd ered By: Bharat Pinedo on 07-14-2024 Neutrophils (Bld) [#/Vol] 7.4 10*3/uL 2.0-7.7 [facility] Alcohol, Blood (Medical)-Ser umon 07-14-2024 SERUM ETOH 21.7 mg/dL High <=10.0 [facility] Comment on above: Result Comment: This test is for medical purposes only. The legaldefinition of intoxication varies according to local law. Performed By: #### L 501.9100, L500.2500, L700.6800, L505.5000, L100.0100 ####[facility] [address] [place], [address] Amphetamine detection with 1 000 ng/mL as cutoffOrdered By: Bharat Pinedo on 07-14-2024 Amphetamines Screen method >1000 ng/mL Ql (U) Positive <1000 ng/mL [facility] Comment on above: If confirmation test ing is needed, a separate order will be required to send out testing to the reference laboratory. Amphetamines Screen method >1000 ng/mL Ql (U) Negative < 200 ng/mL [facility] Anion gap in Serum or Plasma Ordered By: Bharat Pinedo on 07-14-2024 Anion gap [Moles/Vol] 13 mmol/L 5-15 [facility] Automated lymphocyte count a s percentage of total leukocytesOrdered By: Bharat Pinedo on 07-14-2024 Lymphocytes/100 WBC Auto (Unsp spec) 24.0 % - [facility] BUN/creatinine ratioOrdered By: Bharat Pinedo on 07-14-2024 Urea nitrogen/Creatinine [Mass ratio] 17.9 mg/mg - [facility] Basic Metabolic Profile (BMP )on 07-14-2024 BUN/CRE 17.9 RATIO Normal - [facility] Comment on above: Performed By: #### L 501.9100, L500.2500, L700.6800, L505.5000, L100.0100 ####[facility] [address] [place], [address] Calcium [Mass/Vol] 9.3 mg/dL Normal 7.6-11.0 [facility] Comment on above: Performed By: #### L 501.9100, L500.2500, L700.6800, L505.5000, L100.0100 ####[facility] [address] [place], [address] Chloride [Moles/Vol] 108 mmol/L Normal 98-108 [facility] Comment on above: Performed By: #### L 501.9100, L500.2500, L700.6800, L505.5000, L100.0100 ####[facility] [address] [place], [address] CO2 [Moles/Vol] 23.1 mmol/L Normal 21.0-32.0 [facility] Comment on above: Performed By: #### L 501.9100, L500.2500, L700.6800, L505.5000, L100.0100 ####[facility] [address] [place], [address] Creatinine [Mass/Vol] 0.59 mg/dL Low 0.70-1.20 [facility] Comment on above: Performed By: #### L 501.9100, L500.2500, L700.6800, L505.5000, L100.0100 ####[facility] [address] [place], [address] ECRCL 164.24 ml/min Normal 50-250 [facility] Comment on above: Performed By: #### L 501.9100, L500.2500, L700.6800, L505.5000, L100.0100 ####[facility] [address] [place], [address] GAP 13 Normal 5-15 [facility] Comment on above: Performed By: #### L 501.9100, L500.2500, L700.6800, L505.5000, L100.0100 ####[facility] [address] [place], [address] GFR/1.73 sq M.predicted among non-blacks MDRD (S/P/Bld) [Vol rate/Area] 129 mL/min/{1.73_m2} Normal >60 [facility] Comment on above: Result Comment: mL/m in/1.73m2 CKD-EPI Creatinine Equation (2020) Performed By: #### L 501.9100, L500.2500, L700.6800, L505.5000, L100.0100 ####[facility] [address] [place], [address] Glucose [Mass/Vol] 84 mg/dL Normal 70-99 [facility] Comment on above: Performed By: #### L 501.9100, L500.2500, L700.6800, L505.5000, L100.0100 ####[facility] [address] [place], [address] Potassium [Moles/Vol] 3.8 mmol/L Normal 3.3-5.1 [facility] Comment on above: Performed By: #### L 501.9100, L500.2500, L700.6800, L505.5000, L100.0100 ####[facility] [address] [place], [address] Sodium [Moles/Vol] 144 mmol/L Normal 133-145 [facility] Comment on above: Performed By: #### L 501.9100, L500.2500, L700.6800, L505.5000, L100.0100 ####[facility] [address] [place], [address] Urea nitrogen [Mass/Vol] 11 mg/dL Normal 4-19 [facility] Comment on above: Performed By: #### L 501.9100, L500.2500, L700.6800, L505.5000, L100.0100 ####[facility] [address] [place], [address] Basophil percentageOrdered B y: Bharat Pinedo on 07-14-2024 Basophils/100 WBC (Bld) 0.4 % 0-1 [facility] Bilirubin Test strip Ql (U)O rdered By: Bharat Pinedo on 07-14-2024 Bilirubin Ql (U) Negative Negative [facility] CBC W/Diff, Automatedon 06-0 -2024 Absolute Lymph 2.64 X10 3/uL Normal 0.83-4.51 [facility] Comment on above: Performed By: #### L 501.9100, L500.2500, L700.6800, L505.5000, L100.0100 ####[facility] [address] [place], [address] Absolute Neut 7.4 X10 3/uL Normal 2.0-7.7 [facility] Comment on above: Performed By: #### L 501.9100, L500.2500, L700.6800, L505.5000, L100.0100 ####[facility] [address] [place], [address] Basophils/100 WBC (Bld) 0.4 % Normal 0-1 [facility] Comment on above: Performed By: #### L 501.9100, L500.2500, L700.6800, L505.5000, L100.0100 ####[facility] [address] [place], [address] Eosinophils/100 WBC (Bld) 2.8 % Normal 0-5 [facility] Comment on above: Performed By: #### L 501.9100, L500.2500, L700.6800, L505.5000, L100.0100 ####[facility] [address] [place], [address] Erythrocyte distribution width (RBC) [Ratio] 13.3 % Normal 11.6-14.6 [facility] Comment on above: Performed By: #### L 501.9100, L500.2500, L700.6800, L505.5000, L100.0100 ####[facility] [address] [place], [address] Hematocrit (Bld) [Volume fraction] 40.2 % Normal 37-47 [facility] Comment on above: Performed By: #### L 501.9100, L500.2500, L700.6800, L505.5000, L100.0100 ####[facility] [address] [place], [address] Hemoglobin (Bld) [Mass/Vol] 13.5 g/dL Normal 12.0-15.0 [facility] Comment on above: Performed By: #### L 501.9100, L500.2500, L700.6800, L505.5000, L100.0100 ####[facility] [address] [place], [address] IG% 0.200 Normal 0.0-0.9 [facility] Comment on above: Result Comment: IG% - Immature Granulocytes (promyelocytes, myelocytes andmetamyelocytes) > 1% indicates that a LEFT SHIFT is Present. Performed By: #### L 501.9100, L500.2500, L700.6800, L505.5000, L100.0100 ####[facility] [address] [place], [address] Lymphocytes/100 WBC (Bld) 24.0 % Normal 19-41 [facility] Comment on above: Performed By: #### L 501.9100, L500.2500, L700.6800, L505.5000, L100.0100 ####[facility] [address] [place], [address] MCH (RBC) [Entitic mass] 31.8 pg Normal 27.0-32.0 [facility] Comment on above: Performed By: #### L 501.9100, L500.2500, L700.6800, L505.5000, L100.0100 ####[facility] [address] [place], [address] MCHC (RBC) [Mass/Vol] 33.6 g/dL Normal 32-36 [facility] Comment on above: Performed By: #### L 501.9100, L500.2500, L700.6800, L505.5000, L100.0100 ####[facility] [address] [place], [address] MCV (RBC) [Entitic vol] 94.6 fL Normal 81-99 [facility] Comment on above: Performed By: #### L 501.9100, L500.2500, L700.6800, L505.5000, L100.0100 ####[facility] [address] [place], [address] Monocytes/100 WBC (Bld) 5.9 % Normal 0-10 [facility] Comment on above: Performed By: #### L 501.9100, L500.2500, L700.6800, L505.5000, L100.0100 ####[facility] [address] [place], [address] Neutrophils/100 WBC (Bld) 66.7 % Normal 47-70 [facility] Comment on above: Performed By: #### L 501.9100, L500.2500, L700.6800, L505.5000, L100.0100 ####[facility] [address] [place], [address] Nucleated RBC (Bld) [#/Vol] 0 10*3/uL Normal 0-5 [facility] Comment on above: Performed By: #### L 501.9100, L500.2500, L700.6800, L505.5000, L100.0100 ####[facility] [address] [place], [address] Platelet mean volume (Bld) [Entitic vol] 10.0 fL Normal 6.2-12.0 [facility] Comment on above: Performed By: #### L 501.9100, L500.2500, L700.6800, L505.5000, L100.0100 ####[facility] [address] [place], [address] Platelets (Bld) [#/Vol] 266 10*3/uL Normal 150-450 [facility] Comment on above: Performed By: #### L 501.9100, L500.2500, L700.6800, L505.5000, L100.0100 ####[facility] [address] [place], [address] RBC (Bld) [#/Vol] 4.25 10*6/uL Normal 4.2-5.4 [facility] Comment on above: Performed By: #### L 501.9100, L500.2500, L700.6800, L505.5000, L100.0100 ####[facility] [address] [place], [address] RDW SD 46.4 fl High 35.1-43.9 [facility] Comment on above: Performed By: #### L 501.9100, L500.2500, L700.6800, L505.5000, L100.0100 ####[facility] [address] [place], [address] WBC (Bld) [#/Vol] 11.0 10*3/uL Normal 4.4-11.0 [facility] Comment on above: Performed By: #### L 501.9100, L500.2500, L700.6800, L505.5000, L100.0100 ####[facility] [address] [place], [address] Carbon dioxide, total [Moles /volume] in Central venous bloodOrdered By: Bharat Pinedo on 07-14-2024 CO2 [Moles/Vol] 23.1 mmol/L 21.0-32.0 [facility] Chest PA and Lateralon 07-14 Chest PA and Lateral Normal [facility] Chloride assayOrdered By: Francisco Pinedo on 07-14-2024 Chloride [Moles/Vol] 108 mmol/L 98-108 [facility] Emergency Department Summary on 07-14-2024 Emergency Department Summary Normal [facility] Emergency Department Summary Normal [facility] Eosinophil percentageOrdered By: Bharat Pinedo on 07-14-2024 Eosinophils/100 WBC (Bld) 2.8 % 0-5 [facility] Erythrocyte distribution wid th ratioOrdered By: Bharat Pinedo on 07-14-2024 Erythrocyte distribution width (RBC) [Ratio] 13.3 % 11.6-14.6 [facility] Erythrocyte distribution wid th standard deviationOrdered By: Bharat Pinedo on 07-14-2024 Erythrocyte distribution width (RBC) [Ratio] 46.4 fl High 35.1-43.9 [facility] Glomerular filtration rate ( GFR) estimation/1.73 sq m using serum, plasma, or whole bOrdered By: Bharat Pinedo on 07-14-2024 GFR/1.73 sq M.predicted among non-blacks MDRD (S/P/Bld) [Vol rate/Area] 129 mL/min/{1.73_m2} >60 [facility] Comment on above: mL/min/1.73m2 CKD-EP I Creatinine Equation (2020) Hematocrit Auto (Bld) [Volum e fraction]Ordered By: Bharat Pinedo on 07-14-2024 Hematocrit (Bld) [Volume fraction] 40.2 % 37-47 [facility] Hemoglobin measurementOrdere d By: Bharat Pinedo on 07-14-2024 Hemoglobin (Bld) [Mass/Vol] 13.5 g/dL 12.0-15.0 [facility] Immature granulocytes/100 WB C Auto (Bld)Ordered By: Bharat Pinedo on 07-14-2024 Immature granulocytes/100 WBC (Bld) 0.200 % 0.0-0.9 [facility] Comment on above: IG% - Immature Granu locytes (promyelocytes, myelocytes and metamyelocytes) > 1% indicates that a LEFT SHIFT is Present. Ketones Test strip Ql (U)Ord ered By: Bharat Pinedo on 07-14-2024 Ketones Ql (U) Negative Negative [facility] MCV (mean corpuscular volume ) determinationOrdered By: Bharat Pinedo on 07-14-2024 MCV (RBC) [Entitic vol] 94.6 fL 81-99 [facility] Mean corpuscular hemoglobin (MCH) determinationOrdered By: Bharat Pinedo on 07-14-2024 MCH (RBC) [Entitic mass] 31.8 pg 27.0-32.0 [facility] Mean corpuscular hemoglobin concentration (MCHC) determinationOrdered By: Bharat Pinedo on 07-14-2024 MCHC (RBC) [Mass/Vol] 33.6 g/dL 32-36 [facility] Mean platelet volume determi nationOrdered By: Bharat Pinedo on 07-14-2024 Platelet mean volume (Bld) [Entitic vol] 10.0 fL 6.2-12.0 [facility] Microscopic analysis of urin e for red blood cells (RBC)Ordered By: Bharat Pinedo on 07-14-2024 Microscopic analysis of urine for red blood cells (RBC) 25-50 SEEN /hpf 0-5 [facility] Monocyte percentageOrdered B y: Bharat Pinedo on 07-14-2024 Monocytes/100 WBC (Bld) 5.9 % 0-10 [facility] Mucus LM Ql (Urine sed)Order ed By: Bharat Pinedo on 07-14-2024 Mucus Ql (Urine sed) 0 SEEN /hpf [facility] Neutrophil percentageOrdered By: Bharat Pinedo on 07-14-2024 Neutrophils/100 WBC (Bld) 66.7 % 47-70 [facility] Nitrite Test strip Ql (U)Ord ered By: Bharat Pinedo on 07-14-2024 Nitrite Ql (U) Negative Negative [facility] No Panel InformationOrdered By: Bharat Pinedo on 07-14-2024 Urine Buprenorphine Qualitative Negative < 200 ng/mL [facility] Urine Oxycodone Screen Negative < 100 ng/mL [facility] Nucleated red blood cell per centageOrdered By: Bharat Pinedo on 07-14-2024 Nucleated RBC/100 WBC (Bld) [Ratio] 0 % 0-5 [facility] Platelet countOrdered By: Francisco Pinedo on 07-14-2024 Platelets (Bld) [#/Vol] 266 10*3/uL 150-450 [facility] Potassium measurement (mass/ volume)Ordered By: Bharat Pinedo on 07-14-2024 Potassium (Unsp spec) [Mass/Vol] 3.8 mmol/L 3.3-5.1 [facility] ,Serum,hCG Quali.on 07-14-2024 HCG, SERUM QUAL Negative Normal [facility] Comment on above: Performed By: #### L 501.9100, L500.2500, L700.6800, L505.5000, L100.0100 ####[facility] [address] [place], [address] Protein Test strip Ql (U)Ord ered By: Bharat Pinedo on 07-14-2024 Protein Ql (U) 30 mg/dl High Negative [facility] Quantitative urine opiates m easurementOrdered By: Bharat Pinedo on 07-14-2024 Opiates Ql (U) Negative < 300 ng/mL [facility] RBC Auto (Bld) [#/Vol]Ordere d By: Bharat Pinedo on 07-14-2024 RBC (Bld) [#/Vol] 4.25 10*6/uL 4.2-5.4 [facility] Screening urine fentanyl suzette surementOrdered By: Bharat Pinedo on 07-14-2024 fentaNYL Screen Ql (U) Negative [facility] Serum beta-hCG test, qualita tiveOrdered By: Bharat Pinedo on 07-14-2024 Beta HCG ( test) Ql Negative [facility] Serum creatinine measurement (mass/volume)Ordered By: Bharat Pinedo on 07-14-2024 Creatinine [Mass/Vol] 0.59 mg/dL Low 0.70-1.20 [facility] Serum glucose measurement (m ass/volume)Ordered By: Bharat Pinedo on 07-14-2024 Glucose [Mass/Vol] 84 mg/dL 70-99 [facility] Serum or plasma calcium riddhi urement (mass/volume)Ordered By: Bharat Pinedo on 07-14-2024 Calcium [Mass/Vol] 9.3 mg/dL 7.6-11.0 [facility] Serum or plasma ethanol riddhi urement (mass/volume)Ordered By: Bharat Pinedo on 07-14-2024 Ethanol [Mass/Vol] 21.7 mg/dL High <10.1 [facility] Comment on above: This test is for med ical purposes only. The legal definition of intoxication varies according to local law. Serum or plasma urea nitroge n measurement (mass/volume)Ordered By: Bharat Pinedo on 07-14-2024 Urea nitrogen [Mass/Vol] 11 mg/dL 4-19 [facility] Sodium levelOrdered By: Sameer Pinedo on 07-14-2024 Sodium [Moles/Vol] 144 mmol/L 133-145 [facility] Squamous epithelial cells de tection in urine sediment by light microscopyOrdered By: Bharat Pinedo on 07-14-2024 Epithelial cells.squamous LM Ql (Urine sed) 0-5 SEEN /hpf 5-10 [facility] Urinalysis, Completeon 07-14 EPI,SQUAMOUS 0-5 SEEN Normal 5-10 [facility] Comment on above: Order Comment: [place] [address]/14/24 KCCLEAN CATCH Performed By: #### L 400.0001 ####[facility] [address] [place], [address] RBC 25-50 SEEN Normal 0-5 [facility] Comment on above: Order Comment: [place] @[place] [address]/14/24 KCCLEAN CATCH Performed By: #### L 400.0001 ####[facility] [address] [place], [address] WBC 0-5 SEEN Normal 0-5 [facility] Comment on above: Order Comment: [place] @[place] [address]/14/24 KCCLEAN CATCH Performed By: #### L 400.0001 ####[facility] [address] [place], [address] BACTERIA 0 SEEN Normal None Seen [facility] Comment on above: Order Comment: [place] [address]/14/24 KCCLEAN CATCH Performed By: #### L 400.0001 ####[facility] [address] [place], [address] Mucus Ql (Urine sed) 0 SEEN Normal [facility] Comment on above: Order Comment: ON @A NALYZER BATCH AT 0715 07/14/24 JAMIE CATCH Performed By: #### L 400.0001 ####[facility] [address] [place], [address] Urine Drug Screen (VISTA)on 07-14-2024 AMPHETAMINES Positive Normal <1000 ng/mL [facility] Comment on above: Result Comment: If c onfirmation testing is needed, a separate order will berequired to send out testing to the reference laboratory. Performed By: #### L 501.9100, L500.2500, L700.6800, L505.5000, L100.0100 ####[facility] [address] [place], [address] BARBITIURATES Negative Normal < 200 ng/mL [facility] Comment on above: Performed By: #### L 501.9100, L500.2500, L700.6800, L505.5000, L100.0100 ####[facility] [address] [place], [address] BENZODIAZIPINE Negative Normal < 200 ng/mL [facility] Comment on above: Performed By: #### L 501.9100, L500.2500, L700.6800, L505.5000, L100.0100 ####[facility] [address] [place], [address] BUP Ur Drug Scr Negative Normal < 200 ng/mL [facility] Comment on above: Performed By: #### L 501.9100, L500.2500, L700.6800, L505.5000, L100.0100 ####[facility] [address] [place], [address] COCAINE Negative Normal < 300 ng/mL [facility] Comment on above: Performed By: #### L 501.9100, L500.2500, L700.6800, L505.5000, L100.0100 ####[facility] [address] [place], [address] Fentanyl Negative Normal [facility] Comment on above: Performed By: #### L 501.9100, L500.2500, L700.6800, L505.5000, L100.0100 ####[facility] [address] [place], [address] METHADONE Negative Normal < 300 ng/mL [facility] Comment on above: Performed By: #### L 501.9100, L500.2500, L700.6800, L505.5000, L100.0100 ####[facility] [address] [place], [address] OPIATES Negative Normal < 300 ng/mL [facility] Comment on above: Performed By: #### L 501.9100, L500.2500, L700.6800, L505.5000, L100.0100 ####[facility] [address] [place], [address] OXYCODONE Negative Normal < 100 ng/mL [facility] Comment on above: Performed By: #### L 501.9100, L500.2500, L700.6800, L505.5000, L100.0100 ####[facility] [address] [place], [address] PCP Negative Normal < 25 ng/mL [facility] Comment on above: Performed By: #### L 501.9100, L500.2500, L700.6800, L505.5000, L100.0100 ####[facility] [address] [place], [address] THC Positive Normal < 50 ng/mL [facility] Comment on above: Result Comment: If c onfirmation testing is needed, a separate order will berequired to send out testing to the reference laboratory. Performed By: #### L 501.9100, L500.2500, L700.6800, L505.5000, L100.0100 ####[facility] [address] [place], [address] Urine benzodiazepine levelOr dered By: Bharat Pinedo on 07-14-2024 Benzodiazepines Ql (U) Negative < 200 ng/mL [facility] Urine clarityOrdered By: Juan Carlos Pinedo on 07-14-2024 Clarity (U) Clear Clear [facility] Urine cocaine levelOrdered B y: Bharat Pinedo on 07-14-2024 Cocaine Ql (U) Negative < 300 ng/mL [facility] Urine color determinationOrd ered By: Bharat Pinedo on 07-14-2024 Color (U) Yellow Yellow [facility] Urine zuhwo-2-wucyranzqjrkxt abinol (THC) measurementOrdered By: Bharat Pinedo on 07-14-2024 Cannabinoids Screen Ql (U) Positive < 50 ng/mL [facility] Comment on above: If confirmation test ing is needed, a separate order will be required to send out testing to the reference laboratory. Urine glucose detectionOrder ed By: Bharat Pinedo on 07-14-2024 Glucose Ql (U) Normal mg/dl Normal [facility] Urine leukocyte esterase det ection by dipstickOrdered By: Bharat Pinedo on 07-14-2024 Leukocyte esterase Test strip Ql (U) Negative Negative [facility] Urine pHOrdered By: Bharat bell on 07-14-2024 pH (U) 7.0 [pH] 5.0 - 8.0 [facility] Urine phencyclidine (PCP) de tectionOrdered By: Bharat Pinedo on 07-14-2024 Phencyclidine Ql (U) Negative < 25 ng/mL [facility] Urine sediment bacteria coun t by microscopy (number/high power field)Ordered By: Bharat Pinedo on 07-14-2024 Bacteria LM.HPF (Urine sed) [#/Area] 0 /[HPF] None Seen [facility] Urine specific gravity measu rementOrdered By: Bharat Pinedo on 07-14-2024 Specific gravity (U) [Rel density] 1.010 1.002-1.03 0 [facility] Urine urobilinogen measureme ntOrdered By: Bharat Pinedo on 07-14-2024 Urobilinogen Ql (U) Normal mg/dl Normal [facility] White blood cell (WBC) count Ordered By: Bharat Pinedo on 07-14-2024 WBC (Bld) [#/Vol] 11.0 10*3/uL 4.4-11.0 [facility] White blood cell countOrdere d By: Bharat Pinedo on 07-14-2024 White blood cell count 0-5 SEEN /hpf 0-5 [facility] 36on 07-12-2024 36 Left a message to return call. [facility] 36on 07-11-2024 36 I sent her allergy medication, blood pressure medications to the pharmacy yesterday. I did refill hydroxyzine which she can use for anxiety as needed. I am not going to be filling the antipsychotic medication which she really needs to get from a psychiatric provider. Please see other encounter-it looks like a provider from the [facility] last prescribed it. I did not prescribe an antibiotic- there is no indication that she needs one. [facility] 36 Name of caller: Malka meier Contact phone number: [phone] Relationship to Patient: Patient Provider: Dr. Booth Practice: [facility] Chief Complaint/Reason for Call: Pt states that her pharmacy did not receive rx for antibiotics and a mental health medication that she spoke with Jumana at her last OV 07/09/24. Pharmacy confirmed: [id number] - [place], [place] - [address] Best time of day caller can be reached: Any Patient advised that office/PCP has 24-48 business hours to return their call: No [facility] 36 Please advise patien t that it looks like Gary Hernandez, psychiatric provider was the last provider to prescribe the olanzapine. I recommend that she reach out to them to get scheduled for follow up. I believe that he is at the [facility]. [facility] [address] [address] [facility] 36 Fax received placed on your desk. [facility] 36on 07-10-2024 36 Called and spoke mandeep h pharmacist at [facility] in [place]-advised to please send over medication list with past refills and providers. Fax number given. [facility] 36on 07-09-2024 36 Please reach out to patient's pharmacy in [place] and see if they have a list of prescriptions most recently prescribed for psychiatric medications along with most recent prescriber [facility] 36 Patient was seen in office today by Farideh [facility] HCG ( test) Ql (U)o n 07-09-2024 Beta HCG ( test) Ql (U) 310302 [facility] Comment on above: [phone] Interpretation and review of laboratory results Normal [facility] th NEGATIVE QC Pass [facility] [employer] POSITIVE QC Pass [facility] [employer] Preg Test, Ur Negative Negative [facility] Office Visiton 07-09-2024 Follow-up visit [id number] Dhaval Moon 2000 F Date Provider Department [place] 07/09/2024 [id number] MCKEON [facility] Family History Problem Relation Age of Onset High Blood Pressure Father No Known Problems Mother Family Status - Relation Status Age at Father Alive Mother Alive Level of Service:00257 [place] OFFICE/OUTPATIENT ESTABLISHED MOD MDM 30 MIN Reason for Visit and Comments: Follow-up [309489] Possible [614107] Medication Check [[id number]] Med Refill [591397] [facility] Progress Noteon 07-09-2024 Progress Note Denies any suicidal or homicidal ideation. Reports currently being without psychiatric provider. Will reach out to her pharmacy to see what most recent prescriptions are for her psychiatric medications which she is not sure of the dosing on. [facility] Progress Note Stable, continue current inhalers [facility] Progress Note Partial remission. Current psychiatric medications unknown. Will reach out to pharmacy to see what most recent prescriptions are. Patient denies having current psychiatric provider [facility] Progress Note Continue Zofran as needed. Currently asymptomatic [facility] Progress Note Controlled. Blood pressure 117/81. Continue current medications losartan 50 mg daily, metoprolol XL 25 mg twice daily Normal [facility] Progress Note Patient was identifi ed by name and Date of . Patient identified by name and date of . Urine specimen cup labeled with patient name and date of . Urine cup given to patient, urine collected from patient. POCT HCG Urine ordered and signed by provider. POCT HCG urine results entered and were sent to provider. Charged Results Entered Normal [facility] Progress Note 07/09/2024 Dhaval Moon (: [...] dosing [facility]. [facility] SUBJECTIVE/OBJECTIVE: HELEN Moon (: 2000) is a 23 y.o. female , Established patient, here for the evaluation of the following chief complaint(s): Follow-up, Possible , Medication Check, and Med Refill Patient presents for follow-up and med check. She reports that she was briefly in and out of rehab for street drug use and most recently left [place] after 2.5 weeks in a treatment center. [...] is currently living with a friend in [place] and reports that she has limited contact [...] rhythm. Pu (more content not included)... Normal [facility] 36on 07-05-2024 36 Left a message to return call. Jumana Kathleen APRN - [place] (Selected Message) 07/03/24 4:29 PM Note This is a psychiatric medication that should be prescribed by a psychiatrist or psychiatric provider. Recommend that she reach out to her last psychiatric provider to get reestablished. Normal [facility] 36on 07-03-2024 36 This is a psychiatri c medication that should be prescribed by a psychiatrist or psychiatric provider. Recommend that she reach out to her last psychiatric provider to get reestablished. Normal [facility] 36 S: Patient spoke mandeep h [facility] nurse regarding medication refill B: Onset [...] denies vaginal bleeding. R: Appt 07/09/24 @ 1291 with Ford Kathleen. Negative responses to COVID screening. Advised patient should arrive 15 minutes early, bring photo ID, ins cards, and medications. Patient understands care advice of [facility] resources such as [phone]. Patient advised medications [...] policy Protocols used: [facility] Absolute lymphocyte countOrd ered By: Tree Crowe on 06-13-2024 Lymphocytes Auto (Unsp spec) [#/Vol] 2.86 10*3/uL 0.83-4.51 [facility] Absolute neutrophil countOrd ered By: Tree Crowe on 06-13-2024 Neutrophils (Bld) [#/Vol] 3.8 10*3/uL 2.0-7.7 [facility] Alcohol, Blood (Medical)-Ser umon 06-13-2024 SERUM ETOH < 10.1 Normal <=10.0 [facility] Comment on above: Result Comment: Hemo lysis Present, Results may be affected.This test is for medical purposes only. The legaldefinition of intoxication varies according to local law. Performed By: #### L 700.6800, L500.4050, L501.9100, L100.0100, L505.5000 ####[facility] [address] [place], [place], [address] Anion gap in Serum or Plasma Ordered By: Tree Crowe on 06-13-2024 Anion gap [Moles/Vol] 11 mmol/L 5-15 [facility] Automated lymphocyte count a s percentage of total leukocytesOrdered By: Tree Crowe on 06-13-2024 Lymphocytes/100 WBC Auto (Unsp spec) 38.9 % - [facility] BUN/creatinine ratioOrdered By: Tree Crowe on 06-13-2024 Urea nitrogen/Creatinine [Mass ratio] 16.4 mg/mg 10- [facility] Basophil percentageOrdered B y: Tree Crowe on 06-13-2024 Basophils/100 WBC (Bld) 0.5 % 0-1 [facility] Bilirubin, totalOrdered By: Tree Crowe on 06-13-2024 Bilirubin [Mass/Vol] 0.77 mg/dL 0.00-1.30 [facility] CBC W/Diff, Automatedon Absolute Lymph 2.86 X10 3/uL Normal 0.83-4.51 [facility] Comment on above: Performed By: #### L 700.6800, L500.4050, L501.9100, L100.0100, L505.5000 ####[facility] [address] [place], [address] Absolute Neut 3.8 X10 3/uL Normal 2.0-7.7 [facility] Comment on above: Performed By: #### L 700.6800, L500.4050, L501.9100, L100.0100, L505.5000 ####[facility] [address] [place], [address] Basophils/100 WBC (Bld) 0.5 % Normal 0-1 [facility] Comment on above: Performed By: #### L 700.6800, L500.4050, L501.9100, L100.0100, L505.5000 ####[facility] [address] [place], [address] Eosinophils/100 WBC (Bld) 2.0 % Normal 0-5 [facility] Comment on above: Performed By: #### L 700.6800, L500.4050, L501.9100, L100.0100, L505.5000 ####[facility] [address] [place], [address] Erythrocyte distribution width (RBC) [Ratio] 13.5 % Normal 11.6-14.6 [facility] Comment on above: Performed By: #### L 700.6800, L500.4050, L501.9100, L100.0100, L505.5000 ####[facility] [address] [place], [address] Hematocrit (Bld) [Volume fraction] 47.4 % High 37-47 [facility] Comment on above: Performed By: #### L 700.6800, L500.4050, L501.9100, L100.0100, L505.5000 ####[facility] [address] [place], [address] Hemoglobin (Bld) [Mass/Vol] 15.7 g/dL High 12.0-15.0 [facility] Comment on above: Performed By: #### L 700.6800, L500.4050, L501.9100, L100.0100, L505.5000 ####[facility] [address] [place], [address] IG% 0.300 Normal 0.0-0.9 [facility] Comment on above: Result Comment: IG% - Immature Granulocytes (promyelocytes, myelocytes andmetamyelocytes) > 1% indicates that a LEFT SHIFT is Present. Performed By: #### L 700.6800, L500.4050, L501.9100, L100.0100, L505.5000 ####[facility] [address] [place], [address] Lymphocytes/100 WBC (Bld) 38.9 % Normal 19-41 [facility] Comment on above: Performed By: #### L 700.6800, L500.4050, L501.9100, L100.0100, L505.5000 ####[facility] [address] [place], [address] MCH (RBC) [Entitic mass] 32.0 pg Normal 27.0-32.0 [facility] Comment on above: Performed By: #### L 700.6800, L500.4050, L501.9100, L100.0100, L505.5000 ####[facility] [address] [place], [address] MCHC (RBC) [Mass/Vol] 33.1 g/dL Normal 32-36 [facility] Comment on above: Performed By: #### L 700.6800, L500.4050, L501.9100, L100.0100, L505.5000 ####[facility] [address] [place], [address] MCV (RBC) [Entitic vol] 96.7 fL Normal 81-[address] [facility] Comment on above: Performed By: #### L 700.6800, L500.4050, L501.9100, L100.0100, L505.5000 ####[facility] [address] [place], [address] Monocytes/100 WBC (Bld) 6.9 % Normal 0-[address] [facility] Comment on above: Performed By: #### L 700.6800, L500.4050, L501.9100, L100.0100, L505.5000 ####[facility] [address] [place], [address] Neutrophils/100 WBC (Bld) 51.4 % Normal 47-70 [facility] Comment on above: Performed By: #### L 700.6800, L500.4050, L501.9100, L100.0100, L505.5000 ####[facility] [address] [place], [address] Nucleated RBC (Bld) [#/Vol] 0 10*3/uL Normal 0-5 [facility] Comment on above: Performed By: #### L 700.6800, L500.4050, L501.9100, L100.0100, L505.5000 ####[facility] [address] [place], [address] Platelet mean volume (Bld) [Entitic vol] 10.6 fL Normal 6.2-12.0 [facility] Comment on above: Performed By: #### L 700.6800, L500.4050, L501.9100, L100.0100, L505.5000 ####[facility] [address] [place], [address] Platelets (Bld) [#/Vol] 312 10*3/uL Normal 150-450 [facility] Comment on above: Performed By: #### L 700.6800, L500.4050, L501.9100, L100.0100, L505.5000 ####[facility] [address] [place], [address] RBC (Bld) [#/Vol] 4.90 10*6/uL Normal 4.2-5.4 [facility] Comment on above: Performed By: #### L 700.6800, L500.4050, L501.9100, L100.0100, L505.5000 ####[facility] [address] [place], [address] RDW SD 47.9 fl High 35.1-43.9 [facility] Comment on above: Performed By: #### L 700.6800, L500.4050, L501.9100, L100.0100, L505.5000 ####[facility] [address] [place], [address] WBC (Bld) [#/Vol] 7.4 10*3/uL Normal 4.4-11.0 [facility] Comment on above: Performed By: #### L 700.6800, L500.4050, L501.9100, L100.0100, L505.5000 ####[facility] [address] [place], [address] Carbon dioxide, total [Moles /volume] in Central venous bloodOrdered By: Tree Crowe on 06-13-2024 CO2 [Moles/Vol] 21.2 mmol/L 21.0-32.0 [facility] Chloride assayOrdered By: Perez Crowe on 06-13-2024 Chloride [Moles/Vol] 105 mmol/L 98-108 [facility] Comprehensive Metabolic Prof ilon 06-13-2024 Albumin [Mass/Vol] 3.9 g/dL Normal 3.5-5.0 [facility] Comment on above: Performed By: #### L 700.6800, L500.4050, L501.9100, L100.0100, L505.5000 ####[facility] [address] [place], [address] Albumin/Globulin [Mass ratio] 1.0 {ratio} Normal 0.9-2.4 [facility] Comment on above: Performed By: #### L 700.6800, L500.4050, L501.9100, L100.0100, L505.5000 ####[facility] [address] [place], [address] ALK PHOS 92 U/L Normal 35-104 [facility] Comment on above: Performed By: #### L 700.6800, L500.4050, L501.9100, L100.0100, L505.5000 ####[facility] [address] [place], [address] ALT [Catalytic activity/Vol] 9 U/L Normal <=34 [facility] Comment on above: Performed By: #### L 700.6800, L500.4050, L501.9100, L100.0100, L505.5000 ####[facility] [address] [place], [address] AST [Catalytic activity/Vol] 22 U/L Normal <=31 [facility] Comment on above: Result Comment: Hemo lysis present, Results??could be affected.?? Performed By: #### L 700.6800, L500.4050, L501.9100, L100.0100, L505.5000 ####[facility] [address] [place], [address] Bilirubin [Mass/Vol] 0.77 mg/dL Normal 0.00-1.30 [facility] Comment on above: Performed By: #### L 700.6800, L500.4050, L501.9100, L100.0100, L505.5000 ####[facility] [address] [place], [address] BUN/CRE 16.4 RATIO Normal 10-20 [facility] Comment on above: Performed By: #### L 700.6800, L500.4050, L501.9100, L100.0100, L505.5000 ####[facility] [address] [place], [address] Calcium [Mass/Vol] 9.0 mg/dL Normal 7.6-11.0 [facility] Comment on above: Performed By: #### L 700.6800, L500.4050, L501.9100, L100.0100, L505.5000 ####[facility] [address] [place], [address] Chloride [Moles/Vol] 105 mmol/L Normal 98-108 [facility] Comment on above: Performed By: #### L 700.6800, L500.4050, L501.9100, L100.0100, L505.5000 ####[facility] [address] [place], [address] CO2 [Moles/Vol] 21.2 mmol/L Normal 21.0-32.0 [facility] Comment on above: Performed By: #### L 700.6800, L500.4050, L501.9100, L100.0100, L505.5000 ####[facility] [address] [place], [address] Creatinine [Mass/Vol] 0.62 mg/dL Low 0.70-1.20 [facility] Comment on above: Performed By: #### L 700.6800, L500.4050, L501.9100, L100.0100, L505.5000 ####[facility] [address] [place], [address] ECRCL 149.75 ml/min Normal 50-250 [facility] Comment on above: Performed By: #### L 700.6800, L500.4050, L501.9100, L100.0100, L505.5000 ####[facility] [address] [place], [address] GAP 11 Normal 5-15 [facility] Comment on above: Performed By: #### L 700.6800, L500.4050, L501.9100, L100.0100, L505.5000 ####[facility] [address] [place], [address] GFR/1.73 sq M.predicted among non-blacks MDRD (S/P/Bld) [Vol rate/Area] 128 mL/min/{1.73_m2} Normal >60 [facility] Comment on above: Result Comment: mL/m in/1.73m2 CKD-EPI Creatinine Equation (2020) Performed By: #### L 700.6800, L500.4050, L501.9100, L100.0100, L505.5000 ####[facility] [address] [place], [address] Globulin (S) [Mass/Vol] 3.7 g/dL Normal 2.2-4.[address] [facility] Comment on above: Performed By: #### L 700.6800, L500.4050, L501.9100, L100.0100, L505.5000 ####[facility] [address] [place], [address] Glucose [Mass/Vol] 103 mg/dL High 70-99 [facility] Comment on above: Performed By: #### L 700.6800, L500.4050, L501.9100, L100.0100, L505.5000 ####[facility] [address] [place], [address] Potassium [Moles/Vol] 4.7 mmol/L Normal 3.3-5.1 [facility] Comment on above: Result Comment: Hemo lysis present, Results??could be affected.?? Performed By: #### L 700.6800, L500.4050, L501.9100, L100.0100, L505.5000 ####[facility] [address] [place], [address] Sodium [Moles/Vol] 138 mmol/L Normal 133-145 [facility] Comment on above: Performed By: #### L 700.6800, L500.4050, L501.9100, L100.0100, L505.5000 ####[facility] [address] [place], [address] T PROT 7.6 g/dL Normal 5.9-8.4 [facility] Comment on above: Performed By: #### L 700.6800, L500.4050, L501.9100, L100.0100, L505.5000 ####[facility] [address] [place], [address] Urea nitrogen [Mass/Vol] 10 mg/dL Normal 4-19 [facility] Comment on above: Performed By: #### L 700.6800, L500.4050, L501.9100, L100.0100, L505.5000 ####[facility] [address] [place], [address] Emergency Department Summary on 06-13-2024 Emergency Department Summary Normal [facility] Emergency Department Summary Normal [facility] Eosinophil percentageOrdered By: Tree Crowe on 06-13-2024 Eosinophils/100 WBC (Bld) 2.0 % 0-5 [facility] Erythrocyte distribution wid th ratioOrdered By: Tree Crowe on 06-13-2024 Erythrocyte distribution width (RBC) [Ratio] 13.5 % 11.6-14.6 [facility] Erythrocyte distribution wid th standard deviationOrdered By: Tree Crowe on 06-13-2024 Erythrocyte distribution width (RBC) [Ratio] 47.9 fl High 35.1-43.9 [facility] Glomerular filtration rate ( GFR) estimation/1.73 sq m using serum, plasma, or whole bOrdered By: Tree Crowe on 06-13-2024 GFR/1.73 sq M.predicted among non-blacks MDRD (S/P/Bld) [Vol rate/Area] 128 mL/min/{1.73_m2} >60 [facility] Comment on above: mL/min/1.73m2 CKD-EP I Creatinine Equation (2020) Hematocrit Auto (Bld) [Volum e fraction]Ordered By: Tree Crowe on 06-13-2024 Hematocrit (Bld) [Volume fraction] 47.4 % High 37-47 [facility] Hemoglobin measurementOrdere d By: Tree Crowe on 06-13-2024 Hemoglobin (Bld) [Mass/Vol] 15.7 g/dL High 12.0-15.0 [facility] Immature granulocytes/100 WB C Auto (Bld)Ordered By: Tree Crowe on 06-13-2024 Immature granulocytes/100 WBC (Bld) 0.300 % 0.0-0.9 [facility] Comment on above: IG% - Immature Granu locytes (promyelocytes, myelocytes and metamyelocytes) > 1% indicates that a LEFT SHIFT is Present. Laboratory - Chemistry and C hemistry - challengeOrdered By: Tree Crowe on 06-13-2024 AST [Catalytic activity/Vol] 22 U/L <32 [facility] Comment on above: Hemolysis present, R esults could be affected. MCV (mean corpuscular volume ) determinationOrdered By: Tree Crowe on 06-13-2024 MCV (RBC) [Entitic vol] 96.7 fL 81-[address] [facility] Mean corpuscular hemoglobin (MCH) determinationOrdered By: Tree Crowe on 06-13-2024 MCH (RBC) [Entitic mass] 32.0 pg 27.0-32.0 [facility] Mean corpuscular hemoglobin concentration (MCHC) determinationOrdered By: Tree Crowe on 06-13-2024 MCHC (RBC) [Mass/Vol] 33.1 g/dL 32-36 [facility] Mean platelet volume determi nationOrdered By: Tree Crowe on 06-13-2024 Platelet mean volume (Bld) [Entitic vol] 10.6 fL 6.2-12.0 [facility] Monocyte percentageOrdered B y: Tree Crowe on 06-13-2024 Monocytes/100 WBC (Bld) 6.9 % 0-[address] [facility] Neutrophil percentageOrdered By: Tree Crowe on 06-13-2024 Neutrophils/100 WBC (Bld) 51.4 % 47-70 [facility] Nucleated red blood cell per centageOrdered By: Tree Crowe on 06-13-2024 Nucleated RBC/100 WBC (Bld) [Ratio] 0 % 0-5 [facility] Platelet countOrdered By: Perez Crowe on 06-13-2024 Platelets (Bld) [#/Vol] 312 10*3/uL 150-450 [facility] Potassium measurement (mass/ volume)Ordered By: Tree Crowe on 06-13-2024 Potassium (Unsp spec) [Mass/Vol] 4.7 mmol/L 3.3-5.1 [facility] Comment on above: Hemolysis present, R esults could be affected. ,Serum,hCG Quali.on 06-13-2024 HCG, SERUM QUAL Negative Normal [facility] Comment on above: Performed By: #### L 700.6800, L500.4050, L501.9100, L100.0100, L505.5000 ####[facility] [address] [place], [place], [id number] RBC Auto (Bld) [#/Vol]Ordere d By: Tree Crowe on 06-13-2024 RBC (Bld) [#/Vol] 4.90 10*6/uL 4.2-5.4 [facility] Serum beta-hCG test, qualita tiveOrdered By: Tree Crowe on 06-13-2024 Beta HCG ( test) Ql Negative [facility] Serum creatinine measurement (mass/volume)Ordered By: Tree Crowe on 06-13-2024 Creatinine [Mass/Vol] 0.62 mg/dL Low 0.70-1.20 [facility] Serum globulin measurementOr dered By: Tree Crowe on 06-13-2024 Globulin (S) [Mass/Vol] 3.7 g/dL 2.2-4.2 [facility] Serum glucose measurement (m ass/volume)Ordered By: Tree Crowe on 06-13-2024 Glucose [Mass/Vol] 103 mg/dL High 70-99 [facility] Serum or plasma alanine sheffield otransferase (ALT) measurementOrdered By: Tree Crowe on 06-13-2024 ALT [Catalytic activity/Vol] 9 U/L <35 [facility] Serum or plasma albumin riddhi urement (mass/volume)Ordered By: Tree Crowe on 06-13-2024 Albumin [Mass/Vol] 3.9 g/dL 3.5-5.0 [facility] Serum or plasma albumin/glob ulin mass ratioOrdered By: Tree Crowe on 06-13-2024 Albumin/Globulin [Mass ratio] 1.0 {ratio} 0.9-2.4 [facility] Serum or plasma alkaline sandra sphatase measurementOrdered By: Tree Crowe on 06-13-2024 ALP [Catalytic activity/Vol] 92 U/L 35-104 [facility] Serum or plasma calcium riddhi urement (mass/volume)Ordered By: rTee Crowe on 06-13-2024 Calcium [Mass/Vol] 9.0 mg/dL 7.6-11.0 [facility] Serum or plasma ethanol riddhi urement (mass/volume)Ordered By: Tree Crowe on 06-13-2024 Ethanol [Mass/Vol] mg/dL <10.1 [facility] Comment on above: Hemolysis Present, R esults may be affected.This test is for medical purposes only. The legal definition of intoxication varies according to local law. Serum or plasma urea nitroge n measurement (mass/volume)Ordered By: Tree Crowe on 06-13-2024 Urea nitrogen [Mass/Vol] 10 mg/dL 4-19 [facility] Sodium levelOrdered By: Tree Crowe on 06-13-2024 Sodium [Moles/Vol] 138 mmol/L 133-145 [facility] Total proteinOrdered By: Jason Crowe on 06-13-2024 Protein [Mass/Vol] 7.6 g/dL 5.9-8.4 [facility] Urine Drug Screen (VISTA)on 06-13-2024 AMPHETAMINES Normal <1000 ng/mL [facility] Comment on above: Result Comment: [facility] DEPARTED ER. Performed By: #### L 700.6800, L500.4050, L501.9100, L100.0100, L505.5000 ####[facility] [address] [place], [place], [id number] BARBITIURATES Normal < 200 ng/mL [facility] Comment on above: Result Comment: [facility] DEPARTED ER. Performed By: #### L 700.6800, L500.4050, L501.9100, L100.0100, L505.5000 ####[facility] [address] [place], [address] BENZODIAZIPINE Normal < 200 ng/mL [facility] Comment on above: Result Comment: [facility] DEPARTED ER. Performed By: #### L 700.6800, L500.4050, L501.9100, L100.0100, L505.5000 ####[facility] [address] [place], [address] BUP Ur Drug Scr Normal < 200 ng/mL [facility] Comment on above: Result Comment: [facility] DEPARTED ER. Performed By: #### L 700.6800, L500.4050, L501.9100, L100.0100, L505.5000 ####[facility] [address] [facility] [address] COCAINE Normal < 300 ng/mL [facility] Comment on above: Result Comment: [facility] DEPARTED ER. Performed By: #### L 700.6800, L500.4050, L501.9100, L100.0100, L505.5000 ####[facility] [address] [place] [address] Fentanyl Normal [facility] Comment on above: Result Comment: [facility] DEPARTED ER. Performed By: #### L 700.6800, L500.4050, L501.9100, L100.0100, L505.5000 ####[facility] [address] [place] [address] METHADONE Normal < 300 ng/mL [facility] Comment on above: Result Comment: [facility] DEPARTED ER. Performed By: #### L 700.6800, L500.4050, L501.9100, L100.0100, L505.5000 ####[facility] [address] [place] [address] OPIATES Normal < 300 ng/mL [facility] Comment on above: Result Comment: [facility] DEPARTED ER. Performed By: #### L 700.6800, L500.4050, L501.9100, L100.0100, L505.5000 ####[facility] [address] [place] [address] OXYCODONE Normal < 100 ng/mL [facility] Comment on above: Result Comment: [facility] DEPARTED ER. Performed By: #### L 700.6800, L500.4050, L501.9100, L100.0100, L505.5000 ####[facility] [address] [place], [address] PCP Normal < 25 ng/mL [facility] Comment on above: Result Comment: [facility] DEPARTED ER. Performed By: #### L 700.6800, L500.4050, L501.9100, L100.0100, L505.5000 ####[facility] [address] [place], [address] THC Normal < 50 ng/mL [facility] Comment on above: Result Comment: [facility] DEPARTED ER. Performed By: #### L 700.6800, L500.4050, L501.9100, L100.0100, L505.5000 ####[facility] [address] [place], [address] White blood cell (WBC) count Ordered By: Tree Crowe on 06-13-2024 WBC (Bld) [#/Vol] 7.4 10*3/uL 4.4-11.0 [facility] Absolute lymphocyte countOrd ered By: Filippo Fuentes on 06-02-2024 Lymphocytes Auto (Unsp spec) [#/Vol] 2.78 10*3/uL 0.83-4.51 [facility] Absolute neutrophil countOrd ered By: Filippo Fuentes on 06-02-2024 Neutrophils (Bld) [#/Vol] 5.9 10*3/uL 2.0-7.7 [facility] Amphetamine detection with 1 000 ng/mL as cutoffOrdered By: Filippo Fuentes on 06-02-2024 Amphetamines Screen method >1000 ng/mL Ql (U) Positive <1000 ng/mL [facility] Comment on above: If confirmation test ing is needed, a separate order will be required to send out testing to the reference laboratory. Amphetamines Screen method >1000 ng/mL Ql (U) Negative < 200 ng/mL [facility] Amphetamines Screen method > 1000 ng/mL Ql (U)Ordered By: Filippo Fuentes on 06-02-2024 Amphetamines Ql (U) Positive <1000 ng/mL [facility] Comment on above: If confirmation test ing is needed, a separate order will be required to send out testing to the reference laboratory. Urine Barbiturates Screen Negative < 200 ng/mL [facility] Automated lymphocyte count a s percentage of total leukocytesOrdered By: Filippo Fuentes on 06-02-2024 Lymphocytes/100 WBC Auto (Unsp spec) 29.6 % 19-41 [facility] Basophil percentageOrdered B y: Filippo Fuentes on 06-02-2024 Basophils/100 WBC (Bld) 0.3 % 0-1 [facility] Bilirubin Test strip Ql (U)O rdered By: Filippo Fuentes on 06-02-2024 Bilirubin Ql (U) 1 mg/dL High Negative [facility] Comment on above: COLOR OF URINE MAY A FFECT DIPSTICK RESULTS. CBC W/Diff, Automatedon 05-15 Absolute Lymph 2.78 X10 3/uL Normal 0.83-4.51 [facility] Comment on above: Performed By: #### L 100.0100, L500.4050, L700.6800, L505.5000 ####[facility] [address] [place], [address] Absolute Neut 5.9 X10 3/uL Normal 2.0-7.7 [facility] Comment on above: Performed By: #### L 100.0100, L500.4050, L700.6800, L505.5000 ####[facility] [address] [place], [address] Basophils/100 WBC (Bld) 0.3 % Normal 0-1 [facility] Comment on above: Performed By: #### L 100.0100, L500.4050, L700.6800, L505.5000 ####[facility] [address] [place], [address] Eosinophils/100 WBC (Bld) 0.1 % Normal 0-5 [facility] Comment on above: Performed By: #### L 100.0100, L500.4050, L700.6800, L505.5000 ####[facility] [address] [place], [address] Erythrocyte distribution width (RBC) [Ratio] 13.5 % Normal 11.6-14.6 [facility] Comment on above: Performed By: #### L 100.0100, L500.4050, L700.6800, L505.5000 ####[facility] [address] [place], [address] Hematocrit (Bld) [Volume fraction] 47.4 % High 37-47 [facility] Comment on above: Performed By: #### L 100.0100, L500.4050, L700.6800, L505.5000 ####[facility] [address] [place], [address] Hemoglobin (Bld) [Mass/Vol] 15.8 g/dL High 12.0-15.0 [facility] Comment on above: Performed By: #### L 100.0100, L500.4050, L700.6800, L505.5000 ####[facility] [address] [place], [address] IG% 0.100 Normal 0.0-0.9 [facility] Comment on above: Result Comment: IG% - Immature Granulocytes (promyelocytes, myelocytes andmetamyelocytes) > 1% indicates that a LEFT SHIFT is Present. Performed By: #### L 100.0100, L500.4050, L700.6800, L505.5000 ####[facility] [address] [place], [address] Lymphocytes/100 WBC (Bld) 29.6 % Normal 19-41 [facility] Comment on above: Performed By: #### L 100.0100, L500.4050, L700.6800, L505.5000 ####[facility] [address] [place], [address] MCH (RBC) [Entitic mass] 31.9 pg Normal 27.0-32.0 [facility] Comment on above: Performed By: #### L 100.0100, L500.4050, L700.6800, L505.5000 ####[facility] [address] [place], [address] MCHC (RBC) [Mass/Vol] 33.3 g/dL Normal 32-36 [facility] Comment on above: Performed By: #### L 100.0100, L500.4050, L700.6800, L505.5000 ####[facility] [address] [place], [address] MCV (RBC) [Entitic vol] 95.8 fL Normal 81-[address] [facility] Comment on above: Performed By: #### L 100.0100, L500.4050, L700.6800, L505.5000 ####[facility] [address] [place], [address] Monocytes/100 WBC (Bld) 6.9 % Normal 0-[address] [facility] Comment on above: Performed By: #### L 100.0100, L500.4050, L700.6800, L505.5000 ####[facility] [address] [place], [address] Neutrophils/100 WBC (Bld) 63.0 % Normal 47-70 [facility] Comment on above: Performed By: #### L 100.0100, L500.4050, L700.6800, L505.5000 ####[facility] [address] [place], [address] Nucleated RBC (Bld) [#/Vol] 0 10*3/uL Normal 0-5 [facility] Comment on above: Performed By: #### L 100.0100, L500.4050, L700.6800, L505.5000 ####[facility] [address] [place], [address] Platelet mean volume (Bld) [Entitic vol] 9.5 fL Normal 6.2-12.0 [facility] Comment on above: Performed By: #### L 100.0100, L500.4050, L700.6800, L505.5000 ####[facility] [address] [place], [address] Platelets (Bld) [#/Vol] 319 10*3/uL Normal 150-450 [facility] Comment on above: Performed By: #### L 100.0100, L500.4050, L700.6800, L505.5000 ####[facility] [address] [place], [address] RBC (Bld) [#/Vol] 4.95 10*6/uL Normal 4.2-5.4 [facility] Comment on above: Performed By: #### L 100.0100, L500.4050, L700.6800, L505.5000 ####[facility] [address] [place], [address] RDW SD 47.1 fl High 35.1-43.9 [facility] Comment on above: Performed By: #### L 100.0100, L500.4050, L700.6800, L505.5000 ####[facility] [address] [place], [address] WBC (Bld) [#/Vol] 9.4 10*3/uL Normal 4.4-11.0 [facility] Comment on above: Performed By: #### L 100.0100, L500.4050, L700.6800, L505.5000 ####[facility] [address] [place], [address] Comprehensive Metabolic Prof ilon 06-02-2024 ALB Normal 3.5-5.0 [facility] Comment on above: Result Comment: This specimen has been REJECTED due to Laboratory criteria:Hemolyzed.ED STAFF has been notified of need of recollection.06/02/24 1447 Mary R Stoner Performed By: #### L 100.0100, L500.4050, L700.6800, L505.5000 ####[facility] [address] [place], [address] ALK PHOS Normal 35-104 [facility] Comment on above: Result Comment: This specimen has been REJECTED due to Laboratory criteria:Hemolyzed.ED STAFF has been notified of need of recollection.06/02/241446 Mary R Stoner Performed By: #### L 100.0100, L500.4050, L700.6800, L505.5000 ####[facility] [address] [place], [address] ALT Normal <=34 [facility] Comment on above: Result Comment: This specimen has been REJECTED due to Laboratory criteria:Hemolyzed.ED STAFF has been notified of need of recollection.06/02/241446 Mary R Stoner Performed By: #### L 100.0100, L500.4050, L700.6800, L505.5000 ####[facility] [address] [place], [address] AST Normal <=31 [facility] Comment on above: Result Comment: This specimen has been REJECTED due to Laboratory criteria:Hemolyzed.ED STAFF has been notified of need of recollection.06/02/247 Mary R Stoner Performed By: #### L 100.0100, L500.4050, L700.6800, L505.5000 ####[facility] [address] [place], [address] BUN Normal 4-19 [facility] Comment on above: Result Comment: This specimen has been REJECTED due to Laboratory criteria:Hemolyzed.ED STAFF has been notified of need of recollection.06/02/241446 Mary R Stoner Performed By: #### L 100.0100, L500.4050, L700.6800, L505.5000 ####[facility] [address] [place], [address] BUN/CRE Normal 10-20 [facility] Comment on above: Result Comment: This specimen has been REJECTED due to Laboratory criteria:Hemolyzed.ED STAFF has been notified of need of recollection.06/02/24 144 Mary R Stoner Performed By: #### L 100.0100, L500.4050, L700.6800, L505.5000 ####[facility] [address] [place], [address] Calcium Normal 7.6-11.0 [facility] Comment on above: Result Comment: This specimen has been REJECTED due to Laboratory criteria:Hemolyzed.ED STAFF has been notified of need of recollection.06/02/241446 Mary R Stoner Performed By: #### L 100.0100, L500.4050, L700.6800, L505.5000 ####[facility] [address] [place], [address] CL Normal 98-108 [facility] Comment on above: Result Comment: This specimen has been REJECTED due to Laboratory criteria:Hemolyzed.ED STAFF has been notified of need of recollection.06/02/241446 Mary R Stoner Performed By: #### L 100.0100, L500.4050, L700.6800, L505.5000 ####[facility] [address] [place], [address] CO2 Normal 21.0-32.0 [facility] Comment on above: Result Comment: This specimen has been REJECTED due to Laboratory criteria:Hemolyzed.ED STAFF has been notified of need of recollection.06/02/24 1447 Mary R Stoner Performed By: #### L 100.0100, L500.4050, L700.6800, L505.5000 ####[facility] [address] [place], [address] CREAT,SERUM Normal 0.70-1.20 [facility] Comment on above: Result Comment: This specimen has been REJECTED due to Laboratory criteria:Hemolyzed.ED STAFF has been notified of need of recollection.06/02/24 1447 Mary R Stoner Performed By: #### L 100.0100, L500.4050, L700.6800, L505.5000 ####[facility] [address] [place], [address] eGFR Normal >60 [facility] Comment on above: Result Comment: This specimen has been REJECTED due to Laboratory criteria:Hemolyzed.ED STAFF has been notified of need of recollection.06/02/241446 Mary R Stoner Performed By: #### L 100.0100, L500.4050, L700.6800, L505.5000 ####[facility] [address] [place], [address] GAP Normal 5-15 [facility] Comment on above: Result Comment: This specimen has been REJECTED due to Laboratory criteria:Hemolyzed.ED STAFF has been notified of need of recollection.06/02/247 Mary R Stoner Performed By: #### L 100.0100, L500.4050, L700.6800, L505.5000 ####[facility] [address] [place], [address] GLU Normal 70-99 [facility] Comment on above: Result Comment: This specimen has been REJECTED due to Laboratory criteria:Hemolyzed.ED STAFF has been notified of need of recollection.06/02/24 1447 Mary R Stoner Performed By: #### L 100.0100, L500.4050, L700.6800, L505.5000 ####[facility] [address] [place], [address] Potassium Normal 3.3-5.1 [facility] Comment on above: Result Comment: This specimen has been REJECTED due to Laboratory criteria:Hemolyzed.ED STAFF has been notified of need of recollection.06/02/241446 Mary R Stoner Performed By: #### L 100.0100, L500.4050, L700.6800, L505.5000 ####[facility] [address] [place], [address] T BILI Normal 0.00-1.30 [facility] Comment on above: Result Comment: This specimen has been REJECTED due to Laboratory criteria:Hemolyzed.ED STAFF has been notified of need of recollection.06/02/241446 Mary R Stoner Performed By: #### L 100.0100, L500.4050, L700.6800, L505.5000 ####[facility] [address] [place], [address] T PROT Normal 5.9-8.4 [facility] Comment on above: Result Comment: This specimen has been REJECTED due to Laboratory criteria:Hemolyzed.ED STAFF has been notified of need of recollection.06/02/241446 Mary R Stoner Performed By: #### L 100.0100, L500.4050, L700.6800, L505.5000 ####[facility] [address] [place], [address] Comprehensive Metabolic Profil Normal 133-145 [facility] Comment on above: Result Comment: This specimen has been REJECTED due to Laboratory criteria:Hemolyzed.ED STAFF has been notified of need of recollection.06/02/241446 Mary R Stoner Performed By: #### L 100.0100, L500.4050, L700.6800, L505.5000 ####[facility] [address] [place], [address] ALB Normal 3.5-5.0 [facility] Comment on above: Order Comment: REDRA W. PREVIOUS SPECIMEN REJECTED DUE TOSPECIMEN BEING HEMOLYZED. 06/02/24 1448 Mary R Stoner. Result Comment: OSVALDO ENT DEPARTED ER. Performed By: #### L 500.4050 ####[facility] [address] [place], [address] ALK PHOS Normal 35-104 [facility] Comment on above: Order Comment: REDRA W. PREVIOUS SPECIMEN REJECTED DUE TOSPECIMEN BEING HEMOLYZED. 06/02/24 1448 Mary R Stoner. Result Comment: OSVALDO ENT DEPARTED ER. Performed By: #### L 500.4050 ####[facility] [address] [place], [address] ALT Normal <=34 [facility] Comment on above: Order Comment: REDRA W. PREVIOUS SPECIMEN REJECTED DUE TOSPECIMEN BEING HEMOLYZED. 06/02/24 1448 Mary R Stoner. Result Comment: OSVALDO ENT DEPARTED ER. Performed By: #### L 500.4050 ####[facility] [address] [place], [address] AST Normal <=31 [facility] Comment on above: Order Comment: REDRA W. PREVIOUS SPECIMEN REJECTED DUE TOSPECIMEN BEING HEMOLYZED. 06/02/24 1448 Mary R Stoner. Result Comment: OSVALDO ENT DEPARTED ER. Performed By: #### L 500.4050 ####[facility] [address] [place], [address] BUN Normal 4-19 [facility] Comment on above: Order Comment: REDRA W. PREVIOUS SPECIMEN REJECTED DUE TOSPECIMEN BEING HEMOLYZED. 06/02/24 1448 Mary R Stoner. Result Comment: OSVALDO ENT DEPARTED ER. Performed By: #### L 500.4050 ####[facility] [address] [place], [address] BUN/CRE Normal 10-20 [facility] Comment on above: Order Comment: REDRA W. PREVIOUS SPECIMEN REJECTED DUE TOSPECIMEN BEING HEMOLYZED. 06/02/24 1448 Mary Reagan. Result Comment: OSVALDO ENT DEPARTED ER. Performed By: #### L 500.4050 ####[facility] [address] [place], [address] Calcium Normal 7.6-11.0 [facility] Comment on above: Order Comment: REDRA W. PREVIOUS SPECIMEN REJECTED DUE TOSPECIMEN BEING HEMOLYZED. 06/02/24 1448 Mary Reagan. Result Comment: OSVALDO ENT DEPARTED ER. Performed By: #### L 500.4050 ####[facility] [address] [place], [address] CL Normal 98-108 [facility] Comment on above: Order Comment: REDRA W. PREVIOUS SPECIMEN REJECTED DUE TOSPECIMEN BEING HEMOLYZED. 06/02/24 1448 Mary Reagan. Result Comment: OSVALDO ENT DEPARTED ER. Performed By: #### L 500.4050 ####[facility] [address] [place], [address] CO2 Normal 21.0-32.0 [facility] Comment on above: Order Comment: REDRA W. PREVIOUS SPECIMEN REJECTED DUE TOSPECIMEN BEING HEMOLYZED. 06/02/24 1448 Mary Metzr. Result Comment: OSVALDO ENT DEPARTED ER. Performed By: #### L 500.4050 ####[facility] [address] [place], [address] CREAT,SERUM Normal 0.70-1.20 [facility] Comment on above: Order Comment: REDRA W. PREVIOUS SPECIMEN REJECTED DUE TOSPECIMEN BEING HEMOLYZED. 06/02/24 1448 Mary Metzr. Result Comment: OSVALDO ENT DEPARTED ER. Performed By: #### L 500.4050 ####[facility] [address] [place], [address] eGFR Normal >60 [facility] Comment on above: Order Comment: REDRA W. PREVIOUS SPECIMEN REJECTED DUE TOSPECIMEN BEING HEMOLYZED. 06/02/24 1448 Mary Reagan. Result Comment: OSVALDO ENT DEPARTED ER. Performed By: #### L 500.4050 ####[facility] [address] [place], [address] GAP Normal 5-15 [facility] Comment on above: Order Comment: REDRA W. PREVIOUS SPECIMEN REJECTED DUE TOSPECIMEN BEING HEMOLYZED. 06/02/24 1448 Mary Metzr. Result Comment: OSVALDO ENT DEPARTED ER. Performed By: #### L 500.4050 ####[facility] [address] [place], [address] GLU Normal 70-99 [facility] Comment on above: Order Comment: REDRA W. PREVIOUS SPECIMEN REJECTED DUE TOSPECIMEN BEING HEMOLYZED. 06/02/24 1448 Mary Reagan. Result Comment: OSVALDO ENT DEPARTED ER. Performed By: #### L 500.4050 ####[facility] [address] [place], [address] Potassium Normal 3.3-5.1 [facility] Comment on above: Order Comment: REDRA W. PREVIOUS SPECIMEN REJECTED DUE TOSPECIMEN BEING HEMOLYZED. 06/02/24 1448 Mary Metzr. Result Comment: OSVALDO ENT DEPARTED ER. Performed By: #### L 500.4050 ####[facility] [address] [place], [address] T BILI Normal 0.00-1.30 [facility] Comment on above: Order Comment: REDRA W. PREVIOUS SPECIMEN REJECTED DUE TOSPECIMEN BEING HEMOLYZED. 06/02/24 1448 Mary Metzr. Result Comment: OSVALDO ENT DEPARTED ER. Performed By: #### L 500.4050 ####[facility] [address] [place], [address] T PROT Normal 5.9-8.4 [facility] Comment on above: Order Comment: REDRA W. PREVIOUS SPECIMEN REJECTED DUE TOSPECIMEN BEING HEMOLYZED. 06/02/24 1448 Mary Reagan. Result Comment: OSVALDO ENT DEPARTED ER. Performed By: #### L 500.4050 ####[facility] [address] [place], [address] Comprehensive Metabolic Profil Normal 133-145 [facility] Comment on above: Order Comment: REDRA W. PREVIOUS SPECIMEN REJECTED DUE TOSPECIMEN BEING HEMOLYZED. 06/02/24 1448 Mary Reagan. Result Comment: OSVALDO ENT DEPARTED ER. Performed By: #### L 500.4050 ####[facility] [address] [place], [place], [address] Emergency Department Summary on 06-02-2024 Emergency Department Summary Normal [facility] Eosinophil percentageOrdered By: Filippo Fuentes on 06-02-2024 Eosinophils/100 WBC (Bld) 0.1 % 0-5 [facility] Epithelial cells.squamous LM Ql (Urine sed)Ordered By: Filippo Fuentes on 06-02-2024 Epithelial cells.squamous LM.HPF (Urine sed) [#/Area] 0 /[HPF] 5-10 [facility] Erythrocyte distribution wid th (RBC) [Ratio]Ordered By: Filippo Fuentes on 06-02-2024 Erythrocyte distribution width (RBC) [Entitic vol] 47.1 fL High 35.1-43.9 [facility] Erythrocyte distribution wid th ratioOrdered By: Filippo Fuentes on 06-02-2024 Erythrocyte distribution width (RBC) [Ratio] 13.5 % 11.6-14.6 [facility] Erythrocyte distribution wid th standard deviationOrdered By: Filippo Fuentes on 06-02-2024 Erythrocyte distribution width (RBC) [Ratio] 47.1 fl High 35.1-43.9 [facility] Glucose Ql (U)Ordered By: Ug o Fuentes on 06-02-2024 Urine Glucose (UA) Normal mg/dl Normal [facility] Hematocrit Auto (Bld) [Volum e fraction]Ordered By: Filippo Fuentes on 06-02-2024 Hematocrit (Bld) [Volume fraction] 47.4 % High 37-47 [facility] Hemoglobin measurementOrdere d By: Filippo Fuentes on 06-02-2024 Hemoglobin (Bld) [Mass/Vol] 15.8 g/dL High 12.0-15.0 [facility] Immature granulocytes/100 WB C Auto (Bld)Ordered By: Filippo Fuentes on 06-02-2024 Immature granulocytes/100 WBC (Bld) 0.100 % 0.0-0.9 [facility] Comment on above: IG% - Immature Granu locytes (promyelocytes, myelocytes and metamyelocytes) > 1% indicates that a LEFT SHIFT is Present. Ketones Test strip Ql (U)Ord ered By: Filippo Fuentes on 06-02-2024 Ketones Ql (U) 15 mg/dl High Negative [facility] Lymphocytes Auto (Unsp spec) [#/Vol]Ordered By: Filippo Fuentes on 06-02-2024 Lymphocytes (Bld) [#/Vol] 2.78 10*3/uL 0.83-4.5 1 [facility] Lymphocytes/100 WBC Auto (Un sp spec)Ordered By: Filippo Fuentes on 06-02-2024 Lymphocytes/100 WBC (Bld) 29.6 % 19-41 [facility] MCV (mean corpuscular volume ) determinationOrdered By: Filippo Fuentes on 06-02-2024 MCV (RBC) [Entitic vol] 95.8 fL 81-99 [facility] Mean corpuscular hemoglobin (MCH) determinationOrdered By: Filippo Fuentes on 06-02-2024 MCH (RBC) [Entitic mass] 31.9 pg 27.0-32.0 [facility] Mean corpuscular hemoglobin concentration (MCHC) determinationOrdered By: Filippo Fuentes on 06-02-2024 MCHC (RBC) [Mass/Vol] 33.3 g/dL 32-36 [facility] Mean platelet volume determi nationOrdered By: Filippo Fuentes on 06-02-2024 Platelet mean volume (Bld) [Entitic vol] 9.5 fL 6.2-12.0 [facility] Methadone, urineOrdered By: Filippo Fuentes on 06-02-2024 Urine Methadone Screen Negative < 300 ng/mL [facility] Microscopic analysis of urin e for red blood cells (RBC)Ordered By: Filippo Fuentes on 06-02-2024 Microscopic analysis of urine for red blood cells (RBC) 0 SEEN /hpf 0-5 [facility] Urine RBC 0 SEEN /hpf 0-5 [facility] Monocyte percentageOrdered B y: Filippo Fuentes on 06-02-2024 Monocytes/100 WBC (Bld) 6.9 % 0-10 [facility] Mucus LM Ql (Urine sed)Order ed By: Filippo Fuentes on 06-02-2024 Mucus Ql (Urine sed) 1+ /hpf [facility] Neutrophil percentageOrdered By: Filippo Fuentes on 06-02-2024 Neutrophils/100 WBC (Bld) 63.0 % 47-70 [facility] Nitrite Test strip Ql (U)Ord ered By: Filippo Fuentes on 06-02-2024 Nitrite Ql (U) Negative Negative [facility] No Panel InformationOrdered By: Filippo Fuentes on 06-02-2024 Urine Buprenorphine Qualitative Negative < 200 ng/mL [facility] Urine Oxycodone Screen Negative < 100 ng/mL [facility] Nucleated red blood cell per centageOrdered By: Filippo Fuentes on 06-02-2024 Nucleated RBC/100 WBC (Bld) [Ratio] 0 % 0-5 [facility] Platelet countOrdered By: Mike Fuentes on 06-02-2024 Platelets (Bld) [#/Vol] 319 10*3/uL 150-450 [facility] ,Serum,hCG Quali.on 06-02-2024 HCG, SERUM QUAL Normal [facility] Comment on above: Result Comment: OSVALDO ENT DEPARTED ER. Performed By: #### L 100.0100, L500.4050, L700.6800, L505.5000 ####[facility] [address] [place], [address] INTERNAL QC OK? Normal [facility] Comment on above: Result Comment: OSVALDO ENT DEPARTED ER. Performed By: #### L 100.0100, L500.4050, L700.6800, L505.5000 ####[facility] [address] [place], [address] RECORD KIT LOT# Normal [facility] Comment on above: Result Comment: OSVALDO ENT DEPARTED ER. Performed By: #### L 100.0100, L500.4050, L700.6800, L505.5000 ####[facility] [address] [place], [address] ,Urineon 06-02-2024 Beta HCG ( test) Ql (U) Negative Normal [facility] Comment on above: Result Comment: Very dilute urine specimens, as indicated by a low specificgravity, may not contain associate sales representative levels of hCG.If is still suspected, a first morning urinespecimen should be collected 48 hours later and tested. Performed By: #### L 400.0001, L400.7600 ####[facility] [address] [place], [place], [id number] Protein Test strip Ql (U)Ord ered By: Filippo Fuentes on 06-02-2024 Protein Ql (U) 30 mg/dl High Negative [facility] Quantitative urine opiates m easurementOrdered By: Filippo Fuentes on 06-02-2024 Opiates Ql (U) Negative < 300 ng/mL [facility] RBC Auto (Bld) [#/Vol]Ordere d By: Filippo Fuentes on 06-02-2024 RBC (Bld) [#/Vol] 4.95 10*6/uL 4.2-5.4 [facility] Screening urine fentanyl suzette surementOrdered By: Filippo Fuentes on 06-02-2024 fentaNYL Screen Ql (U) Negative [facility] Squamous epithelial cells de tection in urine sediment by light microscopyOrdered By: Filippo Fuentes on 06-02-2024 Epithelial cells.squamous LM Ql (Urine sed) 0-5 SEEN /hpf 5-10 [facility] Urinalysis, Completeon 06-02 EPI,SQUAMOUS 0-5 SEEN Normal 5-10 [facility] Comment on above: Order Comment: CLEAN CATCH Performed By: #### L 400.0001, L400.7600 ####[facility] [address] [place], [address] Mucus Ql (Urine sed) 1+ /hpf Normal [facility] Comment on above: Order Comment: CLEAN CATCH Performed By: #### L 400.0001, L400.7600 ####[facility] [address] [place], [address] WBC 0-5 SEEN Normal 0-5 [facility] Comment on above: Order Comment: CLEAN CATCH Performed By: #### L 400.0001, L400.7600 ####[facility] [address] [place], [address] BACTERIA 0 SEEN Normal None Seen [facility] Comment on above: Order Comment: CLEAN CATCH Performed By: #### L 400.0001, L400.7600 ####[facility] [address] [place], [address] RBC 0 SEEN Normal 0-5 [facility] Comment on above: Order Comment: CLEAN CATCH Performed By: #### L 400.0001, L400.7600 ####[facility] [address] [place], [address] Urine Drug Screen (VISTA)on 06-02-2024 AMPHETAMINES Positive Normal <1000 ng/mL [facility] Comment on above: Order Comment: UNK Result Comment: If c onfirmation testing is needed, a separate order will berequired to send out testing to the reference laboratory. Performed By: #### L 100.0100, L500.4050, L700.6800, L505.5000 ####[facility] [address] [place], [address] BARBITIURATES Negative Normal < 200 ng/mL [facility] Comment on above: Order Comment: UNK Performed By: #### L 100.0100, L500.4050, L700.6800, L505.5000 ####[facility] [address] [place], [address] BENZODIAZIPINE Negative Normal < 200 ng/mL [facility] Comment on above: Order Comment: UNK Performed By: #### L 100.0100, L500.4050, L700.6800, L505.5000 ####[facility] [address] [place], [address] BUP Ur Drug Scr Negative Normal < 200 ng/mL [facility] Comment on above: Order Comment: UNK Performed By: #### L 100.0100, L500.4050, L700.6800, L505.5000 ####[facility] [address] [place], [address] COCAINE Negative Normal < 300 ng/mL [facility] Comment on above: Order Comment: UNK Performed By: #### L 100.0100, L500.4050, L700.6800, L505.5000 ####[facility] [address] [place], [address] Fentanyl Negative Normal [facility] Comment on above: Order Comment: UNK Performed By: #### L 100.0100, L500.4050, L700.6800, L505.5000 ####[facility] [address] [place], [address] METHADONE Negative Normal < 300 ng/mL [facility] Comment on above: Order Comment: UNK Performed By: #### L 100.0100, L500.4050, L700.6800, L505.5000 ####[facility] [address] [place], [address] OPIATES Negative Normal < 300 ng/mL [facility] Comment on above: Order Comment: UNK Performed By: #### L 100.0100, L500.4050, L700.6800, L505.5000 ####[facility] [address] [place], [address] OXYCODONE Negative Normal < 100 ng/mL [facility] Comment on above: Order Comment: UNK Performed By: #### L 100.0100, L500.4050, L700.6800, L505.5000 ####[facility] [address] [place], [address] PCP Negative Normal < 25 ng/mL [facility] Comment on above: Order Comment: UNK Performed By: #### L 100.0100, L500.4050, L700.6800, L505.5000 ####[facility] [address] [place], [address] THC Positive Normal < 50 ng/mL [facility] Comment on above: Order Comment: UNK Result Comment: If c onfirmation testing is needed, a separate order will berequired to send out testing to the reference laboratory. Performed By: #### L 100.0100, L500.4050, L700.6800, L505.5000 ####[facility] [address] [place], [address] Urine benzodiazepine levelOr dered By: Filippo Alfredo on 06-02-2024 Benzodiazepines Ql (U) Negative < 200 ng/mL [facility] Urine blood detectionOrdered By: Filippo Fuentes on 06-02-2024 Urine Occult Blood Negative Negative [facility] Urine clarityOrdered By: Filippo Fuentes on 06-02-2024 Clarity (U) Clear Clear [facility] Urine cocaine levelOrdered B y: Filippo Fuentes on 06-02-2024 Cocaine Ql (U) Negative < 300 ng/mL [facility] Urine color determinationOrd ered By: Filippo Alfredo on 06-02-2024 Color (U) Yellow Yellow [facility] Urine owsev-0-ltwoudamxbpmgn abinol (THC) measurementOrdered By: Filippobelinda Fuentes on 06-02-2024 Cannabinoids Screen Ql (U) Positive < 50 ng/mL [facility] Comment on above: If confirmation test ing is needed, a separate order will be required to send out testing to the reference laboratory. Urine glucose detectionOrder ed By: Filippo Fuentes on 06-02-2024 Glucose Ql (U) Normal mg/dl Normal [facility] Urine leukocyte esterase det ection by dipstickOrdered By: Filippo Fuentes on 06-02-2024 Leukocyte esterase Test strip Ql (U) 25 /ul High Negative [facility] Urine pHOrdered By: Filippo mendez on 06-02-2024 pH (U) 6.5 [pH] 5.0 - 8.0 [facility] Urine phencyclidine (PCP) de tectionOrdered By: Filippo Fuentes on 06-02-2024 Phencyclidine Ql (U) Negative < 25 ng/mL [facility] Urine testOrdered By: Filippo Fuentes on 06-02-2024 HCG ( test) Ql (U) Negative [facility] Comment on above: Very dilute urine sp ecimens, as indicated by a low specificgravity, may not contain associate sales representative levels of hCG. If is still suspected, a first morning urinespecimen should be collected 48 hours later and tested. Urine sediment bacteria coun t by microscopy (number/high power field)Ordered By: Filippo Fuentes on 06-02-2024 Bacteria LM.HPF (Urine sed) [#/Area] 0 /[HPF] None Seen [facility] Urine specific gravity measu rementOrdered By: Filippo Fuentes on 06-02-2024 Specific gravity (U) [Rel density] 1.020 1.002-1.03 0 [facility] Urine urobilinogen measureme ntOrdered By: Filippo Fuentes on 06-02-2024 Urobilinogen Ql (U) 1 mg/dl High Normal [facility] Urobilinogen Ql (U)Ordered B y: Filippo Fuentes on 06-02-2024 Urobilinogen (U) [Mass/Vol] 1 mg/dL High Normal [facility] White blood cell (WBC) count Ordered By: Filippo Fuentes on 06-02-2024 WBC (Bld) [#/Vol] 9.4 10*3/uL 4.4-11.0 [facility] White blood cell countOrdere d By: Filippo Fuentes on 06-02-2024 Urine WBC 0-5 SEEN /hpf 0-5 [facility] White blood cell count 0-5 SEEN /hpf 0-5 [facility] fentaNYL Screen Ql (U)Ordere d By: Filippo Fuentes on 06-02-2024 Urine Fentanyl Screen Negative [facility] Emergency Department Summary on 05-05-2024 Emergency Department Summary Normal [facility] Beta HCG ( test) Ql Ordered By: Amari Nicholas on 04-28-2024 Serum Test, Qualitative Negative [facility] Emergency Department Summary on 04-28-2024 Emergency Department Summary Normal [facility] ,Serum,hCG Quali.on 04-28-2024 HCG, SERUM QUAL Negative Normal [facility] Comment on above: Performed By: #### L 700.6800 ####[facility] [address] [place], [place], [id number] Serum beta-hCG test, qualita tiveOrdered By: Amari Nicholas on 04-28-2024 Beta HCG ( test) Ql Negative [facility] Emergency Department Summary on 04-25-2024 Emergency Department Summary Normal [facility] Absolute lymphocyte countOrd ered By: Patti Antunez on 03-23-2024 Lymphocytes Auto (Unsp spec) [#/Vol] 1.11 10*3/uL 0.83-4.51 [facility] Absolute neutrophil countOrd ered By: Patti Antunez on 03-23-2024 Neutrophils (Bld) [#/Vol] 13.1 10*3/uL High 2.0-7.7 [facility] Alcohol, Blood (Medical)-Ser umon 03-23-2024 SERUM ETOH < 3.0 Normal [facility] Comment on above: Result Comment: The serum:whole blood ethanol ratio is approximately 1.14and varies slightly with hematocrit.Medical Alcohol reference interval and critical value innon-tolerant individuals; 50 - 100 Impairment 100 Intoxication 100 - 250 Severe Poisoning 250 - 400 Deep/possible fatal coma Performed By: #### L 501.9100, L700.6800, L100.0100, L500.2500, L505.5000 ####[facility] [address] [place], [address] Automated lymphocyte count a s percentage of total leukocytesOrdered By: Patti Antunez on 03-23-2024 Lymphocytes/100 WBC Auto (Unsp spec) 7.3 % Low 19-41 [facility] Basic Metabolic Profile (BMP )on 03-23-2024 BUN/CRE 9.8 RATIO Low 10-20 [facility] Comment on above: Performed By: #### L 501.9100, L700.6800, L100.0100, L500.2500, L505.5000 ####[facility] [address] [place], [address] CA,Total 9.6 mg/dL Normal 8.5-10.1 [facility] Comment on above: Performed By: #### L 501.9100, L700.6800, L100.0100, L500.2500, L505.5000 ####[facility] [address] [place], [address] Chloride [Moles/Vol] 104 mmol/L Normal 98-107 [facility] Comment on above: Performed By: #### L 501.9100, L700.6800, L100.0100, L500.2500, L505.5000 ####[facility] [address] [place], [address] CO2 [Moles/Vol] 21.0 mmol/L Normal 21.0-32.0 [facility] Comment on above: Performed By: #### L 501.9100, L700.6800, L100.0100, L500.2500, L505.5000 ####[facility] [address] [place], [address] Creatinine [Mass/Vol] 0.82 mg/dL Normal 0.55-1.02 [facility] Comment on above: Result Comment: The validity of the calculated GFR GFRAA in patients over70 years has not been determined. Clinical correlation isessential. Performed By: #### L 501.9100, L700.6800, L100.0100, L500.2500, L505.5000 ####[facility] [address] [place], [address] EST GFR - AA 110 mL/min Normal >60 [facility] Comment on above: Result Comment: Afri can [place] GFR Calc Performed By: #### L 501.9100, L700.6800, L100.0100, L500.2500, L505.5000 ####[facility] [address] [place], [address] GAP 13 Normal 5-15 [facility] Comment on above: Performed By: #### L 501.9100, L700.6800, L100.0100, L500.2500, L505.5000 ####[facility] [address] [place], [address] GFR/1.73 sq M.predicted among non-blacks MDRD (S/P/Bld) [Vol rate/Area] 91 mL/min/{1.73_m2} Normal >60 [facility] Comment on above: Result Comment: Non- GFR Calc Performed By: #### L 501.9100, L700.6800, L100.0100, L500.2500, L505.5000 ####[facility] [address] [place], [address] Glucose [Mass/Vol] 106 mg/dL Normal 74-106 [facility] Comment on above: Result Comment: Fast ing Glucose result from 100 to 125 mg/dLsuggests IMPAIRED HOMEOSTASIS per A.D.A. criteria. Performed By: #### L 501.9100, L700.6800, L100.0100, L500.2500, L505.5000 ####[facility] [address] [place], [address] Potassium [Moles/Vol] 3.0 mmol/L Low 3.5-5.1 [facility] Comment on above: Performed By: #### L 501.9100, L700.6800, L100.0100, L500.2500, L505.5000 ####[facility] [address] [place], [address] Sodium [Moles/Vol] 138 mmol/L Normal 136-145 [facility] Comment on above: Performed By: #### L 501.9100, L700.6800, L100.0100, L500.2500, L505.5000 ####[facility] [address] [place], [address] Urea nitrogen [Mass/Vol] 8 mg/dL Normal 7-18 [facility] Comment on above: Performed By: #### L 501.9100, L700.6800, L100.0100, L500.2500, L505.5000 ####[facility] [address] [place], [address] Basophil percentageOrdered B y: Patti Antunez on 03-23-2024 Basophils/100 WBC (Bld) 0.3 % 0-1 [facility] Beta HCG ( test) Ql Ordered By: Patti Antunez on 03-23-2024 Serum Test, Qualitative Negative [facility] Blood urea nitrogen (BUN)/cr eatinine ratioOrdered By: Patti Antunez on 03-23-2024 Urea nitrogen/Creatinine [Mass ratio] 9.8 mg/mg Low 10-20 [facility] CBC W/Diff, Automatedon 020 Absolute Lymph 1.11 X10 3/uL Normal 0.83-4.51 [facility] Comment on above: Performed By: #### L 501.9100, L700.6800, L100.0100, L500.2500, L505.5000 ####[facility] [address] [place], [address] Absolute Neut 13.1 X10 3/uL High 2.0-7.7 [facility] Comment on above: Performed By: #### L 501.9100, L700.6800, L100.0100, L500.2500, L505.5000 ####[facility] [address] [place], [address] Basophils/100 WBC (Bld) 0.3 % Normal 0-1 [facility] Comment on above: Performed By: #### L 501.9100, L700.6800, L100.0100, L500.2500, L505.5000 ####[facility] [address] [place], [address] Eosinophils/100 WBC (Bld) 0.0 % Normal 0-5 [facility] Comment on above: Performed By: #### L 501.9100, L700.6800, L100.0100, L500.2500, L505.5000 ####[facility] [address] [place], [address] Erythrocyte distribution width (RBC) [Ratio] 12.6 % Normal 11.6-14.6 [facility] Comment on above: Performed By: #### L 501.9100, L700.6800, L100.0100, L500.2500, L505.5000 ####[facility] [address] [place], [address] Hematocrit (Bld) [Volume fraction] 42.1 % Normal 37-47 [facility] Comment on above: Performed By: #### L 501.9100, L700.6800, L100.0100, L500.2500, L505.5000 ####[facility] [address] [place], [address] Hemoglobin (Bld) [Mass/Vol] 14.2 g/dL Normal 12.0-15.0 [facility] Comment on above: Performed By: #### L 501.9100, L700.6800, L100.0100, L500.2500, L505.5000 ####[facility] [address] [place], [address] IG% 0.300 Normal 0.0-0.9 [facility] Comment on above: Result Comment: IG% - Immature Granulocytes (promyelocytes, myelocytes andmetamyelocytes) > 1% indicates that a LEFT SHIFT is Present. Performed By: #### L 501.9100, L700.6800, L100.0100, L500.2500, L505.5000 ####[facility] [address] [place], [address] Lymphocytes/100 WBC (Bld) 7.3 % Low 19-41 [facility] Comment on above: Performed By: #### L 501.9100, L700.6800, L100.0100, L500.2500, L505.5000 ####[facility] [address] [place], [address] MCH (RBC) [Entitic mass] 31.3 pg Normal 27.0-32.0 [facility] Comment on above: Performed By: #### L 501.9100, L700.6800, L100.0100, L500.2500, L505.5000 ####[facility] [address] [place], [address] MCHC (RBC) [Mass/Vol] 33.7 g/dL Normal 32-36 [facility] Comment on above: Performed By: #### L 501.9100, L700.6800, L100.0100, L500.2500, L505.5000 ####[facility] [address] [place], [address] MCV (RBC) [Entitic vol] 92.9 fL Normal 81-99 [facility] Comment on above: Performed By: #### L 501.9100, L700.6800, L100.0100, L500.2500, L505.5000 ####[facility] [address] [place], [address] Monocytes/100 WBC (Bld) 5.6 % Normal 0-10 [facility] Comment on above: Performed By: #### L 501.9100, L700.6800, L100.0100, L500.2500, L505.5000 ####[facility] [address] [place], [address] Neutrophils/100 WBC (Bld) 86.5 % High 47-70 [facility] Comment on above: Performed By: #### L 501.9100, L700.6800, L100.0100, L500.2500, L505.5000 ####[facility] [address] [place], [address] Nucleated RBC (Bld) [#/Vol] 0 10*3/uL Normal 0-5 [facility] Comment on above: Performed By: #### L 501.9100, L700.6800, L100.0100, L500.2500, L505.5000 ####[facility] [address] [place], [address] Platelet mean volume (Bld) [Entitic vol] 10.0 fL Normal 6.2-12.0 [facility] Comment on above: Performed By: #### L 501.9100, L700.6800, L100.0100, L500.2500, L505.5000 ####[facility] [address] [place], [address] Platelets (Bld) [#/Vol] 322 10*3/uL Normal 150-450 [facility] Comment on above: Performed By: #### L 501.9100, L700.6800, L100.0100, L500.2500, L505.5000 ####[facility] [address] [place], [place], [id number] RBC (Bld) [#/Vol] 4.53 10*6/uL Normal 4.2-5.4 [facility] Comment on above: Performed By: #### L 501.9100, L700.6800, L100.0100, L500.2500, L505.5000 ####[facility] [address] [place], [place], [id number] RDW SD 43.1 fl Normal 35.1-43.9 [facility] Comment on above: Performed By: #### L 501.9100, L700.6800, L100.0100, L500.2500, L505.5000 ####[facility] [address] [place], [address] WBC (Bld) [#/Vol] 15.1 10*3/uL High 4.4-11.0 [facility] Comment on above: Performed By: #### L 501.9100, L700.6800, L100.0100, L500.2500, L505.5000 ####[facility] [address] [place], [place], [id number] Carbon dioxide measurementOr dered By: Patti Antunez on 03-23-2024 CO2 [Moles/Vol] 21.0 mmol/L 21.0-32.0 [facility] Chloride measurementOrdered By: Patti Antunez on 03-23-2024 Chloride [Moles/Vol] 104 mmol/L 98-107 [facility] Emergency Department Summary on 03-23-2024 Emergency Department Summary Normal [facility] Eosinophil percentageOrdered By: Patti Antunez on 03-23-2024 Eosinophils/100 WBC (Bld) 0.0 % 0-5 [facility] Erythrocyte distribution wid th ratioOrdered By: Patti Antunez on 03-23-2024 Erythrocyte distribution width (RBC) [Ratio] 12.6 % 11.6-14.6 [facility] Erythrocyte distribution wid th standard deviationOrdered By: Patti Atnunez on 03-23-2024 Erythrocyte distribution width (RBC) [Entitic vol] 43.1 fL 35.1-43.9 [facility] Erythrocyte distribution width (RBC) [Ratio] 43.1 fl 35.1-43.9 [facility] Estimated glomerular filtrat ion rate (GFR) AmericanOrdered By: Patti Antunez on 03-23-2024 Estimated GFR (MDRD) Amer 110 mL/min >60 [facility] Comment on above: GFR Calc Glomerular filtration rate ( GFR) estimationOrdered By: Patti Antunez on 03-23-2024 Estimated GFR (MDRD) Non-Af Amer 91 mL/min >60 [facility] Comment on above: Non- GFR Calc GFR/1.73 sq M.predicted among non-blacks MDRD (S/P/Bld) [Vol rate/Area] 91 mL/min/{1.73_m2} >60 [facility] Comment on above: Non- GFR Calc Glucose measurementOrdered B y: Patti Antunez on 03-23-2024 Glucose [Mass/Vol] 106 mg/dL 74-106 [facility] Comment on above: Fasting Glucose resu lt from 100 to 125 mg/dL suggests IMPAIRED HOMEOSTASIS per A.D.A. criteria. Hematocrit Auto (Bld) [Volum e fraction]Ordered By: Patti Antunez on 03-23-2024 Hematocrit (Bld) [Volume fraction] 42.1 % 37-47 [facility] Hemoglobin measurementOrdere d By: Patti Antnuez on 03-23-2024 Hemoglobin (Bld) [Mass/Vol] 14.2 g/dL 12.0-15.0 [facility] Immature granulocytes/100 WB C Auto (Bld)Ordered By: Patti Antunez on 03-23-2024 Immature granulocytes/100 WBC (Bld) 0.300 % 0.0-0.9 [facility] Comment on above: IG% - Immature Granu locytes (promyelocytes, myelocytes and metamyelocytes) > 1% indicates that a LEFT SHIFT is Present. Lymphocytes Auto (Unsp spec) [#/Vol]Ordered By: Patti Antunez on 03-23-2024 Lymphocytes (Bld) [#/Vol] 1.11 10*3/uL 0.83-4.5 1 [facility] Lymphocytes/100 WBC Auto (Un sp spec)Ordered By: Patti Antunez on 03-23-2024 Lymphocytes/100 WBC (Bld) 7.3 % Low 19-41 [facility] MCV (mean corpuscular volume ) determinationOrdered By: Patti Antunez on 03-23-2024 MCV (RBC) [Entitic vol] 92.9 fL 81-99 [facility] Mean corpuscular hemoglobin (MCH) determinationOrdered By: Patti Antunez on 03-23-2024 MCH (RBC) [Entitic mass] 31.3 pg 27.0-32.0 [facility] Mean corpuscular hemoglobin concentration (MCHC) determinationOrdered By: Patti Antunez on 03-23-2024 MCHC (RBC) [Mass/Vol] 33.7 g/dL 32-36 [facility] Mean platelet volume determi nationOrdered By: Patti Antunez on 03-23-2024 Platelet mean volume (Bld) [Entitic vol] 10.0 fL 6.2-12.0 [facility] Methadone, urineOrdered By: Patti Antunez on 03-23-2024 Urine Methadone Screen Negative < 300 ng/mL [facility] Monocyte percentageOrdered B y: Patti Antunez on 03-23-2024 Monocytes/100 WBC (Bld) 5.6 % 0-10 [facility] Neutrophil percentageOrdered By: Patti Antunez on 03-23-2024 Neutrophils/100 WBC (Bld) 86.5 % High 47-70 [facility] No Panel InformationOrdered By: Patti Antunez on 03-23-2024 Urine Drug Screen Comment [facility] Comment on above: CONFIRMATORY TESTING FOR ALL [...] red blood cell per centageOrdered By: Patti Antunez on 03-23-2024 Nucleated RBC/100 WBC (Bld) [Ratio] 0 % 0-5 [facility] Platelet countOrdered By: Jenelle Antunez on 03-23-2024 Platelets (Bld) [#/Vol] 322 10*3/uL 150-450 [facility] Potassium measurementOrdered By: Patti Antunez on 03-23-2024 Potassium [Moles/Vol] 3.0 mmol/L Low 3.5-5.1 [facility] ,Serum,hCG Quali.on 03-23-2024 HCG, SERUM QUAL Negative Normal [facility] Comment on above: Performed By: #### L 501.9100, L700.6800, L100.0100, L500.2500, L505.5000 ####[facility] [address] [place], [place], [id number] Quantitative urine opiates m easurementOrdered By: Patti Antunez on 03-23-2024 Opiates Ql (U) Negative < 300 ng/mL [facility] RBC Auto (Bld) [#/Vol]Ordere d By: Patti Antunez on 03-23-2024 RBC (Bld) [#/Vol] 4.53 10*6/uL 4.2-5.4 [facility] Serum anion gap measurementO rdered By: Patti Antunez on 03-23-2024 Anion gap [Moles/Vol] 13 mmol/L 5-15 [facility] Serum beta-hCG test, qualita tiveOrdered By: Patti Antunez on 03-23-2024 Beta HCG ( test) Ql Negative [facility] Serum ethanol measurementOrd ered By: Patti Antunez on 03-23-2024 Ethyl Alcohol Level < 3.0 mg/dL [facility] Comment on above: The serum:whole bloo d ethanol ratio is approximately 1.14and varies slightly with hematocrit. Medical Alcohol reference interval and critical value innon-tolerant individuals; 50 - 100 Impairment 100 Intoxication 100 - 250 Severe Poisoning 250 - 400 Deep/possible fatal coma Serum or plasma calcium riddhi urement (mass/volume)Ordered By: Patti Antunez on 03-23-2024 Calcium [Mass/Vol] 9.6 mg/dL 8.5-10.1 [facility] Serum or plasma creatinine m easurement (mass/volume)Ordered By: Patti Antunez on 03-23-2024 Creatinine [Mass/Vol] 0.82 mg/dL 0.55-1.02 [facility] Comment on above: The validity of the calculated GFR & GFRAA in patients over 70 years has not been determined. Clinical correlation is essential. Serum or plasma urea nitroge n measurement (mass/volume)Ordered By: Patti Antunez on 03-23-2024 Urea nitrogen [Mass/Vol] 8 mg/dL 7-18 [facility] Sodium levelOrdered By: Salvatore Antunez on 03-23-2024 Sodium [Moles/Vol] 138 mmol/L 136-145 [facility] Urine Drug Screen (VISTA)on 03-23-2024 AMPHETAMINES Positive Abnormal <1000 ng/mL [facility] Comment on above: Performed By: #### L 501.9100, L700.6800, L100.0100, L500.2500, L505.5000 ####[facility] [address] [place], [place], [phone] BARBITIURATES Negative Normal < 200 ng/mL [facility] Comment on above: Performed By: #### L 501.9100, L700.6800, L100.0100, L500.2500, L505.5000 ####[facility] [address] [place], [address] BENZODIAZIPINE Negative Normal < 200 ng/mL [facility] Comment on above: Performed By: #### L 501.9100, L700.6800, L100.0100, L500.2500, L505.5000 ####[facility] [address] [place], [address] COCAINE Positive Abnormal < 300 ng/mL [facility] Comment on above: Performed By: #### L 501.9100, L700.6800, L100.0100, L500.2500, L505.5000 ####[facility] [address] [facility] [address] ECSTACY Positive Abnormal < 500 ng/mL [facility] Comment on above: Performed By: #### L 501.9100, L700.6800, L100.0100, L500.2500, L505.5000 ####[facility] [address] [place], [phone] METHADONE Negative Normal < 300 ng/mL [facility] Comment on above: Performed By: #### L 501.9100, L700.6800, L100.0100, L500.2500, L505.5000 ####[facility] [address] [place], [phone] OPIATES Negative Normal < 300 ng/mL [facility] Comment on above: Performed By: #### L 501.9100, L700.6800, L100.0100, L500.2500, L505.5000 ####[facility] [address] [place], [phone] PCP Negative Normal < 25 ng/mL [facility] Comment on above: Performed By: #### L 501.9100, L700.6800, L100.0100, L500.2500, L505.5000 ####[facility] [address] [place] [address] THC Positive Abnormal < 50 ng/mL [facility] Comment on above: Performed By: #### L 501.9100, L700.6800, L100.0100, L500.2500, L505.5000 ####[facility] [address] [place], [address] VISTA UDS PH 5 Normal [facility] Comment on above: Performed By: #### L 501.9100, L700.6800, L100.0100, L500.2500, L505.5000 ####[facility] [address] [place], [address] Urine amphetamine measuremen tOrdered By: Patti Antunez on 03-23-2024 Amphetamines Ql (U) Positive High <1000 ng/mL [facility] Urine barbiturates measureme ntOrdered By: Patti Antunez on 03-23-2024 Urine Barbiturates Screen Negative < 200 ng/mL [facility] Urine benzodiazepine levelOr dered By: Patti Antunez on 03-23-2024 Benzodiazepines Ql (U) Negative < 200 ng/mL [facility] Urine cocaine levelOrdered B y: Patti Antunez on 03-23-2024 Cocaine Ql (U) Positive High < 300 ng/mL [facility] Urine luhwa-6-lfdvlwdxyasupo abinol (THC) measurementOrdered By: Patti Antunez on 03-23-2024 Cannabinoids Screen Ql (U) Positive High < 50 ng/mL [facility] Urine methylenedioxymethamph etamine (MDMA) measurementOrdered By: Patti Antunez on 03-23-2024 MDMA (Ecstasy) Screen Positive High < 500 ng/mL [facility] Urine phencyclidine (PCP) de tectionOrdered By: Patti Antunez on 03-23-2024 Phencyclidine Ql (U) Negative < 25 ng/mL [facility] White blood cell (WBC) count Ordered By: Patti Atnunez on 03-23-2024 WBC (Bld) [#/Vol] 15.1 10*3/uL High 4.4-11.0 [facility] 02-27-2024 36 All medications were refused, this patient has to have an appointment before I will prescribe any medications, she has been off of her Lyrica since January and we have never prescribed Zyprexa. She has not been seen since June and has been scheduled multiple times and has either no showed or canceled Normal [facility] 02-26-2024 [address] Elliot juarez review and see if he would be okay with prescribing the Zyprexa. Lyrica has also not been filled since November and it was only a 10 day supply. [facility] 36 [facility] 06/28/[address] Booth on 06/28/23, do you want to leave this for him tomorrow since we have never prescribed the Olazapine? [facility] 36 Ordering provider: Devyn Date of last office visit: 06/27/24 Date [...] Medication name: pregabalin (Lyrica) 100 MG capsule [[id number]] Medication dosage: 100 mg (Miligrams Monthly quantity [...] prescribe. Please send all refills to pharmacy [id number] [address] [place], [place] - [address] [facility] [id number] 01-16-2024 Fentanyl Urine Negative Normal CUTOFF:2.0 [facility] Comment on above: Order Comment: Speci men Comment: ToxAssure, ToxAssure FLEX or MAT [id number] Comment: -Technical component - Data analysisperformed atSpecimen Comment: [facility] [place], [address], [place], [place]: [id number]. [phone] Lab DirectorMike Corey MD. Result Comment: Perf ormed at: - [facility] [address] [place] [address] [id number] Director: Cheryl Patiño [facility], Phone: [phone] Performed By: #### L 3800.4300 ####[facility] [address] [place], [address] Discharge Instructionon 12-15 Discharge Instruction Normal [facility] M8200.2203on 01-10-2024 M8200.2203 Pending Chlamydia Trachomatis PCR NEGATIVE for Chlamydia trachomatis N. gonorrhoeae PCR Negative for N. gonorrhoeae Normal [facility] Comment on above: Performed By: #### M 8200.2203 ####[facility] [address] [place], [address] Basic Metabolic Profile (BMP )on 01-09-2024 BUN/CRE 23.1 RATIO High 10-20 [facility] Comment on above: Performed By: #### L 500.2500 ####[facility] [address] [place], [address] CA,Total 8.7 mg/dL Normal 8.5-10.1 [facility] Comment on above: Performed By: #### L 500.2500 ####[facility] [address] [place], [address] Chloride [Moles/Vol] 106 mmol/L Normal 98-107 [facility] Comment on above: Performed By: #### L 500.2500 ####[facility] [address] [place], [address] CO2 [Moles/Vol] 28.0 mmol/L Normal 21.0-32.0 [facility] Comment on above: Performed By: #### L 500.2500 ####[facility] [address] [place], [address] Creatinine [Mass/Vol] 0.52 mg/dL Low 0.55-1.02 [facility] Comment on above: Result Comment: The validity of the calculated GFR GFRAA in patients over70 years has not been determined. Clinical correlation isessential. Performed By: #### L 500.2500 ####[facility] [address] [place], [address] ECRCL 165.33 ml/min Normal [facility] Comment on above: Performed By: #### L 500.2500 ####[facility] [address] [place], [address] EST GFR - AA 186 mL/min Normal >60 [facility] Comment on above: Result Comment: Afri can [place] GFR Calc Performed By: #### L 500.2500 ####[facility] [address] [place], [address] GAP 5 Normal 5-15 [facility] Comment on above: Performed By: #### L 500.2500 ####[facility] [address] [place], [address] GFR/1.73 sq M.predicted among non-blacks MDRD (S/P/Bld) [Vol rate/Area] 154 mL/min/{1.73_m2} Normal >60 [facility] Comment on above: Result Comment: Non- GFR Calc Performed By: #### L 500.2500 ####[facility] [address] [place], [address] Glucose [Mass/Vol] 102 mg/dL Normal 74-106 [facility] Comment on above: Result Comment: Fast ing Glucose result from 100 to 125 mg/dLsuggests IMPAIRED HOMEOSTASIS per A.D.A. criteria. Performed By: #### L 500.2500 ####[facility] [address] [place], [address] Potassium [Moles/Vol] 3.4 mmol/L Low 3.5-5.1 [facility] Comment on above: Performed By: #### L 500.2500 ####[facility] [address] [place], [address] Sodium [Moles/Vol] 139 mmol/L Normal 136-145 [facility] Comment on above: Performed By: #### L 500.2500 ####[facility] [address] [place], [address] Urea nitrogen [Mass/Vol] 12 mg/dL Normal 7-18 [facility] Comment on above: Performed By: #### L 500.2500 ####[facility] [address] [place], [address] Blood urea nitrogen (BUN)/cr eatinine ratioOrdered By: Kirill Perez on 01-09-2024 Urea nitrogen/Creatinine [Mass ratio] 23.1 mg/mg High 10-20 [facility] Carbon dioxide measurementOr dered By: Kirill Perez on 01-09-2024 CO2 [Moles/Vol] 28.0 mmol/L 21.0-32.0 [facility] Chlamydia and Neisseria gono rrhoeae detection by PCROrdered By: Easton Pugh on 01-09-2024 Chlamydia/Neisseria (PCR) [facility] Chloride measurementOrdered By: Kirill Peerz on 01-09-2024 Chloride [Moles/Vol] 106 mmol/L 98-107 [facility] Estimated glomerular filtrat ion rate (GFR) AmericanOrdered By: Kirill Perez on 01-09-2024 Estimated GFR (MDRD) Amer 186 mL/min >60 [facility] Comment on above: GFR Calc Estimation of creatinine riley aranceOrdered By: Kirill Perez on 01-09-2024 Estimated Creatinine Clearance Calc 165.33 ml/min [facility] Glomerular filtration rate ( GFR) estimationOrdered By: Kirill Perez on 01-09-2024 Estimated GFR (MDRD) Non-Af Amer 154 mL/min >60 [facility] Comment on above: Non- GFR Calc Glucose measurementOrdered B y: Kirill Perez on 01-09-2024 Glucose [Mass/Vol] 102 mg/dL 74-106 [facility] Comment on above: Fasting Glucose resu lt from 100 to 125 mg/dL suggests IMPAIRED HOMEOSTASIS per A.D.A. criteria. Potassium measurementOrdered By: Kirill Perez on 01-09-2024 Potassium [Moles/Vol] 3.4 mmol/L Low 3.5-5.1 [facility] Serum anion gap measurementO rdered By: Kirill Perez on 01-09-2024 Anion gap [Moles/Vol] 5 mmol/L 5-15 [facility] Serum or plasma calcium riddhi urement (mass/volume)Ordered By: Kirill Perez on 01-09-2024 Calcium [Mass/Vol] 8.7 mg/dL 8.5-10.1 [facility] Serum or plasma creatinine m easurement (mass/volume)Ordered By: Kirill Perez on 01-09-2024 Creatinine [Mass/Vol] 0.52 mg/dL Low 0.55-1.02 [facility] Comment on above: The validity of the calculated GFR & GFRAA in patients over 70 years has not been determined. Clinical correlation is essential. Serum or plasma urea nitroge n measurement (mass/volume)Ordered By: Kirill Perez on 01-09-2024 Urea nitrogen [Mass/Vol] 12 mg/dL 7-18 [facility] Sodium levelOrdered By: Rickie Perez on 01-09-2024 Sodium [Moles/Vol] 139 mmol/L 136-145 [facility] fentaNYL Screen Ql (U)Ordere d By: Kirill Perez on 01-09-2024 Urine Fentanyl Screen Negative CUTOFF:2.0 [facility] Comment on above: Performed at: - [facility] [address] [id number] Director: Cheryl Patiño [facility], Phone: [phone] Lead EKGon 01-08-2024 12 Lead EKG Normal [facility] Absolute neutrophil countOrd ered By: Maxx Lopez on 01-08-2024 Neutrophils (Bld) [#/Vol] 4.0 10*3/uL 2.0-7.7 [facility] Alcohol, Blood (Medical)-Ser umon 01-08-2024 SERUM ETOH < 3.0 Normal [facility] Comment on above: Result Comment: The serum:whole blood ethanol ratio is approximately 1.14and varies slightly with hematocrit.Medical Alcohol reference interval and critical value innon-tolerant individuals; 50 - 100 Impairment 100 Intoxication 100 - 250 Severe Poisoning 250 - 400 Deep/possible fatal coma Performed By: #### L 700.6800, L501.9100, L100.0100, L505.5000, L500.2500 ####[facility] [address] [place], [address] Basic Metabolic Profile (BMP )on 01-08-2024 BUN/CRE 17.6 RATIO Normal 10-20 [facility] Comment on above: Performed By: #### L 700.6800, L501.9100, L100.0100, L505.5000, L500.2500 ####[facility] [address] [place], [address] [place],Total 9.7 mg/dL Normal 8.5-10.1 [facility] Comment on above: Performed By: #### L 700.6800, L501.9100, L100.0100, L505.5000, L500.2500 ####[facility] [address] [place], [address] Chloride [Moles/Vol] 106 mmol/L Normal 98-107 [facility] Comment on above: Performed By: #### L 700.6800, L501.9100, L100.0100, L505.5000, L500.2500 ####[facility] [address] [place], [address] CO2 [Moles/Vol] 26.0 mmol/L Normal 21.0-32.0 [facility] Comment on above: Performed By: #### L 700.6800, L501.9100, L100.0100, L505.5000, L500.2500 ####[facility] [address] [place], [address] Creatinine [Mass/Vol] 0.51 mg/dL Low 0.55-1.02 [facility] Comment on above: Result Comment: The validity of the calculated GFR GFRAA in patients over70 years has not been determined. Clinical correlation isessential. Performed By: #### L 700.6800, L501.9100, L100.0100, L505.5000, L500.2500 ####[facility] [address] [place], [address] ECRCL 188.71 ml/min Normal [facility] Comment on above: Performed By: #### L 700.6800, L501.9100, L100.0100, L505.5000, L500.2500 ####[facility] [address] [place], [address] EST GFR - AA 190 mL/min Normal >60 [facility] Comment on above: Result Comment: Afri can [place] GFR Calc Performed By: #### L 700.6800, L501.9100, L100.0100, L505.5000, L500.2500 ####[facility] [address] [place], [address] GAP 9 Normal 5-15 [facility] Comment on above: Performed By: #### L 700.6800, L501.9100, L100.0100, L505.5000, L500.2500 ####[facility] [address] [place], [address] GFR/1.73 sq M.predicted among non-blacks MDRD (S/P/Bld) [Vol rate/Area] 157 mL/min/{1.73_m2} Normal >60 [facility] Comment on above: Result Comment: Non- GFR Calc Performed By: #### L 700.6800, L501.9100, L100.0100, L505.5000, L500.2500 ####[facility] [address] [place], [address] Glucose [Mass/Vol] 90 mg/dL Normal 74-106 [facility] Comment on above: Performed By: #### L 700.6800, L501.9100, L100.0100, L505.5000, L500.2500 ####[facility] [address] [place], [address] Potassium [Moles/Vol] 2.9 mmol/L Low 3.5-5.1 [facility] Comment on above: Performed By: #### L 700.6800, L501.9100, L100.0100, L505.5000, L500.2500 ####[facility] [address] [place], [address] Sodium [Moles/Vol] 140 mmol/L Normal 136-145 [facility] Comment on above: Performed By: #### L 700.6800, L501.9100, L100.0100, L505.5000, L500.2500 ####[facility] [address] [place], [address] Urea nitrogen [Mass/Vol] 9 mg/dL Normal 7-18 [facility] Comment on above: Performed By: #### L 700.6800, L501.9100, L100.0100, L505.5000, L500.2500 ####[facility] [address] [place], [address] Basophil percentageOrdered B y: Maxx Lopez on 01-08-2024 Basophils/100 WBC (Bld) 0.4 % 0-1 [facility] Beta HCG ( test) Ql Ordered By: Maxx Lopez on 01-08-2024 Serum Test, Qualitative Negative [facility] CBC W/Diff, Automatedon 11-2 Absolute Lymph 2.49 X10 3/uL Normal 0.83-4.51 [facility] Comment on above: Performed By: #### L 700.6800, L501.9100, L100.0100, L505.5000, L500.2500 ####[facility] [address] [place], [address] Absolute Neut 4.0 X10 3/uL Normal 2.0-7.7 [facility] Comment on above: Performed By: #### L 700.6800, L501.9100, L100.0100, L505.5000, L500.2500 ####[facility] [address] [place], [address] Basophils/100 WBC (Bld) 0.4 % Normal 0-1 [facility] Comment on above: Performed By: #### L 700.6800, L501.9100, L100.0100, L505.5000, L500.2500 ####[facility] [address] [place], [address] Eosinophils/100 WBC (Bld) 2.0 % Normal 0-5 [facility] Comment on above: Performed By: #### L 700.6800, L501.9100, L100.0100, L505.5000, L500.2500 ####[facility] [address] [place], [address] Erythrocyte distribution width (RBC) [Ratio] 12.2 % Normal 11.6-14.6 [facility] Comment on above: Performed By: #### L 700.6800, L501.9100, L100.0100, L505.5000, L500.2500 ####[facility] [address] [place], [address] Hematocrit (Bld) [Volume fraction] 40.3 % Normal 37-47 [facility] Comment on above: Performed By: #### L 700.6800, L501.9100, L100.0100, L505.5000, L500.2500 ####[facility] [address] [place], [address] Hemoglobin (Bld) [Mass/Vol] 13.7 g/dL Normal 12.0-15.0 [facility] Comment on above: Performed By: #### L 700.6800, L501.9100, L100.0100, L505.5000, L500.2500 ####[facility] [address] [place], [address] IG% 0.300 Normal 0.0-0.9 [facility] Comment on above: Result Comment: IG% - Immature Granulocytes (promyelocytes, myelocytes andmetamyelocytes) > 1% indicates that a LEFT SHIFT is Present. Performed By: #### L 700.6800, L501.9100, L100.0100, L505.5000, L500.2500 ####[facility] [address] [place], [address] Lymphocytes/100 WBC (Bld) 35.0 % Normal 19-41 [facility] Comment on above: Performed By: #### L 700.6800, L501.9100, L100.0100, L505.5000, L500.2500 ####[facility] [address] [place], [address] MCH (RBC) [Entitic mass] 32.4 pg High 27.0-32.0 [facility] Comment on above: Performed By: #### L 700.6800, L501.9100, L100.0100, L505.5000, L500.2500 ####[facility] [address] [place], [address] MCHC (RBC) [Mass/Vol] 34.0 g/dL Normal 32-36 [facility] Comment on above: Performed By: #### L 700.6800, L501.9100, L100.0100, L505.5000, L500.2500 ####[facility] [address] [place], [address] MCV (RBC) [Entitic vol] 95.3 fL Normal 81-99 [facility] Comment on above: Performed By: #### L 700.6800, L501.9100, L100.0100, L505.5000, L500.2500 ####[facility] [address] [place], [address] Monocytes/100 WBC (Bld) 6.9 % Normal 0-10 [facility] Comment on above: Performed By: #### L 700.6800, L501.9100, L100.0100, L505.5000, L500.2500 ####[facility] [address] [place], [address] Neutrophils/100 WBC (Bld) 55.4 % Normal 47-70 [facility] Comment on above: Performed By: #### L 700.6800, L501.9100, L100.0100, L505.5000, L500.2500 ####[facility] [address] [place], [address] Nucleated RBC (Bld) [#/Vol] 0 10*3/uL Normal 0-5 [facility] Comment on above: Performed By: #### L 700.6800, L501.9100, L100.0100, L505.5000, L500.2500 ####[facility] [address] [place], [address] Platelet mean volume (Bld) [Entitic vol] 11.3 fL Normal 6.2-12.0 [facility] Comment on above: Performed By: #### L 700.6800, L501.9100, L100.0100, L505.5000, L500.2500 ####[facility] [address] [place], [address] Platelets (Bld) [#/Vol] 274 10*3/uL Normal 150-450 [facility] Comment on above: Performed By: #### L 700.6800, L501.9100, L100.0100, L505.5000, L500.2500 ####[facility] [address] [place], [address] RBC (Bld) [#/Vol] 4.23 10*6/uL Normal 4.2-5.4 [facility] Comment on above: Performed By: #### L 700.6800, L501.9100, L100.0100, L505.5000, L500.2500 ####[facility] [address] [place], [address] RDW SD 42.7 fl Normal 35.1-43.9 [facility] Comment on above: Performed By: #### L 700.6800, L501.9100, L100.0100, L505.5000, L500.2500 ####[facility] [address] [place], [address] WBC (Bld) [#/Vol] 7.1 10*3/uL Normal 4.4-11.0 [facility] Comment on above: Performed By: #### L 700.6800, L501.9100, L100.0100, L505.5000, L500.2500 ####[facility] [address] [place], [address] Emergency Department Summary on 01-08-2024 Emergency Department Summary Normal [facility] Eosinophil percentageOrdered By: Maxx Lopez on 01-08-2024 Eosinophils/100 WBC (Bld) 2.0 % 0-5 [facility] Erythrocyte distribution wid th ratioOrdered By: Maxx Lopez on 01-08-2024 Erythrocyte distribution width (RBC) [Ratio] 12.2 % 11.6-14.6 [facility] Erythrocyte distribution wid th standard deviationOrdered By: Maxx Lopez on 01-08-2024 Erythrocyte distribution width (RBC) [Entitic vol] 42.7 fL 35.1-43.9 [facility] H AND P Exam - Hospitaliston 01-08-2024 H&P Exam - Hospitalist Normal [facility] Hematocrit Auto (Bld) [Volum e fraction]Ordered By: Maxx Lopez on 01-08-2024 Hematocrit (Bld) [Volume fraction] 40.3 % 37-47 [facility] Hemoglobin measurementOrdere d By: Maxx Lopez on 01-08-2024 Hemoglobin (Bld) [Mass/Vol] 13.7 g/dL 12.0-15.0 [facility] Immature granulocytes/100 WB C Auto (Bld)Ordered By: Maxx Lopez on 01-08-2024 Immature granulocytes/100 WBC (Bld) 0.300 % 0.0-0.9 [facility] Comment on above: IG% - Immature Granu locytes (promyelocytes, myelocytes and metamyelocytes) > 1% indicates that a LEFT SHIFT is Present. L3800.4200on 01-08-2024 Mec Fentanyl Sc Normal [facility] Comment on above: Result Comment: OSVALDO ENT DISCHARGED, URINE SCREEN SENT OUT TO REF LAB Performed By: #### L 3800.4200 ####[facility] [address] [place], [address] Lymphocytes Auto (Unsp spec) [#/Vol]Ordered By: Maxx Lopez on 01-08-2024 Lymphocytes (Bld) [#/Vol] 2.49 10*3/uL 0.83-4.5 1 [facility] Lymphocytes/100 WBC Auto (Un sp spec)Ordered By: Maxx Lopez on 01-08-2024 Lymphocytes/100 WBC (Bld) 35.0 % 19-41 [facility] MCV (mean corpuscular volume ) determinationOrdered By: Maxx Lopez on 01-08-2024 MCV (RBC) [Entitic vol] 95.3 fL 81-99 [facility] Magnesiumon 01-08-2024 Magnesium [Mass/Vol] 1.7 mg/dL Normal 1.6-2.6 [facility] Comment on above: Performed By: #### L 501.2300, L501.5200 ####[facility] [address] [place], [address] Magnesium measurementOrdered By: Kirill Perez on 01-08-2024 Magnesium [Mass/Vol] 1.7 mg/dL 1.6-2.6 [facility] Mean corpuscular hemoglobin (MCH) determinationOrdered By: Maxx Lopez on 01-08-2024 MCH (RBC) [Entitic mass] 32.4 pg High 27.0-32.0 [facility] Mean corpuscular hemoglobin concentration (MCHC) determinationOrdered By: Maxx Lopez on 01-08-2024 MCHC (RBC) [Mass/Vol] 34.0 g/dL 32-36 [facility] Mean platelet volume determi nationOrdered By: Maxx Lopez on 01-08-2024 Platelet mean volume (Bld) [Entitic vol] 11.3 fL 6.2-12.0 [facility] Methadone, urineOrdered By: Maxx Lopez on 01-08-2024 Urine Methadone Screen Negative < 300 ng/mL [facility] Monocyte percentageOrdered B y: Maxx Lopez on 01-08-2024 Monocytes/100 WBC (Bld) 6.9 % 0-10 [facility] Neutrophil percentageOrdered By: Maxx Lopez on 01-08-2024 Neutrophils/100 WBC (Bld) 55.4 % 47-70 [facility] No Panel InformationOrdered By: Maxx Lopez on 01-08-2024 Urine Drug Screen Comment [facility] Comment on above: CONFIRMATORY TESTING FOR ALL [...] RBC/100 WBC (Bld) [Ratio] 0 % 0-5 [facility] Phosphoruson 01-08-2024 Phosphate [Mass/Vol] 4.2 mg/dL Normal 2.5-4.9 [facility] Comment on above: Performed By: #### L 501.2300, L501.5200 ####[facility] [address] [place], [place], [id number] Phosphorus measurementOrdere d By: Kirill Perez on 01-08-2024 Phosphorus Level 4.2 mg/dL 2.5-4.9 [facility] Platelet countOrdered By: Carla Lopez on 01-08-2024 Platelets (Bld) [#/Vol] 274 10*3/uL 150-450 [facility] ,Serum,hCG Quali.on 01-08-2024 HCG, SERUM QUAL Negative Normal [facility] Comment on above: Performed By: #### L 700.6800, L501.9100, L100.0100, L505.5000, L500.2500 ####[facility] [address] [place], [place], [id number] Quantitative urine opiates m easurementOrdered By: Maxx Lopez on 01-08-2024 Opiates Ql (U) Negative < 300 ng/mL [facility] RBC Auto (Bld) [#/Vol]Ordere d By: Maxx Lopez on 01-08-2024 RBC (Bld) [#/Vol] 4.23 10*6/uL 4.2-5.4 [facility] Serum ethanol measurementOrd ered By: Maxx Lopez on 01-08-2024 Ethyl Alcohol Level < 3.0 mg/dL [facility] Comment on above: The serum:whole bloo d ethanol ratio is approximately 1.14and varies slightly with hematocrit. Medical Alcohol reference interval and critical value innon-tolerant individuals; 50 - 100 Impairment 100 Intoxication 100 - 250 Severe Poisoning 250 - 400 Deep/possible fatal coma Urine Drug Screen (VISTA)on 01-08-2024 AMPHETAMINES Positive Abnormal <1000 ng/mL [facility] Comment on above: Performed By: #### L 700.6800, L501.9100, L100.0100, L505.5000, L500.2500 ####[facility] [address] [place] [address] BARBITIURATES Negative Normal < 200 ng/mL [facility] Comment on above: Performed By: #### L 700.6800, L501.9100, L100.0100, L505.5000, L500.2500 ####[facility] [address] [place], [phone] BENZODIAZIPINE Negative Normal < 200 ng/mL [facility] Comment on above: Performed By: #### L 700.6800, L501.9100, L100.0100, L505.5000, L500.2500 ####[facility] [address] [place], [phone] COCAINE Negative Normal < 300 ng/mL [facility] Comment on above: Performed By: #### L 700.6800, L501.9100, L100.0100, L505.5000, L500.2500 ####[facility] [address] [place], [phone] ECSTACY Positive Abnormal < 500 ng/mL [facility] Comment on above: Performed By: #### L 700.6800, L501.9100, L100.0100, L505.5000, L500.2500 ####[facility] [address] [place] [address] METHADONE Negative Normal < 300 ng/mL [facility] Comment on above: Performed By: #### L 700.6800, L501.9100, L100.0100, L505.5000, L500.2500 ####[facility] [address] [place], [address] OPIATES Negative Normal < 300 ng/mL [facility] Comment on above: Performed By: #### L 700.6800, L501.9100, L100.0100, L505.5000, L500.2500 ####[facility] [address] [place], [address] PCP Negative Normal < 25 ng/mL [facility] Comment on above: Performed By: #### L 700.6800, L501.9100, L100.0100, L505.5000, L500.2500 ####[facility] [address] [place], [address] THC Negative Normal < 50 ng/mL [facility] Comment on above: Performed By: #### L 700.6800, L501.9100, L100.0100, L505.5000, L500.2500 ####[facility] [address] [place], [address] VISTA UDS PH 4 Normal [facility] Comment on above: Performed By: #### L 700.6800, L501.9100, L100.0100, L505.5000, L500.2500 ####[facility] [address] [place], [address] Urine amphetamine measuremen tOrdered By: Maxx Lopez on 01-08-2024 Amphetamines Ql (U) Positive High <1000 ng/mL [facility] Urine barbiturates measureme ntOrdered By: Maxx Lopez on 01-08-2024 Urine Barbiturates Screen Negative < 200 ng/mL [facility] Urine benzodiazepine levelOr dered By: Maxx Lopez on 01-08-2024 Benzodiazepines Ql (U) Negative < 200 ng/mL [facility] Urine cocaine levelOrdered B y: Maxx Lopez on 01-08-2024 Cocaine Ql (U) Negative < 300 ng/mL [facility] Urine zpffn-2-usfirfzjarzcae abinol (THC) measurementOrdered By: Maxx Lopez on 01-08-2024 Cannabinoids Screen Ql (U) Negative < 50 ng/mL [facility] Urine methylenedioxymethamph etamine (MDMA) measurementOrdered By: Maxx Lopez on 01-08-2024 MDMA (Ecstasy) Screen Positive High < 500 ng/mL [facility] Urine phencyclidine (PCP) de tectionOrdered By: Maxx Lopez on 01-08-2024 Phencyclidine Ql (U) Negative < 25 ng/mL [facility] White blood cell (WBC) count Ordered By: Maxx Lopez on 01-08-2024 WBC (Bld) [#/Vol] 7.1 10*3/uL 4.4-11.[address] 12-26-2023 36 Mailed letter to contact the office. Normal [address] 12-20-2023 36 Vanessa Booth MD 12/13/23 6:51 AM Note Rx sent, OARRS report done, no inconsistencies, only partial prescriptions were sent and she needs an appointment IBRAHIMA to continue to get these medicines through our office Left a message to return call. Normal [facility] Alcohol, Blood (Medical)-Ser on 12-20-2023 SERUM ETOH < 3.0 Normal [facility] Comment on above: Result Comment: The serum:whole blood ethanol ratio is approximately 1.14and varies slightly with hematocrit.Medical Alcohol reference interval and critical value innon-tolerant individuals; 50 - 100 Impairment 100 Intoxication 100 - 250 Severe Poisoning 250 - 400 Deep/possible fatal coma Performed By: #### L 501.9100, L500.2500, L100.0100, L505.5000, L700.6800 ####[facility] [address] [place], [place], [id number] Basic Metabolic Profile (BMP )on 12-20-2023 BUN/CRE 17.4 RATIO Normal 10-20 [facility] Comment on above: Performed By: #### L 501.9100, L500.2500, L100.0100, L505.5000, L700.6800 ####[facility] [address] [place], [address] CA,Total 9.8 mg/dL Normal 8.5-10.1 [facility] Comment on above: Performed By: #### L 501.9100, L500.2500, L100.0100, L505.5000, L700.6800 ####[facility] [address] [place], [address] Chloride [Moles/Vol] 105 mmol/L Normal 98-107 [facility] Comment on above: Performed By: #### L 501.9100, L500.2500, L100.0100, L505.5000, L700.6800 ####[facility] [address] [place], [address] CO2 [Moles/Vol] 23.0 mmol/L Normal 21.0-32.0 [facility] Comment on above: Performed By: #### L 501.9100, L500.2500, L100.0100, L505.5000, L700.6800 ####[facility] [address] [place], [address] Creatinine [Mass/Vol] 0.52 mg/dL Low 0.55-1.02 [facility] Comment on above: Result Comment: The validity of the calculated GFR GFRAA in patients over70 years has not been determined. Clinical correlation isessential. Performed By: #### L 501.9100, L500.2500, L100.0100, L505.5000, L700.6800 ####[facility] [address] [place], [address] EST GFR - AA 187 mL/min Normal >60 [facility] Comment on above: Result Comment: Afri can [place] GFR Calc Performed By: #### L 501.9100, L500.2500, L100.0100, L505.5000, L700.6800 ####[facility] [address] [place], [address] GAP 11 Normal 5-15 [facility] Comment on above: Performed By: #### L 501.9100, L500.2500, L100.0100, L505.5000, L700.6800 ####[facility] [address] [place], [address] GFR/1.73 sq M.predicted among non-blacks MDRD (S/P/Bld) [Vol rate/Area] 154 mL/min/{1.73_m2} Normal >60 [facility] Comment on above: Result Comment: Non- GFR Calc Performed By: #### L 501.9100, L500.2500, L100.0100, L505.5000, L700.6800 ####[facility] [address] [place], [address] Glucose [Mass/Vol] 100 mg/dL Normal 74-106 [facility] Comment on above: Result Comment: Fast ing Glucose result from 100 to 125 mg/dLsuggests IMPAIRED HOMEOSTASIS per A.D.A. criteria. Performed By: #### L 501.9100, L500.2500, L100.0100, L505.5000, L700.6800 ####[facility] [address] [place], [address] Potassium [Moles/Vol] 2.9 mmol/L Low 3.5-5.1 [facility] Comment on above: Performed By: #### L 501.9100, L500.2500, L100.0100, L505.5000, L700.6800 ####[facility] [address] [place], [address] Sodium [Moles/Vol] 138 mmol/L Normal 136-145 [facility] Comment on above: Performed By: #### L 501.9100, L500.2500, L100.0100, L505.5000, L700.6800 ####[facility] [address] [place], [address] Urea nitrogen [Mass/Vol] 9 mg/dL Normal 7-18 [facility] Comment on above: Performed By: #### L 501.9100, L500.2500, L100.0100, L505.5000, L700.6800 ####[facility] [address] [place], [address] CBC W/Diff, Automatedon 11-0 6-2023 Absolute Lymph 2.91 X10 3/uL Normal 0.83-4.51 [facility] Comment on above: Performed By: #### L 501.9100, L500.2500, L100.0100, L505.5000, L700.6800 ####[facility] [address] [place], [address] Absolute Neut 5.2 X10 3/uL Normal 2.0-7.7 [facility] Comment on above: Performed By: #### L 501.9100, L500.2500, L100.0100, L505.5000, L700.6800 ####[facility] [address] [place], [address] Basophils/100 WBC (Bld) 0.3 % Normal 0-1 [facility] Comment on above: Performed By: #### L 501.9100, L500.2500, L100.0100, L505.5000, L700.6800 ####[facility] [address] [place], [address] Eosinophils/100 WBC (Bld) 2.4 % Normal 0-5 [facility] Comment on above: Performed By: #### L 501.9100, L500.2500, L100.0100, L505.5000, L700.6800 ####[facility] [address] [place], [address] Erythrocyte distribution width (RBC) [Ratio] 12.6 % Normal 11.6-14.6 [facility] Comment on above: Performed By: #### L 501.9100, L500.2500, L100.0100, L505.5000, L700.6800 ####[facility] [address] [place], [address] Hematocrit (Bld) [Volume fraction] 40.6 % Normal 37-47 [facility] Comment on above: Performed By: #### L 501.9100, L500.2500, L100.0100, L505.5000, L700.6800 ####[facility] [address] [place], [address] Hemoglobin (Bld) [Mass/Vol] 14.0 g/dL Normal 12.0-15.0 [facility] Comment on above: Performed By: #### L 501.9100, L500.2500, L100.0100, L505.5000, L700.6800 ####[facility] [address] [place], [address] IG% 0.200 Normal 0.0-0.9 [facility] Comment on above: Result Comment: IG% - Immature Granulocytes (promyelocytes, myelocytes andmetamyelocytes) > 1% indicates that a LEFT SHIFT is Present. Performed By: #### L 501.9100, L500.2500, L100.0100, L505.5000, L700.6800 ####[facility] [address] [place], [address] Lymphocytes/100 WBC (Bld) 32.1 % Normal 19-41 [facility] Comment on above: Performed By: #### L 501.9100, L500.2500, L100.0100, L505.5000, L700.6800 ####[facility] [address] [place], [address] MCH (RBC) [Entitic mass] 32.3 pg High 27.0-32.0 [facility] Comment on above: Performed By: #### L 501.9100, L500.2500, L100.0100, L505.5000, L700.6800 ####[facility] [address] [place], [address] MCHC (RBC) [Mass/Vol] 34.5 g/dL Normal 32-36 [facility] Comment on above: Performed By: #### L 501.9100, L500.2500, L100.0100, L505.5000, L700.6800 ####[facility] [address] [place], [address] MCV (RBC) [Entitic vol] 93.8 fL Normal 81-[address] [facility] Comment on above: Performed By: #### L 501.9100, L500.2500, L100.0100, L505.5000, L700.6800 ####[facility] [address] [place], [address] Monocytes/100 WBC (Bld) 8.0 % Normal 0-[address] [facility] Comment on above: Performed By: #### L 501.9100, L500.2500, L100.0100, L505.5000, L700.6800 ####[facility] [address] [place], [address] Neutrophils/100 WBC (Bld) 57.0 % Normal 47-70 [facility] Comment on above: Performed By: #### L 501.9100, L500.2500, L100.0100, L505.5000, L700.6800 ####[facility] [address] [place], [address] Nucleated RBC (Bld) [#/Vol] 0 10*3/uL Normal 0-5 [facility] Comment on above: Performed By: #### L 501.9100, L500.2500, L100.0100, L505.5000, L700.6800 ####[facility] [address] [place], [address] Platelet mean volume (Bld) [Entitic vol] 10.8 fL Normal 6.2-12.0 [facility] Comment on above: Performed By: #### L 501.9100, L500.2500, L100.0100, L505.5000, L700.6800 ####[facility] [address] [place], [address] Platelets (Bld) [#/Vol] 282 10*3/uL Normal 150-450 [facility] Comment on above: Performed By: #### L 501.9100, L500.2500, L100.0100, L505.5000, L700.6800 ####[facility] [address] [place], [address] RBC (Bld) [#/Vol] 4.33 10*6/uL Normal 4.2-5.4 [facility] Comment on above: Performed By: #### L 501.9100, L500.2500, L100.0100, L505.5000, L700.6800 ####[facility] [address] [place], [address] RDW SD 42.9 fl Normal 35.1-43.9 [facility] Comment on above: Performed By: #### L 501.9100, L500.2500, L100.0100, L505.5000, L700.6800 ####[facility] [address] [place], [address] WBC (Bld) [#/Vol] 9.1 10*3/uL Normal 4.4-11.0 [facility] Comment on above: Performed By: #### L 501.9100, L500.2500, L100.0100, L505.5000, L700.6800 ####[facility] [address] [place], [address] Emergency Department Summary on 12-20-2023 Emergency Department Summary Normal [facility] ,Serum,hCG Quali.on 12-20-2023 HCG, SERUM QUAL Negative Normal [facility] Comment on above: Performed By: #### L 501.9100, L500.2500, L100.0100, L505.5000, L700.6800 ####[facility] [address] [place], [address] Urinalysis, Completeon 12-19 BACTERIA Normal None Seen [facility] Comment on above: Order Comment: CLEAN CATCH Result Comment: OSVALDO ENT BEING TRANSFERED Performed By: #### L 400.0001 ####[facility] [address] [place], [address] BILIRUBIN URINE Normal Negative [facility] Comment on above: Order Comment: CLEAN CATCH Result Comment: OSVALDO ENT BEING TRANSFERED Performed By: #### L 400.0001 ####[facility] [address] [place], [address] Clarity (U) Normal Clear [facility] Comment on above: Order Comment: CLEAN CATCH Result Comment: OSVALDO ENT BEING TRANSFERED Performed By: #### L 400.0001 ####[facility] [address] [place], [address] Color (U) Normal Yellow [facility] Comment on above: Order Comment: CLEAN CATCH Result Comment: OSVALDO ENT BEING TRANSFERED Performed By: #### L 400.0001 ####[facility] [address] [place], [address] EPI,SQUAMOUS Normal 5-10 [facility] Comment on above: Order Comment: CLEAN CATCH Result Comment: OSVALDO ENT BEING TRANSFERED Performed By: #### L 400.0001 ####[facility] [address] [place], [address] GLUCOSE, UR Normal Normal [facility] Comment on above: Order Comment: CLEAN CATCH Result Comment: OSVALDO ENT BEING TRANSFERED Performed By: #### L 400.0001 ####[facility] [address] [place], [address] KETONE UR Normal Negative [facility] Comment on above: Order Comment: CLEAN CATCH Result Comment: OSVALDO ENT BEING TRANSFERED Performed By: #### L 400.0001 ####[facility] [address] [place], [address] LEUK ESTERASE Normal Negative [facility] Comment on above: Order Comment: CLEAN CATCH Result Comment: OSVALDO ENT BEING TRANSFERED Performed By: #### L 400.0001 ####[facility] [address] [place], [address] Mucus Ql (Urine sed) Normal [facility] Comment on above: Order Comment: CLEAN CATCH Result Comment: OSVALDO ENT BEING TRANSFERED Performed By: #### L 400.0001 ####[facility] [address] [place], [address] Nitrite Ql (U) Normal Negative [facility] Comment on above: Order Comment: CLEAN CATCH Result Comment: OSVALDO ENT BEING TRANSFERED Performed By: #### L 400.0001 ####[facility] [address] [place], [address] OCCULT BLOOD-UR Normal Negative [facility] Comment on above: Order Comment: CLEAN CATCH Result Comment: OSVALDO ENT BEING TRANSFERED Performed By: #### L 400.0001 ####[facility] [address] [place], [address] pH UR Normal 5.0 - 8.0 [facility] Comment on above: Order Comment: CLEAN CATCH Result Comment: OSVALDO ENT BEING TRANSFERED Performed By: #### L 400.0001 ####[facility] [address] [place], [address] PROT DIPSTX Normal Negative [facility] Comment on above: Order Comment: CLEAN CATCH Result Comment: OSVALDO ENT BEING TRANSFERED Performed By: #### L 400.0001 ####[facility] [address] [place], [address] RBC Normal 0-5 [facility] Comment on above: Order Comment: CLEAN CATCH Result Comment: OSVALDO ENT BEING TRANSFERED Performed By: #### L 400.0001 ####[facility] [address] [place], [address] SP.GR. DIPSTX Normal 1.002-1.03 0 [facility] Comment on above: Order Comment: CLEAN CATCH Result Comment: OSVALDO ENT BEING TRANSFERED Performed By: #### L 400.0001 ####[facility] [address] [place], [address] UR Preservative Normal [facility] Comment on above: Order Comment: CLEAN CATCH Result Comment: OSVALDO ENT BEING TRANSFERED Performed By: #### L 400.0001 ####[facility] [address] [place], [address] UROBILI Normal Normal [facility] Comment on above: Order Comment: CLEAN CATCH Result Comment: OSVALDO ENT BEING TRANSFERED Performed By: #### L 400.0001 ####[facility] [address] [place], [address] WBC Normal 0-5 [facility] Comment on above: Order Comment: CLEAN CATCH Result Comment: OSVALDO ENT BEING TRANSFERED Performed By: #### L 400.0001 ####[facility] [address] [place], [address] Urine Drug Screen (VISTA)on 12-20-2023 AMPHETAMINES Normal <1000 ng/mL [facility] Comment on above: Result Comment: OSVALDO ENT BEING TRANSFERED Performed By: #### L 501.9100, L500.2500, L100.0100, L505.5000, L700.6800 ####[facility] [address] [place], [address] BARBITIURATES Normal < 200 ng/mL [facility] Comment on above: Result Comment: OSVALDO ENT BEING TRANSFERED Performed By: #### L 501.9100, L500.2500, L100.0100, L505.5000, L700.6800 ####[facility] [address] [place], [address] BENZODIAZIPINE Normal < 200 ng/mL [facility] Comment on above: Result Comment: OSVALDO ENT BEING TRANSFERED Performed By: #### L 501.9100, L500.2500, L100.0100, L505.5000, L700.6800 ####[facility] [address] [place], [address] COCAINE Normal < 300 ng/mL [facility] Comment on above: Result Comment: OSVALDO ENT BEING TRANSFERED Performed By: #### L 501.9100, L500.2500, L100.0100, L505.5000, L700.6800 ####[facility] [address] [place], [address] DRUG CONFIRM Normal [facility] Comment on above: Result Comment: OSVALDO ENT BEING TRANSFERED Performed By: #### L 501.9100, L500.2500, L100.0100, L505.5000, L700.6800 ####[facility] [address] [place], [address] ECSTACY Normal < 500 ng/mL [facility] Comment on above: Result Comment: OSVALDO ENT BEING TRANSFERED Performed By: #### L 501.9100, L500.2500, L100.0100, L505.5000, L700.6800 ####[facility] [address] [place], [address] METHADONE Normal < 300 ng/mL [facility] Comment on above: Result Comment: OSVALDO ENT BEING TRANSFERED Performed By: #### L 501.9100, L500.2500, L100.0100, L505.5000, L700.6800 ####[facility] [address] [place], [address] OPIATES Normal < 300 ng/mL [facility] Comment on above: Result Comment: OSVALDO ENT BEING TRANSFERED Performed By: #### L 501.9100, L500.2500, L100.0100, L505.5000, L700.6800 ####[facility] [address] [place], [address] PCP Normal < 25 ng/mL [facility] Comment on above: Result Comment: OSVALDO ENT BEING TRANSFERED Performed By: #### L 501.9100, L500.2500, L100.0100, L505.5000, L700.6800 ####[facility] [address] [place], [address] THC Normal < 50 ng/mL [facility] Comment on above: Result Comment: OSVALDO ENT BEING TRANSFERED Performed By: #### L 501.9100, L500.2500, L100.0100, L505.5000, L700.6800 ####[facility] [address] [place], [address] VISTA UDS PH Normal [facility] Comment on above: Result Comment: OSVALDO ENT BEING TRANSFERED Performed By: #### L 501.9100, L500.2500, L100.0100, L505.5000, L700.6800 ####[facility] [address] [place], [address] 36on 12-18-2023 36 Called pt, no answer and no vm. [facility] 3612-15-2023 36 Referrals closed 36 Yes, okay to close [facility] 3612-14-2023 36 Vanessa Booth MD 12/13/23 6:51 AM Note Rx sent, OARRS report done, no inconsistencies, only partial prescriptions were sent and she needs an appointment IBRAHIMA to continue to get these medicines through our office Left a message to return call. [facility] 36on 12-13-2023 36 Vanessa Booth MD 12/13/23 6:51 AM Note Rx sent, OARRS report done, no inconsistencies, only partial prescriptions were sent and she needs an appointment IBRAHIMA to continue to get these medicines through our office Left a message to return call. [facility] 36 Rx sent, OARRS repor t done, no inconsistencies, only partial prescriptions were sent and she needs an appointment IBRAHIMA to continue to get these medicines through our office [facility] 36on 12-12-2023 36 CSA 06/27/23-Lyrica [facility] 36 Ordering provider: Dhaval Moon Date of [...] of last refill (see medication tab): 10/24/23 Normal [facility] Acute Abdomen Inc Cheston Acute Abdomen Inc Chest Normal [facility] Emergency Department Summary on 12-06-2023 Emergency Department Summary Normal [facility] Neck for Soft Tissueon 12-05 Neck for Soft Tissue Normal [facility] 36on 11-28-2023 36 No patient response. Closed Normal [facility] Alcohol, Blood (Medical)-Ser umon 11-27-2023 SERUM ETOH < 3.0 Normal [facility] Comment on above: Result Comment: The serum:whole blood ethanol ratio is approximately 1.14and varies slightly with hematocrit.Medical Alcohol reference interval and critical value innon-tolerant individuals; 50 - 100 Impairment 100 Intoxication 100 - 250 Severe Poisoning 250 - 400 Deep/possible fatal coma Performed By: #### L 505.5000, L100.0100, L700.6800, L501.9100, L500.2500 ####[facility] [address] [facility] [address] Basic Metabolic Profile (BMP )on 11-27-2023 BUN/CRE 22.1 RATIO High 10-20 [facility] Comment on above: Performed By: #### L 505.5000, L100.0100, L700.6800, L501.9100, L500.2500 ####[facility] [address] [facility] [address] CA,Total 9.3 mg/dL Normal 8.5-10.1 [facility] Comment on above: Performed By: #### L 505.5000, L100.0100, L700.6800, L501.9100, L500.2500 ####[facility] [address] [facility] [address] Chloride [Moles/Vol] 106 mmol/L Normal 98-107 [facility] Comment on above: Performed By: #### L 505.5000, L100.0100, L700.6800, L501.9100, L500.2500 ####[facility] [address] [place], [address] CO2 [Moles/Vol] 25.0 mmol/L Normal 21.0-32.0 [facility] Comment on above: Performed By: #### L 505.5000, L100.0100, L700.6800, L501.9100, L500.2500 ####[facility] [address] [place], [address] Creatinine [Mass/Vol] 0.41 mg/dL Low 0.55-1.02 [facility] Comment on above: Result Comment: The validity of the calculated GFR GFRAA in patients over70 years has not been determined. Clinical correlation isessential. Performed By: #### L 505.5000, L100.0100, L700.6800, L501.9100, L500.2500 ####[facility] [address] [place], [address] ECRCL 235.41 ml/min Normal [facility] Comment on above: Performed By: #### L 505.5000, L100.0100, L700.6800, L501.9100, L500.2500 ####[facility] [address] [place], [address] EST GFR - AA 246 mL/min Normal >60 [facility] Comment on above: Result Comment: Afri can [place] GFR Calc Performed By: #### L 505.5000, L100.0100, L700.6800, L501.9100, L500.2500 ####[facility] [address] [place], [address] GAP 6 Normal 5-15 [facility] Comment on above: Performed By: #### L 505.5000, L100.0100, L700.6800, L501.9100, L500.2500 ####[facility] [address] [place], [address] GFR/1.73 sq M.predicted among non-blacks MDRD (S/P/Bld) [Vol rate/Area] 204 mL/min/{1.73_m2} Normal >60 [facility] Comment on above: Result Comment: Non- GFR Calc Performed By: #### L 505.5000, L100.0100, L700.6800, L501.9100, L500.2500 ####[facility] [address] [place], [address] Glucose [Mass/Vol] 96 mg/dL Normal 74-106 [facility] Comment on above: Performed By: #### L 505.5000, L100.0100, L700.6800, L501.9100, L500.2500 ####[facility] [address] [place], [address] Potassium [Moles/Vol] 2.8 mmol/L Low 3.5-5.1 [facility] Comment on above: Performed By: #### L 505.5000, L100.0100, L700.6800, L501.9100, L500.2500 ####[facility] [address] [place], [address] Sodium [Moles/Vol] 138 mmol/L Normal 136-145 [facility] Comment on above: Performed By: #### L 505.5000, L100.0100, L700.6800, L501.9100, L500.2500 ####[facility] [address] [place], [address] Urea nitrogen [Mass/Vol] 9 mg/dL Normal 7-18 [facility] Comment on above: Performed By: #### L 505.5000, L100.0100, L700.6800, L501.9100, L500.2500 ####[facility] [address] [place], [address] CBC W/Diff, Automatedon 11-13 MACROCYTOSIS RARE Normal [facility] Comment on above: Performed By: #### L 505.5000, L100.0100, L700.6800, L501.9100, L500.2500 ####[facility] [address] [place], [address] Anisocytosis Ql (Bld) RARE Normal [facility] Comment on above: Performed By: #### L 505.5000, L100.0100, L700.6800, L501.9100, L500.2500 ####[facility] [address] [place], [address] PLT EST ADEQUATE Normal ADEQ [facility] Comment on above: Performed By: #### L 505.5000, L100.0100, L700.6800, L501.9100, L500.2500 ####[facility] [address] [place], [address] RED CELL MORPH N CHROM Normal NORM C C [facility] Comment on above: Performed By: #### L 505.5000, L100.0100, L700.6800, L501.9100, L500.2500 ####[facility] [address] [place], [address] Emergency Department Summary on 11-27-2023 Emergency Department Summary Normal [facility] ,Serum,hCG Quali.on 11-27-2023 HCG, SERUM QUAL Negative Normal [facility] Comment on above: Performed By: #### L 505.5000, L100.0100, L700.6800, L501.9100, L500.2500 ####[facility] [address] [place], [address] Urine Drug Screen (VISTA)on 11-27-2023 AMPHETAMINES Positive Abnormal <1000 ng/mL [facility] Comment on above: Performed By: #### L 505.5000, L100.0100, L700.6800, L501.9100, L500.2500 ####[facility] [address] [place] [address] BARBITIURATES Negative Normal < 200 ng/mL [facility] Comment on above: Performed By: #### L 505.5000, L100.0100, L700.6800, L501.9100, L500.2500 ####[facility] [address] [place] [address] BENZODIAZIPINE Negative Normal < 200 ng/mL [facility] Comment on above: Performed By: #### L 505.5000, L100.0100, L700.6800, L501.9100, L500.2500 ####[facility] [address] [place] [address] COCAINE Negative Normal < 300 ng/mL [facility] Comment on above: Performed By: #### L 505.5000, L100.0100, L700.6800, L501.9100, L500.2500 ####[facility] [address] [place] [address] ECSTACY Positive Abnormal < 500 ng/mL [facility] Comment on above: Performed By: #### L 505.5000, L100.0100, L700.6800, L501.9100, L500.2500 ####[facility] [address] [place] [address] METHADONE Negative Normal < 300 ng/mL [facility] Comment on above: Performed By: #### L 505.5000, L100.0100, L700.6800, L501.9100, L500.2500 ####[facility] [address] [place] [address] OPIATES Negative Normal < 300 ng/mL [facility] Comment on above: Performed By: #### L 505.5000, L100.0100, L700.6800, L501.9100, L500.2500 ####[facility] [address] [place], [address] PCP Negative Normal < 25 ng/mL [facility] Comment on above: Performed By: #### L 505.5000, L100.0100, L700.6800, L501.9100, L500.2500 ####[facility] [address] [place], [address] THC Negative Normal < 50 ng/mL [facility] Comment on above: Performed By: #### L 505.5000, L100.0100, L700.6800, L501.9100, L500.2500 ####[facility] [address] [place], [address] VISTA UDS PH 5 Normal [facility] Comment on above: Performed By: #### L 505.5000, L100.0100, L700.6800, L501.9100, L500.2500 ####[facility] [address] [place], [address] Urine Cultureon 11-07-2023 URC Mixed Gram Positive Organisms Independence Count 80,000-100,000 MIXC Mixed contaminants. Submit a new specimen if indicated. Normal [facility] Comment on above: Performed By: #### M 100.2200 ####[facility] [address] [place], [address] Basic Metabolic Profile (BMP )on 11-06-2023 BUN/CRE 13.6 RATIO Normal 10-20 [facility] Comment on above: Performed By: #### L 500.2500, L501.9520, L501.5200 ####[facility] [address] [place], [address] CA,Total 8.4 mg/dL Low 8.5-10.1 [facility] Comment on above: Performed By: #### L 500.2500, L501.9520, L501.5200 ####[facility] [address] [place], [address] Chloride [Moles/Vol] 108 mmol/L High 98-107 [facility] Comment on above: Performed By: #### L 500.2500, L501.9520, L501.5200 ####[facility] [address] [place], [address] CO2 [Moles/Vol] 23.0 mmol/L Normal 21.0-32.0 [facility] Comment on above: Performed By: #### L 500.2500, L501.9520, L501.5200 ####[facility] [address] [place], [address] Creatinine [Mass/Vol] 0.37 mg/dL Low 0.55-1.02 [facility] Comment on above: Result Comment: The validity of the calculated GFR GFRAA in patients over70 years has not been determined. Clinical correlation isessential. Performed By: #### L 500.2500, L501.9520, L501.5200 ####[facility] [address] [place], [address] ECRCL 251.83 ml/min Normal [facility] Comment on above: Performed By: #### L 500.2500, L501.9520, L501.5200 ####[facility] [address] [place], [address] EST GFR - AA 278 mL/min Normal >60 [facility] Comment on above: Result Comment: Afri can [place] GFR Calc Performed By: #### L 500.2500, L501.9520, L501.5200 ####[facility] [address] [place], [address] GAP 7 Normal 5-15 [facility] Comment on above: Performed By: #### L 500.2500, L501.9520, L501.5200 ####[facility] [address] [place], [address] GFR/1.73 sq M.predicted among non-blacks MDRD (S/P/Bld) [Vol rate/Area] 230 mL/min/{1.73_m2} Normal >60 [facility] Comment on above: Result Comment: Non- GFR Calc Performed By: #### L 500.2500, L501.9520, L501.5200 ####[facility] [address] [place], [address] Glucose [Mass/Vol] 94 mg/dL Normal 74-106 [facility] Comment on above: Performed By: #### L 500.2500, L501.9520, L501.5200 ####[facility] [address] [place], [address] Potassium [Moles/Vol] 3.9 mmol/L Normal 3.5-5.1 [facility] Comment on above: Performed By: #### L 500.2500, L501.9520, L501.5200 ####[facility] [address] [place], [address] Sodium [Moles/Vol] 138 mmol/L Normal 136-145 [facility] Comment on above: Performed By: #### L 500.2500, L501.9520, L501.5200 ####[facility] [address] [place], [address] Urea nitrogen [Mass/Vol] 5 mg/dL Low 7-18 [facility] Comment on above: Performed By: #### L 500.2500, L501.9520, L501.5200 ####[facility] [address] [place], [address] Magnesiumon 11-06-2023 Magnesium [Mass/Vol] 1.8 mg/dL Normal 1.6-2.6 [facility] Comment on above: Performed By: #### L 500.2500, L501.9520, L501.5200 ####[facility] [address] [place], [address] Thyroid Stim Hormone (TSH)on 11-06-2023 TSH 2.290 uIU/mL Normal 0.358-3.74 0 [facility] Comment on above: Performed By: #### L 500.2500, L501.9520, L501.5200 ####[facility] [address] [place], [address] Alcohol, Blood (Medical)-Ser umon 11-05-2023 SERUM ETOH < 3.0 Normal [facility] Comment on above: Result Comment: The serum:whole blood ethanol ratio is approximately 1.14and varies slightly with hematocrit.Medical Alcohol reference interval and critical value innon-tolerant individuals; 50 - 100 Impairment 100 Intoxication 100 - 250 Severe Poisoning 250 - 400 Deep/possible fatal coma Performed By: #### L 505.5000, L501.9100 ####[facility] [address] [place], [address] Basic Metabolic Profile (BMP )on 11-05-2023 BUN/CRE 17.7 RATIO Normal 10-20 [facility] Comment on above: Performed By: #### L 100.0100, L500.2500 ####[facility] [address] [place], [address] CA,Total 8.9 mg/dL Normal 8.5-10.1 [facility] Comment on above: Performed By: #### L 100.0100, L500.2500 ####[facility] [address] [place], [address] Chloride [Moles/Vol] 104 mmol/L Normal 98-107 [facility] Comment on above: Performed By: #### L 100.0100, L500.2500 ####[facility] [address] [place], [address] CO2 [Moles/Vol] 31.0 mmol/L Normal 21.0-32.0 [facility] Comment on above: Performed By: #### L 100.0100, L500.2500 ####[facility] [address] [place], [address] Creatinine [Mass/Vol] 0.56 mg/dL Normal 0.55-1.02 [facility] Comment on above: Result Comment: The validity of the calculated GFR GFRAA in patients over70 years has not been determined. Clinical correlation isessential. Performed By: #### L 100.0100, L500.2500 ####[facility] [address] [place], [address] ECRCL 165.80 ml/min Normal [facility] Comment on above: Performed By: #### L 100.0100, L500.2500 ####[facility] [address] [place], [address] EST GFR - AA 169 mL/min Normal >60 [facility] Comment on above: Result Comment: Afri can [place] GFR Calc Performed By: #### L 100.0100, L500.2500 ####[facility] [address] [place], [address] GAP 5 Normal 5-15 [facility] Comment on above: Performed By: #### L 100.0100, L500.2500 ####[facility] [address] [place], [address] GFR/1.73 sq M.predicted among non-blacks MDRD (S/P/Bld) [Vol rate/Area] 140 mL/min/{1.73_m2} Normal >60 [facility] Comment on above: Result Comment: Non- GFR Calc Performed By: #### L 100.0100, L500.2500 ####[facility] [address] [place], [address] Glucose [Mass/Vol] 101 mg/dL Normal 74-106 [facility] Comment on above: Result Comment: Fast ing Glucose result from 100 to 125 mg/dLsuggests IMPAIRED HOMEOSTASIS per A.D.A. criteria. Performed By: #### L 100.0100, L500.2500 ####[facility] [address] [place], [address] Potassium [Moles/Vol] 3.2 mmol/L Low 3.5-5.1 [facility] Comment on above: Performed By: #### L 100.0100, L500.2500 ####[facility] [address] [place], [address] Sodium [Moles/Vol] 140 mmol/L Normal 136-145 [facility] Comment on above: Performed By: #### L 100.0100, L500.2500 ####[facility] [address] [place], [address] Urea nitrogen [Mass/Vol] 10 mg/dL Normal 7-18 [facility] Comment on above: Performed By: #### L 100.0100, L500.2500 ####[facility] [address] [place], [address] CBC W/Diff, Automatedon 10-15 Absolute Neut Normal 2.0-7.7 [facility] Comment on above: Result Comment: Canc elled via OM: MD Ordered Performed By: #### L 505.5000, L100.0100, L700.6800, L500.4050 ####[facility] [address] [place], [address] HCT Normal 37-47 [facility] Comment on above: Result Comment: Canc elled via OM: Ordered Performed By: #### L 505.5000, L100.0100, L700.6800, L500.4050 ####[facility] [address] [place], [address] HGB Normal 12.0-15.0 [facility] Comment on above: Result Comment: Canc elled via OM: MD Ordered Performed By: #### L 505.5000, L100.0100, L700.6800, L500.4050 ####[facility] [address] [place], [address] MCH Normal 27.0-32.0 [facility] Comment on above: Result Comment: Canc elled via OM: MD Ordered Performed By: #### L 505.5000, L100.0100, L700.6800, L500.4050 ####[facility] [address] [place], [address] MCHC Normal 32-36 [facility] Comment on above: Result Comment: Canc elled via OM: MD Ordered Performed By: #### L 505.5000, L100.0100, L700.6800, L500.4050 ####[facility] [address] [place], [address] MCV Normal 81-99 [facility] Comment on above: Result Comment: Canc elled via OM: MD Ordered Performed By: #### L 505.5000, L100.0100, L700.6800, L500.4050 ####[facility] [address] [place], [address] NEUT% Normal 47-70 [facility] Comment on above: Result Comment: Canc elled via OM: MD Ordered Performed By: #### L 505.5000, L100.0100, L700.6800, L500.4050 ####[facility] [address] [place], [address] PLT Normal 150-450 [facility] Comment on above: Result Comment: Canc elled via OM: MD Ordered Performed By: #### L 505.5000, L100.0100, L700.6800, L500.4050 ####[facility] [address] [place], [address] RBC Normal 4.2-5.4 [facility] Comment on above: Result Comment: Canc elled via OM: MD Ordered Performed By: #### L 505.5000, L100.0100, L700.6800, L500.4050 ####[facility] [address] [place], [address] RDW CV Normal 11.6-14.6 [facility] Comment on above: Result Comment: Canc elled via OM: MD Ordered Performed By: #### L 505.5000, L100.0100, L700.6800, L500.4050 ####[facility] [address] [place], [address] RDW SD Normal 35.1-43.9 [facility] Comment on above: Result Comment: Canc elled via OM: MD Ordered Performed By: #### L 505.5000, L100.0100, L700.6800, L500.4050 ####[facility] [address] [place], [address] WBC Normal 4.4-11.0 [facility] Comment on above: Result Comment: Canc elled via OM: MD Ordered Performed By: #### L 505.5000, L100.0100, L700.6800, L500.4050 ####[facility] [address] [place], [address] Absolute Lymph 3.21 X10 3/uL Normal 0.83-4.51 [facility] Comment on above: Performed By: #### L 100.0100, L500.2500 ####[facility] [address] [place], [address] Absolute Neut 2.3 X10 3/uL Normal 2.0-7.7 [facility] Comment on above: Performed By: #### L 100.0100, L500.2500 ####[facility] [address] [place], [address] Basophils/100 WBC (Bld) 0.9 % Normal 0-1 [facility] Comment on above: Performed By: #### L 100.0100, L500.2500 ####[facility] [address] [place], [address] Eosinophils/100 WBC (Bld) 3.2 % Normal 0-5 [facility] Comment on above: Performed By: #### L 100.0100, L500.2500 ####[facility] [address] [place], [address] Erythrocyte distribution width (RBC) [Ratio] 15.3 % High 11.6-14.6 [facility] Comment on above: Performed By: #### L 100.0100, L500.2500 ####[facility] [address] [place], [address] Hematocrit (Bld) [Volume fraction] 46.7 % Normal 37-47 [facility] Comment on above: Performed By: #### L 100.0100, L500.2500 ####[facility] [address] [place], [address] Hemoglobin (Bld) [Mass/Vol] 15.1 g/dL High 12.0-15.0 [facility] Comment on above: Performed By: #### L 100.0100, L500.2500 ####[facility] [address] [place], [address] IG% 0.200 Normal 0.0-0.9 [facility] Comment on above: Result Comment: IG% - Immature Granulocytes (promyelocytes, myelocytes andmetamyelocytes) > 1% indicates that a LEFT SHIFT is Present. Performed By: #### L 100.0100, L500.2500 ####[facility] [address] [place], [address] Lymphocytes/100 WBC (Bld) 49.2 % High 19-41 [facility] Comment on above: Performed By: #### L 100.0100, L500.2500 ####[facility] [address] [place], [address] MCH (RBC) [Entitic mass] 32.1 pg High 27.0-32.0 [facility] Comment on above: Performed By: #### L 100.0100, L500.2500 ####[facility] [address] [place], [address] MCHC (RBC) [Mass/Vol] 32.3 g/dL Normal 32-36 [facility] Comment on above: Performed By: #### L 100.0100, L500.2500 ####[facility] [address] [place], [address] MCV (RBC) [Entitic vol] 99.2 fL High 81-99 [facility] Comment on above: Performed By: #### L 100.0100, L500.2500 ####[facility] [address] [place], [address] Monocytes/100 WBC (Bld) 10.7 % High 0-10 [facility] Comment on above: Performed By: #### L 100.0100, L500.2500 ####[facility] [address] [place], [address] Neutrophils/100 WBC (Bld) 35.8 % Low 47-70 [facility] Comment on above: Performed By: #### L 100.0100, L500.2500 ####[facility] [address] [place], [address] Nucleated RBC (Bld) [#/Vol] 0 10*3/uL Normal 0-5 [facility] Comment on above: Performed By: #### L 100.0100, L500.2500 ####[facility] [address] [place], [address] Platelet mean volume (Bld) [Entitic vol] 10.3 fL Normal 6.2-12.0 [facility] Comment on above: Performed By: #### L 100.0100, L500.2500 ####[facility] [address] [place], [address] Platelets (Bld) [#/Vol] 238 10*3/uL Normal 150-450 [facility] Comment on above: Performed By: #### L 100.0100, L500.2500 ####[facility] [address] [place], [address] RBC (Bld) [#/Vol] 4.71 10*6/uL Normal 4.2-5.4 [facility] Comment on above: Performed By: #### L 100.0100, L500.2500 ####[facility] [address] [place], [address] RDW SD 56.4 fl High 35.1-43.9 [facility] Comment on above: Performed By: #### L 100.0100, L500.2500 ####[facility] [address] [place], [address] WBC (Bld) [#/Vol] 6.5 10*3/uL Normal 4.4-11.0 [facility] Comment on above: Performed By: #### L 100.0100, L500.2500 ####[facility] [address] [place], [address] Comprehensive Metabolic Prof ilon 11-05-2023 ALB Normal 3.2-5.0 [facility] Comment on above: Result Comment: Canc elled via OM: MD Ordered Performed By: #### L 505.5000, L100.0100, L700.6800, L500.4050 ####[facility] [address] [place], [address] ALK P Normal 45-117 [facility] Comment on above: Result Comment: Canc elled via OM: MD Ordered Performed By: #### L 505.5000, L100.0100, L700.6800, L500.4050 ####[facility] [address] [place], [address] ALT Normal 13-56 [facility] Comment on above: Result Comment: Canc elled via OM: MD Ordered Performed By: #### L 505.5000, L100.0100, L700.6800, L500.4050 ####[facility] [address] [place], [address] AST Normal 15-37 [facility] Comment on above: Result Comment: Canc elled via OM: MD Ordered Performed By: #### L 505.5000, L100.0100, L700.6800, L500.4050 ####[facility] [address] [place], [address] BUN Normal 7-18 [facility] Comment on above: Result Comment: Canc elled via OM: MD Ordered Performed By: #### L 505.5000, L100.0100, L700.6800, L500.4050 ####[facility] [address] [place], [address] BUN/CRE Normal 10-20 [facility] Comment on above: Result Comment: Canc elled via OM: MD Ordered Performed By: #### L 505.5000, L100.0100, L700.6800, L500.4050 ####[facility] [address] [place], [address] CA,Total Normal 8.5-10.1 [facility] Comment on above: Result Comment: Canc elled via OM: MD Ordered Performed By: #### L 505.5000, L100.0100, L700.6800, L500.4050 ####[facility] [address] [place], [address] CL Normal 98-107 [facility] Comment on above: Result Comment: Canc elled via OM: MD Ordered Performed By: #### L 505.5000, L100.0100, L700.6800, L500.4050 ####[facility] [address] [place], [address] CO2 Normal 21.0-32.0 [facility] Comment on above: Result Comment: Canc elled via OM: MD Ordered Performed By: #### L 505.5000, L100.0100, L700.6800, L500.4050 ####[facility] [address] [place], [address] CREAT,SERUM Normal 0.55-1.02 [facility] Comment on above: Result Comment: Canc elled via OM: MD Ordered Performed By: #### L 505.5000, L100.0100, L700.6800, L500.4050 ####[facility] [address] [place], [address] EST GFR Normal >60 [facility] Comment on above: Result Comment: Canc elled via OM: MD Ordered Performed By: #### L 505.5000, L100.0100, L700.6800, L500.4050 ####[facility] [address] [place], [address] EST GFR - AA Normal >60 [facility] Comment on above: Result Comment: Canc elled via OM: MD Ordered Performed By: #### L 505.5000, L100.0100, L700.6800, L500.4050 ####[facility] [address] [place], [address] GAP Normal 5-15 [facility] Comment on above: Result Comment: Canc elled via OM: MD Ordered Performed By: #### L 505.5000, L100.0100, L700.6800, L500.4050 ####[facility] [address] [place], [address] GLU Normal 74-106 [facility] Comment on above: Result Comment: Canc elled via OM: MD Ordered Performed By: #### L 505.5000, L100.0100, L700.6800, L500.4050 ####[facility] [address] [place], [address] Potassium Normal 3.5-5.1 [facility] Comment on above: Result Comment: Canc elled via OM: MD Ordered Performed By: #### L 505.5000, L100.0100, L700.6800, L500.4050 ####[facility] [address] [place], [address] T BILI Normal 0.20-1.00 [facility] Comment on above: Result Comment: Canc elled via OM: MD Ordered Performed By: #### L 505.5000, L100.0100, L700.6800, L500.4050 ####[facility] [address] [place], [address] T PROT Normal 6.4-8.2 [facility] Comment on above: Result Comment: Canc elled via OM: MD Ordered Performed By: #### L 505.5000, L100.0100, L700.6800, L500.4050 ####[facility] [address] [place], [address] Comprehensive Metabolic Profil Normal 136-145 [facility] Comment on above: Result Comment: Canfelicitas elled via OM: MD Ordered Performed By: #### L 505.5000, L100.0100, L700.6800, L500.4050 ####[facility] [address] [place], [address] Emergency Department Summary on 11-05-2023 Emergency Department Summary Normal [facility] Emergency Department Summary Normal [facility] H AND P Exam - Hospitaliston 11-05-2023 H&P Exam - Hospitalist Normal [facility] [id number] 11-05-2023 [id number] Normal [facility] Comment on above: Performed By: #### M 8200.2203 ####[facility] [address] [place], [address] ,Serum,hCG Quali.on 11-05-2023 HCG, SERUM QUAL Normal [facility] Comment on above: Result Comment: Rajat elled via OM: MD Ordered Performed By: #### L 505.5000, L100.0100, L700.6800, L500.4050 ####[facility] [address] [place], [address] INTERNAL QC OK? Normal [facility] Comment on above: Result Comment: Rajat elled via OM: MD Ordered Performed By: #### L 505.5000, L100.0100, L700.6800, L500.4050 ####[facility] [address] [place], [address] RECORD KIT LOT# Normal [facility] Comment on above: Result Comment: Rajat elled via OM: MD Ordered Performed By: #### L 505.5000, L100.0100, L700.6800, L500.4050 ####[facility] [address] [place], [address] ,Urineon 09-22-2024 Beta HCG ( test) Ql (U) Negative Normal [facility] Comment on above: Order Comment: COLOR OF URINE MAY AFFECT DIPSTICK RESULTS.IMMIGRATION PARALEGAL TO SPECIFY Result Comment: Very dilute urine specimens, as indicated by a low specificgravity, may not contain associate sales representative levels of hCG.If is still suspected, a first morning urinespecimen should be collected 48 hours later and tested. Performed By: #### L 400.7600, L400.0001 ####[facility] [address] [place], [address] Urinalysis, Completeon 11-04 BACTERIA 3+ /hpf Normal None Seen [facility] Comment on above: Order Comment: COLOR OF URINE MAY AFFECT DIPSTICK RESULTS.IMMIGRATION PARALEGAL TO SPECIFY Performed By: #### L 400.7600, L400.0001 ####[facility] [address] [place], [address] EPI,SQUAMOUS 10-25 SEEN Normal 5-10 [facility] Comment on above: Order Comment: COLOR OF URINE MAY AFFECT DIPSTICK RESULTS.IMMIGRATION PARALEGAL TO SPECIFY Performed By: #### L 400.7600, L400.0001 ####[facility] [address] [place], [address] Mucus Ql (Urine sed) 3+ /hpf Normal [facility] Comment on above: Order Comment: COLOR OF URINE MAY AFFECT DIPSTICK RESULTS.IMMIGRATION PARALEGAL TO SPECIFY Performed By: #### L 400.7600, L400.0001 ####[facility] [address] [place], [address] RBC 10-25 SEEN Normal 0-5 [facility] Comment on above: Order Comment: COLOR OF URINE MAY AFFECT DIPSTICK RESULTS.IMMIGRATION PARALEGAL TO SPECIFY Performed By: #### L 400.7600, L400.0001 ####[facility] [address] [place], [address] WBC 10-25 SEEN Normal 0-5 [facility] Comment on above: Order Comment: COLOR OF URINE MAY AFFECT DIPSTICK RESULTS.IMMIGRATION PARALEGAL TO SPECIFY Performed By: #### L 400.7600, L400.0001 ####[facility] [address] [place], [address] Urine Drug Screen (VISTA)on 11-05-2023 AMPHETAMINES Normal <1000 ng/mL [facility] Comment on above: Result Comment: Canc elled via OM: MD Ordered Performed By: #### L 505.5000, L100.0100, L700.6800, L500.4050 ####[facility] [address] [place], [address] BARBITIURATES Normal < 200 ng/mL [facility] Comment on above: Result Comment: Canc elled via OM: MD Ordered Performed By: #### L 505.5000, L100.0100, L700.6800, L500.4050 ####[facility] [address] [place], [address] BENZODIAZIPINE Normal < 200 ng/mL [facility] Comment on above: Result Comment: Canc elled via OM: MD Ordered Performed By: #### L 505.5000, L100.0100, L700.6800, L500.4050 ####[facility] [address] [place], [address] COCAINE Normal < 300 ng/mL [facility] Comment on above: Result Comment: Canc elled via OM: MD Ordered Performed By: #### L 505.5000, L100.0100, L700.6800, L500.4050 ####[facility] [address] [place], [address] DRUG CONFIRM Normal [facility] Comment on above: Result Comment: Canc elled via OM: MD Ordered Performed By: #### L 505.5000, L100.0100, L700.6800, L500.4050 ####[facility] [address] [place], [address] ECSTACY Normal < 500 ng/mL [facility] Comment on above: Result Comment: Canc elled via OM: MD Ordered Performed By: #### L 505.5000, L100.0100, L700.6800, L500.4050 ####[facility] [address] [place], [address] METHADONE Normal < 300 ng/mL [facility] Comment on above: Result Comment: Canc elled via OM: MD Ordered Performed By: #### L 505.5000, L100.0100, L700.6800, L500.4050 ####[facility] [address] [place], [address] OPIATES Normal < 300 ng/mL [facility] Comment on above: Result Comment: Canc elled via OM: MD Ordered Performed By: #### L 505.5000, L100.0100, L700.6800, L500.4050 ####[facility] [address] [place], [address] PCP Normal < 25 ng/mL [facility] Comment on above: Result Comment: Canc elled via OM: MD Ordered Performed By: #### L 505.5000, L100.0100, L700.6800, L500.4050 ####[facility] [address] [place], [address] THC Normal < 50 ng/mL [facility] Comment on above: Result Comment: Canc elled via OM: MD Ordered Performed By: #### L 505.5000, L100.0100, L700.6800, L500.4050 ####[facility] [address] [place], [address] VISTA UDS PH Normal [facility] Comment on above: Result Comment: Canc elled via OM: MD Ordered Performed By: #### L 505.5000, L100.0100, L700.6800, L500.4050 ####[facility] [address] [place], [address] AMPHETAMINES Positive Abnormal <1000 ng/mL [facility] Comment on above: Performed By: #### L 505.5000, L501.9100 ####[facility] [address] [place], [address] BARBITIURATES Negative Normal < 200 ng/mL [facility] Comment on above: Performed By: #### L 505.5000, L501.9100 ####[facility] [address] [place], [address] BENZODIAZIPINE Negative Normal < 200 ng/mL [facility] Comment on above: Performed By: #### L 505.5000, L501.9100 ####[facility] [address] [place], [address] COCAINE Negative Normal < 300 ng/mL [facility] Comment on above: Performed By: #### L 505.5000, L501.9100 ####[facility] [address] [place], [address] ECSTACY Negative Normal < 500 ng/mL [facility] Comment on above: Performed By: #### L 505.5000, L501.9100 ####[facility] [address] [place], [address] METHADONE Negative Normal < 300 ng/mL [facility] Comment on above: Performed By: #### L 505.5000, L501.9100 ####[facility] [address] [place], [address] OPIATES Negative Normal < 300 ng/mL [facility] Comment on above: Performed By: #### L 505.5000, L501.9100 ####[facility] [address] [place], [address] PCP Negative Normal < 25 ng/mL [facility] Comment on above: Performed By: #### L 505.5000, L501.9100 ####[facility] [address] [place], [place], [id number] THC Negative Normal < 50 ng/mL [facility] Comment on above: Performed By: #### L 505.5000, L501.9100 ####[facility] [address] [place], [place], [id number] VISTA UDS PH 6 Normal [facility] Comment on above: Performed By: #### L 505.5000, L501.9100 ####[facility] [address] [place], [place], [address] 36on 11-03-2023 36 My Chart message 36on 10-24-2023 36 BRENDA Ragland CNP 10/24/23 1:00 PM Note Rx sent for everything except the Zyprexa. This is not a medication I manage or prescribe. Needs to get this from the physician managing this for her. Left a message to return call. [place] [address] Rx sent for everythi ng except the Zyprexa. This is not a medication I manage or prescribe. Needs to get this from the physician managing this for her. [facility] 36 CSA Lyrica 06/28/23 Hydroxyzine and Zyprexa are not on med list. [place] [id number] Ordering provider: Vanessa Booth MD Date of last office visit: 06/28/23 Date of next office visit: 10/25/23 Updated/Validated preferred pharmacy: Yes [facility] - [place], [place] - [address] [phone] Patient instructed to contact the pharmacy prior [...] refill (see medication tab): 04/25/23 [facility] Emergency Department Summary on 09-16-2023 Emergency Department Summary Normal [facility] 36on 09-05-2023 36 Dhaval missed the appointment scheduled at [facility] today. This appointment will need to be rescheduled. Left a message to return call. Normal [facility] CBC W Auto Differential pane l (Bld)on 09-02-2023 Basophils (Bld) [#/Vol] 0.0 10*3/uL 0.0 - 0.2 10*3/uL [facility] Basophils/100 WBC (Bld) 0.4 % 0.0 - 2.0 % [facility] Eosinophils (Bld) [#/Vol] 0.1 10*3/uL 0. 0 - 0.5 10*3/uL [facility] Eosinophils/100 WBC (Bld) 1.4 % 0. 0 - 6.0 % [facility] Erythrocyte distribution width (RBC) [Ratio] 14.2 % 11.5 - 15.0 % [facility] Hematocrit (Bld) [Volume fraction] 45.1 % 35.0 - 47.0 % [facility] Hemoglobin (Bld) [Mass/Vol] 15.4 g/dL 11.7 - 16.0 g/dL [facility] Immature granulocytes (Bld) [#/Vol] 0.0 10*3/uL NINF - 0.1 10*3/uL [facility] Immature granulocytes/100 WBC (Bld) 0.3 % 0.0 - 2.0 % [facility] Interpretation and review of laboratory results Normal [facility] Lymphocytes (Bld) [#/Vol] 2.3 10*3/uL 1. 0 - 4.3 10*3/uL [facility] Lymphocytes/100 WBC (Bld) 33.0 % 15 .0 - 45.0 % [facility] MCH (RBC) [Entitic mass] 31.9 pg 26. 0 - 34.0 pg [facility] MCHC (RBC) [Mass/Vol] 34.1 % 30.5 - 36.0 % [facility] MCV (RBC) [Entitic vol] 93.4 fL 77.0 - 99.0 fL [facility] Monocytes (Bld) [#/Vol] 0.6 10*3/uL 0.0 - 0.9 10*3/uL [facility] Monocytes/100 WBC (Bld) 9.2 % 5.0 - 13.0 % [facility] Neutrophils (Bld) [#/Vol] 3.9 10*3/uL 1. 8 - 7.5 10*3/uL [facility] Neutrophils/100 WBC (Bld) 55.7 % 38 .0 - 82.0 % [facility] Nucleated RBC/100 WBC (Bld) [Ratio] 0.0 % [facility] Platelet mean volume (Bld) [Entitic vol] 10.7 fL 9.0 - 12.7 fL [facility] Comment on above: MPV is a calculated measurement using platelet volume ratio Platelets (Bld) [#/Vol] 369 10*3/uL 140 - 440 10*3/uL [facility] RBC (Bld) [#/Vol] 4.83 10*6/uL 3.80 - 5.20 10*6/uL [facility] WBC (Bld) [#/Vol] 7.0 10*3/uL 3.6 - 10.7 10*3/uL [facility] CBC WITH AUTO DIFFERENTIALon 09-02-2023 Basophils (Bld) [#/Vol] 0.0 10*3/uL Normal 0.0-0.2 [facility] Comment on above: Performed By: #### L [id number] ####Machine Lay Out Worker: MARIXA HOLLAND ([id number])[facility] SCHULZJE RITTMAN (SWRLAB)[address] [place] [address] Basophils/100 WBC (Bld) 0.4 % Normal 0.0-2.0 [facility] Comment on above: Performed By: #### L [id number] ####Machine Lay Out Worker: MARIXA HOLLAND ([id number])[facility] JE RITTMAN (SWRLAB)[address] [place] [address] Eosinophils (Bld) [#/Vol] 0.1 10*3/uL Normal 0.0-0.5 [facility] Comment on above: Performed By: #### L [id number] ####Machine Lay Out Worker: MARIXA HOLLAND ([id number])[facility] JE RITTMAN (SWRLAB)[address] [place] [address] [place] Eosinophils/100 WBC (Bld) 1.4 % Normal 0.0-6.0 [facility] Comment on above: Performed By: #### L [id number] ####Machine Lay Out Worker: MARIXA HOLLAND ([id number])MALIA WOOTEN RITTMAN (SWRLAB)[address] [place] [address] Erythrocyte distribution width (RBC) [Ratio] 14.2 % Normal 11.5-15.0 [facility] Comment on above: Performed By: #### L [id number] ####Machine Lay Out Worker: MARIXA HOLLAND ([id number])[facility] WOOTEN RITTMAN (SWRLAB)[address] [place] [address] Hematocrit (Bld) [Volume fraction] 45.1 % Normal 35.0-47.0 [facility] Comment on above: Performed By: #### L [id number] ####Machine Lay Out Worker: MARIXA HOLLAND ([id number])[facility] WOOTEN RITTMAN (SWRLAB)[address] [place] [address] Hemoglobin (Bld) [Mass/Vol] 15.4 g/dL Normal 11.7-16.0 [facility] Comment on above: Performed By: #### L [id number] ####Machine Lay Out Worker: MARIXA HOLLAND ([id number])MAL[facility] WOOTEN RITTMAN (SWRLAB)[address] [place] [address] IMMATURE GRANS % 0.3 % Normal 0.0-2.0 [facility] Comment on above: Performed By: #### L [id number] ####Machine Lay Out Worker: MARIXA HOLLAND ([id number])[facility] WOOTEN R[place] (SWRLAB)[address] [place] [address] IMMATURE GRANS ABSOLUTE 0.0 10*3/uL Normal <0.1 [facility] Comment on above: Performed By: #### L [id number] ####Machine Lay Out Worker: MARIXA HOLLAND ([id number])[facility] WOOTEN RITTMAN (SWRLAB)[address] [place] [address] [place] Lymphocytes (Bld) [#/Vol] 2.3 10*3/uL Normal 1.0-4.3 [facility] Comment on above: Performed By: #### L [id number] ####Machine Lay Out Worker: MARIXA HOLLAND ([id number])[facility] WOOTEN RITTMAN (SWRLAB)[address] [place] [address] [place] Lymphocytes/100 WBC (Bld) 33.0 % Normal 15.0-45.0 [facility] Comment on above: Performed By: #### L [id number] ####Machine Lay Out Worker: MARIXA HOLLAND ([id number])[facility] WOOTEN RITTMAN (SWRLAB)[address] [place] [address] MCH (RBC) [Entitic mass] 31.9 pg Normal 26.0-34.0 [facility] Comment on above: Performed By: #### L [id number] ####Machine Lay Out Worker: MARIXA HOLLAND ([id number])[facility] WOOTEN R[address] (SWRLAB)[address] [place] [address] MCHC 34.1 % Normal 30.5-36.0 [facility] Comment on above: Performed By: #### L [id number] ####Machine Lay Out Worker: MARIXA HOLLAND ([id number])M[facility] WOOTEN RITTMAN (SWRLAB)[address] [place] [address] MCV (RBC) [Entitic vol] 93.4 fL Normal 77.0-99.0 S [facility] Comment on above: Performed By: #### L [id number] ####Machine Lay Out Worker: MARIXA HOLLAND ([id number])[facility] WOOTEN RITTMAN (SWRLAB)[address] [place] [address] Monocytes (Bld) [#/Vol] 0.6 10*3/uL Normal 0.0-0.9 [facility] Comment on above: Performed By: #### L [id number] ####Machine Lay Out Worker: MARIXA HOLLAND ([id number])MAL[facility] WOOTEN RITTMAN (SWRLAB)[address] [place] [address] [place] Monocytes/100 WBC (Bld) 9.2 % Normal 5.0-13.0 [facility] Comment on above: Performed By: #### L [id number] ####Machine Lay Out Worker: MARIXA HOLLAND ([id number])[facility] WOOTEN R[address] (SWRLAB)[address] [place] [address] NEUTROPHILS ABSOLUTE 3.9 10*3/uL Normal 1.8-7.5 [facility] Comment on above: Performed By: #### L [id number] ####Machine Lay Out Worker: MARIXA HOLLAND ([id number])[facility] WOOTEN R[place] (SWRLAB)[address] [place] [address] [place] Neutrophils/100 WBC (Bld) 55.7 % Normal 38.0-82.0 [facility] Comment on above: Performed By: #### L [id number] ####Machine Lay Out Worker: MARIXA HOLLAND ([id number])[facility] WOOTEN RITTMAN (SWRLAB)[address] [place] [address] NRBC 0.0 /100 WBCs Normal 0.0-2.0 [facility] Comment on above: Performed By: #### L [id number] ####Machine Lay Out Worker: MARIXA HOLLAND ([id number])[facility] WOOTEN RITTMAN (SWRLAB)[address] [place] [address] Platelet mean volume (Bld) [Entitic vol] 10.7 fL Normal 9.0-12.7 [facility] Comment on above: Result Comment: MPV is a calculated measurement using platelet volume ratio Performed By: #### L [id number] ####Machine Lay Out Worker: MARIXA HOLLAND ([id number])[facility] WOOTEN RITTMAN (SWRLAB)[address] [place] [address] [place] Platelets (Bld) [#/Vol] 369 10*3/uL Normal 140-440 [facility] Comment on above: Performed By: #### L [id number] ####Machine Lay Out Worker: MARIXA HOLLAND ([id number])[facility] WOOTEN R[address] (SWRLAB)[address] RBC (Bld) [#/Vol] 4.83 10*6/uL Normal 3.80-5.20 [facility] Comment on above: Performed By: #### L [id number] ####Machine Lay Out Worker: MARIXA HOLLAND ([id number])[facility] WOOTEN [address] (SWRLAB)[address] WBC (Bld) [#/Vol] 7.0 10*3/uL Normal 3.6-10.7 [facility] Comment on above: Performed By: #### L [id number] ####Machine Lay Out Worker: MARIXA HOLLAND ([id number])[facility] WOOTEN R[address] (SWRLAB)[address] CKon 09-02-2023 CK [Catalytic activity/Vol] 63 U/L Normal 30-170 [facility] Comment on above: Performed By: #### L AB17, LAB46, LAB62, [id number] ####Machine Lay Out Worker: MARIXA HOLLAND ([id number])[facility] WOOTEN R[address] (SWRLAB)[address] [place] [address] COMPLETE URINALYSISon 2023 BACTERIA (#/HPF) IN URINE Few Abnormal Negative [facility] Comment on above: Performed By: #### L [id number] ####Machine Lay Out Worker: MARIXA HOLLAND ([id number])[facility] WOOTEN [address] (SWRLAB)[address] BILIRUBIN, TOTAL PRESENCE IN URINE Negative Normal Negative [facility] Comment on above: Performed By: #### L [id number] ####Machine Lay Out Worker: MARIXA HOLLAND ([id number])[facility] WOOTEN RITTMAN (SWRLAB)[address] [place] [address] Clarity (U) Turbid Abnormal Clear [facility] Comment on above: Performed By: #### L [id number] ####Machine Lay Out Worker: MARIXA HOLLAND ([id number])[facility]A JE RITTMAN (SWRLAB)[address] [place] [address] Color (U) Light Yellow Normal Lt. Yellow [facility] Comment on above: Performed By: #### L [id number] ####Machine Lay Out Worker: MARIXA HOLLAND ([id number])[facility] JE RITTMAN (SWRLAB)[address] [place] [address] [place] GLUCOSE (MG/DL) IN URINE Normal Normal Nor mal (<70) [facility] Comment on above: Performed By: #### L [id number] ####Machine Lay Out Worker: MARIXA HOLLAND ([id number])[facility] JE RITTMAN (SWRLAB)[address] [place] [address] HEMOGLOBIN PRESENCE IN URINE Negative Normal Negative [facility] Comment on above: Performed By: #### L [id number] ####Machine Lay Out Worker: MARIXA HOLLAND ([id number])[facility] JE RITTMAN (SWRLAB)[address] [place] [address] Ketones Ql (U) Negative Normal Negative [facility] Comment on above: Performed By: #### L [id number] ####Machine Lay Out Worker: MARIXA HOLLAND ([id number])[facility] JE RITTMAN (SWRLAB)[address] [place] [address] LEUKOCYTE ESTERASE PRESENCE IN URINE BY TEST STRIP 25 Lolita/uL Abnormal Negative [facility] Comment on above: Performed By: #### L [id number] ####Machine Lay Out Worker: MARIXA HOLLAND ([id number])[facility] JE RITTMAN (SWRLAB)[address] [place] [address] [place] MUCUS (#/LPF) IN URINE SEDIMENT Negative Normal Negative [facility] Comment on above: Performed By: #### L [id number] ####Machine Lay Out Worker: MARIXA HOLLAND ([id number])[facility] WOOTEN [address] (SWRLAB)[address] [place] [address] [place] NITRITE PRESENCE IN URINE Negative Normal Negative [facility] Comment on above: Performed By: #### L [id number] ####Machine Lay Out Worker: MARIXA HOLLAND ([id number])[facility] WO[address]EN [address] (SWRL[address] [place] [address] [place] pH (U) 5.5 [pH] Normal 5.0-8.0 [facility] Comment on above: Performed By: #### L [id number] ####Machine Lay Out Worker: MARIXA HOLLAND ([id number])[facility] WOOTEN RITTMAN (SWRLAB)[address] [place] [address] Protein (U) [Mass/Vol] Negative Normal Negative [facility] Comment on above: Performed By: #### L [id number] ####Machine Lay Out Worker: MARIXA HOLLAND ([id number])[facility] WOOTEN RITTMAN (SWRLAB)[address] [place] [address] [place] RBC (#/HPF) IN URINE SEDIMENT 0-2 Normal 0-2 [facility] Comment on above: Performed By: #### L [id number] ####Machine Lay Out Worker: MARIXA HOLLAND ([id number])[facility] WOOTEN RITTMAN (SWRLAB)[address] [place] [address] Specific gravity (U) [Rel density] 1.005 Normal 1.005-1.03 0 [facility] Comment on above: Performed By: #### L [id number] ####Machine Lay Out Worker: MARIXA HOLLAND ([id number])[facility] WOOTEN RITTMAN (SWRLAB)[address] [place] [address] [place] Specimen volume (U) 12 mL Normal [facility] Comment on above: Performed By: #### L [id number] ####Machine Lay Out Worker: MARIXA HOLLAND ([id number])[facility] WOOTEN RITTMAN (SWRLAB)[address] [place] [address] [place] SQUAMOUS EPITHELIAL CELLS (#/HPF) IN URINE SEDIMENT 6-10 Abnormal 3-5 [facility] Comment on above: Result Comment: Few Epithelial cell clumps present Performed By: #### L [id number] ####Machine Lay Out Worker: MARIXA HOLLAND ([id number])[facility] WOOTEN RITTMAN (SWRLAB)[address] UROBILINOGEN (MG/DL) IN URINE Normal Normal Normal (0-1) [facility] Comment on above: Performed By: #### L [id number] ####Machine Lay Out Worker: MARIXA HOLLAND ([id number])[facility] WOOTEN RITTMAN (SWRLAB)[address] WBC (LEUKOCYTE) (#/HPF) IN URINE SEDIMENT 3-5 Normal 0-5 [facility] Comment on above: Performed By: #### L [id number] ####Machine Lay Out Worker: MARIXA HOLLAND ([id number])[facility] WOOTEN RITTMAN (SWRLAB)[address] [place] [address] COMPREHENSIVE METABOLIC PANE Atul 09-02-2023 Albumin [Mass/Vol] 4.0 g/dL Normal 3.5-5.0 [facility] Comment on above: Performed By: #### L AB17, LAB46, LAB62, [id number] ####Machine Lay Out Worker: MARIXA HOLLAND ([id number])[facility] HAYESTMAN (SWRLAB)[address] [place] [address] ALP [Catalytic activity/Vol] 97 U/L Normal 38-126 [facility] Comment on above: Performed By: #### L AB17, LAB46, LAB62, [id number] ####Machine Lay Out Worker: MARIXA HOLLAND ([id number])[facility] WOOTEN RITTMAN (SWRLAB)[address] [place] [address] [place] ALT [Catalytic activity/Vol] 26 U/L Normal 0-34 [facility] Comment on above: Performed By: #### L AB17, LAB46, LAB62, [id number] ####Machine Lay Out Worker: MARIXA HOLLAND ([id number])[facility] WOOTEN R[address]TMAN (SWRLAB)[address] [place] [address] [place] Anion gap [Moles/Vol] 10 mmol/L Normal 3-13 [facility] Comment on above: Performed By: #### L AB17, LAB46, LAB62, [id number] ####Machine Lay Out Worker: MARIXA HOLLAND ([id number])[facility] WOOTEN RITTMAN (SWRLAB)[address] AST [Catalytic activity/Vol] 34 U/L Normal 15-46 [facility] Comment on above: Performed By: #### L AB17, LAB46, LAB62, [id number] ####Machine Lay Out Worker: MARIXA HOLLAND ([id number])[facility] WOOTEN RITTMAN (SWRLAB)[address] [place] [address] [place] Bilirubin [Mass/Vol] 1.7 mg/dL High 0.2-1.3 [facility] Comment on above: Performed By: #### L AB17, LAB46, LAB62, [id number] ####Machine Lay Out Worker: MARIXA HOLLAND ([id number])[facility] SCHULZJE RITTMAN (SWRLAB)[address] Calcium [Mass/Vol] 9.3 mg/dL Normal 8.4-10.4 [facility] Comment on above: Performed By: #### L AB17, LAB46, LAB62, [id number] ####Machine Lay Out Worker: MARIXA HOLLAND ([id number])[facility] WOOTEN RITTMAN (SWRLAB)[address] [place] [address] [place] Chloride [Moles/Vol] 104 mmol/L Normal 98-107 [facility] Comment on above: Performed By: #### L AB17, LAB46, LAB62, QCO533 ####Machine Lay Out Worker: MARIXA HOLLAND ([id number])[facility] SCHULZJE RITTMAN (SWRLAB)[address] [place] [address] [place] CO2 [Moles/Vol] 25 mmol/L Normal 22-30 [facility] Comment on above: Performed By: #### L AB17, LAB46, LAB62, [id number] ####Machine Lay Out Worker: MARIXA HOLLAND ([id number])[facility] HAYESTMAN (SWRLAB)[address] [place] [address] Creatinine [Mass/Vol] 0.52 mg/dL Normal 0.52-1.04 [facility] Comment on above: Performed By: #### L AB17, LAB46, LAB62, HTP401 ####Machine Lay Out Worker: MARIXA HOLLAND ([id number])[facility] WOOTEN RITTMAN (SWRLAB)[address] [place] [address] GLOMERULAR FILTRATION RATE ML/MIN/1.73 SQ M.PREDICTED >90.0 Normal >60.0 [facility] Comment on above: Result Comment: Calc ulation based on the Chronic Kidney Disease Epidemiology Collaboration (CKD-EPI) equation refit without adjustment for race Performed By: #### Tres AB17, LAB46, LAB62, [id number] ####Machine Lay Out Worker: MARIXA HOLLAND ([id number])[facility] HAYESTMAN (SWRLAB)[address] [place] [address] [place] Glucose [Mass/Vol] 88 mg/dL Normal 70-100 [facility] Comment on above: Performed By: #### Tres AB17, LAB46, LAB62, [id number] ####Machine Lay Out Worker: MARIXA HOLLAND ([id number])[facility] WOOTEN RITTMAN (SWRLAB)[address] [place] [address] Potassium [Moles/Vol] 3.0 mmol/L Low 3.5-5.1 [facility] Comment on above: Performed By: #### L AB17, LAB46, LAB62, [id number] ####Machine Lay Out Worker: MARIXA HOLLAND ([id number])[facility] WOOTEN RITTMAN (SWRLAB)[address] [place] [address] Protein [Mass/Vol] 7.7 g/dL Normal 6.3-8.2 [facility] Comment on above: Performed By: #### L AB17, LAB46, LAB62, [id number] ####Machine Lay Out Worker: MARIXA HOLLAND ([id number])[facility] HAYESTMAN (SWRLAB)[address] [place] [address] Sodium [Moles/Vol] 138 mmol/L Normal 135-145 [facility] Comment on above: Performed By: #### L AB17, LAB46, LAB62, [id number] ####Machine Lay Out Worker: MARIXA HOLLAND ([id number])[facility] HAYESTMAN (SWRLAB)[address] [place] [address] Urea nitrogen [Mass/Vol] 10 mg/dL Normal 7-17 [facility] Comment on above: Performed By: #### L AB17, LAB46, LAB62, ULR172 ####Machine Lay Out Worker: MARIXA HOLLAND ([id number])[facility] JE HAYESTMAN (SWRLAB)[address] [place] [address] Comprehensive metabolic 1998 panelon 09-02-2023 Albumin [Mass/Vol] 4.0 g/dL 3.5 - 5.0 g/dL [facility] ALP [Catalytic activity/Vol] 97 U/L 38 - 126 U/L [facility] ALT [Catalytic activity/Vol] 26 U/L 0 - 34 U/L [facility] Anion gap [Moles/Vol] 10 mmol/L 3 - 13 mmol/L [facility] AST [Catalytic activity/Vol] 34 U/L 15 - 46 U/L [facility] Bilirubin [Mass/Vol] 1.7 mg/dL High 0.2 - 1 .3 mg/dL [facility] Calcium [Mass/Vol] 9.3 mg/dL 8.4 - 10. 4 mg/dL [facility] Chloride [Moles/Vol] 104 mmol/L 98 - 10 7 mmol/L [facility] CO2 [Moles/Vol] 25 mmol/L 22 - 30 mmol/L [facility] Creatinine [Mass/Vol] 0.52 mg/dL 0.52 - 1.04 mg/dL [facility] GFR/1.73 sq M.predicted MDRD (S/P/Bld) [Vol rate/Area] - PINF [facility] Comment on above: Calculation based on the Chronic Kidney Disease Epidemiology Collaboration (CKD-EPI) equation refit without adjustment for race Glucose [Mass/Vol] 88 mg/dL 70 - 100 mg/dL [facility] Interpretation and review of laboratory results Abnormal [facility] Potassium [Moles/Vol] 3.0 mmol/L Low 3.5 - 5.1 mmol/L [facility] Protein [Mass/Vol] 7.7 g/dL 6.3 - 8.2 g/dL [facility] Sodium [Moles/Vol] 138 mmol/L 135 - 145 mmol/L [facility] Urea nitrogen [Mass/Vol] 10 mg/dL 7 - 17 mg/dL [facility] DRUGS OF ABUSEon 09-02-2023 AMPHETAMINE SCREEN Positive Normal [facility] Comment on above: Performed By: #### L [id number] ####Machine Lay Out Worker: MARIXA HOLLAND ([id number])[facility] (SWRL[facility])[address] [place] [address] BARBITURATES SCREEN Negative Normal [facility] Comment on above: Performed By: #### L [id number] ####Machine Lay Out Worker: MARIXA HOLLAND ([id number])[facility] ([facility])[address] [place] [address] BENZODIAZEPINE SCREEN Negative Normal [facility] Comment on above: Performed By: #### L [id number] ####Machine Lay Out Worker: MARIXA HOLLAND ([id number])[facility] ([facility])[address] [place] [address] COCAINE METAB. SCREEN Negative Normal [facility] Comment on above: Performed By: #### L [id number] ####Machine Lay Out Worker: MARIXA HOLLAND ([id number])[facility] JE [place] (SWRLAB)[address] [place] [address] METHADONE SCREEN Negative Normal [facility] Comment on above: Performed By: #### L [id number] ####Machine Lay Out Worker: MARIXA HOLLAND ([id number])[facility]MFernie [facility]EN [place] (SWRLAB)[address] OPIATES SCREEN Negative Normal [facility] Comment on above: Performed By: #### L [id number] ####Machine Lay Out Worker: MARIXA HOLLAND ([id number])[facility]ENTER[facility] WOOTEN [place] (SWRLAB)[address] OXYCODONE SCREEN Negative Normal [facility] Comment on above: Performed By: #### L [id number] ####Machine Lay Out Worker: MARIXA SANCHEZZENAIDA ([id number])[facility] JE [place] (SWRLAB)[address] PHENCYCLIDINE SCREEN Negative Normal [facility] Comment on above: Result Comment: JEAN [...] under separate order. Performed By: #### L [id number] ####Machine Lay Out Worker: MARIXA DANIELZENAIDA ([id number])[facility]ENTER[facility] WOOTEN [place] (SWRLAB)[address] ED Nursing Noteon 09-02-2023 ED Nursing Note Discharge instructions, follow up care, and pain management discussed with patient. All questions answered, there are no further questions at this time. Patient provided with HOPE bag including mcc information and street cards. Patient ambulated off the unit independently to the lobby to await ride. Adelita Perry RN 09/02/23 1034 Normal [facility] ED Nursing Note Patient to be discharged, patient provided with her cell phone to get a ride home. Adelita Perry RN 09/02/23 0859 [facility] ED Nursing Note Patient awake and alert. [...] of care. Adelita Perry RN 09/02/23 0847 [facility] ED Nursing Note Pt presents to the E D w c/o anxiety. Per pt, pt has been having anxiety all day. Pt denies suicidal thoughts. Pt feels safe at home [facility] ED Nursing Note Pt initially uncooperative initially. Pt refusing to change in a gown or have labs drawn. Pt finally will allow this nurse to draw labs. Pts personal belongings removed from pt and pt put on a gown. Pt wanded by officer robert. Pt refuses anxiety meds ordered [facility] ED Provider Noteon ED Provider Note Emergency Department Encounter Location: [facility] ED Patient: Dhaval Moon : 2000 [...] 0510) I Glenn Guerrero MD am the courtroom deputy of record. Final Impression 1. Paranoia (psychosis) [...] she is being followed by people from [place] and that she feels not safe here [...] Resource Strain: Medium Risk (05/22/2020) Received from [facility] Overall Financial Resource Strain (CARDIA) Difficulty of Paying Living Expenses: Somewhat hard Food Insecurity: Food Insecurity Present (06/09/2023) [facility] Hunger Vital Sign Worried About Running Out of Food in the Last Year: Sometimes true Ran Out of Food in the Last Year: Sometimes true Transportation Needs: No Transportation Needs (06/09/2023) [facility] PRAPARE - Transportation Lack of Transportation (Medical): No Lack of Transportation (Non-Medical): No Physical Activity: Inactive (01/23/2019) Received from [facility] Exercise Vital Sign Days of Exercise per Week: 0 days Minutes of Exercise per Session: 0 min Housing Stability: Unknown (06/09/2023) [facility] Housing Stability Vital Sign Unable to Pay for Housing in the Last Year: No In the last 12 months, was there a time when you did not have a steady place to sleep or slept in a mcc (including now)?: No SCREENINGS PHYSICAL EXAM ED [...] RESULTS Procedures/E (more content not included)... Normal [facility] ETHANOLon 09-02-2023 ETHANOL IN SER/PLAS <0.010 Normal 0.000-0. 01 0 [facility] Comment on above: Result Comment: ORDE R COMMENTS: NOTE: This result is for medical treatment only. Analysis performed using non-forensic procedures. Performed By: #### L AB17, LAB46, LAB62, [id number] ####Machine Lay Out Worker: MARIXA HOLLAND ([id number])[facility] (RLAB)[address] [place] [address] Ethanol (Bld) [Mass/Vol]on 0 09-02-2023 Ethanol [Mass/Vol] g/dL 0.000 - 0.010 g/dL [facility] HCG QUANTITATIVE BLOODon HCG QUANTITATIVE <2 Normal Females <=5 [facility] Comment on above: Result Comment: JEAN Juarez [...] Performed By: #### L AB17, LAB46, LAB62, [id number] ####Machine Lay Out Worker: MARIXA HOLLAND ([id number])[facility] ([facility])[address] [place] [address] Laboratory - Chemistry and C hemistry - challengeon 09-02-2023 HCG.beta subunit Qn Females <=5 mIU/mL [facility] CK [Catalytic activity/Vol] 63 U/L 30 - 170 U/L [facility] Laboratory - Drug toxicology on 09-02-2023 Amphetamines Screen method >1000 ng/mL Ql (U) Positive [facility] Barbiturates Screen method >200 ng/mL Ql (U) Negative [facility] Benzodiazepines Ql (U) Negative [facility] Methadone Screen Ql (U) Negative S [facility] Opiates Screen Ql (U) Negative [facility] oxyCODONE Ql (U) Negative [facility] Phencyclidine Ql (U) Negative [facility] Laboratory - Microbiology an d Antimicrobial susceptibilityOrdered By: Amari Daily on 09-02-2023 SARS-CoV-2 (COVID-19) Ag IA.rapid Ql (Resp) Negative Negative [facility] Comment on above: A negative result do es not rule out the possibility of SARS-CoV-2 infection. NAAT-based methods should be considered for symptomatic patients presenting greater than seven days after onset of symptoms. Method: Lateral flow immunoassay. Fact sheets for healthcare providers and patients can be found at the following sites: https://www.[employer].gov/media/468249/download https://www.[employer].gov/Si TV/019630/download No Panel Informationon 09-01 COCAINE METAB. SCREEN Negative [facility] The expected value f or all of [...] is needed, request confirmation under separate order. [facility] Values in should double every 2 to [...] or monitor tumors or gestational trophoblastic disease. [facility] Interpretation and review of laboratory results Normal [facility] SARS-COV-2 ANTIGENon 024 SARS-COV-2 ANTIGEN SARS-COV-2 ANTIGEN -BINAX Reference Negative Negative A negative result does not rule out the possibility of SARS-CoV-2 infection. NAAT-based methods should be considered for symptomatic patients presenting greater than seven days after onset of symptoms. Method: Lateral flow immunoassay. Fact sheets for healthcare providers and patients can be found at the following sites: https://www.[facility].gov/in yary/025911/download https://www.[facility].gov/in yary/900815/download Normal [facility] Comment on above: Performed By: #### L [id number] #### Machine Lay Out Worker: MARIXA HOLALND ([id number]) [facility] (SWRLAB) [address] [place] [address] SARS-CoV-2 (COVID-19) Ag IA. rapid Ql (Resp)Ordered By: Amari Daily on 09-02-2023 Interpretation and review of laboratory results Normal [facility] Urinalysis complete panel (U )on 09-02-2023 Bacteria LM.HPF (Urine sed) [#/Area] Few Abnormal Negative /HPF [facility] Bilirubin Ql (U) Negative Negative mg/dL [facility] Clarity (U) Turbid Abnormal Clear [facility] Color (U) Light Yellow Lt. Yellow [facility] Epithelial cells.squamous LM.HPF (Urine sed) [#/Area] 6-10 Abnormal [facility] Comment on above: Few Epithelial cell clumps present Glucose Ql (U) Normal Normal (<70) mg/dL [facility] Hemoglobin Ql (U) Negative Negative mg/dL [facility] Interpretation and review of laboratory results Abnormal [facility] Ketones (U) [Mass/Vol] Negative Negat kimberly mg/dL [facility] Leukocyte esterase Test strip Ql (U) 25 Abnormal Negative Lolita/uL [facility] Mucus LM.HPF (Urine sed) [#/Area] Negative Negative /LPF [facility] Nitrite Ql (U) Negative Negative [facility] th pH (U) 5.5 [pH] 5.0 - 8.0 pH [facility] Protein (U) [Mass/Vol] Negative Negat kimberly mg/dL [facility] RBC LM.HPF (Urine sed) [#/Area] 0-2 [facility] Specific gravity (U) [Rel density] 1.005 1.005 - 1.030 [facility] Urobilinogen (U) [Mass/Vol] Normal Normal (0-1) mg/dL [facility] Volume, Urine 12 mL [facility] WBC LM.HPF (Urine sed) [#/Area] 3-5 [facility] 36on 08-31-2023 36 Left a message to return call to [facility] for appointment with Dr. Booth on 09/04/23. If the patient calls back during business hours, please transfer to our backline. Otherwise, Please arrive 15 minutes early with your insurance card and photo ID. Thank you! [facility] 36on 08-28-2023 36 Rx sent. OARRS repor t reviewed with no discrepancies. CSA signed in June 2023. Follow up as scheduled. [facility] 36 Looks like she is already scheduled for 09/04/23. [address] 08-25-2023 36 Ordering provider: Amarjit Booth Date [...] medication tab): 03/21/23 [facility] 08-24-2023 36 for nursing dept at [facility] - we need to know when pt [...] with Dr. Booth after her discharge from [facility]. [facility] 08-19-2023 36 Name of caller: Malka Moon Contact phone number: [phone] ([place]) Relationship to Patient: patient Provider: Dr. 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 She was taken to an [facility] and pink slipped. There were no local facilities taking patients, so she was sent to [facility] in [place]. While there, she has been struggling with pain and hasn't been receiving her medications. She is hoping Dr. Booth might be available to review her medications with [facility] or possibly help her get reevaluated so she can leave sooner rather than later. Best time of day caller can be reached: Any Patient advised that office/PCP has 24-48 business hours to return their call: Yes Normal [facility] .Urinalysis Microscopic (AO) on 08-18-2023 UA Bacteria 1+ /hpf Abnormal [facility] ([place]) Comment on above: Performed By: #### U FENTS, UOXYS ####[place] [address]#### PREGU, UDRUG, UAMICAO, UA ####[place] [address] [place], [place] [address] UA RBC 0-5 Abnormal None Seen [facility] ([place]) Comment on above: Performed By: #### U FENTS, UOXYS ####[place] [address]#### PREGU, UDRUG, UAMICAO, UA ####[place] [address] [place], [place] [address] UA Squam Epithelial 5-10 Abnormal None Seen [facility] ([place]) Comment on above: Performed By: #### U FENTS, UOXYS ####[place] [address]#### PREGU, UDRUG, UAMICAO, UA ####[place] [address] [place], [place] [address] UA WBC 5-10 Abnormal None Seen [facility] ([place]) Comment on above: Performed By: #### U FENTS, UOXYS ####[place] [address]#### PREGU, UDRUG, UAMICAO, UA ####[place] [address] [place] [id number] LABORATORYOrdered By: Lazara Ca on 08-18-2023 Amphetamines [...] 1:06 AM) Invalid Interpretation Code Negative ADM Comment on above: Interpretive Data: T esting has been performed FOR MEDICAL PURPOSES ONLY. oxyCODONE Ql (U) Negative 3 *NA* (08/18/23 1:06 AM) Invalid Interpretation Code Negative ADM Comment on above: Interpretive Data: T esting has been performed FOR MEDICAL PURPOSES ONLY. PREGUon 08-18-2023 HCG ( test) Ql (U) Negative Normal [facility] ([place]) Comment on above: Performed By: #### U CARYN RENEE ####[place] [address]#### PREGU, UDRUG, UAMICAO, UA ####[facility] [place] [address] test (u) int Not detected Invalid Interpretation Code [facility] ([place]) Comment on above: Performed By: #### U FENTS, UOXYS ####[place] [address]#### PREGU, UDRUG, UAMICAO, UA ####[place] [address] [place] [address] UAon 08-18-2023 Color (U) Dark yellow Normal [facility] ([place]) Comment on above: Performed By: #### U FENTS, UOXYS ####[place] [address]#### PREGU, UDRUG, UAMICAO, UA ####[place] [address] [place] [address] Glucose (U) [Mass/Vol] Negative Normal Negative [facility] ([place]) Comment on above: Performed By: #### U FENTS, UOXYS ####[place] [address]#### PREGU, UDRUG, UAMICAO, UA ####[place] [address] [place] [address] Ketones Ql (U) >=160 Abnormal Negative [facility] ([place] Comment on above: Performed By: #### U FENTS, UOXYS ####[place] [address]#### PREGU, UDRUG, UAMICAO, UA ####[place] [address] [place] [address] UA Appear Clear Normal Clear [facility] ([place] Comment on above: Performed By: #### U FENTS, UOXYS ####[place] [address]#### PREGU, UDRUG, UAMICAO, UA ####[place] [address] [place], [place] [id number] UA Bili Large Abnormal Negative [facility] ([place]) Comment on above: Performed By: #### U FENTS, UOXYS ####[place] [address]#### PREGU, UDRUG, UAMICAO, UA ####[place] [place], [place] [address] UA Blood Large Abnormal Negative [facility] ([place]) Comment on above: Performed By: #### U FENTS, UOXYS ####[place] [address]#### PREGU, UDRUG, UAMICAO, UA ####[address] [place] [address] UA Leuk Est Negative Normal Negative [facility] ([place]) Comment on above: Performed By: #### U FENTS UOXYS ####[place] [address]#### PREGU, UDRUG, UAMICAO, UA ####[place] [address] [place] [address] UA Nitrite Positive Abnormal Negative [facility] ([place]) Comment on above: Performed By: #### U KRISTOPHERS UOXYS ####[place] [address]#### PREGU, UDRUG, UAMICAO, UA ####[place] [address] [place] [address] UA pH 6.0 Normal 5.0 - 8.0 [facility] ([place]) Comment on above: Performed By: #### U FENTS, UOXYS ####[place] [address]#### PREGU, UDRUG, UAMICAO, UA ####[place] [address] [place] [address] UA Protein 30 mg/dL Normal Negative [facility] ([place]) Comment on above: Performed By: #### U FENTS UOXYS ####[place] [address]#### PREGU, UDRUG, UAMICAO, UA ####[place] [address] [place] [address] UA Spec Grav >=1.030 Abnormal 1.015-1.02 5 [facility] ([place]) Comment on above: Performed By: #### U FENTS, UOXYS ####[place] [address]#### PREGU, UDRUG, UAMICAO, UA ####[place] [address] [address] UA Specimen Type Clean Catch Normal [facility] ([place]) Comment on above: Performed By: #### U FENTS, UOXYS ####[place] [address]#### PREGU, UDRUG, UAMICAO, UA ####[place] [address] [place] [address] UA Urobilinogen 1.0 E.U./dL Normal 0.2-1.0 [facility] ([place]) Comment on above: Performed By: #### U FENTS, UOXYS ####[place] [address]#### PREGU, UDRUG, UAMICAO, UA ####[place] [address] [place] [address] UDRUGon 08-18-2023 Amphetamine (u) Positive Abnormal Negative [facility] ([place]) Comment on above: Performed By: #### U FENTS, UOXYS ####[place] [address]#### PREGU, UDRUG, UAMICAO, UA ####[place] [address] [place] [address] Barbiturate (u) Negative Normal Negative [facility] ([place]) Comment on above: Performed By: #### U FENTS, UOXYS ####[place] [address]#### PREGU, UDRUG, UAMICAO, UA ####[place] [address] [place] [address] Benzodiazepine (u) Negative Normal Negative [facility] ([place]) Comment on above: Performed By: #### U FENTS, UOXYS ####[place] [address]#### PREGU, UDRUG, UAMICAO, UA ####[place] [address] [place] [address] Cannabinoid (u) Negative Normal Negative [facility] ([place] Comment on above: Performed By: #### U FENTS, UOXYS ####[place] [address]#### PREGU, UDRUG, UAMICAO, UA ####[place] [address] [place] [address] Cocaine Ql (U) Negative Normal Negative [facility] ([place]) Comment on above: Performed By: #### U FENTS, UOXYS ####[place] [address]#### PREGU, UDRUG, UAMICAO, UA ####[place] [address] [place] [address] Methadone Ql (U) Negative Normal Negative [facility] ([place] Comment on above: Performed By: #### U FENTS, UOXYS ####[place] [address]#### PREGU, UDRUG, UAMICAO, UA ####[place] [address] [place] [address] Opiate (u) Negative Normal Negative [facility] ([place] Comment on above: Performed By: #### U FENTS, UOXYS ####[place] [address]#### PREGU, UDRUG, UAMICAO, UA ####[place] [address] [place] [address] PCP (u) Negative Normal Negative [facility] ([place] Comment on above: Performed By: #### U FENTS, UOXYS ####[place] [address]#### PREGU, UDRUG, UAMICAO, UA ####[place] [address] [place] [address] Urine Drugs screened: See Below Normal [facility] ([place]) Comment on above: Result Comment: This drug [...] ONLY. Performed By: #### U KRISTOPHERS UOXYS ####[place] [address]#### PREGU, UDRUG, UAMICAO, UA ####[place] [address] UFENTSon 08-18-2023 Fentanyl (u) Negative Normal Negative [facility] ([place]) Comment on above: Result Comment: Test ing has been performed FOR MEDICAL PURPOSES ONLY. Performed By: #### U FENTS UOXYS ####[place] [address]#### PREGU, UDRUG, UAMICAO, UA ####[place] [address] UOXYSon 08-18-2023 Oxycodone (u) Negative Normal Negative [facility] ([place]) Comment on above: Result Comment: Test ing has been performed FOR MEDICAL PURPOSES ONLY. Performed By: #### U FENTS, UOXYS ####[place] [address]#### PREGU, UDRUG, UAMICAO, UA ####[place] [address] .Auto Diffon 08-17-2023 Basophil, Absolute 0.0 10 3/mcL Normal 0.0-0.2 [facility] ([place]) Comment on above: Performed By: #### G FR, TROPHS, ANEU, CMP, CBC, CK, ACETA, ALC, RYANN, ADIFF, MDPaulette #### [address] [address] Basophils/100 WBC (Bld) 0.5 % Normal 0.0-2.5 [facility] ([place]) Comment on above: Performed By: #### G FR, TROPHS, ANEU, CMP, CBC, CK, ACETA, ALC, RYANN, ADIFF, YESSI #### [address] [address] Eosinophil, Absolute 0.2 10 3/mcL Normal 0.0-0.4 [facility] ([place]) Comment on above: Performed By: #### G FR, TROPHS, ANEU, CMP, CBC, CK, ACETA, ALC, RYANN, ADIFF, MDPaulette #### [address] [address] Eosinophils/100 WBC (Bld) 2.8 % Normal 0.0-7.0 [facility] ([place]) Comment on above: Performed By: #### G FR, TROPHS, ANEU, CMP, CBC, CK, ACETA, ALC, RYANN, ADIFF, YESSI #### [address] [address] Lymphocyte, Absolute 1.7 10 3/mcL Normal 0.8-3.9 [facility] ([place]) Comment on above: Performed By: #### G FR, TROPHS, ANEU, CMP, CBC, CK, ACETA, ALC, RYANN, ADIFF, YESSI #### [address] [address] Lymphocytes/100 WBC (Bld) 21.3 % Normal 10.0-50.0 [facility] ([place]) Comment on above: Performed By: #### G FR, TROPHS, ANEU, CMP, CBC, CK, ACETA, ALC, RYANN, ADIFF, MDPaulette #### [address] [address] Monocyte, Absolute 0.8 10 3/mcL Normal 0.2-1.0 [facility] ([place]) Comment on above: Performed By: #### G FR, TROPHS, ANEU, CMP, CBC, CK, ACETA, ALC, RYANN, ADIFF, YESSI #### [address] [address] Monocytes/100 WBC (Bld) 9.4 % Normal 1.7-13.0 [facility] ([place]) Comment on above: Performed By: #### G FR, TROPHS, ANEU, CMP, CBC, CK, ACETA, ALC, RYANN, ADIFF, YESSI #### [address] [address] Neutrophils/100 WBC (Bld) 66.0 % Normal 37.0-80.0 [facility] ([place]) Comment on above: Performed By: #### G FR, TROPHS, ANEU, CMP, CBC, CK, ACETA, ALC, RYANN, ADIFF, YESSI #### [address] [address] .GFRon 08-17-2023 GFR 156 ml/min/1.73sqm Normal [facility] ([place]) Comment on above: Result Comment: GFR Population [...] CBC, CK, ACETA, ALC, RYANN, ADIFF, MDW ####[address] [address] GFR Non- 129 ml/min/1.73sqm Normal [facility] ([place]) Comment on above: Result Comment: GFR Population [...] CMP, CBC, CK, ACETA, ALC, RYANN, ADIFFYESSI ####Alhaji [address] [address] .MDWon 08-17-2023 Monocyte Distribution Width 19.16 Normal 0.00-20.00 [facility] ([place]) Comment on above: Result Comment: For ED adult patients suspected of sepsis, MDW<=20.0 does not rule out sepsis or risk of sepsis Performed By: #### G FR, TROPHS, ANEU, CMP, CBC, CK, ACETA, ALC, RYANN, YESSI TOBIAS #### [address] [address] .NEUABSon 08-17-2023 Neutrophil, Absolute 5.3 10 3/mcL Normal 2.9-6.2 [facility] ([place]) Comment on above: Performed By: #### G FR, TROPHS, ANEU, CMP, CBC, CK, ACETA, ALC, RYANN, ADYESSI COREAS #### [address] [address] ACETAon 08-17-2023 Acetaminophen [Mass/Vol] 0.0 ug/mL Low 10.0-30.0 [facility] ([place]) Comment on above: Performed By: #### G FR, TROPHS, ANEU, CMP, CBC, CK, ACETA, ALC, RYANN, ADYESSI COREAS ####[place] [address] Ger 08-17-2023 Ethanol Level <3 Normal 0-3 [facility] ([place] Comment on above: Performed By: #### G FR, TROPHS, ANEU, CMP, CBC, CK, ACETA, ALC, RYANN, ADIFF, YESSI #### [address] [address] CBCon 08-17-2023 Erythrocyte distribution width (RBC) [Ratio] 15.1 % High 11.5-14.5 [facility] ([place]) Comment on above: Performed By: #### G FR, TROPHS, ANEU, CMP, CBC, CK, ACETA, ALC, RYANN, ADIFF, YESSI #### [place] [address] Hematocrit (Bld) [Volume fraction] 48.9 % High 37.0-47.0 [facility] ([place]) Comment on above: Performed By: #### G FR, TROPHS, ANEU, CMP, CBC, CK, ACETA, ALC, RYANN, ADIFF, YESSI #### [place] [address] Hgb 16.3 G/dL High 12.0-16.0 [facility] ([place] Comment on above: Performed By: #### G FR, TROPHS, ANEU, CMP, CBC, CK, ACETA, ALC, RYANN, ADIFF, YESSI #### [place] [address] MCH (RBC) [Entitic mass] 32.1 pg High 27.0-31.2 [facility] [facility] ([place]) Comment on above: Performed By: #### G FR, TROPHS, ANEU, CMP, CBC, CK, ACETA, ALC, RYANN, ADIFF, YESSI #### [place] [address] MCHC 33.3 G/dL Normal 33.0-37.0 [facility] ([place]) Comment on above: Performed By: #### G FR, TROPHS, ANEU, CMP, CBC, CK, ACETA, ALC, RYANN, ADIFF, YESSI #### [address] [address] MCV (RBC) [Entitic vol] 96.4 fL High 80.0-94.0 A [facility] ([place]) Comment on above: Performed By: #### G FR, TROPHS, ANEU, CMP, CBC, CK, ACETA, ALC, RYANN, ADIFF, YESSI #### [address] [address] Platelet 208 10 3/mcL Normal 130-400 [facility] ([place]) Comment on above: Performed By: #### G FR, TROPHS, ANEU, CMP, CBC, CK, ACETA, ALC, RYANN, ADYESSI COREAS #### [address] [address] Platelet mean volume (Bld) [Entitic vol] 9.0 fL Normal 7.4-10.4 [facility] ([place]) Comment on above: Performed By: #### G FR, TROPHS, ANEU, CMP, CBC, CK, ACETA, ALC, RYANN, ADIFF, YESSI #### [address] [address] RBC 5.07 10 6/mcL Normal 4.20-5.40 [facility] ([place]) Comment on above: Performed By: #### G FR, TROPHS, ANEU, CMP, CBC, CK, ACETA, ALC, RYANN, ADIFF, YESSI #### [place] [id number] WBC 8.1 10 3/mcL Normal 4.6-10.8 [facility] ([place]) Comment on above: Performed By: #### G FR, TROPHS, ANEU, CMP, CBC, CK, ACETA, ALC, RYANN, ADYESSI COREAS #### [address] [address] CKon 08-17-2023 CK [Catalytic activity/Vol] 96 U/L Normal 26-192 [facility] ([place]) Comment on above: Performed By: #### G FR, TROPHS, ANEU, CMP, CBC, CK, ACETA, ALC, RYANN, ADIFFYESSI #### [address] [address] CMPon 08-17-2023 Albumin Level 3.6 G/dL Normal 3.5-5.0 [facility] ([place]) Comment on above: Performed By: #### G FR, TROPHS, ANEU, CMP, CBC, CK, ACETA, ALC, RYANN, ADIFF, YESSI #### [address] [address] Albumin/Globulin [Mass ratio] 0.8 {ratio} Low 1.1-2.5 [facility] ([place]) Comment on above: Performed By: #### G FR, TROPHS, ANEU, CMP, CBC, CK, ACETA, ALC, RYANN, ADIFF, YESSI #### [address] [address] ALP [Catalytic activity/Vol] 101 U/L Normal 40-135 [facility] ([place]) Comment on above: Performed By: #### G FR, TROPHS, ANEU, CMP, CBC, CK, ACETA, ALC, RYANN, ADIFF, YESSI #### [address] [address] ALT [Catalytic activity/Vol] 36 U/L Normal 14-59 [facility] ([place] Comment on above: Performed By: #### G FR, TROPHS, ANEU, CMP, CBC, CK, ACETA, ALC, RYANN, ADIFF, YESSI #### [address] [address] AST [Catalytic activity/Vol] 50 U/L High 10-40 [facility] ([place]) Comment on above: Performed By: #### G FR, TROPHS, ANEU, CMP, CBC, CK, ACETA, ALC, RYANN, ADIFF, YESSI #### [address] [address] Bili Total 3.1 mg/dL High 0.2-1.0 [facility] ([place]) Comment on above: Result Comment: Use of this assay is not recommended for patients undergoing treatment with eltrombopag due to the potential for falsely elevated results. Performed By: #### G FR, TROPHS, ANEU, CMP, CBC, CK, ACETA, ALC, RYANN, ADYESSI COREAS #### [address] [address] BUN/Creatinine Ratio 26 ratio Normal 7-27 [facility] ([place]) Comment on above: Performed By: #### G FR, TROPHS, ANEU, CMP, CBC, CK, ACETA, ALC, RYANN, ADIFFYESSI #### [address] [address] Calcium [Mass/Vol] 9.6 mg/dL Normal 8.4-10.2 [facility] ([place]) Comment on above: Performed By: #### G FR, TROPHS, ANEU, CMP, CBC, CK, ACETA, ALC, RYANN, ADYESSI COREAS #### [address] [address] Chloride [Moles/Vol] 99 mmol/L Normal 98-107 [facility] ([place]) Comment on above: Performed By: #### G FR, TROPHS, ANEU, CMP, CBC, CK, ACETA, ALC, RYANN, ADYESSI COREAS #### [address] [address] CO2 [Moles/Vol] 20 mmol/L Low 22-29 [facility] ([place]) Comment on above: Performed By: #### G FR, TROPHS, ANEU, CMP, CBC, CK, ACETA, ALC, RYANN, ADIFFYESSI #### [address] [address] Creatinine [Mass/Vol] 0.58 mg/dL Normal 0.55-1.02 [facility] ([place]) Comment on above: Performed By: #### G FR, TROPHS, ANEU, CMP, CBC, CK, ACETA, ALC, RYANN, ADIFF, YESSI #### [address] [address] Electrolyte Balance 18.0 mEq/L High 4.0-15.0 [facility] ([place]) Comment on above: Performed By: #### G FR, TROPHS, ANEU, CMP, CBC, CK, ACETA, ALC, RYANN, ADJOSS, YESSI #### [address] [address] Globulin 4.6 G/dL Normal [facility] ([place]) Comment on above: Performed By: #### G FR, TROPHS, ANEU, CMP, CBC, CK, ACETA, ALC, RYANN, ADIFF, YESSI #### [address] [address] Glucose [Mass/Vol] 79 mg/dL Normal 70-105 [facility] ([place]) Comment on above: Performed By: #### G FR, TROPHS, ANEU, CMP, CBC, CK, ACETA, ALC, RYANN, ADJOSS, YESSI #### [address] [address] Potassium [Moles/Vol] 3.1 mmol/L Low 3.5-5.1 [facility] ([place]) Comment on above: Performed By: #### G FR, TROPHS, ANEU, CMP, CBC, CK, ACETA, ALC, RYANN, ADJOSS, YESSI #### [address] [address] Sodium [Moles/Vol] 137 mmol/L Normal 136-145 [facility] ([place]) Comment on above: Performed By: #### G FR, TROPHS, ANEU, CMP, CBC, CK, ACETA, ALC, RYANN, ADYESSI COREAS #### [address] [address] Total Protein 8.2 G/dL Normal 6.4-8.2 [facility] ([place]) Comment on above: Performed By: #### G FR, TROPHS, ANEU, CMP, CBC, CK, ACETA, ALC, RYANN, ADJOSS, YESSI #### [address] [address] Urea nitrogen [Mass/Vol] 15 mg/dL Normal 7-18 [facility] ([place]) Comment on above: Performed By: #### G FR, TROPHS, ANEU, CMP, CBC, CK, ACETA, ALC, RYANN, ADIFF, MDW #### [place] [address] CVFLURVon 08-17-2023 FLU A PCR Negative Normal Negative [facility] ([place]) Comment on above: Performed By: #### C VFLURV #### [place] [address] FLU B PCR Negative Normal Negative [facility] ([place]) Comment on above: Performed By: #### C VFLURV #### [place] [address] RSV PCR Negative Normal Negative [facility] ([place]) Comment on above: Performed By: #### C VFLURV #### [place] [address] SARS-CoV-2 (COVID-19) RNA AZALEA+probe Ql (Unsp spec) Negative Normal Negative [facility] ([place]) Comment on above: Result Comment: Resu lts [...] results. Performed By: #### C VFLURV #### [place] [address] LABORATORYOrdered By: Norberto Rhoades on 08-17-2023 Acetaminophen [...] ng/L Male: 0-76 ng/L Testing performed on Backchat using a homogeneous sandwich chemiluminescent immunoassay based on CueSongs technology. Urea nitrogen [Mass/Vol] 15 mg/dL Normal 7 - 18 mg/dL AO ADM SS Urea nitrogen/Creatinine [Mass ratio] 26 ratio Normal 7 - 27 ratio AO ADM SS WBC (Bld) [#/Vol] 8.1 103/mcL Normal 4.6 - 10.8 10^3/mcL AO Workflow SS SALon 08-17-2023 Salicylate Level <0.2 Low 2.8-20.0 [facility] ([place]) Comment on above: Performed By: #### G FR, MARVINS, ANEU, CMP, CBC, CK, ACETA, ALC, RYANN, YESSI TOBIAS ####[address] [place], [place] [address] TROPHSon 08-17-2023 High Sensitivity Troponin I 13 ng/L Normal 0-51 [facility] ([place]) Comment on above: Result Comment: High Sensitive Troponin I Reference Ranges: Female: 0-51 ng/L Male: 0-76 ng/L Testing performed on Dimension EXL using a homogeneous sandwich chemiluminescent immunoassay based on [employer]ueSongs technology. Performed By: #### G FR, TROPHS, ANEU, CMP, CBC, CK, ACETA, ALC, RYANN, ADIFF, MDW #### [place] [address] [place], [place] [address] ED NOTEon 06-18-2023 ED NOTE HNO ID: [id number] Author: KATHRINE DENNEY, RN Service: Emergency Medicine Author Type: Registered Nurse Type: ED Notes Filed: 06/18/2023 06:15 Note Text: Bus pass given [facility] ED PROV NOTEon 06-18-2023 ED PROV NOTE HNO ID: [id number] Author: DANNY TRAN MD Service: ? Author [...] AM PAGER/CONTACT #: DANNY TRAN 06/18/23 0558 [facility] Ethanol SerPl-mCncon 024 Ethanol [Mass/Vol] 0.061 gm/dL High <0.010 [facility] Comment on above: Order Comment: Speci men Type: BLOOD SPECIMEN Ordering Facility: [facility] Address: [address] [place] [id number] Performed By: #### 3 4528-0, 74221-9 #### [facility] CLIA [id number] [address] [place], [place] [address] [place] Ethanol [Mass/Vol] 0.193 gm/dL High <0.010 [facility] Comment on above: Order Comment: Janes merlos Type: BLOOD SPECIMEN Ordering Facility: [facility] Address: [address] [place] [address] Performed By: #### 3 4528-0, 33750-6 #### [facility] CLIA [id number] [address] [place], [place] [address] [place] APAP SerPl-mCncon 06-17-2023 Acetaminophen [Mass/Vol] ug/mL Low 10-30 [facility] Comment on above: Order Comment: Janes merlos Type: BLOOD SPECIMEN Ordering Facility: [facility] Address: [address] [place] [address] Result Comment: Toxi c > 50 ug/mL 4 hours post ingestion The Kassandra Richardson nomogram can be used to estimate the probability of hepatotoxicity via the relationship of plasma acetaminophen concentration to the post ingestion interval. (Rukhsana. Pediatrics. 1975. 55:871 to 876 and Kassandra et al. Arch Naturopathic Oncology Provider Med. 1981. 141:380 to 385). Reference ranges and high/low indicator flags are provided as general guidelines only. The treating physician must determine appropriate target levels/dosing based on the specific clinical situation. Performed By: #### 3 4528-0, 47311-8 #### [facility] CLIA [id number] [address] [place], [place] [address] [place] CBC panel Auto (Bld)on 06-16 Erythrocyte distribution width (RBC) [Ratio] 13.1 % Normal 11.5-15.0 [facility] Comment on above: Order Comment: Janes merlos Type: BLOOD SPECIMEN Ordering Facility: [facility] Address: [address] [place], [place] [address] Performed By: #### 3 4528-0, 59654-8 #### [facility] CLIA [id number] [address] [place] [address] [place] Hematocrit (Bld) [Volume fraction] 52.2 % High 36.0-46.0 [facility] Comment on above: Order Comment: Speci men Type: BLOOD SPECIMEN Ordering Facility: [facility] Address: [address] [place] [address] Performed By: #### 3 4528-0, 39933-9 #### [facility] CLIA [id number] [address] [place] [address] [place] Hemoglobin (Bld) [Mass/Vol] 17.1 g/dL High 11.5-15.5 [facility] Comment on above: Order Comment: Speci men Type: BLOOD SPECIMEN Ordering Facility: [facility] Address: [address] [place] [address] Performed By: #### 3 4528-0, 77411-8 #### [facility] CLIA [id number] [address] [place] [address] [place] MCH (RBC) [Entitic mass] 32.3 pg Normal 26.0-34.0 [facility] Comment on above: Order Comment: Speci men Type: BLOOD SPECIMEN Ordering Facility: [facility] Address: [address] [place] [address] Performed By: #### 3 4528-0, 19194-8 #### [facility] CLIA [id number] [address] [place] [address] [place] MCHC (RBC) [Mass/Vol] 32.8 g/dL Normal 30.5-36.0 [facility] Comment on above: Order Comment: Speci men Type: BLOOD SPECIMEN Ordering Facility: [facility] Address: [address] [place] [address] Performed By: #### 3 4528-0, 62733-6 #### [facility] CLIA [id number] [address] [place] [address] [place] MCV (RBC) [Entitic vol] 98.5 fL Normal 80.0-100.[address] [facility] Comment on above: Order Comment: Speci men Type: BLOOD SPECIMEN Ordering Facility: [facility] Address: [address] [place] [address] Performed By: #### 3 4528-0, 64918-8 #### [facility] CLIA [id number] [address] [place] [address] [place] Nucleated RBC (Bld) [#/Vol] 10*3/uL Normal <0.01 [facility] Comment on above: Order Comment: Speci men Type: BLOOD SPECIMEN Ordering Facility: [facility] Address: [address] [place] [address] Performed By: #### 3 4528-0, 47519-8 #### [facility] CLIA [id number] [address] [place] [address] [place] Platelet mean volume (Bld) [Entitic vol] 10.7 fL Normal 9.0-12.7 [facility] Comment on above: Order Comment: Speci men Type: BLOOD SPECIMEN Ordering Facility: [facility] Address: [address] [place] [address] Performed By: #### 3 4528-0, 70002-6 #### [facility] CLIA [id number] [address] [place] [address] [place] Platelets (Bld) [#/Vol] 373 10*3/uL Normal 150-400 [facility] Comment on above: Order Comment: Speci men Type: BLOOD SPECIMEN Ordering Facility: [facility] Address: [address] [place] [address] Performed By: #### 3 4528-0, 13599-4 #### [facility] CLIA [id number] [address] [place] [address] [place] RBC (Bld) [#/Vol] 5.30 10*6/uL High 3.90-5.20 [facility] Comment on above: Order Comment: Speci men Type: BLOOD SPECIMEN Ordering Facility: [facility] Address: [address] [place] [address] Performed By: #### 3 4528-0, 60093-7 #### [facility] CLIA [id number] [address] [place] [address] [place] WBC (Bld) [#/Vol] 7.73 10*3/uL Normal 3.70-11.00 [facility] Comment on above: Order Comment: Speci men Type: BLOOD SPECIMEN Ordering Facility: [facility] Address: [address] [place] [address] Performed By: #### 3 4528-0, 54419-6 #### [facility] CLIA [id number] [address] [place] [address] [place] [facility] [place] Comprehensive metabolic 2000 panelon 06-17-2023 Albumin [Mass/Vol] 3.9 g/dL Normal 3.2-5.0 [facility] Comment on above: Order Comment: Speci men Type: BLOOD SPECIMEN Ordering Facility: [facility] Address: [address] [place] [address] Performed By: #### 3 4528-0, 36662-7 #### [facility] CLIA [id number] [address] [place] [address] [place] ALP [Catalytic activity/Vol] 123 U/L High 45-117 [facility] Comment on above: Order Comment: Speci men Type: BLOOD SPECIMEN Ordering Facility: [facility] Address: [address] [place] [address] Performed By: #### 3 4528-0, 95475-5 #### [facility] CLIA [id number] [address] [place], [place] [address] [place] ALT [Catalytic activity/Vol] 24 U/L Normal 13-61 [facility] Comment on above: Order Comment: Speci men Type: BLOOD SPECIMEN Ordering Facility: [facility] Address: [address] [place] [address] Result Comment: Resu lts may be falsely depressed after the administration of Sulfasalazine and/or Sulfapyridine. Performed By: #### 3 4528-0, 78162-6 #### [facility] CLIA [id number] [address] [place] [address] [place] Anion gap [Moles/Vol] 11 mmol/L Normal 5-16 [facility] Comment on above: Order Comment: Speci men Type: BLOOD SPECIMEN Ordering Facility: [facility] Address: [address] [place] [address] Performed By: #### 3 4528-0, 02007-7 #### [facility] CLIA [id number] [address] [place] [address] [place] AST [Catalytic activity/Vol] 30 U/L Normal 8-34 [facility] Comment on above: Order Comment: Speci men Type: BLOOD SPECIMEN Ordering Facility: [facility] Address: [address] [place] [address] Result Comment: Resu lts may be falsely depressed after the administration of Sulfasalazine and/or Sulfapyridine. Performed By: #### 3 4528-0, 82497-2 #### [facility] CLIA [id number] [address] [place] [address] [place] Bilirubin [Mass/Vol] 0.6 mg/dL Normal 0.2-1.0 [facility] Comment on above: Order Comment: Speci men Type: BLOOD SPECIMEN Ordering Facility: [facility] Address: [address] [place] [address] Performed By: #### 3 4528-0, 47475-3 #### [facility] CLIA [id number] [address] [place] [address] [place] Calcium [Mass/Vol] 9.8 mg/dL Normal 8.5-10.5 [facility] Comment on above: Order Comment: Speci men Type: BLOOD SPECIMEN Ordering Facility: [facility] Address: [address] [place] [address] Performed By: #### 3 4528-0, 42426-8 #### [facility] CLIA [id number] [address] [place], [place] [address] [place] Chloride [Moles/Vol] 100 mmol/L Normal 98-107 [facility] Comment on above: Order Comment: Speci men Type: BLOOD SPECIMEN Ordering Facility: [facility] Address: [address] [place] [address] Performed By: #### 3 4528-0, 77345-0 #### [facility] CLIA [id number] [address] [place] [address] [place] CO2 [Moles/Vol] 31 mmol/L Normal 21-32 [facility] Comment on above: Order Comment: Speci men Type: BLOOD SPECIMEN Ordering Facility: [facility] Address: [address] [place] [address] Performed By: #### 3 4528-0, 94615-5 #### [facility] CLIA [id number] [address] [place] [address] [place] Creatinine [Mass/Vol] 0.44 mg/dL Low 0.51-0.95 [facility] Comment on above: Order Comment: Speci men Type: BLOOD SPECIMEN Ordering Facility: [facility] Address: [address] [place] [address] Result Comment: Osvaldo ents receiving either N-Acetylcysteine (NAC) or Metamizole prior to venipuncture, may have falsely depressed results. Performed By: #### 3 4528-0, 83309-9 #### [facility] CLIA [id number] [address] [place] [address] [place] [facility] Creatinine and Glomerular filtration rate.predicted panel (S/P/Bld) 140 mL/min/1.73m??? Normal >=60 [facility] Comment on above: Order Comment: Speci men Type: BLOOD SPECIMEN Ordering Facility: [facility] Address: [address] [place] [address] Result Comment: Mulu mated Glomerular Filtration Rate [...] actual GFR. Performed By: #### 3 4528-0, 10468-5 #### [facility] CLIA [id number] [address] [place], [place] [address] [place] Glucose [Mass/Vol] 103 mg/dL High 70-100 [facility] Comment on above: Order Comment: Janes merlos Type: BLOOD SPECIMEN Ordering Facility: [facility] Address: [address] [place], [place] [address] Result Comment: The [place] [employer] (ADA) provides guidance for cutoff [...] Standards of Medical Care in Diabetes 2016, [place] [employer]. Diabetes Care. 2016.39(Suppl 1). Results may be falsely elevated after the administration of Sulfapyridine. Results may be falsely depressed after the administration of Sulfasalazine. Performed By: #### 3 4528-0, 83310-9 #### [facility] CLIA [id number] [address] [place] [address] [place] Potassium [Moles/Vol] 3.3 mmol/L Low 3.5-5.1 [facility] Comment on above: Order Comment: Janes merlos Type: BLOOD SPECIMEN Ordering Facility: [facility] Address: [address] [place] [address] Performed By: #### 3 4528-0, 20709-0 #### [facility] CLIA [id number] [address] [place] [address] [place] Protein [Mass/Vol] 8.7 g/dL High 6.0-8.5 [facility] Comment on above: Order Comment: Speci men Type: BLOOD SPECIMEN Ordering Facility: [facility] Address: [address] [id number] Performed By: #### 3 4528-0, 80880-1 #### [facility] CLIA [id number] [address] [place], [place] [address] [place] Sodium [Moles/Vol] 142 mmol/L Normal 136-145 [facility] Comment on above: Order Comment: Speci men Type: BLOOD SPECIMEN Ordering Facility: [facility] Address: [address] [place] [address] Performed By: #### 3 4528-0, 95085-6 #### [facility] CLIA [id number] [address] [place], [place] [address] [place] Urea nitrogen [Mass/Vol] mg/dL Low 7-26 [facility] Comment on above: Order Comment: Speci men Type: BLOOD SPECIMEN Ordering Facility: [facility] Address: [facility] [place] [address] Performed By: #### 3 4528-0, 74177-9 #### [facility] CLIA [id number] [address] [place] [address] [place] ECG COMPLETEon 06-17-2023 ECG COMPLETE Ventricular Rate : 9 9 BPM Atrial Rate : 99 BPM P-R Interval : 164 ms QRS Duration : 84 ms Q-T Interval : 366 ms QTC Calculation(Bazett) : 469 ms Calculated P [place] : 51 degrees Calculated R [place] : 10 degrees Calculated T [place] : 5 degrees Normal sinus rhythm Nonspecific T wave abnormality Abnormal ECG When compared with ECG of 09-Jun-2023 06:29, No significant change was found Confirmed by VASQUEZ AZAR [facility] ([id number]) on 06/18/2023 11:48:58 AM NAME : DHAVAL MOON PID : [id number] : 2000 Gender : Female Race : Other ORD : [id number] Procedure Date : Jun 17 2023 20:05:39 Edit Date : Jun 18 2023 11:49:02 Diagnosis: Normal sinus rhythm Nonspecific T wave abnormality Abnormal ECG When compared with ECG of 09-Jun-2023 06:29, No significant change was found Confirmed by JAYESH OVALLE MD ([id number]) on 06/18/2023 11:48:58 AM Test Reason : STAT Location : 0 : ED 4 Overread By : JAYESH OVALLE MD Edited By : JAYESH OVALLE MD Referred By : , Acquired by : SIMÓN, [facility] ED NOTEon 06-17-2023 ED NOTE HNO ID: [id number] Author: JUMANA SILVER RN Service: Emergency Medicine Author Type: Registered Nurse Type: ED Notes Filed: 06/17/2023 20:27 Note Text: Pt's last drink approx 2 hours ago. [facility] ED NOTE HNO ID: [id number] Author: HIGINIO HOUSTON Medic Service: ? 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 Belongings removed from pt. Pt placed on tele leads. Pt going back and forth between emotions quickly but is remaining calm and cooperative. Sitter at bedside. [facility] ED NOTE HNO ID: [id number] Author: MARISOL GRIFFITH LPN Service: ? Author Type: LICENSED NURSE Type: ED Notes Filed: 06/17/2023 19:47 Note Text: Bed: 04-ED Expected date: Expected time: Means of arrival: Comments: PIT [facility] ED PROV NOTEon 06-17-2023 ED PROV NOTE HNO ID: [id number] Author: BHARAT LIU MD Service: Emergency Medicine [...] Plan 32-year- (more content not included)... [facility] [facility] 024 Ethanol [Mass/Vol] 0.249 gm/dL High <0.010 [facility] Comment on above: Order Comment: Speci men Type: BLOOD SPECIMEN Ordering Facility: [facility] Address: [address] [place] [address] Performed By: #### 3 4528-0, 09024-1 #### [facility] CLIA [id number] [address] [place] [address] [place] HCG Preg Ur Qlon 06-17-2023 HCG ( test) Ql (U) Negative Normal Negative [facility] Comment on above: Order Comment: Speci men Type: BLOOD SPECIMEN Ordering Facility: [facility] Address: [address] [place] [address] Result Comment: This test is intended to aid in the early detection of . Very dilute urine samples, as indicated by a low specific gravity, may not contain associate sales representative levels of hCG. This test [...] for . Performed By: #### 3 4528-0, 33366-1 #### [facility] CLIA [id number] [address] [place] [address] [place] SARS-CoV-2 RNA Resp Ql AZALEA+p robeon 06-17-2023 SARS-CoV-2 (COVID-19) RNA AZALEA+probe Ql (Resp) COVID 19 RESULT: Not detected The method used is RT-PCR or an equivalent NAAT method. Reference Range(the expected result in uninfected individuals): Not detected Normal [facility] Comment on above: Performed By: #### 3 4528-0, 82914-5 #### [facility] CLIA [id number] [address] [place] [address] [place] Salicylates SerPl-mCncon Salicylates [Mass/Vol] mg/dL Normal 2.8-20.0 [facility] Comment on above: Order Comment: Juliannei chelita Type: BLOOD SPECIMEN Ordering Facility: [facility] Address: [address] [place] [address] Result Comment: Refe rence ranges and high/low indicator flags are provided as general guidelines only. The treating physician must determine appropriate target levels/dosing based on the specific clinical situation. Performed By: #### 3 4528-0, 19409-8 #### [facility] CLIA [id number] [address] [place] [address] [place] TOXICOLOGY SCREEN, ROUTINE U RINEon 06-17-2023 Amphetamines Confirm (U) [Mass/Vol] Negative Normal Negative [facility] Comment on above: Order Comment: Speci men Type: BLOOD SPECIMEN Ordering Facility: [facility] Address: [address] [place] [address] Result Comment: Cuto ff threshold at 1000 ng/mL. Performed By: #### 3 4528-0, 77103-6 #### [facility] CLIA [id number] [address] [place] [address] [place] BARBITURATES, URINE Positive Abnormal Negative [facility] Comment on above: Order Comment: Speci men Type: BLOOD SPECIMEN Ordering Facility: [facility] Address: [address] [place] [address] Result Comment: Cuto ff threshold at 200 ng/mL. Performed By: #### 3 4528-0, 71434-0 #### [facility] CLIA [id number] [address] [place] [address] [place] BENZODIAZEPINES, UR Negative Normal Negative [facility] Comment on above: Order Comment: Speci men Type: BLOOD SPECIMEN Ordering Facility: [facility] Address: [address] [place] [address] Result Comment: Cuto ff threshold at 200 ng/mL. Performed By: #### 3 4528-0, 19939-2 #### [facility] CLIA [id number] [address] [place] [address] [place] Cannabinoids Screen Ql (U) Negative Normal Negative [facility] Comment on above: Order Comment: Speci men Type: BLOOD SPECIMEN Ordering Facility: [facility] Address: [address] [place] [address] Result Comment: Cuto ff threshold at 50 ng/mL. Performed By: #### 3 4528-0, 52846-7 #### [facility] CLIA [id number] [address] [place] [address] [place] Cocaine Ql (U) Negative Normal Negative [facility] Comment on above: Order Comment: Speci men Type: BLOOD SPECIMEN Ordering Facility: [facility] Address: [address] [place] [address] Result Comment: Cuto ff threshold at 300 ng/mL. Performed By: #### 3 4528-0, 81417-7 #### [facility] CLIA [id number] [address] [place] [address] [place] [facility] Opiates Screen Ql (U) Negative Normal Negative [facility] Comment on above: Order Comment: Speci men Type: BLOOD SPECIMEN Ordering Facility: [facility] Address: [address] [place] [address] Result Comment: Cuto ff threshold at 300 ng/mL. Performed By: #### 3 4528-0, 52154-5 #### [facility] CLIA [id number] [address] [place] [address] [place] [facility] Phencyclidine Ql (U) Negative Normal Negative [facility] Comment on above: Order Comment: Speci men Type: BLOOD SPECIMEN Ordering Facility: [facility] Address: [address] [place] [address] Result Comment: Cuto ff threshold at 25 ng/mL. Performed By: #### 3 4528-0, 46804-2 #### [facility] CLIA [id number] [address] [place] [address] [place] Urinalysis complete panel (U )on 06-17-2023 Bacteria LM.HPF (Urine sed) [#/Area] None Seen Normal None Seen [facility] Comment on above: Order Comment: Speci men Type: BLOOD SPECIMEN Ordering Facility: [facility] Address: [address] [place] [address] Performed By: #### 3 4528-0, 87469-2 #### [facility] CLIA [id number] [address] [place] [address] [place] Bilirubin Ql (U) Negative Normal Negative [facility] Comment on above: Order Comment: Speci men Type: BLOOD SPECIMEN Ordering Facility: [facility] Address: [facility] [place] [address] Performed By: #### 3 4528-0, 46707-2 #### [facility] CLIA [id number] [address] [place] [address] [place] Clarity (Unsp spec) Clear Normal Clear [facility] Comment on above: Order Comment: Speci men Type: BLOOD SPECIMEN Ordering Facility: [facility] Address: [address] [place] [address] Performed By: #### 3 4528-0, 69898-2 #### [facility] CLIA [id number] [address] [place] [address] OF [facility] Color (U) Straw Normal Yellow [facility] Comment on above: Order Comment: Speci men Type: BLOOD SPECIMEN Ordering Facility: [facility] Address: [address] [place] [address] Performed By: #### 3 4528-0, 21830-8 #### [facility] CLIA [id number] [address] [place] [address] [place] Epithelial cells LM.HPF (Urine sed) [#/Area] Few Normal [facility] Comment on above: Order Comment: Speci men Type: BLOOD SPECIMEN Ordering Facility: [facility] Address: [address] [place] [address] Performed By: #### 3 4528-0, 37968-2 #### [facility] CLIA [id number] [address] [place] [address] [place] Glucose Test strip (U) [Mass/Vol] Negative Normal Negative [facility] Comment on above: Order Comment: Speci men Type: BLOOD SPECIMEN Ordering Facility: [facility] Address: [address] [place] [address] Performed By: #### 3 4528-0, 46682-3 #### [facility] CLIA [id number] [address] [place] [address] [place] Hemoglobin Ql (U) Negative Normal Negative [facility] Comment on above: Order Comment: Speci men Type: BLOOD SPECIMEN Ordering Facility: [facility] Address: [address] [place] [address] Performed By: #### 3 4528-0, 89671-8 #### [facility] CLIA [id number] [address] [place] [address] [place] Ketones Ql (U) Negative Normal Negative [facility] Comment on above: Order Comment: Speci men Type: BLOOD SPECIMEN Ordering Facility: [facility] Address: [address] [place] [address] Performed By: #### 3 4528-0, 50431-2 #### [facility] CLIA [id number] [address] [place] [address] [place] Leukocyte esterase Test strip Ql (U) Negative Normal Negative [facility] Comment on above: Order Comment: Speci men Type: BLOOD SPECIMEN Ordering Facility: [facility] Address: [address] [place] [address] Performed By: #### 3 4528-0, 52669-8 #### [facility] CLIA [id number] [address] [place] [address] [place] Nitrite Ql (U) Negative Normal Negative [facility] Comment on above: Order Comment: Speci men Type: BLOOD SPECIMEN Ordering Facility: [facility] Address: [address] [place] [address] Performed By: #### 3 4528-0, 11976-9 #### [facility] CLIA [id number] [address] [place] [address] [place] pH (U) 6.0 [pH] Normal 5.0-8.0 [facility] Comment on above: Order Comment: Speci men Type: BLOOD SPECIMEN Ordering Facility: [facility] Address: [address] [place] [address] Performed By: #### 3 4528-0, 39908-7 #### [facility] CLIA [id number] [address] [place] [address] [place] Protein (U) [Mass/Vol] Negative Normal Negative [facility] Comment on above: Order Comment: Speci men Type: BLOOD SPECIMEN Ordering Facility: [facility] Address: [address] [place] [address] Performed By: #### 3 4528-0, 58097-7 #### [facility] CLIA [id number] [address] [place] [address] [place] RBC LM.HPF (Urine sed) [#/Area] 0-3 /HPF Normal 0-3 /HPF [facility] Comment on above: Order Comment: Speci men Type: BLOOD SPECIMEN Ordering Facility: [facility] Address: [address] [place] [address] Performed By: #### 3 4528-0, 77511-5 #### [facility] CLIA [id number] [address] [place] [address] OF [facility] Specific gravity (U) [Rel density] <1.005 Low 1.005-1.03 0 [facility] Comment on above: Order Comment: Speci men Type: BLOOD SPECIMEN Ordering Facility: [facility] Address: [address] [place] [address] Performed By: #### 3 4528-0, 66851-8 #### [facility] CLIA [id number] [address] [place] [address] [place] Urobilinogen Ql (U) Negative Normal Negative [facility] Comment on above: Order Comment: Speci men Type: BLOOD SPECIMEN Ordering Facility: [facility] Address: [address] [place] [address] Performed By: #### 3 4528-0, 76194-1 #### [facility] CLIA [id number] [address] [place] [address] [place] WBC LM.HPF (Urine sed) [#/Area] 0-5 /HPF Normal 0-5 /HPF [facility] Comment on above: Order Comment: Speci men Type: BLOOD SPECIMEN Ordering Facility: [facility] Address: [address] [place] [address] Performed By: #### 3 4528-0, 38281-1 #### [facility] CLIA [id number] [address] [place] [address] [place] CBC W Auto Differential pane l (Bld)on 06-10-2023 Basophils (Bld) [#/Vol] 10*3/uL Normal <0.11 [facility] Comment on above: Order Comment: Speci men Type: BLOOD SPECIMEN Ordering Facility: [facility] Address: [address] [place] [address] Performed By: #### 5 7021-8, 4537-7 #### [facility] CLIA [id number] [address] [place] [address] [place] Basophils/100 WBC (Bld) 0.3 % Normal [facility] Comment on above: Order Comment: Speci men Type: BLOOD SPECIMEN Ordering Facility: [facility] Address: [address] [place] [address] Performed By: #### 5 7021-8, 4537-7 #### [facility] CLIA [id number] [address] [place] [address] [place] Differential cell count method Nom (Bld) Auto Normal [facility] Comment on above: Order Comment: Speci men Type: BLOOD SPECIMEN Ordering Facility: [facility] Address: [address] [place] [address] Performed By: #### 5 7021-8, 4537-7 #### [facility] CLIA [id number] [address] [place] [address] [place] Eosinophils (Bld) [#/Vol] 0.19 10*3/uL Normal <0.46 [facility] Comment on above: Order Comment: Speci men Type: BLOOD SPECIMEN Ordering Facility: [facility] Address: [address] [place] [address] Performed By: #### 5 7021-8, 4537-7 #### [facility] CLIA [id number] [address] [place] [address] [place] Eosinophils/100 WBC (Bld) 2.6 % Normal [facility] Comment on above: Order Comment: Speci men Type: BLOOD SPECIMEN Ordering Facility: [facility] Address: [address] [place] [address] Performed By: #### 5 7021-8, 4537-7 #### [facility] CLIA [id number] [address] [place] [address] [place] Erythrocyte distribution width (RBC) [Ratio] 13.1 % Normal 11.5-15.0 [facility] Comment on above: Order Comment: Speci men Type: BLOOD SPECIMEN Ordering Facility: [facility] Address: [address] [place] [address] Performed By: #### 5 7021-8, 4537-7 #### [facility] CLIA [id number] [address] [place] [address] [place] Hematocrit (Bld) [Volume fraction] 46.2 % High 36.0-46.0 [facility] Comment on above: Order Comment: Speci men Type: BLOOD SPECIMEN Ordering Facility: [facility] Address: [address] [place] [address] Performed By: #### 5 7021-8, 4537-7 #### [facility] CLIA [id number] [address] [place] [address] [place] Hemoglobin (Bld) [Mass/Vol] 15.5 g/dL Normal 11.5-15.5 [facility] Comment on above: Order Comment: Speci men Type: BLOOD SPECIMEN Ordering Facility: [facility] Address: [address] [place] [address] Performed By: #### 5 7021-8, 4537-7 #### [facility] CLIA [id number] [address] [place] [address] [place] Immature granulocytes (Bld) [#/Vol] 10*3/uL Normal <0.10 [facility] Comment on above: Order Comment: Speci men Type: BLOOD SPECIMEN Ordering Facility: [facility] Address: [address] [place] [address] Performed By: #### 5 7021-8, 4537-7 #### [facility] CLIA [id number] [address] [place] [address] [place] Immature granulocytes/100 WBC (Bld) 0.3 % Normal [facility] Comment on above: Order Comment: Speci men Type: BLOOD SPECIMEN Ordering Facility: [facility] Address: [address] [place] [address] Performed By: #### 5 7021-8, 453-7 #### [facility] CLIA [id number] [address] [place] [address] [place] Lymphocytes (Bld) [#/Vol] 1.42 10*3/uL Normal 1.00-4.0 0 [facility] Comment on above: Order Comment: Speci men Type: BLOOD SPECIMEN Ordering Facility: [facility] Address: [address] [place] [address] Performed By: #### 5 7021-8, 453-7 #### [facility] CLIA [id number] [address] [place] [address] [place] Lymphocytes/100 WBC (Bld) 19.2 % Normal [facility] Comment on above: Order Comment: Speci men Type: BLOOD SPECIMEN Ordering Facility: [facility] Address: [address] [place] [address] Performed By: #### 5 7021-8, 4536-7 #### [facility] CLIA [id number] [address] [place] [address] [place] MCH (RBC) [Entitic mass] 33.3 pg Normal 26.0-34.0 [facility] Comment on above: Order Comment: Speci men Type: BLOOD SPECIMEN Ordering Facility: [facility] Address: [address] [place] [address] Performed By: #### 5 7021-8, 4537-7 #### [facility] CLIA [id number] [address] [place] [address] [place] MCHC (RBC) [Mass/Vol] 33.5 g/dL Normal 30.5-36.0 [facility] Comment on above: Order Comment: Speci men Type: BLOOD SPECIMEN Ordering Facility: [facility] Address: [address] [place] [address] Performed By: #### 5 7021-8, 4537-7 #### [facility] CLIA [id number] [address] [place] [address] [place] MCV (RBC) [Entitic vol] 99.4 fL Normal 80.0-100.0 [facility] Comment on above: Order Comment: Speci men Type: BLOOD SPECIMEN Ordering Facility: [facility] Address: [address] [place] [address] Performed By: #### 5 7021-8, 4537-7 #### [facility] CLIA [id number] [address] [place] [address] [place] Monocytes (Bld) [#/Vol] 0.59 10*3/uL Normal <0.87 [facility] Comment on above: Order Comment: Speci men Type: BLOOD SPECIMEN Ordering Facility: [facility] Address: [address] [place] [address] Performed By: #### 5 7021-8, 4537-7 #### [facility] CLIA [id number] [address] [place] [address] [place] Monocytes/100 WBC (Bld) 8.0 % Normal [facility] Comment on above: Order Comment: Speci men Type: BLOOD SPECIMEN Ordering Facility: [facility] Address: [address] [place] [address] Performed By: #### 5 7021-8, 4537-7 #### [facility] CLIA [id number] [address] [place] [address] [place] Neutrophils (Bld) [#/Vol] 5.15 10*3/uL Normal 1.45-7.5 0 [facility] Comment on above: Order Comment: Speci men Type: BLOOD SPECIMEN Ordering Facility: [facility] Address: [address] [place] [address] Performed By: #### 5 7021-8, 4537-7 #### [facility] CLIA [id number] [address] [place] [address] [place] Neutrophils/100 WBC (Bld) 69.6 % Normal [facility] Comment on above: Order Comment: Speci men Type: BLOOD SPECIMEN Ordering Facility: [facility] Address: [address] [place] [address] Performed By: #### 5 7021-8, 453-7 #### [facility] CLIA [id number] [address] [place] [address] [place] Nucleated RBC (Bld) [#/Vol] 10*3/uL Normal <0.01 [facility] Comment on above: Order Comment: Speci men Type: BLOOD SPECIMEN Ordering Facility: [facility] Address: [address] [place] [address] Performed By: #### 5 7021-8, 7 #### [facility] CLIA [id number] [address] [place] [address] [place] Nucleated RBC/100 WBC (Bld) [Ratio] 0.0 /100 WBC Normal [facility] Comment on above: Order Comment: Speci men Type: BLOOD SPECIMEN Ordering Facility: [facility] Address: [address] [place] [address] Performed By: #### 5 7021-8, 7 #### [facility] CLIA [id number] [address] [place] [address] [place] Platelet mean volume (Bld) [Entitic vol] 10.8 fL Normal 9.0-12.7 [facility] Comment on above: Order Comment: Speci men Type: BLOOD SPECIMEN Ordering Facility: [facility] Address: [address] [place] [address] Performed By: #### 5 7021-8, 4536-7 #### [facility] CLIA [id number] [address] [place] [address] [place] Platelets (Bld) [#/Vol] 278 10*3/uL Normal 150-400 [facility] Comment on above: Order Comment: Speci men Type: BLOOD SPECIMEN Ordering Facility: [facility] Address: [address] [place] [address] Performed By: #### 5 7021-8, 4537-7 #### [facility] CLIA [id number] [address] [place], [place] [address] [place] RBC (Bld) [#/Vol] 4.65 10*6/uL Normal 3.90-5.20 [facility] Comment on above: Order Comment: Speci men Type: BLOOD SPECIMEN Ordering Facility: [facility] Address: [address] [place] [address] Performed By: #### 5 7021-8, 4537-7 #### [facility] CLIA [id number] [address] [place] [address] [place] WBC (Bld) [#/Vol] 7.39 10*3/uL Normal 3.70-11.00 [facility] Comment on above: Order Comment: Speci men Type: BLOOD SPECIMEN Ordering Facility: [facility] Address: [address] [place] [address] Performed By: #### 5 7021-8, 4537-7 #### [facility] CLIA [id number] [address] [place] [address] [place] CNDSon 06-10-2023 CNDS HNO ID: [id number] Author: LUKAS YOO MD Service: Hospital Medicine [...] Sierra, PhD Attending: MR BERNARDA HARDING Consulting: Jay Jay Rai MD REASON FOR HOSPITALIZATION: Alcohol use [...] 90 mcg/actuat (more content not included)... Normal [facility] Comprehensive metabolic 2000 panelon 06-10-2023 Albumin [Mass/Vol] 3.4 g/dL Normal 3.2-5.0 [facility] Comment on above: Order Comment: Speci men Type: BLOOD SPECIMEN Ordering Facility: [facility] Address: [address] [place] [address] Performed By: #### 5 7021-8, 4537-7 #### [facility] CLIA [id number] [address] [place] [address] [place] ALP [Catalytic activity/Vol] 87 U/L Normal 45-117 [facility] Comment on above: Order Comment: Speci men Type: BLOOD SPECIMEN Ordering Facility: [facility] Address: [address] [place] [address] Performed By: #### 5 7021-8, 4537-7 #### [facility] CLIA [id number] [address] [place], [place] [id number] [place] ALT [Catalytic activity/Vol] 24 U/L Normal 13-61 [facility] Comment on above: Order Comment: Speci men Type: BLOOD SPECIMEN Ordering Facility: [facility] Address: [address] [place] [address] Result Comment: Resu lts may be falsely depressed after the administration of Sulfasalazine and/or Sulfapyridine. Performed By: #### 5 7021-8, 4537-7 #### [facility] CLIA [id number] [address] [place] [address] [place] Anion gap [Moles/Vol] 4 mmol/L Low 5-16 [facility] Comment on above: Order Comment: Speci men Type: BLOOD SPECIMEN Ordering Facility: [facility] Address: [address] [place] [address] Performed By: #### 5 7021-8, 4537-7 #### [facility] CLIA [id number] [address] [place] [address] [place] AST [Catalytic activity/Vol] 31 U/L Normal 8-34 [facility] Comment on above: Order Comment: Speci men Type: BLOOD SPECIMEN Ordering Facility: [facility] Address: [address] [place] [address] Result Comment: Resu lts may be falsely depressed after the administration of Sulfasalazine and/or Sulfapyridine. Performed By: #### 5 7021-8, 7 #### [facility] CLIA [id number] [address] [place] [address] [place] Bilirubin [Mass/Vol] 1.6 mg/dL High 0.2-1.0 [facility] Comment on above: Order Comment: Speci men Type: BLOOD SPECIMEN Ordering Facility: [facility] Address: [address] [place] [address] Performed By: #### 5 7021-8, 7 #### [facility] CLIA [id number] [address] [place] [address] [place] Calcium [Mass/Vol] 9.9 mg/dL Normal 8.5-10.5 [facility] Comment on above: Order Comment: Speci men Type: BLOOD SPECIMEN Ordering Facility: [facility] Address: [address] [place] [address] Performed By: #### 5 7021-8, 7 #### [facility] CLIA [id number] [address] [place] [address] [place] Chloride [Moles/Vol] 107 mmol/L Normal 98-107 [facility] Comment on above: Order Comment: Speci men Type: BLOOD SPECIMEN Ordering Facility: [facility] Address: [address] [place] [address] Performed By: #### 5 7021-8, 7 #### [facility] CLIA [id number] [address] [place] [address] [place] CO2 [Moles/Vol] 29 mmol/L Normal 21-32 [facility] Comment on above: Order Comment: Speci men Type: BLOOD SPECIMEN Ordering Facility: [facility] Address: [address] [place] [address] Performed By: #### 5 7021-8, 7 #### [facility] CLIA [id number] [address] [place] [address] [place] Creatinine [Mass/Vol] 0.42 mg/dL Low 0.51-0.95 [facility] Comment on above: Order Comment: Speci men Type: BLOOD SPECIMEN Ordering Facility: [facility] Address: [address] [place] [address] Result Comment: Osvaldo ents receiving either N-Acetylcysteine (NAC) or Metamizole prior to venipuncture, may have falsely depressed results. Performed By: #### 5 7021-8, 4537-7 #### [facility] CLIA [id number] [address] [place] [address] [place] Creatinine and Glomerular filtration rate.predicted panel (S/P/Bld) 141 mL/min/1.73m??? Normal >=60 [facility] Comment on above: Order Comment: Janes merlos Type: BLOOD SPECIMEN Ordering Facility: [facility] Address: [address] [place] [address] Result Comment: Mulu mated Glomerular Filtration Rate [...] Performed By: #### 5 7021-8, 4537-7 #### [facility] CLIA [id number] [address] [place] [address] [place] Glucose [Mass/Vol] 97 mg/dL Normal 70-100 [facility] Comment on above: Order Comment: Janes merlos Type: BLOOD SPECIMEN Ordering Facility: [facility] Address: [address] [place] [address] Result Comment: The [place] Diabetes [employer] (ADA) provides guidance for cutoff [...] Standards of Medical Care in Diabetes 2016, [place] [employer]. Diabetes Care. 2016.39(Suppl 1). Results may be falsely elevated after the administration of Sulfapyridine. Results may be falsely depressed after the administration of Sulfasalazine. Performed By: #### 5 7021-8, 7-7 #### [facility] CLIA [id number] [address] [place] [address] [place] Potassium [Moles/Vol] 3.7 mmol/L Normal 3.5-5.1 [facility] Comment on above: Order Comment: Speci men Type: BLOOD SPECIMEN Ordering Facility: [facility] Address: [address] [place] [address] Performed By: #### 5 7021-8, 4536-7 #### [facility] CLIA [id number] [address] [place] [address] [place] Protein [Mass/Vol] 7.4 g/dL Normal 6.0-8.5 [facility] Comment on above: Order Comment: Speci men Type: BLOOD SPECIMEN Ordering Facility: [facility] Address: [address] [place] [address] Performed By: #### 5 7021-8, 7 #### [facility] CLIA [id number] [address] [place] [address] [place] Sodium [Moles/Vol] 140 mmol/L Normal 136-145 [facility] Comment on above: Order Comment: Speci men Type: BLOOD SPECIMEN Ordering Facility: [facility] Address: [address] [place] [address] Performed By: #### 5 7021-8, 4537-7 #### [facility] CLIA [id number] [address] [place] [address] [place] Urea nitrogen [Mass/Vol] mg/dL Low 7-26 [facility] Comment on above: Order Comment: Speci men Type: BLOOD SPECIMEN Ordering Facility: [facility] Address: [address] [place] [address] Performed By: #### 5 7021-8, 4537-7 #### [facility] CLIA [id number] [address] [place] [address] [place] Magnesium SerPl-mCncon 06-09 Magnesium [Mass/Vol] 1.9 mg/dL Normal 1.6-2.6 [facility] Comment on above: Order Comment: Janes merlos Type: BLOOD SPECIMEN Ordering Facility: [facility] Address: [address] [place], [place] [address] Performed By: #### 5 7021-8, 4537-7 #### [facility] CLIA [id number] [address] [place] [address] [place] Phosphate SerPl-mCncon 06-09 Phosphate [Mass/Vol] 4.5 mg/dL Normal 2.5-4.9 [facility] Comment on above: Order Comment: Janes merlos Type: BLOOD SPECIMEN Ordering Facility: [facility] Address: [address] [place] [address] Result Comment: Elev ated m-protein (paraprotein) levels in the serum may be exhibited in patients with monoclonal gammopathies, causing falsely elevated inorganic phosphorus results. Performed By: #### 5 7021-8, 4537-7 #### [facility] CLIA [id number] [address] [place] [address] [place] CBC panel Auto (Bld)on 06-08 Erythrocyte distribution width (RBC) [Ratio] 13.2 % Normal 11.5-15.0 [facility] Comment on above: Order Comment: Janes merlos Type: BLOOD SPECIMEN Ordering Facility: [facility] Address: [address] [place] [address] Performed By: #### 5 7021-8, 4537-7 #### [facility] CLIA [id number] [address] [place], [place] [address] [place] Hematocrit (Bld) [Volume fraction] 49.3 % High 36.0-46.0 [facility] Comment on above: Order Comment: Janes merlos Type: BLOOD SPECIMEN Ordering Facility: [facility] Address: [address] [place] [address] Performed By: #### 5 7021-8, 4537-7 #### [facility] CLIA [id number] [address] [place] [address] [place] Hemoglobin (Bld) [Mass/Vol] 16.4 g/dL High 11.5-15.5 [facility] Comment on above: Order Comment: Speci men Type: BLOOD SPECIMEN Ordering Facility: [facility] Address: [address] [place] [address] Performed By: #### 5 7021-8, 4537-7 #### [facility] CLIA [id number] [address] [place] [address] [place] MCH (RBC) [Entitic mass] 33.1 pg Normal 26.0-34.0 [facility] Comment on above: Order Comment: Speci men Type: BLOOD SPECIMEN Ordering Facility: [facility] Address: [address] [place] [address] Performed By: #### 5 7021-8, 4537-7 #### [facility] CLIA [id number] [address] [place] [address] [place] MCHC (RBC) [Mass/Vol] 33.3 g/dL Normal 30.5-36.0 [facility] Comment on above: Order Comment: Speci men Type: BLOOD SPECIMEN Ordering Facility: [facility] Address: [address] [place] [address] Performed By: #### 5 7021-8, 4537-7 #### [facility] CLIA [id number] [address] [place] [address] [place] MCV (RBC) [Entitic vol] 99.4 fL Normal 80.0-100.[address] [facility] Comment on above: Order Comment: Speci men Type: BLOOD SPECIMEN Ordering Facility: [facility] Address: [address] [place] [address] Performed By: #### 5 7021-8, 4537-7 #### [facility] CLIA [id number] [address] [place] [address] [place] Nucleated RBC (Bld) [#/Vol] 10*3/uL Normal <0.01 [facility] Comment on above: Order Comment: Speci men Type: BLOOD SPECIMEN Ordering Facility: [facility] Address: [address] [place] [address] Performed By: #### 5 7021-8, 4537-7 #### [facility] CLIA [id number] [address] [place] [address] [place] Platelet mean volume (Bld) [Entitic vol] 10.5 fL Normal 9.0-12.7 [facility] Comment on above: Order Comment: Speci men Type: BLOOD SPECIMEN Ordering Facility: [facility] Address: [address] [place] [address] Performed By: #### 5 7021-8, 4537-7 #### [facility] CLIA [id number] [address] [place] [address] [place] Platelets (Bld) [#/Vol] 279 10*3/uL Normal 150-400 [facility] Comment on above: Order Comment: Speci men Type: BLOOD SPECIMEN Ordering Facility: [facility] Address: [address] [place] [address] Performed By: #### 5 7021-8, 4537-7 #### [facility] CLIA [id number] [address] [place] [address] [place] RBC (Bld) [#/Vol] 4.96 10*6/uL Normal 3.90-5.20 [facility] Comment on above: Order Comment: Speci men Type: BLOOD SPECIMEN Ordering Facility: [facility] Address: [address] [place] [address] Performed By: #### 5 7021-8, 4537-7 #### [facility] CLIA [id number] [address] [place], [place] [address] [place] WBC (Bld) [#/Vol] 8.02 10*3/uL Normal 3.70-11.00 [facility] Comment on above: Order Comment: Speci men Type: BLOOD SPECIMEN Ordering Facility: [facility] Address: [address] [place] [address] Performed By: #### 5 7021-8, 4537-7 #### [facility] CLIA [id number] [address] [place] [address] [place] [facility] [place] Comprehensive metabolic 2000 panelon 06-09-2023 Albumin [Mass/Vol] 3.3 g/dL Normal 3.2-5.0 [facility] Comment on above: Order Comment: Speci men Type: BLOOD SPECIMEN Ordering Facility: [facility] Address: [address] [place] [address] Performed By: #### 5 7021-8, 4537-7 #### [facility] CLIA [id number] [address] [place] [address] [place] ALP [Catalytic activity/Vol] 94 U/L Normal 45-117 [facility] Comment on above: Order Comment: Speci men Type: BLOOD SPECIMEN Ordering Facility: [facility] Address: [address] [place] [address] Performed By: #### 5 7021-8, 4537-7 #### [facility] CLIA [id number] [address] [place] [address] [place] [facility] ALT [Catalytic activity/Vol] 32 U/L Normal 13-61 [facility] Comment on above: Order Comment: Speci men Type: BLOOD SPECIMEN Ordering Facility: [facility] Address: [address] [place] [address] Result Comment: Resu lts may be falsely depressed after the administration of Sulfasalazine and/or Sulfapyridine. Performed By: #### 5 7021-8, 4537-7 #### [facility] CLIA [id number] [address] [place], [place] [address] [place] Anion gap [Moles/Vol] 8 mmol/L Normal 5-16 [facility] Comment on above: Order Comment: Speci men Type: BLOOD SPECIMEN Ordering Facility: [facility] Address: [address] [place] [address] Performed By: #### 5 7021-8, 4537-7 #### [facility] CLIA [id number] [address] [place] [address] [place] AST [Catalytic activity/Vol] 34 U/L Normal 8-34 [facility] Comment on above: Order Comment: Speci men Type: BLOOD SPECIMEN Ordering Facility: [facility] Address: [address] [place] [address] Result Comment: Resu lts may be falsely depressed after the administration of Sulfasalazine and/or Sulfapyridine. Performed By: #### 5 7021-8, 4537-7 #### [facility] CLIA [id number] [address] [place] [address] [place] Bilirubin [Mass/Vol] 1.3 mg/dL High 0.2-1.0 [facility] Comment on above: Order Comment: Speci men Type: BLOOD SPECIMEN Ordering Facility: [facility] Address: [address] [place] [address] Performed By: #### 5 7021-8, 4537-7 #### [facility] CLIA [id number] [address] [place] [address] [place] Calcium [Mass/Vol] 9.4 mg/dL Normal 8.5-10.5 [facility] Comment on above: Order Comment: Speci men Type: BLOOD SPECIMEN Ordering Facility: [facility] Address: [address] [place] [address] Performed By: #### 5 7021-8, 4537-7 #### [facility] CLIA [id number] [address] [place] [address] [place] Chloride [Moles/Vol] 110 mmol/L High 98-107 [facility] Comment on above: Order Comment: Speci men Type: BLOOD SPECIMEN Ordering Facility: [facility] Address: [address] [place] [address] Performed By: #### 5 7021-8, 4537-7 #### [facility] CLIA [id number] [address] [place] [address] [place] CO2 [Moles/Vol] 27 mmol/L Normal 21-32 [facility] Comment on above: Order Comment: Speci men Type: BLOOD SPECIMEN Ordering Facility: [facility] Address: [address] [place] [address] Performed By: #### 5 7021-8, 4537-7 #### [facility] CLIA [id number] [address] [place] [address] [place] Creatinine [Mass/Vol] 0.51 mg/dL Normal 0.51-0.95 [facility] Comment on above: Order Comment: Speci men Type: BLOOD SPECIMEN Ordering Facility: [facility] Address: [address] [place] [address] Result Comment: Osvaldo ents receiving either N-Acetylcysteine (NAC) or Metamizole prior to venipuncture, may have falsely depressed results. Performed By: #### 5 7021-8, 453-7 #### [facility] CLIA [id number] [address] [place] [address] [place] Creatinine and Glomerular filtration rate.predicted panel (S/P/Bld) 135 mL/min/1.73m??? Normal >=60 [facility] Comment on above: Order Comment: Speci chelita Type: BLOOD SPECIMEN Ordering Facility: [facility] Address: [address] [place] [address] Result Comment: Mulu mated Glomerular Filtration Rate [...] Performed By: #### 5 7021-8, 4537-7 #### [facility] CLIA [id number] [address] [place] [address] [place] Glucose [Mass/Vol] 95 mg/dL Normal 70-100 [facility] Comment on above: Order Comment: Janes merlos Type: BLOOD SPECIMEN Ordering Facility: [facility] Address: [address] [place] [address] Result Comment: The [place] Diabetes [employer] (ADA) provides guidance for cutoff [...] Standards of Medical Care in Diabetes 2016, [place] [employer]. Diabetes Care. 2016.39(Suppl 1). Results may be falsely elevated after the administration of Sulfapyridine. Results may be falsely depressed after the administration of Sulfasalazine. Performed By: #### 5 7021-8, 4537-7 #### [facility] CLIA [id number] [address] [place] [address] [place] Potassium [Moles/Vol] 3.6 mmol/L Normal 3.5-5.1 [facility] Comment on above: Order Comment: Janes merlos Type: BLOOD SPECIMEN Ordering Facility: [facility] Address: [address] [place], [place] [address] Performed By: #### 5 7021-8, 4537-7 #### [facility] CLIA [id number] [address] [place] [address] [place] Protein [Mass/Vol] 7.3 g/dL Normal 6.0-8.5 [facility] Comment on above: Order Comment: Janes merlos Type: BLOOD SPECIMEN Ordering Facility: [facility] Address: [address] [place], [place] [address] Performed By: #### 5 7021-8, 4537-7 #### [facility] CLIA [id number] [address] [place] [address] [place] Sodium [Moles/Vol] 145 mmol/L Normal 136-145 [facility] Comment on above: Order Comment: Speci men Type: BLOOD SPECIMEN Ordering Facility: [facility] Address: [address] [place] [address] Performed By: #### 5 7021-8, 4537-7 #### [facility] CLIA [id number] [address] [place], [place] [address] [place] Urea nitrogen [Mass/Vol] 5 mg/dL Low 09-07 [facility] Comment on above: Order Comment: Speci men Type: BLOOD SPECIMEN Ordering Facility: [facility] Address: [address] [place] [address] Performed By: #### 5 7021-8, 4537-7 #### [facility] CLIA [id number] [address] [place], [place] [address] [facility] ECG COMPLETEon 06-09-2023 ECG COMPLETE Ventricular Rate : 1 25 BPM Atrial Rate : 125 BPM P-R Interval : 156 ms QRS Duration : 86 ms Q-T Interval : 326 ms QTC Calculation(Bazett) : 470 ms Calculated P [place] : 44 degrees Calculated R [place] : 26 degrees Calculated T [place] : 10 degrees Sinus tachycardia Nonspecific T wave abnormality Inferior and Septal leads Otherwise normal ECG When compared with ECG of 08-Jun-2023, No significant change was found Confirmed by KEYANA LENNON MD ([id number]) on 06/11/2023 7:04:02 PM NAME : DHAVAL MOON PID : [id number] : 2000 Gender : Female Race : Other ORD : [id number] Procedure Date : Jun 09 2023 06:29:25 Edit Date : Jun 11 2023 19:04:03 Diagnosis: Sinus tachycardia Nonspecific T wave abnormality Inferior and Septal leads Otherwise normal ECG When compared with ECG of 08-Jun-2023, No significant change was found Confirmed by KEYANA LENNON MD ([id number]) on 06/11/2023 7:04:02 PM Test Reason : RT Location : [address] [place] [address] Overread By : KEYANA LENNON MD Edited By : KEYANA LENNON MD Referred By : , Acquired by : JAMES HOLMAN [facility] HIGH SENSITIVITY TROPONIN Io n 06-09-2023 Tropinin I.cardiac panel High sensitivity method 3.0 pg/mL Normal 0.0-34.0 [facility] Comment on above: Order Comment: Janes merlos Type: BLOOD SPECIMEN Ordering Facility: [facility] Address: [address] [place] [address] Result Comment: This assay uses different antibodies than our current assay, and assays, even by the same street flusher driver may recognize different regions of the antibody and cannot be used interchangeably. Expect results of this assay to run higher than the previous assay. Performed By: #### 5 7021-8, 4537-7 #### [facility] CLIA [id number] [address] [place] [address] [place] [facility] Tropinin I.cardiac panel High sensitivity method <2.5 Normal 0.0-34.0 [facility] Comment on above: Order Comment: Janes merlos Type: BLOOD SPECIMEN Ordering Facility: [facility] Address: [address] [place] [address] Result Comment: This assay uses different antibodies than our current assay, and assays, even by the same street flusher driver may recognize different regions of the antibody and cannot be used interchangeably. Expect results of this assay to run higher than the previous assay. Performed By: #### 5 7021-8, 4537-7 #### [facility] CLIA [id number] [address] [place] [address] [place] MEDICAL EMERon 06-09-2023 MEDICAL CHRIS HNO ID: [id number] Author: SUKH CLINTON APRN.[employer]IRPORT CONTROL OPERATOR Service: Hospital Medicine Author Type: Nurse Practitioner Type: Chg in Clinical Condition Filed: 06/09/2023 01:32 Note Text: Patient had reported to the nursing staff that she wishes that she was . She continues to have visual hallucinations and currently attempting to leave A. Capacity hold placed due to delirium and depression. Consult placed to psychiatry. Normal [facility] Magnesium SerPl-mCncon 06-08 Magnesium [Mass/Vol] 2.2 mg/dL Normal 1.6-2.6 [facility] Comment on above: Order Comment: Speci men Type: BLOOD SPECIMEN Ordering Facility: [facility] Address: [address] [place] [address] Performed By: #### 5 7021-8, 4537-7 #### [facility] CLIA [id number] [address] [place] [address] [place] NURSING PROGon 06-09-2023 NURSING PROG HNO ID: [id number] Author: ELIZABETH PRESCOTT RN Service: Nursing Author Type: Registered Nurse Type: Nursing Progress Note Filed: 06/09/2023 18:04 Note Text: Patient continues to experience auditory and visual hallucinations. Pt stated that there is a man behind her hospital curtain and in her patient bathroom. This nurse showed the patient that there was not anyone in there. Patient redirected. This nurse and patient awning craftsperson offered patient to turn on her TV or listen to music. Patient refused. Patient continues to listen for noises in the hallway and state that people are talking about her and that there is a Mr. Walters that is coming to see her from the hallway. Patient redirected. Normal [facility] NUTRITIONon 06-09-2023 NUTRITION HNO ID: [id number] Author: YVETTE CHAWLA RD Service: ? Author [...] self-report, Food/nutrition related history Estimated kilocalorie needs: 0393-3168 Calorie Calculation Method: Perry-St. Jeor (with activity factor) (1.1-1.3) Estimated protein needs (grams): 120-140 Grams protein determined by: [place] body weight (2.5-3.0) Care Plan: Continue current [...] June 09, 2023 TIME: 11:00 AM Normal [facility] TOXICOLOGY SCREEN, ROUTINE U RINEon 06-09-2023 Amphetamines Confirm (U) [Mass/Vol] Positive Abnormal Negative [facility] Comment on above: Order Comment: Speci men Type: BLOOD SPECIMEN Ordering Facility: [facility] Address: [address] [place] [address] Result Comment: Cuto ff threshold at 1000 ng/mL. Performed By: #### 5 7021-8, 4537-7 #### [facility] CLIA [id number] [address] [place] [address] [place] BARBITURATES, URINE Positive Abnormal Negative [facility] Comment on above: Order Comment: Speci men Type: BLOOD SPECIMEN Ordering Facility: [facility] Address: [address] [place] [address] Result Comment: Cuto ff threshold at 200 ng/mL. Performed By: #### 5 7021-8, 4537-7 #### [facility] CLIA [id number] [address] [place] [address] [place] BENZODIAZEPINES, UR Negative Normal Negative [facility] Comment on above: Order Comment: Speci men Type: BLOOD SPECIMEN Ordering Facility: [facility] Address: [address] [place] [address] Result Comment: Cuto ff threshold at 200 ng/mL. Performed By: #### 5 7021-8, 4537-7 #### [facility] CLIA [id number] [address] [place] [address] [place] Cannabinoids Screen Ql (U) Negative Normal Negative [facility] Comment on above: Order Comment: Speci men Type: BLOOD SPECIMEN Ordering Facility: [facility] Address: [address] [place] [address] Result Comment: Cuto ff threshold at 50 ng/mL. Performed By: #### 5 7021-8, 4537-7 #### [facility] CLIA [id number] [address] [place] [address] [place] Cocaine Ql (U) Positive Abnormal Negative [facility] Comment on above: Order Comment: Speci men Type: BLOOD SPECIMEN Ordering Facility: [facility] Address: [address] [place] [address] Result Comment: Cuto ff threshold at 300 ng/mL. Performed By: #### 5 7021-8, 4537-7 #### [facility] CLIA [id number] [address] [place] [address] [place] Opiates Screen Ql (U) Negative Normal Negative [facility] Comment on above: Order Comment: Speci men Type: BLOOD SPECIMEN Ordering Facility: [facility] Address: [address] [place] [address] Result Comment: Cuto ff threshold at 300 ng/mL. Performed By: #### 5 7021-8, 4537-7 #### [facility] CLIA [id number] [address] [place] [address] [place] Phencyclidine Ql (U) Negative Normal Negative [facility] Comment on above: Order Comment: Speci men Type: BLOOD SPECIMEN Ordering Facility: [facility] Address: [address] [place] [address] Result Comment: Cuto ff threshold at 25 ng/mL. Performed By: #### 5 7021-8, 4537-7 #### [facility] CLIA [id number] [address] [place] [address] [place] Basic metabolic 2000 panelon 06-08-2023 Anion gap [Moles/Vol] 10 mmol/L Normal 5-16 [facility] Comment on above: Order Comment: Speci men Type: BLOOD SPECIMENOrdering Facility: [facility] Address: [address] [place] [address] Performed By: #### Rishi ESPINOZA, 55000-8, 5643-2 ####[facility]ATORYCLIA [id number] [place] [address] [place] Calcium [Mass/Vol] 10.2 mg/dL Normal 8.5-10.5 [facility] Comment on above: Order Comment: Speci men Type: BLOOD SPECIMENOrdering Facility: [facility] Address: [address] [place] [address] Performed By: #### Rishi ESPINOZA, 44837-8, 5643-2 ####[facility]ORYCLIA [id number] [place] [address] [place] Chloride [Moles/Vol] 108 mmol/L High 98-107 [facility] Comment on above: Order Comment: Speci men Type: BLOOD SPECIMENOrdering Facility: [facility] Address: [address] [place] [address] Performed By: #### Rishi ESPINOZA, 97110-1, 5643-2 ####[facility]ORYCLIA [id number] [place] [address] [place] CO2 [Moles/Vol] 25 mmol/L Normal 21-32 [facility] Comment on above: Order Comment: Speci men Type: BLOOD SPECIMENOrdering Facility: [facility] Address: [address] [place] [address] Performed By: #### H ALEXIS, 75712-0, 5643-2 ####[facility]ORYCLIA [id number] [place] [address] [place] Creatinine [Mass/Vol] 0.50 mg/dL Low 0.51-0.95 [facility] Comment on above: Order Comment: Speci men Type: BLOOD SPECIMENOrdering Facility: [facility] Address: [address] [place] [address] Result Comment: Osvaldo ents receiving either N-Acetylcysteine (NAC) or Metamizole prior to venipuncture, may have falsely depressed results. Performed By: #### H ALEXIS, 55073-3, 5643-2 ####[facility]ORYCLIA [id number] [address] STATES OF [facility] Creatinine and Glomerular filtration rate.predicted panel (S/P/Bld) 135 mL/min/1.73m??? Normal >=60 [facility] Comment on above: Order Comment: Speci men Type: BLOOD SPECIMENOrdering Facility: [facility] Address: [address] [place] [address] Result Comment: Mulu mated Glomerular Filtration Rate [...] reflect actual GFR. Performed By: #### H ALEXIS, 16455-6, 5643-2 ####[facility]ORYCLIA [id number] [place] [id number] [place] Glucose [Mass/Vol] 101 mg/dL High 70-100 [facility] Comment on above: Order Comment: Speci men Type: BLOOD SPECIMENOrdering Facility: [facility] Address: [address] [place], [place] [address] Result Comment: The [place] Diabetes [employer] (ADA) provides guidance for cutoff [...] Standards of Medical Care in Diabetes 2016, [place] [employer]. Diabetes Care. 2016.39(Suppl 1). Results may be falsely elevated after the administration of Sulfapyridine. Results may be falsely depressed after the administration of Sulfasalazine. Performed By: #### H ALEXIS, 50475-1, 5643-2 ####[facility]ORYCLIA [id number] [place] [address] [place] Potassium [Moles/Vol] 3.2 mmol/L Low 3.5-5.1 [facility] Comment on above: Order Comment: Janes merlos Type: BLOOD SPECIMENOrdering Facility: [facility] Address: [address] [place] [address] Performed By: #### H ALEXIS, 60862-1, 5643-2 ####[facility]ORYCLIA [id number] [place] [address] [place] Sodium [Moles/Vol] 143 mmol/L Normal 136-145 [facility] Comment on above: Order Comment: Janes merlos Type: BLOOD SPECIMENOrdering Facility: [facility] Address: [address] [place] [address] Performed By: #### H ALEXIS, 30832-8, 5643-2 ####[facility]ORYCLIA [id number] [place] [address] [place] Urea nitrogen [Mass/Vol] mg/dL Low 7-26 [facility] Comment on above: Order Comment: Speci men Type: BLOOD SPECIMENOrdering Facility: [facility] Address: [address] [place] [address] Performed By: #### H CG, 41545-7, 5643-2 ####[facility]ORYCLIA [id number] [place] [address] [place] CBC W Auto Differential pane l (Bld)on 06-08-2023 Basophils (Bld) [#/Vol] 0.04 10*3/uL Normal <0.11 [facility] Comment on above: Order Comment: Speci men Type: BLOOD SPECIMENOrdering Facility: [facility] Address: [address] [place] [address] Performed By: #### 5 7021-8 ####[facility]ORYCLIA [id number] [place] [address] [place] Basophils/100 WBC (Bld) 0.4 % Normal [facility] Comment on above: Order Comment: Speci men Type: BLOOD SPECIMENOrdering Facility: [facility] Address: [address] [place] [address] Performed By: #### 5 7021-8 ####[facility]ORYCLIA [id number] [address] [place] Differential cell count method Nom (Bld) Auto Normal [facility] Comment on above: Order Comment: Speci men Type: BLOOD SPECIMENOrdering Facility: [facility] Address: [address] [place] [address] Performed By: #### 5 7021-8 ####[facility]ORYCLIA [id number] [place] [address] [place] Eosinophils (Bld) [#/Vol] 0.15 10*3/uL Normal <0.46 [facility] Comment on above: Order Comment: Speci men Type: BLOOD SPECIMENOrdering Facility: [facility] Address: [address] [place] [address] Performed By: #### 5 7021-8 ####[facility]ORYCLIA [id number] [place] [address] [place] Eosinophils/100 WBC (Bld) 1.6 % Normal [facility] Comment on above: Order Comment: Speci men Type: BLOOD SPECIMENOrdering Facility: [facility] Address: [address] [place] [address] Performed By: #### 5 7021-8 ####[facility]ATORYCLIA [id number] [place] [address] [place] Erythrocyte distribution width (RBC) [Ratio] 13.2 % Normal 11.5-15.0 [facility] Comment on above: Order Comment: Speci men Type: BLOOD SPECIMENOrdering Facility: [facility] Address: [address] [place] [address] Performed By: #### 5 7021-8 ####[facility]ATORYCLIA [id number] [address] [place] Hematocrit (Bld) [Volume fraction] 47.6 % High 36.0-46.0 [facility] Comment on above: Order Comment: Speci men Type: BLOOD SPECIMENOrdering Facility: [facility] Address: [address] [place] [address] Performed By: #### 5 7021-8 ####[facility]ORYCLIA [id number] [place] [address] [place] Hemoglobin (Bld) [Mass/Vol] 16.3 g/dL High 11.5-15.5 [facility] Comment on above: Order Comment: Speci men Type: BLOOD SPECIMENOrdering Facility: [facility] Address: [address] [place] [address] Performed By: #### 5 7021-8 ####[facility]ORYCLIA [id number] [place] [address] [place] Immature granulocytes (Bld) [#/Vol] 10*3/uL Normal <0.10 [facility] Comment on above: Order Comment: Speci men Type: BLOOD SPECIMENOrdering Facility: [facility] Address: [address] [place] [address] Performed By: #### 5 7021-8 ####[facility]ORYCLIA [id number] [place] [id number] [place] Immature granulocytes/100 WBC (Bld) 0.1 % Normal [facility] Comment on above: Order Comment: Speci men Type: BLOOD SPECIMENOrdering Facility: [facility] Address: [address] [place] [address] Performed By: #### 5 7021-8 ####[facility]ORYCLIA [id number] [place] [address] [place] Lymphocytes (Bld) [#/Vol] 2.22 10*3/uL Normal 1.00-4.0 0 [facility] Comment on above: Order Comment: Speci men Type: BLOOD SPECIMENOrdering Facility: [facility] Address: [address] [place] [address] Performed By: #### 5 7021-8 ####[facility]ORYCLIA [id number] [address] [place] Lymphocytes/100 WBC (Bld) 23.8 % Normal [facility] Comment on above: Order Comment: Speci men Type: BLOOD SPECIMENOrdering Facility: [facility] Address: [address] [place] [address] Performed By: #### 5 7021-8 ####[facility]ORYCLIA [id number] [place] [address] [place] MCH (RBC) [Entitic mass] 32.8 pg Normal 26.0-34.0 [facility] Comment on above: Order Comment: Speci men Type: BLOOD SPECIMENOrdering Facility: [facility] Address: [address] [place] [address] Performed By: #### 5 7021-8 ####[facility]ORYCLIA [id number] [address] [place] MCHC (RBC) [Mass/Vol] 34.2 g/dL Normal 30.5-36.0 [facility] Comment on above: Order Comment: Speci men Type: BLOOD SPECIMENOrdering Facility: [facility] Address: [address] [place] [address] Performed By: #### 5 7021-8 ####[facility]ATORYCLIA [id number] [place] [id number] [place] MCV (RBC) [Entitic vol] 95.8 fL Normal 80.0-100.0 [facility] Comment on above: Order Comment: Speci men Type: BLOOD SPECIMENOrdering Facility: [facility] Address: [address] [place] [address] Performed By: #### 5 7021-8 ####[facility]ATORYCLIA [id number] [place] [address] [place] Monocytes (Bld) [#/Vol] 0.63 10*3/uL Normal <0.87 [facility] Comment on above: Order Comment: Speci men Type: BLOOD SPECIMENOrdering Facility: [facility] Address: [address] [place] [address] Performed By: #### 5 7021-8 ####[facility]ORYCLIA [id number] [place] [address] [place] Monocytes/100 WBC (Bld) 6.7 % Normal [facility] Comment on above: Order Comment: Speci men Type: BLOOD SPECIMENOrdering Facility: [facility] Address: [address] [place] [address] Performed By: #### 5 7021-8 ####[facility]ATORYCLIA [id number] [place] [address] [place] Neutrophils (Bld) [#/Vol] 6.29 10*3/uL Normal 1.45-7.5 0 [facility] Comment on above: Order Comment: Speci men Type: BLOOD SPECIMENOrdering Facility: [facility] Address: [address] [place] [address] Performed By: #### 5 7021-8 ####[facility]ATORYCLIA [id number] [place] [address] [place] Neutrophils/100 WBC (Bld) 67.4 % Normal [facility] Comment on above: Order Comment: Speci men Type: BLOOD SPECIMENOrdering Facility: [facility] Address: [address] [place] [address] Performed By: #### 5 7021-8 ####[facility]ORYCLIA [id number] [place] [address] [place] Nucleated RBC (Bld) [#/Vol] 10*3/uL Normal <0.01 [facility] Comment on above: Order Comment: Speci men Type: BLOOD SPECIMENOrdering Facility: [facility] Address: [address] [place] [address] Performed By: #### 5 7021-8 ####[facility]ATORYCLIA [id number] [place] [address] [place] Nucleated RBC/100 WBC (Bld) [Ratio] 0.0 /100 WBC Normal [facility] Comment on above: Order Comment: Speci men Type: BLOOD SPECIMENOrdering Facility: [facility] Address: [address] [place] [address] Performed By: #### 5 7021-8 ####[facility]ATORYCLIA [id number] [place] [address] [place] Platelet mean volume (Bld) [Entitic vol] 10.5 fL Normal 9.0-12.7 [facility] Comment on above: Order Comment: Speci men Type: BLOOD SPECIMENOrdering Facility: [facility] Address: [address] [place] [address] Performed By: #### 5 7021-8 ####[facility]ATORYCLIA [id number] [place] [address] [place] Platelets (Bld) [#/Vol] 322 10*3/uL Normal 150-400 [facility] Comment on above: Order Comment: Speci men Type: BLOOD SPECIMENOrdering Facility: [facility] Address: [address] [place] [address] Performed By: #### 5 7021-8 ####[facility]ATORYCLIA [id number] [place] [id number] [facility] [place] RBC (Bld) [#/Vol] 4.97 10*6/uL Normal 3.90-5.20 [facility] Comment on above: Order Comment: Speci men Type: BLOOD SPECIMENOrdering Facility: [facility] Address: [address] [place] [address] Performed By: #### 5 7021-8 ####[facility]ATORYCLIA [id number] [place] [id number] [facility] WBC (Bld) [#/Vol] 9.34 10*3/uL Normal 3.70-11.00 [facility] Comment on above: Order Comment: Speci men Type: BLOOD SPECIMENOrdering Facility: [facility] Address: [address] [address] Performed By: #### 5 7021-8 ####[facility]ATORYCLIA [id number] [place] [id number] [facility] ECG COMPLETEon 06-08-2023 ECG COMPLETE Ventricular Rate : 1 29 BPM Atrial Rate : 129 BPM P-R Interval : 88 ms QRS Duration : 80 ms Q-T Interval : 370 ms QTC Calculation(Bazett) : 543 ms Calculated P [place] : 50 degrees Calculated R [place] : 56 degrees Calculated T [place] : 44 degrees Sinus tachycardia with short VT Otherwise normal ECG No previous ECGs available Confirmed by JAYESH OVALLE MD ([id number]) on 06/10/2023 10:19:29 AM NAME : DHAVAL MOON PID : [id number] : 2000 Gender : Female Race : Other ORD : [id number] Procedure Date : Jun 08 2023 17:54:26 Edit Date : Jun 10 2023 10:19:30 Diagnosis: Sinus tachycardia with short VT Otherwise normal ECG No previous ECGs available Confirmed by JAYESH OVALLE MD ([id number]) on 06/10/2023 10:19:29 AM Test Reason : STAT Location : 0 : ED D Overread By : JAYESH OVALLE MD Edited By : JAYESH OVALLE MD Referred By : , Acquired by : , [facility] ED NOTEon 06-08-2023 ED NOTE HNO ID: [id number] Author: EDIE DAVE RN Service: ? Author Type: Registered Nurse Type: ED Notes Filed: 06/08/2023 21:25 Note Text: Ready to go up [facility] ED PROV NOTEon 06-08-2023 ED PROV NOTE HNO ID: [id number] Author: RICO VALENTE DO Service: ? Author [...] severe anxiety iss (more content not included)... [facility] ED Triage Noteon 06-08-2023 ED Triage Note HNO ID: [id number] Author: EASTON LEAL PA-C Service: Emergency Medicine Author Type: Physician Mechanical Adjuster Type: ED Triage Notes Filed: 06/08/2023 18:05 [...] iv flush bag SIGNATURE: Easton Leal PA-C [facility] Ethanol SerPl-mCncon 024 Ethanol [Mass/Vol] mg/dL Normal <0.010 [facility] Comment on above: Order Comment: Speci men Type: BLOOD SPECIMENOrdering Facility: [facility] Address: [address] [place] [address] Performed By: #### H CG, 60508-4, 5643-2 ####[facility]ORATORYCLIA [id number] [address] HCG QUALITATIVEon 06-08-2023 HCG, QUALITATIVE Negative Normal Negative [facility] Comment on above: Order Comment: Speci men Type: BLOOD SPECIMENOrdering Facility: [facility] Address: [address] [place] [address] Performed By: #### H CG, 63146-4, 5643-2 ####[facility]ATORYCLIA [id number] [address] HIGH SENSITIVITY TROPONIN Io n 06-08-2023 Tropinin I.cardiac panel High sensitivity method <2.5 Normal 0.0-34.0 [facility] Comment on above: Order Comment: Speci men Type: BLOOD SPECIMENOrdering Facility: [facility] Address: [address] [place] [address] Result Comment: This assay uses different antibodies than our current assay, and assays, even by the same street flusher driver may recognize different regions of the antibody and cannot be used interchangeably. Expect results of this assay to run higher than the previous assay. Performed By: #### H STROP ####[facility]ORATORYCLIA [id number] [address] OF [facility] HISTORY PHYSICALon HISTORY PHYSICAL HNO ID: [id number] Author: EASTON OLIVARES DO Service: Hospital Medicine [...] presents with alcohol withdrawal symptoms. Continue following [facility] protocol and use scheduled phenobarbital to control symptoms. Signature: Easton Olivares DO Date: 06/08/2023 Time: 11:20 PM HISTORY AND PHYSICAL EXAMINATION SERVICE DATE: 06/08/2023 SERVICE TIME: 9:28 PM PRIMARY CARE PHYSICIAN: Vanessa Booth MD SUBJECTIVE: CHIEF COMPLAINT: Anxiety HPI: [...] Neurological: Men (more content not included)... Normal [facility] Hepatic function 2000 panelo n 06-08-2023 Albumin [Mass/Vol] 3.7 g/dL Normal 3.2-5.0 [facility] Comment on above: Order Comment: Speci chelita Type: BLOOD SPECIMENOrdering Facility: [facility] Address: [address] [place] [address] Performed By: #### 2 4325-3, 3040-3, 58761-0 ####[facility]ORATORYCLIA [id number] [place] [id number] [place] ALP [Catalytic activity/Vol] 98 U/L Normal 45-117 [facility] Comment on above: Order Comment: Juliannei chelita Type: BLOOD SPECIMENOrdering Facility: [facility] Address: [address] [place] [address] Performed By: #### 2 4325-3, 3040-3, ####[facility]ORATORYCLIA [id number] [place] [id number] [place] ALT [Catalytic activity/Vol] 35 U/L Normal 13-61 [facility] Comment on above: Order Comment: Janes merlos Type: BLOOD SPECIMENOrdering Facility: [facility] Address: [address] [place] [address] Result Comment: Resu lts may be falsely depressed after the administration of Sulfasalazine and/or Sulfapyridine. Performed By: #### 2 4325-3, 3040-3, 42129-0 ####[facility]ORATORYCLIA [id number] [place] [id number] [place] AST [Catalytic activity/Vol] 41 U/L High 8-34 [facility] Comment on above: Order Comment: Juliannei chelita Type: BLOOD SPECIMENOrdering Facility: [facility] Address: [address] [place] [address] Result Comment: Resu lts may be falsely depressed after the administration of Sulfasalazine and/or Sulfapyridine. Performed By: #### 2 4325-3, 3040-3, ####[facility]ORATORYCLIA [id number] [place] [id number] [place] Bilirubin [Mass/Vol] 1.1 mg/dL High 0.2-1.0 [facility] Comment on above: Order Comment: Speci men Type: BLOOD SPECIMENOrdering Facility: [facility] Address: [address] [place] [address] Performed By: #### 2 4325-3, 3040-3, ####[facility] LABORATORYCLIA [id number] [place] [id number] [place] Bilirubin.conjugated [Mass/Vol] 0.5 mg/dL High 0.0-0.4 [facility] Comment on above: Order Comment: Speci men Type: BLOOD SPECIMENOrdering Facility: [facility] Address: [address] [place] [address] Performed By: #### 2 4325-3, 3040-3, ####[facility]ATORYCLIA [id number] [place] [id number] [place] Protein [Mass/Vol] 8.0 g/dL Normal 6.0-8.5 [facility] Comment on above: Order Comment: Speci men Type: BLOOD SPECIMENOrdering Facility: [facility] Address: [address] [place] [address] Performed By: #### 2 4325-3, 3040-3, ####[facility]ATORYCLIA [id number] [place] [id number] [place] Lipase SerPl-cCncon 06-08-19 24 Lipase [Catalytic activity/Vol] 22 U/L Normal 12-60 [facility] Comment on above: Order Comment: Speci men Type: BLOOD SPECIMENOrdering Facility: [facility] Address: [address] [place] [address] Performed By: #### 2 4325-3, 3040-3, ####[facility]ORATORYCLIA [id number] [address] OF [facility] Magnesium SerPl-mCncon 06-07 Magnesium [Mass/Vol] 1.5 mg/dL Low 1.6-2.6 [facility] Comment on above: Order Comment: Speci men Type: BLOOD SPECIMENOrdering Facility: [facility] Address: [address] [place] [address] Performed By: #### 2 4325-3, 3039-3, ####[facility]ORATORYCLIA [id number] [place] [id number] [facility] ED NOTEon 04-21-2023 ED NOTE HNO ID: [id number] Author: MARISOL GRIFFITH LPN Service: ? Author Type: LICENSED NURSE Type: ED Notes Filed: 04/21/2023 19:21 Note Text: Pt called x2, no answer, LWBS after triage. Normal [facility] CBC W Auto Differential pane l (Bld)on 04-11-2023 Basophils (Bld) [#/Vol] 0.04 10*3/uL Normal <0.11 [facility] Comment on above: Order Comment: Speci men Type: BLOOD SPECIMEN Ordering Facility: [facility] Address: [address] [place] [address] Performed By: #### 5 7021-8, 4537-7 #### [facility] CLIA [id number] [address] [place] [address] OF [facility] Basophils/100 WBC (Bld) 0.3 % Normal [facility] Comment on above: Order Comment: Speci men Type: BLOOD SPECIMEN Ordering Facility: [facility] Address: [address] [place] [address] Performed By: #### 5 7021-8, 4537-7 #### [facility] CLIA [id number] [address] [place] [address] STATES OF [facility] Differential cell count method Nom (Bld) Auto Normal [facility] Comment on above: Order Comment: Speci men Type: BLOOD SPECIMEN Ordering Facility: [facility] Address: [address] [place] [address] Performed By: #### 5 7021-8, 4537-7 #### [facility] CLIA [id number] [address] [place] [address] [place] Eosinophils (Bld) [#/Vol] 0.19 10*3/uL Normal <0.46 [facility] Comment on above: Order Comment: Speci men Type: BLOOD SPECIMEN Ordering Facility: [facility] Address: [address] [place] [address] Performed By: #### 5 7021-8, 4536-7 #### [facility] CLIA [id number] [address] [place] [address] [place] Eosinophils/100 WBC (Bld) 1.5 % Normal [facility] Comment on above: Order Comment: Speci men Type: BLOOD SPECIMEN Ordering Facility: [facility] Address: [address] [place] [address] Performed By: #### 5 7021-8, 4536-7 #### [facility] CLIA [id number] [address] [place] [address] [place] Erythrocyte distribution width (RBC) [Ratio] 13.1 % Normal 11.5-15.0 [facility] Comment on above: Order Comment: Speci men Type: BLOOD SPECIMEN Ordering Facility: [facility] Address: [address] [place] [address] Performed By: #### 5 7021-8, 4536-7 #### [facility] CLIA [id number] [address] [place] [address] [place] Hematocrit (Bld) [Volume fraction] 43.1 % Normal 36.0-46.0 [facility] Comment on above: Order Comment: Speci men Type: BLOOD SPECIMEN Ordering Facility: [facility] Address: [address] [place] [address] Performed By: #### 5 7021-8, 4537-7 #### [facility] CLIA [id number] [address] [place] [address] [place] Hemoglobin (Bld) [Mass/Vol] 14.9 g/dL Normal 11.5-15.5 [facility] Comment on above: Order Comment: Speci men Type: BLOOD SPECIMEN Ordering Facility: [facility] Address: [address] [place] [address] Performed By: #### 5 7021-8, 4537-7 #### [facility] CLIA [id number] [address] [place] [address] [place] Immature granulocytes (Bld) [#/Vol] 0.06 10*3/uL Normal <0.10 [facility] Comment on above: Order Comment: Speci men Type: BLOOD SPECIMEN Ordering Facility: [facility] Address: [address] [place] [address] Performed By: #### 5 7021-8, 4537-7 #### [facility] CLIA [id number] [address] [place] [address] [place] Immature granulocytes/100 WBC (Bld) 0.5 % Normal [facility] Comment on above: Order Comment: Speci men Type: BLOOD SPECIMEN Ordering Facility: [facility] Address: [address] [place] [address] Performed By: #### 5 7021-8, 4537-7 #### [facility] CLIA [id number] [address] [place] [address] [place] Lymphocytes (Bld) [#/Vol] 1.66 10*3/uL Normal 1.00-4.0 0 [facility] Comment on above: Order Comment: Speci men Type: BLOOD SPECIMEN Ordering Facility: [facility] Address: [address] [place] [address] Performed By: #### 5 7021-8, 4537-7 #### [facility] CLIA [id number] [address] [place] [address] [place] Lymphocytes/100 WBC (Bld) 13.1 % Normal [facility] Comment on above: Order Comment: Speci men Type: BLOOD SPECIMEN Ordering Facility: [facility] Address: [address] [place] [address] Performed By: #### 5 7021-8, 453-7 #### [facility] CLIA [id number] [address] [place] [address] STATES OF [facility] MCH (RBC) [Entitic mass] 34.4 pg High 26.0-34.0 [facility] Comment on above: Order Comment: Speci men Type: BLOOD SPECIMEN Ordering Facility: [facility] Address: [address] [place] [address] Performed By: #### 5 7021-8, 453-7 #### [facility] CLIA [id number] [address] [place] [address] [place] MCHC (RBC) [Mass/Vol] 34.6 g/dL Normal 30.5-36.0 [facility] Comment on above: Order Comment: Speci men Type: BLOOD SPECIMEN Ordering Facility: [facility] Address: [address] [place] [address] Performed By: #### 5 7021-8, 453-7 #### [facility] CLIA [id number] [address] [place] [address] [place] MCV (RBC) [Entitic vol] 99.5 fL Normal 80.0-100.[address] [facility] Comment on above: Order Comment: Speci men Type: BLOOD SPECIMEN Ordering Facility: [facility] Address: [address] [place] [address] Performed By: #### 5 7021-8, 4536-7 #### [facility] CLIA [id number] [address] [place] [address] [place] Monocytes (Bld) [#/Vol] 1.03 10*3/uL High <0.87 [facility] Comment on above: Order Comment: Speci men Type: BLOOD SPECIMEN Ordering Facility: [facility] Address: [address] [place] [address] Performed By: #### 5 7021-8, 4537-7 #### [facility] CLIA [id number] [address] [place] [address] [place] Monocytes/100 WBC (Bld) 8.1 % Normal [facility] Comment on above: Order Comment: Speci men Type: BLOOD SPECIMEN Ordering Facility: [facility] Address: [address] [place] [address] Performed By: #### 5 7021-8, 453-7 #### [facility] CLIA [id number] [address] [place], [place] [address] [place] Neutrophils (Bld) [#/Vol] 9.68 10*3/uL High 1.45-7.5 0 [facility] Comment on above: Order Comment: Speci men Type: BLOOD SPECIMEN Ordering Facility: [facility] Address: [address] [place] [address] Performed By: #### 5 7021-8, 453-7 #### [facility] CLIA [id number] [address] [place] [address] [place] Neutrophils/100 WBC (Bld) 76.5 % Normal [facility] Comment on above: Order Comment: Speci men Type: BLOOD SPECIMEN Ordering Facility: [facility] Address: [address] [place] [address] Performed By: #### 5 7021-8, 4536-7 #### [facility] CLIA [id number] [address] [place], [place] [address] [place] Nucleated RBC (Bld) [#/Vol] 10*3/uL Normal <0.01 [facility] Comment on above: Order Comment: Speci men Type: BLOOD SPECIMEN Ordering Facility: [facility] Address: [address] [place] [address] Performed By: #### 5 7021-8, 4537-7 #### [facility] CLIA [id number] [address] [place] [address] [place] Nucleated RBC/100 WBC (Bld) [Ratio] 0.0 /100 WBC Normal [facility] Comment on above: Order Comment: Speci men Type: BLOOD SPECIMEN Ordering Facility: [facility] Address: [address] [place] [address] Performed By: #### 5 7021-8, 4537-7 #### [facility] CLIA [id number] [address] [place] [address] [place] Platelet mean volume (Bld) [Entitic vol] 11.4 fL Normal 9.0-12.7 [facility] Comment on above: Order Comment: Speci men Type: BLOOD SPECIMEN Ordering Facility: [facility] Address: [address] [place], [place] [address] Performed By: #### 5 7021-8, 4537-7 #### [facility] CLIA [id number] [address] [place] [address] [place] Platelets (Bld) [#/Vol] 353 10*3/uL Normal 150-400 [facility] Comment on above: Order Comment: Speci men Type: BLOOD SPECIMEN Ordering Facility: [facility] Address: [address] [place] [address] Performed By: #### 5 7021-8, 4537-7 #### [facility] CLIA [id number] [address] [place] [address] [place] RBC (Bld) [#/Vol] 4.33 10*6/uL Normal 3.90-5.20 [facility] Comment on above: Order Comment: Speci men Type: BLOOD SPECIMEN Ordering Facility: [facility] Address: [address] [place] [address] Performed By: #### 5 7021-8, 4537-7 #### [facility] CLIA [id number] [address] [place] [address] [place] WBC (Bld) [#/Vol] 12.66 10*3/uL High 3.70-11.00 [facility] Comment on above: Order Comment: Speci men Type: BLOOD SPECIMEN Ordering Facility: [facility] Address: [address] [place] [address] Performed By: #### 5 7021-8, 4537-7 #### [facility] CLIA [id number] [address] [place], [place] [address] [facility] [place] CRP SerPl-mCncon 04-11-2023 CRP [Mass/Vol] 3.5 mg/dL High <1.0 [facility] Comment on above: Order Comment: Speci men Type: BLOOD SPECIMENOrdering Facility: [facility] Address: [address] [place] [address] Performed By: #### 2 4323-8, 5643-2, HCG, 1987-06 ####[facility]ORYCLIA [id number] [address] OF [facility] Comprehensive metabolic 2000 panelon 04-11-2023 Albumin [Mass/Vol] 3.6 g/dL Normal 3.2-5.0 [facility] Comment on above: Order Comment: Speci men Type: BLOOD SPECIMEN Ordering Facility: [facility] Address: [address] [place] [address] Performed By: #### 2 4323-8, 5643-2, HCG, 1987-06 #### [facility] CLIA [id number] [address] [place] [address] [place] ALP [Catalytic activity/Vol] 100 U/L Normal 45-117 [facility] Comment on above: Order Comment: Speci men Type: BLOOD SPECIMEN Ordering Facility: [facility] Address: [address] [place] [address] Performed By: #### 2 4323-8, 5643-2, HCG, 1987-06 #### [facility] CLIA [id number] [address] [place], [place] [address] [place] ALT [Catalytic activity/Vol] 37 U/L Normal 13-61 [facility] Comment on above: Order Comment: Speci men Type: BLOOD SPECIMEN Ordering Facility: [facility] Address: [address] [place] [address] Result Comment: Resu lts may be falsely depressed after the administration of Sulfasalazine and/or Sulfapyridine. Performed By: #### 2 4323-8, 5643-2, HCG, 1987-06 #### [facility] CLIA [id number] [address] [place], [place] [address] [place] Anion gap [Moles/Vol] 14 mmol/L Normal 5-16 [facility] Comment on above: Order Comment: Speci men Type: BLOOD SPECIMEN Ordering Facility: [facility] Address: [address] [place] [address] Performed By: #### 2 432-8, 5643-2, HCG, 1987-06 #### [facility] CLIA [id number] [address] [place], [place] [address] [place] AST [Catalytic activity/Vol] 59 U/L High 8-34 [facility] Comment on above: Order Comment: Speci men Type: BLOOD SPECIMEN Ordering Facility: [facility] Address: [address] [place] [address] Result Comment: Resu lts may be falsely depressed after the administration of Sulfasalazine and/or Sulfapyridine. Performed By: #### 2 432-8, 5643-2, HCG, 1987-06 #### [facility] CLIA [id number] [address] [place], [place] [address] [place] Bilirubin [Mass/Vol] 2.2 mg/dL High 0.2-1.0 [facility] Comment on above: Order Comment: Speci men Type: BLOOD SPECIMEN Ordering Facility: [facility] Address: [address] [place] [address] Performed By: #### 2 432-8, 5643-2, HCG, 1987-06 #### [facility] CLIA [id number] [address] [place], [place] [address] [place] Calcium [Mass/Vol] 10.1 mg/dL Normal 8.5-10.5 [facility] Comment on above: Order Comment: Speci men Type: BLOOD SPECIMEN Ordering Facility: [facility] Address: [address] [place] [address] Performed By: #### 2 43238, 5643-2, HCG, 1987-06 #### [facility] CLIA [id number] [address] [place] [address] [place] Chloride [Moles/Vol] 102 mmol/L Normal 98-107 [facility] Comment on above: Order Comment: Speci men Type: BLOOD SPECIMEN Ordering Facility: [facility] Address: [address] [place] [address] Performed By: #### 2 4328, 2, [facility], 1987-06 #### [facility] CLIA [id number] [address] [place], [place] [address] [place] CO2 [Moles/Vol] 23 mmol/L Normal 21-32 [facility] Comment on above: Order Comment: Speci men Type: BLOOD SPECIMEN Ordering Facility: [facility] Address: [address] [place] [address] Performed By: #### 2 8, 5642-03, [facility], 1987-06 #### [facility] CLIA [id number] [address] [place] [address] [place] Creatinine [Mass/Vol] 0.38 mg/dL Low 0.51-0.95 [facility] Comment on above: Order Comment: Speci men Type: BLOOD SPECIMEN Ordering Facility: [facility] Address: [address] [place] [address] Result Comment: Osvaldo ents receiving either N-Acetylcysteine (NAC) or Metamizole prior to venipuncture, may have falsely depressed results. Performed By: #### 2 432-8, 2, [facility], 1987-06 #### [facility] CLIA [id number] [address] [place], [place] [address] [place] Creatinine and Glomerular filtration rate.predicted panel (S/P/Bld) 145 mL/min/1.73m??? Normal >=60 [facility] Comment on above: Order Comment: Speci men Type: BLOOD SPECIMEN Ordering Facility: [facility] Address: [address] [place] [address] Result Comment: Mulu mated Glomerular Filtration Rate [...] GFR. Performed By: #### 2 4323-8, 5643-2, [facility], 1987-06 #### [facility] CLIA [id number] [address] [place], [place] [address] [place] Glucose [Mass/Vol] 81 mg/dL Normal 70-100 [facility] Comment on above: Order Comment: Janes merlos Type: BLOOD SPECIMEN Ordering Facility: [facility] Address: [address] [place] [address] Result Comment: The [place] [employer] (ADA) provides guidance for cutoff [...] Standards of Medical Care in Diabetes 2016, [place] [employer]. Diabetes Care. 2016.39(Suppl 1). Results may be falsely elevated after the administration of Sulfapyridine. Results may be falsely depressed after the administration of Sulfasalazine. Performed By: #### 2 4323-8, 5643-2, HCG, 1987-06 #### [facility] CLIA [id number] [address] [place], [place] [address] [place] Potassium [Moles/Vol] 3.0 mmol/L Low 3.5-5.1 [facility] Comment on above: Order Comment: Janes merlos Type: BLOOD SPECIMEN Ordering Facility: [facility] Address: [address] [place] [address] Performed By: #### 2 4323-8, 5643-2, HCG, 1987-06 #### [facility] CLIA [id number] [address] [place], [place] [address] [place] Protein [Mass/Vol] 8.5 g/dL Normal 6.0-8.5 [facility] Comment on above: Order Comment: Speci men Type: BLOOD SPECIMEN Ordering Facility: [facility] Address: [address] [place] [address] Performed By: #### 2 4323-8, 5643-2, HCG, 1987-06 #### [facility] CLIA [id number] [address] [place], [place] [address] [place] Sodium [Moles/Vol] 139 mmol/L Normal 136-145 [facility] Comment on above: Order Comment: Speci men Type: BLOOD SPECIMEN Ordering Facility: [facility] Address: [address] [place] [address] Performed By: #### 2 432-8, 5643-2, HCG, 1987-06 #### [facility] CLIA [id number] [address] [place] [address] [place] Urea nitrogen [Mass/Vol] mg/dL Low 7-26 [facility] Comment on above: Order Comment: Speci men Type: BLOOD SPECIMEN Ordering Facility: [facility] Address: [address] [place] [address] Performed By: #### 2 4323-8, 5643-2, HCG, 1987-06 #### [facility] CLIA [id number] [address] [place], [place] [address] [place] ED NOTEon 04-11-2023 ED NOTE HNO ID: [id number] Author: MARCUS ZAYAS RN Service: ASSESSMENT Author Type: Registered Nurse Type: ED Notes Filed: 04/11/2023 19:56 Note Text: Pt understands d/c instructions, all questions answeered. Ride on the way. Normal [facility] ED NOTE HNO ID: [id number] Author: YECENIA LUJAN RN Service: ? Author Type: Registered Nurse Type: ED Notes Filed: 04/11/2023 14:45 Note Text: Noted redness and edema of a cellultitc nature to ble [facility] ED PROV NOTEon 04-11-2023 ED PROV NOTE HNO ID: [id number] Author: CHARLY IRVING JR, MD Service: ? Author Type: Physician Type: ED Provider Notes Filed: 04/11/2023 19:42 Note Text: ED Provider Note Patient Name: Dhaval Moon : 2000 SERVICE DATE: 04/11/23 History Patient presents with: Edema: Cellulitis starting 2 weeks ago, was in [facility] 4 times for same HPI PAST [...] 9.68 (*) 1.45 - 7.50 k/uL Abs [place] 1.03 (*) <0.87 k/uL All other components [...] laboratory APTT reagent in use throughout the [employer] 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 Findings from review of [facility] records: Partial records available from visit at [facility] earlier in this month. Multiple imaging [...] as a (more content not included)... Normal [facility] ED PROV NOTE HNO ID: [id number] Author: WENDY HAINES PA-C Service: ? Author Type: Physician Mechanical Adjuster Type: ED Provider Notes Filed: 04/11/2023 19:46 Note Text: ED Provider Note Patient Name: Dhaval Moon : 2000 SERVICE DATE: 04/11/23 History Patient presents with: Edema: Cellulitis starting 2 weeks ago, was in [facility] 4 times for same 22-year-old female [...] temperature at home. Patient was seen at [facility] emergency department last week reportedly and [...] 9.68 (*) 1.45 - 7.50 k/uL Abs [place] 1.03 (*) <0.87 k/uL All other components [...] laboratory APTT reagent in use throughout the [employer] ALCOHOL/ETHANOL BLD - Normal HCG QUAL BLD - Normal XR FOOT GENERAL 3V AP/LAT/OBL BILATERAL Final Result IMPRESSION: Bilateral foot soft tissue sw (more content not included)... Normal [facility] ED Triage Noteon 04-11-2023 ED Triage Note HNO ID: [id number] Author: BELINDA SANTO PA-C Service: ? Author Type: Physician Mechanical Adjuster Type: ED Triage Notes Filed: 04/11/2023 15:05 Note Text: ED INTAKE NOTE Patient Name: Dhaval VELASQUEZN: [id number] Service Date: 04/11/23 BRIEF HPI: Is concerned [...] and imaging ordered. No diagnosis found. SIGNATURE: Belinda Santo PA-C Normal [facility] ESR Westergren method (Bld) [Velocity]on 04-11-2023 ESR (Bld) [Velocity] 36 mm/h High 0-20 [facility] Comment on above: Order Comment: Speci chelita Type: BLOOD SPECIMEN Ordering Facility: [facility] Address: [address] [place] [address] Performed By: #### 5 7021-8, 4537-7 #### [facility] CLIA [id number] [address] [place] [address] [place] Ethanol SerPl-mCncon 024 Ethanol [Mass/Vol] mg/dL Normal <0.010 [facility] Comment on above: Order Comment: Janes merlos Type: BLOOD SPECIMEN Ordering Facility: [facility] Address: [address] [place] [address] Performed By: #### 2 4323-8, 5643-2, HCG, 1987-06 #### [facility] CLIA [id number] [address] [place] [address] [place] HCG QUAL BLDon 04-11-2023 HCG, QUALITATIVE Negative Normal Negative [facility] Comment on above: Order Comment: Janes merlos Type: BLOOD SPECIMEN Ordering Facility: [facility] Address: [address] [place] [address] Performed By: #### 2 4323-8, 5643-2, HCG, 1987-06 #### [facility] CLIA [id number] [address] [place], [place] [id number] [place] PT panel Coag (PPP)on 2023 INR Coag (PPP) [Relative time] 1.0 {INR} Normal 0.9-1.3 [facility] Comment on above: Order Comment: Janes merlos Type: BLOOD SPECIMEN Ordering Facility: [facility] Address: [facility] [place] [address] Result Comment: Carline min K Antagonist (VKA) Therapeutic Range: INR 2 to 3 (Target INR of 2.5) Note: For patients treated with VKA drugs, such as warfarin, the [place] [employer] 2012 Guideline recommends [...] Chest 2012, 141:7S-47S Barry RA, et al. [facility] 2017, 70: 252-289 Performed By: #### 3 4528-0, 75760-1 #### [facility] CLIA [id number] [address] [place] [address] [place] PT Coag (PPP) [Time] 11.3 s Normal 9.7-13.0 [facility] Comment on above: Order Comment: Speci men Type: BLOOD SPECIMEN Ordering Facility: [facility] Address: [address] [place] [address] Performed By: #### 3 4528-0, 83099-0 #### [facility] CLIA [id number] [address] [place], [place] [address] [place] US LEG VEIN DVT HELADIO VAS LABo n 04-11-2023 US LEG VEIN DVT [facility] LAB Non-Invasive Vascular Laboratory [facility] Lower Extremity Venous Duplex Bilateral/Complete Date [...] vein. Technologist: Darcy Eid T Ordering physician: BELINDA SANTO Interpreting physician: Mary Gonzalez MD Final CC Hyphen 8 Medical Image : [id number] sSISUID See Link below for Image Normal [facility] Urinalysis complete panel (U )on 04-11-2023 Bacteria LM.HPF (Urine sed) [#/Area] Rare Abnormal None Seen [facility] Comment on above: Order Comment: Speci men Type: URINE SPECIMENOrdering Facility: [facility] Address: [address] [place] [address] Performed By: #### 2 4356-8 ####[facility]IA [id number] [address] STATES OF [facility] Bilirubin Ql (U) Negative Normal Negative [facility] Comment on above: Order Comment: Speci men Type: URINE SPECIMENOrdering Facility: [facility] Address: [address] [place] [address] Performed By: #### 2 4356-8 ####[facility]IA [id number] [address] [place] Clarity (Unsp spec) Clear Normal Clear [facility] Comment on above: Order Comment: Speci men Type: URINE SPECIMENOrdering Facility: [facility] Address: [address] [place] [address] Performed By: #### 2 4356-8 ####[facility] [id number] [address] [place] Color (U) Yellow Normal Yellow [facility] Comment on above: Order Comment: Speci men Type: URINE SPECIMENOrdering Facility: [facility] Address: [address] [place] [address] Performed By: #### 2 4356-8 ####[facility]IA [id number] [address] [place] Epithelial cells LM.HPF (Urine sed) [#/Area] Few Normal [facility] Comment on above: Order Comment: Speci men Type: URINE SPECIMENOrdering Facility: [facility] Address: [address] [place] [address] Performed By: #### 2 4356-8 ####[facility]IA [id number] [address] Glucose Test strip (U) [Mass/Vol] Negative Normal Negative [facility] Comment on above: Order Comment: Speci men Type: URINE SPECIMENOrdering Facility: [facility] Address: [address] [place] [address] Performed By: #### 2 4356-8 ####[facility]IA [id number] [address] Hemoglobin Ql (U) Negative Normal Negative [facility] Comment on above: Order Comment: Speci men Type: URINE SPECIMENOrdering Facility: [facility] Address: [address] [place] [address] Performed By: #### 2 4356-8 ####[facility]IA [id number] [address] OF [facility] Hyaline casts (Urine sed) [#/Area] /[LPF] Abnormal 0 /LPF [facility] Comment on above: Order Comment: Speci men Type: URINE SPECIMENOrdering Facility: [facility] Address: [address] [place] [address] Performed By: #### 2 4356-8 ####[facility]IA [id number] [address] [place] Ketones Ql (U) 2+ Abnormal Negative [facility] Comment on above: Order Comment: Speci men Type: URINE SPECIMENOrdering Facility: [facility] Address: [address] [place] [address] Performed By: #### 2 4356-8 ####[facility]IA [id number] [address] [place] Leukocyte esterase Test strip Ql (U) Negative Normal Negative [facility] Comment on above: Order Comment: Speci men Type: URINE SPECIMENOrdering Facility: [facility] Address: [address] [place] [address] Performed By: #### 2 4356-8 ####[facility]IA [id number] [place] [id number] [place] Nitrite Ql (U) Negative Normal Negative [facility] Comment on above: Order Comment: Speci men Type: URINE SPECIMENOrdering Facility: [facility] Address: [address] [place] [address] Performed By: #### 2 4356-8 ####[facility]IA [id number] [address] [place] pH (U) 6.0 [pH] Normal 5.0-8.0 [facility] Comment on above: Order Comment: Speci men Type: URINE SPECIMENOrdering Facility: [facility] Address: [address] [place] [address] Performed By: #### 2 4356-8 ####[facility]ORYCLIA [id number] [address] STATES [place] Protein (U) [Mass/Vol] 1+ Abnormal Negative [facility] Comment on above: Order Comment: Speci men Type: URINE SPECIMENOrdering Facility: [facility] Address: [address] [place] [address] Performed By: #### 2 4356-8 ####[facility]ORYCLIA [id number] [place] [address] [place] RBC LM.HPF (Urine sed) [#/Area] 0-3 /HPF Normal 0-3 /HPF [facility] Comment on above: Order Comment: Speci men Type: URINE SPECIMENOrdering Facility: [facility] Address: [address] [place] [address] Performed By: #### 2 4356-8 ####[facility]ORYCLIA [id number] [place] [id number] [place] Specific gravity (U) [Rel density] 1.020 Normal 1.005-1.03 0 [facility] Comment on above: Order Comment: Speci men Type: URINE SPECIMENOrdering Facility: [facility] Address: [address] [place] [address] Performed By: #### 2 4356-8 ####[facility]ORYCLIA [id number] [address] Urobilinogen Ql (U) 1+ Abnormal Negative [facility] Comment on above: Order Comment: Speci men Type: URINE SPECIMENOrdering Facility: [facility] Address: [address] [place] [address] Performed By: #### 2 4356-8 ####[facility]ORYCLIA [id number] [address] [place] WBC LM.HPF (Urine sed) [#/Area] 0-5 /HPF Normal 0-5 /HPF [facility] Comment on above: Order Comment: Speci men Type: URINE SPECIMENOrdering Facility: [facility] Address: [address] [place] [address] Performed By: #### 2 4356-8 ####[facility]ORYCLIA [id number] [address] OF [place] XR FOOT 3V AP/LAT/OBL BILon 04-11-2023 XR [...] tissue swelling without underlying acute osseous abnormality. Supervising Chef: CARLOS Transcribe Date/Time: Apr 11 2023 5:36P Dictated by : MARY COLE MD This examination was interpreted and the report reviewed and electronically signed by: MARY COLE MD on Apr 11 2023 5:39PM EST [id number] Normal [facility] aPTT PPPon 04-11-2023 aPTT Coag (PPP) [Time] 27.9 s Normal 23.0-32.4 [facility] Comment on above: Order Comment: Speci men Type: BLOOD SPECIMEN Ordering Facility: [facility] Address: [address] [place] [address] Performed By: #### 3 4528-0, 53751-4 #### [facility] CLIA [id number] [address] [place] [address] [facility] [address] Brain wo contraston 03-08 CT Brain wo contrast CT HEAD: CLINICAL INDICATION: [id number]: Dizziness TECHNIQUE: Transaxial CT sequence performed through [...] YENI RIDDLE MD, MD Date: 03/08/2023 07:35 [facility] CTA Chest w/wo contraston CTA Chest w/wo [...] YENI RIDDLE MD, MD Date: 03/08/2023 07:45 [facility] Comment on above: Order Comment: For P E No Panel InformationOrdered By: Oh Vaz on 10-27-2022 P [place] 59 degrees [facility] Work Phone: VT Interval 152 ms [facility] Work Phone: QRS [place] 16 degrees [employer] [facility] Work Phone: QRSD Interval 88 ms [facility] [employer] Work Phone: QT Interval 342 ms [facility] Work Phone: QTC Interval 494 ms [facility] Work Phone: T Wave [place] -27 degrees [facility] Work Phone: [facility] Work Phone: No Panel Informationon 10-27 Sinus tachycardia Borderline prolonged QT interval Electronically Signed On 10-27-2022 3:40:42 EDT by Oh Vaz [employer] MD - 10/27/2022 IMPRESSION: Sinus tachycardia Borderline prolonged QT interval Electronically Signed On 10-27-2022 3:40:42 EDT by Oh Vaz [facility] [employer] Vital signsOrdered By: Oh Vaz on 10-27-2022 Heart rate 125 /min bpm [employer] Work Phone: CT Abdomen/Pelvis w/ Contras ton 02-18-2021 CT Abdomen/Pelvis w/ Contrast Patient [facility]: [id number] Computed Tomography ACCESSION EXAM DATE/TIME PROCEDURE ORDERING PROVIDER [id number] 02/18/2021 20:[address] Abdomen/Pelvis w/ IV [id number] DEDRA ESQUIVEL Contrast (IV Onl CPT code 58711 Q9967 Reason For Exam (CT Abdomen/Pelvis w/ [...] Transcribed Date and Time: 02/18/2021 8:58 Normal [facility] Metabolic Panelon 02-18 ALT [Catalytic activity/Vol] 59 U/L High 0-34 [facility] [employer] Comment on above: Result Comment: The ALT test is performed by an updated assay method. Please note that the reference intervals have been changed and are now sex specific. Performed By: #### H EMDF, CMP3, QWAL2, LIPA4 #### [employer] [address] [place] [phone] Calcium [Mass/Vol] 9.7 mg/dL Normal 8.4-10.4 [facility] Comment on above: Performed By: #### H EMDF, CMP3, QWAL2, LIPA4 #### [facility] [address] [place], [place] Glucose [Mass/Vol] 107 mg/dL High 70-100 [facility] Comment on above: Performed By: #### H EMDF, CMP3, QWAL2, LIPA4 #### [facility] [address] [place], [place] Urea nitrogen [Mass/Vol] 7 mg/dL Low 9-20 [facility] Comment on above: Performed By: #### H EMDF, CMP3, QWAL2, LIPA4 #### [place] [address] [place], [place] ALP [Catalytic activity/Vol] 81 U/L Normal 38-126 [facility] Comment on above: Result Comment: Slig htly hemolysed, interpret with caution. Performed By: #### H EMDF, CMP3, QWAL2, LIPA4 #### [place] [address] Anion gap [Moles/Vol] 9 mmol/L Normal 3-13 [facility] Comment on above: Performed By: #### H EMDF, CMP3, QWAL2, LIPA4 #### [place] [address] [place], [place] AST [Catalytic activity/Vol] 67 U/L High 15-46 [facility] Comment on above: Result Comment: Slig htly hemolysed, interpret with caution. Performed By: #### H EMDF, CMP3, QWAL2, LIPA4 #### [facility] [address] [place], [place] Bilirubin [Mass/Vol] 1.0 mg/dL Normal 0.2-1.3 [facility] Comment on above: Performed By: #### H EMDF, CMP3, QWAL2, LIPA4 #### [place] [address] [place], [place] CO2 [Moles/Vol] 24 mmol/L Normal 22-30 [facility] Comment on above: Performed By: #### H EMDF, CMP3, QWAL2, LIPA4 #### [address] Creatinine [Mass/Vol] 0.59 mg/dL Normal 0.52-1.25 [facility] Comment on above: Performed By: #### H EMDF, CMP3, QWAL2, LIPA4 #### [address] eGFR OTHER > 90.0 Normal >60 [facility] Comment on above: Result Comment: KDIG [...] #### H EMDF, CMP3, QWAL2, LIPA4 #### [address] GFR/1.73 sq M.predicted among blacks MDRD (S/P/Bld) [Vol rate/Area] mL/min/{1.73_m2} Normal >60 [facility] Comment on above: Performed By: #### H EMDF, CMP3, QWAL2, LIPA4 #### [address] Protein [Mass/Vol] 9.1 g/dL High 6.3-8.2 [facility] Comment on above: Performed By: #### H EMDF, CMP3, QWAL2, LIPA4 #### [address] Chloride [Moles/Vol] 102 mmol/L Normal 98-107 [facility] Comment on above: Performed By: #### H EMDF, CMP3, QWAL2, LIPA4 #### [place] [address] [address], [place] Potassium [Moles/Vol] 4.8 mmol/L Normal 3.5-5.1 [facility] Comment on above: Result Comment: Slig htly hemolysed, interpret with caution. Performed By: #### H EMDF, CMP3, QWAL2, LIPA4 #### [place] [address] [place] Sodium [Moles/Vol] 136 mmol/L Normal 135-145 [facility] Comment on above: Performed By: #### H EMDF, CMP3, QWAL2, LIPA4 #### [place] [address] [place], [place] Albumin [Mass/Vol] 4.7 g/dL Normal 3.5-5.0 [facility] Comment on above: Performed By: #### H EMDF, CMP3, QWAL2, LIPA4 #### [place] [address] [place], [place] Complete Urinalysison 2021 Appearance (U) Clear Normal Clear [facility] Comment on above: Result Comment: . Performed By: #### C UA2 #### [place] [address] [place], [place] Bilirubin,Urine Negative Normal Negative [facility] Comment on above: Result Comment: . Performed By: #### C UA2 #### [place] [address] [place], [place] Color (U) Light-Yellow Normal Lt. Yellow [facility] Comment on above: Result Comment: . Performed By: #### C UA2 #### [place] [address] [place], [place] Glucose Ql (U) Normal Normal Normal (<70) [facility] Comment on above: Result Comment: . Performed By: #### C UA2 #### [facility] [address] [place] [address] Ketone,Urine Negative Normal Negative [facility] Comment on above: Result Comment: . Performed By: #### C UA2 #### [facility] [address] [place], [place] Leukocytes,Urine Negative Normal Negative [facility] Comment on above: Result Comment: . Performed By: #### C UA2 #### [facility] [address] [place], [place] Nitrites,Urine Negative Normal Negative [facility] Comment on above: Result Comment: . Performed By: #### C UA2 #### [place] [address] [address] [place], [place] Occult Blood,Urine Negative Normal Negative [facility] Comment on above: Result Comment: . Performed By: #### C UA2 #### [place] [address] [place], [place] pH,Urine 7.0 Normal 5.0-8.0 [facility] Comment on above: Result Comment: . Performed By: #### C UA2 #### [place] [address] [address] [place], [place] Specific [place],Urine 1.014 Normal 1.005 - 1.030 [facility] Comment on above: Result Comment: . Performed By: #### C UA2 #### [place] [address] [place], [place] Total Protein,Urine Negative Normal Negative [facility] Comment on above: Result Comment: . Performed By: #### C UA2 #### [place] [address] [address] Urobilinogen,Urine Normal Normal Normal (0-1) [facility] Comment on above: Result Comment: . Performed By: #### C UA2 #### [place] [address] [address] [place], [place] ED Provider Noteon 2 ED Provider Note [facility] EMERGENCY [...] and Family: Not on file ? Attends Denominational Services: Not on file ? Active Member [...] (more content not included)... Normal [facility] ED Provider Note Emergency Department Encounter [facility] Patient: Dhaval Moon : 2000 Date of Evaluation: 02/18/2021 ED Provider: ROMI Diamond As the rylnfbchh-hr-cdahhy, I performed a medical screening history and [...] ROMI Diamond 02/18/21 1712 Normal [facility] Hemogram w/ Autodiffon 02-18 Abs Baso Cnt 0.0 10*3/uL Normal 0.0-0.2 [facility] Comment on above: Performed By: #### H EMDF, CMP3, QWAL2, LIPA4 #### [place] [address] [place] [address] Abs Neutrophile Cnt 8.0 10*3/uL High 1.8-7.0 [facility] Comment on above: Performed By: #### H EMDF, CMP3, QWAL2, LIPA4 #### [place] [address] [address] [place], [place] Basophils/100 WBC (Bld) 0.3 % Normal 0.0-2.0 [facility] Comment on above: Performed By: #### H EMDF, CMP3, QWAL2, LIPA4 #### [place] [address] [place] Eosinophils (Bld) [#/Vol] 0.2 10*3/uL Normal 0.0-0.5 [facility] Comment on above: Performed By: #### H EMDF, CMP3, QWAL2, LIPA4 #### [address] Eosinophils/100 WBC (Bld) 1.6 % Normal 1.0-6.0 [facility] Comment on above: Performed By: #### H EMDF, CMP3, QWAL2, LIPA4 #### [address] Erythrocyte distribution width (RBC) [Ratio] 14.2 % Normal 11.5-14.5 [facility] Comment on above: Performed By: #### H EMDF, CMP3, QWAL2, LIPA4 #### [address] [address] Granulocytes/100 WBC (Bld) 72.8 % Normal 40.0-80.0 [facility] Comment on above: Performed By: #### H EMDF, CMP3, QWAL2, LIPA4 #### [address] Hematocrit (Bld) [Volume fraction] 45.9 % Normal 35.0-47.0 [facility] Comment on above: Performed By: #### H EMDF, CMP3, QWAL2, LIPA4 #### [place] [address] [address] Hemoglobin (Bld) [Mass/Vol] 14.9 g/dL Normal 11.7-16.0 [facility] Comment on above: Performed By: #### H EMDF, CMP3, QWAL2, LIPA4 #### [place] [address] [place] Lymphocytes (Bld) [#/Vol] 1.7 10*3/uL Normal 1.0-4.3 [facility] Comment on above: Performed By: #### H EMDF, CMP3, QWAL2, LIPA4 #### [address] Lymphocytes/100 WBC (Bld) 15.7 % Low 20.0-40.0 [facility] Comment on above: Performed By: #### H EMDF, CMP3, QWAL2, LIPA4 #### [place] [address] [address] [place], [place] MCH (RBC) [Entitic mass] 30.0 pg Normal 26.0-34.0 [facility] Comment on above: Performed By: #### H EMDF, CMP3, QWAL2, LIPA4 #### [address] MCHC 32.4 % Normal 32.0-36.0 [facility] Comment on above: Performed By: #### H EMDF, CMP3, QWAL2, LIPA4 #### [place] [address] [address] MCV (RBC) [Entitic vol] 92.6 fL Normal 79.0-98.0 [facility] Comment on above: Performed By: #### H EMDF, CMP3, QWAL2, LIPA4 #### [address] Monocytes (Bld) [#/Vol] 1.1 10*3/uL High 0.0-0.8 [facility] Comment on above: Performed By: #### H EMDF, CMP3, QWAL2, LIPA4 #### [facility] [address] [place], [place] Monocytes/100 WBC (Bld) 9.6 % Normal 2.0-10.0 [facility] Comment on above: Performed By: #### H EMDF, CMP3, QWAL2, LIPA4 #### [place] [address] [address] Platelet mean volume (Bld) [Entitic vol] 9.4 fL Normal 7.4-10.4 [facility] Comment on above: Performed By: #### H EMDF, CMP3, QWAL2, LIPA4 #### [place] [address], [place] Platelets (Bld) [#/Vol] 324 10*3/uL Normal 140-440 [facility] Comment on above: Performed By: #### H EMDF, CMP3, QWAL2, LIPA4 #### [place] [address] [address] RBC (Bld) [#/Vol] 4.96 10*6/uL Normal 3.80-5.20 [facility] Comment on above: Performed By: #### H EMDF, CMP3, QWAL2, LIPA4 #### [place] [address] [address] WBC (Bld) [#/Vol] 11.0 10*3/uL High 3.6-10.7 [facility] Comment on above: Performed By: #### H EMDF, CMP3, QWAL2, LIPA4 #### [place] [address] [address] Lipaseon 02-18-2021 Lipase [Catalytic activity/Vol] 40 U/L Normal 23-300 [facility] Comment on above: Performed By: #### H EMDF, CMP3, QWAL2, LIPA4 #### [place] [address] [address] [place], [place] US Abdomen Limitedon 022 US Abdomen Limited Patient Name: DHAVAL BARKLEY Ultrasound ACCESSION EXAM DATE/TIME PROCEDURE ORDERING PROVIDER [id number] 02/18/2021 16:08 EST US Abdomen Limited [id number] DEDRA ESQUIVEL CPT code 10721 Reason For Exam (US Abdomen Limited) RUQ [...] and Time: 02/18/2021 4:21 Normal [facility] hCG Qual Pregon 02-18-2021 hCG Qual Preg Negative Normal [facility] Comment on above: Result Comment: Refe rence Range: NEGATIVE Effective 04/26/2019, the reference interval for the qualitative test has been updated. This test detects hCG at concentrations of 10 mIU/L or greater in serum. Performed By: #### H EMDF, CMP3, QWAL2, LIPA4 #### [address] [address] CNOVon 01-17-2019 CNOV Office Visit (UCWSTR ) DHAVAL MOON ([id number]) 89 F Date Time Provider Department 01/17/19 [...] Apnea spell [R06.81] Order(s):XR CHEST 2V FRONTAL/LAT [[id number]] Order #: [id number]. #:[id number] dextromethorphan-guaiF ENesin (MUCINEX DM) 30-600 mg per [...] 0 CONSULT TO SLEEP MEDICINE - ADULT [[id number]] Order #: [id number]: 1 Prescriptions as of 01/17/2019 Sig: PROAIR [...] Status:Closed by ROSANNE PENA on 01/17/19 Normal [facility] PROGRESSon 01-17-2019 PROGRESS HNO ID: [id number] Author: Vadim Oliva (Tech) Service: ? Author Type: Thread Winder Automatic Type: Progress Notes Filed: 01/17/2019 6:05 PM [...] Oliva January 17, 2019 5:50 PM Normal [facility] PROGRESS HNO ID: [id number] Author: Rosanne Pena (Pa) Service: ? 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 Rosanne Pena PA-C Normal [facility] XR CHEST 2V FRONTAL/LATon XR CHEST [...] OTHER: N/A IMPRESSION: No acute cardiopulmonary process. Supervising Chef: PSCElis Transcribe Date/Time: Jan 17 2019 6:17P Dictated by : REGINE BRANTLEY MD This examination was interpreted and the report reviewed and electronically signed by: REGINE BRANTLEY MD on Jan 17 2019 6:19PM EST [id number] Normal [facility] Vital Signs Date Time Vital Sign Value Performing Clinician Rah zazueta 11-14-2024 06:31-0400 Body temperature 98.2 [degF] Dr. Amari Nicholas DO Work Phone: [facility] 11-14-2024 06:31-0400 Diastolic blood pressure 72 mm[Hg] Dr. Amari Nicholas DO Work Phone: [phone] [place] [address] 11-14-2024 06:31-0400 Heart rate 98 /min Dr. Amari Nicholas DO Work Phone: [phone] [place] [address] 11-14-2024 06:31-0400 Respiratory rate 18 /min Dr. Amari Nicholas DO Work Phone: [phone] [place] [address] 11-14-2024 06:31-0400 SaO2% (BldA) [Mass fraction] 99 % Dr. Amari Nicholas DO Work Phone: 4(632)723-660576 [place] [address] 11-14-2024 06:31-0400 Systolic blood pressure 136 mm[Hg] Dr. Amari Nicholas DO Work Phone: 2(848)079-993420 [place] [address] 11-14-2024 01:00-0400 Diastolic blood pressure 72 mm[Hg] Dr. Amari Nicholas DO Work Phone: 5(925)568-942320 [place] [address] 11-14-2024 01:00-0400 Heart rate 108 /min Dr. Amari Nicholas DO Work Phone: 2(231)261-337676 [place] [address] 11-14-2024 01:00-0400 Respiratory rate 18 /min Dr. Amari Nicholas DO Work Phone: 8(408)546-271420 [place] [address] 11-14-2024 01:00-0400 SaO2% (BldA) [Mass fraction] 95 % Dr. Amari Nicholas DO Work Phone: 8(150)608-411276 [place] [address] 11-14-2024 01:00-0400 Systolic blood pressure 139 mm[Hg] Dr. Amari Nicholas DO Work Phone: 8(974)668-636420 [place] [address] 11-14-2024 00:00-0400 Body temperature 98.3 [degF] Dr. Amari Nicholas DO Work Phone: 9(758)452-245920 [place] [address] 11-13-2024 19:56-0400 Body height 154.[address] Amari Nicholas DO Work Phone: 3(678)989-101720 [place] [address] 11-13-2024 07:35-0400 Heart rate 95 /min Dr. Amari Nicholas DO Work Phone: 5(112)835-843176 [place] [address] 11-13-2024 07:35-0400 Respiratory rate 16 /min Dr. Amari Nicholas DO Work Phone: 6(297)703-757020 [place] [address] 11-13-2024 07:09-0400 Body height 154.[address] Amari Nicholas DO Work Phone: 8(228)120-648020 [place] [address] 11-13-2024 07:09-0400 Body mass index (BMI) [Ratio] 43.3 kg/m2 Dr. Amari Nicholas DO Work Phone: 2(228)158-844720 [place] [address] 11-13-2024 07:09-0400 Body temperature 97.7 [degF] Dr. Amari Nicholas DO Work Phone: 9(232)671-098720 [place] [address] 11-13-2024 07:09-0400 Body weight 104.[address] Amari Nicholas DO Work Phone: 0(634)230-575420 [place] [address] 11-13-2024 07:09-0400 Diastolic blood pressure 84 mm[Hg] Dr. Amari Nicholas DO Work Phone: 6(119)844-034020 [place] [address] 11-13-2024 07:09-0400 SaO2% (BldA) [Mass fraction] 97 % Dr. Amari Nicholas DO Work Phone: 5(249)721-270876 [place] [address] 11-13-2024 07:09-0400 Systolic blood pressure 123 mm[Hg] Dr. Amari Nicholas DO Work Phone: 0(703)160-878076 [place] [address] 11-11-2024 06:23-0400 Body temperature 97.8 [degF] Dr. Amari Nicholas DO Work Phone: 2(541)383-498076 [place] [address] 11-11-2024 06:23-0400 Diastolic blood pressure 74 mm[Hg] Dr. Amari Nicholas DO Work Phone: 5(462)980-345976 [place] [address] 11-11-2024 06:23-0400 Heart rate 81 /min Dr. Amari Nicholas DO Work Phone: [facility] 11-11-2024 06:23-0400 Respiratory rate 16 /min Dr. Amari Nicholas DO Work Phone: [facility] 11-11-2024 06:23-0400 SaO2% (BldA) [Mass fraction] 99 % Dr. Amari Nicholas DO Work Phone: [facility] 11-11-2024 06:23-0400 Systolic blood pressure 118 mm[Hg] Dr. Amari Nicholas DO Work Phone: [facility] 11-11-2024 03:18-0400 Body mass index (BMI) [Ratio] 44.6 kg/m2 Dr. Amari Nicholas DO Work Phone: [facility] 11-11-2024 03:18-0400 Body weight 107.[address] Amari Nicholas DO Work Phone: [facility] 10-30-2024 15:50-0400 Diastolic blood pressure 90 mm[Hg] Vanessa Booth MD Work Phone: [facility] 10-30-2024 15:50-0400 Heart rate 104 /min Vanessa Booth MD Work Phone: [facility] 10-30-2024 15:50-0400 Respiratory rate 16 /min Vanessa Booth MD Work Phone: [facility] 10-30-2024 15:50-0400 SaO2% (BldA) [Mass fraction] 96 % Vanessa Booth MD Work Phone: [facility] 10-30-2024 15:50-0400 Systolic blood pressure 149 mm[Hg] Vanessa Booth MD Work Phone: [facility] 10-30-2024 15:46-0400 Body temperature 98.4 [degF] Vanessa Booth MD Work Phone: [facility] 10-30-2024 15:45-0400 Body weight 109.77 kg Vanessa Booth MD Work Phone: [facility] 10-29-2024 11:16-0400 Diastolic blood pressure 87 mm[Hg] Eros Davila DO Work Phone: [facility] 10-29-2024 11:16-0400 SaO2% (BldA) [Mass fraction] 97 % Eros Davila DO Work Phone: [facility] 10-29-2024 11:16-0400 Systolic blood pressure 139 mm[Hg] Eros Davila DO Work Phone: [facility] 10-29-2024 11:03-0400 Heart rate 96 /min Eros Davila DO Work Phone: [facility] 10-29-2024 11:03-0400 Respiratory rate 18 /min Eros Davila DO Work Phone: [facility] 10-29-2024 11:00-0400 Body height 154.9 cm Eros Davila DO Work Phone: [facility] 10-29-2024 11:00-0400 Body mass index (BMI) [Ratio] 45.35 kg/m2 Eros Davila DO Work Phone: [facility] 10-29-2024 11:00-0400 Body temperature 97.9 [degF] Eros Davila DO Work Phone: [facility] 10-29-2024 11:00-0400 Body weight 108.86 kg Eros Davila DO Work Phone: [facility] 10-05-2024 20:55-0400 Diastolic blood pressure 67 mm[Hg] Amanda Milan MD Work Phone: [facility] 10-05-2024 20:55-0400 Heart rate 80 /min Amanda Milan MD Work Phone: [facility] 10-05-2024 20:55-0400 Respiratory rate 15 /min Amanda Milan MD Work Phone: [facility] 10-05-2024 20:55-0400 SaO2% (BldA) [Mass fraction] 97 % Amanda Milan MD Work Phone: [facility] 10-05-2024 20:55-0400 Systolic blood pressure 115 mm[Hg] Amanda Milan MD Work Phone: [facility] 10-05-2024 17:25-0400 Body height 154.9 cm Amanda Milan MD Work Phone: [facility] 10-05-2024 17:25-0400 Body mass index (BMI) [Ratio] 46.29 kg/m2 Amanda Milan MD Work Phone: [facility] 10-05-2024 17:25-0400 Body temperature 97.9 [degF] Amanda Milan MD Work Phone: [facility] 10-05-2024 17:25-0400 Body weight 111.13 kg Amanda Milan MD Work Phone: [facility] 10-03-2024 06:54-0400 Body temperature 98.6 [degF] Savannah Zangmeister DO Work Phone: [employer] 10-03-2024 06:54-0400 Diastolic blood pressure 75 mm[Hg] Savannah Zangmeister DO Work Phone: [facility] 10-03-2024 06:54-0400 Heart rate 108 /min Savannah Zangmeister DO Work Phone: [facility] 10-03-2024 06:54-0400 Respiratory rate 18 /min Savannah Zangmeister DO Work Phone: [employer] 10-03-2024 06:54-0400 SaO2% (BldA) [Mass fraction] 95 % Savannah Garcia DO Work Phone: [facility] 10-03-2024 06:54-0400 Systolic blood pressure 126 mm[Hg] Savannah Garcia DO Work Phone: [facility] 09-28-2024 10:41-0400 Diastolic blood pressure 83 mm[Hg] Raymond Duarte MD Work Phone: [facility] 09-28-2024 10:41-0400 Heart rate 93 /min Raymond Duarte MD Work Phone: [facility] [employer] 09-28-2024 10:41-0400 Respiratory rate 16 /min Raymond Duarte MD Work Phone: [facility] 09-28-2024 10:41-0400 SaO2% (BldA) [Mass fraction] 98 % Raymond Duarte MD Work Phone: [facility] 09-28-2024 10:41-0400 Systolic blood pressure 127 mm[Hg] Raymond Duarte MD Work Phone: [facility] 09-28-2024 09:11-0400 Body temperature 98.4 [degF] Raymond Duarte MD Work Phone: [facility] 09-28-2024 06:58-0400 Body height 154.9 cm Raymond Duarte MD Work Phone: [facility] 09-28-2024 06:58-0400 Body mass index (BMI) [Ratio] 45.35 kg/m2 Raymond Duarte MD Work Phone: [facility] 09-28-2024 06:58-0400 Body weight 108.86 kg Raymond Duarte MD Work Phone: [facility] [employer] 09-26-2024 09:29-0400 Respiratory rate 18 /min Pablo Cummings MD Work Phone: [facility] 09-26-2024 07:42-0400 Body temperature 98.01 [degF] Pablo Cummings MD Work Phone: [facility] 09-26-2024 07:42-0400 Diastolic blood pressure 83 mm[Hg] Pablo Cummings MD Work Phone: [facility] 09-26-2024 07:42-0400 Heart rate 71 /min Pablo Cummings MD Work Phone: [facility] 09-26-2024 07:42-0400 SaO2% (BldA) [Mass fraction] 98 % Pablo Cummings MD Work Phone: [facility] 09-26-2024 07:42-0400 Systolic blood pressure 138 mm[Hg] Pablo Cummings MD Work Phone: [facility] 09-25-2024 05:43-0400 Body mass index (BMI) [Ratio] 46.4 kg/m2 Pablo Cummings MD Work Phone: [facility] 09-25-2024 05:43-0400 Body weight 111.4 kg Pablo Cummings MD Work Phone: [facility] 09-24-2024 22:28-0400 Body height 154.9 cm Pablo Cummings MD Work Phone: [facility] 08-12-2024 19:56-0400 Diastolic blood pressure 59 mm[Hg] Juanita Hugo MD Work Phone: [facility] 08-12-2024 19:56-0400 Heart rate 68 /min Juanita Hugo MD Work Phone: [facility] 08-12-2024 19:56-0400 Respiratory rate 16 /min Juanita Hugo MD Work Phone: [facility] 08-12-2024 19:56-0400 SaO2% (BldA) [Mass fraction] 97 % Juanita Hugo MD Work Phone: [facility] 08-12-2024 19:56-0400 Systolic blood pressure 121 mm[Hg] Juanita Hugo MD Work Phone: [facility] 08-12-2024 16:26-0400 Body weight 104.6 kg Juanita Hugo MD Work Phone: [facility] 08-12-2024 16:25-0400 Body temperature 97.81 [degF] Juanita Hugo MD Work Phone: [facility] 08-04-2024 04:58-0400 Body temperature 98 [degF] Dr. Vanessa Booth MD Work Phone: 5(605)662-727113 [address] 08-04-2024 04:58-0400 Diastolic blood pressure 77 mm[Hg] Dr. Vanessa Booth MD Work Phone: 6(614)607-424528 [place] [address] 08-04-2024 04:58-0400 Heart rate 88 /min Dr. Vanessa Booth MD Work Phone: 1(419)209-863928 [place] [address] 08-04-2024 04:58-0400 Respiratory rate 16 /min Dr. Vanessa Booth MD Work Phone: 9(808)026-898928 [place] [address] 08-04-2024 04:58-0400 SaO2% (BldA) [Mass fraction] 99 % Dr. Vanessa Booth MD Work Phone: 4(630)763-197928 [place] [address] 08-04-2024 04:58-0400 Systolic blood pressure 145 mm[Hg] Dr. Vanessa Booth MD Work Phone: 9(529)510-041141 [place] [address] 08-03-2024 19:36-0400 Body height 154.[address] Vanessa Booth MD Work Phone: 2(471)512-783541 [place] [address] 08-03-2024 19:36-0400 Body mass index (BMI) [Ratio] 42.9 kg/m2 Dr. Vanessa Booth MD Work Phone: 1(470)563-483541 [place] [address] 08-03-2024 19:36-0400 Body weight 102.[address] Vanessa Booth MD Work Phone: [facility] 07-14-2024 23:36-0400 Body temperature 97.8 [degF] Dr. Vanessa Booth MD Work Phone: [facility] 07-14-2024 23:36-0400 Diastolic blood pressure 76 mm[Hg] Dr. Vanessa Booth MD Work Phone: [facility] 07-14-2024 23:36-0400 Heart rate 96 /min Dr. Vanessa Booth MD Work Phone: [facility] 07-14-2024 23:36-0400 Respiratory rate 16 /min Dr. Vanessa Booth MD Work Phone: [facility] 07-14-2024 23:36-0400 SaO2% (BldA) [Mass fraction] 99 % Dr. Vanessa Booth MD Work Phone: [facility] 07-14-2024 23:36-0400 Systolic blood pressure 128 mm[Hg] Dr. Vanessa Booth MD Work Phone: [facility] 07-14-2024 23:00-0400 Body mass index (BMI) [Ratio] 43.9 kg/m2 Dr. Vanessa Booth MD Work Phone: [facility] 07-14-2024 23:00-0400 Body weight 105.[address] Vanessa Booth MD Work Phone: [facility] 07-14-2024 04:02-0400 Diastolic blood pressure 80 mm[Hg] Dr. Vanessa Booth MD Work Phone: [facility] 07-14-2024 04:02-0400 Heart rate 88 /min Dr. Vanessa Booth MD Work Phone: [facility] 07-14-2024 04:02-0400 Respiratory rate 22 /min Dr. Vanessa Booth MD Work Phone: [facility] 07-14-2024 04:02-0400 SaO2% (BldA) [Mass fraction] 97 % Dr. Vanessa Booth MD Work Phone: [facility] 07-14-2024 04:02-0400 Systolic blood pressure 137 mm[Hg] Dr. Vanessa Booth MD Work Phone: [facility] 07-14-2024 02:02-0400 Body height 154.[address] Vanessa Booth MD Work Phone: [facility] 07-14-2024 02:02-0400 Body mass index (BMI) [Ratio] 43.8 kg/m2 Dr. Vanessa Booth MD Work Phone: [facility] 07-14-2024 02:02-0400 Body temperature 98.9 [degF] Dr. Vanessa Booth MD Work Phone: [facility] 07-14-2024 02:02-0400 Body weight 105.[address] Vanessa Booth MD Work Phone: [facility] 07-09-2024 14:20-0400 Body mass index (BMI) [Ratio] 43.31 kg/m2 Jumana Bridenthal [employer] Work Phone: [facility] 07-09-2024 14:20-0400 Body temperature 98.29 [degF] Jumana Bridenthal [employer] - [employer] OPERATOR Work Phone: [facility] 07-09-2024 14:20-0400 Body weight 107.41 kg Jumana Bridenthal [employer] - [employer]ATOR Work Phone: [facility] 07-09-2024 14:20-0400 Diastolic blood pressure 81 mm[Hg] Jumana Bridenthal [employer] - [employer] OPERATOR Work Phone: [facility] 07-09-2024 14:20-0400 Heart rate 73 /min Jumana Bridenthal [employer] - [employer] OPERATOR Work Phone: [facility] 07-09-2024 14:20-0400 Respiratory rate 20 /min Jumana Bridenthal [employer]TER - [employer]OL OPERATOR Work Phone: [facility] 07-09-2024 14:20-0400 SaO2% (BldA) [Mass fraction] 95 % Jumana Devaughnenthal [employer] SETTER - [employer] OPERATOR Work Phone: [facility] 07-09-2024 14:20-0400 Systolic blood pressure 117 mm[Hg] Jumana Devaughnenthal [employer]TER - [employer]ATOR Work Phone: [facility] 06-13-2024 11:00-0400 Diastolic blood pressure 112 mm[Hg] Dr. Vanessa Booth MD Work Phone: [facility] 06-13-2024 11:00-0400 Heart rate 85 /min Dr. Vanessa Booth MD Work Phone: [facility] 06-13-2024 11:00-0400 Respiratory rate 16 /min Dr. Vanessa Booth MD Work Phone: [facility] 06-13-2024 11:00-0400 SaO2% (BldA) [Mass fraction] 100 % Dr. Vanessa Booth MD Work Phone: [facility] 06-13-2024 11:00-0400 Systolic blood pressure 134 mm[Hg] Dr. Vanessa Booth MD Work Phone: [facility] 06-13-2024 09:13-0400 Body mass index (BMI) [Ratio] 40.7 kg/m2 Dr. Vanessa Booth MD Work Phone: [facility] 06-13-2024 09:13-0400 Body temperature 98.6 [degF] Dr. Vanessa Booth MD Work Phone: [facility] 06-13-2024 09:13-0400 Body weight 97.[address] Vanessa Booth MD Work Phone: [facility] 06-13-2024 04:58-0400 Body mass index (BMI) [Ratio] 42 kg/m2 Dr. Vanessa Booth MD Work Phone: [facility] 06-13-2024 04:58-0400 Body temperature 98.3 [degF] Dr. Vanessa Booth MD Work Phone: [facility] 06-13-2024 04:58-0400 Body weight 100.[address] Vanessa Booth MD Work Phone: 1(217)492-985141 [place] [address] 06-13-2024 04:58-0400 Diastolic blood pressure 89 mm[Hg] Dr. Vanessa Booth MD Work Phone: 8(871)858-742641 [place] [address] 06-13-2024 04:58-0400 Heart rate 103 /min Dr. Vanessa Booth MD Work Phone: 7(373)489-734228 [place] [address] 06-13-2024 04:58-0400 Respiratory rate 18 /min Dr. Vanessa Booth MD Work Phone: 5(073)057-929928 [place] [address] 06-13-2024 04:58-0400 SaO2% (BldA) [Mass fraction] 98 % Dr. Vanessa Booth MD Work Phone: 4(695)539-836641 [place] [address] 06-13-2024 04:58-0400 Systolic blood pressure 146 mm[Hg] Dr. Vanessa Booth MD Work Phone: [facility] 06-02-2024 12:58-0400 Body height 152.[address] Vanessa Booth MD Work Phone: 6(021)296-367741 [place] [address] 06-02-2024 12:58-0400 Body mass index (BMI) [Ratio] 42 kg/m2 Dr. Vanessa Booth MD Work Phone: 5(410)133-039441 [place] [address] 06-02-2024 12:58-0400 Body temperature 98.4 [degF] Dr. Vanessa Booth MD Work Phone: 8(363)463-096941 [place] [address] 06-02-2024 12:58-0400 Body weight 97.[address] Vanessa Booth MD Work Phone: 5(559)521-506841 [place] [address] 06-02-2024 12:58-0400 Diastolic blood pressure 108 mm[Hg] Dr. Vanessa Booth MD Work Phone: [facility] 06-02-2024 12:58-0400 Heart rate 125 /min Dr. Vanessa Booth MD Work Phone: [facility] 06-02-2024 12:58-0400 Respiratory rate 16 /min Dr. Vanessa Booth MD Work Phone: [facility] 06-02-2024 12:58-0400 SaO2% (BldA) [Mass fraction] 99 % Dr. Vanessa Booth MD Work Phone: [facility] 06-02-2024 12:58-0400 Systolic blood pressure 148 mm[Hg] Dr. Vanessa Booth MD Work Phone: [facility] 05-30-2024 21:40-0400 Body height 152.[address] Vanessa Booth MD Work Phone: [facility] 05-30-2024 21:40-0400 Body mass index (BMI) [Ratio] 43.6 kg/m2 Dr. Vanessa Booth MD Work Phone: [facility] 05-30-2024 21:40-0400 Body temperature 97.7 [degF] Dr. Vanessa Booth MD Work Phone: [facility] 05-30-2024 21:40-0400 Body weight 101.[address] Vanessa Booth MD Work Phone: [facility] 05-30-2024 21:40-0400 Diastolic blood pressure 103 mm[Hg] Dr. Vanessa Booth MD Work Phone: [facility] 05-30-2024 21:40-0400 Heart rate 135 /min Dr. Vanessa Booth MD Work Phone: [facility] 05-30-2024 21:40-0400 Respiratory rate 22 /min Dr. Vanessa Booth MD Work Phone: [facility] 05-30-2024 21:40-0400 SaO2% (BldA) [Mass fraction] 100 % Dr. Vanessa Booth MD Work Phone: [facility] 05-30-2024 21:40-0400 Systolic blood pressure 116 mm[Hg] Dr. Vanessa Booth MD Work Phone: [facility] 05-05-2024 01:06-0400 Body height 152.[address] Vanessa Booth MD Work Phone: [facility] 05-05-2024 01:06-0400 Body mass index (BMI) [Ratio] 43 kg/m2 Dr. Vanessa Booth MD Work Phone: 3(011)302-264541 [place] [address] 05-05-2024 01:06-0400 Body temperature 98.3 [degF] Dr. Vanessa Booth MD Work Phone: [facility] 05-05-2024 01:06-0400 Body weight [address] Vanessa Booth MD Work Phone: [facility] 05-05-2024 01:06-0400 Heart rate 126 /min Dr. Vanessa Booth MD Work Phone: [facility] 05-05-2024 01:06-0400 Respiratory rate 20 /min Dr. Vanessa Booth MD Work Phone: [facility] 05-05-2024 01:06-0400 SaO2% (BldA) [Mass fraction] 99 % Dr. Vanessa Booth MD Work Phone: [facility] 04-28-2024 05:47-0400 Body temperature 98 [degF] Dr. Vanessa Booth MD Work Phone: [facility] 04-28-2024 05:47-0400 Diastolic blood pressure 92 mm[Hg] Dr. Vanessa Booth MD Work Phone: [facility] 04-28-2024 05:47-0400 Heart rate 98 /min Dr. Vanessa Booth MD Work Phone: [facility] 04-28-2024 05:47-0400 Respiratory rate 18 /min Dr. Vanessa Booth MD Work Phone: [facility] 04-28-2024 05:47-0400 SaO2% (BldA) [Mass fraction] 99 % Dr. Vanessa Booth MD Work Phone: [facility] 04-28-2024 05:47-0400 Systolic blood pressure 150 mm[Hg] Dr. Vanessa Booth MD Work Phone: [facility] 04-28-2024 02:49-0400 Body height 152.[address] Vanessa Booth MD Work Phone: [facility] 04-28-2024 02:49-0400 Body mass index (BMI) [Ratio] 46.9 kg/m2 Dr. Vanessa Booth MD Work Phone: 9(558)962-294841 [place] [address] 04-28-2024 02:49-0400 Body weight [address] Vanessa Booth MD Work Phone: [facility] 04-25-2024 14:12-0400 Body height 152.[address] Vanessa Booth MD Work Phone: [facility] 04-25-2024 14:12-0400 Body mass index (BMI) [Ratio] 47.8 kg/m2 Dr. Vanessa Booth MD Work Phone: [facility] 04-25-2024 14:12-0400 Body temperature 97.6 [degF] Dr. Vanessa Booth MD Work Phone: [facility] 04-25-2024 14:12-0400 Body weight 111.[address] Vanessa Booth MD Work Phone: [facility] 04-25-2024 14:12-0400 Diastolic blood pressure 94 mm[Hg] Dr. Vanessa Booth MD Work Phone: [facility] 04-25-2024 14:12-0400 Heart rate 134 /min Dr. Vanessa Booth MD Work Phone: 0(332)382-362441 [place] [address] 04-25-2024 14:12-0400 Respiratory rate 22 /min Dr. Vanessa oBoth MD Work Phone: 1(835)508-913541 [place] [address] 04-25-2024 14:12-0400 SaO2% (BldA) [Mass fraction] 100 % Dr. Vanessa Booth MD Work Phone: 2(275)210-970441 [place] [address] 04-25-2024 14:12-0400 Systolic blood pressure 169 mm[Hg] Dr. Vanessa Booth MD Work Phone: 3(579)478-543928 [place] [address] 03-23-2024 22:59-0500 Body temperature 97.8 [degF] Dr. Vanessa Booth MD Work Phone: 1(156)313-354228 [place] [address] 03-23-2024 22:59-0500 Diastolic blood pressure 96 mm[Hg] Dr. Vanessa Booth MD Work Phone: 2(496)884-752741 [place] [address] 03-23-2024 22:59-0500 Heart rate 83 /min Dr. Vanessa Booth MD Work Phone: 2(322)861-543941 [place] [address] 03-23-2024 22:59-0500 Respiratory rate 22 /min Dr. Vanessa Booth MD Work Phone: 4(529)832-102128 [place] [address] 03-23-2024 22:59-0500 SaO2% (BldA) [Mass fraction] 99 % Dr. Vanessa Booth MD Work Phone: 3(057)353-900241 [place] [address] 03-23-2024 22:59-0500 Systolic blood pressure 143 mm[Hg] Dr. Vanessa Booth MD Work Phone: 4(086)481-773941 [place] [address] 01-10-2024 14:31-0500 Body temperature 98.7 [degF] Dr. Vanessa Booth MD Work Phone: [facility] 01-10-2024 14:31-0500 Diastolic blood pressure 72 mm[Hg] Dr. Vanessa Booth MD Work Phone: [facility] 01-10-2024 14:31-0500 Heart rate 107 /min Dr. Vanessa Booth MD Work Phone: [facility] 01-10-2024 14:31-0500 Respiratory rate 18 /min Dr. Vanessa Booth MD Work Phone: [facility] 01-10-2024 14:31-0500 SaO2% (BldA) [Mass fraction] 98 % Dr. Vanessa Booth MD Work Phone: [facility] 01-10-2024 14:31-0500 Systolic blood pressure 119 mm[Hg] Dr. Vanessa Booth MD Work Phone: [facility] 01-09-2024 10:47-0500 Body weight 88.[address] Vanessa Booth MD Work Phone: [facility] 01-08-2024 20:20-0500 Body mass index (BMI) [Ratio] 38.2 kg/m2 Dr. Vanessa Booth MD Work Phone: [facility] 09-02-2023 08:34-0400 Diastolic blood pressure 70 mm[Hg] Billie Tory DO Work Phone: [facility] 09-02-2023 08:34-0400 Heart rate 95 /min Billie Tory DO Work Phone: [facility] 09-02-2023 08:34-0400 Respiratory rate 18 /min Billie Tory DO Work Phone: [facility] 09-02-2023 08:34-0400 SaO2% (BldA) [Mass fraction] 97 % Billie Spears DO Work Phone: [facility] 09-02-2023 08:34-0400 Systolic blood pressure 107 mm[Hg] Billie Tory DO Work Phone: [facility] 09-02-2023 02:07-0400 Body temperature 98.49 [degF] Billie Aguileraoch DO Work Phone: [facility] 08-18-2023 09:55-0400 Diastolic Blood Pressure Non-Invasive 86 mm[Hg] DR REGINE CONRAD MD [facility] 08-18-2023 09:55-0400 Heart rate 98 /min DR REGINE CONRAD MD [facility] 08-18-2023 09:55-0400 Respiratory rate 18 /min DR REGINE CONRAD MD [facility] 08-18-2023 09:55-0400 Systolic Blood Pressure Non-Invasive 137 mm[Hg] DR REGINE CONRAD MD [facility] 08-18-2023 06:05-0400 Diastolic Blood Pressure Non-Invasive 77 mm[Hg] DR REGINE CONRAD MD [facility] 08-18-2023 06:05-0400 Heart rate 98 /min DR REGINE CONRAD MD [facility] 08-18-2023 06:05-0400 Respiratory rate 18 /min DR REGINE CONRAD MD [facility] 08-18-2023 06:05-0400 Systolic Blood Pressure Non-Invasive 129 mm[Hg] DR REGINE CONRAD MD [facility] 08-17-2023 23:01-0400 Heart rate 98 /min DR REGINE CONRAD MD [facility] 08-17-2023 23:01-0400 Respiratory rate 18 /min DR REGINE CONRAD MD [facility] 08-17-2023 20:02-0400 Body height [address] REGINE CONRAD MD [facility] 08-17-2023 20:02-0400 Body temperature 98.78 [degF] DR REGINE CONRAD MD [facility] 08-17-2023 20:02-0400 Body weight 111.[address] REGINE CONRAD MD [facility] 08-17-2023 20:02-0400 Diastolic Blood Pressure Non-Invasive 87 mm[Hg] DR REGINE CONRAD MD [facility] 08-17-2023 20:02-0400 Systolic Blood Pressure Non-Invasive 142 mm[Hg] DR REGINE CONRAD MD [facility] 06-28-2023 10:35-0400 Diastolic blood pressure 90 mm[Hg] Vanessa Booth MD Work Phone: [facility] [employer] 06-28-2023 10:35-0400 Heart rate 105 /min Vanessa Booth MD Work Phone: [facility] [employer] 06-28-2023 10:35-0400 Systolic blood pressure 136 mm[Hg] Vanessa Booth MD Work Phone: [facility] [employer] 06-28-2023 09:49-0400 Body height 157.5 cm Vanessa Booth MD Work Phone: [facility] [facility] [employer] 06-28-2023 09:49-0400 Body mass index (BMI) [Ratio] 47.55 kg/m2 Vanessa Booth MD Work Phone: [facility] [employer] 06-28-2023 09:49-0400 Body weight 117.94 kg Vanessa Booth MD Work Phone: [facility] [employer] 06-28-2023 09:49-0400 SaO2% (BldA) [Mass fraction] 97 % Vanessa Booth MD Work Phone: [facility] [employer] 04-25-2023 15:10-0400 Diastolic blood pressure 98 mm[Hg] Vanessa Booth MD Work Phone: [facility] 04-25-2023 15:10-0400 Heart rate 125 /min Vanessa Booth MD Work Phone: [facility] 04-25-2023 15:10-0400 Systolic blood pressure 153 mm[Hg] Vanessa Booth MD Work Phone: [facility] 04-25-2023 14:37-0400 Body height 157.5 cm Vanessa Booth MD Work Phone: [facility] [employer] 04-25-2023 14:37-0400 Body mass index (BMI) [Ratio] 50.22 kg/m2 Vanessa Booth MD Work Phone: [facility] 04-25-2023 14:37-0400 Body weight 124.56 kg Vanessa Booth MD Work Phone: [facility] 04-25-2023 14:37-0400 SaO2% (BldA) [Mass fraction] 91 % Vanessa Booth MD Work Phone: [facility] 04-07-2023 16:51-0500 Body height 157.48 cm [facility] [facility] Work Phone: [facility] 04-07-2023 16:51-0500 Body temperature 99.4 [degF] [facility] Work Phone: [facility] 04-07-2023 16:51-0500 Body weight 135.63 kg [facility] Work Phone: [facility] 04-07-2023 16:51-0500 Diastolic blood pressure 52 mm[Hg] [facility] Work Phone: [facility] 04-07-2023 16:51-0500 Heart rate 119 /min [facility] Work Phone: [facility] 04-07-2023 16:51-0500 Respiratory rate 20 /min [facility] Work Phone: [facility] 04-07-2023 16:51-0500 SaO2% (BldA) [Mass fraction] 98 % [facility] Work Phone: [facility] 04-07-2023 16:51-0500 Systolic blood pressure 102 mm[Hg] [facility] Work Phone: [facility] 04-02-2023 04:34-0500 Diastolic blood pressure 97 mm[Hg] [facility] Work Phone: [facility] 04-02-2023 04:34-0500 Heart rate 120 /min [facility] Work Phone: [facility] 04-02-2023 04:34-0500 Respiratory rate 20 /min [facility] Work Phone: [facility] 04-02-2023 04:34-0500 SaO2% (BldA) [Mass fraction] 97 % [facility] Work Phone: [facility] 04-02-2023 04:34-0500 Systolic blood pressure 140 mm[Hg] [facility] Work Phone: [facility] 04-02-2023 02:15-0500 Body height 154.94 cm [facility] Work Phone: [facility] 04-02-2023 02:15-0500 Body temperature 97.9 [degF] [facility] Work Phone: [facility] 04-02-2023 02:15-0500 Body weight 136.08 kg [facility] Work Phone: [facility] 02-06-2024 10:49-0500 Diastolic blood pressure 92 mm[Hg] Vanessa Booth MD Work Phone: [employer] 03-21-2023 10:49-0500 Heart rate 112 /min Vanessa Booth MD Work Phone: [employer] 03-21-2023 10:49-0500 Systolic blood pressure 132 mm[Hg] Vanessa Booth MD Work Phone: [employer] 03-21-2023 10:21-0500 Body height 157.5 cm Vanessa Booth MD Work Phone: [employer] 03-21-2023 10:21-0500 Body mass index (BMI) [Ratio] 55.16 kg/m2 Vanessa Booth MD Work Phone: [employer] 03-21-2023 10:21-0500 Body weight 136.81 kg Vanessa Booth MD Work Phone: [employer] 03-21-2023 10:21-0500 SaO2% (BldA) [Mass fraction] 96 % Vanessa Booth MD Work Phone: [employer] Encounters Encounter Date Encounter Type Care Provider Facility Start: 11-13-2024 End: 11-14-2024 Emergency department patient visit Dr. Amari Nicholas DO Work Phone: -Emergency Department Work Phone: Start: 11-13-2024 End: 11-13-2024 Emergency department patient visit Dr. Amari Nicholas DO Work Phone: -Emergency Department Work Phone: Start: 11-11-2024 End: 11-11-2024 Emergency department patient visit Dr. Amari Nicholas DO Work Phone: -Emergency Department Work Phone: Start: 10-30-2024 End: 10-30-2024 Emergency department patient visit VANESSA Asencio Emergency Department Start: 10-29-2024 End: 10-29-2024 Emergency department patient visit Eros Davila DO Work Phone: [facility] Emergency Department Comment on above: Pain of upper abdome n (Primary Dx) Start: 10-12-2024 End: 10-12-2024 Emergency department patient visit GEOVANNY DEMARCO Facility:[facility] Start: 10-05-2024 End: 10-05-2024 Emergency department patient visit Amanda Mialn MD Work Phone: [facility] Emergency Department Comment on above: Urinary tract infect ion without hematuria, site unspecified (Primary Dx); Bacterial vaginosis Start: 10-04-2024 End: 10-04-2024 ambulatory [facility] Start: 10-03-2024 End: 10-03-2024 Emergency department patient visit Savannah Garcia DO Work Phone: [facility] Emergency Room Comment on above: Encounter for medica l screening examination (Primary Dx) Start: 10-03-2024 End: 10-03-2024 Evaluation and management of inpatient Savannah Garcia DO Work Phone: [facility] Emergency Room Start: 10-01-2024 End: 10-02-2024 Emergency department patient visit DENICE WEINER [facility] Start: 09-28-2024 End: 09-28-2024 Emergency department patient visit Raymond Duarte MD Work Phone: [facility] Emergency Room Comment on above: Alcohol abuse (Prima ry Dx) Start: 09-28-2024 End: 09-28-2024 Evaluation and management of inpatient Raymond Duarte MD Work Phone: [facility] Emergency Room Start: 09-27-2024 End: 09-28-2024 Emergency department patient visit MARY KAY BRADLEY [facility] Start: 09-24-2024 End: 09-26-2024 Evaluation and management of inpatient Isabella Mazariegos MD Work Phone: [address] Start: 08-23-2024 Emergency department patient visit VANESSA BOOTH Facility:[facility] Start: 08-12-2024 End: 08-12-2024 Emergency department patient visit Juanita Hugo MD Work Phone: [facility] Emergency Department Start: 08-03-2024 End: 08-04-2024 Emergency department patient visit Dr. Vanessa Booth MD Work Phone: -Emergency Department Work Phone: Start: 07-14-2024 End: 07-14-2024 Emergency department patient visit Dr. Vanessa Booth MD Work Phone: -Emergency Department Work Phone: Start: 07-14-2024 End: 07-14-2024 Emergency department patient visit Dr. Vanessa Booth MD Work Phone: -Emergency Department Work Phone: Start: 07-09-2024 End: 07-09-2024 Office outpatient visit 25 minutes Jumana Kathleen [employer]DR[employer] SETTER - [employer]PORT CONTROL OPERATOR Work Phone: [facility] Comment on above: Moderate persistent asthma without complication (Primary Dx); Anxiety; Seasonal allergies; Nausea and vomiting, unspecified vomiting type; Primary hypertension; Missed period; Moderate episode of recurrent major depressive disorder (HCC) Start: 07-09-2024 End: 07-09-2024 ambulatory JUMANA KATHLEEN [facility] Start: 07-09-2024 End: 09-08-2024 Follow-up encounter Jumana Kathleen HYDRANT SETTER - AIRPORT CONTROL OPERATOR Work Phone: [facility] Comment on above: POCT , urin e manually resulted Start: 07-03-2024 End: 07-09-2024 ambulatory Marilin James [facility] Clinical Communication Start: 07-03-2024 End: 07-09-2024 Patient encounter procedure Marilin James RN [facility] Start: 06-13-2024 End: 06-13-2024 Emergency department patient visit Dr. Tree Crowe MD -Emergency Department Work Phone: Start: 06-13-2024 End: 06-13-2024 Emergency department patient visit Daniel Herrera DO -Emergency Department Work Phone: Start: 06-02-2024 End: 06-02-2024 Emergency department patient visit Dr. Vanessa Booth MD Work Phone: -Emergency Department Work Phone: Start: 05-30-2024 End: 05-30-2024 Emergency department patient visit Dr. Vanessa Booth MD Work Phone: -Emergency Department Work Phone: Start: 05-05-2024 End: 05-05-2024 Emergency department patient visit Dr. Vanessa Booth MD Work Phone: -Emergency Department Work Phone: Start: 04-28-2024 End: 04-28-2024 Emergency department patient visit Dr. Vanessa Booth MD Work Phone: -Emergency Department Work Phone: Start: 04-25-2024 End: 04-25-2024 Emergency department patient visit Dr. Vanessa Booth MD Work Phone: -Emergency Department Work Phone: Start: 03-23-2024 End: 03-23-2024 Emergency department patient visit Dr. Rickie Rayo MD -Emergency Department Work Phone: Start: 02-26-2024 End: 03-20-2024 Nafisaill Vanessa Booth MD Work Phone: [facility] Comment on above: Alcohol-induced poly neuropathy (HCC); Multiple open wounds of foot Start: 01-10-2024 Non-patient / Non-visit Dr. Jenelle Pugh MD [facility] Work Phone: Start: 01-09-2024 Non-patient / Non-visit Dr. Jenelle Pugh MD [facility] Work Phone: Start: 01-08-2024 ambulatory [facility] Fac ility:[facility] Start: 01-08-2024 End: 01-10-2024 Evaluation and management of inpatient Dr. Easton Pugh MD -Medical Surgical 3 Work Phone: Start: 12-20-2023 End: 12-21-2023 Emergency department patient visit Deep Villatoro Facility:[facility] Start: 12-06-2023 End: 12-06-2023 Emergency department patient visit Vanessa Devyn Facility:[facility] Start: 12-06-2023 End: 12-06-2023 Emergency department patient visit Ed Physician Provider Facility:[facility] Start: 11-27-2023 End: 11-28-2023 Emergency department patient visit Vanessa Devyn Facility:[facility] Start: 11-05-2023 End: [facility] Start: 11-05-2023 End: 11-05-2023 Emergency department patient visit Vanessadavid Booth Facility:[facility] Start: 11-03-2023 End: 11-28-2023 Telephone encounter Vanessa Booth MD Work Phone: [facility] Comment on above: Referral (Wound Care and Physical Therapy) Start: 09-16-2023 End: 09-16-2023 Emergency department patient visit Tiffany Montana NP Facility:[facility] Start: 09-02-2023 End: 09-02-2023 Emergency department patient visit Billie Tory MARCUM Work Phone: [facility] Comment on above: Paranoia (psychosis) (HCC) (Primary Dx); Hypokalemia; Methamphetamine-induced psychotic disorder (HCC) Start: 09-02-2023 End: 09-02-2023 Emergency department patient visit SKIP MCGEE MD [facility] Start: 08-17-2023 End: 08-18-2023 Emergency department patient visit DR REGINE CONRAD MD [facility] Start: 06-28-2023 End: 06-28-2023 Office outpatient visit 25 minutes Vanessa Booth MD Work Phone: [facility] Comment on above: Moderate persistent asthma with exacerbation (Primary Dx); Anxiety; Moderate episode of recurrent major depressive disorder (HCC); Elevated transaminase level; Screening for diabetes mellitus; Screening for lipid disorders; Controlled drug dependence (HCC) Start: 06-21-2023 Telephone encounter Vanessa Devine MD Work Phone: [facility] Comment on above: Scheduling Start: 06-20-2023 Refill Vanessa Booth MD Work Phone: [facility] Start: 06-17-2023 End: 06-18-2023 Emergency department patient visit VANESSA BOOTH Facility:[id number] Start: 06-17-2023 Admission to establishment Nita Verma [facility] Work Phone: [facility] Start: 06-17-2023 ambulatory Nita Verma [facility] Work Phone: [facility] Intake Comment on above: Hallucinations Start: 06-17-2023 Patient encounter procedure Noemí Valera RN [facility] Clinical Communication Comment on above: Alcohol-induced poly neuropathy (HCC); Multiple open wounds of foot Start: 06-08-2023 End: 06-10-2023 Evaluation and management of inpatient VANESSA BOOTH Facility:[id number] Start: 04-25-2023 End: 04-25-2023 Office outpatient visit 25 minutes Vanessa Booth MD Work Phone: [facility] Comment on above: Alcohol-induced poly neuropathy (HCC) (Primary Dx); Moderate persistent asthma with exacerbation; Multiple open wounds of foot Alcohol-induced poly neuropathy (HCC) (Primary Dx); Moderate persistent asthma with exacerbation; Multiple open wounds of foot; Moderate episode of recurrent major depressive disorder (HCC) Start: 04-25-2023 Refill Vanessa Booth MD Work Phone: [facility] Start: 04-21-2023 End: 04-21-2023 Emergency department patient visit VANESSA BOOTH Facility:[id number] Start: 04-11-2023 End: 04-11-2023 Emergency department patient visit VANESSA BOOTH Facility:[id number] Start: 04-08-2023 End: 04-08-2023 Emergency department patient visit ADRIENNE DELEON MD~[id number] [facility] Start: 04-07-2023 End: 04-07-2023 Emergency department patient visit ED Doctor Facility:[facility] Start: 04-07-2023 End: 04-07-2023 Emergency department patient visit [facility] Work Phone: [facility] Start: 04-02-2023 End: 04-02-2023 Emergency department patient visit Zachary Armenta Facility:[facility] Start: 04-02-2023 End: 04-02-2023 Emergency department patient visit [facility] Work Phone: [facility] Start: 03-21-2023 End: 03-21-2023 Office outpatient visit 25 minutes Vanessa Booth MD Work Phone: [facility] Comment on above: ETOH abuse (Primary Dx); Anxiety; Moderate persistent asthma with exacerbation; Alcohol-induced polyneuropathy (HCC); Weakness of both lower extremities; Acquired hypothyroidism; Polycythemia; Morbid obesity with body mass index (BMI) of 50.0 to 59.9 in adult (HCC) Start: 03-18-2023 End: 03-18-2023 Emergency department patient visit NO PCP AA NO PCP [facility] Start: 03-08-2023 End: 03-13-2023 Evaluation and management of inpatient [facility] Start: 11-02-2022 End: 11-03-2022 ambulatory NO PCP AA NO PCP [facility] Start: 10-26-2022 End: 10-27-2022 Emergency department patient visit TIFFANY [facility] Start: 10-26-2022 End: 10-26-2022 Subsequent hospital visit by physician Padmaja Ecg [facility] Comment on above: Arrived Start: 10-04-2022 End: 10-04-2022 Emergency department patient visit [facility] Procedures Date Procedure Procedure Detail Performing Clinician Start: 11-13-2024 Methadone measurement, urine Dr. Amari Nicholas DO Work Phone: Start: 11-13-2024 Radex ankle complete minimum [address] Amari Nicholas DO Work Phone: Start: 11-11-2024 Plain chest X-ray Dr. Amarjit Nicholas DO Work Phone: Start: 10-30-2024 GOLD TOP TUBE Josef B Vancourt DPM Work Phone: Start: 10-30-2024 Gonadotropin chorion ic qualitative Josef Romeo Tobias HYDRANT SETTER-AIRPORT CONTROL OPERATOR Work Phone: Start: 10-30-2024 LT BLUE TOP TUBE Josef B Vancourt DPM Work Phone: Start: 10-30-2024 MINT GREEN TOP TUBE Adam darien Elis Vancourt DPM Work Phone: Start: 10-30-2024 EXTRA MICRO Josef B V ancourt DPM Work Phone: Start: 10-30-2024 End: 10-30-2024 Iadna tani species direct probe tq Josef B Vancourt DPM Work Phone: Start: 10-30-2024 Urnls dip stick/tabl et rgnt auto w/o microscopy Josef B Vancourt DPM Work Phone: Start: 10-29-2024 Ct abdomen & pelvis w/contrast material Eros Davila DO Work Phone: Start: 10-29-2024 End: 10-29-2024 Iadna tani species direct probe tq Eros Davila DO Work Phone: Start: 10-29-2024 Urnls dip stick/tabl et rgnt auto w/o microscopy Eros Davila DO Work Phone: Start: 10-29-2024 Comprehensive metabo lic panel Eros Davila DO Work Phone: Start: 10-05-2024 End: 10-05-2024 Iadna tani species direct probe tq Alexi Sotelo MD Work Phone: Start: 10-05-2024 Assay of ethanol Alexi Sotelo MD Work Phone: Start: 10-05-2024 Comprehensive metabo lic panel Alexi Sotelo MD Work Phone: Start: 10-05-2024 Drug tst prsmv instr mnt chem analyzers pr date Alexi Sotelo MD Work Phone: Start: 10-05-2024 Urnls dip stick/tabl et rgnt auto w/o microscopy Alexi Sotelo MD Work Phone: Start: 10-03-2024 CBC W Auto Different ial panel - Blood Savannah Garcia DO Work Phone: Start: 10-03-2024 Comprehensive metabo lic panel Savannah Garcia DO Work Phone: Start: 10-03-2024 Ethanol [Mass/volume ] in Serum or Plasma Savannah Garcia DO Work Phone: Start: 09-26-2024 Electrocardiogram Gener ic [facility] Work Phone: Start: 09-26-2024 Urnls dip stick/tabl et reagent auto microscopy Shubham Currie MD Work Phone: Start: 09-25-2024 Complete blood count with white cell differential, manual Shubham Currie MD Work Phone: Start: 09-25-2024 Comprehensive metabo lic panel Shubham Currie MD Work Phone: Start: 09-24-2024 Blood ethanol measurement Oralia Mike PA-C Work Phone: Start: 09-24-2024 Complete blood count with white cell differential, manual Oralia Mike PA-C Work Phone: Start: 09-24-2024 Comprehensive metabo lic panel Oralia Mike PA-C Work Phone: Start: 09-24-2024 Hepatic function panel Oralia Murphyjigar PA-C Work Phone: Start: 09-24-2024 Ecg routine ecg w/le ast 12 lds w/i&r Oralia Lopez Amrekha LLANOS-C Work Phone: Start: 08-12-2024 EXTRA MICRO Kvng estrada HYDRANT SETTER-AIRPORT CONTROL OPERATOR Work Phone: Start: 08-12-2024 URINALYSIS REFLEX TO CULTURE Kvng Garcia HYDRANT SETTER-AIRPORT CONTROL OPERATOR Work Phone: Start: 08-12-2024 Urnls dip stick/tabl et reagent auto microscopy Kvng Garcia HYDRANT SETTER-AIRPORT CONTROL OPERATOR Work Phone: Start: 08-12-2024 POCT RAPID ANTIBODY TEST (ORAQUICK) HIV-1/2 Juanita Hugo MD Work Phone: Start: 08-12-2024 Radiologic exam ches t 2 views Kvng Garcia HYDRANT SETTER-AIRPORT CONTROL OPERATOR Work Phone: Start: 08-12-2024 ALCOHOL (ETHANOL),BLOOD Kvng Garcia HYDRANT SETTER-AIRPORT CONTROL OPERATOR Work Phone: Start: 08-12-2024 Assay of lipase Kvng Garcia HYDRANT SETTER-AIRPORT CONTROL OPERATOR Work Phone: Start: 08-12-2024 CBC AND ELECTRONIC DIFF Kvng Garcia HYDRANT SETTER-AIRPORT CONTROL OPERATOR Work Phone: Start: 08-12-2024 Complete blood count with white cell differential, automated Kvng Garcia HYDRANT SETTER-AIRPORT CONTROL OPERATOR Work Phone: Start: 08-12-2024 GOLD TOP TUBE Kvng Garcia HYDRANT SETTER-AIRPORT CONTROL OPERATOR Work Phone: Start: 08-12-2024 Hepatic function panel Kvng Garcia HYDRANT SETTER-AIRPORT CONTROL OPERATOR Work Phone: Start: 08-12-2024 LAVENDER TOP TUBE Jeanettepacheco Garcia HYDRANT SETTER-AIRPORT CONTROL OPERATOR Work Phone: Start: 08-12-2024 LT BLUE TOP TUBE Kvng Garcia HYDRANT SETTER-AIRPORT CONTROL OPERATOR Work Phone: Start: 08-12-2024 MINT GREEN TOP TUBE Mar Garcia HYDRANT SETTER-AIRPORT CONTROL OPERATOR Work Phone: Start: 08-12-2024 RAINBOW DRAW Kvng estrada HYDRANT SETTER-AIRPORT CONTROL OPERATOR Work Phone: Start: 08-12-2024 Thyrotropin [Units/v olume] in Serum or Plasma Jumana Bridenthal HYDRANT SETTER - [employer]PORT CONTROL OPERATOR Work Phone: Start: 08-03-[address] Vanessa Booth MD Work Phone: Start: 08-03-2024 Methadone measurement, urine Dr. Vanessa Booth MD Work Phone: Start: 08-03-2024 Urnls dip stick/tabl et reagent auto microscopy Dr. Vanessa Booth MD Work Phone: Start: 08-03-[address] Bull AZAR Work Phone: Start: 08-03-2024 Plain chest X-ray Dr. Amarjit Booth MD Work Phone: Start: 07-14-2024 Methadone measurement, urine Dr. Vanessa Booth MD Work Phone: Start: 07-14-2024 Urnls dip stick/tabl et reagent auto microscopy Dr. Vanessa Booth MD Work Phone: Start: 07-14-2024 X-ray of chest, PA a nd lateral views Dr. Vanessa Booth MD Work Phone: Start: 07-14-[address] Vanessa Booth MD Work Phone: Start: 07-09-2024 Urine test visual color cmprsn meths Jumana Bridenthal HYDRANT SETTER - [employer]PORT CONTROL OPERATOR Work Phone: Start: 06-13-[address] Vanessa Booth MD Work Phone: Start: 06-02-2024 Methadone measurement, urine Dr. Vanessa Booth MD Work Phone: Start: 06-02-2024 Urnls dip stick/tabl et reagent auto microscopy Dr. Vanessa Booth MD Work Phone: Start: 03-23-2024 Measurement of 3,4-methylenedioxymethamphet amine in urine Dr. Vanessa Booth MD Work Phone: Start: 03-23-2024 Methadone measurement, urine Dr. Vanessa Booth MD Work Phone: Start: 03-23-[address] Vanessa Booth MD Work Phone: Start: 03-23-2024 Measurement of renal function Dr. Vanessa Booth MD Work Phone: Comment on above: GFR Calc Start: 03-23-[address] Vanessa Booth MD Work Phone: Comment on above: The serum:whole bloo d ethanol ratio is approximately 1.14and varies slightly with hematocrit. Medical Alcohol reference interval and critical value innon-tolerant individuals; 50 - 100 Impairment 100 Intoxication 100 - 250 Severe Poisoning 250 - 400 Deep/possible fatal coma Start: 01-09-2024 Polymerase chain colin ction analysis Dr. aVnessa Booth MD Work Phone: Start: 09-02-2023 Urnls dip stick/tabl et reagent auto microscopy Billie Spears DO Work Phone: Start: 09-02-2023 SARS-CoV-2 (COVID-19 ) Ag [Presence] in Respiratory specimen by Rapid immunoassay Billie Spears DO Work Phone: Start: 09-02-2023 Comprehensive metabo lic panel Billie Spears [employer] Work Phone: Start: 09-02-2023 End: 09-02-2023 Drug test def 1-7 classes Billie Shaw ch DO Work Phone: Start: 06-28-2023 Lipid 1996 panel - S pamela or Plasma Billie Spears DO Work Phone: Start: 03-21-2023 Thyrotropin [Units/v olume] in Serum or Plasma Vanessa Booth MD Work Phone: Start: 10-26-2022 Ecg [...] for Adults (1 - 1-dose 75+ series) [facility] Start: 2059 RSV Immunization age d 60 or older (1 - 1-dose 60+ series) RSV Immunization aged 60 or older (1 - 1-dose 60+ series) [facility] Start: 10-05-2049 Zoster Vaccines (1 of 2) Zoste r Vaccines (1 of 2) [facility] Start: 09-30-2031 DTaP,Tdap,and Td Vac cines (7 - Td or Tdap) DTaP,Tdap,and Td Vaccines (7 - Td or Tdap) [facility] Start: 09-30-2031 DTaP/Tdap/Td vaccine (3 - Td or Tdap) DTaP/Tdap/Td vaccine (3 - Td or Tdap) [facility] Start: 09-30-2031 DTaP/Tdap/Td vaccine (7 - Td or Tdap) DTaP/Tdap/Td vaccine (7 - Td or Tdap) [facility] Start: 09-30-2031 DTaP/Tdap/Td Vaccine s (7 - Td or Tdap) DTaP/Tdap/Td Vaccines (7 - Td or Tdap) [facility] Start: 09-30-2031 Tetanus vaccination TETANUS [facility] Start: 09-30-2031 Urine microalbumin profile DTa P,Tdap,Td Vaccine (7 - Td or Tdap) [facility] Start: 06-27-2028 Lipid panel [facility] Start: 10-03-2025 Hypertension/CHF/CAD Annual BMP Blood Test Hypertension/CHF/CAD Annual BMP Blood Test [facility] Start: 09-27-2025 Hypertension/CHF/CAD Annual BMP Blood Test Hypertension/CHF/CAD Annual BMP Blood Test [facility] Start: 08-12-2025 Thyroid stimulating hormone measurement TSH Level [facility] Start: 01-09-2025 Depression Monitoring Depression [facility] Start: 11-14-2024 Suicide precautions [facility] Start: 11-14-2024 [facility] Start: 11-14-2024 End: 11-14-2024 [facility] Start: 11-13-2024 Suicide precautions [facility] Start: 11-13-2024 [facility] Start: 11-13-2024 Radex ankle complete minimum 3 views Ankle min 3 Views [facility] Start: 11-13-2024 End: 11-13-2024 Emergency department patient visit [facility] -Emergency Department Work Phone: Start: 11-11-2024 [facility] Start: 10-14-2024 COVID-19 Vaccine ( season) COVID-19 Vaccine ( season) [facility] Start: 10-14-2024 Influenza vaccination [facility] Start: 09-28-2024 HIV screening HIV Screening [facility] Start: 09-28-2024 Social Influencers o f Health Screening Social Influencers of Health Screening [facility] Start: 09-24-2024 End: 09-24-2024 Patient encounter procedure 09/24/2024 2:20 PM EDT Office Visit [facility] [address] [place] [address] [place] [address] Jumana Kathleen, HYDRANT SETTER - AIRPORT CONTROL OPERATOR [address] [place] [id number] [facility] Start: 09-13-2024 Influenza vaccination Flu vaccine (# 1) [facility] Start: 08-04-2024 [facility] Start: 07-14-2024 [facility] Start: 07-14-2024 [facility] Start: 07-14-2024 Consultation [facility] Start: 06-27-2024 COVID-19 Vaccine ( season) COVID-19 Vaccine ( season) [facility] Comment on above: Postponed from 10/14 (Patient Refused) Start: 06-27-2024 Hepatitis C screening Hepatitis C Sc reening [facility] Comment on above: Postponed from 10/05 (Patient Refused) Start: 06-27-2024 HPV Vaccines (1 - 3- dose series) HPV Vaccines (1 - 3-dose series) [facility] Comment on above: Postponed from 10/05 (Patient Refused) Start: 06-27-2024 Pneumococcal Vaccine : Pediatrics (0 to 5 Years) and At-Risk Patients (6 to 49 Years) (1 of 2 - PCV) Pneumococcal Vaccine: Pediatrics (0 to 5 Years) and At-Risk Patients (6 to 49 Years) (1 of 2 - PCV) [facility] Comment on above: Postponed from 10/05 (Patient Refused) Start: 06-27-2024 Pneumococcal Vaccine : Pediatrics (0 to 5 Years) and At-Risk Patients (6 to 64 Years) (1 of 2 - PCV) Pneumococcal Vaccine: Pediatrics (0 to 5 Years) and At-Risk Patients (6 to 64 Years) (1 of 2 - PCV) [facility] Comment on above: Postponed from 10/05 (Patient Refused) Start: 06-13-2024 Drug tst prsmv instr mnt chem analyzers pr date DRUG TEST PRSMV CHEM ANLYZR [facility] Start: 06-13-2024 [facility] Start: 06-13-2024 [facility] Start: 06-13-2024 [facility] Start: 06-02-2024 [facility] Start: 06-02-2024 Gonadotropin chorion ic qualitative CHORIONIC GONADOTROPIN ASSAY [facility] Start: 05-05-2024 [facility] Start: 04-28-2024 [facility] Start: 04-25-2024 End: 04-25-2024 [facility] Start: 04-08-2024 BP Controlled (<130/80) BP Controlle d (<130/80) [facility] Start: 03-23-2024 [facility] Start: 03-23-2024 Insj non-ndwellg jelly dder catheter INSERT BLADDER CATHETER [facility] Start: 03-23-2024 [facility] Start: 03-23-2024 Consultation [facility] Start: 03-21-2024 Thyroid stimulating hormone measurement TSH Level [facility] Start: 02-14-2024 Depression Screening Depression [facility] Start: 01-24-2024 Lipid panel Lipid Panel [facility] Start: 01-10-2024 Patient discharge [facility] Start: 01-08-2024 Ambulation without limitation [facility] Start: 01-08-2024 Assessment of risk o f venous thromboembolism [facility] Start: 01-08-2024 Insertion of cathete r into peripheral vein [facility] Start: 01-08-2024 Oxygen therapy [facility] Start: 01-08-2024 Providing care accor ding to standard [facility] Start: 01-08-2024 Referral to service [facility] Start: 01-08-2024 [facility] Start: 01-08-2024 Admission procedure [facility] Start: 01-08-2024 Consultation [facility] Start: 01-08-2024 Patient referral to dietitian [facility] Start: 12-29-2023 Depression Monitoring Depression [facility] Start: 10-15-2023 COVID-19 Vaccine ( season) COVID-19 Vaccine ( season) [facility] Start: 10-15-2023 Influenza vaccination [facility] Start: 09-19-2023 Depression Monitoring Depression [facility] Start: 09-19-2023 [facility] Start: 09-04-2023 End: 09-04-2023 Patient encounter procedure 09/04/2023 10:00 AM EDT Office Visit [facility] [address] [place] [address] Vanessa Booth MD [address] [place] [address] [place] [address] [facility] Start: 06-28-2023 End: 06-27-2024 Comprehensive metabolic 1998 panel - Serum or Plasma Comprehensive metabolic panel Lab Routine Screening for diabetes mellitus Expected: 06/28/2023 (Approximate), Expires: 06/27/2024 [facility] Work Phone: Comment on above: Expected: 06/28/2023 (Approximate), Expires: 06/27/2024 Start: 06-28-2023 End: 06-27-2024 Lipid 1996 panel - Serum or Plasma Lipid panel Lab Routine Screening for lipid disorders Expected: 06/28/2023 (Approximate), Expires: 06/27/2024 [facility] Comment on above: Expected: 06/28/2023 (Approximate), Expires: 06/27/2024 Start: 06-28-2023 End: 06-27-2024 Misc STAT ([facility]) Misc STAT ([facility]) Lab Routine Controlled drug dependence (HCC) Expected: 06/28/2023 (Approximate), Expires: 06/27/2024 [facility] Comment on above: Expected: 06/28/2023 (Approximate), Expires: 06/27/2024 Start: 06-28-2023 End: 06-28-2023 Patient encounter procedure 06/28/2023 9:45 AM EDT Office Visit [facility] [address] [place] [address] Vanessa Booth MD [address] [place] [address] [place] [address] [facility] Start: 05-23-2023 End: 05-23-2023 Patient encounter procedure 05/23/2023 2:00 PM EDT Office Visit [facility] [address] [facility] [place] [address] [place] [address] Vanessa Booth MD [address] [facility] [place] [address] [facility] Start: 05-05-2023 End: 05-05-2023 Clinical Support 05/05/2023 10:30 AM EDT Clinical Support [facility] [address] [facility] [place] [address] [place] [address] [facility] Start: 04-18-2023 End: 04-18-2023 Patient encounter procedure 04/18/2023 2:00 PM EST Office Visit [facility] [address] [facility] [place] [address] [place] [address] Vanessa Booth MD [address] [facility] [place] [address] [place] [address] [facility] Start: 03-28-2023 End: 03-28-2023 Clinical Support 03/28/2023 11:00 AM EST Clinical Support [facility] [address] [facility] [place] [address] [place] [address] [facility] Start: 03-21-2023 End: 03-21-2024 CBC W Auto Differential panel - Blood CBC auto differential Lab Routine Polycythemia Expected: 03/21/2023 (Approximate), Expires: 03/21/2024 [facility] Work Phone: Comment on above: Expected: 03/21/2023 (Approximate), Expires: 03/21/2024 Start: 03-21-2023 End: 03-21-2024 Comprehensive metabolic 1998 panel - Serum or Plasma Comprehensive metabolic panel Lab Routine ETOH abuse Expected: 03/21/2023 (Approximate), Expires: 03/21/2024 [facility] Comment on above: Expected: 03/21/2023 (Approximate), Expires: 03/21/2024 Start: 03-21-2023 End: 03-21-2024 Thyrotropin [Units/volume] in Serum or Plasma TSH Lab Routine Acquired hypothyroidism Expected: 03/21/2023 (Approximate), Expires: 03/21/2024 [facility] Comment on above: Expected: 03/21/2023 (Approximate), Expires: 03/21/2024 Start: 03-21-2023 End: 03-21-2024 Thyroxine (T4) free [Mass/volume] in Serum or Plasma T4, free Lab Routine Acquired hypothyroidism Expected: 03/21/2023 (Approximate), Expires: 03/21/2024 [facility] Comment on above: Expected: 03/21/2023 (Approximate), Expires: 03/21/2024 Start: 03-21-2023 End: 03-21-2024 Triiodothyronine (T3) Free [Mass/volume] in Serum or Plasma T3, free Lab Routine Acquired hypothyroidism Expected: 03/21/2023 (Approximate), Expires: 03/21/2024 [facility] Comment on above: Expected: 03/21/2023 (Approximate), Expires: 03/21/2024 Start: 02-13-2023 Behavioral Health Screening Behavioral Health Screening [facility] Start: 10-14-2022 Covid-19 Vaccine ( season) Covid-19 Vaccine ( season) [facility] Start: 10-14-2022 Influenza vaccination Influenza Vacc ine (#1) [facility] Start: 10-05-2020 Screening for malign ant neoplasm of cervix [facility] Start: 10-05-2018 Hepatitis A Vaccines (1 of 2 - Risk 2-dose series) Hepatitis A Vaccines (1 of 2 - Risk 2-dose series) [facility] Start: 10-05-2018 Pneumococcal 0-49 ye ars Vaccine (1 of 2 - PCV) Pneumococcal 0-49 years Vaccine (1 of 2 - PCV) [facility] Start: 10-05-2018 PNEUMOCOCCAL VACCINE SERIES (1 of 2 - PCV) PNEUMOCOCCAL VACCINE SERIES (1 of 2 - PCV) [facility] Start: 10-05-2018 Pneumococcal Vaccine : Pediatrics (0 to 5 Years) and At-Risk Patients (6 to 49 Years) (1 of 2 - PCV) Pneumococcal Vaccine: Pediatrics (0 to 5 Years) and At-Risk Patients (6 to 49 Years) (1 of 2 - PCV) [facility] Start: 10-05-2017 Annual PCP Team Bridge Game Director yolande Disease Visit Annual PCP Team Chronic Disease Visit [facility] Start: 10-05-2017 GC (Gonorrhea) Scree yelitza (18-24) GC (Gonorrhea) Screening () [facility] Start: 10-05-2017 Hepatitis C screening [facility] Start: 10-05-2017 HIV screening HIV Screening [facility] Start: 10-05-2017 Screening for Chlamy yary trachomatis Chlamydia Screening () [facility] Start: 2015 Meningococcal B Vacc ine: Consider Based On Risk (1 of 2 - Patient Seeks Protection) Meningococcal B Vaccine: Consider Based On Risk (1 of 2 - Patient Seeks Protection) [facility] Start: 2015 Screening for Chlamy yary trachomatis CHLAMYDIA SCREEN [facility] Start: 10-05-2014 HIV screening HIV SCREENING DISCUSSION [facility] Start: 10-05-2014 HPV Vaccine (1 - 3-d ose series) HPV Vaccine (1 - 3-dose series) [facility] Start: 10-05-2014 HPV Vaccines (1 - 3- dose series) HPV Vaccines (1 - 3-dose series) [facility] Start: 10-05-2014 Vaccination for angelina n papillomavirus HPV VACCINE ADOL (1 - 3-dose series) [facility] Start: 10-05-2013 Peds To Adult Transi tion Annual Assessment Peds To Adult Transition Annual Assessment [facility] Start: 10-05-2012 Varicella vaccination Varicell a Vaccines (1 of 2 - 13+ 2-dose series) [facility] Start: 2011 Depression Screen Depression Screen [facility] Start: 2011 Depression Screening Depression Scre ening [facility] Start: 2011 Peds To Adult Transi tion Initial Discussion Peds To Adult Transition Initial Discussion [facility] Start: 10-05-2010 HPV Vaccines (1 - 2- dose series) HPV Vaccines (1 - 2-dose series) [facility] Start: 10-05-2005 Pneumococcal vaccination Pneum ococcal Vaccine (1 of 2 - PCV) [facility] Start: 10-05-2005 Pneumococcal Vaccine : Pediatrics (0 to 5 Years) and At-Risk Patients (6 to 49 Years) (1 of 1 - PPSV23) Pneumococcal Vaccine: Pediatrics (0 to 5 Years) and At-Risk Patients (6 to 49 Years) (1 of 1 - PPSV23) [facility] Start: 10-05-2005 Pneumococcal Vaccine : Pediatrics (0 to 5 Years) and At-Risk Patients (6 to 64 Years) (1 - PCV) Pneumococcal Vaccine: Pediatrics (0 to 5 Years) and At-Risk Patients (6 to 64 Years) (1 - PCV) [facility] Start: 10-05-2005 Pneumococcal Vaccine : Pediatrics (0 to 5 Years) and At-Risk Patients (6 to 64 Years) (1 of 2 - PCV) Pneumococcal Vaccine: Pediatrics (0 to 5 Years) and At-Risk Patients (6 to 64 Years) (1 of 2 - PCV) [facility] Start: 11-08-2004 Varicella vaccination Varicell a Vaccines (1 of 2 - 2-dose childhood series) [facility] Start: 2003 IPV Vaccines (4 of 4 - 4-dose series) IPV Vaccines (4 of 4 - 4-dose series) [facility] Start: 2003 Polio vaccine (4 of 4 - 4-dose series) Polio vaccine (4 of 4 - 4-dose series) [facility] Start: 04-07-2000 COVID-19 Vaccine (#1) COVID-19 Vacci ne (#1) [facility] Start: 1999 Screening for Chlamy yary trachomatis [facility] Start: 1999 Thyroid stimulating hormone measurement TSH Level [facility] Alanine aminotransfe rase [Enzymatic activity/volume] in Serum or Plasma [facility] Albumin [Mass/volume ] in Serum or Plasma [facility] Alkaline phosphatase [Enzymatic activity/volume] in Serum or Plasma [facility] Anion gap in Serum o r Plasma [facility] End: 10-30-2024 Bacteria identified in Urine by Culture [facility] Comment on above: One Time for 1 Occur rences starting 10/30/2024 until 10/30/2024 Bilirubin, total measurement [facility] BUN/Creatinine ratio [facility] C.trachomatis N.gonorrhoeae DNA (Cervical or Vaginal Swab) C.trachomatis N.gonorrhoeae DNA (Cervical or Vaginal Swab) Microbiology Stat [employer] Label print 10/05/2024 7:02 PM EDT [facility] Calcium [Mass/volume ] in Serum or Plasma [facility] Carbon dioxide, tota l [Moles/volume] in Central venous blood [facility] End: 10-30-2024 Chlamydia trachomatis+Neisseria gonorrhoeae DNA [Presence] in Unspecified specimen by Probe with signal amplification [facility] Work Phone: Comment on above: One Time for 1 Occur rences starting 10/30/2024 until 10/30/2024 Choriogonadotropin.b eta subunit ( test) [Presence] in Serum or Plasma [facility] Creatinine [Mass/vol ume] in Serum or Plasma [facility] End: 10-05-2024 Culture, Urine [facility] Work Phone: Comment on above: Once for 1 Occurrenc es starting 10/05/2024 until 10/05/2024 Ethanol [Mass/volume ] in Serum or Plasma [facility] Glucose [Mass/volume ] in Serum or Plasma [facility] End: 10-30-2024 LAVENDER TOP TUBE LAVENDER TOP TUBE Lab Routine Once for 1 Occurrences starting 10/30/2024 until 10/30/2024 [facility] Comment on above: Once for 1 Occurrenc es starting 10/30/2024 until 10/30/2024 Measurement of renal function [facility] Patient Education [facility] Work Phone: Patient referral [facility] Work Phone: Potassium measurement [facility] End: 10-30-2024 RAINBOW DRAW [facility] Comment on above: One Time for 1 Occur rences starting 10/30/2024 until 10/30/2024 Serum chloride measurement [facility] Sodium measurement [facility] End: 08-12-2024 Standard ECG [facility] Comment on above: One Time for 1 Occur rences starting 08/12/2024 until 08/12/2024 Total protein measurement [facility] End: 10-30-2024 Treponema pallidum Ab [Presence] in Serum [facility] Comment on above: One Time for 1 Occur rences starting 10/30/2024 until 10/30/2024 Urea nitrogen [Mass/volume] in Serum or Plasma [facility] Immunizations Immunization Date Immunization Notes Care Provider Fa leilaty 09-29-2021 tetanus toxoid, redu lalito diphtheria toxoid, and acellular pertussis vaccine, adsorbed [facility] 09-12-2012 tetanus toxoid, redu lalito diphtheria toxoid, and acellular pertussis vaccine, adsorbed [facility] 10-11-2004 measles, mumps and r ubella virus vaccine [facility] 06-22-2001 diphtheria, tetanus toxoids and acellular pertussis vaccine, unspecified formulation Vanessa Booth MD Work Phone: [facility] 01-20-2001 measles, mumps and r ubella virus vaccine [facility] 01-20-2001 pneumococcal conjuga te vaccine, 7 valent Vanessa Booth MD Work Phone: [facility] 10-11-2000 hepatitis B vaccine, adult dosage [facility] 10-11-2000 zoster vaccine recombinant [facility] 07-20-2000 pneumococcal conjuga te vaccine, 7 valent Vanessa Booth MD Work Phone: [facility] 07-20-2000 poliovirus vaccine, inactivated Vanessa Booth MD Work Phone: [facility] 07-20-2000 poliovirus vaccine, unspecified formulation Vanessa Booth MD Work Phone: [facility] 04-21-2000 diphtheria, tetanus toxoids and acellular pertussis vaccine, unspecified formulation Vanessa Booth MD Work Phone: [facility] 04-21-2000 hepatitis B vaccine, adult dosage [facility] 02-25-2000 diphtheria, tetanus toxoids and acellular pertussis vaccine, unspecified formulation Vanessa Booth MD Work Phone: [facility] 02-25-2000 poliovirus vaccine, inactivated Vanessa Booth MD Work Phone: [facility] 1999 diphtheria, tetanus toxoids and acellular pertussis vaccine, unspecified formulation Vanessa Booth MD Work Phone: [facility] 1999 poliovirus vaccine, inactivated Vanessa Booth MD Work Phone: [facility] 1999 hepatitis B vaccine, adult dosage Ach Ecg [facility] Payers Date Payer Category Payer Medicaid (Managed Care) 1.2. [id number] 2023 Self-pay 2022 Medicaid [id number] 2022 Medicaid HMO [facility] MEDICAID ODM [id number] 1999 Unknown [id number] 2.16.840.1.851037.3.579.2. 598 1999 Unknown [id number] 2.16.840.1.716801.3.579.2. 598 1999 Unknown [id number] 2.16.840.1.340969.3.579.2. 598 1999 Unknown [id number] 2.16.840.1.826766.3.579.2. 598 1999 Unknown [id number] 2.16.840.1.329550.3.579.2. 598 1999 Unknown [id number] 2.16.840.1.828475.3.579.2. 598 1999 Unknown [id number] 2.16.840.1.524726.3.579.2. 627 1999 Unknown [id number] 2.16.840.1.113570.3.579.2. 627 1999 Unknown [id number] 2.16.840.1.097307.3.579.2. 1143 1999 Unknown [id number] 2.16.840.1.365666.3.579.2. 1143 1999 Unknown [id number] 2.16.840.1.950338.3.579.2. 900 1999 Unknown [id number] 2.16.840.1.434826.3.579.2. 902 1999 Unknown [id number] 2.16.840.1.206047.3.579.2. 902 1999 Unknown [id number] 2.16.840.1.701182.3.579.2. 902 1999 Unknown [id number] 2.16.840.1.948727.3.579.2. 176 1999 Unknown [id number] 2.16.840.1.375939.3.579.2. 176 1999 Unknown [id number] 2.16.840.1.225837.3.579.2. 594 1999 Unknown [id number] 2.16.840.1.376177.3.579.2. 594 1999 Unknown [id number] 2.16.840.1.352905.3.579.2. 594 1959 Medicaid [id number] Unknown [id number] 2.16.840.1.989448.3.579.2. 921 Unknown [id number] 2.16.840.1.352202.3.579.2. 921 Unknown [id number] 2.16.840.1.094310.3.579.2. 462 Unknown [id number] 2.16.840.1.733043.3.579.2. 462 Unknown [id number] 2.16.840.1.939035.3.579.2. 462 Unknown [id number] 2.16.840.1.160648.3.579.2. 462 Unknown [id number] 2.840.1.635628.3.579.2. 462 Unknown [id number] 2.840.1.881402.3.579.2. 462 Unknown [id number] 2.840.1.083772.3.579.2. 462 Unknown [id number] 2.840.1.337387.3.579.2. 462 Unknown [id number] 2.840.1.001690.3.579.2. 462 Unknown [id number] 2.840.1.974325.3.579.2. 462 Unknown [id number] 2.840.1.933427.3.579.2. 462 Unknown [id number] 2.840.1.642029.3.579.2. 462 Unknown [id number] 2.840.1.378381.3.579.2. 462 Unknown [id number] 2.840.1.734352.3.579.2. 462 Unknown [id number] 2.16.840.1.897777.3.579.2. 462 Unknown [id number] 2.16.840.1.184976.3.579.2. 462 Unknown [id number] 2.16840.1.791056.3.579.2. 462 Unknown [id number] 2.840.1.812370.3.579.2. 462 Unknown [id number] 2.16.840.1.942164.3.579.2. 462 Unknown [id number] 2.16.840.1.966819.3.579.2. 462 Unknown [id number] 2.16.840.1.175813.3.579.2. 462 Unknown [id number] 2.16.840.1.696399.3.579.2. 462 Unknown [id number] 2.16.840.1.631139.3.579.2. 462 Unknown [id number] 2.16.840.1.139769.3.579.2. 462 Unknown [id number] 2.16.840.1.945438.3.579.2. 462 Social History Date Type Detail Facility Start: 04-25-2024 End: 11-13-2024 Tobacco smoking status [facility] Occasional tobacco smoker [facility] Start: 04-17-2023 End: 11-13-2022 History of tobacco use Cigarette Smoker [facility] Start: 02-01-2022 End: 10-29-2024 Alcohol intake Current drinker of alcohol (finding) [facility] Start: 10-26-2022 End: 08-23-2024 History of Social function [facility] Start: 10-26-2022 End: 08-23-2024 Alcohol Use Disorder Identification Test - Consumption [AUDIT-C] [facility] How often to you hav e a drink containing alcohol? Monthly or less [facility] How many standard dr inks containing alcohol do you have on a typical day? 3 or 4 [facility] How often do you hav e 6 or more drinks on 1 occasion? Less than monthly [facility] Start: 1999 Sex Assigned At Female S [facility] Start: 05-27-2020 Gender identity Identifies as female gender (finding) [facility] Start: 05-27-2020 Sexual orientation Bisexual (finding ) [facility] Start: 10-16-2022 End: 10-26-2022 Exposure to SARS-CoV-2 (event) Not sure [facility] Start: 03-14-2023 End: 07-14-2024 Tobacco smoking status NHIS Ex-smoker [facility] End: 11-13-2022 History of tobacco use Current smoker [facility] Start: 03-14-2023 End: 08-23-2024 Tobacco use and exposure Smokeless tobacco non-user [facility] Start: 03-21-2023 End: 10-30-2024 Alcohol intake Ex-drinker (finding) [facility] Adolescent depressio n screening assessment 17 [facility] Start: 04-02-2023 Tobacco smoking stat us NHIS Never smoked tobacco (finding) [facility] Start: 04-02-2023 Yes [facility] Start: 04-07-2023 End: 08-23-2024 Tobacco smoking status NHIS Smokes tobacco daily (finding) [facility] (I/We) worried wheth er (my/our) food would run out before (I/we) got money to buy more. Sometimes true [facility] In the past 12 month s, was there a time when you were not able to pay the mortgage or rent on time? No [facility] Start: 06-08-2023 Alcohol Comment relapsed, was drinking past few days [facility] Start: 2000 Sex Assigned At Not on file C [facility] Sex Assigned At Sex [facility] Start: 09-13-2021 End: 08-12-2024 Sex Female (finding) [facility] Start: 08-12-2024 Alcohol Comment none for 2 weeks [facility] Has the [employer], WAYN, No [employer], or water company threatened to shut off services in your home in past 12Mo Yes [facility] The food that (I/we) bought just didn't last, and (I/we) didn't have money to get more. Often true [facility] Start: 10-03-2024 Alcohol Comment 1-3 pints per day Tr [facility] [employer] How hard is it for y ou to pay for the very basics like food, housing, medical care, and heating Somewhat hard [employer] (I/We) worried wheth er (my/our) food would run out before (I/we) got money to buy more. Never true [facility] [employer] How often to you hav e a drink containing alcohol? 4 or more times a week [employer] How many standard dr inks containing alcohol do you have on a typical day? 10 or more [employer] How often do you hav e 6 or more drinks on 1 occasion? Daily or almost daily [employer] How often to you hav e a drink containing alcohol? 2-4 times a month [employer] How many standard dr inks containing alcohol do you have on a typical day? 1 or 2 [employer] How often do you hav e 6 or more drinks on 1 occasion? Never [employer] Start: 08-23-2024 Alcohol Comment sober since 07/2024 [facility] NEGATED: Highlighted row [facility] NEGATED: Highlighted row Not [facility] Goals Date Patient Goal Desired Activity /State Personal health goal Comment on above: Formatting of this n ote might be different from the original. Self-Management Plan: Anxiety/Depression Patient Stated Goal: To feel less anxious and depressed. Barriers to success: stress Plan for overcoming my barriers: Start taking medication as prescribed. Encouraged and recommended by provider. Confidence: 06/22 Date goal set: 12/12/18 Patient given educational materials below via AVS. Patient received counseling about current lifestyle goal. Patient was encouraged to take medications as prescribed. Discussed the importance of counseling. Discussed social support resources. Discussed potentially disabling symptoms of their anxiety/depression, which could potentially render them unable to function adequately. Provider Goal: To find the value of finding pleasure in daily living. Discussed how relationships, personal fulfillment, and optimism can work together to combat anxiety/depression. Patient given after visit summary which includes educational information on Lexapro. Discussed use, benefit, and side effects of prescribed medications and barriers to medication compliance addressed, if applicable. All patient questions answered and patient voiced understanding. Patient was given a copy of this, and was advised to call if any questions. Personal health goal Comment on above: Formatting of this n ote might be different from the original. Self- Management Plan: Obesity/Weight Loss Patient Stated Goal: Would like to lose at least 200 pounds Barriers to success: fear of failure, lack of motivation, financial, lack of support, overwhelmed by complexity of regimen, stress, time constraints, medication side effects and lack of education Plan for overcoming my barriers: Take her medication stay positive. Encouraged and recommended by provider. Confidence: 03/25 Self-Management Plan: Will strive to achieve goal by within a few years Date goal set: 01/23/19 Patient given educational materials below via AVS. Provider Goal: Healthy diet and exercise. Patient received counseling about current lifestyle goal. Advised approximately 150 minutes of cardio, i.e treadmill, exercise in a week. Advised strive for 5 a total 5 servings of fruits and vegetables in a day. Advised a diet lower in carbohydrates and simple sugars. They need to watch consumption of bread, rice, pasta, potatoes, corn, soda, sweetened tea, lemonade, and all other sugar drinks. Patient given after visit summary which includes educational information on Exercise. Discussed use, benefit, and side effects of prescribed medications and barriers to medication compliance addressed, if applicable. All patient questions answered and patient voiced understanding. Patient was given a copy of this, and was advised to call if any questions. 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 [facility] 08-17-2023 Functional Status Independent [facility] 04-07-2023 Functional status Friend [facility] Work Phone: 04-02-2023 Functional status Appropriate [facility] Work Phone: [facility] Mental Status Date Assessment Result Facility 07-14-2024 Cognitive function Level Of Cons ciousness Awake;Alert;Appropriate [facility] Work Phone: 06-02-2024 Cognitive function Level Of Cons ciousness Awake;Alert;Appropriate;Follow s Commands [facility] Work Phone: 01-10-2024 Cognitive function Voice/Name [facility] Work Phone: 08-18-2023 [facility] Cognitive function Patient Behavior Appro [facility] Work Phone: Clinical Notes 03-21-2023 to 11-14-2024 Note Date & Type Note Facility 11-14-2024 Discharge summary [facility] 11-13-2024 Discharge summary Note Date/Time November 14, 2024 6:01am [facility] Medical Records Department [address] [place] [address] Emergency Department Summary 11/13/24 MR#: [id number] Acct: [id number] Name: DHAVAL MOON Rep #:[id number] : 2000 24 From: Paul whyte DO PCP: Dr. Vanessa Booth MD Status:REG ER Location: ED ADDENDUM by Dr. Tree Crowe MD on 11/14/24 at 0601 Crisis came and evaluate the patient when her alcohol level came back down to 0. She is no longer suicidal. She is comfortable being discharged home. 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 She was offered but did not want inpatient detox. Patient will be discharged to home. 11/14/24 0601<Electronically signed by Tree Crowe MD> Cosigner Signature (if applicable): cc: Dr. Vanessa Booth MD ~* Signed ADDENDUM by Dr. Paul Lewis DO on 11/14/24 at 0044 Alcohol level pending at this time. Patient signed out to night physician, Dr. Crowe. 11/14/24 0044<Electronically signed by Paul Lewis DO> Cosigner Signature (if applicable): cc: Dr. Vanessa Booth MD ~* Signed HPI History of Present Illness Chief Complaint: Suicidal Narrative Narrative: Chief complaint and HPI: 24-year-old female with past medical history of substance abuse including methamphetamine and cocaine, schizophrenia, bipolar disorder, PTSD, depression, anxiety, alcohol abuse presents as a pink slip from the police department for suicidal ideation and alcohol intoxication. Patient was seen earlier in our emergency department secondary to left ankle pain after an injury. She left before results were reported to her. She had an x-ray thatwas negative for fracture. Diagnosed with a left ankle sprain. Patient states she was sober for 5 months but started drinking alcohol again. States she became overwhelmed this evening stating that she does not want to live. She does not have a plan. No homicidal ideation. No visual or auditory hallucinations. States she would like detox. Review of systems: See HPI Medications: As listed on the chart Allergies: As listed on the chart PFSH: Per chart Vital signs: As listed on the chart. Reviewed. Physical exam: Gen: A&O x3 but intoxicated, tearful Head: Normocephalic, atraumatic Eyes: No sclera icterus, conjunctiva clear, PERRL ENT: Moist mucous membranes Neck: Trachea midline CV: RRR, no murmurs Resp: Lungs CTA BL, no w/r/c GI: Abd soft, non-distended, non-tender, no r/r/g Musc: Normal ambulation, full ROM, no deformity, mild swelling to the left anklecompared to the right from ankle sprain, DP/PT pulses +2 bilaterally Skin: Warm, dry Neuro: Alert, oriented, grossly intact, sensation intact Psych: Cooperative, appropriate mood and affect [facility] Medical History Hypertension Substance abuse History of bipolar disorder History of schizophrenia Schizo affective schizophrenia Bipolar 1 disorder Alcohol abuse PTSD (post-traumatic stress disorder) Depression Anxiety Home Medications ?Medication ?Instructions ?Recorded ?Last Taken ?Type albuterol sulfate 90 mcg/actuation 2 puff inhalation Q 6H PRN PRN 07/14/24 Unknown History aerosol inhaler wheezing fluticasone propionate 45 2 inh inhalation Q12H Unknown History mcg-salmeterol 21 mcg/actuation HFA inhaler (Advair HFA) folic acid 1 mg tablet 1 mg PO DAILY 07/14/24 Unkno wn History hydroxyzine pamoate 25 mg capsule 50 mg PO Q8H PRN PRN anxiety 07/14/24 Unknown History losartan 50 mg tablet 50 mg PO DAILY 07/14/24 Unkn own History metoprolol succinate 25 mg 25 mg PO BID 07/14/24 Unkno wn History tablet,extended release 24 hr multivitamin 1 tab PO DAILY 07/14/24 Unkn own History olanzapine 5 mg tablet 5 mg PO QHS 07/14/24 Unknown History omeprazole 20 mg capsule,delayed 20 mg PO DAILY Unknown History release vitamin B complex-folic acid 0.4 1 tab PO DAILY Unknown History mg tablet (B Complex 1 (with folic acid)) Allergy/AdvReac Type Severity Reaction Status Date / Time Penicillins (PCN) Allergy Hives Verified 11/13/24 20:00 pine nut Allergy Hives Verified 11/13/24 20:00 Social History Smoking Status: Current some day smoker tobacco type: cigarettes and e-cigarettes substance use type: methamphetamine EXAM Physical Exam Const Vital Signs: 11/13/24 19:56 11/13/24 21:00 11/13/24 22:00 Temperature 98.2 F Temperature Source Oral Pulse Rate 101 H 85 98 Respiratory Rate 18 16 16 Blood Pressure 116/80 107/63 118/58 L Blood Pressure Mean 92 77 78 Blood Pressure Source Blood Pressure Position Blood Pressure Location Pulse Ox 97 100 98 Oxygen Delivery Method Room Air Room Air Room Air 11/13/24 22:00 11/13/24 23:00 11/14/24 00:00 Temperature 98.2 F 98.3 F Temperature Source Oral Oral Pulse Rate 98 98 107 H Respiratory Rate 16 18 18 Blood Pressure 118/58 L 149/79 H 132/84 H Blood Pressure Mean 78 102 100 Blood Pressure Source Monitor Blood Pressure Position Left Lateral Blood Pressure Location Right Arm Pulse Ox 98 98 93 Oxygen Delivery Method Room Air Room Air Room Air MDM MDM MDM Narrative Medical decision making narrative: 24-year-old female with past medical history of substance abuse including methamphetamine and cocaine, schizophrenia, bipolar disorder, PTSD, depression, anxiety, alcohol abuse presents as a pink slip from the police department for suicidal ideation and alcohol intoxication. Patient was seen earlier in our emergency department secondary to left ankle pain after an injury. She left before results were reported to her. She had an x-ray that was negative for fracture. Diagnosed with a left ankle sprain. Patient states she was sober for5 months but started drinking alcohol again. States she became overwhelmed thisevening stating that she does not want to live. She does not have a plan. No homicidal ideation. No visual or auditory hallucinations. States she would like detox. Given that patient endorses suicidal ideation will continue pink slip. Patient requesting being placed for detox. NS bolus ordered. Differential diagnosis includes but is not limited to alcohol intoxication, substance abuse, depression, anxiety, suicidal ideation, electrolyte abnormality. Social work consulted. CBC without leukocytosis or anemia. CMP unremarkable. Serum negative. Urine drug screen positive for amphetamines. Alcohol level 205. Patient is anxious and requesting Ativan. This was ordered. Placed on CIWA. Social work spoke with the patient. Given patient intoxicated, will need to be cleared from a suicidal ideation standpointbefore being admitted to detox center. Will repeat alcohol level and once . Patient will need to be evaluated by crisis. Impression: 1. Alcohol intoxication 2. Requesting alcohol detox 3. Suicidal ideation Lab Data Labs: Laboratory Results - last 24 hr 11/13/24 11/13/24 20:15 20:50 WBC 8.4 RBC 4.26 Hgb 13.4 Hct 39.9 MCV 93.7 MCH 31.5 MCHC 33.6 RDW Std Deviation 45.2 H RDW Coeff of Jaden 13.2 Plt Count 294 MPV 10.2 Immature Gran % (Auto) 0.100 Neut % (Auto) 38.2 L Lymph % (Auto) 49.5 H Red Willow % (Auto) 4.9 Eos % (Auto) 6.6 H Baso % (Auto) 0.7 Absolute Neuts (auto) 3.2 Absolute Lymphs (auto) 4.14 Nucleated RBC % 0 Sodium 143 Potassium 3.6 Chloride 105 Carbon Dioxide 24.2 Anion Gap 14 BUN 7 Creatinine 0.62 L Est GFR (MDRD) Non-Af 127 BUN/Creatinine Ratio 11.6 Glucose 81 Calcium 9.0 Total Bilirubin 0.43 AST 20 ALT 13 Alkaline Phosphatase 91 Total Protein 7.5 Albumin 4.1 Globulin 3.4 Albumin/Globulin Ratio 1.2 Serum , Qual NEGATIVE Urine Opiates Screen NEGATIVE U Buprenorphine Qual NEGATIVE Ur Oxycodone Screen NEGATIVE Urine Methadone Screen NEGATIVE Urine Fentanyl Screen NEGATIVE Ur Barbiturates Screen NEGATIVE Ur Phencyclidine Scrn NEGATIVE Ur Amphetamines Screen PRESUMPTIVE POSITIVE U Benzodiazepines Scrn NEGATIVE Urine Cocaine Screen NEGATIVE U Cannabinoids Screen NEGATIVE Ethyl Alcohol 205.0 H Discharge Plan Triage Chief Complaint: Suicidal ED Provider: Paul Lewis Dx/Rx/DC Orders Prescriptions: No Action losartan 50 mg tablet 50 mg PO DAILY metoprolol succinate 25 mg tablet extended release 24 hr 25 mg PO BID albuterol sulfate 90 mcg/actuation HFA aerosol inhaler 2 puff inhalation Q6H PRN PRN (Reason: wheezing) fluticasone propion-salmeterol [Advair HFA] 45-21 mcg/actuation HFA aerosol inhaler 2 inh inhalation Q12H multivitamin Tablet 1 tab PO DAILY olanzapine 5 mg tablet 5 mg PO QHS omeprazole 20 mg capsule,delayed release(DR/EC) 20 mg PO DAILY folic acid 1 mg tablet 1 mg PO DAILY hydroxyzine pamoate 25 mg capsule 50 mg PO Q8H PRN PRN (Reason: anxiety) vitamin B complex-folic acid [B Complex 1 (with folic acid)] 0.4 mg tablet 1 tab PO DAILY Primary Care Provider: Vanessa Booth Referrals: Vanessa Booth MD [Primary Care Provider, Family Practice] Print Language: Romanian What to do if you have Problems For any increased pain, shortness of breath, bleeding, nausea or vomiting, chestpain, or any unexpected problems, contact your Primary Care Provider. Call [facility] ([phone]) or report to the closest Emergency Room. Call 911 if necessary. 11/14/24 0005 <Electronically signed by Paul Lewis DO> Cosigner Signature (if applicable): CC: Dr. Vanessa Booth MD ~ Signed [facility] Work Phone: [phone]) 317-467010-01-2025 Discharge summary [facility] Medical Records Department [address] [place] [address] Emergency Department Summary 11/13/24 MR#: [id number] Acct: [id number] Name: DHAVAL MOON Rep #:[id number] : 2000 24 From: Nas Schilling DO PCP: Dr. Vanessa Booth MD Status:DEP ER Location: ED HPI History of Present Illness Chief Complaint: Lower Extremity Injury Detail of Chief Complaint: Left ankle injury Informant: patient Narrative Narrative: Patient presents to the emergency department after sustaining a left ankle injury this morning. Patient states that she was having an asthma attack and was walking to get her inhaler from her friend's house when she stepped on a walnut and rolled her ankle. Patient able to bear some weight afterwards. Denies any other injuries. She called EMS who brought her in for evaluation. Denies recent illness [facility] Medical History Hypertension Substance abuse History of bipolar disorder History of schizophrenia Schizo affective schizophrenia Bipolar 1 disorder Alcohol abuse PTSD (post-traumatic stress disorder) Depression Anxiety Home Medications ?Medication ?Instructions ?Recorded ?Last Taken ?Type albuterol sulfate 90 mcg/actuation 2 puff inhalation Q 6H PRN PRN 07/14/24 Unknown History aerosol inhaler wheezing fluticasone propionate 45 2 inh inhalation Q12H Unknown History mcg-salmeterol 21 mcg/actuation HFA inhaler (Advair HFA) folic acid 1 mg tablet 1 mg PO DAILY 07/14/24 Unkno wn History hydroxyzine pamoate 25 mg capsule 50 mg PO Q8H PRN PRN anxiety 07/14/24 Unknown History losartan 50 mg tablet 50 mg PO DAILY 07/14/24 Unkn own History metoprolol succinate 25 mg 25 mg PO BID 07/14/24 Unkno wn History tablet,extended release 24 hr multivitamin 1 tab PO DAILY 07/14/24 Unkn own History olanzapine 5 mg tablet 5 mg PO QHS 07/14/24 Unknown History omeprazole 20 mg capsule,delayed 20 mg PO DAILY Unknown History release vitamin B complex-folic acid 0.4 1 tab PO DAILY Unknown History mg tablet (B Complex 1 (with folic acid)) Allergy/AdvReac Type Severity Reaction Status Date / Time Penicillins (PCN) Allergy Hives Verified 11/13/24 07:11 pine nut Allergy Hives Verified 11/13/24 07:11 Social History Smoking Status: Current some day smoker tobacco type: cigarettes and e-cigarettes substance use type: methamphetamine ROS ROS ED Review of Systems ROS Unobtainable: other Constitutional Constitutional ED: Reports lethargy; Denies chills, fever(s), sweats or weight loss Eyes Eyes: Denies blurry vision, change in vision or diplopia ENT ENT ED: Denies rhinorrhea or sore throat Cardiovascular Cardiovascular: Denies chest pain, orthopnea or racing heartbeat Respiratory/Chest Respiratory/Chest: Reports dyspnea; Denies cough, dyspnea on exertion, orthopneaor sputum Gastrointestinal Gastrointestinal: Denies abdominal pain, diarrhea, nausea or vomiting Genitourinary Genitourinary ED: Denies dysuria, hematuria or urinary frequency Musculoskeletal Musculoskeletal: Reports other Details: Left ankle injury/pain ; Denies arthralgias, back pain, myalgias or neck pain Integumentary Denies abscess, Abrasions or rash Neurologic Neurologic: Denies headache(s) or weakness Psychiatric Psychiatric: Denies anxiety, depression or suicidal thoughts Endocrine Endocrinology: Denies polydipsia, polyphagia or polyuria Hematologic/Lymphatic Hematologic/Lymphatic: Denies easy bleeding, easy bruising or lymphadenopathy Allergic/Immunologic Allergic/Immunologic ED: Denies mouth swelling, tongue swelling or urticaria EXAM Physical Exam Const Vital Signs: 11/13/24 07:09 11/13/24 07:35 Temperature 97.7 F L Temperature Source Oral Pulse Rate 100 95 Respiratory Rate 16 16 Blood Pressure 123/84 H Blood Pressure Mean 97 Pulse Ox 97 Oxygen Delivery Method Room Air Positive well nourished and well developed General Appearance ED: well developed and NAD HEENT Reports TM's clear and moist mucous membranes normocephalic and atraumatic; Negative for trauma or tenderness Tympanic Membrane ED: Yes TM's clear Eyes PERRL and EOMs intact bilaterally General Eye ED: Negative for pale conjunctiva or scleral icterus Neck no lymphadenopathy, supple and no JVD General: Negative for tenderness Chest Wall inspection of chest normal and palpation of chest normal Chest: Negative for tenderness Resp normal respiratory effort and clear to auscultation bilaterally Resp Narrative: No significant tachypnea or conversational dyspnea. She has some faint expiratory wheezes bilaterally. Effort and Inspection: Negative for respiratory distress or pain with movement Auscultation: wheezes; Negative for rhonchi or diminished lung sounds Cardio regular rate, regular rhythm, S1 normal heart sound, S2 normal heart sound and no murmurs Peripheral Pulses: pulses 2+ throughout GI normal to inspection, nondistended, normoactive bowel sounds, soft to palpation,non-tender, non-distended and no masses Back/Spine no CVA tenderness and no thoracic nor lumbar tenderness Extremity Extremity Narrative: Left ankle-patient has soft tissue swelling over the lateral malleolus with tenderness to palpation. She has no pain at the proximal fibular head. No painat the base of the fifth metatarsal. She is neurovascular intact distally. General Extremety ED: Negative for edema General Extremity: Negative for edema Neuro oriented x3, CN's II-XII intact bilaterally, no sensory deficits noted and gait normal Sensorium / Orientation: awake, alert, oriented to person, oriented to place andoriented to time Motor Exam: strength 5/5 throughout and strength abnormal Psych mental status grossly normal Skin no rashes or lesions noted and no wounds MDM MDM MDM Narrative Medical decision making narrative: Patient presents to the emergency department with complaint of injury to her left ankle. No other injuries noted. Also has history of asthma and was complaining of some mild dyspnea. I did give her aDuoNeb aerosol. X-rays of the left ankle were obtained which showed no fractures. I went back into speak with the patient and do exit interview however she had eloped from the department with her significant other. Radiography Diagnostic Testing: Clinical Impression(s) from Imaging Studies Ankle X-Ray 11/13/24 07:50 IMPRESSION: On lateral imaging, normal contour of the Achilles tendon is seen. There is probably a small ankle joint effusion. Soft tissue swelling is seen over the lateral malleolus. Satisfactory osseous alignment is noted. The ankle mortise appears intact. No fracture or dislocation is seen. If clinical concern persists, short-term follow-up imaging may be obtained to rule out a currently occult fracture. Reading Location: [address] Three-view x-rays of the left ankle obtained interpreted by myself as no evidence of fracture or dislocation or acute process. Radiology in agreement. Discharge Plan Triage Chief Complaint: Lower Extremity Injury ED Provider: Nas Schilling Dx/Rx/DC Orders Clinical Impression: Left ankle sprain, Asthma Prescriptions: No Action losartan 50 mg tablet 50 mg PO DAILY metoprolol succinate 25 mg tablet extended release 24 hr 25 mg PO BID albuterol sulfate 90 mcg/actuation HFA aerosol inhaler 2 puff inhalation Q6H PRN PRN (Reason: wheezing) fluticasone propion-salmeterol [Advair HFA] 45-21 mcg/actuation HFA aerosol inhaler 2 inh inhalation Q12H multivitamin Tablet 1 tab PO DAILY olanzapine 5 mg tablet 5 mg PO QHS omeprazole 20 mg capsule,delayed release(DR/EC) 20 mg PO DAILY folic acid 1 mg tablet 1 mg PO DAILY hydroxyzine pamoate 25 mg capsule 50 mg PO Q8H PRN PRN (Reason: anxiety) vitamin B complex-folic acid [B Complex 1 (with folic acid)] 0.4 mg tablet 1 tab PO DAILY Primary Care Provider: Vanessa Booth Referrals: Vanessa Booth MD [Primary Care Provider, Family Practice] Print Language: Romanian Disposition Disposition: Elopement What to do if you have Problems For any increased pain, shortness of breath, bleeding, nausea or vomiting, chestpain, or any unexpected problems, contact your Primary Care Provider. Call [facility] ([phone]) or report tothe closest Emergency Room. Call 911 if necessary. 11/13/24 7339 Cosigner Signature (if applicable): CC: Dr. Vanessa Booth MD ~ Signed [facility]10-01-2025 Radiology Diagnostic study note [facility] Imaging Services [address] [place], [place] [address] Ankle min 3 Views MR#: [id number] Acct: [id number] Name: DHAVAL MOON Rep #: [id number] : 2000 F 24 From: Torsten Beaver MD PCP: Dr. Vanessa Booth MD Status: REG ER Study:Ankle min 3 Views Date of Exam: Exam# [id number] Ordering Dr: Coty Schilling DO PROCEDURE: ANKLE MIN 3 VIEWS N/A REASON FOR EXAM: INJURY TECHNIQUE: Procedure Code: RADANK Modality: DX Procedure: ANKLE MIN 3 VIEWS Laterality: Left COMPARISON: None. RAD/Ankle min 3 Views IMPRESSION: On lateral imaging, normal contour of the Achilles tendon is seen. There is probably a small ankle joint effusion. Soft tissue swelling is seen over the lateral malleolus. Satisfactory osseous alignment is noted. The ankle mortise appears intact. No fracture or dislocation is seen. If clinical concern persists, short-term follow-up imaging may be obtained to rule out a currently occult fracture. Reading Location: [address] CC: Dr. Vanessa Booth MD; Dr. Nas Schilling DO ~ Supervising Chef: Signed [facility]09-29-[address] [facility] Medical Records Department [address] [place] [address] Emergency Department Summary 11/11/24 MR#: [id number] Acct: [id number] Name: DHAVAL MOON Rep #:[id number] : 2000 24 From: Bharat Pinedo DO PCP: Dr. Vanessa Booth MD Status:REG ER Location: ED HPI History of Present Illness Chief Complaint: Anxiety Narrative Narrative: Patient is a 24-year-old female with past medical history of substance abuse, bipolar disorder, hypertension, PTSD, anxiety, depression who presented to the emergency department with a chief complaint of feeling anxious and feeling like her heart is racing in the chest. States that she smoked weed earlier and notesthat the symptoms started afterwards. She also complains of some nausea and vomiting denies any recent sick contacts. [facility] Medical History Hypertension Substance abuse History of bipolar disorder History of schizophrenia Schizo affective schizophrenia Bipolar 1 disorder Alcohol abuse PTSD (post-traumatic stress disorder) Depression Anxiety Home Medications ?Medication ?Instructions ?Recorded ?Last Taken ?Type albuterol sulfate 90 mcg/actuation 2 puff inhalation Q 6H PRN PRN 07/14/24 Unknown History aerosol inhaler wheezing fluticasone propionate 45 2 inh inhalation Q12H Unknown History mcg-salmeterol 21 mcg/actuation HFA inhaler (Advair HFA) folic acid 1 mg tablet 1 mg PO DAILY 07/14/24 Unkno wn History hydroxyzine pamoate 25 mg capsule 50 mg PO Q8H PRN PRN anxiety 07/14/24 Unknown History losartan 50 mg tablet 50 mg PO DAILY 07/14/24 Unkn own History metoprolol succinate 25 mg 25 mg PO BID 07/14/24 Unkno wn History tablet,extended release 24 hr multivitamin 1 tab PO DAILY 07/14/24 Unkn own History olanzapine 5 mg tablet 5 mg PO QHS 07/14/24 Unknown History omeprazole 20 mg capsule,delayed 20 mg PO DAILY Unknown History release vitamin B complex-folic acid 0.4 1 tab PO DAILY Unknown History mg tablet (B Complex 1 (with folic acid)) Allergy/AdvReac Type Severity Reaction Status Date / Time Penicillins (PCN) Allergy Hives Verified 11/11/24 03:18 pine nut Allergy Hives Verified 11/11/24 03:18 Social History Smoking Status: Current some day smoker tobacco type: cigarettes and e-cigarettes substance use type: methamphetamine ROS ROS ED ROS Narrative Constitutional: Denies any fevers, chills, headaches, lightheadedness, dizziness Eyes: Denies double vision blurry vision Cardiovascular: Complains of palpitations denies chest pain Respiratory: Denies coughing wheezing shortness of breath Abdomen: Denies abdominal pain diarrhea complains of nausea and vomiting : Denies any urinary symptoms Neurological: Denies any numbness, weeks, tingling Musculoskeletal: Denies back pain Skin: Denies any rashes or lesions EXAM Physical Exam Narrative Exam Narrative: General: Patient lying in bed rest comfortably did not appear to be in acute distress Head: Atraumatic, normocephalic Eyes: PERRL bilaterally, EOMI bilaterally, no conjunctival injection noted Neck: Soft, supple, trachea midline Cardiovascular: Patient tachycardic with a regular rhythm Respiratory: Clear to auscultation bilaterally Abdomen: Soft, nondistended, no tenderness to palpation Extremities: +5/5 strength noted in the bilateral upper and lower extremities Neurological: Patient follow commands that she was at [facility] years 2024 Skin: Warm, dry, intact no rashes or lesions noted Const Vital Signs: 11/11/24 03:18 Temperature 97.7 F L Temperature Source Oral Pulse Rate 124 H Respiratory Rate 18 Blood Pressure 166/122 H Blood Pressure Mean 136 Pulse Ox 100 Oxygen Delivery Method Room Air MDM MDM MDM Narrative Medical decision making narrative: Patient is a 24-year-old female who presents to the emergency department the chief complaint of palpitations, nausea vomiting after smoking marijuana. On the differential diagnose includes but limited to , viral gastroenteritis, cyclical vomiting syndrome from cannabis use. Once workup is obtained reviewed she will be reevaluated. Patient was given Zofran and Haldol. Patient chest x-ray reviewed by myself by radiology and showed no acute processes. Patient was EKG reviewed which showed sinus tachycardia the rate of 116 bpm. test negative On reevaluation the patient she is feeling much better she would like to go homeat this point in time. She advised to follow-up with doctor outpatient and return with worsening symptoms or concerns. All question concerns answered she is discharged home in stable condition. Lab Data Labs: Laboratory Results - last 24 hr 11/11/24 04:17 Urine Test Negative Radiography Diagnostic Testing: Clinical Impression(s) from Imaging Studies Chest X-Ray 11/11/24 04:10 IMPRESSION: No acute process is identified in the chest. Reading Location: [facility] Discharge Plan Triage Chief Complaint: Anxiety ED Provider: Bharat Pinedo Dx/Rx/DC Orders Clinical Impression: Anxiety, Palpitations Prescriptions: No Action losartan 50 mg tablet 50 mg PO DAILY metoprolol succinate 25 mg tablet extended release 24 hr 25 mg PO BID albuterol sulfate 90 mcg/actuation HFA aerosol inhaler 2 puff inhalation Q6H PRN PRN (Reason: wheezing) fluticasone propion-salmeterol [Advair HFA] 45-21 mcg/actuation HFA aerosol inhaler 2 inh inhalation Q12H multivitamin Tablet 1 tab PO DAILY olanzapine 5 mg tablet 5 mg PO QHS omeprazole 20 mg capsule,delayed release(DR/EC) 20 mg PO DAILY folic acid 1 mg tablet 1 mg PO DAILY hydroxyzine pamoate 25 mg capsule 50 mg PO Q8H PRN PRN (Reason: anxiety) vitamin B complex-folic acid [B Complex 1 (with folic acid)] 0.4 mg tablet 1 tab PO DAILY Primary Care Provider: Vanessa Booth Referrals: Vanessa Booth MD [Primary Care Provider, Family Practice] Activity Restrictions/Additional Instructions: Follow-up your doctor in the outpatient setting. Your EKG and your chest x-ray did not show any acute findings today. Return with worsening symptoms or any other concerns Print Language: Romanian Disposition Disposition: Home, Self Care What to do if you have Problems For any increased pain, shortness of breath, bleeding, nausea or vomiting, chestpain, or any unexpected problems, contact your Primary Care Provider. Call [facility] ([phone]) or report tothe closest Emergency Room. Call 911 if necessary. 11/11/24 0621 Cosigner Signature (if applicable): CC: Dr. Vanessa Booth MD ~ Signed [facility]09-29-2025 Radiology Diagnostic study note [facility] Services [address] [place] [address] Chest 1 View (Portable) MR#: [id number] Acct: [id number] Name: DHAVAL MOON Rep #: [id number] : 2000 F 24 From: Vaishali Evans MD PCP: Dr. Vanessa Booth MD Status: REG ER Study:Chest 1 View (Portable) Date of Exam: 11/11/24 Exam# [id number] Ordering Dr: Christine Pinedo DO PROCEDURE: CHEST 1 VIEW (PORTABLE) 11/11/2024 REASON FOR EXAM: PALPITATIONS TECHNIQUE: Frontal view of the chest. COMPARISON: August 03, 2024 FINDINGS: Heart size is upper normal. Central vascularity appears normal. There is no focal infiltrate or consolidation. There is no pneumothorax or effusion. There is no acute bony abnormality. There is no visible atherosclerosis. RAD/Chest 1 View (Portable) IMPRESSION: No acute process is identified in the chest. Reading Location[facility] CC: Dr. Vanessa Booth MD; Dr. Bharat Pinedo DO ~ Supervising Chef: Signed [facility]09-17-2025 Emergency department Note* Easton Kilgore, [facility] - 10/30/2024 7:35 PM EDT Department of Pharmacy ED Discharge Prescription Review Patient: Dhaval Moon Due to the specific medication prescribed, the following ED discharge prescriptions were reviewed after discharge at 10/30/2024 7:42 PM: SMX/TMP Based upon review of above discharge prescriptions, No interventions were necessary for the above prescription(s). No follow-up actions are necessary at this time. Please feel free to contact me with any further questions. Name: Easton Kilgore [facility] Phone: [phone] Date/Time: 10/30/2024 7:42 PM Time spent: 2 minutes [facility]09-17-2025 Emergency department Note* Easton Kilgore RP - 10/30/2024 7:35 PM EDT Department of Pharmacy ED Discharge Prescription Review Patient: Dhaval Moon Due to the specific medication prescribed, the following ED discharge prescriptions were reviewed after discharge at 10/30/2024 7:42 PM: SMX/TMP Based upon review of above discharge prescriptions, No interventions were necessary for the above prescription(s). No follow-up actions are necessary at this time. Please feel free to contact me with any further questions. Name: Easton Kilgore [facility] Phone: [phone] Date/Time: 10/30/2024 7:42 PM Time spent: 2 minutes * SANDRA Nagy - 10/30/2024 7:09 PM EDT Reason for Consult: Addiction Consulted By: SURJIT Assessment SW received consult request to assist patient with entering treatment program. SW spoke with patient in the EPIT, however it was very difficult keeping patient focused on assessing her. Anna from [facility] arrived to further assess patient. The patient continuously abruptly left the screening. [facility] eventually able to get enough information and was able to get patient accepted at [facility]. [facility] patient again left the room. This SW went outside to confront patient after have informed her that if patient is not serious and left out again the process would end. SW informed patient that she had been accepted to [facility] however we are unable to assist further as they needed to speak with her as well. SW handed patient her b elongings and patient has now been discharged. Action Plan No additional SW requests at this time. Josselyn Carrasco, MSSA, DRILLING RIG OPERATOR, [facility] [place], LCDCIII Medical Social Work [phone] Can also be reached via Secure chat. * Josef Walters Jatinder, HYDRANT SETTER-AIRPORT CONTROL OPERATOR - 10/30/2024 4:11 PM EDT dEPARTMENT of Emergency Medicine CHIEF COMPLAINT Anxiety (Pt states, I just dont feel right. Pt reports putting a needle in her hand to use drugs but stopped before she pushed the drugs in. Pt then reports hyperventilating ) and Urinary Pain (Pt c/o pain and frequency) HPI Dhaval Moon is a 24 y.o. female who presents with a variety of complaints. She has a difficult time articulating why she is here. She states she fucked up and is worried about it. When asked to be more specific, she states she stuck a needle into her hand to inject IV drugs, but then decided not to, and since removing the needle, she feels like there is just generally something wrong with her and she is anxious about it. She is worried there is a blood clot in her hand. She thinks her feetand hands are discolored. She thinks she has been having problems with her live for a long time andno one is listening to her. She has some dysuria. She was prescribed keflex for a UTI recently but did not complete the treatment because she was in a rehab facility and they were not giving it to her correctly. She denies any specific STI symptoms but was offered testing so would like to have it done. She has been drinking alcohol today. When asked about her numerous recent ED visits, including yesterday, pt states she just generally feels that something is wrong with her. When asked again what she is seeking today, she reports, I want someone to take me seriously. She also states, If youwant to send me home, that's fine. REVIEW OF SYSTEMS Review of Systems All other systems reviewed and are negative. PAST MEDICAL HISTORY Past Medical History[1] SURGICAL HISTORY Past Surgical History[2] CURRENT MEDICATIONS Current Medications[3] ALLERGIES Allergies[4] FAMILY HISTORY No family history on file. SOCIAL HISTORY Social History Socioeconomic History Marital status: Single Spouse name: Not on file Number of children: Not on file Years of education: Not on file Highest education level: Not on file Occupational History Not on file Tobacco Use Smoking status: Every Day Types: Cigarettes Smokeless tobacco: Never Vaping Use Vaping status: Former Substance and Sexual Activity Alcohol use: Not Currently Comment: sober since 07/2024 Drug use: Not Currently Comment: none for 2 weeks Sexual activity: Not Currently Comment: was prior to sober living Other Topics Concern Not on file Social History Narrative Not on file Social Drivers of Health Financial Resource Strain: Medium Risk (05/22/2020) Received from [facility] Overall Financial Resource Strain (CARDIA) Difficulty of Paying Living Expenses: Somewhat hard Food Insecurity: Unknown (10/12/2024) Received from [facility] Hunger Vital Sign Within the past 12 months, you worried that your food would run out before you got the money to buymore.: Never true Ran Out of Food in the Last Year: Not on file Recent Concern: Food Insecurity - Food Insecurity Present (09/25/2024) Received from [facility] Hunger Vital Sign Within the past 12 months, you worried that your food would run out before you got the money to buymore.: Sometimes true Within the past 12 months, the food you bought just didn't last and you didn't have money to get more.: Often true Transportation Needs: Unmet Transportation Needs (09/25/2024) Received from [facility] PRAPARE - Transportation Lack of Transportation (Medical): Yes Lack of Transportation (Non-Medical): Yes Physical Activity: Inactive (01/23/2019) Received from [facility] Exercise Vital Sign Days of Exercise per Week: 0 days Minutes of Exercise per Session: 0 min Stress: Not on file Social Connections: Not on file Personal Safety: At Risk (09/25/2024) Received from [facility] Humiliation, Afraid, Rape, and Kick questionnaire Within the last year, have you been afraid of your partner or ex-partner?: No Within the last year, have you been humiliated or emotionally abused in other ways by your partner or ex-partner?: Yes Within the last year, have you been kicked, hit, slapped, or otherwise physically hurt by your partner or ex-partner?: No Within the last year, have you been raped or forced to have any kind of sexual activity by your partner or ex-partner?: No Housing Stability: High Risk (09/25/2024) Received from [facility] Housing Stability Vital Sign In the last 12 months, was there a time when you were not able to pay the mortgage or rent on time?: Yes In the past 12 months, how many times have you moved where you were living?: 2 At any time in the past 12 months, were you homeless or living in a mcc (including now)?: No PHYSICAL EXAM BP 149/90 Pulse 104 Temp 98.4 F (36.9 C) (Oral) Resp 16 Wt 109.8 kg (242 lb) SpO2 96% Smoking Status Every Day Physical Exam Vitals reviewed. Constitutional: Appearance: She is not toxic-appearing. HENT: Head: Normocephalic and atraumatic. Right Ear: Hearing normal. Left Ear: Hearing normal. Eyes: General: Vision grossly intact. Cardiovascular: Rate and Rhythm: Regular rhythm. Tachycardia present. Heart sounds: Normal heart sounds. Pulmonary: Effort: Pulmonary effort is normal. Breath sounds: Normal breath sounds. Abdominal: General: There is no distension. Palpations: Abdomen is soft. Tenderness: There is no abdominal tenderness. There is no right CVA tenderness, left CVA tendernessor guarding. Musculoskeletal: Right hand: No swelling, deformity or tenderness. Normal range of motion. Normal strength. Normal sensation. Normal capillary refill. Cervical back: Normal range of motion. Comments: Small puncture wound on dorsal R hand, bandage in place, no active bleeding. Skin: General: Skin is warm and dry. Neurological: General: No focal deficit present. Mental Status: She is alert. Psychiatric: Mood and Affect: Affect is labile. ED COURSE & MEDICAL DECISION MAKING Dhaval Moon IS A 24 y.o. female who presented with Chief Complaint Patient presents with Anxiety Pt states, I just dont feel right. Pt reports putting a needle in her hand to use drugs but stopped before she pushed the drugs in. Pt then reports hyperventilating Urinary Pain Pt c/o pain and frequency . DDx includes, but not limited to: malingering, anxiety, intoxication, cystitis. Do not suspect pyelo. Plan - Symptom control/fluids: Medications - No data to display Results - Labs: Results for orders placed or performed during the hospital encounter of 10/30/24 HIV 1 AND 2 ANTIBODIES/P24 ANTIGEN Result Value Ref Range HIV-1/HIV-2 Ab With p24 Antigen Non Reactive Non Reactive BETA HCG, QUAL, BLOOD Result Value Ref Range HCG (Qual) Serum Negative Negative AFFIRM TEST (VAGINITIS DNA PROBE) ED ONLY Result Value Ref Range DNA Probe Tani Species Positive (A) Negative DNA Probe Gardnerella Negative Negative DNA Probe Trichomonas Negative Negative URINE DIPSTICK; REFLEX MICROSCOPY; REFLEX CULTURE PERFORMABLE Result Value Ref Range Color Yellow Yellow Appearance Urine Cloudy (A) Clear Glucose Urine Negative Negative Ketones Urine Negative Negative Specific [place] Urine 1.018 1.001 - 1.035 Blood Urine Trace (A) Negative pH Urine 6.5 5.0 - 7.0 Protein Urine Negative Negative Urobilinogen Urine 1.0 E.U./dL 0.2 E.U/dL, 1.0 E.U/dL Nitrites Urine Positive (A) Negative Leukocyte Esterase Large (A) Negative URINE MICROSCOPIC WITH REFLEX TO CULTURE Specimen: URINE - CLEAN CATCH Result Value Ref Range RBC Urine 3-5 (A) 0 - 2 /HPF WBC Urine > 20 (A) 0 - 5 /HPF Squamous/Epithelial Cells, Urine 0-2/hpf 0-2/hpf, 3-5/hpf = 1+ Bacteria PRESENT (A) ABSENT Pt seen at [facility] yesterday for abd pain--per discharge note, Labs are reassuring no significant abnormalities. CT showing cardiomegaly and small fat-containing hernia, no other acute intra-abdominal process. Discharged home with suspected gastritis. Unable to view results from labs. Seen in ED in [place], [place] on 10/12, sent from rehab facility with complaint that she was not receiving abx for UTI and wanted to be transferred to different facility, transferred to another detox facility. Seen at [facility] on 10/05 for ETOH intoxication, vaginal discharge, urinary sx. Dx with UTIand BV, sent home with keflex, which she did not complete as above. ED visit at [place] on 10/04 for ETOH intoxication, made med hold. Also ED visits on 10/03, 10/01, 09/28, 09/27. [facility] for [facility]H withdrawal. As above, unclear exactly why she is visiting the ED today. Did recheck urine which is infected. With no fever or flank pain, do not suspect pyelo. Will tx with 7 days Bactrim and culture. Pt will beadvised to follow up with her PCP. Also sent clotrimazole for vaginal candidiasis. SW consulted as pt asking for assistance getting into treatment program. [facility] was consulted and pt has bed at [facility]. Will be dischrged. Dx: ICD-10-CM 1. Urinary tract infection with hematuria, site unspecified N39.0 R31.9 2. Alcohol use disorder F10.90 Medical Decision Making Problems Addressed: Alcohol use disorder: chronic illness or injury Urinary tract infection with hematuria, site unspecified: acute illness or injury Amount and/or Complexity of Data Reviewed Labs: ordered. Risk OTC drugs. Prescription drug management. Diagnosis or treatment significantly limited by social determinants of health. ED Course Prior medical records were reviewed. Patient's past medical history, social history, family historyand surgical history was reviewed. All pertinent labs and imaging results were reviewed by myself and the attending physician when appropriate. The patient was updated regarding findings, and was re-assessed during ED stay. Dispo: discharge Patient was prescribed the following medications for home: New Prescriptions CLOTRIMAZOLE 2 % CREAM Insert 1 Applicatorful vaginally at bedtime for 3 days. SULFAMETHOXAZOLE-TRIMETHOPRIM 800-160 MG PER TABLET Take 1 tablet by mouth 2 times daily for 7 days. Reasons to return to the ED, potential complications, expected course of the patient's condition, and recommended treatments were discussed with the patient. The patient was also instructed to followup with their primary care physician and/or any appropriate specialists. The patient expressed understanding and agreement, and will be discharged in good condition. This was an independent nurse practitioner visit. Voice recognition software was used in producing this note. Please excuse any grammatical or spelling errors. [1] Past Medical History: Diagnosis Date Alcohol abuse Asthma Drug abuse meth, none for 2 weeks Essential hypertension, benign [2] No past surgical history on file. [3] No current facility-administered medications for this encounter. Current Outpatient Medications Medication Sig Dispense Refill Clotrimazole 2 % Cream Insert 1 Applicatorful vaginally at bedtime for 3 days. 21 g 0 faMOTIdine 20 MG tablet Take 1 tablet by mouth 2 times daily. 60 tablet 1 Fluticasone-Salmeterol (ADVAIR HFA IN) Inhale. hydrOXYzine pamoate 50 MG capsule Take 1 capsule by mouth 3 times daily as needed for Anxiety. Losartan 50 MG tablet Take 1 tablet by mouth daily. Metoprolol 25 MG tab regular release Take 1 tablet by mouth 2 times daily. Multiple Vitamins-Minerals (Multivitamin w/ minerals, THERAPEUTIC-M,) tablet Take 1 tablet by mouthdaily. Ondansetron 4 MG Tab Dispersible tablet Take 1 tablet by mouth every 4 hours as needed for Nausea. Place on tongue 30 tablet 0 Sulfamethoxazole-trimethoprim 800-160 MG per tablet Take 1 tablet by mouth 2 times daily for 7 days. 14 tablet 0 [4] Allergies Allergen Reactions Penicillins SURJIT White 10/30/241931 [facility] Discharge instructions* Discharge Instructions* SURJIT White - 10/30/2024 7:22 PM EDT Please make sure to take the antibiotics for your urinary tract infection exactly as prescribed. You also tested positive for a vaginal yeast infection today, so I sent a prescription for a cream youcan use for the next 3 days to treat this. documented in this [facility]09-17-2025 Emergency department Note* SANDRA Nagy - 10/30/2024 7:09 PM EDT Reason for Consult: Addiction Consulted By: SURJIT Assessment SW received consult request to assist patient with entering treatment program. SW spoke with patient in the EPIT, however it was very difficult keeping patient focused on assessing her. Anna from [facility] arrived to further assess patient. The patient continuously abruptly left the screening. [facility] eventually able to get enough information and was able to get patient accepted at [facility]. [facility] patient again left the room. This SW went outside to confront patient after have informed her that if patient is not serious and left out again the process would end. SW informed patient that she had been accepted to [facility] however we are unable to assist further as they needed to speak with her as well. SW handed patient her belongings and patient has now been discharged. Action Plan No additional SW requests at this time. Josselyn Carrasco, MSSA, DRILLING RIG OPERATOR, [facility], LCDCIII Medical Social Work [phone] Can also be reached via Secure chat. [facility]09-17-[facility]25 Physician Emergency department Note* Josef Tobias, HYDRANT SETTER-AIRPORT CONTROL OPERATOR - 10/30/2024 4:11 PM EDT dEPARTMENT of Emergency Medicine CHIEF COMPLAINT Anxiety (Pt states, I just dont feel right. Pt reports putting a needle in her hand to use drugs but stopped before she pushed the drugs in. Pt then reports hyperventilating ) and Urinary Pain (Pt c/o pain and frequency) HPI Dhaval Moon is a 24 y.o. female who presents with a variety of complaints. She has a difficult time articulating why she is here. She states she fucked up and is worried about it. When asked to be more specific, she states she stuck a needle into her hand to inject IV drugs, but then decided not to, and since removing the needle, she feels like there is just generally something wrong with her and she is anxious about it. She is worried there is a blood clot in her hand. She thinks her feetand hands are discolored. She thinks she has been having problems with her live for a long time andno one is listening to her. She has some dysuria. She was prescribed keflex for a UTI recently but did not complete the treatment because she was in a rehab facility and they were not giving it to her correctly. She denies any specific STI symptoms but was offered testing so would like to have it done. She has been drinking alcohol today. When asked about her numerous recent ED visits, including yesterday, pt states she just generally feels that something is wrong with her. When asked again what she is seeking today, she reports, I want someone to take me seriously. She also states, If youwant to send me home, that's fine. REVIEW OF SYSTEMS Review of Systems All other systems reviewed and are negative. PAST MEDICAL HISTORY Past Medical History[1] SURGICAL HISTORY Past Surgical History[2] CURRENT MEDICATIONS Current Medications[3] ALLERGIES Allergies[4] FAMILY HISTORY No family history on file. SOCIAL HISTORY Social History Socioeconomic History Marital status: Single Spouse name: Not on file Number of children: Not on file Years of education: Not on file Highest education level: Not on file Occupational History Not on file Tobacco Use Smoking status: Every Day Types: Cigarettes Smokeless tobacco: Never Vaping Use Vaping status: Former Substance and Sexual Activity Alcohol use: Not Currently Comment: sober since 07/2024 Drug use: Not Currently Comment: none for 2 weeks Sexual activity: Not Currently Comment: was prior to sober living Other Topics Concern Not on file Social History Narrative Not on file Social Drivers of Health Financial Resource Strain: Medium Risk (05/22/2020) Received from [facility] Overall Financial Resource Strain (CARDIA) Difficulty of Paying Living Expenses: Somewhat hard Food Insecurity: Unknown (10/12/2024) Received from [facility] Hunger Vital Sign Within the past 12 months, you worried that your food would run out before you got the money to buymore.: Never true Ran Out of Food in the Last Year: Not on file Recent Concern: Food Insecurity - Food Insecurity Present (09/25/2024) Received from [facility] Hunger Vital Sign Within the past 12 months, you worried that your food would run out before you got the money to buymore.: Sometimes true Within the past 12 months, the food you bought just didn't last and you didn't have money to get more.: Often true Transportation Needs: Unmet Transportation Needs (09/25/2024) Received from [facility] PRAPARE - Transportation Lack of Transportation (Medical): Yes Lack of Transportation (Non-Medical): Yes Physical Activity: Inactive (01/23/2019) Received from [facility] Exercise Vital Sign Days of Exercise per Week: 0 days Minutes of Exercise per Session: 0 min Stress: Not on file Social Connections: Not on file Personal Safety: At Risk (09/25/2024) Received from [facility] Humiliation, Afraid, Rape, and Kick questionnaire Within the last year, have you been afraid of your partner or ex-partner?: No Within the last year, have you been humiliated or emotionally abused in other ways by your partner or ex-partner?: Yes Within the last year, have you been kicked, hit, slapped, or otherwise physically hurt by your partner or ex-partner?: No Within the last year, have you been raped or forced to have any kind of sexual activity by your partner or ex-partner?: No Housing Stability: High Risk (09/25/2024) Received from [facility] Housing Stability Vital Sign In the last 12 months, was there a time when you were not able to pay the mortgage or rent on time?: Yes In the past 12 months, how many times have you moved where you were living?: 2 At any time in the past 12 months, were you homeless or living in a mcc (including now)?: No PHYSICAL EXAM BP 149/90 Pulse 104 Temp 98.4 F (36.9 C) (Oral) Resp 16 Wt 109.8 kg (242 lb) SpO2 96% Smoking Status Every Day Physical Exam Vitals reviewed. Constitutional: Appearance: She is not toxic-appearing. HENT: Head: Normocephalic and atraumatic. Right Ear: Hearing normal. Left Ear: Hearing normal. Eyes: General: Vision grossly intact. Cardiovascular: Rate and Rhythm: Regular rhythm. Tachycardia present. Heart sounds: Normal heart sounds. Pulmonary: Effort: Pulmonary effort is normal. Breath sounds: Normal breath sounds. Abdominal: General: There is no distension. Palpations: Abdomen is soft. Tenderness: There is no abdominal tenderness. There is no right CVA tenderness, left CVA tendernessor guarding. Musculoskeletal: Right hand: No swelling, deformity or tenderness. Normal range of motion. Normal strength. Normal sensation. Normal capillary refill. Cervical back: Normal range of motion. Comments: Small puncture wound on dorsal R hand, bandage in place, no active bleeding. Skin: General: Skin is warm and dry. Neurological: General: No focal deficit present. Mental Status: She is alert. Psychiatric: Mood and Affect: Affect is labile. ED COURSE & MEDICAL DECISION MAKING Dhaval Moon IS A 24 y.o. female who presented with Chief Complaint Patient presents with Anxiety Pt states, I just dont feel right. Pt reports putting a needle in her hand to use drugs but stopped before she pushed the drugs in. Pt then reports hyperventilating Urinary Pain Pt c/o pain and frequency . DDx includes, but not limited to: malingering, anxiety, intoxication, cystitis. Do not suspect pyelo. Plan - Symptom control/fluids: Medications - No data to display Results - Labs: Results for orders placed or performed during the hospital encounter of 10/30/24 HIV 1 AND 2 ANTIBODIES/P24 ANTIGEN Result Value Ref Range HIV-1/HIV-2 Ab With p24 Antigen Non Reactive Non Reactive BETA HCG, QUAL, BLOOD Result Value Ref Range HCG (Qual) Serum Negative Negative AFFIRM TEST (VAGINITIS DNA PROBE) ED ONLY Result Value Ref Range DNA Probe Tani Species Positive (A) Negative DNA Probe Gardnerella Negative Negative DNA Probe Trichomonas Negative Negative URINE DIPSTICK; REFLEX MICROSCOPY; REFLEX CULTURE PERFORMABLE Result Value Ref Range Color Yellow Yellow Appearance Urine Cloudy (A) Clear Glucose Urine Negative Negative Ketones Urine Negative Negative Specific [place] Urine 1.018 1.001 - 1.035 Blood Urine Trace (A) Negative pH Urine 6.5 5.0 - 7.0 Protein Urine Negative Negative Urobilinogen Urine 1.0 E.U./dL 0.2 E.U/dL, 1.0 E.U/dL Nitrites Urine Positive (A) Negative Leukocyte Esterase Large (A) Negative URINE MICROSCOPIC WITH REFLEX TO CULTURE Specimen: URINE - CLEAN CATCH Result Value Ref Range RBC Urine 3-5 (A) 0 - 2 /HPF WBC Urine > 20 (A) 0 - 5 /HPF Squamous/Epithelial Cells, Urine 0-2/hpf 0-2/hpf, 3-5/hpf = 1+ Bacteria PRESENT (A) ABSENT Pt seen at [facility] yesterday for abd pain--per discharge note, Labs are reassuring no significant abnormalities. CT showing cardiomegaly and small fat-containing hernia, no other acute intra-abdominal process. Discharged home with suspected gastritis. Unable to view results from labs. Seen in ED in [place], [place] on 10/12, sent from rehab facility with complaint that she was not receiving abx for UTI and wanted to be transferred to different facility, transferred to another detox facility. Seen at [facility] on 10/05 for ETOH intoxication, vaginal discharge, urinary sx. Dx with UTIand BV, sent home with keflex, which she did not complete as above. ED visit at [place] on 10/04 for ETOH intoxication, made med hold. Also ED visits on 10/03, 10/01, 09/28, 09/27. Admitted at [facility]'s 09/24 for ETOH withdrawal. As above, unclear exactly why she is visiting the ED today. Did recheck urine which is infected. With no fever or flank pain, do not suspect pyelo. Will tx with 7 days Bactrim and culture. Pt will beadvised to follow up with her PCP. Also sent clotrimazole for vaginal candidiasis. SW consulted as pt asking for assistance getting into treatment program. [facility] was consulted and pt has bed at [facility]. Will be dischrged. Dx: ICD-10-CM 1. Urinary tract infection with hematuria, site unspecified N39.0 R31.9 2. Alcohol use disorder F10.90 Medical Decision Making Problems Addressed: Alcohol use disorder: chronic illness or injury Urinary tract infection with hematuria, site unspecified: acute illness or injury Amount and/or Complexity of Data Reviewed Labs: ordered. Risk OTC drugs. Prescription drug management. Diagnosis or treatment significantly limited by social determinants of health. ED Course Prior medical records were reviewed. Patient's past medical history, social history, family historyand surgical history was reviewed. All pertinent labs and imaging results were reviewed by myself and the attending physician when appropriate. The patient was updated regarding findings, and was re-assessed during ED stay. Dispo: discharge Patient was prescribed the following medications for home: New Prescriptions CLOTRIMAZOLE 2 % CREAM Insert 1 Applicatorful vaginally at bedtime for 3 days. SULFAMETHOXAZOLE-TRIMETHOPRIM 800-160 MG PER TABLET Take 1 tablet by mouth 2 times daily for 7 days. Reasons to return to the ED, potential complications, expected course of the patient's condition, and recommended treatments were discussed with the patient. The patient was also instructed to followup with their primary care physician and/or any appropriate specialists. The patient expressed understanding and agreement, and will be discharged in good condition. This was an independent nurse practitioner visit. Voice recognition software was used in producing this note. Please excuse any grammatical or spelling errors. [1] Past Medical History: Diagnosis Date Alcohol abuse Asthma Drug abuse meth, none for 2 weeks Essential hypertension, benign [2] No past surgical history on file. [3] No current facility-administered medications for this encounter. Current Outpatient Medications Medication Sig Dispense Refill Clotrimazole 2 % Cream Insert 1 Applicatorful vaginally at bedtime for 3 days. 21 g 0 faMOTIdine 20 MG tablet Take 1 tablet by mouth 2 times daily. 60 tablet 1 Fluticasone-Salmeterol (ADVAIR HFA IN) Inhale. hydrOXYzine pamoate 50 MG capsule Take 1 capsule by mouth 3 times daily as needed for Anxiety. Losartan 50 MG tablet Take 1 tablet by mouth daily. Metoprolol 25 MG tab regular release Take 1 tablet by mouth 2 times daily. Multiple Vitamins-Minerals (Multivitamin w/ minerals, THERAPEUTIC-M,) tablet Take 1 tablet by mouthdaily. Ondansetron 4 MG Tab Dispersible tablet Take 1 tablet by mouth every 4 hours as needed for Nausea. Place on tongue 30 tablet 0 Sulfamethoxazole-trimethoprim 800-160 MG per tablet Take 1 tablet by mouth 2 times daily for 7 days. 14 tablet 0 [4] Allergies Allergen Reactions Penicillins SURJIT White 10/30/241931 [facility]08-23-2025 Hospital Discharge instructions* Discharge Instructions* Alexi Sotelo MD - 10/05/2024 8:39 PM EDT You are seen today for nausea, vomiting, drinking alcohol, you wanted to go to rehab for alcohol drinking, you are trying to quit. Urine shows signs of infection, first dose of antibiotic given in the ED. Vaginal swabs reveal bacterial vaginosis, chlamydia and gonorrhea are pending, check in MyChart for results. Prescriptions are printed for boric acid, Keflex. Schedule appointment with your PCP to follow-up in clinic. Go to rehab as discussed with the social worker assistant in the ED. If you develop severe abdominal pain, persistent nausea vomiting, fever, come back to emergency department * Attachments The following attachments cannot be sent through Care Everywhere. * Bacterial Vaginosis (Romanian) * UTI (Urinary Tract Infection): Female (Romanian) [facility] Discharge instructions* Discharge Instructions* Savannah Garcia DO - 10/03/2024 11:29 AM EDT Please do not immediately quit drinking cold turkey this can lead to withdrawal, injury, , please slowly wean yourself off alcohol. Please return to the ER should you show signs of withdrawal including hallucinations, tremors, sweating, inability to follow-up outpatient, should you change yourmind regarding care, our staff are always happy to reevaluate you. Please follow-up with outpatientsubstance abuse services below. Please follow-up with [facility] Rapid response emergency addiction crisis team They can assist with access to detox, medicated assisted treatment, Narcan training, peer recovery,spiritual counseling, linkage to primary dental and mental health care, case management, individual/group therapy, and obtaining benefits Please do not hesitate to return to the ER should you have withdrawal symptoms, inability to follow-up outpatient, new onset injury or any other medical complaint you would like to address documented in this encounterCurahealth Heritage [id number] History of Present illness Narrative* AISHA Salvador-Maribeth - 10/03/2024 7:49 AM EDT Social Work Progress Note Dhaval Moon 10/03/2024 Plan of Care Update: CHRISTY met with patient at request of MD. Patient is requesting assistance with getting into substance abuse treatment programming. She is agreeable to meeting with [facility] for assistance. [facility] to see patient later this AM. [facility] met with patient and at this time she is declining all treatment options [facility] was able to locate because patient wants to go to treatment with boyfriend and this is not an option at most facilities. Reportedly, patient and boyfriend are aware of a facility in [place] that they can go back to in one week that will take them both. Patient would like to dc in the meantime. She was provided with [facility] contact info should she change her mind about other treatment options. ED provider updated. Signed by: Neha PARKS * Savannah Garcia, DO - 10/03/2024 5:24 AM EDT Images from the original note were not included. 23-year-old female past medical history of ADHD, alcohol abuse, asthma, depression, presenting withconcerns of wanting to be admitted for detox. Patient states she was seen at [facility] day prior, was sent to a facility for detox however they did not have a bed so she was sent home. Patient statesshe drank 5 pints of liquor the night before, is not currently in withdrawal secondary to being intoxicated however she states when she withdrawals, she gets tremors, diaphoresis, hallucinations, andanxiety. Has then a member of partial hospitalization program in the past, however is not currentlygone to this program. Patient denies any chest pain or shortness of breath, endorses mild abdominaldiscomfort with nausea, no dysuria frequency urgency, vaginal discharge or bleeding, bright red dark black bloody stools or other medical complaints. Past Medical History: Diagnosis Date ADD (attention deficit disorder) ADHD Alcohol abuse Anxiety Asthma Depression Hypertension History reviewed. No pertinent surgical history. Allergies Allergen Reactions Penicillins Hives Social History Socioeconomic History Marital status: Single Spouse name: Not on file Number of children: Not on file Years of education: Not on file Highest education level: Not on file Occupational History Not on file Tobacco Use Smoking status: Every Day Current packs/day: 0.50 Types: Cigarettes Smokeless tobacco: Never Vaping Use Vaping status: Some Days Substance and Sexual Activity Alcohol use: Yes Comment: 1-3 pints per day Drug use: Yes Types: Marijuana/Cannabis, Methamphetamines Sexual activity: Not on file Other Topics Concern Not on file Social History Narrative Not on file Home Medications None Review of Systems Constitutional: Positive for appetite change. Negative for activity change, chills and fatigue. HENT: Negative for congestion and nosebleeds. Eyes: Negative for pain and discharge. Respiratory: Negative for apnea, cough, shortness of breath, wheezing and stridor. Cardiovascular: Negative for chest pain. Gastrointestinal: Positive for abdominal pain and nausea. Negative for abdominal distention, constipation, diarrhea and vomiting. Genitourinary: Negative for difficulty urinating, dysuria, flank pain, frequency, vaginal bleeding,vaginal discharge and vaginal pain. Musculoskeletal: Negative for arthralgias. Neurological: Negative for dizziness, tremors and light-headedness. Psychiatric/Behavioral: Negative for agitation, behavioral problems, confusion and decreased concentration. Physical Exam Constitutional: General: She is not in acute distress. Appearance: Normal appearance. She is not ill-appearing, toxic-appearing or diaphoretic. Comments: Resting comfortably in bed no acute distress HENT: Right Ear: External ear normal. Left Ear: External ear normal. Mouth/Throat: Mouth: Mucous membranes are moist. Eyes: Extraocular Movements: Extraocular movements intact. Cardiovascular: Rate and Rhythm: Normal rate and regular rhythm. Pulmonary: Effort: No respiratory distress. Breath sounds: No stridor. No wheezing, rhonchi or rales. Comments: Patient not visibly tachypneic, no accessory muscle use, no stridor, no new oxygen requirement Chest: Chest wall: No tenderness. Abdominal: Palpations: Abdomen is soft. Tenderness: There is no abdominal tenderness. There is no right CVA tenderness or left CVA tenderness. Comments: Abdomen soft nontender in all quadrants Musculoskeletal: Right lower leg: No edema. Left lower leg: No edema. Neurological: General: No focal deficit present. Mental Status: She is alert and oriented to person, place, and time. Cranial Nerves: No cranial nerve deficit. Comments: Intact strength and sensation in the upper and lower limb bilaterally, patient alert and oriented x 3 with decision-making capacity, patient afebrile, not tachycardic, without tremors, and without anxiety/diaphoresis at bedside Psychiatric: Mood and Affect: Mood normal. Behavior: Behavior normal. Thought Content: Thought content normal. Judgment: Judgment normal. Visit Vitals BP 136/88 Pulse 106 Temp 37 C (98.6 F) (Oral) Resp 18 SpO2 95% OB Status Unknown Smoking Status Every Day Procedures ED Course & MDM ED Course as of 10/03/24 1321 Crystal Oct 03, 2024 0719 Auto WBC: 8.5 [TZ] 0719 Hemoglobin: 12.9 [TZ] 0719 Hematocrit: 39.1 [TZ] 0719 Platelets: 281 [TZ] 0732 Sodium: 140 [TZ] 0732 Potassium: 4.3 [TZ] 0732 CO2: 28 [TZ] 0732 Anion Gap: 7 [TZ] 0732 Glucose: 90 [TZ] 0732 BUN: 14 [TZ] 0732 Creatinine: 0.69 [TZ] 0732 ALT (SGPT): 13 [TZ] 0732 AST (SGOT): 23 [TZ] 0732 Total Bilirubin: 0.5 [TZ] 0732 Lipase: 14 [TZ] 0732 hCG Quant: <1 [TZ] 0732 Magnesium: 1.9 [TZ] 0732 Ethanol Level: <10 [TZ] 1317 Patient's electrolytes were not clinically significant, no signs of acute kidney injury or liver enzyme elevation. No signs of leukocytosis anemia or thrombocytopenia on CBC, ethanol was negative, beta-hCG was negative, lipase and magnesium were in range. Patient was given fluid bolus for hydration and Zofran for nausea. Patient did not have any signs of active withdrawal while in the ER, notremors, hallucinations, delusions, anxiety, and patient is not diaphoretic. Patient is alert and oriented x 3 with decision-making capacity. Social work saw patient, and had [facility] evaluate for inpatient rehab, unfortunately patient declined admission without being able to be admitted with her significant other. Patient then requested to be discharged, and follow-up with the facility that accepts both of them in [place] within the week. Patient was educated in detail not to quit drinking cold turkey as this can lead to withdrawal, including seizures, tremors, hallucinations, delusions and . Patient stated she would not, and that she would try to slowly wean herself. Patient was therefore discharged with shared decision making decision above, given follow-up with [facility] and strict return precautions should she change her mind as our staff are always happy to reevaluate her. Patient was thankful and agreeable with plan. Patient's abdominal discomfort resolved prior to discharge. All questions were answered, patient was discharged in stable condition. [TZ] ED Course User Index [TZ] Savannah Garcia DO Clinical Impressions as of 10/03/24 1321 Encounter for medical screening examination Differential Diagnosis Considered pancreatitis versus alcohol withdrawal versus alcohol use disorder versus other Escalation of care including admission/observation considered-social work consult, inpatient rehab,reevaluation Discussed management with physician/healthcare provider/other source -social work, [facility] Chronic Conditions Affecting Care -alcohol abuse disorder Savannah Garcia, 10/03/24 0623 Savannah Verafanny, 10/03/24 1321 documented in this encounter[address]21-2025 Emergency department Note* ED Bed Hold Note - Cheryl Banks EMT-P - 10/03/2024 5:58 AM EDT Bed: BP-36 Expected date: Expected time: Means of arrival: Comments: triage [address]21-2025 Miscellaneous Notes* ED Bed Hold Note - Cheryl Banks EMT-P - 10/03/2024 5:58 AM EDT Bed: BP-36 Expected date: Expected time: Means of arrival: Comments: triage documented in [place] encounterJohn [place] [id number] History of Present illness Narrative* ARNAUD Salvador - 09/28/2024 10:32 AM EDT Social Work Progress Note Dhaval Moon 09/28/2024 Plan of Care Update: CHRISTY advised by ED provider patient is requesting assistance with getting into an alcohol detox program. Patient is agreeable to meeting [facility] for assistance. [facility] in to see patient. Patient has been accepted by [facility] and [facility] will be sending a ride for patient around 11am. [facility] to call this worker to provide ride info. ED provider updated. CHRISTY spoke to [facility] and patient is on their way to [facility]. Signed by: Neha PARKS * Raymond Duarte MD - 09/28/2024 6:55 AM EDT Images from the original note were not included. Dhaval Moon is a 23 y.o. female history of alcohol abuse presented ED requesting help for alcohol abuse. She tells me she drinks at least a pint a day, last drink was yesterday, does not sound like she has had DTs or seizures but has had withdrawal symptoms in the past. Has any belly pain, nausea, vomiting, diarrhea, current tremors, hallucinations. No SI or HI Past Medical History: Diagnosis Date ADD (attention deficit disorder) ADHD Alcohol abuse Anxiety Asthma Depression Hypertension History reviewed. No pertinent surgical history. Allergies Allergen Reactions Penicillins Hives Social History Socioeconomic History Marital status: Not on file Spouse name: Not on file Number of children: Not on file Years of education: Not on file Highest education level: Not on file Occupational History Not on file Tobacco Use Smoking status: Every Day Current packs/day: 0.50 Types: Cigarettes Smokeless tobacco: Never Vaping Use Vaping status: Some Days Substance and Sexual Activity Alcohol use: Yes Drug use: Yes Types: Marijuana/Cannabis, Methamphetamines Sexual activity: Not on file Other Topics Concern Not on file Social History Narrative Not on file Home Medications None Physical Exam Visit Vitals BP 133/86 Pulse 91 Temp 36.7 C (98 F) (Oral) Resp 14 Ht 1.549 m (61) Wt 109 kg (240 lb) SpO2 99% BMI 45.35 kg/m OB Status Unknown Smoking Status Every Day BSA 2.04 m CONSTITUTIONAL: Well-appearing and well-nourished. HEAD: Normocephalic, atraumatic. EYES: No conjunctival injection, no icterus. EARS: External ears appear normal. NOSE: Nose appears normal. No rhinorrhea. NECK: Trachea midline. RESPIRATORY: Normal chest excursion with respiration, no stridor. CARDIOVASCULAR: Regular rhythm. No cyanosis. GASTROINTESTINAL: Abdomen soft, non-distended, non-tender, without rigidity. NEUROLOGICAL: Awake, alert and oriented. Cranial nerves grossly intact, no weakness or numbness or tingling on examination, no fasciculations or tremors present PSYCHOLOGICAL: The patient's mood and manner are appropriate. Grooming and personal hygiene are appropriate. INTEGUMENTARY: Warm and dry. No rash noted. MSK: Medical Decision Making Patient is a 23 y.o. female presenting to the ED requesting help for alcohol abuse, clinically not going through withdrawal, vitals reassuring. Well- appearing here. I have discussed the case and consult with our social worker assistant and I considering labs however follow-up not waste/materials exchange specialist, well-appearing here, anticipate discharge to alcohol abuse center Patient seen by social work, discussed the case, they arranged for outpatient alcohol detoxification and treatment. Discharged to alcohol detox facility ED Course as of 09/28/24 0748 Sat Sep 28, 2024 0729 Reviewed external record went to outside facility 08/12/2024. She was in sober living, has severe history of alcohol abuse [AH] ED Course User Index [AH] Raymond Duarte MD Clinical Impressions as of 09/28/24 0748 Alcohol abuse Impression Alcohol abuse Raymond Duarte MD 09/28/24 0750 Raymond Duarte MD 09/28/24 1017 documented in this encounter[address]16-2025 Emergency department Note* ED Bed Hold Note - Damir Haider EMT-P - 09/28/2024 7:09 AM EDT Bed: BP-36 Expected date: Expected time: Means of arrival: Comments: TRIAGE [address]16-2025 Miscellaneous Notes* ED Bed Hold Note - Damir Haider EMT-P - 09/28/2024 7:09 AM EDT Bed: BP-36 Expected date: Expected time: Means of arrival: Comments: TRIAGE documented in this encounter[address]16-2025 NoteProcedure: Splint I personally supervised and inspected the stirrup to the left ankle. Splint placed by RN. The extremity is appropriately immobilized. Patient neurovascularly intact before and after splint application. AUTHENTICATED BY KEYANA KIRK, ON 10/16/2024 15:34:53[facility] 09-26-2024 Progress note* Quick Note - Trini Bermeo RN - 09/26/2024 3:27 PM EDT Pt discharged home with AVS. All questions and concerns addressed at bedside. Peripheral IV removedfully intact. All patient belongings returned. [id number] Miscellaneous Notes* Quick Note - Trini Bermeo RN - 09/26/2024 3:27 PM EDT Pt discharged home with AVS. All questions and concerns addressed at bedside. Peripheral IV removedfully intact. All patient belongings returned. * Plan of Care - Bryan Mustafa RN - 09/26/2024 4:11 AM EDT Problem: Injury Risk Goal: Absence of physical injury Outcome: Partially Met Goal: Absence of falls Outcome: Partially Met Problem: Fluid and Electrolyte Imbalance Goal: Absence of fluid volume deficit signs and symptoms Outcome: Partially Met Goal: Electrolytes within specified parameters Outcome: Partially Met Problem: Sleep Pattern Disturbance Goal: Appearance well-rested Outcome: Partially Met Problem: Violence, Self/Other-Directed, Risk of Goal: Absence of violence Outcome: Partially Met Problem: Transition Readiness Goal: Able to safely transition to next level of care Outcome: Partially Met Goal: Knowledge of care transition plan Outcome: Partially Met Goal: Knowledge of medication management Outcome: Partially Met Goal: Knowledge of need for follow-up care Outcome: Partially Met Goal: Participation in care planning Outcome: Partially Met Problem: Cognitive-Perceptual Pattern - Impaired Goal: Cognitive status restored to baseline Outcome: Partially Met Problem: Falls, Risk of Goal: Absence of falls Outcome: Partially Met Goal: Absence of physical injury Outcome: Partially Met * Quick Note - Malu Mckay LISW - 09/25/2024 2:07 PM EDT PARKING LINE PAINTER attempted to meet with patient but patient was being seen by other providers or was asleep and did not wake to PARKING LINE PAINTER attempts. Per chart, patient is on medical hold due to being under the influence. PARKING LINE PAINTER will plan to meet with patient tomorrow. Community Health Worker meeting with patient for resource needs. * Quick Note - Pablo Cummings MD - 09/25/2024 1:59 PM EDT HMS BRIEF NOTE Patient seen and examined in follow up from admission-- see completed H+P Pertinent details of the chart, labs and diagnostics have been reviewed Updates to Assessment and Plan Alcohol withdrawal Discussed with addiction medicine and patient to somnolent thus phenobarbital taper discontinued and started/Valium as needed for CIWA Pending labs, imaging, consults SW consult * Assessment & Plan Note - Elizabeth Castaneda CNP - 09/25/2024 10:26 AM EDTAssociated Problem(s): Cannabis use, uncomplicated - per collateral from significant other at bedside patient smoked cannabis once in the last month - reports purchasing from dispensary and is aware of risk of fentanyl contamination in all substances marketed on the street - recommend educating patient on risk of and signs of developing a use disorder * Assessment & Plan Note - Elizabeth Castaneda CNP - 09/25/2024 10:24 AM EDTAssociated Problem(s): Methamphetamine use (HCC) - reports no use in 2 months - unable to provide more details at this time - education on harm reduction added to AVS and discussed with significant other at bedside per patient's request * Assessment & Plan Note - Elizabeth Castaneda CNP - 09/25/2024 9:44 AM EDTAssociated Problem(s): Alcohol use disorder - reported consuming 1L of vodka on day of admission - not able to discuss treatment due to drowsiness, plan to have SUN visit 09/26 and provider will beavailable to follow up 09/27 - Child-Bell Class A, appropriate for naltrexone/vivitrol; recommend offering these prior to discharge - continue MV, FA, and thiamine 200mg IV daily for enhanced absorption and prevention of Wernicke'sEncephalopathy * Assessment & Plan Note - Elizabeth Castaneda CNP - 09/25/2024 9:43 AM EDTAssociated Problem(s): Alcohol withdrawal, uncomplicated (HCC) - BAL 17.1 on admission 09/24 - [...] benzodiazepines with CIWA or benzodiazepine taper for firstline treatment of alcohol withdrawal - educated patient on kindling effect, risk of severe symptoms increases with each subsequent withdrawal episode - seizure precautions * Plan of Care - Vikki Pollard RN - 09/25/2024 7:51 AM EDT Problem: Actual or potential alteration in health Goal: Absence of healthcare acquired conditions Outcome: Partially Met Goal: Knowledge of Interdisciplinary Plan of Care Outcome: Partially Met Goal: Knowledge of Enviroment Outcome: Partially Met Problem: Falls, Risk of Goal: Absence of falls Outcome: Partially Met Goal: Absence of physical injury Outcome: Partially Met * ED Attestation Note - Isabella Mazariegos MD - 09/25/2024 4:33 AM EDT ED Attestation: I personally saw the patient and made/approved the management plan and take responsibility for the patient management. History: History of alcohol abuse States drink earlier today, but is concern for alcohol withdrawal Exam: Tachycardic, anxious Hypertensive Abdomen soft, no rebound or rigidity MDM: Patient awake and alert. She is anxious appearing tachycardic and hypertensive. She is here with concern for alcohol withdrawal. Endorses significant alcohol use states that she drinks a liter of alcohol daily, drank earlier today but has not drank recently and is developing symptoms of withdrawal.Alcohol level 17.4 consistent with no recent alcohol use/current intoxication. Given her abnormal vital signs and symptoms with significant alcohol abuse, she is high risk for complicated alcohol withdrawal. Phenobarb was initiated and patient be admitted. Isabella Mazariegos MD 09/25/24 4:33 AM * ED Procedure Note - Kvng Rose DO - 09/25/2024 1:05 AM EDTAssociated Order(s): EKG 12-lead EKG 12-lead Date/Time: 09/25/2024 1:05 AM Performed by: Kvng Rose DO Authorized by: Oralia Mike PA-C BPM: 108 Comments: VT 162. QRS 80. QTc 466. Normal axis. Sinus tachycardia. Some artifact appreciated. Nonspecific EKG. documented in this [id number] NoteHMS DISCHARGE SUMMARY -- [facility] Dhaval Moon : 2000 Admitted: 09/24/2024 Discharge Date: 09/26/24 PCP Handoff Recommended Outpatient Testing Follow-up with PCP Results Pending At Discharge None Clinical Summary Dhaval Moon is a 23 y.o. female with history of alcoholism, hypertension, mood disorder presented to [facility] on 09/24/2024 with tremors of anxiety and [...] traZODone 50 MG tablet Commonly known as: JANESSAEL Physician(s) [facility] [address] [facility] [id number] Follow up in 1 week(s) Condition at Discharge: Stable Disposition: Home I reviewed discharge recommendations with the patient in person. Patient instructions, including activity, were given to the patient/family at discharge. On day of discharge I saw Dhaval Moon and spent: > 30 minutes on discharge. Completed by: Pablo Cmumings MD on 09/26/24, 2:36 PM (Please note that portions of this note may have been completed with a voice recognition program. Efforts were made to edit the dictations, but occasionally words are mis-transcribed.) AUTHENTICATED BY PABLO CUMMINGS, ON 09/27/2024 17:34:48[facility] 09-26-2024 Hospital course Narrative* Pablo Cummings MD - 09/26/2024 2:36 PM EDT Images from the original note were not included. [facility] DISCHARGE SUMMARY -- [facility] Dhaval Moon : 2000 Admitted: 09/24/2024 Discharge Date: 09/26/24 PCP Handoff Recommended Outpatient Testing Follow-up with PCP Results Pending At Discharge None Clinical Summary Dhaval Moon is a 23 y.o. female with history of alcoholism, hypertension, mood disorder presented to [facility] on 09/24/2024 with tremors of anxiety and [...] Restart home regimen. Breathing treatments as needed. Discharge Medications Discharge Medications Medications To Continue [...] hours as needed for wheezing, shortness of breathor cough . busPIRone 10 MG tablet Commonly [...] traZODone 50 MG tablet Commonly known as: JANESSAEL Physician(s) Follow Up: [facility] [address] [facility] [id number] Follow up in 1 week(s) Condition [...] the dictations, but occasionally words are mis-transcribed.) documented in this [id number] Consult note* Malu Mckay LISW - 09/26/2024 10:06 AM EDTAssociated Order(s): IP CONSULT TO CARE MANAGEMENT; IP CONSULT TO CARE MANAGEMENT Care Management Consult Note Date: 09/26/2024 Time: 10:06 AM Patient Name: Dhaval Moon Date of : 2000 Reason for Consult: Discharge needs Discharge Plan: D/C Disposition: Home Final D/C Agency/Destination: Home HME: None Reason for Choice: Patient/Family preference Plan A: Home Discharging Transportation Plan: Transportation Type: Auto, Cab Discharge Plan Status: PARKING LINE PAINTER met with patient to introduce self and role. Patient agreeable to conversation. PARKING LINE PAINTER verified patient's insurance. Patient does not have a PCP currently but may be leaving the area after discharge. PARKING LINE PAINTER added resources to AVS. PARKING LINE PAINTER discussed baseline and home environment. Patient is currently homeless but is working on getting [employer] to go to somewhere she can stay. Patient has good support via her friends. Patient denied having mobility issues and reported not using DME or needing HHC.Patient reported having Food [place] but is interested in food resources. Patient also open to housing resources in case she does not leave area. Patient agreeable to speaking with [facility]. PARKING LINE PAINTER sent W a message. PARKING LINE PAINTER will continue to follow and remain available. Assessment and Background Information: Living Arrangements: Homeless Caregiver Identified: No Support Systems: Spouse/significant other, Friends/neighbors Assistance Needed: Yes, with food and housing Type of Residence: Homeless Prior to Admission Home Care Services: No Does the patient need discharge transport arranged?: No Current Home Equipment: None SDOH Needs Addressed: Food Insecurity, Transportation Needs, Housing Stability Resources Provided - Food Insecurity: Printed Resources Provided - Transportation Needs: Printed Resources Provided - Housing Stability: Printed Holistic Assessment Medication adherence problem:: No History of falls in last 6 months:: No Family aware of the patient's advance care planning wishes:: No Do you have any cultural/spiritual connections or beliefs that would impact how we deliver your care?: No Chronic pain:: No [id number] Consult note* Malu Mckay LISW - 09/26/2024 10:06 AM EDT Associated Order(s): IP CONSULT TO CARE MANAGEMENT; IP CONSULT TO CARE MANAGEMENT Care Management Consult Note Date: 09/26/2024 Time: 10:06 AM Patient Name: Dhaval Moon Date of : 2000 Reason for Consult: Discharge needs Discharge Plan: D/C Disposition: Home Final D/C Agency/Destination: Home HME: None Reason for Choice: Patient/Family preference Plan A: Home Discharging Transportation Plan: Transportation Type: Auto, Cab Discharge Plan Status: PARKING LINE PAINTER met with patient to introduce self and role. Patient agreeable to conversation. PARKING LINE PAINTER verified patient's insurance. Patient does not have a PCP currently but may be leaving the area after discharge. PARKING LINE PAINTER added resources to AVS. PARKING LINE PAINTER discussed baseline and home environment. Patient is currently homeless but is working on getting [employer] to go to somewhere she can stay. Patient has good support via her friends. Patient denied having mobility issues and reported not using DME or needing HHC.Patient reported having Food [place] but is interested in food resources. Patient also open to housing resources in case she does not leave area. Patient agreeable to speaking with [facility]. PARKING LINE PAINTER sent [facility] a message. PARKING LINE PAINTER will continue to follow and remain available. Assessment and Background Information: Living Arrangements: Homeless Caregiver Identified: No Support Systems: Spouse/significant other, Friends/neighbors Assistance Needed: Yes, with food and housing Type of Residence: Homeless Prior to Admission Home Care Services: No Does the patient need discharge transport arranged?: No Current Home Equipment: None SDOH Needs Addressed: Food Insecurity, Transportation Needs, Housing Stability Resources Provided - Food Insecurity: Printed Resources Provided - Transportation Needs: Printed Resources Provided - Housing Stability: Printed Holistic Assessment Medication adherence problem:: No History of falls in last 6 months:: No Family aware of the patient's advance care planning wishes:: No Do you have any cultural/spiritual connections or beliefs that would impact how we deliver your care?: No Chronic pain:: No * Elizabeth Castaneda CNP - 09/25/2024 9:44 AM EDTAssociated Order(s): IP CONSULT TO ADDICTION MEDICINE Addiction Medicine Consult Note Patient Name: Dhaval Moon Admit Date: [id number] MR #: [id number] : 2000 Physicians: [facility] (Family) No ref. provider found (referring) [...] have SUN visit 09/26 and provider will beavailable to follow up 09/27 - Child-Bell Class A, appropriate for naltrexone/vivitrol; recommend offering these prior to discharge - continue MV, FA, and thiamine 200mg IV daily for enhanced absorption and prevention of Wernicke'sEncephalopathy * Alcohol withdrawal, uncomplicated (HCC) Assessment & [...] benzodiazepines with CIWA or benzodiazepine taper for firstline treatment of alcohol withdrawal - educated patient [...] that use has been for about 3 yearsand she also used to use methamphetamine but was able to stop on her own without issue and no use in over 2 months. She states she does want to discuss treatment when she is able to stay awake. She morillo s no questions or concerns. Substance Use History: [...] mg total) by mouth every night at bedtime. albuterol (PROVENTIL) 2.5 mg /3 mL (0.083 [...] mg total) by mouth daily Take 1 tablet(20 mg) by oral route once daily on [...] Patient Position: Lying) Pulse 98 Temp 98 F (36.7 C) (Oral) Resp 16 Ht 5' 1 Wt 111.4 kg (245 lb 9.5 oz) [...] Motor: No tremor or seizure activity. Coordination: Rdhccf-Pyxt-Ukiopd Test normal. Comments: drowsy Psychiatric: Attention and [...] PLT 275 09/25/2024 No results found for: BETAHCGUR No results found for: QTC No results found for: HEPCAB, HCVRNA, HEPBSAB, HEPBSAG, HIV1X2, RPR No results found for: AMPHUR, BARBUR, BENZUR, THCUR, COCAINESUR, URMETH, OPIATEUR, UROXYCODONE, FENTANYLUR, BUPUR Elizabeth Castaneda, AIRPORT CONTROL OPERATOR Thank you for allowing us to participate in the care of this patient. Please call [phone] or secure chat me for any questions [...] Resource Strain: Medium Risk (05/22/2020) Received from [facility] Overall Financial Resource Strain (CARDIA) Difficulty [...] Yes Physical Activity: Inactive (01/23/2019) Received from [facility] Exercise Vital Sign Days of Exercise per Week: 0 days Minutes of Exercise per Session: 0 min Housing Stability: High Risk (09/25/2024) Housing Stability Vital Sign Unable to Pay for Housing in the Last Year: Yes Number of Times Moved in the Last Year: 2 Homeless in the Last Year: No Cosigned by Laisha Garcia DO at 09/25/2024 1:28 PM EDT Associated attestation - Laisha Garcia DO - 09/25/2024 1:28 PM EDT I have reviewed the documentation by Elizabeth Castaneda CNP including any history, physical exam, diagnosis, assessment and plan of care. Discussed in detail about the patient and I agree withthe documentation and plan of care with any additions or exceptions as noted in my attestation below. 1) Alcohol use disorder 2) Alcohol withdrawal, uncomplicated 3) Cannabis use, uncomplicated -Agree with harm reduction measures reviewed. 4) Methamphetamine use -Recommend IOP or higher level of care if patient meets criteria for stimulant use disorder. documented in this [id number] Plan of care note* Plan of Care - Bryan Mustafa RN - 09/26/2024 4:11 AM EDT Problem: Injury Risk Goal: Absence of physical injury Outcome: Partially Met Goal: Absence of falls Outcome: Partially Met Problem: Fluid and Electrolyte Imbalance Goal: Absence of fluid volume deficit signs and symptoms Outcome: Partially Met Goal: Electrolytes within specified parameters Outcome: Partially Met Problem: Sleep Pattern Disturbance Goal: Appearance well-rested Outcome: Partially Met Problem: Violence, Self/Other-Directed, Risk of Goal: Absence of violence Outcome: Partially Met Problem: Transition Readiness Goal: Able to safely transition to next level of care Outcome: Partially Met Goal: Knowledge of care transition plan Outcome: Partially Met Goal: Knowledge of medication management Outcome: Partially Met Goal: Knowledge of need for follow-up care Outcome: Partially Met Goal: Participation in care planning Outcome: Partially Met Problem: Cognitive-Perceptual Pattern - Impaired Goal: Cognitive status restored to baseline Outcome: Partially Met Problem: Falls, Risk of Goal: Absence of falls Outcome: Partially Met Goal: Absence of physical injury Outcome: Partially Met [birth year] Progress note* Quick Note - Malu Mckay LISW - 09/25/2024 2:07 PM EDT PARKING LINE PAINTER attempted to meet with patient but patient was being seen by other providers or was asleep and did not wake to PARKING LINE PAINTER attempts. Per chart, patient is on medical hold due to being under the influence. PARKING LINE PAINTER will plan to meet with patient tomorrow. Community Health Worker meeting with patient for resource needs. [id number] Progress note* Quick Note - Pablo Cumminsg MD - 09/25/2024 1:59 PM EDT HMS BRIEF NOTE Patient seen and examined in follow up from admission-- see completed H+P Pertinent details of the chart, labs and diagnostics have been reviewed Updates to Assessment and Plan Alcohol withdrawal Discussed with addiction medicine and patient to somnolent thus phenobarbital taper discontinued and started/Valium as needed for CIWA Pending labs, imaging, consults SW consult [id number] Evaluation + Plan note* Assessment & Plan Note - Elizabeth Castaneda CNP - 09/25/2024 10:26 AM EDTAssociated Problem(s): Cannabis use, uncomplicated - per collateral from significant other at bedside patient smoked cannabis once in the last month - reports purchasing from dispensary and is aware of risk of fentanyl contamination in all substances marketed on the street - recommend educating patient on risk of and signs of developing a use disorder [id number] Evaluation + Plan note* Assessment & Plan Note - Elizabeth Castaneda CNP - 09/25/2024 10:24 AM EDTAssociated Problem(s): Methamphetamine use (HCC) - reports no use in 2 months - unable to provide more details at this time - education on harm reduction added to AVS and discussed with significant other at bedside per patient's request [id number] Hospital Discharge instructions* Discharge Instructions* Elizabeth Castaneda CNP - 09/25/2024 9:48 AM EDT Images from the original note were not included. Decreasing Risks of Alcohol Use Alcohol use can lead to serious adverse events including nutritional deficiencies, worsening of acute and chronic medical conditions, increased risks of accidents or negative consequences, and even . Below are harm reduction strategies that minimize some of the negative consequences of alcoholuse. Examples of strategies: - For example, one potential negative consequence of alcohol consumption is intoxicated driving. Harm reduction for alcohol would support assigning a designated skip load driver or taking a cab, as opposed to avoiding drinking at all. - Another potential negative consequence would be feeling hungover after a night of drinking. Harm reduction for alcohol would have you consume fewer drinks, or alternate each alcoholic drink with a glass of water. Harm Reduction Strategies Are you interested in trying some harm reduction strategies to reduce your alcohol use? Here are some things you can try: Set limits on your alcohol consumption, and stick to them--like limiting yourself to 2 drinks per day. Consume alcohol mindfully, paying attention to how much you consume, where, and when. You might even consider tracking your consumption or keeping a journal to track the metrics that are important toyou. Reflect on why you re drinking and what emotions you re feeling. Are you drinking to cope with negative emotions? Is there an alternative activity you could choose to cope with those emotions? Have a designated skip load driver for nights out, or plan to stay at a friend s house rather than drive home. Try abstinence periods. For instance, plan to skip drinking on Sundays, or take a break from alcohol during February. Set start and end times for your drinking and try to stay within those limits. For instance, only drinking between the hours of 5pm to 12am. Avoid drinking to help yourself fall asleep. Despite the immediate benefit of helping you feel drowsy, alcohol can actually make your sleep worse. Explore medication to curb your drinking. Medications like naltrexone and acamprosate can reduce your alcohol cravings and reduce your risk of relapse. ] Harm reduction is a set of practical strategies and ideas aimed at reducing negative consequences associated with drug use. Risks associated with drug use include: The transmission of diseases, like HIV & hepatitis C Infections, such as abscesses and endocarditis Overdose Other serious health conditions, like blood clots Prevent Overdose: Use fentanyl test strips to know whether the drug(s) you are using contain fentanyl, which carries a high risk of overdose. Reduce the amount of the drug you take at one time, especially if you have experienced an overdose recently or if you have not used drugs for a period of time. Use one drug at a time. Most fatal overdoses are the result of using more than one drug at the sametime. This includes alcohol, which can be incredibly dangerous to use in combination with other substances. Do not use alone. Have someone that you trust with you who knows what drugs you ve taken and can respond in case of an emergency. Prevent Infections: Not sharing any drug use-related equipment (including syringes, cottons, cookers, water, and straws) Use a new, sterile syringe for each injection. Cleaning out a used needle with bleach will reduce, but not eliminate, the risk of infections. A used needle will also cause more damage to your veins and tissues. Read the CDC s guidance on cleaning syringes. Use sterile water, cottons, cookers, and other equipment for each injection. Clean the injection site with soap and water or alcohol before each injection. Always wash your hands before preparing your drugs. Rotate your injection sites and avoid injecting in dangerous sites on the body. Practice good injection technique [place] Substance Use Treatment Resources Search for treatment by zip code: https://findtreatment.gov/ [facility] Call to schedule an outpatient appointment to be seen Monday or Monday PM [address], [address] [facility] [address] SAFE POINT: Free sterile, unused points/needles & pipes Walk up services /Mon 4-8pm and Sat 9a-1p [address] [email or web address] Walk in intake hours 9am-1pm Monday-Monday [address] [place] [address] Free fentanyl test strips & Narcan: https://thesoarinitiative.org * Discharge Instr - Care Coordination* Bebeto May - 09/26/2024 9:39 AM EDT Images from the original note were not included. [facility] Substance Abuse Rehabilitation Resources [facility] Alcohol and Drug Resources: https://www.[facility]/publichealth/programs/Delcwsm-hae-Dncy-Abuse/Alcohol-an o-Hfuf-Egjkkmn/ https://www.FindLocalTreatment.com/ Addiction affects everyone Support groups for families and individuals struggling with addiction [facility] [address] [address] [facility] [address] [place] [address] [place], [place] [address] (P) [phone] [facility] (Several locations) [address] [place], [place] [address] (P) [phone] WALK-IN INPATIENT DETOX CENTERS [facility] [address] [address] [facility] [address] [place], [place] [address] OUTPATIENT CENTERS [facility] [address] [place] [address] (Ask for Yelena or Tri with Addiction Medicine Team) (Call to schedule) [facility] (Several Locations) [address] [place], [place] [address] (P) [phone] (Walk-ins welcomed) [facility] [address] [facility] [address] [place] [address] (Walk-ins welcomed) [facility] [address] [place], [place] [address] (P) [phone] [facility] [address] [place] [address] [facility] [address] [place] [address] TRANSITIONAL HOUSING/SOBER LIVING [facility] [address] [place] [address] [facility] [address] [place] [address] [facility] [place] [phone] [facility] Scan the bar QR codes to be linked with applications for free Narcan Kits and Fentanyl Test Strips Smoking Cessation If you smoke, it is recommended that you quit. If you would like to quit smoking, you can contact the [employer] at 1-741-JPZRNOW, www.[employer] or talk with your doctor about tobacco cessation counseling and medications to help you stop smoking. * Attachments The following attachments cannot be sent through Care Everywhere. * 9 Ways to Cut Back on Drinking: Quick List (Romanian) * Alcohol: Taking Action: Video (Romanian) documented in this [id number] Consult note* Elizabeth Castaneda CNP - 09/25/2024 9:44 AM EDTAssociated Order(s): IP CONSULT TO ADDICTION MEDICINE Addiction Medicine Consult Note Patient Name: Dhaval Moon Admit Date: [id number] MR #: [id number] : 2000 Physicians: Mary Kay Bradley (Family) No ref. provider found (referring) [...] have SUN visit 09/26 and provider will beavailable to follow up 09/27 - Child-Bell Class A, appropriate for naltrexone/vivitrol; recommend offering these prior to discharge - continue MV, FA, and thiamine 200mg IV daily for enhanced absorption and prevention of Wernicke'sEncephalopathy * Alcohol withdrawal, uncomplicated (HCC) Assessment & [...] benzodiazepines with CIWA or benzodiazepine taper for firstline treatment of alcohol withdrawal - educated patient [...] that use has been for about 3 yearsand she also used to use methamphetamine but was able to stop on her own without issue and no use in over 2 months. She states she does want to discuss treatment when she is able to stay awake. She morillo s no questions or concerns. Substance Use History: [...] mg total) by mouth every night at bedtime. albuterol (PROVENTIL) 2.5 mg /3 mL (0.083 [...] mg total) by mouth daily Take 1 tablet(20 mg) by oral route once daily on [...] Patient Position: Lying) Pulse 98 Temp 98 F (36.7 C) (Oral) Resp 16 Ht 5' 1 Wt 111.4 kg (245 lb 9.5 oz) [...] Motor: No tremor or seizure activity. Coordination: Hrnene-Abxp-Gvhdmm Test normal. Comments: drowsy Psychiatric: Attention and [...] PLT 275 09/25/2024 No results found for: BETAHCGUR No results found for: QTC No results found for: HEPCAB, HCVRNA, HEPBSAB, HEPBSAG, HIV1X2, RPR No results found for: AMPHUR, BARBUR, BENZUR, THCUR, COCAINESUR, URMETH, OPIATEUR, UROXYCODONE, FENTANYLUR, BUPUR Elizabeth Castaneda, BAM Thank you for allowing us to participate in the care of this patient. Please call [phone] or secure chat me for any questions [...] Resource Strain: Medium Risk (05/22/2020) Received from [facility] Overall Financial Resource Strain (CARDIA) Difficulty [...] Yes Physical Activity: Inactive (01/23/2019) Received from [facility] Exercise Vital Sign Days of Exercise per Week: 0 days Minutes of Exercise per Session: 0 min Housing Stability: High Risk (09/25/2024) Housing Stability Vital Sign Unable to Pay for Housing in the Last Year: Yes Number of Times Moved in the Last Year: 2 Homeless in the Last Year: No Cosigned by Laisha Garcia DO at 09/25/2024 1:28 PM EDT Associated attestation - Laisha Garcia DO - 09/25/2024 1:28 PM EDT I have reviewed the documentation by Elizabeth Castaneda CNP including any history, physical exam, diagnosis, assessment and plan of care. Discussed in detail about the patient and I agree withthe documentation and plan of care with any additions or exceptions as noted in my attestation below. 1) Alcohol use disorder 2) Alcohol withdrawal, uncomplicated 3) Cannabis use, uncomplicated -Agree with harm reduction measures reviewed. 4) Methamphetamine use -Recommend IOP or higher level of care if patient meets criteria for stimulant use disorder. [id number] Evaluation + Plan note* Assessment & Plan Note - Elizabeth Castaneda CNP - 09/25/2024 9:44 AM EDTAssociated Problem(s): Alcohol use disorder - reported consuming 1L of vodka on day of admission - not able to discuss treatment due to drowsiness, plan to have SUN visit 09/26 and provider will beavailable to follow up 09/27 - Child-Bell Class A, appropriate for naltrexone/vivitrol; recommend offering these prior to discharge - continue MV, FA, and thiamine 200mg IV daily for enhanced absorption and prevention of Wernicke'sEncephalopathy [id number] Evaluation + Plan note* Assessment & Plan Note - Elizabeth Castaneda CNP - 09/25/2024 9:43 AM EDTAssociated Problem(s): Alcohol withdrawal, uncomplicated (HCC) - BAL 17.1 on admission 09/24 - [...] benzodiazepines with CIWA or benzodiazepine taper for firstline treatment of alcohol withdrawal - educated patient on kindling effect, risk of severe symptoms increases with each subsequent withdrawal episode - seizure precautions [id number] History of Present illness Narrative* García Santoro - 09/25/2024 8:19 AM EDT Spiritual Care Progress Note Completed by: García Santoro Person(s) Present During this Visit: Patient Not Available Time Spent in Direct Patient Care: 5 Narrative: Patient was not available at time of attempted visit. 05/09 chart writer support remains available to the patient. Patients Response to Pastoral Care: Other (see comment) (PNA) Planning for Future Visits: SURESH Santoro M.Div. [facility] Staff Zyglo Technician [phone] 09/25/24 0819 Visit Background Visit With Patient Not Available Visit By Staff Zyglo Technician Visit Progression Attempt;Introduction Visit Requested By Zyglo Technician Initiated Visit Source Zyglo Technician Initiated Visit Type Rounding Visit Circumstances and Events Routine Visit Visit Length (minutes) 5 Patient's Response to Pastoral Care Other (see comment) (PNA) Visit Planning PRN Spiritual Assessment Unable to Assess during this visit Denominational Assessment Unable to Assess during this visit Family assessment provided? Unable to asess during this visit documented in this [id number] Plan of care note* Plan of Care - Vikki Pollard RN - 09/25/2024 7:51 AM EDT Problem: Actual or potential alteration in health Goal: Absence of healthcare acquired conditions Outcome: Partially Met Goal: Knowledge of Interdisciplinary Plan of Care Outcome: Partially Met Goal: Knowledge of Enviroment Outcome: Partially Met Problem: Falls, Risk of Goal: Absence of falls Outcome: Partially Met Goal: Absence of physical injury Outcome: Partially Met [id number] Emergency department Note* Noemí Santillan RN - 09/25/2024 4:50 AM EDT Report called to 4th floor rn [id number] Emergency department Note* Noemí Santillan RN - 09/25/2024 4:50 AM EDT Report called to 4th floor rn * Airam Hernandez RN - 09/25/2024 2:59 AM EDT Pt alert and aware at this time. Able to make needs known. No s/s of distress noted .Resting comfortably in bed @ present. Safety maintained. Call arndt w/I reach. All questions and call light(s) answered * Airam Hernandez RN - 09/25/2024 12:16 AM EDT PT provided with warm blankets * Oralia Mike PA-C - 09/24/2024 11:20 PM EDT Chief Complaint: Alcohol Problem HPI: This is a 23-year-old female with past medical history of alcohol use disorder presenting to the EDfor possible withdrawal. Patient states she drank 1 L of vodka today. She endorses that she hashad withdrawals in the past and this feels [...] % -- -- 09/24/24 2228 132/86 98.6 F (37 C) Oral (!) 118 18 97 % 5' 1 111.1 kg (245 lb) Physical Exam Vitals [...] limits BASIC METABOLIC PANEL - Normal Narrative: [facility] has implemented the eGFR [...] Procedure Abnormality Status --------- ------ CBC Auto Differential[[id number]] Abnormal Final result Please view results for these tests on the individual orders. DRUGS OF ABUSE SCREEN, URINE No orders to display Procedures: Procedures MDM: MDM Number of Diagnoses or Management Options Alcohol withdrawal (HCC) Diagnosis management comments: This is a 23-year-old female with history of alcohol use disorder presenting to the ED for alcohol withdrawal. Patient presents with signs symptoms consistent with [...] alcohol withdrawal. Plan for hospitalization with monitored detoxificationand symptom triggered control. Patient was given thiamine and folate supplementation, IV fluids harleen phenobarb taper was initiated. Case was discussed [...] Resource Strain: Medium Risk (05/22/2020) Received from [facility] Overall Financial Resource Strain (CARDIA) Difficulty of Paying Living Expenses: Somewhat hard Food Insecurity: Food Insecurity Present (06/09/2023) Received from [facility] Hunger Vital Sign Worried About Running Out of Food in the Last Year: Sometimes true Ran Out of Food in the Last Year: Sometimes true Transportation Needs: No Transportation Needs (06/09/2023) Received from [facility] PRAPARE - Transportation Lack of Transportation (Medical): No Lack of Transportation (Non-Medical): No Physical Activity: Inactive (01/23/2019) Received from [facility] Exercise Vital Sign Days of Exercise per Week: 0 days Minutes of Exercise per Session: 0 min Stress: Not on file Social Connections: Not on file Intimate Partner Violence: Not on file Depression: At risk (05/28/2020) Received from [facility] PHQ-2 PHQ-9 Total Score: 19 Housing Stability: Unknown (06/09/2023) Received from [facility] Housing Stability Vital Sign Unable to [...] injection 195 mg (195 mg Intramuscular Given 09/25/24 0043) Followed by PHENobarbital injection 143 mg (has [...] tablet 0.5 mg (0.5 mg Oral Given 09/24/242316) Medication Reassessment: JCMEDEFFECTS: N/A Medications Considered but Not Given: None Prescription Medications Considered but Not Given: None Clinical Impression: 1. Alcohol withdrawal (HCC) Disposition: Hospitalize (Please note that portions of this note may have been completed with a voice recognition program. Efforts were made to edit the dictations but occasionally words are mis-transcribed.) Oralia Mike PA-C ED Advanced Practice Provider [facility] EMERGENCY DEPART[facility] [1] Social History Socioeconomic History Marital status: Single Tobacco Use Smoking status: Every Day Types: Cigarettes Substance and Sexual Activity Alcohol use: Yes Social Drivers of Health Financial Resource Strain: Medium Risk (05/22/2020) [email or web address] Overall Financial Resource Strain (CARDIA) Difficulty of Paying Living Expenses: Somewhat hard Food Insecurity: Food Insecurity Present (06/09/2023) Received from [facility] Hunger Vital Sign Worried About Running Out of Food in the Last Year: Sometimes true Ran Out of Food in the Last Year: Sometimes true Transportation Needs: No Transportation Needs (06/09/2023) Received from [facility] PRAPARE - Transportation Lack of Transportation (Medical): No Lack of Transportation (Non-Medical): No Physical Activity: Inactive (01/23/2019) Received from [facility] Exercise Vital Sign Days of Exercise per Week: 0 days Minutes of Exercise per Session: 0 min Housing Stability: Unknown (06/09/2023) Received from [facility] Housing Stability Vital Sign Unable to Pay for Housing in the Last Year: No Unstable Housing in the Last Year: No [2] Allergies Allergen Reactions Penicillin G Unknown When pt was younger Oralia Mike PA-C 09/25/24 0226 * Casey Cabrales RN - 09/24/2024 10:26 PM EDT Pt to ED c/o alcohol intoxication and wanting to withdrawal. Pt states drinking approximately 1 L of vodka today. States last drink was approximately an hour ago. Resp even and unlabored, skin wdi. BUBBA Mike at bedside. documented in this [id number] History and physical note* Shubham Currie MD - 09/25/2024 4:45 AM EDT [facility] -- [facility] Patient Name: Dhaval Moon : 2000 MR #: [id number] Admit Date: 09/24/2024 Physicians: No, Physician (Family); No ref. provider found (Referring) Dhaval Moon is a 23 y.o. female with history of alcoholism, hypertension, mood disorder presented to [facility] on 09/24/2024 with tremors of anxiety. Alcohol [...] Examination BP 160/96 Pulse 95 Temp 98.6 F (37 C) (Oral) Resp 16 Ht 5' 1 Wt 111.1 kg (245 lb) LMP 09/09/2024 [...] Types: Cigarettes Smokeless Tobacco Not on file [facility] Work Phone: 1(354) 131-112908-13-2025 NoteHMS HISTORY AND PHYSICAL -- [facility] Patient Name: Dhaval Moon : 2000 MR #: [id number] Admit Date: 09/24/2024 Physicians: No, Physician (Family); No ref. provider found (Referring) Dhaval Moon is a 23 y.o. female with history of alcoholism, hypertension, mood disorder presented to [facility] on 09/24/2024 with tremors of anxiety. Alcohol [...] degrees C) (Oral) Resp 16 Ht 5' 1 Wt 111.1 kg (245 lb) LMP 09/09/2024 [...] Smokeless Tobacco Not on file AUTHENTICATED BY SHUBHAM CURRIE ON 09/25/2024 05:02:02[facility] 09-25-2024 History and physical note* Shubham Currie MD - 09/25/2024 4:45 AM EDT [facility] -- [facility] Patient Name: Dhaavl Moon : 2000 MR #: [id number] Admit Date: 09/24/2024 Physicians: No, Physician (Family); No ref. provider found (Referring) Dhaval Moon is a 23 y.o. female with history of alcoholism, hypertension, mood disorder presented to [facility] on 09/24/2024 with tremors of anxiety. Alcohol [...] Examination BP 160/96 Pulse 95 Temp 98.6 F (37 C) (Oral) Resp 16 Ht 5' 1 Wt 111.1 kg (245 lb) LMP 09/09/2024 [...] Types: Cigarettes Smokeless Tobacco Not on file documented in this [id number] Physician Emergency department Note* ED Attestation Note - Isabella Mazariegos MD - 09/25/2024 4:33 AM EDT ED Attestation: I personally saw the patient and made/approved the management plan and take responsibility for the patient management. History: History of alcohol abuse States drink earlier today, but is concern for alcohol withdrawal Exam: Tachycardic, anxious Hypertensive Abdomen soft, no rebound or rigidity MDM: Patient awake and alert. She is anxious appearing tachycardic and hypertensive. She is here with concern for alcohol withdrawal. Endorses significant alcohol use states that she drinks a liter of alcohol daily, drank earlier today but has not drank recently and is developing symptoms of withdrawal.Alcohol level 17.4 consistent with no recent alcohol use/current intoxication. Given her abnormal vital signs and symptoms with significant alcohol abuse, she is high risk for complicated alcohol withdrawal. Phenobarb was initiated and patient be admitted. Isabella Mazariegos MD 09/25/24 4:33 AM [facility] Work Phone: 1(178) 781-972508-13-2025 Emergency department Note* Airam Hernandez RN - 09/25/2024 2:59 AM EDT Pt alert and aware at this time. Able to make needs known. No s/s of distress noted .Resting comfortably in bed @ present. Safety maintained. Call arndt w/I reach. All questions and call light(s) answered [id number] Procedure note* ED Procedure Note - Kvng Rose DO - 09/25/2024 1:05 AM EDTAssociated Order(s): EKG 12-lead EKG 12-lead Date/Time: 09/25/2024 1:05 AM Performed by: Kvng Rose DO Authorized by: Oralia Mike PA-C BPM: 108 Comments: VT 162. QRS 80. QTc 466. Normal axis. Sinus tachycardia. Some artifact appreciated. Nonspecific EKG. [facility] Work Phone: [phone] 188-529508-13-2025 Emergency department Note* Airam Hernandez RN - 09/25/2024 12:16 AM EDT PT provided with warm blankets [id number] Physician Emergency department Note* Oralia Mike PA-C - 09/24/2024 11:20 PM EDT Chief Complaint: Alcohol Problem HPI: This is a 23-year-old female with past medical history of alcohol use disorder presenting to the EDfor possible withdrawal. Patient states she drank 1 L of vodka today. She endorses that she hashad withdrawals in the past and this feels [...] % -- -- 09/24/24 2228 132/86 98.6 F (37 C) Oral (!) 118 18 97 % 5' 1 111.1 kg (245 lb) Physical Exam Vitals [...] limits BASIC METABOLIC PANEL - Normal Narrative: [facility] has implemented the eGFR [...] Procedure Abnormality Status --------- ------ CBC Auto Differential[[id number]] Abnormal Final result Please view results for these tests on the individual orders. DRUGS OF ABUSE SCREEN, URINE No orders to display Procedures: Procedures MDM: MDM Number of Diagnoses or Management Options Alcohol withdrawal (HCC) Diagnosis management comments: This is a 23-year-old female with history of alcohol use disorder presenting to the ED for alcohol withdrawal. Patient presents with signs symptoms consistent with [...] alcohol withdrawal. Plan for hospitalization with monitored detoxificationand symptom triggered control. Patient was given thiamine and folate supplementation, IV fluids harleen phenobarb taper was initiated. Case was discussed with my attending, Dr. Mazareigos who evaluated this patient at bedside and agrees with plan for hospitalization. Historian: patient External Record Review: None Social Determinants Impacting Care: Social Drivers of Health Tobacco Use: High Risk (09/24/2024) Patient History Smoking Tobacco Use: Every Day Smokeless Tobacco Use: Unknown Passive Exposure: Not on file Alcohol Use: Not on file Financial Resource Strain: Medium Risk (05/22/2020) Received from [facility] Overall Financial Resource Strain (CARDIA) Difficulty of Paying Living Expenses: Somewhat hard Food Insecurity: Food Insecurity Present (06/09/2023) Received from [facility] Hunger Vital Sign Worried About Running Out of Food in the Last Year: Sometimes true Ran Out of Food in the Last Year: Sometimes true Transportation Needs: No Transportation Needs (06/09/2023) Received from [facility] PRAPARE - Transportation Lack of Transportation (Medical): No Lack of Transportation (Non-Medical): No Physical Activity: Inactive (01/23/2019) Received from [facility] Exercise Vital Sign Days of Exercise per Week: 0 days Minutes of Exercise per Session: 0 min Stress: Not on file Social Connections: Not on file Intimate Partner Violence: Not on file Depression: At risk (05/28/2020) Received from [facility] PHQ-2 PHQ-9 Total Score: 19 Housing Stability: Unknown (06/09/2023) Received from [facility] Housing Stability Vital Sign Unable to [...] tablet 0.5 mg (0.5 mg Oral Given 09/24/242316) Medication Reassessment: JCMEDEFFECTS: N/A Medications Considered but Not Given: None Prescription Medications Considered but Not Given: None Clinical Impression: 1. Alcohol withdrawal (HCC) Disposition: Hospitalize (Please note that portions of this note may have been completed with a voice recognition program. Efforts were made to edit the dictations but occasionally words are mis-transcribed.) Oralia Mike PA-C ED Advanced Practice Provider [facility] EMERGENCY [facility]PART[facility] [1] Social History Socioeconomic History Marital status: Single Tobacco Use Smoking status: Every Day Types: Cigarettes Substance and Sexual Activity Alcohol use: Yes Social Drivers of Health Financial Resource Strain: Medium Risk (05/22/2020) Received from [facility] Overall Financial Resource Strain (CARDIA) Difficulty of Paying Living Expenses: Somewhat hard Food Insecurity: Food Insecurity Present (06/09/2023) Received from [facility] Hunger Vital Sign Worried About Running Out of Food in the Last Year: Sometimes true Ran Out of Food in the Last Year: Sometimes true Transportation Needs: No Transportation Needs (06/09/2023) Received from [facility] PRAPARE - Transportation Lack of Transportation (Medical): No Lack of Transportation (Non-Medical): No Physical Activity: Inactive (01/23/2019) Received from [facility] Exercise Vital Sign Days of Exercise per Week: 0 days Minutes of Exercise per Session: 0 min Housing Stability: Unknown (06/09/2023) Received from [facility] Housing Stability Vital Sign Unable to Pay for Housing in the Last Year: No Unstable Housing in the Last Year: No [2] Allergies Allergen Reactions Penicillin G Unknown When pt was younger Oralia Mike PA-C 09/25/24 0226 [id number] Emergency department Triage note* Casey Cabrales RN - 09/24/2024 10:26 PM EDT Pt to ED c/o alcohol intoxication and wanting to withdrawal. Pt states drinking approximately 1 L of vodka today. States last drink was approximately an hour ago. Resp even and unlabored, skin wdi. BUBBA Mike at bedside. [id number] Emergency department Note* Shay Tate RN - 08/12/2024 11:11 PM EDT [facility] transport called ride set up within 2 hours. [facility]06-30-2025 Emergency department Note* Shay Tate RN - 08/12/2024 11:11 PM EDT [facility] transport called ride set up within 2 hours. * Shay Tate RN - 08/12/2024 10:52 PM EDT Attempting to discharge pt home, pt asking for a meal tray and assistance with transport, pt unsureof address she is going to, attempting to find correct address on phone that needs charging. * Kvng Garcia APRN-AIRPORT CONTROL OPERATOR - 08/12/2024 9:16 PM EDT dEPARTMENT of Emergency Medicine CHIEF COMPLAINT Abdominal Pain (I think something wrong with my liver since 2022 from alcoholism, past 2 months fatigue, constipated, thirsty, URQ pain. People say I can be . Lives at sober living house past week), Vomiting (Yellow and bowels are yellow), Irregular Menses (A few days ago started bleedingheavy, thinks may have miscarriage), Sore Throat, Fatigue, and Constipation (Did have BM today ) HPI Dhaval Moon is a 23 y.o. female who presents with Abdominal Pain (I think something wrong with my liver since 2022 from alcoholism, past 2 months fatigue, constipated, thirsty, URQ pain. People say I can be . Lives at sober living house past week), Vomiting (Yellow and bowels are yellow), Irregular Menses (A few days ago started bleeding heavy, thinks may have miscarriage), Sore Throat, Fatigue, and Constipation (Did have BM today ) History of Present Illness This is a 23-year-old female with a history of chronic alcoholism presenting with abdominal pain. The patient reports experiencing right upper quadrant pain, which she attributes to her history of chronic alcoholism. The onset of this pain dates back to 2022. Despite periods of abstinence, she has had several recurrences of alcohol use. Currently, she is not consuming alcohol and has sought help from a rehabilitation center. At the rehab center, she was tested for hepatitis and was informed that there is a possibility of her having hepatitis B, although this diagnosis remains uncertain. Herpain, which has been intermittent over the years, has recently worsened, starting approximately 1.5months ago. She also reports persistent fatigue, shortness of breath, bloating, and difficulty with bowel movements. She has been experiencing yellow stools for the past 4 years and vomited yellow substance today. The patient has attended rehabilitation five times over the past 2.5 years. She has a primary care physician but often sees a nurse practitioner due to his unavailability. During her last visit, she was prescribed Zofran and hydroxyzine by a nurse practitioner. She was not prescribed antibiotics despite suspecting a severe UTI and experiencing back pain. She is currently menstruating, with an unusually heavy flow and abnormal blood color. She also reports chest pain and occasional palpitations.She experiences a sensation of fullness after drinking water, leading to vomiting of yellow substance. Recent lab tests at the rehab center showed elevated liver enzymes and lipids. She has limited access to healthy food options. Her last alcohol consumption was about 1.5 to 2 weeks ago. She has experienced seizures due to acute withdrawal in the past. SOCIAL HISTORY The patient admits to being a chronic alcoholic in the past and has had periods of drinking and notdrinking. She is currently not drinking but last drank about 2 weeks ago. REVIEW OF SYSTEMS Review of Systems Constitutional: Negative for chills, fatigue and fever. HENT: Negative for congestion, rhinorrhea and sore throat. Respiratory: Positive for shortness of breath. Negative for cough. Cardiovascular: Positive for chest pain. Negative for palpitations and leg swelling. Gastrointestinal: Positive for abdominal pain, constipation, nausea and vomiting. Negative for diarrhea. Genitourinary: Negative for dysuria, flank pain, frequency, hematuria and urgency. Musculoskeletal: Negative for myalgias. Skin: Negative for rash. Neurological: Negative for dizziness, light-headedness and headaches. PAST MEDICAL HISTORY Past Medical History: Diagnosis Date Alcohol abuse Asthma Drug abuse meth, none for 2 weeks Essential hypertension, benign SURGICAL HISTORY No past surgical history on file. CURRENT MEDICATIONS No current facility-administered medications for this encounter. Current Outpatient Medications Medication Sig Dispense Refill Fluticasone-Salmeterol (ADVAIR HFA IN) Inhale. hydrOXYzine pamoate 50 MG capsule Take 1 capsule by mouth 3 times daily as needed for Anxiety. Losartan 50 MG tablet Take 1 tablet by mouth daily. Metoprolol 25 MG tab regular release Take 1 tablet by mouth 2 times daily. Multiple Vitamins-Minerals (Multivitamin w/ minerals, THERAPEUTIC-M,) tablet Take 1 tablet by mouthdaily. faMOTIdine 20 MG tablet Take 1 tablet by mouth 2 times daily. 60 tablet 1 Ondansetron 4 MG Tab Dispersible tablet Take 1 tablet by mouth every 4 hours as needed for Nausea. Place on tongue 30 tablet 0 ALLERGIES Allergies Allergen Reactions Penicillins FAMILY HISTORY History reviewed. No pertinent family history. SOCIAL HISTORY Social History Socioeconomic History Marital status: Single Spouse name: Not on file Number of children: Not on file Years of education: Not on file Highest education level: Not on file Occupational History Not on file Tobacco Use Smoking status: Every Day Types: Cigarettes Smokeless tobacco: Not on file Vaping Use Vaping status: Every Day Substance and Sexual Activity Alcohol use: Not Currently Comment: none for 2 weeks Drug use: Not Currently Comment: none for 2 weeks Sexual activity: Not Currently Comment: was prior to sober living Other Topics Concern Not on file Social History Narrative Not on file Social Drivers of Health Financial Resource Strain: Medium Risk (05/22/2020) [email or web address] Overall Financial Resource Strain (CARDIA) Difficulty of Paying Living Expenses: Somewhat hard Food Insecurity: Food Insecurity Present (06/09/2023) Received from [facility] Hunger Vital Sign Worried About Running Out of Food in the Last Year: Sometimes true Ran Out of Food in the Last Year: Sometimes true Transportation Needs: No Transportation Needs (06/09/2023) Received from [facility] PRAPARE - Transportation Lack of Transportation (Medical): No Lack of Transportation (Non-Medical): No Physical Activity: Inactive (01/23/2019) Received from [facility] Exercise Vital Sign Days of Exercise per Week: 0 days Minutes of Exercise per Session: 0 min Stress: Not on file Social Connections: Not on file Personal Safety: Not on file Housing Stability: Unknown (06/09/2023) Received from [facility] Housing Stability Vital Sign Unable to Pay for Housing in the Last Year: No Number of Places Lived in the Last Year: Not on file Unstable Housing in the Last Year: No PHYSICAL EXAM BP 121/59 (BP Location: Left arm, BP Position: Sitting) Pulse 68 Temp 97.8 F (36.6 C) (Oral) Resp 16 Wt 104.6 kg (230 lb 9.6 oz) SpO2 97% Smoking Status Every Day Physical Exam Vitals and nursing note reviewed. Constitutional: Appearance: She is well-developed. HENT: Head: Normocephalic and atraumatic. Right Ear: External ear normal. Left Ear: External ear normal. Nose: Nose normal. Eyes: Conjunctiva/sclera: Conjunctivae normal. Pupils: Pupils are equal, round, and reactive to light. Cardiovascular: Rate and Rhythm: Normal rate and regular rhythm. Heart sounds: Normal heart sounds. No murmur heard. No friction rub. No gallop. Pulmonary: Effort: Pulmonary effort is normal. Breath sounds: Normal breath sounds. Abdominal: General: Bowel sounds are normal. There is no distension. Palpations: Abdomen is soft. There is no mass. Tenderness: There is no abdominal tenderness. There is no guarding or rebound. Hernia: No hernia is present. Musculoskeletal: General: Normal range of motion. Cervical back: Normal range of motion and neck supple. Skin: General: Skin is warm and dry. Neurological: Mental Status: She is alert and oriented to person, place, and time. Cranial Nerves: No cranial nerve deficit. Psychiatric: Behavior: Behavior normal. Thought Content: Thought content normal. Judgment: Judgment normal. ED COURSE & MEDICAL DECISION MAKING Assessment & Plan Initial Assessment: 23-year-old female with right upper quadrant pain, history of chronic alcoholism, possible hepatitis B, fatigue, bloating, difficulty breathing, and yellow vomiting. Differential Diagnosis: - Hepatitis B: History of possible hepatitis B, chronic alcoholism. Blood work to assess liver function. - Alcoholic liver disease: Chronic alcoholism, elevated liver enzymes reported. Blood work to assess liver function. - UTI: Reports back pain, history of suspected UTI. Consider urine analysis if symptoms persist. - : Reports bloating, heavy menstrual flow, and others suspecting . Consider test if symptoms persist. ED Course: - Blood work ordered - Chest x-ray ordered - EKG ordered Final Assessment: Comprehensive blood work, chest x-ray, and EKG ordered to evaluate liver function, respiratory, andcardiac status. Clinical Impression: - Right upper quadrant pain - Chest pain - history of EtOH abuse Disposition: Discharge: Home, prescriptions for zofran and pepcid. Follow-Up: Appointment with primary care physician next month. Medical Decision Making Amount and/or Complexity of Data Reviewed Labs: ordered. Decision-making details documented in ED Course. Radiology: ordered. Decision-making details documented in ED Course. ECG/medicine tests: ordered. Decision-making details documented in ED Course. Risk Prescription drug management. LABS Results for orders placed or performed during the hospital encounter of 08/12/24 [facility] 7 - ED Result Value Ref Range Sodium 137 135 - 145 mmol/L Potassium 4.3 3.5 - 5.0 mmol/L Chloride 106 98 - 108 mmol/L CO2 25 21 - 31 mmol/L Glucose 88 Nonfastin-179 mg/dL; Fastin-99 mg/dL BUN 6 (L) 7 - 25 mg/dL Creatinine 0.54 0.50 - 1.20 mg/dL Bun/Crea Ratio 11 Osmolality (Calculated) 285 278 - 305 mOsm/kg Anion Gap 10 7 - 17 mmol/L eGFR, CKD-EPI, Female >90 >=60 mL/min/1.73m2 HEPATIC FUNCTION PANEL Result Value Ref Range Albumin 4.0 3.5 - 5.0 g/dL Bilirubin Direct 0.1 <0.3 mg/dL Bilirubin Total 0.8 <1.5 mg/dL ALP 59 32 - 126 U/L ALT 8 (L) 9 - 48 U/L AST 17 10 - 39 U/L Total Protein 7.3 6.4 - 8.3 g/dL MAGNESIUM Result Value Ref Range Magnesium 1.9 1.6 - 2.6 mg/dL BETA HCG, QUAL, BLOOD Result Value Ref Range HCG (Qual) Serum Negative Negative LIPASE Result Value Ref Range Lipase 8 (L) 11 - 82 U/L CBC AND ELECTRONIC DIFF Result Value Ref Range WBC Count 7.84 3.99 - 11.19 K/uL RBC Count 4.19 3.91 - 5.04 M/uL Hemoglobin 13.1 11.4 - 15.2 g/dL Hematocrit 40.3 34.9 - 44.3 % Mean Cell Volume 96.2 79.6 - 97.7 fL Mean Cell Hgb 31.3 25.9 - 33.9 pg Mean Cell Hgb Conc 32.5 31.4 - 35.9 g/dL RBC Distribution 12.9 10.8 - 14.9 % Platelet Count 292 150 - 393 K/uL Mean Platelet Volume DIFF STATUS Electronic Differential Segs + Bands Auto 48.8 % Immature Grans % 0.3 % Lymphocyte % Auto 39.9 % Monocyte % Auto 7.9 % Eosinophil % Auto 2.8 % Basophil % Auto 0.3 % Nucleated RBC 0.0 <=0.2 /100 WBC Segs + Bands,Absolute Auto 3.83 1.64 - 7.28 K/uL Immature Grans Absolute <0.04 <=0.08 K/uL Abs Lymph Auto 3.13 1.16 - 3.51 K/uL Abs [place] Auto 0.62 0.22 - 0.87 K/uL Abs Eos Auto 0.22 0.00 - 0.42 K/uL Abs Baso Auto <0.04 0.00 - 0.15 K/uL PROTIME-INR Result Value Ref Range PT 13.7 11.9 - 14.2 sec INR 1.0 0.9 - 1.1 PTT Result Value Ref Range PTT 27.1 24.0 - 34.3 sec TSH Result Value Ref Range TSH 1.069 0.550 - 4.780 uIU/mL T4 FREE Result Value Ref Range Free T4 1.04 0.89 - 1.76 ng/dL ALCOHOL (ETHANOL),BLOOD Result Value Ref Range Alcohol, Serum <10 <10 mg/dL POCT RAPID ANTIBODY TEST (ORAQUICK) HIV-1/2 Result Value Ref Range HIV 1/2 Ab, manual enter Non-reactive URINALYSIS REFLEX TO CULTURE PERFORMABLE Result Value Ref Range Color Yellow Yellow Appearance Urine Clear Clear Glucose Urine Negative Negative Ketones Urine Negative Negative Specific [place] Urine 1.013 1.001 - 1.035 Blood Urine Large (A) Negative pH Urine 5.5 5.0 - 7.0 Protein Urine Trace (A) Negative Urobilinogen Urine 0.2 E.U./dL 0.2 E.U/dL, 1.0 E.U/dL Nitrites Urine Negative Negative Leukocyte Esterase Negative Negative RBC Urine >25 (A) 0 - 2 /HPF WBC Urine 0 - 5 0 - 5 /HPF Squamous/Epithelial Cells, Urine 6-10/hpf = 2+ (A) 0-2/hpf, 3-5/hpf = 1+ Bacteria TRACE (A) ABSENT RADIOLOGY XR CHEST PA AND LATERAL 2 VIEWS Final Result IMPRESSION: No acute cardiopulmonary disease EKG done and interpreted by ED physician MEDICATIONS DURING VISIT Medications GI Cocktail (ED/CDU) (40 mL Oral Given 08/12/242153) Ondansetron (ZOFRAN-ODT) disintegrating tablet 4 mg (4 mg Oral Given 08/12/242153) faMOTIdine (PEPCID) tablet 20 mg (20 mg Oral Given 08/12/242153) Patient was prescribed the following medications for home: New Prescriptions FAMOTIDINE 20 MG TABLET Take 1 tablet by mouth 2 times daily. ONDANSETRON 4 MG TAB DISPERSIBLE TABLET Take 1 tablet by mouth every 4 hours as needed for Nausea. Place on tongue Dx: ICD-10-CM 1. Generalized abdominal pain R10.84 2. Chest pain, unspecified type R07.9 ED Course Prior medical records were reviewed. Patient's past medical history, social history, family historyand surgical history was reviewed. All pertinent labs and imaging results were reviewed and interpreted by myself and the attending physician. The patient was updated regarding findings, and was re-assessed during ED stay. Dispo Reasons to return to the ED, potential complications, expected course of the patient's condition, and recommended treatments were discussed with the patient. The patient was also instructed to followup with their primary care physician and/or any appropriate specialists. The patient expressed understanding and agreement, and will be discharged in good condition. Juanita Hugo MD was included in all aspects of care including assessment, plan, and diagnosis; Juanita Hugo MD was physically present to examine the patient. SURJIT Burroughs 08/12/242216 * Cassandra Espinosa - 08/12/2024 8:37 PM EDTSummary: HealthNow Encounter HealthNow Needs Assessment Encounter Patient: Dhaval Moon Date/Time: 08/12/2024 8:37 PM The Health Promotion Advocate (HPA) approached the patient and introduced self as the HealthNow team. HPA offered needs assessment and discussed participation in HealthNow activities as voluntary. Patient accepted. Patient education on the following was discussed: substance use, sexual health, mental health, and harm/risk reduction Patient resources on the following were given: general resource list, healthcare related resource list, mental health resource list, risk reduction resource list, sexual health resource list, HealthNow program flyer, and Housing Resources, Dental care tips HIV POC Rapid Test Documentation [facility] offered (Oraquick) POC rapid HIV antibody test and the patient accepted. The test result was negative. HPA discussed test results with the patient and provided education. Cassandra Espinosa Health Promotion Advocate (HPA) HealthNow Program Department of Emergency Medicine * Juanita Hugo MD - 08/12/2024 5:40 PM EDT Nurse Practitioner Attestation for Shared Visits Pertinent Hx:Dhaval Moon is a 23 y.o. female who presents with RUQ pain x 1.5 years. States she was told while in rehab she was told she had a liver problem and possibly hepatitis. States she vomits daily and has had yellow stool x 1 year. Also states she has touse colace to have BMs. Has associated fatigue SOB/ chest pain - for 1.5 years. No syncope Irregular menses - has had heavy bleeding for several days. States she has an irregular periods regularly. Chief Complaint Patient presents with Abdominal Pain I think something wrong with my liver since 2022 from alcoholism, past 2 months fatigue, constipated, thirsty, URQ pain. People say I can be . Lives at sober living house past week Vomiting Yellow and bowels are yellow Irregular Menses A few days ago started bleeding heavy, thinks may have miscarriage Sore Throat Fatigue Constipation Did have BM today Review of Systems <<For Level 5, 10 or more systems>> Review of Systems has been reviewed and is otherwise negative unless noted. Dhaval Moon has a past medical history of Alcohol abuse, Asthma, Drug abuse, and Essential hypertension, benign. Vitals: 08/12/24 1625 BP: 138/65 Pulse: 82 Resp: 20 Temp: 97.8 F (36.6 C) SpO2: 99% Pertinent Exam: awake, alert, oriented. Head NCAT, no scleral icterus, skin wihtout jaundice, PERRL, heart regular rate and rhythm without murmurs, rubs or gallops, lungs clear to ascultation bilaterally, abdomen soft, nontender and nondistended, no peripheral edema Juanita Hugo MD XR CHEST PA AND LATERAL 2 VIEWS Final Result IMPRESSION: No acute cardiopulmonary disease Results for orders placed or performed during the hospital encounter of 08/12/24 [facility] 7 - ED Result Value Ref Range Sodium 137 135 - 145 mmol/L Potassium 4.3 3.5 - 5.0 mmol/L Chloride 106 98 - 108 mmol/L CO2 25 21 - 31 mmol/L Glucose 88 Nonfastin-179 mg/dL; Fastin-99 mg/dL BUN 6 (L) 7 - 25 mg/dL Creatinine 0.54 0.50 - 1.20 mg/dL Bun/Crea Ratio 11 Osmolality (Calculated) 285 278 - 305 mOsm/kg Anion Gap 10 7 - 17 mmol/L eGFR, CKD-EPI, Female >90 >=60 mL/min/1.73m2 HEPATIC FUNCTION PANEL Result Value Ref Range Albumin 4.0 3.5 - 5.0 g/dL Bilirubin Direct 0.1 <0.3 mg/dL Bilirubin Total 0.8 <1.5 mg/dL ALP 59 32 - 126 U/L ALT 8 (L) 9 - 48 U/L AST 17 10 - 39 U/L Total Protein 7.3 6.4 - 8.3 g/dL MAGNESIUM Result Value Ref Range Magnesium 1.9 1.6 - 2.6 mg/dL BETA HCG, QUAL, BLOOD Result Value Ref Range HCG (Qual) Serum Negative Negative LIPASE Result Value Ref Range Lipase 8 (L) 11 - 82 U/L CBC AND ELECTRONIC DIFF Result Value Ref Range WBC Count 7.84 3.99 - 11.19 K/uL RBC Count 4.19 3.91 - 5.04 M/uL Hemoglobin 13.1 11.4 - 15.2 g/dL Hematocrit 40.3 34.9 - 44.3 % Mean Cell Volume 96.2 79.6 - 97.7 fL Mean Cell Hgb 31.3 25.9 - 33.9 pg Mean Cell Hgb Conc 32.5 31.4 - 35.9 g/dL RBC Distribution 12.9 10.8 - 14.9 % Platelet Count 292 150 - 393 K/uL Mean Platelet Volume DIFF STATUS Electronic Differential Segs + Bands Auto 48.8 % Immature Grans % 0.3 % Lymphocyte % Auto 39.9 % Monocyte % Auto 7.9 % Eosinophil % Auto 2.8 % Basophil % Auto 0.3 % Nucleated RBC 0.0 <=0.2 /100 WBC Segs + Bands,Absolute Auto 3.83 1.64 - 7.28 K/uL Immature Grans Absolute <0.04 <=0.08 K/uL Abs Lymph Auto 3.13 1.16 - 3.51 K/uL Abs [place] Auto 0.62 0.22 - 0.87 K/uL Abs Eos Auto 0.22 0.00 - 0.42 K/uL Abs Baso Auto <0.04 0.00 - 0.15 K/uL PROTIME-INR Result Value Ref Range PT 13.7 11.9 - 14.2 sec INR 1.0 0.9 - 1.1 PTT Result Value Ref Range PTT 27.1 24.0 - 34.3 sec EKG Interpretation Interpreted by me Rhythm: normal sinus Rate: normal [place]: normal Ectopy: none ST Segments: normal T Waves: inversion in aVr, V1, III Q Waves: none Clinical Impression: non-specific EKG Juanita Hugo MD Impression & Plan: RUQ abdominal pain x 1.5 years - this is a chronic problem. Exam here unremarkable and no jaundice,scleral icterus or other abnormality on exam other than mild diffuse tenderness with deep palpation. Patient states distended but abdomen soft and non distended here. Labs normal. Given chronic issuemay follow up with PCP SOB/CP x 1 year. No PE risk factors and low risk by wells. CXR with no PE, EKG with no acute ischemia or arrythmia.Patient may continue to follow up with PCP Medical Decision Making Amount and/or Complexity of Data Reviewed External Data Reviewed: labs, radiology and notes. Details: Baseline labs, most recent 3 ED notes, most recent labs, CT AP from 2021 that showed hepatic steatosis but was otherwise normal Labs: ordered. Decision-making details documented in ED Course. Radiology: ordered. Decision-making details documented in ED Course. ECG/medicine tests: ordered and independent interpretation performed. Decision- making details documented in ED Course. Risk Prescription drug management. On 08/12/2024 I saw and evaluated the patient with CRISTY. I provided a substantive portion of the carefor this patient. I personally performed all aspects of the medical decision making for this encounter. I have reviewed and verified this with the CRISTY so that it accurately reflects our care Juanita Hugo MD 08/12/24 0935 * Fanny Roth RN - 08/12/2024 4:28 PM EDT [facility]* Shay Tate RN - 08/12/2024 10:52 PM EDT Attempting to discharge pt home, pt asking for a meal tray and assistance with transport, pt unsureof address she is going to, attempting to find correct address on phone that needs charging. [facility] Physician Emergency department Note* Kvng Garcia APRN-AIRPORT CONTROL OPERATOR - 08/12/2024 9:16 PM EDT dEPARTMENT of Emergency Medicine CHIEF COMPLAINT Abdominal Pain (I think something wrong with my liver since 2022 from alcoholism, past 2 months fatigue, constipated, thirsty, URQ pain. People say I can be . Lives at sober living house past week), Vomiting (Yellow and bowels are yellow), Irregular Menses (A few days ago started bleedingheavy, thinks may have miscarriage), Sore Throat, Fatigue, and Constipation (Did have BM today ) HPI Dhaval Moon is a 23 y.o. female who presents with Abdominal Pain (I think something wrong with my liver since 2022 from alcoholism, past 2 months fatigue, constipated, thirsty, URQ pain. People say I can be . Lives at sober living house past week), Vomiting (Yellow and bowels are yellow), Irregular Menses (A few days ago started bleeding heavy, thinks may have miscarriage), Sore Throat, Fatigue, and Constipation (Did have BM today ) History of Present Illness This is a 23-year-old female with a history of chronic alcoholism presenting with abdominal pain. The patient reports experiencing right upper quadrant pain, which she attributes to her history of chronic alcoholism. The onset of this pain dates back to 2022. Despite periods of abstinence, she has had several recurrences of alcohol use. Currently, she is not consuming alcohol and has sought help from a rehabilitation center. At the rehab center, she was tested for hepatitis and was informed that there is a possibility of her having hepatitis B, although this diagnosis remains uncertain. Herpain, which has been intermittent over the years, has recently worsened, starting approximately 1.5months ago. She also reports persistent fatigue, shortness of breath, bloating, and difficulty with bowel movements. She has been experiencing yellow stools for the past 4 years and vomited yellow substance today. The patient has attended rehabilitation five times over the past 2.5 years. She has a primary care physician but often sees a nurse practitioner due to his unavailability. During her last visit, she was prescribed Zofran and hydroxyzine by a nurse practitioner. She was not prescribed antibiotics despite suspecting a severe UTI and experiencing back pain. She is currently menstruating, with an unusually heavy flow and abnormal blood color. She also reports chest pain and occasional palpitations.She experiences a sensation of fullness after drinking water, leading to vomiting of yellow substance. Recent lab tests at the rehab center showed elevated liver enzymes and lipids. She has limited access to healthy food options. Her last alcohol consumption was about 1.5 to 2 weeks ago. She has experienced seizures due to acute withdrawal in the past. SOCIAL HISTORY The patient admits to being a chronic alcoholic in the past and has had periods of drinking and notdrinking. She is currently not drinking but last drank about 2 weeks ago. REVIEW OF SYSTEMS Review of Systems Constitutional: Negative for chills, fatigue and fever. HENT: Negative for congestion, rhinorrhea and sore throat. Respiratory: Positive for shortness of breath. Negative for cough. Cardiovascular: Positive for chest pain. Negative for palpitations and leg swelling. Gastrointestinal: Positive for abdominal pain, constipation, nausea and vomiting. Negative for diarrhea. Genitourinary: Negative for dysuria, flank pain, frequency, hematuria and urgency. Musculoskeletal: Negative for myalgias. Skin: Negative for rash. Neurological: Negative for dizziness, light-headedness and headaches. PAST MEDICAL HISTORY Past Medical History: Diagnosis Date Alcohol abuse Asthma Drug abuse meth, none for 2 weeks Essential hypertension, benign SURGICAL HISTORY No past surgical history on file. CURRENT MEDICATIONS No current facility-administered medications for this encounter. Current Outpatient Medications Medication Sig Dispense Refill Fluticasone-Salmeterol (ADVAIR HFA IN) Inhale. hydrOXYzine pamoate 50 MG capsule Take 1 capsule by mouth 3 times daily as needed for Anxiety. Losartan 50 MG tablet Take 1 tablet by mouth daily. Metoprolol 25 MG tab regular release Take 1 tablet by mouth 2 times daily. Multiple Vitamins-Minerals (Multivitamin w/ minerals, THERAPEUTIC-M,) tablet Take 1 tablet by mouthdaily. faMOTIdine 20 MG tablet Take 1 tablet by mouth 2 times daily. 60 tablet 1 Ondansetron 4 MG Tab Dispersible tablet Take 1 tablet by mouth every 4 hours as needed for Nausea. Place on tongue 30 tablet 0 ALLERGIES Allergies Allergen Reactions Penicillins FAMILY HISTORY History reviewed. No pertinent family history. SOCIAL HISTORY Social History Socioeconomic History Marital status: Single Spouse name: Not on file Number of children: Not on file Years of education: Not on file Highest education level: Not on file Occupational History Not on file Tobacco Use Smoking status: Every Day Types: Cigarettes Smokeless tobacco: Not on file Vaping Use Vaping status: Every Day Substance and Sexual Activity Alcohol use: Not Currently Comment: none for 2 weeks Drug use: Not Currently Comment: none for 2 weeks Sexual activity: Not Currently Comment: was prior to sober living Other Topics Concern Not on file Social History Narrative Not on file Social Drivers of Health Financial Resource Strain: Medium Risk (05/22/2020) Received from [facility] Overall Financial Resource Strain (CARDIA) Difficulty of Paying Living Expenses: Somewhat hard Food Insecurity: Food Insecurity Present (06/09/2023) Received from [facility] Hunger Vital Sign Worried About Running Out of Food in the Last Year: Sometimes true Ran Out of Food in the Last Year: Sometimes true Transportation Needs: No Transportation Needs (06/09/2023) Received from [facility] PRAPARE - Transportation Lack of Transportation (Medical): No Lack of Transportation (Non-Medical): No Physical Activity: Inactive (01/23/2019) Received from [facility] Exercise Vital Sign Days of Exercise per Week: 0 days Minutes of Exercise per Session: 0 min Stress: Not on file Social Connections: Not on file Personal Safety: Not on file Housing Stability: Unknown (06/09/2023) Received from [facility] Housing Stability Vital Sign Unable to Pay for Housing in the Last Year: No Number of Places Lived in the Last Year: Not on file Unstable Housing in the Last Year: No PHYSICAL EXAM BP 121/59 (BP Location: Left arm, BP Position: Sitting) Pulse 68 Temp 97.8 F (36.6 C) (Oral) Resp 16 Wt 104.6 kg (230 lb 9.6 oz) SpO2 97% Smoking Status Every Day Physical Exam Vitals and nursing note reviewed. Constitutional: Appearance: She is well-developed. HENT: Head: Normocephalic and atraumatic. Right Ear: External ear normal. Left Ear: External ear normal. Nose: Nose normal. Eyes: Conjunctiva/sclera: Conjunctivae normal. Pupils: Pupils are equal, round, and reactive to light. Cardiovascular: Rate and Rhythm: Normal rate and regular rhythm. Heart sounds: Normal heart sounds. No murmur heard. No friction rub. No gallop. Pulmonary: Effort: Pulmonary effort is normal. Breath sounds: Normal breath sounds. Abdominal: General: Bowel sounds are normal. There is no distension. Palpations: Abdomen is soft. There is no mass. Tenderness: There is no abdominal tenderness. There is no guarding or rebound. Hernia: No hernia is present. Musculoskeletal: General: Normal range of motion. Cervical back: Normal range of motion and neck supple. Skin: General: Skin is warm and dry. Neurological: Mental Status: She is alert and oriented to person, place, and time. Cranial Nerves: No cranial nerve deficit. Psychiatric: Behavior: Behavior normal. Thought Content: Thought content normal. Judgment: Judgment normal. ED COURSE & MEDICAL DECISION MAKING Assessment & Plan Initial Assessment: 23-year-old female with right upper quadrant pain, history of chronic alcoholism, possible hepatitis B, fatigue, bloating, difficulty breathing, and yellow vomiting. Differential Diagnosis: - Hepatitis B: History of possible hepatitis B, chronic alcoholism. Blood work to assess liver function. - Alcoholic liver disease: Chronic alcoholism, elevated liver enzymes reported. Blood work to assess liver function. - UTI: Reports back pain, history of suspected UTI. Consider urine analysis if symptoms persist. - : Reports bloating, heavy menstrual flow, and others suspecting . Consider test if symptoms persist. ED Course: - Blood work ordered - Chest x-ray ordered - EKG ordered Final Assessment: Comprehensive blood work, chest x-ray, and EKG ordered to evaluate liver function, respiratory, andcardiac status. Clinical Impression: - Right upper quadrant pain - Chest pain - history of EtOH abuse Disposition: Discharge: Home, prescriptions for zofran and pepcid. Follow-Up: Appointment with primary care physician next month. Medical Decision Making Amount and/or Complexity of Data Reviewed Labs: ordered. Decision-making details documented in ED Course. Radiology: ordered. Decision-making details documented in ED Course. ECG/medicine tests: ordered. Decision-making details documented in ED Course. Risk Prescription drug management. LABS Results for orders placed or performed during the hospital encounter of 08/12/24 [facility] 7 - ED Result Value Ref Range Sodium 137 135 - 145 mmol/L Potassium 4.3 3.5 - 5.0 mmol/L Chloride 106 98 - 108 mmol/L CO2 25 21 - 31 mmol/L Glucose 88 Nonfastin-179 mg/dL; Fastin-99 mg/dL BUN 6 (L) 7 - 25 mg/dL Creatinine 0.54 0.50 - 1.20 mg/dL Bun/Crea Ratio 11 Osmolality (Calculated) 285 278 - 305 mOsm/kg Anion Gap 10 7 - 17 mmol/L eGFR, CKD-EPI, Female >90 >=60 mL/min/1.73m2 HEPATIC FUNCTION PANEL Result Value Ref Range Albumin 4.0 3.5 - 5.0 g/dL Bilirubin Direct 0.1 <0.3 mg/dL Bilirubin Total 0.8 <1.5 mg/dL ALP 59 32 - 126 U/L ALT 8 (L) 9 - 48 U/L AST 17 10 - 39 U/L Total Protein 7.3 6.4 - 8.3 g/dL MAGNESIUM Result Value Ref Range Magnesium 1.9 1.6 - 2.6 mg/dL BETA HCG, QUAL, BLOOD Result Value Ref Range HCG (Qual) Serum Negative Negative LIPASE Result Value Ref Range Lipase 8 (L) 11 - 82 U/L CBC AND ELECTRONIC DIFF Result Value Ref Range WBC Count 7.84 3.99 - 11.19 K/uL RBC Count 4.19 3.91 - 5.04 M/uL Hemoglobin 13.1 11.4 - 15.2 g/dL Hematocrit 40.3 34.9 - 44.3 % Mean Cell Volume 96.2 79.6 - 97.7 fL Mean Cell Hgb 31.3 25.9 - 33.9 pg Mean Cell Hgb Conc 32.5 31.4 - 35.9 g/dL RBC Distribution 12.9 10.8 - 14.9 % Platelet Count 292 150 - 393 K/uL Mean Platelet Volume DIFF STATUS Electronic Differential Segs + Bands Auto 48.8 % Immature Grans % 0.3 % Lymphocyte % Auto 39.9 % Monocyte % Auto 7.9 % Eosinophil % Auto 2.8 % Basophil % Auto 0.3 % Nucleated RBC 0.0 <=0.2 /100 WBC Segs + Bands,Absolute Auto 3.83 1.64 - 7.28 K/uL Immature Grans Absolute <0.04 <=0.08 K/uL Abs Lymph Auto 3.13 1.16 - 3.51 K/uL Abs [place] Auto 0.62 0.22 - 0.87 K/uL Abs Eos Auto 0.22 0.00 - 0.42 K/uL Abs Baso Auto <0.04 0.00 - 0.15 K/uL PROTIME-INR Result Value Ref Range PT 13.7 11.9 - 14.2 sec INR 1.0 0.9 - 1.1 PTT Result Value Ref Range PTT 27.1 24.0 - 34.3 sec TSH Result Value Ref Range TSH 1.069 0.550 - 4.780 uIU/mL T4 FREE Result Value Ref Range Free T4 1.04 0.89 - 1.76 ng/dL ALCOHOL (ETHANOL),BLOOD Result Value Ref Range Alcohol, Serum <10 <10 mg/dL POCT RAPID ANTIBODY TEST (ORAQUICK) HIV-1/2 Result Value Ref Range HIV 1/2 Ab, manual enter Non-reactive URINALYSIS REFLEX TO CULTURE PERFORMABLE Result Value Ref Range Color Yellow Yellow Appearance Urine Clear Clear Glucose Urine Negative Negative Ketones Urine Negative Negative Specific [place] Urine 1.013 1.001 - 1.035 Blood Urine Large (A) Negative pH Urine 5.5 5.0 - 7.0 Protein Urine Trace (A) Negative Urobilinogen Urine 0.2 E.U./dL 0.2 E.U/dL, 1.0 E.U/dL Nitrites Urine Negative Negative Leukocyte Esterase Negative Negative RBC Urine >25 (A) 0 - 2 /HPF WBC Urine 0 - 5 0 - 5 /HPF Squamous/Epithelial Cells, Urine 6-10/hpf = 2+ (A) 0-2/hpf, 3-5/hpf = 1+ Bacteria TRACE (A) ABSENT RADIOLOGY XR CHEST PA AND LATERAL 2 VIEWS Final Result IMPRESSION: No acute cardiopulmonary disease EKG done and interpreted by ED physician MEDICATIONS DURING VISIT Medications GI Cocktail (ED/CDU) (40 mL Oral Given 08/12/242153) Ondansetron (ZOFRAN-ODT) disintegrating tablet 4 mg (4 mg Oral Given 08/12/242153) faMOTIdine (PEPCID) tablet 20 mg (20 mg Oral Given 08/12/242153) Patient was prescribed the following medications for home: New Prescriptions FAMOTIDINE 20 MG TABLET Take 1 tablet by mouth 2 times daily. ONDANSETRON 4 MG TAB DISPERSIBLE TABLET Take 1 tablet by mouth every 4 hours as needed for Nausea. Place on tongue Dx: ICD-10-CM 1. Generalized abdominal pain R10.84 2. Chest pain, unspecified type R07.9 ED Course Prior medical records were reviewed. Patient's past medical history, social history, family historyand surgical history was reviewed. All pertinent labs and imaging results were reviewed and interpreted by myself and the attending physician. The patient was updated regarding findings, and was re-assessed during ED stay. Dispo Reasons to return to the ED, potential complications, expected course of the patient's condition, and recommended treatments were discussed with the patient. The patient was also instructed to followup with their primary care physician and/or any appropriate specialists. The patient expressed understanding and agreement, and will be discharged in good condition. Juanita Hugo MD was included in all aspects of care including assessment, plan, and diagnosis; Juanita Hugo MD was physically present to examine the patient. SURJIT Burroughs 08/12/242216 [facility]06-30-2025 Emergency department Note* Cassandra Espinosa - 08/12/2024 8:37 PM EDTSummary: HealthNow Encounter HealthNow Needs Assessment Encounter Patient: Dhaval Moon Date/Time: 08/12/2024 8:37 PM The Health Promotion Advocate (HPA) approached the patient and introduced self as the HealthNow team. HPA offered needs assessment and discussed participation in HealthNow activities as voluntary. Patient accepted. Patient education on the following was discussed: substance use, sexual health, mental health, and harm/risk reduction Patient resources on the following were given: general resource list, healthcare related resource list, mental health resource list, risk reduction resource list, sexual health resource list, HealthNow program flyer, and Housing Resources, Dental care tips HIV POC Rapid Test Documentation [facility] offered (Oraquick) POC rapid HIV antibody test and the patient accepted. The test result was negative. [facility] discussed test results with the patient and provided education. Cassandra Espinosa Health Promotion Advocate (HPA) HealthNow Program Department of Emergency Medicine [facility]06-30-2025 Physician Emergency department Note* Juanita Hugo MD - 08/12/2024 5:40 PM EDT Nurse Practitioner Attestation for Shared Visits Pertinent Hx:Dhaval Moon is a 23 y.o. female who presents with RUQ pain x 1.5 years. States she was told while in rehab she was told she had a liver problem and possibly hepatitis. States she vomits daily and has had yellow stool x 1 year. Also states she has touse colace to have BMs. Has associated fatigue SOB/ chest pain - for 1.5 years. No syncope Irregular menses - has had heavy bleeding for several days. States she has an irregular periods regularly. Chief Complaint Patient presents with Abdominal Pain I think something wrong with my liver since 2022 from alcoholism, past 2 months fatigue, constipated, thirsty, URQ pain. People say I can be . Lives at sober living house past week Vomiting Yellow and bowels are yellow Irregular Menses A few days ago started bleeding heavy, thinks may have miscarriage Sore Throat Fatigue Constipation Did have BM today Review of Systems <> Review of Systems has been reviewed and is otherwise negative unless noted. Dhaval Moon has a past medical history of Alcohol abuse, Asthma, Drug abuse, and Essential hypertension, benign. Vitals: 08/12/24 1625 BP: 138/65 Pulse: 82 Resp: 20 Temp: 97.8 F (36.6 C) SpO2: 99% Pertinent Exam: awake, alert, oriented. Head NCAT, no scleral icterus, skin wihtout jaundice, PERRL, heart regular rate and rhythm without murmurs, rubs or gallops, lungs clear to ascultation bilaterally, abdomen soft, nontender and nondistended, no peripheral edema Juanita Hugo MD XR CHEST PA AND LATERAL 2 VIEWS Final Result IMPRESSION: No acute cardiopulmonary disease Results for orders placed or performed during the hospital encounter of 08/12/24 [facility] 7 - ED Result Value Ref Range Sodium 137 135 - 145 mmol/L Potassium 4.3 3.5 - 5.0 mmol/L Chloride 106 98 - 108 mmol/L CO2 25 21 - 31 mmol/L Glucose 88 Nonfastin-179 mg/dL; Fastin-99 mg/dL BUN 6 (L) 7 - 25 mg/dL Creatinine 0.54 0.50 - 1.20 mg/dL Bun/Crea Ratio 11 Osmolality (Calculated) 285 278 - 305 mOsm/kg Anion Gap 10 7 - 17 mmol/L eGFR, CKD-EPI, Female >90 >=60 mL/min/1.73m2 HEPATIC FUNCTION PANEL Result Value Ref Range Albumin 4.0 3.5 - 5.0 g/dL Bilirubin Direct 0.1 <0.3 mg/dL Bilirubin Total 0.8 <1.5 mg/dL ALP 59 32 - 126 U/L ALT 8 (L) 9 - 48 U/L AST 17 10 - 39 U/L Total Protein 7.3 6.4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 y.o. female , Established patient, here for evaluation ofthe following chief complaint(s): Follow-up, Possible , Medication [...] current medications losartan 50 mg daily, metoprolol XL25 mg twice daily Orders: - losartan (Cozaar) [...] dosing on. Follow up for 3 month [facility]. SUBJECTIVE/OBJECTIVE: HELEN - Dhaval Moon (: 2000) is a 23 y.o. female , Established patient, here for the evaluation of the following chief complaint(s): Follow-up, Possible , Medication Check, and Med Refill Patient presents for follow-up and med check. She reports that she was briefly in and out of rehab for street drug use and most recently left AMA after 2.5 weeks in a treatment center. History of using EtOH and meth, last had meth about 1 month ago. States having some alcohol within the past coupleof days. Denies any suicidal or homicidal ideation. Reports that she has had some hallucinations but these are not new. She was on an antipsychotic but does not have a current prescription for 1. Shestates she is not currently established with a psychiatric provider but reports that she has been seen by 180 in the past. States she thinks she might be but is unable to tell me when her last menstrual was. She is currently living with a friend in [place] and reports that she has limited contact [...] CNP 07/09/2024 7:43 PM documented in this [facility]SBl[facility] HospitalXaisox68-29-5404 Telephone encounter Note* Telephone Encounter - Autumn Martinez MA - 07/05/2024 10:22 AM EDT Images from the original note were not included. Left a message to return call. BRENDA Foster CNP to Me (Selected Message) 07/03/24 4:29 PM Note This is a psychiatric medication that should be prescribed by a psychiatrist or psychiatric provider. Recommend that she reach out to her last psychiatric provider to get reestablished. [facility] [id number] Telephone encounter Note* Telephone Encounter - BRENDA Foster CNP - 07/03/2024 4:29 PM EDT This is a psychiatric medication that should be prescribed by a psychiatrist or psychiatric provider. Recommend that she reach out to her last psychiatric provider to get reestablished. [facility] [id number] Telephone encounter Note* Telephone Encounter - Marilin James RN - 07/03/2024 1:05 PM EDT S: Patient spoke with [facility] nurse regarding medication refill B: Onset [...] ID, ins cards, and medications. Patient understands careadvice of [employer] resources such as [employer]. Patient advised medications are ordered at provider discretion and provider may require office visit before prescribing. Allergies and pharmacy verified. Nofurther needs at this time. Patient instructed to [...] policy Protocols used: Medication Refill and Renewal [id number] [facility] [id number] Discharge summary [facility] Medical Records Department [address] [place] [address] Emergency Department Summary 06/02/24 MR#: [id number] Acct: [id number] Name: DHAVAL MOON Rep #:[id number] : 2000 23 From: Filippo Fuentes MD PCP: Dr. Vanessa Booth MD Status:REG ER Location: ED HPI [...] am a recovering addict . Whenasked when wasthe last time she used she responded last [...] Prior similar symptoms: Yes Recent Illness/Hospitalization: Yes [facility] Medical History Hypertension Substance abuse [...] elevated 125. Patient is somewhat fidgety. BMI is42. General Appearance ED: Negative for pallor HEENT Reports moist mucous membranes HEENT Narrative: Head is atraumatic normocephalic. There is no evidence of head lice. Ears are normal. Nares patent.Posterior pharynx is normal. Eyes PERRL and EOMs [...] distended and no masses; Negative for hepatosplenomegaly Back/Spine [...] thoughts. Patient is concerned there is something seriouslywrong inside of her. Skin no rashes or lesions noted, no wounds and skin turgor normal General Skin Exam: Negative for jaundice or pallor MDM MDM MDM Narrative Medical decision making narrative: This may represent exacerbation of her bipolar disorder and or schizophrenia. Also need to considerreaction to the methamphetamine which she has history [...] % (Auto) 63.0 Lymph % (Auto) 29.6 [place] % (Auto) 6.9 Eos % (Auto) 0.1 [...] Clarity Clear Urine pH 6.5 Ur Specific [place] 1.020 Urine Protein 30 H Urine Glucose [...] of tactile sensation, Sinus tachycardia seen on medical technical writer,Cannabis use disorder, Amphetamine use, Drug-induced paranoia or [...] days repeat the application. Primary Care Provider: Vanessa Booth Referrals: Vanessa Booth MD [Primary Care Provider] - As Needed [facility] [Non-Staff] - As soon as possible Print Language: Romanian Disposition Disposition: Home, Self Care What to do if you have Problems For any increased pain, shortness of breath, bleeding, nausea or vomiting, chestpain, or any unexpected problems, contact your Primary Care Provider. Call [facility] ([phone]) or report tothe closest Emergency Room. Call 911 if necessary. 06/02/24 1513 Cosigner Signature (if applicable): CC: Dr. Vanessa Booth MD ~ Signed [facility]04-20-2025 Discharge summary Author Filippo Fuentes [facility] Note Date/Time June 02, 2024 3:[address] [facility] Medical Records Department [address] [place] [address] Emergency Department Summary 06/02/24 MR#: [id number] Acct: [id number] Name: DHAVAL MOON Rep #:[id number] : 2000 23 From: Filippo Fuentes MD PCP: Dr. Vanessa Booth MD Status:REG ER Location: ED HPI [...] Prior similar symptoms: Yes Recent Illness/Hospitalization: Yes [facility] Medical History Hypertension Substance abuse History of [...] every day smoker tobacco type: cigarettes and e- [...] % (Auto) 63.0 Lymph % (Auto) 29.6 [place] % (Auto) 6.9 Eos % (Auto) 0.1 [...] Clarity Clear Urine pH 6.5 Ur Specific [place] 1.020 Urine Protein 30 H Urine Glucose [...] of tactile sensation, Sinus tachycardia seen on medical technical writer,Cannabis use disorder, Amphetamine use, Drug-induced paranoia or [...] days repeat the application. Primary Care Provider: Vanessa Booth Referrals: Vanessa Booth MD [Primary Care Provider] - As Needed [employer] [Non-Staff] - As soon as possible Print Language: Romanian Disposition Disposition: Home, Self Care What to do if you have Problems For any increased pain, shortness of breath, bleeding, nausea or vomiting, chestpain, or any unexpected problems, contact your Primary Care Provider. Call [facility] ([phone]) or report to the closest Emergency Room. Call 911 if necessary. 06/02/24 1513 <Electronically signed by Filippo Fuentes MD> Cosigner Signature (if applicable): CC: Dr. Vanessa Booth MD ~ Signed [facility] Work Phone: 1(695) 457-505703-13-2025 Discharge summary [facility] Medical Records Department [address] [place] [address] Emergency Department Summary 04/25/24 MR#: [id number] Acct: [id number] Name: DHAVAL MOON Rep #:[id number] : 2000 23 From: Filippo Fuentes MD PCP: Dr. Vanessa Booth MD Status:REG ER Location: ED HPI [...] Prior similar symptoms: Yes Recent Illness/Hospitalization: No [facility] Medical History Hypertension Substance abuse History of [...] diagnosis of hypertension, Sinus tachycardia seen on medical technical writer, Anxiety reaction, Heartburn Instructions: Meth Abuse Addiction, [...] 25 mg PO BID Primary Care Provider: Vanessa Booth Referrals: Vanessa Booth MD [Primary Care Provider] - 1-2 Weeks Activity Restrictions/Additional Instructions: Your blood pressure is elevated. You should have this reassessed in 1 to 2 weeks by your doctor, Dr. Vanessa Booth Print Language: Romanian Disposition Disposition: Home, Self Care What to do if you have Problems For any increased pain, shortness of breath, bleeding, nausea or vomiting, chestpain, or any unexpected problems, contact your Primary Care Provider. Call [facility] ([phone]) or report tothe closest Emergency Room. Call 911 if necessary. 04/25/24 1532 Cosigner Signature (if applicable): CC: Dr. Vanessa Booth MD ~ Signed [facility]03-13-2025 Discharge summary Author Filippo Fuentes [facility] Note Date/Time April 25, 2024 3:[address] [facility] Medical Records Department [address] [place] [address] Emergency Department Summary 04/25/24 MR#: [id number] Acct: [id number] Name: DHAVAL MOON Rep #:[id number] : 2000 23 From: Filippo Fuentes MD PCP: Dr. Vanessa Booth MD Status:REG ER Location: ED HPI [...] similar symptoms: Yes Recent Illness/Hospitalization: No PFSH [facility] Medical History Hypertension Substance abuse History of [...] diagnosis of hypertension, Sinus tachycardia seen on medical technical writer, Anxiety reaction, Heartburn Instructions: Meth Abuse Addiction, [...] 25 mg PO BID Primary Care Provider: Vanessa Booth Referrals: Vanessa Booth MD [Primary Care Provider] - 1-2 Weeks Activity Restrictions/Additional Instructions: Your blood pressure is elevated. You should have this reassessed in 1 to 2 weeks by your doctor, Dr. Vanessa Booth Print Language: Romanian Disposition Disposition: Home, Self Care What to do if you have Problems For any increased pain, shortness of breath, bleeding, nausea or vomiting, chestpain, or any unexpected problems, contact your Primary Care Provider. Call [facility] ([phone]) or report to the closest Emergency Room. Call 911 if necessary. 04/25/24 1532 <Electronically signed by Filippo Fuentes MD> Cosigner Signature (if applicable): CC: Dr. Vanessa Booth MD ~ Signed [facility] Work Phone: 1(315) 381-320501-14-2025 Telephone encounter Note* Telephone Encounter - Vanessa Booth MD - 02/27/2024 5:58 AM EST All medications were refused, this patient has to have an appointment before I will prescribe any medications, she has been off of her Lyrica since January and we have never prescribed Zyprexa. She has not been seen since June and has been scheduled multiple times and has either no showed or canceled [facility] [id number] Miscellaneous Notes* Telephone Encounter - Vanessa Booth MD - 02/27/2024 5:58 AM EST [...] - 02/26/2024 2:41 PM EST Ordering provider: Devyn Date of last office visit: 06/27/24 Date [...] Medication name: pregabalin (Lyrica) 100 MG capsule [[id number]] Medication dosage: 100 mg (Miligrams Monthly quantity [...] prescribe. Please send all refills to pharmacy [id number], [place] - [address] [facility] documented in this [facility]SBl[facility] HospitalDmszqn98-49-7566 Telephone encounter Note* Telephone Encounter - BRENDA Ragland CNP - 02/26/2024 3:51 PM EST I will let Dr. Booth review and see if he would be okay with prescribing the Zyprexa. Lyrica has also not been filled since November and it was only a 10 day supply. [facility] HospitalOxzgsu82-65-3993 Telephone encounter Note* Telephone Encounter - Mago Hammond MA - 02/26/2024 2:58 PM EST CSA 06/28/[address] Booth on 06/28/23, do you want to leave this for him tomorrow since we have never prescribed the Olazapine? [facility] [id number] Telephone encounter Note* Telephone Encounter - Siri Monson - 02/26/2024 2:41 PM EST Ordering provider: Devyn Date of last office visit: 06/27/24 Date [...] Medication name: pregabalin (Lyrica) 100 MG capsule [[id number]] Medication dosage: 100 mg (Miligrams Monthly quantity [...] prescribe. Please send all refills to pharmacy [id number] - [place], [place] - [address] [facility] HospitalGtbojp42-45-9177 [facility]11-25-2024 Evaluation note * Diagnosis Onset Date Resolution Status Admit Date Methamphetamine abuse acute Nov 2023 7:13pm Opiate withdrawal resolved Novembe r 2023 7:13pm [facility] Work Phone: [phone] 116-575911-01-2024 Telephone encounter Note* Telephone Encounter - Jumana Murillo - 12/15/2023 12:13 PM EDT [facility]errals closed [facility]-7405 Miscellaneous Notes* Telephone Encounter - Jumana Murillo - 12/15/2023 12:13 PM EDT Referrals closed * Telephone Encounter - Vanessa Booth MD - 12/15/2023 12:01 PM EDT Yes, okay to close * Telephone Encounter - Jumana Murillo - 12/15/2023 10:53 AM EDT Pt [...] EDT My Chart message documented in this [facility] HospitalCtcwdd01-49-3746 Telephone encounter Note* Telephone Encounter - Vanessa Booth MD - 12/15/2023 12:01 PM EDT Yes, okay to close [facility] HospitalCcoxgv50-44-6648 NotePt given referral for [facility] on 03/21/23 and referral fo [facility] on 04/25/23 No response from pt to schedule appt Documentation in referrals. Okay to close referrals?[facility] 12-15-2023 Telephone encounter Note* Telephone Encounter - Jumana Murillo - 12/15/2023 10:53 AM EDT Pt given referral for [facility] on 03/21/23 and referral fo [facility] on 04/25/23 No response from pt to schedule appt Documentation in referrals. Okay to close referrals? [facility] HospitalEeisfj40-19-4896 Telephone encounter Note* Telephone Encounter - Cheryl Casillas MA - 11/28/2023 8:45 AM EDT No patient response. Closed [facility] HospitalVikejv30-78-7719 [facility]09-20-2024 Telephone encounter Note* Telephone Encounter - Cheryl Casillas MA - 11/03/2023 12:39 PM EDT My Chart message [facility] HospitalUjrbyb16-03-3170 Emergency department Note* Adelita Perry RN - 09/02/2023 10:33 AM EDT Discharge instructions, follow up care, and pain management discussed with patient. All questions answered, there are no further questions at this time. Patient provided with HOPE bag including mcc information and street cards. [facility]. Adelita Perry RN 09/02/23 103 [facility] HospitalIsffkq02-40-2685 Emergency department Note* Adelita Perry RN - 09/02/2023 10:33 AM EDT Discharge instructions, follow up care, and pain management discussed with patient. All questions answered, there are no further questions at this time. Patient provided with HOPE bag including mcc information and street cards. [facility]. Adelita Perry RN [...] she is being followed by people from [place] and that she feels not safe here [...] Resource Strain: Medium Risk (05/22/2020) Received from [facility] Overall Financial Resource Strain (CARDIA) Difficulty of Paying Living Expenses: Somewhat hard Food Insecurity: Food Insecurity Present (06/09/2023) Received from [facility] Hunger Vital Sign Worried About Running Out of Food in the Last Year: Sometimes true Ran Out of Food in the Last Year: Sometimes true Transportation Needs: No Transportation Needs (06/09/2023) Received from [facility] PRAPARE - Transportation Lack of Transportation (Medical): No Lack of Transportation (Non-Medical): No Physical Activity: Inactive (01/23/2019) Received from [facility] Exercise Vital Sign Days of Exercise per Week: 0 days Minutes of Exercise per Session: 0 min Housing Stability: Unknown (06/09/2023) Received from [facility] Housing Stability Vital Sign Unable to Pay [...] she is being followed by people from [place] and that she feels not safe here [...] Patient is medically cleared for admission to [facility]. [BM] ED Course User Index [BM] Billie [...] Emergency Medicine Provider Billie Spears DO 09/02/23542 * Glenn Guerrero MD - 09/02/2023 1:54 AM EDT Emergency Department Encounter Location: [facility] ED Patient: Dhaval Moon : 2000 [...] 0510) I Glenn Guerrero MD am the courtroom deputy of record. Final Impression 1. Paranoia (psychosis) [...] AM EDT Referral made to [facility] for transfer, spoke paulette Gao. Facility will callback documented in this [facility]07-20-2024 Hospital Discharge instructions* Discharge Instructions* Glenn Guerrero MD - 09/02/2023 9:02 AM EDT Images from the original note were not included. You have been evaluated in the Emergency Department today for a behavioral health problem. This evaluation did not result in a recommendation for hospitalization, but your symptoms may change number operator time, which is why it is important to follow-up. I recommend you contact the following mental health provider(s) to schedule an appointment as soon as possible: [] [facility]; [facility] (Psychiatry, Counseling,Addiction Services); [address], [address], [place] [address]; [] [facility]; (Psychiatry, Counseling, Addiction Services); [address], [address], [facility] [address]; [] [facility]; (Psychiatry, Counseling); [address] [place] [address]; [] [facility]; (Psychiatry, Counseling); [address], [address] [address]; [] [facility]; (Psychiatry, Counseling); [address] [place] [address]; [] [facility]; (Psychiatry, Counseling); [address], [address], [place] [address]; [] [facility]; (Psychiatry, Counseling); [address], [address], [place] [address]; [] [facility] (Counseling, Group); [address] [place] [address]; [] [facility] (Psychiatry, Counseling, Case Management); [address], [address], [place] [address]; ; for initial assessments you may call or walk-in on Mondays and Tuesdays at 8:00 AM [] [facility] (Psychiatry, Counseling, Case Management); [address] [place] [address]; ; for initial assessments you may call or walk-in on at noon [] [facility] (Psychiatry, Counseling, Case Management); [address] [place] [address]; [] [facility] (Counseling, Group - has evening hours); [address] [place] [address]; [x] [facility] (Psychiatry, Counseling, Case Management, Addiction Services); [address] [place] [address]; [x] [facility] (Psychiatry, Counseling, Case Management, Addiction Services); [address] [place] [address] [address]; [] [facility] (Psychiatry, Counseling, Case Management, Addiction Services); [address], [address], [place] [address]; [] [facility] (Counseling); [address] [place] [address]; [] [facility] (Psychiatry, Counseling, Case Management - has evening and weekend hours); [address] [place] [address]; If you or someone you know is struggling or in crisis, help is available. Call or text 996 or chat [email or web address]. -OR- Call the [facility] Crisis Hotline at 313-424-1740 -OR- Visit [facility] Psychiatric Emergency Services, in person, at [address], [place] [address]; You should return to the Emergency Department or call 911 immediately if your symptoms worsen, new symptoms develop, or if you can no longer keep yourself or others safe. * Attachments The following attachments cannot be sent through Care Everywhere. * Drug Abuse and Drug Addiction Discharge Instructions (Romanian) * Hypokalemia Discharge Instructions (Romanian) documented in this [facility]07-20-2024 Emergency department Note* Adelita Perry RN - 09/02/2023 9:01 AM EDT RN contacted [facility], cancelled referral due to patient being discharged. Adelita Perry RN 09/02/23 0901 [facility] HospitalRczdkv56-31-0208 NoteRN contacted [facility], cancelled referral due to patient being discharged. Adelita Perry RN 09/02/23 0901[facility]07-20-2024 Emergency department Note* Adelita Perry RN - 09/02/2023 8:59 AM EDT Patient to be discharged, patient provided with her cell phone to get a ride home. Adelita Perry RN 09/02/23 0859 [facility] HospitalChtsat00-36-4263 Emergency department Note* Adelita Perry RN - [...] of care. Adelita Perry RN 09/02/23 0847 [facility] HospitalIdzhwo09-23-5534 NoteNOTE: This result is for medical treatment only. Analysis performed using non-forensic procedures. [facility] HospitalFhckfu53-35-7012 Emergency department Triage note* Elinor Morin RN - 09/02/2023 1:54 AM EDT Pt presents to the ED w c/o anxiety. Per pt, pt has been having anxiety all day. Pt denies suicidal thoughts. Pt feels safe at home [facility] HospitalWvmisr23-49-7885 Emergency department Triage note* Elinor Morin RN - 09/02/2023 1:54 AM EDT Pt initially uncooperative initially. Pt refusing to change in a gown or have labs drawn. Pt finally will allow this nurse to draw labs. Pts personal belongings removed from pt and pt put on a gown. Pt wanded by officer robert. Pt refuses anxiety meds ordered [facility] HospitalMfhstj94-76-3909 Emergency department Triage note* Elinor Morin RN - 09/02/2023 1:54 AM EDT Referral made to [facility] for transfer, spoke paulette Gao. Facility will callback [facility] HospitalNwxqqd86-97-8163 NoteReferral made to [facility], spoke paulette Gao. Facility will call [facility]07-20-2024 Physician Emergency department Note* Billie Spears DO [...] she is being followed by people from [place] and that she feels not safe here [...] Resource Strain: Medium Risk (05/22/2020) Received from [facility] Overall Financial Resource Strain (CARDIA) Difficulty of Paying Living Expenses: Somewhat hard Food Insecurity: Food Insecurity Present (06/09/2023) [facility] Hunger Vital Sign Worried About Running Out of Food in the Last Year: Sometimes true Ran Out of Food in the Last Year: Sometimes true Transportation Needs: No Transportation Needs (06/09/2023) Received from [facility], [facility] PRAPARE - Transportation Lack of Transportation (Medical): No Lack of Transportation (Non-Medical): No Physical Activity: Inactive (01/23/2019) Received from [facility] Exercise Vital Sign Days of Exercise per Week: 0 days Minutes of Exercise per Session: 0 min Housing Stability: Unknown (06/09/2023) Received from [facility], [facility] Housing Stability Vital Sign Unable to [...] she is being followed by people from [place] and that she feels not safe here [...] Patient is medically cleared for admission to [facility]. [BM] ED Course User Index [BM] Billie [...] Medicine Provider Billie Spears DO 09/02/23 0543 [facility] HospitalGhkena02-27-3385 Physician Emergency department Note* Glenn Guerrero MD - 09/02/2023 1:54 AM EDT Emergency Department Encounter Location: [facility] ED Patient: Dhaval Moon : 2000 [...] 0510) I Glenn Guerrero MD am the courtroom deputy of record. Final Impression 1. Paranoia (psychosis) (HCC) 2. Hypokalemia 3. Methamphetamine-induced psychotic disorder (HCC) DISPOSITION (Please note that portions of this note may have been completed with a voice recognition program. Efforts were made to edit the dictations but occasionally words are mis-transcribed.) Glenn Guerrero MD [employer] Glenn Guerrero MD 09/02/23 0903 [employer] Work Phone: [phone] 464-424907-06-2024 Note. MICRO - Microbiology PROCEDURE: Urine Culture [...] Locations *1: This test was performed at: [address], [facility] , [facility] ([place])08-18-2023 Evaluation + Plan note Diagnostic Tests Pending * Urine Culture 08/18/23 [facility] 07-04-2024 NoteSinus tachycardia Prolonged QT interval Electronic Signature: REGINE CONRAD MD 08/17/2023 21:35:30[facility] 05-15-2024 Evaluation + Plan note* Assessment & Plan Note - Vanessa Booth MD - 06/28/2023 3:24 PM EDTAssociated Problem(s): Moderate episode of recurrent major depressive disorder (HCC) Partial remission, continue Zoloft 100 mg daily [id number] Evaluation + Plan note* Assessment & Plan Note - Vanessa Booth MD - 06/28/2023 3:24 PM EDTAssociated Problem(s): Elevated transaminase level Stable, will recheck labs today. [facility] HospitalFlehny48-99-3158 Miscellaneous Notes* Assessment & Plan Note - Vanessa Booth MD - 06/28/2023 3:24 PM EDTAssociated Problem(s): Moderate episode of recurrent major depressive disorder (HCC) Partial remission, continue Zoloft 100 mg daily * Assessment & Plan Note - Vanessa Booth MD - 06/28/2023 3:24 PM EDT Associated Problem(s): Elevated transaminase level Stable, will recheck labs today. * Assessment & Plan Note - Vanessa Booth MD - 06/28/2023 3:23 PM EDT Associated Problem(s): Anxiety Partial remission, continue Zoloft 100 mg daily * Assessment & Plan Note - Vanessa Booth MD - 06/28/2023 3:22 PM EDT Associated Problem(s): Moderate persistent asthma with exacerbation Stable, continue albuterol as needed. documented in this encounterSBl[facility] HospitalWcolfo92-80-2633 Evaluation + Plan note* Assessment & Plan Note - Vanessa Booth MD - 06/28/2023 3:23 PM EDT Associated Problem(s): Anxiety Partial remission, continue Zoloft 100 mg daily [facility] HospitalVjqtqu88-59-8155 Evaluation + Plan note* Assessment & Plan Note - Vanessa Booth MD - 06/28/2023 3:22 PM EDTAssociated Problem(s): Moderate persistent asthma with exacerbation Stable, continue albuterol as needed. [facility] Gqzouu96-35-6924 History of Present illness Narrative* Princess Saravia MA - 06/28/2023 9:45 AM EDT Patient verified by last name and date of . * Vanessa Booth MD - 06/28/2023 9:45 AM EDT Images from the original note were not included. 06/28/2023 Dhaval Mendosa Moon (: 2000) is a 22 y.o. female , Established patient, here for evaluation ofthe following chief complaint(s): ER Follow-up ([facility] ED- 06/17/23/Intoxication/hallucinations), Hospital Follow-up ([facility] 06/07-06/10/23/Alcohol withdrawal syndrome), Health Maintenance [...] panel 7. Controlled drug dependence (HCC) - [facility] ([facility]) Follow up in about 3 months (around 09/28/2023). SUBJECTIVE/OBJECTIVE: HELEN Bryan comes in today for follow-up on her asthma, hypothyroidism, anxiety and depression, shehas elevated transaminase levels that she needs rechecked. And she is on a controlled medication and needs a drug screen. She seems to be doing better she is living in a [facility] and she has lost another 14 pounds. [...] signature was used to authenticate this note. Vanessa Booth MD 06/28/2023 3:24 PM documented in this [facility]05-08-2024 Telephone encounter Note* Telephone Encounter - Vanessa Booth MD - 06/21/2023 12:56 PM EDT Okay, thank you [facility] HospitalZixkjk95-18-7417 Miscellaneous Notes* Telephone Encounter - Vanessa Booth MD - 06/21/2023 12:56 PM EDT [...] 04-13-23 2nd Attempt: 06-21-23 documented in this [facility]05-08-2024 Telephone encounter Note* Telephone Encounter - Toni Gonzales - 06/21/2023 11:41 AM EDT Pt is scheduled to come into the office on 06/28/23 [facility] HospitalBytnoq82-77-4062 Telephone encounter Note* Telephone Encounter - Autumn Martienz MA - 06/21/2023 9:33 AM EDT Will attempt to call this afternoon and/or tomorrow, since attempt was made this morning. [facility] HospitalMsvhxa59-74-6834 Telephone encounter Note* Telephone Encounter - Sharri Willis - 06/21/2023 9:27 AM EDT We have been unable to reach your patient to schedule their testing. Test Name: Therapy 1st Attempt: 04-13-23 2nd Attempt: 06-21-23 [facility] HospitalAdeugk55-04-5473 Note* Addendum Note - Toni Gonzales - 06/20/2023 12:54 PM EDTAddended by: TONI GONZALES on: 06/20/2023 12:54 PM Modules accepted: Orders [facility] HospitalUlnark52-17-7228 Note* Addendum Note - Toni Gonzales - 06/20/2023 12:54 PM EDTAddended by: TONI GONZALES on: 06/20/2023 12:54 PM Modules accepted: Orders [facility] HospitalAfyowz32-25-1112 Miscellaneous Notes* Addendum Note - Toni Gonzales [...] 04/1223 Updated/Validated preferred pharmacy: Yes [id number] - [place] Patient instructed to contact the pharmacy prior to picking up the medication: Yes documented in this encounterSBlanchard Valley [facility] Valley HospitalIadfav35-07-0455 Telephone encounter Note* Telephone Encounter - Shira [...] 04/1223 Updated/Validated preferred pharmacy: Yes [id number] - [address] Patient instructed to contact the pharmacy prior to picking up the medication: Yes [facility] HospitalGazwio14-59-2879 Telephone encounter Note* Telephone Encounter - Toni Gonzales - 06/20/2023 11:21 AM EDT Patient also needs to schedule a follow up visit in office. [facility] HospitalGgikgy74-78-9498 Miscellaneous Notes* Telephone Encounter - Toni Gonzales - 06/20/2023 11:21 AM EDT Patient also needs to schedule a follow up visit in office. * Telephone Encounter - Toni Gonzales - 06/20/2023 7:57 AM EDT MCM sent to patient. Awaiting response. * Telephone Encounter - Vanessa Booth MD - 06/19/2023 3:35 PM EDT [...] her feet hurt. R: Upon review of [facility] med list she does have a refill left on the Albuterol Inhaler. This was verified for the patient. Spoke with Kiln Feeder at [facility] and they will fill this for thepatient [...] prescription Protocols used: Medication Refill and Renewal [id number] documented in this encounterSBlanchard Valley Health System Blanchard Valley HospitalLgmloy90-67-1664 Telephone encounter Note* Telephone Encounter - Toni Gonzales - 06/20/2023 7:57 AM EDT MCM sent to patient. Awaiting response. [facility] HospitalNgyvjy12-06-7172 Telephone encounter Note* Telephone Encounter - Vanessa Booth MD - 06/19/2023 3:35 PM EDT Rx sent, OARRS report done, no inconsistencies, needs to sign a CS agreement [facility] HospitalPuoqpi96-33-9612 Telephone encounter Note* Telephone Encounter - Toni Gonzales - 06/19/2023 7:21 AM EDT Pended. Lyrica-NO ANKIT on file. Last filled 04/25/23 [facility] HospitalBlkzlh39-89-7106 Note* Behavorial Health Intake - Hailey Donaldson LISW - 06/18/2023 6:44 AM EDT BEHAVIORAL HEALTH BRIEF INTAKE NOTE SERVICE DATE: 06/18/2023 SERVICE TIME: 6:44 AM Dhaval Moon is a 22 year old female brought in to [facility] ED from Home by friend for an [...] DATE: June 18, 2023 TIME: 6:44 AM [facility]05-05-2024 Miscellaneous Notes* [facility] Health Intake - Hailye Donaldson LISW - 06/18/2023 6:44 AM EDT BEHAVIORAL HEALTH BRIEF INTAKE NOTE SERVICE DATE: 06/18/2023 SERVICE TIME: 6:44 AM Dhaval Moon is a 22 year old female brought in to [facility] ED from Home by friend for an [...] 2023 TIME: 6:44 AM [facility] Telephone encounter Note * Telephone Encounter [...] her feet hurt. R: Upon review of [facility] med list she does have a refill left on the Albuterol Inhaler. This was verified for the patient. Spoke with Kiln Feeder at [facility] and they will fill this for thepatient [...] prescription Protocols used: Medication Refill and Renewal [id number] [facility] HospitalWwcybu84-67-5628 NoteHNO ID: [id number] Author: JUANITA SCOTT LSW Service: Care Management Author Type: Draper[employer] Estimator Type: Care Mgt Initial Assessment Filed: 06/09/2023 13:21 Note Text: CARE MANAGEMENT: ASSESSMENT AND DISCHARGE PLAN SERVICE DATE: June 09, 2023 SERVICE TIME: 1:12 PM PCP: Vanessa Booth MD Primary Contact: Extended Emergency Contact Information Primary Emergency Contact: Kassie Moon Address: [address] [place] [address] Mobile Relation: Mother Admission Status: Inpatient Insurance Provider: [facility] MEDICAID [place] Discharge Planning [...] Patient Goal(s): Be able to go home [place] of Choice Explained: Are you interested in [...] Yes - Do you ever drink an eye-chemistry associate in the morning to relieve shakes? Yes [...] pt with packet of community resource information: [facility], homeless hotline, homeless resource guide, outpatient [...] June 09, 2023 TIME: 1:12 PM CONTACT #:[facility]04-26-2024 NoteHNO ID: [id number] Author: ALBERT SIERRA, PhD Service: Psychology Author [...] the interview and participated actively in the conversation.[facility]04-26-2024 NoteHNO ID: [id number] Author: LUKAS YOO MD Service: Hospital Medicine [...] 0.4 06/08/2023 Abs Neut 6.29 06/08/2023 Abs Red [place]ow 0.63 06/08/2023 Abs Eosin 0.15 06/08/2023 Abs [...] ER on 06/07 co (more content not included)...[facility]03-13-2024 Evaluation + Plan note* Assessment & Plan Note - Vanessa Booth MD - 04/26/2023 8:14 AM EDTAssociated Problem(s): Moderate episode of recurrent major depressive disorder (HCC) We will increase her Zoloft to 100 mg daily and have her follow-up in 3 to 4 weeks. [facility] HospitalQhgeqi75-38-3743 Miscellaneous Notes* Assessment & Plan Note - Vanessa Booth MD - 04/26/2023 8:14 AM EDTAssociated Problem(s): Moderate episode of recurrent major depressive disorder (HCC) We will increase her Zoloft to 100 mg daily and have her follow-up in 3 to 4 weeks. * Assessment & Plan Note - Vanessa Booth MD - 04/25/2023 3:44 PM EDT Associated Problem(s): Multiple open wounds of foot Referral to wound center in [place] * Assessment & Plan Note - Vanessa Booth MD - 04/25/2023 3:44 PM EDT Associated Problem(s): Moderate persistent asthma with exacerbation Stable, refill albuterol MDI and albuterol solution. * Assessment & Plan Note - Vanessa Booth MD - 04/25/2023 3:43 PM EDT Associated Problem(s): Alcohol-induced polyneuropathy (HCC) Stable, she says she has not been drinking and she also thinks that the gabapentin is not working well for the neuropathy so we will switch her to Lyrica. OARRS report done, no inconsistencies, Rx sent documented in this [facility]03-12-2024 Evaluation + Plan note* Assessment & Plan Note - Vanessa Booth MD - 04/25/2023 3:44 PM EDT Associated Problem(s): Multiple open wounds of foot Referral to wound center in [place] [facility] HospitalWywfdc03-27-4499 Evaluation + Plan note* Assessment & Plan Note - Vanessa Booth MD - 04/25/2023 3:44 PM EDTAssociated Problem(s): Moderate persistent asthma with exacerbation Stable, refill albuterol MDI and albuterol solution. [facility] HospitalLblsff02-15-8097 Miscellaneous Notes* Assessment & Plan Note - Vanessa Booth MD - 04/25/2023 3:44 PM EDTAssociated Problem(s): Multiple open wounds of foot Referral to wound center in [place] * Assessment & Plan Note - Vanessa Booth MD - 04/25/2023 3:44 PM EDT Associated Problem(s): Moderate persistent asthma with exacerbation Stable, refill albuterol MDI and albuterol solution. * Assessment & Plan Note - Vanessa Booth MD - 04/25/2023 3:43 PM EDT Associated Problem(s): Alcohol-induced polyneuropathy (HCC) Stable, she says she has not been drinking and she also thinks that the gabapentin is not working well for the neuropathy so we will switch her to Lyrica. OARRS report done, no inconsistencies, Rx sent documented in this [place] [address]-12-2024 Evaluation + Plan note* Assessment & Plan Note - Vanessa Booth MD - 04/25/2023 3:43 PM EDT Associated Problem(s): Alcohol-induced polyneuropathy (HCC) Stable, she says she has not been drinking and she also thinks that the gabapentin is not working well for the neuropathy so we will switch her to Lyrica. OARRS report done, no inconsistencies, [id number] History of Present illness Narrative* Princess Saravia MA - 04/25/2023 2:00 PM EDT Patient verified by last name and date of . * Vanessa Booth MD - 04/25/2023 2:00 PM EDT [...] Starting Mon04/25/2023, Until Crystal 05/25/2023, Normal - [facility] Wound Care/HBO SBH 2. Moderate persistent asthma with exacerbation Assessment & Plan: Stable, refill albuterol MDI and albuterol solution. 3. Multiple open wounds of foot Assessment & Plan: Referral to wound center in [place] Orders: - pregabalin (Lyrica) 100 MG capsule; Take 1 capsule (100 mg) by mouth 3 times daily., Starting Mon04/25/2023, Until Crystal 05/25/2023, [facility] Follow up in [...] signature was used to authenticate this note. Vanessa Booth MD 04/25/2023 3:45 PM documented in this [facility]03-12-2024 History of Present illness Narrative* Princess Saravia MA - 04/25/2023 2:00 PM EDT Patient verified by last name and date of . * Vanessa Booth MD - 04/25/2023 2:00 PM EDT [...] & Plan: Referral to wound center in [place] Orders: - pregabalin (Lyrica) 100 MG capsule; Take 1 capsule (100 mg) by mouth 3 times daily., Starting Tu04/25/2023, Until Crystal 05/25/2023, Normal - [facility] Wound Care/HBO SBH 4. Moderate episode of [...] signature was used to authenticate this note. Vanessa Booth MD 04/26/2023 8:15 AM documented in this [facility]03-12-2024 Telephone encounter Note* Telephone Encounter - Princess Saravia MA - 04/25/2023 7:44 AM EDT Prescription Request: Last medication check: 03/21/23(hosp follow up) Last physical exam: none Next scheduled appointment: 04/25/23 Last date of refill on this medication 03/21/23 30 day no refill [id number] Miscellaneous Notes* Telephone Encounter - Princess Saravia MA - 04/25/2023 7:44 AM EDT Prescription Request: Last medication check: 03/21/23(hosp follow up) Last physical exam: none Next scheduled appointment: 04/25/23 Last date of refill on this medication 03/21/23 30 day no refill documented in this [facility]02-06-2024 Evaluation + Plan note* Assessment & Plan Note - Vanessa Booth MD - 03/21/2023 11:51 AM EST Associated Problem(s): Anxiety Uncontrolled, Zoloft 50 mg daily follow-up in 3 to 4 weeks [id number] Evaluation + Plan note* Assessment & Plan Note - Vanessa Booth MD - 03/21/2023 11:51 AM ESTAssociated Problem(s): ETOH abuse Encourage patient to go online and get the number for Alcoholics Anonymous to be put in touch with a sponsor IBRAHIMA to keep her from going back on the alcohol. [id number] Evaluation + Plan note* Assessment & Plan Note - Vanessa Booth MD - 03/21/2023 11:51 AM ESTAssociated Problem(s): Polycythemia Repeat CBC today [id number] Miscellaneous Notes* Assessment & Plan Note - Vanessa Booth MD - 03/21/2023 11:51 AM ESTAssociated Problem(s): Anxiety Uncontrolled, Zoloft 50 mg daily follow-up in 3 to 4 weeks * Assessment & Plan Note - Vanessa Booth MD - 03/21/2023 11:51 AM EST Associated Problem(s): ETOH abuse Encourage patient to go online and get the number for Alcoholics Anonymous to be put in touch with a sponsor IBRAHIMA to keep her from going back on the alcohol. * Assessment & Plan Note - Vanessa Booth MD - 03/21/2023 11:51 AM EST Associated Problem(s): Polycythemia Repeat CBC today * Assessment & Plan Note - Vanessa Booth MD - 03/21/2023 11:50 AM EST Associated Problem(s): Acquired hypothyroidism Repeat lab work today for confirmation. * Assessment & Plan Note - Vanessa Booth MD - 03/21/2023 11:50 AM EST Associated Problem(s): Morbid obesity with body mass index (BMI) of 50.0 to 59.9 in adult (HCC) Encourage patient to continue weight loss with diet and exercise. * Assessment & Plan Note - Vanessa Booth MD - 03/21/2023 11:49 AM EST Associated Problem(s): Moderate persistent asthma with exacerbation Stable, we will refill her albuterol inhaler * Assessment & Plan Note - Vanessa Booth MD - 03/21/2023 11:48 AM EST Associated Problem(s): Alcohol-induced polyneuropathy (HCC) Gabapentin will increase that to 300 mg 3 times a day OARRS report done, no inconsistencies, CS agreement will need to sign and also get her into some physical therapy. * Assessment & Plan Note - Vanessa Booth MD - 03/21/2023 11:48 AM EST Associated Problem(s): Weakness of both lower extremities Will refer patient to physical therapy for strengthening and weightbearing and balance documented in this [facility]02-06-2024 Evaluation + Plan note* Assessment & Plan Note - Vanessa Booth MD - 03/21/2023 11:50 AM EST Associated Problem(s): Acquired hypothyroidism Repeat lab work today for confirmation. [facility] [id number] Evaluation + Plan note* Assessment & Plan Note - Vanessa Booth MD - 03/21/2023 11:50 AM ESTAssociated Problem(s): Morbid obesity with body mass index (BMI) of 50.0 to 59.9 in adult (HCC) Encourage patient to continue weight loss with diet and exercise. [id number] Evaluation + Plan note* Assessment & Plan Note - Vanessa Booth MD - 03/21/2023 11:49 AM ESTAssociated Problem(s): Moderate persistent asthma with exacerbation Stable, we will refill her albuterol inhaler [id number] Evaluation + Plan note* Assessment & Plan Note - Vanessa Booth MD - 03/21/2023 11:48 AM ESTAssociated Problem(s): Alcohol- induced polyneuropathy (HCC) Gabapentin will increase that to 300 mg 3 times a day OARRS report done, no inconsistencies, CS agreement will need to sign and also get her into some physical therapy. [facility]02-06-2024 Evaluation + Plan note* Assessment & Plan Note - Vanessa Booth MD - 03/21/2023 11:48 AM ESTAssociated Problem(s): Weakness of both lower extremities Will refer patient to physical therapy for strengthening and weightbearing and balance [facility] [id number] History of Present illness Narrative* Princess Saravia MA - 03/21/2023 10:00 AM EST Patient verified by last name and date of . * Vanessa Booth MD - 03/21/2023 10:00 AM EST Images from the original note were not included. 03/21/2023 Dhaval Moon (: 2000) is a 22 y.o. female , Established patient, here for evaluation ofthe following chief complaint(s): Hospital Follow[facility] ([facility] 04/08/22-//Was told have thyroid issue but they [...] her into some physical therapy. Orders: - [facility] Physical Therapy [facility] 5. Weakness of both lower extremities Assessment & Plan: Will refer patient to physical therapy for strengthening and weightbearing and balance Orders: - [facility] Physical Therapy [facility] 6. Acquired hypothyroidism Assessment & [...] signature was used to authenticate this note. Vanessa Booth MD 03/21/2023 11:52 AM documented in this [facility] HealthDischarge summary Author Bharat Pinedo [facility] Note Date/Time July 14, 2024 7:11a m [facility] Medical Records Department [address] [place] [address] Emergency Department Summary 07/14/24 MR#: [id number] Acct: [id number] Name: DHAVAL MOON Rep #:[id number] : [...] worried about possible pneumonia. Patient reported to triagethat she does not feel safe at home [...] She states that she drank a 4 [place] earlier. [facility] Medical History Hypertension Substance abuse History of [...] following commands knew that she was at [facility] years 2024 Skin: Warm, dry, intact [...] % (Auto) 66.7 Lymph % (Auto) 24.0 [place] % (Auto) 5.9 Eos % (Auto) 2.8 [...] No evidence of acute disease. Reading Location: [facility] Discharge Plan Triage [...] Primary [Primary Care Provider] - Print Language: Romanian What to do if you have Problems For any increased pain, shortness of breath, bleeding, nausea or vomiting, chestpain, or any unexpected problems, contact your Primary Care Provider. Call [facility] ([phone]) or report to the closest Emergency Room. Call 911 if necessary. 07/14/24 0711 <Electronically signed by Bharat Pinedo DO> Cosigner Signature (if applicable): CC: No Primary Care Physician ~ Signed [facility] Work Phone: Discharge summary Author Amari Nicholas [facility] Note Date/Time August 04, 2024 5:30 am [facility] Medical Records Department [address] [place] [address] Emergency Department Summary 08/04/24 MR#: [id number] Acct: [id number] Name: DHAVAL MOON Rep #:[id number] : 2000 23 From: Amari Mendez PCP: Dr. Vanessa Booth MD Status:[facility] ER Location: ED ADDENDUM by Dr. Rickie Rayo MD on 08/04/24 at 0530 Patient was endorsed to me by Dr. Amari Nicholas awaiting evaluation by crisis counselor. In discussion with the counselor, it was felt that she may require placement in a dual diagnosis facility for her alcohol use, and her bipolar disorder with borderline personality disorder. As she is not on her medication,she is starting to deteriorate and become more unstable. Per crisis counselor, he had told her that he was leaning towards admission, but as she became more agitated and unstable, he confirmed that he recommends placement. Patient was put on 72-hour hold. She became more and more agitated, leaving her room, and becoming slightly more psychotic. Eventually, she eloped from the emergency department. Upon arrival back to the emergency department, I did order Ativan 2mg intramuscularly. This was administered, and I was informed that she was accepted at [facility]. She has been more calm and sleeping. Disposition is transferred in stable condition. 08/04/24 0530<Electronically signed by Rickie Rayo MD> Cosigner Signature (if applicable): cc: Dr. Vanessa Booth MD ~* Signed HPI History of Present Illness Chief Complaint: Shortness of Breath Informant: patient and EMS Narrative Narrative: 23-year-old female history of methamphetamine abuse, bipolar disorder borderlinepersonality disorder alcohol abuse presenting to the emergency room stating thatprabhjote needs help with her life. Patient states that she is trying to stay free from methamphetamines and is worried about her drinking. She states she does not drink every day but has been drinking more so than normal. She states that she saw her primary care physician a couple weeks ago but did not see the actualphysician but another practitioner in the group. She states they would not refill her psychiatric medicines but only the hydroxyzine. States that she wanted them to prescribe her Zyprexa. She states that she is not currently seeing a psychiatrist. Patient states that her life is in turmoil and she does not know if she can cope with it on her own. She is unsure if she wants alcoholdetox. She called EMS because this morning she states that she was breathing fast and had paresthesias in her hands. There is a report from EMS that she had[place]dosed [place] the park but the details surrounding that are not clear and the patient does not recall that. [facility] Medical History Hypertension Substance abuse History of bipolar disorder History of schizophrenia Schizo affective schizophrenia Bipolar 1 disorder Alcohol abuse PTSD (post-traumatic stress disorder) Depression Anxiety Home Medications ?Medication ?Instructions ?Recorded ?Last Taken ?Type albuterol sulfate 90 mcg/actuation 2 puff inhalation Q 6H PRN PRN 07/14/24 Unknown History aerosol inhaler wheezing fluticasone propionate 45 2 inh inhalation Q12H Unknown History mcg-salmeterol 21 mcg/actuation HFA inhaler (Advair HFA) folic acid 1 mg tablet 1 mg PO DAILY 07/14/24 Unkno wn History hydroxyzine pamoate 25 mg capsule 50 mg PO Q8H PRN PRN anxiety 07/14/24 Unknown History losartan 50 mg tablet 50 mg PO DAILY 07/14/24 Unkn own History metoprolol succinate 25 mg 25 mg PO BID 07/14/24 Unkno wn History tablet,extended release 24 hr multivitamin 1 tab PO DAILY 07/14/24 Unkn own History olanzapine 5 mg tablet 5 mg PO QHS 07/14/24 Unknown History omeprazole 20 mg capsule,delayed 20 mg PO DAILY Unknown History release vitamin B complex-folic acid 0.4 1 tab PO DAILY Unknown History mg tablet (B Complex 1 (with folic acid)) Allergy/AdvReac Type Severity Reaction Status Date / Time Penicillins (PCN) Allergy Hives Verified 08/03/24 19:36 pine nut Allergy Hives Verified 08/03/24 19:36 Social History Smoking Status: Current some day smoker tobacco type: cigarettes and e- cigarettes substance use type: methamphetamine ROS ROS ED Constitutional Constitutional ED: Denies chills, fever(s) or weight loss Eyes Eyes: Denies change in vision or diplopia ENT ENT ED: Denies ear pain, rhinorrhea or sore throat Cardiovascular Cardiovascular: Denies chest pain, orthopnea, palpitations or racing heartbeat Respiratory/Chest Respiratory/Chest: Reports cough and dyspnea; Denies orthopnea Gastrointestinal Gastrointestinal: Denies abdominal pain, diarrhea, nausea or vomiting Genitourinary Genitourinary ED: Denies dysuria, hematuria or urinary frequency Musculoskeletal Musculoskeletal: Denies arthralgias or myalgias Integumentary Denies abscess or rash Neurologic Neurologic: Reports paresthesias RUE and LUE; Denies headache(s) or weakness Psychiatric Psychiatric: Reports anxiety and depression; Denies suicidal ideation or suicidal thoughts Endocrine Endocrinology: Denies polydipsia, polyphagia or polyuria Allergic/Immunologic Allergic/Immunologic ED: Denies mouth swelling, tongue swelling or urticaria EXAM Physical Exam Const Vital Signs: 08/03/24 19:36 08/03/24 19:54 08/03/24 21:39 Temperature 98.5 F 98.1 F Temperature Source Oral Oral Pulse Rate 104 H 95 Respiratory Rate 18 16 Respiratory Effort Normal Respiratory Depth Normal Respiratory Pattern Normal Blood Pressure 138/94 H 144/82 H Blood Pressure Mean 108 102 Pulse Ox 100 100 Oxygen Delivery Method Room Air Room Air Room Air 08/03/24 23:00 Temperature Temperature Source Pulse Rate 84 Respiratory Rate 14 Respiratory Effort Respiratory Depth Respiratory Pattern Blood Pressure 135/91 H Blood Pressure Mean 105 Pulse Ox 100 Oxygen Delivery Method Room Air Positive well nourished and well developed General Appearance ED: well developed and NAD HEENT Reports normocephalic, head/scalp atraumatic and moist mucous membranes Eyes PERRL and EOMs intact bilaterally Neck no lymphadenopathy, supple and no JVD Resp normal respiratory effort and clear to auscultation bilaterally Cardio regular rate, regular rhythm and no murmurs GI normal to inspection, nondistended, normoactive bowel sounds and non-tender Palpation: soft Back/Spine no CVA tenderness and normal ROM Extremity normal to inspection General Extremety ED: Negative for edema General Extremity: Negative for edema Neuro oriented x3 and CN's II-XII intact bilaterally Sensorium / Orientation: alert Motor Exam: strength 5/5 throughout Psych Psych Narrative: Patient is demonstrating pressured speech. She does not have tangential thinking and rapidly moves from subject to subject. She is however redirectable. She denies active suicidal plan or homicidal thoughts. She denies hallucinations. She endorses anxiety. I have seen this patient in the past andmany times she is very fidgety and cannot sit still. However today she is able to sit comfortably in the bed. She occasionally will make eye contact with me. Mood & Affect: Negative for depressed or tearful Skin no rashes or lesions noted and no wounds MDM MDM MDM Narrative Medical decision making narrative: Differential diagnosis includes but not limited to suicidal ideation polysubstance abuse medication noncompliance intoxication Basic blood work is obtained rather unremarkable. Toxicology is positive for presumptive amphetamines. Alcohol is negative. TSH is normal. test is negative. EKG is a sinus rhythm at a rate of 80 bpm. My independent interpretation of the chest x-ray is no acute process. Electrolytes are within normal limits. No evidence of FLOYD. I visited with the patient and he also visited with our social worker assistant as well asspoke with crisis. Crisis is going to come and evaluate the patient. Disposition will be made after conferring with them. Care of the patient's willbe turned over to the oncoming night physician. History & Record Review Discussion w/independent historian: EMS personnel and Patient Additional record(s) reviewed:: Prior ED visit and Prior labs Lab Data Attestation: I reviewed the patient's lab results. Labs: Laboratory Results - last 24 hr 08/03/24 08/03/24 08/03/24 21:36 21:45 21:46 WBC 9.3 RBC 4.24 Hgb 13.6 Hct 40.1 MCV 94.6 MCH 32.1 H MCHC 33.9 RDW Std Deviation 48.3 H RDW Coeff of Jaden 14.0 Plt Count 306 MPV 10.9 Immature Gran % (Auto) 0.200 Neut % (Auto) 58.1 Lymph % (Auto) 31.8 [place] % (Auto) 7.8 Eos % (Auto) 1.7 Baso % (Auto) 0.4 Absolute Neuts (auto) 5.4 Absolute Lymphs (auto) 2.96 Nucleated RBC % 0 PT Cancelled INR Cancelled APTT Cancelled Sodium Cancelled Potassium Cancelled Chloride Cancelled Carbon Dioxide Cancelled Anion Gap Cancelled BUN Cancelled Creatinine Cancelled Estim Creat Clear Calc Cancelled Est GFR (MDRD) Non-Af Cancelled BUN/Creatinine Ratio Cancelled Glucose Cancelled Calcium Cancelled Magnesium Cancelled Total Bilirubin Cancelled Direct Bilirubin Cancelled AST Cancelled ALT Cancelled Alkaline Phosphatase Cancelled Total Protein Cancelled Albumin Cancelled Globulin Cancelled TSH Cancelled Serum , Qual NEGATIVE Urine Color Yellow Urine Clarity Clear Urine pH 6.5 Ur Specific [place] 1.015 Urine Protein 15 H Urine Glucose (UA) Normal Urine Ketones 50 H Urine Occult Blood Negative Urine Nitrite Negative Urine Bilirubin Negative Urine Urobilinogen Normal Ur Leukocyte Esterase Negative Urine RBC 0 SEEN Urine WBC 0-5 SEEN Ur Squamous Epith Cells 0-5 SEEN Amorphous Sediment 1+ Urine Bacteria 3+ Urine Mucus 1+ Urine Opiates Screen NEGATIVE U Buprenorphine Qual NEGATIVE Ur Oxycodone Screen NEGATIVE Urine Methadone Screen NEGATIVE Urine Fentanyl Screen NEGATIVE Ur Barbiturates Screen NEGATIVE Ur Phencyclidine Scrn NEGATIVE Ur Amphetamines Screen PRESUMPTIVE POSITIVE U Benzodiazepines Scrn NEGATIVE Urine Cocaine Screen NEGATIVE U Cannabinoids Screen NEGATIVE Ethyl Alcohol Cancelled 08/03/24 08/03/24 22:20 22:35 WBC RBC Hgb Hct MCV MCH MCHC RDW Std Deviation RDW Coeff of Jaden Plt Count MPV Immature Gran % (Auto) Neut % (Auto) Lymph % (Auto) [place] % (Auto) Eos % (Auto) Baso % (Auto) Absolute Neuts (auto) Absolute Lymphs (auto) Nucleated RBC % PT 13.7 INR 1.0 APTT 31.1 Sodium 137 Potassium 3.4 Chloride 104 Carbon Dioxide 20.1 L Anion Gap 12 BUN 6 Creatinine 0.47 L Estim Creat Clear Calc 203.57 Est GFR (MDRD) Non-Af 137 BUN/Creatinine Ratio 12.2 Glucose 81 Calcium 9.0 Magnesium 1.8 Total Bilirubin 1.30 Direct Bilirubin 0.55 H AST 15 ALT 6 Alkaline Phosphatase 78 Total Protein 6.8 Albumin 3.5 Globulin 3.3 TSH 1.690 Serum , Qual Urine Color Urine Clarity Urine pH Ur Specific [place] Urine Protein Urine Glucose (UA) Urine Ketones Urine Occult Blood Urine Nitrite Urine Bilirubin Urine Urobilinogen Ur Leukocyte Esterase Urine RBC Urine WBC Ur Squamous Epith Cells Amorphous Sediment Urine Bacteria Urine Mucus Urine Opiates Screen U Buprenorphine Qual Ur Oxycodone Screen Urine Methadone Screen Urine Fentanyl Screen Ur Barbiturates Screen Ur Phencyclidine Scrn Ur Amphetamines Screen U Benzodiazepines Scrn Urine Cocaine Screen U Cannabinoids Screen Ethyl Alcohol < 10.1 Radiography Diagnostic Testing: Clinical Impression(s) from Imaging Studies Chest X-Ray 08/03/24 21:35 IMPRESSION: Negative Chest. 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 and Behavioral health Discharge Plan Triage Chief Complaint: Shortness of Breath Other Complaint: Anxiety ED Provider: Amari Nicholas Dx/Rx/DC Orders Prescriptions: No Action losartan 50 mg tablet 50 mg PO DAILY metoprolol succinate 25 mg tablet extended release 24 hr 25 mg PO BID albuterol sulfate 90 mcg/actuation HFA aerosol inhaler 2 puff inhalation Q6H PRN PRN (Reason: wheezing) fluticasone propion-salmeterol [Advair HFA] 45-21 mcg/actuation HFA aerosol inhaler 2 inh inhalation Q12H multivitamin Tablet 1 tab PO DAILY olanzapine 5 mg tablet 5 mg PO QHS omeprazole 20 mg capsule,delayed release(DR/EC) 20 mg PO DAILY folic acid 1 mg tablet 1 mg PO DAILY hydroxyzine pamoate 25 mg capsule 50 mg PO Q8H PRN PRN (Reason: anxiety) vitamin B complex-folic acid [B Complex 1 (with folic acid)] 0.4 mg tablet 1 tab PO DAILY Primary Care Provider: Vanessa Booth Referrals: Vanessa Booth MD [Primary Care Provider] - Print Language: Romanian What to do if you have Problems For any increased pain, shortness of breath, bleeding, nausea or vomiting, chestpain, or any unexpected problems, contact your Primary Care Provider. Call [facility] ([phone]) or report to the closest Emergency Room. Call 911 if necessary. 08/04/24 0042 <Electronically signed by Amari Nicholas DO> Cosigner Signature (if applicable): CC: Dr. Vanessa Booth MD ~ Signed [facility] Work Phone: Discharge summary Author Bharat Pinedo [facility] Note Date/Time November 11, 2024 6:21am [facility] Medical Records Department [address] [place] [address] Emergency Department Summary 11/11/24 MR#: [id number] Acct: [id number] Name: DHAVAL MOON Rep #:[id number] : 2000 24 From: Bharat Pinedo DO PCP: Dr. Vanessa Booth MD Status:REG ER Location: ED HPI History of Present Illness Chief Complaint: Anxiety Narrative Narrative: Patient is a 24-year-old female with past medical history of substance abuse, bipolar disorder, hypertension, PTSD, anxiety, depression who presented to the emergency department with a chief complaint of feeling anxious and feeling like her heart is racing in the chest. States that she smoked weed earlier and notesthat the symptoms started afterwards. She also complains of some nausea and vomiting denies any recent sick contacts. [facility] Medical History Hypertension Substance abuse History of bipolar disorder History of schizophrenia Schizo affective schizophrenia Bipolar 1 disorder Alcohol abuse PTSD (post-traumatic stress disorder) Depression Anxiety Home Medications ?Medication ?Instructions ?Recorded ?Last Taken ?Type albuterol sulfate 90 mcg/actuation 2 puff inhalation Q 6H PRN PRN 07/14/24 Unknown History aerosol inhaler wheezing fluticasone propionate 45 2 inh inhalation Q12H Unknown History mcg-salmeterol 21 mcg/actuation HFA inhaler (Advair HFA) folic acid 1 mg tablet 1 mg PO DAILY 07/14/24 Unkno wn History hydroxyzine pamoate 25 mg capsule 50 mg PO Q8H PRN PRN anxiety 07/14/24 Unknown History losartan 50 mg tablet 50 mg PO DAILY 07/14/24 Unkn own History metoprolol succinate 25 mg 25 mg PO BID 07/14/24 Unkno wn History tablet,extended release 24 hr multivitamin 1 tab PO DAILY 07/14/24 Unkn own History olanzapine 5 mg tablet 5 mg PO QHS 07/14/24 Unknown History omeprazole 20 mg capsule,delayed 20 mg PO DAILY Unknown History release vitamin B complex-folic acid 0.4 1 tab PO DAILY Unknown History mg tablet (B Complex 1 (with folic acid)) Allergy/AdvReac Type Severity Reaction Status Date / Time Penicillins (PCN) Allergy Hives Verified 11/11/24 03:18 pine nut Allergy Hives Verified 11/11/24 03:18 Social History Smoking Status: Current some day smoker tobacco type: cigarettes and e- cigarettes substance use type: methamphetamine ROS ROS ED ROS Narrative Constitutional: Denies any fevers, chills, headaches, lightheadedness, dizziness Eyes: Denies double vision blurry vision Cardiovascular: Complains of palpitations denies chest pain Respiratory: Denies coughing wheezing shortness of breath Abdomen: Denies abdominal pain diarrhea complains of nausea and vomiting : Denies any urinary symptoms Neurological: Denies any numbness, weeks, tingling Musculoskeletal: Denies back pain Skin: Denies any rashes or lesions EXAM Physical Exam Narrative Exam Narrative: General: Patient lying in bed rest comfortably did not appear to be in acute distress Head: Atraumatic, normocephalic Eyes: PERRL bilaterally, EOMI bilaterally, no conjunctival injection noted Neck: Soft, supple, trachea midline Cardiovascular: Patient tachycardic with a regular rhythm Respiratory: Clear to auscultation bilaterally Abdomen: Soft, nondistended, no tenderness to palpation Extremities: +5/5 strength noted in the bilateral upper and lower extremities Neurological: Patient follow commands that she was at [facility] years 2024 Skin: Warm, dry, intact no rashes or lesions noted Const Vital Signs: 11/11/24 03:18 Temperature 97.7 F L Temperature Source Oral Pulse Rate 124 H Respiratory Rate 18 Blood Pressure 166/122 H Blood Pressure Mean 136 Pulse Ox 100 Oxygen Delivery Method Room Air MDM MDM MDM Narrative Medical decision making narrative: Patient is a 24-year-old female who presents to the emergency department the chief complaint of palpitations, nausea vomiting after smoking marijuana. On the differential diagnose includes but limited to , viral gastroenteritis, cyclical vomiting syndrome from cannabis use. Once workup is obtained reviewed she will be reevaluated. Patient was given Zofran and Haldol. Patient chest x-ray reviewed by myself by radiology and showed no acute processes. Patient was EKG reviewed which showed sinus tachycardia the rate of 116 bpm. test negative On reevaluation the patient she is feeling much better she would like to go homeat this point in time. She advised to follow-up with doctor outpatient and return with worsening symptoms or concerns. All question concerns answered she is discharged home in stable condition. Lab Data Labs: Laboratory Results - last 24 hr 11/11/24 04:17 Urine Test Negative Radiography Diagnostic Testing: Clinical Impression(s) from Imaging Studies Chest X-Ray 11/11/24 04:10 IMPRESSION: No acute process is identified in the chest. Reading Location: [facility] Discharge Plan Triage Chief Complaint: Anxiety ED Provider: Bharat Pinedo Dx/Rx/DC Orders Clinical Impression: Anxiety, Palpitations Prescriptions: No Action losartan 50 mg tablet 50 mg PO DAILY metoprolol succinate 25 mg tablet extended release 24 hr 25 mg PO BID albuterol sulfate 90 mcg/actuation HFA aerosol inhaler 2 puff inhalation Q6H PRN PRN (Reason: wheezing) fluticasone propion-salmeterol [Advair HFA] 45-21 mcg/actuation HFA aerosol inhaler 2 inh inhalation Q12H multivitamin Tablet 1 tab PO DAILY olanzapine 5 mg tablet 5 mg PO QHS omeprazole 20 mg capsule,delayed release(DR/EC) 20 mg PO DAILY folic acid 1 mg tablet 1 mg PO DAILY hydroxyzine pamoate 25 mg capsule 50 mg PO Q8H PRN PRN (Reason: anxiety) vitamin B complex-folic acid [B Complex 1 (with folic acid)] 0.4 mg tablet 1 tab PO DAILY Primary Care Provider: Vanessa Booth Referrals: Vanessa Booth MD [Primary Care Provider, Family Practice] Activity Restrictions/Additional Instructions: Follow-up your doctor in the outpatient setting. Your EKG and your chest x-ray did not show any acute findings today. Return with worsening symptoms or any other concerns Print Language: Romanian Disposition Disposition: Home, Self Care What to do if you have Problems For any increased pain, shortness of breath, bleeding, nausea or vomiting, chestpain, or any unexpected problems, contact your Primary Care Provider. Call [facility] ([phone]) or report to the closest Emergency Room. Call 911 if necessary. 11/11/24620 <Electronically signed by Bharat Pinedo DO> Cosigner Signature (if applicable): CC: Dr. Vanessa Booth MD ~ Signed [facility] Work Phone: Discharge summary Author [facility] Note Date/Time November 13, 2024 8: 40am [facility] Medical Records Department [address] [place] [address] Emergency Department Summary 11/13/24 MR#: [id number] Acct: [id number] Name: DHAVAL MOON Rep #:[id number] : 2000 24 From: Nas Schilling DO PCP: Dr. Vanessa Booth MD Status:DEP ER Location: ED HPI History of Present Illness Chief Complaint: Lower Extremity Injury Detail of Chief Complaint: Left ankle injury Informant: patient Narrative Narrative: Patient presents to the emergency department after sustaining a left ankle injury this morning. Patient states that she was having an asthma attack and was walking to get her inhaler from her friend's house when she stepped on a walnut and rolled her ankle. Patient able to bear some weight afterwards. Denies any other injuries. She called EMS who brought her in for evaluation. Denies recent illness [facility] Medical History Hypertension Substance abuse History of bipolar disorder History of schizophrenia Schizo affective schizophrenia Bipolar 1 disorder Alcohol abuse PTSD (post-traumatic stress disorder) Depression Anxiety Home Medications ?Medication ?Instructions ?Recorded ?Last Taken ?Type albuterol sulfate 90 mcg/actuation 2 puff inhalation Q 6H PRN PRN 07/14/24 Unknown History aerosol inhaler wheezing fluticasone propionate 45 2 inh inhalation Q12H Unknown History mcg-salmeterol 21 mcg/actuation HFA inhaler (Advair HFA) folic acid 1 mg tablet 1 mg PO DAILY 07/14/24 Unkno wn History hydroxyzine pamoate 25 mg capsule 50 mg PO Q8H PRN PRN anxiety 07/14/24 Unknown History losartan 50 mg tablet 50 mg PO DAILY 07/14/24 Unkn own History metoprolol succinate 25 mg 25 mg PO BID 07/14/24 Unkno wn History tablet,extended release 24 hr multivitamin 1 tab PO DAILY 07/14/24 Unkn own History olanzapine 5 mg tablet 5 mg PO QHS 07/14/24 Unknown History omeprazole 20 mg capsule,delayed 20 mg PO DAILY Unknown History release vitamin B complex-folic acid 0.4 1 tab PO DAILY Unknown History mg tablet (B Complex 1 (with folic acid)) Allergy/AdvReac Type Severity Reaction Status Date / Time Penicillins (PCN) Allergy Hives Verified 11/13/24 07:11 pine nut Allergy Hives Verified 11/13/24 07:11 Social History Smoking Status: Current some day smoker tobacco type: cigarettes and e- cigarettes substance use type: methamphetamine ROS ROS ED Review of Systems ROS Unobtainable: other Constitutional Constitutional ED: Reports lethargy; Denies chills, fever(s), sweats or weight loss Eyes Eyes: Denies blurry vision, change in vision or diplopia ENT ENT ED: Denies rhinorrhea or sore throat Cardiovascular Cardiovascular: Denies chest pain, orthopnea or racing heartbeat Respiratory/Chest Respiratory/Chest: Reports dyspnea; Denies cough, dyspnea on exertion, orthopneaor sputum Gastrointestinal Gastrointestinal: Denies abdominal pain, diarrhea, nausea or vomiting Genitourinary Genitourinary ED: Denies dysuria, hematuria or urinary frequency Musculoskeletal Musculoskeletal: Reports other Details: Left ankle injury/pain ; Denies arthralgias, back pain, myalgias or neck pain Integumentary Denies abscess, Abrasions or rash Neurologic Neurologic: Denies headache(s) or weakness Psychiatric Psychiatric: Denies anxiety, depression or suicidal thoughts Endocrine Endocrinology: Denies polydipsia, polyphagia or polyuria Hematologic/Lymphatic Hematologic/Lymphatic: Denies easy bleeding, easy bruising or lymphadenopathy Allergic/Immunologic Allergic/Immunologic ED: Denies mouth swelling, tongue swelling or urticaria EXAM Physical Exam Const Vital Signs: 11/13/24 07:09 11/13/24 07:35 Temperature 97.7 F L Temperature Source Oral Pulse Rate 100 95 Respiratory Rate 16 16 Blood Pressure 123/84 H Blood Pressure Mean 97 Pulse Ox 97 Oxygen Delivery Method Room Air Positive well nourished and well developed General Appearance ED: well developed and NAD HEENT Reports TM's clear and moist mucous membranes normocephalic and atraumatic; Negative for trauma or tenderness Tympanic Membrane ED: Yes TM's clear Eyes PERRL and EOMs intact bilaterally General Eye ED: Negative for pale conjunctiva or scleral icterus Neck no lymphadenopathy, supple and no JVD General: Negative for tenderness Chest Wall inspection of chest normal and palpation of chest normal Chest: Negative for tenderness Resp normal respiratory effort and clear to auscultation bilaterally Resp Narrative: No significant tachypnea or conversational dyspnea. She has some faint expiratory wheezes bilaterally. Effort and Inspection: Negative for respiratory distress or pain with movement Auscultation: wheezes; Negative for rhonchi or diminished lung sounds Cardio regular rate, regular rhythm, S1 normal heart sound, S2 normal heart sound and no murmurs Peripheral Pulses: pulses 2+ throughout GI normal to inspection, nondistended, normoactive bowel sounds, soft to palpation,non-tender, non-distended and no masses Back/Spine no CVA tenderness and no thoracic nor lumbar tenderness Extremity Extremity Narrative: Left ankle-patient has soft tissue swelling over the lateral malleolus with tenderness to palpation. She has no pain at the proximal fibular head. No painat the base of the fifth metatarsal. She is neurovascular intact distally. General Extremety ED: Negative for edema General Extremity: Negative for edema Neuro oriented x3, CN's II-XII intact bilaterally, no sensory deficits noted and gait normal Sensorium / Orientation: awake, alert, oriented to person, oriented to place andoriented to time Motor Exam: strength 5/5 throughout and strength abnormal Psych mental status grossly normal Skin no rashes or lesions noted and no wounds MDM MDM MDM Narrative Medical decision making narrative: Patient presents to the emergency department with complaint of injury to her left ankle. No other injuries noted. Also has history of asthma and was complaining of some mild dyspnea. I did give her a DuoNeb aerosol. X-rays of the left ankle were obtained which showed no fractures. I went back into speak with the patient and do exit interview however she had eloped from the department with her significant other. Radiography Diagnostic Testing: Clinical Impression(s) from Imaging Studies Ankle X-Ray 11/13/24 07:50 IMPRESSION: On lateral imaging, normal contour of the Achilles tendon is seen. There is probably a small ankle joint effusion. Soft tissue swelling is seen over the lateral malleolus. Satisfactory osseous alignment is noted. The ankle mortise appears intact. No fracture or dislocation is seen. If clinical concern persists, short-term follow-up imaging may be obtained to rule out a currently occult fracture. Reading Location: [address] Three-view x-rays of the left ankle obtained interpreted by myself as no evidence of fracture or dislocation or acute process. Radiology in agreement. Discharge Plan Triage Chief Complaint: Lower Extremity Injury ED Provider: Nas Schilling Dx/Rx/DC Orders Clinical Impression: Left ankle sprain, Asthma Prescriptions: No Action losartan 50 mg tablet 50 mg PO DAILY metoprolol succinate 25 mg tablet extended release 24 hr 25 mg PO BID albuterol sulfate 90 mcg/actuation HFA aerosol inhaler 2 puff inhalation Q6H PRN PRN (Reason: wheezing) fluticasone propion-salmeterol [Advair HFA] 45-21 mcg/actuation HFA aerosol inhaler 2 inh inhalation Q12H multivitamin Tablet 1 tab PO DAILY olanzapine 5 mg tablet 5 mg PO QHS omeprazole 20 mg capsule,delayed release(DR/EC) 20 mg PO DAILY folic acid 1 mg tablet 1 mg PO DAILY hydroxyzine pamoate 25 mg capsule 50 mg PO Q8H PRN PRN (Reason: anxiety) vitamin B complex-folic acid [B Complex 1 (with folic acid)] 0.4 mg tablet 1 tab PO DAILY Primary Care Provider: Vanessa Booth Referrals: Vanessa Booth MD [Primary Care Provider, Family Practice] Print Language: Romanian Disposition Disposition: Elopement What to do if you have Problems For any increased pain, shortness of breath, bleeding, nausea or vomiting, chestpain, or any unexpected problems, contact your Primary Care Provider. Call [facility] ([phone]) or report to the closest Emergency Room. Call 911 if necessary. 11/13/24 [id number] <Electronically signed by Nas Schilling DO> Cosigner Signature (if applicable): CC: Dr. 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 Weakness of both lower extremities Acquired hypothyroidism Unspecified hypothyroidism Polycythemia Polycythemia, secondary Morbid obesity with body mass index (BMI) of 50.0 to 59.9 in adult (HCC) [facility] noteNo assessment information availableK[facility] Work Phone: evaluation note* Diagnosis 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 Moderate persistent asthma with exacerbation Unspecified asthma, with exacerbation Multiple open wounds of foot [facility] Diagnosis 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 Moderate persistent asthma with exacerbation Unspecified asthma, with exacerbation Multiple open wounds of foot Moderate episode of recurrent major depressive disorder (HCC) [facility] Diagnosis Alcohol abuse- Primary Alcohol abuse, unspecified [facility]* Diagnosis 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 Multiple open wounds of foot [facility] Diagnosis Moderate persistent asthma with exacerbation- Primary Unspecified asthma, with exacerbation Anxiety Anxiety state, unspecified Moderate episode of recurrent major depressive disorder (HCC) Elevated transaminase level Screening for diabetes mellitus Screening for lipid disorders Controlled drug dependence (HCC) [facility]* Diagnosis Paranoia (psychosis) (HCC)- Primary Delusional disorder Hypokalemia Hypopotassemia Methamphetamine-induced psychotic disorder (HCC) [facility] Diagnosis ETOH abuse- Primary Nondependent [...] wounds of foot [facility]* Diagnosis ETOH abuse- Primary Nondependent [...] depressive disorder (HCC) [facility]* Diagnosis Generalized abdominal pain- Primary Abdominal pain, generalized Chest pain, unspecified type documented in this encounter [facility] note* Diagnosis Alcohol withdrawal, uncomplicated (HCC)- Primary Alcohol withdrawal (HCC) Alcohol withdrawal Alcohol use disorder Methamphetamine use (HCC) Nondependent amphetamine or related acting sympathomimetic abuse, unspecified Cannabis use, uncomplicated documented in this encounter [facility] note* Diagnosis Alcohol abuse- Primary Nondependent alcohol abuse, unspecified drinking behavior documented in this encounter [facility] note* Diagnosis Encounter for medical screening examination- Primary documented in this encounter [facility] note* Diagnosis Urinary tract infection without hematuria, site unspecified- Primary Bacterial vaginosis Vaginitis and vulvovaginitis, unspecified documented in this encounter [facility] note* Diagnosis Pain of upper abdomen- Primary Abdominal pain, other specified site documented in this encounter [facility] note* Diagnosis Urinary tract infection with hematuria, site unspecified- Primary Alcohol use disorder documented in this encounter [facility] course Narrative No data available for this section [facility] Hospital Discharge instructions No data available for this section [facility] Hospital Discharge instructions Additional Instructions Your blood pressure is elevated. You should have this reassessed in 1 to 2 weeks by your doctor, Dr. [facility] Work Phone: Hospital Discharge instructions Additional Instructions In order to have further skin testing performed you will need to have your family doctor refer you to a malt house operator. Please refrain from methamphetamine use as this can make your symptoms worse.[facility] Work Phone: Hospital Discharge instructions* Attachments The following attachments cannot be sent through Care Everywhere. * Abdominal Pain (Romanian) * Chest Pain (Romanian) * Dyspepsia (Romanian) [facility]* Attachments The following attachments cannot be sent through Care Everywhere. * Alcohol Use Disorder: General Info (Romanian) [facility]* Attachments The following attachments cannot be sent through Care Everywhere. * Abdominal Pain (Romanian) [facility] Discharge instructionsAdditional Instructions Follow-up your doctor in the outpatient setting. Your EKG and your chest x-ray did not show any acute findings today. Return with worsening symptoms or any other concerns [facility] Work Phone: Hospital Discharge instructionsAdditional Instructions Follow-up with the counseling center for your depression. Follow-up with 180 for your alcohol use. Return if feeling worse.[facility] Work Phone: Progress note No data available for this section [facility] Reason for referral (narrative)* Consultation (Routine) - Pending Review Specialty Diagnoses / Procedures Referred By Dayne dyer Referred To Contact Wound Care Diagnoses Alcohol-induced polyneuropathy (HCC) Multiple open wounds of foot Procedures [place] OFFICE/OUTPATIENT NEW HIGH MDM 60 MINUTES Vanessa Booth MD [address] [place] [address], [facility] [place] [address] [address] Wnd Ostomy [address] [place] [address] Referral ID Status Reason Start Date Expiration Date Visits Requested Visits Authorized [id number] Pending Review Specialty Services Required 04/25/2023 04/24/2024 1 1 [facility] for referral (narrative)No reason for referral information availableWLancaster [facility] Work Phone: Reason for referral (narrative)* Radiology (Emergency) - New Request Specialty Diagnoses / Procedures Referred By Dayne dyer Referred To Contact Procedures ECG Kvng Garcia APRN-AIRPORT CONTROL OPERATOR [address] [place] [address] Phone: tel: fax: Referral ID Status Reason Start Date Expiration Date V isits Requested Visits Authorized [id number] New Request 08/12/2024 09/06/2025 1 1 [facility] note* RadhaRAIMUNDO: PERFORM Event Display: Patient Summary Documents Authored Date: [id number] [facility] Summary Purpose Family History No Family History [...] FoundNo Family History Records Found Advance Directives Advance Directive Response Recorded Date/ Time Advance [...] Will No January 07, 9:26pm Power of Customs Collector No January 08, 2024 9:26pm Living Will No April 25, 2024 2:44pm Power of Customs Collector No April 25 2:44pm Living Will No March 23 11:49am Power of Customs Collector No March 23, 2024 11:49am Advance Directive Response Recorded Date/ Time Living Will No January 07, 9:26pm Power of Customs Collector No January 08, 2024 9:26pm Living Will No April 25, 2024 2:44pm Power of Customs Collector No April 25 2:44pm Living Will No March 23 11:49am Power of Customs Collector No March 23, 2024 11:49am Living Will No April 28, 2024 2:53am Power of Customs Collector No April 28 2:53am Advance Directive Response Recorded Date/ Time Living Will No January 07 9:26pm Do you have a Healthcare Power of Customs Collector? No January 08, 2024 9:26pm Living Will No April 25, 2024 2:44pm Do you have a Healthcare Power of Customs Collector? No April 25, 2024 2:44pm Living Will No March 23 11:49am Do you have a Healthcare Power of Customs Collector? No March 23, 2024 11:49am Living Will No April 28, 2024 2:53am Do you have a Healthcare Power of Customs Collector? No April 28, 2024 2:53am Living Will No May 05, 2024 1:06am Do you have a Healthcare Power of Customs Collector? No May 05, 2024 1:06am Advance Directive Response Recorded Date/ Time Living Will No April 25, 2024 2:44pm Do you have a Healthcare Power of Customs Collector? No April 25, 2024 2:44pm Living Will No March 23 11:49am Do you have a Healthcare Power of Customs Collector? No March 23, 2024 11:49am Living Will No April 28, 2024 2:53am Do you have a Healthcare Power of Customs Collector? No April 28, 2024 2:53am Living Will No May 05, 2024 1:06am Do you have a Healthcare Power of Customs Collector? No May 05, 2024 1:06am Advance Directive Response Recorded Date/ Time Living Will No April 25, 2024 2:44pm Do you have a Healthcare Power of Customs Collector? No April 25, 2024 2:44pm Living Will No March 23 11:49am Do you have a Healthcare Power of Customs Collector? No March 23, 2024 11:49am Living Will No April 28, 2024 2:53am Do you have a Healthcare Power of Customs Collector? No April 28, 2024 2:53am Living Will No May 05, 2024 1:06am Do you have a Healthcare Power of Customs Collector? No May 05, 2024 1:06am Living Will No June 02, 2024 1:31pm Do you have a Healthcare Power of Customs Collector? No June 02, 2024 1:31pm Advance Directive Response Recorded Date/ Time Living Will No April 25, 2024 2:44pm Do you have a Healthcare Power of Customs Collector? No April 25, 2024 2:44pm Do you have a Healthcare Power of Customs Collector? No June 13, 2024 5:02am Do you have a Healthcare Power of Customs Collector? No July 14, 2024 2:02am Living Will No March 23 11:49am Do you have a Healthcare Power of Customs Collector? No March 23, 2024 11:49am Living Will No April 28, 2024 2:53am Do you have a Healthcare Power of Customs Collector? No April 28, 2024 2:53am Living Will No May 05, 2024 1:06am Do you have a Healthcare Power of Customs Collector? No May 05, 2024 1:06am Living Will No June 02, 2024 1:31pm Do you have a Healthcare Power of Customs Collector? No June 02, 2024 1:31pm Do you have a Healthcare Power of Customs Collector? No June 13, 2024 10:33am Advance Directive Response Recorded Date/ Time Living Will No April 25, 2024 2:44pm Do you have a Healthcare Power of Customs Collector? No April 25, 2024 2:44pm Do you have a Healthcare Power of Customs Collector? No June 13, 2024 5:02am Do you have a Healthcare Power of Customs Collector? No July 14, 2024 2:02am Living Will No March 23 11:49am Do you have a Healthcare Power of Customs Collector? No March 23, 2024 11:49am Living Will No April 28, 2024 2:53am Do you have a Healthcare Power of Customs Collector? No April 28, 2024 2:53am Living Will No May 05, 2024 1:06am Do you have a Healthcare Power of Customs Collector? No May 05, 2024 1:06am Living Will No June 02, 2024 1:31pm Do you have a Healthcare Power of Customs Collector? No June 02, 2024 1:31pm Do you have a Healthcare Power of Customs Collector? No June 13, 2024 10:33am Do you have a Healthcare Power of Customs Collector? No July 14, 2024 11:08pm Advance Directive Response Recorded Date/ Time Living Will No April 25, 2024 2:44pm Do you have a Healthcare Power of Customs Collector? No April 25, 2024 2:44pm Do you have a Healthcare Power of Customs Collector? No June 13, 2024 5:02am Do you have a Healthcare Power of Customs Collector? No July 14, 2024 2:02am Do you have a Healthcare Power of Customs Collector? No August 03, 2024 7:49pm Living Will No April 28, 2024 2:53am Do you have a Healthcare Power of Customs Collector? No April 28, 2024 2:53am Living Will No May 05, 2024 1:06am Do you have a Healthcare Power of Customs Collector? No May 05, 2024 1:06am Living Will No June 02, 2024 1:31pm Do you have a Healthcare Power of Customs Collector? No June 02, 2024 1:31pm Do you have a Healthcare Power of Customs Collector? No June 13, 2024 10:33am Do you have a Healthcare Power of Customs Collector? No July 14, 2024 11:08pm Date Activated Date Inactivated Comments 09/25/2024 4:44 AM 09/26/2024 5:28 PM Advance Directive Response Recorded Date/ Time Do you have a Healthcare Power of Customs Collector? No August 03, 2024 7:49pm Do you have a Healthcare Power of Customs Collector? No November 11, 2024 3:22am Do you have a Healthcare Power of Customs Collector? No November 13, 2024 7:11am Advance Directive Response Recorded Date/ Time Do you have a Healthcare Power of Customs Collector? No August 03, 2024 7:49pm Do you have a Healthcare Power of Customs Collector? No November 13, 2024 8:47pm Do you have a Healthcare Power of Customs Collector? No November 11, 2024 3:22am Do you have a Healthcare Power of Customs Collector? No November 13, 2024 7:11am Reason for Referral Specialty Diagnoses / Procedures Referred By Contkarlene t Referred To Contact Physical Therapy Diagnoses Alcohol-induced polyneuropathy (HCC) Weakness of both lower extremities Procedures [place] OFFICE/OUTPATIENT [facility] 60 MINUTES Vanessa Booth MD [address] [facility], [place] [address] [facility] [address] [place] [address] Referral ID Status Reason Start Date Expiration Date Visits Requested Visits Authorized [id number] Pending Review Eval and Treat 03/21/2023 03/15/2024 [...] m SOB July 14, 2024 10:58 pm Chief Complaint Admit Date ANXIETY April 25, 2024 2:1 1pm anxiety April 28, 2024 2:4 6am mental health May 05, 2024 1:0 5am MENTAL HEALTH May 30, 2024 9:4 0pm GENERAL June 02, 2024 12: 57pm detox June 13, 2024 4:57am etoh detox June 13, 2024 9:12am general illness July 14, 2024 2:02a m SOB July 14, 2024 10:58 pm anxiety, SOB August 03, 2024 7:35 pm Chief Complaint Admit Date anxiety, SOB August 03, 2024 7:35 pm anxiety November 11, 2024 3:17am ankle November 13, 2024 7: 08am Chief Complaint Admit Date anxiety, SOB August 03, 2024 7:35 pm anxiety November 11, 2024 3:17am ankle November 13, 2024 7: 08am Suicidal November 13, 2024 7: 54pm Additional Source Comments INFORMATION SOURCE (unrecogn ized section and content) DATE CREATED AUTHOR 01/18/2019 [facility] DATE CREATED AUTHOR AUTHOR'S ORGANIZ ATION 03/16/2021 [facility] DATE CREATED AUTHOR AUTHOR'S ORGANIZ ATION 04/17/2023 [facility] DATE CREATED AUTHOR AUTHOR'S ORGANIZ ATION 04/22/2023 [facility] ([place]) DATE CREATED AUTHOR AUTHOR'S ORGANIZ ATION 06/18/2023 [facility] DATE CREATED AUTHOR AUTHOR'S ORGANIZ ATION 09/05/2023 [facility] ([place]) DATE CREATED AUTHOR AUTHOR'S ORGANIZ ATION 07/19/2024 [facility] DATE CREATED AUTHOR AUTHOR'S ORGANIZ ATION 08/10/2024 [facility] DATE CREATED AUTHOR AUTHOR'S ORGANIZ ATION 10/04/2024 [facility] DATE CREATED AUTHOR AUTHOR'S ORGANIZ ATION 2024 [facility] DATE CREATED AUTHOR AUTHOR'S ORGANIZ ATION 10/11/2024 [facility] DATE CREATED AUTHOR AUTHOR'S ORGANIZ ATION 10/13/2024 [facility] DATE CREATED AUTHOR AUTHOR'S ORGANIZ ATION 10/18/2024 [facility] DATE CREATED AUTHOR AUTHOR'S ORGANIZ ATION 10/30/2024 [facility] DATE CREATED AUTHOR AUTHOR'S ORGANIZ ATION 11/02/2024 [facility] Care Teams (unrecognized sec tion and content) Power Plant Technician Relationship Specialty Start Date End Date Vanessa Booth MD [address] [place] [address] PCP - General 05/12/15 Power Plant Technician Relationship Specialty Start Date End Date Vanessa Booth MD [address] [facility] [place] [address] PCP - General 05/12/15 Team Status: Active Member Role Status Dates [facility] Provi shawn Active Team Status: Inactive Member Role Status Dates [facility] Primary Care Provider Active Start: April [id number] End: April 02, 2023 Zachary Armenta MD Emergency Provider Active Sta rt: April 02, 2023 End: April 02, 2023 Team Status: Inactive Member Role Status Dates [facility] Primary Care Provider Active Start: April [id number] End: April 07, 2023 ED Doctor Emergency Provider Active Start: [facility] 2023 End: April 07, 2023 Power Plant Technician Relationship Specialty Start Date End Date Vanessa Booth MD [address] [place] [address] PCP - General 05/12/15 Power Plant Technician Relationship Specialty Start Date End Date Vanessa Booth [place] [address] PCP - General 05/12/15 Power Plant Technician Relationship Specialty Start Date End Date Vanessa Booth MD [address] [place] [id number] PCP - General 05/12/15 Power Plant Technician Relationship Specialty Start Date End Date Vanessa Booth [address] [place] [id number] PCP - General Family Medicine 01/17/19 Power Plant Technician Relationship Specialty Start Date End Date Vanessa Booth MD [address] [place] [id number] PCP - General 05/12/15 Power Plant Technician Relationship Specialty Start Date End Date Vanessa Booth MD [address] [place] [id number] PCP - General 05/12/15 Power Plant Technician Relationship Specialty Start Date End Date Vanessa Booth MD [facility] [place], [place] [id number] PCP - General 05/12/15 Power Plant Technician Relationship Specialty Start Date End Date Vanessa Booth MD [facility] [place], [place] [id number] PCP - General 05/12/15 Power Plant Technician Relationship Specialty Start Date End Date Vanessa Booth MD [facility] [place] [address] PCP - General 05/12/15 Power Plant Technician Relationship Specialty Start Date End Date Vanessa Booth MD [facility] [place] [address] PCP - General 05/12/15 Power Plant Technician Relationship Specialty Start Date End Date Vanessa Booth MD [facility] [place], [place] [id number] PCP - General 05/12/15 Team Status: Active Member Role Status Dates Dr. Vanessa Booth MD Primary Care Provider Active Team Status: Inactive Member Role Status Dates Dr. Vanessa Booth MD Primary Care Provider Active Start: January 08, 2024 End: January 10, 2024 Dr. Maxx Lopez DO Emergency Provider Active Start: January 08, 2024 End: January 10, 2024 Dr. Kirill Perez , Admit Provider Active Start: January 08, 2024 End: January 10, 2024 Dr. Kirill Perez DO Other Provider Active Start: January 08, 2024 End: January 10, 2024 Dr. Easton Pugh MD Attending Provider Active Start: January 08, 2024 End: January 10, 2024 Team Status: Active Member Role Status Dates Dr. Vanessa Booth MD Primary Care Provider Active Start: [...] Status: Active Member Role Status Dates Dr. Vanessa Booth MD Primary Care Provider Active Start: [...] Status: Inactive Member Role Status Dates Dr. Vanessa Booth MD Primary Care Provider Active Start: March 23, 2024 End: March 23, 2024 Rickie Rayo MD Attending Provider Active Star t: March 23, 2024 End: March 23, 2024 Rickie Rayo MD Emergency Provider Active Star t: March 23, 2024 End: March 23, 2024 Team Status: Inactive Member Role Status Dates Dr. Vanessa Booth MD Primary Care Provider Active Start: April 25, 2024 End: April 25, 2024 Dr. Filippo Fuentes MD Emergency Provider Active Sta rt: April 25, 2024 End: April 25, 2024 Team Status: Inactive Member Role Status Dates Dr. Vanessa Booth MD Primary Care Provider Active Start: April 28, 2024 End: April 28, 2024 Dr. Amari Nicholas DO Emergency Provider Active Start: April 28, 2024 End: April 28, 2024 Team Status: Inactive Member Role Status Dates Dr. Vanessa Booth MD Primary Care Provider Active Start: May 05, 2024 End: May 05, 2024 Dr. Daniel Herrera DO Emergency Provider Active Start: May 05, 2024 End: May 05, 2024 Team Status: Inactive Member Role Status Dates Dr. Vanessa Booth MD Primary Care Provider Active Start: April 25, 2024 End: April 25, 2024 Dr. Filippo Fuentes MD Attending Provider Active Sta rt: April 25, 2024 End: April 25, 2024 Dr. Filippo Fuentes MD Emergency Provider Active Sta rt: April 25, 2024 End: April 25, 2024 Team Status: Inactive Member Role Status Dates Dr. Vanessa Booth MD Primary Care Provider Active Start: April 28, 2024 End: April 28, 2024 Dr. Amari Nicholas DO Attending Provider Active Start: April 28, 2024 End: April 28, 2024 Dr. Amari Nicholas DO Emergency Provider Active Start: April 28, 2024 End: April 28, 2024 Team Status: Inactive Member Role Status Dates Dr. Vanessa Booth MD Primary Care Provider Active Start: May 05, 2024 End: May 05, 2024 Dr. Daniel Herrera DO Attending Provider Active Start: May 05, 2024 End: May 05, 2024 Dr. Daniel Herrera DO Emergency Provider Active Start: May 05, 2024 End: May 05, 2024 Team Status: Inactive Member Role Status Dates Dr. Vanessa Booth MD Primary Care Provider Active Start: May 30, 2024 End: May 30, 2024 Ed Physician Provider Emergency Provider Active Start: May 30, 2024 End: May 30, 2024 Team Status: Inactive Member Role Status Dates Dr. Vanessa Booth MD Primary Care Provider Active Start: June 02, 2024 End: June 02, 2024 Dr. Filippo Fuentes MD Emergency Provider Active Sta rt: June 02, 2024 End: June 02, 2024 Power Plant Technician Relationship Specialty Start Date End Date Vanessa Booth MD [address] [place] [address], [place] [address] PCP - General 05/12/15 Power Plant Technician Relationship Specialty Start Date End Date Vanessa Booth MD [address] [place] [address], [place] [address] PCP - General 05/12/15 Team Status: Active Member Role Status Dates No Primary Care Physician Primary Care Provider Active Team Status: Inactive Member Role Status Dates Dr. Vanessa Booth MD Primary Care Provider Active Start: May 30, 2024 End: May 30, 2024 Ed Physician Provider Attending Provider Active Start: May 30, 2024 End: May 30, 2024 Ed Physician Provider Emergency Provider Active Start: May 30, 2024 End: May 30, 2024 Team Status: Inactive Member Role Status Dates Dr. Vanessa Booth MD Primary Care Provider Active Start: June 02, 2024 End: June 02, 2024 Dr. Filippo Fuentes MD Attending Provider Active Sta rt: June 02, 2024 End: June 02, 2024 Dr. Filippo Fuentes MD Emergency Provider Active Sta rt: June 02, 2024 End: June 02, 2024 Team Status: Inactive Member Role Status Dates Dr. Vanessa Booth MD Primary Care Provider Active Start: June 13, 2024 End: June 13, 2024 Dr. Daniel Herrera DO Attending Provider Active Start: June 13, 2024 End: June 13, 2024 Dr. Daniel Herrera DO Emergency Provider Active Start: June 13, 2024 End: June 13, 2024 Team Status: Inactive Member Role Status Dates Dr. Vanessa Booth MD Primary Care Provider Active Start: [...] Role Status Dates Dr. Bharat Pinedo DO Attending Provider Active Start: July 14, 2024 End: July 14, 2024 Dr. Bharat Pinedo DO Emergency Provider Active Start: July 14, 2024 End: July 14, 2024 No Primary Care Physician Primary Care Provider Active Start: July 14, 2024 End: July 14, 2024 Team Status: Inactive Member Role Status Dates No Primary Care Physician Primary Care Provider Active Start: July 14, 2024 End: July 14, 2024 Dr. Daniel Herrera DO Attending Provider Active Start: July 14, 2024 End: July 14, 2024 Dr. Daniel Herrera DO Emergency Provider Active Start: July 14, 2024 End: July 14, 2024 Team Status: Inactive Member Role Status Dates Dr. Amari Nicholas DO Emergency Provider Active Start: August 03, 2024 End: August 04, 2024 Dr. Vanessa Booth MD Primary Care Provider Active Start: August 03, 2024 End: August 04, 2024 Power Plant Technician Relationship Specialty Start Date End Date Vanessa Booth MD [address] [place] [address] PCP - General Family Medicine 08/12/24 Power Plant Technician Relationship Specialty Start Date End Date Vanessa Booth MD [address] [place] [address] PCP - General 05/12/15 Power Plant Technician Relationship Specialty Start Date End Date Mary Kay Bradley [address] [place] [phone] PCP - General Clinical Nurse Specialist 09/24/24 Power Plant Technician Relationship Specialty Start Date End Date Physician, No Pcp PCP - General 09/28/24 Power Plant Technician Relationship Specialty Start Date End Date Physician, No Pcp PCP - General 09/28/24 Power Plant Technician Relationship Specialty Start Date End Date Vanessa Booth MD PCP - General Family Medicine 05/12/15 Power Plant Technician Relationship Specialty Start Date End Date Vanessa Booth MD PCP - General Family Medicine 05/12/15 Power Plant Technician Relationship Specialty Start Date End Date Vanessa Booth MD [address] [place] [address], [place] [address] PCP - General Family Medicine 08/12/24 Team Status: Active Member Role/Relationship Status Dates Dr. Vanessa Booth MD Primary care physician Active Team Status: Inactive Member Role/Relationship Status Dates Dr. Amari Nicholas , Attending physician Active Start: August 03, 2024 End: August 04, 2024 Dr. Amari Nicholas , DO Emergency Department Physician Active Start: August 03, 2024 End: August 04, 2024 Dr. Vanessa Booth MD Primary care physician Active Start: August 03, 2024 End: August 04, 2024 Team Status: Inactive Member Role/Relationship Status Dates Dr. Vanessa Booth MD Primary care physician Active Start: November 11, 2024 End: November 11, 2024 Dr. Bharat Pinedo , DO Emergency Departin nt Physician Active Start: November 11, 2024 End: November 11, 2024 Team Status: Inactive Member Role/Relationship Status Dates Dr. Vanessa Booth MD Primary care physician Active Start: November 13, 2024 End: November 13, 2024 Dr. Nas Schilling , DO [facility] Active Start: November 13, 2024 End: November 13, 2024 Team Status: Active Member Role/Relationship Status Dates Dr. Vanessa Booth MD Primary care physician Active Start: November 13, 2024 Dr. Paul Lewis , DO Emergency Department Physician Active Start: November 13, 2024 Team Status: Inactive Member Role/Relationship Status Dates Dr. Vanessa Booth MD Primary care physician Active Start: November 13, 2024 End: November 14, 2024 Dr. Paul Lewis DO Emergency Department Physician Active Start: November 13, 2024 End: November 14, 2024 Reason for Visit (unrecogniz ed section and content) Reason Comments Hospital Follow-up [facility] 04/08-Was told have thyroid issue but they [...] Comments Scheduling 06/21/2023 Reason Comments ER Follow-up [facility] ED- 06/17/23 Intoxicationhallucinations Hospital Follow-up [facility] Hospital 06/07-Alcohol withdrawal syndrome Health Maintenance [...] Comments Follow-up Possible Medication Check Med Refill Reason Comments Abdominal Pain I think something w kelley with my liver since 2022 from alcoholism, past 2 months fatigue, constipated, thirsty, URQ pain. People say I can be . Lives at sober living house past week Vomiting Yellow and bowels ar e yellow Irregular Menses A few days ago start ed bleeding heavy, thinks may have miscarriage Sore Throat Fatigue Constipation Did have BM today Reason Comments Alcohol Problem Specialty Diagnoses / Procedures Referred By Dayne t Referred To Contact Diagnoses Alcohol withdrawal, uncomplicated (HCC) Referral ID Status Reason Start Date Expiration Date Visits Re quested Visits Authorized [id number] 1 Reason Comments Alcohol Intoxication Alcohol Problem Patient reports samara morin last night. Patient requesting resources for Detox. Reason Comments Alcohol Intoxication Pt states she is morillo ving n/v/d. States she was trying to get to [facility] but told they didn't have any more beds available. Pt drank last night and would like to go to rehab Reason Comments Addiction Problem Reason Comments Abdominal Pain Sharp generalized ab d pain that started last night. Pt also c/o diarrhea and vomiting. Pt sates recently treated for uti. Pt states she drinks 2 24oz beers a day-recently in rehab for it. Reason Comments Anxiety Pt states, I just d ont feel right. Pt reports putting a needle in her hand to use drugs but stopped before she pushed the drugs in. Pt then reports hyperventilating Urinary Pain Pt c/o pain and freq uency Goals (unrecognized section and content) Goals may [...] or prosecute any alcohol or drug abuse patient.[facility] Scheduled Active and Recently Administ ered [...] IV doses dilute dose with 1ml NS. Scheduled Medication Order 08/10/2024 08/11/2024 08/12/2024 faMOTIdine (PEPCID) tablet 20 mg (COMPLETED) 20 mg, Oral, ONCE, 1 dose, On Mon08/12/24 at 2215 2154 (Given - Provid er: Destinee Miller RN) GI Cocktail (ED/CDU) (COMPLETED) Oral, ONCE, 1 dose, On Mon08/12/24 at 2215, 40 mL 2154 (Given - Provid er: Destinee Miller RN) Ondansetron (ZOFRAN-ODT) disintegrating tablet 4 mg (COMPLETED) 4 mg, Oral, ONCE, 1 dose, On Mon08/12/24 at 2215 2154 (Given - Provid er: Destinee Miller RN) Scheduled Medication Order 09/24/2024 09/25/2024 09/26/2024 busPIRone (BUSPAR) tablet 10 mg 10 mg, Oral, 3 times daily, First dose on Mon09/25/24 at 0900 0922 (Given - Provider: Vi Clancy RN)1601 (Given - Provider: Vi Clancy RN)2015 (Given - Provider: Bryan Mustafa RN) 09 (Given - Provider: Trini Bermeo RN)1500 (Due) folic acid (FOLVITE) tablet 1 mg (COMPLETED) 1 mg, Oral, Once, On Mon09/24/24 at 2235, For 1 dose 2253 (Given - Provider: Casey Cabrales RN) folic acid (FOLVITE) tablet 1 mg 1 mg, Oral, Daily (in the afternoon), First dose on Mon09/25/24 at 1300 1238 (Given - Provider: Vi Clancy RN) 1322 (Given - Provider: Trini Bermeo, RN) lidocaine viscous 2% 10 mL and maalox plus 30 mL (GI COCKTAIL) 40 mL solution (COMPLETED) 40 mL, Oral, Once, On Mon09/24/24 at 2310, For 1 dose, Nursing to scan and administer as individual components 2316 (Given - Provider: Airam Hernandez, MCKAYLA) LORazepam (ATIVAN) tablet 0.5 mg (COMPLETED) 0.5 mg, Oral, Once, On Mon09/24/24 at 2310, For 1 dose 2316 (Given - Provider: Airam Hernandez RN) losartan (COZAAR) tablet 50 mg 50 mg, Oral, Daily, First dose on Mon09/25/24 at 0900 0922 (Given - Provider: Vi Clancy RN) 925 (Given - Provider: Trini Bermeo, RN) metoprolol tartrate (LOPRESSOR) tablet 25 mg 25 mg, Oral, 2 times daily, First dose on Mon09/25/24 at 0900 0925 (Given - Provider: Vi Clancy RN)2015 (Given - Provider: Bryan Mustafa, MCKAYLA) 925 (Given - Provider: Trini Bermeo, RN) mometasone-formoterol (DULERA) 100-5 mcg/actuation inhaler 2 puff 2 puff, Inhalation, 2 times daily (RT), First dose on Mon09/25/24 at 0900 0925 (Given - Provider: Vi Clancy, MCKAYLA)2016 (Given - Provider: Bryan Mustafa, MCKAYLA) 925 (Given - Provider: Trini Bermeo, RN) multivitamin (THERAGRAN) per tablet 1 tablet 1 tablet, Oral, Daily, First dose on Mon09/25/24 at 0900 0922 (Given - Provider: Vi Clancy RN) 926 (Given - Provider: Trini Bermeo, RN) OLANZapine (ZYPREXA) tablet 10 mg 10 mg, Oral, Nightly, First dose on Mon09/25/24 at 0450, May cause QT interval prolongation. 0603 (Given - Provider: Vikki Pollard, RN - Comment: Pt was in ED)2015 (Given - Provider: Bryan Mustafa, MCKAYLA) ondansetron (ZOFRAN) injection 4 mg (COMPLETED) 4 mg, Intravenous, Once, On Mon09/24/24 at 2300, For 1 dose 2303 (Given - Provider: Casey Cabrales, MCKAYLA) pantoprazole (PROTONIX) EC tablet 40 mg 40 mg, Oral, Daily, First dose on Mon09/25/24 at 0900, DO NOT CRUSH OR CHEW. 09 (Given - Provider: Vi Clancy, MCKAYLA) 09 (Given - Provider: Trini Bermeo RN) PHENobarbital injection 143 mg (COMPLETED)(Linked Group 1) 143 mg (rounded from 143.4 mg = 3 mg/kg 47.8 kg [place] weight), Intramuscular, Every 3 hours, First dose on Mon09/25/24 at 0325, For 2 doses, If volume exceeds 2 mL please draw up dose in multiple syringes. VESICANT, Does patient require REDUCED or STANDARD dosing regimen: STANDARD regimen (NO known risk factors), Standard Therapy Guidelines: Patient does not have risk factors: Less than 65 without respiratory impairment (i.e. COPD, Pneumonia, Rib Fractures), concurrent benzodiazepines or hepatic dysfunction and should receive full dose (10 mg/kg) OR has clinical justification for full dose 0251 (Given - Provider: Airam Hernandez RN)0604 (Given - Provider: Vikki Pollard RN) PHENobarbital injection 195 mg (COMPLETED)(Linked Group 1) 195 mg (rounded from 191.2 mg = 4 mg/kg 47.8 kg [place] weight), Intramuscular, Once, On Mon09/25/24 at 0025, For 1 dose, If volume exceeds 2 mL please draw up dose in multiple syringes. VESICANT, Does patient require REDUCED or STANDARD dosing regimen: STANDARD regimen (NO known risk factors), Standard Therapy Guidelines: Patient does not have risk factors: Less than 65 without respiratory impairment (i.e. COPD, Pneumonia, Rib Fractures), concurrent benzodiazepines or hepatic dysfunction and should receive full dose (10 mg/kg) OR has clinical justification for full dose 0043 (Given - Provider: Airam Hernandez RN) sodium chloride (PF) (NS) flush 5 mL(Linked Group 2) 5 mL, Intravenous, Every 8 hours scheduled, First dose on Mon09/25/24 at 0600, Saline lock 0609 (Given - Provider: Vikki Pollard RN)1400 (Not Given - Provider: Vi Clancy RN - Reason: Order parameters not met)2100 (Given - Provider: Bryan Mustafa RN) 0600 (Canceled Entry - Provider: Bryan Mustafa RN)1400 (Canceled Entry - Provider: Trini Bermeo, RN) sodium chloride 0.9% (NS) bolus 1,000 mL (COMPLETED) 1,000 mL, Intravenous, at 983.6 mL/hr, Once, On Mon09/24/24 at 2230, For 1 dose 2303 (New Bag - Provider: Casey Cabrales RN) 0004 (Stopped - Provider: Airam Hernandez RN) sodium chloride 0.9% (NS) bolus 1,000 mL (COMPLETED) 1,000 mL, Intravenous, at 500 mL/hr, Once, On Mon09/25/24 at 0450, For 1 dose 0617 (New Bag - Provider: Vikki Pollard RN - Comment: pt was in ED) thiamine (B-1) injection 200 mg (CANCELED) 200 mg, Intravenous, Daily (in the afternoon), First dose on Mon09/24/24 at 2230, For 5 doses, Administer at a rate of 200 mg/minute if IV Push 2302 (Given - Provider: Casey Cabrales RN) thiamine (B-1) injection 200 mg 200 mg, Intravenous, Daily (in the afternoon), First dose on Mon09/25/24 at 1300, For 5 doses, Administer at a rate of 200 mg/minute if IV Push 1238 (Given - Provider: Vi Clancy, MCKAYLA) 1322 (Given - Provider: Trini Bermeo, RN) PRN Medication Order 09/24/2024 09/25/2024 09/26/2024 acetaminophen (TYLENOL) tablet 650 mg 650 mg, Oral, Every 6 hours PRN, headaches, mild pain, fever 100.4 F or greater, Starting on Mon09/25/24 at 0444 aluminum-magnesium hydroxide-simethicone (MAALOX PLUS) 200-200-20 mg/5 mL suspension 30 mL 30 mL, Oral, Every 4 hours PRN, indigestion, Starting on Mon09/25/24 at 0444 hydrOXYzine (ATARAX) tablet 50 mg 50 mg, Oral, Every 6 hours PRN, anxiety, Starting on Mon09/25/24 at 0444 1245 (Given - Provider: Vi Clancy RN) ipratropium-albuteroL (DUO-NEB) 0.5-2.5 mg/3 ml nebulizer solution 3 mL 3 mL, Inhalation, Every 4 hours PRN (RT), wheezing, shortness of breath, Starting on Mon09/25/24 at 0457 nitroGLYCERIN (NITROSTAT) SL tablet 0.4 mg 0.4 mg, Sublingual, Every 5 min PRN, chest pain, Starting on Mon09/25/24 at 0444, For chest pain. May give up to 3 doses. Call physician for chest pain unrelieved by Nitroglycerin, or recurrent chest pain. DO NOT CRUSH OR CHEW. ondansetron (ZOFRAN) injection 4 mg(Linked Group 3) 4 mg, Intravenous, Every 6 hours PRN, nausea, vomiting, Starting on Mon09/25/24 at 0444, [] Use oral route first, if tolerated. [] Use as first line antiemetic. ondansetron (ZOFRAN-ODT) disintegrating tablet 4 mg(Linked Group 3) 4 mg, Oral, Every 6 hours PRN, nausea, vomiting, Starting on Mon09/25/24 at 0444, [] Use oral route first, if tolerated. [] Use as first line antiemetic. Formulation requires tablet remain in sealed package until immediately prior to dose being administered. PHENobarbital injection 65 mg 65 mg, Intramuscular, Every 6 hours PRN, Two of the following: SBP greater than 160 or DBP greater than 100, Significant agitation (RASS greater than +2), HR greater than 110, Diaphoresis, tremors, Hallucinations, Starting on Mon09/25/24 at 1606, For 102 hours, VESICANT sodium chloride (PF) (NS) flush 5 mL(Linked Group 4) 5 mL, Intravenous, As needed, line care, Starting on Mon09/24/24 at 2228 sodium chloride (PF) (NS) flush 5 mL(Linked Group 2) 5 mL, Intravenous, As needed, line care, Starting on Mon09/25/24 at 0444 sodium chloride 0.9% (NS)(Linked Group 4) 0-150 mL/hr, Intravenous, As needed, To flush line after IV infusions when no maintenance IV ordered or a compatibility issue. Infuse 20ml at the same rate as the secondary infusion, Starting on Mon09/24/24 at 2228, Run as Primary IV. NOT intended for KVO. sodium chloride 0.9% (NS)(Linked Group 2) 0-150 mL/hr, Intravenous, As needed, To flush line after IV infusions when no maintenance IV ordered or a compatibility issue. Infuse 20ml at the same rate as the secondary infusion, Starting on Mon09/25/24 at 0444, Run as Primary IV. NOT intended for KVO. Linked Groups Order Group 1: PHENobarbital injection 195 mg (COMPLETED)Jump to med 195 mg (rounded from 191.2 mg = 4 mg/kg 47.8 kg [place] weight), Intramuscular, Once, On Mon09/25/24 at 0025, For 1 dose, If volume exceeds 2 mL please draw up dose in multiple syringes. VESICANT, Does patient require REDUCED or STANDARD dosing regimen: STANDARD regimen (NO known risk factors), Standard Therapy Guidelines: Patient does not have risk factors: Less than 65 without respiratory impairment (i.e. COPD, Pneumonia, Rib Fractures), concurrent benzodiazepines or hepatic dysfunction and should receive full dose (10 mg/kg) OR has clinical justification for full dose Followed by PHENobarbital injection 143 mg (COMPLETED)Jump to med 143 mg (rounded from 143.4 mg = 3 mg/kg 47.8 kg [place] weight), Intramuscular, Every 3 hours, First dose on Mon09/25/24 at 0325, For 2 doses, If volume exceeds 2 mL please draw up dose in multiple syringes. VESICANT, Does patient require REDUCED or STANDARD dosing regimen: STANDARD regimen (NO known risk factors), Standard Therapy Guidelines: Patient does not have risk factors: Less than 65 without respiratory impairment (i.e. COPD, Pneumonia, Rib Fractures), concurrent benzodiazepines or hepatic dysfunction and should receive full dose (10 mg/kg) OR has clinical justification for full dose Followed by PHENobarbitaL tablet 64.8 mg (CANCELED) 64.8 mg, Oral, Every 12 hours, First dose on Mon09/25/24 at 1825, For 2 doses Followed by PHENobarbitaL tablet 32.4 mg (CANCELED) 32.4 mg, Oral, Every 12 hours, First dose on [place] 09/26/24 at 1822, For 2 doses Followed by PHENobarbitaL tablet 32.4 mg (CANCELED) 32.4 mg, Oral, Every 24 hours, First dose on Mon09/28/24 at 0625, For 1 dose Group 2: Saline lock IV (CANCELED) Routine, Continuous, Starting on Mon09/25/24 at 0445, Until Specified And sodium chloride (PF) (NS) flush 5 mLJump to med 5 mL, Intravenous, As needed, line care, Starting on Mon09/25/24 at 0444 And sodium chloride (PF) (NS) flush 5 mLJump to med 5 mL, Intravenous, Every 8 hours scheduled, First dose on Mon09/25/24 at 0600, Saline lock And sodium chloride 0.9% (NS)Jump to med 0-150 mL/hr, Intravenous, As needed, To flush line after IV infusions when no maintenance IV ordered or a compatibility issue. Infuse 20ml at the same rate as the secondary infusion, Starting on Mon09/25/24 at 0444, Run as Primary IV. NOT intended for KVO. Group 3: ondansetron (ZOFRAN-ODT) disintegrating tablet 4 mgJump to med 4 mg, Oral, Every 6 hours PRN, nausea, vomiting, Starting on Mon09/25/24 at 0444, [] Use oral route first, if tolerated. [] Use as first line antiemetic. Formulation requires tablet remain in sealed package until immediately prior to dose being administered. Or ondansetron (ZOFRAN) injection 4 mgJump to med 4 mg, Intravenous, Every 6 hours PRN, nausea, vomiting, Starting on Mon09/25/24 at 0444, [] Use oral route first, if tolerated. [] Use as first line antiemetic. Group 4: Insert peripheral IV (COMPLETED) IBRAHIMA, Once, On Mon09/24/24 at 2230, For 1 occurrence And Saline lock IV (CANCELED) IBRAHIMA, Once, On Mon09/24/24 at 2230, For 1 occurrence And sodium chloride (PF) (NS) flush 5 mLJump to med 5 mL, Intravenous, As needed, line care, Starting on Mon09/24/24 at 2228 And sodium chloride 0.9% (NS)Jump to med 0-150 mL/hr, Intravenous, As needed, To flush line after IV infusions when no maintenance IV ordered or a compatibility issue. Infuse 20ml at the same rate as the secondary infusion, Starting on Mon09/24/24 at 2228, Run as Primary IV. NOT intended for KVO. Scheduled Medication Order 10/01/2024 10/02/2024 10/03/2024 ondansetron (PF) (ZOFRAN) injection 4 mg (COMPLETED) 4 mg, intravenous, Once, On [place] 10/03/24 at 0622, For 1 dose 0658 (Given - Provid er: Valentina Turner RN) sodium chloride 0.9 % bolus 1,000 mL (COMPLETED) 1,000 mL, intravenous, at 2,000 mL/hr, Administer over 30 Minutes, Once, On [place] 10/03/24 at 0622, For 1 dose 0658 (New Bag - Prov ider: Valentina Turner RN)0914 (Stopped - Provider: Valentina Turner RN) Scheduled Medication Order 10/03/2024 10/04/2024 10/05/2024 cefTRIAXone (ROCEPHIN) 1,000 mg in sterile water 10 mL IV syringe (COMPLETED) 1,000 mg, IntraVENous, Once, On 10/05/24 at 1930, For 1 dose, Administer as slow IV Push over 5 mins Reconstitute 1 g vials with 9.6 mL of designated diluent to produce a 100 mg/mL solution. 1940 (Given - Provid er: Neelima Carrizales RN) famotidine (PEPCID) 20 MG/2ML 20 mg in sodium chloride (PF) 0.9 % 10 mL injection (COMPLETED) 20 mg, IntraVENous, ONCE, 1 dose, On 10/05/24 at 1845, IV Push over minimum of 2 minutes - Dilute with 10 mL NS 190 (Given - Provid er: Raine Pozo RN) ondansetron (ZOFRAN) injection 4 mg (COMPLETED) 4 mg, IntraVENous, ONCE, 1 dose, On 10/05/24 at 1845 190 (Given - Provid er: Raine Pozo RN) potassium chloride (KLOR-CON M) extended release tablet 40 mEq (COMPLETED) 40 mEq, Oral, ONCE, 1 dose, On 10/05/24 at 2030, Do not crush, chew, or suck on tablet. Tablet may also be broken in half and each half swallowed separately. 2042 (Given - Provid er: Raine Pozo RN) sodium chloride 0.9 % bolus 1,000 mL (COMPLETED) 1,000 mL (9 mL/kg), IntraVENous, at 1,000 mL/hr, Administer over 1 Hours, ONCE, On 10/05/24 at 1845, For 1 dose 1899 (New Bag - Prov ider: Raine Pozo RN)2041 (Stopped - Provider: Raine Pozo RN) Scheduled Medication Order 10/27/2024 10/28/2024 10/29/2024 famotidine (PEPCID) 20 MG/2ML 20 mg in sodium chloride (PF) 0.9 % 10 mL injection (COMPLETED) 20 mg, IntraVENous, ONCE, 1 dose, On 10/29/24 at 1145, IV Push over minimum of 2 minutes - Dilute with 10 mL NS 121 (Given - Provid er: Armida Jewell RN) morphine injection 4 mg (COMPLETED) 4 mg, IntraVENous, NOW, 1 dose, On 10/29/24 at 1145, If oral and IV narcotics ordered, use oral first and only use IV if oral is ineffective or cannot take oral. Do Not give oral and IV within 1 hour of each other unless specifically ordered. 1212 (Given - Provid er: Armida Jewell RN) ondansetron (ZOFRAN) injection 4 mg (COMPLETED) 4 mg, IntraVENous, ONCE, 1 dose, On 10/29/24 at 1145 1212 (Given - Provid er: Armida Jewell RN) sodium chloride 0.9 % bolus 1,000 mL (COMPLETED) 1,000 mL (9.18 mL/kg), IntraVENous, at 495.9 mL/hr, Administer over 121 Minutes, ONCE, On 10/29/24 at 1145, For 1 dose 1303 (New Bag - Prov ider: Armida Jewell RN)1510 (Stopped - Provider: Armida Jewell RN) sodium chloride 0.9 % bolus 100 mL (COMPLETED) 100 mL (0.918 mL/kg), IntraVENous, at 200 mL/hr, Administer over 0.5 Hours, ONCE, On Mon10/29/24 at 1300, For 1 dose 1300 (New Bag - Prov ider: Fatoumata Aguero)1358 (Stopped - Provider: Armida Jewell RN) PRN Medication Order 10/27/2024 10/28/2024 10/29/2024 iopamidol (ISOVUE-370) 76 % injection 75 mL (COMPLETED) 75 mL, IntraVENous, IMG ONCE PRN, 1 dose, Starting on Mon10/29/24 at 1251, Until Mon10/29/24 at 1259, Other 1259 (Given - Provid er: Fatoumata Aguero) sodium chloride flush 0.9 % injection 10 mL 10 mL, IntraVENous, PRN, Starting on Mon10/29/24 at 1251, Until Discontinued, Line Care 1259 (Given - Provid er: Fatoumata Aguero) Ordered Prescriptions (unrec ognized section and content) Prescription Sig Dispense Quantity Refills Last Filled Start Date End Date Boric Acid [address] 1 suppository vaginally in the morning and at bedtime for 3 days 6 suppository 5 10/09/19 25 cephALEXin (KEFLEX) 500 MG capsule Take 1 capsule by mouth 2 times daily for 7 days 14 capsule 5 10/13/19 25 Prescription Sig Dispense Quantity Refills Last Filled Start Date End Date ondansetron (ZOFRAN-ODT) 4 MG disintegrating tablet Take 1 tablet by mouth 3 times daily as needed for Nausea or Vomiting 21 tablet 10/29/2024 dicyclomine (BENTYL) 20 MG tablet Take 1 tablet by mouth every 6 hours as needed (Pain, Cramping) 20 tablet 10/29/2024 pantoprazole (PROTONIX) 40 MG tablet Take 1 tablet by mouth every morning (before breakfast) 30 tablet 10/29/2024 famotidine (PEPCID) 40 MG tablet Take 1 tablet by mouth daily 30 tablet 10/29/2024 FOR RECORDS PERTAINING TO PATIENTS WHO ARE [...] BE BASED ON THE PRIMARY CLINICAL RECORDS. [facility] [employer] [facility]. provides no warranty or guarantee of the accuracy or completeness of information in this document.
--- NOTE | 2024-11-16 05:17 | ED.VIS.GI ---
HPI HPI - GI History of Present Illness Chief Complaint: Nausea/Vomiting Informant: patient and spouse/S.O. Narrative Narrative: Patient is a 24-year-old female presenting with emesis and nausea. - Reports emesis for the past few hours. - Describes emesis as containing little strings of blood and appearing oily. - Denies melena. - Experiences nausea and emesis if she does not take Pepcid or omeprazole daily. - Unable to take medications today due to being locked out of her house. - Consumes alcohol regularly, which exacerbates symptoms. PFSH PFS Medical History Hypertension Substance abuse History of bipolar disorder History of schizophrenia Schizo affective schizophrenia Bipolar 1 disorder Alcohol abuse PTSD (post-traumatic stress disorder) Depression Anxiety Home Medications ?Medication ?Instructions ?Recorded ?Last Taken ?Type albuterol sulfate 90 mcg/actuation 2 puff inhalation Q6H PRN PRN 07/14/24 Unknown History aerosol inhaler wheezing losartan 50 mg tablet 50 mg PO DAILY 07/14/24 Unknown History olanzapine 5 mg tablet 5 mg PO QHS 07/14/24 Unknown History omeprazole 20 mg capsule,delayed 20 mg PO DAILY 07/14/24 Unknown History release Allergy/AdvReac Type Severity Reaction Status Date / Time Penicillins (PCN) Allergy Hives Verified 11/16/24 04:17 pine nut Allergy Hives Verified 11/16/24 04:17 Social History (Updated 11/16/24 @ 05:[address] Bry Bravo MD) Smoking Status: Current every day smoker tobacco type: cigarettes and e-cigarettes alcohol intake: current alcohol intake frequency: 3 or more drinks per day substance use type: methamphetamine ROS ROS ED Constitutional Constitutional ED: Denies chills or fever(s) Eyes Eyes: Denies change in vision or diplopia ENT ENT ED: Denies rhinorrhea or sore throat Cardiovascular Cardiovascular: Denies chest pain or palpitations Respiratory/Chest Respiratory/Chest: Denies cough or dyspnea Gastrointestinal Gastrointestinal: Reports hematemesis, nausea and vomiting; Denies abdominal pain, diarrhea, hematochezia or melena Genitourinary Genitourinary ED: Denies dysuria or hematuria Musculoskeletal Musculoskeletal: Denies back pain or neck pain Integumentary Denies abscess or rash Neurologic Neurologic: Denies headache(s), paresthesias or weakness Psychiatric Psychiatric: Denies anxiety or suicidal thoughts EXAM Physical Exam Const Vital Signs: 11/16/24 04:17 Temperature 98.1 F Temperature Source Oral Pulse Rate 107 H Respiratory Rate 18 Blood Pressure 141/71 H Blood Pressure Mean 94 Pulse Ox 100 Positive well nourished and well developed General Appearance ED: well developed and NAD HEENT Reports moist mucous membranes normocephalic and atraumatic Eyes PERRL and EOMs intact bilaterally Neck full ROM and supple Resp normal respiratory effort and clear to auscultation bilaterally Cardio regular rate, regular rhythm and no murmurs GI non-tender and non-distended Auscultation: normoactive bowel sounds Palpation: soft Back/Spine no CVA tenderness General Back: other FROM Extremity normal to inspection General Extremety ED: Negative for edema, pulses abnormal or tenderness General Extremity: Negative for edema or pulses abnormal Neuro oriented x3, CN's II-XII intact bilaterally, no sensory deficits noted and gait normal Sensorium / Orientation: awake and alert Motor Exam: strength 5/5 throughout Psych mental status grossly normal and thought process normal Skin no rashes or lesions noted and no wounds MDM MDM MDM Narrative Medical decision making narrative: Assessment: The patient is a 24-year-old female presenting for epigastric burning, nausea, and several hours of non-bloody emesis with occasional small streaks of blood after heavy alcohol intake. Abdomen is soft, non-tender, and non-distended; vitals stable; lungs clear; heart regular. She reports inability to access her usual omeprazole/Pepcid due to homelessness. Given the clear temporal association with recent drinking and prior similar episodes, alcoholic gastritis is the most likely diagnosis. Plan: - Administered oral Pepcid as requested. - Administered Zofran for nausea. - Provided oral fluids in ED; patient tolerating well. - Discharged per patient request once symptoms improved and tolerating PO. Reevaluations: - Patient re-evaluated after medications; reports symptomatic relief, tolerating oral fluids, and requests discharge. History & Record Review Additional record(s) reviewed:: Prior labs (2 days ago hemoglobin normal 13.4) Discharge Plan Triage Chief Complaint: Nausea/Vomiting ED Provider: Bry Bravo Dx/Rx/DC Orders Clinical Impression: Acute alcoholic gastritis, Vomiting Instructions: ED Gastritis (Adult) Prescriptions: No Action losartan 50 mg tablet 50 mg PO DAILY albuterol sulfate 90 mcg/actuation HFA aerosol inhaler 2 puff inhalation Q6H PRN PRN (Reason: wheezing) olanzapine 5 mg tablet 5 mg PO QHS omeprazole 20 mg capsule,delayed release(DR/EC) 20 mg PO DAILY Primary Care Provider: Anthony Shepard Referrals: Anthony Shepard MD [Primary Care Provider, Family Practice] Print Language: [place]ian Disposition Disposition: Home, Self Care
== END 2024-11-16 05:20 | disposition home or self-care (01) ==
PROVIDERS: Emergency Provider Emergency Medicine; PCP Family Medicine; Visit Provider Emergency Medicine
DX: K29.20 Alcoholic gastritis without bleeding (principal); F10.10 Alcohol abuse, uncomplicated; Y90.9 Presence of alcohol in blood, level not specified; F17.210 Nicotine dependence, cigarettes, uncomplicated; F17.290 Nicotine dependence, other tobacco product, uncomplicated; I10 Essential (primary) hypertension; Z79.899 Other long term (current) drug therapy
CPT/HCPCS: 99283